=== PATIENT | male | born 1985 | race Caucasian/White ===

== ENCOUNTER → 2018-01-16 | Outpatient (CLI) | payer OTHER ==
--- NOTE | 2018-01-16 12:48 | DIAGNOSTIC IMAGING REPORT ---
VIDEO SWALLOW CLINICAL HISTORY: 32 years-old Male presenting with AMYOTROPHIC LATERAL SCLEROSIS. TECHNIQUE: Video fluoroscopic evaluation of swallowing was performed in the AP and lateral projections in conjunction with speech pathology. The patient was administered various textures, including nectar-thick and thin liquid barium, a barium coated wafer, and barium pudding. COMPARISON: . FINDINGS: There is normal hyoid excursion and epiglottic deflection. No significant penetration or aspiration identified. Swallowing function is within normal limits. Small amount of residual noted in the valleculae and piriform sinuses with solids. Fluoroscopy dosage (mGy): Not available. Fluoroscopy time: 1.3 minutes. Number of fluoroscopic spot images: 0. IMPRESSION: 1. No aspiration identified. 2. Please see the speech pathologist report for detailed findings and recommendations. Electronically signed by: Martinez Sullivan M.D. 01/16/2018 12:46 PM Dictated Date/Time: 01/16/2018 12:44 PM
--- NOTE | 2018-01-16 18:36 | SWALLOWING EVALUATION ---
REFERRING SPEECH PATHOLOGIST: n/a HISTORY: This 32 year-old man was referred for a VFSS at [facility] in order to address c/o solid food dysphagia. The patient has a PMH significant for ALS. Currently the patient's diet level is regular. PROCEDURE: The patient was seen in the Radiology Department of [facility] for the VFSS. Cursory examination of the oral cavity revealed adequate dentition. Movement of the articulators was WNL. Pt had shortened length of utterance due to poor breath support, but was fully intelligible. The patient was seated upright in his motorized wheelchair and was viewed in the lateral plane. He was given the following boluses: 1 tsp. thin liquid barium x 2, single swallow thin liquid barium self-presented from a straw, sequential swallows of thin liquid barium self-presented from a straw, 1 tsp. nectar-thick liquid barium, single swallow nectar-thick liquid barium self-presented from a straw, 1 tsp. barium pudding, and 1 club cracker with barium pudding. RESULTS: Oral Stage: Labial seal, lingual control for oral bolus hold, and mastication were complete/WNL. There was delay in initiating lingual motion for posterior bolus transfer. No oral bolus retention. Pharyngeal swallow was initiated when the bolus head was at the posterior angle of the ramus. No significant oral-stage dysphagia, but onset of some loss of lingual control was evident. Pharyngeal Stage: No bolus between soft palate and pharyngeal wall. Laryngeal elevation, epiglottic inversion, and laryngeal vestibular closure were complete. Anterior hyoid excursion was considered partial. Diminished pharyngeal stripping wave. Incomplete distention and duration of PES opening with partial obstruction of flow. Wide band of contrast between tongue base and pharyngeal wall. Pharyngeal retention in the hypopharynx after swallowing the cracker bolus with greater than half of the bolus being retained and requiring several attempts at swallowing to clear. The patient did this independently (did not require cuing). There was no penetration or aspiration during this study. Incomplete hyoid excursion combined with weak tongue base retraction impacted the patient's ability to swallow solid/more viscous foods. SUMMARY/RECOMMENDATIONS: This patient presents with mild oral-pharyngeal dysphagia. The following is recommended: 1. Diet as tolerated. Consider choosing more slippery foods vs. foods that are dry/thick/doughy. 2. Consideration of f/u with [facility] services for dysphagia therapy. Therapy should focus on pharyngeal strengthening, effortful swallowing, and all treatments that would work toward slowing the rate of impact ALS is having on swallowing safety. A summary of the results and recommendations was discussed with the patient immediately following the study. He is very motivated to do all activities that may slow the progress of his disease process. For that reason he is an excellent therapy candidate either via outpatient treatment or home health. Thank you for referral of this patient. Please contact me at if any additional information is needed.
== END | disposition home or self-care (01) ==
LOC: C.RAD 12:02
PROVIDERS: ATTEND Nurse Practitioner
DX: G12.21 Amyotrophic lateral sclerosis (principal)

== ENCOUNTER 2020-01-05 12:20 | Inpatient (IN) ==
[2020-01-05 13:20] LABS: Basophils # (auto) 0.01 K/uL (0-0.2); Eosinophils # (auto) 0.15 K/uL (0-0.5); Eosinophils % (auto) 0.7 %; Hematocrit (blood only) 41.2 % (42-52); Hemoglobin 13.7 g/dL (14.0-18.0); Immature Granulocytes # (auto) 0.05 K/uL (0.00-0.02); Immature Granulocytes % (auto) 0.2 %; Lymphocytes # (auto) 1.77 K/uL (1.2-3.4); Lymphocytes % (auto) 8.3 %; Mean Corpuscular Hemoglobin 28.7 pg (25-34); Mean Corpuscular Hgb Conc 33.3 g/dL (32-36); Mean Corpuscular Volume 86.2 fL (80-100); Mean Platelet Volume 9.1 fL (7.4-10.4); Monocytes % (auto) 5.6 %; Neutrophils # (auto) 18.14 K/uL (1.4-6.5); Neutrophils % (auto) 85.2 %; Platelet Count 409 K/uL (130-400); RDW Coefficient of Variation 15.4 % (11.5-14.5); RDW Standard Deviation 48.7 fL (36.4-46.3); Red Blood Count 4.78 M/uL (4.7-6.1); White Blood Count 21.32 K/uL (4.8-10.8)
[2020-01-05 13:34] LABS: Alanine Aminotransferase 25 U/L (12-78); Albumin Level 3.3 gm/dl (3.4-5.0); Aspartate Aminotransferase 12 U/L (15-37); Blood Urea Nitrogen 12 mg/dl (7-18); Calcium 9.4 mg/dl (8.5-10.1); Carbon Dioxide 23 mmol/L (21-32); Chloride 105 mmol/L (98-107); Creatinine Clr Calc Pharmacy 554.3 ml/min; Est GFR (African American) > 150.0; Est GFR (Non-African American) > 150.0; Glucose 87 mg/dl (70-99); Potassium 3.4 mmol/L (3.5-5.1); Sodium 136 mmol/L (136-145)
[2020-01-05 13:38] LABS: Albumin Globulin Ratio 0.6 (0.9-2); Alkaline Phosphatase 69 U/L (45-117); Bilirubin,Total 0.5 mg/dl (0.2-1); Globulin 5.2 gm/dl (2.5-4.0); NT Pro B Type Natriuretic Pept 71 pg/ml (0-450); Total Protein 8.5 gm/dl (6.4-8.2); Troponin I < 0.015 ng/ml (0-0.045)
[2020-01-05 13:57] LABS: Influenza A virus by PCR Neg for Influ A (Neg); Influenza B virus by PCR Neg for Influ B (Neg)
[2020-01-05] MEDS ORDERED: PIPERACILL/TAZOBAC CONSULT ACTIVE PRN ×2 (14:04→16:06)
[2020-01-05] MEDS ORDERED: PIPERACILLIN/TAZOBACTAM 4.5 GM/120 ML BAG IV ONE (14:04)
--- NOTE | 2020-01-05 14:49 | XRay Report ---
XR chest 1V portable CLINICAL HISTORY: Shortness of breath. COMPARISON STUDY: No previous studies for comparison. FINDINGS: Lung volumes are normal. There is no pneumothorax. No definite pleural effusion is noted. L eft basilar consolidation is present. There is also right basilar opacity. There is minimal left midl gudelia opacity. There is no evidence for pulmonary edema. Cardiac size is normal. IMPRESSION: Bibasilar airspace opacities, greater on the left. The findings favor pneumonia or aspir ation pneumonitis. Atelectasis could appear similar but is considered less likely. Radiographic follo w-up is recommended. ACT 112: Negative or not required by law. Electronically signed by: Karl Jacinto M.D. 01/05/2020 2:47 PM
[2020-01-05] MEDS ORDERED: CEFEPIME 2,000 MG/20 ML VIAL IV STA (14:55)
[2020-01-05] MEDS ORDERED: ACETAMINOPHEN 1,000 MG/100 ML VIAL IV STA (14:55)
[2020-01-05] MEDS ORDERED: AZITHROMYCIN 500 MG in DEXTROSE 5% 250 ML IV STA (14:55)
--- NOTE | 2020-01-05 16:07 | Electrocardiogram Report ---
Test Reason : Blood Pressure : / mmHG Vent. Rate : 096 BPM Atrial Rate : 096 BPM P-R Int : 120 ms QRS Dur : 104 ms QT Int : 350 ms P-R-T Axes : 025 031 080 degrees QTc Int : 442 ms Normal sinus rhythm Early repolarization Normal ECG No previous ECGs available Confirmed by José Sol ([id number]) on 01/05/2020 4:07:29 PM Referred By: Confirmed By:José Sol
--- NOTE | 2020-01-05 16:29 | History & Physical Report ---
Date of Service January 05, 2020 Assessment & Plan (1) Pneumonia: Admitted with cough, sputum production and shortness of breath Elevated white count of 21,000 and chest x-ray evidence of bibasilar pneumonia Likely aspiration pneumonia but could be community-acquired as well He refused blood culture but sputum culture was sent Started with intravenous azithromycin and Zosyn Continue with his usual nebulized bronchodilators No steroid We will need periodic suctioning of sputum Will need follow-up x-ray for clearance (2) Dyspnea: Secondary to pneumonia (3) PEG (percutaneous endoscopic gastrostomy) adjustment/replacement/removal: History of dysphagia Status post PEG tube placement on 07/22/2018 He continues to eat orally at times Speech eval (4) ALS (amyotrophic lateral sclerosis): Diagnosed with a child and has been progressing Quadriplegia , complete bedbound Sleep apnea Uses his own CPAP DVT prophylaxis Subcu heparin CODE STATUS Full History of Present Illness Chief Complaint: Cough with phlegm for the last 7 days and increasing shortness of breath for 2 days Primary Care Provider: Leilani Butler Is a 34-year-old male with progressive ALS and has a PEG tube for feeding apparently noted to have cough with sputum production for the last 1 week. He has been complaining of more shortness of breath for the last 2 days. Has had increased temperature yesterday but was not documented. No chills noted. His condition has been getting worse and he was advised to come to the emergency room for further evaluation. He complains today of some pain in the lower chest milner with coughing but denies any abdominal pain nausea or vomiting. He gets tube feeding but also eats whenever he can. He is quadriplegic from ALS. He was noted to be afebrile in the emergency room with a very high white count of 21,000 and chest x-ray showed bibasilar infiltration more on the left than the right. He refused to have blood culture but he was started with intravenous Zosyn and azithromycin and was admitted to medical telemetry unit for continuation of care. Allergies Allergy/AdvReac Type Severity Reaction Status Date / Time No Known Allergies Allergy Verified 01/05/20 13:14 Home Medications Home Medications Medication Instructions Recorded Confirmed Type Pulmocare 1 ea FEEDING TUBE BID 12/02/19 01/05/20 History cholecalciferol (vitamin D3) 1,000 unit PO BID 12/02/19 01/05/20 History [Vitamin D3] coenzyme Q10 [Co Q-10] 400 mg PO QAM 12/02/19 01/05/20 History guaifenesin 1,200 mg PO BID 12/02/19 01/05/20 History ipratropium bromide 2 spray INTRANASAL BID 12/02/19 01/05/20 History lysine 1,000 mg PO QAM 12/02/19 01/05/20 History riluzole 50 mg PO Q12 12/02/19 01/05/20 History acetaminophen 325 mg PO QID PRN 01/05/20 01/05/20 History albuterol sulfate 1 inh INHALATION TID PRN 01/05/20 01/05/20 History albuterol sulfate 2.5 mg INHALATION QID PRN 01/05/20 01/05/20 History artificial tears(hypromellose) 1 drp OPHTHALMIC (EYE) BID PRN 01/05/20 01/05/20 History coenzyme Q10 400 mg PO DAILY 01/05/20 01/05/20 History cranberry 500 mg PO DAILY 01/05/20 01/05/20 History esfizmqbicv-EoIn-qsc A-D-aloe [A 1 applic TOPICAL BID 01/05/20 01/05/20 History and D Diaper Rash Cream] hydrocortisone 1 applic TOPICAL BID PRN 01/05/20 01/05/20 History hydrocortisone 1 applic TOPICAL BID PRN 01/05/20 01/05/20 History nut.tx,spec.frm,l-fr,iron-fos 1 ea FEEDING TUBE DAILY 01/05/20 01/05/20 History [TwoCal HN] nystatin 1 applic TOPICAL BID 01/05/20 01/05/20 History nystatin 1 applic TOPICAL BID 01/05/20 01/05/20 History omega 5-ljy-mae-fish oil 2 cap PO BID 01/05/20 01/05/20 History polyethylene glycol 3350 17 g PO DAILY 01/05/20 01/05/20 History zinc oxide 1 applic TOPICAL DAILY PRN 01/05/20 01/05/20 History Past Med/Surg History Medical History ALS (amyotrophic lateral sclerosis) DX FEBRUARY 2014 Anxiety "TRANSITIONAL ADJUSTMENT" FOLLOWS COUNSELOR Cardiac murmur AN Dry eye syndrome Sleep apnea USES APAP DEVICE (DX WITH ALS) Slow gastric motility D/T ALS Uses feeding tube FLUSHES DAILY (NO CURRENT USE FOR FEEDING) Surgical History History of herniorrhaphy History of tooth extraction S/P percutaneous endoscopic gastrostomy (PEG) tube placement Family History Mother Family history of diabetes mellitus Social History Preferred Language: Vincentian Communication Ability: Impaired Chainer Required: No Beliefs That Will Affect Care: None Current Living Situation: Spouse Feels Safe at Home: Yes Smoking Status: Never smoker Second Hand Exposure: No ; Hx Alcohol Use: Yes Alcohol type: beer Hx Substance Use: No Review of Systems Review of Systems: All systems reviewed & are unremarkable except as noted in HPI & below Physical Exam Physical Exam: Lying in bed with moderate distress due to shortness of breath and cough Constitutional: well developed, well nourished, + acute distress (Due to shortness of breath), + ill appearing and + obese Eyes: PERRL, conjunctivae normal, anicteric sclerae ENMT: external ear and nose normal, oropharynx normal Neck: trachea midline, no thyromegaly Respiratory: + respiratory distress and + uses accessory muscles Auscultation: + diminished lung sounds and + crackles (Bibasally more on the left than the right) Cardiovascular: Rate/Rhythm: regular rate and regular rhythm Heart Sounds: no murmur Gastrointestinal (Abdomen): Inspection/Auscultation: abdomen normal to inspection and normal bowel sounds PEG tube site is unremarkable Musculoskeletal: No acute arthritis involving any joint Neurologic: Alert, awake and oriented x3, has ALS and is bedbound with quadriplegia Lymphatic: no cervical or axillary lymphadenopathy Results & Data Vital Signs (Past 12 Hours) Vital Signs Temp Pulse Pulse Resp BP BP Pulse Ox 01/05/20 15:47 93 H 18 93/65 L 97 01/05/20 14:11 101 H 16 113/76 96 01/05/20 12:38 37.1 C 100 H 24 119/85 3 L Laboratory Results Short CBC 01/05/20 Range/Units 13:05 WBC 21.32 H (4.8-10.8) K/uL Hgb 13.7 L (14.0-18.0) g/dL Hct 41.2 L (42-52) % Plt Count 409 H (130-400) K/uL BMP 01/05/20 13:05 Sodium 136 Potassium 3.4 L Chloride 105 Carbon Dioxide 23 BUN 12 Creatinine 0.21 L Glucose 87 Calcium 9.4 Cardiac Enzymes 01/05/20 Range/Units 13:05 Troponin I < 0.015 (0-0.045) ng/ml Liver Function 01/05/20 Range/Units 13:05 Total Bilirubin 0.5 (0.2-1) mg/dl AST 12 L (15-37) U/L ALT 25 (12-78) U/L Alkaline Phosphatase 69 (45-117) U/L Albumin 3.3 L (3.4-5.0) gm/dl Medications Administered Current Inpatient Medications Heparin Sodium (Porcine) (Heparin Sodium (Porcine)) 5,000 units SQ Q12 [facility] Stop: 02/04/20 20:59 Azithromycin 500 mg/ Dextrose 255 mls @ 127.5 mls/hr IV NOW STA Stop: 01/05/20 16:54 Last Admin: 01/05/20 15:34 Dose: 127.5 mls/hr Documented by: Piperacillin Sod/Tazobactam Sod (Zosyn) 4.5 gm in 120 mls @ 240 mls/hr IV Q8H [facility] Stop: 01/12/20 16:14 Azithromycin 500 mg/ Dextrose 255 mls @ 125 mls/hr IV DAILY [facility] Stop: 01/13/20 08:59 Miscellaneous Information (Consult) 1 ea N/A UD PRN PRN Reason: Consult Stop: 02/04/20 16:05 Code Status & VTE Plan VTE Prophylaxis Plan VTE Prophylaxis will be ordered: Yes (1) Dyspnea Dyspnea type: unspecified Qualified Code(s): R06.00 - Dyspnea, unspecified (2) Pneumonia Laterality: left Lung location: unspecified part of lung Pneumonia type: due to unspecified organism Qualified Code(s): J18.9 - Pneumonia, unspecified organism
[2020-01-05] MEDS ORDERED: FAMOTIDINE 20MG/5ML IV PUSH IV STA (17:25)
[2020-01-05] MEDS ORDERED: DiphenhydrAMINE HCL 50 MG/ML VIAL IV STA (17:25)
[2020-01-05] MEDS ORDERED: methylPREDNISolone 125 MG/2 ML VIAL IV STA (17:25)
[2020-01-05] MEDS ORDERED: PIPERACILLIN/TAZOBACTAM 4.5 GM/120ML D5W ONE (17:34)
[2020-01-05] MEDS ORDERED: ACETAMINOPHEN 325 MG TAB PO PRN (19:15)
[2020-01-05] MEDS ORDERED: ALBUTEROL HFA 8 GM INHALER INH PRN (19:15)
[2020-01-05] MEDS ORDERED: HYDROCORTISONE 2.5% CR 30 GM TUBE EXT PRN (19:15)
[2020-01-05] MEDS ORDERED: HYDROCORTISONE TOP PRN (19:15)
[2020-01-05] MEDS ORDERED: ARTIFICIAL TEARS OP PRN (19:23)
[2020-01-05] MEDS ORDERED: OMEGA-3 (PURIFIED FISH OIL) 1 GM CAP PO SCH (19:45)
[2020-01-05] MEDS ORDERED: BUTT PASTE (ZINC OXIDE 16%) 171 APPLN/57 GM JAR EXT PRN (19:47)
[2020-01-05] MEDS: PIPERACILLIN/TAZOBACTAM 3.375 GM/115 ML BAG IV SCH (20:25)
[2020-01-05] MEDS ORDERED: NUTRITIONAL SUPPLEMENT feeding tube SCH (21:00)
[2020-01-05] MEDS ORDERED: APPL TOP SCH (21:00)
[2020-01-05] MEDS ORDERED: [UNRECOGNIZED DRUG - OTHER] TOP SCH (21:00)
[2020-01-05] MEDS: guaiFENesin 600 MG TABCR PO SCH (21:34)
[2020-01-05] MEDS: CHOLECALCIFEROL 1,000 UNITS 25 MCG TAB PO SCH (21:34)
[2020-01-05] MEDS: IPRATROPIUM BROMIDE NASAL SPRAY 0.06% 15ML NAE SCH (21:37)
[2020-01-05] MEDS: HEPARIN SOD 5,000 UNIT/0.5 ML VIAL SQ SCH (21:46)
[2020-01-05] MEDS: NYSTATIN POWDER 15GM BTL EXT SCH (21:46)
[2020-01-05] MEDS: OMEGA-3 (PURIFIED FISH OIL) 1 GM CAP PO SCH (21:49)
[2020-01-05] MEDS ORDERED: Nursing to Pharmacy Communication ONE (22:04)
[2020-01-06] MEDS: PIPERACILLIN/TAZOBACTAM 3.375 GM/115 ML BAG IV SCH (04:47)
[2020-01-06] MEDS: guaiFENesin SUGAR FREE 200 MG/10 ML UDC PO SCH ×3 (05:58→17:30)
[2020-01-06] MEDS: ALBUTEROL 0.083% NEBU SOLN 3 ML VIAL INH PRN (06:16)
[2020-01-06 06:29] LABS: Hematocrit (blood only) 39.5 % (42-52); Hemoglobin 13.2 g/dL (14.0-18.0); Immature Granulocytes # (auto) 0.02 K/uL (0.00-0.02); Immature Granulocytes % (auto) 0.2 %; Lymphocytes # (auto) 1.19 K/uL (1.2-3.4); Lymphocytes % (auto) 14.5 %; Mean Corpuscular Hemoglobin 28.9 pg (25-34); Mean Corpuscular Hgb Conc 33.4 g/dL (32-36); Mean Corpuscular Volume 86.4 fL (80-100); Mean Platelet Volume 9.3 fL (7.4-10.4); Monocytes # (auto) 0.19 K/uL (0.11-0.59); Monocytes % (auto) 2.3 %; Neutrophils # (auto) 6.83 K/uL (1.4-6.5); Platelet Count 400 K/uL (130-400); RDW Coefficient of Variation 15.3 % (11.5-14.5); RDW Standard Deviation 48.6 fL (36.4-46.3); Red Blood Count 4.57 M/uL (4.7-6.1); White Blood Count 8.23 K/uL (4.8-10.8)
[2020-01-06 07:08] LABS: Alanine Aminotransferase 25 U/L (12-78); Albumin Level 3.3 gm/dl (3.4-5.0); Aspartate Aminotransferase 8 U/L (15-37); BUN Creatinine Ratio 47.1 (10-20); Blood Urea Nitrogen 13 mg/dl (7-18); Calcium 9.7 mg/dl (8.5-10.1); Carbon Dioxide 24 mmol/L (21-32); Chloride 105 mmol/L (98-107); Creatinine Clr Calc Pharmacy 431.1 ml/min; Est GFR (African American) > 150.0; Est GFR (Non-African American) > 150.0; Glucose 144 mg/dl (70-99); Magnesium 2.5 mg/dl (1.8-2.4); Potassium 3.7 mmol/L (3.5-5.1); Sodium 137 mmol/L (136-145)
[2020-01-06 07:11] LABS: Albumin Globulin Ratio 0.6 (0.9-2); Alkaline Phosphatase 64 U/L (45-117); Bilirubin,Total 0.5 mg/dl (0.2-1); Globulin 5.3 gm/dl (2.5-4.0); Phosphorus 3.4 mg/dl (2.5-4.9); Total Protein 8.6 gm/dl (6.4-8.2)
[2020-01-06] MEDS: IPRATROPIUM BROMIDE NASAL SPRAY 0.06% 15ML NAE SCH ×2 (08:28→20:32)
[2020-01-06] MEDS: POLYETHYLENE (MIRALAX) 17 GM PACK PO SCH (08:28)
[2020-01-06] MEDS: CHOLECALCIFEROL 1,000 UNITS 25 MCG TAB PO SCH ×2 (08:29→20:32)
[2020-01-06] MEDS: OMEGA-3 (PURIFIED FISH OIL) 1 GM CAP PO SCH ×2 (08:30→20:32)
[2020-01-06] MEDS: HEPARIN SOD 5,000 UNIT/0.5 ML VIAL SQ SCH ×2 (08:31→20:33)
[2020-01-06] MEDS: NYSTATIN POWDER 15GM BTL EXT SCH ×2 (08:32→20:33)
[2020-01-06] MEDS ORDERED: NON-FORMULARY MEDICATION (Coenzyme Q10 400 MG) PO SCH (09:00)
[2020-01-06] MEDS ORDERED: NON-FORMULARY MEDICATION (Lysine 1,000 MG) PO SCH (09:00)
[2020-01-06] MEDS ORDERED: NON-FORMULARY MEDICATION (Coenzyme Q10 [Co Q-10] 400 MG) PO SCH (09:00)
[2020-01-06] MEDS ORDERED: NON-FORMULARY MEDICATION (Cranberry 500 MG) PO SCH (09:00)
[2020-01-06] MEDS ORDERED: [UNRECOGNIZED DRUG - OTHER] feeding tube SCH (09:00)
[2020-01-06] MEDS: guaiFENesin 600 MG TABCR PO SCH ×2 (09:02→20:33)
[2020-01-06] MEDS ORDERED: cefTRIAXone SODIUM 2,000 MG in DEXTROSE 5% 50 ML IV SCH (10:00)
--- NOTE | 2020-01-06 14:39 | Hospitalist Progress Note ---
Date of Service January 06, 2020 Assessment & Plan (1) Pneumonia: Leukocytosis resolved overnight. Afebrile and clinically feels better, abx changed to Rocephin and Azithro. No blood cultures, sputum culture negative. Per Speech needs a video swallow study. Plan to de-escalate abx in am if he is still doing well. Cont periodic suctioning as needed. Cont with usual nebulized bronchodilators. CXR in 4-6 weeks to ensure complete resolution. (2) Dyspnea: Secondary to pneumonia-improved today per patient who is on his baseline supplemental oxygen. (3) PEG (percutaneous endoscopic gastrostomy) adjustment/replacement/removal: History of dysphagia 2/2 ALS Status post PEG tube placement on 07/22/2018 He continues to eat orally at times Speech eval recommends video swallow study-to be performed tomorrow. (4) ALS (amyotrophic lateral sclerosis): Quadriplegic, will discuss if home support is appropriate with other members of the care team, including Case Management. (5) DVT prophylaxis: Heparin Full Code Dispo-likely to home in next 1-2 days. Shanti Vick DO [facility] Hospitalist Admission and Anticipated Discharge Date Admission Date: January 05, 2020 Anticipated date of discharge: 01/07/20 Subjective Feels better than yesterday Quadriplegic but able to speak. Wears a nasal CPAP continuously with supplemental in order to breathe Appears to be in good spirits Afebrile, no chills, tolerating PO I discussed the nutrition status with the agricultural loan officer, who requested information regarding supplemental compatibility with his PEG Review of Systems Review of Systems: All systems reviewed & are unremarkable except as noted in Subjective Physical Exam Physical Exam: CONSTITUTIONAL: WNWD, vitals as above, generally well- appearing, quadriplegic EYES: pupils are equal and round bilaterally, normal conjunctivae, no scleral icterus ENT: external ear and nose normal, MMM, nasal CPAP in place RESPIRATORY: clear to auscultation bilaterally, no crackles, rales or wheezes, normal respiratory effort at rest CARDIOVASCULAR: regular rate and rhythm, S1 and 2 heard without murmurs, gallops or rubs, no JVD, no peripheral edema GASTROINTESTINAL: soft, nontender, nontender MUSCULOSKELETAL: head is NC/AT, quadriplegic SKIN: warm and dry NEUROLOGIC: CN 2-12 grossly intact, normal cognition and speech but has conversational dyspnea. PSYCHIATRIC: alert cooperative and oriented to person, place and time. Euthymic mood, makes good eye contact, language grossly intact Results & Data ([facility]) Vital Signs (Past 12 Hours) Vital Signs Temp Pulse Pulse Resp BP Pulse Ox 01/06/20 11:25 36.7 C 79 20 119/77 97 01/06/20 07:38 88 01/06/20 07:13 36.7 C 72 18 111/74 97 01/06/20 06:17 68 18 96 01/06/20 03:36 36.3 C L 56 L 18 110/75 97 Laboratory Results Short CBC 01/06/20 Range/Units 06:03 WBC 8.23 D (4.8-10.8) K/uL Hgb 13.2 L (14.0-18.0) g/dL Hct 39.5 L (42-52) % Plt Count 400 (130-400) K/uL BMP 01/06/20 06:03 Sodium 137 Potassium 3.7 Chloride 105 Carbon Dioxide 24 BUN 13 Creatinine 0.27 L Glucose 144 H Calcium 9.7 Liver Function 01/06/20 Range/Units 06:03 Total Bilirubin 0.5 (0.2-1) mg/dl AST 8 L (15-37) U/L ALT 25 (12-78) U/L Alkaline Phosphatase 64 (45-117) U/L Albumin 3.3 L (3.4-5.0) gm/dl Medications Administered Current Inpatient Medications Acetaminophen (Tylenol) 325 mg PO QID PRN PRN Reason: Pain Stop: 02/04/20 19:14 Albuterol (Ventolin 0.083% 2.5mg/3ml) 2.5 mg INH QID PRN PRN Reason: Shortness Of Breath Stop: 02/04/20 19:14 Last Admin: 01/06/20 06:16 Dose: 2.5 mg Documented by: Albuterol (Ventolin Hfa) 1 puffs INH TID PRN PRN Reason: Shortness Of Breath Stop: 02/04/20 19:14 Artificial Tears (Artificial Tears) 1 drops OP BID PRN PRN Reason: DRY EYES Stop: 02/04/20 19:22 Fish Oil ([place]-3 (Purified Fish Oil)) 2 gm PO BID [facility] Stop: 02/04/20 20:59 Last Admin: 01/06/20 08:30 Dose: 2 gm Documented by: Guaifenesin (Mucinex) 1,200 mg PO BID [facility] Stop: 02/04/20 20:59 Last Admin: 01/06/20 09:02 Dose: Not Given Documented by: Guaifenesin (Robitussin Sugar Free) 200 mg PO Q6 [facility] Stop: 02/05/20 05:59 Last Admin: 01/06/20 12:31 Dose: 200 mg Documented by: Heparin Sodium (Porcine) (Heparin Sodium (Porcine)) 5,000 units SQ Q12 [facility] Stop: 02/04/20 20:59 Last Admin: 01/06/20 08:31 Dose: Not Given Documented by: Hydrocortisone (Hydrocortisone 2.5%) 1 appln EXT BID PRN PRN Reason: Itching Stop: 02/04/20 19:14 Azithromycin 500 mg/ Dextrose 255 mls @ 125 mls/hr IV DAILY@1500 [facility] Stop: 01/11/20 17:03 Last Admin: 01/06/20 14:35 Dose: 125 mls/hr Documented by: Ceftriaxone Sodium 2,000 mg/ (Dextrose) 70 mls @ 100 mls/hr IV Q24H [facility]; Protocol Stop: 01/13/20 09:59 Last Infusion: 01/06/20 10:50 Dose: Infused Documented by: Ipratropium [place] (Atrovent Nasal [place] 0.06%) 2 sprays GARCIA BID [facility] Stop: 02/04/20 20:59 Last Admin: 01/06/20 08:28 Dose: 2 sprays Documented by: Miscellaneous (Order Awaiting Action) 1 ea N/A QS [facility] Stop: 02/05/20 00:00 Last Admin: 01/06/20 08:27 Dose: Not Given Documented by: Nystatin (Mycostatin) 1 appln EXT BID [facility] Stop: 02/04/20 20:59 Last Admin: 01/06/20 08:32 Dose: Not Given Documented by: Petrolatum (Butt Paste) 1 appln EXT DAILY PRN PRN Reason: IRRITATED SKIN Stop: 02/04/20 19:46 Polyethylene Glycol (Miralax Powder Packet) 17 gm PO DAILY [facility] Stop: 02/05/20 08:59 Last Admin: 01/06/20 08:28 Dose: Not Given Documented by: Vitamin D (Vitamin D3) 1,000 units PO BID [facility] Stop: 02/04/20 20:59 Last Admin: 01/06/20 08:29 Dose: 1,000 units Documented by: (1) Dyspnea Dyspnea type: unspecified Qualified Code(s): R06.00 - Dyspnea, unspecified (2) Pneumonia Laterality: left Lung location: unspecified part of lung Pneumonia type: due to unspecified organism Qualified Code(s): J18.9 - Pneumonia, unspecified organism
[2020-01-06] MEDS ORDERED: AZITHROMYCIN 500 MG in DEXTROSE 5% 250 ML IV SCH (15:00)
--- NOTE | 2020-01-06 17:09 | Emergency Department Note ---
Entered by Adela Britton acting as a scribe for History of Present Illness General Chief complaint: Shortness of Breath/Dyspnea Stated complaint: Increased shortness of breath Time Seen by Provider: 01/05/20 12:35 Source: patient and family Mode of arrival: EMS History of Present Illness Onset (ago): week(s) 1 Location: left (lung) and right (lung) Severity: similar to prior episodes Pain Consistency: + other (worsening) Quality: + other (shortness of breath) Exacerbated By: + other (lying flat) Associated symptoms: + shortness of breath and + other (Positive cold symptoms, yellow gray colored mucous, dark colored urine. Negative abnormal bowel movements. ) Treatments prior to arrival: other (supplemental oxygen) The patient is a 34 year old male presenting to the Emergency Department via EMS complaining of worsening shortness of breath starting 1 week ago. The patients family reports that the patient has ALS and has been experiencing worsening shortness of breath. They state that the patient has had cold symptoms and has been producing a yellowish gray colored mucous that they suction out. They explain that they have been suctioning out more mucous than normal. The note that the patient was hot yesterday but that they didnt take his temperature. They add that the patients urine has been dark colored but that it is normally dark. The patients family reports that the patient is supposed to be on 3L of oxygen daily but that he sometimes doesnt use it. They state that when the patient lies flat his shortness of breath worsens. They note that the patient has a bedsore on his back. They add that the patient recently went to [place] and has been exposed to sick individuals recently. The family denies abnormal bowel movements and chest pain. Patient has airway and suctioning adjuncts at home with the is familiar and competent with and they have been continuing that vigorously since his symptoms started. Home Medications Home Medications Medication Instructions Recorded Confirmed Type [facility] 1 ea FEEDING TUBE BID 12/02/19 01/05/20 History cholecalciferol (vitamin D3) 1,000 unit PO BID 12/02/19 01/05/20 History [Vitamin D3] coenzyme Q10 [Co Q-10] 400 mg PO QAM 12/02/19 01/05/20 History guaifenesin 1,200 mg PO BID 12/02/19 01/05/20 History ipratropium bromide 2 spray INTRANASAL BID 12/02/19 01/05/20 History lysine 1,000 mg PO QAM 12/02/19 01/05/20 History riluzole 50 mg PO Q12 12/02/19 01/05/20 History acetaminophen 325 mg PO QID PRN 01/05/20 01/05/20 History albuterol sulfate 1 inh INHALATION TID PRN 01/05/20 01/05/20 History albuterol sulfate 2.5 mg INHALATION QID PRN 01/05/20 01/05/20 History artificial tears(hypromellose) 1 drp OPHTHALMIC (EYE) BID PRN 01/05/20 01/05/20 History coenzyme Q10 400 mg PO DAILY 01/05/20 01/05/20 History cranberry 500 mg PO DAILY 01/05/20 01/05/20 History rddkgihgdzn-RzPt-txu A-D-aloe [A 1 applic TOPICAL BID 01/05/20 01/05/20 History and D Diaper Rash Cream] hydrocortisone 1 applic TOPICAL BID PRN 01/05/20 01/05/20 History hydrocortisone 1 applic TOPICAL BID PRN 01/05/20 01/05/20 History nut.tx,spec.frm,l-fr,iron-fos 1 ea FEEDING TUBE DAILY 01/05/20 01/05/20 History [TwoCal HN] nystatin 1 applic TOPICAL BID 01/05/20 01/05/20 History nystatin 1 applic TOPICAL BID 01/05/20 01/05/20 History omega 2-qfs-xjq-fish oil 2 cap PO BID 01/05/20 01/05/20 History polyethylene glycol 3350 17 g PO DAILY 01/05/20 01/05/20 History zinc oxide 1 applic TOPICAL DAILY PRN 01/05/20 01/05/20 History Allergies Allergy/AdvReac Type Severity Reaction Status Date / Time No Known Allergies Allergy Verified 01/05/20 13:14 Past Med/Surg History Medical History ALS (amyotrophic lateral sclerosis) DX FEBRUARY 2014 Anxiety "TRANSITIONAL ADJUSTMENT" FOLLOWS COUNSELOR Cardiac murmur AN INFANT Dry eye syndrome Sleep apnea USES APAP DEVICE (DX WITH ALS) Slow gastric motility D/T ALS Uses feeding tube FLUSHES DAILY (NO CURRENT USE FOR FEEDING) Surgical History History of herniorrhaphy History of tooth extraction S/P percutaneous endoscopic gastrostomy (PEG) tube placement Family History Mother Family history of diabetes mellitus Social History Preferred Language: Serbian Communication Ability: Effective Theatre Instructor Required: No Beliefs That Will Affect Care: None Current Living Situation: Spouse and Other Current Living Situation Comment: primary animal care provider with aids to help AM and PM care Feels Safe at Home: Yes Safety Concerns: Feels Safe At This Time Smoking Status: Never smoker Second Hand Exposure: No ; Hx Alcohol Use: No Hx Substance Use: No Review of Systems See HPI for pertinent positives & negatives. and A total of 10 systems reviewed and were otherwise negative Physical Exam Vital Signs Vital Signs - 24 hr 01/05/20 12:38 01/05/20 12:52 01/05/20 14:11 Temperature 98.8 F Temperature Source Oral Pulse Rate 100 H Pulse Rate [Left Finger] 101 H Respiratory Rate 24 16 Respiratory Effort / Characteristics Spontaneous Respiratory Depth Normal Respiratory Pattern Regular Blood Pressure 119/85 Blood Pressure [Left Arm] 113/76 Blood Pressure Mean 96 Blood Pressure Mean [Left Arm] 88 Blood Pressure Position Lying Pulse Oximetry 3 L 96 Oxygen Delivery Method Nasal Cannula Nasal Cannula BiPAP Oxygen Flow Rate 3 3 3 Sepsis Recent Fever Within 48 Hours No Sepsis New/Unexplained Change in Mental Status No Sepsis Action Taken by Nursing No Action Required GENERAL: Large face mask in place attached to oxygen. Alert, no distress, non- toxic EYE EXAM: normal conjunctiva, PERRL and EOM's grossly intact OROPHARYNX: no exudate, no erythema, lips, buccal mucosa, and tongue normal and mucous membranes are moist NECK: supple, no nuchal rigidity, no adenopathy, non-tender LUNGS: Decreased breath sounds. No wheezes, rhonchi or rales. Normal chest wall mechanics HEART: no murmurs, S1 normal and S2 normal ABDOMEN: PEG tube in place, well appearing. No surrounding erythema or drainage. Abdomen soft, non-tender, normo-active bowel sounds, no masses, no rebound or guarding. BACK: Back is symmetrical on inspection and there is no deformity, no midline tenderness, no CVA tenderness. SKIN: no rashes and no bruising EXTREMITIES: Atrophy of bilateral upper and lower extremities. Symmetric weakn ess of bilateral upper and lower extremities with minimal movement. Compression stocking in place to bilateral lower extremities. Extremities are grossly normal. No pitting edema. NEURO EXAM: Normal sensorium. Unable to perform additional assessment due to extensive upper and lower extremity weakness from ALS. No facial droop. states speech is normal. Course Course 1238: The patient was evaluated in room C3, and a complete history and physical examination were performed. 1436: I reevaluated the patient at this time. He had a vasovagal event while blood cultures were obtained. 1522: I discussed the patient's case with Kerry López PA-C. Dr. Bolivar [facility] will evaluate the patient for further management. Administered Medications Albuterol (Ventolin 0.083% 2.5mg/3ml) 2.5 mg INH QID PRN PRN Reason: Shortness Of Breath Stop: 02/04/20 19:14 Last Admin: 01/06/20 06:16 Dose: 2.5 mg Documented by: [id number] Fish Oil ([place]-3 (Purified Fish Oil)) 2 gm PO BID MYNOR Stop: 02/04/20 20:59 Last Admin: 01/06/20 08:30 Dose: 2 gm Documented by: [id number] Admin: 01/05/20 21:49 Dose: Not Given Documented by: [id number] Guaifenesin (Mucinex) 1,200 mg PO BID MYNOR Stop: 02/04/20 20:59 Last Admin: 01/06/20 09:02 Dose: Not Given Documented by: [id number] Admin: 01/05/20 21:34 Dose: 1,200 mg Documented by: [id number] Guaifenesin (Robitussin Sugar Free) 200 mg PO Q6 MYNOR Stop: 02/05/20 05:59 Last Admin: 01/06/20 12:31 Dose: 200 mg Documented by: [id number] Admin: 01/06/20 05:58 Dose: 200 mg Documented by: [id number] Heparin Sodium (Porcine) (Heparin Sodium (Porcine)) 5,000 units SQ Q12 MYNOR Stop: 02/04/20 20:59 Last Admin: 01/06/20 08:31 Dose: Not Given Documented by: [id number] Admin: 01/05/20 21:46 Dose: Not Given Documented by: [id number] Azithromycin 500 mg/ Dextrose 255 mls @ 125 mls/hr IV DAILY@1500 [facility] Stop: 01/11/20 17:03 Last Infusion: 01/06/20 16:47 Dose: 0 mls/hr Documented by: [id number] Admin: 01/06/20 14:35 Dose: 125 mls/hr Documented by: [id number] Ceftriaxone Sodium 2,000 mg/ (Dextrose) 70 mls @ 100 mls/hr IV Q24H [facility]; Protocol Stop: 01/13/20 09:59 Last Infusion: 01/06/20 10:50 Dose: 0 mls/hr Documented by: [id number] Admin: 01/06/20 09:55 Dose: 100 mls/hr Documented by: [id number] Ipratropium [place] (Atrovent Nasal [place] 0.06%) 2 sprays GARCIA BID [facility] Stop: 02/04/20 20:59 Last Admin: 01/06/20 08:28 Dose: 2 sprays Documented by: [id number] Admin: 01/05/20 21:37 Dose: 2 sprays Documented by: [id number] Miscellaneous (Order Awaiting Action) 1 ea N/A QS [facility] Stop: 02/05/20 00:00 Last Admin: 01/06/20 16:16 Dose: Not Given Documented by: [id number] Admin: 01/06/20 08:27 Dose: Not Given Documented by: [id number] Admin: 01/06/20 00:49 Dose: Not Given Documented by: [id number] Nystatin (Mycostatin) 1 appln EXT BID [facility] Stop: 02/04/20 20:59 Last Admin: 01/06/20 08:32 Dose: Not Given Documented by: [id number] Admin: 01/05/20 21:46 Dose: Not Given Documented by: [id number] Polyethylene Glycol (Miralax Powder Packet) 17 gm PO DAILY [facility] Stop: 02/05/20 08:59 Last Admin: 01/06/20 08:28 Dose: Not Given Documented by: [id number] Vitamin D (Vitamin D3) 1,000 units PO BID [facility] Stop: 02/04/20 20:59 Last Admin: 01/06/20 08:29 Dose: 1,000 units Documented by: [id number] Admin: 01/05/20 21:34 Dose: 1,000 units Documented by: [id number] Discontinued Medications Diphenhydramine HCl (Benadryl) 25 mg IV NOW STA Stop: 01/05/20 17:26 Last Admin: 01/05/20 17:35 Dose: 25 mg Documented by: [id number] Famotidine (Pepcid 20mg Iv Push) 20 mg IV ONE STA Stop: 01/05/20 17:26 Last Admin: 01/05/20 17:35 Dose: 20 mg Documented by: [id number] Piperacillin Sod/Tazobactam Sod (Zosyn) 4.5 gm in 120 mls @ 240 mls/hr IV NOW ONE Stop: 01/05/20 14:33 Last Infusion: 01/05/20 18:15 Dose: 0 mls/hr Documented by: [id number] Admin: 01/05/20 17:43 Dose: 240 mls/hr Documented by: [id number] Acetaminophen (Ofirmev) 1,000 mg in 100 mls @ 400 mls/hr IV NOW STA Stop: 01/05/20 15:09 Last Infusion: 01/05/20 15:20 Dose: 0 mls/hr Documented by: [id number] Admin: 01/05/20 15:10 Dose: 400 mls/hr Documented by: [id number] Cefepime HCl (Maxipime) 2,000 mg in 20 mls @ 5 mls/min IV NOW STA; Protocol Stop: 01/05/20 14:58 Last Admin: 01/05/20 15:33 Dose: 5 mls/min Documented by: [id number] Azithromycin 500 mg/ Dextrose 255 mls @ 127.5 mls/hr IV NOW STA Stop: 01/05/20 16:54 Last Infusion: 01/05/20 17:42 Dose: 0 mls/hr Documented by: [id number] Admin: 01/05/20 15:34 Dose: 127.5 mls/hr Documented by: [id number] Piperacillin Sod/Tazobactam Sod (Zosyn) 3.375 gm in 115 mls @ 240 mls/hr IV Q8H [facility]; Protocol Stop: 01/12/20 03:29 Last Infusion: 01/06/20 05:59 Dose: 0 mls/hr Documented by: [id number] Admin: 01/06/20 04:47 Dose: 240 mls/hr Documented by: [id number] Infusion: 01/05/20 21:50 Dose: 0 mls/hr Documented by: [id number] Admin: 01/05/20 20:25 Dose: 240 mls/hr Documented by: [id number] Methylprednisolone (Solumedrol) 125 mg IV NOW STA Stop: 01/05/20 17:26 Last Admin: 01/05/20 17:35 Dose: 125 mg Documented by: [id number] Piperacillin Sod/Tazobactam Sod (Zosyn) Confirm Administered Dose 4.5 gm .ROUTE .STK-MED ONE Stop: 01/05/20 17:35 Last Admin: 01/05/20 19:24 Dose: Not Given Documented by: [id number] Medical Decision Making Differential Diagnosis Differential diagnoses includes but is not limited to pneumonia, bronchitis, COPD/Asthma exacerbation, pneumothorax, pulmonary embolism, congestive heart failure, acute coronary syndrome. Medical Records Attestation: I reviewed the patient's medical records. Home Medications Current Medication List: was personally reviewed by me Laboratory Data Attestation: I reviewed the patient's lab results. Result diagrams: 01/06/20 06:03 01/06/20 06:03 Lab Results 01/05/20 01/05/20 01/05/20 Range/Units 13:05 13:05 13:05 WBC 21.32 H (4.8-10.8) K/uL RBC 4.78 (4.7-6.1) M/uL Hgb 13.7 L (14.0-18.0) g/dL Hct 41.2 L (42-52) % MCV 86.2 (80-100) fL MCH 28.7 (25-34) pg MCHC 33.3 (32-36) g/dL RDW Std Deviation 48.7 H (36.4-46.3) fL RDW Coeff of Aissatou 15.4 H (11.5-14.5) % Plt Count 409 H (130-400) K/uL MPV 9.1 (7.4-10.4) fL Immature Gran % (Auto) 0.2 % Neut % (Auto) 85.2 % Lymph % (Auto) 8.3 % [place] % (Auto) 5.6 % Eos % (Auto) 0.7 % Baso % (Auto) 0.0 % Immature Gran # (Auto) 0.05 H (0.00-0.02) K/uL Neut # (Auto) 18.14 H (1.4-6.5) K/uL Lymph # (Auto) 1.77 (1.2-3.4) K/uL [place] # (Auto) 1.20 H (0.11-0.59) K/uL Eos # (Auto) 0.15 (0-0.5) K/uL Baso # (Auto) 0.01 (0-0.2) K/uL Sodium 136 (136-145) mmol/L Potassium 3.4 L (3.5-5.1) mmol/L Chloride 105 (98-107) mmol/L Carbon Dioxide 23 (21-32) mmol/L Anion Gap 8.0 (3-11) BUN 12 (7-18) mg/dl Creatinine 0.21 L (0.6-1.4) mg/dl Est Cr Clr Drug Dosing 554.3 ml/min Est GFR ( Amer) > 150.0 Est GFR (Non-Af Amer) > 150.0 BUN/Creatinine Ratio 55.0 H (10-20) Glucose 87 (70-99) mg/dl Calcium 9.4 (8.5-10.1) mg/dl Total Bilirubin 0.5 (0.2-1) mg/dl AST 12 L (15-37) U/L ALT 25 (12-78) U/L Alkaline Phosphatase 69 (45-117) U/L Troponin I < 0.015 (0-0.045) ng/ml NT-Pro-B Natriuret Pep 71 (0-450) pg/ml Total Protein 8.5 H (6.4-8.2) gm/dl Albumin 3.3 L (3.4-5.0) gm/dl Globulin 5.2 H (2.5-4.0) gm/dl Albumin/Globulin Ratio 0.6 L (0.9-2) Procalcitonin 0.36 (0-0.5) ng/ml Influenza Type A (PCR) (Neg) Influenza Type B (PCR) (Neg) 01/05/20 Range/Units 13:15 WBC (4.8-10.8) K/uL RBC (4.7-6.1) M/uL Hgb (14.0-18.0) g/dL Hct (42-52) % MCV (80-100) fL MCH (25-34) pg MCHC (32-36) g/dL RDW Std Deviation (36.4-46.3) fL RDW Coeff of Aissatou (11.5-14.5) % Plt Count (130-400) K/uL MPV (7.4-10.4) fL Immature Gran % (Auto) % Neut % (Auto) % Lymph % (Auto) % [place] % (Auto) % Eos % (Auto) % Baso % (Auto) % Immature Gran # (Auto) (0.00-0.02) K/uL Neut # (Auto) (1.4-6.5) K/uL Lymph # (Auto) (1.2-3.4) K/uL [place] # (Auto) (0.11-0.59) K/uL Eos # (Auto) (0-0.5) K/uL Baso # (Auto) (0-0.2) K/uL Sodium (136-145) mmol/L Potassium (3.5-5.1) mmol/L Chloride (98-107) mmol/L Carbon Dioxide (21-32) mmol/L Anion Gap (3-11) BUN (7-18) mg/dl Creatinine (0.6-1.4) mg/dl Est Cr Clr Drug Dosing ml/min Est GFR ( Amer) Est GFR (Non-Af Amer) BUN/Creatinine Ratio (10-20) Glucose (70-99) mg/dl Calcium (8.5-10.1) mg/dl Total Bilirubin (0.2-1) mg/dl AST (15-37) U/L ALT (12-78) U/L Alkaline Phosphatase (45-117) U/L Troponin I (0-0.045) ng/ml NT-Pro-B Natriuret Pep (0-450) pg/ml Total Protein (6.4-8.2) gm/dl Albumin (3.4-5.0) gm/dl Globulin (2.5-4.0) gm/dl Albumin/Globulin Ratio (0.9-2) Procalcitonin (0-0.5) ng/ml Influenza Type A (PCR) Neg for Influ A (Neg) Influenza Type B (PCR) Neg for Influ B (Neg) Imaging Data Radiologist's Impression: Radiology results as stated below per my review and the radiologist's interpretation: XR chest 1V portable CLINICAL HISTORY: Shortness of breath. COMPARISON STUDY: No previous studies for comparison. FINDINGS: Lung volumes are normal. There is no pneumothorax. No definite pleural effusion is noted. Left basilar consolidation is present. There is also right basilar opacity. There is minimal left midlung opacity. There is no evidence for pulmonary edema. Cardiac size is normal. IMPRESSION: Bibasilar airspace opacities, greater on the left. The findings favor pneumonia or aspiration pneumonitis. Atelectasis could appear similar but is considered less likely. Radiographic follow-up is recommended. ACT 112: Negative or not required by law. Electronically signed by: Karl Jacinto M.D. 01/05/2020 2:47 PM ECG Data Attestation: I personally reviewed and interpreted this ECG as follows: Indication: + SOB/dyspnea Rate (beats per minute): 96 Rhythm: + sinus rhythm ECG Intervals/blocks: + Normal QRS, + Normal QT and + Normal QT-c ECG [place]: + Normal ECG Findings: + Other (No acute ischemia.); no PACs and no PVCs Blood Pressure Blood Pressure Findings: Elevated blood pressure Blood Pressure Disposition: further management by hospitalist ALESSANDRA Narrative Cardiac Monitoring: An order was placed for continuous cardiac monitoring. The monitor shows a rate of 101 with sinus rhythm. This is an ill-appearing ALS patient with likely worsening pneumonia and need for additional respiratory support and airway management. Patient's family made aware of all results. As patient did not initially have a fever he was not initially made a septic work-up. We attempted to draw cultures after initial labs were drawn and sent, patient had a severe vasovagal episode, and subsequently refused any additional attempts at repeat blood draw. Patient remained hemodynamically stable in the emergency room. No evidence of bacteremia/sepsis. Patient was continued on his facial BiPAP as well as frequent suctioning that his performed at bedside. Case discussed with hospitalist for additional evaluation and management. I do not suspect PE, ACS, congestive heart failure. Impression & Plan Dyspnea, Pneumonia, ALS (amyotrophic lateral sclerosis) Discharge Plan Visit Data *Final* Discharge Date/Time: 01/05/20 18:05 Chief Complaint: Shortness of Breath/Dyspnea Stated Complaint: Increased shortness of breath ED Provider: Priya Vance Discharge Problem: Dyspnea, Pneumonia, ALS (amyotrophic lateral sclerosis) Patient Disposition: Admitted As Inpatient Discharge Instructions Interventions: ED Discharge Assessment Last Done: 01/05/20 18:05 Discharge Problem: Dyspnea Qualifiers: Dyspnea type: unspecified Qualified Code(s): R06.00 - Dyspnea, unspecified Pneumonia Qualifiers: Pneumonia type: due to unspecified organism Laterality: left Lung location: unspecified part of lung Qualified Code(s): J18.9 - Pneumonia, unspecified organism The scribe's documentation has been prepared under my direction and personally reviewed by me in its entirety. I confirm that the note above accurately reflects all work, treatment, procedures, and medical decision making performed by me.
[2020-01-06] MEDS: PEPTAMEN 1.5 CAL 1,000 ML BAG PEG SCH (20:33)
[2020-01-07] MEDS: guaiFENesin SUGAR FREE 200 MG/10 ML UDC PO SCH ×3 (01:23→12:02)
[2020-01-07] MEDS: guaiFENesin 600 MG TABCR PO SCH (08:25)
[2020-01-07] MEDS: POLYETHYLENE (MIRALAX) 17 GM PACK PO SCH (08:27)
[2020-01-07] MEDS: HEPARIN SOD 5,000 UNIT/0.5 ML VIAL SQ SCH (08:28)
[2020-01-07] MEDS: NYSTATIN POWDER 15GM BTL EXT SCH (08:28)
[2020-01-07] MEDS: OMEGA-3 (PURIFIED FISH OIL) 1 GM CAP PO SCH (08:28)
[2020-01-07] MEDS: IPRATROPIUM BROMIDE NASAL SPRAY 0.06% 15ML NAE SCH (08:28)
[2020-01-07] MEDS: CHOLECALCIFEROL 1,000 UNITS 25 MCG TAB PO SCH (08:29)
[2020-01-07] MEDS ORDERED: AMOXICILLIN/CLAVULANATE SUSP 400MG/5ML 50ML BOTTLE GT SCH (09:00)
[2020-01-07] MEDS ORDERED: AZITHROMYCIN SUSP 200 MG/5 ML 22.5 ML GT SCH (09:00)
[2020-01-07] MEDS: PEPTAMEN 1.5 CAL 1,000 ML BAG PEG SCH (10:05)
[2020-01-07] MEDS: ALBUTEROL 0.083% NEBU SOLN 3 ML VIAL INH PRN (12:04)
--- NOTE | 2020-01-07 14:28 | Fluoroscopy Report ---
FL video swallow HISTORY: Possible pneumonia. Assess for aspiration. TECHNIQUE: Video fluoroscopic evaluation of swallowing was performed in the AP and lateral projection s by the speech pathology staff. The patient is fed nectar-thick and thin liquid barium, a barium coa dalton wafer, and barium pudding. FLUOROSCOPY TIME: 3.5 minutes. A cine loop submitted. COMPARISON STUDY: None. FINDINGS: Multiple episodes of incomplete epiglottic deflection and suboptimal hydration excursion du e to the overall poor pharyngeal constriction. This results in multiple episodes of trace silent aspi ration throughout the examination. Moderate hypopharyngeal residue throughout the examination. IMPRESSION: 1. Multiple episodes of trace silent aspiration as described above. 2. Please see the speech pathologist report for detailed findings and recommendations. ACT 112: Negative or not required by law. Electronically signed by: Tony Roldan M.D. 01/07/2020 2:27 PM
--- NOTE | 2020-01-07 14:30 | Discharge Summary ---
Date of Service January 07, 2020 Admission HPI Per Admitting Provider Is a 34-year-old male with progressive ALS and has a PEG tube for feeding apparently noted to have cough with sputum production for the last 1 week. He has been complaining of more shortness of breath for the last 2 days. Has had increased temperature yesterday but was not documented. No chills noted. His condition has been getting worse and he was advised to come to the emergency room for further evaluation. He complains today of some pain in the lower chest milner with coughing but denies any abdominal pain nausea or vomiting. He gets tube feeding but also eats whenever he can. He is quadriplegic from ALS. He was noted to be afebrile in the emergency room with a very high white count of 21,000 and chest x-ray showed bibasilar infiltration more on the left than the right. He refused to have blood culture but he was started with intravenous Zosyn and azithromycin and was admitted to medical telemetry unit for continuation of care. Admission Exam Per Admitting Provider Physical Exam: Lying in bed with moderate distress due to shortness of breath and cough Constitutional: well developed, well nourished, + acute distress (Due to shortness of breath), + ill appearing and + obese Eyes: PERRL, conjunctivae normal, anicteric sclerae ENMT: external ear and nose normal, oropharynx normal Neck: trachea midline, no thyromegaly Respiratory: + respiratory distress and + uses accessory muscles Auscultation: + diminished lung sounds and + crackles (Bibasally more on the left than the right) Cardiovascular: Rate/Rhythm: regular rate and regular rhythm Heart Sounds: no murmur Gastrointestinal (Abdomen): Inspection/Auscultation: abdomen normal to inspection and normal bowel sounds PEG tube site is unremarkable Musculoskeletal: No acute arthritis involving any joint Neurologic: Alert, awake and oriented x3, has ALS and is bedbound with quadriplegia Lymphatic: no cervical or axillary lymphadenopathy Principal Diagnosis Community-acquired pneumonia ALS Discharge Exam CONSTITUTIONAL: WNWD, vitals as above, generally well-appearing, quadriplegic EYES: pupils are equal and round bilaterally, normal conjunctivae, no scleral icterus ENT: external ear and nose normal, MMM, nasal CPAP in place RESPIRATORY: clear to auscultation bilaterally, no crackles, rales or wheezes, normal respiratory effort at rest CARDIOVASCULAR: regular rate and rhythm, S1 and 2 heard without murmurs, gallops or rubs, no JVD, no peripheral edema GASTROINTESTINAL: soft, nontender, nontender MUSCULOSKELETAL: head is NC/AT, quadriplegic SKIN: warm and dry NEUROLOGIC: CN 2-12 grossly intact, normal cognition and speech but has conversational dyspnea. PSYCHIATRIC: alert cooperative and oriented to person, place and time. Euthymic mood, makes good eye contact, language grossly intact Discharge Data Allergies Allergy/AdvReac Type Severity Reaction Status Date / Time No Known Allergies Allergy Verified 01/05/20 13:14 Consultations 01/05/20 15:29 ED Decision to Admit Stat Ordered Studies 01/07/20 13:15 FL video swallow Routine Hospital Course (1) Pneumonia: Started broad spectrum abx on admission with resolution of leukocytosis overnight and overall clinical improvement. Antibiotics were changed to rocephin and azithromycin the following day. No blood cultures were drawn, but sputum culture negative. Per Speech pathology evaluation, the patient required a video swallow study which was performed on 01/06. Multiple episodes of trace silent aspiration were seen with swallowing. Recommendations were given at time of discharge. Also, the pharmacist and nurse worked closely with the patient to provide education on which medications and supplements may be put through his G tube instead of taking them orally. Continued with periodic suctioning as needed. Continued with usual nebulized bronchodilators. He was sent home on 10 days of Augmentin suspension to put through his G tube. The amount dispensed was off and adjusted by the receiving pharmacy, so it is not listed in the final discharge medication list, but it was confirmed to have been delivered to the patient's room prior to discharge. CXR recommended in 4-6 weeks to ensure complete resolution. (2) ALS (amyotrophic lateral sclerosis): Total Time Total Time Spent Total Time Spent (In Minutes): 60 Total Time Includes: Examination of the Patient, Discharge Planning, Medication Reconciliation and Communication With Other Providers Discharge Plan Discharge Items Patient Disposition: Home - Home Health Services Reason For Visit: COUGH,SPUTUM PRODUCTION,SOB Discharge Diagnosis: Community-acquired pneumonia ALS Condition on Discharge: Good Activity: Resume your previous activity Non-emergency contact: Primary Care Provider Call non-emergency contact if: you have any medication questions, your symptoms worsen, your pain is not controlled, your pain is worsening, your pain is unusual for you, your pain is concerning for you and you have a fever Follow-up/Referrals: Leilani Butler C.RQuyenN.P. [Primary Care Provider] - Diet: Regular Diet Texture: Easy to Chew Addtl Attending Provider Instructions: Please continue all medications as instructed on discharge list below. Please follow all recommendations from the migration agent regarding supplement use and the speech pathologist regarding methods of swallowing. It is recommended that you have a repeat chest xray in about 4 weeks to ensure there is a complete resolution of pneumonia. This may be ordered by your primary care provider (PCP). It is recommended you have a follow-up appointment with your PCP in one week to ensure you are still doing well after going home. It was a pleasure taking care of you! Please call if you have any questions or problems. You can reach a [facility] hospitalist on duty at [facility] 24 hours a day by calling [phone]. Take care of yourself. Shanti Vick, DO [facility] Pending Studies at Discharge: No Stand-Alone Forms: [facility], Smoking Cessation Medications and DC Order Prescriptions: Continued lysine 1,000 mg Tablet 1,000 mg PO QAM RF: 0 riluzole 50 mg Tablet 50 mg PO Q12 RF: 0 ipratropium bromide 0.03 % Pollock,Non-Aerosol 2 spray INTRANASAL BID RF: 0 Pulmocare Liquid 1 ea feeding tube BID RF: 0 cholecalciferol (vitamin D3) [Vitamin D3] 25 mcg (1,000 unit) Tablet 1,000 unit PO BID RF: 0 coenzyme Q10 [Co Q-10] 400 mg Capsule 400 mg PO QAM RF: 0 guaifenesin 600 mg Tablet Extended Release 12hr 1,200 mg PO BID RF: 0 hydrocortisone 0.5 % Cream 1 applic TOPICAL BID PRN (Reason: Itching) RF: 0 acetaminophen 325 mg Tablet 325 mg PO QID PRN (Reason: Pain) RF: 0 albuterol sulfate 2.5 mg /3 mL (0.083 %) Solution For Nebulization 2.5 mg INHALATION QID PRN (Reason: Shortness Of Breath) RF: 0 polyethylene glycol 3350 17 gram Powder In Packet 17 g PO DAILY RF: 0 nystatin 100,000 unit/gram Cream 1 applic TOPICAL BID RF: 0 hydrocortisone 2.5 % Cream 1 applic TOPICAL BID PRN (Reason: Itching) RF: 0 nystatin 100,000 unit/gram Powder 1 applic TOPICAL BID RF: 0 albuterol sulfate 90 mcg/actuation Hfa Aerosol Inhaler 1 inh INHALATION TID PRN (Reason: Shortness Of Breath) RF: 0 artificial tears(hypromellose) 0.3 % Drops 1 drp OPHTHALMIC (EYE) BID PRN (Reason: Dry Eye(S)) RF: 0 cranberry 500 mg Capsule 500 mg PO DAILY RF: 0 zinc oxide Ointment 1 applic TOPICAL DAILY PRN (Reason: IRRITATION) RF: 0 A and D Diaper Rash Cream 1-10 % Cream 1 applic TOPICAL BID RF: 0 TwoCal HN 0.08-2 gram-kcal/mL Liquid 1 ea feeding tube DAILY RF: 0 coenzyme Q10 400 mg Capsule 400 mg PO DAILY RF: 0 omega 7-hdo-hqa-fish oil 1,000 mg (120 mg-180 mg) Capsule 2 cap PO BID RF: 0 Discharge Orders: Discharge Order (Routine); Ordered 01/07/20 Ordered By: Shanti Vick Admission Data Admit Date/Time: 01/05/20 16:03 Attending Provider: Shanti Vick Admit Provider: Ivon Bolivar Primary Care Provider: Leilani Butler Other Interventions: Discharge Summary Assessment (RN) Last Done: 01/07/20 14:26 DC Date/Time DO NOT enter until pt leaves facility: 01/07/20 19:16
== END 2020-01-07 19:16 | disposition home health service (06) | DRG 193 ==
LOC: ED 12:20 → 2N 16:03 → SUATTDRO 16:03 → 2N 18:05 → 2W 01-07 06:28

== ENCOUNTER 2021-12-18 17:07 | Inpatient (IN) ==
[~2021-12-18 17:07] MED LIST: ETOMIDATE 2 MG/ML 20 ML VIAL IV ONE; MIDAZOLAM HCL 5 MG/ML VIAL IV ONE; SUCCINYLCHOLINE CHLORIDE 20 MG/ML 10 ML VIAL IV ONE; fentaNYL citrate 100 MCG/2 ML VIAL IV ONE
[2021-12-18] MEDS ORDERED: CEFEPIME 2,000 MG/20 ML VIAL IV STA (17:48)
[2021-12-18] MEDS ORDERED: SODIUM CHLORIDE 0.9% 1000ML 1,000 ML IV SCH (18:00)
--- NOTE | 2021-12-18 18:02 | Emergency Department Note ---
History of Present Illness General Chief complaint: Illness Stated complaint: Illness Time Seen by Provider: 12/18/21 17:45 History of Present Illness 36-year-old male presents to the ED with a chief complaint of hypoxia, fever and diarrhea. The patient has a history of ALS since 2013. He is essentially bedbound, only can whisper when he communicates and has history of choking on his saliva. He is fed through a feeding tube. He has a trilogy ventilator that he uses at all times and only uses oxygen at night. The states that his oxygen saturations was in the 80s on room air today during the day. His heart rate was also increased in the 130-1 range. When EMS arrived and picked him up, they needed 10 L to improve his oxygen saturations into the 90s. His states that his saturations are usually in the low 90s without oxygen during the day. He is unable to cough or produce a cough. His symptoms were recognized today. Home Medications Medication Instructions Recorded Confirmed Type cholecalciferol (vitamin D3) 25 1,000 unit PO BID 12/02/19 12/18/21 History mcg (1,000 unit) tablet (Vitamin D3) coenzyme Q10 400 mg capsule (Co 400 mg PO QAM 12/02/19 12/18/21 History Q-10) ipratropium bromide 21 mcg (0.03 2 spray INTRANASAL BID 12/02/19 12/18/21 History %) nasal spray lysine 1,000 mg tablet 1,000 mg PO QAM 12/02/19 12/18/21 History riluzole 50 mg tablet 50 mg PO Q12 12/02/19 12/18/21 History artificial tears(hypromellose) 0.3 1 drp OPHTHALMIC (EYE) BID PRN 01/05/20 12/18/21 History % eye drops hydrocortisone 0.5 % topical cream 1 applic TOPICAL BID PRN 01/05/20 12/18/21 History nut. tx, spec. form, 1 ea FEEDING TUBE DAILY 01/05/20 12/18/21 History lac-free,iron-fos 0.08 gram-2 kcal/mL oral liquid (TwoCal HN) polyethylene glycol 3350 17 gram 17 g PO DAILY PRN 01/05/20 12/18/21 History oral powder packet zinc oxide 1 applic TOPICAL DAILY PRN 01/05/20 12/18/21 History Cannabis 1 dose PO DIRECTED PRN 12/05/21 12/18/21 History cat's claw (uncaria tomentosa) 400 400 mg PO DAILY 12/05/21 12/18/21 History mg capsule guaifenesin 100 mg/5 mL oral liquid 200 mg PO Q4H PRN 12/05/21 12/18/21 History ibuprofen 400 mg tablet 400 mg PO Q8H PRN 12/05/21 12/18/21 History lidocaine 5 % topical cream 1 applic TOPICAL BID PRN 12/05/21 12/18/21 History Susie Farm Standard Formula 325 - 975 ml FEEDING TUBE DAILY 12/18/21 12/18/21 His tory Allergies Allergy/AdvReac Type Severity Reaction Status Date / Time No Known Allergies Allergy Verified 12/18/21 18:21 Past Med/Surg History Medical History ALS (amyotrophic lateral sclerosis) DX FEBRUARY 2014 Cardiac murmur AN INFANT Dry eye syndrome Sleep apnea USES APAP DEVICE (DX WITH ALS) ALWAYS USING >WITH 3L AT HS ONLY Slow gastric motility D/T ALS Uses feeding tube SYRINGE FEEDING THRU PEG TUBE (STILL SWALLOWS PILLS ORALLY) Surgical History History of esophagogastroduodenoscopy (EGD) History of herniorrhaphy History of tooth extraction Hx of LASIK PRK S/P percutaneous endoscopic gastrostomy (PEG) tube placement Family History Mother Family history of diabetes mellitus Other No family history of adverse response to anesthesia Social History Smoking Status: Never smoker Second Hand Exposure: No; Hx Alcohol Use: Yes Alcohol type: beer and hard liquor Hx Substance Use: No Preferred Language: Yakut Communication Ability: Impaired Kennel Attendant Required: No Beliefs That Will Affect Care: None Current Living Situation: Family Current Living Situation Comment: AND 3 SONS Feels Safe at Home: Yes Assistive Devices: Glasses Review of Systems See HPI for pertinent positives & negatives. Physical Exam Vital Signs Vital Signs - 24 hr 12/18/21 17:07 12/18/21 17:50 Temperature 37.9 C H Temperature Source Rectal Pulse Rate 127 H 127 H Pulse Rhythm Regular Respiratory Rate 19 19 Respiratory Effort / Characteristics Non-Labored Non-Labored Respiratory Depth Normal Respiratory Pattern Regular Blood Pressure 105/74 Blood Pressure Mean 84 Pulse Oximetry 90 90 Oxygen Delivery Method Other Other Oxygen Flow Rate 10 10 Sepsis Recent Fever Within 48 Hours No Sepsis New/Unexplained Change in Mental Status No Sepsis Action Taken by Nursing No Action Required CONSTITUTIONAL/VITAL SIGNS: Reviewed / noted above. GENERAL: Non-toxic in appearance. INTEGUMENTARY: Warm, dry, and [place]. HEAD: Normocephalic. EYES: without scleral icterus or trauma. ENT/OROPHARYNX: clear and moist. Wearing a trilogy facemask. LYMPHADENOPATHY/NECK: Is supple without lymphadenopathy or meningismus. RESPIRATORY: Clear to auscultation bilaterally anteriorly No increased work of breathing. CARDIOVASCULAR: Tachycardic rate and regular rhythm. GI/ABDOMEN: Soft and nontender. No organomegaly or pulsatile mass. EXTREMITIES: Warm and well perfused. BACK: No CVA tenderness. NEUROLOGICAL: Intact without focal deficits. PSYCHIATRIC: normal affect. MUSCULOSKELETAL: Generalized weakness/paralysis of the extremities TRIAGE NURSING DOCUMENTATION REVIEWED. Course Administered Medications Sodium Chloride (Nss 1000ml) 1,000 mls @ 999 mls/hr IV .Q1H1M MYNOR Stop: 12/18/21 19:00 Last Admin: 12/18/21 18:52 Dose: 999 mls/hr Documented by: [id number] Medical Decision Making Differential Diagnosis The differential was considered includes acute myocardial infarction, acute coronary syndrome, myocarditis, pericarditis, pericardial effusions /tamponad, esophageal perforation, pulmonary embolism, pneumonia, pneumothorax, cardiomyopathy, congestive heart, anemia , COPD/asthma exacerbation. Medical Records Attestation: I reviewed the patient's medical records. Home Medications Current Medication List: was personally reviewed by me Laboratory Data Attestation: I reviewed the patient's lab results. Result diagrams: 12/18/21 17:30 12/18/21 17:30 Lab Results 12/18/21 12/18/21 12/18/21 Range/Units 17:30 17:30 17:30 WBC 13.64 H (4.8-10.8) K/uL RBC 5.40 (4.7-6.1) M/uL Hgb 15.7 (14.0-18.0) g/dL Hct 46.8 (42-52) % MCV 86.7 (80-100) fL MCH 29.1 (25-34) pg MCHC 33.5 (32-36) g/dL RDW Std Deviation 52.3 H (36.4-46.3) fL RDW Coeff of Aissatou 16.5 H (11.5-14.5) % Plt Count 380 (130-400) K/uL MPV 10.9 H (7.4-10.4) fL Immature Gran % (Auto) 1.1 % Neut % (Auto) 93.1 % Lymph % (Auto) 4.3 % [place] % (Auto) 1.1 % Eos % (Auto) 0.4 % Baso % (Auto) 0.0 % Neut # (Auto) 12.69 H (1.4-6.5) K/uL Lymph # (Auto) 0.59 L (1.2-3.4) K/uL [place] # (Auto) 0.15 (0.11-0.59) K/uL Eos # (Auto) 0.06 (0-0.5) K/uL Baso # (Auto) 0.00 (0-0.2) K/uL Immature Gran # (Auto) 0.15 H (0.00-0.02) K/uL PT (9.0-12.0) Seconds INR (0.9-1.1) APTT (21.0-31.0) Seconds PTT Ratio Sodium 134 L (136-145) mmol/L Potassium 3.0 L (3.5-5.1) mmol/L Chloride 100 (98-107) mmol/L Carbon Dioxide 24 (21-32) mmol/L Anion Gap 10 (3-11) BUN 10 (6-23) mg/dl Creatinine < 0.20 L (0.6-1.4) mg/dl Est Cr Clr Drug Dosing 626.9 ml/min Est GFR ( Amer) > 150.0 ml/min Est GFR (Non-Af Amer) > 150.0 ml/min BUN/Creatinine Ratio TNP Glucose 164 H (70-99(Fasting)) mg/dl Calcium 9.5 (8.5-10.1) mg/dl Magnesium 2.0 (1.7-2.4) mg/dl Total Bilirubin 1.4 H (0.2-1.0) mg/dl AST 22 (13-39) U/L ALT 37 (7-52) U/L Alkaline Phosphatase 94 (34-104) U/L Troponin I 0.04 (0-0.04) ng/ml Total Protein 6.7 (6.0-8.3) gm/dl Albumin 3.4 (3.4-5.0) gm/dl Globulin 3.3 (2.5-4.0) gm/dl Albumin/Globulin Ratio 1.0 (0.9-2) Procalcitonin 2.11 H (0-0.5) ng/ml 12/18/21 Range/Units 17:30 WBC (4.8-10.8) K/uL RBC (4.7-6.1) M/uL Hgb (14.0-18.0) g/dL Hct (42-52) % MCV (80-100) fL MCH (25-34) pg MCHC (32-36) g/dL RDW Std Deviation (36.4-46.3) fL RDW Coeff of Aissatou (11.5-14.5) % Plt Count (130-400) K/uL MPV (7.4-10.4) fL Immature Gran % (Auto) % Neut % (Auto) % Lymph % (Auto) % [place] % (Auto) % Eos % (Auto) % Baso % (Auto) % Neut # (Auto) (1.4-6.5) K/uL Lymph # (Auto) (1.2-3.4) K/uL [place] # (Auto) (0.11-0.59) K/uL Eos # (Auto) (0-0.5) K/uL Baso # (Auto) (0-0.2) K/uL Immature Gran # (Auto) (0.00-0.02) K/uL PT 11.6 (9.0-12.0) Seconds INR 1.2 H (0.9-1.1) APTT 38.8 H (21.0-31.0) Seconds PTT Ratio 1.5 Sodium (136-145) mmol/L Potassium (3.5-5.1) mmol/L Chloride (98-107) mmol/L Carbon Dioxide (21-32) mmol/L Anion Gap (3-11) BUN (6-23) mg/dl Creatinine (0.6-1.4) mg/dl Est Cr Clr Drug Dosing ml/min Est GFR ( Amer) ml/min Est GFR (Non-Af Amer) ml/min BUN/Creatinine Ratio Glucose (70-99(Fasting)) mg/dl Calcium (8.5-10.1) mg/dl Magnesium (1.7-2.4) mg/dl Total Bilirubin (0.2-1.0) mg/dl AST (13-39) U/L ALT (7-52) U/L Alkaline Phosphatase (34-104) U/L Troponin I (0-0.04) ng/ml Total Protein (6.0-8.3) gm/dl Albumin (3.4-5.0) gm/dl Globulin (2.5-4.0) gm/dl Albumin/Globulin Ratio (0.9-2) Procalcitonin (0-0.5) ng/ml Imaging Data Radiologist's Impression: Chest X-Ray 12/18/21 17:50 XR chest 1V portable CLINICAL HISTORY: SEPSIS. Evaluate cardiopulmonary status COMPARISON STUDY: 01/05/2020 TECHNIQUE: 1 view of the chest FINDINGS: Single frontal view of the chest demonstrates the cardiomediastinal silhouette to be within normal limits. Compared to previous examination, there is chronic scarring present involving the left hemithorax. However, there has been interval development of an alveolar opacity involving the right lower lobe characteristic of right lung pneumonia. The upper lungs are clear bilaterally. There is blunting the costophrenic angles bilaterally characteristic of small bilateral pleural effusions. Bibasilar atelectasis is also present . There is no evidence for vascular congestion. There is no acute osseous pathology. IMPRESSION: 1. Confluent alveolar opacity the right lung base most characteristic of pneu monia. 2. Chronic scarring at the left lung base which appears unchanged. 3. Small bilateral pleural effusions and bibasilar atelectasis are also present. ACT 112: Negative or not required by law. Electronically signed by: Mannie Roth M.D. 12/18/2021 6:07 PM ECG Data Attestation: I personally reviewed and interpreted this ECG as follows: MDM Narrative 36-year-old male presents with hypoxia, fever and some diarrhea at home. He is requiring 10 L of oxygen to maintain saturations in the low 90s. Typically during the day he is not on oxygen and at nighttime he uses 4 L. The patient does have a feeding tube and has a choking history. His chest x-ray suggested right lower lobe pneumonia. White blood cell count is slightly elevated at 13.6. Chemistry panel is noted. Potassium is 3.0. Glucose is 164. Procalcitonin is 2.1. The patient was given IV cefepime and IV vancomycin as well as some IV fluids. He will be seen by the hospitalist for further inpatient evaluation and care. Impression & Plan Hypoxia, Aspiration pneumonia of right lower lobe Discharge Plan Visit Data Chief Complaint: Illness Stated Complaint: Illness ED Provider: Presley Kumar Discharge Problem: Hypoxia, Aspiration pneumonia of right lower lobe Patient Disposition: Being Evaluated by Hospitalist Forms Stand Alone Forms: Count Includes [facility] Prescriptions Prescriptions: No Action guaifenesin 100 mg/5 mL liquid 200 mg PO Q4H PRN (Reason: Congestion) RF: 0 lidocaine 5 % cream 1 applic topical BID PRN (Reason: Pain) RF: 0 cat's claw (uncaria tomentosa) 400 mg capsule 400 mg PO DAILY RF: 0 ibuprofen 400 mg tablet 400 mg PO Q8H PRN (Reason: Pain) RF: 0 Cannabis 1 dose PO DIRECTED PRN (Reason: NEEDED) RF: 0 lysine 1,000 mg Tablet 1,000 mg PO QAM RF: 0 riluzole 50 mg Tablet 50 mg PO Q12 RF: 0 ipratropium bromide 0.03 % Herman,Non-Aerosol 2 spray INTRANASAL BID RF: 0 cholecalciferol (vitamin D3) [Vitamin D3] 25 mcg (1,000 unit) Tablet 1,000 unit PO BID RF: 0 coenzyme Q10 [Co Q-10] 400 mg Capsule 400 mg PO QAM RF: 0 hydrocortisone 0.5 % Cream 1 applic TOPICAL BID PRN (Reason: Itching) RF: 0 polyethylene glycol 3350 17 gram Powder In Packet 17 g PO DAILY PRN (Reason: Constipation) RF: 0 artificial tears(hypromellose) 0.3 % Drops 1 drp OPHTHALMIC (EYE) BID PRN (Reason: Dry Eye(S)) RF: 0 zinc oxide Ointment 1 applic TOPICAL DAILY PRN (Reason: IRRITATION) RF: 0 TwoCal HN 0.08-2 gram-kcal/mL Liquid 1 ea feeding tube DAILY RF: 0 Susie Farm Standard Formula 325 - 975 ml feeding tube DAILY RF: 0 Referrals Referrals: Leilani Butler C.R.N.P. [Primary Care Provider] -
[2021-12-18 18:05] LABS: Eosinophils # (auto) 0.06 K/uL (0-0.5); Eosinophils % (auto) 0.4 %; Hematocrit (blood only) 46.8 % (42-52); Hemoglobin 15.7 g/dL (14.0-18.0); Immature Granulocytes # (auto) 0.15 K/uL (0.00-0.02); Immature Granulocytes % (auto) 1.1 %; Lymphocytes # (auto) 0.59 K/uL (1.2-3.4); Lymphocytes % (auto) 4.3 %; Mean Corpuscular Hemoglobin 29.1 pg (25-34); Mean Corpuscular Hgb Conc 33.5 g/dL (32-36); Mean Corpuscular Volume 86.7 fL (80-100); Mean Platelet Volume 10.9 fL (7.4-10.4); Monocytes # (auto) 0.15 K/uL (0.11-0.59); Monocytes % (auto) 1.1 %; Neutrophils # (auto) 12.69 K/uL (1.4-6.5); Neutrophils % (auto) 93.1 %; Platelet Count 380 K/uL (130-400); RDW Coefficient of Variation 16.5 % (11.5-14.5); RDW Standard Deviation 52.3 fL (36.4-46.3); White Blood Count 13.64 K/uL (4.8-10.8)
--- NOTE | 2021-12-18 18:08 | XRay Report ---
XR chest 1V portable CLINICAL HISTORY: SEPSIS. Evaluate cardiopulmonary status COMPARISON STUDY: 01/05/2020 TECHNIQUE: 1 view of the chest FINDINGS: Single frontal view of the chest demonstrates the cardiomediastinal silhouette to be within normal li mits. Compared to previous examination, there is chronic scarring present involving the left hemithor ax. However, there has been interval development of an alveolar opacity involving the right lower lob e characteristic of right lung pneumonia. The upper lungs are clear bilaterally. There is blunting the costophrenic angles bilaterally characteristic of small bilateral pleural effus ions. Bibasilar atelectasis is also present . There is no evidence for vascular congestion. There is no acute osseous pathology. IMPRESSION: 1. Confluent alveolar opacity the right lung base most characteristic of pneumonia. 2. Chronic scarring at the left lung base which appears unchanged. 3. Small bilateral pleural effusions and bibasilar atelectasis are also present. ACT 112: Negative or not required by law. Electronically signed by: Mannie Roth M.D. 12/18/2021 6:07 PM
[2021-12-18 18:18] LABS: INR 1.2 (0.9-1.1); Partial Thromboplastin Ratio 1.5; Partial Thromboplastin Time 38.8 Seconds (21.0-31.0); Prothrombin Time 11.6 Seconds (9.0-12.0)
[2021-12-18 18:36] LABS: Alanine Aminotransferase 37 U/L (7-52); Albumin Level 3.4 gm/dl (3.4-5.0); Alkaline Phosphatase 94 U/L (34-104); Anion Gap 10 (3-11); Aspartate Aminotransferase 22 U/L (13-39); Bilirubin,Total 1.4 mg/dl (0.2-1.0); Blood Urea Nitrogen 10 mg/dl (6-23); Calcium 9.5 mg/dl (8.5-10.1); Carbon Dioxide 24 mmol/L (21-32); Chloride 100 mmol/L (98-107); Creatinine Clr Calc Pharmacy 626.9 ml/min; Est GFR (African American) > 150.0 ml/min; Est GFR (Non-African American) > 150.0 ml/min; Globulin 3.3 gm/dl (2.5-4.0); Glucose 164 mg/dl (70-99(Fasting)); Sodium 134 mmol/L (136-145); Total Protein 6.7 gm/dl (6.0-8.3); Troponin I 0.04 ng/ml (0-0.04)
[2021-12-18] MEDS ORDERED: VANCOMYCIN CONSULT ACTIVE PRN (18:52)
[2021-12-18] MEDS ORDERED: VANCOMYCIN HCL 2,500 MG in SODIUM CHLORIDE 0.9% 500 ML IV ONE (18:52)
[2021-12-18] MEDS ORDERED: AMPICILLIN/SULBACTAM SOD 3,000 MG in 0.9 % SODIUM CHLORIDE 100 ML IV STA (19:20)
[2021-12-18] MEDS ORDERED: ACETAMINOPHEN 1000 MG/100 ML IV IV ONE (19:21)
[2021-12-18] MEDS ORDERED: methylPREDNISolone 40 MG in SYRINGE 0 ML IV STA (19:21)
[2021-12-18] MEDS ORDERED: XOPENEX/ATROVENT 1.25mg/0.5MG NEB COMBO NEB STA (19:22)
[2021-12-18] MEDS ORDERED: LEVALBUTEROL 1.25MG/0.5ML NEB INH ONE (19:30)
[2021-12-18] MEDS ORDERED: IPRATROPIUM BROMIDE NEB SOLN 0.02% 2.5 ML VIAL INH ONE (19:30)
[2021-12-18 20:12] LABS: Allen Test Pos (Pos); Base Excess ABG 0.8 mEq/L (-9-1.8); HCO3 ABG 24 mmol/L (19-24); Oxygen Saturation ABG 94.5 % (90-95); PCO2 ABG 33 mmHg (35-46); PO2 ABG 66 mmHg (80-95); pH ABG 7.48 (7.35-7.45)
--- NOTE | 2021-12-18 20:34 | History & Physical Report ---
Date of Service December 18, 2021 Assessment & Plan (1) Acute hypoxemic respiratory failure: Plan: Acute on chronic hx chronic respiratory failure secondary to ALS on Trilogy ventilator hx aspiration risk status post PEG tube placement Likely secondary to recurrent aspiration pneumonia Rule out CHF given bilateral pleural effusions and abnormal BNP Severe sepsis SIRS plus hypoxemia plus lactic acidosis secondary to pulmonary illness Rule out C. difficile as another source of sepsis Hypokalemia secondary to diarrhea chronic anemia, hemoglobin better than baseline Hyperglycemia rule out DM Medical telemetry Supplemental O2 CS, Unasyn follow lactic acid May need to broaden antibiotic Rx if lactic acid persistently elevated after initial intervention Pulmonary consult Re: Respiratory failure, history of ALS, complicated pneumonia TTE RE abnormal BNP, bilateral pleural effusions without CHF Stool C. difficile, IV Flagyl 1 dose now for presumptive C. difficile given sepsis criteria Replace potassium Check hemoglobin A1c DVT prophylaxis. Lovenox subcu Full code as per . Total critical care time was 40 minutes. Patient requesting updates from providers. Ms. Estephania Doll, contact #[phone]. Text document was generated using Interview Master voice recognition software. It may contain grammatical or spelling errors. Kindly contact undersigned for clarification of any documentation item in question. ADDENDUM : 10:16 PM Made aware by RN of O2 sats 80s on patient home Trilogy machine. was doing suctioning and percussion prior to O2 sat desaturation as per RN. SVT on the monitor as per engine lathe operator rate 170s. BP 120s as per RN. Repeat CXR as per my interpretation increased bilateral infiltrates, congestion AP Worsening hypoxemic respiratory failure, bilateral pneumonia with pulmonary congestion New onset SVT Recheck ABG Baseline EKG ICU transfer BiPAP support Broaden antibiotic Rx to Doxycycline and Zosyn Lasix 1 dose for now IV amiodarone for SVT Patient may require endotracheal intubation to facilitate mechanical ventilation if respiratory status does not improve with interventions. History of Present Illness Chief Complaint: Low oxygen, high heart rate Primary Care Provider: Leilani Butler History obtained from family and records. Limited history from patient secondary to O2 mask. Medical history significant for chronic respiratory failure secondary to ALS on Trilogy ventilator. Aspiration risk status post PEG tube placement, chronic anemia (baseline hemoglobin of 13). Last confinement January 2024 community-acquired pneumonia in the setting of ALS. Patient completed ceftriaxone and azithromycin course. Multiple episodes of t race silent aspiration were seen with swallowing. Patient subsequently sent home on Augmentin. Oxygen dropped to 80s on room air today as per and heart rate increased to 130s as per account. Patient noted to be bringing up yellow-green sputum. Loose stools noted without abdominal pain complaints. No known recent sick COVID-19 contacts. Patient completed COVID-19 vaccination. No recent outpatient antibiotic Rx. Patient brought to the ER for evaluation. Medical History as above Surgical History : PEG tube placement Family History : Asthma, IPF Personal/Social history : Non-smoker, no EtOH intake, disabled, lives with Allergies Allergy/AdvReac Type Severity Reaction Status Date / Time No Known Allergies Allergy Verified 12/18/21 18:21 Home Medications Medication Instructions Recorded Confirmed Type cholecalciferol (vitamin D3) 25 1,000 unit PO BID 12/02/19 12/18/21 History mcg (1,000 unit) tablet (Vitamin D3) coenzyme Q10 400 mg capsule (Co 400 mg PO QAM 12/02/19 12/18/21 History Q-10) ipratropium bromide 21 mcg (0.03 2 spray INTRANASAL BID 12/02/19 12/18/21 History %) nasal spray lysine 1,000 mg tablet 1,000 mg PO QAM 12/02/19 12/18/21 History riluzole 50 mg tablet 50 mg PO Q12 12/02/19 12/18/21 History artificial tears(hypromellose) 0.3 1 drp OPHTHALMIC (EYE) BID PRN 01/05/20 12/18/21 History % eye drops hydrocortisone 0.5 % topical cream 1 applic TOPICAL BID PRN 01/05/20 12/18/21 History nut. tx, spec. form, 1 ea FEEDING TUBE DAILY 01/05/20 12/18/21 History lac-free,iron-fos 0.08 gram-2 kcal/mL oral liquid (TwoCal HN) polyethylene glycol 3350 17 gram 17 g PO DAILY PRN 01/05/20 12/18/21 History oral powder packet zinc oxide 1 applic TOPICAL DAILY PRN 01/05/20 12/18/21 History Cannabis 1 dose PO DIRECTED PRN 12/05/21 12/18/21 History cat's claw (uncaria tomentosa) 400 400 mg PO DAILY 12/05/21 12/18/21 History mg capsule guaifenesin 100 mg/5 mL oral liquid 200 mg PO Q4H PRN 12/05/21 12/18/21 History ibuprofen 400 mg tablet 400 mg PO Q8H PRN 12/05/21 12/18/21 History lidocaine 5 % topical cream 1 applic TOPICAL BID PRN 12/05/21 12/18/21 History Susie Beck Standard Formula 325 - 975 ml FEEDING TUBE DAILY 12/18/21 12/18/21 History Past Med/Surg History Medical History ALS (amyotrophic lateral sclerosis) DX FEBRUARY 2014 Cardiac murmur AN INFANT Dry eye syndrome Sleep apnea USES APAP DEVICE (DX WITH ALS) ALWAYS USING >WITH 3L AT HS ONLY Slow gastric motility D/T ALS Uses feeding tube SYRINGE FEEDING THRU PEG TUBE (STILL SWALLOWS PILLS ORALLY) Surgical History History of esophagogastroduodenoscopy (EGD) History of herniorrhaphy History of tooth extraction Hx of LASIK PRK S/P percutaneous endoscopic gastrostomy (PEG) tube placement Family History Mother Family history of diabetes mellitus Other No family history of adverse response to anesthesia Social History Smoking Status: Never smoker Second Hand Exposure: No; Hx Alcohol Use: Yes Alcohol type: beer Hx Substance Use: No Preferred Language: Tajik Communication Ability: Effective Technical Specialist Cytogenetics Required: No Beliefs That Will Affect Care: None Current Living Situation: Spouse and Family Current Living Situation Comment: AND 3 SONS Other Information That Helps Us Care for You: No Feels Safe at Home: Yes Safety Concerns: Feels Safe At This Time Assistive Devices: Glasses Review of Systems Review of Systems: Could not be reliably obtained secondary to O2 mask Physical Exam Physical Exam: GENERAL: Comfortable, no respiratory distress SKIN: Normal color, warm HEENT: [place] palpebral conjunctivae, no ptosis, dry buccal mucosa, O2 mask in place NECK : Supple, no tenderness CHEST : Decreased breath sounds, occasional expiratory wheezes, no tenderness HEART : Tachycardic, no obvious murmurs ABDOMEN: Some distention, nontender EXTREMITIES : No LE swelling/tenderness, no other conspicuous deformities noted NEUROLOGIC : Coherent, no facial asymmetry, limited verbal output, gait and stance not assessed Results & Data Results & Data ([facility]) Vital Signs (Past 12 Hours) Vital Signs Temp Pulse Pulse Resp BP BP Pulse Ox 12/18/21 20:04 118 H 20 106/65 94 12/18/21 17:50 127 H 19 90 12/18/21 17:07 37.9 C H 127 H 19 105/74 90 Laboratory Results Laboratory Results WBC 13.64 K/uL (4.8-10.8) H 12/18/21 17:30 RBC 5.40 M/uL (4.7-6.1) 12/18/21 17:30 Hgb 15.7 g/dL (14.0-18.0) 12/18/21 17:30 Hct 46.8 % (42-52) 12/18/21 17:30 MCV 86.7 fL (80-100) 12/18/21 17:30 MCH 29.1 pg (25-34) 12/18/21 17:30 MCHC 33.5 g/dL (32-36) 12/18/21 17:30 RDW Std Deviation 52.3 fL (36.4-46.3) H 12/18/21 17:30 RDW Coeff of Aissatou 16.5 % (11.5-14.5) H 12/18/21 17:30 Plt Count 380 K/uL (130-400) 12/18/21 17:30 MPV 10.9 fL (7.4-10.4) H 12/18/21 17:30 Immature Gran % (Auto) 1.1 % 12/18/21 17:30 Neut % (Auto) 93.1 % 12/18/21 17:30 Lymph % (Auto) 4.3 % 12/18/21 17:30 [place] % (Auto) 1.1 % 12/18/21 17:30 Eos % (Auto) 0.4 % 12/18/21 17:30 Baso % (Auto) 0.0 % 12/18/21 17:30 Neut # (Auto) 12.69 K/uL (1.4-6.5) H 12/18/21 17:30 Lymph # (Auto) 0.59 K/uL (1.2-3.4) L 12/18/21 17:30 [place] # (Auto) 0.15 K/uL (0.11-0.59) 12/18/21 17:30 Eos # (Auto) 0.06 K/uL (0-0.5) 12/18/21 17:30 Baso # (Auto) 0.00 K/uL (0-0.2) 12/18/21 17:30 Immature Gran # (Auto) 0.15 K/uL (0.00-0.02) H 12/18/21 17:30 PT 11.6 Seconds (9.0-12.0) 12/18/21 17:30 INR 1.2 (0.9-1.1) H 12/18/21 17:30 APTT 38.8 Seconds (21.0-31.0) H 12/18/21 17:30 PTT Ratio 1.5 12/18/21 17:30 ABG pH 7.48 (7.35-7.45) H 12/18/21 19:57 ABG pCO2 33 mmHg (35-46) L 12/18/21 19:57 ABG pO2 66 mmHg (80-95) L 12/18/21 19:57 ABG HCO3 24 mmol/L (19-24) 12/18/21 19:57 ABG O2 Saturation 94.5 % (90-95) 12/18/21 19:57 ABG Base Excess 0.8 mEq/L (-9-1.8) 12/18/21 19:57 Praveen Test Pos (Pos) 12/18/21 19:57 Barometric Pressure 745.7 mm/Hg 12/18/21 19:57 Oxygen Given 10 L 12/18/21 19:57 Sodium 134 mmol/L (136-145) L 12/18/21 17:30 Potassium 3.0 mmol/L (3.5-5.1) L 12/18/21 17:30 Chloride 100 mmol/L (98-107) 12/18/21 17:30 Carbon Dioxide 24 mmol/L (21-32) 12/18/21 17:30 Anion Gap 10 (3-11) 12/18/21 17:30 BUN 10 mg/dl (6-23) 12/18/21 17:30 Creatinine < 0.20 mg/dl (0.6-1.4) L 12/18/21 17:30 Est Cr Clr Drug Dosing 626.9 ml/min 12/18/21 17:30 Est GFR ( Amer) > 150.0 ml/min 12/18/21 17:30 Est GFR (Non-Af Amer) > 150.0 ml/min 12/18/21 17:30 BUN/Creatinine Ratio TNP 12/18/21 17:30 Glucose 164 mg/dl (70-99(Fasting)) H 12/18/21 17:30 Lactate 3.1 mmol/L (0.4-2.0) H* 12/18/21 19:07 Calcium 9.5 mg/dl (8.5-10.1) 12/18/21 17:30 Magnesium 2.0 mg/dl (1.7-2.4) 12/18/21 17:30 Total Bilirubin 1.4 mg/dl (0.2-1.0) H 12/18/21 17:30 AST 22 U/L (13-39) 12/18/21 17:30 ALT 37 U/L (7-52) 12/18/21 17:30 Alkaline Phosphatase 94 U/L (34-104) 12/18/21 17:30 Troponin I 0.04 ng/ml (0-0.04) 12/18/21 17:30 Total Protein 6.7 gm/dl (6.0-8.3) 12/18/21 17:30 Albumin 3.4 gm/dl (3.4-5.0) 12/18/21 17:30 Globulin 3.3 gm/dl (2.5-4.0) 12/18/21 17:30 Albumin/Globulin Ratio 1.0 (0.9-2) 12/18/21 17:30 Procalcitonin 2.11 ng/ml (0-0.5) H 12/18/21 17:30 SARS-CoV-2, RNA, NAAT NEGATIVE (NEGATIVE) 12/18/21 18:51 Impressions Chest X-Ray 12/18/21 17:50 XR chest 1V portable CLINICAL HISTORY: SEPSIS. Evaluate cardiopulmonary status COMPARISON STUDY: 01/05/2020 TECHNIQUE: 1 view of the chest FINDINGS: Single frontal view of the chest demonstrates the cardiomediastinal silhouette to be within normal limits. Compared to previous examination, there is chronic scarring present involving the left hemithorax. However, there has been interval development of an alveolar opacity involving the right lower lobe characteristic of right lung pneumonia. The upper lungs are clear bilaterally. There is blunting the costophrenic angles bilaterally characteristic of small bilateral pleural effusions. Bibasilar atelectasis is also present . There is no evidence for vascular congestion. There is no acute osseous pathology. IMPRESSION: 1. Confluent alveolar opacity the right lung base most characteristic of pneumonia. 2. Chronic scarring at the left lung base which appears unchanged. 3. Small bilateral pleural effusions and bibasilar atelectasis are also present. ACT 112: Negative or not required by law. Electronically signed by: Manine Roth M.D. 12/18/2021 6:07 PM Diagnostic Findings EKG as per my interpretation: Rate 125, sinus tachycardia, normal axis, incomplete RBBB, no ischemia Code Status & VTE Plan VTE Prophylaxis Plan VTE Prophylaxis will be ordered: Yes
[2021-12-18] MEDS ORDERED: ALBUMIN 25% 100 mL 25 GM/100 ML VIAL IV ONE ×2 (20:39→22:38)
[2021-12-18] MEDS ORDERED: metroNIDAZOLE 500 MG TAB PO STA (21:29)
[2021-12-18] MEDS ORDERED: metroNIDAZOLE 500 MG/100 ML BAG IV ONE (22:00)
[2021-12-18] MEDS ORDERED: STAT IV Infusion **Titration per Protocol STA ×2 (22:20→23:26)
[2021-12-18] MEDS ORDERED: AMIODARONE IV BOLUS & DRIP IV STA (22:20)
[2021-12-18] MEDS ORDERED: 0.2 MICRON FILTER SET 1 EA IV ONE (22:20)
[2021-12-18] MEDS ORDERED: AMIODARONE / D5W 150 MG/100 ML BAG IV STA (22:20)
[2021-12-18] MEDS ORDERED: PROMETHAZINE HCL 12.5 MG in SODIUM CHLORIDE 0.9% 50 ML IV PRN (22:21)
[2021-12-18] MEDS ORDERED: LIDOCAINE 5% TOP PRN (22:21)
[2021-12-18] MEDS ORDERED: ACETAMINOPHEN 1,000 MG/100 ML VIAL IV PRN (22:21)
[2021-12-18] MEDS ORDERED: PIPERACILL/TAZOBAC CONSULT ACTIVE PRN (22:26)
[2021-12-18] MEDS ORDERED: AMIODARONE 360MG / 200ML D5W IV ONE (22:28)
[2021-12-18] MEDS ORDERED: AMIODARONE 150MG / 100ML D5W IV ONE (22:28)
[2021-12-18] MEDS ORDERED: PIPERACILLIN/TAZOBACTAM 4.5 GM/120 ML BAG IV STA (22:28)
[2021-12-18] MEDS ORDERED: AMIODARONE / D5W 360 MG/200 ML BAG IV ONE (22:32)
[2021-12-18] MEDS ORDERED: FUROSEMIDE INJ 20 MG/2 ML VIAL IV ONE (22:38)
[2021-12-18] MEDS ORDERED: POTASSIUM CHLORIDE / WTR 10 MEQ/100 ML PLCT IV SCH (22:39)
--- NOTE | 2021-12-18 22:53 | XRay Report ---
XR chest 1V portable at 10:02 PM CLINICAL HISTORY: low o2. Follow-up right lung pneumonia COMPARISON STUDY: 12/18/2021 at 5:38 PM TECHNIQUE: 1 view of the chest FINDINGS: Single frontal view of the chest demonstrates the heart to again be enlarged. Compared to the earlier examination, there has been interval development of a confluent alveolar opacity within the left low er lobe as well. This rapid development suggest the possibility of aspiration. Right lower lobe alveo lar opacities again seen. The upper lungs remain clear. There are again bilateral pleural effusions a nd bibasilar atelectasis. There is no evidence for vascular congestion. There is no acute osseous pat hology. IMPRESSION: 1. Compared to the earlier examination, there are now bilateral lower lobe alveolar opacities charact eristic of multi lobar pneumonia as described. 2. There are again small bilateral pleural effusions and bibasilar atelectasis. ACT 112: Negative or not required by law. Electronically signed by: Mannie Roth M.D. 12/18/2021 10:52 PM
[2021-12-18] MEDS ORDERED: DOXYCYCLINE HYCLATE 100 MG in DEXTROSE 5% 100 ML IV ONE (23:00)
[2021-12-18] MEDS ORDERED: METOPROLOL TARTRATE 1 MG/ML VIAL IV ONE (23:08)
[2021-12-18] MEDS ORDERED: METOPROLOL TARTRATE 1 MG/ML VIAL IV STA (23:09)
[2021-12-18 23:11] LABS: Base Excess ABG -3.7 mEq/L (-9-1.8); HCO3 ABG 32 mmol/L (19-24); Oxygen Saturation ABG 90.4 % (90-95); PCO2 ABG 128 mmHg (35-46); PO2 ABG 81 mmHg (80-95)
[2021-12-18 23:12] LABS: Allen Test Pos (Pos)
[2021-12-18 23:13] LABS: pH ABG 7.02 (7.35-7.45)
[2021-12-18] MEDS ORDERED: MIDAZOLAM BOLUS FROM BAG IV PRN (23:26)
[2021-12-18] MEDS ORDERED: MIDAZOLAM HCL 125 MG/250 ML BAG IV PRN (23:26)
[2021-12-18] MEDS ORDERED: ETOMIDATE 2 MG/ML 20 ML VIAL IV ONE (23:28)
[2021-12-18] MEDS ORDERED: fentaNYL citrate 2,500 MCG/250 ML BAG IV SCH (23:30)
[2021-12-18] MEDS ORDERED: RAPID SEQUENCE INDUCTION BAG ONE (23:32)
[2021-12-18] MEDS ORDERED: SUCCINYLCHOLINE CHLORIDE 20 MG/ML 10 ML VIAL IV STA (23:42)
[2021-12-18] MEDS ORDERED: fentaNYL citrate 100 MCG/2 ML VIAL IV STA (23:42)
[2021-12-18] MEDS ORDERED: MIDAZOLAM HCL 1 MG/ML 2ML VIAL IV STA (23:42)
--- NOTE | 2021-12-18 23:51 | Emergency Department Note ---
ED Visit Note Endotracheal Intubation Indication: Hypoxic Resp failure The patient was on 100% oxygen via bipap prior to the procedure with saturation 88% at best due to pt's ALS and pulm infection. Suction, airway equipment, RSI drugs, respiratory equipment, and appropriate personnel were prepared prior to the initiation of the procedure. A time out was taken. Induction was performed with succinylcholine and etomidate. The procedure was performed by JAELYN Leonardo of the ICU. After observing the clinical benefit of the medications, the airway was visualized utilizing a glidescope. A 7.5 size ETT tube was placed atraumatically to 25 cm using standard technique. The cuff inflated without signs of malfunction. There were bilateral breath sounds, positive colormetric change, no gastric sounds, a good capnography waveform, and post procedure pulse oximetry was 82% but quickly recovered to 95%. Post intubation sedation and paralysis was administered using fentanyl and versed. Placement was confirmed by CXR. There were no complications. . : Aspiration pneumonia of right lower lobe Qualifiers: Aspiration pneumonia type: unspecified Qualified Code(s): J69.0 - Pneumonitis due to inhalation of food and vomit
--- NOTE | 2021-12-18 23:53 | Procedure Note ---
Procedure Note Date of Service December 18, 2021 Note INTUBATION PROCEDURE NOTE: Provider: JAELYN Leonardo Attending: Dr. Jmaes Fernandes A time-out was completed verifying correct patient, procedure, site, positioning. Patient was evaluated and required intubation for acute on chronic respiratory failure. Sedative agent used: Etomidate Paralysis agent used: Succinylcholine Emergent consent was implied given patients rapidly declining clinical status and need for airway protection. The patient was prepared in the appropriate fashion. Sedation was achieved utilizing etomidate and succinylcholine, per Dr. Renteria administration. The patient was easily ventilated using [id number] to achieve adequate oxygenation. A 8.0 [place] endotracheal tube was easily placed with assistance of gluidoscope through the vocal cords to 25 cm at the lip. The stylette was removed and balloon was inflated with 10mL of air. Appropriate Colorimetric change was appreciated. Bilateral breath sounds were heard without air sounds in the abdomen. Dr. Renteria was present for the entire procedure. Post Intubation Chest X-ray confirms placement without pneumothorax. Patient tolerated the procedure well and there were no immediate complications. Coding CPT Codes Resuscitation - Resuscitation: 15639 Endotracheal Intubation, emergency ([id number]) [facility] [place] Codes ([place]es) Resuscitation Resuscitation: 08233 Endotracheal Intubation, emergency
--- NOTE | 2021-12-18 23:53 | Critical Care Consultation ---
Date of Consultation December 18, 2021 Assessment & Plan (1) Acute hypoxemic respiratory failure: Reason Critically Ill: 36-year-old male with history of ALS presents to the ICU with acute on chronic respiratory failure requiring mechanical ventilation likely secondary to pneumonia. Neuro - ALS: Patient diagnosed 2013 and follows with the [facility] in [place]. He is nonambulatory and bedbound and requires continuous trilogy at baseline. According to the patient's he requires full assist to care and home health. Suspect that patient will be difficult to wean from ventilator and will likely require tracheostomy. Cardiac - Atrial fibrillationno prior history patient with A. fib RVR with rates as high as 150s. He was started on amiodarone drip in the ED. He was also given 5 mg IV metoprolol and converted to sinus rhythm but reentered A. fib. -We will attempt to rate control with amnio drip and beta-gilmer -We will start on IV heparin drip for now -Maximize electrolytes -Follow-up echo in a.m. -Continuous monitoring on telemetry Respiratory - Acute on chronic respiratory failurepatient with chronic respiratory failure but without hypoxia now presents with acute hypoxic respiratory failure secondary to pneumonia. He was also found to be in A. fib RVR with rates in the 150s and likely component of pulmonary edema. Required emergent intubation in the ED and now presents to the ICU mechanically ventilated. -Received IV Lasix 40 mg, will attempt to maintain negative fluid balance -Pneumonia likely secondary to aspiration. See ID below for management of pneumonia. Could consider diagnostic bronchoscopy? -Patient will likely be difficult to wean from ventilator due to advanced ALS. Will likely need tracheostomy which states was previously discussed as plan in the near future at the [facility] in [place]. -Follow-up chest x-ray and ABG in a.m. Wean vent as tolerated -Continuous end-tidal CO2 and pulse ox monitoring GI - N.p.o., PEG to gravity for now. RENAL/LYTES - Creatinine stable, monitor routine BMPs replete electrolytes as indicated - Foleystrict I's note ENDO - No history of diabetes, ICU hyperglycemic protocol HEME - H&H stable, monitor routine CBCs ID - Pneumoniapatient with evidence of multi focal pneumonia on chest x-ray and yellowish-green sputum. Elevated pro-Cali and WBC -Follow-up blood cultures and sputum culture. Follow-up urinalysis -Nasal MRSA negative. -COVID-19 negative -Continue broad-spectrum antibiotics doxycycline and Zosyn LINES/IV ACCESS - Peripheral IVs DVT PROPHYLAXIS - SCDs, heparin drip I have personally spent 55 minutes of critical care time in the direct management of this patient. This is a life/limb threatening event. This includes time spent evaluating patient, direct bedside care, chart review, placing orders, interpretation of diagnostic studies, discussion with consultants, patient, and family members, as well as other required patient management activities. This time is exclusive of all separately billable procedures, and teaching time and separate from and in addition to any other critical care service time. Thank you for allowing us to participate in the care of this patient. Please refer to my attending physician's documentation for any further recommendations. (2) Multifocal pneumonia: (3) Dysphagia: (4) ALS (amyotrophic lateral sclerosis): (5) DVT prophylaxis: (6) Atrial fibrillation with RVR: History of Present Illness Attending Physician: Les Chen MD History of Present Illness History was obtained from the patient's as the patient is nonverbal. Patient is a 36-year-old male with chronic respiratory failure and dysphagia requiring PEG secondary to ALS. He was first diagnosed with ALS in 2013 and has been on trilogy for 2.5 years which she now uses continuously. Patient normally follows with the [facility] in [place]. He is cared for with home health. Tracheostomy in the near future had been discussed as a possibility according to the . Earlier this evening patient noticed that his oxygen saturation dropped to the 80s and he was tachycardic. He had recent fever and loose stools. She noted that he was producing yellowish-green sputum. On arrival to the emergency department he was placed on BiPAP and became increasingly hypoxic. Ultimately, he required emergent intubation. Chest x-ray consistent with full multifocal pneumonia, bilateral pleural effusions and bibasilar atelectasis. He had elevated WBC, lactic acid, and procalcitonin. He was started on broad-spectrum antibiotics. EKG showed atrial fibrillation with RVR, he has no prior history. He was started on amiodarone drip and given 5 mg IV metoprolol. He is now being transferred to the ICU for further management at this time Allergies Allergy/AdvReac Type Severity Reaction Status Date / Time No Known Allergies Allergy Verified 12/18/21 18:21 Home Medications Medication Instructions Recorded Confirmed Type cholecalciferol (vitamin D3) 25 1,000 unit PO BID 12/02/19 12/18/21 History mcg (1,000 unit) tablet (Vitamin D3) coenzyme Q10 400 mg capsule (Co 400 mg PO QAM 12/02/19 12/18/21 History Q-10) ipratropium bromide 21 mcg (0.03 2 spray INTRANASAL BID 12/02/19 12/18/21 History %) nasal spray lysine 1,000 mg tablet 1,000 mg PO QAM 12/02/19 12/18/21 History riluzole 50 mg tablet 50 mg PO Q12 12/02/19 12/18/21 History artificial tears(hypromellose) 0.3 1 drp OPHTHALMIC (EYE) BID PRN 01/05/20 12/18/21 History % eye drops hydrocortisone 0.5 % topical cream 1 applic TOPICAL BID PRN 01/05/20 12/18/21 History nut. tx, spec. form, 1 ea FEEDING TUBE DAILY 01/05/20 12/18/21 History lac-free,iron-fos 0.08 gram-2 kcal/mL oral liquid (TwoCal HN) polyethylene glycol 3350 17 gram 17 g PO DAILY PRN 01/05/20 12/18/21 History oral powder packet zinc oxide 1 applic TOPICAL DAILY PRN 01/05/20 12/18/21 History Cannabis 1 dose PO DIRECTED PRN 12/05/21 12/18/21 History cat's claw (uncaria tomentosa) 400 400 mg PO DAILY 12/05/21 12/18/21 History mg capsule guaifenesin 100 mg/5 mL oral liquid 200 mg PO Q4H PRN 12/05/21 12/18/21 History ibuprofen 400 mg tablet 400 mg PO Q8H PRN 12/05/21 12/18/21 History lidocaine 5 % topical cream 1 applic TOPICAL BID PRN 12/05/21 12/18/21 History Susie Farm Standard Formula 325 - 975 ml FEEDING TUBE DAILY 12/18/21 12/18/21 History Patient History Medical History ALS (amyotrophic lateral sclerosis) DX FEBRUARY 2014 Cardiac murmur AN Dry eye syndrome Sleep apnea USES APAP DEVICE (DX WITH ALS) ALWAYS USING >WITH 3L AT HS ONLY Slow gastric motility D/T ALS Uses feeding tube SYRINGE FEEDING THRU PEG TUBE (STILL SWALLOWS PILLS ORALLY) Surgical History History of esophagogastroduodenoscopy (EGD) History of herniorrhaphy History of tooth extraction Hx of LASIK PRK S/P percutaneous endoscopic gastrostomy (PEG) tube placement Family History Mother Family history of diabetes mellitus Other No family history of adverse response to anesthesia Social History Smoking Status: Never smoker Second Hand Exposure: No; Hx Alcohol Use: Yes Alcohol type: beer Hx Substance Use: No Preferred Language: Yakut Communication Ability: Effective Ticker Installer Required: No Beliefs That Will Affect Care: None Current Living Situation: Spouse and Family Current Living Situation Comment: AND 3 SONS Other Information That Helps Us Care for You: No Feels Safe at Home: Yes Safety Concerns: Feels Safe At This Time Assistive Devices: Glasses Review of Systems Review of Systems: Unobtainable due to cognitive status and Unobtainable due to endotracheal tube Physical Exam Constitutional: + frail appearing and + mechanically ventilated Eyes: PERRL, conjunctivae normal, anicteric sclerae ENMT: external ear and nose normal, oropharynx normal Neck: trachea midline, no thyromegaly Respiratory: Breath sounds coarse and diminished bilaterally. Symmetrical chest wall movement. Cardiovascular: Rate/Rhythm: + tachycardic and + irregularly irregular Heart Sounds: normal S1 and normal S2; no murmur Vessels: no JVD Extremities: no edema Gastrointestinal (Abdomen): normal bowel sounds, soft, nontender, no hepatosplenomegaly Musculoskeletal: Unable to assess Skin: no rashes, warm and dry Neurologic: Unable to assess Psychiatric: Unable to assess Genitourinary: Dwelling Varela catheter present Results & Data Results & Data ([facility]) Vital Signs (Past 12 Hours) Vital Signs Temp Pulse Pulse Resp BP BP Pulse Ox 12/18/21 23:12 141 H 159/93 H 12/18/21 22:37 161 H 18 129/94 83 L 12/18/21 21:13 18 91 12/18/21 20:04 118 H 20 106/65 94 12/18/21 17:50 127 H 19 90 12/18/21 17:07 37.9 C H 127 H 19 105/74 90 Coding Level of Care Code Critical Care 1st 30-74 mins Diagnoses Acute hypoxemic respiratory failure J96.01 Multifocal pneumonia J18.9 Dysphagia R13.10 ALS (amyotrophic lateral sclerosis) G12.21 DVT prophylaxis Z29.9 Atrial fibrillation with RVR I48.91
[2021-12-19] MEDS ORDERED: ARTIFICIAL TEARS OP PRN (00:05)
[2021-12-19] MEDS ORDERED: ICU PROTOCOL FOR HYPERGLYCEMIA PRN (00:14)
[2021-12-19 00:40] LABS: iSTAT Art Bld Gas pCO2 Correct 56 mmHg (35-46); iSTAT Art Bld Gas pH Corrected 7.296 (7.35-7.45); iSTAT Arterial Blood Gas HCO3 27 meg/L (19-24); iSTAT Arterial Blood Gas pCO2 57 mmHg (35-46); iSTAT Arterial Blood Gas pH 7.29 (7.35-7.45); iSTAT Arterial Blood Gas pO2 148 mmHg (80-95); iSTAT Arterial Blood Gas pO2 C 145; iSTAT Carbon Dioxide 29 mmol/L (24-31); iSTAT FiO2 100 %; iSTAT Hematocrit 47 % (42-52); iSTAT Potassium 3.1 mmol/L (3.3-5.0); iSTAT Site R Radial; iSTAT Sodium 136 mmol/L (135-144)
[2021-12-19] MEDS ORDERED: METOPROLOL TARTRATE 1 MG/ML VIAL IV STA (00:48)
[2021-12-19] MEDS ORDERED: Heparin IV Adult Wt-Based Standard *NO* Bolus Protocol IV SCH (00:52)
[2021-12-19] MEDS: POTASSIUM CHLORIDE / WTR 10 MEQ/100 ML PLCT IV SCH ×5 (01:03→04:38)
[2021-12-19 01:14] LABS: Appearance Urine Clear (Clear); Bilirubin Urine Negative (Negative); Blood Urine Negative (Negative); Color Urine Dark Yellow; Epithelial Cell Urine Auto >30 /lpf (0-5); Glucose Urine UA Negative (Negative); Ketones Urine Negative (Negative); Leukocyte Esterase Urine Negative (Negative); Nitrite Urine Negative (Negative); Protein Urine 2+ (Negative); RBC Urine Automated 0-4 /hpf (0-4); Urobilinogen Urine Negative (Negative)
[2021-12-19] MEDS ORDERED: HEPARIN SODIUM/DEXTROSE 25,000 UNITS/500 ML BAG IV SCH (01:15)
[2021-12-19 01:33] LABS: Cast Urine Automated >30 /lpf (0-5)
[2021-12-19 01:34] LABS: Bacteria Urine Automated 1+ (Negative)
[2021-12-19] MEDS ORDERED: PIPERACILLIN/TAZOBACTAM 4.5 GM/120 ML BAG IV STA (04:08)
[2021-12-19] MEDS ORDERED: AMIODARONE / D5W 360 MG/200 ML BAG IV SCH (04:30)
[2021-12-19 05:05] LABS: Base Excess ABG 1.7 mEq/L (-9-1.8); HCO3 ABG 25 mmol/L (19-24); Oxygen Saturation ABG 98.7 % (90-95); PCO2 ABG 37 mmHg (35-46); PO2 ABG 123 mmHg (80-95); pH ABG 7.45 (7.35-7.45)
[2021-12-19 05:06] LABS: Allen Test Pos (Pos)
[2021-12-19 05:08] LABS: Hematocrit (blood only) 43.2 % (42-52); Hemoglobin 14.4 g/dL (14.0-18.0); Immature Granulocytes # (auto) 0.22 K/uL (0.00-0.02); Immature Granulocytes % (auto) 1.5 %; Lymphocytes # (auto) 0.66 K/uL (1.2-3.4); Lymphocytes % (auto) 4.5 %; Mean Corpuscular Hemoglobin 28.9 pg (25-34); Mean Corpuscular Hgb Conc 33.3 g/dL (32-36); Mean Corpuscular Volume 86.7 fL (80-100); Mean Platelet Volume 10.3 fL (7.4-10.4); Monocytes # (auto) 0.03 K/uL (0.11-0.59); Monocytes % (auto) 0.2 %; Neutrophils # (auto) 13.81 K/uL (1.4-6.5); Neutrophils % (auto) 93.8 %; Platelet Count 303 K/uL (130-400); RDW Coefficient of Variation 16.3 % (11.5-14.5); RDW Standard Deviation 51.6 fL (36.4-46.3); Red Blood Count 4.98 M/uL (4.7-6.1); White Blood Count 14.72 K/uL (4.8-10.8)
[2021-12-19 05:28] LABS: Anion Gap 9 (3-11); Blood Urea Nitrogen 12 mg/dl (6-23); Calcium 8.8 mg/dl (8.5-10.1); Carbon Dioxide 24 mmol/L (21-32); Chloride 101 mmol/L (98-107); Creatinine Clr Calc Pharmacy 571.3 ml/min; Est GFR (African American) > 150.0 ml/min; Est GFR (Non-African American) > 150.0 ml/min; Glucose 200 mg/dl (70-99(Fasting)); Magnesium 1.7 mg/dl (1.7-2.4); Phosphorus < 1.0 mg/dl (2.5-4.9); Sodium 134 mmol/L (136-145)
[2021-12-19] MEDS ORDERED: POTASSIUM PHOS 3 MMOL/1 ML INFUSION IV STA (06:09)
[2021-12-19] MEDS: MAGNESIUM SULFATE / D5W 1 GM/100 ML BAG IV SCH ×3 (06:15→10:37)
--- NOTE | 2021-12-19 06:36 | XRay Report ---
XR chest 1V portable HISTORY: 36 years-old Male ETT acute respiratory failure COMPARISON: Chest radiograph of same day at 10:01 PM TECHNIQUE: Portable AP view of the chest FINDINGS: Cardiac silhouette is enlarged. Endotracheal tube overlies the midline, 5.3 cm superior to the dannie . No pneumothorax. Layering pleural effusions with bibasilar predominant consolidation. Interstitial coarsening. Bones appear grossly intact. IMPRESSION: Status post placement of an endotracheal tube terminating 5.3 cm superior to the dannie. ACT 112: Negative or not required by law. The above report was generated using voice recognition software. It may contain grammatical, syntax o r spelling errors. Electronically signed by: James Brody M.D. 12/19/2021 6:35 AM
[2021-12-19] MEDS ORDERED: POTASSIUM PHOSPHATE 15 MMOL in SODIUM CHLORIDE 0.9% 250 ML IV ONE (07:00)
[2021-12-19 07:12] LABS: Estimated Average Glucose 103 mg/dl; Hemoglobin A1C 5.2 % (4.5-5.6)
[2021-12-19] MEDS ORDERED: [UNRECOGNIZED DRUG - OTHER] feeding tube SCH (09:00)
[2021-12-19] MEDS ORDERED: ENOXAPARIN INJ 40 MG/0.4 ML SYR SQ SCH (09:00)
[2021-12-19] MEDS ORDERED: [UNRECOGNIZED DRUG - OTHER] feeding tube SCH (09:00)
[2021-12-19] MEDS ORDERED: Nursing to Pharmacy Communication SCH (09:30)
--- NOTE | 2021-12-19 09:52 | XRay Report ---
SINGLE VIEW CHEST CLINICAL HISTORY: Respiratory failure. FINDINGS: An AP, portable, upright chest radiograph is compared to study dated 12/18/2021. An endotrac heal tube has been advanced, now projecting 4 cm above the dannie. The cardiomediastinal silhouette i s unremarkable. There are layering pleural effusions with perihilar opacities and bibasilar consolida tion. No pneumothorax is seen. The bony thorax is grossly intact. IMPRESSION: 1. An endotracheal tube is in place as above. 2. Layering pleural effusions with perihilar and bibasilar consolidation. This is similar to yesterda y. ACT 112: Negative or not required by law. Electronically signed by: Darvin Rodriguez M.D. 12/19/2021 9:50 AM
[2021-12-19] MEDS ORDERED: PIPERACILLIN/TAZOBACTAM 4.5 GM in DEXTROSE 5% 100 ML IV SCH (10:00)
[2021-12-19 10:06] LABS: Partial Thromboplastin Ratio 2.7
[2021-12-19] MEDS ORDERED: DOXYCYCLINE HYCLATE 100 MG in DEXTROSE 5% 100 ML IV SCH (11:00)
--- NOTE | 2021-12-19 11:24 | Cardiology Consultation ---
Date of Consultation December 19, 2021 Assessment & Plan (1) Multifocal pneumonia: (2) Atrial fibrillation with RVR: (3) Left ventricular systolic dysfunction: 36-year-old male with history of ALS, aspiration, home noninvasive ventilator support, presents with progressive respiratory insufficiency. Clinical findings are suggestive of pneumonia with elevated lactate level, elevated procalcitonin level, relatively low BNP screen. Patient with an episode of atrial fibrillation RVR that lasted approximately 1 hour last evening, converting back to sinus rhythm with IV metoprolol and amiodarone infusion. He was transiently treated with heparin for stroke prophylaxis, with heparin on hold at this time pending possible tracheostomy today. Echocardiogram reveals mild global left ventricular hypokinesis, perhaps acute, no prior echocardiograms available for comparison. Recommend ongoing amiodarone therapy pending procedure today, along with antibiotics and diuresis as necessary. Blood pressures been on the lower side, and therefore at present he is not a candidate for beta-gilmer therapy or ACEI / ARB. Will repeat EKG now that he is in SR for comparison. History of Present Illness Attending Physician: Les Chen MD History of Present Illness Jose Enrique Doll is 36 year old male seen in cardiology consultation per the request of Dr Hernandez for the evaluation of newly recognized paroxysmal atrial fibrillation with rapid ventricular response. Patient seen in ICU room 111. Patient has a history of respiratory failure secondary to ALS and is iram Trilogy ventilator at home. He has a history of aspiration and therefore has a PEG tube. Patient was noted to be in respiratory distress by his spouse with pulse oximetry down to the 80s and heart rate elevated into the 130s. He presented via the emergency room overnight last night with progressive respiratory insufficiency, and underwent endotracheal tube intubation just prior to 2346 last night. Telemetry reveals that on 12/18/2021 at 22:12 patient reverted from sinus tachycardia at about 100 bpm to atrial fibrillation in the 150s. He subsequently converted to sinus rhythm while on an amiodarone infusion at 23:14. At present, sinus rhythm in the 90s noted on telemetry. Patient remains on an amiodarone infusion. Allergies Allergy/AdvReac Type Severity Reaction Status Date / Time No Known Allergies Allergy Verified 12/18/21 18:21 Home Medications Medication Instructions Recorded Confirmed Type cholecalciferol (vitamin D3) 25 1,000 unit PO BID 12/02/19 12/18/21 History mcg (1,000 unit) tablet (Vitamin D3) coenzyme Q10 400 mg capsule (Co 400 mg PO QAM 12/02/19 12/18/21 History Q-10) ipratropium bromide 21 mcg (0.03 2 spray INTRANASAL BID 12/02/19 12/18/21 History %) nasal spray lysine 1,000 mg tablet 1,000 mg PO QAM 12/02/19 12/18/21 History riluzole 50 mg tablet 50 mg PO Q12 12/02/19 12/18/21 History artificial tears(hypromellose) 0.3 1 drp OPHTHALMIC (EYE) BID PRN 01/05/20 12/18/21 History % eye drops hydrocortisone 0.5 % topical cream 1 applic TOPICAL BID PRN 01/05/20 12/18/21 History nut. tx, spec. form, 1 ea FEEDING TUBE DAILY 01/05/20 12/18/21 History lac-free,iron-fos 0.08 gram-2 kcal/mL oral liquid (TwoCal HN) polyethylene glycol 3350 17 gram 17 g PO DAILY PRN 01/05/20 12/18/21 History oral powder packet zinc oxide 1 applic TOPICAL DAILY PRN 01/05/20 12/18/21 History Cannabis 1 dose PO DIRECTED PRN 12/05/21 12/18/21 History cat's claw (uncaria tomentosa) 400 400 mg PO DAILY 12/05/21 12/18/21 History mg capsule guaifenesin 100 mg/5 mL oral liquid 200 mg PO Q4H PRN 12/05/21 12/18/21 History ibuprofen 400 mg tablet 400 mg PO Q8H PRN 12/05/21 12/18/21 History lidocaine 5 % topical cream 1 applic TOPICAL BID PRN 12/05/21 12/18/21 History Susie [employer] Standard Formula 325 - 975 ml FEEDING TUBE DAILY 12/18/21 12/18/21 History Patient History Medical History ALS (amyotrophic lateral sclerosis) DX FEBRUARY 2014 Cardiac murmur AN INFANT Dry eye syndrome Sleep apnea USES APAP DEVICE (DX WITH ALS) ALWAYS USING >WITH 3L AT HS ONLY Slow gastric motility D/T ALS Uses feeding tube SYRINGE FEEDING THRU PEG TUBE (STILL SWALLOWS PILLS ORALLY) Surgical History History of esophagogastroduodenoscopy (EGD) History of herniorrhaphy History of tooth extraction Hx of LASIK PRK S/P percutaneous endoscopic gastrostomy (PEG) tube placement Family History Mother Family history of diabetes mellitus Other No family history of adverse response to anesthesia Social History Smoking Status: Never smoker Second Hand Exposure: No; Hx Alcohol Use: Yes Alcohol type: beer Hx Substance Use: No Preferred Language: Pashto Communication Ability: Effective Seasonal Delivery Driver Required: No Beliefs That Will Affect Care: None Current Living Situation: Spouse and Family Current Living Situation Comment: AND 3 SONS Feels Safe at Home: Yes Assistive Devices: Glasses Review of Systems Review of Systems: All systems reviewed & are unremarkable except as noted in HPI & below Physical Exam Physical Exam: Temp Pulse Resp BP Pulse Ox 36.5 C 95 H 22 84/65 L 95 12/19/21 00:05 12/19/21 11:15 12/19/21 11:15 12/19/21 02:25 12/19/21 11:15 Communicates with the assistance of an iPad application, no acute distress at present Respiratory: Coarse breath sounds bilaterally at the bases Cardiovascular: Rate/Rhythm: regular rate and regular rhythm Heart Sounds: normal S1 and normal S2; no murmur Extremities: no edema Neurologic: Diffuse weakness noted consistent with history of ALS Results & Data ([facility]) Vital Signs (Past 12 Hours) Vital Signs Temp Pulse Pulse Resp BP BP Pulse Ox 12/19/21 07:33 95 H 22 94 12/19/21 05:29 22 12/19/21 03:58 94 H 22 97 12/19/21 02:25 86 84/65 L 12/19/21 00:40 128 H 20 106/90 94 12/19/21 00:35 22 12/19/21 00:05 36.5 C 150 H 22 110/73 93 12/19/21 00:00 138 H 23 94 Laboratory Results Cardiac Enzymes 12/18/21 12/18/21 Range/Units 17:30 19:57 AST 22 (13-39) U/L Troponin I 0.04 (0-0.04) ng/ml B-Natriuretic Peptide 171 H (0-100) pg/ml Coagulation 12/18/21 12/18/21 12/19/21 Range/Units 17:30 19:57 08:44 PT 11.6 (9.0-12.0) Seconds APTT 38.8 H 72.0 H* (21.0-31.0) Seconds B-Natriuretic Peptide 171 H (0-100) pg/ml CBC 12/18/21 12/19/21 Range/Units 17:30 04:40 WBC 13.64 H 14.72 H (4.8-10.8) K/uL RBC 5.40 4.98 (4.7-6.1) M/uL Hgb 15.7 14.4 (14.0-18.0) g/dL Hct 46.8 43.2 (42-52) % Plt Count 380 303 (130-400) K/uL Neut # (Auto) 12.69 H 13.81 H (1.4-6.5) K/uL Lymph # (Auto) 0.59 L 0.66 L (1.2-3.4) K/uL Sunflower # (Auto) 0.15 0.03 L (0.11-0.59) K/uL Eos # (Auto) 0.06 0.00 (0-0.5) K/uL Baso # (Auto) 0.00 0.00 (0-0.2) K/uL Comprehensive Metabolic Panel 12/18/21 12/19/21 12/19/21 Range/Units 17:30 04:40 05:37 Sodium 134 L 134 L (136-145) mmol/L Potassium 3.0 L 3.8 D (3.5-5.1) mmol/L Chloride 100 101 (98-107) mmol/L Carbon Dioxide 24 24 (21-32) mmol/L BUN 10 12 (6-23) mg/dl Creatinine < 0.20 L < 0.20 L (0.6-1.4) mg/dl Glucose 164 H 200 H (70-99(Fasting)) mg/dl Calcium 9.5 8.8 (8.5-10.1) mg/dl AST 22 (13-39) U/L ALT 37 (7-52) U/L Alkaline Phosphatase 94 (34-104) U/L Total Protein 6.7 (6.0-8.3) gm/dl Albumin 3.4 (3.4-5.0) gm/dl SARS-CoV-2 screen negative Diagnostic Findings Initial chest x-ray revealed findings consistent of right base pneumonia, small pleural effusions Echocardiogram performed today reviewed independently: Study is technically limited, mild global left ventricular hypokinesis present, LVEF 45-50%. The right ventricle is not well visualized. Grade 1 diastolic dysfunction noted. No significant valvular pathology. EKG performed 12/19/2020 12:43 AM: Atrial fibrillation with rapid ventricular response at 144 bpm, mild nonspecific repolarization changes.
[2021-12-19] MEDS ORDERED: ACETAMINOPHEN 325 MG TAB PO PRN (12:48)
--- NOTE | 2021-12-19 12:48 | Critical Care Progress Note ---
Date of Service December 19, 2021 Assessment & Plan (1) Multifocal pneumonia: (2) Acute hypoxemic respiratory failure: (3) Hypercapnic respiratory failure: Plan: Reason Critically Ill: 36-year-old male with history of ALS presents to the ICU with acute on chronic hypoxemic and hypercarbic respiratory failure requiring mechanical ventilation likely secondary to pneumonia. 24-hour events: Patient presented to the emergency room. He was found to be in hypoxemic and hypercarbic respiratory failure with pulmonary infiltrates suspicious of pneumonia. He underwent intubation in the emergency room. He was found to be in atrial fibrillation with rapid ventricular response. Amiodarone was initiated. He is converted to normal sinus rhythm. He is currently on a heparin drip. Neuro - ALS: Patient diagnosed 2013 and follows with the [facility] in [place]. He is n onambulatory and bedbound and requires continuous trilogy at baseline. According to the patient's he requires full assist to care and home health. He was scheduled to undergo tracheostomy next month in [place]. See comments regarding disposition below. Cardiac - Atrial fibrillationno prior history patient with A. fib RVR with rates as high as 150s. Now in sinus. Okay to convert IV amiodarone to oral. Continue anticoagulation with heparin. Appreciate cardiology consultation. Lactate was mildly elevated and will be trended over time. Respiratory - Acute on chronic respiratory failurepatient with chronic respiratory failure but without hypoxia now presents with acute hypoxic respiratory failure secondary to pneumonia. He appears comfortable on the ventilator. He should u ndergo tracheostomy placement. [facility] in [facility] in [place] and would like the patient transferred there. Discussed with the patient and his at bedside. They are agreeable for transfer. [facility] will [facility] later today. Continue mechanical ventilation for now GI - Nutrition consult for tube feeding. Will discuss with family whether or not he receives bolus feedings or continuous feedings. RENAL/LYTES - Creatinine stable, monitor routine BMPs replete electrolytes as indicated - Can likely transition to condom catheter to track I's and O's ENDO - No history of diabetes, ICU hyperglycemic protocol HEME - H&H stable, monitor routine CBCs ID - Pneumoniacommunity-acquired: Continue doxycycline. Discontinue Zosyn and replace with Rocephin. Await culture data and follow clinical response to therapy. LINES/IV ACCESS - Peripheral IVs DVT PROPHYLAXIS - SCDs, heparin drip Disposition: Met with case management, patient, and . As [facility] to [facility] patient, will try and get him transferred there today. Will defer additional intervention such as tracheostomy until these can be performed through the [facility]. The patient and family are in agreement to transfer. I have personally spent 50 minutes of critical care time in the direct management of this patient. This is a life/limb threatening event. This includes time spent evaluating patient, direct bedside care, chart review, placing orders, interpretation of diagnostic studies, discussion with consultants, patient, and family members, as well as other required patient management activities. This time is exclusive of all separately billable procedures, and teaching time and separate from and in addition to any other critical care service time. Admission and Anticipated Discharge Date Admission Date: December 18, 2021 Subjective Patient seen and examined. EMR reviewed. Discussed with critical care NETTIE. Discussed with and patient at bedside as well as on multidisciplinary rounds. Patient is awake alert on the ventilator. He is able to communicate by blinking and the use of ocular directed iPad. He reports no complaints this morning. Review of Systems Review of Systems: Limited review of systems secondary to the patient's bea rological condition. He reports no new complaints Physical Exam Constitutional: + frail appearing and + mechanically ventilated Eyes: PERRL, conjunctivae normal, anicteric sclerae ENMT: external ear and nose normal, oropharynx normal Neck: trachea midline, no thyromegaly Respiratory: Breath sounds coarse and diminished bilaterally. Symmetrical chest wall movement. Cardiovascular: Rate/Rhythm: + tachycardic and + irregularly irregular Heart Sounds: normal S1 and normal S2; no murmur Vessels: no JVD Extremities: no edema Gastrointestinal (Abdomen): normal bowel sounds, soft, nontender, no hepatosplenomegaly Musculoskeletal: Unable to assess Skin: no rashes, warm and dry Neurologic: Unable to assess Psychiatric: Unable to assess Genitourinary: Dwelling Varela catheter present Results & Data Results & Data ([facility]) Vital Signs (Past 12 Hours) Vital Signs Pulse Resp BP Pulse Ox 12/19/21 12:00 92 H 22 102/76 92 12/19/21 11:30 92 H 22 106/75 92 12/19/21 11:15 95 H 22 95 12/19/21 11:00 90 22 92/70 L 94 12/19/21 10:30 91 H 22 96/72 L 92 12/19/21 10:00 91 H 22 91/68 L 94 12/19/21 09:30 94 H 22 98/77 L 93 12/19/21 09:00 83 22 99/77 L 94 12/19/21 08:30 94 H 22 103/74 94 12/19/21 08:00 86 22 93/69 L 94 12/19/21 07:33 95 H 22 94 12/19/21 07:30 92 H 22 98/72 L 93 12/19/21 07:00 96 H 22 108/80 94 12/19/21 05:29 22 12/19/21 03:58 94 H 22 97 12/19/21 02:25 86 84/65 L Critical Care Results & Data Vital Signs (Past 12 Hours) Vital Signs Pulse Resp BP Pulse Ox 12/19/21 12:00 92 H 22 102/76 92 12/19/21 11:30 92 H 22 106/75 92 12/19/21 11:15 95 H 22 95 12/19/21 11:00 90 22 92/70 L 94 12/19/21 10:30 91 H 22 96/72 L 92 12/19/21 10:00 91 H 22 91/68 L 94 12/19/21 09:30 94 H 22 98/77 L 93 12/19/21 09:00 83 22 99/77 L 94 12/19/21 08:30 94 H 22 103/74 94 12/19/21 08:00 86 22 93/69 L 94 12/19/21 07:33 95 H 22 94 12/19/21 07:30 92 H 22 98/72 L 93 12/19/21 07:00 96 H 22 108/80 94 12/19/21 05:29 22 12/19/21 03:58 94 H 22 97 12/19/21 02:25 86 84/65 L Lab & Micro Results (Past 24 Hours) RBC 4.98 M/uL (4.7-6.1) 12/19/21 WBC 14.72 K/uL (4.8-10.8) H 12/19/21 Hgb 14.4 g/dL (14.0-18.0) 12/19/21 Hct 43.2 % (42-52) 12/19/21 MCV 86.7 fL (80-100) 12/19/21 MCH 28.9 pg (25-34) 12/19/21 MCHC 33.3 g/dL (32-36) 12/19/21 RDW Standard Deviation 51.6 fL (36.4-46.3) H 12/19/21 RDW Coefficient of Variation 16.3 % (11.5-14.5) H 12/19/21 Plt Count 303 K/uL (130-400) 12/19/21 MPV 10.3 fL (7.4-10.4) 12/19/21 Neutrophils (%) (Auto) 93.8 % 12/19/21 Lymphocytes (%) (Auto) 4.5 % 12/19/21 Monocytes # (Auto) 0.03 K/uL (0.11-0.59) L 12/19/21 Eosinophils # (Auto) 0.00 K/uL (0-0.5) 12/19/21 Immature Granulocyte % (Auto) 1.5 % 12/19/21 Neutrophils # (Auto) 13.81 K/uL (1.4-6.5) H 12/19/21 Lymphocytes # (Auto) 0.66 K/uL (1.2-3.4) L 12/19/21 Monocytes # (Auto) 0.03 K/uL (0.11-0.59) L 12/19/21 Eosinophils # (Auto) 0.00 K/uL (0-0.5) 12/19/21 Basophils # (Auto) 0.00 K/uL (0-0.2) 12/19/21 Immature Granulocyte # (Auto) 0.22 K/uL (0.00-0.02) H 12/19/21 Na 134 mmol/L (136-145) L 12/19/21 K 3.8 mmol/L (3.5-5.1) 12/19/21 Cl 101 mmol/L (98-107) 12/19/21 CO2 24 mmol/L (21-32) 12/19/21 Anion Gap 9 (3-11) 12/19/21 BUN 12 mg/dl (6-23) 12/19/21 Creatinine < 0.20 mg/dl (0.6-1.4) L 12/19/21 Estimated GFR ( Amer) > 150.0 ml/min 12/19/21 Estimated GFR (Non-Af Amer) > 150.0 ml/min 12/19/21 BUN/Creatinine Ratio TNP 12/19/21 Glu 200 mg/dl (70-99(Fasting)) H 12/19/21 Ca 8.8 mg/dl (8.5-10.1) 12/19/21 Phosphorus Level < 1.0 mg/dl (2.5-4.9) L* 12/19/21 Total Bilirubin 1.4 mg/dl (0.2-1.0) H 12/18/21 AST 22 U/L (13-39) 12/18/21 ALT 37 U/L (7-52) 12/18/21 Alkaline Phosphatase 94 U/L (34-104) 12/18/21 TP 6.7 gm/dl (6.0-8.3) 12/18/21 Albumin 3.4 gm/dl (3.4-5.0) 12/18/21 Globulin 3.3 gm/dl (2.5-4.0) 12/18/21 Albumin/Globulin Ratio 1.0 (0.9-2) 12/18/21 Mg 1.7 mg/dl (1.7-2.4) 12/19/21 04:40 12/19/21 Calcium Level 8.8 mg/dl (8.5-10.1) 12/19/21 04:40 12/19/21 Prothromb Time International Ratio 1.2 (0.9-1.1) H 12/18/21 17:30 12/18/21 Blood Gas Barometric Pressure 743.9 mm/Hg 12/19/21 04:40 12/19/21 Arterial Blood pH 7.45 (7.35-7.45) 12/19/21 04:40 12/19/21 Arterial Blood Partial Pressure CO2 37 mmHg (35-46) 12/19/21 04:40 12/19/21 Arterial Blood Partial Pressure O2 123 mmHg (80-95) H 12/19/21 04:40 12/19/21 Arterial Blood HCO3 25 mmol/L (19-24) H 12/19/21 04:40 12/19/21 Arterial Blood Base Excess 1.7 mEq/L (-9-1.8) 12/19/21 04:40 12/19/21 Arterial Blood Oxygen Saturation 98.7 % (90-95) H 12/19/21 04:40 12/19/21 Blood Gas Oxygen Given ROOM AIR 12/19/21 04:40 12/19/21 Praveen Test Pos (Pos) 12/19/21 04:40 12/19/21 Blood Gas Barometric Pressure 743.9 mm/Hg 12/19/21 04:40 12/19/21 Diagnostic Findings (Past 24 Hours) Chest X-Ray 12/18/21 17:50 XR chest 1V portable CLINICAL HISTORY: SEPSIS. Evaluate cardiopulmonary status COMPARISON STUDY: 01/05/2020 TECHNIQUE: 1 view of the chest FINDINGS: Single frontal view of the chest demonstrates the cardiomediastinal silhouette to be within normal limits. Compared to previous examination, there is chronic scarring present involving the left hemithorax. However, there has been interval development of an alveolar opacity involving the right lower lobe characteristic of right lung pneumonia. The upper lungs are clear bilaterally. There is blunting the costophrenic angles bilaterally characteristic of small bilateral pleural effusions. Bibasilar atelectasis is also present . There is no evidence for vascular congestion. There is no acute osseous pathology. IMPRESSION: 1. Confluent alveolar opacity the right lung base most characteristic of pneumonia. 2. Chronic scarring at the left lung base which appears unchanged. 3. Small bilateral pleural effusions and bibasilar atelectasis are also present. ACT 112: Negative or not required by law. Electronically signed by: Mannie Roth M.D. 12/18/2021 6:07 PM Chest X-Ray 12/18/21 22:19 XR chest 1V portable at 10:02 PM CLINICAL HISTORY: low o2. Follow-up right lung pneumonia COMPARISON STUDY: 12/18/2021 at 5:38 PM TECHNIQUE: 1 view of the chest FINDINGS: Single frontal view of the chest demonstrates the heart to again be enlarged. Compared to the earlier examination, there has been interval development of a confluent alveolar opacity within the left lower lobe as well. This rapid development suggest the possibility of aspiration. Right lower lobe alveolar opacities again seen. The upper lungs remain clear. There are again bilateral pleural effusions and bibasilar atelectasis. There is no evidence for vascular congestion. There is no acute osseous pathology. IMPRESSION: 1. Compared to the earlier examination, there are now bilateral lower lobe alveolar opacities characteristic of multi lobar pneumonia as described. 2. There are again small bilateral pleural effusions and bibasilar atelectasis. ACT 112: Negative or not required by law. Electronically signed by: Mannie Roth M.D. 12/18/2021 10:52 PM Chest X-Ray 12/18/21 23:42 XR chest 1V portable HISTORY: 36 years-old Male ETT acute respiratory failure COMPARISON: Chest radiograph of same day at 10:01 PM TECHNIQUE: Portable AP view of the chest FINDINGS: Cardiac silhouette is enlarged. Endotracheal tube overlies the midline, 5.3 cm superior to the dannie. No pneumothorax. Layering pleural effusions with bibasilar predominant consolidation. Interstitial coarsening. Bones appear grossly intact. IMPRESSION: Status post placement of an endotracheal tube terminating 5.3 cm superior to the dannie. ACT 112: Negative or not required by law. The above report was generated using voice recognition software. It may contain grammatical, syntax or spelling errors. Electronically signed by: James Brody M.D. 12/19/2021 6:35 AM Chest X-Ray 12/19/21 07:00 SINGLE VIEW CHEST CLINICAL HISTORY: Respiratory failure. FINDINGS: An AP, portable, upright chest radiograph is compared to study dated 12/18/2021. An endotracheal tube has been advanced, now projecting 4 cm above the dannie. The cardiomediastinal silhouette is unremarkable. There are layering pleural effusions with perihilar opacities and bibasilar consolidation. No pneumothorax is seen. The bony thorax is grossly intact. IMPRESSION: 1. An endotracheal tube is in place as above. 2. Layering pleural effusions with perihilar and bibasilar consolidation. This is similar to yesterday. ACT 112: Negative or not required by law. Electronically signed by: Darvin Rodriguez M.D. 12/19/2021 9:50 AM I & O Totals 24 Hours 12/18/21 12/19/21 12/20/21 06:59 06:59 06:59 Intake Total 1374.667 / 0670.308 8932 / 1293 Output Total 335 / 335 Balance 1039.667 / 9978.229 2074 / 1293 Cumulative 12/18/21 16:53 thru 12/19/21 11:28 Intake Total 2667.667 Output Total 335 Balance 2332.667 RT Ventilator Mngmt (Last Documented) Ventilator Ordered Settings Ventilator Support Mode Assist Control 12/19/21 11:15 Respiratory Rate 22 12/19/21 12:00 Ventilator Tidal Volume 440 12/19/21 11:15 Setting Minute Ventilation 9.6 12/19/21 11:15 Positive End Expiratory 6 12/19/21 11:15 Pressure Fraction of Inspired Oxygen 40 12/19/21 11:15 Machine Comment APARTMENT ASSISTANT MANAGER Ruben aware of changes- post 12/19/21 05:29 ABG done by lab Ventilator - PT Measurements Respiratory Rate 22 Exhaled Tidal Volume 440 Minute Ventilation 9.6 Peak Inspiratory Airway 20 Pressure Plateau Pressure 15 Respiratory Cycle Inspiratory: 1:2.3 Expiratory Ratio Inspiratory Phase Time 0.8 End-Tidal CO2 25 Static Lung Compliance 48.89 Dynamic Lung Compliance 31.43 Normal Static Lung Compliance 47.00 Coding Level of Care Code Critical Care 1st 30-74 mins Diagnoses Multifocal pneumonia J18.9 Acute hypoxemic respiratory failure J96.01 Hypercapnic respiratory failure J96.92 Time Spent (min) 50
--- NOTE | 2021-12-19 13:51 | Electrocardiogram Report ---
Test Reason : Blood Pressure : / mmHG Vent. Rate : 144 BPM Atrial Rate : 326 BPM P-R Int : 000 ms QRS Dur : 102 ms QT Int : 336 ms P-R-T Axes : 000 053 081 degrees QTc Int : 520 ms Atrial fibrillation with rapid ventricular response Nonspecific ST and T wave abnormality Abnormal ECG When compared with ECG of 05-JAN-2020 13:15, Atrial fibrillation has replaced Sinus rhythm Vent. rate has increased BY [address] now depressed in Anterior leads Confirmed by Dwight Corley ([id number]) on 12/19/2021 1:51:10 PM Referred By: REFERRED SELF Confirmed By:Dwight Corley
--- NOTE | 2021-12-19 13:59 | Electrocardiogram Report ---
Test Reason : Blood Pressure : / mmHG Vent. Rate : 127 BPM Atrial Rate : 127 BPM P-R Int : 122 ms QRS Dur : 094 ms QT Int : 334 ms P-R-T Axes : 022 044 071 degrees QTc Int : 485 ms Sinus tachycardia Incomplete right bundle branch block Borderline ECG When compared with ECG of 19-DEC-2020 00:43, (unconfirmed) HR has increased Confirmed by Dwight Corley ([id number]) on 12/19/2021 1:59:03 PM Referred By: REFERRED SELF Confirmed By:Dwight Corley
--- NOTE | 2021-12-19 15:35 | Electrocardiogram Report ---
Test Reason : Blood Pressure : / mmHG Vent. Rate : 093 BPM Atrial Rate : 093 BPM P-R Int : 146 ms QRS Dur : 106 ms QT Int : 370 ms P-R-T Axes : -02 039 068 degrees QTc Int : 460 ms Normal sinus rhythm Incomplete right bundle branch block Borderline ECG When compared with ECG of 19-DEC-2020 00:43, Sinus rhythm has replaced Atrial fibrillation Vent. rate has decreased BY 51 BPM Incomplete right bundle branch block is now Present Confirmed by Dwight Corley ([id number]) on 12/19/2021 3:35:05 PM Referred By: REFERRED SELF Confirmed By:Dwight Corley
--- NOTE | 2021-12-19 16:43 | Discharge Summary ---
Date of Service December 19, 2021 Admission HPI Per Admitting Provider History obtained from family and records. Limited history from patient secondary to O2 mask. Medical history significant for chronic respiratory failure secondary to ALS on Trilogy ventilator. Aspiration risk status post PEG tube placement, chronic anemia (baseline hemoglobin of 13). Last confinement January 2024 community-acquired pneumonia in the setting of ALS. Patient completed ceftriaxone and azithromycin course. Multiple episodes of trace silent aspiration were seen with swallowing. Patient subsequently sent home on Augmentin. Oxygen dropped to 80s on room air today as per and heart rate increased to 130s as per account. Patient noted to be bringing up yellow-green sputum. Loose stools noted without abdominal pain complaints. No known recent sick COVID-19 contacts. Patient completed COVID-19 vaccination. No recent outpatient antibiotic Rx. Patient brought to the ER for evaluation. Medical History as above Surgical History : PEG tube placement Family History : Asthma, IPF Personal/Social history : Non-smoker, no EtOH intake, disabled, lives with Principal Diagnosis Acute hypoxic respiratory failure due to pneumonia Discharge Exam General: Lying in bed, mechanically ventilated, awake alert HEENT: EOMI, SARAH Chest: Fair breath sounds anteriorly CVS: Regular rate and rhythm, normal heart sounds, no murmur Abdomen: Soft, non tender, not distended, normal bowel sounds Neuro: Awake, alert, responds with eye blinking, generally weak due to ALS Extremities: No cyanosis, clubbing or edema Discharge Data Allergies Allergy/AdvReac Type Severity Reaction Status Date / Time No Known Allergies Allergy Verified 12/18/21 18:21 Consultations 12/18/21 21:19 Consult Pulmonology Routine 12/18/21 22:59 Consult Package Dyeing Machine Operator Routine 12/19/21 01:12 Consult Cardiology Routine 12/19/21 14:17 Burn CD for patient Stat Hospital Course (1) Acute hypoxemic respiratory failure: This patient with ALS since 2013 (non ambulatory and bedbound at baseline) with chronic respiratory failure and dysphagia requiring PEG and on continuous trilogy. He follows with [facility] in [place] and has home health. He presented to ED yesterday with tachycardia and respiratory symptoms. He was found to have acute hypoxic respiratory failure due to multifocal pneumonia as well as Afib with RVR. He was initially on BIPAP and later emergently intubated in the ED due to increasing hypoxia, He was admitted to ICU. He was started on empiric antibiotics. He converted to NSR with amiodarone and betablocker. He was started on heparin drip. Since he gets all his care through [facility] and there is possibility of tracheostomy, he is being transferred to [facility] for further care and management per family request. He is awake, alert and stable for transfer during my evaluation. Package Dyeing Machine Operator to sign out to the accepting provider per RN. Acute hypoxic respiratory failure- currently mechanically ventilated, possible tracheostomy Multifocal Pneumonia- on empiric antibiotics Afib with RVR- converted to NSR. On amio drip and betablocker ALS- [facility], bed[facility] Total Time Total Time Spent Total Time Spent (In Minutes): 35 minutes Discharge Plan Discharge Items Patient Disposition: Transfer [facility] Reason For Visit: RESP FAILURE Discharge Diagnosis: Acute hypoxemic respiratory failure, Multifocal Pneumonia, Afib with RVR, ALS Activity: Per Instructions section Non-emergency contact: Primary Care Provider and Alcohol Law Enforcement Agent Call non-emergency contact if: your symptoms worsen Follow-up/Referrals: Leilani Butler C.R.N.P. [Primary Care Provider] - Diet: Regular Addtl Attending Provider Instructions: * Patient being transferred to [facility] hospital for further care. Patient is currently stable. Package Dyeing Machine Operator to sign out to the accepting yisican there per RN. Patient is on following medications prior to the transfer: Date of Service: December 19, 2021 Current Inpatient Medications Acetaminophen (Acetaminophen 325 Mg Tab) 325 mg PO Q4H PRN PRN Reason: pain Stop: 01/18/22 12:47 Amiodarone HCl (Amiodarone 200 Mg Tab) 200 mg PO QAM MYNOR Stop: 01/19/22 08:59 Artificial Tears (Artificial Tears) 1 drops OP BID PRN PRN Reason: Dry Eye(S) Stop: 01/18/22 00:04 Fentanyl Citrate (Fentanyl Bolus From Bag) 50 mcg IV Q60M PRN PRN Reason: Pain or Agitation Stop: 01/01/22 23:25 Doxycycline Hyclate 100 mg/ (Dextrose) 110 mls @ 50 mls/hr IV Q12H [facility] Stop: 12/26/21 10:59 Last Infusion: 12/19/21 13:01 Dose: Infused Documented by: Fentanyl Citrate (Fentanyl Citrate) 2,500 mcg in 250 mls @ 2.5 mls/hr IV .Q96H [facility]; Protocol Stop: 01/01/22 23:29 Last Admin: 12/19/21 00:18 Dose: 50 mcg/hr, 5 mls/hr Documented by: Heparin Sodium/Dextrose (Heparin Sodium/Dextrose) 25,000 units in 500 mls @ 28 mls/hr IV .[id number] [facility]; Protocol Stop: 01/18/22 01:14 Last Titration: 12/19/21 11:28 Dose: 1,400 units/hr, 28 mls/hr Documented by: Ceftriaxone Sodium 2,000 mg/ (Dextrose) 70 mls @ 100 mls/hr IV DAILY [facility]; Protocol Stop: 12/27/21 08:59 Miscellaneous (Ipratropium [place] 0.03%: Sprayorder Awaiting Action) 1 ea N/A QS MYNOR Stop: 01/18/22 07:59 Last Admin: 12/19/21 08:06 Dose: Not Given Documented by: Miscellaneous (Riluzole: Order Awaiting Action) 1 ea N/A QS [facility] Stop: 01/18/22 07:59 Last Admin: 12/19/21 08:06 Dose: Not Given Documented by: Miscellaneous (Icu Protocol For Hyperglycemia) 1 ea N/A PRN PRN; Protocol PRN Reason: Hyperglycemia Protocol Stop: 12/21/21 00:13 Addtl Electrical Lineman Provider Instructions: Patient's home medications have been continued at discharge but he in fact was getting the above medications during his stay here. Pending Studies at Discharge: No Stand-Alone Forms: My [facility] Skilled Items Patient informed of condition?: Yes DNR: No Discharge Level of Care: Other Communicable Disease: No Discharge Prognosis: Other Lines: Peripheral IV Urinary Catheter: Yes Medications and DC Order Prescriptions: Continued guaifenesin 100 mg/5 mL liquid 200 mg PO Q4H PRN (Reason: Congestion) RF: 0 lidocaine 5 % cream 1 applic topical BID PRN (Reason: Pain) RF: 0 cat's claw (uncaria tomentosa) 400 mg capsule 400 mg PO DAILY RF: 0 ibuprofen 400 mg tablet 400 mg PO Q8H PRN (Reason: Pain) RF: 0 Cannabis 1 dose PO DIRECTED PRN (Reason: NEEDED) RF: 0 lysine 1,000 mg Tablet 1,000 mg PO QAM RF: 0 riluzole 50 mg Tablet 50 mg PO Q12 RF: 0 ipratropium bromide 0.03 % [place],Non-Aerosol 2 spray INTRANASAL BID RF: 0 cholecalciferol (vitamin D3) [Vitamin D3] 25 mcg (1,000 unit) Tablet 1,000 unit PO BID RF: 0 coenzyme Q10 [Co Q-10] 400 mg Capsule 400 mg PO QAM RF: 0 hydrocortisone 0.5 % Cream 1 applic TOPICAL BID PRN (Reason: Itching) RF: 0 polyethylene glycol 3350 17 gram Powder In Packet 17 g PO DAILY PRN (Reason: Constipation) RF: 0 artificial tears(hypromellose) 0.3 % Drops 1 drp OPHTHALMIC (EYE) BID PRN (Reason: Dry Eye(S)) RF: 0 zinc oxide Ointment 1 applic TOPICAL DAILY PRN (Reason: IRRITATION) RF: 0 TwoCal HN 0.08-2 gram-kcal/mL Liquid 1 ea feeding tube DAILY RF: 0 [place]ie [place] Standard Formula 325 - 975 ml feeding tube DAILY RF: 0 Discharge Orders: Discharge Order (Routine); Ordered 12/19/21 Ordered By: Les Chen Admission Data Admit Date/Time: 12/18/21 20:31 Attending Provider: Les Chen Admit Provider: Rony Hernandez Primary Care Provider: Leilani Butler Other Providers: Tito Chapa ; Darvin Montana ; Archie Patton ; Hadley Fernandes ; Maya Singh ; Corby Hernandez ; Yaya Lucia ; Ruy Bone ; Jed Humphries ; [place] ; CharisseLazaro silvestre ; Jad Abbasi ; Manda Jaramillo ; Merari Allison ; Yi Mancia ; Ayaz Fairbanks ; [facility] Other Interventions: Discharge Summary Assessment (RN) Last Done: 12/19/21 15:13
[2021-12-20] MEDS ORDERED: cefTRIAXone SODIUM 2,000 MG in DEXTROSE 5% 50 ML IV SCH (09:00)
[2021-12-20] MEDS ORDERED: AMIODARONE 200 MG TAB PO SCH (09:00)
== END 2021-12-19 16:27 | DRG 871 ==
LOC: ED 17:07 → 2W 20:31 → 1E 12-19 00:14

== ENCOUNTER 2022-04-20 21:33 | Inpatient (IN) ==
[2022-04-21] MEDS ORDERED: VANCOMYCIN CONSULT ACTIVE PRN (00:38)
[2022-04-21] MEDS ORDERED: ICU PROTOCOL FOR HYPERGLYCEMIA PRN (00:38)
[2022-04-21] MEDS ORDERED: VANCOMYCIN HCL 1,000 MG in SODIUM CHLORIDE 0.9% 250 ML IV SCH (00:45)
[2022-04-21] MEDS ORDERED: PIPERACILLIN/TAZOBACTAM 4.5 GM in DEXTROSE 5% 100 ML IV ONE (01:00)
[2022-04-21] MEDS ORDERED: Patient's HEIGHT &/or WEIGHT Needed SCH (01:00)
[2022-04-21] MEDS ORDERED: VANCOMYCIN HCL 1,750 MG in SODIUM CHLORIDE 0.9% 500 ML IV ONE (01:00)
[2022-04-21] MEDS: SODIUM CHLORIDE 0.9% 1000ML 1,000 ML IV SCH ×3 (01:10→22:23)
--- NOTE | 2022-04-21 01:11 | Critical Care Consultation ---
Date of Consultation April 21, 2022 Assessment & Plan (1) Sepsis: Reason Critically Ill: 36-year-old male with advanced stage ALS, requiring continuous ventilation presents to the ICU with sepsis and hypotension. Neuro - ALS: Patient diagnosed 2014 follows with the [facility] in [place]. Patient is bedbound and requires continuous ventilation on home vent. He underwent tracheostomy and December in [place]. I did speak with the requiring preference to find any Medical Center. He has recently been hospitalized for 2 months in [place] and [facility] is closer to their home. If this is to be of short hospital stay she would prefer care at [facility], however if hospitalization is prolonged more than a few days she is okay with transfer to [facility]. Cardiac - Hypotensionimproved with IV fluid resuscitation. - Maintain maps greater than 65. Hold on vasopressors for now -Cortisol level pending -Monitor Left ventricular systolic dysfunctionecho from December with ejection fraction 40 to 45% -Patient appears to be dehydrated on exam, continue with IV fluid resuscitation for now -Monitor History A. fib RVRcurrently sinus tachycardia. EKG with prolonged QTC 570 -Continuous monitoring on telemetry Respiratory - Chronic respiratory failureABG with appropriate ventilation and oxygenation on home settings. Continue -Chest x-ray suspicious for pneumonia and possible source of sepsis, continue with broad-spectrum antibiotics. See ID below -Continuous monitoring pulse ox -CT chest pending -Daily chest x-ray GI - NPO. J-tube to drain to gravity Transaminitiselevated LFTs on outside labs. Repeating -Right upper quadrant tenderness on exam -CT abdomen pelvis pending RENAL/LYTES - Creatinine within normal limits, monitor routine BMPs and replete electrolytes as indicated Continue Normosol at 125 mL/h - Inserted Foleystrict I's and O's ENDO - No history of diabetes or thyroid disease ICU hyperglycemic protocol HEME - [H&H stable, monitor routine CBCs ID - Sepsis?Patient with elevated WBC 32,000 at outside hospital -Procalcitonin and lactate pending. Blood cultures pending -CT abdomen pelvis and CT chest pending -Afebrile -Continue with broad-spectrum antibiotics Zosyn and vancomycin for now LINES/IV ACCESS - Peripheral IVs DVT PROPHYLAXIS - Lovenox I have personally spent 65 minutes of critical care time in the direct management of this patient. This is a life/limb threatening event. This includes time spent evaluating patient, direct bedside care, chart review, placing orders, interpretation of diagnostic studies, discussion with consultants, patient, and family members, as well as other required patient management activities. This time is exclusive of all separately billable procedures, and teaching time and separate from and in addition to any other critical care service time. Thank you for allowing us to participate in the care of this patient. Please refer to my attending physician's documentation for any further recommendations. (2) Left ventricular systolic dysfunction: (3) Chronic respiratory failure: (4) ALS (amyotrophic lateral sclerosis): (5) Transaminitis: History of Present Illness Attending Physician: Gianluca Rasheed MD History of Present Illness Patient is a 36-year-old male with a history of ALS, chronic respiratory failure and dysphagia requiring tracheostomy and currently on home ventilator, recent admission for necrotizing pancreatitis, A. fib RVR, multifocal pneumonia who presented to the emergency department at outside hospital with complaints of abdominal pain and hypotension. Patient's is his primary caregiver and states that she could not obtain his blood pressure with home automatic blood pressure cuff. She called a friend that had a manual and his blood pressure was noted to be low. He was then taken to [facility]. Patient was found to have elevated WBC 32,000 and chest x-ray suspicious for pneumonia and transferred to [facility] was requested. Transfer to [facility] in [place] was recommended as this is normally where he has received care, and was also transferred on his last admission here. However, patient's family preferred more local hospital and specifically requested admission to [facility]. He is now transferred to and admitted to ICU for further management. On arrival, patient was noted to have right upper quadrant tenderness on exam and he did have elevated bilirubin on outside hospital labs. He is being sent for CT abdomen pelvis along with CT chest. He is currently maintaining oxygen saturation on home vent settings. ROS was difficult to obtain, due to patient's limited ability to communicate due to advanced stage ALS. He has been started on broad-spectrum antibiotics and lab work is pending. Will manage in ICU for now. Allergies Allergy/AdvReac Type Severity Reaction Status Date / Time No Known Allergies Allergy Verified 12/18/21 18:21 Home Medications Medication Instructions Recorded Confirmed Type artificial tears(hypromellose) 0.3 1 drp OPHTHALMIC (EYE) BID PRN 01/05/20 04/21/22 History % eye drops hydrocortisone 0.5 % topical cream 1 applic TOPICAL BID PRN 01/05/20 04/21/22 History Cannabis 1 dose PO DIRECTED PRN 12/05/21 12/18/21 History Patient History Medical History (Updated 04/21/22 @ 10:06 by Aileen Greer MD) ALS (amyotrophic lateral sclerosis) DX FEBRUARY 2014 Atrial fibrillation with RVR Cardiac murmur AN INFANT Dry eye syndrome Left ventricular systolic dysfunction Multifocal pneumonia Sleep apnea USES APAP DEVICE (DX WITH ALS) ALWAYS USING >WITH 3L AT HS ONLY Slow gastric motility D/T ALS Uses feeding tube SYRINGE FEEDING THRU PEG TUBE (STILL SWALLOWS PILLS ORALLY) Surgical History History of esophagogastroduodenoscopy (EGD) History of herniorrhaphy History of tooth extraction Hx of LASIK PRK S/P percutaneous endoscopic gastrostomy (PEG) tube placement Family History Mother Family history of diabetes mellitus Other No family history of adverse response to anesthesia Social History Smoking Status: Never smoker Second Hand Exposure: No; Do You Dip or Chew Tobacco: No; Hx Alcohol Use: No Hx Substance Use: Yes Last Used Substance: Unknown Substance Use Type Other:: medical marijuana Preferred Language: Pakistani Communication Ability: Effective Communication Ability Comment: infarred retinal tracker computer Salt Machine Operator Required: Video and Voice Beliefs That Will Affect Care: None marital status: Current Living Situation: Spouse and Family Current Living Situation Comment: AND 3 SONS How many Children do You have: 3 Feels Safe at Home: Yes Safety Concerns: Feels Safe At This Time Assistive Devices: Mechanical Lift, Nebulizer, Oxygen - Continuous and Wheelchair Review of Systems Review of Systems: Unobtainable due to endotracheal tube Physical Exam Constitutional: + frail appearing and + mechanically ventilated Eyes: PERRL, conjunctivae normal, anicteric sclerae ENMT: external ear and nose normal, oropharynx normal Neck: Tracheostomy Respiratory: Rhonchi auscultated in right middle and lower lobe. Symmetrical chest wall movement. Cardiovascular: RRR, no murmur, no edema Heart Sounds: normal S1 and normal S2 Vessels: no JVD Extremities: no edema Gastrointestinal (Abdomen): Abdomen tender to palpation in right upper quadrant. Soft, nondistended. Bowel sounds auscultated all 4 quadrants. J- tube Musculoskeletal: no cyanosis or clubbing, extremities motor strength 5/5 Skin: no rashes, warm and dry Neurologic: PERRL, EOMI, accommodation nl, no face palsy, no dysarthria Psychiatric: A+Ox3, euthymic affect Results & Data Results & Data ([facility]) Vital Signs (Past 12 Hours) Vital Signs Temp Pulse Pulse Resp BP Pulse Ox Pulse Ox 04/21/22 01:00 92 H 12 85/59 L 96 95 04/21/22 00:19 36.4 C L 84 12 109/62 98 04/21/22 00:15 94 H 12 90/61 L 95 04/20/22 23:49 97 H 12 98 Coding Level of Care Code Critical Care 1st 30-74 mins Diagnoses Left ventricular systolic dysfunction I51.9 Chronic respiratory failure J96.10 ALS (amyotrophic lateral sclerosis) G12.21 Transaminitis R74.01 Sepsis A41.9
[2022-04-21 01:22] LABS: Hematocrit (blood only) 41.4 % (42-52); Hemoglobin 13.7 g/dL (14.0-18.0); Mean Corpuscular Hemoglobin 26.7 pg (25-34); Mean Corpuscular Hgb Conc 33.1 g/dL (32-36); Mean Corpuscular Volume 80.5 fL (80-100); Mean Platelet Volume 10.1 fL (7.4-10.4); Platelet Count 433 K/uL (130-400); RDW Coefficient of Variation 17.6 % (11.5-14.5); RDW Standard Deviation 51.3 fL (36.4-46.3); Red Blood Count 5.14 M/uL (4.7-6.1); White Blood Count 24.18 K/uL (4.8-10.8)
[2022-04-21 01:37] LABS: Basophils # (auto) 0.01 K/uL (0-0.2); Eosinophils # (auto) 0.02 K/uL (0-0.5); Eosinophils % (auto) 0.1 %; Immature Granulocytes # (auto) 0.13 K/uL (0.00-0.02); Immature Granulocytes % (auto) 0.5 %; Lymphocytes # (auto) 1.35 K/uL (1.2-3.4); Lymphocytes % (auto) 5.6 %; Monocytes # (auto) 1.19 K/uL (0.11-0.59); Monocytes % (auto) 4.9 %; Neutrophils # (auto) 21.48 K/uL (1.4-6.5); Neutrophils % (auto) 88.9 %
[2022-04-21 01:40] LABS: Appearance Urine Cloudy (Clear); Bacteria Urine Automated 3+ (Negative); Bilirubin Urine Negative (Negative); Blood Urine Negative (Negative); Color Urine Dark Yellow; Glucose Urine UA Negative (Negative); Ketones Urine Trace (Negative); Leukocyte Esterase Urine Trace (Negative); Nitrite Urine Negative (Negative); Protein Urine 1+ (Negative); Specific Gravity Urine 1.019 (1.000-1.030); Urobilinogen Urine Negative (Negative); pH Urine 5.5 (4.5-7.5)
[2022-04-21 01:58] LABS: Alanine Aminotransferase 90 U/L (7-52); Albumin Globulin Ratio 1.1 (0.9-2); Albumin Level 3.6 gm/dl (3.4-5.0); Alkaline Phosphatase 211 U/L (34-104); Anion Gap 18 (3-11); Aspartate Aminotransferase 33 U/L (13-39); Bilirubin,Total 0.7 mg/dl (0.2-1.0); Blood Urea Nitrogen 44 mg/dl (6-23); Calcium 8.2 mg/dl (8.5-10.1); Carbon Dioxide 17 mmol/L (21-32); Chloride 96 mmol/L (98-107); Creatinine Clr Calc Pharmacy 571.3 ml/min; Est GFR (African American) > 150.0 ml/min; Est GFR (Non-African American) > 150.0 ml/min; Globulin 3.4 gm/dl (2.5-4.0); Glucose 133 mg/dl (70-99(Fasting)); Lipase 191 U/L (11-82); Magnesium 2.4 mg/dl (1.7-2.4); Sodium 131 mmol/L (136-145); Troponin I High Sensitivity 7.7 pg/ml (0-20)
[2022-04-21] MEDS ORDERED: OPTIRAY 320 100ml IV ONE (02:04)
--- NOTE | 2022-04-21 02:55 | History and Physical Report ---
DATE OF CONSULT: 04/21/2022. CHIEF COMPLAINT: Sepsis. HISTORY OF PRESENT ILLNESS: A 36-year-old male with past medical history significant for chronic respiratory failure secondary to ALS, history of on Trilogy ventilator, but currently status post trach and on vent, aspiration risk, status post PEG tube placement, chronic anemia, baseline hemoglobin of 13, he was admitted b in December of this year, he was here with acute hypoxic respiratory failure: The patient is nonambulatory and bedbound at baseline and he was treated for multifocal pneumonia as well as AFib with RVR. At that time, he was intubated and admitted in the ICU, started on empiric antibiotics. He was converted to normal sinus rhythm with amiodarone and beta gilmer, at that time he was also on heparin drip. Since he was getting all his care through [facility] and there is a possible to do tracheostomy, he has been transferred to [facility] for further care and management and the patient is status post tracheostomy here, on vent currently at home. As per he ca speak with blinking of eyes and today he complained of tingliness in the head and he was somewhat lethargic and tachycardic, tachypneic, pulse was in the 130s. Thought he might have dehydrated, his gave him fluids from his PEG tube. As she was not able to measure BP called his friend and checked it, and as blood pressure was low called the EMS, went to the [facility] where he was treated with Rocephin and azithromycin for pneumonia and his blood pressure was soft and he was transferred here for further management. Since they transferred him to be [facility] the last time from here , ICU recommended him to go directly to [facility], but the wanted to bring the patient here, so he was transferred here. As per patient has no nausea or vomiting. Stools are always loose. No fevers. He always has some soreness from lying in bed, but nothing unusual. ALLERGIES: No known drug allergies. PAST MEDICAL HISTORY: As mentioned above. PAST SURGICAL HISTORY: Tracheostomy, PEG tube placement. FAMILY HISTORY: Significant for asthma and IPF. SOCIAL HISTORY: Nonsmoker, no alcohol use. Disabled, lives with his . MEDICATIONS: The last time he was discharged on Cannabis as directed p.o. as directed, lysine 1000 mg p.o. a.m., riluzole 50 mg p.o. b.i.d., ipratropium bromide 2 sprays intranasal b.i.d., vitamin D 1000 units p.o. b.i.d., coenzyme Q10 400 mg p.o. a.m., hydrocortisone topical b.i.d. p.r.n., MiraLax 17 g p.o. daily p.r.n., artificial tears b.i.d. p.r.n., zinc oxide ointment topical daily p.r.n., [employer] Standard formula 325-975 mL feeding tube daily. REVIEW OF SYSTEMS: Unobtainable at this time, the patient is mostly nonverbal. PHYSICAL EXAMINATION: GENERAL: The patient is alert and awake, he blinks his eyes and tries to answer questions, sluggish. HEENT: Atraumatic. NECK: Tracheostomy, vent seen. CARDIOVASCULAR: S1 and S2 heard. Regular rate and rhythm. No murmur, no gallop. RESPIRATORY SYSTEM: Normal AP diameter. No accessory muscle use. Diminished breath sounds. No crackles. ABDOMEN: Soft, bowel sounds sluggish. PEG tube site, no active drainage seen. No distention seen. CENTRAL NERVOUS SYSTEM: The patient is mostly bedbound and nonambulatory, mostly nonverbal. Blinking eyes on questioning. EXTREMITIES: No edema, no erythema. LABORATORY: Labs from the [facility], WBC 32, hemoglobin 17.7, hematocrit 54, platelets 597. Sodium 125, potassium 4.9, chloride 84, bicarb 18, BUN 15, creatinine 0.5, serum glucose 168. ABGs: pH of 7.5, pCO2 of 24. ASSESSMENT AND PLAN: This is a 36-year-old male who presents as a transfer from [facility] for sepsis and possible pneumonia. 1. Sepsis, possible pneumonia. The patient has ALS, status post trach, on vent at home. The patient has PEG tube, possible aspiration. We will get CT of chest, CT of abdomen and pelvis, starting on vancomycin and Zosyn, and we will follow the cultures. IV fluids, normal saline at 125 mL per hour. Follow the lactic acids.Close monitor in the ICU with the critical care support. 2. History of atrial fibrillation. We will follow the EKG. 3. History of amyotrophic lateral sclerosis. Follows at [facility], bedbound, nonambulatory. 4. Nutrition, on tube feeds. We will consult dietitian. 5. Deep venous thrombosis prophylaxis: We will place him on Lovenox. DISPOSITION: Closely monitor in the ICU. Level 1 full code. Job ID: [id number] MTDD
[2022-04-21] MEDS ORDERED: NORMOSOL-R 1,000 ML IV ONE (03:43)
[2022-04-21 03:48] LABS: Basophils # (auto) 0.01 K/uL (0-0.2); Eosinophils # (auto) 0.02 K/uL (0-0.5); Eosinophils % (auto) 0.1 %; Hematocrit (blood only) 40.4 % (42-52); Hemoglobin 13.3 g/dL (14.0-18.0); Immature Granulocytes # (auto) 0.09 K/uL (0.00-0.02); Immature Granulocytes % (auto) 0.4 %; Lymphocytes # (auto) 1.23 K/uL (1.2-3.4); Lymphocytes % (auto) 5.9 %; Mean Corpuscular Hemoglobin 26.7 pg (25-34); Mean Corpuscular Hgb Conc 32.9 g/dL (32-36); Mean Corpuscular Volume 81.1 fL (80-100); Mean Platelet Volume 9.9 fL (7.4-10.4); Monocytes # (auto) 0.98 K/uL (0.11-0.59); Monocytes % (auto) 4.7 %; Neutrophils # (auto) 18.41 K/uL (1.4-6.5); Neutrophils % (auto) 88.9 %; Platelet Count 409 K/uL (130-400); RDW Coefficient of Variation 17.6 % (11.5-14.5); RDW Standard Deviation 51.7 fL (36.4-46.3); Red Blood Count 4.98 M/uL (4.7-6.1); White Blood Count 20.74 K/uL (4.8-10.8)
[2022-04-21 04:21] LABS: Alanine Aminotransferase 85 U/L (7-52); Albumin Level 3.7 gm/dl (3.4-5.0); Alkaline Phosphatase 204 U/L (34-104); Anion Gap 17 (3-11); Aspartate Aminotransferase 32 U/L (13-39); Bilirubin Direct 0.1 mg/dl (0-0.2); Bilirubin,Total 0.7 mg/dl (0.2-1.0); Blood Urea Nitrogen 41 mg/dl (6-23); Calcium 8.3 mg/dl (8.5-10.1); Carbon Dioxide 19 mmol/L (21-32); Chloride 96 mmol/L (98-107); Creatine Kinase 11 U/L (30-223); Creatinine Clr Calc Pharmacy 571.3 ml/min; Est GFR (African American) > 150.0 ml/min; Est GFR (Non-African American) > 150.0 ml/min; Glucose 141 mg/dl (70-99(Fasting)); Magnesium 2.4 mg/dl (1.7-2.4); Phosphorus 3.9 mg/dl (2.5-4.9); Potassium 2.7 mmol/L (3.5-5.1); Sodium 132 mmol/L (136-145)
[2022-04-21 04:22] LABS: Troponin I High Sensitivity 7.7 pg/ml (0-20)
[2022-04-21 05:01] LABS: Acetaminophen < 3 ug/ml (10-30); Salicylate < 3.0 mg/dl (3.0-30)
[2022-04-21] MEDS: POTASSIUM CHLORIDE / WTR 10 MEQ/100 ML PLCT IV SCH ×4 (05:10→08:13)
[2022-04-21] MEDS: PIPERACILLIN/TAZOBACTAM 4.5 GM in DEXTROSE 5% 100 ML IV SCH ×3 (06:03→22:23)
[2022-04-21] MEDS ORDERED: POTASSIUM CHLORIDE 20 MEQ/15 ML UDC PO STA (06:35)
--- NOTE | 2022-04-21 06:42 | CT Scan Report ---
CT OF THE CHEST WITHOUT IV CONTRAST CLINICAL HISTORY: Sepsis, pneumonia. Amyotrophic lateral sclerosis. COMPARISON STUDY: Chest radiograph August 18, 2022. TECHNIQUE: Axial images of the chest were obtained without IV contrast. Images were reviewed in the axial, sagittal, and coronal planes. IV contrast was not administered for this examination. Automat ed exposure control was utilized for the study. A dose lowering technique was utilized adhering to t he principles of ALARA. FINDINGS: Tracheostomy tube is in place. Diffuse muscular atrophy is noted. Size of the heart is nor mal. There is no pericardial effusion. No enlarged axillary, mediastinal or hilar lymph nodes are pre sent. Trace left pleural effusion is present. There is no pneumothorax. There extensive bilateral lob e airspace opacity with volume loss. Air bronchograms are present. No central obstructing mass is not ed. Groundglass and tree-in-bud nodules within the posterior segment of the right upper lobe are note d. There are also mild airspace opacities within the apicoposterior segment of the left upper lobe. N o associated 1 cm nodular opacity on image 139 of 246 is probably infectious or inflammatory. There a re are mild secretions within the trachea and mainstem bronchi. Diffuse bronchial wall thickening is present. Abdomen and pelvis CT will be reported separately. Slight loss of height of several thoracic vertebral bodies is chronic. IMPRESSION: 1. Extensive bilateral lower lobe consolidation with volume loss. This favors pneumonia although atel ectasis could appear similar. Trace left pleural effusion. 2. Ground glass and tree-in-bud nodules within the bilateral upper lobes which favor pneumonia or asp iration pneumonitis. 3. Mild secretions within the airways with diffuse bronchial wall thickening. 4. Diffuse muscular atrophy. ACT 112: Negative or not required by law. Electronically signed by: Karl Jacinto M.D. 04/21/2022 6:40 AM
--- NOTE | 2022-04-21 06:58 | CT Scan Report ---
CT OF THE ABDOMEN AND PELVIS WITH CONTRAST CLINICAL HISTORY: Sepsis, abdominal discomfort? Amyotrophic lateral sclerosis. COMPARISON STUDY: None. TECHNIQUE: Following IV administration of 94 mL of Optiray, axial images of the abdomen and pelvis we re obtained from the lung bases to the proximal femurs. Images were reviewed in the axial, sagittal, and coronal planes. IV contrast was administered without complication. Automated exposure control wa s utilized for the study. A dose lowering technique was utilized adhering to the principles of ALARA . CT DOSE: 1430.68 mGy.cm FINDINGS: Please note that the chest CT will be reported separately. Extensive bilateral lower lobe c onsolidation with volume loss is better depicted on that exam. There is a trace left pleural effusion . Diffuse muscular atrophy is noted. No pneumatosis, free air or portal venous gas is present. Gastro jejunostomy tube is in place. The balloon is within the stomach which is against the abdominal wall. Tip of the tube is within the jejunum, as expected. Hepatic steatosis is noted. No hepatic lesions ar e present. There is no biliary or pancreatic ductal dilatation. Spleen, adrenal glands and right kidn ey are normal. There is a 6 mm left renal calculus. There are no ureteral calculi. There is no hydron ephrosis. Pancreas is diffusely abnormal in appearance. Specifically, there are multiple hypodense cy stic abnormalities throughout the pancreas, the largest is a 4.6 cm focus within the pancreatic head. This has significant mass effect upon the portosplenic confluence although the vessels are not occlu ded. Specifically, there is significant narrowing of the distal superior mesenteric vein, the splenic vein as well as the proximal portal vein. The left and right portal veins are also patent. There is subtle peripancreatic stranding. Multiple peripancreatic nodular densities extend into the mesentery, measuring up to 2.6 cm. These are adjacent to the pancreatic head. There are also peripancreatic nod ular densities adjacent to the body and tail. No evidence for a bowel obstruction. The appendix is no rmal. Varela balloon and gas within the bladder present. No acute fracture within visualized skeletal structures. IMPRESSION: 1. Diffusely abnormal appearance of the pancreas with numerous pancreatic and peripancreatic nodular cystic foci, as described above. Index 4.6 cm pancreatic head lesion results in significant narrowing of the portosplenic confluence. The appearance is nonspecific however sequela of pancreatitis with n umerous pseudocyst formation is favored. A neoplastic process is within the differential although con sidered less likely given the patient's age. Subtle peripancreatic stranding raises the possibility o f acute pancreatitis. 2. Gastrojejunostomy tube in place. 3. No bowel obstruction. 4. Extensive bilateral lower lobe consolidation which favors pneumonia although atelectasis could estrada ear similar. 5. Hepatic steatosis. ACT 112: Negative or not required by law. Electronically signed by: Karl Jacinto M.D. 04/21/2022 6:56 AM
--- NOTE | 2022-04-21 07:00 | XRay Report ---
XR chest 1V portable CLINICAL HISTORY: Respiratory failure. COMPARISON STUDY: Chest CT performed earlier today. Chest radiograph December 19, 2021. FINDINGS: Tracheostomy tube is in place. There is no pneumothorax. Small left pleural effusion is not ed. Extensive bilateral lower lobe airspace opacities are again noted. There is no evidence for pulmo nary edema. Cardiomediastinal silhouette is unremarkable. IMPRESSION: 1. Extensive bilateral lower lobe airspace opacities could reflect pneumonia or atelectasis. 2. Tracheostomy tube in place. 3. Small left pleural effusion. No pneumothorax. ACT 112: Negative or not required by law. Electronically signed by: Karl Jacinto M.D. 04/21/2022 6:59 AM
[2022-04-21] MEDS: ENOXAPARIN INJ 40 MG/0.4 ML SYR SQ SCH (09:43)
--- NOTE | 2022-04-21 09:51 | Consultation ---
Date of Consultation April 21, 2022 Assessment & Plan (1) Transaminitis: Likely due to WOPN. Normal bili. Follow PRN. (2) Pancreatitis: Recent necrotizing pancreatitis ? cause WOPN with no radiographic evidence of infection Scant residual pancreas on CT Obtain prior med records Begin jejunal feeds; given probable panc insufficiency, consider elemental feeds or panc enzyme supplementation Check Trigs At present, his BP and WBC appear improved. Howver, If persistent evidence of sepsis that is refractory to abx, re-image abdomen and consider aspiration of WOPN. Check C diff History of Present Illness Reason for Consultation: pancreatitis Attending Physician: Gianluca Rasheed MD History of Present Illness 36 yo M with ALS vent dependent/tracheostomy, dysphagia with PEG admit with hypotension, leukocytosis. Admit notes also mention that pt has a recent h/o necrotizing pancreatitis, but no information listed regarding this. Pt underwent chest imaging, which showed multifocal pneumonia, and CT of a/p which showed multiple mature appearing areas of WOPN without any radiogrpahic evidence of infection. No kathryn dil, alk phos low 200's with normal bili. Has G-J tube. Placed on Zosyn overnight, remains NPO. Placed on Vanco + Zosyn. Overnight, hypotension improved with systolic in the low 90's, no fever but VS report temp36's. WBC decreased from 24 on admit to 20, blood urine cx NG. Allergies Allergy/AdvReac Type Severity Reaction Status Date / Time No Known Allergies Allergy Verified 12/18/21 18:21 Home Medications Medication Instructions Recorded Confirmed Type artificial tears(hypromellose) 0.3 1 drp OPHTHALMIC (EYE) BID PRN 01/05/20 04/21/22 History % eye drops hydrocortisone 0.5 % topical cream 1 applic TOPICAL BID PRN 01/05/20 04/21/22 History Cannabis 1 dose PO DIRECTED PRN 12/05/21 12/18/21 History Patient History Medical History (Updated 04/21/22 @ 10:06 by Aileen Greer MD) ALS (amyotrophic lateral sclerosis) DX FEBRUARY 2014 Atrial fibrillation with RVR Cardiac murmur AN Dry eye syndrome Left ventricular systolic dysfunction Multifocal pneumonia Sleep apnea USES APAP DEVICE (DX WITH ALS) ALWAYS USING >WITH 3L AT HS ONLY Slow gastric motility D/T ALS Uses feeding tube SYRINGE FEEDING THRU PEG TUBE (STILL SWALLOWS PILLS ORALLY) Surgical History History of esophagogastroduodenoscopy (EGD) History of herniorrhaphy History of tooth extraction Hx of LASIK PRK S/P percutaneous endoscopic gastrostomy (PEG) tube placement Family History Mother Family history of diabetes mellitus Other No family history of adverse response to anesthesia Social History Smoking Status: Never smoker Second Hand Exposure: No; Do You Dip or Chew Tobacco: No; Hx Alcohol Use: No Hx Substance Use: Yes Last Used Substance: Unknown Substance Use Type Other:: medical marijuana Preferred Language: Citizen Of [place] Communication Ability: Effective Communication Ability Comment: infarred retinal tracker computer Collator Operator Required: Video and Voice Beliefs That Will Affect Care: None marital status: Current Living Situation: Spouse and Family Current Living Situation Comment: AND 3 SONS How many Children do You have: 3 Feels Safe at Home: Yes Safety Concerns: Feels Safe At This Time Assistive Devices: Mechanical Lift, Nebulizer, Oxygen - Continuous and Wheelchair Physical Exam Physical Exam: Comfortable, alert, interactive Respiratory: RRR Gastrointestinal (Abdomen): Abd soft, mild tenderness epigastrium Results & Data ([facility]) Vital Signs (Past 12 Hours) Vital Signs Temp Pulse Pulse Resp BP BP Pulse Ox 04/21/22 07:40 80 12 100 04/21/22 07:00 36.3 C L 82 12 94/67 L 100 04/21/22 06:30 36.2 C L 79 12 100 04/21/22 06:00 36.2 C L 78 12 104/70 100 04/21/22 05:30 36.2 C L 79 12 100 04/21/22 05:00 36.3 C L 71 12 99/63 L 100 04/21/22 04:30 36.2 C L 77 12 100 04/21/22 04:12 88 12 98 04/21/22 04:00 36.1 C L 81 12 93/70 L 100 04/21/22 03:30 36.1 C L 90 12 99 04/21/22 03:00 36.2 C L 94 H 12 84/62 L 96 04/21/22 02:30 36.1 C L 91 H 12 99 04/21/22 02:03 36.0 C L 91 H 19 100 04/21/22 02:01 36.0 C L 91 H 15 104/57 L 95 04/21/22 01:31 36 C L 89 12 93/64 L 98 04/21/22 01:00 92 H 12 85/59 L 96 04/21/22 00:19 36.4 C L 84 12 109/62 98 04/21/22 00:15 94 H 12 90/61 L 95 04/20/22 23:49 97 H 12 98 Pulse Ox 04/21/22 07:40 04/21/22 07:00 04/21/22 06:30 04/21/22 06:00 04/21/22 05:30 04/21/22 05:00 04/21/22 04:30 04/21/22 04:12 04/21/22 04:00 04/21/22 03:30 04/21/22 03:00 04/21/22 02:30 04/21/22 02:03 04/21/22 02:01 04/21/22 01:31 04/21/22 01:00 95 04/21/22 00:19 04/21/22 00:15 04/20/22 23:49 Laboratory Results Labs reviewed Diagnostic Findings CT images reviewed
[2022-04-21] MEDS ORDERED: VANCOMYCIN HCL 1,500 MG in SODIUM CHLORIDE 0.9% 500 ML IV SCH (10:00)
--- NOTE | 2022-04-21 10:28 | Electrocardiogram Report ---
Test Reason : Blood Pressure : / mmHG Vent. Rate : 091 BPM Atrial Rate : 091 BPM P-R Int : 144 ms QRS Dur : 106 ms QT Int : 464 ms P-R-T Axes : 062 031 083 degrees QTc Int : 570 ms Normal sinus rhythm Incomplete right bundle branch block Nonspecific T wave abnormality Prolonged QT Abnormal ECG When compared with ECG of 18-DEC-2021 17:16, Incomplete right bundle branch block is no longer Present There is marked QT prolongation which was present on the prior ECG as well Confirmed by Jamal Cruz ([id number]) on 04/21/2022 10:27:40 AM Referred By: REFERRED SELF Confirmed By:Jamal Cruz
--- NOTE | 2022-04-21 14:03 | Hospitalist Progress Note ---
Date of Service April 21, 2022 Assessment & Plan (1) Pancreatitis: Plan: Patient is a 36 yr male with advanced ALS who presents as a transfer from [facility] for sepsis and possible pneumonia. Sepsis Anion gap metabolic acidosis sources: Pneumonia, R/O UTI --CT Chest:Extensive bilateral lower lobe consolidation with volume loss. This favors pneumonia although atelectasis could appear similar. Trace left pleural effusion. Ground glass and tree-in-bud nodules within the bilateral upper lobes which favor pneumonia or aspiration pneumonitis. Mild secretions within the airways with diffuse bronchial wall thickening. Diffuse muscular atrophy. --Blood/Urine Cx pending Received IV fluids Continue vancomycin, Zosyn Appreciate food processor help Acute Pancreatitis Recent necrotizing pancreatitis ? WPON as per GI Can start tube feeds as per GI Continue IV antibiotics Appreciate GI input If no improvement with conservative management, will need aspiration of WOPN Check stool studies Hypokalemia Hyponatremia Replace electrolytes as needed Transaminitis Hepatic steatosis Likely due to WOPN Monitor LFTs Chronic respiratory failure Currently on vent Vent management as per ICU team Appreciate Laboratory Mechanical Technician help Pulmonary hygiene H/O Atrial fibrillation Currently in Sinus H/O AML Follows at [place], bedbound, nonambulatory. Vending Supervisor consulted for tube feeds DVT Px: Lovenox SQ Code Status Full Code Admission and Anticipated Discharge Date Admission Date: April 20, 2022 Subjective Patient is seen and examined at bedside Limited history due to advanced ALS, Vent Has abdominal pain about 4/10 Also reports some dyspnea Currently on Vent Discussed with patient's at bedside Review of Systems Review of Systems: All systems reviewed & are unremarkable except as noted in Subjective Physical Exam Physical Exam: Physical Exam: Vitals signs as noted above General Appearance:Moderately built and nourished,Chronic ill appearing Head: normocephalic, Atraumatic Eyes: normal inspection, EOMI Neck: supple, Trachea midline,+Trach, Vent Respiratory/Chest: Normal breath sounds, +Scattered Rhonchi Cardiovascular: S1, S2, No murmur Abdomen/GI:Soft, Non tender, Bowel sounds present Extremities/Musculoskeletal:Atrophy, no edema Neurologic/Psych:AAO, Quadriplegic, ALS Skin: normal color, warm Results & Data Results & Data ([facility]) Vital Signs (Past 12 Hours) Vital Signs Temp Pulse Resp BP Pulse Ox 04/21/22 13:00 36.8 C 90 12 112/75 99 04/21/22 12:00 36.7 C 94 H 12 118/72 99 04/21/22 11:35 90 04/21/22 11:10 90 12 98 04/21/22 11:00 36.7 C 86 10 L 115/78 98 04/21/22 10:00 36.7 C 85 12 113/72 100 04/21/22 09:00 36.6 C 79 12 93/66 L 100 04/21/22 08:00 36.5 C 82 12 88/64 L 100 04/21/22 07:40 80 12 100 04/21/22 07:00 36.3 C L 82 12 94/67 L 100 04/21/22 06:30 36.2 C L 79 12 100 04/21/22 06:00 36.2 C L 78 12 104/70 100 04/21/22 05:30 36.2 C L 79 12 100 04/21/22 05:00 36.3 C L 71 12 99/63 L 100 04/21/22 04:30 36.2 C L 77 12 100 04/21/22 04:12 88 12 98 04/21/22 04:00 36.1 C L 81 12 93/70 L 100 04/21/22 03:30 36.1 C L 90 12 99 04/21/22 03:00 36.2 C L 94 H 12 84/62 L 96 04/21/22 02:30 36.1 C L 91 H 12 99 04/21/22 02:03 36.0 C L 91 H 19 100 04/21/22 02:01 36.0 C L 91 H 15 104/57 L 95 Laboratory Results Short CBC 04/21/22 04/21/22 Range/Units 01:03 03:35 WBC 24.18 H 20.74 H (4.8-10.8) K/uL Hgb 13.7 L 13.3 L (14.0-18.0) g/dL Hct 41.4 L 40.4 L (42-52) % Plt Count 433 H 409 H (130-400) K/uL BMP 04/21/22 04/21/22 01:03 03:35 Sodium 131 L 132 L Potassium 3.0 L 2.7 L Chloride 96 L 96 L Carbon Dioxide 17 L 19 L BUN 44 H 41 H Creatinine < 0.20 L < 0.20 L Glucose 133 H 141 H Calcium 8.2 L 8.3 L Cardiac Enzymes 04/21/22 Range/Units 03:35 Total Creatine Kinase 11 L (30-223) U/L Liver Function 04/21/22 04/21/22 Range/Units 01:03 03:35 Total Bilirubin 0.7 0.7 (0.2-1.0) mg/dl Direct Bilirubin 0.1 (0-0.2) mg/dl AST 33 32 (13-39) U/L ALT 90 H 85 H (7-52) U/L Alkaline Phosphatase 211 H 204 H (34-104) U/L Albumin 3.6 3.7 (3.4-5.0) gm/dl Urine 04/21/22 Range/Units 01:20 Urine Color Dark Yellow Urine Appearance Cloudy A (Clear) Urine pH 5.5 (4.5-7.5) Ur Specific [place]opia 1.019 (1.000-1.030) Urine Protein 1+ H (Negative) Urine Glucose (UA) Negative (Negative)
[2022-04-21] MEDS ORDERED: IMPACT LIQD 1.0 CAL 1,000 ML BAG GT SCH (15:00)
--- NOTE | 2022-04-21 15:00 | Communication Note ---
Date of Service: April 21, 2022 Patient was seen and evaluated. Continuing with current therapy, can discontinue the vancomycin secondary to MRSA swab being negative. We will obtain a specimen from tracheal aspirate. With regards to the pseudocyst the patient would like to try tube feedings he is normally on vital one-point 5 running at a rate of 60 mL for a total of 5 packages (approximately 250 mL) daily. At this point we will start Impact 1.0 at 30 and see how he tolerates. He is not requiring vasoactive medications. He has a single 22-gauge in the hand and we are unable to find adequate vessels via ultrasound therefore we will proceed with a right subclavian. I have personally spent 45 minutes of critical care time in the direct management of this patient. This is a life/limb threatening event. This includes time spent evaluating patient, direct bedside care, chart review, placing orders, interpretation of diagnostic studies, discussion with consultants, patient, and/or family members regarding treatment decisions, as well as other required patient management activities. This time is exclusive of all separately billable procedures, and teaching time and separate from and in addition to any other critical care service time. Coding Level of Care Code Critical Care sal addt'l 30 min
[2022-04-21] MEDS ORDERED: LIDOCAINE 1% LOCAL 20 ML VIAL ONE (15:22)
--- NOTE | 2022-04-21 15:39 | Procedure Note ---
Procedure Note Date of Service April 21, 2022 Note Procedure date: Noted above Procedure: Central venous access Pre-procedure indication: Poor vascular access Post-procedure Diagnosis: same as above Prior to Procedure: Informed Consent: The risks, benefits, indications, potential complications, and alternatives were explained to the patient's and informed consent obtained. Attending Staff: Skye Hernandez DO Resident/APC: Not applicable Skin Prep: Chlorhexidine Anesthesia: 4 mL 1% lidocaine without epinephrine The identity of the patient was confirmed and a bedside time out was performed. Description of Procedure: After sterile prep and sterile drape utilizing standard sterile technique the superficial skin of the right subclavian area was anesthetized. The target vessel was identified and entered with an 18-gauge needle. Dark venous blood return was noted. A guidewire was inserted through the needle and into the vessel. The needle was withdrawn and a skin colette was made. A tissue dilator was advanced via Seldinger technique and removed. A triple lumen catheter was inserted via Seldinger technique and the guidewire removed. All ports yan and flushed easily. A Biopatch was placed, and the catheter was secured via silk suture and commercial securement device A sterile dressing was then applied. Complications: None Estimated blood loss: Trace Patient tolerated the procedure well. Coding CPT Codes Tubes, Drains, and Vasc Access - Tubes, Drains, and Vasc Access: [id number] Insertion Of Non-tunneled Catheter Age 7 Yrs> ([id number]) [facility] [place] Codes (Charges) Tubes, Drains, and Vasc Access Procedure 1: Tubes, Drains, and Vasc Access: [id number] Insertion Of Non-tunneled Catheter Age 7 Yrs>
--- NOTE | 2022-04-21 16:08 | XRay Report ---
XR chest 1V portable at 3:51 PM CLINICAL HISTORY: central line placement. Evaluate for positioning and pneumothorax. COMPARISON STUDY: 04/21/2022 at 6:44 AM TECHNIQUE: 1 view of the chest FINDINGS: Single frontal view of the chest demonstrates the cardiomediastinal silhouette to be within normal li mits. There has been interval placement of a right subclavian catheter with its tip extending cephala d into the jugular vein. The catheter needs to be repositioned properly. Tracheostomy tube is again seen. There are again bilateral pleural effusions and bilateral lower lobe airspace opacities, most likely representing atelectasis. There is no evidence for vascular congesti on. There is no acute osseous pathology. IMPRESSION: 1. Tip of the right subclavian catheter extends cephalad into the jugular vein and needs to be reposi tioned. 2. Bilateral pleural effusions with bibasilar atelectasis/collapse is again seen. ACT 112: Negative or not required by law. Electronically signed by: Mannie Roth M.D. 04/21/2022 4:05 PM
[2022-04-21] MEDS ORDERED: fentaNYL citrate 100 MCG/2 ML VIAL IV PRN (19:12)
[2022-04-21 20:17] LABS: Adenovirus F 40/41 PCR Not Detected (NotDetected); Astrovirus PCR Not Detected (NotDetected); Campylobacter PCR Not Detected (NotDetected); Clostridium diff Toxin A/B PCR Not Detected (NotDetected); Cryptosporidium PCR Not Detected (NotDetected); Cyclospora cayetanensis PCR Not Detected (NotDetected); Entamoeba histolytica PCR Not Detected (NotDetected); Enteroaggregative E.coli(EAEC) Not Detected (NotDetected); Enteropathogenic E.coli (EPEC) Not Detected (NotDetected); Enterotoxigenic E.coli (ETEC) Not Detected (NotDetected); Giardia lamblia PCR Not Detected (NotDetected); Norovirus GI/GII PCR Not Detected (NotDetected); Plesiomonas shigelloides PCR Not Detected (NotDetected); Rotavirus A PCR Not Detected (NotDetected); Salmonella PCR Not Detected (NotDetected); Sapovirus PCR Not Detected (NotDetected); Shiga-like Toxin E.coli (STEC) Not Detected (NotDetected); Shigella/Enteroinvasive E.coli Not Detected (NotDetected); Vibrio cholerae PCR Not Detected (NotDetected); Vibrio species PCR Not Detected (NotDetected); Yersinia enterocolitica PCR Not Detected (NotDetected)
[2022-04-21] MEDS: ACETAMINOPHEN 500 MG TAB PO PRN (22:37)
[2022-04-21] MEDS: fentaNYL citrate 100 MCG/2 ML VIAL IV PRN (22:38)
[2022-04-22] MEDS: fentaNYL citrate 100 MCG/2 ML VIAL IV PRN ×3 (01:11→05:54)
[2022-04-22] MEDS: PIPERACILLIN/TAZOBACTAM 4.5 GM in DEXTROSE 5% 100 ML IV SCH ×3 (05:27→21:01)
[2022-04-22 06:13] LABS: Basophils # (auto) 0.01 K/uL (0-0.2); Basophils % (auto) 0.1 %; Eosinophils # (auto) 0.06 K/uL (0-0.5); Eosinophils % (auto) 0.5 %; Hematocrit (blood only) 37.5 % (42-52); Hemoglobin 11.9 g/dL (14.0-18.0); Immature Granulocytes # (auto) 0.04 K/uL (0.00-0.02); Immature Granulocytes % (auto) 0.3 %; Lymphocytes # (auto) 1.25 K/uL (1.2-3.4); Lymphocytes % (auto) 10.2 %; Mean Corpuscular Hemoglobin 26.8 pg (25-34); Mean Corpuscular Hgb Conc 31.7 g/dL (32-36); Mean Corpuscular Volume 84.5 fL (80-100); Mean Platelet Volume 10.2 fL (7.4-10.4); Monocytes # (auto) 0.39 K/uL (0.11-0.59); Monocytes % (auto) 3.2 %; Neutrophils # (auto) 10.55 K/uL (1.4-6.5); Neutrophils % (auto) 85.7 %; Platelet Count 313 K/uL (130-400); RDW Coefficient of Variation 17.7 % (11.5-14.5); RDW Standard Deviation 55.2 fL (36.4-46.3); Red Blood Count 4.44 M/uL (4.7-6.1)
[2022-04-22] MEDS: SODIUM CHLORIDE 0.9% 1000ML 1,000 ML IV SCH ×3 (06:18→18:11)
[2022-04-22] MEDS ORDERED: KETOROLAC TROMETHAMINE 10 MG TABLET PO PRN (06:29)
[2022-04-22 06:44] LABS: Alanine Aminotransferase 56 U/L (7-52); Alkaline Phosphatase 161 U/L (34-104); Anion Gap 10 (3-11); Aspartate Aminotransferase 21 U/L (13-39); Bilirubin Direct 0.1 mg/dl (0-0.2); Bilirubin,Total 0.6 mg/dl (0.2-1.0); Blood Urea Nitrogen 21 mg/dl (6-23); Carbon Dioxide 21 mmol/L (21-32); Chloride 108 mmol/L (98-107); Creatinine Clr Calc Pharmacy 571.3 ml/min; Est GFR (African American) > 150.0 ml/min; Est GFR (Non-African American) > 150.0 ml/min; Glucose 132 mg/dl (70-99(Fasting)); Magnesium 2.2 mg/dl (1.7-2.4); Phosphorus 2.1 mg/dl (2.5-4.9); Potassium 3.3 mmol/L (3.5-5.1); Sodium 139 mmol/L (136-145); Total Protein 6.1 gm/dl (6.0-8.3); Triglycerides 85 mg/dl (0-150)
[2022-04-22] MEDS ORDERED: POTASSIUM PHOS 3 MMOL/1 ML INFUSION IV STA (06:52)
[2022-04-22] MEDS ORDERED: POTASSIUM PHOSPHATE 30 MMOL in SODIUM CHLORIDE 0.9% 500 ML IV ONE (07:30)
[2022-04-22] MEDS: ENOXAPARIN INJ 40 MG/0.4 ML SYR SQ SCH (08:14)
--- NOTE | 2022-04-22 08:28 | Critical Care Progress Note ---
Date of Service April 22, 2022 Assessment & Plan (1) Sepsis: Plan: Reason Critically Ill: 36-year-old male with advanced stage ALS, requiring continuous ventilation presents to the ICU with sepsis and hypotension. Neuro - ALS: Patient diagnosed 2014 follows with the [facility] in [place]. Patient is bedbound and requires continuous ventilation on home vent. He underwent tracheostomy and December in [place]. I did speak with the requiring preference to find any Medical Center. He has recently been hospitalized for 2 months in [place] and [facility] is closer to their home. If this is to be of short hospital stay she would prefer care at [facility], however if hospitalization is prolonged more than a few days she is okay with transfer to [facility]. Cardiac - Hypotensionimproved with IV fluid resuscitation. - Maintain maps greater than 65. Hold on vasopressors for now - Random cortisol wnl -Monitor Left ventricular systolic dysfunctionecho from December with ejection fraction 40 to 45% -Patient appears to be dehydrated on exam, continue with IV fluid resuscitation for now -Monitor History A. fib RVRcurrently sinus tachycardia. EKG with prolonged QTC 570 -Continuous monitoring on telemetry -No indication for anticoagulation at this time Respiratory - Chronic respiratory failureABG with appropriate ventilation and oxygenation on home settings. Continue -Chest x-ray suspicious for pneumonia and possible source of sepsis, continue with broad-spectrum antibiotics. See ID below -Continuous monitoring pulse ox -Daily chest x-ray GI - GJ with feeds. Transaminitisimproving -Right upper quadrant tenderness on exam -GI suspects WOPN. Continue supportive care at this time -Trigs wnl RENAL/LYTES - Creatinine within normal limits, monitor routine BMPs and replete electrolytes as indicated Continue Normosol at 125 mL/h - Inserted Foleystrict I's and O's ENDO - No history of diabetes or thyroid disease ICU hyperglycemic protocol HEME - [H&H stable, monitor routine CBCs ID - Sepsis likely from PNA. Continue Zosyn. WBC trending down. Sputum cultures pending. LINES/IV ACCESS - Peripheral IVs DVT PROPHYLAXIS - Lovenox CRITICAL CARE TIME - I have personally spent 33 minutes of critical care time in the direct management of this patient. This is a life/limb threatening event. This includes time spent evaluating patient, direct bedside care, chart review, placing orders, interpretation of diagnostic studies, discussion with consultants, patient, and family members, as well as other required patient management activities. This time is exclusive of all separately billable procedures, and teaching time and separate from and in addition to any other critical care service time. (2) Left ventricular systolic dysfunction: (3) Chronic respiratory failure: (4) ALS (amyotrophic lateral sclerosis): (5) Transaminitis: Admission and Anticipated Discharge Date Admission Date: April 21, 2022 Subjective Patient seen and examined. at bedside. Patient complaining of some mild abdominal pain. Heart rate elevated to 109. Patient's notes that his heart rate usually is in the 90s to low 100s. The day that he came into the hospital his heart rate was in the 130s. He denies any chest pain. No fevers or chills. Ventilator settings are stable. Review of Systems Review of Systems: All systems reviewed & are unremarkable except as noted in HPI & below Physical Exam Constitutional: + frail appearing and + mechanically ventilated Eyes: PERRL, conjunctivae normal, anicteric sclerae ENMT: external ear and nose normal, oropharynx normal Neck: Tracheostomy Respiratory: Mildly diminished at the bases. No wheezes. No increased work of breathing. Cardiovascular: RRR, no murmur, no edema Heart Sounds: normal S1 and normal S2 Vessels: no JVD Extremities: no edema Gastrointestinal (Abdomen): Abdomen tender to palpation in right upper quadrant. Soft, nondistended. Bowel sounds auscultated all 4 quadrants. J- tube Musculoskeletal: no cyanosis or clubbing, extremities motor strength 5/5 Skin: no rashes, warm and dry Neurologic: PERRL, EOMI, accommodation nl, no face palsy, no dysarthria Psychiatric: A+Ox3, euthymic affect Results & Data Results & Data ([facility]) Vital Signs (Past 12 Hours) Vital Signs Temp Pulse Resp BP Pulse Ox Pulse Ox 04/22/22 07:25 94 H 12 100 04/22/22 06:00 37.4 C 106 H 12 105/54 L 100 04/22/22 05:30 37.4 C 95 H 12 100 04/22/22 05:00 37.3 C 98 H 12 100/56 L 100 04/22/22 04:30 37.2 C 98 H 12 100 04/22/22 04:04 100 H 12 04/22/22 04:00 37.2 C 99 H 12 107/59 L 100 04/22/22 03:30 37.3 C 105 H 12 100 04/22/22 03:00 37.1 C 97 H 12 111/67 100 04/22/22 02:30 37.0 C 90 12 100 04/22/22 02:00 36.9 C 92 H 12 101/54 L 100 04/22/22 01:30 37.0 C 102 H 12 97 04/22/22 01:00 37.2 C 106 H 12 108/60 97 100 04/22/22 00:30 37.1 C 99 H 12 100 04/22/22 00:00 37.1 C 95 H 12 98/57 L 100 04/21/22 23:37 95 H 12 100 04/21/22 23:30 36.6 C 99 H 12 100 04/21/22 23:00 37.7 C H 106 H 12 87/50 L 98 04/21/22 22:30 37.6 C H 109 H 12 100 04/21/22 22:00 37.8 C H 111 H 12 107/59 L 100 04/21/22 21:30 37.6 C H 106 H 12 100 04/21/22 21:00 37.5 C 105 H 12 95/56 L 100 04/21/22 20:30 37.4 C 97 H 12 100 Coding Level of Care Code Critical Care 1st 30-74 mins Diagnoses Sepsis A41.9 Left ventricular systolic dysfunction I51.9 Chronic respiratory failure J96.10 ALS (amyotrophic lateral sclerosis) G12.21 Transaminitis R74.01 Time Spent (min) 33
--- NOTE | 2022-04-22 10:10 | Gastroenterology Progress Note ---
Date of Service April 22, 2022 Assessment & Plan Admission and Anticipated Discharge Date Admission Date: April 21, 2022 Subjective WBC decreasing, temp improved. Trigs WNL. Began enteral feeds. Would recommend use of elemental feeds if available. Pt should follow up with regular outpt GI provider regarding management of WOPN. Will sign off, please reconsult as needed. Results & Data ([facility]) Vital Signs (Past 12 Hours) Vital Signs Temp Pulse Pulse Resp BP BP Pulse Ox 04/22/22 10:00 37.4 C 96 H 12 96/61 L 99 04/22/22 09:37 37.4 C 106 H 16 102/58 L 90 04/22/22 09:30 37.5 C 104 H 12 97 04/22/22 09:00 37.5 C 108 H 12 102/58 L 97 04/22/22 08:30 37.5 C 106 H 12 100 04/22/22 08:00 37.4 C 100 H 105 H 12 106/66 106/66 100 04/22/22 07:30 37.3 C 93 H 12 100 04/22/22 07:25 94 H 12 100 04/22/22 07:00 37.3 C 91 H 12 97/56 L 100 04/22/22 06:45 37.2 C 92 H 12 100 04/22/22 06:00 37.4 C 106 H 12 105/54 L 100 04/22/22 05:30 37.4 C 95 H 12 100 04/22/22 05:00 37.3 C 98 H 12 100/56 L 100 04/22/22 04:30 37.2 C 98 H 12 100 04/22/22 04:04 100 H 12 100 04/22/22 04:00 37.2 C 99 H 12 107/59 L 100 04/22/22 03:30 37.3 C 105 H 12 100 04/22/22 03:00 37.1 C 97 H 12 111/67 100 04/22/22 02:30 37.0 C 90 12 100 04/22/22 02:00 36.9 C 92 H 12 101/54 L 100 04/22/22 01:30 37.0 C 102 H 12 97 04/22/22 01:00 37.2 C 106 H 12 108/60 97 04/22/22 00:30 37.1 C 99 H 12 100 04/22/22 00:00 37.1 C 95 H 12 98/57 L 100 04/21/22 23:37 95 H 12 100 04/21/22 23:30 36.6 C 99 H 12 100 04/21/22 23:00 37.7 C H 106 H 12 87/50 L 98 04/21/22 22:30 37.6 C H 109 H 12 100 Pulse Ox 04/22/22 10:00 04/22/22 09:37 04/22/22 09:30 04/22/22 09:00 04/22/22 08:30 04/22/22 08:00 04/22/22 07:30 04/22/22 07:25 04/22/22 07:00 04/22/22 06:45 04/22/22 06:00 04/22/22 05:30 04/22/22 05:00 04/22/22 04:30 04/22/22 04:04 04/22/22 04:00 04/22/22 03:30 04/22/22 03:00 04/22/22 02:30 04/22/22 02:00 04/22/22 01:30 04/22/22 01:00 100 04/22/22 00:30 04/22/22 00:00 04/21/22 23:37 04/21/22 23:30 04/21/22 23:00 04/21/22 22:30
[2022-04-22] MEDS ORDERED: HYDROmorphone INJ 0.5 MG/0.5 ML SYR IV STA (10:17)
[2022-04-22] MEDS ORDERED: PEPTAMEN 1.5 CAL 1,000 ML BAG PEG SCH (10:30)
[2022-04-22] MEDS: TUBE FEEDING WATER FLUSH PEG SCH ×4 (11:04→22:18)
--- NOTE | 2022-04-22 11:21 | XRay Report ---
XR KUB/Abdomen 1 view CLINICAL HISTORY: abd pain. COMPARISON STUDY: No previous studies for comparison. TECHNIQUE: Multiple supine radiographs. FINDINGS: The bowel gas pattern is within normal limits without evidence for dilatation or obstruction. There i s no evidence for organomegaly or gross intra-abdominal mass. No abnormal calcifications are seen riley ng the course of the urinary tracts bilaterally. No acute osseous pathology. There is evidence for bi lateral lower lobe consolidation. IMPRESSION: 1. No acute intra-abdominal abnormality. 2. Bilateral lower lobe consolidation at the lung bases. ACT 112: Negative or not required by law. Electronically signed by: Mannie Roth M.D. 04/22/2022 11:20 AM
[2022-04-22 11:41] LABS: iSTAT Arterial Blood Gas HCO3 19 meg/L (19-24); iSTAT Arterial Blood Gas pCO2 30 mmHg (35-46); iSTAT Arterial Blood Gas pH 7.42 (7.35-7.45); iSTAT Arterial Blood Gas pO2 92 mmHg (80-95); iSTAT Carbon Dioxide 20 mmol/L (24-31)
[2022-04-22 11:42] LABS: Patient Temperature 36.4; iSTAT Sample Type Arterial; iSTAT Site R Radial
[2022-04-22 11:43] LABS: iSTAT SpO2 92
[2022-04-22] MEDS: HYDROmorphone INJ 0.5 MG/0.5 ML SYR IV PRN (14:25)
[2022-04-22] MEDS ORDERED: MELATONIN 3 MG TAB PO PRN (14:35)
[2022-04-22] MEDS: ICU ELECTROLYTE REPLACEMENT PROTOCOL SCH (16:43)
[2022-04-22] MEDS: oxyCODONE HCL IR 5 MG TAB (IMMEDIATE RELEASE) PO PRN ×2 (16:44→20:30)
[2022-04-22] MEDS ORDERED: VANCOMYCIN CONSULT ACTIVE PRN (17:11)
[2022-04-22] MEDS ORDERED: VANCOMYCIN HCL 1,500 MG in SODIUM CHLORIDE 0.9% 500 ML IV ONE (17:30)
--- NOTE | 2022-04-22 18:11 | Hospitalist Progress Note ---
Date of Service April 22, 2022 Assessment & Plan (1) Pancreatitis: Plan: Patient is a 36 yr male with advanced ALS who presents as a transfer from [facility] for sepsis and possible pneumonia. Sepsis Anion gap metabolic acidosis sources: Pneumonia, R/O UTI --CT Chest:Extensive bilateral lower lobe consolidation with volume loss. This favors pneumonia although atelectasis could appear similar. Trace left pleural effusion. Ground glass and tree-in-bud nodules within the bilateral upper lobes which favor pneumonia or aspiration pneumonitis. Mild secretions within the airways with diffuse bronchial wall thickening. Diffuse muscular atrophy. 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 Quality Control Systems Manager consulted for tube feeds DVT Px: Lovenox SQ Code Status Full Code Admission and Anticipated Discharge Date Admission Date: April 21, 2022 Subjective Patient is seen and examined at bedside Limited history due to advanced ALS, Vent Was febrile overnight and today evening Abdominal pain better, poor sleep Decreased oral secretions Leukocytosis trending down Remains on vent Family at bedside Being started on tube feeds Review of Systems Review of Systems: All systems reviewed & are unremarkable except as noted in Subjective Physical Exam Physical Exam: Physical Exam: Vitals signs as noted above General Appearance:Moderately built and nourished,Chronic ill appearing Head: normocephalic, Atraumatic Eyes: normal inspection, EOMI Neck: supple, Trachea midline,+Trach, Vent Respiratory/Chest: Normal breath sounds, +Scattered Rhonchi Cardiovascular: S1, S2, No murmur Abdomen/GI:Soft, Non tender, Bowel sounds present Extremities/Musculoskeletal:Atrophy, no edema Neurologic/Psych:AAO, Quadriplegic, ALS Skin: normal color, warm Results & Data Results & Data ([facility]) Vital Signs (Past 12 Hours) Vital Signs Temp Pulse Pulse Resp BP BP Pulse Ox 04/22/22 17:00 37.6 C H 105 H 12 86/65 L 100 04/22/22 16:54 37.6 C H 106 H 12 109/72 100 04/22/22 16:30 37.6 C H 105 H 12 100 04/22/22 16:00 37.5 C 96 H 12 100 04/22/22 15:36 96 H 04/22/22 15:30 37.5 C 103 H 12 100 04/22/22 15:00 37.5 C 110 H 12 100 04/22/22 14:55 108 H 12 100 04/22/22 14:30 37.5 C 112 H 12 99 04/22/22 14:00 37.3 C 109 H 12 100 04/22/22 13:30 37.2 C 105 H 12 100 04/22/22 13:00 37.1 C 102 H 12 101/60 100 04/22/22 12:30 37.1 C 95 H 12 100 04/22/22 12:28 96 H 04/22/22 12:00 37.1 C 94 H 12 105/62 100 04/22/22 11:56 96 H 04/22/22 11:30 37.2 C 95 H 12 100 04/22/22 11:20 96 H 12 100 04/22/22 11:00 37.2 C 94 H 12 98/65 L 100 04/22/22 10:30 37.3 C 99 H 12 99 04/22/22 10:00 37.4 C 96 H 12 96/61 L 99 04/22/22 09:37 37.4 C 106 H 16 102/58 L 90 04/22/22 09:30 37.5 C 104 H 12 97 04/22/22 09:00 37.5 C 108 H 12 102/58 L 97 04/22/22 08:30 37.5 C 106 H 12 100 04/22/22 08:00 37.4 C 100 H 105 H 12 106/66 106/66 100 04/22/22 07:30 37.3 C 93 H 12 100 04/22/22 07:25 94 H 12 100 04/22/22 07:00 37.3 C 91 H 12 97/56 L 100 04/22/22 06:45 37.2 C 92 H 12 100 Laboratory Results Short CBC 04/22/22 Range/Units 05:43 WBC 12.30 H (4.8-10.8) K/uL Hgb 11.9 L (14.0-18.0) g/dL Hct 37.5 L (42-52) % Plt Count 313 (130-400) K/uL BMP 04/22/22 05:43 Sodium 139 Potassium 3.3 L D Chloride 108 H Carbon Dioxide 21 BUN 21 D Creatinine < 0.20 L Glucose 132 H Calcium 8.0 L Liver Function 04/22/22 Range/Units 05:43 Total Bilirubin 0.6 (0.2-1.0) mg/dl Direct Bilirubin 0.1 (0-0.2) mg/dl AST 21 (13-39) U/L ALT 56 H (7-52) U/L Alkaline Phosphatase 161 H (34-104) U/L Albumin 3.0 L (3.4-5.0) gm/dl
[2022-04-22] MEDS: ACETAMINOPHEN 500 MG TAB PO PRN (20:17)
[2022-04-23] MEDS: HYDROmorphone INJ 0.5 MG/0.5 ML SYR IV PRN ×2 (02:20→05:30)
[2022-04-23] MEDS: TUBE FEEDING WATER FLUSH PEG SCH ×2 (02:30→06:22)
[2022-04-23] MEDS ORDERED: VANCOMYCIN HCL 1,500 MG in SODIUM CHLORIDE 0.9% 500 ML IV SCH (04:00)
[2022-04-23] MEDS: SODIUM CHLORIDE 0.9% 1000ML 1,000 ML IV SCH (06:21)
[2022-04-23] MEDS: PIPERACILLIN/TAZOBACTAM 4.5 GM in DEXTROSE 5% 100 ML IV SCH ×2 (06:21→14:39)
[2022-04-23 07:41] LABS: Basophils # (auto) 0.01 K/uL (0-0.2); Basophils % (auto) 0.1 %; Eosinophils # (auto) 0.12 K/uL (0-0.5); Eosinophils % (auto) 0.7 %; Hematocrit (blood only) 32.3 % (42-52); Hemoglobin 10.2 g/dL (14.0-18.0); Immature Granulocytes # (auto) 0.07 K/uL (0.00-0.02); Immature Granulocytes % (auto) 0.4 %; Lymphocytes % (auto) 5.5 %; Mean Corpuscular Hemoglobin 26.2 pg (25-34); Mean Platelet Volume 9.7 fL (7.4-10.4); Monocytes # (auto) 0.66 K/uL (0.11-0.59); Monocytes % (auto) 3.6 %; Neutrophils # (auto) 16.27 K/uL (1.4-6.5); Neutrophils % (auto) 89.7 %; Platelet Count 281 K/uL (130-400); RDW Coefficient of Variation 17.9 % (11.5-14.5); RDW Standard Deviation 54.6 fL (36.4-46.3); Red Blood Count 3.89 M/uL (4.7-6.1); White Blood Count 18.13 K/uL (4.8-10.8)
[2022-04-23 07:42] LABS: Mean Corpuscular Hgb Conc 31.6 g/dL (32-36)
[2022-04-23 08:04] LABS: Troponin I High Sensitivity 6.2 pg/ml (0-20)
[2022-04-23 08:21] LABS: Alanine Aminotransferase 35 U/L (7-52); Albumin Level 2.5 gm/dl (3.4-5.0); Alkaline Phosphatase 120 U/L (34-104); Anion Gap 8 (3-11); Aspartate Aminotransferase 14 U/L (13-39); Bilirubin Direct 0.1 mg/dl (0-0.2); Bilirubin,Total 0.6 mg/dl (0.2-1.0); Blood Urea Nitrogen 15 mg/dl (6-23); Calcium 7.3 mg/dl (8.5-10.1); Carbon Dioxide 20 mmol/L (21-32); Chloride 114 mmol/L (98-107); Creatinine Clr Calc Pharmacy 619.8 ml/min; Est GFR (African American) > 150.0 ml/min; Est GFR (Non-African American) > 150.0 ml/min; Glucose 142 mg/dl (70-99(Fasting)); Lipase 511 U/L (11-82); Magnesium 1.6 mg/dl (1.7-2.4); Phosphorus 2.7 mg/dl (2.5-4.9); Potassium 2.3 mmol/L (3.5-5.1); Sodium 142 mmol/L (136-145); Total Protein 5.2 gm/dl (6.0-8.3)
[2022-04-23] MEDS: oxyCODONE HCL IR 5 MG TAB (IMMEDIATE RELEASE) PO PRN (08:34)
[2022-04-23] MEDS: ENOXAPARIN INJ 40 MG/0.4 ML SYR SQ SCH (08:36)
[2022-04-23] MEDS ORDERED: STAT IV STA (09:48)
[2022-04-23] MEDS: ICU ELECTROLYTE REPLACEMENT PROTOCOL SCH (09:55)
[2022-04-23] MEDS ORDERED: oxyCODONE HCL SOLN 5 MG/5 ML UDC PO PRN (10:02)
[2022-04-23] MEDS ORDERED: PEPTAMEN 1.5 CAL 1,000 ML BAG JT SCH (10:05)
[2022-04-23] MEDS ORDERED: ACETAMINOPHEN SUSP 325 MG/10.15 ML UDC PO PRN (10:07)
[2022-04-23] MEDS ORDERED: POTASSIUM CHLORIDE 20 MEQ in LACTATED RINGER'S 1,000 ML IV SCH (10:15)
[2022-04-23] MEDS ORDERED: FAMOTIDINE SUSP 20 MG/2.5 ML UDP PO SCH (10:15)
[2022-04-23] MEDS ORDERED: DAPTOmycin 500 MG in SYRINGE 0 ML IV SCH (10:15)
[2022-04-23] MEDS ORDERED: CALCIUM GLUCONATE 10% 1,000 MG in DEXTROSE 5% 50 ML IV ONE (10:15)
--- NOTE | 2022-04-23 10:26 | Critical Care Progress Note ---
Date of Service April 23, 2022 Assessment & Plan (1) Sepsis: Plan: Reason Critically Ill: 36-year-old male with advanced stage ALS, requiring continuous ventilation presents to the ICU with sepsis and hypotension. Neuro - ALS: [facility] diagnosed 2014 [facility] [place] Patient is bedbound and requires continuous ventilation on home vent. He underwent tracheostomy and December in [place]. I did speak with the requiring preference to find any Medical Center. He has recently been hospitalized for 2 months in [place] and [facility] closer to their home. Cardiac - Hypotensionimproved with IV fluid resuscitation. - Maintain maps greater than 65. Hold on vasopressors for now - Random cortisol wnl -Monitor Left ventricular systolic dysfunctionecho from December with ejection fraction 40 to 45% -Patient appears to be dehydrated on exam, continue with IV fluid resuscitation for now -Monitor History A. fib RVRcurrently sinus tachycardia. EKG with prolonged QTC 570 -Continuous monitoring on telemetry -No indication for anticoagulation at this time Respiratory - Chronic respiratory failureABG with appropriate ventilation and oxygenation on home settings. Continue -Chest x-ray suspicious for pneumonia and possible source of sepsis, continue with broad-spectrum antibiotics. See ID below -Continuous monitoring pulse ox GI - Hold TF giving rising lipase and ongoing abdominal pain Transaminitisimproving -Right upper quadrant tenderness on exam -GI suspects WOPN. Continue supportive care at this time -Trigs wnl RENAL/LYTES - Creatinine within normal limits, monitor routine BMPs and replete electrolytes as indicated Hyperchloremic nongap acidosis. Will change NSS to LR @ 150/hr. Replacing K, mg and ca+2. - Inserted Foleystrict I's and O's ENDO - No history of diabetes or thyroid disease ICU hyperglycemic protocol HEME - H&H stable, monitor routine CBCs ID - Sepsis likely from PNA and UTI. Sputum cx neg thus far. Urine culture growing MDRO Enterococcus Abx changed from vanc to dapto. Continue Zosyn. Will initiate contact precautions. LINES/IV ACCESS - Peripheral IVs DVT PROPHYLAXIS - Lovenox CRITICAL CARE TIME - I have personally spent 33 minutes of critical care time in the direct management of this patient. This is a life/limb threatening event. This includes time spent evaluating patient, direct bedside care, chart review, placing orders, interpretation of diagnostic studies, discussion with consultants, patient, and family members, as well as other required patient management activities. This time is exclusive of all separately billable procedures, and teaching time and separate from and in addition to any other critical care service time. (2) Left ventricular systolic dysfunction: (3) Chronic respiratory failure: (4) ALS (amyotrophic lateral sclerosis): (5) Transaminitis: (6) UTI (urinary tract infection): Admission and Anticipated Discharge Date Admission Date: April 21, 2022 Subjective Patient resting comfortably today. No significant overnight events. Continues to have low-grade fevers. Physical Exam Constitutional: + frail appearing and + mechanically ventilated Eyes: PERRL, conjunctivae normal, anicteric sclerae ENMT: external ear and nose normal, oropharynx normal Cardiovascular: RRR, no murmur, no edema Heart Sounds: normal S1 and normal S2 Vessels: no JVD Extremities: no edema Musculoskeletal: no cyanosis or clubbing, extremities motor strength 5/5 Skin: no rashes, warm and dry Neurologic: PERRL, EOMI, accommodation nl, no face palsy, no dysarthria Psychiatric: A+Ox3, euthymic affect Results & Data Results & Data ([facility]) Vital Signs (Past 12 Hours) Vital Signs Temp Pulse Resp BP Pulse Ox Pulse Ox 04/23/22 10:18 103 H 12 99 04/23/22 09:00 38.0 C H 103 H 12 99/55 L 100 04/23/22 08:00 38.1 C H 102 H 12 81/49 L 100 04/23/22 07:28 12 100 04/23/22 07:00 38.0 C H 104 H 10 L 86/51 L 100 04/23/22 05:00 37.6 C H 101 H 11 L 102/55 L 98 04/23/22 04:00 37.7 C H 105 H 12 111/59 L 97 04/23/22 03:00 38.0 C H 105 H 11 L 81/48 L 96 04/23/22 02:41 109 H 12 96 04/23/22 02:00 38.1 C H 113 H 12 95/54 L 100 04/23/22 01:00 37.8 C H 104 H 14 108/60 100 100 04/23/22 00:00 37.5 C 96 H 16 97/55 L 100 04/22/22 23:00 37.6 C H 102 H 11 L 102/59 L 100 04/22/22 22:28 100 H 12 100 Coding Level of Care Code Critical Care 1st 30-74 mins Diagnoses Sepsis A41.9 Left ventricular systolic dysfunction I51.9 Chronic respiratory failure J96.10 ALS (amyotrophic lateral sclerosis) G12.21 Transaminitis R74.01 UTI (urinary tract infection) N39.0 Time Spent (min) 33
[2022-04-23] MEDS: MAGNESIUM SULFATE / D5W 1 GM/100 ML BAG IV SCH ×4 (10:30→16:38)
[2022-04-23] MEDS: POTASSIUM CHLORIDE 20 MEQ/15 ML UDC PO SCH ×2 (10:30→14:40)
[2022-04-23] MEDS ORDERED: ALBUTEROL 0.083% NEBU SOLN 3 ML VIAL NEB STA (11:26)
[2022-04-23] MEDS ORDERED: ALBUTEROL 0.083% NEBU SOLN 3 ML VIAL NEB PRN (11:26)
[2022-04-23] MEDS ORDERED: ALBUTEROL 0.083% NEBU SOLN 3 ML VIAL ONE (11:28)
--- NOTE | 2022-04-23 12:33 | Hospitalist Progress Note ---
Date of Service April 23, 2022 Assessment & Plan (1) Pancreatitis: Plan: Patient is a 36 yr male with advanced ALS who presents as a transfer from [facility] for sepsis and possible pneumonia. Sepsis Anion gap metabolic acidosis sources: Pneumonia, UTI --CT Chest:Extensive bilateral lower lobe consolidation with volume loss. This favors pneumonia although atelectasis could appear similar. Trace left pleural effusion. Ground glass and tree-in-bud nodules within the bilateral upper lobes which favor pneumonia or aspiration pneumonitis. Mild secretions within the airways with diffuse bronchial wall thickening. Diffuse muscular atrophy. --Blood culture no growth to date -- Urine culture growing Enterococcus sensitive to daptomycin, tetracycline, vancomycin (resistant to ampicillin, ciprofloxacin, levofloxacin, penicillin) Sputum culture--preliminary: Normal dagoberto IV fluids as needed Normal random cortisol Continue vancomycin, Zosyn>>> daptomycin, Zosyn Appreciate drill press operator help Continue enteral feeds Persistent fever, Leukocytosis Given complexity of the patient's condition, patient is recommended to be transferred to [facility] Discussed with family/patient who agrees to be transferred to [facility] Discussed with drill press operator at [facility],Mohinder Cottrell kindly accepted the patient for further management Acute Pancreatitis Recent necrotizing pancreatitis Suspected walled off pancreatic necrosis as per GI Continue IV antibiotics Appreciate GI input If no improvement with conservative management, will need aspiration of WOPN stool studies Negative Persistent Leukocytosis Lipase increased from 191 to 511 today Hypokalemia Hyponatremia Hypomagnesemia Hyperchloremic non-anion gap acidosis Replace electrolytes as needed Potassium 2.3, magnesium 1.6 today Sodium levels improved to 142 HCO3 20 today Transaminitis Hepatic steatosis Likely due to WOPN Monitor LFTs--Slowly improving Chronic respiratory failure Currently on vent Vent management as per ICU team Appreciate Zigzag Tunnel Elastic Operator help Pulmonary hygiene H/O Atrial fibrillation Currently in Sinus H/O AML Follows at [facility], bedbound, nonambulatory. Separator Inserter consulted for tube feeds DVT Px: Lovenox SQ Code Status Full Code Disposition [facility] when bed available Admission and Anticipated Discharge Date Admission Date: April 21, 2022 Subjective Patient is seen and examined at bedside Limited history due to advanced ALS, Vent " My chest is rattling" Also reports having some abdominal pain Persistent fever Discussed with Zigzag Tunnel Elastic Operator and family at bedside Review of Systems Review of Systems: All systems reviewed & are unremarkable except as noted in Subjective Physical Exam Physical Exam: Physical Exam: Vitals signs as noted above General Appearance:Moderately built and nourished,Chronic ill appearing Head: normocephalic, Atraumatic Eyes: normal inspection, EOMI Neck: supple, Trachea midline,+Trach, Vent Respiratory/Chest: Normal breath sounds, +Scattered Rhonchi Cardiovascular: S1, S2, No murmur Abdomen/GI:Soft, Non tender, Bowel sounds present Extremities/Musculoskeletal:Atrophy, no edema Neurologic/Psych:AAO, Quadriplegic, ALS Skin: normal color, warm Results & Data Results & Data ([facility]) Vital Signs (Past 12 Hours) Vital Signs Temp Pulse Pulse Resp BP Pulse Ox Pulse Ox 04/23/22 11:37 105 H 12 100 04/23/22 10:18 103 H 12 99 04/23/22 09:00 38.0 C H 103 H 12 99/55 L 100 04/23/22 08:00 38.1 C H 102 H 12 81/49 L 100 04/23/22 07:28 12 100 04/23/22 07:00 38.0 C H 104 H 10 L 86/51 L 100 04/23/22 05:00 37.6 C H 101 H 11 L 102/55 L 98 04/23/22 04:00 37.7 C H 105 H 12 111/59 L 97 04/23/22 03:00 38.0 C H 105 H 11 L 81/48 L 96 04/23/22 02:41 109 H 12 96 04/23/22 02:00 38.1 C H 113 H 12 95/54 L 100 04/23/22 01:00 37.8 C H 104 H 14 108/60 100 100 Laboratory Results Short CBC 04/23/22 04/23/22 Range/Units 06:07 07:28 WBC Cancelled 18.13 H Hgb Cancelled 10.2 L Hct Cancelled 32.3 L Plt Count Cancelled 281 BMP 04/23/22 04/23/22 06:07 07:28 Sodium Cancelled 142 Potassium Cancelled 2.3 L* D Chloride Cancelled 114 H Carbon Dioxide Cancelled 20 L BUN Cancelled 15 Creatinine Cancelled < 0.20 L Glucose Cancelled 142 H Calcium Cancelled 7.3 L Liver Function 04/23/22 04/23/22 Range/Units 06:07 07:28 Total Bilirubin Cancelled 0.6 Direct Bilirubin Cancelled 0.1 AST Cancelled 14 ALT Cancelled 35 Alkaline Phosphatase Cancelled 120 H Albumin Cancelled 2.5 L
[2022-04-23] MEDS: TUBE FEEDING WATER FLUSH JT SCH ×2 (12:44→14:41)
[2022-04-23] MEDS ORDERED: SODIUM CHLORIDE 0.65% NA SOLN 45 ML (OCEAN) ONE (14:14)
--- NOTE | 2022-04-23 14:40 | Discharge Summary ---
Date of Service April 23, 2022 Admission HPI Per Admitting Provider CHIEF COMPLAINT: Sepsis. HISTORY OF PRESENT ILLNESS: A 36-year-old male with past medical history significant for chronic respiratory failure secondary to ALS, history of on Trilogy ventilator, but currently status post trach and on vent, aspiration risk, status post PEG tube placement, chronic anemia, baseline hemoglobin of 13, he was admitted b in December of this year, he was here with acute hypoxic respiratory failure: The patient is nonambulatory and bedbound at baseline and he was treated for multifocal pneumonia as well as AFib with RVR. At that time, he was intubated and admitted in the ICU, started on empiric antibiotics. He was converted to normal sinus rhythm with amiodarone and beta gilmer, at that time he was also on heparin drip. Since he was getting all his care through [facility] and there is a possible to do tracheostomy, he has been transferred to [facility] for further care and management and the patient is status post tracheostomy here, on vent currently at home. As per he ca speak with blinking of eyes and today he complained of tingliness in the head and he was somewhat lethargic and tachycardic, tachypneic, pulse was in the 130s. Thought he might have dehydrated, his gave him fluids from his PEG tube. As she was not able to measure BP called his friend and checked it, and as blood pressure was low called the EMS, went to the [facility] where he was treated with Rocephin and azithromycin for pneumonia and his blood pressure was soft and he was transferred here for further management. Since they transferred him to be [facility] the last time from here , ICU recommended him to go directly to [facility], but the wanted to bring the patient here, so he was transferred here. As per patient has no nausea or vomiting. Stools are always loose. No fevers. He always has some soreness from lying in bed, but nothing unusual. Admission Exam Per Admitting Provider PHYSICAL EXAMINATION: GENERAL: The patient is alert and awake, he blinks his eyes and tries to answer questions, sluggish. HEENT: Atraumatic. NECK: Tracheostomy, vent seen. CARDIOVASCULAR: S1 and S2 heard. Regular rate and rhythm. No murmur, no gallop. RESPIRATORY SYSTEM: Normal AP diameter. No accessory muscle use. Diminished breath sounds. No crackles. ABDOMEN: Soft, bowel sounds sluggish. PEG tube site, no active drainage seen. No distention seen. CENTRAL NERVOUS SYSTEM: The patient is mostly bedbound and nonambulatory, mostly nonverbal. Blinking eyes on questioning. EXTREMITIES: No edema, no erythema. Principal Diagnosis Sepsis Anion gap metabolic acidosis Multifocal pneumonia Urinary tract infection Acute pancreatitis Suspected walled off pancreatic necrosis Hypokalemia Hyponatremia Hypomagnesemia Transaminitis Advanced ALS Discharge Data Allergies Allergy/AdvReac Type Severity Reaction Status Date / Time No Known Allergies Allergy Verified 12/18/21 18:21 Consultations 04/21/22 00:38 Consult Floor Tech Routine 04/21/22 05:57 Consult Gastroenterology Routine 04/22/22 16:49 Consult Palliative Care Routine Ordered Studies 04/21/22 00:38 CT abd pelvis IV con only Urgent CT chest diagnostic wo con Urgent Hospital Course (1) Pancreatitis: Patient is a 36 yr male with advanced ALS who presents as a transfer from [facility] for sepsis and possible pneumonia. Sepsis Anion gap metabolic acidosis sources: Pneumonia, R/O UTI --CT Chest:Extensive bilateral lower lobe consolidation with volume loss. This favors pneumonia although atelectasis could appear similar. Trace left pleural effusion. Ground glass and tree-in-bud nodules within the bilateral upper lobes which favor pneumonia or aspiration pneumonitis. Mild secretions within the airways with diffuse bronchial wall thickening. Diffuse muscular atrophy. 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 Aquatics Coordinator consulted for tube feeds DVT Px: Lovenox SQ Code Status Full Code Total Time Total Time Spent Total Time Spent (In Minutes): 65 minutes Discharge Plan Discharge Items Patient Disposition: Transfer Acute [facility] Reason For Visit: SEPSIS Discharge Diagnosis: Sepsis Anion gap metabolic acidosis Multifocal pneumonia Urinary tract infection Acute pancreatitis Suspected walled off pancreatic necrosis Hypokalemia Hyponatremia Hypomagnesemia Transaminitis Advanced ALS Activity: Per Instructions section Exercise/Sports: Wait until after follow-up appointment Non-emergency contact: Primary Care Provider and Specialist Call non-emergency contact if: you have any medication questions, your symptoms worsen, your pain is concerning for you and you have a fever Follow-up/Referrals: Leilani Butler C.R.N.P. [Primary Care Provider] - Dietitian Info: Tube Feeds Diet: Other - See Diet Comment Addtl Attending Provider Instructions: Follow up with Floor Tech at [facility] for further management Current Inpatient Medications Acetaminophen (Acetaminophen Susp 325 Mg/10.15 Ml Udc) 650 mg PO Q6H PRN PRN Reason: Fever Stop: 05/23/22 10:06 Albuterol (Albuterol 0.083% Nebu Soln 3 Ml Vial) 2.5 mg NEB Q6R PRN; Protocol PRN Reason: Shortness Of Breath Or Wheezing Stop: 05/23/22 11:25 Enoxaparin Sodium (Enoxaparin Inj 40 Mg/0.4 Ml Syr) 40 mg SQ Q24H MY[facility] Stop: 05/21/22 08:59 Last Admin: 04/23/22 08:36 Dose: 40 mg Documented by: Enteral Nutritional Formula (Peptamen 1.5 Cali 1,000 Ml Bag) 1,000 ml JT UD MYNOR; Protocol Stop: 05/23/22 10:04 Famotidine (Famotidine Susp 20 Mg/2.5 Ml Udp) 20 mg PO BID MYNOR Stop: 05/23/22 10:14 Hydromorphone HCl (Hydromorphone Inj 0.5 Mg/0.5 Ml Syr) 0.25 mg IV Q3H PRN PRN Reason: Pain Stop: 05/06/22 14:08 Last Admin: 04/23/22 05:30 Dose: 0.25 mg Documented by: Piperacillin Sod/Tazobactam (Sod 4.5 gm/ Dextrose) 120 mls @ 30 mls/hr IV Q8H MYNOR; Protocol Stop: 04/28/22 05:59 Last Infusion: 04/23/22 10:25 Dose: Infused Documented by: Magnesium Sulfate/Dextrose (Magnesium Sulfate / D5w) 1 gm in 100 mls @ 50 mls/hr IV Q2H [facility] Stop: 04/23/22 16:59 Last Admin: 04/23/22 12:30 Dose: 50 mls/hr Documented by: Potassium Chloride 20 meq/ (Lactated Ringer's) 1,010 mls @ 150 mls/hr IV .Q6H44M [facility] Stop: 05/23/22 10:14 Last Admin: 04/23/22 10:30 Dose: 150 mls/hr Documented by: Daptomycin 500 mg/ Syringe 10 mls @ 5 mls/min IV DAILY [facility]; Protocol Stop: 05/03/22 10:14 Last Admin: 04/23/22 10:51 Dose: 5 mls/min Documented by: Ketorolac Tromethamine (Ketorolac Tromethamine 10 Mg Tablet) 10 mg PO Q4H PRN PRN Reason: Pain Stop: 04/27/22 06:28 Last Admin: 04/22/22 08:55 Dose: 10 mg Documented by: Melatonin (Melatonin 3 Mg Tab) 6 mg PO HS PRN PRN Reason: Sleep Stop: 05/22/22 14:34 Last Admin: 04/23/22 04:08 Dose: 6 mg Documented by: Miscellaneous (Icu Electrolyte Replacement Protocol) 1 ea N/A BID@18 [facility]; Protocol Stop: 04/29/22 17:59 Last Admin: 04/23/22 09:55 Dose: 1 ea Documented by: Oxycodone HCl (Oxycodone Hcl Soln 5 Mg/5 Ml Udc) 7.5 mg PO Q4H PRN PRN Reason: Pain score 4 or greater Stop: 05/07/22 10:01 Sterile Water (Tube Feeding Water Flush) 150 ml JT Q4H [facility] Stop: 05/23/22 10:29 Last Admin: 04/23/22 12:44 Dose: 150 ml Documented by: Pending Studies at Discharge: Yes Studies:: Blood Cultures Stand-Alone Forms: My [facility] Skilled Items Patient informed of condition?: Yes DNR: No Discharge Level of Care: Other Communicable Disease: No Discharge Prognosis: Stable Lines: Peripheral IV Urinary Catheter: Yes Medications and DC Order Prescriptions: Continued Cannabis 1 dose PO DIRECTED PRN (Reason: NEEDED) RF: 0 hydrocortisone 0.5 % Cream 1 applic TOPICAL BID PRN (Reason: Itching) RF: 0 artificial tears(hypromellose) 0.3 % Drops 1 drp OPHTHALMIC (EYE) BID PRN (Reason: Dry Eye(S)) RF: 0 Discharge Orders: Discharge Order (Routine); Ordered 04/23/22 Ordered By: Gianluca Rasheed Admission Data Admit Date/Time: 04/21/22 00:31 Attending Provider: Gianluca Rasheed Admit Provider: Raleigh Calvert Primary Care Provider: Leilani Butler Other Providers: Corby Hernandez ; Thelma Funk ; Teresa Martin ; Taya Green ; Tayler Meraz ; Chris Lee ; Isacc Salinas ; Aileen Greer ; Marc Wooten ; Ruchi Wu ; Mariela Junior ; Nicole Nunez ; Abimbola Medrano ; Gayle Gomez ; Priya Noonan
[2022-04-23 16:27] LABS: Influenza A virus by PCR Negative (Neg); Influenza B virus by PCR Negative (Neg); RSV by PCR Negative (Neg); SARS CoV2 RNA(COVID-19) InHosp NEGATIVE (Negative)
[2022-04-23 16:31] LABS: Alanine Aminotransferase 33 U/L (7-52); Albumin Globulin Ratio 0.9 (0.9-2); Albumin Level 2.5 gm/dl (3.4-5.0); Alkaline Phosphatase 123 U/L (34-104); Anion Gap 7 (3-11); Aspartate Aminotransferase 13 U/L (13-39); Bilirubin,Total 0.4 mg/dl (0.2-1.0); Blood Urea Nitrogen 12 mg/dl (6-23); Calcium 7.9 mg/dl (8.5-10.1); Carbon Dioxide 20 mmol/L (21-32); Chloride 115 mmol/L (98-107); Creatinine Clr Calc Pharmacy 619.8 ml/min; Est GFR (African American) > 150.0 ml/min; Est GFR (Non-African American) > 150.0 ml/min; Globulin 2.7 gm/dl (2.5-4.0); Glucose 167 mg/dl (70-99(Fasting)); Magnesium 2.5 mg/dl (1.7-2.4); Phosphorus 2.6 mg/dl (2.5-4.9); Potassium 4.1 mmol/L (3.5-5.1); Sodium 142 mmol/L (136-145); Total Protein 5.2 gm/dl (6.0-8.3)
== END 2022-04-23 18:50 | DRG 871 ==
LOC: 1E 23:58

== ENCOUNTER 2022-06-10 14:12 | Inpatient (IN) ==
[2022-06-10] MEDS ORDERED: MoRPHine SULFATE 4 MG/ML 1 ML CARP\\VIAL IV STA ×2 (14:22→20:49)
[2022-06-10] MEDS ORDERED: SODIUM CHLORIDE 0.9% 1000ML 1,000 ML IV ONE ×2 (14:22→16:37)
[2022-06-10] MEDS ORDERED: ONDANSETRON INJ 2 MG/ML 2 ML VIAL IV STA (14:22)
--- NOTE | 2022-06-10 14:29 | Emergency Department Note ---
Impression & Plan Pancreatitis, ALS (amyotrophic lateral sclerosis), Chronic respiratory failure, Hypokalemia, Gastritis ED Provider Note NAME: YI ROBB AGE: 36 SEX: M : 1985 ARRIVES VIA: Ambulance INFORMANT: Patient ED PROVIDER(S): Rogerio Olson DO CHIEF COMPLAINT: abdominal pain HPI: Patient is a 36-year-old male with past medical history of ALS, currently trached with a PEG tube who presents to the ER for bilateral lower abdominal pain that started last night. No vomiting. Last bowel movement was yesterday. Pain is worse with any kind of movement. Denies any dysuria, urgency, or frequency. No other exacerbating or remitting factors. Does have a history of pancreatitis. Was recently discharged from [facility] and placed on Cipro for pancreatitis. He has been intermittently taking it. ROS: See above HPI for pertinent positives & negatives. A total of 10 systems reviewed and were otherwise negative. PAST MEDICAL HISTORY:See Below PAST SURGICAL HISTORY:See Below FAMILY HISTORY:See Below SOCIAL HISTORY:See Below HOME MEDICATIONS:See Below ALLERGIES:See Below VITALS:See Below PHYSICAL EXAMINATION: GENERAL: Sitting up in bed, alert, chronically ill appearing EYE EXAM: normal conjunctiva. OROPHARYNX: no exudate, no erythema, lips, buccal mucosa, and tongue normal and mucous membranes are moist NECK: trach in place LUNGS: Clear to auscultation. Normal chest wall mechanics HEART: no murmurs, S1 normal and S2 normal ABDOMEN: abdomen soft, TTP in b/l lower abd, normo-active bowel sounds, no masses, no rebound or guarding. UPPER EXTREMITIES: upper extremities are grossly normal. LOWER EXTREMITIES: No pitting edema. NEURO EXAM: Normal sensorium, cranial nerves II-XII grossly intact, normal speech, no gross weakness of arms, no gross weakness of legs. MEDICAL DECISION MAKING: Patient is a 36-year-old male with past medical history of ALS, who presents the ER for lower abdominal pain. IV was established blood work was obtained. Labs show leukocytosis of 27,000. No significant anemia. Platelets are elevated 624. BMP with a significant hypokalemia 2.6. LFTs bilirubin was unremarkable. Lipase was significantly elevated 1999. UA was contaminated. COVID was negative. Unable to access [facility] records at this time as CT abdomen pelvis confirms pancreatitis and improving pseudocyst. notes that he had a biopsy of the pseudocyst which grew out E. coli. He was given a prescription For Cipro which she has missed 3 days of since being discharged about a week ago. Patient was given a dose of Zosyn while here and discussed with the hospitalist Natalie laguna for further evaluation. Triage Nursing notes reviewed. Limited review of prior medical records performed Vital Signs: reviewed and remarkable for no significant abnormalities Differential diagnosis: Differential diagnoses includes but is not limited to gastritis, peptic ulcer d isease, GERD, gallbladder disease, pancreatitis, small bowel obstruction, acute coronary syndrome, pericarditis, ischemic bowel, irritable bowel disease, irritable bowel syndrome, appendicitis, diverticulitis, malignancy, hernia, urinary tract infection, torsion, /ectopic (if female), perforation, trauma, infectious. ER treatment provided: See below Diagnostics interpreted by me: ECG: none Cardiac Monitoring: An order was placed for continuous cardiac monitoring. The monitor shows a rate of 90 with sinus rhythm. Laboratory studies: As stated above and show below. Imaging studies: CT abdomen pelvis as described above Consultation(s): Discussed with Natalie laguna as stated above Procedures: none Critical Care: None Past Med/Surg History Medical History ALS (amyotrophic lateral sclerosis) DX FEBRUARY 2014 Atrial fibrillation with RVR isolated hx of, no further reoccurances Cardiac murmur AN INFANT Dry eye syndrome Left ventricular systolic dysfunction Sleep apnea USES APAP DEVICE (DX WITH ALS) ALWAYS USING >WITH 3L AT HS ONLY Slow gastric motility D/T ALS Uses feeding tube SYRINGE FEEDING THRU PEG TUBE (STILL SWALLOWS PILLS ORALLY) Surgical History History of esophagogastroduodenoscopy (EGD) History of herniorrhaphy History of tooth extraction Hx of LASIK PRK S/P percutaneous endoscopic gastrostomy (PEG) tube placement Family History Mother Family history of diabetes mellitus Other No family history of adverse response to anesthesia Social History Smoking Status: Never smoker Second Hand Exposure: No; Hx Alcohol Use: No Hx Substance Use: Yes Last Used Substance: Unknown Substance Use Type Other:: medical marijuana Preferred Language: Slovenian Communication Ability: Effective Assembler Musical Instruments Required: Video and Voice Beliefs That Will Affect Care: None marital status: Current Living Situation: Spouse and Family Current Living Situation Comment: AND 3 SONS How many Children do You have: 3 Feels Safe at Home: Yes Assistive Devices: Hospital Bed, Mechanical Lift, Nebulizer, Oxygen - Continuous, Wheelchair and Other Allergies Allergies Allergy/AdvReac Type Severity Reaction Status Date / Time No Known Allergies Allergy Verified 05/07/22 19:50 Home Meds Home Medications Medication Instructions Recorded Confirmed acetaminophen 160 mg/5 mL oral 640 mg feeding tube Q6 PRN Pain, 05/07/22 06/10/22 liquid (Children's Acetaminophen) Moderate atropine 1 % eye drops 1 drp sublingual QID PRN increased 05/07/22 06/10/22 secretions cholecalciferol (vitamin D3) 25 1,000 unit feeding tube DAILY 05/07/22 06/10/22 mcg (1,000 unit) capsule (Vitamin D3) ibuprofen 100 mg/5 mL oral 400 mg feeding tube Q6 PRN Pain, 05/07/22 06/10/22 suspension Moderate melatonin 3 mg tablet 3 - 6 mg PO HS PRN Sleep 05/07/22 06/10/22 nystatin 100,000 unit/gram topical 1 applic topical DAILY PRN Rash 05/07/22 06/10/22 powder tramadol 50 mg tablet 50 mg feeding tube Q6H PRN Pain 05/07/22 06/10/22 zinc oxide 20 % topical ointment 1 applic topical TID 05/07/22 06/10/22 A,D-thiago garciazszo-jfrjpyrcqv-k.pet 1 ea topical BID PRN scrotal area 06/10/22 06/10/22 topical ointment carboxymethylcellulose sodium 0.5 1 drp ophthalmic (eye) UD PRN Dry 06/10/22 06/10/22 % eye drops Eye(S) ciprofloxacin HCl 500 mg tablet 500 mg feeding tube DAILY 06/10/22 06/10/22 (Cipro) dextran 70-hypromellose (PF) 0.1 1 drp OPB QID 06/10/22 06/10/22 %-0.3 % eye drops in a dropperette (Artificial Tears (PF)) famotidine 40 mg/5 mL (8 mg/mL) 20 mg feeding tube BID PRN 06/10/22 06/10/22 oral suspension Indigestion guaifenesin 100 mg/5 mL oral liquid 200 mg feeding tube BID PRN Cough 06/10/22 06/10/22 ipratropium bromide 21 mcg (0.03 2 spray intranasal TID 06/10/22 06/10/22 %) nasal spray lidocaine 5 % topical ointment 1 applic topical BID PRN Pain 06/10/22 06/10/22 midodrine 5 mg tablet 5 mg feeding tube TID 06/10/22 06/10/22 nut.tx impaired digestive 1 ea feeding tube UD 06/10/22 06/10/22 fxn-fiber 0.07 gram-1.5 kcal/mL oral liquid (Vital 1.5 Cali) polyethylene glycol 3350 17 17 g feeding tube DAILY PRN 06/10/22 06/10/22 gram/dose oral powder (Miralax) Constipation riluzole 50 mg tablet 50 mg feeding tube DAILY 06/10/22 06/10/22 senna leaf extract 176 mg/5 mL 15 ml feeding tube BID PRN 06/10/22 06/10/22 oral syrup (senna) Constipation white petrolatum-mineral oil 57.3 1 applic ophthalmic (eye) HS 06/10/22 06/10/22 %-42.5 % eye ointment (Lubricant Eye) Results & Data (ED) Vital Signs Vital Signs - 24 hr 06/10/22 14:20 06/10/22 15:24 06/10/22 15:24 Temperature Temperature Source Pulse Rate 95 H Pulse Rate [Apical] 95 H Pulse Rhythm [Apical] Pulse Strength [Apical] Respiratory Rate 20 18 Respiratory Effort / Characteristics Non-Labored Non-Labored Respiratory Depth Normal Normal Respiratory Pattern Regular Blood Pressure 109/81 Blood Pressure [Right Arm] 109/81 Blood Pressure Mean 90 Blood Pressure Mean [Right Arm] 90 Pulse Oximetry 98 99 99 Oxygen Delivery Method Trach Collar Room Air Room Air Oxygen Flow Rate 4 Sepsis Recent Fever Within 48 Hours No Sepsis New/Unexplained Change in Mental Status No Sepsis Action Taken by Nursing No Action Required 06/10/22 17:54 06/10/22 19:43 Temperature 36.8 C Temperature Source Oral Pulse Rate Pulse Rate [Apical] 93 H 96 H Pulse Rhythm [Apical] Regular Pulse Strength [Apical] Normal Respiratory Rate 18 13 Respiratory Effort / Characteristics Non-Labored Non-Labored Spontaneous Respiratory Depth Normal Normal Respiratory Pattern Regular Blood Pressure Blood Pressure [Right Arm] 117/77 119/88 Blood Pressure Mean Blood Pressure Mean [Right Arm] 90 98 Pulse Oximetry 99 100 Oxygen Delivery Method Trach Collar Room Air Oxygen Flow Rate 3 Sepsis Recent Fever Within 48 Hours Sepsis New/Unexplained Change in Mental Status Sepsis Action Taken by Nursing Laboratory Data Result diagrams: 06/10/22 14:44 06/10/22 14:44 Lab Results 06/10/22 06/10/22 06/10/22 Range/Units 14:44 14:44 14:44 WBC 27.98 H (4.8-10.8) K/ul RBC 4.43 L (4.63-6.08) M/uL Hgb 12.2 L (14.0-18.0) g/dl Hct 37.5 L (40.1-51.0) % MCV 84.7 (80.0-100.0) fL MCH 27.5 (25.0-34.0) pg MCHC 32.5 (32.0-36.0) g/dL RDW Std Deviation 62.4 H (36.4-46.3) fL RDW Coeff of Aissatou 20.4 H (11.5-14.5) % Plt Count 624 H (130-400) K/uL MPV 9.5 (9.4-12.4) fL Immature Gran % (Auto) 1.0 % Neut % (Auto) 88.1 % Lymph % (Auto) 5.5 % [place] % (Auto) 4.7 % Eos % (Auto) 0.5 % Baso % (Auto) 0.2 % Neut # (Auto) 24.66 H (1.4-6.5) K/uL Lymph # (Auto) 1.54 (1.2-3.4) K/uL [place] # (Auto) 1.31 H (0.24-0.82) K/uL Eos # (Auto) 0.15 (0-0.50) K/uL Baso # (Auto) 0.05 (0-0.2) K/uL Immature Gran # (Auto) 0.27 H (0.00-0.02) K/uL ABG pH (7.35-7.45) ABG pCO2 (35-46) mmHg ABG pO2 (80-95) mmHg ABG HCO3 (19-24) mmol/L ABG O2 Saturation (90-95) % ABG Base Excess (-9-1.8) mEq/L Praveen Test (Pos) Oxygen Given Sodium 132 L (136-145) mmol/L Potassium 2.6 L (3.5-5.1) mmol/L Chloride 91 L (98-107) mmol/L Carbon Dioxide 20 L (21-32) mmol/L Anion Gap 21 H (3-11) BUN 78 H (6-23) mg/dl Creatinine 0.43 L (0.6-1.4) mg/dl Est Cr Clr Drug Dosing 265.7 ml/min Est GFR ( Amer) > 150.0 ml/min Est GFR (Non-Af Amer) > 150.0 ml/min BUN/Creatinine Ratio 181.4 H (10-20) Glucose 121 H (70-99(Fasting)) mg/dl Lactate (0.4-2.0) mmol/L Calcium 10.0 (8.5-10.1) mg/dl Magnesium 2.2 (1.7-2.4) mg/dl Total Bilirubin 1.1 H (0.2-1.0) mg/dl AST 35 (13-39) U/L ALT 64 H (7-52) U/L Alkaline Phosphatase 417 H (34-104) U/L Total Protein 9.7 H (6.0-8.3) gm/dl Albumin 4.6 (3.4-5.0) gm/dl Globulin 5.1 H (2.5-4.0) gm/dl Albumin/Globulin Ratio 0.9 (0.9-2) Lipase 2165 H (11-82) U/L Urine Color Urine Appearance (Clear) Urine pH (4.5-7.5) Ur Specific [place] (1.000-1.030) Urine Protein (Negative) Urine Glucose (UA) (Negative) Urine Ketones (Negative) Urine Blood (Negative) Urine Nitrite (Negative) Urine Bilirubin (Negative) Urine Urobilinogen (Negative) Ur Leukocyte Esterase (Negative) Urine WBC (Auto) (0-5) /hpf Urine RBC (Auto) (0-4) /hpf U Hyaline Cast (Auto) (0-5) /lpf U Epithel Cells (Auto) (0-5) /lpf Urine Bacteria (Auto) (Negative) Granular Casts (0) /lpf SARS-CoV-2, RNA, NAAT (NEGATIVE) 06/10/22 06/10/22 06/10/22 Range/Units 15:48 17:15 19:13 WBC (4.8-10.8) K/ul RBC (4.63-6.08) M/uL Hgb (14.0-18.0) g/dl Hct (40.1-51.0) % MCV (80.0-100.0) fL MCH (25.0-34.0) pg MCHC (32.0-36.0) g/dL RDW Std Deviation (36.4-46.3) fL RDW Coeff of Aissatou (11.5-14.5) % Plt Count (130-400) K/uL MPV (9.4-12.4) fL Immature Gran % (Auto) % Neut % (Auto) % Lymph % (Auto) % [place] % (Auto) % Eos % (Auto) % Baso % (Auto) % Neut # (Auto) (1.4-6.5) K/uL Lymph # (Auto) (1.2-3.4) K/uL [place] # (Auto) (0.24-0.82) K/uL Eos # (Auto) (0-0.50) K/uL Baso # (Auto) (0-0.2) K/uL Immature Gran # (Auto) (0.00-0.02) K/uL ABG pH (7.35-7.45) ABG pCO2 (35-46) mmHg ABG pO2 (80-95) mmHg ABG HCO3 (19-24) mmol/L ABG O2 Saturation (90-95) % ABG Base Excess (-9-1.8) mEq/L Praveen Test (Pos) Oxygen Given Sodium (136-145) mmol/L Potassium (3.5-5.1) mmol/L Chloride (98-107) mmol/L Carbon Dioxide (21-32) mmol/L Anion Gap (3-11) BUN (6-23) mg/dl Creatinine (0.6-1.4) mg/dl Est Cr Clr Drug Dosing ml/min Est GFR ( Amer) ml/min Est GFR (Non-Af Amer) ml/min BUN/Creatinine Ratio (10-20) Glucose (70-99(Fasting)) mg/dl Lactate 0.8 (0.4-2.0) mmol/L Calcium (8.5-10.1) mg/dl Magnesium (1.7-2.4) mg/dl Total Bilirubin (0.2-1.0) mg/dl AST (13-39) U/L ALT (7-52) U/L Alkaline Phosphatase (34-104) U/L Total Protein (6.0-8.3) gm/dl Albumin (3.4-5.0) gm/dl Globulin (2.5-4.0) gm/dl Albumin/Globulin Ratio (0.9-2) Lipase (11-82) U/L Urine Color Yellow Urine Appearance Cloudy A (Clear) Urine pH 5.0 (4.5-7.5) Ur Specific [place] 1.019 (1.000-1.030) Urine Protein 1+ H (Negative) Urine Glucose (UA) Negative (Negative) Urine Ketones Negative (Negative) Urine Blood Negative (Negative) Urine Nitrite Negative (Negative) Urine Bilirubin Negative (Negative) Urine Urobilinogen Negative (Negative) Ur Leukocyte Esterase Negative (Negative) Urine WBC (Auto) 5-10 H (0-5) /hpf Urine RBC (Auto) 10-30 H (0-4) /hpf U Hyaline Cast (Auto) 1-5 (0-5) /lpf U Epithel Cells (Auto) 20-30 H (0-5) /lpf Urine Bacteria (Auto) Negative (Negative) Granular Casts 1-5 H (0) /lpf SARS-CoV-2, RNA, NAAT NEGATIVE (NEGATIVE) 06/10/22 Range/Units 19:32 WBC (4.8-10.8) K/ul RBC (4.63-6.08) M/uL Hgb (14.0-18.0) g/dl Hct (40.1-51.0) % MCV (80.0-100.0) fL MCH (25.0-34.0) pg MCHC (32.0-36.0) g/dL RDW Std Deviation (36.4-46.3) fL RDW Coeff of Aissatou (11.5-14.5) % Plt Count (130-400) K/uL MPV (9.4-12.4) fL Immature Gran % (Auto) % Neut % (Auto) % Lymph % (Auto) % [place] % (Auto) % Eos % (Auto) % Baso % (Auto) % Neut # (Auto) (1.4-6.5) K/uL Lymph # (Auto) (1.2-3.4) K/uL [place] # (Auto) (0.24-0.82) K/uL Eos # (Auto) (0-0.50) K/uL Baso # (Auto) (0-0.2) K/uL Immature Gran # (Auto) (0.00-0.02) K/uL ABG pH 7.44 (7.35-7.45) ABG pCO2 27 L (35-46) mmHg ABG pO2 129 H (80-95) mmHg ABG HCO3 18 L (19-24) mmol/L ABG O2 Saturation > 100.0 H (90-95) % ABG Base Excess -4.4 (-9-1.8) mEq/L Rpaveen Test Pos (Pos) Oxygen Given 32 Sodium (136-145) mmol/L Potassium (3.5-5.1) mmol/L Chloride (98-107) mmol/L Carbon Dioxide (21-32) mmol/L Anion Gap (3-11) BUN (6-23) mg/dl Creatinine (0.6-1.4) mg/dl Est Cr Clr Drug Dosing ml/min Est GFR ( Amer) ml/min Est GFR (Non-Af Amer) ml/min BUN/Creatinine Ratio (10-20) Glucose (70-99(Fasting)) mg/dl Lactate (0.4-2.0) mmol/L Calcium (8.5-10.1) mg/dl Magnesium (1.7-2.4) mg/dl Total Bilirubin (0.2-1.0) mg/dl AST (13-39) U/L ALT (7-52) U/L Alkaline Phosphatase (34-104) U/L Total Protein (6.0-8.3) gm/dl Albumin (3.4-5.0) gm/dl Globulin (2.5-4.0) gm/dl Albumin/Globulin Ratio (0.9-2) Lipase (11-82) U/L Urine Color Urine Appearance (Clear) Urine pH (4.5-7.5) Ur Specific [place] (1.000-1.030) Urine Protein (Negative) Urine Glucose (UA) (Negative) Urine Ketones (Negative) Urine Blood (Negative) Urine Nitrite (Negative) Urine Bilirubin (Negative) Urine Urobilinogen (Negative) Ur Leukocyte Esterase (Negative) Urine WBC (Auto) (0-5) /hpf Urine RBC (Auto) (0-4) /hpf U Hyaline Cast (Auto) (0-5) /lpf U Epithel Cells (Auto) (0-5) /lpf Urine Bacteria (Auto) (Negative) Granular Casts (0) /lpf SARS-CoV-2, RNA, NAAT (NEGATIVE) Administered Medications Discontinued Medications Sodium Chloride (Nss 1000ml) 1,000 mls @ 999 mls/hr IV .Q1H1M ONE Stop: 06/10/22 15:22 Last Infusion: 06/10/22 15:55 Dose: 0 mls/hr Documented By: Admin: 06/10/22 14:54 Dose: 999 mls/hr Documented By: MEGHANA Piperacillin Sod/Tazobactam Sod (Zosyn) 4.5 gm in 120 mls @ 240 mls/hr IV NOW ONE Stop: 06/10/22 16:42 Last Infusion: 06/10/22 19:01 Dose: 0 mls/hr Documented By: Admin: 06/10/22 17:41 Dose: 240 mls/hr Documented By: LULU Sodium Chloride (Nss 1000ml) 1,000 mls @ 999 mls/hr IV .Q1H1M ONE Stop: 06/10/22 17:37 Last Infusion: 06/10/22 19:01 Dose: 0 mls/hr Documented By: Admin: 06/10/22 17:43 Dose: 999 mls/hr Documented By: LULU Potassium Chloride (K Jose Juan / Wtr) 10 meq in 100 mls @ 100 mls/hr IV Q1H [facility]; Protocol Stop: 06/10/22 18:44 Last Infusion: 08/08/22 20:26 Dose: 0 mls/hr Documented By: Admin: 06/10/22 19:11 Dose: 100 mls/hr Documented By: Infusion: 06/10/22 19:01 Dose: 0 mls/hr Documented By: Admin: 06/10/22 17:41 Dose: 100 mls/hr Documented By: LULU Ioversol (Optiray 320 100ml) 93 ml IV ONCE ONE Stop: 06/10/22 16:07 Last Admin: 06/10/22 16:07 Dose: 93 ml Documented By: NAZANIN Morphine Sulfate (Morphine Sulfate 4 Mg/Ml 1 Ml Carp\Vial) 4 mg IV NOW STA Stop: 06/10/22 14:23 Last Admin: 06/10/22 14:54 Dose: 4 mg Documented By: MEGHANA Morphine Sulfate (Morphine Sulfate 10 Mg/Ml Carp/Vial) 6 mg IV NOW STA Stop: 06/10/22 16:38 Last Admin: 06/10/22 16:51 Dose: 6 mg Documented By: MALI Ondansetron HCl (Ondansetron Inj 2 Mg/Ml 2 Ml Vial) 4 mg IV NOW STA Stop: 06/10/22 14:23 Last Admin: 06/10/22 14:54 Dose: 4 mg Documented By: MEGHANA Imaging Data Radiologist's Impression: Abdomen/Pelvis CT 06/10/22 14:22 CT OF THE ABDOMEN AND PELVIS WITH CONTRAST CLINICAL HISTORY: Right lower quadrant abdominal pain. COMPARISON STUDY: CT of the abdomen and pelvis May 07, 2022. TECHNIQUE: Following IV administration of 93 mL of Optiray, axial images of the abdomen and pelvis were obtained from the lung bases to the proximal femurs. Images were reviewed in the axial, sagittal, and coronal planes. IV contrast was administered without complication. Automated exposure control was utilized for the study. A dose lowering technique was utilized adhering to the principles of ALARA. CT DOSE: 1188.89 mGy.cm FINDINGS: Small bilateral pleural effusions, left larger than right, are again noted. Associated bilateral lower lobe opacities with volume loss favor atelectasis. No pneumatosis, free air or portal venous gas is present. Slight biliary ductal dilatation has developed since prior examination. No hepatic lesions are present. Gastrojejunostomy tube is in place. Diffuse gastric wall thickening has developed since prior CT of May 07, 2022. Interval placement of endovascular coils is noted within the region of the gastroduodenal artery. The spleen, adrenal glands and right kidney are normal. A 4 mm left renal calculus is present. No ureteral calculi are present. There is no hydronephrosis. Moder ately abnormal appearance of the pancreas and adjacent soft tissues again noted. Multiple pancreatic and peripancreatic fluid collections are noted. These have significantly improved since exam of May 07, 2022 and could reflect previous sites of necrosis and pseudocyst development. There is no evidence for interval gland necrosis. A 3.7 x 2.3 cm fluid collection within the pancreatic tail on axial image 199 of 581 previously measured 7.2 x 3.8 cm. A 3.9 x 2.6 cm suspected pseudocyst within the pancreatic neck previously measured 6.2 x 5.2 cm. A 2.2 x 2.3 cm cyst within the pancreatic head previously measured 4.1 x 2.6 cm. A large pseudocyst extending into the mesentery with associated nodularity and infiltration has significantly decreased in size as well. Marked mass effect on the portal splenic confluence is noted. This is increased since prior exam. Vessels remain patent. No portal venous thrombus is present No evidence for a bowel obstruction. The appendix is normal. Diffuse muscular atrophy is present. No acute fracture or suspicious lesion is identified within visualized skeletal structures. IMPRESSION: 1. Gastrojejunostomy tube in place. Interval development of diffuse gastric wall thickening of May 17, 2022. Although nonspecific, gastritis is favored. 2. Redemonstration of abnormal appearance of the pancreas with numerous pancreatic and peripancreatic fluid collections. These have significantly decreased in size since CT of May 07, 2022 and suggest improving pseudocysts. Adjacent stranding and nodularity extending into the mesentery persists. Increase in mass effect upon the portosplenic confluence. Vessels attenuated but patent. 3. No bowel obstruction. Normal appendix. 4. Slight biliary ductal dilatation which has developed since prior exam. 5. Small bilateral pleural effusions with associated lower lobe opacities which favor atelectasis. 6. 4 mm left renal calculus. No ureteral calculi or hydronephrosis. ACT 112: Negative or not required by law. Electronically signed by: Karl Jacinto M.D. 06/10/2022 4:35 PM Discharge Plan Visit Data Chief Complaint: GI Assessment ED Provider: Rogerio Olson Discharge Problem: Pancreatitis, ALS (amyotrophic lateral sclerosis), Chronic respiratory failure, Hypokalemia, Gastritis Forms Stand Alone Forms: My [facility] [employer] Prescriptions Prescriptions: No Action acetaminophen [Children's Acetaminophen] 160 mg/5 mL Liquid 640 mg feeding tube Q6 PRN (Reason: Pain, Moderate) Rx Instructions: administer 20 ml into j=tube melatonin 3 mg Tablet 3 - 6 mg PO HS PRN (Reason: Sleep) tramadol 50 mg Tablet 50 mg feeding tube Q6H PRN (Reason: Pain) zinc oxide 20 % Ointment 1 applic TOPICAL TID Rx Instructions: apply to buttocks for bed sores nystatin 100,000 unit/gram Powder 1 applic TOPICAL DAILY PRN (Reason: Rash) Rx Instructions: apply to buttocks/ groin ibuprofen 100 mg/5 mL Suspension 400 mg feeding tube Q6 PRN (Reason: Pain, Moderate) Rx Instructions: administer 20 ml into j-tube atropine 1 % Drops 1 drp sublingual QID PRN (Reason: increased secretions) cholecalciferol (vitamin D3) [Vitamin D3] 25 mcg (1,000 unit) Capsule 1,000 unit feeding tube DAILY Rx Instructions: use j-tube ciprofloxacin HCl [Cipro] 500 mg Tablet 500 mg feeding tube DAILY Rx Instructions: use j-tube./ stop tube feeds before and after famotidine 40 mg/5 mL (8 mg/mL) Suspension 20 mg feeding tube BID PRN (Reason: Indigestion) Rx Instructions: use j-tube guaifenesin 100 mg/5 mL Liquid 200 mg feeding tube BID PRN (Reason: Cough) Rx Instructions: administer 10 ml into j-tube midodrine 5 mg Tablet 5 mg feeding tube TID Rx Instructions: administer into j-tub morning,noon and bedtime polyethylene glycol 3350 [Miralax] 17 gram/dose Powder 17 g feeding tube DAILY PRN (Reason: Constipation) Rx Instructions: dissolve into 8 oz of water and administer into j-tube ipratropium bromide 21 mcg (0.03 %) [place],Non-Aerosol 2 spray INTRANASAL TID Rx Instructions: administer into each nostril 2-3 times a day riluzole 50 mg Tablet 50 mg feeding tube DAILY Rx Instructions: must be taken on empty stomach; no food 1 hr after or 2-3 hrs before dose on hold senna leaf extract [senna] 176 mg/5 mL Syrup 15 ml feeding tube BID PRN (Reason: Constipation) Vital 1.5 Cali 0.07 gram- 1.5 kcal/mL Liquid 1 ea feeding tube UD Rx Instructions: [facility] orders 65 ml/hr continuous at (5 cartons daily) [facility] reads 1 can peg tube 7 times a day lidocaine 5 % Ointment 1 applic TOPICAL BID PRN (Reason: Pain) Rx Instructions: apply to neck A,D-aloe bvlf-xbpzijrjse-j.pet Ointment 1 ea TOPICAL BID PRN (Reason: scrotal area) Lubricant Eye 57.3-42.5 % Ointment 1 applic ophthalmic (eye) HS carboxymethylcellulose sodium 0.5 % Drops 1 drp OPHTHALMIC (EYE) UD PRN (Reason: Dry Eye(S)) Artificial Tears (PF) 0.1-0.3 % Dropperette 1 drp OPB QID Referrals Referrals: Karen Carr C.R.NQuyenP. [Primary Care Provider] -
[2022-06-10 14:57] LABS: Hematocrit (blood only) 37.5 % (40.1-51.0); Hemoglobin 12.2 g/dl (14.0-18.0); Mean Corpuscular Hemoglobin 27.5 pg (25.0-34.0); Mean Corpuscular Hgb Conc 32.5 g/dL (32.0-36.0); Mean Corpuscular Volume 84.7 fL (80.0-100.0); Mean Platelet Volume 9.5 fL (9.4-12.4); Platelet Count 624 K/uL (130-400); RDW Coefficient of Variation 20.4 % (11.5-14.5); RDW Standard Deviation 62.4 fL (36.4-46.3); Red Blood Count 4.43 M/uL (4.63-6.08); White Blood Count 27.98 K/ul (4.8-10.8)
[2022-06-10 15:17] LABS: Anion Gap 21 (3-11); BUN Creatinine Ratio 181.4 (10-20); Blood Urea Nitrogen 78 mg/dl (6-23); Carbon Dioxide 20 mmol/L (21-32); Chloride 91 mmol/L (98-107); Creatinine Clr Calc Pharmacy 265.7 ml/min; Est GFR (African American) > 150.0 ml/min; Est GFR (Non-African American) > 150.0 ml/min; Glucose 121 mg/dl (70-99(Fasting)); Potassium 2.6 mmol/L (3.5-5.1); Sodium 132 mmol/L (136-145)
[2022-06-10 15:20] LABS: Basophils # (auto) 0.05 K/uL (0-0.2); Basophils % (auto) 0.2 %; Eosinophils # (auto) 0.15 K/uL (0-0.50); Eosinophils % (auto) 0.5 %; Immature Granulocytes # (auto) 0.27 K/uL (0.00-0.02); Lymphocytes # (auto) 1.54 K/uL (1.2-3.4); Lymphocytes % (auto) 5.5 %; Monocytes # (auto) 1.31 K/uL (0.24-0.82); Monocytes % (auto) 4.7 %; Neutrophils # (auto) 24.66 K/uL (1.4-6.5); Neutrophils % (auto) 88.1 %
[2022-06-10 15:28] LABS: Alanine Aminotransferase 64 U/L (7-52); Albumin Globulin Ratio 0.9 (0.9-2); Albumin Level 4.6 gm/dl (3.4-5.0); Alkaline Phosphatase 417 U/L (34-104); Aspartate Aminotransferase 35 U/L (13-39); Bilirubin,Total 1.1 mg/dl (0.2-1.0); Globulin 5.1 gm/dl (2.5-4.0); Lipase 2165 U/L (11-82); Total Protein 9.7 gm/dl (6.0-8.3)
[2022-06-10 16:06] LABS: Appearance Urine Cloudy (Clear); Bacteria Urine Automated Negative (Negative); Bilirubin Urine Negative (Negative); Blood Urine Negative (Negative); Color Urine Yellow; Epithelial Cell Urine Auto 20-30 /lpf (0-5); Glucose Urine UA Negative (Negative); Ketones Urine Negative (Negative); Leukocyte Esterase Urine Negative (Negative); Nitrite Urine Negative (Negative); Protein Urine 1+ (Negative); Specific Gravity Urine 1.019 (1.000-1.030); Urobilinogen Urine Negative (Negative)
[2022-06-10] MEDS ORDERED: OPTIRAY 320 100ml IV ONE (16:06)
[2022-06-10] MEDS ORDERED: PIPERACILLIN/TAZOBACTAM 4.5 GM/120 ML BAG IV ONE (16:13)
[2022-06-10] MEDS ORDERED: MoRPHine SULFATE 10 MG/ML CARP/VIAL IV STA (16:37)
--- NOTE | 2022-06-10 16:37 | CT Scan Report ---
CT OF THE ABDOMEN AND PELVIS WITH CONTRAST CLINICAL HISTORY: Right lower quadrant abdominal pain. COMPARISON STUDY: CT of the abdomen and pelvis May 07, 2022. TECHNIQUE: Following IV administration of 93 mL of Optiray, axial images of the abdomen and pelvis we re obtained from the lung bases to the proximal femurs. Images were reviewed in the axial, sagittal, and coronal planes. IV contrast was administered without complication. Automated exposure control wa s utilized for the study. A dose lowering technique was utilized adhering to the principles of ALARA . CT DOSE: 1188.89 mGy.cm FINDINGS: Small bilateral pleural effusions, left larger than right, are again noted. Associated bila teral lower lobe opacities with volume loss favor atelectasis. No pneumatosis, free air or portal michelle ous gas is present. Slight biliary ductal dilatation has developed since prior examination. No hepati c lesions are present. Gastrojejunostomy tube is in place. Diffuse gastric wall thickening has develo ped since prior CT of May 07, 2022. Interval placement of endovascular coils is noted within the rubina on of the gastroduodenal artery. The spleen, adrenal glands and right kidney are normal. A 4 mm left renal calculus is present. No ureteral calculi are present. There is no hydronephrosis. Moderately ab normal appearance of the pancreas and adjacent soft tissues again noted. Multiple pancreatic and gisell pancreatic fluid collections are noted. These have significantly improved since exam of May 07, 2022 and could reflect previous sites of necrosis and pseudocyst development. There is no evidence for int erval gland necrosis. A 3.7 x 2.3 cm fluid collection within the pancreatic tail on axial image 199 o f 581 previously measured 7.2 x 3.8 cm. A 3.9 x 2.6 cm suspected pseudocyst within the pancreatic nec k previously measured 6.2 x 5.2 cm. A 2.2 x 2.3 cm cyst within the pancreatic head previously measure d 4.1 x 2.6 cm. A large pseudocyst extending into the mesentery with associated nodularity and infilt ration has significantly decreased in size as well. Marked mass effect on the portal splenic confluen ce is noted. This is increased since prior exam. Vessels remain patent. No portal venous thrombus is present No evidence for a bowel obstruction. The appendix is normal. Diffuse muscular atrophy is pres ent. No acute fracture or suspicious lesion is identified within visualized skeletal structures. IMPRESSION: 1. Gastrojejunostomy tube in place. Interval development of diffuse gastric wall thickening of May [id number]. Although nonspecific, gastritis is favored. 2. Redemonstration of abnormal appearance of the pancreas with numerous pancreatic and peripancreatic fluid collections. These have significantly decreased in size since CT of May 07, 2022 and suggest i mproving pseudocysts. Adjacent stranding and nodularity extending into the mesentery persists. Increa se in mass effect upon the portosplenic confluence. Vessels attenuated but patent. 3. No bowel obstruction. Normal appendix. 4. Slight biliary ductal dilatation which has developed since prior exam. 5. Small bilateral pleural effusions with associated lower lobe opacities which favor atelectasis. 6. 4 mm left renal calculus. No ureteral calculi or hydronephrosis. ACT 112: Negative or not required by law. Electronically signed by: Karl Jacinto M.D. 06/10/2022 4:35 PM
[2022-06-10] MEDS: POTASSIUM CHLORIDE / WTR 10 MEQ/100 ML PLCT IV SCH ×2 (17:41→19:11)
--- NOTE | 2022-06-10 18:39 | History & Physical Report ---
Date of Service June 10, 2022 Assessment & Plan (1) Pancreatitis: Plan: Admit to ICU (patient requires ICU level nursing care due to chronic ventilator) Patient presenting from home with reports of abdominal pain. Recently admitted to [facility] 05/08 through 05/28 for necrotizing pancreatitis and pancreatic pseudocyst. Patient underwent IR pseudocyst aspiration and E. coli x 2 strains grew on pseudocyst aspiration. Patient [facility]. reports that patient has been refusing Cipro for the past few days. Patient also underwent EGD without evidence of GI bleed however underwent GDA embolization due to evidence of early compromise of the GDA on abdominal CT. Today, labs show WBC 27K, T bili 1.1, AST 35, ALT 64, alk phos 417, lipase 2165 CT ABD/pelvis shows significant improvement in pancreatic pseudocyst however development of slight biliary ductal dilatation Hold tube feeds IVF s/p Zosyn in the ED, continue with GI consult, case discussed with Dr. Junior (2) Gastritis: Plan: Noted on CT abd/pelvis hgb 12.2, BUN 78 hgb 7.4 05/28/22 start IV PPI BID Suspect some component of hemoconcentration with labs today however no obvious signs of GI bleeding (3) Hypokalemia: Plan: K+ 2.6 Potassium replacement DC'd during recent hospitalization due to HENRI and hyp erkalemia Replace, follow electrolytes (4) ALS (amyotrophic lateral sclerosis): (5) Chronic respiratory failure: Plan: Trach/Vent/PEG tube dependent Riluzole on hold due to being possible culprit for pancreatitis [facility] (6) Left ventricular systolic dysfunction: Plan: Prior history of mildly reduced EF Echo 05/2022 EF 55%, no significant valvular disease (7) DVT prophylaxis: Plan: SQ heparin History of Present Illness Chief Complaint: Abdominal pain Primary Care Provider: Karen Michelleridge 36-year-old male with PMH ALS trach, ventilator, PEG tube dependent, chronic pancreatitis, and other problems listed below who presents the ED for evaluation of abdominal pain. History is obtained from patient's at the bedside. Patient recently admitted to [facility] 05/08 through 05/28 for necrotizing pancreatitis and pancreatic pseudocyst. Patient underwent IR pseudocyst aspiration and E. coli x 2 strains grew on pseudocyst aspiration. Patient discharged on a course of Cipro to complete 4 weeks of therapy. reports that patient has been refusing Cipro for the past few days. Patient also underwent EGD without evidence of GI bleed however underwent GDA embolization due to evidence of early compromise of the GDA on abdominal CT. Patient's reports that over the past couple days, patient has not been acting himself. She notes increased lethargy. No fever and other vitals have been stable. Patient started reporting lower abdominal pain yesterday. Pain progressively got worse and patient presented to the ED today for further evaluation. In the ED, patient is hemodynamically stable. CT ABD/pelvis shows significant improvement in pancreatic pseudocyst however now shows slight biliary ductal dilatation. She is RT bili 1.1, AST 35, ALT 64, alk phos 417, lipase 2165. WBC 27K. K+ 2.6. Patient was given IV morphine, IV Zofran, IV Zosyn, potassium replacement, IVF. Allergies Allergy/AdvReac Type Severity Reaction Status Date / Time No Known Allergies Allergy Verified 05/07/22 19:50 Home Medications Medication Instructions Recorded Confirmed Type acetaminophen 160 mg/5 mL oral 640 mg feeding tube Q6 PRN Pain, 05/07/22 06/10/22 History liquid (Children's Acetaminophen) Moderate atropine 1 % eye drops 1 drp sublingual QID PRN increased 05/07/22 06/10/22 History secretions cholecalciferol (vitamin D3) 25 1,000 unit feeding tube DAILY 05/07/22 06/10/22 History mcg (1,000 unit) capsule (Vitamin D3) ibuprofen 100 mg/5 mL oral 400 mg feeding tube Q6 PRN Pain, 05/07/22 06/10/22 History suspension Moderate melatonin 3 mg tablet 3 - 6 mg PO HS PRN Sleep 05/07/22 06/10/22 History nystatin 100,000 unit/gram topical 1 applic topical DAILY PRN Rash 05/07/22 06/10/22 History powder tramadol 50 mg tablet 50 mg feeding tube Q6H PRN Pain 05/07/22 06/10/22 History zinc oxide 20 % topical ointment 1 applic topical TID 05/07/22 06/10/22 History A,D-aloe jbwk-vixsgqxwqg-o.pet 1 ea topical BID PRN scrotal area 06/10/22 06/10/22 History topical ointment carboxymethylcellulose sodium 0.5 1 drp ophthalmic (eye) UD PRN Dry 06/10/22 06/10/22 History % eye drops Eye(S) ciprofloxacin HCl 500 mg tablet 500 mg feeding tube DAILY 06/10/22 06/10/22 History (Cipro) dextran 70-hypromellose (PF) 0.1 1 drp OPB QID 06/10/22 06/10/22 History %-0.3 % eye drops in a dropperette (Artificial Tears (PF)) famotidine 40 mg/5 mL (8 mg/mL) 20 mg feeding tube BID PRN 06/10/22 06/10/22 History oral suspension Indigestion guaifenesin 100 mg/5 mL oral liquid 200 mg feeding tube BID PRN Cough 06/10/22 06/10/22 History ipratropium bromide 21 mcg (0.03 2 spray intranasal TID 06/10/22 06/10/22 History %) nasal spray lidocaine 5 % topical ointment 1 applic topical BID PRN Pain 06/10/22 06/10/22 History midodrine 5 mg tablet 5 mg feeding tube TID 06/10/22 06/10/22 History nut.tx impaired digestive 1 ea feeding tube UD 06/10/22 06/10/22 History fxn-fiber 0.07 gram-1.5 kcal/mL oral liquid (Vital 1.5 Cali) polyethylene glycol 3350 17 17 g feeding tube DAILY PRN 06/10/22 06/10/22 History gram/dose oral powder (Miralax) Constipation riluzole 50 mg tablet 50 mg feeding tube DAILY 06/10/22 06/10/22 History senna leaf extract 176 mg/5 mL 15 ml feeding tube BID PRN 06/10/22 06/10/22 History oral syrup (senna) Constipation white petrolatum-mineral oil 57.3 1 applic ophthalmic (eye) HS 06/10/22 06/10/22 History %-42.5 % eye ointment (Lubricant Eye) Past Med/Surg History Medical History ALS (amyotrophic lateral sclerosis) DX FEBRUARY 2014 Atrial fibrillation with RVR isolated hx of, no further reoccurances Cardiac murmur AN INFANT Dry eye syndrome Left ventricular systolic dysfunction Sleep apnea USES APAP DEVICE (DX WITH ALS) ALWAYS USING >WITH 3L AT HS ONLY Slow gastric motility D/T ALS Uses feeding tube SYRINGE FEEDING THRU PEG TUBE (STILL SWALLOWS PILLS ORALLY) Surgical History History of esophagogastroduodenoscopy (EGD) History of herniorrhaphy History of tooth extraction Hx of LASIK PRK S/P percutaneous endoscopic gastrostomy (PEG) tube placement Family History Mother Family history of diabetes mellitus Other No family history of adverse response to anesthesia Social History Smoking Status: Never smoker Second Hand Exposure: No; Hx Alcohol Use: No Hx Substance Use: Yes Last Used Substance: Unknown Substance Use Type Other:: medical marijuana Preferred Language: Somali Communication Ability: Effective Aircraft Sales Representative Required: Video and Voice Beliefs That Will Affect Care: None marital status: Current Living Situation: Spouse and Family Current Living Situation Comment: AND 3 SONS How many Children do You have: 3 Feels Safe at Home: Yes Assistive Devices: Hospital Bed, Mechanical Lift, Nebulizer, Oxygen - Continuous, Wheelchair and Other Review of Systems Review of Systems: Unobtainable due to ALS, chronic vent Physical Exam Constitutional: WD/WN, vitals as above Eyes: PERRL, conjunctivae normal, anicteric sclerae ENMT: external ear and nose normal, oropharynx normal Neck: Tracheostomy present Respiratory: normal respiratory effort; no respiratory distress Auscultation: + diminished lung sounds (Bilateral bases) Cardiovascular: Rate/Rhythm: regular rate and regular rhythm Vessels: normal peripheral pulses Extremities: + edema (Trace edema BLE) Gastrointestinal (Abdomen): Inspection/Auscultation: normal bowel sounds Percussion/Palpation: + abdomen tender (Epigastric, LLQ --patient widens eyes indicating pain) and abdomen soft; no hepatosplenomegaly PEG tube in place, connected to drainage bag that is draining green-colored drainage Musculoskeletal: Total paralysis due to ALS Skin: no rashes, warm and dry Neurologic: Total paralysis due to ALS, uses a number of blinks to indicate yes and no answers Psychiatric: Orientation: alert and oriented x 3 Results & Data Results & Data ([facility]) Vital Signs (Past 12 Hours) Vital Signs Pulse Pulse Resp BP BP Pulse Ox O2 Del Method 06/10/22 17:54 93 H 18 117/77 99 Trach Collar 06/10/22 15:24 99 Room Air 06/10/22 15:24 95 H 18 109/81 99 Room Air 06/10/22 14:20 95 H 20 109/81 98 Trach Collar O2 Flow Rate 06/10/22 17:54 3 06/10/22 15:24 06/10/22 15:24 06/10/22 14:20 4 Laboratory Results Short CBC 06/10/22 Range/Units 14:44 WBC 27.98 H (4.8-10.8) K/ul Hgb 12.2 L (14.0-18.0) g/dl Hct 37.5 L (40.1-51.0) % Plt Count 624 H (130-400) K/uL BMP 06/10/22 14:44 Sodium 132 L Potassium 2.6 L Chloride 91 L Carbon Dioxide 20 L BUN 78 H Creatinine 0.43 L Glucose 121 H Calcium 10.0 Liver Function 06/10/22 Range/Units 14:44 Total Bilirubin 1.1 H (0.2-1.0) mg/dl AST 35 (13-39) U/L ALT 64 H (7-52) U/L Alkaline Phosphatase 417 H (34-104) U/L Albumin 4.6 (3.4-5.0) gm/dl Urine 06/10/22 Range/Units 15:48 Urine Color Yellow Urine Appearance Cloudy A (Clear) Urine pH 5.0 (4.5-7.5) Ur Specific Harris 1.019 (1.000-1.030) Urine Protein 1+ H (Negative) Urine Glucose (UA) Negative (Negative) Diagnostic Findings Abdomen/Pelvis CT 06/10/22 14:22 CT OF THE ABDOMEN AND PELVIS WITH CONTRAST CLINICAL HISTORY: Right lower quadrant abdominal pain. COMPARISON STUDY: CT of the abdomen and pelvis May 07, 2022. TECHNIQUE: Following IV administration of 93 mL of Optiray, axial images of the abdomen and pelvis were obtained from the lung bases to the proximal femurs. Images were reviewed in the axial, sagittal, and coronal planes. IV contrast was administered without complication. Automated exposure control was utilized for the study. A dose lowering technique was utilized adhering to the principles of ALARA. CT DOSE: 1188.89 mGy.cm FINDINGS: Small bilateral pleural effusions, left larger than right, are again noted. Associated bilateral lower lobe opacities with volume loss favor atelectasis. No pneumatosis, free air or portal venous gas is present. Slight biliary ductal dilatation has developed since prior examination. No hepatic lesions are present. Gastrojejunostomy tube is in place. Diffuse gastric wall thickening has developed since prior CT of May 07, 2022. Interval placement of endovascular coils is noted within the region of the gastroduodenal artery. The spleen, adrenal glands and right kidney are normal. A 4 mm left renal calculus is present. No ureteral calculi are present. There is no hydronephrosis. Moderately abnormal appearance of the pancreas and adjacent soft tissues again noted. Multiple pancreatic and peripancreatic fluid collections are noted. These have significantly improved since exam of May 07, 2022 and could reflect previous sites of necrosis and pseudocyst development. There is no evidence for interval gland necrosis. A 3.7 x 2.3 cm fluid collection within the pancreatic tail on axial image 199 of 581 previously measured 7.2 x 3.8 cm. A 3.9 x 2.6 cm suspected pseudocyst within the pancreatic neck previously measured 6.2 x 5.2 cm. A 2.2 x 2.3 cm cyst within the pancreatic head previously measured 4.1 x 2.6 cm. A large pseudocyst extending into the mesentery with associated nodularity and infiltration has significantly decreased in size as well. Marked mass effect on the portal splenic confluence is noted. This is increased since prior exam. Vessels remain patent. No portal venous thrombus is present No evidence for a bowel obstruction. The appendix is normal. Diffuse muscular atrophy is present. No acute fracture or suspicious lesion is identified within visualized skeletal structures. IMPRESSION: 1. Gastrojejunostomy tube in place. Interval development of diffuse gastric wall thickening of May 17, 2022. Although nonspecific, gastritis is favored. 2. Redemonstration of abnormal appearance of the pancreas with numerous pancreatic and peripancreatic fluid collections. These have significantly decreased in size since CT of May 07, 2022 and suggest improving pseudocysts. Adjacent stranding and nodularity extending into the mesentery persists. Increase in mass effect upon the portosplenic confluence. Vessels attenuated but patent. 3. No bowel obstruction. Normal appendix. 4. Slight biliary ductal dilatation which has developed since prior exam. 5. Small bilateral pleural effusions with associated lower lobe opacities which favor atelectasis. 6. 4 mm left renal calculus. No ureteral calculi or hydronephrosis. ACT 112: Negative or not required by law. Electronically signed by: Karl Jacinto M.D. 06/10/2022 4:35 PM Code Status & VTE Plan Code Status Patient is a full code as per my discussion with his who is the bedside. VTE Prophylaxis Plan VTE Prophylaxis will be ordered: Yes Supervising Physician Co-Signing Physician Notes Patient was seen and examined independently at bedside. Chart reviewed. Case discussed with Natalie CHRISTY and agree with the documentation above. In summary, this is a 36 year old male with ALS diagnosed 2013, on trach and PEG since Dec this year and bedbound after the episodes of pancreatitis after that. He was recently admitted to [facility] 05/08-05/28 with necrotizing pancreatitis and pseudocyst requiring IR aspiration (showed Ecoli) and was discharged on cipro which he has not been compliant with. He presented today with severe abdominal pain not controlled with his tylenol, tramadol and ibuprofen. Labs and imaging reviewed. Elevated lipase, LFTs and some biliary dilation noted. Suspected acute on chronic pancreatitis and possibly sepsis with leucocytosis and tachycardia with non compliance to medications. Agree with admission to ICU, IV zosyn, IVF, bowel rest, hold tube feed, monitor labs, pain management. Replete electrolytes. GI evaluation. Rest as per the note above.
[2022-06-10 19:40] LABS: Base Excess ABG -4.4 mEq/L (-9-1.8); HCO3 ABG 18 mmol/L (19-24); Oxygen Saturation ABG > 100.0 % (90-95); PCO2 ABG 27 mmHg (35-46); PO2 ABG 129 mmHg (80-95); pH ABG 7.44 (7.35-7.45)
[2022-06-10 19:43] LABS: Allen Test Pos (Pos)
--- NOTE | 2022-06-10 22:09 | Critical Care Consultation ---
Date of Consultation June 10, 2022 Assessment & Plan (1) Ventilator dependence: Reason Critically Ill: 36-year-old male with chronic respiratory failure and ventilator dependence in the setting of ALS requiring ventilator management for hospitalization. Currently, patient utilizes trilogy at home with ventilator settings of 12 breaths/min, 620 mL tidal volume, 5 PEEP, and 3 L oxygen bleed in. ABG obtained which appears appropriate. Continue with current home ventilator settings at this time. He has requested to be on our ventilator while admitted as he prefers the heated circuit. Will match home ventilator settings. Otherwise, patient's care to be coordinated by primary service. Thank you for allowing us to participate in the care of this patient. Please refer to my attending physician's documentation for any further recommendations. History of Present Illness Attending Physician: Les Chen MD History of Present Illness Patient is a 36-year-old male with a significant past medical history of ALS, ventilator dependent respiratory failure, a fib, and recurrent pancreatitis. Patient was recently discharged from [facility] after he had been admitted for necrotizing pancreatitis with pseudocyst. He presented to the ED with return of abdominal pain and findings consistent with pancreatitis. Patient requiring admission for treatment of pancreatitis. We have been consulted for management of the patient's ventilator. Allergies Allergy/AdvReac Type Severity Reaction Status Date / Time No Known Allergies Allergy Verified 05/07/22 19:50 Home Medications Medication Instructions Recorded Confirmed Type acetaminophen 160 mg/5 mL oral 640 mg feeding tube Q6 PRN Pain, 05/07/22 06/10/22 History liquid (Children's Acetaminophen) Moderate atropine 1 % eye drops 1 drp sublingual QID PRN increased 05/07/22 06/10/22 History secretions cholecalciferol (vitamin D3) 25 1,000 unit feeding tube DAILY 05/07/22 06/10/22 History mcg (1,000 unit) capsule (Vitamin D3) ibuprofen 100 mg/5 mL oral 400 mg feeding tube Q6 PRN Pain, 05/07/22 06/10/22 History suspension Moderate melatonin 3 mg tablet 3 - 6 mg PO HS PRN Sleep 05/07/22 06/10/22 History nystatin 100,000 unit/gram topical 1 applic topical DAILY PRN Rash 05/07/22 06/10/22 History powder tramadol 50 mg tablet 50 mg feeding tube Q6H PRN Pain 05/07/22 06/10/22 History zinc oxide 20 % topical ointment 1 applic topical TID 05/07/22 06/10/22 History A,D-aloe lzpw-zsxzjynvbo-o.pet 1 ea topical BID PRN scrotal area 06/10/22 06/10/22 History topical ointment carboxymethylcellulose sodium 0.5 1 drp ophthalmic (eye) UD PRN Dry 06/10/22 06/10/22 History % eye drops Eye(S) ciprofloxacin HCl 500 mg tablet 500 mg feeding tube DAILY 06/10/22 06/10/22 History (Cipro) dextran 70-hypromellose (PF) 0.1 1 drp OPB QID 06/10/22 06/10/22 History %-0.3 % eye drops in a dropperette (Artificial Tears (PF)) famotidine 40 mg/5 mL (8 mg/mL) 20 mg feeding tube BID PRN 06/10/22 06/10/22 History oral suspension Indigestion guaifenesin 100 mg/5 mL oral liquid 200 mg feeding tube BID PRN Cough 06/10/22 06/10/22 History ipratropium bromide 21 mcg (0.03 2 spray intranasal TID 06/10/22 06/10/22 History %) nasal spray lidocaine 5 % topical ointment 1 applic topical BID PRN Pain 06/10/22 06/10/22 History midodrine 5 mg tablet 5 mg feeding tube TID 06/10/22 06/10/22 History nut.tx impaired digestive 1 ea feeding tube UD 06/10/22 06/10/22 History fxn-fiber 0.07 gram-1.5 kcal/mL oral liquid (Vital 1.5 Cali) polyethylene glycol 3350 17 17 g feeding tube DAILY PRN 06/10/22 06/10/22 History gram/dose oral powder (Miralax) Constipation riluzole 50 mg tablet 50 mg feeding tube DAILY 06/10/22 06/10/22 History senna leaf extract 176 mg/5 mL 15 ml feeding tube BID PRN 06/10/22 06/10/22 History oral syrup (senna) Constipation white petrolatum-mineral oil 57.3 1 applic ophthalmic (eye) HS 06/10/22 06/10/22 History %-42.5 % eye ointment (Lubricant Eye) Patient History Medical History ALS (amyotrophic lateral sclerosis) DX FEBRUARY 2014 Atrial fibrillation with RVR isolated hx of, no further reoccurances Cardiac murmur AN Dry eye syndrome Left ventricular systolic dysfunction Sleep apnea USES APAP DEVICE (DX WITH ALS) ALWAYS USING >WITH 3L AT HS ONLY Slow gastric motility D/T ALS Uses feeding tube SYRINGE FEEDING THRU PEG TUBE (STILL SWALLOWS PILLS ORALLY) Surgical History History of esophagogastroduodenoscopy (EGD) History of herniorrhaphy History of tooth extraction Hx of LASIK PRK S/P percutaneous endoscopic gastrostomy (PEG) tube placement Family History Mother Family history of diabetes mellitus Other No family history of adverse response to anesthesia Social History Smoking Status: Never smoker Second Hand Exposure: No; Do You Dip or Chew Tobacco: No; Tobacco Cessation Education Requested by Patient: No Hx Alcohol Use: No Hx Substance Use: Yes Last Used Substance: Unknown Substance Use Type Other:: Medical Marijuana SL or salve Preferred Language: Kyrgyz Communication Ability: Impaired Communication Ability Comment: Infrared Retinal Tracker on computer Partner Alliance Manager Required: No Beliefs That Will Affect Care: None marital status: Current Living Situation: Spouse and Family Current Living Situation Comment: AND 3 SONS How many Children do You have: 3 Other Information That Helps Us Care for You: No Feels Safe at Home: Yes Safety Concerns: Feels Safe At This Time Assistive Devices: Hospital Bed, Lift Chair, Mechanical Lift, Oxygen - Continuous and Wheelchair Assistive Devices Comment: Ventilator 3 L a/c 12, 650, 5 PEEP. 7.5 Tracheostomy Review of Systems Review of Systems: All systems reviewed & are unremarkable except as noted in Subjective Physical Exam Physical Exam: VITAL SIGNS - Vital signs and nursing notes were reviewed. GENERAL - 36-year-old male appearing his stated age. HEAD - NC/AT. LUNGS - Chest wall symmetric. Normal vesicular breath sounds CTA B/L. No wheezes, rales, or rhonchi appreciated. CARDIAC - RRR with S1/S2. No murmur, rubs, or gallops appreciated. ABDOMEN - Abdominal contour flat without pulsations or visible masses. G tube in place. Patient reports extreme TTP in the epigastrium. Negative Silver's or Franco Dubois's Signs. BS hypoactive all four quadrants. EXTREMITIES - Atrophy of the upper and lower extremities bilaterally. NEUROLOGIC - Muscle atrophy consistent with ALS diagnosis. Communicates with an iPad using visual tablet. Results & Data Results & Data ([facility]) Vital Signs (Past 12 Hours) Vital Signs Temp Pulse Pulse Resp BP BP Pulse Ox 06/10/22 21:13 06/10/22 21:12 99 H 18 109/71 99 06/10/22 19:43 36.8 C 96 H 13 119/88 100 06/10/22 17:54 93 H 18 117/77 99 06/10/22 15:24 99 06/10/22 15:24 95 H 18 109/81 99 06/10/22 14:20 95 H 20 109/81 98 O2 Del Method O2 Flow Rate 06/10/22 21:13 Room Air 06/10/22 21:12 Other 06/10/22 19:43 Room Air 06/10/22 17:54 Trach Collar 3 06/10/22 15:24 Room Air 06/10/22 15:24 Room Air 06/10/22 14:20 Trach Collar 4 Coding Level of Care Code 51837 Inpt Consult Level 3 Diagnoses Ventilator dependence Z99.11 Time Spent (min) 35
[2022-06-10] MEDS ORDERED: ICU PROTOCOL FOR HYPERGLYCEMIA PRN (22:13)
[2022-06-10] MEDS ORDERED: MoRPHine SULFATE 2 MG/ML CARP ONE (22:19)
[2022-06-10] MEDS: MoRPHine SULFATE 4 MG/ML 1 ML CARP\\VIAL IV PRN (22:22)
[2022-06-10] MEDS: LACTATED RINGER'S 1,000 ML IV SCH (22:48)
[2022-06-10] MEDS: POTASSIUM CHLORIDE 20 MEQ/15 ML UDC PEG SCH (23:25)
[2022-06-10] MEDS: HEPARIN SOD 5,000 UNIT/0.5 ML VIAL SQ SCH (23:25)
[2022-06-10] MEDS: PIPERACILLIN/TAZOBACTAM 3.375 GM in DEXTROSE 5% 100 ML IV SCH (23:26)
[2022-06-10] MEDS: PANTOprazole 40 MG in SYRINGE 0 ML IV SCH (23:26)
[2022-06-10 23:36] LABS: Anion Gap 16 (3-11); BUN Creatinine Ratio 196.7 (10-20); Blood Urea Nitrogen 59 mg/dl (6-23); Carbon Dioxide 17 mmol/L (21-32); Chloride 101 mmol/L (98-107); Creatinine Clr Calc Pharmacy 380.8 ml/min; Est GFR (African American) > 150.0 ml/min; Est GFR (Non-African American) > 150.0 ml/min; Glucose 127 mg/dl (70-99(Fasting)); Potassium 2.9 mmol/L (3.5-5.1); Sodium 134 mmol/L (136-145)
[2022-06-11] MEDS: HEPARIN SOD 5,000 UNIT/0.5 ML VIAL SQ SCH ×4 (01:53→21:33)
[2022-06-11] MEDS: LACTATED RINGER'S 1,000 ML IV SCH ×5 (04:43→22:09)
[2022-06-11] MEDS: POTASSIUM CHLORIDE 20 MEQ/15 ML UDC PEG SCH (04:44)
[2022-06-11] MEDS: PIPERACILLIN/TAZOBACTAM 3.375 GM in DEXTROSE 5% 100 ML IV SCH ×3 (05:35→21:32)
[2022-06-11] MEDS: MoRPHine SULFATE 4 MG/ML 1 ML CARP\\VIAL IV PRN ×5 (05:55→23:53)
[2022-06-11 06:28] LABS: Alanine Aminotransferase 39 U/L (7-52); Albumin Globulin Ratio 0.9 (0.9-2); Albumin Level 3.6 gm/dl (3.4-5.0); Alkaline Phosphatase 271 U/L (34-104); Anion Gap 15 (3-11); Aspartate Aminotransferase 22 U/L (13-39); Bilirubin,Total 1.6 mg/dl (0.2-1.0); Blood Urea Nitrogen 48 mg/dl (6-23); Calcium 8.7 mg/dl (8.5-10.1); Carbon Dioxide 18 mmol/L (21-32); Chloride 103 mmol/L (98-107); Est GFR (African American) > 150.0 ml/min; Est GFR (Non-African American) > 150.0 ml/min; Globulin 3.8 gm/dl (2.5-4.0); Glucose 127 mg/dl (70-99(Fasting)); Potassium 2.4 mmol/L (3.5-5.1); Sodium 136 mmol/L (136-145); Total Protein 7.4 gm/dl (6.0-8.3)
[2022-06-11 06:36] LABS: Lipase 1189 U/L (11-82)
[2022-06-11] MEDS: POTASSIUM CHLORIDE / WTR 10 MEQ/100 ML PLCT IV SCH ×4 (06:43→11:36)
[2022-06-11] MEDS: PANTOprazole 40 MG in SYRINGE 0 ML IV SCH ×2 (07:58→21:32)
[2022-06-11 08:00] LABS: Hematocrit (blood only) 34.7 % (40.1-51.0); Hemoglobin 11.4 g/dl (14.0-18.0); Mean Corpuscular Hemoglobin 27.8 pg (25.0-34.0); Mean Corpuscular Hgb Conc 32.9 g/dL (32.0-36.0); Mean Corpuscular Volume 84.6 fL (80.0-100.0); Platelet Count 569 K/uL (130-400); RDW Coefficient of Variation 20.1 % (11.5-14.5); RDW Standard Deviation 62.6 fL (36.4-46.3); White Blood Count 31.29 K/ul (4.8-10.8)
--- NOTE | 2022-06-11 08:26 | Critical Care Progress Note ---
Date of Service June 11, 2022 Assessment & Plan (1) Ventilator dependence: (2) Chronic respiratory failure: (3) ALS (amyotrophic lateral sclerosis): Plan Impression: 36-year-old male with chronic respiratory failure and ventilator dependence in the setting of ALS requiring ventilator management for hospitalization for pancreatitis. Recommendations: 1. Chronic respiratory failure: The patient is well compensated currently. He is using our vent and circuit as he feels that heated humidification is somewhat more comfortable for him. His oxygen saturations are acceptable. Minimal secretions. Continue routine trach care with respiratory therapy. 2. Patient is in the intensive care unit for ICU monitoring given chronic vent status at home and respiratory therapy assistance. His ventilator needs are chronic. He is having any acute respiratory issues. His reason for admission to the hospital is primarily associated with GI issues. Discussed with the hospitalist team. They are managing all of his other medical issues and will continue to manage his ventilator as needed. Admission and Anticipated Discharge Date Admission Date: June 10, 2022 Subjective Patient seen and examined. EMR reviewed. Discussed with bedside critical care nurse and at bedside. Review of Systems Review of Systems: All systems reviewed & are unremarkable except as noted in HPI & below Physical Exam Constitutional: WD/WN, vitals as above Eyes: PERRL, conjunctivae normal, anicteric sclerae ENMT: external ear and nose normal, oropharynx normal Neck: Tracheostomy present Respiratory: normal respiratory effort; no respiratory distress Auscu ltation: + diminished lung sounds (Bilateral bases) Cardiovascular: Rate/Rhythm: regular rate and regular rhythm Vessels: normal peripheral pulses Extremities: + edema (Trace edema BLE) Gastrointestinal (Abdomen): Inspection/Auscultation: normal bowel sounds Percussion/Palpation: + abdomen tender (Epigastric, LLQ --patient widens eyes indicating pain) and abdomen soft; no hepatosplenomegaly PEG tube in place, Musculoskeletal: Total paralysis due to ALS Skin: no rashes, warm and dry Neurologic: Total paralysis due to ALS, uses a number of blinks to indicate yes and no answers Psychiatric: Orientation: alert and oriented x 3 Results & Data Results & Data ([facility]) Vital Signs (Past 12 Hours) Vital Signs Temp Pulse Pulse Resp BP BP Pulse Ox 06/11/22 02:00 06/11/22 02:00 106 H 12 108/73 98 06/11/22 04:00 36.7 C 104 H 12 107/73 100 06/11/22 03:00 107 H 12 99 06/10/22 22:13 06/10/22 22:13 96 H 06/11/22 01:00 104 H 14 99 06/11/22 00:00 101 H 13 100 06/11/22 00:00 116/77 06/10/22 22:00 106 H 12 99 06/10/22 23:00 97 H 12 98 06/10/22 22:00 104 H 20 100 06/10/22 22:00 118/79 06/10/22 22:09 36.9 C 96 H 12 119/88 100 06/10/22 21:13 06/10/22 21:12 99 H 18 109/71 99 O2 Del Method O2 Flow Rate FiO2 06/11/22 02:00 30 06/11/22 02:00 Mechanical Vent 06/11/22 04:00 Mechanical Vent 06/11/22 03:00 30 06/10/22 22:13 Mechanical Vent 30 06/10/22 22:13 06/11/22 01:00 06/11/22 00:00 06/11/22 00:00 06/10/22 22:00 30 06/10/22 23:00 06/10/22 22:00 06/10/22 22:00 06/10/22 22:09 Mechanical Vent 3 06/10/22 21:13 Room Air 06/10/22 21:12 Other Critical Care Results & Data Vital Signs (Past 12 Hours) Vital Signs Temp Pulse Pulse Resp BP BP Pulse Ox 06/11/22 08:16 100 H 12 100 06/11/22 02:00 06/11/22 02:00 106 H 12 108/73 98 06/11/22 04:00 36.7 C 104 H 12 107/73 100 06/11/22 03:00 107 H 12 99 06/10/22 22:13 06/10/22 22:13 96 H 06/11/22 01:00 104 H 14 99 06/11/22 00:00 101 H 13 100 06/11/22 00:00 116/77 06/10/22 22:00 106 H 12 99 06/10/22 23:00 97 H 12 98 06/10/22 22:00 104 H 20 100 06/10/22 22:00 118/79 06/10/22 22:09 36.9 C 96 H 12 119/88 100 06/10/22 21:13 06/10/22 21:12 99 H 18 109/71 99 O2 Del Method O2 Flow Rate FiO2 06/11/22 08:16 30 06/11/22 02:00 30 06/11/22 02:00 Mechanical Vent 06/11/22 04:00 Mechanical Vent 06/11/22 03:00 30 06/10/22 22:13 Mechanical Vent 30 06/10/22 22:13 06/11/22 01:00 06/11/22 00:00 06/11/22 00:00 06/10/22 22:00 30 06/10/22 23:00 06/10/22 22:00 06/10/22 22:00 06/10/22 22:09 Mechanical Vent 3 06/10/22 21:13 Room Air 06/10/22 21:12 Other Lab & Micro Results (Past 24 Hours) RBC 4.10 M/uL (4.63-6.08) L 06/11/22 WBC 31.29 K/ul (4.8-10.8) H* 06/11/22 Hgb 11.4 g/dl (14.0-18.0) L 06/11/22 Hct 34.7 % (40.1-51.0) L 06/11/22 MCV 84.6 fL (80.0-100.0) 06/11/22 MCH 27.8 pg (25.0-34.0) 06/11/22 MCHC 32.9 g/dL (32.0-36.0) 06/11/22 RDW Standard Deviation 62.6 fL (36.4-46.3) H 06/11/22 RDW Coefficient of Variation 20.1 % (11.5-14.5) H 06/11/22 Plt Count 569 K/uL (130-400) H 06/11/22 MPV 10.0 fL (9.4-12.4) 06/11/22 Neutrophils (%) (Auto) 88.1 % 06/10/22 Lymphocytes (%) (Auto) 5.5 % 06/10/22 Monocytes # (Auto) 1.31 K/uL (0.24-0.82) H 06/10/22 Eosinophils # (Auto) 0.15 K/uL (0-0.50) 06/10/22 Immature Granulocyte % (Auto) 1.0 % 06/10/22 Neutrophils # (Auto) 24.66 K/uL (1.4-6.5) H 06/10/22 Lymphocytes # (Auto) 1.54 K/uL (1.2-3.4) 06/10/22 Monocytes # (Auto) 1.31 K/uL (0.24-0.82) H 06/10/22 Eosinophils # (Auto) 0.15 K/uL (0-0.50) 06/10/22 Basophils # (Auto) 0.05 K/uL (0-0.2) 06/10/22 Immature Granulocyte # (Auto) 0.27 K/uL (0.00-0.02) H 06/10 Na 136 mmol/L (136-145) 06/11/22 K 2.4 mmol/L (3.5-5.1) L* 06/11/22 Cl 103 mmol/L (98-107) 06/11/22 CO2 18 mmol/L (21-32) L 06/11/22 Anion Gap 15 (3-11) H 06/11/22 BUN 48 mg/dl (6-23) H 06/11/22 Creatinine 0.24 mg/dl (0.6-1.4) L 06/11/22 Estimated GFR ( Amer) > 150.0 ml/min 06/11/22 Estimated GFR (Non-Af Amer) > 150.0 ml/min 06/11/22 BUN/Creatinine Ratio 200.0 (10-20) H 06/11/22 Glu 127 mg/dl (70-99(Fasting)) H 06/11/22 Ca 8.7 mg/dl (8.5-10.1) 06/11/22 Total Bilirubin 1.6 mg/dl (0.2-1.0) H 06/11/22 AST 22 U/L (13-39) 06/11/22 ALT 39 U/L (7-52) 06/11/22 Alkaline Phosphatase 271 U/L (34-104) H 06/11/22 TP 7.4 gm/dl (6.0-8.3) 06/11/22 Albumin 3.6 gm/dl (3.4-5.0) 06/11/22 Globulin 3.8 gm/dl (2.5-4.0) 06/11/22 Albumin/Globulin Ratio 0.9 (0.9-2) 06/11/22 Mg 2.2 mg/dl (1.7-2.4) 06/10/22 14:44 Calcium Level 8.7 mg/dl (8.5-10.1) 06/11/22 05:53 Arterial Blood pH 7.44 (7.35-7.45) 06/10/22 19:32 Arterial Blood Partial Pressure CO2 27 mmHg (35-46) L 06/10/22 19:32 Arterial Blood Partial Pressure O2 129 mmHg (80-95) H 06/10/22 19:32 Arterial Blood HCO3 18 mmol/L (19-24) L 06/10/22 19:32 Arterial Blood Base Excess -4.4 mEq/L (-9-1.8) 06/10/22 19:32 Arterial Blood Oxygen Saturation > 100.0 % (90-95) H 06/10/22 1 9:32 Blood Gas Oxygen Given 32 06/10/22 19:32 Praveen Test Pos (Pos) 06/10/22 19:32 Diagnostic Findings (Past 24 Hours) Abdomen/Pelvis CT 06/10/22 14:22 CT OF THE ABDOMEN AND PELVIS WITH CONTRAST CLINICAL HISTORY: Right lower quadrant abdominal pain. COMPARISON STUDY: CT of the abdomen and pelvis May 07, 2022. TECHNIQUE: Following IV administration of 93 mL of Optiray, axial images of the abdomen and pelvis were obtained from the lung bases to the proximal femurs. Images were reviewed in the axial, sagittal, and coronal planes. IV contrast was administered without complication. Automated exposure control was utilized for the study. A dose lowering technique was utilized adhering to the principles of ALARA. CT DOSE: 1188.89 mGy.cm FINDINGS: Small bilateral pleural effusions, left larger than right, are again noted. Associated bilateral lower lobe opacities with volume loss favor atelectasis. No pneumatosis, free air or portal venous gas is present. Slight biliary ductal dilatation has developed since prior examination. No hepatic lesions are present. Gastrojejunostomy tube is in place. Diffuse gastric wall thickening has developed since prior CT of May 07, 2022. Interval placement of endovascular coils is noted within the region of the gastroduodenal artery. The spleen, adrenal glands and right kidney are normal. A 4 mm left renal calculus is present. No ureteral calculi are present. There is no hydronephrosis. Moderately abnormal appearance of the pancreas and adjacent soft tissues again noted. Multiple pancreatic and peripancreatic fluid collections are noted. These have significantly improved since exam of May 07, 2022 and could reflect previous sites of necrosis and pseudocyst development. There is no evidence for interval gland necrosis. A 3.7 x 2.3 cm fluid collection within the pancreatic tail on axial image 199 of 581 previously measured 7.2 x 3.8 cm. A 3.9 x 2.6 cm suspected pseudocyst within the pancreatic neck previously measured 6.2 x 5.2 cm. A 2.2 x 2.3 cm cyst within the pancreatic head previously measured 4.1 x 2.6 cm. A large pseudocyst extending into the mesentery with associated nodularity and infiltration has significantly decreased in size as well. Marked mass effect on the portal splenic confluence is noted. This is increased since prior exam. Vessels remain patent. No portal venous thrombus is present No evidence for a bowel obstruction. The appendix is normal. Diffuse muscular atrophy is present. No acute fracture or suspicious lesion is identified within visualized skeletal structures. IMPRESSION: 1. Gastrojejunostomy tube in place. Interval development of diffuse gastric wall thickening of May 17, 2022. Although nonspecific, gastritis is favored. 2. Redemonstration of abnormal appearance of the pancreas with numerous pancreatic and peripancreatic fluid collections. These have significantly decreased in size since CT of May 07, 2022 and suggest improving pseudocysts. Adjacent stranding and nodularity extending into the mesentery persists. Increase in mass effect upon the portosplenic confluence. Vessels attenuated but patent. 3. No bowel obstruction. Normal appendix. 4. Slight biliary ductal dilatation which has developed since prior exam. 5. Small bilateral pleural effusions with associated lower lobe opacities which favor atelectasis. 6. 4 mm left renal calculus. No ureteral calculi or hydronephrosis. ACT 112: Negative or not required by law. Electronically signed by: Karl Jacinto M.D. 06/10/2022 4:35 PM I & O Totals 24 Hours 06/10/22 06/11/22 06/12/22 06:59 06:59 06:59 Intake Total 3415 / 3415 720 / 720 Output Total 1250 / 1250 Balance 2165 / 2165 720 / 720 Cumulative 06/10/22 13:55 thru 06/11/22 07:49 Intake Total 4135 Output Total 1250 Balance 2885 RT Ventilator Mngmt (Last Documented) Ventilator Ordered Settings Ventilator Support Mode Assist Control 06/11/22 08:16 Respiratory Rate 12 06/11/22 08:16 Ventilator Tidal Volume 620 06/11/22 08:16 Setting Minute Ventilation 7.4 06/11/22 08:16 Positive End Expiratory 5 06/11/22 08:16 Pressure Fraction of Inspired Oxygen 30 06/11/22 08:16 Ventilator - PT Measurements Respiratory Rate 12 Exhaled Tidal Volume 621 Minute Ventilation 7.4 Peak Inspiratory Airway 31 Pressure Plateau Pressure 14.9 Respiratory Cycle Inspiratory: 1:4 Expiratory Ratio Inspiratory Phase Time 1 End-Tidal CO2 26 Static Lung Compliance 62.73 Dynamic Lung Compliance 23.88 Normal Static Lung Compliance 46.00 Patient Measurements Comment Pt placed on hospital machine for heated humidity. Settings from home unit Coding Level of Care Code 56240 Subseq Hosp Care Lvl 2 Diagnoses Ventilator dependence Z99.11 Chronic respiratory failure J96.10 ALS (amyotrophic lateral sclerosis) G12.21
--- NOTE | 2022-06-11 09:02 | XRay Report ---
XR chest 1V portable HISTORY: 36 years-old Male R/O chf acute shortness of breath COMPARISON: Chest radiograph 05/07/2022 TECHNIQUE: Semierect AP view of the chest FINDINGS: Tracheostomy cannula overlies the midline at the level the clavicular heads. No pneumothorax or overt pulmonary edema. Cardiac silhouette is enlarged. Layering pleural effusions with bibasilar consolida tion. Bones appear grossly intact. IMPRESSION: 1. Cardiomegaly without overt pulmonary edema. 2. Layering pleural effusions with bibasilar consolidation. 3. Unchanged positioning of the tracheostomy cannula. ACT 112: Negative or not required by law. The above report was generated using voice recognition software. It may contain grammatical, syntax o r spelling errors. Electronically signed by: James Brody M.D. 06/11/2022 9:00 AM
[2022-06-11 10:54] LABS: Magnesium 1.8 mg/dl (1.7-2.4); Phosphorus 3.5 mg/dl (2.5-4.9)
--- NOTE | 2022-06-11 11:57 | Gastrointestinal Consultation ---
Date of Consultation June 11, 2022 Assessment & Plan (1) Pancreatitis: Pt is a 36 yo male w hx of ALS, trache and G-J feeding tube dependent, currently admitted for pancreatitis. Hx of necrotizing pancreatitis, s/p pseudocysts aspiration (Ecoli grew on Cx, on Cipro treatment), and GDA embolization. CT abd/pelvis on admission showed decreased fluid collection and pseudocyst sizes, but there's slight biliary dilation - Antibiotic management & electrolyte replacement per primary team - Obtain MRCP to eval biliary area for possible obstruction - Trend LFTs - ? clogged G-J tube. will bring feeding connector for us to check patency of tube; if clogged, and unable to be flushed, pt may need to be transferred to [facility] for replacement via IR (last replaced there by IR on 05/11) - Supportive care and symptomatic management otherwise Supervising Physician Co-Signing Physician Notes I have personally seen and examined the patient with JAELYN Whalen. Her note reflects my exam and findings. I agree with her impression and plan. Follow clinical status and WBC, if no improvement will need to consider repeat cyst aspiration by IR. If J tube needs to be redone will need IR as well. Marc Wooten M.D. History of Present Illness Reason for Consultation: Pancreatitis Requesting Physician: Dr. Ivon Bolivar Attending Physician: Dr. Marc Wooten History of Present Illness Pt is a 36 yo male w PMHx of ALS on trach, ventilator, PEG tube dependent, chronic pancreatitis, who presented to the ED yesterday for evaluation of abdominal pain. Patient communicates mostly by blinking eyes and using table, history obtained via chart review and from at his bedside. Pt was admitted at [facility] for necrotizing pancreatitis and pseudocysts. He had IR pseudocyst aspiration on 05/17/22, which grew 2 strains of Ecoli. Also had IR gastroduodenoal artery embolization due to findings of early compromise of the artery on CT scan on 05/11/22. He was DC'd on Cipro therapy but he refused this med for the past few days per and she noticed he's been more lethargic. Upon evaluation on admission, noted to have elevated WBC of 27K -> 31K, LFTs: Tbili 1.6, AST 22, ALT 39, Alk phose 271. Lipase 2165 ->1189. CT abd/pelvis showed decreased sizes of pancreatic fluid collection and pseudocysts, but there's a slight increase in biliary ductal dilation. Pt also has a Gastrojejunostomy tube. reports the tube was accidentally pulled out at [facility] and it was replaced by IR on 05/11/2022 (22Fr, 45cm). It is currently hard to push meds through the tube, and it may be clogged. Allergies Allergy/AdvReac Type Severity Reaction Status Date / Time No Known Allergies Allergy Verified 05/07/22 19:50 Home Medications Medication Instructions Recorded Confirmed Type acetaminophen 160 mg/5 mL oral 640 mg feeding tube Q6 PRN Pain, 05/07/22 06/10/22 History liquid (Children's Acetaminophen) Moderate atropine 1 % eye drops 1 drp sublingual QID PRN increased 05/07/22 06/10/22 History secretions cholecalciferol (vitamin D3) 25 1,000 unit feeding tube DAILY 05/07/22 06/10/22 History mcg (1,000 unit) capsule (Vitamin D3) ibuprofen 100 mg/5 mL oral 400 mg feeding tube Q6 PRN Pain, 05/07/22 06/10/22 History suspension Moderate melatonin 3 mg tablet 3 - 6 mg PO HS PRN Sleep 05/07/22 06/10/22 History nystatin 100,000 unit/gram topical 1 applic topical DAILY PRN Rash 05/07/22 06/10/22 History powder tramadol 50 mg tablet 50 mg feeding tube Q6H PRN Pain 05/07/22 06/10/22 History zinc oxide 20 % topical ointment 1 applic topical TID 05/07/22 06/10/22 History A,D-aloe hwco-hwbzzgbpcv-f.pet 1 ea topical BID PRN scrotal area 06/10/22 06/10/22 History topical ointment carboxymethylcellulose sodium 0.5 1 drp ophthalmic (eye) UD PRN Dry 06/10/22 06/10/22 History % eye drops Eye(S) ciprofloxacin HCl 500 mg tablet 500 mg feeding tube DAILY 06/10/22 06/10/22 History (Cipro) dextran 70-hypromellose (PF) 0.1 1 drp OPB QID 06/10/22 06/10/22 History %-0.3 % eye drops in a dropperette (Artificial Tears (PF)) famotidine 40 mg/5 mL (8 mg/mL) 20 mg feeding tube BID PRN 06/10/22 06/10/22 History oral suspension Indigestion guaifenesin 100 mg/5 mL oral liquid 200 mg feeding tube BID PRN Cough 06/10/22 06/10/22 History ipratropium bromide 21 mcg (0.03 2 spray intranasal TID 06/10/22 06/10/22 History %) nasal spray lidocaine 5 % topical ointment 1 applic topical BID PRN Pain 06/10/22 06/10/22 History midodrine 5 mg tablet 5 mg feeding tube TID 06/10/22 06/10/22 History nut.tx impaired digestive 1 ea feeding tube UD 06/10/22 06/10/22 History fxn-fiber 0.07 gram-1.5 kcal/mL oral liquid (Vital 1.5 Cali) polyethylene glycol 3350 17 17 g feeding tube DAILY PRN 06/10/22 06/10/22 History gram/dose oral powder (Miralax) Constipation riluzole 50 mg tablet 50 mg feeding tube DAILY 06/10/22 06/10/22 History senna leaf extract 176 mg/5 mL 15 ml feeding tube BID PRN 06/10/22 06/10/22 History oral syrup (senna) Constipation white petrolatum-mineral oil 57.3 1 applic ophthalmic (eye) HS 06/10/22 06/10/22 History %-42.5 % eye ointment (Lubricant Eye) Patient History Medical History ALS (amyotrophic lateral sclerosis) DX FEBRUARY 2014 Atrial fibrillation with RVR isolated hx of, no further reoccurances Cardiac murmur AN Dry eye syndrome Left ventricular systolic dysfunction Sleep apnea USES APAP DEVICE (DX WITH ALS) ALWAYS USING >WITH 3L AT HS ONLY Slow gastric motility D/T ALS Uses feeding tube SYRINGE FEEDING THRU PEG TUBE (STILL SWALLOWS PILLS ORALLY) Surgical History History of esophagogastroduodenoscopy (EGD) History of herniorrhaphy History of tooth extraction Hx of LASIK PRK S/P percutaneous endoscopic gastrostomy (PEG) tube placement Family History Mother Family history of diabetes mellitus Other No family history of adverse response to anesthesia Social History Smoking Status: Never smoker Second Hand Exposure: No; Do You Dip or Chew Tobacco: No; Tobacco Cessation Education Requested by Patient: No Hx Alcohol Use: No Hx Substance Use: Yes Last Used Substance: Unknown Substance Use Type Other:: Medical Marijuana SL or salve Preferred Language: Lao Communication Ability: Unable Communication Ability Comment: Infrared Retinal Tracker on computer Nurse Charge Rn Required: No Beliefs That Will Affect Care: None marital status: Current Living Situation: Spouse and Family Current Living Situation Comment: AND 3 SONS How many Children do You have: 3 Other Information That Helps Us Care for You: No Feels Safe at Home: Yes Safety Concerns: Feels Safe At This Time Assistive Devices: Hospital Bed, Mechanical Lift and Scooter/Electric Scooter Assistive Devices Comment: Ventilator 3 L a/c 12, 650, 5 PEEP. 7.5 Tracheostomy Review of Systems Review of Systems: Other Pt has typed in "having abdominal pain" on his tablet, otherwise communicated by blinking only. Physical Exam Constitutional: comfortable Eyes: PERRL, conjunctivae normal, anicteric sclerae ENMT: external ear and nose normal, oropharynx normal Respiratory: On trach, lung sounds clear except slightly diminished bases Cardiovascular: RRR, no murmur, no edema Gastrointestinal (Abdomen): Soft, BS hypoactive. G-J tube in place, noted 200mL bilious gastric output. Skin: no rashes, warm and dry no jaundice Neurologic: Hx of ALS, awake Results & Data ([facility]) Vital Signs (Past 12 Hours) Vital Signs Temp Pulse Pulse Resp BP BP Pulse Ox 06/11/22 10:55 114 H 12 100 06/11/22 10:00 106 H 14 06/11/22 09:00 99 H 12 99 06/11/22 09:00 109/76 06/11/22 08:00 101 H 12 97 06/11/22 08:00 105/71 06/11/22 07:00 87 12 100 06/11/22 08:16 100 H 12 100 06/11/22 08:00 06/11/22 08:00 06/11/22 08:00 107 H 06/11/22 02:00 06/11/22 02:00 106 H 12 108/73 98 06/11/22 04:00 36.7 C 104 H 12 107/73 100 06/11/22 03:00 107 H 12 99 06/11/22 01:00 104 H 14 99 06/11/22 00:00 101 H 13 100 06/11/22 00:00 116/77 O2 Del Method FiO2 06/11/22 10:55 30 06/11/22 10:00 06/11/22 09:00 06/11/22 09:00 06/11/22 08:00 06/11/22 08:00 06/11/22 07:00 06/11/22 08:16 30 06/11/22 08:00 30 06/11/22 08:00 Mechanical Vent 30 06/11/22 08:00 06/11/22 02:00 30 06/11/22 02:00 Mechanical Vent 06/11/22 04:00 Mechanical Vent 06/11/22 03:00 30 06/11/22 01:00 06/11/22 00:00 06/11/22 00:00
--- NOTE | 2022-06-11 16:32 | Hospitalist Progress Note ---
Date of Service June 11, 2022 Assessment & Plan (1) Pancreatitis: Plan: Admit to ICU (patient requires ICU level nursing care due to chronic ventilator) Patient presenting from home with reports of abdominal pain. Recently admitted to [facility] 05/08 through 05/28 for necrotizing pancreatitis and pancreatic pseudocyst. Patient underwent IR pseudocyst aspiration and E. coli x 2 strains grew on pseudocyst aspiration. Patient [facility]. reports that patient has been refusing Cipro for the past few days. Patient also underwent EGD without evidence of GI bleed however underwent GDA embolization due to evidence of early compromise of the GDA on abdominal CT. Today, labs show WBC 27K, T bili 1.1, AST 35, ALT 64, alk phos 417, lipase 2165 CT ABD/pelvis shows significant improvement in pancreatic pseudocyst however development of slight biliary ductal dilatation Hold tube feeds IVF and electrolyte replacement Has been on intravenous Zosyn and will continue Blood cultures have been sent Appreciate GI input and recommendation Nutrition PEG tube dependent PEG tube noted to be blocked this morning Appreciate GI input and recommendation If the tube remains blocked and the patient may need to go to [place] (2) Gastritis: Plan: Noted on CT abd/pelvis hgb 12.2, BUN 78 hgb 7.4 05/28/22 start IV PPI BID Suspect some component of hemoconcentration with labs today however no obvious signs of GI bleeding (3) Hypokalemia: Plan: K+ 2.6 Potassium replacement DC'd during recent hospitalization due to HENRI and hyperkalemia Replace, follow electrolytes Potassium level remains low at 2.9 has been getting potassium riders Will monitor electrolytes (4) ALS (amyotrophic lateral sclerosis): Plan: Bedbound with quadriplegia and also has tracheostomy on vent (5) Chronic respiratory failure: Plan: Trach/Vent dependent Riluzole on hold due to being possible culprit for pancreatitis [facility] (6) Left ventricular systolic dysfunction: Plan: Prior history of mildly reduced EF Echo 05/2022 EF 55%, no significant valvular disease No signs and or symptoms of fluid overload (7) DVT prophylaxis: Plan: SQ heparin Admission and Anticipated Discharge Date Admission Date: June 10, 2022 Subjective 06/11/2022 The patient was seen and examined in ICU He has ALS with quadriplegia and on dependent on vent Admitted with acute pancreatitis Communicating with his tablet and writing and blinking Has been complaining of abdominal pain Review of Systems Review of Systems: Unobtainable due to cognitive status Physical Exam 2 Physical Exam: Lying in bed without any acute distress but complains to abdominal pain Constitutional: well developed, well nourished and + ill appearing Eyes: PERRL, conjunctivae normal, anicteric sclerae ENMT: external ear and nose normal, oropharynx normal Neck: Has tracheostomy tube in situ Respiratory: no respiratory distress Auscultation: + diminished lung sounds and + crackles (Coarse crackles anteriorly bilaterally) Tracheostomy on vent Cardiovascular: Rate/Rhythm: regular rate, regular rhythm and + tachycardic Heart Sounds: normal S1 and normal S2; no murmur Extremities: + edema (Trace edema bilaterally) Gastrointestinal (Abdomen): Inspection/Auscultation: normal bowel sounds; abdomen not distended Percussion/Palpation: + abdomen tender and abdomen soft Musculoskeletal: No acute arthritis in any joint Neurologic: Alert and awake. Has quadriplegia secondary to ALS with muscle atrophy. Communicates with an iPad using visual effect Lymphatic: no cervical or axillary lymphadenopathy Results & Data Results & Data ([facility]) Vital Signs (Past 12 Hours) Vital Signs Temp Pulse Pulse Resp BP BP Pulse Ox 06/11/22 15:10 106 H 12 100 06/11/22 15:00 106 H 12 111/76 06/11/22 14:00 113 H 12 119/74 100 06/11/22 13:00 103 H 12 108/75 98 06/11/22 12:00 109 H 14 06/11/22 12:00 111/81 06/11/22 11:00 109 H 12 100 06/11/22 11:00 106/77 06/11/22 10:55 114 H 12 100 06/11/22 10:00 106 H 14 06/11/22 09:00 99 H 12 99 06/11/22 09:00 109/76 06/11/22 08:00 101 H 12 97 06/11/22 08:00 105/71 06/11/22 07:00 87 12 100 06/11/22 08:16 100 H 12 100 06/11/22 08:00 06/11/22 08:00 06/11/22 08:00 107 H 06/11/22 04:00 36.7 C 104 H 12 107/73 100 O2 Del Method FiO2 06/11/22 15:10 30 06/11/22 15:00 06/11/22 14:00 06/11/22 13:00 06/11/22 12:00 06/11/22 12:00 06/11/22 11:00 06/11/22 11:00 06/11/22 10:55 30 06/11/22 10:00 06/11/22 09:00 06/11/22 09:00 06/11/22 08:00 06/11/22 08:00 06/11/22 07:00 06/11/22 08:16 30 06/11/22 08:00 30 06/11/22 08:00 Mechanical Vent 30 06/11/22 08:00 06/11/22 04:00 Mechanical Vent Laboratory Results Short CBC 06/11/22 Range/Units 05:53 WBC 31.29 H* (4.8-10.8) K/ul Hgb 11.4 L (14.0-18.0) g/dl Hct 34.7 L (40.1-51.0) % Plt Count 569 H (130-400) K/uL BMP 06/10/22 06/11/22 22:50 05:53 Sodium 134 L 136 Potassium 2.9 L 2.4 L* Chloride 101 103 Carbon Dioxide 17 L 18 L BUN 59 H 48 H Creatinine 0.30 L 0.24 L Glucose 127 H 127 H Calcium 9.0 8.7 Liver Function 06/11/22 Range/Units 05:53 Total Bilirubin 1.6 H (0.2-1.0) mg/dl AST 22 (13-39) U/L ALT 39 (7-52) U/L Alkaline Phosphatase 271 H (34-104) U/L Albumin 3.6 (3.4-5.0) gm/dl Medications Administered Current Inpatient Medications Heparin Sodium (Porcine) (Heparin Sod 5,000 Unit/0.5 Ml Vial) 5,000 units SQ Q8 MYNOR Stop: 07/10/22 22:12 Last Admin: 06/11/22 12:54 Dose: Not Given Piperacillin Sod/Tazobactam (Sod 3.375 gm/ Dextrose) 115 mls @ 28.75 mls/hr IV Q8H [facility]; Protocol Stop: 06/20/22 21:59 Last Admin: 06/11/22 15:23 Dose: 30 mls/hr Lactated Ringer's (Lr) 1,000 mls @ 200 mls/hr IV .Q5H MYNOR Stop: 07/10/22 22:12 Last Admin: 06/11/22 12:54 Dose: 200 mls/hr Pantoprazole Sodium 40 mg/ (Syringe) 10 mls @ 5 mls/min IV BID MYNOR Stop: 07/10/22 22:12 Last Admin: 06/11/22 07:58 Dose: 5 mls/min Miscellaneous (Icu Protocol For Hyperglycemia) 1 each N/A PRN PRN; Protocol PRN Reason: Hyperglycemia Protocol Stop: 06/12/22 22:12 Morphine Sulfate (Morphine Sulfate 4 Mg/Ml 1 Ml Carp\Vial) 3 mg IV Q3H PRN PRN Reason: Pain (1,2,3,4,5) & Pre PT Stop: 06/24/22 22:12 Morphine Sulfate (Morphine Sulfate 4 Mg/Ml 1 Ml Carp\Vial) 6 mg IV Q3H PRN PRN Reason: Pain (6,7,8,9,10) Stop: 06/24/22 22:12 Last Admin: 06/11/22 14:37 Dose: 6 mg
--- NOTE | 2022-06-11 16:50 | Ultrasound Report ---
ABDOMINAL ULTRASOUND, RIGHT UPPER QUADRANT HISTORY: Evaluate for biliary ductal dilation. COMPARISON: CT of the abdomen and pelvis June 10, 2022. FINDINGS: Liver size is at the upper limits of normal. No hepatic lesions are identified. There is no significant biliary ductal dilatation. Common bile duct measures 6 mm in caliber. Pancreas is obscur ed on this examination. There is no right hydronephrosis. Gallbladder is normal. No gallstones are id entified. IMPRESSION: 1. No gallstones or biliary ductal dilatation. 2. Obscured pancreas. ACT 112: Negative or not required by law. Electronically signed by: Karl Jacinto M.D. 06/11/2022 4:49 PM
[2022-06-12] MEDS: LACTATED RINGER'S 1,000 ML IV SCH ×4 (03:12→21:30)
[2022-06-12] MEDS: PIPERACILLIN/TAZOBACTAM 3.375 GM in DEXTROSE 5% 100 ML IV SCH (05:21)
[2022-06-12] MEDS: MoRPHine SULFATE 4 MG/ML 1 ML CARP\\VIAL IV PRN ×6 (05:21→22:36)
[2022-06-12] MEDS: HEPARIN SOD 5,000 UNIT/0.5 ML VIAL SQ SCH ×3 (05:22→21:31)
[2022-06-12] MEDS ORDERED: ACETAMINOPHEN 1,000 MG/100 ML VIAL IV PRN (05:25)
[2022-06-12 06:19] LABS: Alanine Aminotransferase 26 U/L (7-52); Albumin Globulin Ratio 0.9 (0.9-2); Albumin Level 2.9 gm/dl (3.4-5.0); Alkaline Phosphatase 191 U/L (34-104); Anion Gap 11 (3-11); Aspartate Aminotransferase 16 U/L (13-39); Bilirubin,Total 1.1 mg/dl (0.2-1.0); Blood Urea Nitrogen 24 mg/dl (6-23); Calcium 8.5 mg/dl (8.5-10.1); Carbon Dioxide 20 mmol/L (21-32); Chloride 106 mmol/L (98-107); Creatinine Clr Calc Pharmacy 571.3 ml/min; Est GFR (African American) > 150.0 ml/min; Est GFR (Non-African American) > 150.0 ml/min; Globulin 3.4 gm/dl (2.5-4.0); Glucose 106 mg/dl (70-99(Fasting)); Magnesium 1.5 mg/dl (1.7-2.4); Phosphorus 2.2 mg/dl (2.5-4.9); Potassium 3.1 mmol/L (3.5-5.1); Sodium 137 mmol/L (136-145); Total Protein 6.3 gm/dl (6.0-8.3)
[2022-06-12 06:38] LABS: Hemoglobin 10.2 g/dl (14.0-18.0); Mean Corpuscular Hemoglobin 27.7 pg (25.0-34.0); Mean Corpuscular Hgb Conc 31.9 g/dL (32.0-36.0); Mean Platelet Volume 10.2 fL (9.4-12.4); Platelet Count 515 K/uL (130-400); RDW Coefficient of Variation 20.1 % (11.5-14.5); RDW Standard Deviation 64.3 fL (36.4-46.3); Red Blood Count 3.68 M/uL (4.63-6.08); White Blood Count 31.63 K/ul (4.8-10.8)
[2022-06-12 07:01] LABS: Anisocytosis Present; Basophils # (auto) 0.07 K/uL (0-0.2); Basophils % (auto) 0.2 %; Eosinophils # (auto) 0.11 K/uL (0-0.50); Eosinophils % (auto) 0.3 %; Immature Granulocytes % (auto) 0.9 %; Lymphocytes # (auto) 2.37 K/uL (1.2-3.4); Lymphocytes % (auto) 7.5 %; Monocytes % (auto) 5.7 %; Neutrophils # (auto) 26.98 K/uL (1.4-6.5); Neutrophils % (auto) 85.4 %
[2022-06-12] MEDS ORDERED: POTASSIUM PHOS 3 MMOL/1 ML INFUSION IV STA (07:42)
[2022-06-12] MEDS ORDERED: MAGNESIUM SULFATE / D5W 1 GM/100 ML BAG IV ONE (07:42)
[2022-06-12] MEDS ORDERED: POTASSIUM PHOSPHATE 30 MMOL in SODIUM CHLORIDE 0.9% 500 ML IV ONE (08:00)
[2022-06-12] MEDS: PANTOprazole 40 MG in SYRINGE 0 ML IV SCH ×2 (08:14→21:30)
--- NOTE | 2022-06-12 12:16 | Gastroenterology Progress Note ---
Date of Service June 12, 2022 Assessment & Plan (1) Pancreatitis: Plan: Pt is a 36 yo male w hx of ALS, trache and G-J feeding tube dependent, currently admitted for pancreatitis. Hx of necrotizing pancreatitis, s/p pseudocysts aspiration (Ecoli grew on Cx, on Cipro treatment), and GDA embolization. CT abd/pelvis on admission showed decreased fluid collection and pseudocyst sizes. + biliary dilation but no stones. WBC remains elevated despite antibx coverage, he is also febrile w slight improvement of tachycardia. Cultures no growth to date. Suspect infected pseudocysts which may need to be aspirated again Gastrograffin study on G tube showed no downstream obstruction. J tube able to be flushed with water today via feeding pump (30mL). - Antibiotic management & electrolyte replacement per primary team - Recommend transfer to [facility] for repeat aspiration of pseudocysts, cultures. Consider ID consult for antibiotic management as well. - Supportive care and symptomatic management otherwise. - GI sign off; pls recall prn Admission and Anticipated Discharge Date Admission Date: June 10, 2022 Subjective Patient complaining of abdominal discomfort, however not increased when we flush jejunostomy tube. White count still elevated at 31,000, he is febrile, tachycardia improved. Having bowel movements. Review of Systems Review of Systems: Other (Limited, given ALS. He is able to communicate by blinking eyes for responses and typing responses on tablet ) Physical Exam Constitutional: comfortable Eyes: PERRL, conjunctivae normal, anicteric sclerae ENMT: external ear and nose normal, oropharynx normal Respiratory: Diminished bilateral bases; on trach Cardiovascular: RRR, no murmur, no edema Gastrointestinal (Abdomen): normal bowel sounds, soft, nontender, no hepatosplenomegaly GJ tube in place, w bilious drainage via G port Skin: no rashes, warm and dry no jaundice Results & Data ([facility]) Vital Signs (Past 12 Hours) Vital Signs Temp Pulse Resp BP Pulse Ox O2 Del Method FiO2 06/12/22 11:13 108 H 12 100 30 06/12/22 09:00 101 H 18 100 06/12/22 09:00 100/65 06/12/22 08:00 103 H 16 100 06/12/22 08:00 97/68 L 06/12/22 07:00 108 H 12 99 06/12/22 07:00 84/58 L 06/12/22 08:00 Trach Collar 06/12/22 07:00 30 06/12/22 08:42 36.7 C 06/12/22 08:15 108 H 12 100 30 06/12/22 06:00 122 H 12 99 06/12/22 06:00 93/59 L 06/12/22 05:30 133 H 12 99 06/12/22 05:00 125 H 14 100 06/12/22 05:00 38.3 C H 100/65 06/12/22 04:30 121 H 12 99 06/12/22 04:00 121 H 14 99 06/12/22 04:00 104/66 06/12/22 03:50 121 H 14 100 06/12/22 03:00 100/65 06/12/22 02:50 119 H 12 100 06/12/22 03:13 30 06/12/22 02:20 117 H 12 100 06/12/22 02:00 117 H 12 06/12/22 02:00 96/65 L 06/12/22 01:40 115 H 12 100 06/12/22 01:20 115 H 14 100 06/12/22 01:00 110 H 12 100 06/12/22 01:00 106/62 06/12/22 00:40 113 H 12 100 06/12/22 00:20 117 H 12 100 06/12/22 02:23 120 H 12 100 30
--- NOTE | 2022-06-12 12:49 | Critical Care Progress Note ---
Date of Service June 12, 2022 Assessment & Plan (1) Ventilator dependence: (2) Chronic respiratory failure: (3) ALS (amyotrophic lateral sclerosis): Plan Impression: 36-year-old male with chronic respiratory failure and ventilator dependence in the setting of ALS requiring ventilator management for hospitalization for pancreatitis. Recommendations: 1. Chronic respiratory failure: The patient is well compensated currently. He is using our vent and circuit as he feels that heated humidification is somewhat more comfortable for him. His oxygen saturations are acceptable. Minimal secretions. Continue routine trach care with respiratory therapy. 2. Infected pancreatic pseudocyst: The patient remains with an elevated white count with fevers. Source would be presumptively secondary to the pseudocysts. Will discontinue Zosyn and transition to meropenem. Recommended repeat aspiration for gram stain and culture. This is not available at our institution. Discussed with primary hospitalist. Recommend transfer to tertiary facility for management of complicated pancreatic pseudocyst with secondary infection. Discussed with patient and at bedside. They would prefer to go back to [place] as this is closer to home rather than the CT. Lipase is decreasing. 3. We will defer long-term management of the patient's GJ tube to radiology and GI at [facility] who placed the tube. 4. Mild anemia: No evidence of acute blood loss. No indication for transfusion currently. 5. Hypokalemia: Continue electrolyte replacement protocols. 6. Hypomagnesemia: Again continue electrolyte replacement as well as phosphate replacement. Disposition: Anticipate transfer to [facility] for ID/IR/GI consultation. The above recommendations and plan were extensively discussed with the patient and at bedside as well as with the bedside critical care nurse and the admitting hospitalist. Admission and Anticipated Discharge Date Admission Date: June 10, 2022 Subjective Patient seen and examined. EMR reviewed. Discussed on multidisciplinary rounds and with patient at bedside. The patient has had his G and J-tube flushed. Gastrografin appeared to show appropriate drainage. Unfortunately his white count remains elevated and he is continuing to have intermittent abdominal pain. Review of Systems Review of Systems: Other Limited due to patient's ALS Physical Exam Constitutional: WD/WN, vitals as above Eyes: PERRL, conjunctivae normal, anicteric sclerae ENMT: external ear and nose normal, oropharynx normal Respiratory: normal respiratory effort; no respiratory distress Auscultation: + diminished lung sounds (Bilateral bases) Cardiovascular: Rate/Rhythm: regular rate and regular rhythm Vessels: normal peripheral pulses Extremities: + edema (Trace edema BLE) Gastrointestinal (Abdomen): Inspection/Auscultation: normal bowel sounds Percussion/Palpation: + abdomen tender (Epigastric, LLQ --patient widens eyes indicating pain) and abdomen soft; no hepatosplenomegaly Skin: no rashes, warm and dry Psychiatric: Orientation: alert and oriented x 3 Results & Data Results & Data ([facility]) Vital Signs (Past 12 Hours) Vital Signs Temp Pulse Resp BP Pulse Ox O2 Del Method FiO2 06/12/22 12:00 110 H 16 100 06/12/22 11:00 103 H 12 100 06/12/22 10:00 98 H 12 100 06/12/22 10:00 102/63 06/12/22 11:00 30 06/12/22 11:13 108 H 12 100 30 06/12/22 09:00 101 H 18 100 06/12/22 09:00 100/65 06/12/22 08:00 103 H 16 100 06/12/22 08:00 97/68 L 06/12/22 07:00 108 H 12 99 06/12/22 07:00 84/58 L 06/12/22 08:00 Trach Collar 06/12/22 07:00 30 06/12/22 08:42 36.7 C 06/12/22 08:15 108 H 12 100 30 06/12/22 06:00 122 H 12 99 06/12/22 06:00 93/59 L 06/12/22 05:30 133 H 12 99 06/12/22 05:00 125 H 14 100 06/12/22 05:00 38.3 C H 100/65 06/12/22 04:30 121 H 12 99 06/12/22 04:00 121 H 14 99 06/12/22 04:00 104/66 06/12/22 03:50 121 H 14 100 06/12/22 03:00 100/65 06/12/22 02:50 119 H 12 100 06/12/22 03:13 30 06/12/22 02:20 117 H 12 100 06/12/22 02:00 117 H 12 06/12/22 02:00 96/65 L 06/12/22 01:40 115 H 12 100 06/12/22 01:20 115 H 14 100 06/12/22 01:00 110 H 12 100 06/12/22 01:00 106/62 06/12/22 02:23 120 H 12 100 30 Critical Care Results & Data Vital Signs (Past 12 Hours) Vital Signs Temp Pulse Resp BP Pulse Ox O2 Del Method FiO2 06/12/22 12:00 110 H 16 100 06/12/22 11:00 103 H 12 100 06/12/22 10:00 98 H 12 100 06/12/22 10:00 102/63 06/12/22 11:00 30 06/12/22 11:13 108 H 12 100 30 06/12/22 09:00 101 H 18 100 06/12/22 09:00 100/65 06/12/22 08:00 103 H 16 100 06/12/22 08:00 97/68 L 06/12/22 07:00 108 H 12 99 06/12/22 07:00 84/58 L 06/12/22 08:00 Trach Collar 06/12/22 07:00 30 06/12/22 08:42 36.7 C 06/12/22 08:15 108 H 12 100 30 06/12/22 06:00 122 H 12 99 06/12/22 06:00 93/59 L 06/12/22 05:30 133 H 12 99 06/12/22 05:00 125 H 14 100 06/12/22 05:00 38.3 C H 100/65 06/12/22 04:30 121 H 12 99 06/12/22 04:00 121 H 14 99 06/12/22 04:00 104/66 06/12/22 03:50 121 H 14 100 06/12/22 03:00 100/65 06/12/22 02:50 119 H 12 100 06/12/22 03:13 30 06/12/22 02:20 117 H 12 100 06/12/22 02:00 117 H 12 06/12/22 02:00 96/65 L 06/12/22 01:40 115 H 12 100 06/12/22 01:20 115 H 14 100 06/12/22 01:00 110 H 12 100 06/12/22 01:00 106/62 06/12/22 02:23 120 H 12 100 30 Lab & Micro Results (Past 24 Hours) RBC 3.68 M/uL (4.63-6.08) L 06/12/22 WBC 31.63 K/ul (4.8-10.8) H* 06/12/22 Hgb 10.2 g/dl (14.0-18.0) L 06/12/22 Hct 32.0 % (40.1-51.0) L 06/12/22 MCV 87.0 fL (80.0-100.0) 06/12/22 MCH 27.7 pg (25.0-34.0) 06/12/22 MCHC 31.9 g/dL (32.0-36.0) L 06/12/22 RDW Standard Deviation 64.3 fL (36.4-46.3) H 06/12/22 RDW Coefficient of Variation 20.1 % (11.5-14.5) H 06/12/22 Plt Count 515 K/uL (130-400) H 06/12/22 MPV 10.2 fL (9.4-12.4) 06/12/22 Neutrophils (%) (Auto) 85.4 % 06/12/22 Lymphocytes (%) (Auto) 7.5 % 06/12/22 Monocytes # (Auto) 1.80 K/uL (0.24-0.82) H 06/12/22 Eosinophils # (Auto) 0.11 K/uL (0-0.50) 06/12/22 Immature Granulocyte % (Auto) 0.9 % 06/12/22 Neutrophils # (Auto) 26.98 K/uL (1.4-6.5) H 06/12/22 Lymphocytes # (Auto) 2.37 K/uL (1.2-3.4) 06/12/22 Monocytes # (Auto) 1.80 K/uL (0.24-0.82) H 06/12/22 Eosinophils # (Auto) 0.11 K/uL (0-0.50) 06/12/22 Basophils # (Auto) 0.07 K/uL (0-0.2) 06/12/22 Immature Granulocyte # (Auto) 0.30 K/uL (0.00-0.02) H 06/12 Anisocytosis Present 06/12/22 Na 137 mmol/L (136-145) 06/12/22 K 3.1 mmol/L (3.5-5.1) L 06/12/22 Cl 106 mmol/L (98-107) 06/12/22 CO2 20 mmol/L (21-32) L 06/12/22 Anion Gap 11 (3-11) 06/12/22 BUN 24 mg/dl (6-23) H 06/12/22 Creatinine < 0.20 mg/dl (0.6-1.4) L 06/12/22 Estimated GFR ( Amer) > 150.0 ml/min 06/12/22 Estimated GFR (Non-Af Amer) > 150.0 ml/min 06/12/22 BUN/Creatinine Ratio TNP 06/12/22 Glu 106 mg/dl (70-99(Fasting)) H 06/12/22 Ca 8.5 mg/dl (8.5-10.1) 06/12/22 Phosphorus Level 2.2 mg/dl (2.5-4.9) L 06/12/22 Total Bilirubin 1.1 mg/dl (0.2-1.0) H 06/12/22 AST 16 U/L (13-39) 06/12/22 ALT 26 U/L (7-52) 06/12/22 Alkaline Phosphatase 191 U/L (34-104) H 06/12/22 TP 6.3 gm/dl (6.0-8.3) 06/12/22 Albumin 2.9 gm/dl (3.4-5.0) L 06/12/22 Globulin 3.4 gm/dl (2.5-4.0) 06/12/22 Albumin/Globulin Ratio 0.9 (0.9-2) 06/12/22 Mg 1.5 mg/dl (1.7-2.4) L 06/12/22 05:28 Calcium Level 8.5 mg/dl (8.5-10.1) 06/12/22 05:28 Microbiology 06/10/22 17:15 Aerobic Blood Culture - Preliminary Blood No growth in Aerobic bottle after 24 hours. Anaerobic Blood Culture - Preliminary No growth in Anaerobic bottle after 24 hours. 06/10/22 17:15 Aerobic Blood Culture - Preliminary Blood No growth in Aerobic bottle after 24 hours. Anaerobic Blood Culture - Preliminary No growth in Anaerobic bottle after 24 hours. Diagnostic Findings (Past 24 Hours) Abdomen Ultrasound 06/11/22 13:25 ABDOMINAL ULTRASOUND, RIGHT UPPER QUADRANT HISTORY: Evaluate for biliary ductal dilation. COMPARISON: CT of the abdomen and pelvis June 10, 2022. FINDINGS: Liver size is at the upper limits of normal. No hepatic lesions are identified. There is no significant biliary ductal dilatation. Common bile duct measures 6 mm in caliber. Pancreas is obscured on this examination. There is no right hydronephrosis. Gallbladder is normal. No gallstones are identified. IMPRESSION: 1. No gallstones or biliary ductal dilatation. 2. Obscured pancreas. ACT 112: Negative or not required by law. Electronically signed by: Karl Jacinto M.D. 06/11/2022 4:49 PM I & O Totals 24 Hours 06/11/22 06/12/22 06/13/22 06:59 06:59 06:59 Intake Total 3415 / 3415 5315 / 5315 1215 / 1215 Output Total 1250 / 1250 2550 / 2550 0 / 0 Balance 2165 / 2165 2765 / 2765 1215 / 1215 Cumulative 06/10/22 13:55 thru 06/12/22 12:00 Intake Total 9945 Output Total 3800 Balance 6145 RT Ventilator Mngmt (Last Documented) Ventilator Ordered Settings Ventilator Support Mode Assist Control 06/12/22 11:13 Respiratory Rate 16 06/12/22 12:00 Ventilator Tidal Volume 620 06/12/22 11:13 Setting Minute Ventilation 7.4 06/12/22 11:13 Positive End Expiratory 5 06/12/22 11:13 Pressure Fraction of Inspired Oxygen 30 06/12/22 11:13 Machine Comment home settings 06/12/22 02:23 Ventilator - PT Measurements Respiratory Rate 16 Exhaled Tidal Volume 620 Minute Ventilation 7.4 Peak Inspiratory Airway 28 Pressure Plateau Pressure 15.6 Respiratory Cycle Inspiratory: 1:4 Expiratory Ratio Inspiratory Phase Time 1.0 End-Tidal CO2 26 Static Lung Compliance 58.49 Dynamic Lung Compliance 26.96 Normal Static Lung Compliance 47.00 Patient Measurements Comment suctioned and trach care done. Coding Level of Care Code 94799 Subseq Hosp Care Lvl 3 Diagnoses Ventilator dependence Z99.11 Chronic respiratory failure J96.10 ALS (amyotrophic lateral sclerosis) G12.21
--- NOTE | 2022-06-12 13:26 | XRay Report ---
KUB WITH GASTROJEJUNOSTOMY TUBE INJECTION OF OPTIRAY CLINICAL HISTORY: G-J tube COMPARISON STUDY: CT of the abdomen and pelvis June 10, 2022. PROCEDURE AND FINDINGS: Initially, a basketball scout KUB was obtained. This demonstrated a gastrojejunostomy tu be. Endovascular coils within the abdomen were noted. Apparent increased attenuation of the kidneys i s also present. 50 cc of Optiray 300 was then injected through the gastric port of the gastrojejunost anton with immediate opacification of the stomach. Contrast extended into the duodenum. No extraluminal contrast was noted. IMPRESSION: 1. Appropriately positioned gastrojejunostomy. Opacification of the stomach following injection of th e gastric port. Small amount of contrast within the duodenum. No extraluminal contrast. 2. Apparent increased attenuation of the kidneys. This could be technical. However, correlation with renal function is recommended to exclude delayed nephrograms given iodinated contrast administration on June 10, 2022. ACT 112: Negative or not required by law. Electronically signed by: Karl Jacinto M.D. 06/12/2022 1:25 PM
[2022-06-12] MEDS: MEROPENEM 500 MG in SYRINGE 0 ML IV SCH ×2 (13:55→19:40)
--- NOTE | 2022-06-12 14:34 | Hospitalist Progress Note ---
Date of Service June 12, 2022 Assessment & Plan (1) Pancreatitis: Plan: Admit to ICU (patient requires ICU level nursing care due to chronic ventilator) Patient presenting from home with reports of abdominal pain. Recently admitted to [facility] 05/08 through 05/28 for necrotizing pancreatitis and pancreatic pseudocyst. Patient underwent IR pseudocyst aspiration and E. coli x 2 strains grew on pseudocyst aspiration. Patient discharged on a course of Cipro to [facility] 4 weeks of therapy. reports that patient has been refusing Cipro for the past few days. Patient also underwent EGD without evidence of GI bleed however underwent GDA embolization due to evidence of early compromise of the GDA on abdominal CT. Today, labs show WBC 27K, T bili 1.1, AST 35, ALT 64, alk phos 417, lipase 2165 CT ABD/pelvis shows significant improvement in pancreatic pseudocyst however development of slight biliary ductal dilatation Sepsis POA secondary to acute pancreatitis Hold tube feeds IVF and electrolyte replacement Has been on intravenous Zosyn and will continue Preliminary blood cultures have been negative and urine culture is negative Appreciate GI input and recommendation-GI and full stack engineer recommended the patient to be transferred to [place] for possible IR drain is of the cyst/abscess Abdominal pain is improved and lipase is almost normal White count remains elevated at 31.63 and temperature is 38.3 this morning with tachycardia of 120 His lipase came down to 427 from [id number] Will monitor labs and electrolytes Transfer status With increasing white count >31K and fever >38 and tachycardia 122 this morning and also more tachycardia the transfer service in [place] was contacted Case discussed with Dr. Reece and the imaging studies were transmitted to [place] for their review The imaging studies and the patient's vitals were reviewed by IR specialist in [place] and suggested that there is nothing to drain at this time and the patient should be managed in [facility] We will continue with IV fluid-decrease to 125 cc an hour Pain medications as needed and keep him n.p.o. for now [id number] feeding PEG tube dependent PEG tube noted to be blocked this morning Appreciate GI input and recommendation If the tube remains blocked and the patient may need to go to [place] GJ-tube is patent and has been working Patient is n.p.o. now (2) Gastritis: Plan: Noted on CT abd/pelvis hgb 12.2, BUN 78 hgb 7.4 05/28/22 start IV PPI BID Suspect some component of hemoconcentration with labs today however no obvious signs of GI bleeding (3) Hypokalemia: Plan: Electrolytes abnormality- Secondary to acute pancreatitis K+ 2.6 Potassium replacement DC'd during recent hospitalization due to HENRI and hyperkalemia Replace, follow electrolytes Potassium level remains low at 2.9 has been getting potassium riders Will monitor electrolytes (4) ALS (amyotrophic lateral sclerosis): Plan: Bedbound with quadriplegia and also has tracheostomy on vent (5) Chronic respiratory failure: Plan: Trach/Vent dependent Riluzole on hold due to being possible culprit for pancreatitis [facility] (6) Left ventricular systolic dysfunction: Plan: Prior history of mildly reduced EF Echo 05/2022 EF 55%, no significant valvular disease No signs and or symptoms of fluid overload We will decrease LR to 150 cc an hour (7) DVT prophylaxis: Plan: SQ heparin Plan Discussed with the patient and the family members Admission and Anticipated Discharge Date Admission Date: June 10, 2022 Subjective 06/11/2022 The patient was seen and examined in ICU He has ALS with quadriplegia and on dependent on vent Admitted with acute pancreatitis Communicating with his tablet and writing and blinking Has been complaining of abdominal pain 06/12/2022 The patient was seen and examined in ICU His abdominal pain is improved with pain medications and he does not have any nausea and or vomiting He was noted to have high white blood cell count of more than 31,000 and initially in the morning noted to have tachycardia and temperature of 38.3 Does not have any increasing shortness of breath Review of Systems Review of Systems: Unobtainable due to ALS, chronic vent Physical Exam Physical Exam: Lying in bed without any acute distress but complains abdominal pain which is being improving Constitutional: well developed, well nourished and + ill appearing Eyes: PERRL, conjunctivae normal, anicteric sclerae ENMT: external ear and nose normal, oropharynx normal Respiratory: no respiratory distress Auscultation: + diminished lung sounds and + crackles (Coarse crackles anteriorly bilaterally) Cardiovascular: Rate/Rhythm: regular rate, regular rhythm and + tachycardic Heart Sounds: normal S1 and normal S2; no murmur Extremities: + edema (Trace edema bilaterally) Gastrointestinal (Abdomen): Inspection/Auscultation: normal bowel sounds; abdomen not distended Percussion/Palpation: abdomen soft; abdomen nontender GJ tube in situ Musculoskeletal: Atrophy of extremities Neurologic: Alert and awake. Communicates with visual signs Lymphatic: no cervical or axillary lymphadenopathy Results & Data Results & Data ([facility]) Vital Signs (Past 12 Hours) Vital Signs Temp Pulse Resp BP Pulse Ox O2 Del Method FiO2 06/12/22 13:00 98 H 12 100 06/12/22 13:45 37.1 C 06/12/22 12:00 110 H 16 100 06/12/22 11:00 103 H 12 100 06/12/22 10:00 98 H 12 100 06/12/22 10:00 102/63 06/12/22 11:00 30 06/12/22 11:13 108 H 12 100 30 06/12/22 09:00 101 H 18 100 06/12/22 09:00 100/65 06/12/22 08:00 103 H 16 100 06/12/22 08:00 97/68 L 06/12/22 07:00 108 H 12 99 06/12/22 07:00 84/58 L 06/12/22 08:00 Trach Collar 06/12/22 07:00 30 06/12/22 08:42 36.7 C 06/12/22 08:15 108 H 12 100 30 06/12/22 06:00 122 H 12 99 06/12/22 06:00 93/59 L 06/12/22 05:30 133 H 12 99 06/12/22 05:00 125 H 14 100 06/12/22 05:00 38.3 C H 100/65 06/12/22 04:30 121 H 12 99 06/12/22 04:00 121 H 14 99 06/12/22 04:00 104/66 06/12/22 03:50 121 H 14 100 06/12/22 03:00 100/65 06/12/22 02:50 119 H 12 100 06/12/22 03:13 30 06/12/22 02:20 117 H 12 100 06/12/22 02:23 120 H 12 100 30 Laboratory Results Short CBC 06/12/22 Range/Units 05:28 WBC 31.63 H* (4.8-10.8) K/ul Hgb 10.2 L (14.0-18.0) g/dl Hct 32.0 L (40.1-51.0) % Plt Count 515 H (130-400) K/uL BMP 06/12/22 05:28 Sodium 137 Potassium 3.1 L D Chloride 106 Carbon Dioxide 20 L BUN 24 H D Creatinine < 0.20 L Glucose 106 H Calcium 8.5 Liver Function 06/12/22 Range/Units 05:28 Total Bilirubin 1.1 H (0.2-1.0) mg/dl AST 16 (13-39) U/L ALT 26 (7-52) U/L Alkaline Phosphatase 191 H (34-104) U/L Albumin 2.9 L (3.4-5.0) gm/dl Medications Administered Current Inpatient Medications Heparin Sodium (Porcine) (Heparin Sod 5,000 Unit/0.5 Ml Vial) 5,000 units SQ Q8 MYNOR Stop: 07/10/22 22:12 Last Admin: 06/12/22 13:56 Dose: 5,000 units Lactated Ringer's (Lr) 1,000 mls @ 200 mls/hr IV .Q5H MYNOR Stop: 07/10/22 22:12 Last Admin: 06/12/22 08:13 Dose: 200 mls/hr Pantoprazole Sodium 40 mg/ (Syringe) 10 mls @ 5 mls/min IV BID MYNOR Stop: 07/10/22 22:12 Last Admin: 06/12/22 08:14 Dose: 5 mls/min Acetaminophen (Ofirmev) 1,000 mg in 100 mls @ 400 mls/hr IV Q8H PRN PRN Reason: Pain or Fever Stop: 06/15/22 05:24 Last Infusion: 06/12/22 05:54 Dose: Infused Meropenem 500 mg/ Syringe 10 mls @ 2 mls/min IV Q6H MYNOR; Protocol Stop: 06/22/22 13:59 Last Admin: 06/12/22 13:55 Dose: 2 mls/min Miscellaneous (Icu Protocol For Hyperglycemia) 1 each N/A PRN PRN; Protocol PRN Reason: Hyperglycemia Protocol Stop: 06/12/22 22:12 Morphine Sulfate (Morphine Sulfate 4 Mg/Ml 1 Ml Carp\Vial) 3 mg IV Q3H PRN PRN Reason: Pain (1,2,3,4,5) & Pre PT Stop: 06/24/22 22:12 Last Admin: 06/12/22 10:11 Dose: 3 mg Morphine Sulfate (Morphine Sulfate 4 Mg/Ml 1 Ml Carp\Vial) 6 mg IV Q3H PRN PRN Reason: Pain (6,7,8,9,10) Stop: 06/24/22 22:12 Last Admin: 06/12/22 05:21 Dose: 6 mg
[2022-06-13] MEDS: MEROPENEM 500 MG in SYRINGE 0 ML IV SCH ×4 (01:30→21:27)
[2022-06-13] MEDS: MoRPHine SULFATE 4 MG/ML 1 ML CARP\\VIAL IV PRN ×6 (01:31→18:48)
[2022-06-13] MEDS: LACTATED RINGER'S 1,000 ML IV SCH ×2 (05:08→12:06)
[2022-06-13] MEDS: HEPARIN SOD 5,000 UNIT/0.5 ML VIAL SQ SCH ×3 (06:04→21:51)
[2022-06-13 06:41] LABS: Hematocrit (blood only) 26.7 % (40.1-51.0); Hemoglobin 8.4 g/dl (14.0-18.0); Mean Corpuscular Hgb Conc 31.5 g/dL (32.0-36.0); Mean Platelet Volume 10.3 fL (9.4-12.4); Platelet Count 398 K/uL (130-400); RDW Coefficient of Variation 19.6 % (11.5-14.5); White Blood Count 25.67 K/ul (4.8-10.8)
[2022-06-13 07:03] LABS: Alanine Aminotransferase 18 U/L (7-52); Albumin Globulin Ratio 0.9 (0.9-2); Albumin Level 2.5 gm/dl (3.4-5.0); Alkaline Phosphatase 175 U/L (34-104); Anion Gap 17 (3-11); Aspartate Aminotransferase 13 U/L (13-39); Bilirubin,Total 0.6 mg/dl (0.2-1.0); Blood Urea Nitrogen 17 mg/dl (6-23); Carbon Dioxide 17 mmol/L (21-32); Chloride 106 mmol/L (98-107); Creatinine Clr Calc Pharmacy 571.3 ml/min; Est GFR (African American) > 150.0 ml/min; Est GFR (Non-African American) > 150.0 ml/min; Globulin 2.8 gm/dl (2.5-4.0); Glucose 68 mg/dl (70-99(Fasting)); Lipase 225 U/L (11-82); Magnesium 1.5 mg/dl (1.7-2.4); Phosphorus 3.2 mg/dl (2.5-4.9); Potassium 3.6 mmol/L (3.5-5.1); Sodium 140 mmol/L (136-145); Total Protein 5.3 gm/dl (6.0-8.3)
[2022-06-13 07:19] LABS: Basophils # (auto) 0.05 K/uL (0-0.2); Basophils % (auto) 0.2 %; Echinocytes 1+; Eosinophils # (auto) 0.19 K/uL (0-0.50); Eosinophils % (auto) 0.7 %; Immature Granulocytes # (auto) 0.29 K/uL (0.00-0.02); Immature Granulocytes % (auto) 1.1 %; Lymphocytes # (auto) 2.47 K/uL (1.2-3.4); Lymphocytes % (auto) 9.6 %; Monocytes # (auto) 2.49 K/uL (0.24-0.82); Monocytes % (auto) 9.7 %; Neutrophils # (auto) 20.18 K/uL (1.4-6.5); Neutrophils % (auto) 78.7 %
[2022-06-13] MEDS ORDERED: MAGNESIUM SULFATE / D5W 1 GM/100 ML BAG IV ONE (07:47)
[2022-06-13] MEDS ORDERED: DEXTROSE 50% 50 ML SYRINGE IV ONE (08:05)
[2022-06-13] MEDS: PANTOprazole 40 MG in SYRINGE 0 ML IV SCH ×2 (08:06→21:27)
[2022-06-13] MEDS ORDERED: DEXTROSE 50% 50 ML SYRINGE IV PRN (10:00)
[2022-06-13] MEDS ORDERED: GLUCAGON FOR INJ 1 MG VIAL IM PRN (10:00)
[2022-06-13] MEDS ORDERED: CARBOHYDRATES FOR HYPOGLYCEMIA PO PRN (10:00)
[2022-06-13] MEDS ORDERED: GLUCOSE 40% GEL 15 GM TUBE PO PRN (10:00)
[2022-06-13] MEDS ORDERED: GLUCOSE 10 TAB/TUBE PO PRN (10:00)
[2022-06-13] MEDS ORDERED: PEPTAMEN 1.5 CAL 1,000 ML BAG JT SCH (11:15)
[2022-06-13] MEDS: TUBE FEEDING WATER FLUSH JT SCH ×3 (12:06→23:20)
--- NOTE | 2022-06-13 13:11 | Critical Care Progress Note ---
Date of Service June 13, 2022 Assessment & Plan (1) Ventilator dependence: (2) Chronic respiratory failure: (3) ALS (amyotrophic lateral sclerosis): Plan Impression: 36-year-old male with chronic respiratory failure and ventilator dependence in the setting of ALS requiring ventilator management for hospitalization for pancreatitis. 24-hour events: Dmitriy PERALTA was contacted and reviewed the images and did not feel there was any intervention appropriate. GI has signed off his case. They feel that his feeding tube is functional. Recommendations: 1. Chronic respiratory failure: The patient is well compensated currently. He is using our vent and circuit as he feels that heated humidification is somewhat more comfortable for him. His oxygen saturations are acceptable. Minimal secretions. Continue routine trach care with respiratory therapy. 2. Infected pancreatic pseudocyst: White count slightly better today. Continue Carbapenem with anticipated duration of 10 to 14 days. May require PICC line 3. I discussed with the patient's hospitalist. Per Stephane Hurley protocol, patients that are stable on chronic home vents can be managed in the progressive care unit. I will continue to follow this patient from a pulmonary standpoint and manage his vent however I think he is appropriate to manage in the PCU. He does not have a critical care issue currently. 4. Mild anemia: No evidence of acute blood loss. No indication for transfusion currently. 5. Hypokalemia: Continue electrolyte replacement protocols. 6. Hypomagnesemia: Again continue electrolyte replacement as well as phosphate replacement. 7. This point time I think initiating tube feeding and seeing how it goes is appropriate. Discussed with nutrition. Will initially try his J-tube and transition to the G port if needed. The above recommendations and plan were extensively discussed with the patient and at bedside as well as with the bedside critical care nurse and the admitting hospitalist. Critical care services will sign off but I will continue to follow the patient f or pulmonary issues and managing his chronic vent Discussed on multidisciplinary rounds and with family and patient at bedside Admission and Anticipated Discharge Date Admission Date: June 10, 2022 Subjective Patient remains nonverbal but communicates with the assistance of an iPad. He has no new complaints this morning Review of Systems Review of Systems: Other Patient blinks no as to whether or not he has any new issues Physical Exam Constitutional: WD/WN, vitals as above Eyes: PERRL, conjunctivae normal, anicteric sclerae ENMT: external ear and nose normal, oropharynx normal Respiratory: normal respiratory effort; no respiratory distress Auscultation: + diminished lung sounds (Bilateral bases) Cardiovascular: Rate/Rhythm: regular rate and regular rhythm Vessels: normal peripheral pulses Extremities: + edema (Trace edema BLE) Gastrointestinal (Abdomen): Inspection/Auscultation: normal bowel sounds Percussion/Palpation: + abdomen tender (Epigastric, LLQ --patient widens eyes indicating pain) and abdomen soft; no hepatosplenomegaly Skin: no rashes, warm and dry Psychiatric: Orientation: alert and oriented x 3 Results & Data Results & Data ([facility]) Vital Signs (Past 12 Hours) Vital Signs Temp Pulse Resp BP Pulse Ox O2 Del Method FiO2 06/13/22 08:00 Mechanical Vent 30 06/13/22 08:00 102 H 06/13/22 07:00 30 06/13/22 07:19 101 H 12 100 30 06/13/22 06:00 106 H 14 99 06/13/22 06:00 115/67 06/13/22 05:00 105 H 12 99 06/13/22 05:00 103/62 06/13/22 04:00 110 H 12 100 06/13/22 04:00 106/62 06/13/22 03:50 112 H 12 99 30 06/13/22 03:00 109 H 12 100 06/13/22 03:00 37 C 104/63 06/13/22 02:00 110 H 12 100 06/13/22 02:00 90/60 L 06/13/22 03:00 30 Critical Care Results & Data Vital Signs (Past 12 Hours) Vital Signs Temp Pulse Resp BP Pulse Ox O2 Del Method FiO2 06/13/22 08:00 Mechanical Vent 30 06/13/22 08:00 102 H 06/13/22 07:00 30 06/13/22 07:19 101 H 12 100 30 06/13/22 06:00 106 H 14 99 06/13/22 06:00 115/67 06/13/22 05:00 105 H 12 99 06/13/22 05:00 103/62 06/13/22 04:00 110 H 12 100 06/13/22 04:00 106/62 06/13/22 03:50 112 H 12 99 30 06/13/22 03:00 109 H 12 100 06/13/22 03:00 37 C 104/63 06/13/22 02:00 110 H 12 100 06/13/22 02:00 90/60 L 06/13/22 03:00 30 Lab & Micro Results (Past 24 Hours) RBC 3.00 M/uL (4.63-6.08) L 06/13/22 WBC 25.67 K/ul (4.8-10.8) H 06/13/22 Hgb 8.4 g/dl (14.0-18.0) L 06/13/22 Hct 26.7 % (40.1-51.0) L 06/13/22 MCV 89.0 fL (80.0-100.0) 06/13/22 MCH 28.0 pg (25.0-34.0) 06/13/22 MCHC 31.5 g/dL (32.0-36.0) L 06/13/22 RDW Standard Deviation 65.0 fL (36.4-46.3) H 06/13/22 RDW Coefficient of Variation 19.6 % (11.5-14.5) H 06/13/22 Plt Count 398 K/uL (130-400) 06/13/22 MPV 10.3 fL (9.4-12.4) 06/13/22 Neutrophils (%) (Auto) 78.7 % 06/13/22 Lymphocytes (%) (Auto) 9.6 % 06/13/22 Monocytes # (Auto) 2.49 K/uL (0.24-0.82) H 06/13/22 Eosinophils # (Auto) 0.19 K/uL (0-0.50) 06/13/22 Immature Granulocyte % (Auto) 1.1 % 06/13/22 Neutrophils # (Auto) 20.18 K/uL (1.4-6.5) H 06/13/22 Lymphocytes # (Auto) 2.47 K/uL (1.2-3.4) 06/13/22 Monocytes # (Auto) 2.49 K/uL (0.24-0.82) H 06/13/22 Eosinophils # (Auto) 0.19 K/uL (0-0.50) 06/13/22 Basophils # (Auto) 0.05 K/uL (0-0.2) 06/13/22 Immature Granulocyte # (Auto) 0.29 K/uL (0.00-0.02) H 06/13 Hypersegmented Neutrophils 1+ 06/13/22 Echinocytes 1+ 06/13/22 Na 140 mmol/L (136-145) 06/13/22 K 3.6 mmol/L (3.5-5.1) 06/13/22 Cl 106 mmol/L (98-107) 06/13/22 CO2 17 mmol/L (21-32) L 06/13/22 Anion Gap 17 (3-11) H 06/13/22 BUN 17 mg/dl (6-23) 06/13/22 Creatinine < 0.20 mg/dl (0.6-1.4) L 06/13/22 Estimated GFR ( Amer) > 150.0 ml/min 06/13/22 Estimated GFR (Non-Af Amer) > 150.0 ml/min 06/13/22 BUN/Creatinine Ratio TNP 06/13/22 Glu 68 mg/dl (70-99(Fasting)) L 06/13/22 Ca 8.0 mg/dl (8.5-10.1) L 06/13/22 Phosphorus Level 3.2 mg/dl (2.5-4.9) 06/13/22 Total Bilirubin 0.6 mg/dl (0.2-1.0) 06/13/22 AST 13 U/L (13-39) 06/13/22 ALT 18 U/L (7-52) 06/13/22 Alkaline Phosphatase 175 U/L (34-104) H 06/13/22 TP 5.3 gm/dl (6.0-8.3) L 06/13/22 Albumin 2.5 gm/dl (3.4-5.0) L 06/13/22 Globulin 2.8 gm/dl (2.5-4.0) 06/13/22 Albumin/Globulin Ratio 0.9 (0.9-2) 06/13/22 Mg 1.5 mg/dl (1.7-2.4) L 06/13/22 06:14 Calcium Level 8.0 mg/dl (8.5-10.1) L 06/13/22 06:14 Microbiology 06/10/22 17:15 Aerobic Blood Culture - Preliminary Blood No growth in Aerobic bottle after 48 hours. Anaerobic Blood Culture - Preliminary No growth in Anaerobic bottle after 48 hours. 06/10/22 17:15 Aerobic Blood Culture - Preliminary Blood No growth in Aerobic bottle after 48 hours. Anaerobic Blood Culture - Preliminary No growth in Anaerobic bottle after 48 hours. Diagnostic Findings (Past 24 Hours) KUB X-Ray 06/12/22 09:50 KUB WITH GASTROJEJUNOSTOMY TUBE INJECTION OF OPTIRAY CLINICAL HISTORY: G-J tube COMPARISON STUDY: CT of the abdomen and pelvis June 10, 2022. PROCEDURE AND FINDINGS: Initially, a geological scout KUB was obtained. This demonstrated a gastrojejunostomy tube. Endovascular coils within the abdomen were noted. Apparent increased attenuation of the kidneys is also present. 50 cc of Optiray 300 was then injected through the gastric port of the gastrojejunostomy with immediate opacification of the stomach. Contrast extended into the duodenum. No extraluminal contrast was noted. IMPRESSION: 1. Appropriately positioned gastrojejunostomy. Opacification of the stomach following injection of the gastric port. Small amount of contrast within the duodenum. No extraluminal contrast. 2. Apparent increased attenuation of the kidneys. This could be technical. How ever, correlation with renal function is recommended to exclude delayed nephrograms given iodinated contrast administration on June 10, 2022. ACT 112: Negative or not required by law. Electronically signed by: Karl Jacinto M.D. 06/12/2022 1:25 PM I & O Totals 24 Hours 06/12/22 06/13/22 06/14/22 06:59 06:59 06:59 Intake Total 5315 / 5315 4725 / 4725 1100 / 1100 Output Total 2550 / 2550 750 / 750 200 / 200 Balance 2765 / 2765 3975 / 3975 900 / 900 Cumulative 06/10/22 13:55 thru 06/13/22 11:49 Intake Total 79109 Output Total 7460 Balance 9805 RT Ventilator Mngmt (Last Documented) Ventilator Ordered Settings Ventilator Support Mode Assist Control 06/13/22 07:19 Respiratory Rate 12 06/13/22 07:19 Ventilator Tidal Volume 620 06/13/22 07:19 Setting Minute Ventilation 7.4 06/13/22 07:19 Positive End Expiratory 5 06/13/22 07:19 Pressure Fraction of Inspired Oxygen 30 06/13/22 08:00 Machine Comment Home settings. 06/12/22 20:15 Ventilator - PT Measurements Respiratory Rate 12 Exhaled Tidal Volume 620 Minute Ventilation 7.4 Peak Inspiratory Airway 35 Pressure Plateau Pressure 15.1 Respiratory Cycle Inspiratory: 1:4.0 Expiratory Ratio Inspiratory Phase Time 1.0 End-Tidal CO2 26 Static Lung Compliance 61.39 Dynamic Lung Compliance 20.67 Normal Static Lung Compliance 46.00 Patient Measurements Comment Patient did not want sx'd at this time. Coding Level of Care Code 87660 Subseq Hosp Care Lvl 3 Diagnoses Ventilator dependence Z99.11 Chronic respiratory failure J96.10 ALS (amyotrophic lateral sclerosis) G12.21
--- NOTE | 2022-06-13 15:47 | Hospitalist Progress Note ---
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 coli x 2 strains grew on pseudocyst aspiration. Patient discharged on a course of Cipro to complete [address] ABD/pelvis shows significant improvement in pancreatic pseudocyst however development of slight biliary ductal dilatation Lipase 2165 Sepsis POA secondary to acute pancreatitis Hold tube feeds Continue IVF and electrolyte replacement Blood cultures negative to date IV Zosyn transition to meropenem Restarted on tube feeds Continue Protonix Appreciate GI, Billposter help Monitor electrolytes Prior hospitalist discussed with Dr. Reece and the images are reviewed by IR specialist in [place] and suggested that no intervention is needed currently. Patient may need to complete 2-week course of IV antibiotics Titrate down IV fluids as able Gwtkisfyb-[id number] feeding PEG tube dependent Appreciate GI input and recommendation Restart tube feeds (2) Gastritis: Plan: on IV PPI BID no obvious signs of GI bleeding monitor (3) Hypokalemia: Plan: Hypokalemia Hypomagnesemia Replete electrolytes as needed (4) ALS (amyotrophic lateral sclerosis): Plan: Bedbound with quadriplegia and also has tracheostomy on vent Chronic respiratory failure Continue vent support (5) Chronic respiratory failure: Plan: Trach/Vent dependent Riluzole on hold due to being possible culprit for pancreatitis [facility] (6) Left ventricular systolic dysfunction: Plan: Prior history of mildly reduced EF Echo 05/2022 EF 55%, no significant valvular disease No signs and or symptoms of fluid overload Monitor volume status (7) DVT prophylaxis: Plan: SQ heparin Plan Discussed with the patient and the family members Admission and Anticipated Discharge Date Admission Date: June 10, 2022 Subjective Patient is seen and examined at bedside Patient nonverbal at baseline Communicates to have abdominal pain which is better Plan to be restarted on tube feeds Denies any chest pain, shortness of breath Family at bedside Offers no other complaints Discussed with ICU team today Review of Systems Review of Systems: All systems reviewed & are unremarkable except as noted in Subjective Physical Exam Physical Exam: Physical Exam: Vitals signs as noted above General Appearance:Moderately built and nourished,Chronic ill appearing Head: normocephalic, Atraumatic Eyes: normal inspection, EOMI Neck: supple, Trachea midline,+Trach, Vent Respiratory/Chest: Decreased breath sounds Cardiovascular: S1, S2, No murmur Abdomen/GI:Soft, + tender, Bowel sounds present Extremities/Musculoskeletal:Atrophy, Trace edema Neurologic/Psych:AAO, Quadriplegic, ALS Skin: normal color, warm Results & Data Results & Data ([facility]) Vital Signs (Past 12 Hours) Vital Signs Pulse Resp BP Pulse Ox O2 Del Method FiO2 06/13/22 15:00 30 06/13/22 15:01 109 H 12 100 30 06/13/22 13:00 107 H 12 116/63 100 06/13/22 12:00 103 H 12 106/61 100 06/13/22 11:00 104 H 12 107/66 100 06/13/22 10:00 102 H 12 104/60 100 06/13/22 09:00 104 H 12 101/60 100 06/13/22 08:00 102 H 13 105/59 L 100 06/13/22 07:00 102 H 12 100/57 L 100 Mechanical Vent 30 06/13/22 11:00 30 06/13/22 11:04 105 H 12 100 30 06/13/22 08:00 Mechanical Vent 30 06/13/22 08:00 102 H 06/13/22 07:00 30 06/13/22 07:19 101 H 12 100 30 06/13/22 06:00 106 H 14 99 06/13/22 06:00 115/67 06/13/22 05:00 105 H 12 99 06/13/22 05:00 103/62 06/13/22 04:00 110 H 12 100 06/13/22 04:00 106/62 06/13/22 03:50 112 H 12 99 30 Laboratory Results Short CBC 06/13/22 Range/Units 06:14 WBC 25.67 H (4.8-10.8) K/ul Hgb 8.4 L (14.0-18.0) g/dl Hct 26.7 L (40.1-51.0) % Plt Count 398 (130-400) K/uL BMP 06/13/22 06:14 Sodium 140 Potassium 3.6 Chloride 106 Carbon Dioxide 17 L BUN 17 Creatinine < 0.20 L Glucose 68 L Calcium 8.0 L Liver Function 06/13/22 Range/Units 06:14 Total Bilirubin 0.6 D (0.2-1.0) mg/dl AST 13 (13-39) U/L ALT 18 (7-52) U/L Alkaline Phosphatase 175 H (34-104) U/L Albumin 2.5 L (3.4-5.0) gm/dl
[2022-06-14] MEDS: LACTATED RINGER'S 1,000 ML IV SCH ×4 (00:15→18:07)
[2022-06-14] MEDS ORDERED: MoRPHine SULFATE 2 MG/ML CARP ONE (01:58)
[2022-06-14] MEDS: MoRPHine SULFATE 4 MG/ML 1 ML CARP\\VIAL IV PRN ×4 (02:03→20:48)
[2022-06-14] MEDS: MEROPENEM 500 MG in SYRINGE 0 ML IV SCH ×4 (02:04→23:37)
[2022-06-14] MEDS: TUBE FEEDING WATER FLUSH JT SCH ×5 (04:11→23:37)
[2022-06-14] MEDS: HEPARIN SOD 5,000 UNIT/0.5 ML VIAL SQ SCH ×3 (07:34→23:35)
[2022-06-14] MEDS: MULTI VIT W/MINERALS LIQUID 15 ML UDP JT SCH (07:36)
[2022-06-14] MEDS: PANTOprazole 40 MG in SYRINGE 0 ML IV SCH (07:37)
[2022-06-14 08:00] LABS: Anion Gap 14 (3-11); Blood Urea Nitrogen 10 mg/dl (6-23); Calcium 7.8 mg/dl (8.5-10.1); Carbon Dioxide 19 mmol/L (21-32); Chloride 107 mmol/L (98-107); Creatinine Clr Calc Pharmacy 640.2 ml/min; Est GFR (African American) > 150.0 ml/min; Est GFR (Non-African American) > 150.0 ml/min; Glucose 82 mg/dl (70-99(Fasting)); Magnesium 1.4 mg/dl (1.7-2.4); Potassium 3.3 mmol/L (3.5-5.1); Sodium 140 mmol/L (136-145)
[2022-06-14 08:12] LABS: C Reactive Protein 32.85 mg/dl (0-0.5)
[2022-06-14 08:28] LABS: Appearance Urine Clear (Clear); Bacteria Urine Automated Negative (Negative); Bilirubin Urine Negative (Negative); Blood Urine Negative (Negative); Color Urine Yellow; Epithelial Cell Urine Auto >30 /lpf (0-5); Glucose Urine UA Negative (Negative); Ketones Urine 2+ (Negative); Leukocyte Esterase Urine Negative (Negative); Nitrite Urine Negative (Negative); Protein Urine 1+ (Negative); Specific Gravity Urine 1.019 (1.000-1.030); Urobilinogen Urine Negative (Negative); pH Urine 5.5 (4.5-7.5)
[2022-06-14] MEDS ORDERED: ARTIFICIAL TEARS OP PRN (08:49)
[2022-06-14] MEDS ORDERED: ATROPINE SULFATE 1% OP SOLN 5 ML BTL SL PRN (08:50)
[2022-06-14] MEDS ORDERED: LANSOPRAZOLE 15 MG SOLTAB PO SCH ×2 (09:00→21:00)
[2022-06-14 09:27] LABS: Hematocrit (blood only) 25.3 % (40.1-51.0); Hemoglobin 7.9 g/dl (14.0-18.0); Mean Corpuscular Hemoglobin 27.6 pg (25.0-34.0); Mean Corpuscular Hgb Conc 31.2 g/dL (32.0-36.0); Mean Corpuscular Volume 88.5 fL (80.0-100.0); Mean Platelet Volume 9.8 fL (9.4-12.4); Platelet Count 390 K/uL (130-400); RDW Coefficient of Variation 19.9 % (11.5-14.5); RDW Standard Deviation 63.9 fL (36.4-46.3); Red Blood Count 2.86 M/uL (4.63-6.08); White Blood Count 14.73 K/ul (4.8-10.8)
[2022-06-14] MEDS: MAGNESIUM SULFATE / D5W 1 GM/100 ML BAG IV SCH ×2 (10:08→11:33)
[2022-06-14] MEDS: POTASSIUM CHLORIDE / WTR 10 MEQ/100 ML PLCT IV SCH ×3 (10:08→13:08)
[2022-06-14] MEDS: MIDODRINE HCL 2.5 MG TAB PO SCH ×3 (10:28→23:36)
--- NOTE | 2022-06-14 15:00 | Pulmonology Progress Note ---
Date of Service June 14, 2022 Assessment & Plan (1) Ventilator dependence: (2) Chronic respiratory failure: (3) ALS (amyotrophic lateral sclerosis): Plan Impression: 36-year-old male with chronic respiratory failure and ventilator dependence in the setting of ALS requiring ventilator management for hospitalization for pancreatitis. Commendations: 1. Chronic respiratory failure: The patient is well compensated currently. He is using our vent and circuit as he feels that heated humidification is somewhat more comfortable for him. His oxygen saturations are acceptable. Minimal secretions. Continue routine trach care with respiratory therapy. 2. Management the patient's other medical issues per hospitalist. We will continue to follow for respiratory issues associated with his chronic vent dependence Admission and Anticipated Discharge Date Admission Date: June 10, 2022 Subjective Patient seen and examined. EMR reviewed. The patient is complaining of some pain associated with the tube feeding. He feels like he is breathing well. He is not having any pain at his trach site. No respiratory distress Review of Systems Review of Systems: Unchanged from prior Physical Exam Neck: Trach is clean dry and intact. Patient remains on the ventilator c ircuit. Results & Data Results & Data ([facility]) Vital Signs (Past 12 Hours) Vital Signs Temp Pulse Resp BP Pulse Ox O2 Del Method FiO2 06/14/22 13:00 96 H 12 98 06/14/22 13:00 104/59 L 06/14/22 12:00 94 H 12 99 30 06/14/22 12:00 37.1 C 100/55 L 06/14/22 12:00 30 06/14/22 11:20 96 H 12 98 30 06/14/22 11:00 91 H 12 06/14/22 11:00 102/60 06/14/22 10:00 93 H 10 L 99 06/14/22 10:00 103/58 L 06/14/22 09:00 97 H 11 L 06/14/22 09:00 96/54 L 06/14/22 08:00 103 H 10 L 100 06/14/22 08:00 104/60 06/14/22 07:00 106 H 10 L 06/14/22 07:00 104/57 L 06/14/22 08:00 Mechanical Vent 30 06/14/22 08:00 30 06/14/22 06:55 101 H 12 100 30 06/14/22 06:00 98 H 10 L 06/14/22 06:00 96/55 L 06/14/22 05:47 37.6 C H 06/14/22 05:00 102 H 12 06/14/22 05:00 111/54 L 06/14/22 04:00 103 H 12 99 06/14/22 04:00 104/59 L 06/14/22 03:00 104 H 12 06/14/22 03:00 102/58 L 06/14/22 03:00 30 Laboratory Results 06/14/22 09:14 06/14/22 07:04 Diagnostic Findings No new imaging PG Care Time/CCT Total # of Minutes Spent Total Time Spent with Patient: Total time spent is greater than 50% in coordination of care (as documented) at patient's floor/unit and/or counseling patient: Coding Level of Care Code 20098 Subseq Hosp Care Lvl 1 Diagnoses Ventilator dependence Z99.11 Chronic respiratory failure J96.10 ALS (amyotrophic lateral sclerosis) G12.21
[2022-06-14] MEDS ORDERED: MoRPHine SULFATE 4 MG/ML 1 ML CARP\\VIAL IV PRN ×2 (16:10→16:11)
--- NOTE | 2022-06-14 17:18 | Hospitalist Progress Note ---
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 coli x 2 strains grew on pseudocyst aspiration. Patient discharged on a course of Cipro to complete [address] ABD/pelvis shows significant improvement in pancreatic pseudocyst however development of slight biliary ductal dilatation Lipase 2165 Sepsis POA secondary to acute pancreatitis Hold tube feeds Continue IVF and electrolyte replacement Blood cultures negative to date IV Zosyn transition to meropenem Restarted on tube feeds Continue Protonix Appreciate GI, Newspaper Press Operator Apprentice help Monitor electrolytes Prior hospitalist discussed with Dr. Reece and the images are reviewed by IR specialist in [place] and suggested that no intervention is needed currently. Patient may need to complete 2-week course of IV antibiotics Titrate down IV fluids as able Consulted ID help with IV antibiotics Tolerating tube feeds Sudyxegrm-[id number]-[id number] feeding PEG tube dependent Appreciate GI input and recommendation Restarted tube feeds (2) Gastritis: Plan: on IV PPI BID no obvious signs of GI bleeding monitor (3) Hypokalemia: Plan: Hypokalemia Hypomagnesemia Replete electrolytes as needed (4) ALS (amyotrophic lateral sclerosis): Plan: Bedbound with quadriplegia and also has tracheostomy on vent Chronic respiratory failure Continue vent support (5) Chronic respiratory failure: Plan: Trach/Vent dependent Riluzole on hold due to being possible culprit for pancreatitis [facility] (6) Left ventricular systolic dysfunction: Plan: Prior history of mildly reduced EF Echo 05/2022 EF 55%, no significant valvular disease No signs and or symptoms of fluid overload Monitor volume status (7) DVT prophylaxis: Plan: SQ heparin Plan Discussed with the patient and the family members Admission and Anticipated Discharge Date Admission Date: June 10, 2022 Subjective Patient is seen and examined at bedside Patient nonverbal at baseline Communicates to have abdominal pain which is better States having abdominal pain associated with some bloating Tolerating tube feeds Offers no other complaints Family at bedside Denies any chest pain, shortness of breath Review of Systems Review of Systems: All systems reviewed & are unremarkable except as noted in Subjective Physical Exam Physical Exam: Physical Exam: Vitals signs as noted above General Appearance:Moderately built and nourished,Chronic ill appearing Head: normocephalic, Atraumatic Eyes: normal inspection, EOMI Neck: supple, Trachea midline,+Trach, Vent Respiratory/Chest: Decreased breath sounds Cardiovascular: S1, S2, No murmur Abdomen/GI:Soft, + tender, Bowel sounds present Extremities/Musculoskeletal:Atrophy, Trace edema Neurologic/Psych:AAO, Quadriplegic, ALS Skin: normal color, warm Results & Data Results & Data ([facility]) Vital Signs (Past 12 Hours) Vital Signs Temp Pulse Resp BP Pulse Ox O2 Del Method FiO2 06/14/22 17:00 96 H 12 06/14/22 17:00 110/62 06/14/22 16:00 37.4 C 96 H 12 06/14/22 16:00 98/58 L 06/14/22 15:00 101 H 12 06/14/22 15:00 99/55 L 06/14/22 14:00 96 H 12 06/14/22 14:00 113/61 06/14/22 16:00 30 06/14/22 13:00 96 H 12 98 06/14/22 13:00 104/59 L 06/14/22 12:00 94 H 12 99 30 06/14/22 12:00 37.1 C 100/55 L 06/14/22 12:00 30 06/14/22 11:20 96 H 12 98 30 06/14/22 11:00 91 H 12 06/14/22 11:00 102/60 06/14/22 10:00 93 H 10 L 99 06/14/22 10:00 103/58 L 06/14/22 09:00 97 H 11 L 06/14/22 09:00 96/54 L 06/14/22 08:00 103 H 10 L 100 06/14/22 08:00 104/60 06/14/22 07:00 106 H 10 L 06/14/22 07:00 104/57 L 06/14/22 08:00 Mechanical Vent 30 06/14/22 08:00 30 06/14/22 06:55 101 H 12 100 30 06/14/22 06:00 98 H 10 L 06/14/22 06:00 96/55 L 06/14/22 05:47 37.6 C H Laboratory Results Short CBC 06/14/22 06/14/22 Range/Units 07:04 09:14 WBC Cancelled 14.73 H Hgb Cancelled 7.9 L Hct Cancelled 25.3 L Plt Count Cancelled 390 BMP 06/14/22 07:04 Sodium 140 Potassium 3.3 L Chloride 107 Carbon Dioxide 19 L BUN 10 Creatinine < 0.20 L Glucose 82 Calcium 7.8 L Urine 06/14/22 Range/Units 08:10 Urine Color Yellow Urine Appearance Clear (Clear) Urine pH 5.5 (4.5-7.5) Ur Specific [place] 1.019 (1.000-1.030) Urine Protein 1+ H (Negative) Urine Glucose (UA) Negative (Negative)
[2022-06-15] MEDS: MoRPHine SULFATE 4 MG/ML 1 ML CARP\\VIAL IV PRN ×6 (00:04→20:08)
[2022-06-15] MEDS: LACTATED RINGER'S 1,000 ML IV SCH ×3 (00:25→23:59)
[2022-06-15] MEDS: TUBE FEEDING WATER FLUSH JT SCH ×8 (00:42→23:59)
[2022-06-15] MEDS: MEROPENEM 500 MG in SYRINGE 0 ML IV SCH ×4 (02:06→20:08)
[2022-06-15] MEDS: HEPARIN SOD 5,000 UNIT/0.5 ML VIAL SQ SCH ×3 (06:31→20:07)
[2022-06-15 07:30] LABS: Hematocrit (blood only) 22.6 % (40.1-51.0); Hemoglobin 7.1 g/dl (14.0-18.0); Mean Corpuscular Hemoglobin 28.2 pg (25.0-34.0); Mean Corpuscular Hgb Conc 31.4 g/dL (32.0-36.0); Mean Corpuscular Volume 89.7 fL (80.0-100.0); Mean Platelet Volume 9.7 fL (9.4-12.4); Nucleated RBC # (auto) 0.02 K/uL (0-0); Nucleated RBC % (auto) 0.2 %; Platelet Count 406 K/uL (130-400); RDW Coefficient of Variation 19.5 % (11.5-14.5); RDW Standard Deviation 64.9 fL (36.4-46.3); Red Blood Count 2.52 M/uL (4.63-6.08)
[2022-06-15 07:53] LABS: Anion Gap 11 (3-11); Blood Urea Nitrogen 5 mg/dl (6-23); Calcium 7.8 mg/dl (8.5-10.1); Carbon Dioxide 22 mmol/L (21-32); Chloride 107 mmol/L (98-107); Creatinine Clr Calc Pharmacy 637.5 ml/min; Est GFR (African American) > 150.0 ml/min; Est GFR (Non-African American) > 150.0 ml/min; Glucose 81 mg/dl (70-99(Fasting)); Magnesium 1.5 mg/dl (1.7-2.4); Potassium 3.5 mmol/L (3.5-5.1); Sodium 140 mmol/L (136-145)
[2022-06-15] MEDS: MIDODRINE HCL 2.5 MG TAB PO SCH ×3 (08:29→20:11)
[2022-06-15] MEDS: MULTI VIT W/MINERALS LIQUID 15 ML UDP JT SCH (08:30)
[2022-06-15] MEDS: LANSOPRAZOLE 15 MG SOLTAB PO SCH (08:30)
[2022-06-15] MEDS ORDERED: METHYLNALTREXONE BROMIDE 12 MG/0.6 ML VIAL SQ SCH (09:00)
--- NOTE | 2022-06-15 09:07 | Pulmonology Progress Note ---
Date of Service June 15, 2022 Assessment & Plan (1) Ventilator dependence: (2) Chronic respiratory failure: (3) ALS (amyotrophic lateral sclerosis): Plan Impression: 36-year-old male with chronic respiratory failure and ventilator dependence in the setting of ALS requiring ventilator management for hospitalization for pancreatitis. Commendations: 1. Chronic respiratory failure: The patient is well compensated currently. He is using our vent and circuit as he feels that heated humidification is somewhat more comfortable for him. His oxygen saturations are acceptable. Minimal secretions. Continue routine trach care with respiratory therapy. 2. Constipation: We will add a dose of Relistor as well as senna. Additional recommendations per primary admitting service. Management the patient's other medical issues per hospitalist. We will continue to follow for respiratory issues associated with his chronic vent dependence Admission and Anticipated Discharge Date Admission Date: June 10, 2022 Subjective Patient seen and examined. He reports being comfortable on his current vent settings. No issues overnight. He continues to have pain but did not receive morphine overnight. He reports feeling constipated Review of Systems Review of Systems: Per hospitalist note Physical Exam Constitutional: WD/WN, vitals as above Respiratory: normal respiratory effort; no respiratory distress Auscultation: + diminished lung sounds (Bilateral bases) Cardiovascular: Rate/Rhythm: regular rate and regular rhythm Vessels: normal peripheral pulses Extremities: + edema (Trace edema BLE) Skin: no rashes, warm and dry Results & Data Results & Data ([facility]) Vital Signs (Past 12 Hours) Vital Signs Temp Pulse Resp BP Pulse Ox O2 Del Method FiO2 06/15/22 07:25 90 12 100 30 06/15/22 06:00 95 H 12 100 06/15/22 06:00 108/65 06/15/22 05:00 90 12 100 06/15/22 05:00 106/65 06/15/22 04:00 95 H 12 100 06/15/22 04:00 111/64 06/15/22 03:00 92 H 12 100 06/15/22 03:00 113/72 06/15/22 02:00 104 H 12 99 06/15/22 02:00 119/74 06/15/22 01:00 89 10 L 06/15/22 01:00 101/60 06/15/22 00:00 96 H 11 L 100 06/15/22 00:00 107/65 06/15/22 06:28 37.4 C 06/15/22 05:00 36.7 C 06/15/22 04:00 30 06/15/22 03:07 96 H 12 100 30 06/15/22 00:00 30 06/15/22 00:00 96 H 06/14/22 23:00 97 H 12 06/14/22 23:00 98/55 L 06/14/22 22:00 95 H 12 06/14/22 22:00 103/59 L 06/14/22 21:17 107/62 06/14/22 21:17 100 H 12 98 06/14/22 23:18 Mechanical Vent 06/14/22 23:01 96 H 12 100 30 Laboratory Results 06/15/22 07:03 06/15/22 07:03 PG Care Time/CCT Total # of Minutes Spent Total Time Spent with Patient: Total time spent is greater than 50% in coordination of care (as documented) at patient's floor/unit and/or counseling patient: Coding Level of Care Code 93099 Subseq Hosp Care Lvl 2 Diagnoses Ventilator dependence Z99.11 Chronic respiratory failure J96.10 ALS (amyotrophic lateral sclerosis) G12.21
[2022-06-15] MEDS: SENNOSIDES 8.8 MG/5 ML UDC PO SCH (10:22)
[2022-06-15] MEDS: MAGNESIUM SULFATE / D5W 1 GM/100 ML BAG IV SCH ×2 (10:23→11:59)
--- NOTE | 2022-06-15 11:45 | CT Scan Report ---
CT abd pelvis IV con only CLINICAL HISTORY: worsening abd pain COMPARISON STUDY: 06/10/2022 CT DOSE: 1323.19 mGy.cm TECHNIQUE: Standard CT of the Abdomen and Pelvis was performed with IV contrast. A dose lowering kit hnique was utilized adhering to the principles of ALARA. Contrast Volume: Optiray 320, 95 ml. The patient did not receive oral contrast. FINDINGS: Lung base: Compared to the previous examination, there is worsening of bilateral pleural effusions wh ich are now moderate size. Bibasilar atelectasis/collapse is present. Abdominal cavity: Additionally, there has been interval development of moderate abdominal and pelvic ascites. Liver: There is homogeneous attenuation of the liver parenchyma. There is no evidence for enhancing m ass lesion. There is again evidence for 2 sharply defined cyst of the left lobe of the liver. Spleen: There is homogeneous attenuation of the splenic parenchyma. There is no enhancing mass lesion . Pancreas: Compared to previous examination, diffuse swelling of the pancreas is again seen with numer ous cysts present involving the head, body and tail of the pancreas. There appearance is not signific antly changed from the previous study. However, increased edematous changes are seen involving the me senteric fat surrounding the pancreas. Gall Bladder: The gallbladder is partially contracted with no evidence for intraluminal calculi, wall thickening or pericholecystic edema. Adrenal glands: The adrenal glands are normal in size and attenuation. There is no evidence for enhan cing mass lesion. Kidneys: There is homogeneous attenuation of the renal parenchyma bilaterally. There is again evidenc e for an approximately 4 mm nonobstructing left renal calculus. There is no evidence for right renal calculus or hydronephrosis bilaterally. There is no evidence for enhancing mass. Bowel: Gastrojejunostomy tube is again noted. The bowel loops are normally placed within the abdomen and pelvis without evidence for dilatation or obstruction. However, the colon is now fluid-filled whi ch can be seen with diarrhea. There are no inflammatory changes present. There is no evidence for brooke e air. There is a normal appendix in the right lower quadrant. Bladder: The bladder is distended with no evidence for focal mass, calculus or diverticulum. : There is no evidence for pelvic mass or adenopathy. There is no evidence for pelvic ascites. Vasculature: There is no evidence for aneurysmal dilatation of the abdominal aorta. Osseous structures: There is no acute osseous pathology. IMPRESSION: 1. Compared to previous study, there is again marked edematous changes of the pancreas with extensive cyst formation again seen. The cysts are essentially unchanged. 2. However, there are increased edematous changes of the surrounding peripancreatic fat characteristi c of worsening pancreatitis. 3. There has been interval development of moderate abdominal and pelvic ascites. 4. There has been interval worsening of bilateral pleural effusions which are now moderate in size wi th bibasilar atelectasis/collapse present bilaterally, left greater than right. 5. Diffuse fluid throughout the colon which can be seen with diarrhea. 6. Additional nonacute findings are delineated above. ACT 112: Negative or not required by law. Electronically signed by: Mannie Roth M.D. 06/15/2022 11:44 AM
[2022-06-15] MEDS: FAMOTIDINE 10 MG TABLET PO SCH ×2 (13:46→20:10)
--- NOTE | 2022-06-15 13:55 | Hospitalist Progress Note ---
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 coli x 2 strains grew on pseudocyst aspiration. Patient discharged on a course of Cipro to complete [address] ABD/pelvis shows significant improvement in pancreatic pseudocyst however development of slight biliary ductal dilatation Lipase 2165 Sepsis POA secondary to acute pancreatitis Hold tube feeds Continue IVF and electrolyte replacement Blood cultures negative to date IV Zosyn transition to meropenem Restarted on tube feeds Continue Protonix Appreciate GI, [employer] Plant[employer] Worker help Monitor electrolytes Appreciate ID Input: Recommends to continue IV Meropenem Patient may need to complete 2-week course of IV antibiotics Gentle IV fluids as patient developing volume overload Hold tube feeds today CT ABD today showed findings suggestive of worsening pancreatitis, interval development of moderate abdominal and pelvic ascites, worsening bilateral pleural effusion Relistor, Senna added to help with constipation Consulted Pain [facility] worsening abdominal CT/symptoms: She plans to discuss with IR and GI at [facility] for further recommendations. Srbqqysgp-[id number] feeding PEG tube dependent Appreciate GI input and recommendation Hold tube feeds today (2) Gastritis: Plan: on IV PPI BID>>>PO PPI no obvious signs of GI bleeding monitor Added Pepcid (3) Hypokalemia: Plan: Hypokalemia Hypomagnesemia Replete electrolytes as needed (4) ALS (amyotrophic lateral sclerosis): Plan: Bedbound with quadriplegia and also has tracheostomy on vent Chronic respiratory failure Continue vent support (5) Chronic respiratory failure: Plan: Trach/Vent dependent Riluzole on hold due to being possible culprit for pancreatitis [facility] (6) Left ventricular systolic dysfunction: Plan: Prior history of mildly reduced EF Echo 05/2022 EF 55%, no significant valvular disease No signs and or symptoms of fluid overload Monitor volume status (7) DVT prophylaxis: Plan: SQ heparin Admission and Anticipated Discharge Date Admission Date: June 10, 2022 Subjective Patient is seen and examined at bedside Patient nonverbal at baseline Reports persistent abdominal pain and has constipation Tube feeds held today Also reports acid reflux issues Family at bedside Denies any chest pain, shortness of breath CT abd showed worsening pancreatitis Review of Systems Review of Systems: All systems reviewed & are unremarkable except as noted in Subjective Physical Exam Physical Exam: Physical Exam: Vitals signs as noted above General Appearance:Moderately built and nourished,Chronic ill appearing Head: normocephalic, Atraumatic Eyes: normal inspection, EOMI Neck: supple, Trachea midline,+Trach, Vent Respiratory/Chest: Decreased breath sounds Cardiovascular: S1, S2, No murmur Abdomen/GI:Soft, + tender, Bowel sounds present Extremities/Musculoskeletal:Atrophy, Trace edema Neurologic/Psych:AAO, Quadriplegic, ALS Skin: normal color, warm Results & Data Results & Data ([facility]) Vital Signs (Past 12 Hours) Vital Signs Temp Pulse Resp BP Pulse Ox O2 Del Method FiO2 06/15/22 12:00 88 12 100 06/15/22 12:00 108/71 06/15/22 11:00 73 12 100 06/15/22 11:00 118/72 06/15/22 12:00 37.0 C 06/15/22 12:00 30 06/15/22 10:57 82 12 100 30 06/15/22 10:00 83 12 100 06/15/22 10:00 109/71 06/15/22 09:00 90 12 100 06/15/22 09:00 114/74 06/15/22 08:00 84 12 100 06/15/22 08:00 110/72 06/15/22 07:00 87 12 100 06/15/22 07:00 102/65 06/15/22 08:00 37.3 C 06/15/22 08:00 30 06/15/22 08:00 Mechanical Vent 30 06/15/22 07:25 90 12 100 30 06/15/22 06:00 95 H 12 100 06/15/22 06:00 108/65 06/15/22 05:00 90 12 100 06/15/22 05:00 106/65 06/15/22 04:00 95 H 12 100 06/15/22 04:00 111/64 06/15/22 03:00 92 H 12 100 06/15/22 03:00 113/72 06/15/22 02:00 104 H 12 99 06/15/22 02:00 119/74 06/15/22 06:28 37.4 C 06/15/22 05:00 36.7 C 06/15/22 04:00 30 06/15/22 03:07 96 H 12 100 30 Laboratory Results Short CBC 06/15/22 Range/Units 07:03 WBC 11.10 H (4.8-10.8) K/ul Hgb 7.1 L (14.0-18.0) g/dl Hct 22.6 L (40.1-51.0) % Plt Count 406 H (130-400) K/uL BMP 06/15/22 07:03 Sodium 140 Potassium 3.5 Chloride 107 Carbon Dioxide 22 BUN 5 L Creatinine < 0.20 L Glucose 81 Calcium 7.8 L
[2022-06-15 14:57] LABS: Hematocrit (blood only) 23.9 % (40.1-51.0); Hemoglobin 7.4 g/dl (14.0-18.0)
[2022-06-16] MEDS ORDERED: MoRPHine SULFATE 2 MG/ML CARP ONE (00:01)
[2022-06-16] MEDS: MoRPHine SULFATE 4 MG/ML 1 ML CARP\\VIAL IV PRN ×3 (00:09→14:06)
[2022-06-16] MEDS: MEROPENEM 500 MG in SYRINGE 0 ML IV SCH ×3 (02:07→14:05)
[2022-06-16] MEDS: TUBE FEEDING WATER FLUSH JT SCH ×4 (05:32→14:20)
[2022-06-16] MEDS: HEPARIN SOD 5,000 UNIT/0.5 ML VIAL SQ SCH ×2 (05:54→14:08)
[2022-06-16 06:20] LABS: Hematocrit (blood only) 21.3 % (40.1-51.0); Hemoglobin 6.6 g/dl (14.0-18.0); Mean Corpuscular Hemoglobin 27.7 pg (25.0-34.0); Mean Corpuscular Volume 89.5 fL (80.0-100.0); Mean Platelet Volume 8.9 fL (9.4-12.4); Platelet Count 393 K/uL (130-400); RDW Coefficient of Variation 19.5 % (11.5-14.5); RDW Standard Deviation 63.7 fL (36.4-46.3); Red Blood Count 2.38 M/uL (4.63-6.08); White Blood Count 10.63 K/ul (4.8-10.8)
[2022-06-16] MEDS ORDERED: FUROSEMIDE INJ 20 MG/2 ML VIAL IV ONE ×2 (06:27→16:00)
--- NOTE | 2022-06-16 06:28 | Communication Note ---
Date of Service: June 16, 2022 Made aware by RN of hemoglobin drop to 6.6 (from 7.4 yesterday) No overt bleed as per RN. Patient with increased scrotal swelling as per RN Ap Progressive anemia Likely dilutional secondary to third spacing (Abdominopelvic ascites, pleural effusions from CT imaging yesterday) Recheck H&H at 10 AM with type and screen Transfuse PRBC if hemoglobin less than [address] of LRS IVF, Lasix 1 dose now given third spacing. Will relay to AM provider.
[2022-06-16] MEDS ORDERED: ALBUMIN 25% 100 mL 25 GM/100 ML VIAL IV ONE (06:30)
[2022-06-16 07:00] LABS: Anion Gap 12 (3-11); Blood Urea Nitrogen 4 mg/dl (6-23); Calcium 7.6 mg/dl (8.5-10.1); Carbon Dioxide 21 mmol/L (21-32); Chloride 106 mmol/L (98-107); Creatinine Clr Calc Pharmacy 628.4 ml/min; Est GFR (African American) > 150.0 ml/min; Est GFR (Non-African American) > 150.0 ml/min; Glucose 66 mg/dl (70-99(Fasting)); Magnesium 1.5 mg/dl (1.7-2.4); Potassium 3.2 mmol/L (3.5-5.1); Sodium 139 mmol/L (136-145)
[2022-06-16] MEDS: POTASSIUM CHLORIDE / WTR 10 MEQ/100 ML PLCT IV SCH ×4 (07:35→14:20)
--- NOTE | 2022-06-16 08:15 | Pulmonology Progress Note ---
Date of Service June 16, 2022 Assessment & Plan (1) Ventilator dependence: (2) Chronic respiratory failure: (3) ALS (amyotrophic lateral sclerosis): Plan Impression: 36-year-old male with chronic respiratory failure and ventilator dependence in the setting of ALS requiring ventilator management for hospitalization for pancreatitis. Commendations: 1. Chronic respiratory failure: Patient is doing well on his current vent settings. He continues to use our unit as he feels more comfortable than his home unit with a heated communication. Management the patient's other medical issues per hospitalist. We will continue to follow for respiratory issues associated with his chronic vent dependence Admission and Anticipated Discharge Date Admission Date: June 10, 2022 Subjective Seen and examined. Discussed with bedside nursing. Patient states his breathing is fine. No pain at the trach site. He is doing well clinically Review of Systems Review of Systems: Unchanged from prior Physical Exam Constitutional: WD/WN, vitals as above Neck: Trach clean dry and intact Respiratory: normal respiratory effort; no respiratory distress Auscultation: + diminished lung sounds (Bilateral bases) Results & Data [facility] ([facility]) Vital Signs (Past 12 Hours) Vital Signs Temp Pulse Resp BP Pulse Ox O2 Del Method FiO2 06/16/22 07:08 88 12 100 30 06/16/22 06:40 37.5 C 06/16/22 05:00 77 12 100 06/16/22 05:00 98/61 L 06/16/22 04:00 70 12 100 06/16/22 04:00 105/61 06/16/22 03:00 75 12 100 06/16/22 03:00 105/64 06/16/22 02:00 78 12 100 06/16/22 02:00 102/66 06/16/22 01:00 78 12 100 06/16/22 01:00 105/67 06/16/22 00:00 76 12 100 06/16/22 00:00 113/72 06/16/22 04:00 30 06/16/22 03:14 79 12 100 30 06/16/22 03:10 37.4 C 06/16/22 00:00 80 06/16/22 00:00 30 06/15/22 23:00 80 14 100 06/15/22 23:00 110/74 06/15/22 22:00 81 12 100 06/15/22 22:00 113/75 06/15/22 22:25 82 12 100 30 06/15/22 21:00 83 12 100 06/15/22 21:00 114/73 06/15/22 21:55 Mechanical Vent 06/15/22 21:47 37.4 C PG Care Time/CCT Total # of Minutes Spent Total Time Spent with Patient: Total time spent is greater than 50% in coordination of care (as documented) at patient's floor/unit and/or counseling patient: Coding Level of Care Code 75630 Subseq Hosp Care Lvl 1 Diagnoses Ventilator dependence Z99.11 Chronic respiratory failure J96.10 ALS (amyotrophic lateral sclerosis) G12.21
[2022-06-16] MEDS: MAGNESIUM SULFATE / D5W 1 GM/100 ML BAG IV SCH ×2 (09:35→11:47)
[2022-06-16] MEDS: MIDODRINE HCL 2.5 MG TAB PO SCH ×2 (09:40→14:21)
[2022-06-16] MEDS: FAMOTIDINE 10 MG TABLET PO SCH (09:40)
[2022-06-16] MEDS: MULTI VIT W/MINERALS LIQUID 15 ML UDP JT SCH (09:40)
[2022-06-16] MEDS: LANSOPRAZOLE 15 MG SOLTAB PO SCH (09:40)
[2022-06-16] MEDS: SENNOSIDES 8.8 MG/5 ML UDC PO SCH (09:41)
[2022-06-16 10:48] LABS: Hematocrit (blood only) 21.8 % (40.1-51.0); Hemoglobin 6.8 g/dl (14.0-18.0)
[2022-06-16] MEDS ORDERED: SODIUM CHLORIDE 0.9% 250 ML IV PRN (11:41)
[2022-06-16] MEDS ORDERED: ALBUMIN 25% 100 mL 25 GM/100 ML VIAL IV SCH (12:00)
--- NOTE | 2022-06-16 14:56 | Hospitalist Progress Note ---
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 coli x 2 strains grew on pseudocyst aspiration. Patient discharged on a course of Cipro to complete [address] ABD/pelvis shows significant improvement in pancreatic pseudocyst however development of slight biliary ductal dilatation Lipase 2165 Sepsis POA secondary to acute pancreatitis Hold tube feeds Continue IVF and electrolyte replacement Blood cultures negative to date IV Zosyn transition to meropenem Restarted on tube feeds Continue Protonix Appreciate GI, Production Planner help Monitor electrolytes Appreciate ID Input: Recommends to continue IV Meropenem Patient may need to complete 2-week course of IV antibiotics Gentle IV fluids as patient developing volume overload Hold tube feeds today due to worsening abd pain CT ABD today showed findings suggestive of worsening pancreatitis, interval development of moderate abdominal and pelvic ascites, worsening bilateral pleural effusion Relistor, Senna added to help with constipation Consulted Pain management [facility] Production Planner [facility] regarding worsening abdominal CT/symptoms: She plans to discuss with IR and GI at [facility] for further recommendations: on 06/15/[address] Production Planner [address]Joshua Luna at [facility] on 06/16/22 who kindly accpeted the patient for further care. Anemia No clear source of bleeding ? Dilational secondary to IV fluids, volume overload Will transfuse 1 unit PRBC Monitor Volume status closely Volume overload status currently Hypoalbuminemia contributing as well Received IV Albumin overnight IV fluids held Will give lasix after blood transfusion Monitor Volume status closely Vtqlqrspi-IQ-[id number] feeding PEG tube dependent Appreciate GI input and recommendation Hold tube feeds today (2) Gastritis: Plan: Continue PPI No obvious signs of GI bleeding monitor Added Pepcid to help with persistent bloating (3) Hypokalemia: Plan: Hypokalemia Hypomagnesemia Replete electrolytes as needed (4) ALS (amyotrophic lateral sclerosis): Plan: Bedbound with quadriplegia and also has tracheostomy on vent Chronic respiratory failure Continue vent support (5) Chronic respiratory failure: Plan: Trach/Vent dependent Riluzole on hold due to being possible culprit for pancreatitis [facility] (6) Left ventricular systolic dysfunction: Plan: Prior history of mildly reduced EF Echo 05/2022 EF 55%, no significant valvular disease No signs and or symptoms of fluid overload Monitor volume status (7) DVT prophylaxis: Plan: SQ heparin--hold if persistent drop in Hb Code Status Full Code Disposition Randy Izaguirre Admission and Anticipated Discharge Date Admission Date: June 10, 2022 Subjective Patient is seen and examined at bedside Patient nonverbal at baseline Unable to tolerate Tube feeds currently Had BM yesterday Persistent abdominal pain Hypoglycemic this morning Noted drop in Hb but no obvious source of bleeding Received IV Albumin overnight IV fluids held due to developing fluid overload Family at bedside Denies any chest pain, shortness of breath Discussed with ICU team in [place] Review of Systems Review of Systems: All systems reviewed & are unremarkable except as noted in Subjective Physical Exam Physical Exam: Physical Exam: Vitals signs as noted above General Appearance:Moderately built and nourished,Chronic ill appearing Head: normocephalic, Atraumatic Eyes: normal inspection, EOMI Neck: supple, Trachea midline,+Trach, Vent Respiratory/Chest: Decreased breath sounds Cardiovascular: S1, S2, No murmur Abdomen/GI:Soft, + tender, Bowel sounds present Extremities/Musculoskeletal:Atrophy, Trace edema Neurologic/Psych:AAO, Quadriplegic, ALS Skin: normal color, warm Results & Data Results & Data ([facility]) Vital Signs (Past 12 Hours) Vital Signs Temp Pulse Resp BP Pulse Ox FiO2 06/16/22 14:02 37.2 C 89 19 110/69 100 06/16/22 13:59 37.1 C 84 14 111/71 100 06/16/22 11:18 79 12 100 30 06/16/22 08:00 30 06/16/22 08:00 75 06/16/22 07:08 88 12 100 30 06/16/22 06:40 37.5 C 06/16/22 05:00 77 12 100 06/16/22 05:00 98/61 L 06/16/22 04:00 70 12 100 06/16/22 04:00 105/61 06/16/22 03:00 75 12 100 06/16/22 03:00 105/64 06/16/22 04:00 30 06/16/22 03:14 79 12 100 30 06/16/22 03:10 37.4 C Laboratory Results Short CBC 06/15/22 06/16/22 06/16/22 Range/Units 14:39 05:53 10:03 WBC 10.63 (4.8-10.8) K/ul Hgb 7.4 L 6.6 L* 6.8 L* (14.0-18.0) g/dl Hct 23.9 L 21.3 L 21.8 L (40.1-51.0) % Plt Count 393 (130-400) K/uL [facility] 06/16/22 05:53 Sodium 139 Potassium 3.2 L Chloride 106 Carbon Dioxide 21 BUN 4 L Creatinine < 0.20 L Glucose 66 L Calcium 7.6 L
--- NOTE | 2022-06-16 15:06 | Discharge Summary ---
Date of Service June 16, 2022 Admission HPI Per Admitting Provider 36-year-old male with PMH ALS trach, ventilator, PEG tube dependent, chronic pancreatitis, and other problems listed below who presents the ED for evaluation of abdominal pain. History is obtained from patient's at the bedside. Patient recently admitted to [facility] 05/08 through 05/28 for necrotizing pancreatitis and pancreatic pseudocyst. Patient underwent IR pseudocyst aspiration and E. coli x 2 strains grew on pseudocyst aspiration. Patient discharged on a course of Cipro to complete 4 weeks of therapy. reports that patient has been refusing Cipro for the past few days. Patient also underwent EGD without evidence of GI bleed however underwent GDA embolization due to evidence of early compromise of the GDA on abdominal CT. Patient's reports that over the past couple days, patient has not been acting himself. She notes increased lethargy. No fever and other vitals have been stable. Patient started reporting lower abdominal pain yesterday. Pain progressively got worse and patient presented to the ED today for further evaluation. In the ED, patient is hemodynamically stable. CT ABD/pelvis shows significant improvement in pancreatic pseudocyst however now shows slight biliary ductal dilatation. She is RT bili 1.1, AST 35, ALT 64, alk phos 417, lipase 2165. WBC 27K. K+ 2.6. Patient was given IV morphine, IV Zofran, IV Zosyn, potassium replacement, IVF. Admission Exam Per Admitting Provider Physical Exam Constitutional: WD/WN, vitals as above B Eyes: PERRL, conjunctivae normal, anicteric sclerae ENMT: external ear and nose normal, oropharynx normal Neck: Tracheostomy present Respiratory: normal respiratory effort; no respiratory distress Auscultation: + diminished lung sounds (Bilateral bases) Cardiovascular: Rate/Rhythm: regular rate and regular rhythm Vessels: normal peripheral pulses Extremities: + edema (Trace edema BLE) Gastrointestinal (Abdomen): Inspection/Auscultation: normal bowel sounds Percussion/Palpation: + abdomen tender (Epigastric, LLQ --patient widens eyes indicating pain) and abdomen soft; no hepatosplenomegaly PEG tube in place, connected to drainage bag that is draining green-colored drainage Musculoskeletal: Total paralysis due to ALS Skin: no rashes, warm and dry Neurologic: Total paralysis due to ALS, uses a number of blinks to indicate yes and no answers Psychiatric: Orientation: alert and oriented x 3 Principal Diagnosis Infected pancreatic pseudocyst Acute Pancreatitis H/O necrotizing pancreatitis Volume overload Anemia Ventilator dependent ALS Discharge Data Allergies Allergy/AdvReac Type Severity Reaction Status Date / Time No Known Allergies Allergy Verified 05/07/22 19:50 Consultations 06/10/22 16:53 ED Decision to Admit Stat 06/10/22 22:13 Consult Gastroenterology Routine Consult Breakfast Bar Attendant Routine 06/12/22 07:56 Consult Breakfast Bar Attendant Routine 06/13/22 17:32 Consult Infectious Diseases Routine 06/14/22 16:12 Consult Pain Management Routine 06/16/22 14:40 Burn CD for patient Stat Ordered Studies 06/10/22 14:22 CT Abd and Pelvis [CT abd pelvis IV con only] Stat 06/11/22 13:25 US abdomen limited Routine 06/15/22 00:30 CT abd pelvis IV con only Urgent Hospital Course (1) Pancreatitis: Infected pancreatic pseudocyst H/O necrotizing pancreatitis and pancreatic pseudocyst Patient underwent IR pseudocyst aspiration and E. coli x 2 strains grew on pseudocyst aspiration. Patient discharged on a course of Cipro to complete [address] ABD/pelvis shows significant improvement in pancreatic pseudocyst however development of slight biliary ductal dilatation Lipase 2165 Sepsis POA secondary to acute pancreatitis Hold tube feeds Continue IVF and electrolyte replacement Blood cultures negative to date IV Zosyn transition to meropenem Restarted on tube feeds Continue Protonix Appreciate GI, Breakfast Bar Attendant help Monitor electrolytes Appreciate ID Input: Recommends to continue IV Meropenem Patient may need to complete 2-week course of IV antibiotics Gentle IV fluids as patient developing volume overload Hold tube feeds today due to worsening abd pain CT ABD today showed findings suggestive of worsening pancreatitis, interval development of moderate abdominal and pelvic ascites, worsening bilateral pleural effusion Relistor, Senna added to help with constipation Consulted Pain management Discussed with [facility] Breakfast Bar Attendant Ivette Holt-Brielle regarding worsening abdominal CT/symptoms: She plans to discuss with IR and GI at [facility] for further recommendations: on 06/15/22 [address] Breakfast Bar Attendant Dr.Joshua Luna at [facility] on 06/16/22 who kindly accpeted the patient for further care. Anemia No clear source of bleeding ? Dilational secondary to IV fluids, volume overload Will transfuse 1 unit PRBC Monitor Volume status closely Volume overload status currently Hypoalbuminemia contributing as well Received IV Albumin overnight IV fluids held Will give lasix after blood transfusion Monitor Volume status closely Atyhqfeog-JX-wyqg feeding PEG tube dependent Appreciate GI input and recommendation Hold tube feeds today (2) Gastritis: Continue PPI No obvious signs of GI bleeding monitor Added Pepcid to help with persistent bloating (3) Hypokalemia: Hypokalemia Hypomagnesemia Replete electrolytes as needed (4) ALS (amyotrophic lateral sclerosis): Bedbound with quadriplegia and also has tracheostomy on vent Chronic respiratory failure Continue vent support (5) Chronic respiratory failure: Trach/Vent dependent Riluzole on hold due to being possible culprit for pancreatitis [facility] (6) Left ventricular systolic dysfunction: Prior history of mildly reduced EF Echo 05/2022 EF 55%, no significant valvular disease No signs and or symptoms of fluid overload Monitor volume status (7) DVT prophylaxis: SQ heparin--hold if persistent drop in Hb Code Status Full Code Disposition [place] Total Time Total Time Spent Total Time Spent (In Minutes): 55 minutes Discharge Plan Discharge Items Patient Disposition: Transfer Acute [facility] Reason For Visit: PANCREATITIS Discharge Diagnosis: Infected pancreatic pseudocyst Acute Pancreatitis H/O necrotizing pancreatitis Volume overload Anemia Ventilator dependent ALS Activity: Per Instructions section Exercise/Sports: Wait until after follow-up appointment Non-emergency contact: Primary Care Provider and Materials Scientist Call non-emergency contact if: you have any medication questions, your symptoms worsen, your pain is concerning for you and you have a fever Follow-up/Referrals: Karen Carr C.R.NQuyenP. [Primary Care Provider] - Dietitian Info: Tube feeds Diet: Other - See Diet Comment Addtl Attending Provider Instructions: Follow-up with Dr. James Luna, Critical care at [facility] for further management. Seek immediate medical attention if your symptoms reoccur or worsen Please take all medications as instructed on discharge list below. Please call if you have any questions or problems. You can reach a [facility] hospitalist on duty at [facility] 24 hours a day by calling [phone] --- Please refer to current medication list while inpatient at [facility]. Addtl Boiling House Hand Provider Instructions: Current Inpatient Medications Artificial Tears (Artificial Tears) 1 drops OP QID PRN PRN Reason: DRY EYE Stop: 07/14/22 08:48 Atropine Sulfate (Atropine Sulfate 1% Op Soln 5 Ml Btl) 1 drops SL QID PRN PRN Reason: INCREASED SECRETIONS Stop: 07/14/22 08:49 Dextrose (Dextrose 50% 50 Ml Syringe) 25 - 50 ml IV UD PRN; Protocol PRN Reason: Hypoglycemia Protocol Stop: 07/13/22 09:59 Last Admin: 06/13/22 08:05 Dose: 25 ml Enteral Nutritional Formula (Peptamen 1.5 Cali 1,000 Ml Bag) 1,000 ml JT UD MYNOR; Protocol Stop: 07/13/22 11:14 Last Admin: 06/13/22 12:06 Dose: 1,000 ml Famotidine (Famotidine 10 Mg Tablet) 10 mg PO BID MYNOR Stop: 07/15/22 11:14 Last Admin: 06/16/22 09:40 Dose: 10 mg Furosemide (Furosemide Inj 20 Mg/2 Ml Vial) 20 mg IV 1600 ONE Stop: 06/16/22 16:01 Glucagon (Glucagon For Inj 1 Mg Vial) 1 mg IM UD PRN; Protocol PRN Reason: Hypoglycemia Protocol Stop: 07/13/22 09:59 Glucose (Glucose 40% Gel 15 Gm Tube) 15 - 30 gm PO UD PRN; Protocol PRN Reason: Hypoglycemia Protocol Stop: 07/13/22 09:59 Glucose (Glucose 10 Tab/Tube) 4 - 8 tab PO UD PRN; Protocol PRN Reason: Hypoglycemia Protocol Stop: 07/13/22 09:59 Heparin Sodium (Porcine) (Heparin Sod 5,000 Unit/0.5 Ml Vial) 5,[address] [facility] Stop: 07/10/22 22:12 Last Admin: 06/16/22 14:08 Dose: Not Given Lactated Ringer's (Lr) 1,000 mls @ 75 mls/hr IV .[id number] [facility] Stop: 07/10/22 22:12 Last Admin: 06/15/22 23:59 Dose: 75 mls/hr Meropenem 500 mg/ Syringe 10 mls @ 2 mls/min IV Q6H [facility]; Protocol Stop: 06/26/22 13:59 Last Admin: 06/16/22 14:05 Dose: 2 mls/min Albumin Human (Albumin 25% 100 Ml) 25 gm in 100 mls @ 50 mls/hr IV Q8H [facility] Stop: 06/19/22 11:59 Last Admin: 06/16/22 13:11 Dose: 50 mls/hr Sodium Chloride (Nss) 250 mls @ 15 mls/hr IV .[id number] PRN PRN Reason: For Transfusion Stop: 06/16/22 21:41 Lansoprazole (Lansoprazole 15 Mg Soltab) [address] [facility] Stop: 07/15/22 08:59 Last Admin: 06/16/22 09:40 Dose: 15 mg Methylnaltrexone [place] (Methylnaltrexone [place] 12 Mg/0.6 Ml Vial) 12 mg SQ Q2D@0900 [facility] Stop: 07/15/22 08:59 Last Admin: 06/15/22 10:22 Dose: 12 mg Midodrine (Midodrine Hcl 2.5 Mg Tab) [address] [facility] Stop: 07/14/22 08:59 Last Admin: 06/16/22 14:21 Dose: 5 mg Miscellaneous (Carbohydrates For Hypoglycemia ) 15 - 30 gm PO UD PRN PRN Reason: Hypoglycemia Treatment Stop: 07/13/22 09:59 Morphine Sulfate (Morphine Sulfate 4 Mg/Ml 1 Ml Carp\Vial) 3 mg IV Q2H PRN PRN Reason: Pain (1,2,3,4,5) & Pre PT Stop: 06/24/22 22:12 Last Admin: 06/15/22 10:58 Dose: 2 mg Morphine Sulfate (Morphine Sulfate 4 Mg/Ml 1 Ml CarpVial) 6 mg IV Q3H PRN PRN Reason: Pain 6-10 Stop: 06/29/22 10:41 Last Admin: 06/16/22 14:06 Dose: 6 mg Multivitamins/Minerals (Multi Vit W/Minerals Liquid 15 Ml Udp) [address] [facility] Stop: 07/14/22 08:59 Last Admin: 06/16/22 09:40 Dose: 15 ml Sennosides (Sennosides 8.8 Mg/5 Ml Udc) 8.[address] [facility] Stop: 07/15/22 08:59 Last Admin: 06/16/22 09:41 Dose: 8.8 mg Sterile Water (Tube Feeding Water Flush) 60 ml JT Q4H MYNOR Stop: 07/13/22 11:14 Last Admin: 06/16/22 14:20 Dose: 60 ml Pending Studies at Discharge: Yes Studies:: Blood Culture Stand-Alone Forms: My [facility] Skilled Items Patient informed of condition?: Yes DNR: No Discharge Level of Care: Other Communicable Disease: No Discharge Prognosis: Stable Lines: Peripheral IV Urinary Catheter: Yes Medications and DC Order Prescriptions: New lansoprazole [Prevacid SoluTab] 15 mg Tablet,Disintegrat, Delay Rel 15 mg PO DAILY Qty: 0 0RF Continued acetaminophen [Children's Acetaminophen] 160 mg/5 mL Liquid 640 mg feeding tube Q6 PRN (Reason: Pain, Moderate) Rx Instructions: administer 20 ml into j=tube melatonin 3 mg Tablet 3 - 6 mg PO HS PRN (Reason: Sleep) tramadol 50 mg Tablet 50 mg feeding tube Q6H PRN (Reason: Pain) zinc oxide 20 % Ointment 1 applic TOPICAL TID Rx Instructions: apply to buttocks for bed sores nystatin 100,000 unit/gram Powder 1 applic TOPICAL DAILY PRN (Reason: Rash) Rx Instructions: apply to buttocks/ groin ibuprofen 100 mg/5 mL Suspension 400 mg feeding tube Q6 PRN (Reason: Pain, Moderate) Rx Instructions: administer 20 ml into j-tube atropine 1 % Drops 1 drp sublingual QID PRN (Reason: increased secretions) cholecalciferol (vitamin D3) [Vitamin D3] 25 mcg (1,000 unit) Capsule 1,000 unit feeding tube DAILY Rx Instructions: use j-tube famotidine 40 mg/5 mL (8 mg/mL) Suspension 20 mg feeding tube BID PRN (Reason: Indigestion) Rx Instructions: use j-tube guaifenesin 100 mg/5 mL Liquid 200 mg feeding tube BID PRN (Reason: Cough) Rx Instructions: administer 10 ml into j-tube midodrine 5 mg Tablet 5 mg feeding tube TID Rx Instructions: administer into j-tub morning,noon and bedtime polyethylene glycol 3350 [Miralax] 17 gram/dose Powder 17 g feeding tube DAILY PRN (Reason: Constipation) Rx Instructions: dissolve into 8 oz of water and administer into j-tube ipratropium bromide 21 mcg (0.03 %) [place],Non-Aerosol 2 spray INTRANASAL TID Rx Instructions: administer into each nostril 2-3 times a day riluzole 50 mg Tablet 50 mg feeding tube DAILY Rx Instructions: must be taken on empty stomach; no food 1 hr after or 2-3 hrs before dose on hold senna leaf extract [senna] 176 mg/5 mL Syrup 15 ml feeding tube BID PRN (Reason: Constipation) Vital 1.5 Cali 0.07 gram- 1.5 kcal/mL Liquid 1 ea feeding tube UD Rx Instructions: [facility] orders 65 ml/hr continuous at (5 cartons daily) [facility] 1 can peg tube 7 times a day lidocaine 5 % Ointment 1 applic TOPICAL BID PRN (Reason: Pain) Rx Instructions: apply to neck A,D-aloe yokk-uirzlhifrj-o.pet Ointment 1 ea TOPICAL BID PRN (Reason: scrotal area) Lubricant Eye 57.3-42.5 % Ointment 1 applic ophthalmic (eye) HS carboxymethylcellulose sodium 0.5 % Drops 1 drp OPHTHALMIC (EYE) UD PRN (Reason: Dry Eye(S)) Artificial Tears (PF) 0.1-0.3 % Dropperette 1 drp OPB QID Discontinued ciprofloxacin HCl [Cipro] 500 mg Tablet 500 mg feeding tube DAILY Rx Instructions: use j-tube./ stop tube feeds before and after Discharge Orders: Discharge Order (Routine); Ordered 06/16/22 Ordered By: Gianluca Rasheed Admission Data Admit Date/Time: 06/10/22 18:01 Attending Provider: Gianluca Rasheed Admit Provider: Les Chen Primary Care Provider: Karen Carr Other Providers: Hadley Fernandes ; [facility] ; Les Chen ; Mariela Junior ; Kamran Trammell ; Gemini Duff ; Akil Olsen I. ; Evan Gee II ; Kayla Brand ; Jad Li ; Ronni Cueva ; Bruno Marion
--- NOTE | 2022-06-17 12:14 | Pain Management Consultation ---
Date of Consultation June 17, 2022 Assessment & Plan (1) Pancreatitis: Plan Pain consult not completed as patient transferred prior to consult being able to be completed. History of Present Illness Attending Physician: Gianluca Rasheed MD Allergies Allergy/AdvReac Type Severity Reaction Status Date / Time No Known Allergies Allergy Verified 05/07/22 19:50 Home Medications Medication Instructions Recorded Confirmed Type acetaminophen 160 mg/5 mL oral 640 mg feeding tube Q6 PRN Pain, 05/07/22 06/10/22 History liquid (Children's Acetaminophen) Moderate atropine 1 % eye drops 1 drp sublingual QID PRN increased 05/07/22 06/10/22 History secretions cholecalciferol (vitamin D3) 25 1,000 unit feeding tube DAILY 05/07/22 06/10/22 History mcg (1,000 unit) capsule (Vitamin D3) ibuprofen 100 mg/5 mL oral 400 mg feeding tube Q6 PRN Pain, 05/07/22 06/10/22 History suspension Moderate melatonin 3 mg tablet 3 - 6 mg PO HS PRN Sleep 05/07/22 06/10/22 History nystatin 100,000 unit/gram topical 1 applic topical DAILY PRN Rash 05/07/22 08/06/24 History powder tramadol 50 mg tablet 50 mg feeding tube Q6H PRN Pain 05/07/22 06/10/22 History zinc oxide 20 % topical ointment 1 applic topical TID 05/07/22 06/10/22 History A,D-aloe hzji-tnfuzjealc-p.pet 1 ea topical BID PRN scrotal area 06/10/22 06/10/22 History topical ointment carboxymethylcellulose sodium 0.5 1 drp ophthalmic (eye) UD PRN Dry 06/10/22 06/10/22 History % eye drops Eye(S) dextran 70-hypromellose (PF) 0.1 1 drp OPB QID 06/10/22 06/10/22 History %-0.3 % eye drops in a dropperette (Artificial Tears (PF)) famotidine 40 mg/5 mL (8 mg/mL) 20 mg feeding tube BID PRN 06/10/22 06/10/22 History oral suspension Indigestion guaifenesin 100 mg/5 mL oral liquid 200 mg feeding tube BID PRN Cough 06/10/22 06/10/22 History ipratropium bromide 21 mcg (0.03 2 spray intranasal TID 06/10/22 06/10/22 History %) nasal spray lidocaine 5 % topical ointment 1 applic topical BID PRN Pain 06/10/22 06/10/22 History midodrine 5 mg tablet 5 mg feeding tube TID 06/10/22 06/10/22 History nut.tx impaired digestive 1 ea feeding tube UD 06/10/22 06/10/22 History fxn-fiber 0.07 gram-1.5 kcal/mL oral liquid (Vital 1.5 Cali) polyethylene glycol 3350 17 17 g feeding tube DAILY PRN 06/10/22 06/10/22 History gram/dose oral powder (Miralax) Constipation riluzole 50 mg tablet 50 mg feeding tube DAILY 06/10/22 06/10/22 History senna leaf extract 176 mg/5 mL 15 ml feeding tube BID PRN 06/10/22 06/10/22 History oral syrup (senna) Constipation white petrolatum-mineral oil 57.3 1 applic ophthalmic (eye) HS 06/10/22 06/10/22 History %-42.5 % eye ointment (Lubricant Eye) lansoprazole 15 mg delayed 15 mg PO DAILY #0 tabs 06/16/22 Rx release,disintegrating tablet (Prevacid SoluTab) Patient History Medical History ALS (amyotrophic lateral sclerosis) DX FEBRUARY 2014 Atrial fibrillation with RVR isolated hx of, no further reoccurances Cardiac murmur AN Dry eye syndrome Left ventricular systolic dysfunction Sleep apnea USES APAP DEVICE (DX WITH ALS) ALWAYS USING >WITH 3L AT HS ONLY Slow gastric motility D/T ALS Uses feeding tube SYRINGE FEEDING THRU PEG TUBE (STILL SWALLOWS PILLS ORALLY) Surgical History History of esophagogastroduodenoscopy (EGD) History of herniorrhaphy History of tooth extraction Hx of LASIK PRK S/P percutaneous endoscopic gastrostomy (PEG) tube placement Family History Mother Family history of diabetes mellitus Other No family history of adverse response to anesthesia Social History Smoking Status: Never smoker Second Hand Exposure: No; Hx Alcohol Use: No Hx Substance Use: Yes Last Used Substance: Unknown Substance Use Type Other:: Medical Marijuana SL or salve Preferred Language: Bangladeshi Communication Ability: Unable Pond Worker Required: No Beliefs That Will Affect Care: None marital status: Current Living Situation: Spouse and Family Current Living Situation Comment: AND 3 SONS How many Children do You have: 3 Feels Safe at Home: Yes Assistive Devices: Hospital Bed, Mechanical Lift and Scooter/Electric Scooter
== END 2022-06-16 17:28 | disposition short-term general hospital (02) | DRG 870 ==
LOC: ED 14:12 → SUATTDRO 18:01 → 1E 18:01
DX: Z99.11 Dependence on respirator [ventilator] status; G12.21 Amyotrophic lateral sclerosis; K85.90 Acute pancreatitis without necrosis or infection, unspecified; Z83.3 Family history of diabetes mellitus; Z93.1 Gastrostomy status; Z93.0 Tracheostomy status; G82.50 Quadriplegia, unspecified; D64.9 Anemia, unspecified; K29.70 Gastritis, unspecified, without bleeding; E83.42 Hypomagnesemia; K86.1 Other chronic pancreatitis; A41.9 Sepsis, unspecified organism; K86.3 Pseudocyst of pancreas; J96.10 Chronic respiratory failure, unspecified whether with hypoxia or hypercapnia; E87.6 Hypokalemia

== ENCOUNTER 2022-08-05 14:12 | Inpatient (IN) ==
[2022-08-05] MEDS ORDERED: SODIUM CHLORIDE 0.9% 1000ML 1,000 ML IV ONE (14:29)
--- NOTE | 2022-08-05 14:38 | Emergency Department Note ---
History of Present Illness General Chief complaint: Respiratory Problems Time Seen by Provider: 08/05/22 14:24 History of Present Illness Provider complaint: Lethargy Onset (ago): day(s) 1 37-year-old male presents emergency department for lethargy. Patient's is giving the history. Patient has a history of ALS and has a trach and feeding tube. reports she thinks that the patient has an infection as he has been more lethargic and has been more blood and mucus coming from his tracheostomy site. Home Medications Medication Instructions Recorded Confirmed Type acetaminophen 160 mg/5 mL oral 640 mg feeding tube Q6 PRN Pain, 05/07/22 06/10/22 History liquid (Children's Acetaminophen) Moderate atropine 1 % eye drops 1 drp sublingual QID PRN increased 05/07/22 06/10/22 History secretions cholecalciferol (vitamin D3) 25 1,000 unit feeding tube DAILY 05/07/22 06/10/22 History mcg (1,000 unit) capsule (Vitamin D3) ibuprofen 100 mg/5 mL oral 400 mg feeding tube Q6 PRN Pain, 05/07/22 06/10/22 History suspension Moderate melatonin 3 mg tablet 3 - 6 mg PO HS PRN Sleep 05/07/22 06/10/22 History nystatin 100,000 unit/gram topical 1 applic topical DAILY PRN Rash 05/07/22 06/10/22 History powder tramadol 50 mg tablet 50 mg feeding tube Q6H PRN Pain 05/07/22 06/10/22 History zinc oxide 20 % topical ointment 1 applic topical TID 05/07/22 06/10/22 History A,D-aloe yain-piqrpkwcsy-o.pet 1 ea topical BID PRN scrotal area 06/10/22 08/06/24 History topical ointment carboxymethylcellulose sodium 0.5 1 drp ophthalmic (eye) UD PRN Dry 06/10/22 06/10/22 History % eye drops Eye(S) dextran 70-hypromellose (PF) 0.1 1 drp OPB QID 06/10/22 06/10/22 History %-0.3 % eye drops in a dropperette (Artificial Tears (PF)) famotidine 40 mg/5 mL (8 mg/mL) 20 mg feeding tube BID PRN 06/10/22 06/10/22 History oral suspension Indigestion guaifenesin 100 mg/5 mL oral liquid 200 mg feeding tube BID PRN Cough 06/10/22 06/10/22 History ipratropium bromide 21 mcg (0.03 2 spray intranasal TID 06/10/22 06/10/22 History %) nasal spray lidocaine 5 % topical ointment 1 applic topical BID PRN Pain 06/10/22 06/10/22 History midodrine 5 mg tablet 5 mg feeding tube TID 06/10/22 06/10/22 History nut.tx impaired digestive 1 ea feeding tube UD 06/10/22 06/10/22 History fxn-fiber 0.07 gram-1.5 kcal/mL oral liquid (Vital 1.5 Cali) polyethylene glycol 3350 17 17 g feeding tube DAILY PRN 06/10/22 06/10/22 History gram/dose oral powder (Miralax) Constipation riluzole 50 mg tablet 50 mg feeding tube DAILY 06/10/22 06/10/22 History senna leaf extract 176 mg/5 mL 15 ml feeding tube BID PRN 06/10/22 06/10/22 History oral syrup (senna) Constipation white petrolatum-mineral oil 57.3 1 applic ophthalmic (eye) HS 06/10/22 06/10/22 History %-42.5 % eye ointment (Lubricant Eye) lansoprazole 15 mg delayed 15 mg PO DAILY #0 tabs 06/16/22 Rx release,disintegrating tablet (Prevacid SoluTab) Allergies Allergy/AdvReac Type Severity Reaction Status Date / Time No Known Allergies Allergy Verified 05/07/22 19:50 Past Med/Surg History Medical History ALS (amyotrophic lateral sclerosis) DX FEBRUARY 2014 Atrial fibrillation with RVR isolated hx of, no further reoccurances Cardiac murmur AN INFANT Dry eye syndrome Left ventricular systolic dysfunction Sleep apnea USES APAP DEVICE (DX WITH ALS) ALWAYS USING >WITH 3L AT HS ONLY Slow gastric motility D/T ALS Uses feeding tube SYRINGE FEEDING THRU PEG TUBE (STILL SWALLOWS PILLS ORALLY) Surgical History History of esophagogastroduodenoscopy (EGD) History of herniorrhaphy History of tooth extraction Hx of LASIK PRK S/P percutaneous endoscopic gastrostomy (PEG) tube placement Family History Mother Family history of diabetes mellitus Other No family history of adverse response to anesthesia Social History Smoking Status: Unknown if ever smoked Second Hand Exposure: No; Hx Alcohol Use: No Hx Substance Use: Yes Last Used Substance: Unknown Substance Use Type Other:: Medical Marijuana SL or salve Preferred Language: Angolan Communication Ability: Unable Zoology Technical Officer Required: No Beliefs That Will Affect Care: None marital status: Current Living Situation: Spouse and Family Current Living Situation Comment: AND 3 SONS How many Children do You have: 3 Feels Safe at Home: Yes Assistive Devices: Hospital Bed, Mechanical Lift and Scooter/Electric Scooter Review of Systems A total of 10 systems reviewed and were otherwise negative Physical Exam Vital Signs Vital Signs - 24 hr 08/05/22 14:20 08/05/22 14:37 08/05/22 14:48 Temperature 36.1 C L Temperature Source Rectal Pulse Rate 115 H Pulse Rate [Finger] Pulse Rate from SpO2 Sensor Respiratory Rate 23 Respiratory Effort / Characteristics Mechanically Ventilated Respiratory Depth Normal Respiratory Pattern Regular Blood Pressure 99/79 L Blood Pressure [Right Arm] Blood Pressure Mean 85 Blood Pressure Mean [Right Arm] Blood Pressure Position Lying Pulse Oximetry 100 Oxygen Delivery Method Mechanical Vent Sepsis Recent Fever Within 48 Hours No Sepsis New/Unexplained Change in Mental Status No Sepsis Action Taken by Nursing No Action Required 08/05/22 17:52 08/05/22 14:22 08/05/22 14:30 Temperature Temperature Source Pulse Rate 115 H Pulse Rate [Finger] 107 H Pulse Rate from SpO2 Sensor Respiratory Rate 20 23 Respiratory Effort / Characteristics Respiratory Depth Respiratory Pattern Blood Pressure 128/79 Blood Pressure [Right Arm] 107/75 Blood Pressure Mean 95 Blood Pressure Mean [Right Arm] 85 Blood Pressure Position Pulse Oximetry 100 Oxygen Delivery Method Trach Collar Mechanical Vent Mechanical Vent Sepsis Recent Fever Within 48 Hours Sepsis New/Unexplained Change in Mental Status Sepsis Action Taken by Nursing 08/05/22 14:30 08/05/22 14:40 08/05/22 14:50 Temperature Temperature Source Pulse Rate 112 H 116 H 121 H Pulse Rate [Finger] Pulse Rate from SpO2 Sensor 113 H 117 H 121 H Respiratory Rate 22 21 24 Respiratory Effort / Characteristics Respiratory Depth Respiratory Pattern Blood Pressure Blood Pressure [Right Arm] Blood Pressure Mean Blood Pressure Mean [Right Arm] Blood Pressure Position Pulse Oximetry 99 98 100 Oxygen Delivery Method Mechanical Vent Mechanical Vent Mechanical Vent Sepsis Recent Fever Within 48 Hours Sepsis New/Unexplained Change in Mental Status Sepsis Action Taken by Nursing 08/05/22 15:00 08/05/22 15:04 08/05/22 15:04 Temperature Temperature Source Pulse Rate 115 H 115 H Pulse Rate [Finger] Pulse Rate from SpO2 Sensor 115 H 115 H Respiratory Rate 23 23 Respiratory Effort / Characteristics Respiratory Depth Respiratory Pattern Blood Pressure 117/92 Blood Pressure [Right Arm] Blood Pressure Mean 100 Blood Pressure Mean [Right Arm] Blood Pressure Position Pulse Oximetry 100 99 Oxygen Delivery Method Mechanical Vent Mechanical Vent Mechanical Vent Sepsis Recent Fever Within 48 Hours Sepsis New/Unexplained Change in Mental Status Sepsis Action Taken by Nursing 08/05/22 15:11 08/05/22 15:20 08/05/22 15:30 Temperature Temperature Source Pulse Rate 112 H 115 H 113 H Pulse Rate [Finger] Pulse Rate from SpO2 Sensor 110 H 115 H 114 H Respiratory Rate 24 23 18 Respiratory Effort / Characteristics Respiratory Depth Respiratory Pattern Blood Pressure Blood Pressure [Right Arm] Blood Pressure Mean Blood Pressure Mean [Right Arm] Blood Pressure Position Pulse Oximetry 100 100 100 Oxygen Delivery Method Mechanical Vent Mechanical Vent Mechanical Vent Sepsis Recent Fever Within 48 Hours Sepsis New/Unexplained Change in Mental Status Sepsis Action Taken by Nursing 08/05/22 15:40 08/05/22 15:50 08/05/22 15:56 Temperature Temperature Source Pulse Rate 114 H Pulse Rate [Finger] Pulse Rate from SpO2 Sensor 114 H 114 H Respiratory Rate Respiratory Effort / Characteristics Respiratory Depth Respiratory Pattern Blood Pressure 108/81 Blood Pressure [Right Arm] Blood Pressure Mean 90 Blood Pressure Mean [Right Arm] Blood Pressure Position Pulse Oximetry 100 100 Oxygen Delivery Method Mechanical Vent Mechanical Vent Mechanical Vent Sepsis Recent Fever Within 48 Hours Sepsis New/Unexplained Change in Mental Status Sepsis Action Taken by Nursing 08/05/22 15:56 08/05/22 16:00 08/05/22 16:00 Temperature Temperature Source Pulse Rate Pulse Rate [Finger] Pulse Rate from SpO2 Sensor 115 H 117 H Respiratory Rate Respiratory Effort / Characteristics Respiratory Depth Respiratory Pattern Blood Pressure 106/81 Blood Pressure [Right Arm] Blood Pressure Mean 89 Blood Pressure Mean [Right Arm] Blood Pressure Position Pulse Oximetry 100 100 Oxygen Delivery Method Mechanical Vent Mechanical Vent Mechanical Vent Sepsis Recent Fever Within 48 Hours Sepsis New/Unexplained Change in Mental Status Sepsis Action Taken by Nursing 08/05/22 16:10 08/05/22 16:20 08/05/22 16:30 Temperature Temperature Source Pulse Rate 115 H 112 H Pulse Rate [Finger] Pulse Rate from SpO2 Sensor 113 H 112 H Respiratory Rate 21 22 Respiratory Effort / Characteristics Respiratory Depth Respiratory Pattern Blood Pressure 116/74 Blood Pressure [Right Arm] Blood Pressure Mean 88 Blood Pressure Mean [Right Arm] Blood Pressure Position Pulse Oximetry 100 100 Oxygen Delivery Method Mechanical Vent Mechanical Vent Mechanical Vent Sepsis Recent Fever Within 48 Hours Sepsis New/Unexplained Change in Mental Status Sepsis Action Taken by Nursing 08/05/22 16:30 08/05/22 16:40 08/05/22 16:50 Temperature Temperature Source Pulse Rate 109 H 112 H 111 H Pulse Rate [Finger] Pulse Rate from SpO2 Sensor 109 H 112 H 111 H Respiratory Rate 19 22 22 Respiratory Effort / Characteristics Respiratory Depth Respiratory Pattern Blood Pressure Blood Pressure [Right Arm] Blood Pressure Mean Blood Pressure Mean [Right Arm] Blood Pressure Position Pulse Oximetry 100 100 100 Oxygen Delivery Method Mechanical Vent Mechanical Vent Mechanical Vent Sepsis Recent Fever Within 48 Hours Sepsis New/Unexplained Change in Mental Status Sepsis Action Taken by Nursing 08/05/22 17:00 08/05/22 17:00 08/05/22 17:10 Temperature Temperature Source Pulse Rate 109 H 111 H Pulse Rate [Finger] Pulse Rate from SpO2 Sensor 110 H 111 H Respiratory Rate 22 20 Respiratory Effort / Characteristics Respiratory Depth Respiratory Pattern Blood Pressure 109/74 Blood Pressure [Right Arm] Blood Pressure Mean 85 Blood Pressure Mean [Right Arm] Blood Pressure Position Pulse Oximetry 100 100 Oxygen Delivery Method Mechanical Vent Mechanical Vent Mechanical Vent Sepsis Recent Fever Within 48 Hours Sepsis New/Unexplained Change in Mental Status Sepsis Action Taken by Nursing 08/05/22 17:20 08/05/22 17:30 08/05/22 17:30 Temperature Temperature Source Pulse Rate 111 H 108 H Pulse Rate [Finger] Pulse Rate from SpO2 Sensor 111 H 108 H Respiratory Rate 20 16 Respiratory Effort / Characteristics Respiratory Depth Respiratory Pattern Blood Pressure 107/75 Blood Pressure [Right Arm] Blood Pressure Mean 85 Blood Pressure Mean [Right Arm] Blood Pressure Position Pulse Oximetry 98 100 Oxygen Delivery Method Mechanical Vent Mechanical Vent Mechanical Vent Sepsis Recent Fever Within 48 Hours Sepsis New/Unexplained Change in Mental Status Sepsis Action Taken by Nursing 08/05/22 17:40 08/05/22 17:50 08/05/22 18:14 Temperature Temperature Source Pulse Rate 109 H 107 H 111 H Pulse Rate [Finger] Pulse Rate from SpO2 Sensor 110 H 107 H Respiratory Rate 24 20 22 Respiratory Effort / Characteristics Respiratory Depth Respiratory Pattern Blood Pressure Blood Pressure [Right Arm] Blood Pressure Mean Blood Pressure Mean [Right Arm] Blood Pressure Position Pulse Oximetry 100 100 Oxygen Delivery Method Mechanical Vent Mechanical Vent Mechanical Vent Sepsis Recent Fever Within 48 Hours Sepsis New/Unexplained Change in Mental Status Sepsis Action Taken by Nursing 08/05/22 18:20 08/05/22 18:23 08/05/22 18:23 Temperature Temperature Source Pulse Rate 112 H 112 H Pulse Rate [Finger] Pulse Rate from SpO2 Sensor 111 H Respiratory Rate 22 22 Respiratory Effort / Characteristics Respiratory Depth Respiratory Pattern Blood Pressure 100/66 Blood Pressure [Right Arm] Blood Pressure Mean 77 Blood Pressure Mean [Right Arm] Blood Pressure Position Pulse Oximetry 100 Oxygen Delivery Method Mechanical Vent Mechanical Vent Mechanical Vent Sepsis Recent Fever Within 48 Hours Sepsis New/Unexplained Change in Mental Status Sepsis Action Taken by Nursing 08/05/22 18:30 08/05/22 18:30 08/05/22 18:40 Temperature Temperature Source Pulse Rate 113 H 110 H Pulse Rate [Finger] Pulse Rate from SpO2 Sensor 113 H 110 H Respiratory Rate 23 22 Respiratory Effort / Characteristics Respiratory Depth Respiratory Pattern Blood Pressure 96/65 L Blood Pressure [Right Arm] Blood Pressure Mean 75 Blood Pressure Mean [Right Arm] Blood Pressure Position Pulse Oximetry 100 100 Oxygen Delivery Method Mechanical Vent Mechanical Vent Mechanical Vent Sepsis Recent Fever Within 48 Hours Sepsis New/Unexplained Change in Mental Status Sepsis Action Taken by Nursing 08/05/22 18:50 08/05/22 19:00 08/05/22 19:00 Temperature Temperature Source Pulse Rate 108 H 106 H Pulse Rate [Finger] Pulse Rate from SpO2 Sensor 108 H 106 H Respiratory Rate 21 19 Respiratory Effort / Characteristics Respiratory Depth Respiratory Pattern Blood Pressure 111/75 Blood Pressure [Right Arm] Blood Pressure Mean 87 Blood Pressure Mean [Right Arm] Blood Pressure Position Pulse Oximetry 100 100 Oxygen Delivery Method Mechanical Vent Mechanical Vent Mechanical Vent Sepsis Recent Fever Within 48 Hours Sepsis New/Unexplained Change in Mental Status Sepsis Action Taken by Nursing 08/05/22 19:10 08/05/22 19:20 08/05/22 19:30 Temperature Temperature Source Pulse Rate 106 H 103 H Pulse Rate [Finger] Pulse Rate from SpO2 Sensor 106 H 103 H Respiratory Rate 19 17 Respiratory Effort / Characteristics Respiratory Depth Respiratory Pattern Blood Pressure 136/81 Blood Pressure [Right Arm] Blood Pressure Mean 99 Blood Pressure Mean [Right Arm] Blood Pressure Position Pulse Oximetry 100 100 Oxygen Delivery Method Mechanical Vent Mechanical Vent Mechanical Vent Sepsis Recent Fever Within 48 Hours Sepsis New/Unexplained Change in Mental Status Sepsis Action Taken by Nursing 08/05/22 19:30 Temperature Temperature Source Pulse Rate 105 H Pulse Rate [Finger] Pulse Rate from SpO2 Sensor 105 H Respiratory Rate 17 Respiratory Effort / Characteristics Respiratory Depth Respiratory Pattern Blood Pressure Blood Pressure [Right Arm] Blood Pressure Mean Blood Pressure Mean [Right Arm] Blood Pressure Position Pulse Oximetry 100 Oxygen Delivery Method Mechanical Vent Sepsis Recent Fever Within 48 Hours Sepsis New/Unexplained Change in Mental Status Sepsis Action Taken by Nursing Physical Exam GENERAL: Ill appearing male. EYES: Conjunctivae and EOM are normal. Pupils are equal, round, and reactive to light. Right eye exhibits no discharge. Left eye exhibits no discharge. No scleral icterus. NECK: Tracheostomy in place. CV: Tachycardic rate, regular rhythm, normal heart sounds and intact distal pulses. There is no peripheral edema. Palpable radial pulses bue. PULM/CHEST: Rhonchi bilaterally. ABD: The abdomen is soft. Feeding tube in place. NEURO: Baseline mental status been more lethargic per the at bedside who is his primary caregiver. SKIN: Stage II bedsore over the coccyx with some discharge. Course Course 1424: The patient was evaluated in room B1. A complete history and physical exam was performed Administered Medications Potassium Chloride/Sodium Chloride (Normal Saline W/20 Meq Kcl) 20 meq in 1,000 mls @ 125 mls/hr IV .Q8H [facility]; Protocol Stop: 09/04/22 16:44 Last Admin: 08/05/22 20:21 Dose: 125 mls/hr Documented By: DEMETRIUS Discontinued Medications Sodium Chloride (Nss 1000ml) 1,000 mls @ 999 mls/hr IV .Q1H1M ONE Stop: 08/05/22 15:29 Last Infusion: 08/05/22 16:11 Dose: 0 mls/hr Documented By: Admin: 08/05/22 14:54 Dose: 999 mls/hr Documented By: DEMETRIUS Sodium Chloride (Nss 1000ml) 1,000 mls @ 999 mls/hr IV .Q1H1M STA Stop: 08/05/22 16:46 Last Infusion: 08/05/22 17:12 Dose: 0 mls/hr Documented By: Admin: 08/05/22 16:09 Dose: 999 mls/hr Documented By: DEMETRIUS Sodium Chloride (Nss 1000ml) 500 mls @ 999 mls/hr IV .Q31M ONE Stop: 08/05/22 17:02 Last Infusion: 08/05/22 18:31 Dose: 0 mls/hr Documented By: Admin: 08/05/22 17:02 Dose: 999 mls/hr Documented By: DEMETRIUS Vancomycin HCl 2,250 mg/ (Sodium Chloride) 545 mls @ 200 mls/hr IV NOW ONE Stop: 08/05/22 19:15 Last Infusion: 08/05/22 21:12 Dose: 0 mls/hr Documented By: Admin: 08/05/22 17:49 Dose: 200 mls/hr Documented By: MITRA Potassium Chloride (K Jose Juan / Wtr) 10 meq in 100 mls @ 100 mls/hr IV Q1H [facility]; Protocol Stop: 08/05/22 18:44 Last Infusion: 08/05/22 19:32 Dose: 0 mls/hr Documented By: Admin: 08/05/22 18:32 Dose: 100 mls/hr Documented By: Infusion: 08/05/22 18:31 Dose: 0 mls/hr Documented By: Admin: 08/05/22 17:02 Dose: 100 mls/hr Documented By: DEMETRIUS Meropenem 500 mg/ Syringe 10 mls @ 2 mls/min IV NOW ONE; Protocol Stop: 08/05/22 17:04 Last Admin: 08/05/22 17:33 Dose: 2 mls/min Documented By: MITRA Ioversol (Ioversol 350 Mg 100ml Prefilled Syringe) 93 ml IV ONCE ONE Stop: 08/05/22 18:13 Last Admin: 08/05/22 18:12 Dose: 93 ml Documented By: ORLANDO Morphine Sulfate (Morphine Sulfate 2 Mg/Ml Carp) 2 mg IV NOW STA Stop: 08/05/22 16:00 Last Admin: 08/05/22 16:08 Dose: 2 mg Documented By: DEMETRIUS Potassium Chloride (Potassium Chloride 20 Meq/15 Ml Udc) 40 meq PO NOW STA Stop: 08/05/22 16:35 Last Admin: 08/05/22 17:36 Dose: 40 meq Documented By: MITRA Critical Care Time Critical Care Time: Yes Total Critical Care Time: 53 I have personally spent greater than 53 minutes of critical care time in the direct management of this patient. This includes bedside care, interpretation of diagnostic studies, and testing, discussion with consultants, patient, and family members, and other required patient management activities. This 53 minutes is in excess of all separately billable procedures. Medical Decision Making Laboratory Data Result diagrams: 08/05/22 13:30 08/05/22 13:30 Lab Results 08/05/22 08/05/22 08/05/22 Range/Units 13:30 13:30 13:30 WBC 27.51 H (4.8-10.8) K/ul RBC 4.81 (4.63-6.08) M/uL Hgb 14.2 (14.0-18.0) g/dl POC Hgb (14.0-18.0) g/dl Hct 41.6 (40.1-51.0) % POC Hct (42-52) % MCV 86.5 (80.0-100.0) fL MCH 29.5 (25.0-34.0) pg MCHC 34.1 (32.0-36.0) g/dL RDW Std Deviation 48.2 H (36.4-46.3) fL RDW Coeff of Aissatou 15.3 H (11.5-14.5) % Plt Count 577 H (130-400) K/uL MPV 10.7 (9.4-12.4) fL Immature Gran % (Auto) 0.9 % Neut % (Auto) 91.3 % Lymph % (Auto) 4.4 % [place] % (Auto) 3.1 % Eos % (Auto) 0.1 % Baso % (Auto) 0.2 % Neut # (Auto) 25.11 H (1.4-6.5) K/uL Lymph # (Auto) 1.22 (1.2-3.4) K/uL [place] # (Auto) 0.86 H (0.24-0.82) K/uL Eos # (Auto) 0.03 (0-0.50) K/uL Baso # (Auto) 0.05 (0-0.2) K/uL Immature Gran # (Auto) 0.24 H (0.00-0.02) K/uL PT 10.3 (9.0-12.0) Seconds INR 1.0 (0.9-1.1) APTT 27.7 (21.0-31.0) Seconds PTT Ratio 1.0 POC pH (7.35-7.45) POC pCO2 (35-46) mmHg POC pO2 (80-95) mmHg POC HCO3 (19-24) allison/L POC Total CO2 (24-31) mmol/L POC Base Excess (-9-1.8) allison/L ABG pH (7.35-7.45) ABG pCO2 (35-46) mmHg ABG pO2 (80-95) mmHg ABG HCO3 (19-24) mmol/L POC ABG O2 Sat (90-95) % ABG O2 Saturation (90-95) % ABG Base Excess (-9-1.8) mEq/L Praveen Test (Pos) Oxygen Given POC Sodium (135-144) mmol/L Sodium 133 L (136-145) mmol/L POC Potassium (3.3-5.0) mmol/L Potassium 2.5 L* (3.5-5.1) mmol/L Chloride 81 L (98-107) mmol/L Carbon Dioxide 25 (21-32) mmol/L Anion Gap 27 H (3-11) BUN 242 H (6-23) mg/dl Creatinine 0.50 L (0.6-1.4) mg/dl Est Cr Clr Drug Dosing 226.3 ml/min Est GFR ( Amer) > 150.0 ml/min Est GFR (Non-Af Amer) 140.4 ml/min BUN/Creatinine Ratio 484.0 H (10-20) Glucose 283 H (70-99(Fasting)) mg/dl Lactate (0.4-2.0) mmol/L Calcium 10.6 H (8.5-10.1) mg/dl Magnesium 3.6 H (1.7-2.4) mg/dl Total Bilirubin 0.5 (0.2-1.0) mg/dl Direct Bilirubin 0.2 (0-0.2) mg/dl AST 40 H (13-39) U/L ALT 81 H (7-52) U/L Alkaline Phosphatase 471 H (34-104) U/L Troponin I High Sens 18.3 D (0-20) pg/ml Total Protein 9.0 H (6.0-8.3) gm/dl Albumin 4.7 (3.4-5.0) gm/dl Lipase (11-82) U/L Procalcitonin (0-0.5) ng/ml Urine Color Urine Appearance (Clear) Urine pH (4.5-7.5) Ur Specific [place] (1.000-1.030) Urine Protein (Negative) Urine Glucose (UA) (Negative) Urine Ketones (Negative) Urine Blood (Negative) Urine Nitrite (Negative) Urine Bilirubin (Negative) Urine Urobilinogen (Negative) Ur Leukocyte Esterase (Negative) Urine WBC (Auto) (0-5) /hpf Urine RBC (Auto) (0-4) /hpf U Hyaline Cast (Auto) (0-5) /lpf U Epithel Cells (Auto) (0-5) /lpf Urine Bacteria (Auto) (Negative) SARS-CoV-2, RNA, NAAT (NEGATIVE) 08/05/22 08/05/22 08/05/22 Range/Units 13:30 13:30 15:00 WBC (4.8-10.8) K/ul RBC (4.63-6.08) M/uL Hgb (14.0-18.0) g/dl POC Hgb (14.0-18.0) g/dl Hct (40.1-51.0) % POC Hct (42-52) % MCV (80.0-100.0) fL MCH (25.0-34.0) pg MCHC (32.0-36.0) g/dL RDW Std Deviation (36.4-46.3) fL RDW Coeff of Aissatou (11.5-14.5) % Plt Count (130-400) K/uL MPV (9.4-12.4) fL Immature Gran % (Auto) % Neut % (Auto) % Lymph % (Auto) % [place] % (Auto) % Eos % (Auto) % Baso % (Auto) % Neut # (Auto) (1.4-6.5) K/uL Lymph # (Auto) (1.2-3.4) K/uL [place] # (Auto) (0.24-0.82) K/uL Eos # (Auto) (0-0.50) K/uL Baso # (Auto) (0-0.2) K/uL Immature Gran # (Auto) (0.00-0.02) K/uL PT (9.0-12.0) Seconds INR (0.9-1.1) APTT (21.0-31.0) Seconds PTT Ratio POC pH (7.35-7.45) POC pCO2 (35-46) mmHg POC pO2 (80-95) mmHg POC HCO3 (19-24) allison/L POC Total CO2 (24-31) mmol/L POC Base Excess (-9-1.8) allison/L ABG pH (7.35-7.45) ABG pCO2 (35-46) mmHg ABG pO2 (80-95) mmHg ABG HCO3 (19-24) mmol/L POC ABG O2 Sat (90-95) % ABG O2 Saturation (90-95) % ABG Base Excess (-9-1.8) mEq/L Praveen Test (Pos) Oxygen Given POC Sodium (135-144) mmol/L Sodium (136-145) mmol/L POC Potassium (3.3-5.0) mmol/L Potassium (3.5-5.1) mmol/L Chloride (98-107) mmol/L Carbon Dioxide (21-32) mmol/L Anion Gap (3-11) BUN (6-23) mg/dl Creatinine (0.6-1.4) mg/dl Est Cr Clr Drug Dosing ml/min Est GFR ( Amer) ml/min Est GFR (Non-Af Amer) ml/min BUN/Creatinine Ratio (10-20) Glucose (70-99(Fasting)) mg/dl Lactate 3.9 H* (0.4-2.0) mmol/L Calcium (8.5-10.1) mg/dl Magnesium (1.7-2.4) mg/dl Total Bilirubin (0.2-1.0) mg/dl Direct Bilirubin (0-0.2) mg/dl AST (13-39) U/L ALT (7-52) U/L Alkaline Phosphatase (34-104) U/L Troponin I High Sens (0-20) pg/ml Total Protein (6.0-8.3) gm/dl Albumin (3.4-5.0) gm/dl Lipase 135 H (11-82) U/L Procalcitonin 1.28 H (0-0.5) ng/ml Urine Color Urine Appearance (Clear) Urine pH (4.5-7.5) Ur Specific [place] (1.000-1.030) Urine Protein (Negative) Urine Glucose (UA) (Negative) Urine Ketones (Negative) Urine Blood (Negative) Urine Nitrite (Negative) Urine Bilirubin (Negative) Urine Urobilinogen (Negative) Ur Leukocyte Esterase (Negative) Urine WBC (Auto) (0-5) /hpf Urine RBC (Auto) (0-4) /hpf U Hyaline Cast (Auto) (0-5) /lpf U Epithel Cells (Auto) (0-5) /lpf Urine Bacteria (Auto) (Negative) SARS-CoV-2, RNA, NAAT (NEGATIVE) 08/05/22 08/05/22 08/05/22 Range/Units 15:07 16:50 17:07 WBC (4.8-10.8) K/ul RBC (4.63-6.08) M/uL Hgb (14.0-18.0) g/dl POC Hgb (14.0-18.0) g/dl Hct (40.1-51.0) % POC Hct (42-52) % MCV (80.0-100.0) fL MCH (25.0-34.0) pg MCHC (32.0-36.0) g/dL RDW Std Deviation (36.4-46.3) fL RDW Coeff of Aissatou (11.5-14.5) % Plt Count (130-400) K/uL MPV (9.4-12.4) fL Immature Gran % (Auto) % Neut % (Auto) % Lymph % (Auto) % [place] % (Auto) % Eos % (Auto) % Baso % (Auto) % Neut # (Auto) (1.4-6.5) K/uL Lymph # (Auto) (1.2-3.4) K/uL [place] # (Auto) (0.24-0.82) K/uL Eos # (Auto) (0-0.50) K/uL Baso # (Auto) (0-0.2) K/uL Immature Gran # (Auto) (0.00-0.02) K/uL PT (9.0-12.0) Seconds INR (0.9-1.1) APTT (21.0-31.0) Seconds PTT Ratio POC pH (7.35-7.45) POC pCO2 (35-46) mmHg POC pO2 (80-95) mmHg POC HCO3 (19-24) allison/L POC Total CO2 (24-31) mmol/L POC Base Excess (-9-1.8) allison/L ABG pH 7.65 H* (7.35-7.45) ABG pCO2 23 L (35-46) mmHg ABG pO2 94 (80-95) mmHg ABG HCO3 25 H (19-24) mmol/L POC ABG O2 Sat (90-95) % ABG O2 Saturation 99.5 H (90-95) % ABG Base Excess 5.9 H (-9-1.8) mEq/L Praveen Test POS (Pos) Oxygen Given 2L POC Sodium (135-144) mmol/L Sodium (136-145) mmol/L POC Potassium (3.3-5.0) mmol/L Potassium (3.5-5.1) mmol/L Chloride (98-107) mmol/L Carbon Dioxide (21-32) mmol/L Anion Gap (3-11) BUN (6-23) mg/dl Creatinine (0.6-1.4) mg/dl Est Cr Clr Drug Dosing ml/min Est GFR ( Amer) ml/min Est GFR (Non-Af Amer) ml/min BUN/Creatinine Ratio (10-20) Glucose (70-99(Fasting)) mg/dl Lactate (0.4-2.0) mmol/L Calcium (8.5-10.1) mg/dl Magnesium (1.7-2.4) mg/dl Total Bilirubin (0.2-1.0) mg/dl Direct Bilirubin (0-0.2) mg/dl AST (13-39) U/L ALT (7-52) U/L Alkaline Phosphatase (34-104) U/L Troponin I High Sens (0-20) pg/ml Total Protein (6.0-8.3) gm/dl Albumin (3.4-5.0) gm/dl Lipase (11-82) U/L Procalcitonin (0-0.5) ng/ml Urine Color Yellow Urine Appearance Clear (Clear) Urine pH 5.0 (4.5-7.5) Ur Specific [place] 1.016 (1.000-1.030) Urine Protein 1+ H (Negative) Urine Glucose (UA) Negative (Negative) Urine Ketones Negative (Negative) Urine Blood Negative (Negative) Urine Nitrite Negative (Negative) Urine Bilirubin Negative (Negative) Urine Urobilinogen Negative (Negative) Ur Leukocyte Esterase Negative (Negative) Urine WBC (Auto) 1-5 (0-5) /hpf Urine RBC (Auto) 5-10 H (0-4) /hpf U Hyaline Cast (Auto) 5-10 H (0-5) /lpf U Epithel Cells (Auto) 5-10 H (0-5) /lpf Urine Bacteria (Auto) Negative (Negative) SARS-CoV-2, RNA, NAAT NEGATIVE (NEGATIVE) 08/05/22 08/05/22 08/05/22 Range/Units 17:26 20:29 20:50 WBC (4.8-10.8) K/ul RBC (4.63-6.08) M/uL Hgb (14.0-18.0) g/dl POC Hgb 11.6 L (14.0-18.0) g/dl Hct (40.1-51.0) % POC Hct 34 L (42-52) % MCV (80.0-100.0) fL MCH (25.0-34.0) pg MCHC (32.0-36.0) g/dL RDW Std Deviation (36.4-46.3) fL RDW Coeff of Aissatou (11.5-14.5) % Plt Count (130-400) K/uL MPV (9.4-12.4) fL Immature Gran % (Auto) % Neut % (Auto) % Lymph % (Auto) % [place] % (Auto) % Eos % (Auto) % Baso % (Auto) % Neut # (Auto) (1.4-6.5) K/uL Lymph # (Auto) (1.2-3.4) K/uL [place] # (Auto) (0.24-0.82) K/uL Eos # (Auto) (0-0.50) K/uL Baso # (Auto) (0-0.2) K/uL Immature Gran # (Auto) (0.00-0.02) K/uL PT (9.0-12.0) Seconds INR (0.9-1.1) APTT (21.0-31.0) Seconds PTT Ratio POC pH 7.49 H 7.49 H (7.35-7.45) POC pCO2 31 L 33 L (35-46) mmHg POC pO2 < 32 L 141 H (80-95) mmHg POC HCO3 24 25 H (19-24) allison/L POC Total CO2 24 26 (24-31) mmol/L POC Base Excess 0.0 2.0 H (-9-1.8) allison/L ABG pH (7.35-7.45) ABG pCO2 (35-46) mmHg ABG pO2 (80-95) mmHg ABG HCO3 (19-24) mmol/L POC ABG O2 Sat 61.0 L 99.0 H (90-95) % ABG O2 Saturation (90-95) % ABG Base Excess (-9-1.8) mEq/L Praveen Test (Pos) Oxygen Given POC Sodium 142 (135-144) mmol/L Sodium (136-145) mmol/L POC Potassium 2.3 L* (3.3-5.0) mmol/L Potassium (3.5-5.1) mmol/L Chloride (98-107) mmol/L Carbon Dioxide (21-32) mmol/L Anion Gap (3-11) BUN (6-23) mg/dl Creatinine (0.6-1.4) mg/dl Est Cr Clr Drug Dosing ml/min Est GFR ( Amer) ml/min Est GFR (Non-Af Amer) ml/min BUN/Creatinine Ratio (10-20) Glucose (70-99(Fasting)) mg/dl Lactate 1.9 (0.4-2.0) mmol/L Calcium (8.5-10.1) mg/dl Magnesium (1.7-2.4) mg/dl Total Bilirubin (0.2-1.0) mg/dl Direct Bilirubin (0-0.2) mg/dl AST (13-39) U/L ALT (7-52) U/L Alkaline Phosphatase (34-104) U/L Troponin I High Sens (0-20) pg/ml Total Protein (6.0-8.3) gm/dl Albumin (3.4-5.0) gm/dl Lipase (11-82) U/L Procalcitonin (0-0.5) ng/ml Urine Color Urine Appearance (Clear) Urine pH (4.5-7.5) Ur Specific [place] (1.000-1.030) Urine Protein (Negative) Urine Glucose (UA) (Negative) Urine Ketones (Negative) Urine Blood (Negative) Urine Nitrite (Negative) Urine Bilirubin (Negative) Urine Urobilinogen (Negative) Ur Leukocyte Esterase (Negative) Urine WBC (Auto) (0-5) /hpf Urine RBC (Auto) (0-4) /hpf U Hyaline Cast (Auto) (0-5) /lpf U Epithel Cells (Auto) (0-5) /lpf Urine Bacteria (Auto) (Negative) SARS-CoV-2, RNA, NAAT (NEGATIVE) Imaging Data Radiologist's Impression: Chest X-Ray 08/05/22 14:29 XR chest 1V portable HISTORY: Sepsis COMPARISON: Chest 06/11/2022. FINDINGS: The tracheostomy tube appears in good position. There are low lung volumes. There are bibasilar linear densities and small bilateral pleural effusions, unchanged. The heart remains top normal in size. No evidence for pulmonary edema. The upper lung zones are clear. IMPRESSION: 1. No change in the small bilateral pleural effusions and bibasilar densities. 2. Tracheostomy tube appears in good position. ACT 112: Negative or not required by law. Electronically signed by: Tony Roldan M.D. 08/05/2022 3:10 PM Abdomen/Pelvis CT 08/05/22 16:[address] WITH IV CONTRAST CT DOSE: 859.45 mGy.cm HISTORY: Acute sepsis in a patient with pancreatic pseudocysts sepsis hx of infected pseudocyst TECHNIQUE: Multiaxial CT images of the abdomen and pelvis were performed following the IV administration of 93 cc of Optiray, A dose lowering technique was utilized adhering to the principles of ALARA. COMPARISON STUDY: CT abdomen and pelvis 06/15/2022 FINDINGS: Small left pleural effusion has decreased in size from the prior study. Dependent bibasilar consolidation. No pneumatosis or pneumoperitoneum. Unremarkable spleen, gallbladder, and adrenal glands. Hepatic steatosis with mild right hemidiaphragmatic elevation. Patency of the hepatic and portal veins. The splenic vein is attenuated however is patent. There is decreased interstitial and peripancreatic inflammation compared to the prior exam with decreased abdominal ascites. Peripancreatic fluid collections have also decreased in size from the prior study, now at the largest measuring 3.8 cm adjacent to the pancreatic tail. Tiny fluid collections are again noted extending along the stomach and transverse colon. Embolization coils are noted adjacent to the distal stomach and pancreatic head. Gastrojejunostomy tube is in place. Decreased gastric wall thickening. 4 mm nonobstructing calculus of the superior pole left kidney. No ureteral calculi or hydronephrosis identified. Layering hyperdensity within the urinary bladder may represent stone fragments. Mild urinary bladder distention. Aorta and IVC appear unchanged. There is marked diffuse muscle atrophy. No bowel obstruction or bowel wall thickening. Normal appendix. No acute fracture. Demineralized appearance of the bones. IMPRESSION: 1. Gastrojejunostomy tube in place with decreased gastric wall thickening compared to the prior exam. 2. Resolving acute pancreatitis with decreased size of the numerous peripancreatic fluid collections suggestive of pseudocysts. 3. Small left pleural effusion with dependent bibasilar airspace opacities favoring atelectasis. 4. 4 mm left renal calculus. No ureteral calculi or hydronephrosis. 5. No bowel obstruction or bowel wall thickening. 6. Additional findings as above. ACT 112: Negative or not required by law. The above report was generated using voice recognition software. It may contain grammatical, syntax or spelling errors. Electronically signed by: James Brody M.D. 08/05/2022 6:[address] 08/05/22 19:10 CT chest diagnostic wo con CT DOSE: 454.96 mGy.cm CLINICAL HISTORY: 37 years-old Male with sepsis. R/o PNA. Acute sepsis with clinical concern for pneumonia TECHNIQUE: Multiaxial CT images of the chest were performed without contrast. A dose lowering technique was utilized adhering to the principles of ALARA. COMPARISON: CT abdomen and pelvis of same day, CTA chest 05/07/2022 FINDINGS: Tracheostomy cannula distal tip terminates above the level the clavicular heads. Fluid within the airway proximal to the cannula. Mild tracheobronchial secretions. No thyroid nodule or lymphadenopathy. The heart is normal in size without pericardial effusion. No thoracic aortic aneurysm. Marked atrophy of the musculature redemonstrated. Small left pleural effusion with dependent bibasilar consolidation. There are additional centrilobular groundglass nodules in the superior segments of the lower lobes. No overt pulmonary edema or suspicious pulmonary nodules. Abdominal findings are dictated separately. Unremarkable soft tissues. No acute fracture identified. Unchanged mild thoracolumbar compression deformities. IMPRESSION: 1. Tracheostomy cannula in place with mild tracheobronchial secretions. 2. Small left pleural effusion with bibasilar consolidation. Additional cent rilobular groundglass nodular opacities are present within the superior segments of the lower lobes. Findings are suggestive of pneumonia versus aspiration. 3. Please refer to the CT abdomen and pelvis study of same day for additional findings. ACT 112: Negative or not required by law. Electronically signed by: James Brody M.D. 08/05/2022 8:33 PM MDM Narrative Cardiac monitoring: An order was placed for continuous cardiac monitoring. The monitor shows a rate of 110 with sinus tachycardia rhythm Sepsis protocols were initiated. Labs showed white blood cell count of 27.5. ABG showed pH of 7.65 with PCO2 of 23. Chemistry panel showed potassium of 2.5. Potassium repletion started in the emergency department. Procalcitonin elevated 1.28. Lipase 135. Lactic acid 3.9. Patient was treated with broad-spectrum antibiotics after discussing with pharmacy. Patient was treated with meropenem and vancomycin based off his previous culture results of a pancreatic pseudocyst. Sputum culture from patient's trach was sent for gram stain and culture. After 30 cc/kg bolus of normal saline the patient's repeat lactic acid was 1.9. X-ray negative. CT of the abdomen had a GJ tube in place and resolving pancreatitis with decreased size of numerous peripancreatic fluid collections. The gram stain of the sputum culture from the patient's tracheostomy showed many gram-negative bacilli and moderate gram-positive cocci. Patient [facility] be [facility] to [facility] team Dr. Chen accepted the patient. Impression & Plan Sepsis, ALS (amyotrophic lateral sclerosis), Ventilator dependence, Acute hyp okalemia Discharge Plan Visit Data Chief Complaint: Respiratory Problems ED Provider: Andreas Fan Discharge Problem: Sepsis, ALS (amyotrophic lateral sclerosis), Ventilator dependence, Acute hypokalemia Patient Disposition: Admitted As Inpatient Forms [facility] Prescriptions: No Action acetaminophen [Children's Acetaminophen] 160 mg/5 mL Liquid 640 mg feeding tube Q6 PRN (Reason: Pain, Moderate) Rx Instructions: administer 20 ml into j=tube melatonin 3 mg Tablet 3 - 6 mg PO HS PRN (Reason: Sleep) tramadol 50 mg Tablet 50 mg feeding tube Q6H PRN (Reason: Pain) zinc oxide 20 % Ointment 1 applic TOPICAL TID Rx Instructions: apply to buttocks for bed sores nystatin 100,000 unit/gram Powder 1 applic TOPICAL DAILY PRN (Reason: Rash) Rx Instructions: apply to buttocks/ groin ibuprofen 100 mg/5 mL Suspension 400 mg feeding tube Q6 PRN (Reason: Pain, Moderate) Rx Instructions: administer 20 ml into j-tube atropine 1 % Drops 1 drp sublingual QID PRN (Reason: increased secretions) cholecalciferol (vitamin D3) [Vitamin D3] 25 mcg (1,000 unit) Capsule 1,000 unit feeding tube DAILY Rx Instructions: use j-tube famotidine 40 mg/5 mL (8 mg/mL) Suspension 20 mg feeding tube BID PRN (Reason: Indigestion) Rx Instructions: use j-tube guaifenesin 100 mg/5 mL Liquid 200 mg feeding tube BID PRN (Reason: Cough) Rx Instructions: administer 10 ml into j-tube midodrine 5 mg Tablet 5 mg feeding tube TID Rx Instructions: administer into j-tub morning,noon and bedtime polyethylene glycol 3350 [Miralax] 17 gram/dose Powder 17 g feeding tube DAILY PRN (Reason: Constipation) Rx Instructions: dissolve into 8 oz of water and administer into j-tube ipratropium bromide 21 mcg (0.03 %) [place],Non-Aerosol 2 spray INTRANASAL TID Rx Instructions: administer into each nostril 2-3 times a day riluzole 50 mg Tablet 50 mg feeding tube DAILY Rx Instructions: must be taken on empty stomach; no food 1 hr after or 2-3 hrs before dose on hold senna leaf extract [senna] 176 mg/5 mL Syrup 15 ml feeding tube BID PRN (Reason: Constipation) Vital 1.5 [place]i 0.07 gram- 1.5 kcal/mL Liquid 1 ea feeding tube UD Rx Instructions: [facility] orders 65 ml/hr continuous at (5 cartons daily) [facility] reads 1 can peg tube 7 times a day lidocaine 5 % Ointment 1 applic TOPICAL BID PRN (Reason: Pain) Rx Instructions: apply to neck A,D-aloe [id number] Ointment 1 ea TOPICAL BID PRN (Reason: scrotal area) Lubricant Eye 57.3-42.5 % Ointment 1 applic ophthalmic (eye) HS carboxymethylcellulose sodium 0.5 % Drops 1 drp OPHTHALMIC (EYE) UD PRN (Reason: Dry Eye(S)) Artificial Tears (PF) 0.1-0.3 % Dropperette 1 drp OPB QID lansoprazole [Prevacid SoluTab] 15 mg Tablet,Disintegrat, Delay Rel 15 mg PO DAILY Qty: 0 0RF Referrals Referrals: [place],Mykel [email or web address]. [Primary Care Provider] -
[2022-08-05 14:44] LABS: Hematocrit (blood only) 41.6 % (40.1-51.0); Hemoglobin 14.2 g/dl (14.0-18.0); Mean Corpuscular Hemoglobin 29.5 pg (25.0-34.0); Mean Corpuscular Hgb Conc 34.1 g/dL (32.0-36.0); Mean Corpuscular Volume 86.5 fL (80.0-100.0); Mean Platelet Volume 10.7 fL (9.4-12.4); Platelet Count 577 K/uL (130-400); RDW Coefficient of Variation 15.3 % (11.5-14.5); RDW Standard Deviation 48.2 fL (36.4-46.3); Red Blood Count 4.81 M/uL (4.63-6.08); White Blood Count 27.51 K/ul (4.8-10.8)
[2022-08-05 14:55] LABS: Partial Thromboplastin Time 27.7 Seconds (21.0-31.0); Prothrombin Time 10.3 Seconds (9.0-12.0)
[2022-08-05 15:02] LABS: Basophils # (auto) 0.05 K/uL (0-0.2); Basophils % (auto) 0.2 %; Eosinophils # (auto) 0.03 K/uL (0-0.50); Eosinophils % (auto) 0.1 %; Immature Granulocytes # (auto) 0.24 K/uL (0.00-0.02); Immature Granulocytes % (auto) 0.9 %; Lymphocytes # (auto) 1.22 K/uL (1.2-3.4); Lymphocytes % (auto) 4.4 %; Monocytes # (auto) 0.86 K/uL (0.24-0.82); Monocytes % (auto) 3.1 %; Neutrophils # (auto) 25.11 K/uL (1.4-6.5); Neutrophils % (auto) 91.3 %
--- NOTE | 2022-08-05 15:12 | XRay Report ---
XR chest 1V portable HISTORY: Sepsis COMPARISON: Chest 06/11/2022. FINDINGS: The tracheostomy tube appears in good position. There are low lung volumes. There are bibas ilar linear densities and small bilateral pleural effusions, unchanged. The heart remains top normal in size. No evidence for pulmonary edema. The upper lung zones are clear. IMPRESSION: 1. No change in the small bilateral pleural effusions and bibasilar densities. 2. Tracheostomy tube appears in good position. ACT 112: Negative or not required by law. Electronically signed by: Tony Roldan M.D. 08/05/2022 3:10 PM
[2022-08-05 15:39] LABS: Base Excess ABG 5.9 mEq/L (-9-1.8); HCO3 ABG 25 mmol/L (19-24); Oxygen Saturation ABG 99.5 % (90-95); PCO2 ABG 23 mmHg (35-46); PO2 ABG 94 mmHg (80-95)
[2022-08-05 15:40] LABS: Allen Test POS (Pos)
[2022-08-05 15:42] LABS: pH ABG 7.65 (7.35-7.45)
[2022-08-05 15:43] LABS: Alanine Aminotransferase 81 U/L (7-52); Albumin Level 4.7 gm/dl (3.4-5.0); Alkaline Phosphatase 471 U/L (34-104); Anion Gap 27 (3-11); Aspartate Aminotransferase 40 U/L (13-39); Bilirubin Direct 0.2 mg/dl (0-0.2); Bilirubin,Total 0.5 mg/dl (0.2-1.0); Blood Urea Nitrogen 242 mg/dl (6-23); Calcium 10.6 mg/dl (8.5-10.1); Carbon Dioxide 25 mmol/L (21-32); Chloride 81 mmol/L (98-107); Creatinine Clr Calc Pharmacy 226.3 ml/min; Est GFR (African American) > 150.0 ml/min; Est GFR (Non-African American) 140.4 ml/min; Glucose 283 mg/dl (70-99(Fasting)); Magnesium 3.6 mg/dl (1.7-2.4); Sodium 133 mmol/L (136-145); Troponin I High Sensitivity 18.3 pg/ml (0-20)
[2022-08-05] MEDS ORDERED: SODIUM CHLORIDE 0.9% 1000ML 1,000 ML IV STA (15:46)
[2022-08-05] MEDS ORDERED: MoRPHine SULFATE 2 MG/ML CARP IV STA (15:59)
[2022-08-05] MEDS ORDERED: SODIUM CHLORIDE 0.9% 1000ML 500 ML IV ONE (16:32)
[2022-08-05] MEDS ORDERED: VANCOMYCIN HCL 2,250 MG in SODIUM CHLORIDE 0.9% 500 ML IV ONE (16:32)
[2022-08-05] MEDS ORDERED: CEFEPIME 2,000 MG/20 ML VIAL IV STA (16:32)
[2022-08-05] MEDS ORDERED: VANCOMYCIN CONSULT ACTIVE PRN (16:32)
[2022-08-05] MEDS ORDERED: POTASSIUM CHLORIDE 20 MEQ/15 ML UDC PO STA ×2 (16:34→22:07)
[2022-08-05] MEDS ORDERED: MEROPENEM 500 MG in SYRINGE 0 ML IV ONE (17:00)
[2022-08-05] MEDS: POTASSIUM CHLORIDE / WTR 10 MEQ/100 ML PLCT IV SCH ×2 (17:02→18:32)
[2022-08-05 17:06] LABS: Appearance Urine Clear (Clear); Bacteria Urine Automated Negative (Negative); Bilirubin Urine Negative (Negative); Blood Urine Negative (Negative); Color Urine Yellow; Glucose Urine UA Negative (Negative); Ketones Urine Negative (Negative); Leukocyte Esterase Urine Negative (Negative); Nitrite Urine Negative (Negative); Protein Urine 1+ (Negative); Specific Gravity Urine 1.016 (1.000-1.030); Urobilinogen Urine Negative (Negative)
--- NOTE | 2022-08-05 18:04 | Electrocardiogram Report ---
Test Reason : Blood Pressure : / mmHG Vent. Rate : 114 BPM Atrial Rate : 114 BPM P-R Int : 128 ms QRS Dur : 094 ms QT Int : 392 ms P-R-T Axes : 060 036 080 degrees QTc Int : 540 ms Sinus tachycardia Possible Left atrial enlargement Prolonged QT Abnormal ECG When compared with ECG of 07-MAY-2022 19:42, Nonspecific T wave abnormality no longer evident in Inferior leads Nonspecific T wave abnormality no longer evident in Lateral leads Confirmed by Brant Chambers ([id number]) on 08/05/2022 6:04:05 PM Referred By: Confirmed By:Elmer Chambers
[2022-08-05] MEDS ORDERED: IOVERSOL 350 MG 100mL Prefilled Syringe IV ONE (18:12)
--- NOTE | 2022-08-05 18:45 | CT Scan Report ---
ABDOMEN AND PELVIS CT WITH IV CONTRAST CT DOSE: 859.45 mGy.cm HISTORY: Acute sepsis in a patient with pancreatic pseudocysts sepsis hx of infected pseudocyst TECHNIQUE: Multiaxial CT images of the abdomen and pelvis were performed following the IV administrat ion of 93 cc of Optiray, A dose lowering technique was utilized adhering to the principles of ALARA. COMPARISON STUDY: CT abdomen and pelvis 06/15/2022 FINDINGS: Small left pleural effusion has decreased in size from the prior study. Dependent bibasilar consolidation. No pneumatosis or pneumoperitoneum. Unremarkable spleen, gallbladder, and adrenal gla nds. Hepatic steatosis with mild right hemidiaphragmatic elevation. Patency of the hepatic and portal veins. The splenic vein is attenuated however is patent. There is decreased interstitial and peripancreatic inflammation compared to the prior exam with decre ased abdominal ascites. Peripancreatic fluid collections have also decreased in size from the prior s tudy, now at the largest measuring 3.8 cm adjacent to the pancreatic tail. Tiny fluid collections are again noted extending along the stomach and transverse colon. Embolization coils are noted adjacent to the distal stomach and pancreatic head. Gastrojejunostomy tube is in place. Decreased gastric wall thickening. 4 mm nonobstructing calculus of the superior pole left kidney. No ureteral calculi or hydronephrosis identified. Layering hyperdensity within the urinary bladder may represent stone fragments. Mild urin bhavana bladder distention. Aorta and IVC appear unchanged. There is marked diffuse muscle atrophy. No alondra wel obstruction or bowel wall thickening. Normal appendix. No acute fracture. Demineralized appearanc e of the bones. IMPRESSION: 1. Gastrojejunostomy tube in place with decreased gastric wall thickening compared to the prior exam. 2. Resolving acute pancreatitis with decreased size of the numerous peripancreatic fluid collections suggestive of pseudocysts. 3. Small left pleural effusion with dependent bibasilar airspace opacities favoring atelectasis. 4. 4 mm left renal calculus. No ureteral calculi or hydronephrosis. 5. No bowel obstruction or bowel wall thickening. 6. Additional findings as above. ACT 112: Negative or not required by law. The above report was generated using voice recognition software. It may contain grammatical, syntax o r spelling errors. Electronically signed by: James Brody M.D. 08/05/2022 6:43 PM
--- NOTE | 2022-08-05 19:13 | History & Physical Report ---
Date of Service August 05, 2022 Assessment & Plan (1) Severe sepsis: Plan: Severe sepsis with HENRI and liver dysfunction with lactic acidosis/HAGMA - suspected pulmonary source. Sputum gram stain noted, clx pending. Blood clx pending. - CT chest with Tracheostomy cannula in place with mild tracheobronchial secretions. Small left pleural effusion with bibasilar consolidation. Additional centrilobular groundglass nodular opacities are present within the superior segments of the lower lobes. Findings are suggestive of pneumonia versus aspiration. - will start on empiric vanc/zosyn pending sputum and blood clx results. Follow UA. - I discussed with Marquise Elam in detail at bedside regarding ICU admission who spoke to the ICU attending and they recommended PCU admission with closer monitoring at this point considering hemodynamic stability and improvement of ABG on his home vent settings (Repeat ABG 7.48/33/141/99%). If patient decompensates, he will be transferred to ICU. ICU team aware of it. Also spoke to the dam worker hospitalist to follow up on the labs. (2) HERNI (acute kidney injury): Plan: Cr normally <0.2, now 0.5. BUN 4 ->242. AG 27. Received IVF. Recheck. Avoid nephrotoxics. patient recieved contrast in the ED. monitor renal funciton (3) Abnormal LFTs: Plan: likely related to sepsis. CT A/P noted. Recheck in am (4) Lactic acidosis: Plan: lactate improved with IVF resuscitation. (5) High anion gap metabolic acidosis: Plan: from sepsis and HENRI. Received fluids. recheck and monitor. (6) Chronic respiratory failure: (7) Ventilator dependence: Plan: continue home ventilation. Pulm consult (8) Hypokalemia: Plan: repleted. recheck q4hr and replete. (9) ALS (amyotrophic lateral sclerosis): Plan: bedbound with quadriplegia, has trach on vent. continue vent support. continue home riluzole (10) Left ventricular systolic dysfunction: Plan: dry, continue ivf with sepsis, monitor volume status closely (11) Pseudocyst of pancreas: Plan: CT with resolving acute pancreatitis with decreasing size of pseudocysts. Plan DVT ppx- sc lovenox Dispo- PCU on tele. Transfer to ICU if decompensation. ICU team and dam worker aware. Updated at bedside Full code History of Present Illness Chief Complaint: lethargy, bloody mucus tracheal secretion Primary Care Provider: Karen Juniorge 36-year-old male with PMH ALS trach, ventilator, PEG tube dependent, chronic pancreatitis, and other problems listed below who presents the ED for concern for sepsis. Patient is nonverbal but communicates with ipad and currently lethargic. History taken from at bedside. Patient was recently admitted to our hospital from 06/10-06/16 for infected pancreatic pseudocyst and was transferred to [facility] from where he was discharged on 06/21 on cipro which he completed a month ago. He was doing fine until Friday when he started getting lethargic. He was also noted to have blood tracheal suction, which is now mucusy and changing colors. He was brought to ED for concern of sepsis. Denies any fever, nausea, vomiting. No other issues. In the ED, he was afebrile hemodynamically stable. Pertinent labs include WBC 27, lactate 3.9, procal 1.28, K 2.5. ABG 7.65/23/25/99 % on 2 L. AST 40, ALT 81, ALP 471, AG 27. CT A/P 1. Gastrojejunostomy tube in place with decreased gastric wall thickening compared to the prior exam. 2. Resolving acute pancreatitis with decreased size of the numerous peripancreatic fluid collections suggestive of pseudocysts. 3. Small left pleural effusion with dependent bibasilar airspace opacities favoring atelectasis. 4. 4 mm left renal calculus. No ureteral calculi or hydronephrosis. 5. No bowel obstruction or bowel wall thickening. 6. Additional findings as above Allergies Allergy/AdvReac Type Severity Reaction Status Date / Time No Known Allergies Allergy Verified 05/07/22 19:50 Home Medications Medication Instructions Recorded Confirmed Type acetaminophen 160 mg/5 mL oral 640 mg feeding tube Q6 PRN Pain, 05/07/22 06/10/22 History liquid (Children's Acetaminophen) Moderate atropine 1 % eye drops 1 drp sublingual QID PRN increased 05/07/22 06/10/22 History secretions cholecalciferol (vitamin D3) 25 1,000 unit feeding tube DAILY 05/07/22 06/10/22 History mcg (1,000 unit) capsule (Vitamin D3) ibuprofen 100 mg/5 mL oral 400 mg feeding tube Q6 PRN Pain, 05/07/22 06/10/22 History suspension Moderate melatonin 3 mg tablet 3 - 6 mg PO HS PRN Sleep 05/07/22 06/10/22 History nystatin 100,000 unit/gram topical 1 applic topical DAILY PRN Rash 05/07/22 06/10/22 History powder tramadol 50 mg tablet 50 mg feeding tube Q6H PRN Pain 05/07/22 06/10/22 History zinc oxide 20 % topical ointment 1 applic topical TID 05/07/22 06/10/22 History A,D-aloe rylz-lsfdbmmpwk-g.pet 1 ea topical BID PRN scrotal area 06/10/22 06/10/22 History topical ointment carboxymethylcellulose sodium 0.5 1 drp ophthalmic (eye) UD PRN Dry 06/10/22 06/10/22 History % eye drops Eye(S) dextran 70-hypromellose (PF) 0.1 1 drp OPB QID 06/10/22 06/10/22 History %-0.3 % eye drops in a dropperette (Artificial Tears (PF)) famotidine 40 mg/5 mL (8 mg/mL) 20 mg feeding tube BID PRN 06/10/22 06/10/22 History oral suspension Indigestion guaifenesin 100 mg/5 mL oral liquid 200 mg feeding tube BID PRN Cough 06/10/22 06/10/22 History ipratropium bromide 21 mcg (0.03 2 spray intranasal TID 06/10/22 06/10/22 History %) nasal spray lidocaine 5 % topical ointment 1 applic topical BID PRN Pain 06/10/22 06/10/22 History midodrine 5 mg tablet 5 mg feeding tube TID 06/10/22 06/10/22 History nut.tx impaired digestive 1 ea feeding tube UD 06/10/22 06/10/22 History fxn-fiber 0.07 gram-1.5 kcal/mL oral liquid (Vital 1.5 Cali) polyethylene glycol 3350 17 17 g feeding tube DAILY PRN 06/10/22 06/10/22 History gram/dose oral powder (Miralax) Constipation riluzole 50 mg tablet 50 mg feeding tube DAILY 06/10/22 06/10/22 History senna leaf extract 176 mg/5 mL 15 ml feeding tube BID PRN 06/10/22 06/10/22 History oral syrup (senna) Constipation white petrolatum-mineral oil 57.3 1 applic ophthalmic (eye) HS 06/10/22 06/10/22 History %-42.5 % eye ointment (Lubricant Eye) lansoprazole 15 mg delayed 15 mg PO DAILY #0 tabs 06/16/22 Rx release,disintegrating tablet (Prevacid SoluTab) Past Med/Surg History Medical History ALS (amyotrophic lateral sclerosis) DX FEBRUARY 2014 Atrial fibrillation with RVR isolated hx of, no further reoccurances Cardiac murmur AN INFANT Dry eye syndrome Left ventricular systolic dysfunction Sleep apnea USES APAP DEVICE (DX WITH ALS) ALWAYS USING >WITH 3L AT HS ONLY Slow gastric motility D/T ALS Uses feeding tube SYRINGE FEEDING THRU PEG TUBE (STILL SWALLOWS PILLS ORALLY) Surgical History History of esophagogastroduodenoscopy (EGD) History of herniorrhaphy History of tooth extraction Hx of LASIK PRK S/P percutaneous endoscopic gastrostomy (PEG) tube placement Family History Mother Family history of diabetes mellitus Other No family history of adverse response to anesthesia Social History Smoking Status: Unknown if ever smoked Second Hand Exposure: No; Hx Alcohol Use: No Hx Substance Use: Yes Last Used Substance: Unknown Substance Use Type Other:: Medical Marijuana SL or salve Preferred Language: [place] Leone[place] Communication Ability: Unable Corn Detasseler Required: No Beliefs That Will Affect Care: None marital status: Current Living Situation: Spouse and Family Current Living Situation Comment: AND 3 SONS How many Children do You have: 3 Feels Safe at Home: Yes Assistive Devices: Hospital Bed, Mechanical Lift and Scooter/Electric Scooter Review of Systems Review of Systems: All systems reviewed & are unremarkable except as noted in HPI & below Physical Exam Physical Exam: General: Lying in bed, lethargic, on trach and home vent, not in acute distress HEENT: EOMI, dry Chest: Decreased breath sounds anteriorly CVS: Tachycardic, normal heart sounds, no murmur Abdomen: Soft, non tender, gastric drain in place, BS + Neuro: lethargic but awake, follows commands, non verbal Extremities: No cyanosis, clubbing or edema Results & Data Results & Data ([facility]) Vital Signs (Past 12 Hours) Vital Signs Temp Pulse Pulse Resp BP BP Pulse Ox 08/05/22 17:52 107 H 20 107/75 100 08/05/22 14:48 36.1 C L 08/05/22 14:37 08/05/22 14:20 115 H 23 99/79 L 100 O2 Del Method 08/05/22 17:52 Trach Collar 08/05/22 14:48 08/05/22 14:37 Mechanical Vent 08/05/22 14:20 Laboratory Results Short CBC 08/05/22 Range/Units 13:30 WBC 27.51 H (4.8-10.8) K/ul Hgb 14.2 (14.0-18.0) g/dl Hct 41.6 (40.1-51.0) % Plt Count 577 H (130-400) K/uL BMP 08/05/22 13:30 Sodium 133 L Potassium 2.5 L* Chloride 81 L Carbon Dioxide 25 BUN 242 H Creatinine 0.50 L Glucose 283 H Calcium 10.6 H Liver Function 08/05/22 Range/Units 13:30 Total Bilirubin 0.5 (0.2-1.0) mg/dl Direct Bilirubin 0.2 (0-0.2) mg/dl AST 40 H (13-39) U/L ALT 81 H (7-52) U/L Alkaline Phosphatase 471 H (34-104) U/L Albumin 4.7 (3.4-5.0) gm/dl Urine 08/05/22 Range/Units 16:50 Urine Color Yellow Urine Appearance Clear (Clear) Urine pH 5.0 (4.5-7.5) Ur Specific [place] 1.016 (1.000-1.030) Urine Protein 1+ H (Negative) Urine Glucose (UA) Negative (Negative) Diagnostic Findings Chest X-Ray 08/05/22 14:29 XR chest 1V portable HISTORY: Sepsis COMPARISON: Chest 06/11/2022. FINDINGS: The tracheostomy tube appears in good position. There are low lung volumes. There are bibasilar linear densities and small bilateral pleural effusions, unchanged. The heart remains top normal in size. No evidence for pulmonary edema. The upper lung zones are clear. IMPRESSION: 1. No change in the small bilateral pleural effusions and bibasilar densities. 2. Tracheostomy tube appears in good position. ACT 112: Negative or not required by law. Electronically signed by: Tony Roldan M.D. 08/05/2022 3:10 PM Abdomen/Pelvis CT 08/05/22 16:[address] WITH IV CONTRAST CT DOSE: 859.45 mGy.cm HISTORY: Acute sepsis in a patient with pancreatic pseudocysts sepsis hx of infected pseudocyst TECHNIQUE: Multiaxial CT images of the abdomen and pelvis were performed following the IV administration of 93 cc of Optiray, A dose lowering technique was utilized adhering to the principles of ALARA. COMPARISON STUDY: CT abdomen and pelvis 06/15/2022 FINDINGS: Small left pleural effusion has decreased in size from the prior study. Dependent bibasilar consolidation. No pneumatosis or pneumoperitoneum. Unremarkable spleen, gallbladder, and adrenal glands. Hepatic steatosis with mild right hemidiaphragmatic elevation. Patency of the hepatic and portal veins. The splenic vein is attenuated however is patent. There is decreased interstitial and peripancreatic inflammation compared to the prior exam with decreased abdominal ascites. Peripancreatic fluid collections have also decreased in size from the prior study, now at the largest measuring 3.8 cm adjacent to the pancreatic tail. Tiny fluid collections are again noted extending along the stomach and transverse colon. Embolization coils are noted adjacent to the distal stomach and pancreatic head. Gastrojejunostomy tube is in place. Decreased gastric wall thickening. 4 mm nonobstructing calculus of the superior pole left kidney. No ureteral calculi or hydronephrosis identified. Layering hyperdensity within the urinary bladder may represent stone fragments. Mild urinary bladder distention. Aorta and IVC appear unchanged. There is marked diffuse muscle atrophy. No bowel obstruction or bowel wall thickening. Normal appendix. No acute fracture. Demineralized appearance of the bones. IMPRESSION: 1. Gastrojejunostomy tube in place with decreased gastric wall thickening compared to the prior exam. 2. Resolving acute pancreatitis with decreased size of the numerous peripancreatic fluid collections suggestive of pseudocysts. 3. Small left pleural effusion with dependent bibasilar airspace opacities favoring atelectasis. 4. 4 mm left renal calculus. No ureteral calculi or hydronephrosis. 5. No bowel obstruction or bowel wall thickening. 6. Additional findings as above. ACT 112: Negative or not required by law. The above report was generated using voice recognition software. It may contain grammatical, syntax or spelling errors. Electronically signed by: James Brody M.D. 08/05/2022 6:43 PM
[2022-08-05] MEDS: NSS + 20MEQ KCL 20 MEQ/1,000 ML BAG IV SCH (20:21)
--- NOTE | 2022-08-05 20:35 | CT Scan Report ---
CT chest diagnostic wo con CT DOSE: 454.96 mGy.cm CLINICAL HISTORY: 37 years-old Male with sepsis. R/o PNA. Acute sepsis with clinical concern for pne umonia TECHNIQUE: Multiaxial CT images of the chest were performed without contrast. A dose lowering techni que was utilized adhering to the principles of ALARA. COMPARISON: CT abdomen and pelvis of same day, CTA chest 05/07/2022 FINDINGS: Tracheostomy cannula distal tip terminates above the level the clavicular heads. Fluid within the air way proximal to the cannula. Mild tracheobronchial secretions. No thyroid nodule or lymphadenopathy. The heart is normal in size without pericardial effusion. No thoracic aortic aneurysm. Marked atrophy of the musculature redemonstrated. Small left pleural effusion with dependent bibasilar consolidation. There are additional centrilobula r groundglass nodules in the superior segments of the lower lobes. No overt pulmonary edema or suspic ious pulmonary nodules. Abdominal findings are dictated separately. Unremarkable soft tissues. No acute fracture identified. Unchanged mild thoracolumbar compression deformities. IMPRESSION: 1. Tracheostomy cannula in place with mild tracheobronchial secretions. 2. Small left pleural effusion with bibasilar consolidation. Additional centrilobular groundglass nod ular opacities are present within the superior segments of the lower lobes. Findings are suggestive o f pneumonia versus aspiration. 3. Please refer to the CT abdomen and pelvis study of same day for additional findings. ACT 112: Negative or not required by law. Electronically signed by: James Brody M.D. 08/05/2022 8:33 PM
[2022-08-05 21:18] LABS: iSTAT Arterial Blood Gas HCO3 25 meg/L (19-24); iSTAT Arterial Blood Gas pCO2 33 mmHg (35-46); iSTAT Arterial Blood Gas pH 7.49 (7.35-7.45); iSTAT Arterial Blood Gas pO2 141 mmHg (80-95); iSTAT Carbon Dioxide 26 mmol/L (24-31); iSTAT Hematocrit 34 % (42-52); iSTAT Hemoglobin 11.6 g/dl (14.0-18.0); iSTAT Potassium 2.3 mmol/L (3.3-5.0); iSTAT Sodium 142 mmol/L (135-144)
[2022-08-05 21:18] LABS: iSTAT Arterial Blood Gas HCO3 24 meg/L (19-24); iSTAT Arterial Blood Gas pCO2 31 mmHg (35-46); iSTAT Arterial Blood Gas pH 7.49 (7.35-7.45); iSTAT Arterial Blood Gas pO2 < 32 mmHg (80-95); iSTAT Carbon Dioxide 24 mmol/L (24-31)
[2022-08-05 23:18] LABS: Potassium 2.5 mmol/L (3.5-5.1)
--- NOTE | 2022-08-05 23:42 | Critical Care Consultation ---
Date of Consultation August 05, 2022 Assessment & Plan (1) Ventilator dependence: Secodnary to ALS- home ventilator- Trilogy R 12 VT 620, P5- Fio2 3 liters bled in - Placed on Institution Ventilator for humidification/moisturization - He could be maintained on his home ventilator but will provide humidification in light of increase secretions and frequent suctioning - Follows with [place] in [place] (2) Severe sepsis: - Source with organ dysfunction not in shock- Patient arrives tachycardic, normothermic, normotensive, Noted with elevated WBC count and lactate - Pulmonary source likely however continue to follow abdominal exam and response to therapy - Broad spectrum to include MRSA coverage with frequent hospitalizations- follow cultures- previous culture data for sputum was strep pneumo in 01/20 - Cultures pending- Blood, sputum, urine - pancreatitis appears to be improving- imaging noting pseudocyst without abscess - Lactate 2.3; He was given 2.5 liters of crystalloid in EMD with clearing of his lactate - Renal function improving, glucose improved, lactate cleared, repeat BMP (3) HENRI (acute kidney injury): Increase in SOLE TRIMMER on arrival - improved following resuscitation - BUN remains elevated - HGB 11- consider adding PPI - SOLE TRIMMER improved down to 0.27 following above (4) Hypokalemia: Patient frequently presents with hypokalemia in the setting of acute infection - 2.5 on arrival although done on iSTAT- BMP pending - currently without diarrhea or vomiting - could be related to leukocytosis or decrease intake - improved to 4.3 following repletion by medicine team - medicaiton list reviewed (5) ALS (amyotrophic lateral sclerosis): Follows with [facility] in [place] - continue supportive care Plan As above- will support ventilation and oxygenation, no current need for vasopressor and improved organ function following volume. He is making good urine. Will follow laboratory and response to therapy. Thank you for allowing us to participate in the care of this patient with you. I have personally spent 40 minutes of critical care time in the direct management of this patient. This includes time spent evaluating patient, direct bedside care, chart review, placing orders, interpretation of diagnostic studies, discussion with consultants, patient, and family members, as well as other required patient management activities. This time is exclusive of all separately billable procedures, and teaching time and separate from and in addition to any other critical care service time. History of Present Illness Reason for Consultation: Ventlatior managment Requesting Physician: Raleigh Calvert Attending Physician: Les Escobar History of Present Illness 37 YOM with ALS on home Trilogy Ventilation which he is ventilating and oxygenating appropriately. He was admitted through the EMD today for sepsis. ICU was consulted earlier for ICU admission for sepsis and chronic vent, he was not requiring vasopressors as well as his lactate improved following resuscitation, his respiratory Alkalosis improved and originally admitted to PCU. ICU/Pulmonary consulted for use of our Ventilator while in house secondary to humidification and moisturization of ventilator circuit/air. Patient is with cuffed tracheostomy in place which reports had some leaking earlier in the week. He is noted with fever at home and increase in secretions, fever, somnolence and flushing of his cheeks. In the EMD the patient had routine labs performed and ABG done. This was notable for hypokalemia, leukocytosis, respiratory Alkalosis (which has resolved). He had imaging of his abdomen as he has chronic pancreatitis with pseudocysts present, these are interpreted as improved on imaging. He is noted to have likely pneumonia bilateral lower lobes. He is hemodynamically stable not requiring vasopressors and improvement in organ dysfunction and electrolytes. Place on our ventilator overnight and follow patient clinical course. COVID NEGATIVE on admission Allergies Allergy/AdvReac Type Severity Reaction Status Date / Time No Known Allergies Allergy Verified 05/07/22 19:50 Home Medications Medication Instructions Recorded Confirmed Type acetaminophen 160 mg/5 mL oral 640 mg feeding tube Q6 PRN Pain, 05/07/22 06/10/22 History liquid (Children's Acetaminophen) Moderate atropine 1 % eye drops 1 drp sublingual QID PRN increased 05/07/22 06/10/22 History secretions cholecalciferol (vitamin D3) 25 1,000 unit feeding tube DAILY 05/07/22 06/10/22 History mcg (1,000 unit) capsule (Vitamin D3) ibuprofen 100 mg/5 mL oral 400 mg feeding tube Q6 PRN Pain, 05/07/22 06/10/22 History suspension Moderate melatonin 3 mg tablet 3 - 6 mg PO HS PRN Sleep 05/07/22 06/10/22 History nystatin 100,000 unit/gram topical 1 applic topical DAILY PRN Rash 05/07/22 06/10/22 History powder tramadol 50 mg tablet 50 mg feeding tube Q6H PRN Pain 05/07/22 06/10/22 History zinc oxide 20 % topical ointment 1 applic topical TID 05/07/22 06/10/22 History A,D-aloe yqcm-mztplsjrrw-q.pet 1 ea topical BID PRN scrotal area 06/10/22 06/10/22 History topical ointment carboxymethylcellulose sodium 0.5 1 drp ophthalmic (eye) UD PRN Dry 06/10/22 06/10/22 History % eye drops Eye(S) dextran 70-hypromellose (PF) 0.1 1 drp OPB QID 06/10/22 06/10/22 History %-0.3 % eye drops in a dropperette (Artificial Tears (PF)) famotidine 40 mg/5 mL (8 mg/mL) 20 mg feeding tube BID PRN 06/10/22 06/10/22 History oral suspension Indigestion guaifenesin 100 mg/5 mL oral liquid 200 mg feeding tube BID PRN Cough 06/10/22 06/10/22 History ipratropium bromide 21 mcg (0.03 2 spray intranasal TID 06/10/22 06/10/22 History %) nasal spray lidocaine 5 % topical ointment 1 applic topical BID PRN Pain 06/10/22 06/10/22 History midodrine 5 mg tablet 5 mg feeding tube TID 06/10/22 06/10/22 History nut.tx impaired digestive 1 ea feeding tube UD 06/10/22 06/10/22 History fxn-fiber 0.07 gram-1.5 kcal/mL oral liquid (Vital 1.5 Cali) polyethylene glycol 3350 17 17 g feeding tube DAILY PRN 06/10/22 06/10/22 History gram/dose oral powder (Miralax) Constipation riluzole 50 mg tablet 50 mg feeding tube DAILY 06/10/22 06/10/22 History senna leaf extract 176 mg/5 mL 15 ml feeding tube BID PRN 06/10/22 06/10/22 History oral syrup (senna) Constipation white petrolatum-mineral oil 57.3 1 applic ophthalmic (eye) HS 06/10/22 06/10/22 History %-42.5 % eye ointment (Lubricant Eye) lansoprazole 15 mg delayed 15 mg PO DAILY #0 tabs 06/16/22 Rx release,disintegrating tablet (Prevacid SoluTab) Patient History Medical History ALS (amyotrophic lateral sclerosis) DX FEBRUARY 2014 Atrial fibrillation with RVR isolated hx of, no further reoccurances Cardiac murmur AN Dry eye syndrome Left ventricular systolic dysfunction Sleep apnea USES APAP DEVICE (DX WITH ALS) ALWAYS USING >WITH 3L AT HS ONLY Slow gastric motility D/T ALS Uses feeding tube SYRINGE FEEDING THRU PEG TUBE (STILL SWALLOWS PILLS ORALLY) Surgical History History of esophagogastroduodenoscopy (EGD) History of herniorrhaphy History of tooth extraction Hx of LASIK PRK S/P percutaneous endoscopic gastrostomy (PEG) tube placement Family History Mother Family history of diabetes mellitus Other No family history of adverse response to anesthesia Social History Smoking Status: Never smoker Second Hand Exposure: No; Hx Alcohol Use: No Hx Substance Use: Yes Last Used Substance: Unknown Substance Use Type Other:: Medical Marijuana SL or salve Preferred Language: Congolese Communication Ability: Impaired Merchandise Collector Required: No Beliefs That Will Affect Care: None marital status: Current Living Situation: Spouse and Family Current Living Situation Comment: AND 3 SONS How many Children do You have: 3 Feels Safe at Home: Yes Assistive Devices: Hospital Bed, Lift Chair, Mechanical Lift, Oxygen - Continuous and Wheelchair Review of Systems Review of Systems: Obtained from (+) fevers, somnolence, increase in secretions, and suctioning Physical Exam Physical Exam: PHYSICAL EXAM: General: Somnolent falls asleep while texting with his eye computer Head: Normocephalic, atraumatic ENT: PERRL, EOMI, no pharyngeal exudate, mucous membranes dry Neuro: AAO x 3, paraplegic Chest: equal rise and fall of the chest, no accessory muscle use, no heaves or thrills,decreased in bases with scattered rhonchi, clear in uppers, trach cuff up- secretions thin stoddard Cardiac: Regular rate and rhythm, telemetry reviewed, skin warm dry, cap refill <3 seconds, peripheral pulses +2 no JVD, no murmur, no JVD, no edema GI: NABS x 4 quadrants, soft, nontender to palpation, no rebound, guarding or tenderness, Gastrojejunostomy tube is in place- with J side draining to gravity : Spontaneously voiding, no pain, no CVA tenderness, Extremities: Normal inspection, no peripheral edema or erythema, calfs nontender to palpation Psych: Normal mood and affect Skin: no rash or erythema Results & Data Results & Data ([facility]) Vital Signs (Past 12 Hours) Vital Signs Temp Pulse Pulse Resp BP BP Pulse Ox 08/05/22 23:11 08/05/22 22:40 109 H 14 100 08/05/22 22:30 110 H 17 100 08/05/22 22:30 104/66 08/05/22 22:20 105 H 15 100 08/05/22 22:10 104 H 13 100 08/05/22 22:00 106 H 12 100 08/05/22 22:00 104/69 08/05/22 21:50 106 H 14 100 08/05/22 21:40 102 H 12 100 08/05/22 21:30 102 H 14 100 08/05/22 21:30 108/74 08/05/22 21:20 103 H 14 100 08/05/22 21:10 104 H 15 100 08/05/22 21:00 103 H 15 100 08/05/22 21:00 108/79 08/05/22 20:50 106 H 12 08/05/22 20:40 103 H 13 08/05/22 20:30 102 H 12 08/05/22 20:24 102 H 14 08/05/22 19:40 109 H 20 100 08/05/22 19:30 105 H 17 100 08/05/22 19:30 136/81 08/05/22 19:20 103 H 17 100 08/05/22 19:10 106 H 19 100 08/05/22 19:00 106 H 19 100 08/05/22 19:00 111/75 08/05/22 18:50 108 H 21 100 08/05/22 18:40 110 H 22 100 08/05/22 18:30 113 H 23 100 08/05/22 18:30 96/65 L 08/05/22 18:23 100/66 08/05/22 18:23 112 H 22 100 08/05/22 18:20 112 H 22 08/05/22 18:14 111 H 22 08/05/22 17:50 107 H 20 100 08/05/22 17:40 109 H 24 100 08/05/22 17:30 108 H 16 100 08/05/22 17:30 107/75 08/05/22 17:20 111 H 20 98 08/05/22 17:10 111 H 20 100 08/05/22 17:00 109 H 22 100 08/05/22 17:00 109/74 08/05/22 16:50 111 H 22 100 08/05/22 16:40 112 H 22 100 08/05/22 16:30 109 H 19 100 08/05/22 16:30 116/74 08/05/22 16:20 112 H 22 100 08/05/22 16:10 115 H 21 100 08/05/22 16:00 100 08/05/22 16:00 106/81 08/05/22 15:56 100 08/05/22 15:56 108/81 08/05/22 15:50 100 08/05/22 15:40 114 H 100 08/05/22 15:30 113 H 18 100 08/05/22 15:20 115 H 23 100 08/05/22 15:11 112 H 24 100 08/05/22 15:04 117/92 08/05/22 15:04 115 H 23 99 08/05/22 15:00 115 H 23 100 08/05/22 14:50 121 H 24 100 08/05/22 14:40 116 H 21 98 08/05/22 14:30 112 H 22 99 08/05/22 14:30 128/79 08/05/22 14:22 115 H 23 08/05/22 17:52 107 H 20 107/75 100 08/05/22 14:48 36.1 C L 08/05/22 14:37 08/05/22 14:20 115 H 23 99/79 L 100 O2 Del Method 08/05/22 23:11 Mechanical Vent 08/05/22 22:40 Mechanical Vent 08/05/22 22:30 Mechanical Vent 08/05/22 22:30 Mechanical Vent 08/05/22 22:20 Mechanical Vent 08/05/22 22:10 Mechanical Vent 08/05/22 22:00 Mechanical Vent 08/05/22 22:00 Mechanical Vent 08/05/22 21:50 Mechanical Vent 08/05/22 21:40 Mechanical Vent 08/05/22 21:30 Mechanical Vent 08/05/22 21:30 Mechanical Vent 08/05/22 21:20 Mechanical Vent 08/05/22 21:10 Mechanical Vent 08/05/22 21:00 Mechanical Vent 08/05/22 21:00 Mechanical Vent 08/05/22 20:50 Mechanical Vent 08/05/22 20:40 Mechanical Vent 08/05/22 20:30 Mechanical Vent 08/05/22 20:24 Mechanical Vent 08/05/22 19:40 Mechanical Vent 08/05/22 19:30 Mechanical Vent 08/05/22 19:30 Mechanical Vent 08/05/22 19:20 Mechanical Vent 08/05/22 19:10 Mechanical Vent 08/05/22 19:00 Mechanical Vent 08/05/22 19:00 Mechanical Vent 08/05/22 18:50 Mechanical Vent 08/05/22 18:40 Mechanical Vent 08/05/22 18:30 Mechanical Vent 08/05/22 18:30 Mechanical Vent 08/05/22 18:23 Mechanical Vent 08/05/22 18:23 Mechanical Vent 08/05/22 18:20 Mechanical Vent 08/05/22 18:14 Mechanical Vent 08/05/22 17:50 Mechanical Vent 08/05/22 17:40 Mechanical Vent 08/05/22 17:30 Mechanical Vent 08/05/22 17:30 Mechanical Vent 08/05/22 17:20 Mechanical Vent 08/05/22 17:10 Mechanical Vent 08/05/22 17:00 Mechanical Vent 08/05/22 17:00 Mechanical Vent 08/05/22 16:50 Mechanical Vent 08/05/22 16:40 Mechanical Vent 08/05/22 16:30 Mechanical Vent 08/05/22 16:30 Mechanical Vent 08/05/22 16:20 Mechanical Vent 08/05/22 16:10 Mechanical Vent 08/05/22 16:00 Mechanical Vent 08/05/22 16:00 Mechanical Vent 08/05/22 15:56 Mechanical Vent 08/05/22 15:56 Mechanical Vent 08/05/22 15:50 Mechanical Vent 08/05/22 15:40 Mechanical Vent 08/05/22 15:30 Mechanical Vent 08/05/22 15:20 Mechanical Vent 08/05/22 15:11 Mechanical Vent 08/05/22 15:04 Mechanical Vent 08/05/22 15:04 Mechanical Vent 08/05/22 15:00 Mechanical Vent 08/05/22 14:50 Mechanical Vent 08/05/22 14:40 Mechanical Vent 08/05/22 14:30 Mechanical Vent 08/05/22 14:30 Mechanical Vent 08/05/22 14:22 Mechanical Vent 08/05/22 17:52 Trach Collar 08/05/22 14:48 08/05/22 14:37 Mechanical Vent 08/05/22 14:20 Laboratory Results Abnormal lab results 08/05/22 08/05/22 08/05/22 Range/Units 13:30 13:30 13:30 WBC 27.51 H (4.8-10.8) K/ul POC Hgb (14.0-18.0) g/dl POC Hct (42-52) % RDW Std Deviation 48.2 H (36.4-46.3) fL RDW Coeff of Aissatou 15.3 H (11.5-14.5) % Plt Count 577 H (130-400) K/uL Neut # (Auto) 25.11 H (1.4-6.5) K/uL Tama # (Auto) 0.86 H (0.24-0.82) K/uL Immature Gran # (Auto) 0.24 H (0.00-0.02) K/uL POC pH (7.35-7.45) POC pCO2 (35-46) mmHg POC pO2 (80-95) mmHg POC HCO3 (19-24) allison/L POC Base Excess (-9-1.8) allison/L ABG pH (7.35-7.45) ABG pCO2 (35-46) mmHg ABG HCO3 (19-24) mmol/L POC ABG O2 Sat (90-95) % ABG O2 Saturation (90-95) % ABG Base Excess (-9-1.8) mEq/L Sodium 133 L (136-145) mmol/L POC Potassium (3.3-5.0) mmol/L Potassium 2.5 L* (3.5-5.1) mmol/L Chloride 81 L (98-107) mmol/L Anion Gap 27 H (3-11) BUN 242 H (6-23) mg/dl Creatinine 0.50 L (0.6-1.4) mg/dl BUN/Creatinine Ratio 484.0 H (10-20) Glucose 283 H (70-99(Fasting)) mg/dl Lactate (0.4-2.0) mmol/L Calcium 10.6 H (8.5-10.1) mg/dl Magnesium 3.6 H (1.7-2.4) mg/dl AST 40 H (13-39) U/L ALT 81 H (7-52) U/L Alkaline Phosphatase 471 H (34-104) U/L Total Protein 9.0 H (6.0-8.3) gm/dl Lipase (11-82) U/L Procalcitonin 1.28 H (0-0.5) ng/ml Urine Protein (Negative) Urine RBC (Auto) (0-4) /hpf U Hyaline Cast (Auto) (0-5) /lpf U Epithel Cells (Auto) (0-5) /lpf 08/05/22 08/05/22 08/05/22 Range/Units 13:30 15:00 15:07 WBC (4.8-10.8) K/ul POC Hgb (14.0-18.0) g/dl POC Hct (42-52) % RDW Std Deviation (36.4-46.3) fL RDW Coeff of Aissatou (11.5-14.5) % Plt Count (130-400) K/uL Neut # (Auto) (1.4-6.5) K/uL Tama # (Auto) (0.24-0.82) K/uL Immature Gran # (Auto) (0.00-0.02) K/uL POC pH (7.35-7.45) POC pCO2 (35-46) mmHg POC pO2 (80-95) mmHg POC HCO3 (19-24) allison/L POC Base Excess (-9-1.8) allison/L ABG pH 7.65 H* (7.35-7.45) ABG pCO2 23 L (35-46) mmHg ABG HCO3 25 H (19-24) mmol/L POC ABG O2 Sat (90-95) % ABG O2 Saturation 99.5 H (90-95) % ABG Base Excess 5.9 H (-9-1.8) mEq/L Sodium (136-145) mmol/L POC Potassium (3.3-5.0) mmol/L Potassium (3.5-5.1) mmol/L Chloride (98-107) mmol/L Anion Gap (3-11) BUN (6-23) mg/dl Creatinine (0.6-1.4) mg/dl BUN/Creatinine Ratio (10-20) Glucose (70-99(Fasting)) mg/dl Lactate 3.9 H* (0.4-2.0) mmol/L Calcium (8.5-10.1) mg/dl Magnesium (1.7-2.4) mg/dl AST (13-39) U/L ALT (7-52) U/L Alkaline Phosphatase (34-104) U/L Total Protein (6.0-8.3) gm/dl Lipase 135 H (11-82) U/L Procalcitonin (0-0.5) ng/ml Urine Protein (Negative) Urine RBC (Auto) (0-4) /hpf U Hyaline Cast (Auto) (0-5) /lpf U Epithel Cells (Auto) (0-5) /lpf 08/05/22 08/05/22 08/05/22 Range/Units 16:50 20:29 20:50 WBC (4.8-10.8) K/ul POC Hgb 11.6 L (14.0-18.0) g/dl POC Hct 34 L (42-52) % RDW Std Deviation (36.4-46.3) fL RDW Coeff of Aissatou (11.5-14.5) % Plt Count (130-400) K/uL Neut # (Auto) (1.4-6.5) K/uL Tama # (Auto) (0.24-0.82) K/uL Immature Gran # (Auto) (0.00-0.02) K/uL POC pH 7.49 H 7.49 H (7.35-7.45) POC pCO2 31 L 33 L (35-46) mmHg POC pO2 < 32 L 141 H (80-95) mmHg POC HCO3 25 H (19-24) allison/L POC Base Excess 2.0 H (-9-1.8) allison/L ABG pH (7.35-7.45) ABG pCO2 (35-46) mmHg ABG HCO3 (19-24) mmol/L POC ABG O2 Sat 61.0 L 99.0 H (90-95) % ABG O2 Saturation (90-95) % ABG Base Excess (-9-1.8) mEq/L Sodium (136-145) mmol/L POC Potassium 2.3 L* (3.3-5.0) mmol/L Potassium (3.5-5.1) mmol/L Chloride (98-107) mmol/L Anion Gap (3-11) BUN (6-23) mg/dl Creatinine (0.6-1.4) mg/dl BUN/Creatinine Ratio (10-20) Glucose (70-99(Fasting)) mg/dl Lactate (0.4-2.0) mmol/L Calcium (8.5-10.1) mg/dl Magnesium (1.7-2.4) mg/dl AST (13-39) U/L ALT (7-52) U/L Alkaline Phosphatase (34-104) U/L Total Protein (6.0-8.3) gm/dl Lipase (11-82) U/L Procalcitonin (0-0.5) ng/ml Urine Protein 1+ H (Negative) Urine RBC (Auto) 5-10 H (0-4) /hpf U Hyaline Cast (Auto) 5-10 H (0-5) /lpf U Epithel Cells (Auto) 5-10 H (0-5) /lpf Diagnostic Findings Chest X-Ray 08/05/22 14:29 XR chest 1V portable HISTORY: Sepsis COMPARISON: Chest 06/11/2022. FINDINGS: The tracheostomy tube appears in good position. There are low lung volumes. There are bibasilar linear densities and small bilateral pleural effusions, unchanged. The heart remains top normal in size. No evidence for pulmonary edema. The upper lung zones are clear. IMPRESSION: 1. No change in the small bilateral pleural effusions and bibasilar densities. 2. Tracheostomy tube appears in good position. ACT 112: Negative or not required by law. Electronically signed by: Tony Roldan M.D. 08/05/2022 3:10 PM Abdomen/Pelvis CT 08/05/22 16:[address] WITH IV CONTRAST CT DOSE: 859.45 mGy.cm HISTORY: Acute sepsis in a patient with pancreatic pseudocysts sepsis hx of infected pseudocyst TECHNIQUE: Multiaxial CT images of the abdomen and pelvis were performed following the IV administration of 93 cc of Optiray, A dose lowering technique was utilized adhering to the principles of ALARA. COMPARISON STUDY: CT abdomen and pelvis 06/15/2022 FINDINGS: Small left pleural effusion has decreased in size from the prior study. Dependent bibasilar consolidation. No pneumatosis or pneumoperitoneum. Unremarkable spleen, gallbladder, and adrenal glands. Hepatic steatosis with mild right hemidiaphragmatic elevation. Patency of the hepatic and portal veins. The splenic vein is attenuated however is patent. There is decreased interstitial and peripancreatic inflammation compared to the prior exam with decreased abdominal ascites. Peripancreatic fluid collections have also decreased in size from the prior study, now at the largest measuring 3.8 cm adjacent to the pancreatic tail. Tiny fluid collections are again noted extending along the stomach and transverse colon. Embolization coils are noted adjacent to the distal stomach and pancreatic head. Gastrojejunostomy tube is in place. Decreased gastric wall thickening. 4 mm nonobstructing calculus of the superior pole left kidney. No ureteral calculi or hydronephrosis identified. Layering hyperdensity within the urinary bladder may represent stone fragments. Mild urinary bladder distention. Aorta and IVC appear unchanged. There is marked diffuse muscle atrophy. No bowel obstruction or bowel wall thickening. Normal appendix. No acute fracture. Demineralized appearance of the bones. IMPRESSION: 1. Gastrojejunostomy tube in place with decreased gastric wall thickening compared to the prior exam. 2. Resolving acute pancreatitis with decreased size of the numerous peripancreatic fluid collections suggestive of pseudocysts. 3. Small left pleural effusion with dependent bibasilar airspace opacities favoring atelectasis. 4. 4 mm left renal calculus. No ureteral calculi or hydronephrosis. 5. No bowel obstruction or bowel wall thickening. 6. Additional findings as above. ACT 112: Negative or not required by law. The above report was generated using voice recognition software. It may contain grammatical, syntax or spelling errors. Electronically signed by: James Brody M.D. 08/05/2022 6:[address] 08/05/22 19:10 CT chest diagnostic wo con CT DOSE: 454.96 mGy.cm CLINICAL HISTORY: 37 years-old Male with sepsis. R/o PNA. Acute sepsis with clinical concern for pneumonia TECHNIQUE: Multiaxial CT images of the chest were performed without contrast. A dose lowering technique was utilized adhering to the principles of ALARA. COMPARISON: CT abdomen and pelvis of same day, CTA chest 05/07/2022 FINDINGS: Tracheostomy cannula distal tip terminates above the level the clavicular heads. Fluid within the airway proximal to the cannula. Mild tracheobronchial secretions. No thyroid nodule or lymphadenopathy. The heart is normal in size without pericardial effusion. No thoracic aortic aneurysm. Marked atrophy of the musculature redemonstrated. Small left pleural effusion with dependent bibasilar consolidation. There are additional centrilobular groundglass nodules in the superior segments of the lower lobes. No overt pulmonary edema or suspicious pulmonary nodules. Abdominal findings are dictated separately. Unremarkable soft tissues. No acute fracture identified. Unchanged mild thoracolumbar compression deformities. IMPRESSION: 1. Tracheostomy cannula in place with mild tracheobronchial secretions. 2. Small left pleural effusion with bibasilar consolidation. Additional centrilobular groundglass nodular opacities are present within the superior segments of the lower lobes. Findings are suggestive of pneumonia versus aspiration. 3. Please refer to the CT abdomen and pelvis study of same day for additional findings. ACT 112: Negative or not required by law. Electronically signed by: James Brody M.D. 08/05/2022 8:33 PM Medications Administered Potassium Chloride/Sodium Chloride (Normal Saline W/20 Meq Kcl) 20 meq in 1,000 mls @ 125 mls/hr IV .Q8H [facility]; Protocol Stop: 09/04/22 16:44 Last Admin: 08/05/22 20:21 Dose: 125 mls/hr Documented By: DEMETRIUS Discontinued Medications Sodium Chloride (Nss 1000ml) 1,000 mls @ 999 mls/hr IV .Q1H1M ONE Stop: 08/05/22 15:29 Last Infusion: 08/05/22 16:11 Dose: 0 mls/hr Documented By: Admin: 08/05/22 14:54 Dose: 999 mls/hr Documented By: DEMETRIUS Sodium Chloride (Nss 1000ml) 1,000 mls @ 999 mls/hr IV .Q1H1M STA Stop: 08/05/22 16:46 Last Infusion: 08/05/22 17:12 Dose: 0 mls/hr Documented By: Admin: 08/05/22 16:09 Dose: 999 mls/hr Documented By: DEMETRIUS Sodium Chloride (Nss 1000ml) 500 mls @ 999 mls/hr IV .Q31M ONE Stop: 08/05/22 17:02 Last Infusion: 08/05/22 18:31 Dose: 0 mls/hr Documented By: Admin: 08/05/22 17:02 Dose: 999 mls/hr Documented By: DEMETRIUS Vancomycin HCl 2,250 mg/ (Sodium Chloride) 545 mls @ 200 mls/hr IV NOW ONE Stop: 08/05/22 19:15 Last Infusion: 08/05/22 21:12 Dose: 0 mls/hr Documented By: Admin: 08/05/22 17:49 Dose: 200 mls/hr Documented By: MITRA Potassium Chloride (K Jose Juan / Wtr) 10 meq in 100 mls @ 100 mls/hr IV Q1H [facility]; Protocol Stop: 08/05/22 18:44 Last Infusion: 08/05/22 19:32 Dose: 0 mls/hr Documented By: Admin: 08/05/22 18:32 Dose: 100 mls/hr Documented By: Infusion: 08/05/22 18:31 Dose: 0 mls/hr Documented By: Admin: 08/05/22 17:02 Dose: 100 mls/hr Documented By: DEMETRIUS Meropenem 500 mg/ Syringe 10 mls @ 2 mls/min IV NOW ONE; Protocol Stop: 08/05/22 17:04 Last Admin: 08/05/22 17:33 Dose: 2 mls/min Documented By: MITRA Ioversol (Ioversol 350 Mg 100ml Prefilled Syringe) 93 ml IV ONCE ONE Stop: 08/05/22 18:13 Last Admin: 08/05/22 18:12 Dose: 93 ml Documented By: DG Morphine Sulfate (Morphine Sulfate 2 Mg/Ml Carp) 2 mg IV NOW STA Stop: 08/05/22 16:00 Last Admin: 08/05/22 16:08 Dose: 2 mg Documented By: DEMETRIUS Potassium Chloride (Potassium Chloride 20 Meq/15 Ml Udc) 40 meq PO NOW STA Stop: 08/05/22 16:35 Last Admin: 08/05/22 17:36 Dose: 40 meq Documented By: MITRA Potassium Chloride (Potassium Chloride 20 Meq/15 Ml Udc) 40 meq PO NOW STA Stop: 08/05/22 22:08 Last Admin: 08/05/22 23:00 Dose: 40 meq Documented By: DEMETRIUS Coding Level of Care Code Critical Care 1st 30-74 mins Diagnoses Ventilator dependence Z99.11 Severe sepsis A41.9; R65.20 HENRI (acute kidney injury) N17.9 Hypokalemia E87.6 ALS (amyotrophic lateral sclerosis) G12.21
[2022-08-06] MEDS ORDERED: NYSTATIN POWDER 15GM BTL EXT PRN (00:06)
[2022-08-06] MEDS ORDERED: [UNRECOGNIZED DRUG - OTHER] feeding tube SCH (00:06)
[2022-08-06] MEDS ORDERED: ATROPINE SULFATE 1% OP SOLN 5 ML BTL SL PRN (00:06)
[2022-08-06] MEDS ORDERED: ENTERAL NUTRITION FORMULA feeding tube SCH (00:06)
[2022-08-06] MEDS ORDERED: FAMOTIDINE SUSP 40 MG/5 ML UDP NG PRN (00:06)
[2022-08-06] MEDS ORDERED: NON-FORMULARY MEDICATION (Zinc Oxide 20 % Ointment) TOP SCH (00:06)
[2022-08-06] MEDS ORDERED: LIDOCAINE 5% OINT 30 GM TUBE TOP PRN (00:06)
[2022-08-06] MEDS ORDERED: PIPERACILLIN/TAZOBACTAM 3.375 GM in DEXTROSE 5% 100 ML IV SCH (00:06)
[2022-08-06] MEDS ORDERED: DEXTRAN HYPROMELLOSE OPB SCH (00:06)
[2022-08-06] MEDS ORDERED: guaiFENesin SUGAR FREE 100 MG/5 ML UDC GT PRN (00:06)
[2022-08-06] MEDS ORDERED: POLYETHYLENE (MIRALAX) 17 GM PACK PEG PRN (00:06)
[2022-08-06] MEDS: ALBUTEROL 0.083% NEBU SOLN 3 ML VIAL NEB PRN ×2 (00:29→08:05)
[2022-08-06 00:32] LABS: Anion Gap 17 (3-11); Blood Urea Nitrogen 145 mg/dl (6-23); Calcium 9.2 mg/dl (8.5-10.1); Carbon Dioxide 21 mmol/L (21-32); Chloride 105 mmol/L (98-107); Creatinine Clr Calc Pharmacy 419.1 ml/min; Est GFR (African American) > 150.0 ml/min; Est GFR (Non-African American) > 150.0 ml/min; Glucose 155 mg/dl (70-99(Fasting)); Potassium 4.3 mmol/L (3.5-5.1); Sodium 143 mmol/L (136-145)
[2022-08-06] MEDS ORDERED: PIPERACILLIN/TAZOBACTAM 4.5 GM in DEXTROSE 5% 100 ML IV ONE (00:45)
[2022-08-06] MEDS: ARTIFICIAL TEARS OP OINT 3.5 GM TUBE OP SCH ×2 (01:11→20:29)
[2022-08-06] MEDS: MIDODRINE HCL 2.5 MG TAB PO SCH ×4 (01:16→17:54)
[2022-08-06] MEDS ORDERED: FAMOTIDINE SUSP 20 MG/2.5 ML UDP NG PRN (02:30)
[2022-08-06] MEDS: VANCOMYCIN HCL 1,500 MG in SODIUM CHLORIDE 0.9% 500 ML IV SCH ×2 (03:13→15:50)
[2022-08-06 04:42] LABS: Basophils # (auto) 0.08 K/uL (0-0.2); Basophils % (auto) 0.3 %; Eosinophils % (auto) 0.3 %; Hematocrit (blood only) 35.4 % (40.1-51.0); Hemoglobin 11.8 g/dl (14.0-18.0); Immature Granulocytes # (auto) 0.22 K/uL (0.00-0.02); Immature Granulocytes % (auto) 0.7 %; Lymphocytes # (auto) 1.21 K/uL (1.2-3.4); Lymphocytes % (auto) 3.9 %; Mean Corpuscular Hemoglobin 29.8 pg (25.0-34.0); Mean Corpuscular Hgb Conc 33.3 g/dL (32.0-36.0); Mean Corpuscular Volume 89.4 fL (80.0-100.0); Monocytes # (auto) 1.42 K/uL (0.24-0.82); Monocytes % (auto) 4.6 %; Neutrophils # (auto) 27.73 K/uL (1.4-6.5); Neutrophils % (auto) 90.2 %; Platelet Count 443 K/uL (130-400); RBC Morphology Unremarkable; RDW Coefficient of Variation 15.6 % (11.5-14.5); RDW Standard Deviation 50.9 fL (36.4-46.3); Red Blood Count 3.96 M/uL (4.63-6.08); White Blood Count 30.76 K/ul (4.8-10.8)
[2022-08-06] MEDS: NSS + 20MEQ KCL 20 MEQ/1,000 ML BAG IV SCH (04:53)
[2022-08-06 04:55] LABS: Alanine Aminotransferase 74 U/L (7-52); Albumin Globulin Ratio 0.9 (0.9-2); Albumin Level 3.6 gm/dl (3.4-5.0); Alkaline Phosphatase 384 U/L (34-104); Anion Gap 16 (3-11); Aspartate Aminotransferase 48 U/L (13-39); BUN Creatinine Ratio 419.2 (10-20); Bilirubin,Total 0.5 mg/dl (0.2-1.0); Blood Urea Nitrogen 109 mg/dl (6-23); Calcium 9.4 mg/dl (8.5-10.1); Carbon Dioxide 23 mmol/L (21-32); Chloride 109 mmol/L (98-107); Creatinine Clr Calc Pharmacy 435.3 ml/min; Est GFR (African American) > 150.0 ml/min; Est GFR (Non-African American) > 150.0 ml/min; Globulin 3.8 gm/dl (2.5-4.0); Glucose 161 mg/dl (70-99(Fasting)); Phosphorus 3.6 mg/dl (2.5-4.9); Potassium 3.7 mmol/L (3.5-5.1); Sodium 148 mmol/L (136-145); Total Protein 7.4 gm/dl (6.0-8.3)
[2022-08-06] MEDS ORDERED: SODIUM CHLORIDE 0.9% 500 ML IV SCH (06:00)
[2022-08-06] MEDS: PIPERACILLIN/TAZOBACTAM 4.5 GM in DEXTROSE 5% 100 ML IV SCH ×3 (06:04→21:25)
[2022-08-06] MEDS ORDERED: POTASSIUM CHLORIDE 20 MEQ/15 ML UDC PO STA (08:00)
[2022-08-06] MEDS: ENOXAPARIN INJ 40 MG/0.4 ML SYR SQ SCH (08:20)
[2022-08-06] MEDS: CHOLECALCIFEROL 1,000 UNITS 25 MCG TAB JT SCH (08:20)
[2022-08-06] MEDS: LANSOPRAZOLE 15 MG SOLTAB PO SCH (08:21)
--- NOTE | 2022-08-06 09:07 | Critical Care Progress Note ---
Date of Service August 06, 2022 Assessment & Plan (1) Ventilator dependence: (2) Severe sepsis: (3) HENRI (acute kidney injury): (4) ALS (amyotrophic lateral sclerosis): Plan CT chest 08/05/2022 personally reviewed: Secretions appreciated superior to the trachea and the vallecula, minimal tracheal secretions appreciated on the posterior wall Mild bilateral pleural effusion, dependent atelectasis bilateral lower lobes No significant mediastinal lymphadenopathy -- Vent dependent respiratory failure Secondary to underlying diagnosis of ALS Continue with vent support Patient does not have any significant change from his baseline vent settings -- Sepsis Looking at the CT chest I do not feel that pulmonary is the source of sepsis Patient does have history of pancreatic cyst which grew E. coli in the past s/p treatment Procalcitonin Continue with broad-spectrum antibiotics for the time being -- Hypotension Responded to fluid Patient is also on midodrine chronically 5 mg 3 times daily, continue with same Continue monitor MAP, keep greater than 65 if it is persistently low then start vasopressors --Transaminitis Elevated AST/ALT as well as alk phos Patient has chronic elevation of alk phos Mild transaminitis is likely from underlying hypertension that the patient presented with Continue to monitor --Elevated BUN With almost normal creatinine level Patient is not on steroids at home ? High-protein in diet/feeding H&H is also stable unlikely to be upper GI bleed --ALS Continue with riluzole --Prophylaxis VTE: Lovenox GI: Lansoprazole Lines: Peripheral, G-J-tube Diet: Tube feeds Plan: In/out: +4 L, urine output 1400 mL ABG from today shows pH of 7.49 I will go down on the patient's tidal volume to 530 and increase the respiratory rate to 14. I would add fungal coverage and get fungal culture. Patient is high risk for fungemia given the multiple intervention done on his belly and history of necrotizing pancreatitis Continue with broad-spectrum antibiotics for the time being. DC IV fluids containing NS. Give 250 mL every 4 hours of free water flushes Potassium being replaced Hypertonic saline nebulized will be added Patient does have some secretion about the trachea. I discussed with RT to suction it if they are able to do it nasally, deep suctioning if not then we will use portable bronc to suction the secretions Please note the above document was generated using voice recognition software. It may contain grammatical, syntax or spelling errors.Any formal questions or concerns about the content, text or information contained within the body of this dictation should be directly addressed to the provider for clarification. Admission and Anticipated Discharge Date Admission Date: August 05, 2022 Subjective Patient seen and examined at bedside. No acute distress, no adverse events overnight. Patient talks with the help of a computer He denied any headache, no shortness of breath, no nausea vomiting He was asking for cranberry juice through the PEG tube. Has been afebrile since coming to the hospital for Blood pressure was in the systolic 100s with heart rate in the 100s as well He was saturating 99% on 30% FiO2 Review of Systems Review of Systems: All systems reviewed & are unremarkable except as noted in Subjective Physical Exam Physical Exam: Constitutional: No acute distress HEENT: PERRLA, positive trach Respiratory system: Decreased air entry bilaterally, no wheeze, no rhonchi, mild crackles bilateral lower lobes CVS: S1-S2 positive, no murmurs or gallops Abdomen: Soft, nontender, nondistended, positive bowel sounds x4, positive G-J tube Extremities: +2 pulses bilaterally radialis/ dorsalis pedis, no cyanosis, +1 pitting edema bilateral lower extremity Neuro: Awake alert oriented to self and place Psych: Normal mood and affect G/U: Positive V[place]la Musculoskeletal: Stage I-II decubitus ulcer Skin: no rashes, warm and dry Lymphatic: no cervical or axillary lymphadenopathy Results & Data Results & Data ([facility]) Vital Signs (Past 12 Hours) Vital Signs Temp Pulse Pulse Resp BP BP Pulse Ox 08/06/22 07:48 109 H 12 100 08/06/22 07:00 108 H 08/06/22 06:30 37.1 C 111 H 12 100 08/06/22 06:20 37.1 C 112 H 12 100 08/06/22 06:10 37.1 C 112 H 12 100 08/06/22 06:00 37.0 C 113 H 12 100 08/06/22 06:00 88/60 L 08/06/22 05:50 37.0 C 111 H 12 100 08/06/22 05:40 36.9 C 109 H 12 100 08/06/22 05:30 37.0 C 115 H 12 100 08/06/22 05:20 37.0 C 117 H 10 L 100 08/06/22 05:10 36.9 C 113 H 12 100 08/06/22 05:00 36.8 C 111 H 12 100 08/06/22 05:00 94/65 L 08/06/22 04:50 36.8 C 109 H 11 L 100 08/06/22 04:40 36.8 C 111 H 12 100 08/06/22 04:30 36.8 C 112 H 12 100 08/06/22 04:20 36.8 C 111 H 10 L 100 08/06/22 04:10 36.9 C 115 H 12 99 08/06/22 04:00 36.8 C 110 H 12 100 08/06/22 04:00 99/54 L 08/06/22 03:50 36.8 C 110 H 10 L 100 08/06/22 03:40 36.9 C 110 H 12 99 08/06/22 03:30 36.9 C 111 H 12 99 08/06/22 03:20 36.9 C 113 H 10 L 99 08/06/22 03:10 37.0 C 113 H 12 99 08/06/22 03:00 37.0 C 113 H 12 98 08/06/22 03:00 86/55 L 08/06/22 02:50 37.1 C 118 H 11 L 97 08/06/22 02:40 37.1 C 118 H 1 L 98 08/06/22 02:30 37.1 C 117 H 12 98 08/06/22 02:20 37.1 C 113 H 12 100 08/06/22 04:00 08/06/22 01:00 08/06/22 03:15 107 H 12 100 08/06/22 02:10 37.1 C 116 H 12 100 08/06/22 02:00 37.1 C 114 H 12 100 08/06/22 02:00 92/53 L 08/06/22 02:00 08/06/22 01:50 37.0 C 113 H 12 100 08/06/22 01:40 36.9 C 113 H 12 100 08/06/22 01:30 36.9 C 113 H 12 100 08/06/22 01:20 36.9 C 116 H 12 100 08/06/22 01:10 36.9 C 115 H 12 100 08/06/22 01:00 36.8 C 116 H 12 100 10/04/22 01:00 83/56 L 08/06/22 00:50 36.7 C 116 H 12 100 08/06/22 00:40 36.6 C 114 H 12 100 08/06/22 00:30 36.6 C 112 H 12 100 08/06/22 00:20 36.6 C 111 H 4 L 100 08/06/22 00:10 36.5 C 110 H 12 100 08/06/22 00:00 36.5 C 111 H 12 100 08/06/22 00:00 109/63 08/05/22 23:50 36.5 C 112 H 15 100 08/05/22 23:45 103/69 08/05/22 23:45 36.4 C L 110 H 12 100 08/05/22 23:40 36.4 C L 108 H 14 100 08/05/22 23:33 11 L 08/05/22 23:22 80 L 08/05/22 23:10 112 H 15 99 08/05/22 23:00 108 H 17 100 08/05/22 23:00 100/59 L 08/05/22 22:50 104 H 13 100 08/06/22 00:48 36.7 C 116 H 20 109/63 100 08/06/22 00:29 107 H 12 100 08/06/22 00:08 110 H 12 100 08/05/22 23:11 08/05/22 22:40 109 H 14 100 08/05/22 22:30 110 H 17 100 08/05/22 22:30 104/66 08/05/22 22:20 105 H 15 100 08/05/22 22:10 104 H 13 100 08/05/22 22:00 106 H 12 100 08/05/22 22:00 104/69 08/05/22 21:50 106 H 14 100 08/05/22 21:40 102 H 12 100 08/05/22 21:30 102 H 14 100 08/05/22 21:30 108/74 08/05/22 21:20 103 H 14 100 08/05/22 21:10 104 H 15 100 08/05/22 21:00 103 H 15 100 08/05/22 21:00 108/79 O2 Del Method FiO2 08/06/22 07:48 30 08/06/22 07:00 08/06/22 06:30 08/06/22 06:20 08/06/22 06:10 08/06/22 06:00 08/06/22 06:00 08/06/22 05:50 08/06/22 05:40 08/06/22 05:30 08/06/22 05:20 08/06/22 05:10 08/06/22 05:00 08/06/22 05:00 08/06/22 04:50 08/06/22 04:40 08/06/22 04:30 08/06/22 04:20 08/06/22 04:10 08/06/22 04:00 08/06/22 04:00 08/06/22 03:50 08/06/22 03:40 08/06/22 03:30 08/06/22 03:20 08/06/22 03:10 08/06/22 03:00 08/06/22 03:00 08/06/22 02:50 08/06/22 02:40 08/06/22 02:30 08/06/22 02:20 08/06/22 04:00 30 08/06/22 01:00 30 08/06/22 03:15 30 08/06/22 02:10 08/06/22 02:00 08/06/22 02:00 08/06/22 02:00 Mechanical Vent 08/06/22 01:50 08/06/22 01:40 08/06/22 01:30 08/06/22 01:20 08/06/22 01:10 08/06/22 01:00 08/06/22 01:00 08/06/22 00:50 08/06/22 00:40 08/06/22 00:30 08/06/22 00:20 08/06/22 00:10 08/06/22 00:00 08/06/22 00:00 08/05/22 23:50 08/05/22 23:45 08/05/22 23:45 08/05/22 23:40 08/05/22 23:33 08/05/22 23:22 08/05/22 23:10 08/05/22 23:00 08/05/22 23:00 08/05/22 22:50 08/06/22 00:48 Mechanical Vent 08/06/22 00:29 Mechanical Vent 30 08/06/22 00:08 30 08/05/22 23:11 Mechanical Vent 08/05/22 22:40 Mechanical Vent 08/05/22 22:30 Mechanical Vent 08/05/22 22:30 Mechanical Vent 08/05/22 22:20 Mechanical Vent 08/05/22 22:10 Mechanical Vent 08/05/22 22:00 Mechanical Vent 08/05/22 22:00 Mechanical Vent 08/05/22 21:50 Mechanical Vent 08/05/22 21:40 Mechanical Vent 08/05/22 21:30 Mechanical Vent 08/05/22 21:30 Mechanical Vent 08/05/22 21:20 Mechanical Vent 08/05/22 21:10 Mechanical Vent 08/05/22 21:00 Mechanical Vent 08/05/22 21:00 Mechanical Vent Laboratory Results 08/06/22 04:11 Coding Level of Care Code 10163 Subseq Hosp Care Lvl 3 Diagnoses Ventilator dependence Z99.11 Severe sepsis A41.9; R65.20 HENRI (acute kidney injury) N17.9 ALS (amyotrophic lateral sclerosis) G12.21
[2022-08-06] MEDS: ARTIFICIAL TEARS OP SCH ×4 (09:25→20:29)
[2022-08-06] MEDS: NON-FORMULARY MEDICATION (Zinc Oxide 20 % Ointment) TOP SCH ×3 (09:27→20:29)
[2022-08-06] MEDS: traMADol HCL 50 MG TABLET NG PRN (09:47)
[2022-08-06 10:21] LABS: Anion Gap 15 (3-11); BUN Creatinine Ratio 447.6 (10-20); Blood Urea Nitrogen 94 mg/dl (6-23); Calcium 9.1 mg/dl (8.5-10.1); Carbon Dioxide 22 mmol/L (21-32); Chloride 115 mmol/L (98-107); Creatinine Clr Calc Pharmacy 538.9 ml/min; Est GFR (African American) > 150.0 ml/min; Est GFR (Non-African American) > 150.0 ml/min; Glucose 171 mg/dl (70-99(Fasting)); Potassium 3.3 mmol/L (3.5-5.1); Sodium 152 mmol/L (136-145)
[2022-08-06] MEDS ORDERED: CASPOFUNGIN 70 MG in SODIUM CHLORIDE 0.9% 250 ML IV ONE (10:45)
[2022-08-06] MEDS: PEPTAMEN 1.5 CAL 1,000 ML BAG JT SCH (11:00)
--- NOTE | 2022-08-06 12:17 | Pharmacy Report ---
Pharmacy PK ABX Note - Date of Service August 06, 2022 - Assessment and Plan Assessment 37 year old M receiving empiric vancomycin/zosyn for sepsis. Pertinent microbiologic data includes: MRSA nasal swab negative. WBC increasing, 30.6 today. Expect discontinuation of vancomycin in 48 hrs per current plan. Caspofungin added today for possible fungal infection. Sputum (trach), blood/fungal cultures pending. ID consult to be entered by ICU team. Day # 2 of antimicrobial therapy. Plan Vancomycin * Loading dose: 2250 mg IV x 1 * Maintenance dose: 1500 mg IV every 12 hours * Regimen is predicted to achieve target AUC/ED of 400-600 mg/L.hr * Random level to be ordered if continued > 48 hours Pharmacy will continue to follow and will adjust dose/frequency as necessary. Thank you. Pharmacy has transitioned to AUC monitoring for vancomycin. AUC/ED is the preferred PK/PD target and is associated with decreased risk of nephrotoxicity compared to traditional trough targets.
[2022-08-06] MEDS: TUBE FEEDING WATER FLUSH JT SCH ×4 (12:18→23:35)
[2022-08-06] MEDS: [UNRECOGNIZED DRUG - REMARK] SCH ×3 (12:33→23:35)
--- NOTE | 2022-08-06 13:27 | Hospitalist Progress Note ---
Date of Service August 06, 2022 Assessment & Plan (1) Severe sepsis: Plan: - Severe sepsis with elevated BUN, Cr 0.2, and liver dysfunction with lactic acidosis/HAGMA - IVF with clearance of LA - suspected pulmonary source per CT - CT chest with Tracheostomy cannula in place with mild tracheobronchial secretions. Small left pleural effusion with bibasilar consolidation. Additional centrilobular groundglass nodular opacities are present within the superior segments of the lower lobes. Findings are suggestive of pneumonia versus aspiration. - cultures pending - on broad spectrum abx per ICU - vent settings per ICU - seems to be tolerating baseline vent settings (2) HENRI (acute kidney injury): Plan: - Cr normally <0.2, now 0.5. BUN 4 ->242, AG 27 - S/p IVF - Avoid nephrotoxics. - patient recieved contrast in the ED - improving (3) Abnormal LFTs: Plan: - likely related to sepsis. - CT A/P noted - monitor (4) Lactic acidosis: Plan: - lactate improved with IVF resuscitation. (5) High anion gap metabolic acidosis: Plan: - from sepsis and HENRI. Received fluids - monitor (6) Chronic respiratory failure: Plan: - wean to baseline vent settings per ICU (7) Hypokalemia: Plan: - replete prn (8) ALS (amyotrophic lateral sclerosis): Plan: - bedbound with quadriplegia, has trach on vent. - continue vent support. - continue home riluzole (9) Left ventricular systolic dysfunction: Plan: - dry, continue ivf with sepsis - monitor volume status closely (10) Pseudocyst of pancreas: Plan: CT with resolving acute pancreatitis with decreasing size of pseudocysts. Plan DVT ppx- sc lovenox Code Status: Full Code Dispo: ICU Diogenes Rodrigues MD [facility] Medicine Admission and Anticipated Discharge Date Admission Date: August 05, 2022 Subjective Patient with ALS s/p trach chronically on ventilator, chronic pancreatitis, gastric dysmotility due to ALS who presented with severe sepsis with unclear source at this time, blood cultures drawn, started on broad spectrum antibiotics. On baseline vent settings. Cultures, including fungal, pending. ICU for now, on vent. Patient denied any complaints, talks using assistance of computer. SBP initially 80s but up to 100s. Satting 100% on FiO2 30%. Review of Systems Review of Systems: ROS limited due to patients tach. Denies chest pain, shortness of breath, n/v/d. Physical Exam Physical Exam: Constitutional: No acute distress HE ENT: PERRLA, posit precious trach Respirat ory system:Decrea sed air entry bila terally, no wheeze , no rhonchi, mild crackles bilatera l lower lobes CVS: S1-S2 positive, n o murmurs or leigh ps Abdomen: Soft, nontender, nondist ended, positive alondra wel sounds x4, pos itive G-J tube Ext remities: +2 pulse s bilaterally radi quan/ dorsalis ped is, no cyanosis,+ 1 pitting edema bi lateral lower extr emity Neuro:Awake alert oriented to self and place Ps ych:Normal mood a nd affect G/U:Pos itive Varela Muscul oskeletal:Stage I -II decubitus ulce r Skin: no ra shes, warm and dry Lymphatic: no cervical or axi llary lymphadenopa thy Results & Data Results & Data ([facility]) Vital Signs (Past 12 Hours) Vital Signs Temp Pulse Resp BP Pulse Ox Pulse Ox O2 Del Method 08/06/22 12:00 36.8 C 111 H 12 100 08/06/22 12:00 102/62 08/06/22 12:00 36.6 C 08/06/22 12:00 08/06/22 12:00 111 H 14 99 08/06/22 09:00 Mechanical Vent 08/06/22 08:00 08/06/22 08:00 Mechanical Vent 08/06/22 11:00 37.1 C 111 H 14 100 08/06/22 11:00 84/57 L 08/06/22 10:00 36.5 C 110 H 14 100 08/06/22 10:00 104/73 08/06/22 11:08 100 08/06/22 09:00 36.7 C 115 H 14 100 08/06/22 09:00 103/71 08/06/22 08:11 102/65 08/06/22 08:11 37.0 C 115 H 12 98 08/06/22 08:00 37.0 C 110 H 12 100 08/06/22 08:00 101/63 08/06/22 07:00 36.8 C 107 H 12 100 08/06/22 07:00 106/65 08/06/22 08:00 36.5 C 08/06/22 07:48 109 H 12 100 08/06/22 07:00 108 H 08/06/22 06:30 37.1 C 111 H 12 100 08/06/22 06:20 37.1 C 112 H 12 100 08/06/22 06:10 37.1 C 112 H 12 100 08/06/22 06:00 37.0 C 113 H 12 100 08/06/22 06:00 88/60 L 08/06/22 05:50 37.0 C 111 H 12 100 08/06/22 05:40 36.9 C 109 H 12 100 08/06/22 05:30 37.0 C 115 H 12 100 08/06/22 05:20 37.0 C 117 H 10 L 100 08/06/22 05:10 36.9 C 113 H 12 100 08/06/22 05:00 36.8 C 111 H 12 100 08/06/22 05:00 94/65 L 08/06/22 04:50 36.8 C 109 H 11 L 100 08/06/22 04:40 36.8 C 111 H 12 100 08/06/22 04:30 36.8 C 112 H 12 100 08/06/22 04:20 36.8 C 111 H 10 L 100 08/06/22 04:10 36.9 C 115 H 12 99 08/06/22 04:00 36.8 C 110 H 12 100 08/06/22 04:00 99/54 L 08/06/22 03:50 36.8 C 110 H 10 L 100 08/06/22 03:40 36.9 C 110 H 12 99 08/06/22 03:30 36.9 C 111 H 12 99 08/06/22 03:20 36.9 C 113 H 10 L 99 08/06/22 03:10 37.0 C 113 H 12 99 08/06/22 03:00 37.0 C 113 H 12 98 08/06/22 03:00 86/55 L 08/06/22 02:50 37.1 C 118 H 11 L 97 08/06/22 02:40 37.1 C 118 H 1 L 98 08/06/22 02:30 37.1 C 117 H 12 98 08/06/22 02:20 37.1 C 113 H 12 100 08/06/22 04:00 08/06/22 03:15 107 H 12 100 08/06/22 02:10 37.1 C 116 H 12 100 08/06/22 02:00 37.1 C 114 H 12 100 08/06/22 02:00 92/53 L 08/06/22 02:00 Mechanical Vent 08/06/22 01:50 37.0 C 113 H 12 100 08/06/22 01:40 36.9 C 113 H 12 100 08/06/22 01:30 36.9 C 113 H 12 100 08/06/22 01:20 36.9 C 116 H 12 100 O2 Del Method FiO2 08/06/22 12:00 08/06/22 12:00 08/06/22 12:00 08/06/22 12:00 30 08/06/22 12:00 30 08/06/22 09:00 08/06/22 08:00 30 08/06/22 08:00 08/06/22 11:00 08/06/22 11:00 08/06/22 10:00 08/06/22 10:00 08/06/22 11:08 Mechanical Vent 08/06/22 09:00 08/06/22 09:00 08/06/22 08:11 08/06/22 08:11 08/06/22 08:00 08/06/22 08:00 08/06/22 07:00 08/06/22 07:00 08/06/22 08:00 08/06/22 07:48 30 08/06/22 07:00 08/06/22 06:30 08/06/22 06:20 08/06/22 06:10 08/06/22 06:00 08/06/22 06:00 08/06/22 05:50 08/06/22 05:40 08/06/22 05:30 08/06/22 05:20 08/06/22 05:10 08/06/22 05:00 08/06/22 05:00 08/06/22 04:50 08/06/22 04:40 08/06/22 04:30 08/06/22 04:20 08/06/22 04:10 08/06/22 04:00 08/06/22 04:00 08/06/22 03:50 08/06/22 03:40 08/06/22 03:30 08/06/22 03:20 08/06/22 03:10 08/06/22 03:00 08/06/22 03:00 08/06/22 02:50 08/06/22 02:40 08/06/22 02:30 08/06/22 02:20 08/06/22 04:00 30 08/06/22 03:15 30 08/06/22 02:10 08/06/22 02:00 08/06/22 02:00 08/06/22 02:00 08/06/22 01:50 08/06/22 01:40 08/06/22 01:30 08/06/22 01:20 Diagnostic Findings Laboratory Results WBC 30.76 K/ul (4.8-10.8) H* 08/06/22 04:11 RBC 3.96 M/uL (4.63-6.08) L 08/06/22 04:11 Hgb 11.8 g/dl (14.0-18.0) L 08/06/22 04:11 POC Hgb 11.6 g/dl (14.0-18.0) L 08/05/22 20:50 Hct 35.4 % (40.1-51.0) L 08/06/22 04:11 POC Hct 34 % (42-52) L 08/05/22 20:50 MCV 89.4 fL (80.0-100.0) 08/06/22 04:11 MCH 29.8 pg (25.0-34.0) 08/06/22 04:11 MCHC 33.3 g/dL (32.0-36.0) 08/06/22 04:11 RDW Std Deviation 50.9 fL (36.4-46.3) H 08/06/22 04:11 RDW Coeff of Aissatou 15.6 % (11.5-14.5) H 08/06/22 04:11 Plt Count 443 K/uL (130-400) H 08/06/22 04:11 MPV 10.0 fL (9.4-12.4) 08/06/22 04:11 Immature Gran % (Auto) 0.7 % 08/06/22 04:11 Neut % (Auto) 90.2 % 08/06/22 04:11 Lymph % (Auto) 3.9 % 08/06/22 04:11 [place] % (Auto) 4.6 % 08/06/22 04:11 Eos % (Auto) 0.3 % 08/06/22 04:11 Baso % (Auto) 0.3 % 08/06/22 04:11 Neut # (Auto) 27.73 K/uL (1.4-6.5) H 08/06/22 04:11 Lymph # (Auto) 1.21 K/uL (1.2-3.4) 08/06/22 04:11 [place] # (Auto) 1.42 K/uL (0.24-0.82) H 08/06/22 04:11 Eos # (Auto) 0.10 K/uL (0-0.50) 08/06/22 04:11 Baso # (Auto) 0.08 K/uL (0-0.2) 08/06/22 04:11 Immature Gran # (Auto) 0.22 K/uL (0.00-0.02) H 08/06/22 04:11 RBC Morphology Unremarkable 08/06/22 04:11 PT 10.3 Seconds (9.0-12.0) 08/05/22 13:30 INR 1.0 (0.9-1.1) 08/05/22 13:30 APTT 27.7 Seconds (21.0-31.0) 08/05/22 13:30 PTT Ratio 1.0 08/05/22 13:30 POC pH 7.49 (7.35-7.45) H 08/05/22 20:50 POC pCO2 33 mmHg (35-46) L 08/05/22 20:50 POC pO2 141 mmHg (80-95) H 08/05/22 20:50 POC HCO3 25 allison/L (19-24) H 08/05/22 20:50 POC Total CO2 26 mmol/L (24-31) 08/05/22 20:50 POC Base Excess 2.0 allison/L (-9-1.8) H 08/05/22 20:50 ABG pH 7.65 (7.35-7.45) H* 08/05/22 15:07 ABG pCO2 23 mmHg (35-46) L 08/05/22 15:07 ABG pO2 94 mmHg (80-95) 08/05/22 15:07 ABG HCO3 25 mmol/L (19-24) H 08/05/22 15:07 POC ABG O2 Sat 99.0 % (90-95) H 08/05/22 20:50 ABG O2 Saturation 99.5 % (90-95) H 08/05/22 15:07 ABG Base Excess 5.9 mEq/L (-9-1.8) H 08/05/22 15:07 Praveen Test POS (Pos) 08/05/22 15:07 Oxygen Given 2L 08/05/22 15:07 POC Sodium 142 mmol/L (135-144) 08/05/22 20:50 Sodium 152 mmol/L (136-145) H 08/06/22 08:00 POC Potassium 2.3 mmol/L (3.3-5.0) L* 08/05/22 20:50 Potassium 3.3 mmol/L (3.5-5.1) L 08/06/22 08:00 Chloride 115 mmol/L (98-107) H 08/06/22 08:00 Carbon Dioxide 22 mmol/L (21-32) 08/06/22 08:00 Anion Gap 15 (3-11) H 08/06/22 08:00 BUN 94 mg/dl (6-23) H 08/06/22 08:00 Creatinine 0.21 mg/dl (0.6-1.4) L 08/06/22 08:00 Est Cr Clr Drug Dosing 538.9 ml/min 08/06/22 08:00 Est GFR ( Amer) > 150.0 ml/min 08/06/22 08:00 Est GFR (Non-Af Amer) > 150.0 ml/min 08/06/22 08:00 BUN/Creatinine Ratio 447.6 (10-20) H 08/06/22 08:00 Glucose 171 mg/dl (70-99(Fasting)) H 08/06/22 08:00 Lactate 1.9 mmol/L (0.4-2.0) 08/05/22 17:26 Calcium 9.1 mg/dl (8.5-10.1) 08/06/22 08:00 Phosphorus 3.6 mg/dl (2.5-4.9) 08/06/22 04:11 Magnesium 3.0 mg/dl (1.7-2.4) H 08/06/22 04:11 Total Bilirubin 0.5 mg/dl (0.2-1.0) 08/06/22 04:11 Direct Bilirubin 0.2 mg/dl (0-0.2) 08/05/22 13:30 AST 48 U/L (13-39) H 08/06/22 04:11 ALT 74 U/L (7-52) H 08/06/22 04:11 Alkaline Phosphatase 384 U/L (34-104) H 08/06/22 04:11 Troponin I High Sens 18.3 pg/ml (0-20) D 08/05/22 13:30 Total Protein 7.4 gm/dl (6.0-8.3) 08/06/22 04:11 Albumin 3.6 gm/dl (3.4-5.0) 08/06/22 04:11 Globulin 3.8 gm/dl (2.5-4.0) 08/06/22 04:11 Albumin/Globulin Ratio 0.9 (0.9-2) 08/06/22 04:11 Lipase 135 U/L (11-82) H 08/05/22 13:30 Procalcitonin 1.28 ng/ml (0-0.5) H 08/05/22 13:30 Urine Color Yellow 08/05/22 16:50 Urine Appearance Clear (Clear) 08/05/22 16:50 Urine pH 5.0 (4.5-7.5) 08/05/22 16:50 Ur Specific [place] 1.016 (1.000-1.030) 08/05/22 16:50 Urine Protein 1+ (Negative) H 08/05/22 16:50 Urine Glucose (UA) Negative (Negative) 08/05/22 16:50 Urine Ketones Negative (Negative) 08/05/22 16:50 Urine Blood Negative (Negative) 08/05/22 16:50 Urine Nitrite Negative (Negative) 08/05/22 16:50 Urine Bilirubin Negative (Negative) 08/05/22 16:50 Urine Urobilinogen Negative (Negative) 08/05/22 16:50 Ur Leukocyte Esterase Negative (Negative) 08/05/22 16:50 Urine WBC (Auto) 1-5 /hpf (0-5) 08/05/22 16:50 Urine RBC (Auto) 5-10 /hpf (0-4) H 08/05/22 16:50 U Hyaline Cast (Auto) 5-10 /lpf (0-5) H 08/05/22 16:50 U Epithel Cells (Auto) 5-10 /lpf (0-5) H 08/05/22 16:50 Urine Bacteria (Auto) Negative (Negative) 08/05/22 16:50 Nasal Screen MRSA (PCR) Negative (Negative) 08/06/22 04:58 SARS-CoV-2, RNA, NAAT NEGATIVE (NEGATIVE) 08/05/22 17:07 Impressions Chest X-Ray 08/05/22 14:29 XR chest 1V portable HISTORY: Sepsis COMPARISON: Chest 06/11/2022. FINDINGS: The tracheostomy tube appears in good position. There are low lung volumes. There are bibasilar linear densities and small bilateral pleural effusions, unchanged. The heart remains top normal in size. No evidence for pulmonary edema. The upper lung zones are clear. IMPRESSION: 1. No change in the small bilateral pleural effusions and bibasilar densities. 2. Tracheostomy tube appears in good position. ACT 112: Negative or not required by law. Electronically signed by: Tony Roldan M.D. 08/05/2022 3:10 PM Abdomen/Pelvis CT 08/05/22 16:[address] WITH IV CONTRAST CT DOSE: 859.45 mGy.cm HISTORY: Acute sepsis in a patient with pancreatic pseudocysts sepsis hx of infected pseudocyst TECHNIQUE: Multiaxial CT images of the abdomen and pelvis were performed following the IV administration of 93 cc of Optiray, A dose lowering technique was utilized adhering to the principles of ALARA. COMPARISON STUDY: CT abdomen and pelvis 06/15/2022 FINDINGS: Small left pleural effusion has decreased in size from the prior study. Dependent bibasilar consolidation. No pneumatosis or pneumoperitoneum. Unremarkable spleen, gallbladder, and adrenal glands. Hepatic steatosis with mild right hemidiaphragmatic elevation. Patency of the hepatic and portal veins. The splenic vein is attenuated however is patent. There is decreased interstitial and peripancreatic inflammation compared to the prior exam with decreased abdominal ascites. Peripancreatic fluid collections have also decreased in size from the prior study, now at the largest measuring 3.8 cm adjacent to the pancreatic tail. Tiny fluid collections are again noted extending along the stomach and transverse colon. Embolization coils are noted adjacent to the distal stomach and pancreatic head. Gastrojejunostomy tube is in place. Decreased gastric wall thickening. 4 mm nonobstructing calculus of the superior pole left kidney. No ureteral cali culi or hydronephrosis identified. Layering hyperdensity within the urinary bladder may represent stone fragments. Mild urinary bladder distention. Aorta and IVC appear unchanged. There is marked diffuse muscle atrophy. No bowel obstruction or bowel wall thickening. Normal appendix. No acute fracture. Demineralized appearance of the bones. IMPRESSION: 1. Gastrojejunostomy tube in place with decreased gastric wall thickening compared to the prior exam. 2. Resolving acute pancreatitis with decreased size of the numerous peripancreatic fluid collections suggestive of pseudocysts. 3. Small left pleural effusion with dependent bibasilar airspace opacities favoring atelectasis. 4. 4 mm left renal calculus. No ureteral calculi or hydronephrosis. 5. No bowel obstruction or bowel wall thickening. 6. Additional findings as above. ACT 112: Negative or not required by law. The above report was generated using voice recognition software. It may contain grammatical, syntax or spelling errors. Electronically signed by: James Brody M.D. 08/05/2022 6:[address] 08/05/22 19:10 CT chest diagnostic wo con CT DOSE: 454.96 mGy.cm CLINICAL HISTORY: 37 years-old Male with sepsis. R/o PNA. Acute sepsis with clinical concern for pneumonia TECHNIQUE: Multiaxial CT images of the chest were performed without contrast. A dose lowering technique was utilized adhering to the principles of ALARA. COMPARISON: CT abdomen and pelvis of same day, CTA chest 05/07/2022 FINDINGS: Tracheostomy cannula distal tip terminates above the level the clavicular heads. Fluid within the airway proximal to the cannula. Mild tracheobronchial secretions. No thyroid nodule or lymphadenopathy. The heart is normal in size without pericardial effusion. No thoracic aortic aneurysm. Marked atrophy of the musculature redemonstrated. Small left pleural effusion with dependent bibasilar consolidation. There are additional centrilobular groundglass nodules in the superior segments of the lower lobes. No overt pulmonary edema or suspicious pulmonary nodules. Abdominal findings are dictated separately. Unremarkable soft tissues. No acute fracture identified. Unchanged mild thoracolumbar compression deformities. IMPRESSION: 1. Tracheostomy cannula in place with mild tracheobronchial secretions. 2. Small left pleural effusion with bibasilar consolidation. Additional centrilobular groundglass nodular opacities are present within the superior segments of the lower lobes. Findings are suggestive of pneumonia versus aspiration. 3. Please refer to the CT abdomen and pelvis study of same day for additional findings. ACT 112: Negative or not required by law. Electronically signed by: James Brody M.D. 08/05/2022 8:33 PM Medications Administered Current Inpatient Medications Acetaminophen (Acetaminophen Susp 325 Mg/10.15 Ml Udc) 650 mg GT Q6 PRN PRN Reason: Pain, Moderate Albuterol (Albuterol 0.083% Nebu Soln 3 Ml Vial) 2.5 mg NEB Q6R PRN; Protocol PRN Reason: cough wheeze Stop: 09/05/22 00:03 Last Admin: 08/06/22 08:05 Dose: 2.5 mg Artificial Tears (Artificial Tears) 1 drops OP UD PRN PRN Reason: Dry Eye(S) Stop: 09/05/22 00:36 Artificial Tears (Artificial Tears) 1 drops OP QID MYNOR Stop: 09/05/22 08:59 Last Admin: 08/06/22 12:19 Dose: 1 drops Atropine Sulfate (Atropine Sulfate 1% Op Soln 5 Ml Btl) 1 drops SL QID PRN PRN Reason: increased secretions Stop: 09/05/22 00:05 Enoxaparin Sodium (Enoxaparin Inj 40 Mg/0.4 Ml Syr) 40 mg SQ QAM MYNOR Stop: 09/05/22 08:59 Last Admin: 08/06/22 08:20 Dose: 40 mg Enteral Nutritional Formula (Peptamen 1.5 Cali 1,000 Ml Bag) 1,000 ml JT UD MYNOR; Protocol Stop: 09/05/22 10:59 Famotidine (Famotidine Susp 20 Mg/2.5 Ml Udp) 20 mg NG BID PRN PRN Reason: Indigestion Stop: 09/05/22 02:29 Guaifenesin (Guaifenesin Sugar Free 100 Mg/5 Ml Udc) 200 mg GT BID PRN PRN Reason: Cough Stop: 09/05/22 00:05 Piperacillin Sod/Tazobactam (Sod 4.5 gm/ Dextrose) 120 mls @ 30 mls/hr IV Q8H [facility]; Protocol Stop: 08/13/22 05:59 Last Infusion: 08/06/22 10:23 Dose: Infused Vancomycin HCl 1,500 mg/ (Sodium Chloride) 530 mls @ 200 mls/hr IV Q12H MYNOR Stop: 08/08/22 03:59 Last Infusion: 08/06/22 06:04 Dose: Infused Caspofungin 50 mg/ Sodium (Chloride) 260 mls @ 260 mls/hr IV DAILY@1100 [facility] Stop: 08/17/22 10:59 Lansoprazole (Lansoprazole 15 Mg Soltab) 15 mg PO DAILY MYNOR Stop: 09/05/22 08:59 Last Admin: 08/06/22 08:21 Dose: 15 mg Lidocaine (Lidocaine 5% Oint 30 Gm Tube) 1 appln TOP BID PRN PRN Reason: Pain Stop: 09/05/22 00:05 Melatonin (Melatonin 3 Mg Tab) 3 - 6 mg PO HS PRN PRN Reason: Sleep Stop: 09/05/22 00:05 Midodrine (Midodrine Hcl 2.5 Mg Tab) 5 mg PO TID@0800,1200,1800 [facility] Stop: 09/05/22 00:29 Last Admin: 08/06/22 12:19 Dose: 5 mg Miscellaneous (~A,D-Aloe Gcmx-Zijeztdtbb-M.Pet Ointment~Order Awaiting Action) 1 each N/A QS [facility] Stop: 09/05/22 15:59 Miscellaneous (Order Awaiting Action: Ipratropium [place] 21 Mcg (0.03 %) [place],Non-Aerosol) 1 each N/A QS [facility] Stop: 09/05/22 07:59 Last Admin: 08/06/22 12:33 Dose: Not Given Miscellaneous (Order Awaiting Action: Riluzole 50 Mg Tablet) 1 each N/A QS [facility] Stop: 09/05/22 07:59 Last Admin: 08/06/22 12:33 Dose: Not Given Miscellaneous Information (Vancomycin Consult Active) 1 each N/A UD PRN PRN Reason: Consult Stop: 09/04/22 16:31 Multi-Ingredient Cream (Artificial Tears Op Oint 3.5 Gm Tube) 1 appln OP HS [facility] Stop: 09/05/22 00:05 Last Admin: 08/06/22 01:11 Dose: 1 appln Non-Formulary Medication (Zinc Oxide) 1 appln TOP TID [facility] Stop: 09/05/22 08:59 Last Admin: 08/06/22 09:27 Dose: 1 appln Nystatin (Nystatin Powder 15gm Btl) 1 appln EXT DAILY PRN PRN Reason: Rash Stop: 09/05/22 00:05 Polyethylene Glycol (Polyethylene (Miralax) 17 Gm Pack) 17 gm PEG DAILY PRN PRN Reason: Constipation Stop: 09/05/22 00:05 Sodium Chloride (Sodium Chlor 7% 4 Ml Neb) 4 ml NEB BIDR [facility] Stop: 09/05/22 18:59 Sterile Water (Tube Feeding Water Flush) 200 ml JT Q4H [facility] Stop: 09/05/22 10:59 Last Admin: 08/06/22 12:18 Dose: 200 ml Tramadol HCl (Tramadol Hcl 50 Mg Tablet) 50 mg NG Q6H PRN PRN Reason: Pain Stop: 09/05/22 00:05 Last Admin: 08/06/22 09:47 Dose: 50 mg Vitamin D (Cholecalciferol 1,000 Units 25 Mcg Tab) 1,000 units JT DAILY [facility] Stop: 09/05/22 08:59 Last Admin: 08/06/22 08:20 Dose: 1,000 units
[2022-08-06] MEDS: SODIUM CHLOR 7% 4 ML NEB NEB SCH (19:34)
[2022-08-06] MEDS ORDERED: NORMOSOL-R 500 ML IV ONE (20:42)
[2022-08-06] MEDS: ACETAMINOPHEN SUSP 325 MG/10.15 ML UDC GT PRN (20:46)
[2022-08-07] MEDS: TUBE FEEDING WATER FLUSH JT SCH ×7 (03:28→23:23)
[2022-08-07] MEDS ORDERED: VANCOMYCIN LEVEL STA (03:30)
[2022-08-07 04:13] LABS: Basophils # (auto) 0.05 K/uL (0-0.2); Basophils % (auto) 0.2 %; Eosinophils # (auto) 0.12 K/uL (0-0.50); Eosinophils % (auto) 0.5 %; Hematocrit (blood only) 31.8 % (40.1-51.0); Hemoglobin 10.3 g/dl (14.0-18.0); Immature Granulocytes # (auto) 0.18 K/uL (0.00-0.02); Immature Granulocytes % (auto) 0.8 %; Lymphocytes # (auto) 1.57 K/uL (1.2-3.4); Mean Corpuscular Hemoglobin 29.7 pg (25.0-34.0); Mean Corpuscular Hgb Conc 32.4 g/dL (32.0-36.0); Mean Corpuscular Volume 91.6 fL (80.0-100.0); Monocytes # (auto) 1.33 K/uL (0.24-0.82); Monocytes % (auto) 5.9 %; Neutrophils # (auto) 19.27 K/uL (1.4-6.5); Neutrophils % (auto) 85.6 %; Platelet Count 356 K/uL (130-400); RDW Coefficient of Variation 16.2 % (11.5-14.5); RDW Standard Deviation 54.3 fL (36.4-46.3); Red Blood Count 3.47 M/uL (4.63-6.08); White Blood Count 22.52 K/ul (4.8-10.8)
[2022-08-07] MEDS: PIPERACILLIN/TAZOBACTAM 4.5 GM in DEXTROSE 5% 100 ML IV SCH ×3 (04:15→21:07)
[2022-08-07] MEDS: VANCOMYCIN HCL 1,500 MG in SODIUM CHLORIDE 0.9% 500 ML IV SCH (04:15)
[2022-08-07] MEDS ORDERED: VANCOMYCIN LEVEL ONE (04:44)
[2022-08-07] MEDS: ACETAMINOPHEN SUSP 325 MG/10.15 ML UDC GT PRN ×3 (04:53→20:40)
[2022-08-07] MEDS ORDERED: NORMOSOL-R 250 ML IV ONE (06:11)
[2022-08-07 06:44] LABS: Alanine Aminotransferase 79 U/L (7-52); Albumin Globulin Ratio 1.1 (0.9-2); Albumin Level 3.3 gm/dl (3.4-5.0); Alkaline Phosphatase 351 U/L (34-104); Anion Gap 12 (3-11); Aspartate Aminotransferase 43 U/L (13-39); Bilirubin,Total 0.4 mg/dl (0.2-1.0); Blood Urea Nitrogen 39 mg/dl (6-23); Calcium 8.9 mg/dl (8.5-10.1); Carbon Dioxide 23 mmol/L (21-32); Chloride 117 mmol/L (98-107); Creatinine Clr Calc Pharmacy 565.8 ml/min; Est GFR (African American) > 150.0 ml/min; Est GFR (Non-African American) > 150.0 ml/min; Globulin 2.9 gm/dl (2.5-4.0); Glucose 173 mg/dl (70-99(Fasting)); Magnesium 1.9 mg/dl (1.7-2.4); Potassium 3.3 mmol/L (3.5-5.1); Sodium 152 mmol/L (136-145); Total Protein 6.2 gm/dl (6.0-8.3)
[2022-08-07] MEDS: SODIUM CHLOR 7% 4 ML NEB NEB SCH ×2 (07:04→19:40)
[2022-08-07] MEDS: DEXTROSE 5% 1,000 ML IV SCH ×2 (08:11→17:12)
[2022-08-07] MEDS: MIDODRINE HCL 2.5 MG TAB PO SCH ×3 (08:12→18:15)
[2022-08-07] MEDS ORDERED: ACETAMINOPHEN 1,000 MG/100 ML VIAL IV STA (08:15)
[2022-08-07] MEDS ORDERED: ACETAMINOPHEN 1000 MG/100 ML IV IV ONE (08:17)
[2022-08-07] MEDS: NON-FORMULARY MEDICATION (Zinc Oxide 20 % Ointment) TOP SCH ×3 (08:23→20:38)
[2022-08-07] MEDS: LANSOPRAZOLE 15 MG SOLTAB PO SCH (08:24)
[2022-08-07] MEDS: ENOXAPARIN INJ 40 MG/0.4 ML SYR SQ SCH (08:24)
[2022-08-07] MEDS: CHOLECALCIFEROL 1,000 UNITS 25 MCG TAB JT SCH (08:24)
[2022-08-07] MEDS: ARTIFICIAL TEARS OP SCH ×4 (08:25→20:37)
--- NOTE | 2022-08-07 08:55 | Critical Care Progress Note ---
Date of Service August 07, 2022 Assessment & Plan (1) Ventilator dependence: (2) Severe sepsis: (3) HENRI (acute kidney injury): (4) ALS (amyotrophic lateral sclerosis): Plan CT chest 08/05/2022 personally reviewed: Secretions appreciated superior to the trachea and the vallecula, minimal tracheal secretions appreciated on the posterior wall Mild bilateral pleural effusion, dependent atelectasis bilateral lower lobes No significant mediastinal lymphadenopathy -- Sepsis Looking at the CT chest I do not feel that pulmonary is the source of sepsis Patient does have history of pancreatic cyst which grew E. coli in the past s/p treatment Tracheal aspirate growing Klebsiella which is pansensitive except for cefazolin Also growing MSSA which is pansensitive Procalcitonin 1.28 Continue with broad-spectrum antibiotics for the time being -- Hypotension Responded to fluid Patient is also on midodrine chronically 5 mg 3 times daily, continue with same Continue monitor MAP, keep greater than 65 if it is persistently low then start vasopressors -- Vent dependent respiratory failure Secondary to underlying diagnosis of ALS Continue with vent support Patient does not have any significant change from his baseline vent settings --Transaminitis --> trending down Elevated AST/ALT as well as alk phos Patient has chronic elevation of alk phos Mild transaminitis is likely from underlying hypertension that the patient presented with -- Hypernatremia with hyperchloremia Free water deficit 4.2 L Getting 250 mL every 4 hours Free water flushes through the GJ tube Continue to monitor --Elevated BUN --> improving With almost normal creatinine level Patient is not on steroids at home ? High-protein in diet/feeding H&H is also stable unlikely to be upper GI bleed --ALS Continue with riluzole --Prophylaxis VTE: Lovenox GI: Lansoprazole Lines: Peripheral, G-J-tube Diet: Tube feeds Plan: In/out: -160, urine output 3400, +3.8 L since coming to the hospital Vanco trough was 39 today. Given the sputum cultures growing MSSA. I will discontinue vancomycin Continue with Zosyn for the time being Continue with micafungin D5 water at 125 mL an hour for total of 1.5 L along with free water flushes Hypokalemia, hypomagnesemia and hypophosphatemia being replaced We will get ID involved Please note the above document was generated using voice recognition software. It may contain grammatical, syntax or spelling errors.Any formal questions or concerns about the content, text or information contained within the body of this dictation should be directly addressed to the provider for clarification. Admission and Anticipated Discharge Date Admission Date: August 05, 2022 Subjective Patient seen and examined at bedside. No acute distress, no adverse events overnight. Patient's map was in the 70s at the time of examination He was still tachycardic in the 120s but his T-max was 38 at the time of examination He says he is feeling much better compared to when coming to the hospital Denies any headache, no belly pain. Has been getting tube feeds. Review of Systems Review of Systems: All systems reviewed & are unremarkable except as noted in Subjective Physical Exam Physical Exam: Constitutional: No acute distress HEENT: PERRLA, positive trach Respiratory system: Decreased air entry bilaterally, no wheeze, no rhonchi, mild crackles bilateral lower lobes CVS: S1-S2 positive, no murmurs or gallops Abdomen: Soft, nontender, nondistended, positive bowel sounds x4, positive G-J tube Extremities: +2 pulses bilaterally radialis/ dorsalis pedis, no cyanosis, +1 pitting edema bilateral lower extremity Neuro: Awake alert oriented to self and place Psych: Normal mood and affect G/U: Positive [place] Musculoskeletal: Stage I-II decubitus ulcer Skin: no rashes, warm and dry Lymphatic: no cervical or axillary lymphadenopathy Results & Data Results & Data ([facility]) Vital Signs (Past 12 Hours) Vital Signs Temp Pulse Pulse Resp BP Pulse Ox O2 Del Method 08/07/22 07:49 122 H 14 100 Mechanical Vent 08/07/22 06:30 37.9 C H 120 H 12 97 08/07/22 06:20 38.0 C H 122 H 14 97 08/07/22 06:10 38.0 C H 125 H 14 97 08/07/22 06:00 38.0 C H 125 H 12 97 08/07/22 06:00 85/57 L 08/07/22 05:50 38.0 C H 124 H 14 98 08/07/22 05:40 38.0 C H 126 H 14 97 08/07/22 05:30 38.0 C H 127 H 12 97 08/07/22 05:20 38.0 C H 127 H 14 97 08/07/22 05:10 38.0 C H 130 H 14 97 08/07/22 05:00 38.0 C H 129 H 14 97 08/07/22 05:00 97/57 L 08/07/22 04:50 37.9 C H 123 H 14 99 08/07/22 04:40 37.9 C H 126 H 14 98 08/07/22 04:30 37.9 C H 127 H 14 97 08/07/22 04:20 37.9 C H 128 H 14 97 08/07/22 04:10 37.9 C H 128 H 14 98 08/07/22 04:00 37.9 C H 128 H 14 98 08/07/22 04:00 100/56 L 08/07/22 03:50 37.9 C H 130 H 14 98 08/07/22 03:40 37.9 C H 129 H 14 97 08/07/22 03:30 37.9 C H 128 H 14 98 08/07/22 03:20 37.9 C H 128 H 14 98 08/07/22 03:10 38.0 C H 127 H 14 98 08/07/22 03:00 38.0 C H 128 H 14 98 08/07/22 03:00 98/59 L 08/07/22 02:50 38.0 C H 128 H 14 98 08/07/22 02:40 38.0 C H 126 H 14 99 08/07/22 02:30 38.0 C H 122 H 14 100 08/07/22 02:20 37.9 C H 124 H 14 100 08/07/22 02:10 37.8 C H 123 H 14 100 08/07/22 02:00 37.7 C H 122 H 14 100 08/07/22 02:00 102/60 08/07/22 04:00 08/07/22 03:24 126 H 14 98 08/07/22 01:50 37.6 C H 125 H 14 100 08/07/22 01:40 37.6 C H 124 H 14 100 08/07/22 01:30 37.6 C H 122 H 14 100 08/07/22 01:20 37.5 C 124 H 14 100 08/07/22 01:10 37.5 C 123 H 14 100 08/07/22 01:00 37.5 C 123 H 14 100 08/07/22 01:00 100/59 L 08/07/22 00:50 37.4 C 122 H 14 100 08/07/22 00:40 37.4 C 122 H 14 100 08/07/22 00:30 37.4 C 123 H 14 100 08/07/22 00:20 37.4 C 122 H 14 100 08/07/22 00:10 37.4 C 118 H 14 100 08/07/22 00:00 37.4 C 119 H 14 100 08/07/22 00:00 111/66 08/06/22 23:50 37.4 C 119 H 12 100 08/06/22 23:40 37.4 C 118 H 14 100 08/06/22 23:30 37.4 C 118 H 14 100 08/06/22 23:20 37.3 C 112 H 14 100 08/06/22 23:10 37.4 C 115 H 12 99 08/06/22 23:00 37.4 C 116 H 14 99 08/06/22 23:00 105/59 L 08/06/22 22:50 37.4 C 114 H 14 98 08/06/22 22:40 37.4 C 112 H 12 99 08/06/22 22:30 37.4 C 112 H 14 97 08/06/22 22:20 37.4 C 114 H 14 98 08/06/22 22:10 37.5 C 113 H 8 L 99 08/06/22 22:06 90/55 L 08/06/22 22:06 37.5 C 116 H 14 08/06/22 22:00 37.6 C H 115 H 14 97 08/06/22 22:15 111 H 14 100 08/07/22 00:00 08/06/22 23:55 118 H 08/06/22 21:50 37.7 C H 115 H 14 99 08/06/22 21:40 37.8 C H 117 H 12 100 08/06/22 21:30 37.8 C H 112 H 14 100 08/06/22 21:20 37.8 C H 112 H 14 100 08/06/22 21:10 37.9 C H 114 H 12 100 08/06/22 21:00 38.0 C H 117 H 14 100 08/06/22 21:00 94/53 L 08/06/22 21:10 Mechanical Vent FiO2 08/07/22 07:49 30 08/07/22 06:30 08/07/22 06:20 08/07/22 06:10 08/07/22 06:00 08/07/22 06:00 08/07/22 05:50 08/07/22 05:40 08/07/22 05:30 08/07/22 05:20 08/07/22 05:10 08/07/22 05:00 08/07/22 05:00 08/07/22 04:50 08/07/22 04:40 08/07/22 04:30 08/07/22 04:20 08/07/22 04:10 08/07/22 04:00 08/07/22 04:00 08/07/22 03:50 08/07/22 03:40 08/07/22 03:30 08/07/22 03:20 08/07/22 03:10 08/07/22 03:00 08/07/22 03:00 08/07/22 02:50 08/07/22 02:40 08/07/22 02:30 08/07/22 02:20 08/07/22 02:10 08/07/22 02:00 08/07/22 02:00 08/07/22 04:00 30 08/07/22 03:24 30 08/07/22 01:50 08/07/22 01:40 08/07/22 01:30 08/07/22 01:20 08/07/22 01:10 08/07/22 01:00 08/07/22 01:00 08/07/22 00:50 08/07/22 00:40 08/07/22 00:30 08/07/22 00:20 08/07/22 00:10 08/07/22 00:00 08/07/22 00:00 08/06/22 23:50 08/06/22 23:40 08/06/22 23:30 08/06/22 23:20 08/06/22 23:10 08/06/22 23:00 08/06/22 23:00 08/06/22 22:50 08/06/22 22:40 08/06/22 22:30 08/06/22 22:20 08/06/22 22:10 08/06/22 22:06 08/06/22 22:06 08/06/22 22:00 08/06/22 22:15 30 08/07/22 00:00 30 08/06/22 23:55 08/06/22 21:50 08/06/22 21:40 08/06/22 21:30 08/06/22 21:20 08/06/22 21:10 08/06/22 21:00 08/06/22 21:00 08/06/22 21:10 Laboratory Results 08/07/22 03:54 08/07/22 03:54 Coding Level of Care Code 54449 Subseq Hosp Care Lvl 3 Diagnoses Ventilator dependence Z99.11 Severe sepsis A41.9; R65.20 HENRI (acute kidney injury) N17.9 ALS (amyotrophic lateral sclerosis) G12.21
[2022-08-07] MEDS ORDERED: POTASSIUM PHOS 3 MMOL/1 ML INFUSION IV STA (09:01)
[2022-08-07] MEDS ORDERED: POTASSIUM PHOSPHATE 30 MMOL in DEXTROSE 5% 500 ML IV ONE (09:15)
[2022-08-07] MEDS: MAGNESIUM SULFATE / D5W 1 GM/100 ML BAG IV SCH ×2 (09:19→11:12)
[2022-08-07] MEDS: [UNRECOGNIZED DRUG - REMARK] SCH (09:53)
--- NOTE | 2022-08-07 10:24 | Infectious Disease Consult ---
Date of Consultation August 07, 2022 Assessment & Plan (1) Fever: Plan #fever -persistent low grade temp today -admitted with concern for infection per pts due to lethargy, increased trach site drainage- increased SOB per pt although no noted change in vent settings- noted to have leukocytosis, elevated lactate, relative HENRI on admission -CT scan chest with b/l consolidation and opacities suggestive of PNA vs. aspiration -08/05 Sputum cx with MSSA and Klebsiella R only to cefazolin. 08/05 Bcxs NGTD 08/06 Fungal Bcx pending. 08/06 MRSA screen negative, -pt has been on zosyn. empiric vanco stopped due to negative MRSA screen. Caspofungin added empirically 08/06 given risk for candidemia -has been on midodrine, with stable low systolic pressure- no pressors -reportedly on home vent settings, secretions around trach site now clear/thinner per pt's -no acute issues reported today per discussion with pt, and RN- other than increased erythema/discomfort R eye. No central line, no skin issues other than sacral decub without evidence infection, baseline gastric output. No abd pain/diarrhea. -WBC meghana yesterday, trended down today #recurrent pancreatitis, infected pseudocysts -admitted repeatedly here and at [facility]- was most recently on cipro until early S ept - CT a/p with resolving acute pancreatitis with decreased size of numerous peripancreatic fluid collections Rec: Trimethoprim-polymyxin eye drops ordered for conjunctivitis. No indication at this time to empirically expand antimicrobials. Will follow up Bcxs. If remain no growth tomorrow, would stop empiric caspofungin. Consideration with clinical improvement to change zosyn to unasyn. Discussed with pt, his at bedside and Dr. Singh Consultation Information Consultation was provided via telemedicine using two-way real-time interactive telecommunication between the patient and the telemedicine provider. For the duration of the visit, the provider was performing the assessment from a different facility than the patient. This includesuse of bluetooth stethoscope forauscultationperformed by the telepresenter that the telemedicine provider can hear if described in the physical exam. Pe[employer]er contact information: Please call [facility] [place] . (Phone Number For Physician Use Only) After establishing a telemedicine visit, patient was: Patient was verified with two unique identifiers, Patient/authorized rep acknowledged consent and understanding and Gave permission to continue telehealth session Time Spent w Inpatient: 40 minutes History of Present Illness Attending Physician: Nallely Garcia MD History of Present Illness ID consult requested for sepsis in this 37-year-old male, past medical history of left ventricular systolic dysfunction, chronic pancreatitis with pancreatic pseudocyst, ALS, bedbound with quadriplegia, status post trach and feeding tube, who presented to the ED on 08/05/2022 for lethargy. Patient's reported she was concerned he has an infection as patient had been more lethargic. She also noted more bloody mucus inside trach and that there was drainage around trach site of greenish-yellow mucus. Patient is able to communicate via ipad. His at bedside provides his answers to questions. No fever but some chills and sweats reported by patient. In the ED, temperature was 36.1, rectal, heart rate 115, respiratory rate 23, blood pressure 99/79. Patient's pulse ox was 100% on mechanical vent. On exam he was noted to have stage II bedsore over the coccyx with some discharge. Admission labs significant for WBC 27.51, 91.3% neutrophils, hemoglobin 14.2, platelets 577, creatinine 0.5 lactate 3.9, lipase 135, procalcitonin 1.28. UA negative for pyuria. ABG with respiratory alkalosis. Portable chest x-ray showed no change in the small bilateral pleural effusions and bilateral densities. CT abdomen pelvis showed resolving acute pancreatitis with decreased size of numerous peripancreatic fluid collections suggestive of pseudocyst. CT chest without contrast shows small left pleural effusion with bibasilar consolidation and additional centrilobular groundglass nodular opacities within superior segments of the lower lobes suggestive for pneumonia versus aspiration. Patient was given dose of meropenem and vancomycin in the ED. Patient was started on empiric vancomycin and Zosyn pending sputum and blood culture results. Patient was noted to have acute kidney injury as his creatinine is normally less than 0.2. Lactate improved with IV fluids. Patient was noted to be able to be maintained on his home ventilator settings. He was started on antifungal coverage on 08/06 given risk for fungemia from abdominal source. He has been on home midodrine without need for pressors. Vancomycin trough was 39 today. Sputum culture is growing this very susceptible Klebsiella and MSSA. Vancomycin was therefore discontinued. Patient is currently on caspofungin 50 mg daily and Zosyn 4.5 g IV every 8. 10 Sputum cx with MSSA and Klebsiella R only to cefazolin. 10 Bcxs NGTD 08/06 Fungal Bcx pending. 08/06 MRSA screen negative, Patient had most recently been admitted to this hospital from 06/10-06/16 with concern for infected pancreatic pseudocysts and had been transferred to [facility], then discharged on 06/21 on ciprofloxacin which he completed approximately a month ago. He had previously been admitted at [facility] in May for necrotizing pancreatitis, s/p IR aspiration and treatment with cipro, which he reportedly had not completed as instructed. Patient's temperature has been persistently 38 C today. He has been ta chycardic. Systolic blood pressures have been in the high 90s to low 100s. Pulse ox has been 97 to 100%. Leukocytosis worsened yesterday to 30.76, improved today to 22.52. Platelets have improved to 356. Creatinine has improved to 0.2. Pt was seen with his at bedside who is communicating pts responses to questions and providing additional history. Pt reports that he did feel some SOB prior to admission, although no change required in vent settings. He feels better today- he denies having chills/sweats today. Secretions around trach are now thinner per pts . No abd pain/diarrhea. Pt did not have any indwelling lines or indwelling walker prior to admission. Sacral wound with some blood, but no purulent drainage has been noted. Per pts RN, sacral wound has erythema and some bleeding. Pt and deny any abx since ciprofloxacin course ended early jul. Crusting/erythema and discomfort of R eye noted today. Allergies Allergy/AdvReac Type Severity Reaction Status Date / Time No Known Allergies Allergy Verified 05/07/22 19:50 Home Medications Medication Instructions Recorded Confirmed Type acetaminophen 160 mg/5 mL oral 640 mg feeding tube Q6 PRN Pain, 05/07/22 06/10/22 History liquid (Children's Acetaminophen) Moderate atropine 1 % eye drops 1 drp sublingual QID PRN increased 05/07/22 06/10/22 History secretions cholecalciferol (vitamin D3) 25 1,000 unit feeding tube DAILY 05/07/22 06/10/22 History mcg (1,000 unit) capsule (Vitamin D3) ibuprofen 100 mg/5 mL oral 400 mg feeding tube Q6 PRN Pain, 05/07/22 06/10/22 History suspension Moderate melatonin 3 mg tablet 3 - 6 mg PO HS PRN Sleep 05/07/22 06/10/22 History nystatin 100,000 unit/gram topical 1 applic topical DAILY PRN Rash 05/07/22 06/10/22 History powder tramadol 50 mg tablet 50 mg feeding tube Q6H PRN Pain 05/07/22 06/10/22 History zinc oxide 20 % topical ointment 1 applic topical TID 05/07/22 06/10/22 History A,D-aloe zbss-njfycqxsst-w.pet 1 ea topical BID PRN scrotal area 06/10/22 06/10/22 History topical ointment carboxymethylcellulose sodium 0.5 1 drp ophthalmic (eye) UD PRN Dry 06/10/22 06/10/22 History % eye drops Eye(S) dextran 70-hypromellose (PF) 0.1 1 drp OPB QID 06/10/22 06/10/22 History %-0.3 % eye drops in a dropperette (Artificial Tears (PF)) famotidine 40 mg/5 mL (8 mg/mL) 20 mg feeding tube BID PRN 06/10/22 06/10/22 History oral suspension Indigestion guaifenesin 100 mg/5 mL oral liquid 200 mg feeding tube BID PRN Cough 06/10/22 06/10/22 History ipratropium bromide 21 mcg (0.03 2 spray intranasal TID 06/10/22 06/10/22 History %) nasal spray lidocaine 5 % topical ointment 1 applic topical BID PRN Pain 06/10/22 06/10/22 History midodrine 5 mg tablet 5 mg feeding tube TID 06/10/22 06/10/22 History nut.tx impaired digestive 1 ea feeding tube UD 06/10/22 06/10/22 History fxn-fiber 0.07 gram-1.5 kcal/mL oral liquid (Vital 1.5 Cali) polyethylene glycol 3350 17 17 g feeding tube DAILY PRN 06/10/22 06/10/22 History gram/dose oral powder (Miralax) Constipation riluzole 50 mg tablet 50 mg feeding tube DAILY 06/10/22 06/10/22 History senna leaf extract 176 mg/5 mL 15 ml feeding tube BID PRN 06/10/22 06/10/22 History oral syrup (senna) Constipation white petrolatum-mineral oil 57.3 1 applic ophthalmic (eye) HS 06/10/22 06/10/22 History %-42.5 % eye ointment (Lubricant Eye) lansoprazole 15 mg delayed 15 mg PO DAILY #0 tabs 06/16/22 Rx release,disintegrating tablet (Prevacid SoluTab) Patient History Medical History ALS (amyotrophic lateral sclerosis) DX FEBRUARY 2014 Atrial fibrillation with RVR isolated hx of, no further reoccurances Cardiac murmur AN INFANT Dry eye syndrome Left ventricular systolic dysfunction Sleep apnea USES APAP DEVICE (DX WITH ALS) ALWAYS USING >WITH 3L AT HS ONLY Slow gastric motility D/T ALS Uses feeding tube SYRINGE FEEDING THRU PEG TUBE (STILL SWALLOWS PILLS ORALLY) Surgical History History of esophagogastroduodenoscopy (EGD) History of herniorrhaphy History of tooth extraction Hx of LASIK PRK S/P percutaneous endoscopic gastrostomy (PEG) tube placement Family History Mother Family history of diabetes mellitus Other No family history of adverse response to anesthesia Social History Smoking Status: Never smoker Second Hand Exposure: No; Hx Alcohol Use: No Hx Substance Use: Yes Last Used Substance: Unknown Substance Use Type Other:: Medical Marijuana SL or salve Preferred Language: Hong Konger Communication Ability: Effective Autocad Operator Required: No Beliefs That Will Affect Care: None marital status: Current Living Situation: Spouse and Family Current Living Situation Comment: AND 3 SONS How many Children do You have: 3 Feels Safe at Home: Yes Assistive Devices: Hospital Bed and Scooter/Electric Scooter Physical Exam Physical Exam: PE: Gen: Awake, alert, chronically ill-appearing, NAD HEENT: b/l conjunctival erythema, R>L, R eye with light colored crusting noted, limited ability to open mouth, dry mm. Trach site with surrounding chronic erythema, white/clear mucus oozing around site. Resp: s/p trach, no resp distress Abd: Soft, slightly distended, no evident tenderness, +peg site with surrounding chronic erythema/irritation- gastric output dark liquid- baseline per pt's Extr: diffuse muscle atrophy, no c/c/e : indwelling walker Skin: RUE and LUE IVs ok Results & Data ([facility]) Vital Signs (Past 12 Hours) Vital Signs Temp Pulse Pulse Resp BP Pulse Ox O2 Del Method 08/07/22 09:00 Mechanical Vent 08/07/22 09:00 37.9 C H 117 H 15 96/55 L 99 Mechanical Vent 08/07/22 08:15 38.0 C H 126 H 14 106/68 99 Mechanical Vent 08/07/22 08:00 38.0 C H 122 H 14 108/66 100 Mechanical Vent 08/07/22 07:00 37.8 C H 120 H 12 94/57 L 97 Mechanical Vent 08/07/22 08:00 117 H 08/07/22 09:00 08/07/22 07:49 122 H 14 100 Mechanical Vent 08/07/22 06:30 37.9 C H 120 H 12 97 08/07/22 06:20 38.0 C H 122 H 14 97 08/07/22 06:10 38.0 C H 125 H 14 97 08/07/22 06:00 38.0 C H 125 H 12 97 08/07/22 06:00 85/57 L 08/07/22 05:50 38.0 C H 124 H 14 98 08/07/22 05:40 38.0 C H 126 H 14 97 08/07/22 05:30 38.0 C H 127 H 12 97 08/07/22 05:20 38.0 C H 127 H 14 97 08/07/22 05:10 38.0 C H 130 H 14 97 08/07/22 05:00 38.0 C H 129 H 14 97 08/07/22 05:00 97/57 L 08/07/22 04:50 37.9 C H 123 H 14 99 08/07/22 04:40 37.9 C H 126 H 14 98 08/07/22 04:30 37.9 C H 127 H 14 97 08/07/22 04:20 37.9 C H 128 H 14 97 08/07/22 04:10 37.9 C H 128 H 14 98 08/07/22 04:00 37.9 C H 128 H 14 98 08/07/22 04:00 100/56 L 08/07/22 03:50 37.9 C H 130 H 14 98 08/07/22 03:40 37.9 C H 129 H 14 97 08/07/22 03:30 37.9 C H 128 H 14 98 08/07/22 03:20 37.9 C H 128 H 14 98 08/07/22 03:10 38.0 C H 127 H 14 98 08/07/22 03:00 38.0 C H 128 H 14 98 08/07/22 03:00 98/59 L 08/07/22 02:50 38.0 C H 128 H 14 98 08/07/22 02:40 38.0 C H 126 H 14 99 08/07/22 02:30 38.0 C H 122 H 14 100 08/07/22 02:20 37.9 C H 124 H 14 100 08/07/22 02:10 37.8 C H 123 H 14 100 08/07/22 02:00 37.7 C H 122 H 14 100 08/07/22 02:00 102/60 08/07/22 04:00 08/07/22 03:24 126 H 14 98 08/07/22 01:50 37.6 C H 125 H 14 100 08/07/22 01:40 37.6 C H 124 H 14 100 08/07/22 01:30 37.6 C H 122 H 14 100 08/07/22 01:20 37.5 C 124 H 14 100 08/07/22 01:10 37.5 C 123 H 14 100 08/07/22 01:00 37.5 C 123 H 14 100 08/07/22 01:00 100/59 L 08/07/22 00:50 37.4 C 122 H 14 100 08/07/22 00:40 37.4 C 122 H 14 100 08/07/22 00:30 37.4 C 123 H 14 100 08/07/22 00:20 37.4 C 122 H 14 100 08/07/22 00:10 37.4 C 118 H 14 100 08/07/22 00:00 37.4 C 119 H 14 100 08/07/22 00:00 111/66 08/06/22 23:50 37.4 C 119 H 12 100 08/06/22 23:40 37.4 C 118 H 14 100 08/06/22 23:30 37.4 C 118 H 14 100 08/06/22 23:20 37.3 C 112 H 14 100 08/06/22 23:10 37.4 C 115 H 12 99 08/06/22 23:00 37.4 C 116 H 14 99 08/06/22 23:00 105/59 L 08/06/22 22:50 37.4 C 114 H 14 98 08/06/22 22:40 37.4 C 112 H 12 99 08/06/22 22:30 37.4 C 112 H 14 97 08/07/22 00:00 08/06/22 23:55 118 H FiO2 08/07/22 09:00 30 08/07/22 09:00 30 08/07/22 08:15 30 08/07/22 08:00 30 08/07/22 07:00 30 08/07/22 08:00 08/07/22 09:00 30 08/07/22 07:49 30 08/07/22 06:30 08/07/22 06:20 08/07/22 06:10 08/07/22 06:00 08/07/22 06:00 08/07/22 05:50 08/07/22 05:40 08/07/22 05:30 08/07/22 05:20 08/07/22 05:10 08/07/22 05:00 08/07/22 05:00 08/07/22 04:50 08/07/22 04:40 08/07/22 04:30 08/07/22 04:20 08/07/22 04:10 08/07/22 04:00 08/07/22 04:00 08/07/22 03:50 08/07/22 03:40 08/07/22 03:30 08/07/22 03:20 08/07/22 03:10 08/07/22 03:00 08/07/22 03:00 08/07/22 02:50 08/07/22 02:40 08/07/22 02:30 08/07/22 02:20 08/07/22 02:10 08/07/22 02:00 08/07/22 02:00 08/07/22 04:00 30 08/07/22 03:24 30 08/07/22 01:50 08/07/22 01:40 08/07/22 01:30 08/07/22 01:20 08/07/22 01:10 08/07/22 01:00 08/07/22 01:00 08/07/22 00:50 08/07/22 00:40 08/07/22 00:30 08/07/22 00:20 08/07/22 00:10 08/07/22 00:00 08/07/22 00:00 08/06/22 23:50 08/06/22 23:40 08/06/22 23:30 08/06/22 23:20 08/06/22 23:10 08/06/22 23:00 08/06/22 23:00 08/06/22 22:50 08/06/22 22:40 08/06/22 22:30 08/07/22 00:00 30 08/06/22 23:55 Laboratory Results Abnormal lab results 08/06/22 08/07/22 08/07/22 Range/Units 23:50 03:54 03:54 WBC 22.52 H (4.8-10.8) K/ul RBC 3.47 L (4.63-6.08) M/uL Hgb 10.3 L (14.0-18.0) g/dl Hct 31.8 L (40.1-51.0) % RDW Std Deviation 54.3 H (36.4-46.3) fL RDW Coeff of Aissatou 16.2 H (11.5-14.5) % Neut # (Auto) 19.27 H (1.4-6.5) K/uL [place] # (Auto) 1.33 H (0.24-0.82) K/uL Immature Gran # (Auto) 0.18 H (0.00-0.02) K/uL Sodium 152 H (136-145) mmol/L Potassium 3.3 L (3.5-5.1) mmol/L Chloride 117 H (98-107) mmol/L Anion Gap 12 H (3-11) BUN 39 H D (6-23) mg/dl Creatinine 0.20 L (0.6-1.4) mg/dl BUN/Creatinine Ratio 195.0 H (10-20) Glucose 173 H (70-99(Fasting)) mg/dl POC Glucose 153 H (70-99) mg/dl Phosphorus 2.0 L D (2.5-4.9) mg/dl AST 43 H (13-39) U/L ALT 79 H (7-52) U/L Alkaline Phosphatase 351 H (34-104) U/L Albumin 3.3 L (3.4-5.0) gm/dl Vancomycin Trough (10-20) mcg/ml 08/07/22 08/07/22 Range/Units 03:54 11:48 WBC (4.8-10.8) K/ul RBC (4.63-6.08) M/uL Hgb (14.0-18.0) g/dl Hct (40.1-51.0) % RDW Std Deviation (36.4-46.3) fL RDW Coeff of Aissatou (11.5-14.5) % Neut # (Auto) (1.4-6.5) K/uL [place]aton # (Auto) (0.24-0.82) K/uL Immature Gran # (Auto) (0.00-0.02) K/uL Sodium (136-145) mmol/L Potassium (3.5-5.1) mmol/L Chloride (98-107) mmol/L Anion Gap (3-11) BUN (6-23) mg/dl Creatinine (0.6-1.4) mg/dl BUN/Creatinine Ratio (10-20) Glucose (70-99(Fasting)) mg/dl POC Glucose 217 H (70-99) mg/dl Phosphorus (2.5-4.9) mg/dl AST (13-39) U/L ALT (7-52) U/L Alkaline Phosphatase (34-104) U/L Albumin (3.4-5.0) gm/dl Vancomycin Trough 36.9 H* (10-20) mcg/ml Diagnostic Findings Microbiology 08/05/22 15:00 Blood Aerobic Blood Culture - Preliminary No growth in Aerobic bottle after 48 hours. 08/05/22 15:00 Blood Anaerobic Blood Culture - Preliminary No growth in Anaerobic bottle after 48 hours. 08/05/22 14:30 Sputum,Trach Gram Stain - Final 08/05/22 14:30 Sputum,Trach Sputum Culture - Final Staphylococcus aureus Klebsiella pneumoniae 08/05/22 17:26 Blood Aerobic Blood Culture - Preliminary No growth in Aerobic bottle after 24 hours. 08/05/22 17:26 Blood Anaerobic Blood Culture - Final 08/06/22 09:33 Blood Fungal Smear - Final
[2022-08-07] MEDS ORDERED: GLUCOSE 40% GEL 15 GM TUBE PO PRN (11:00)
[2022-08-07] MEDS ORDERED: CARBOHYDRATES FOR HYPOGLYCEMIA PO PRN (11:00)
[2022-08-07] MEDS ORDERED: GLUCAGON FOR INJ 1 MG VIAL IM PRN (11:00)
[2022-08-07] MEDS ORDERED: GLUCOSE 10 TAB/TUBE PO PRN (11:00)
[2022-08-07] MEDS ORDERED: DEXTROSE 50% 50 ML SYRINGE IV PRN (11:00)
[2022-08-07] MEDS: CASPOFUNGIN 50 MG in SODIUM CHLORIDE 0.9% 250 ML IV SCH (11:12)
[2022-08-07] MEDS: INSULIN ASPART PER UNIT SC SCH ×3 (11:53→23:22)
--- NOTE | 2022-08-07 19:58 | Hospitalist Progress Note ---
Date of Service August 07, 2022 Assessment & Plan (1) Severe sepsis: Plan: Met sepsis criteria on admission with leukocytosis 27.5, febrile, lactate 3.[address] chest with Tracheostomy cannula in place with mild tracheobronchial secretions. Small left pleural effusion with bibasilar consolidation. Additional centrilobular groundglass nodular opacities are present within the superior segments of the lower lobes. Findings are suggestive of pneumonia versus aspiration. CT abd/pelvis showed resolving acute pancreatitis with decreased size of the numerous peripancreatic fluid collections suggestive of pseudocysts. sputum cx positive for staph aureus and klebsiella pna blood cx no growth Currently on IV Zosyn and and Vanco Pt was started on caspofungin ID on board recommended to continue current IV abx If cx showed no grow for fungi, consider to d/c antifungal as per ID Continue monitor closely in the ICU (2) HENRI (acute kidney injury): Plan: - Cr normally <0.2, now 0.5. BUN 4 ->242, AG 27 - S/p IVF - Avoid nephrotoxics. - patient recieved contrast in the ED - Lab improved with BUN 39 - Continue monitor BMP (3) Abnormal LFTs: Plan: - likely related to sepsis. - CT A/P noted - monitor (4) Lactic acidosis: Plan: - lactate improved with IVF resuscitation. (5) High anion gap metabolic acidosis: Plan: AG 27 on admission from sepsis and HENRI. Received fluids Anion gap 12 today (6) Chronic respiratory failure: Plan: - wean to baseline vent settings per ICU (7) Hypokalemia: Plan: Electrolytes imbalance K 3.3 today and phosp 2 Kphos replaced Continue monitor BMP (8) ALS (amyotrophic lateral sclerosis): Plan: - bedbound with quadriplegia, has trach on vent. - continue vent support. - continue home riluzole (9) Left ventricular systolic dysfunction: Plan: - dry, continue ivf with sepsis - monitor volume status closely (10) Pseudocyst of pancreas: Plan: CT with resolving acute pancreatitis with decreasing size of pseudocysts. Plan DVT ppx- sc lovenox Code Status: Full Code Dispo: ICU Admission and Anticipated Discharge Date Admission Date: August 05, 2022 Subjective Pt was seen and examined for follow sepsis Lying in bed with no acute distress Pt is able to communicate with his tablets by using his eyes to type He denies any new complaint He continues to spike fever Review of Systems Review of Systems: All systems reviewed & are unremarkable except as noted in Subjective Physical Exam Physical Exam: General Appearance:Moderately built and nourished,Chronic ill appearing Head: normocephalic, Atraumatic Eyes: normal inspection, EOMI Neck: supple, Trachea midline,+Trach +vent Respiratory/Chest: Decreased breath sounds Cardiovascular: S1, S2, No murmur Abdomen/GI:+ +J tube, Non tender Extremities/Musculoskeletal:Atrophy, Trace edema Neurologic/Psych:AAO, Quadriplegic, ALS Skin: normal color, warm Results & Data Results & Data ([facility]) Vital Signs (Past 12 Hours) Vital Signs Temp Pulse Pulse Resp BP Pulse Ox O2 Del Method 08/07/22 18:00 38.1 C H 115 H 14 103/58 L 100 Mechanical Vent 08/07/22 17:00 37.9 C H 116 H 14 110/64 100 Mechanical Vent 08/07/22 16:00 37.9 C H 113 H 14 101/55 L 100 Mechanical Vent 08/07/22 15:00 38.2 C H 117 H 12 92/52 L 100 Mechanical Vent 08/07/22 16:00 08/07/22 16:00 113 H 08/07/22 15:35 113 H 14 100 08/07/22 14:00 38.0 C H 117 H 12 99/53 L 100 Mechanical Vent 08/07/22 13:00 38.1 C H 112 H 12 93/54 L 100 Mechanical Vent 08/07/22 12:00 37.9 C H 115 H 12 103/62 99 Mechanical Vent 08/07/22 12:00 08/07/22 11:00 37.9 C H 123 H 12 109/63 98 Mechanical Vent 08/07/22 10:32 14 08/07/22 10:00 37.9 C H 114 H 12 100/64 99 Mechanical Vent 08/07/22 09:00 Mechanical Vent 08/07/22 09:00 37.9 C H 117 H 15 96/55 L 99 Mechanical Vent 08/07/22 08:15 38.0 C H 126 H 14 106/68 99 Mechanical Vent 08/07/22 08:00 38.0 C H 122 H 14 108/66 100 Mechanical Vent 08/07/22 08:00 117 H 08/07/22 09:00 08/07/22 07:49 122 H 14 100 Mechanical Vent FiO2 08/07/22 18:00 30 08/07/22 17:00 30 08/07/22 16:00 30 08/07/22 15:00 30 08/07/22 16:00 30 08/07/22 16:00 08/07/22 15:35 30 08/07/22 14:00 30 08/07/22 13:00 30 08/07/22 12:00 30 08/07/22 12:00 30 08/07/22 11:00 30 08/07/22 10:32 30 08/07/22 10:00 30 08/07/22 09:00 30 08/07/22 09:00 30 08/07/22 08:15 30 08/07/22 08:00 30 08/07/22 08:00 08/07/22 09:00 30 08/07/22 07:49 30
[2022-08-07] MEDS: TRIMETHOPRIM/POLYMYXIN B OP SCH ×2 (20:02→23:23)
[2022-08-07] MEDS: ARTIFICIAL TEARS OP OINT 3.5 GM TUBE OP SCH (20:37)
[2022-08-07] MEDS: PEPTAMEN 1.5 CAL 1,000 ML BAG JT SCH (23:36)
[2022-08-08] MEDS: ACETAMINOPHEN SUSP 325 MG/10.15 ML UDC GT PRN (02:42)
[2022-08-08] MEDS: TUBE FEEDING WATER FLUSH JT SCH ×4 (03:05→18:25)
[2022-08-08] MEDS: INSULIN ASPART PER UNIT SC SCH ×4 (06:06→23:59)
[2022-08-08] MEDS: PIPERACILLIN/TAZOBACTAM 4.5 GM in DEXTROSE 5% 100 ML IV SCH (06:06)
[2022-08-08] MEDS: TRIMETHOPRIM/POLYMYXIN B OP SCH ×4 (06:07→23:49)
[2022-08-08 06:19] LABS: Basophils # (auto) 0.02 K/uL (0-0.2); Basophils % (auto) 0.1 %; Eosinophils # (auto) 0.16 K/uL (0-0.50); Eosinophils % (auto) 0.8 %; Hemoglobin 8.8 g/dl (14.0-18.0); Immature Granulocytes # (auto) 0.21 K/uL (0.00-0.02); Lymphocytes # (auto) 1.64 K/uL (1.2-3.4); Lymphocytes % (auto) 8.2 %; Mean Corpuscular Hemoglobin 29.3 pg (25.0-34.0); Mean Corpuscular Hgb Conc 31.4 g/dL (32.0-36.0); Mean Corpuscular Volume 93.3 fL (80.0-100.0); Mean Platelet Volume 10.4 fL (9.4-12.4); Monocytes # (auto) 1.16 K/uL (0.24-0.82); Monocytes % (auto) 5.8 %; Neutrophils # (auto) 16.83 K/uL (1.4-6.5); Neutrophils % (auto) 84.1 %; Platelet Count 318 K/uL (130-400); RDW Coefficient of Variation 16.1 % (11.5-14.5); White Blood Count 20.02 K/ul (4.8-10.8)
[2022-08-08 06:57] LABS: Alanine Aminotransferase 59 U/L (7-52); Albumin Globulin Ratio 1.2 (0.9-2); Alkaline Phosphatase 244 U/L (34-104); Anion Gap 10 (3-11); Aspartate Aminotransferase 23 U/L (13-39); Bilirubin,Total 0.3 mg/dl (0.2-1.0); Blood Urea Nitrogen 18 mg/dl (6-23); Calcium 8.5 mg/dl (8.5-10.1); Carbon Dioxide 23 mmol/L (21-32); Chloride 108 mmol/L (98-107); Creatinine Clr Calc Pharmacy 565.9 ml/min; Est GFR (African American) > 150.0 ml/min; Est GFR (Non-African American) > 150.0 ml/min; Globulin 2.6 gm/dl (2.5-4.0); Glucose 180 mg/dl (70-99(Fasting)); Magnesium 1.7 mg/dl (1.7-2.4); Phosphorus 2.2 mg/dl (2.5-4.9); Potassium 3.3 mmol/L (3.5-5.1); Sodium 141 mmol/L (136-145); Total Protein 5.6 gm/dl (6.0-8.3)
[2022-08-08] MEDS ORDERED: POTASSIUM PHOS 3 MMOL/1 ML INFUSION IV STA (07:15)
[2022-08-08] MEDS ORDERED: POTASSIUM PHOSPHATE 30 MMOL in SODIUM CHLORIDE 0.9% 500 ML IV ONE (07:30)
[2022-08-08] MEDS: SODIUM CHLOR 7% 4 ML NEB NEB SCH ×2 (07:38→19:26)
[2022-08-08] MEDS ORDERED: ACETAMINOPHEN 10MG/ML Custom 1,000 MG in EMPTY BAG 0 ML IV PRN (08:37)
--- NOTE | 2022-08-08 08:42 | Critical Care Progress Note ---
Date of Service August 08, 2022 Assessment & Plan (1) Ventilator dependence: (2) Severe sepsis: (3) HENRI (acute kidney injury): (4) ALS (amyotrophic lateral sclerosis): Plan CT chest 08/05/2022 personally reviewed: Secretions appreciated superior to the trachea and the vallecula, minimal tracheal secretions appreciated on the posterior wall Mild bilateral pleural effusion, dependent atelectasis bilateral lower lobes No significant mediastinal lymphadenopathy -- Sepsis Looking at the CT chest I do not feel that pulmonary is the source of sepsis Patient does have history of pancreatic cyst which grew E. coli in the past s/p treatment Tracheal aspirate growing Klebsiella which is pansensitive except for cefazolin Also growing MSSA which is pansensitive Procalcitonin 1.28 Continue with broad-spectrum antibiotics for the time being -- Hypotension --> resolved Responded to fluid Patient is also on midodrine chronically 5 mg 3 times daily, continue with same Continue monitor MAP, keep greater than 65 if it is persistently low then start vasopressors -- Vent dependent respiratory failure Secondary to underlying diagnosis of ALS Continue with vent support Patient does not have any significant change from his baseline vent settings --Transaminitis --> trending down Elevated AST/ALT as well as alk phos Patient has chronic elevation of alk phos Mild transaminitis is likely from underlying hypertension that the patient presented with -- S/p hypernatremia with hyperchloremia Getting 250 mL every 8 hours Free water flushes through the GJ tube Continue to monitor --Elevated BUN --> improving With almost normal creatinine level Patient is not on steroids at home ? High-protein in diet/feeding H&H is also stable unlikely to be upper GI bleed --ALS Continue with riluzole --Prophylaxis VTE: Lovenox GI: Lansoprazole Lines: Peripheral, G-J-tube Diet: Tube feeds Plan: In/out: +1.8 L, urine output 2049 Hypokalemia, hypomagnesemia as well as hypophosphatemia being replaced AST ALT as well as alk phos are trending down ID consult reviewed Will change Zosyn to Unasyn. Fungal cultures negative to date. We will give another dose of caspofungin today and discontinue it. Continue with cooling blanket to get the temperature under control Please note the above document was generated using voice recognition software. It may contain grammatical, syntax or spelling errors.Any formal questions or concerns about the content, text or information contained within the body of this dictation should be directly addressed to the provider for clarification. Admission and Anticipated Discharge Date Admission Date: August 05, 2022 Subjective Patient seen and examined at bedside. No acute distress overnight Patient says that he is feeling tired today. He has been spiking continuous fever 38.3 C He is on cooling blanket right now Review of Systems Review of Systems: All systems reviewed & are unremarkable except as noted in Subjective Physical Exam Physical Exam: Constitutional: No acute distress HEENT: PERRLA, positive trach Respiratory system: Decreased air entry bilaterally, no wheeze, no rhonchi, mild crackles bilateral lower lobes CVS: S1-S2 positive, no murmurs or gallops Abdomen: Soft, nontender, nondistended, positive bowel sounds x4, positive G-J tube Extremities: +2 pulses bilaterally radialis/ dorsalis pedis, no cyanosis, +1 pitting edema bilateral lower extremity Neuro: Awake alert oriented to self and place Psych: Normal mood and affect G/U: Positive Varela Musculoskeletal: Stage I-II decubitus ulcer Skin: no rashes, warm and dry Lymphatic: no cervical or axillary lymphadenopathy Results & Data Results & Data ([facility]) Vital Signs (Past 12 Hours) Vital Signs Temp Pulse Resp BP Pulse Ox O2 Del Method FiO2 08/08/22 07:40 122 H 4 L 100 30 08/08/22 06:14 38.3 C H 08/08/22 06:00 118 H 12 100 08/08/22 06:00 94/61 L 08/08/22 05:00 115 H 14 100 08/08/22 05:00 95/56 L 08/08/22 04:00 117 H 14 100 08/08/22 04:00 105/62 08/08/22 03:30 122 H 15 97 30 08/08/22 04:00 30 08/08/22 05:01 37.9 C H 08/08/22 03:49 38 C H 08/08/22 03:00 126 H 14 99 08/08/22 03:00 104/59 L 08/08/22 02:00 127 H 14 98 08/08/22 02:00 102/64 08/08/22 03:00 38.3 C H 08/08/22 02:00 38.4 C H 08/08/22 01:00 38.5 C H 08/08/22 01:00 123 H 14 08/08/22 00:00 118 H 15 100 08/08/22 00:00 97/63 L 08/08/22 00:00 38.2 C H 08/08/22 00:00 119 H 08/08/22 00:00 30 08/07/22 23:17 116 H 15 100 30 08/07/22 23:00 119 H 14 100 08/07/22 23:00 106/60 08/07/22 22:00 118 H 14 99 08/07/22 22:00 93/56 L 08/07/22 21:00 124 H 14 100 08/07/22 21:00 116/72 08/07/22 23:00 38.2 C H 08/07/22 22:00 38.3 C H 08/07/22 21:25 Mechanical Vent 30 08/07/22 21:00 38.6 C H Laboratory Results 08/08/22 05:38 08/08/22 05:31 Coding Level of Care Code 32690 Subseq Hosp Care Lvl 3 Diagnoses Ventilator dependence Z99.11 Severe sepsis A41.9; R65.20 HENRI (acute kidney injury) N17.9 ALS (amyotrophic lateral sclerosis) G12.21
[2022-08-08] MEDS: CHOLECALCIFEROL 1,000 UNITS 25 MCG TAB JT SCH (08:51)
[2022-08-08] MEDS: MIDODRINE HCL 2.5 MG TAB PO SCH ×3 (08:52→18:27)
[2022-08-08] MEDS: LANSOPRAZOLE 15 MG SOLTAB PO SCH (08:52)
[2022-08-08] MEDS: ENOXAPARIN INJ 40 MG/0.4 ML SYR SQ SCH (08:53)
[2022-08-08] MEDS: ARTIFICIAL TEARS OP SCH ×4 (08:55→20:37)
[2022-08-08] MEDS: NON-FORMULARY MEDICATION (Zinc Oxide 20 % Ointment) TOP SCH ×3 (08:55→20:37)
[2022-08-08] MEDS: MAGNESIUM SULFATE / D5W 1 GM/100 ML BAG IV SCH ×3 (09:22→10:36)
--- NOTE | 2022-08-08 09:39 | XRay Report ---
XR chest 1V portable HISTORY: 37 years-old Male f/u follow-up study in a patient with pleural effusions COMPARISON: Chest CT 08/05/2022 TECHNIQUE: Semierect AP view of the chest FINDINGS: Tracheostomy cannula overlies the midline at the level the clavicular heads. The cardiac silhouette i s enlarged. No pneumothorax or overt pulmonary edema. Small left pleural effusion with persistent bib asilar opacities. No significant change from prior. Bones appear grossly intact. IMPRESSION: 1. Stable positioning of the tracheostomy cannula. 2. Small left pleural effusion with persistent bibasilar opacities suspicious for pneumonia versus as piration pneumonitis. ACT 112: Negative or not required by law. The above report was generated using voice recognition software. It may contain grammatical, syntax o r spelling errors. Electronically signed by: James Brody M.D. 08/08/2022 9:38 AM
--- NOTE | 2022-08-08 09:50 | Infectious Disease Progress Nt ---
Date of Service August 08, 2022 Assessment & Plan (1) Fever: Plan #fever -persistent low grade temp yesterday and today of unclear cause- pt denies associated sxs and appears improved from admission -admitted with concern for infection per pt's due to lethargy, increased trach site drainage and increased SOB although no noted change in vent settings- noted to have leukocytosis, elevated lactate, relative HENRI on admission -CT scan chest with b/l consolidation and opacities suggestive of PNA vs. aspiration -08/05 Sputum cx with MSSA and Klebsiella R only to cefazolin. 08/05 Bcxs NGTD 08/06 Fungal Bcx pending. 08/06 MRSA screen negative, -pt has been on zosyn. empiric vanco stopped due to negative MRSA screen. Caspofungin added empirically 08/06 given risk for candidemia -has been on midodrine, with stable low systolic pressure- no pressors -remains on home vent settings, secretions around trach site now clear/thinner per pt's -08/07 pt with increased erythema/discomfort R eye for which abx eye drops started 08/07. No central line, no skin issues other than sacral decub without evidence infection, baseline gastric output. Pt being followed by wound care. -diarrhea noted today- liquid, brown, 2x so far today per RN -WBC has been trending down slowly #recurrent pancreatitis, infected pseudocysts -admitted repeatedly here and at [facility] [place] was most recently on cipro until early Jul - CT a/p with resolving acute pancreatitis with decreased size of numerous peripancreatic fluid collections Rec: Continue trimethoprim-polymyxin eye drops ordered for conjunctivitis x 7 days. Monitor diarrhea- if worsens, would check c.dif (no need for full GI PCR panel). As Bcxs remain no growth, will stop empiric caspofungin today. Despite ongoing low grade fever, WBC has been trending down and pt remains clinically stable without new issues per pt or his . Considered resp viral panel given conjunctivitis as workup for fever but would be unlikely to change management facilitator. Discussed with pt, his at bedside Admission and Anticipated Discharge Date Admission Date: August 05, 2022 Subjective Subsequent visit was provided via telemedicine using two-way real-time interactive telecommunication between the patient and the telemedicine provider. For the duration of the visit, the provider was performing the assessment from a different facility than the patient. This includesuse of bluetooth stethoscope forauscultationperformed by the telepresenter that the telemedicine provider can hear if described in the physical exam. Senior Loan Officer contact information: Please call [facility] [phone]. (Phone Number For Physician Use Only) After establishing a telemedicine visit, patient was: Patient was verified with two unique identifiers, Patient/authorized rep acknowledged consent and understanding and Gave permission to continue telehealth session Pt with persistent low grade temps- however he denies feeling warm, chills or sweats when asked if anything is bothering him, he types that he has been having more frequent BMs- but no abd pain per his RN, he had 2 liquid BMs today- brown- appeared c/w tube feeds he is still having significant drainage around trach site but clear Pt's reports he was seen by wound care nurse for sacral decub and feet were examined as well Pt not on pressors Pt remains on 30%FIO2 with o2 sat 98-100%- home vent settings per his Xray today with small L pleural effusion, persistent b/l basilar opacities Physical Exam Physical Exam: PE: Gen: Awake, alert, chronically ill-appearing, NAD HEENT: b/l conjunctival erythema,symmetrical today without any noted crusting, limited ability to open mouth, dry mm. Trach site with surrounding chronic erythema, minimal white/clear mucus around site. Resp: no resp distress Abd: Soft, slightly distended, no evident tenderness, +peg site with surrounding chronic erythema/irritation- scant brown drainage on dressing. gastric output dark liquid- baseline per pt's Extr: diffuse muscle atrophy, no c/c/e +heel protectors : indwelling walker Skin: RUE and LUE IVs ok Prior IV site L wrist without phlebitis Results & Data ([facility]) Vital Signs (Past 12 Hours) Vital Signs Temp Temp Temp Pulse Resp BP Pulse Ox 08/08/22 08:00 126 H 14 99 08/08/22 08:00 135/79 08/08/22 07:00 122 H 18 98 08/08/22 07:00 117/70 08/08/22 07:40 122 H 4 L 100 08/08/22 08:00 38.0 C H 37.6 C H 119 H 08/08/22 08:00 119 H 08/08/22 06:14 38.3 C H 08/08/22 06:00 118 H 12 100 08/08/22 06:00 94/61 L 08/08/22 05:00 115 H 14 100 08/08/22 05:00 95/56 L 08/08/22 04:00 117 H 14 100 08/08/22 04:00 105/62 08/08/22 03:30 122 H 15 97 08/08/22 04:00 08/08/22 05:01 37.9 C H 08/08/22 03:49 38 C H 08/08/22 03:00 126 H 14 99 08/08/22 03:00 104/59 L 08/08/22 02:00 127 H 14 98 08/08/22 02:00 102/64 08/08/22 03:00 38.3 C H 08/08/22 02:00 38.4 C H 08/08/22 01:00 38.5 C H 08/08/22 01:00 123 H 14 08/08/22 00:00 118 H 15 100 08/08/22 00:00 97/63 L 08/08/22 00:00 38.2 C H 08/08/22 00:00 119 H 08/08/22 00:00 08/07/22 23:17 116 H 15 100 08/07/22 23:00 119 H 14 100 08/07/22 23:00 106/60 08/07/22 22:00 118 H 14 99 08/07/22 22:00 93/56 L 08/07/22 23:00 38.2 C H 08/07/22 22:00 38.3 C H FiO2 08/08/22 08:00 08/08/22 08:00 08/08/22 07:00 08/08/22 07:00 08/08/22 07:40 30 08/08/22 08:00 08/08/22 08:00 08/08/22 06:14 08/08/22 06:00 08/08/22 06:00 08/08/22 05:00 08/08/22 05:00 08/08/22 04:00 08/08/22 04:00 08/08/22 03:30 30 08/08/22 04:00 30 08/08/22 05:01 08/08/22 03:49 08/08/22 03:00 08/08/22 03:00 08/08/22 02:00 08/08/22 02:00 08/08/22 03:00 08/08/22 02:00 08/08/22 01:00 08/08/22 01:00 08/08/22 00:00 08/08/22 00:00 08/08/22 00:00 08/08/22 00:00 08/08/22 00:00 30 08/07/22 23:17 30 08/07/22 23:00 08/07/22 23:00 08/07/22 22:00 08/07/22 22:00 08/07/22 23:00 08/07/22 22:00 Laboratory Results 08/08/22 08/08/22 08/08/22 Range/Units 05:39 05:38 05:31 WBC 20.02 H (4.8-10.8) K/ul RBC 3.00 L (4.63-6.08) M/uL Hgb 8.8 L (14.0-18.0) g/dl Hct 28.0 L (40.1-51.0) % MCV 93.3 (80.0-100.0) fL MCH 29.3 (25.0-34.0) pg MCHC 31.4 L (32.0-36.0) g/dL RDW Std Deviation 55.0 H (36.4-46.3) fL RDW Coeff of Aissatou 16.1 H (11.5-14.5) % Plt Count 318 (130-400) K/uL MPV 10.4 (9.4-12.4) fL Immature Gran % (Auto) 1.0 % Neut % (Auto) 84.1 % Lymph % (Auto) 8.2 % Armstrong % (Auto) 5.8 % Eos % (Auto) 0.8 % Baso % (Auto) 0.1 % Neut # (Auto) 16.83 H (1.4-6.5) K/uL Lymph # (Auto) 1.64 (1.2-3.4) K/uL Armstrong # (Auto) 1.16 H (0.24-0.82) K/uL Eos # (Auto) 0.16 (0-0.50) K/uL Baso # (Auto) 0.02 (0-0.2) K/uL Immature Gran # (Auto) 0.21 H (0.00-0.02) K/uL Sodium 141 D (136-145) mmol/L Potassium 3.3 L (3.5-5.1) mmol/L Chloride 108 H (98-107) mmol/L Carbon Dioxide 23 (21-32) mmol/L Anion Gap 10 (3-11) BUN 18 D (6-23) mg/dl Creatinine < 0.20 L (0.6-1.4) mg/dl Est Cr Clr Drug Dosing 565.9 ml/min Est GFR ( Amer) > 150.0 ml/min Est GFR (Non-Af Amer) > 150.0 ml/min BUN/Creatinine Ratio TNP Glucose 180 H (70-99(Fasting)) mg/dl POC Glucose 167 H (70-99) mg/dl Calcium 8.5 (8.5-10.1) mg/dl Phosphorus 2.2 L (2.5-4.9) mg/dl Magnesium 1.7 (1.7-2.4) mg/dl Total Bilirubin 0.3 (0.2-1.0) mg/dl AST 23 (13-39) U/L ALT 59 H (7-52) U/L Alkaline Phosphatase 244 H (34-104) U/L Total Protein 5.6 L (6.0-8.3) gm/dl Albumin 3.0 L (3.4-5.0) gm/dl Globulin 2.6 (2.5-4.0) gm/dl Albumin/Globulin Ratio 1.2 (0.9-2) 08/07/22 08/07/22 08/07/22 Range/Units 23:17 18:03 11:48 WBC (4.8-10.8) K/ul RBC (4.63-6.08) M/uL Hgb (14.0-18.0) g/dl Hct (40.1-51.0) % MCV (80.0-100.0) fL MCH (25.0-34.0) pg MCHC (32.0-36.0) g/dL RDW Std Deviation (36.4-46.3) fL RDW Coeff of Aissatou (11.5-14.5) % Plt Count (130-400) K/uL MPV (9.4-12.4) fL Immature Gran % (Auto) % Neut % (Auto) % Lymph % (Auto) % Armstrong % (Auto) % Eos % (Auto) % Baso % (Auto) % Neut # (Auto) (1.4-6.5) K/uL Lymph # (Auto) (1.2-3.4) K/uL Armstrong # (Auto) (0.24-0.82) K/uL Eos # (Auto) (0-0.50) K/uL Baso # (Auto) (0-0.2) K/uL Immature Gran # (Auto) (0.00-0.02) K/uL Sodium (136-145) mmol/L Potassium (3.5-5.1) mmol/L Chloride (98-107) mmol/L Carbon Dioxide (21-32) mmol/L Anion Gap (3-11) BUN (6-23) mg/dl Creatinine (0.6-1.4) mg/dl Est Cr Clr Drug Dosing ml/min Est GFR ( Amer) ml/min Est GFR (Non-Af Amer) ml/min BUN/Creatinine Ratio Glucose (70-99(Fasting)) mg/dl POC Glucose 157 H 148 H 217 H (70-99) mg/dl Calcium (8.5-10.1) mg/dl Phosphorus (2.5-4.9) mg/dl Magnesium (1.7-2.4) mg/dl Total Bilirubin (0.2-1.0) mg/dl AST (13-39) U/L ALT (7-52) U/L Alkaline Phosphatase (34-104) U/L Total Protein (6.0-8.3) gm/dl Albumin (3.4-5.0) gm/dl Globulin (2.5-4.0) gm/dl Albumin/Globulin Ratio (0.9-2) Chest X-Ray 08/08/22 07:17 XR chest 1V portable HISTORY: 37 years-old Male f/u follow-up study in a patient with pleural effusions COMPARISON: Chest CT 08/05/2022 TECHNIQUE: Semierect AP view of the chest FINDINGS: Tracheostomy cannula overlies the midline at the level the clavicular heads. The cardiac silhouette is enlarged. No pneumothorax or overt pulmonary edema. Small left pleural effusion with persistent bibasilar opacities. No significant change from prior. Bones appear grossly intact. IMPRESSION: 1. Stable positioning of the tracheostomy cannula. 2. Small left pleural effusion with persistent bibasilar opacities suspicious for pneumonia versus aspiration pneumonitis. ACT 112: Negative or not required by law. The above report was generated using voice recognition software. It may contain grammatical, syntax or spelling errors. Electronically signed by: James Brody M.D. 08/08/2022 9:38 AM Diagnostic Findings Microbiology 08/05/22 17:26 Blood Aerobic Blood Culture - Preliminary No growth in Aerobic bottle after 48 hours. 08/05/22 17:26 Blood Anaerobic Blood Culture - Final 08/05/22 15:00 Blood Aerobic Blood Culture - Preliminary No growth in Aerobic bottle after 48 hours. 08/05/22 15:00 Blood Anaerobic Blood Culture - Preliminary No growth in Anaerobic bottle after 48 hours. 08/05/22 14:30 Sputum,Trach Gram Stain - Final 08/05/22 14:30 Sputum,Trach Sputum Culture - Final Staphylococcus aureus Klebsiella pneumoniae 08/06/22 09:33 Blood Fungal Smear - Final
[2022-08-08] MEDS: CASPOFUNGIN 50 MG in SODIUM CHLORIDE 0.9% 250 ML IV SCH (11:49)
[2022-08-08] MEDS: AMPICILLIN/SULBACTAM SOD 3,000 MG in 0.9 % SODIUM CHLORIDE 100 ML IV SCH ×3 (12:24→23:48)
[2022-08-08] MEDS ORDERED: NORMOSOL-R 500 ML IV ONE (14:05)
[2022-08-08] MEDS: ACETAMINOPHEN 1000 MG/100 ML IV IV PRN ×2 (14:48→22:24)
[2022-08-08] MEDS: ARTIFICIAL TEARS OP OINT 3.5 GM TUBE OP SCH (20:37)
--- NOTE | 2022-08-08 21:27 | Hospitalist Progress Note ---
Date of Service August 08, 2022 Assessment & Plan (1) Severe sepsis: Plan: Met sepsis criteria on admission with leukocytosis 27.5, febrile, lactate 3.[address] chest with Tracheostomy cannula in place with mild tracheobronchial secretions. Small left pleural effusion with bibasilar consolidation. Additional centrilobular groundglass nodular opacities are present within the superior segments of the lower lobes. Findings are suggestive of pneumonia versus aspiration. CT abd/pelvis showed resolving acute pancreatitis with decreased size of the numerous peripancreatic fluid collections suggestive of pseudocysts. sputum cx positive for staph aureus and klebsiella pna blood cx no growth Currently on IV Zosyn and and Vanco Pt was started on caspofungin. Caspofungin discontinued since cx no growth ID on board recommended to continue current IV abx Continue monitor closely in the ICU (2) HENRI (acute kidney injury): Plan: - Cr normally <0.2, now 0.5. BUN 4 ->242, AG 27 - S/p IVF - Avoid nephrotoxics. - patient recieved contrast in the ED - Lab improved with BUN 23 and Anion gap 10 - Continue monitor BMP (3) Abnormal LFTs: Plan: - likely related to sepsis. - CT A/P noted - monitor (4) Lactic acidosis: Plan: - lactate improved with IVF resuscitation. (5) High anion gap metabolic acidosis: Plan: AG 27 on admission from sepsis and HENRI. Received fluids Anion gap 10 today (6) Chronic respiratory failure: Plan: - wean to baseline vent settings per ICU (7) Hypokalemia: Plan: Electrolytes imbalance K 3.3 today and phosp 2 Kphos replaced Continue monitor BMP (8) ALS (amyotrophic lateral sclerosis): Plan: - bedbound with quadriplegia, has trach on vent. - continue vent support. - continue home riluzole (9) Left ventricular systolic dysfunction: Plan: - dry, continue ivf with sepsis - monitor volume status closely (10) Pseudocyst of pancreas: Plan: CT with resolving acute pancreatitis with decreasing size of pseudocysts. Plan DVT ppx- sc lovenox Code Status: Full Code Dispo: ICU Admission and Anticipated Discharge Date Admission Date: August 05, 2022 Subjective Pt was seen and examined for follow sepsis Lying in bed with no acute distress He denies any new complaint Tmax 38.6 last night Review of Systems Review of Systems: All systems reviewed & are unremarkable except as noted in Subjective Physical Exam Physical Exam: General Appearance:Moderately built and nourished,Chronic ill appearing Head: normocephalic, Atraumatic Eyes: normal inspection, EOMI Neck: supple, Trachea midline,+Trach +vent Respiratory/Chest: Decreased breath sounds Cardiovascular: S1, S2, No murmur Abdomen/GI:+ +J tube, Non tender Extremities/Musculoskeletal:Atrophy, Trace edema Neurologic/Psych:AAO, Quadriplegic, ALS Skin: normal color, warm Results & Data Results & Data ([facility]) Vital Signs (Past 12 Hours) Vital Signs Temp Pulse Pulse Resp BP Pulse Ox O2 Del Method 08/08/22 19:25 115 H 14 100 08/08/22 19:25 113 H 14 100 Mechanical Vent 08/08/22 18:00 36.9 C 117 H 14 94 08/08/22 18:00 111/61 08/08/22 17:00 37.2 C 115 H 14 97 08/08/22 17:00 117/65 08/08/22 16:00 118 H 14 95 08/08/22 16:00 37.4 C 107/52 L 08/08/22 16:00 116 H 08/08/22 15:52 118 H 14 95 08/08/22 15:17 112 H 12 97 08/08/22 15:17 37.6 C H 97/55 L 08/08/22 15:00 118 H 14 97 08/08/22 15:00 99/55 L 08/08/22 14:00 113 H 14 100 08/08/22 14:00 93/55 L 08/08/22 13:00 37.7 C H 124 H 14 99 08/08/22 13:00 111/63 08/08/22 13:01 37.7 C H 08/08/22 11:00 121 H 14 100 08/08/22 11:00 124/73 08/08/22 10:42 121 H 14 100 08/08/22 09:30 Mechanical Vent 08/08/22 10:00 120 H 14 100 08/08/22 10:00 111/68 08/08/22 09:16 119 H 15 100 08/08/22 09:16 101/68 FiO2 08/08/22 19:25 30 08/08/22 19:25 30 08/08/22 18:00 08/08/22 18:00 08/08/22 17:00 08/08/22 17:00 08/08/22 16:00 08/08/22 16:00 08/08/22 16:00 08/08/22 15:52 30 08/08/22 15:17 08/08/22 15:17 08/08/22 15:00 08/08/22 15:00 08/08/22 14:00 08/08/22 14:00 08/08/22 13:00 08/08/22 13:00 08/08/22 13:01 08/08/22 11:00 08/08/22 11:00 08/08/22 10:42 30 08/08/22 09:30 08/08/22 10:00 08/08/22 10:00 08/08/22 09:16 08/08/22 09:16
[2022-08-09] MEDS: TUBE FEEDING WATER FLUSH JT SCH ×3 (01:48→16:29)
[2022-08-09 04:36] LABS: Basophils # (auto) 0.02 K/uL (0-0.2); Basophils % (auto) 0.1 %; Eosinophils # (auto) 0.26 K/uL (0-0.50); Eosinophils % (auto) 1.7 %; Hematocrit (blood only) 24.8 % (40.1-51.0); Hemoglobin 7.8 g/dl (14.0-18.0); Immature Granulocytes % (auto) 0.7 %; Lymphocytes # (auto) 1.42 K/uL (1.2-3.4); Lymphocytes % (auto) 9.3 %; Mean Corpuscular Hemoglobin 29.4 pg (25.0-34.0); Mean Corpuscular Hgb Conc 31.5 g/dL (32.0-36.0); Mean Corpuscular Volume 93.6 fL (80.0-100.0); Mean Platelet Volume 9.9 fL (9.4-12.4); Monocytes # (auto) 0.96 K/uL (0.24-0.82); Monocytes % (auto) 6.3 %; Neutrophils # (auto) 12.53 K/uL (1.4-6.5); Neutrophils % (auto) 81.9 %; Platelet Count 301 K/uL (130-400); RDW Coefficient of Variation 16.2 % (11.5-14.5); RDW Standard Deviation 55.8 fL (36.4-46.3); Red Blood Count 2.65 M/uL (4.63-6.08); White Blood Count 15.29 K/ul (4.8-10.8)
[2022-08-09 05:06] LABS: Anion Gap 10 (3-11); Blood Urea Nitrogen 12 mg/dl (6-23); Calcium 8.4 mg/dl (8.5-10.1); Carbon Dioxide 24 mmol/L (21-32); Chloride 113 mmol/L (98-107); Creatinine Clr Calc Pharmacy 565.9 ml/min; Est GFR (African American) > 150.0 ml/min; Est GFR (Non-African American) > 150.0 ml/min; Glucose 125 mg/dl (70-99(Fasting)); Magnesium 1.5 mg/dl (1.7-2.4); Phosphorus 2.2 mg/dl (2.5-4.9); Sodium 147 mmol/L (136-145)
[2022-08-09 05:17] LABS: Polychromasia 1+
[2022-08-09] MEDS ORDERED: POTASSIUM PHOS 3 MMOL/1 ML INFUSION IV STA (05:36)
[2022-08-09] MEDS ORDERED: POTASSIUM CHLORIDE 20 MEQ/15 ML UDC PO STA ×2 (05:36→08:28)
[2022-08-09] MEDS ORDERED: POTASSIUM PHOSPHATE 21 MMOL in SODIUM CHLORIDE 0.9% 500 ML IV ONE (05:45)
[2022-08-09] MEDS: AMPICILLIN/SULBACTAM SOD 3,000 MG in 0.9 % SODIUM CHLORIDE 100 ML IV SCH (05:53)
[2022-08-09] MEDS: TRIMETHOPRIM/POLYMYXIN B OP SCH ×4 (05:53→23:18)
[2022-08-09] MEDS: MAGNESIUM SULFATE / D5W 1 GM/100 ML BAG IV SCH ×3 (05:58→09:16)
[2022-08-09] MEDS: INSULIN ASPART PER UNIT SC SCH ×4 (06:19→23:19)
[2022-08-09] MEDS: SODIUM CHLOR 7% 4 ML NEB NEB SCH ×2 (07:26→19:11)
--- NOTE | 2022-08-09 07:58 | Critical Care Progress Note ---
Date of Service August 09, 2022 Assessment & Plan (1) Ventilator dependence: (2) Severe sepsis: (3) HENRI (acute kidney injury): (4) ALS (amyotrophic lateral sclerosis): Plan CT chest 08/05/2022 personally reviewed: Secretions appreciated superior to the trachea and the vallecula, minimal tracheal secretions appreciated on the posterior wall Mild bilateral pleural effusion, dependent atelectasis bilateral lower lobes No significant mediastinal lymphadenopathy -- Sepsis Looking at the CT chest I do not feel that pulmonary is the source of sepsis Patient does have history of pancreatic cyst which grew E. coli in the past s/p treatment Tracheal aspirate growing Klebsiella which is pansensitive except for cefazolin Also growing MSSA which is pansensitive Procalcitonin 1.28 Continue with broad-spectrum antibiotics for the time being -- Hypotension --> resolved Responded to fluid Patient is also on midodrine chronically 5 mg 3 times daily, continue with same Continue monitor MAP, keep greater than 65 if it is persistently low then start vasopressors -- Vent dependent respiratory failure Secondary to underlying diagnosis of ALS Continue with vent support Patient does not have any significant change from his baseline vent settings --Transaminitis --> trending down Elevated AST/ALT as well as alk phos Patient has chronic elevation of alk phos Mild transaminitis is likely from underlying hypertension that the patient presented with -- S/p hypernatremia with hyperchloremia Getting 250 mL every 8 hours Free water flushes through the GJ tube Continue to monitor --Elevated BUN --> improving With almost normal creatinine level Patient is not on steroids at home ? High-protein in diet/feeding H&H is also stable unlikely to be upper GI bleed --ALS Continue with riluzole --Prophylaxis VTE: Lovenox GI: Lansoprazole Lines: Peripheral, G-J-tube Diet: Tube feeds Plan: In/out: + 1.5 L, urine output 2825 Hypokalemia, hypomagnesemia as well as hypophosphatemia being replaced Try to change Unasyn to be mixed in D5 water instead of normal saline. Patient's hemoglobin is trending down. Patient's baseline hemoglobin is around 7.5. He came in with hemoglobin of 11.4 which is most likely concentrated. Continue monitoring H&H. There is no clear source of bleeding. Give D5 water for total of 750 mL IV for hypernatremia and hyperchloremia. Please note the above document was generated using voice recognition software. It may contain grammatical, syntax or spelling errors.Any formal questions or concerns about the content, text or information contained within the body of this dictation should be directly addressed to the provider for clarification. Admission and Anticipated Discharge Date Admission Date: August 05, 2022 Subjective Patient seen and examined at bedside. No acute distress, no adverse events overnight. Patient is still spiking fever but it is less frequent compared to before. T-max 38.2 Blood pressure has been on the softer side but map is still greater than 65 Review of Systems Review of Systems: All systems reviewed & are unremarkable except as noted in Subjective Physical Exam Physical Exam: Constitutional: No acute distress HEENT: PERRLA, positive trach Respiratory system: Decreased air entry bilaterally, no wheeze, positive rhonchi bilaterally, mild crackles bilateral lower lobes CVS: S1-S2 positive, no murmurs or gallops Abdomen: Soft, nontender, nondistended, positive bowel sounds x4, positive G-J t ube Extremities: +2 pulses bilaterally radialis/ dorsalis pedis, no cyanosis, +1 pitting edema bilateral lower extremity Neuro: Awake alert oriented to self and place Psych: Normal mood and affect G/U: Positive Varela Musculoskeletal: Stage I-II decubitus ulcer Skin: no rashes, warm and dry Lymphatic: no cervical or axillary lymphadenopathy Results & Data Results & Data ([facility]) Vital Signs (Past 12 Hours) Vital Signs Temp Pulse Resp BP Pulse Ox O2 Del Method FiO2 08/09/22 07:43 117 H 14 100 30 08/09/22 06:00 37.9 C H 117 H 14 91/58 L 98 Mechanical Vent 30 08/09/22 05:00 37.8 C H 113 H 14 101/64 100 Mechanical Vent 30 08/09/22 04:00 37.5 C 113 H 14 98/63 L 100 Mechanical Vent 30 08/09/22 03:00 36.8 C 115 H 14 119/81 97 Mechanical Vent 30 08/09/22 02:00 36.9 C 117 H 14 85/60 L 95 Mechanical Vent 30 08/09/22 04:00 30 08/09/22 03:28 116 H 14 98 30 08/09/22 01:00 36.8 C 112 H 14 98/63 L 97 Mechanical Vent 30 08/09/22 00:00 37.1 C 115 H 14 93/59 L 99 Mechanical Vent 30 08/09/22 00:00 30 08/08/22 23:00 38.0 C H 119 H 14 97/62 L 100 Mechanical Vent 30 08/08/22 22:00 38.0 C H 120 H 19 95/58 L 100 Mechanical Vent 30 08/08/22 21:00 37.2 C 119 H 14 100/63 99 Mechanical Vent 30 08/08/22 20:00 37.1 C 115 H 14 103/67 100 Mechanical Vent 30 08/08/22 22:12 119 H 14 100 30 08/08/22 20:00 Mechanical Vent 30 08/08/22 20:00 30 Laboratory Results 08/09/22 04:17 08/09/22 04:17 Coding Level of Care Code 48524 Subseq Hosp Care Lvl 3 Diagnoses Ventilator dependence Z99.11 Severe sepsis A41.9; R65.20 HENRI (acute kidney injury) N17.9 ALS (amyotrophic lateral sclerosis) G12.21
[2022-08-09] MEDS ORDERED: DEXTROSE 5% 1,000 ML IV SCH (08:30)
[2022-08-09] MEDS: ACETAMINOPHEN 1000 MG/100 ML IV IV PRN ×2 (09:14→20:33)
[2022-08-09] MEDS: MIDODRINE HCL 2.5 MG TAB PO SCH ×3 (09:14→16:28)
[2022-08-09] MEDS: LANSOPRAZOLE 15 MG SOLTAB PO SCH (09:15)
[2022-08-09] MEDS: ENOXAPARIN INJ 40 MG/0.4 ML SYR SQ SCH (09:15)
[2022-08-09] MEDS: CHOLECALCIFEROL 1,000 UNITS 25 MCG TAB JT SCH (09:15)
[2022-08-09] MEDS: NON-FORMULARY MEDICATION (Zinc Oxide 20 % Ointment) TOP SCH ×3 (09:16→20:34)
[2022-08-09] MEDS: ARTIFICIAL TEARS OP SCH ×4 (09:17→20:33)
--- NOTE | 2022-08-09 09:21 | Infectious Disease Progress Nt ---
Date of Service August 09, 2022 Assessment & Plan (1) Fever: Plan #fever -persistent low grade temps (~38) began ~08/07 of unclear cause- pt denies associated sxs and appears improved from admission -admitted with concern for infection per pt's due to lethargy, increased trach site drainage and increased SOB although no noted change in vent settings- noted to have leukocytosis, elevated lactate, relative HENRI on admission -CT scan chest with b/l consolidation and opacities suggestive of PNA vs. aspiration -08/05 Sputum cx with MSSA and Klebsiella R only to cefazolin. 08/05 Bcxs NGTD 08/06 Fungal Bcx pending. 08/06 MRSA screen negative, -pt had been on zosyn. empiric vanco stopped due to negative MRSA screen. Caspofungin added empirically 08/06 given risk for candidemia -has been on midodrine, with stable low systolic pressure- no pressors -remains on home vent settings, secretions around trach site now clear/thinner per pt's -08/07 pt with increased erythema/discomfort R eye for which abx eye drops started 08/07. No central line, no skin issues other than sacral decub without evidence infection, baseline gastric output. Pt being followed by wound care. Photo in EMR reviewed- large area of sacral erythema partially obscured by topical ointment- does not appear to be cellulitic -diarrhea noted 08/08, but appeared c/w TF and no BMs 08/09 to date -Of note, WBC has been trending down over last few days -caspofungin stopped and zosyn changed to unasyn on 08/08 -on 08/09 overall lower temps (below 38)- pt had been receiving tylenol regularly, although did not require for past ~10 hours per RN #recurrent pancreatitis, infected pseudocysts -admitted repeatedly here and at [facility]- was most recently on cipro until early Jul - CT a/p with resolving acute pancreatitis with decreased size of numerous peripancreatic fluid collections Rec: Continue trimethoprim-polymyxin eye drops ordered for conjunctivitis x 7 days. Monitor diarrhea- if worsens, would check c.dif (no need for full GI PCR panel). Despite ongoing low grade fever, WBC has been trending down and pt remains clinically stable without new issues per pt or his RN. Considered resp viral panel given conjunctivitis as workup for fever but would be unlikely to warp changer. Pt on unasyn - it is D#5 total of abx for VAP- duration to depend on clinical improvement- at this time 7-10 day course planned. Discussed with pt at bedside Please page with any questions. ID physician is available over phone on weekend for any questions/concerns. Dr. Baron (pager [phone]) is scheduled to take over care of pt on Friday. Linda Olivo M.D. [facility] Pager [phone] Admission and Anticipated Discharge Date Admission Date: August 05, 2022 Subjective Subsequent visit was provided via telemedicine using two-way real-time interactive telecommunication between the patient and the telemedicine provider. For the duration of the visit, the provider was performing the assessment from a different facility than the patient. This includesuse of bluetooth stethoscope forauscultationperformed by the telepresenter that the telemedicine provider can hear if described in the physical exam. Senior Professional Services Consultant contact information: Please call [facility] Connect Call Center [phone]. (Phone Number For Physician Use Only) After establishing a telemedicine visit, patient was: Patient was verified with two unique identifiers, Patient/authorized rep acknowledged consent and understanding and Gave permission to continue telehealth session Subsequent Time Spent w Inpatient: 15 minutes Pt communicating via computer- he denies subjective f, chills, sweats. Denies a ny complaints. No eye pain. Discussed with his RN at bedside- pt has not had any BMs since overnight. He continues to have copious but clear secretions around trach site. He is getting tylenol regularly- last dose was approx 10 hours ago but temp is currently around 38 C so he is about to receive tylenol again. His temp curve has been lower over past 24 hours via rectal probe. Physical Exam Physical Exam: PE: Gen: Awake, alert, chronically ill-appearing, NAD HEENT: b/l conjunctival erythema improved, no crusting, limited ability to open mouth, dry mm. Trach site with surrounding chronic erythema, minimal white/clear mucus around site. Resp: no resp distress Abd: Soft, distended, no evident tenderness, +peg site with surrounding chronic erythema/irritation- scant brown drainage on dressing. gastric output dark liquid- baseline per pt's Extr: diffuse muscle atrophy, no c/c Trace pedal edema. +heel protectors : indwelling walker with clear yellow urine Skin: RUE and LUE IVs ok Results & Data ([facility]) Vital Signs (Past 12 Hours) Vital Signs Temp Pulse Resp BP Pulse Ox O2 Del Method FiO2 08/09/22 08:00 37.7 C H 110 H 14 100 08/09/22 08:00 103/67 08/09/22 07:00 37.8 C H 119 H 14 100 08/09/22 07:00 113/62 08/09/22 07:43 117 H 14 100 30 08/09/22 06:00 37.9 C H 117 H 14 91/58 L 98 Mechanical Vent 30 08/09/22 05:00 37.8 C H 113 H 14 101/64 100 Mechanical Vent 30 08/09/22 04:00 37.5 C 113 H 14 98/63 L 100 Mechanical Vent 30 08/09/22 03:00 36.8 C 115 H 14 119/81 97 Mechanical Vent 30 08/09/22 02:00 36.9 C 117 H 14 85/60 L 95 Mechanical Vent 30 08/09/22 04:00 30 08/09/22 03:28 116 H 14 98 30 08/09/22 01:00 36.8 C 112 H 14 98/63 L 97 Mechanical Vent 30 08/09/22 00:00 37.1 C 115 H 14 93/59 L 99 Mechanical Vent 30 08/09/22 00:00 30 08/08/22 23:00 38.0 C H 119 H 14 97/62 L 100 Mechanical Vent 30 08/08/22 22:00 38.0 C H 120 H 19 95/58 L 100 Mechanical Vent 30 08/08/22 22:12 119 H 14 100 30 Laboratory Results 08/09/22 08/09/22 08/09/22 Range/Units 06:14 04:17 04:17 WBC 15.29 H (4.8-10.8) K/ul RBC 2.65 L (4.63-6.08) M/uL Hgb 7.8 L (14.0-18.0) g/dl Hct 24.8 L (40.1-51.0) % MCV 93.6 (80.0-100.0) fL MCH 29.4 (25.0-34.0) pg MCHC 31.5 L (32.0-36.0) g/dL RDW Std Deviation 55.8 H (36.4-46.3) fL RDW Coeff of Aissatou 16.2 H (11.5-14.5) % Plt Count 301 (130-400) K/uL MPV 9.9 (9.4-12.4) fL Immature Gran % (Auto) 0.7 % Neut % (Auto) 81.9 % Lymph % (Auto) 9.3 % [place] % (Auto) 6.3 % Eos % (Auto) 1.7 % Baso % (Auto) 0.1 % Neut # (Auto) 12.53 H (1.4-6.5) K/uL Lymph # (Auto) 1.42 (1.2-3.4) K/uL [place] # (Auto) 0.96 H (0.24-0.82) K/uL Eos # (Auto) 0.26 (0-0.50) K/uL Baso # (Auto) 0.02 (0-0.2) K/uL Immature Gran # (Auto) 0.10 H (0.00-0.02) K/uL Polychromasia 1+ Sodium 147 H (136-145) mmol/L Potassium 3.0 L (3.5-5.1) mmol/L Chloride 113 H (98-107) mmol/L Carbon Dioxide 24 (21-32) mmol/L Anion Gap 10 (3-11) BUN 12 (6-23) mg/dl Creatinine < 0.20 L (0.6-1.4) mg/dl Est Cr Clr Drug Dosing 565.9 ml/min Est GFR ( Amer) > 150.0 ml/min Est GFR (Non-Af Amer) > 150.0 ml/min BUN/Creatinine Ratio TNP Glucose 125 H (70-99(Fasting)) mg/dl POC Glucose 164 H (70-99) mg/dl Calcium 8.4 L (8.5-10.1) mg/dl Phosphorus 2.2 L (2.5-4.9) mg/dl Magnesium 1.5 L (1.7-2.4) mg/dl 08/08/22 08/08/22 08/08/22 Range/Units 23:51 18:33 12:48 WBC (4.8-10.8) K/ul RBC (4.63-6.08) M/uL Hgb (14.0-18.0) g/dl Hct (40.1-51.0) % MCV (80.0-100.0) fL MCH (25.0-34.0) pg MCHC (32.0-36.0) g/dL RDW Std Deviation (36.4-46.3) fL RDW Coeff of Aissatou (11.5-14.5) % Plt Count (130-400) K/uL MPV (9.4-12.4) fL Immature Gran % (Auto) % Neut % (Auto) % Lymph % (Auto) % [place] % (Auto) % Eos % (Auto) % Baso % (Auto) % Neut # (Auto) (1.4-6.5) K/uL Lymph # (Auto) (1.2-3.4) K/uL [place] # (Auto) (0.24-0.82) K/uL Eos # (Auto) (0-0.50) K/uL Baso # (Auto) (0-0.2) K/uL Immature Gran # (Auto) (0.00-0.02) K/uL Polychromasia Sodium (136-145) mmol/L Potassium (3.5-5.1) mmol/L Chloride (98-107) mmol/L Carbon Dioxide (21-32) mmol/L Anion Gap (3-11) BUN (6-23) mg/dl Creatinine (0.6-1.4) mg/dl Est Cr Clr Drug Dosing ml/min Est GFR ( Amer) ml/min Est GFR (Non-Af Amer) ml/min BUN/Creatinine Ratio Glucose (70-99(Fasting)) mg/dl POC Glucose 169 H 146 H 159 H (70-99) mg/dl Calcium (8.5-10.1) mg/dl Phosphorus (2.5-4.9) mg/dl Magnesium (1.7-2.4) mg/dl Microbiology 08/05/22 17:26 Blood Aerobic Blood Culture - Preliminary No growth in Aerobic bottle after 48 hours. 08/05/22 17:26 Blood Anaerobic Blood Culture - Final 08/05/22 15:00 Blood Aerobic Blood Culture - Preliminary No growth in Aerobic bottle after 48 hours. 08/05/22 15:00 Blood Anaerobic Blood Culture - Preliminary No growth in Anaerobic bottle after 48 hours. 08/05/22 14:30 Sputum,Trach Gram Stain - Final 08/05/22 14:30 Sputum,Trach Sputum Culture - Final Staphylococcus aureus Klebsiella pneumoniae 08/06/22 09:33 Blood Fungal Smear - Final
[2022-08-09 09:35] LABS: iSTAT Allen Test Pass; iSTAT Arterial Blood Gas HCO3 24 meg/L (19-24); iSTAT Arterial Blood Gas pCO2 41 mmHg (35-46); iSTAT Arterial Blood Gas pH 7.38 (7.35-7.45); iSTAT Arterial Blood Gas pO2 115 mmHg (80-95); iSTAT Carbon Dioxide 26 mmol/L (24-31); iSTAT FiO2 30 %; iSTAT Site L Radial
--- NOTE | 2022-08-09 10:33 | Infectious Disease Consult ---
Date of Consultation August 09, 2022 Consultation Information Consultation was provided via telemedicine using two-way real-time interactive telecommunication between the patient and the telemedicine provider. For the duration of the visit, the provider was performing the assessment from a different facility than the patient. This includesuse of bluetooth stethoscope forauscultationperformed by the telepresenter that the telemedicine provider can hear if described in the physical exam. Adolescent Psychiatrist contact information: Please call [facility] Connect Call Center . (Phone Number For Physician Use Only) History of Present Illness Attending Physician: Nallely Garcia MD Allergies Allergy/AdvReac Type Severity Reaction Status Date / Time No Known Allergies Allergy Verified 05/07/22 19:50 Home Medications Medication Instructions Recorded Confirmed Type acetaminophen 160 mg/5 mL oral 640 mg feeding tube Q6 PRN Pain, 05/07/22 06/10/22 History liquid (Children's Acetaminophen) Moderate atropine 1 % eye drops 1 drp sublingual QID PRN increased 05/07/22 06/10/22 History secretions cholecalciferol (vitamin D3) 25 1,000 unit feeding tube DAILY 05/07/22 06/10/22 History mcg (1,000 unit) capsule (Vitamin D3) ibuprofen 100 mg/5 mL oral 400 mg feeding tube Q6 PRN Pain, 05/07/22 06/10/22 History suspension Moderate melatonin 3 mg tablet 3 - 6 mg PO HS PRN Sleep 05/07/22 06/10/22 History nystatin 100,000 unit/gram topical 1 applic topical DAILY PRN Rash 05/07/22 06/10/22 History powder tramadol 50 mg tablet 50 mg feeding tube Q6H PRN Pain 05/07/22 06/10/22 History zinc oxide 20 % topical ointment 1 applic topical TID 05/07/22 06/10/22 History A,D-aloe mcxs-cqjihlumnc-p.pet 1 ea topical BID PRN scrotal area 06/10/22 06/10/22 History topical ointment carboxymethylcellulose sodium 0.5 1 drp ophthalmic (eye) UD PRN Dry 06/10/22 06/10/22 History % eye drops Eye(S) dextran 70-hypromellose (PF) 0.1 1 drp OPB QID 06/10/22 06/10/22 History %-0.3 % eye drops in a dropperette (Artificial Tears (PF)) famotidine 40 mg/5 mL (8 mg/mL) 20 mg feeding tube BID PRN 06/10/22 06/10/22 History oral suspension Indigestion guaifenesin 100 mg/5 mL oral liquid 200 mg feeding tube BID PRN Cough 06/10/22 06/10/22 History ipratropium bromide 21 mcg (0.03 2 spray intranasal TID 06/10/22 06/10/22 History %) nasal spray lidocaine 5 % topical ointment 1 applic topical BID PRN Pain 06/10/22 06/10/22 History midodrine 5 mg tablet 5 mg feeding tube TID 06/10/22 06/10/22 History nut.tx impaired digestive 1 ea feeding tube UD 06/10/22 06/10/22 History fxn-fiber 0.07 gram-1.5 kcal/mL oral liquid (Vital 1.5 Cali) polyethylene glycol 3350 17 17 g feeding tube DAILY PRN 06/10/22 06/10/22 History gram/dose oral powder (Miralax) Constipation riluzole 50 mg tablet 50 mg feeding tube DAILY 06/10/22 06/10/22 History senna leaf extract 176 mg/5 mL 15 ml feeding tube BID PRN 06/10/22 06/10/22 History oral syrup (senna) Constipation white petrolatum-mineral oil 57.3 1 applic ophthalmic (eye) HS 06/10/22 06/10/22 History %-42.5 % eye ointment (Lubricant Eye) lansoprazole 15 mg delayed 15 mg PO DAILY #0 tabs 06/16/22 Rx release,disintegrating tablet (Prevacid SoluTab) Patient History Medical History ALS (amyotrophic lateral sclerosis) DX FEBRUARY 2014 Atrial fibrillation with RVR isolated hx of, no further reoccurances Cardiac murmur AN Dry eye syndrome Left ventricular systolic dysfunction Sleep apnea USES APAP DEVICE (DX WITH ALS) ALWAYS USING >WITH 3L AT HS ONLY Slow gastric motility D/T ALS Uses feeding tube SYRINGE FEEDING THRU PEG TUBE (STILL SWALLOWS PILLS ORALLY) Surgical History History of esophagogastroduodenoscopy (EGD) History of herniorrhaphy History of tooth extraction Hx of LASIK PRK S/P percutaneous endoscopic gastrostomy (PEG) tube placement Family History Mother Family history of diabetes mellitus Other No family history of adverse response to anesthesia Social History Smoking Status: Never smoker Second Hand Exposure: No; Hx Alcohol Use: No Hx Substance Use: Yes Last Used Substance: Unknown Substance Use Type Other:: Medical Marijuana SL or salve Preferred Language: Lithuanian Communication Ability: Effective Buffing Line Set Up Worker Required: No Beliefs That Will Affect Care: None marital status: Current Living Situation: Spouse and Family Current Living Situation Comment: AND 3 SONS How many Children do You have: 3 Feels Safe at Home: Yes Assistive Devices: Hospital Bed and Scooter/Electric Scooter Review of System Constitutional: + sweats Physical Exam Constitutional: WD/WN, vitals as above Neck: trachea midline, no thyromegaly Results & Data ([facility]) Vital Signs (Past 12 Hours) Vital Signs Temp Pulse Resp BP Pulse Ox O2 Del Method FiO2 08/09/22 08:00 37.7 C H 110 H 14 100 08/09/22 08:00 103/67 08/09/22 07:00 37.8 C H 119 H 14 100 08/09/22 07:00 113/62 08/09/22 07:43 117 H 14 100 30 08/09/22 06:00 37.9 C H 117 H 14 91/58 L 98 Mechanical Vent 30 08/09/22 05:00 37.8 C H 113 H 14 101/64 100 Mechanical Vent 30 08/09/22 04:00 37.5 C 113 H 14 98/63 L 100 Mechanical Vent 30 08/09/22 03:00 36.8 C 115 H 14 119/81 97 Mechanical Vent 30 08/09/22 02:00 36.9 C 117 H 14 85/60 L 95 Mechanical Vent 30 08/09/22 04:00 30 08/09/22 03:28 116 H 14 98 30 08/09/22 01:00 36.8 C 112 H 14 98/63 L 97 Mechanical Vent 30 08/09/22 00:00 37.1 C 115 H 14 93/59 L 99 Mechanical Vent 30 08/09/22 00:00 30 08/08/22 23:00 38.0 C H 119 H 14 97/62 L 100 Mechanical Vent 30 Laboratory Results 08/09/22 08/09/22 08/09/22 09:20 06:14 04:17 WBC 15.29 H RBC 2.65 L Hgb 7.8 L Hct 24.8 L MCV 93.6 MCH 29.4 MCHC 31.5 L RDW Std Deviation 55.8 H RDW Coeff of Aissaotu 16.2 H Plt Count 301 MPV 9.9 Immature Gran % (Auto) 0.7 Neut % (Auto) 81.9 Lymph % (Auto) 9.3 [place] % (Auto) 6.3 Eos % (Auto) 1.7 Baso % (Auto) 0.1 Neut # (Auto) 12.53 H Lymph # (Auto) 1.42 [place] # (Auto) 0.96 H Eos # (Auto) 0.26 Baso # (Auto) 0.02 Immature Gran # (Auto) 0.10 H Polychromasia 1+ Sample Site L Radial POC pH 7.38 POC pCO2 41 POC pO2 115 H POC HCO3 24 POC Total CO2 26 POC Base Excess -1.0 POC ABG O2 Sat 98.0 H Praveen Test Pass O2 Delivery Device Ventilator POC O2 Rate 14 POC FiO2 30 Tidal Volume 530 PEEP 6 Sodium Potassium Chloride Carbon Dioxide Anion Gap BUN Creatinine Est Cr Clr Drug Dosing Est GFR ( Amer) Est GFR (Non-Af Amer) BUN/Creatinine Ratio Glucose POC Glucose 164 H Calcium Phosphorus Magnesium 08/09/22 08/08/22 08/08/22 04:17 23:51 18:33 WBC RBC Hgb Hct MCV MCH MCHC RDW Std Deviation RDW Coeff of Aissatou Plt Count MPV Immature Gran % (Auto) Neut % (Auto) Lymph % (Auto) Grand % (Auto) Eos % (Auto) Baso % (Auto) Neut # (Auto) Lymph # (Auto) Grand # (Auto) Eos # (Auto) Baso # (Auto) Immature Gran # (Auto) Polychromasia Sample Site POC pH POC pCO2 POC pO2 POC HCO3 POC Total CO2 POC Base Excess POC ABG O2 Sat Praveen Test O2 Delivery Device POC O2 Rate POC FiO2 Tidal Volume PEEP Sodium 147 H Potassium 3.0 L Chloride 113 H Carbon Dioxide 24 Anion Gap 10 BUN 12 Creatinine < 0.20 L Est Cr Clr Drug Dosing 565.9 Est GFR ( Amer) > 150.0 Est GFR (Non-Af Amer) > 150.0 BUN/Creatinine Ratio TNP Glucose 125 H POC Glucose 169 H 146 H Calcium 8.4 L Phosphorus 2.2 L Magnesium 1.5 L 08/08/22 12:48 WBC RBC Hgb Hct MCV MCH MCHC RDW Std Deviation RDW Coeff of Aissatou Plt Count MPV Immature Gran % (Auto) Neut % (Auto) Lymph % (Auto) Grand % (Auto) Eos % (Auto) Baso % (Auto) Neut # (Auto) Lymph # (Auto) Grand # (Auto) Eos # (Auto) Baso # (Auto) Immature Gran # (Auto) Polychromasia Sample Site POC pH POC pCO2 POC pO2 POC HCO3 POC Total CO2 POC Base Excess POC ABG O2 Sat Praveen Test O2 Delivery Device POC O2 Rate POC FiO2 Tidal Volume PEEP Sodium Potassium Chloride Carbon Dioxide Anion Gap BUN Creatinine Est Cr Clr Drug Dosing Est GFR ( Amer) Est GFR (Non-Af Amer) BUN/Creatinine Ratio Glucose POC Glucose 159 H Calcium Phosphorus Magnesium
[2022-08-09] MEDS: AMPICILLIN/SULBACTAM SOD 3,000 MG in DEXTROSE 5% 100 ML IV SCH ×3 (12:37→23:19)
[2022-08-09] MEDS: PEPTAMEN 1.5 CAL 1,000 ML BAG JT SCH (12:52)
--- NOTE | 2022-08-09 13:52 | Infectious Disease Consult ---
Date of Consultation August 09, 2022 Consultation Information Consultation was provided via telemedicine using two-way real-time interactive telecommunication between the patient and the telemedicine provider. For the duration of the visit, the provider was performing the assessment from a different facility than the patient. This includesuse of bluetooth stethoscope forauscultationperformed by the telepresenter that the telemedicine provider can hear if described in the physical exam. Underwriting Support Manager contact information: Please call [facility] [phone]. (Phone Number For Physician Use Only) History of Present Illness Attending Physician: Nallely Garcia MD Allergies Allergy/AdvReac Type Severity Reaction Status Date / Time No Known Allergies Allergy Verified 05/07/22 19:50 Home Medications Medication Instructions Recorded Confirmed Type acetaminophen 160 mg/5 mL oral 640 mg feeding tube Q6 PRN Pain, 05/07/22 06/10/22 History liquid (Children's Acetaminophen) Moderate atropine 1 % eye drops 1 drp sublingual QID PRN increased 05/07/22 06/10/22 History secretions cholecalciferol (vitamin D3) 25 1,000 unit feeding tube DAILY 05/07/22 06/10/22 History mcg (1,000 unit) capsule (Vitamin D3) ibuprofen 100 mg/5 mL oral 400 mg feeding tube Q6 PRN Pain, 05/07/22 06/10/22 History suspension Moderate melatonin 3 mg tablet 3 - 6 mg PO HS PRN Sleep 05/07/22 06/10/22 History nystatin 100,000 unit/gram topical 1 applic topical DAILY PRN Rash 05/07/22 06/10/22 History powder tramadol 50 mg tablet 50 mg feeding tube Q6H PRN Pain 05/07/22 06/10/22 History zinc oxide 20 % topical ointment 1 applic topical TID 05/07/22 06/10/22 History A,D-aloe gvag-glifsixnbm-m.pet 1 ea topical BID PRN scrotal area 06/10/22 06/10/22 History topical ointment carboxymethylcellulose sodium 0.5 1 drp ophthalmic (eye) UD PRN Dry 06/10/22 06/10/22 History % eye drops Eye(S) dextran 70-hypromellose (PF) 0.1 1 drp OPB QID 06/10/22 06/10/22 History %-0.3 % eye drops in a dropperette (Artificial Tears (PF)) famotidine 40 mg/5 mL (8 mg/mL) 20 mg feeding tube BID PRN 06/10/22 06/10/22 History oral suspension Indigestion guaifenesin 100 mg/5 mL oral liquid 200 mg feeding tube BID PRN Cough 06/10/22 06/10/22 History ipratropium bromide 21 mcg (0.03 2 spray intranasal TID 06/10/22 06/10/22 History %) nasal spray lidocaine 5 % topical ointment 1 applic topical BID PRN Pain 06/10/22 06/10/22 History midodrine 5 mg tablet 5 mg feeding tube TID 06/10/22 06/10/22 History nut.tx impaired digestive 1 ea feeding tube UD 06/10/22 06/10/22 History fxn-fiber 0.07 gram-1.5 kcal/mL oral liquid (Vital 1.5 Cali) polyethylene glycol 3350 17 17 g feeding tube DAILY PRN 06/10/22 06/10/22 History gram/dose oral powder (Miralax) Constipation riluzole 50 mg tablet 50 mg feeding tube DAILY 06/10/22 06/10/22 History senna leaf extract 176 mg/5 mL 15 ml feeding tube BID PRN 06/10/22 06/10/22 History oral syrup (senna) Constipation white petrolatum-mineral oil 57.3 1 applic ophthalmic (eye) HS 06/10/22 06/10/22 History %-42.5 % eye ointment (Lubricant Eye) lansoprazole 15 mg delayed 15 mg PO DAILY #0 tabs 06/16/22 Rx release,disintegrating tablet (Prevacid SoluTab) Patient History Medical History ALS (amyotrophic lateral sclerosis) DX FEBRUARY 2014 Atrial fibrillation with RVR isolated hx of, no further reoccurances Cardiac murmur AN Dry eye syndrome Left ventricular systolic dysfunction Sleep apnea USES APAP DEVICE (DX WITH ALS) ALWAYS USING >WITH 3L AT HS ONLY Slow gastric motility D/T ALS Uses feeding tube SYRINGE FEEDING THRU PEG TUBE (STILL SWALLOWS PILLS ORALLY) Surgical History History of esophagogastroduodenoscopy (EGD) History of herniorrhaphy History of tooth extraction Hx of LASIK PRK S/P percutaneous endoscopic gastrostomy (PEG) tube placement Family History Mother Family history of diabetes mellitus Other No family history of adverse response to anesthesia Social History Smoking Status: Never smoker Second Hand Exposure: No; Hx Alcohol Use: No Hx Substance Use: Yes Last Used Substance: Unknown Substance Use Type Other:: Medical Marijuana SL or salve Preferred Language: Armenian Communication Ability: Effective 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 Beliefs That Will Affect Care: Spiritism and Spiritual marital status: Current Living Situation: Spouse and Family Current Living Situation Comment: AND 3 SONS How many Children do You have: 3 Feels Safe at Home: Yes Assistive Devices: Hospital Bed and Scooter/Electric Scooter Results & Data ([facility]) Vital Signs (Past 12 Hours) Vital Signs Temp Pulse Resp BP Pulse Ox O2 Del Method FiO2 08/09/22 12:14 100 H 14 99 30 08/09/22 11:00 37.4 C 107 H 14 96 08/09/22 11:00 103/61 08/09/22 10:00 37.7 C H 112 H 13 97 08/09/22 10:00 116/66 08/09/22 09:00 38.1 C H 120 H 14 96 08/09/22 09:00 100/62 08/09/22 08:49 97/61 L 08/09/22 08:49 38.1 C H 107 H 14 100 08/09/22 08:00 30 08/09/22 08:00 Mechanical Vent 30 08/09/22 08:00 37.7 C H 110 H 14 100 08/09/22 08:00 103/67 08/09/22 07:00 37.8 C H 119 H 14 100 08/09/22 07:00 113/62 08/09/22 07:43 117 H 14 100 30 08/09/22 06:00 37.9 C H 117 H 14 91/58 L 98 Mechanical Vent 30 08/09/22 05:00 37.8 C H 113 H 14 101/64 100 Mechanical Vent 30 08/09/22 04:00 37.5 C 113 H 14 98/63 L 100 Mechanical Vent 30 08/09/22 03:00 36.8 C 115 H 14 119/81 97 Mechanical Vent 30 08/09/22 02:00 36.9 C 117 H 14 85/60 L 95 Mechanical Vent 30 08/09/22 04:00 30 08/09/22 03:28 116 H 14 98 30 Laboratory Results Selected Entries 08/09/22 11:00 Pulse Rate 107 H Microbiology 08/05/22 17:26 Blood Aerobic Blood Culture - Preliminary No growth in Aerobic bottle after 48 hours. 08/05/22 17:26 Blood Anaerobic Blood Culture - Final 08/05/22 15:00 Blood Aerobic Blood Culture - Preliminary No growth in Aerobic bottle after 48 hours. 08/05/22 15:00 Blood Anaerobic Blood Culture - Preliminary No growth in Anaerobic bottle after 48 hours. 08/05/22 14:30 Sputum,Trach Gram Stain - Final 08/05/22 14:30 Sputum,Trach Sputum Culture - Final Staphylococcus aureus Klebsiella pneumoniae 08/06/22 09:33 Blood Fungal Smear - Final Chest X-Ray 08/08/22 07:17 XR chest 1V portable HISTORY: 37 years-old Male f/u follow-up study in a patient with pleural effusions COMPARISON: Chest CT 08/05/2022 TECHNIQUE: Semierect AP view of the chest FINDINGS: Tracheostomy cannula overlies the midline at the level the clavicular heads. The cardiac silhouette is enlarged. No pneumothorax or overt pulmonary edema. Small left pleural effusion with persistent bibasilar opacities. No significant change from prior. Bones appear grossly intact. IMPRESSION: 1. Stable positioning of the tracheostomy cannula. 2. Small left pleural effusion with persistent bibasilar opacities suspicious for pneumonia versus aspiration pneumonitis. ACT 112: Negative or not required by law. The above report was generated using voice recognition software. It may contain grammatical, syntax or spelling errors. Electronically signed by: James Brody M.D. 08/08/2022 9:38 AM Medications Administered Current Inpatient Medications Acetaminophen (Acetaminophen 1000 Mg/100 Ml Iv) 1,000 mg IV Q8H PRN PRN Reason: FEVER >38C Stop: 08/11/22 08:45 Last Admin: 08/09/22 09:14 Dose: 1,000 mg Albuterol (Albuterol 0.083% Nebu Soln 3 Ml Vial) 2.5 mg NEB Q6R PRN; Protocol PRN Reason: cough wheeze Stop: 09/05/22 00:03 Last Admin: 08/06/22 08:05 Dose: 2.5 mg Artificial Tears (Artificial Tears) 1 drops OP UD PRN PRN Reason: Dry Eye(S) Stop: 09/05/22 00:36 Artificial Tears (Artificial Tears) 1 drops OP QID MY[facility] Stop: 09/05/22 08:59 Last Admin: 08/09/22 12:38 Dose: 1 drops Atropine Sulfate (Atropine Sulfate 1% Op Soln 5 Ml Btl) 1 drops SL QID PRN PRN Reason: increased secretions Stop: 09/05/22 00:05 Dextrose (Dextrose 50% 50 Ml Syringe) 25 - 50 ml IV UD PRN; Protocol PRN Reason: Hypoglycemia Protocol Stop: 09/06/22 10:59 Enoxaparin Sodium (Enoxaparin Inj 40 Mg/0.4 Ml Syr) 40 mg SQ QAM [facility] Stop: 09/05/22 08:59 Last Admin: 08/09/22 09:15 Dose: 40 mg Enteral Nutritional Formula (Peptamen 1.5 Cali 1,000 Ml Bag) 1,000 ml JT UD MYNOR; Protocol Stop: 09/05/22 10:59 Last Admin: 08/09/22 12:52 Dose: 1,000 ml Famotidine (Famotidine Susp 20 Mg/2.5 Ml Udp) 20 mg NG BID PRN PRN Reason: Indigestion Stop: 09/05/22 02:29 Glucagon (Glucagon For Inj 1 Mg Vial) 1 mg IM UD PRN; Protocol PRN Reason: Hypoglycemia Protocol Stop: 09/06/22 10:59 Glucose (Glucose 40% Gel 15 Gm Tube) 15 - 30 gm PO UD PRN; Protocol PRN Reason: Hypoglycemia Protocol Stop: 09/06/22 10:59 Glucose (Glucose 10 Tab/Tube) 4 - 8 tab PO UD PRN; Protocol PRN Reason: Hypoglycemia Protocol Stop: 09/06/22 10:59 Guaifenesin (Guaifenesin Sugar Free 100 Mg/5 Ml Udc) 200 mg GT BID PRN PRN Reason: Cough Stop: 09/05/22 00:05 Dextrose (D5w) 1,000 mls @ 125 mls/hr IV .Q8H [facility] Stop: 08/09/22 14:29 Last Admin: 08/09/22 09:15 Dose: 125 mls/hr Ampicillin Sodium/Sulbactam (Sodium 3,000 mg/ Dextrose) 108 mls @ 216 mls/hr IV Q6H [facility]; Protocol Stop: 08/15/22 11:59 Last Infusion: 08/09/22 13:42 Dose: Infused Insulin Aspart (Insulin Aspart Per Unit) 0 units SC Q6 [facility] Stop: 09/06/22 11:59 Last Admin: 08/09/22 12:52 Dose: 5 units Lansoprazole (Lansoprazole 15 Mg Soltab) 15 mg PO DAILY [facility] Stop: 09/05/22 08:59 Last Admin: 08/09/22 09:15 Dose: 15 mg Lidocaine (Lidocaine 5% Oint 30 Gm Tube) 1 appln TOP BID PRN PRN Reason: Pain Stop: 09/05/22 00:05 Melatonin (Melatonin 3 Mg Tab) 3 - 6 mg PO HS PRN PRN Reason: Sleep Stop: 09/05/22 00:05 Midodrine (Midodrine Hcl 2.5 Mg Tab) 5 mg PO TID@0800,1200,1800 [facility] Stop: 09/05/22 00:29 Last Admin: 08/09/22 12:38 Dose: 5 mg Miscellaneous (Carbohydrates For Hypoglycemia ) 15 - 30 gm PO UD PRN PRN Reason: Hypoglycemia Treatment Stop: 09/06/22 10:59 Multi-Ingredient Cream (Artificial Tears Op Oint 3.5 Gm Tube) 1 appln OP HS [facility] Stop: 09/05/22 00:05 Last Admin: 08/08/22 20:37 Dose: 1 appln Non-Formulary Medication (Zinc Oxide) 1 appln TOP TID [facility] Stop: 09/05/22 08:59 Last Admin: 08/09/22 12:39 Dose: 1 appln Nystatin (Nystatin Powder 15gm Btl) 1 appln EXT DAILY PRN PRN Reason: Rash Stop: 09/05/22 00:05 Polyethylene Glycol (Polyethylene (Miralax) 17 Gm Pack) 17 gm PEG DAILY PRN PRN Reason: Constipation Stop: 09/05/22 00:05 Polymyxin/Trimethoprim Sulfate (Trimethoprim/Polymyxin B) 2 drops OP Q6 [facility] Stop: 08/14/22 17:59 Last Admin: 08/09/22 12:38 Dose: 2 drops Sodium Chloride (Sodium Chlor 7% 4 Ml Neb) 4 ml NEB BIDR [facility] Stop: 09/05/22 18:59 Last Admin: 08/09/22 07:26 Dose: 4 ml Sterile Water (Tube Feeding Water Flush) 250 ml JT Q8H [facility] Stop: 09/07/22 09:59 Last Admin: 08/09/22 09:16 Dose: 250 ml Tramadol HCl (Tramadol Hcl 50 Mg Tablet) 50 mg NG Q6H PRN PRN Reason: Pain Stop: 09/05/22 00:05 Last Admin: 08/06/22 09:47 Dose: 50 mg Vitamin D (Cholecalciferol 1,000 Units 25 Mcg Tab) 1,000 units JT DAILY [facility] Stop: 09/05/22 08:59 Last Admin: 08/09/22 09:15 Dose: 1,000 units
[2022-08-09] MEDS: ARTIFICIAL TEARS OP OINT 3.5 GM TUBE OP SCH (20:33)
--- NOTE | 2022-08-09 22:06 | Hospitalist Progress Note ---
Date of Service August 09, 2022 Assessment & Plan (1) Severe sepsis: Plan: Met sepsis criteria on admission with leukocytosis 27.5, febrile, lactate 3.[address] chest with Tracheostomy cannula in place with mild tracheobronchial secretions. Small left pleural effusion with bibasilar consolidation. Additional centrilobular groundglass nodular opacities are present within the superior segments of the lower lobes. Findings are suggestive of pneumonia versus aspiration. CT abd/pelvis showed resolving acute pancreatitis with decreased size of the numerous peripancreatic fluid collections suggestive of pseudocysts. sputum cx positive for staph aureus and klebsiella pna blood cx no growth He was on IV Zosyn and Vanco Pt was started on caspofungin that was discontinued on 08/08 since cx no growth Currently on IV unasyn WBC continue trending down ID on board recommended to continue current IV abx Continue monitor closely in the ICU (2) HENRI (acute kidney injury): Plan: - Cr normally <0.2, now 0.5. BUN 4 ->242, AG 27 - S/p IVF - Avoid nephrotoxics. - patient recieved contrast in the ED - Lab improved with BUN 23 and Anion gap 10 - Continue monitor BMP (3) Abnormal LFTs: Plan: - likely related to sepsis. - CT A/P noted - monitor (4) Lactic acidosis: Plan: - lactate improved with IVF resuscitation. (5) High anion gap metabolic acidosis: Plan: AG 27 on admission from sepsis and HENRI. Received fluids Anion gap 10 today (6) Chronic respiratory failure: Plan: - wean to baseline vent settings per ICU (7) Electrolyte imbalance: Plan: Electrolytes imbalance K 3, phosp 2.2 and Magnesium 1.5 Electrolytes replaced Continue monitor (8) ALS (amyotrophic lateral sclerosis): Plan: - bedbound with quadriplegia, has trach on vent. - continue vent support. - continue home riluzole (9) Left ventricular systolic dysfunction: Plan: - dry, continue ivf with sepsis - monitor volume status closely (10) Pseudocyst of pancreas: Plan: CT with resolving acute pancreatitis with decreasing size of pseudocysts. Stable Plan DVT ppx- sc lovenox Code Status: Full Code Dispo: ICU Admission and Anticipated Discharge Date Admission Date: August 05, 2022 Subjective Pt was seen and examined for follow sepsis Lying in bed with no acute distress with at bedside He said his only complaint is bedsore Denies any chest pain, palpitation, dizziness and SOB Review of Systems 2 Review of Systems: All systems reviewed & are unremarkable except as noted in Subjective Physical Exam Physical Exam: General Appearance:Moderately built and nourished,Chronic ill appearing Head: normocephalic, Atraumatic Eyes: normal inspection, EOMI Neck: supple, Trachea midline,+Trach +vent Respiratory/Chest: Decreased breath sounds Cardiovascular: S1, S2, No murmur Abdomen/GI:+ +J tube, Non tender Extremities/Musculoskeletal:Atrophy, Trace edema Neurologic/Psych:AAO, Quadriplegic, ALS Skin: normal color, warm Results & Data Results & Data ([facility]) Vital Signs (Past 12 Hours) Vital Signs Temp Pulse Pulse Resp BP Pulse Ox O2 Del Method 08/09/22 21:30 111 H 08/09/22 20:30 38.1 C H 117 H 14 100 08/09/22 20:00 38.2 C H 118 H 12 99 08/09/22 20:00 112/71 08/09/22 19:30 38.2 C H 108 H 14 100 08/09/22 20:00 08/09/22 20:00 Mechanical Vent 08/09/22 19:00 38.1 C H 116 H 12 100 08/09/22 19:00 96/59 L 08/09/22 18:00 37.5 C 107 H 12 100 08/09/22 18:00 109/72 08/09/22 17:00 37.3 C 111 H 12 100 08/09/22 17:00 115/65 08/09/22 19:12 120 H 14 99 08/09/22 19:11 120 H 14 100 Mechanical Vent 08/09/22 16:00 37.3 C 108 H 12 100 Mechanical Vent 08/09/22 16:00 103/65 08/09/22 15:00 37.1 C 105 H 14 100 08/09/22 15:00 103/62 08/09/22 14:00 37.2 C 105 H 14 98 08/09/22 14:00 101/61 08/09/22 16:00 08/09/22 16:00 103 H 08/09/22 15:40 103 H 14 100 08/09/22 13:00 37.7 C H 104 H 14 97 08/09/22 13:00 106/65 08/09/22 12:00 37.7 C H 101 H 14 97 08/09/22 12:00 95/61 L 08/09/22 12:00 08/09/22 12:14 100 H 14 99 08/09/22 11:00 37.4 C 107 H 14 96 08/09/22 11:00 103/61 FiO2 08/09/22 21:30 08/09/22 20:30 08/09/22 20:00 08/09/22 20:00 08/09/22 19:30 08/09/22 20:00 30 08/09/22 20:00 08/09/22 19:00 08/09/22 19:00 08/09/22 18:00 08/09/22 18:00 08/09/22 17:00 08/09/22 17:00 08/09/22 19:12 30 08/09/22 19:11 30 08/09/22 16:00 30 08/09/22 16:00 08/09/22 15:00 08/09/22 15:00 08/09/22 14:00 08/09/22 14:00 08/09/22 16:00 30 08/09/22 16:00 08/09/22 15:40 30 08/09/22 13:00 08/09/22 13:00 08/09/22 12:00 08/09/22 12:00 08/09/22 12:00 30 08/09/22 12:14 30 08/09/22 11:00 08/09/22 11:00
[2022-08-10] MEDS: TUBE FEEDING WATER FLUSH JT SCH ×3 (03:30→17:17)
[2022-08-10] MEDS: ACETAMINOPHEN 1000 MG/100 ML IV IV PRN ×3 (04:51→20:42)
[2022-08-10] MEDS: INSULIN ASPART PER UNIT SC SCH ×4 (05:25→23:27)
[2022-08-10] MEDS: AMPICILLIN/SULBACTAM SOD 3,000 MG in DEXTROSE 5% 100 ML IV SCH ×4 (05:25→23:11)
[2022-08-10] MEDS: TRIMETHOPRIM/POLYMYXIN B OP SCH ×4 (05:26→23:12)
[2022-08-10] MEDS: PEPTAMEN 1.5 CAL 1,000 ML BAG JT SCH (06:05)
[2022-08-10 06:10] LABS: Basophils # (auto) 0.01 K/uL (0-0.2); Basophils % (auto) 0.1 %; Eosinophils # (auto) 0.29 K/uL (0-0.50); Eosinophils % (auto) 1.9 %; Hematocrit (blood only) 24.2 % (40.1-51.0); Hemoglobin 7.6 g/dl (14.0-18.0); Immature Granulocytes # (auto) 0.13 K/uL (0.00-0.02); Immature Granulocytes % (auto) 0.8 %; Lymphocytes # (auto) 1.41 K/uL (1.2-3.4); Lymphocytes % (auto) 9.1 %; Mean Corpuscular Hemoglobin 29.8 pg (25.0-34.0); Mean Corpuscular Hgb Conc 31.4 g/dL (32.0-36.0); Mean Corpuscular Volume 94.9 fL (80.0-100.0); Monocytes # (auto) 0.82 K/uL (0.24-0.82); Monocytes % (auto) 5.3 %; Neutrophils # (auto) 12.78 K/uL (1.4-6.5); Neutrophils % (auto) 82.8 %; Platelet Count 315 K/uL (130-400); RDW Coefficient of Variation 16.3 % (11.5-14.5); RDW Standard Deviation 56.6 fL (36.4-46.3); Red Blood Count 2.55 M/uL (4.63-6.08); White Blood Count 15.44 K/ul (4.8-10.8)
[2022-08-10 06:43] LABS: RBC Morphology Unremarkable
[2022-08-10] MEDS: SODIUM CHLOR 7% 4 ML NEB NEB SCH ×2 (07:24→19:47)
[2022-08-10 07:26] LABS: Anion Gap 9 (3-11); Blood Urea Nitrogen 8 mg/dl (6-23); Calcium 8.3 mg/dl (8.5-10.1); Carbon Dioxide 24 mmol/L (21-32); Chloride 113 mmol/L (98-107); Creatinine Clr Calc Pharmacy 565.9 ml/min; Est GFR (African American) > 150.0 ml/min; Est GFR (Non-African American) > 150.0 ml/min; Glucose 159 mg/dl (70-99(Fasting)); Magnesium 1.5 mg/dl (1.7-2.4); Phosphorus 1.9 mg/dl (2.5-4.9); Potassium 3.6 mmol/L (3.5-5.1); Sodium 146 mmol/L (136-145)
[2022-08-10] MEDS ORDERED: POTASSIUM PHOS 3 MMOL/1 ML INFUSION IV STA (08:40)
[2022-08-10] MEDS: DEXTROSE 5% 1,000 ML IV SCH ×2 (08:57→16:49)
[2022-08-10] MEDS: MIDODRINE HCL 2.5 MG TAB PO SCH ×3 (08:57→17:30)
[2022-08-10] MEDS: MAGNESIUM SULFATE / D5W 1 GM/100 ML BAG IV SCH ×3 (08:57→12:59)
[2022-08-10] MEDS: ENOXAPARIN INJ 40 MG/0.4 ML SYR SQ SCH (08:58)
[2022-08-10] MEDS: ARTIFICIAL TEARS OP SCH ×4 (08:58→20:30)
[2022-08-10] MEDS: LANSOPRAZOLE 15 MG SOLTAB PO SCH (08:58)
[2022-08-10] MEDS: CHOLECALCIFEROL 1,000 UNITS 25 MCG TAB JT SCH (08:58)
[2022-08-10] MEDS: NON-FORMULARY MEDICATION (Zinc Oxide 20 % Ointment) TOP SCH ×3 (08:59→20:31)
[2022-08-10] MEDS ORDERED: POTASSIUM PHOSPHATE 30 MMOL in SODIUM CHLORIDE 0.9% 500 ML IV ONE (09:30)
--- NOTE | 2022-08-10 10:43 | Critical Care Progress Note ---
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 coli in the past s/p treatment Tracheal aspirate growing Klebsiella which is pansensitive except for cefazolin Also growing MSSA which is pansensitive Cefepime was changed to Unasyn on 08/09/2022 Procalcitonin 1.28 Continue with broad-spectrum antibiotics for the time being -- Hypotension --> resolved Responded to fluid Patient is also on midodrine chronically 5 mg 3 times daily, continue with same Continue monitor MAP, keep greater than 65 if it is persistently low then start vasopressors -- Vent dependent respiratory failure Secondary to underlying diagnosis of ALS Continue with vent support Patient does not have any significant change from his baseline vent settings --Transaminitis --> trending down Elevated AST/ALT as well as alk phos Patient has chronic elevation of alk phos Mild transaminitis is likely from underlying hypertension that the patient presented with -- S/p hypernatremia with hyperchloremia Getting 250 mL every 8 hours Free water flushes through the GJ tube Continue to monitor --Elevated BUN --> improving With almost normal creatinine level Patient is not on steroids at home ? High-protein in diet/feeding H&H is also stable unlikely to be upper GI bleed --ALS Continue with riluzole --Prophylaxis VTE: Lovenox GI: Lansoprazole Lines: Peripheral, G-J-tube Diet: Tube feeds Plan: In/out: + +303, urine output 30-28 Hypokalemia, hypomagnesemia as well as hypophosphatemia being replaced Will give D5 water 125 mill an hour for 1.5 L for hyponatremia H&H is stable Continue with Unasyn. Blood culture and fungal culture has been negative to date Continue with CoughAssist. Please note the above document was generated using voice recognition software. It may contain grammatical, syntax or spelling errors.Any formal questions or concerns about the content, text or information contained within the body of this dictation should be directly addressed to the provider for clarification. Admission and Anticipated Discharge Date Admission Date: August 05, 2022 Subjective Patient seen and examined at bedside. No acute distress, no adverse events overnight. Today patient is more alert. Denies any headache, no chest pain, no abdominal pain. Overall he states that he is feeling better compared to before Unfortunately still spiking fever, T-max 38.2 Review of Systems Review of Systems: All systems reviewed & are unremarkable except as noted in Subjective Physical Exam Physical Exam: Constitutional: No acute distress HEENT: PERRLA, positive trach Respiratory system: Decreased air entry bilaterally, no wheeze, positive rhonchi bilaterally, mild crackles bilateral lower lobes CVS: S1-S2 positive, no murmurs or gallops Abdomen: Soft, nontender, nondistended, positive bowel sounds x4, positive G-J tube Extremities: +2 pulses bilaterally radialis/ dorsalis pedis, no cyanosis, +1 pitting edema bilateral lower extremity Neuro: Awake alert oriented to self and place Psych: Normal mood and affect G/U: Positive Varela Musculoskeletal: Stage I-II decubitus ulcer Skin: no rashes, warm and dry Lymphatic: no cervical or axillary lymphadenopathy Results & Data Results & Data ([facility]) Vital Signs (Past 12 Hours) Vital Signs Temp Pulse Resp BP Pulse Ox O2 Del Method FiO2 08/10/22 10:00 37.5 C 112 H 14 111/68 100 Mechanical Vent 30 08/10/22 09:00 37.6 C H 108 H 14 112/73 100 Mechanical Vent 30 08/10/22 08:00 37.7 C H 110 H 14 112/66 96 Mechanical Vent 30 08/10/22 07:00 37.7 C H 104 H 14 101/62 99 Mechanical Vent 30 08/10/22 08:00 30 08/10/22 08:00 109 H 08/10/22 08:05 112 H 14 96 30 08/10/22 05:00 38.0 C H 120 H 12 94 08/10/22 04:30 38.1 C H 119 H 14 99 08/10/22 04:00 38.2 C H 110 H 14 99 08/10/22 04:00 134/78 08/10/22 04:00 30 10/08/22 03:30 38.1 C H 106 H 14 100 08/10/22 03:00 38.0 C H 108 H 14 99 08/10/22 03:00 103/60 08/10/22 02:30 37.9 C H 102 H 14 99 08/10/22 02:00 37.7 C H 108 H 12 100 08/10/22 02:00 112/66 08/10/22 01:30 37.7 C H 111 H 13 99 08/10/22 02:24 106 H 14 99 30 08/10/22 01:00 37.7 C H 114 H 12 97 08/10/22 01:00 113/62 08/10/22 00:30 37.6 C H 115 H 14 98 08/10/22 00:00 37.7 C H 115 H 14 96 08/10/22 00:00 105/59 L 08/09/22 23:30 37.8 C H 112 H 14 98 08/09/22 23:00 37.8 C H 110 H 14 99 08/09/22 23:00 111/63 08/10/22 00:00 110 H 08/10/22 00:00 30 Laboratory Results 08/10/22 05:29 08/10/22 05:29 Coding Level of Care Code 39820 Subseq Hosp Care Lvl 2 Diagnoses Ventilator dependence Z99.11 Severe sepsis A41.9; R65.20 HENRI (acute kidney injury) N17.9 ALS (amyotrophic lateral sclerosis) G12.21
[2022-08-10] MEDS: traMADol HCL 50 MG TABLET NG PRN (15:12)
--- NOTE | 2022-08-10 16:57 | Hospitalist Progress Note ---
Date of Service August 10, 2022 Assessment & Plan (1) Severe sepsis: Plan: Met sepsis criteria on admission with leukocytosis 27.5, febrile, lactate 3.9 and tachycardia -likely pulm source, +sputum culture CT chest with Tracheostomy cannula in place with mild tracheobronchial secretions. Small left pleural effusion with bibasilar consolidation. Additional centrilobular groundglass nodular opacities are present within the superior segments of the lower lobes. Findings are suggestive of pneumonia versus aspiration. CT abd/pelvis showed resolving acute pancreatitis with decreased size of the numerous peripancreatic fluid collections suggestive of pseudocysts. sputum cx positive for staph aureus and klebsiella pna blood cx no growth He was on IV Zosyn and Vanco Pt was started on caspofungin that was discontinued on 08/08 since cx no growth Currently on IV unasyn WBC has plateaued at 16K today Still febrile for past 3 days. Continue monitor closely in the ICU (2) HENRI (acute kidney injury): Plan: -elevated BUN-resolved. Uncertain etiology - S/p IVF - Avoid nephrotoxics. - Lab improved with BUN 23 and Anion gap 10 - Continue monitor BMP (3) Abnormal LFTs: Plan: - likely related to sepsis-improved - CT A/P noted - monitor (4) Lactic acidosis: Plan: - lactate improved with IVF resuscitation. (5) High anion gap metabolic acidosis: Plan: AG 27 on admission from sepsis and HENRI. Received fluids-resolved. (6) Chronic respiratory failure: Plan: - wean to baseline vent settings per ICU, ventilator dependent. (7) Electrolyte imbalance: Plan: resolved, cont to monitor closely (8) ALS (amyotrophic lateral sclerosis): Plan: - bedbound with quadriplegia, has trach on vent. - continue vent support. - continue home riluzole (9) Left ventricular systolic dysfunction: Plan: euvolemic, off IVF. continues with free water flushes (10) Pseudocyst of pancreas: Plan: CT with resolving acute pancreatitis with decreasing size of pseudocysts. Stable Plan DVT ppx- sc lovenox Code Status: Full Code [facility]po[facility] Admission and Anticipated Discharge Date Admission Date: August 05, 2022 Subjective 37 yo M with ALS presents with severe sepsis from presumed pulmonary source. He remains in the ICU Day 6, not sedated and ventilator dependent through trach site. Recently admitted here for an infected pancreatic pseudocyst and was transferred to [facility] where he was discharged on cipro. Today he reports that his sacral ulcer is always something to manage. He is preferable to the sensicare lotion being given, and if fine without using zinc oxide which he uses at home. He denies any other pain currently. Respiratory therapy was just in to check trach site which looks good and to provide suction for comfort. He is still febrile with some decrease of his fever curve today and remains on unasyn Review of Systems Review of Systems: All systems were reviewed and negative except as indicated above. Physical Exam Physical Exam: CONSTITUTIONAL: WNWD, vitals as above, generally bedbound from functional quadriplegia in ALS and vented through trach. EYES: normal conjunctivae, no scleral icterus,watering eyes noted on occasion. ENT: external ear and nose normal, MMM NECK: tracheostomy present with ventilator connection RESPIRATORY: clear to auscultation bilaterally, no crackles, rales or wheezes, normal respiratory effort CARDIOVASCULAR: regular rate and rhythm, S1 and 2 heard without murmurs, gallops or rubs, no JVD, no peripheral edema CHEST: inspection of chest was normal GASTROINTESTINAL: soft, nontender, ND, +PEG sites, no guarding MUSCULOSKELETAL: functional quadriplegia, head is normocephalic and atraumatic SKIN: warm and dry NEUROLOGIC: functional quadriplegia, normal cognition, nonverbal and communicates with his eyes onto a keyboard, able to shake his head yes or no, but not much head movement outside of that, no tremor PSYCHIATRIC: alert cooperative and oriented to person, place and time. Results & Data Results & Data ([facility]) Vital Signs (Past 12 Hours) Vital Signs Temp Pulse Resp BP Pulse Ox O2 Del Method FiO2 08/10/22 16:00 30 08/10/22 16:00 106 H 08/10/22 15:01 110 H 14 96 30 08/10/22 14:00 37.9 C H 103 H 14 104/60 96 Mechanical Vent 30 08/10/22 13:00 38.1 C H 103 H 14 110/67 99 Mechanical Vent 30 08/10/22 12:00 38.0 C H 111 H 14 116/72 100 Mechanical Vent 30 08/10/22 12:00 30 08/10/22 11:50 109 H 14 99 30 08/10/22 08:00 Mechanical Vent 30 08/10/22 11:00 37.8 C H 108 H 14 110/68 99 Mechanical Vent 30 08/10/22 10:00 37.5 C 112 H 14 111/68 100 Mechanical Vent 30 08/10/22 09:00 37.6 C H 108 H 14 112/73 100 Mechanical Vent 30 08/10/22 08:00 37.7 C H 110 H 14 112/66 96 Mechanical Vent 30 08/10/22 07:00 37.7 C H 104 H 14 101/62 99 Mechanical Vent 30 08/10/22 08:00 30 08/10/22 08:00 109 H 08/10/22 08:05 112 H 14 96 30 08/10/22 05:00 38.0 C H 120 H 12 94 Laboratory Results Short CBC 08/10/22 Range/Units 05:29 WBC 15.44 H (4.8-10.8) K/ul Hgb 7.6 L (14.0-18.0) g/dl Hct 24.2 L (40.1-51.0) % Plt Count 315 (130-400) K/uL BMP 08/10/22 05:29 Sodium 146 H Potassium 3.6 Chloride 113 H Carbon Dioxide 24 BUN 8 Creatinine < 0.20 L Glucose 159 H Calcium 8.3 L Medications Administered Current Inpatient Medications Acetaminophen (Acetaminophen 1000 Mg/100 Ml Iv) 1,000 mg IV Q8H PRN PRN Reason: FEVER >38C Stop: 08/11/22 08:45 Last Admin: 08/10/22 12:28 Dose: 1,000 mg Albuterol (Albuterol 0.083% Nebu Soln 3 Ml Vial) 2.5 mg NEB Q6R PRN; Protocol PRN Reason: cough wheeze Stop: 09/05/22 00:03 Last Admin: 08/06/22 08:05 Dose: 2.5 mg Artificial Tears (Artificial Tears) 1 drops OP UD PRN PRN Reason: Dry Eye(S) Stop: 09/05/22 00:36 Artificial Tears (Artificial Tears) 1 drops OP QID MYNOR Stop: 09/05/22 08:59 Last Admin: 08/10/22 16:49 Dose: 1 drops Atropine Sulfate (Atropine Sulfate 1% Op Soln 5 Ml Btl) 1 drops SL QID PRN PRN Reason: increased secretions Stop: 09/05/22 00:05 Dextrose (Dextrose 50% 50 Ml Syringe) 25 - 50 ml IV UD PRN; Protocol PRN Reason: Hypoglycemia Protocol Stop: 09/06/22 10:59 Enoxaparin Sodium (Enoxaparin Inj 40 Mg/0.4 Ml Syr) 40 mg SQ QAM MYNOR Stop: 09/05/22 08:59 Last Admin: 08/10/22 08:58 Dose: 40 mg Enteral Nutritional Formula (Peptamen 1.5 Cali 1,000 Ml Bag) 1,000 ml JT UD MYNOR; Protocol Stop: 09/05/22 10:59 Last Admin: 08/10/22 06:05 Dose: 1,000 ml Famotidine (Famotidine Susp 20 Mg/2.5 Ml Udp) 20 mg NG BID PRN PRN Reason: Indigestion Stop: 09/05/22 02:29 Glucagon (Glucagon For Inj 1 Mg Vial) 1 mg IM UD PRN; Protocol PRN Reason: Hypoglycemia Protocol Stop: 09/06/22 10:59 Glucose (Glucose 40% Gel 15 Gm Tube) 15 - 30 gm PO UD PRN; Protocol PRN Reason: Hypoglycemia Protocol Stop: 09/06/22 10:59 Glucose (Glucose 10 Tab/Tube) 4 - 8 tab PO UD PRN; Protocol PRN Reason: Hypoglycemia Protocol Stop: 09/06/22 10:59 Guaifenesin (Guaifenesin Sugar Free 100 Mg/5 Ml Udc) 200 mg GT BID PRN PRN Reason: Cough Stop: 09/05/22 00:05 Ampicillin Sodium/Sulbactam (Sodium 3,000 mg/ Dextrose) 108 mls @ 216 mls/hr IV Q6H MYNOR; Protocol Stop: 08/15/22 11:59 Last Infusion: 08/10/22 12:56 Dose: Infused Dextrose (D5w) 1,000 mls @ 125 mls/hr IV .Q8H MYNOR Stop: 08/10/22 20:44 Last Admin: 08/10/22 16:49 Dose: 125 mls/hr Insulin Aspart (Insulin Aspart Per Unit) 0 units SC Q6 MYNOR Stop: 09/06/22 11:59 Last Admin: 08/10/22 11:44 Dose: 6 units Lansoprazole (Lansoprazole 15 Mg Soltab) 15 mg PO DAILY MYNOR Stop: 09/05/22 08:59 Last Admin: 08/10/22 08:58 Dose: 15 mg Lidocaine (Lidocaine 5% Oint 30 Gm Tube) 1 appln TOP BID PRN PRN Reason: Pain Stop: 09/05/22 00:05 Melatonin (Melatonin 3 Mg Tab) 3 - 6 mg PO HS PRN PRN Reason: Sleep Stop: 09/05/22 00:05 Midodrine (Midodrine Hcl 2.5 Mg Tab) 5 mg PO TID@0800,1200,1800 MYNOR Stop: 09/05/22 00:29 Last Admin: 08/10/22 11:46 Dose: 5 mg Miscellaneous (Carbohydrates For Hypoglycemia ) 15 - 30 gm PO UD PRN PRN Reason: Hypoglycemia Treatment Stop: 09/06/22 10:59 Multi-Ingredient Cream (Artificial Tears Op Oint 3.5 Gm Tube) 1 appln OP HS MYNOR Stop: 09/05/22 00:05 Last Admin: 08/09/22 20:33 Dose: Not Given Non-Formulary Medication (Zinc Oxide) 1 appln TOP TID MYNOR Stop: 09/05/22 08:59 Last Admin: 08/10/22 14:51 Dose: 1 appln Nystatin (Nystatin Powder 15gm Btl) 1 appln EXT DAILY PRN PRN Reason: Rash Stop: 09/05/22 00:05 Polyethylene Glycol (Polyethylene (Miralax) 17 Gm Pack) 17 gm PEG DAILY PRN PRN Reason: Constipation Stop: 09/05/22 00:05 Polymyxin/Trimethoprim Sulfate (Trimethoprim/Polymyxin B) 2 drops OP Q6 MYNOR Stop: 08/14/22 17:59 Last Admin: 08/10/22 11:46 Dose: 2 drops Sodium Chloride (Sodium Chlor 7% 4 Ml Neb) 4 ml NEB BIDR MYNOR Stop: 09/05/22 18:59 Last Admin: 08/10/22 07:24 Dose: 4 ml Sterile Water (Tube Feeding Water Flush) 250 ml JT Q8H MYNOR Stop: 09/07/22 09:59 Last Admin: 08/10/22 09:47 Dose: 250 ml Tramadol HCl (Tramadol Hcl 50 Mg Tablet) 50 mg NG Q6H PRN PRN Reason: Pain Stop: 09/05/22 00:05 Last Admin: 08/10/22 15:12 Dose: 50 mg Vitamin D (Cholecalciferol 1,000 Units 25 Mcg Tab) 1,000 units JT DAILY [facility] Stop: 09/05/22 08:59 Last Admin: 08/10/22 08:58 Dose: 1,000 units
[2022-08-10] MEDS: ARTIFICIAL TEARS OP PRN (18:35)
[2022-08-10] MEDS: ARTIFICIAL TEARS OP OINT 3.5 GM TUBE OP SCH (20:31)
[2022-08-11] MEDS: PEPTAMEN 1.5 CAL 1,000 ML BAG JT SCH ×2 (00:20→18:55)
[2022-08-11] MEDS: TUBE FEEDING WATER FLUSH JT SCH ×3 (02:00→17:41)
[2022-08-11] MEDS: AMPICILLIN/SULBACTAM SOD 3,000 MG in DEXTROSE 5% 100 ML IV SCH ×4 (05:46→23:02)
[2022-08-11] MEDS: ACETAMINOPHEN 1000 MG/100 ML IV IV PRN (05:46)
[2022-08-11 05:55] LABS: Basophils # (auto) 0.02 K/uL (0-0.2); Basophils % (auto) 0.1 %; Eosinophils % (auto) 1.2 %; Hematocrit (blood only) 22.3 % (40.1-51.0); Hemoglobin 7.1 g/dl (14.0-18.0); Immature Granulocytes # (auto) 0.13 K/uL (0.00-0.02); Immature Granulocytes % (auto) 0.8 %; Lymphocytes # (auto) 1.48 K/uL (1.2-3.4); Mean Corpuscular Hemoglobin 29.8 pg (25.0-34.0); Mean Corpuscular Hgb Conc 31.8 g/dL (32.0-36.0); Mean Corpuscular Volume 93.7 fL (80.0-100.0); Mean Platelet Volume 9.6 fL (9.4-12.4); Monocytes # (auto) 0.71 K/uL (0.24-0.82); Monocytes % (auto) 4.3 %; Neutrophils # (auto) 13.89 K/uL (1.4-6.5); Neutrophils % (auto) 84.6 %; Platelet Count 310 K/uL (130-400); RDW Coefficient of Variation 16.1 % (11.5-14.5); Red Blood Count 2.38 M/uL (4.63-6.08); White Blood Count 16.43 K/ul (4.8-10.8)
[2022-08-11] MEDS: TRIMETHOPRIM/POLYMYXIN B OP SCH ×4 (05:59→23:03)
[2022-08-11] MEDS: INSULIN ASPART PER UNIT SC SCH ×4 (06:01→23:16)
[2022-08-11 06:33] LABS: Blood Urea Nitrogen 8 mg/dl (6-23); Calcium 8.4 mg/dl (8.5-10.1); Carbon Dioxide 25 mmol/L (21-32); Chloride 106 mmol/L (98-107); Creatinine Clr Calc Pharmacy 565.9 ml/min; Est GFR (African American) > 150.0 ml/min; Est GFR (Non-African American) > 150.0 ml/min; Glucose 171 mg/dl (70-99(Fasting)); Magnesium 1.7 mg/dl (1.7-2.4); Potassium 3.6 mmol/L (3.5-5.1)
[2022-08-11 06:38] LABS: RBC Morphology Unremarkable
[2022-08-11] MEDS ORDERED: POTASSIUM PHOS 3 MMOL/1 ML INFUSION IV STA (07:57)
[2022-08-11] MEDS: SODIUM CHLOR 7% 4 ML NEB NEB SCH ×2 (08:29→19:31)
[2022-08-11] MEDS ORDERED: POTASSIUM PHOSPHATE 30 MMOL in SODIUM CHLORIDE 0.9% 500 ML IV SCH (08:30)
[2022-08-11] MEDS: MAGNESIUM SULFATE / D5W 1 GM/100 ML BAG IV SCH ×2 (08:39→10:18)
[2022-08-11] MEDS: MIDODRINE HCL 2.5 MG TAB PO SCH ×3 (08:43→17:41)
[2022-08-11] MEDS: CHOLECALCIFEROL 1,000 UNITS 25 MCG TAB JT SCH (08:43)
[2022-08-11] MEDS: ARTIFICIAL TEARS OP SCH ×4 (08:43→20:36)
[2022-08-11] MEDS: NON-FORMULARY MEDICATION (Zinc Oxide 20 % Ointment) TOP SCH ×3 (08:44→20:35)
[2022-08-11] MEDS: LANSOPRAZOLE 15 MG SOLTAB PO SCH (08:44)
--- NOTE | 2022-08-11 10:00 | Pulmonology Progress Note ---
Date of Service August 11, 2022 Assessment & Plan (1) Ventilator dependence: (2) Severe sepsis: (3) HENRI (acute kidney injury): (4) ALS (amyotrophic lateral sclerosis): Plan CT chest 08/05/2022 personally reviewed: Secretions appreciated superior to the trachea and the vallecula, minimal tracheal secretions appreciated on the posterior wall Mild bilateral pleural effusion, dependent atelectasis bilateral lower lobes No significant mediastinal lymphadenopathy -- Sepsis Looking at the CT chest I do not feel that pulmonary is the source of sepsis Patient does have history of pancreatic cyst which grew E. coli in the past s/p treatment Tracheal aspirate growing Klebsiella which is pansensitive except for cefazolin Also growing MSSA which is pansensitive Cefepime was changed to Unasyn on 08/09/2022 C. difficile negative 08/10/2022 Procalcitonin 1.28 Continue with broad-spectrum antibiotics for the time being --Normocytic anemia Patient's baseline hemoglobin is around 7.5-8 Monitor H&H, transfuse if hemoglobin less than 7 -- Hypotension --> resolved Responded to fluid Patient is also on midodrine chronically 5 mg 3 times daily, continue with same Continue monitor MAP, keep greater than 65 if it is persistently low then start vasopressors -- Vent dependent respiratory failure Secondary to underlying diagnosis of ALS Continue with vent support Patient does not have any significant change from his baseline vent settings --Transaminitis --> trending down Elevated AST/ALT as well as alk phos Patient has chronic elevation of alk phos Mild transaminitis is likely from underlying hypertension that the patient presented with -- S/p hypernatremia with hyperchloremia Getting 250 mL every 8 hours Free water flushes through the GJ tube Continue to monitor --ALS Continue with riluzole --Prophylaxis VTE: Lovenox on hold GI: Lansoprazole Lines: Peripheral, G-J-tube Diet: Tube feeds Plan: In/out: -39 mL, urine output 4251 Hypophosphatemia and hypomagnesemia is being replaced. Patient hemoglobin is trending down today to 7.1. We will repeat H&H later today. We will keep Lovenox on hold FOBT Continue with Unasyn. Blood culture and fungal culture has been negative to date We will do a chest x-ray today. The patient is still persistently spiking fever then consideration of repeating CT chest abdomen pelvis would be made. Chronic pancreatitis which the patient might be having can also be the reason for his fever. Case discussed with TINO Padilla Please note the above document was generated using voice recognition software. It may contain grammatical, syntax or spelling errors.Any formal questions or concerns about the content, text or information contained within the body of this dictation should be directly addressed to the provider for clarification. Admission and Anticipated Discharge Date Admission Date: August 05, 2022 Subjective Patient seen and examined at bedside. No acute distress, no adverse events overnight. Patient again spiking fever persistently around 38. He is on Unasyn. He feels lethargic today. Denies any chest pain, no shortness of breath. Has been getting tube feeds. C. difficile was negative. Review of Systems Review of Systems: All systems reviewed & are unremarkable except as noted in Subjective Physical Exam Physical Exam: Constitutional: No acute distress HEENT: PERRLA, positive trach Respiratory system: Decreased air entry bilaterally, no wheeze, positive rhonchi bilaterally, mild crackles bilateral lower lobes CVS: S1-S2 positive, no murmurs or gallops Abdomen: Soft, nontender, nondistended, positive bowel sounds x4, positive G-J tube Extremities: +2 pulses bilaterally radialis/ dorsalis pedis, no cyanosis, +1 pitting edema bilateral lower extremity Neuro: Awake alert oriented to self and place Psych: Normal mood and affect G/U: Positive Varela Musculoskeletal: Stage I-II decubitus ulcer Skin: no rashes, warm and dry Lymphatic: no cervical or axillary lymphadenopathy Results & Data Results & Data ([facility]) Vital Signs (Past 12 Hours) Vital Signs Temp Pulse Resp BP Pulse Ox O2 Del Method FiO2 08/11/22 09:00 37.4 C 108 H 14 118/68 98 Mechanical Vent 30 08/11/22 08:00 37.8 C H 110 H 14 115/61 95 Mechanical Vent 30 08/11/22 07:45 115 H 14 94 30 08/11/22 07:00 38.2 C H 117 H 14 117/61 93 Mechanical Vent 30 08/11/22 07:30 Mechanical Vent 30 08/11/22 07:30 30 08/11/22 07:30 117 H 08/11/22 06:00 38.4 C H 112 H 14 100 08/11/22 06:00 115/64 08/11/22 05:30 38.4 C H 112 H 14 98 08/11/22 05:00 38.4 C H 111 H 14 96 08/11/22 05:00 104/67 08/11/22 04:30 38.1 C H 109 H 14 99 08/11/22 04:00 37.9 C H 110 H 14 95 08/11/22 04:00 109/67 08/11/22 03:30 37.8 C H 83 14 99 08/11/22 04:00 30 08/11/22 04:00 112 H 14 99 30 08/11/22 03:00 37.8 C H 114 H 14 96 08/11/22 02:30 37.6 C H 117 H 14 97 08/11/22 02:00 37.8 C H 116 H 14 95 08/11/22 02:00 117/73 08/11/22 01:30 37.8 C H 118 H 14 96 08/11/22 01:00 37.8 C H 95 H 14 95 08/11/22 01:00 129/62 08/11/22 00:30 37.8 C H 115 H 14 96 08/11/22 00:00 37.8 C H 111 H 14 95 08/11/22 00:00 118/69 08/11/22 00:00 30 08/10/22 23:48 110 H 08/10/22 23:30 37.9 C H 110 H 14 98 08/10/22 23:00 38.1 C H 111 H 14 94 08/10/22 23:00 107/64 08/10/22 22:30 38.0 C H 108 H 14 98 08/10/22 22:00 38.0 C H 112 H 14 97 08/10/22 23:00 108 H 14 98 30 Laboratory Results 08/11/22 05:40 08/11/22 05:40 PG Care Time/CCT Total # of Minutes Spent Total Time Spent with Patient: Total time spent is greater than 50% in coordination of care (as documented) at patient's floor/unit and/or counseling patient: Coding Level of Care Code 81396 Subseq Hosp Care Lvl 3 Diagnoses Ventilator dependence Z99.11 Severe sepsis A41.9; R65.20 HENRI (acute kidney injury) N17.9 ALS (amyotrophic lateral sclerosis) G12.21
--- NOTE | 2022-08-11 10:27 | XRay Report ---
XR chest 1V portable HISTORY: 37 years-old Male f/u acute shortness of breath COMPARISON: Chest radiograph 08/08/2022, chest CT 08/05/20002009 TECHNIQUE: Portable AP view of the chest FINDINGS: Cardiac silhouette is enlarged. Tracheostomy cannula overlies the midline at the level the clavicular heads. No pneumothorax. Small left and possible trace right pleural effusions. Persistent bibasilar opacities appear stable. Bones appear grossly intact. IMPRESSION: 1. Cardiomegaly without pulmonary edema. 2. Small left and possible trace right pleural effusions with persistent bibasilar opacities. ACT 112: Negative or not required by law. The above report was generated using voice recognition software. It may contain grammatical, syntax o r spelling errors. Electronically signed by: James Brody M.D. 08/11/2022 10:25 AM
[2022-08-11 12:17] LABS: Hematocrit (blood only) 22.8 % (40.1-51.0); Hemoglobin 7.2 g/dl (14.0-18.0)
[2022-08-11] MEDS ORDERED: ACETAMINOPHEN 1000 MG/100 ML IV IV ONE (14:25)
[2022-08-11] MEDS: ACETAMINOPHEN 1,000 MG/100 ML VIAL IV PRN ×2 (14:28→23:02)
[2022-08-11] MEDS ORDERED: DEXTROSE 5% 1,000 ML IV SCH (16:00)
[2022-08-11] MEDS ORDERED: IOVERSOL 350 MG 100mL Prefilled Syringe IV ONE (17:01)
[2022-08-11 17:13] LABS: Anion Gap 9.7 (3-11); Sodium 145 mmol/L (136-145)
[2022-08-11 17:27] LABS: Hemoglobin 6.8 g/dl (14.0-18.0)
[2022-08-11 18:27] LABS: Hematocrit (blood only) 22.8 % (40.1-51.0)
--- NOTE | 2022-08-11 18:44 | CT Scan Report ---
CHEST CT WITH CONTRAST; CT abdomen and pelvis with IV contrast only CT DOSE: 1682.58 mGy.cm HISTORY: Follow up whole body scan in a patient with fever fever unknown origin TECHNIQUE: Multiaxial CT images of the chest, abdomen and pelvis were performed following the IV admi nistration of 93 cc of Optiray. A dose lowering technique was utilized adhering to the principles o f ALARA. COMPARISON: CT chest, abdomen and pelvis 08/05/2022 FINDINGS: CT CHEST: Tracheostomy cannula distal tip terminates at the level of the clavicular heads. Fluid within the air way proximal to the cannula. Mild tracheobronchial secretions. No thyroid nodule or lymphadenopathy. The heart is normal in size without pericardial effusion. No thoracic aortic aneurysm. Unremarkable p ulmonary artery. Marked atrophy of the musculature redemonstrated. Small left and trace right pleural effusions. Dependent bibasilar consolidation. No pneumothorax. Mil d patchy groundglass opacities throughout the right lung are new from prior. Unremarkable soft tissue s. No acute fracture identified. Mild thoracolumbar compression deformities are again noted. CT ABDOMEN/PELVIS: No pneumatosis or pneumoperitoneum. Unremarkable spleen, gallbladder, and adrenal glands. Hepatic darrian atosis with mild right hemidiaphragmatic elevation. Patency of the hepatic and portal veins. The sple lucius vein is attenuated however is patent. There is persistent interstitial and peripancreatic inflamm ation which appears mildly worsened with increased amount of abdominal ascites. Peripancreatic fluid collections appear to be generally stable, with the largest measuring 3.8 cm adjacent to the pancreat ic tail. Tiny fluid collections are again noted extending along the stomach and transverse colon. Emb olization coils are noted adjacent to the distal stomach and pancreatic head. Gastrojejunostomy tube is in place. Persistent gastric wall thickening. 4 mm nonobstructing calculus of the superior pole le ft kidney. No ureteral calculi or hydronephrosis identified. Layering hyperdensity within the urinary bladder may represent stone fragments. Air-fluid level within the urinary bladder with diffuse wall thickening. Aorta and IVC appear unchanged. Periportal and precaval lymphadenopathy redemonstrated. T here is marked diffuse muscle atrophy. No bowel obstruction or bowel wall thickening. Rectal catheter is in place. Normal appendix. No acute fracture. Demineralized appearance of the bones. IMPRESSION: 1. Small left and trace right pleural effusions with persistent bibasilar consolidation. 2. Progressively worsened acute pancreatitis with mildly increased amount of abdominal ascites. Numer ous peripancreatic fluid collections appear to be generally stable from the exam obtained 6 days danette ier. Sterility cannot be determined by imaging alone. 3. 4 mm left renal calculus. No ureteral calculi or hydronephrosis. 4. No bowel obstruction or bowel wall thickening. 5. Attenuated splenic vein without occlusion is similar to prior. 6. Upper abdominal lymphadenopathy is likely reactive. 7. Additional findings as above. ACT 112: Negative or not required by law. Dictated: 08/11/2022 6:09 PM Transcribed: 08/11/2022 6:37 PM Yane [id number] [facility] Electronically signed by: James Brody M.D. 08/11/2022 6:43 PM
[2022-08-11] MEDS ORDERED: SODIUM CHLORIDE 0.9% 250 ML IV PRN (18:59)
--- NOTE | 2022-08-11 19:46 | Ultrasound Report ---
BILATERAL LOWER EXTREMITY VENOUS DOPPLER HISTORY: Acute pain and swelling of the lower legs r/o dvt COMPARISON STUDY: None. FINDINGS: There is normal compressibility, flow, and augmentation within the bilateral lower extremit y deep venous systems. The common femoral and greater saphenous veins are not visualized secondary to overlying bandages. IMPRESSION: No DVT within the right or left lower extremity. ACT 112: Negative or not required by law. Electronically signed by: James Brody M.D. 08/11/2022 7:45 PM
[2022-08-11] MEDS: ARTIFICIAL TEARS OP OINT 3.5 GM TUBE OP SCH (20:35)
[2022-08-11] MEDS: MENTHOL-ZINC OXIDE 360 APPLN/120 GM TUBE EXT PRN (20:39)
--- NOTE | 2022-08-11 23:28 | Hospitalist Progress Note ---
Date of Service August 11, 2022 Assessment & Plan (1) Severe sepsis: Plan: Met sepsis criteria on admission with leukocytosis 27.5, febrile, lactate 3.9 and tachycardia -likely pulm source, +sputum culture CT chest with Tracheostomy cannula in place with mild tracheobronchial secretions. Small left pleural effusion with bibasilar consolidation. Additional centrilobular groundglass nodular opacities are present within the superior segments of the lower lobes. Findings are suggestive of pneumonia versus aspiration. CT abd/pelvis showed resolving acute pancreatitis with decreased size of the numerous peripancreatic fluid collections suggestive of pseudocysts. sputum cx positive for staph aureus and klebsiella pna blood cx no growth He was on IV Zosyn and Vanco Pt was started on caspofungin that was discontinued on 08/08 since cx no growth Currently on IV unasyn WBC has plateaued at 16K Still continue to be febrile Stool for C. difficile negative will check peripheral smear for tick born pathogen Consider to add IV Doxycycline if fever persist We will get a CBC abdomen pelvic and chest with contrast Continue monitor closely in the ICU (2) HENRI (acute kidney injury): Plan: -elevated BUN-resolved. Uncertain etiology - S/p IVF - Avoid nephrotoxics. - Lab improved with BUN 23 and Anion gap 10 - Continue monitor BMP (3) Abnormal LFTs: Plan: - likely related to sepsis-improved - CT A/P noted - monitor (4) Lactic acidosis: Plan: - lactate improved with IVF resuscitation. (5) High anion gap metabolic acidosis: Plan: AG 27 on admission from sepsis and HENRI. Received fluids-resolved. (6) Chronic respiratory failure: Plan: - wean to baseline vent settings per ICU, ventilator dependent. (7) Electrolyte imbalance: Plan: resolved, cont to monitor closely (8) ALS (amyotrophic lateral sclerosis): Plan: - bedbound with quadriplegia, has trach on vent. - continue vent support. - continue home riluzole (9) Left ventricular systolic dysfunction: Plan: euvolemic, off IVF. continues with free water flushes (10) Pseudocyst of pancreas: Plan: CT with resolving acute pancreatitis with decreasing size of pseudocysts. We will repeat CT abdomen and pelvis with IV contrast Stable Plan DVT ppx- sc lovenox Code Status: Full Code Dispo: ICU Admission and Anticipated Discharge Date Admission Date: August 05, 2022 Subjective Pt was seen and examined for follow sepsis Lying in bed with no acute distress with at bedside Continues to have intermittent fever with T-max 38.2 Discussed with about the possible chance of any contact with thick said they have 2 dogs in the house but the did try to limit them from going to his bedroom Denies any chest pain, palpitation, dizziness and SOB Review of Systems Review of Systems: All systems reviewed & are unremarkable except as noted in Subjective Physical Exam Physical Exam: General Appearance:Moderately built and nourished,Chronic ill appearing Head: normocephalic, Atraumatic Eyes: normal inspection, EOMI Neck: supple, Trachea midline,+Trach +vent Respiratory/Chest: Decreased breath sounds Cardiovascular: S1, S2, No murmur Abdomen/GI:+ +J tube, Non tender Extremities/Musculoskeletal:Atrophy, Trace edema Neurologic/Psych:AAO, Quadriplegic, ALS Skin: normal color, warm Results & Data Results & Data ([facility]) Vital Signs (Past 12 Hours) Vital Signs Temp Temp Pulse Resp BP Pulse Ox O2 Del Method 08/11/22 22:45 113 H 14 99 08/11/22 23:01 38.2 C H 116 H 14 115/76 08/11/22 22:31 38.2 C H 109 H 14 113/75 98 08/11/22 22:01 Mechanical Vent 08/11/22 20:00 08/11/22 21:31 38.1 C H 111 H 14 121/79 97 08/11/22 21:01 38.1 C H 107 H 14 117/80 96 08/11/22 20:46 38.1 C H 115 H 14 109/74 99 08/11/22 20:27 38.0 C H 105 H 14 132/85 98 08/11/22 19:24 110 H 14 98 08/11/22 18:00 37.5 C 102 H 14 103/64 99 Mechanical Vent 08/11/22 17:50 37.6 C H 108 H 14 110/65 98 Mechanical Vent 08/11/22 17:11 37.8 C H 110 H 14 119/69 97 Mechanical Vent 08/11/22 16:00 38.0 C H 106 H 14 107/68 97 Mechanical Vent 08/11/22 16:00 08/11/22 16:00 100 H 08/11/22 15:30 113 H 14 95 08/11/22 15:00 104 H 14 107/71 100 Mechanical Vent 08/11/22 14:00 114 H 12 120/75 97 Mechanical Vent 08/11/22 14:55 38.1 C H 08/11/22 13:00 37.8 C H 115 H 14 125/78 90 Mechanical Vent 08/11/22 12:00 37.8 C H 113 H 14 97/63 L 96 Mechanical Vent 08/11/22 12:00 08/11/22 11:52 109 H 15 96 FiO2 08/11/22 22:45 30 08/11/22 23:01 08/11/22 22:31 08/11/22 22:01 08/11/22 20:00 30 08/11/22 21:31 08/11/22 21:01 08/11/22 20:46 08/11/22 20:27 08/11/22 19:24 30 08/11/22 18:00 30 08/11/22 17:50 30 08/11/22 17:11 30 08/11/22 16:00 30 08/11/22 16:00 30 08/11/22 16:00 08/11/22 15:30 30 08/11/22 15:00 30 08/11/22 14:00 30 08/11/22 14:55 08/11/22 13:00 30 08/11/22 12:00 30 08/11/22 12:00 30 08/11/22 11:52 30
[2022-08-12] MEDS: TUBE FEEDING WATER FLUSH JT SCH ×3 (02:00→18:13)
[2022-08-12] MEDS: AMPICILLIN/SULBACTAM SOD 3,000 MG in DEXTROSE 5% 100 ML IV SCH ×3 (05:25→18:06)
[2022-08-12] MEDS: TRIMETHOPRIM/POLYMYXIN B OP SCH ×3 (05:25→18:12)
[2022-08-12] MEDS: INSULIN ASPART PER UNIT SC SCH ×3 (05:52→18:13)
[2022-08-12 06:55] LABS: Anion Gap 8 (3-11); Blood Urea Nitrogen 7 mg/dl (6-23); Calcium 8.2 mg/dl (8.5-10.1); Carbon Dioxide 27 mmol/L (21-32); Chloride 107 mmol/L (98-107); Creatinine Clr Calc Pharmacy 565.9 ml/min; Est GFR (African American) > 150.0 ml/min; Est GFR (Non-African American) > 150.0 ml/min; Glucose 148 mg/dl (70-99(Fasting)); Potassium 3.6 mmol/L (3.5-5.1); Sodium 142 mmol/L (136-145)
[2022-08-12] MEDS: SODIUM CHLOR 7% 4 ML NEB NEB SCH ×2 (07:06→20:15)
[2022-08-12 07:44] LABS: Basophils # (auto) 0.02 K/uL (0-0.2); Basophils % (auto) 0.1 %; Eosinophils # (auto) 0.18 K/uL (0-0.50); Eosinophils % (auto) 1.2 %; Hematocrit (blood only) 24.5 % (40.1-51.0); Hemoglobin 7.9 g/dl (14.0-18.0); Immature Granulocytes # (auto) 0.11 K/uL (0.00-0.02); Immature Granulocytes % (auto) 0.7 %; Lymphocytes # (auto) 1.45 K/uL (1.2-3.4); Lymphocytes % (auto) 9.3 %; Mean Corpuscular Hemoglobin 30.4 pg (25.0-34.0); Mean Corpuscular Hgb Conc 32.2 g/dL (32.0-36.0); Mean Corpuscular Volume 94.2 fL (80.0-100.0); Mean Platelet Volume 8.9 fL (9.4-12.4); Monocytes % (auto) 5.2 %; Neutrophils # (auto) 12.97 K/uL (1.4-6.5); Neutrophils % (auto) 83.5 %; Platelet Count 290 K/uL (130-400); RDW Coefficient of Variation 15.9 % (11.5-14.5); RDW Standard Deviation 54.4 fL (36.4-46.3); White Blood Count 15.53 K/ul (4.8-10.8)
[2022-08-12 08:04] LABS: Spherocytes Occasional
[2022-08-12 08:12] LABS: Anion Gap 10 (3-11); Blood Urea Nitrogen 7 mg/dl (6-23); Calcium 8.4 mg/dl (8.5-10.1); Carbon Dioxide 27 mmol/L (21-32); Chloride 109 mmol/L (98-107); Creatinine Clr Calc Pharmacy 565.9 ml/min; Est GFR (African American) > 150.0 ml/min; Est GFR (Non-African American) > 150.0 ml/min; Glucose 124 mg/dl (70-99(Fasting)); Magnesium 1.7 mg/dl (1.7-2.4); Phosphorus 2.2 mg/dl (2.5-4.9); Potassium 3.5 mmol/L (3.5-5.1); Sodium 146 mmol/L (136-145)
[2022-08-12] MEDS: ARTIFICIAL TEARS OP SCH ×4 (08:33→20:39)
[2022-08-12] MEDS: CHOLECALCIFEROL 1,000 UNITS 25 MCG TAB JT SCH (08:33)
[2022-08-12] MEDS: MIDODRINE HCL 2.5 MG TAB PO SCH ×3 (08:33→18:12)
[2022-08-12] MEDS: NON-FORMULARY MEDICATION (Zinc Oxide 20 % Ointment) TOP SCH ×3 (08:35→20:40)
[2022-08-12] MEDS: LANSOPRAZOLE 15 MG SOLTAB PO SCH (08:35)
[2022-08-12] MEDS ORDERED: POTASSIUM PHOSPHATE 30 MMOL in DEXTROSE 5% 500 ML IV ONE (11:00)
--- NOTE | 2022-08-12 12:37 | Pulmonology Progress Note ---
Date of Service August 12, 2022 Assessment & Plan (1) Ventilator dependence: (2) Severe sepsis: (3) HENRI (acute kidney injury): (4) ALS (amyotrophic lateral sclerosis): Plan Impression: 37-year-old male vent dependent due to ALS admitted with sepsis found to have sensitive Klebsiella growing from tracheal aspirate as well as methicillin sensitive staph. He has been placed on antibiotics in the form of Unasyn with ID oversight but remains persistently febrile with elevated white blood cell count. He also has a history of significant pancreatitis with pancreatic pseudocyst formation requiring drainage previously. Recommendations: 1. Ventilator dependence due to ALS: Continue current vent settings. The patient appears to be oxygenating and ventilating well. 2. Acute purulent tracheitis: Klebsiella and methicillin sensitive staph aureus. White count is decreased from presentation but remains persistently elevated. He is currently day #8 antibiotics, currently day #5 of Unasyn. Would defer to ID as to whether or not additional management of the pancreatitis and pseudocyst needs to be undertaken. This would likely require interventional radiology and is not available here. In the past, the patient has required transfer to a higher level of care ([facility] in [place]) for management of these issues. 3. Management of the patient's other medical issues is deferred to the hospitalist. Will continue to follow for respiratory issues. Admission and Anticipated Discharge Date Admission Date: August 05, 2022 Subjective Patient seen and examined. EMR reviewed. Discussed with bedside nurse as well as with off going cryptographic clerk. Patient is been hemodynamically stable. He continues to have low-grade fevers. White count remains elevated around 15,000. Review of Systems Review of Systems: All systems reviewed & are unremarkable except as noted in Subjective Physical Exam Physical Exam: Constitutional: No acute distress HEENT: PERRLA, positive trach Respiratory system: Decreased air entry bilaterally, no wheeze, positive rhonchi bilaterally, mild crackles bilateral lower lobes CVS: S1-S2 positive, no murmurs or gallops Abdomen: Soft, nontender, nondistended, positive bowel sounds x4, positive G-J tube Extremities: +2 pulses bilaterally radialis/ dorsalis pedis, no cyanosis, +1 pitting edema bilateral lower extremity Neuro: Awake alert oriented to self and place Psych: Normal mood and affect G/U: Positive V[place]la Musculoskeletal: Stage I-II decubitus ulcer Results & Data Results & Data ([facility]) Vital Signs (Past 12 Hours) Vital Signs Temp Pulse Resp BP Pulse Ox FiO2 08/12/22 10:51 111 H 14 98 30 08/12/22 08:00 30 08/12/22 08:00 101 H 08/12/22 07:10 103 H 14 99 30 08/12/22 07:00 37.8 C H 107 H 14 131/75 99 08/12/22 06:00 37.5 C 107 H 14 99 08/12/22 05:00 37.6 C H 106 H 14 99 08/12/22 05:00 114/65 08/12/22 03:45 102 H 14 99 30 08/12/22 04:00 37.5 C 102 H 14 100 08/12/22 04:00 106/68 08/12/22 03:00 37.5 C 103 H 14 100 08/12/22 03:00 104/60 08/12/22 04:00 30 08/12/22 02:00 37.5 C 104 H 14 100 08/12/22 02:00 92/61 L 08/12/22 01:05 37.4 C 106 H 12 100 08/12/22 01:05 108/68 08/12/22 01:00 37.4 C 108 H 14 99 Critical Care Results & Data Vital Signs (Past 12 Hours) Vital Signs Temp Pulse Resp BP Pulse Ox FiO2 08/12/22 10:51 111 H 14 98 30 08/12/22 08:00 30 08/12/22 08:00 101 H 08/12/22 07:10 103 H 14 99 30 08/12/22 07:00 37.8 C H 107 H 14 131/75 99 08/12/22 06:00 37.5 C 107 H 14 99 08/12/22 05:00 37.6 C H 106 H 14 99 08/12/22 05:00 114/65 08/12/22 03:45 102 H 14 99 30 08/12/22 04:00 37.5 C 102 H 14 100 08/12/22 04:00 106/68 08/12/22 03:00 37.5 C 103 H 14 100 08/12/22 03:00 104/60 08/12/22 04:00 30 08/12/22 02:00 37.5 C 104 H 14 100 08/12/22 02:00 92/61 L 08/12/22 01:05 37.4 C 106 H 12 100 08/12/22 01:05 108/68 08/12/22 01:00 37.4 C 108 H 14 99 Lab & Micro Results (Past 24 Hours) RBC 2.60 M/uL (4.63-6.08) L 08/12/22 WBC 15.53 K/ul (4.8-10.8) H 08/12/22 Hgb 7.9 g/dl (14.0-18.0) L 08/12/22 Hct 24.5 % (40.1-51.0) L 08/12/22 MCV 94.2 fL (80.0-100.0) 08/12/22 MCH 30.4 pg (25.0-34.0) 08/12/22 MCHC 32.2 g/dL (32.0-36.0) 08/12/22 RDW Standard Deviation 54.4 fL (36.4-46.3) H 08/12/22 RDW Coefficient of Variation 15.9 % (11.5-14.5) H 08/12/22 Plt Count 290 K/uL (130-400) 08/12/22 MPV 8.9 fL (9.4-12.4) L 08/12/22 Neutrophils (%) (Auto) 83.5 % 08/12/22 Lymphocytes (%) (Auto) 9.3 % 08/12/22 Monocytes # (Auto) 0.80 K/uL (0.24-0.82) 08/12/22 Eosinophils # (Auto) 0.18 K/uL (0-0.50) 08/12/22 Immature Granulocyte % (Auto) 0.7 % 08/12/22 Neutrophils # (Auto) 12.97 K/uL (1.4-6.5) H 08/12/22 Lymphocytes # (Auto) 1.45 K/uL (1.2-3.4) 08/12/22 Monocytes # (Auto) 0.80 K/uL (0.24-0.82) 08/12/22 Eosinophils # (Auto) 0.18 K/uL (0-0.50) 08/12/22 Basophils # (Auto) 0.02 K/uL (0-0.2) 08/12/22 Immature Granulocyte # (Auto) 0.11 K/uL (0.00-0.02) H 08/12 Spherocytes Occasional 08/12/22 Na 146 mmol/L (136-145) H 08/12/22 K 3.5 mmol/L (3.5-5.1) 08/12/22 Cl 109 mmol/L (98-107) H 08/12/22 CO2 27 mmol/L (21-32) 08/12/22 Anion Gap 10 (3-11) 08/12/22 BUN 7 mg/dl (6-23) 08/12/22 Creatinine < 0.20 mg/dl (0.6-1.4) L 08/12/22 Estimated GFR ( Amer) > 150.0 ml/min 08/12/22 Estimated GFR (Non-Af Amer) > 150.0 ml/min 08/12/22 BUN/Creatinine Ratio TNP 08/12/22 Glu 124 mg/dl (70-99(Fasting)) H 08/12/22 Ca 8.4 mg/dl (8.5-10.1) L 08/12/22 Phosphorus Level 2.2 mg/dl (2.5-4.9) L 08/12/22 Mg 1.7 mg/dl (1.7-2.4) 08/12/22 07:34 Calcium Level 8.4 mg/dl (8.5-10.1) L 08/12/22 07:34 Microbiology 08/06/22 09:33 Fungal Smear - Final Blood Fungal Culture - Preliminary No yeast or fungus isolated - Report 1, Additional Report to Follow. Diagnostic Findings (Past 24 Hours) Abdomen/Pelvis CT 08/11/22 16:[address] WITH CONTRAST; CT abdomen and pelvis with IV contrast only CT DOSE: 1682.58 mGy.cm HISTORY: Follow up whole body scan in a patient with fever fever unknown origin TECHNIQUE: Multiaxial CT images of the chest, abdomen and pelvis were performed following the IV administration of 93 cc of Optiray. A dose lowering technique was utilized adhering to the principles of ALARA. COMPARISON: CT chest, abdomen and pelvis 08/05/2022 FINDINGS: CT CHEST: Tracheostomy cannula distal tip terminates at the level of the clavicular heads. Fluid within the airway proximal to the cannula. Mild tracheobronchial secr etions. No thyroid nodule or lymphadenopathy. The heart is normal in size without pericardial effusion. No thoracic aortic aneurysm. Unremarkable pulmonary artery. Marked atrophy of the musculature redemonstrated. Small left and trace right pleural effusions. Dependent bibasilar consolidation. No pneumothorax. Mild patchy groundglass opacities throughout the right lung are new from prior. Unremarkable soft tissues. No acute fracture identified. Mild thoracolumbar compression deformities are again noted. CT ABDOMEN/PELVIS: No pneumatosis or pneumoperitoneum. Unremarkable spleen, gallbladder, and adrenal glands. Hepatic steatosis with mild right hemidiaphragmatic elevation. Patency of the hepatic and portal veins. The splenic vein is attenuated however is patent. There is persistent interstitial and peripancreatic inflammation which appears mildly worsened with increased amount of abdominal ascites. Peripancreatic fluid collections appear to be generally stable, with the largest measuring 3.8 cm adjacent to the pancreatic tail. Tiny fluid collections are again noted extending along the stomach and transverse colon. Embolization coils are noted adjacent to the distal stomach and pancreatic head. Gastrojejunostomy tube is in place. Persistent gastric wall thickening. 4 mm nonobstructing calculus of the superior pole left kidney. No ureteral calculi or hydronephrosis identified. Layering hyperdensity within the urinary bladder may represent stone fragments. Air-fluid level within the urinary bladder with diffuse wall thickening. Aorta and IVC appear unchanged. Periportal and precaval lymphadenopathy redemonstrated. There is marked diffuse muscle atrophy. No bowel obstruction or bowel wall thickening. Rectal catheter is in place. Normal appendix. No acute fracture. Demineralized appearance of the bones. IMPRESSION: 1. Small left and trace right pleural effusions with persistent bibasilar consolidation. 2. Progressively worsened acute pancreatitis with mildly increased amount of abdominal ascites. Numerous peripancreatic fluid collections appear to be generally stable from the exam obtained 6 days earlier. Sterility cannot be determined by imaging alone. 3. 4 mm left renal calculus. No ureteral calculi or hydronephrosis. 4. No bowel obstruction or bowel wall thickening. 5. Attenuated splenic vein without occlusion is similar to prior. 6. Upper abdominal lymphadenopathy is likely reactive. 7. Additional findings as above. ACT 112: Negative or not required by law. Dictated: 08/11/2022 6:09 PM Transcribed: 08/11/2022 6:37 PM [facility] [id number] [email or web address] Electronically signed by: James Brody M.D. 08/11/2022 6:[address] 08/11/22 16:[address] WITH CONTRAST; CT abdomen and pelvis with IV contrast only CT DOSE: 1682.58 mGy.cm HISTORY: Follow up whole body scan in a patient with fever fever unknown origin TECHNIQUE: Multiaxial CT images of the chest, abdomen and pelvis were performed following the IV administration of 93 cc of Optiray. A dose lowering technique was utilized adhering to the principles of ALARA. COMPARISON: CT chest, abdomen and pelvis 08/05/2022 FINDINGS: CT CHEST: Tracheostomy cannula distal tip terminates at the level of the clavicular heads. Fluid within the airway proximal to the cannula. Mild tracheobronchial secretions. No thyroid nodule or lymphadenopathy. The heart is normal in size without pericardial effusion. No thoracic aortic aneurysm. Unremarkable pulmonary artery. Marked atrophy of the musculature redemonstrated. Small left and trace right pleural effusions. Dependent bibasilar consolidation. No pneumothorax. Mild patchy groundglass opacities throughout the right lung are new from prior. Unremarkable soft tissues. No acute fracture identified. Mild thoracolumbar compression deformities are again noted. CT ABDOMEN/PELVIS: No pneumatosis or pneumoperitoneum. Unremarkable spleen, gallbladder, and adrenal glands. Hepatic steatosis with mild right hemidiaphragmatic elevation. Patency of the hepatic and portal veins. The splenic vein is attenuated however is patent. There is persistent interstitial and peripancreatic inflammation which appears mildly worsened with increased amount of abdominal ascites. Peripancreatic fluid collections appear to be generally stable, with the largest measuring 3.8 cm adjacent to the pancreatic tail. Tiny fluid collections are again noted extending along the stomach and transverse colon. Embolization coils are noted adjacent to the distal stomach and pancreatic head. Gastrojejunostomy tube is in place. Persistent gastric wall thickening. 4 mm nonobstructing calculus of the superior pole left kidney. No ureteral calculi or hydronephrosis identified. Layering hyperdensity within the urinary bladder may represent stone fragments. Air-fluid level within the urinary bladder with diffuse wall thickening. Aorta and IVC appear unchanged. Periportal and precaval lymphadenopathy redemonstrated. There is marked diffuse muscle atrophy. No bowel obstruction or bowel wall thickening. Rectal catheter is in place. Normal appendix. No acute fracture. Demineralized appearance of the bones. IMPRESSION: 1. Small left and trace right pleural effusions with persistent bibasilar con solidation. 2. Progressively worsened acute pancreatitis with mildly increased amount of abdominal ascites. Numerous peripancreatic fluid collections appear to be generally stable from the exam obtained 6 days earlier. Sterility cannot be determined by imaging alone. 3. 4 mm left renal calculus. No ureteral calculi or hydronephrosis. 4. No bowel obstruction or bowel wall thickening. 5. Attenuated splenic vein without occlusion is similar to prior. 6. Upper abdominal lymphadenopathy is likely reactive. 7. Additional findings as above. ACT 112: Negative or not required by law. Dictated: 08/11/2022 6:09 PM Transcribed: 08/11/2022 6:37 PM [facility] [id number] [email or web address] Electronically signed by: James Brody M.D. 08/11/2022 6:43 PM Venous Doppler Study 08/11/22 16:24 BILATERAL LOWER EXTREMITY VENOUS DOPPLER HISTORY: Acute pain and swelling of the lower legs r/o dvt COMPARISON STUDY: None. FINDINGS: There is normal compressibility, flow, and augmentation within the bilateral lower extremity deep venous systems. The common femoral and greater saphenous veins are not visualized secondary to overlying bandages. IMPRESSION: No DVT within the right or left lower extremity. ACT 112: Negative or not required by law. Electronically signed by: James Brody M.D. 08/11/2022 7:45 PM I & O Totals 24 Hours 08/11/22 08/12/22 08/13/22 06:59 06:59 06:59 Intake Total 4320.0 / 4320.0 3732.000 / 3732.000 108 / 108 Output Total 4251 / 4251 4127 / 4127 375 / 375 Balance 69.0 / 69.0 -395.000 / -395.000 -267 / -267 Cumulative 08/05/22 13:57 thru 08/12/22 09:51 Intake Total 69888.667 Output Total 90625 Balance 7573.667 RT Ventilator Mngmt (Last Documented) Ventilator Ordered Settings Ventilator Support Mode Assist Control 08/12/22 10:51 Respiratory Rate 14 08/12/22 10:51 Ventilator Tidal Volume 530 08/12/22 10:51 Setting Minute Ventilation 7.4 08/12/22 10:51 Ventilator Positive Pressure 6 08/12/22 08:00 Support Setting Positive End Expiratory 6 08/12/22 10:51 Pressure Fraction of Inspired Oxygen 30 08/12/22 10:51 Ventilator - PT Measurements Respiratory Rate 14 Exhaled Tidal Volume 529 Minute Ventilation 7.4 Peak Inspiratory Airway 21 Pressure Plateau Pressure 16 Respiratory Cycle Inspiratory: 1:3.3 Expiratory Ratio Inspiratory Phase Time 1.0 End-Tidal CO2 38 Static Lung Compliance 52.90 Dynamic Lung Compliance 35.27 Normal Static Lung Compliance 48.00 Patient Measurements Comment Pt sleeping comfortably at this time, PG Care Time/CCT Total # of Minutes Spent Total Time Spent with Patient: Total time spent is greater than 50% in coordination of care (as documented) at patient's floor/unit and/or counseling patient: Coding Level of Care Code 46808 Subseq Hosp Care Lvl 3 Diagnoses Ventilator dependence Z99.11 Severe sepsis A41.9; R65.20 HENRI (acute kidney injury) N17.9 ALS (amyotrophic lateral sclerosis) G12.21
--- NOTE | 2022-08-12 15:16 | Infectious Disease Progress Nt ---
Date of Service August 12, 2022 Assessment & Plan (1) Sepsis: Plan: low grade temps (~38) began ~08/07 of unclear cause- pt denies associated sxs and appears improved from admission -admitted with concern for infection per pt's due to lethargy, increased trach site drainage and increased SOB although no noted change in vent settings- noted to have leukocytosis, elevated lactate, relative HENRI on admission -CT scan chest with b/l consolidation and opacities suggestive of PNA vs. aspiration -08/05 Sputum cx with MSSA and Klebsiella R only to cefazolin. 08/05 Bcxs NGTD 08/06 Fungal Bcx pending. 08/06 MRSA screen negative, -pt had been on zosyn. empiric vanco stopped due to negative MRSA screen. Caspofungin added empirically 08/06 given risk for candidemia -has been on midodrine, with stable low systolic pressure- no pressors -remains on home vent settings, secretions around trach site now clear/thinner per pt's -08/07 pt with increased erythema/discomfort R eye for which abx eye drops started 08/07. No central line, no skin issues other than sacral decub without evidence infection, baseline gastric output. Pt being followed by wound care. Photo in EMR reviewed- large area of sacral erythema partially obscured by topical ointment- does not appear to be cellulitic -diarrhea noted 08/08, but appeared c/w TF and no BMs 08/09 to date -Of note, WBC has been trending down over last few days -caspofungin stopped and zosyn changed to unasyn on 08/08 -on 08/09 overall lower temps (below 38)- pt had been receiving tylenol regularly, although did not require for past ~10 hours per RN #recurrent pancreatitis, infected pseudocysts -[place] repeatedly here [place] [facility] [place] was most recently on cipro until early Jul - CT a/p with resolving acute pancreatitis with decreased size of numerous peripancreatic fluid collections - Repeat CT AP 08/11 reviewed and showing worsening pancreatitis but stable peripancreatic fluid collections Recommend -Continue trimethoprim-polymyxin eye drops ordered for conjunctivitis -Continue with IV Unasyn, currently D#8 total of abx for VAP anticipate 10 day course given clinical improvement , Please page with any questions Josette Baron MD [facility], [facility] Admission and Anticipated Discharge Date Admission Date: August 05, 2022 Subjective Subsequent visit was provided via telemedicine using two-way real-time interactive telecommunication between the patient and the telemedicine provider. For the duration of the visit, the provider was performing the assessment from a different facility than the patient. This includesuse of bluetooth stethoscope forauscultationperformed by the telepresenter that the telemedicine provider can hear if described in the physical exam. Product Support Technician contact information: Please call [facility] Call Center [phone]. (Phone Number For Physician Use Only) After establishing a telemedicine visit, patient was: Patient was verified with two unique identifiers, Patient/authorized rep acknowledged consent and understanding and Gave permission to continue telehealth session and nursing at bedside No acute events overnight. Nursing reports some loose stools (Cdiff tested negative), Secretions Lines: PIV b/l Review of System Patient unable to give ROS Per Nursing Physical Exam Gastrointestinal (Abdomen): normal bowel sounds, soft, nontender, no hepatosplenomegaly Inspection/Auscultation: abdomen normal to inspection Skin: bleeding sacral decubitus Results & Data ([facility]) Vital Signs (Past 12 Hours) Vital Signs Temp Pulse Resp BP Pulse Ox FiO2 08/12/22 10:51 111 H 14 98 30 08/12/22 08:00 30 08/12/22 08:00 101 H 08/12/22 07:10 103 H 14 99 30 08/12/22 07:00 37.8 C H 107 H 14 131/75 99 08/12/22 06:00 37.5 C 107 H 14 99 08/12/22 05:00 37.6 C H 106 H 14 99 08/12/22 05:00 114/65 08/12/22 03:45 102 H 14 99 30 08/12/22 04:00 37.5 C 102 H 14 100 08/12/22 04:00 106/68 08/12/22 03:00 37.5 C 103 H 14 100 08/12/22 03:00 104/60 08/12/22 04:00 30 Laboratory Results Laboratory Tests 08/12/22 08/12/22 08/12/22 07:33 07:34 12:38 WBC 15.53 H Hct 24.5 L Sodium 146 H Creatinine < 0.20 L Glucose 124 H POC Glucose 156 H (1) Sepsis Sepsis type: sepsis due to unspecified organism Sepsis acute organ dysfunction status: unspecified Qualified Code(s): A41.9 - Sepsis, unspecified organism
--- NOTE | 2022-08-12 20:00 | Hospitalist Progress Note ---
Date of Service August 12, 2022 Assessment & Plan (1) Severe sepsis: Plan: Met sepsis criteria on admission with leukocytosis 27.5, febrile, lactate 3.9 and tachycardia -likely pulm source, +sputum culture CT chest with Tracheostomy cannula in place with mild tracheobronchial secretions. Small left pleural effusion with bibasilar consolidation. Additional centrilobular groundglass nodular opacities are present within the superior segments of the lower lobes. Findings are suggestive of pneumonia versus aspiration. CT abd/pelvis showed resolving acute pancreatitis with decreased size of the numerous peripancreatic fluid collections suggestive of pseudocysts. sputum cx positive for staph aureus and klebsiella pna blood cx no growth He was on IV Zosyn and Vanco Pt was started on caspofungin that was discontinued on 08/08 since cx no growth Currently on IV unasyn Repeat CT abd/pelvis showed progressively worsened acute pancreatitis with mildly increased amount of abdominal ascites. Numerous peripancreatic fluid collections appear to be generally stable from the exam obtained [address] chest showed small left and trace right pleural effusions with persistent bibasilar consolidation. WBC 15K today Stool for C. difficile negative Peripheral smear showed no evidence of inclusion body ID recommended to continue Unasyn to complete 10 days (2) HENRI (acute kidney injury): Plan: -elevated BUN-resolved. Uncertain etiology - S/p IVF - Avoid nephrotoxics. - Lab improved with BUN 23 and Anion gap 10 - Continue monitor BMP (3) Abnormal LFTs: Plan: - likely related to sepsis-improved - CT A/P noted - monitor (4) Lactic acidosis: Plan: - lactate improved with IVF resuscitation. (5) High anion gap metabolic acidosis: Plan: AG 27 on admission from sepsis and HENRI. Received fluids-resolved. (6) Chronic respiratory failure: Plan: - wean to baseline vent settings per ICU, ventilator dependent. (7) Electrolyte imbalance: Plan: resolved, cont to monitor closely (8) ALS (amyotrophic lateral sclerosis): Plan: - bedbound with quadriplegia, has trach on vent. - continue vent support. - continue home riluzole (9) Left ventricular systolic dysfunction: Plan: euvolemic, off IVF. continues with free water flushes (10) Pseudocyst of pancreas: Plan: CT with resolving acute pancreatitis with decreasing size of pseudocysts. Repeat CT abd/pelvis showed progressively worsened acute pancreatitis with mildly increased amount of abdominal ascites. Numerous peripancreatic fluid collections appear to be generally stable from the exam obtained 6 days earlier. Plan DVT ppx- sc lovenox Code Status: Full Code Disposition Will transfer to PCU Admission and Anticipated Discharge Date Admission Date: August 05, 2022 Subjective Pt was seen and examined for follow sepsis Lying in bed with no acute distress Continues to have intermittent fever Denies any chest pain, palpitation, dizziness Review of Systems Review of Systems: All systems reviewed & are unremarkable except as noted in Subjective Physical Exam Physical Exam: General Appearance:Moderately built and nourished,Chronic ill appearing Head: normocephalic, Atraumatic Eyes: normal inspection, EOMI Neck: supple, Trachea midline,+Trach +vent Respiratory/Chest: Decreased breath sounds Cardiovascular: S1, S2, No murmur Abdomen/GI:+ +J tube, Non tender Extremities/Musculoskeletal:Atrophy, Trace edema Neurologic/Psych:AAO, Quadriplegic, ALS Skin: normal color, warm Results & Data Results & Data ([facility]) Vital Signs (Past 12 Hours) Vital Signs Temp Pulse Resp BP Pulse Ox O2 Del Method FiO2 08/12/22 18:00 37.9 C H 115 H 14 100 08/12/22 18:00 110/70 08/12/22 17:00 38.0 C H 113 H 14 99 08/12/22 17:00 102/67 08/12/22 16:00 37.7 C H 111 H 14 99 08/12/22 16:00 108/69 08/12/22 15:00 37.6 C H 115 H 4 L 100 08/12/22 15:00 115/67 08/12/22 14:08 113/71 08/12/22 14:08 37.5 C 108 H 14 100 08/12/22 14:00 37.6 C H 110 H 12 100 08/12/22 13:00 37.8 C H 109 H 12 99 08/12/22 13:00 102/65 08/12/22 12:00 38.1 C H 113 H 14 96 08/12/22 12:00 117/66 08/12/22 11:00 38.1 C H 108 H 14 99 08/12/22 11:00 102/60 08/12/22 10:00 38.4 C H 101 H 14 100 08/12/22 10:00 104/63 08/12/22 09:00 38.1 C H 99 H 14 100 08/12/22 09:00 103/63 08/12/22 08:00 37.8 C H 107 H 12 99 08/12/22 08:00 107/64 08/12/22 11:25 Mechanical Vent 08/12/22 16:00 30 08/12/22 16:00 113 H 08/12/22 12:00 30 08/12/22 14:55 116 H 14 99 30 08/12/22 10:51 111 H 14 98 30 08/12/22 08:00 30 08/12/22 08:00 101 H
[2022-08-12] MEDS: ARTIFICIAL TEARS OP OINT 3.5 GM TUBE OP SCH (20:39)
[2022-08-12] MEDS: ACETAMINOPHEN 1,000 MG/100 ML VIAL IV PRN (22:30)
[2022-08-13] MEDS: AMPICILLIN/SULBACTAM SOD 3,000 MG in DEXTROSE 5% 100 ML IV SCH ×3 (00:02→12:05)
[2022-08-13] MEDS: INSULIN ASPART PER UNIT SC SCH ×5 (00:02→23:18)
[2022-08-13] MEDS: TRIMETHOPRIM/POLYMYXIN B OP SCH ×5 (00:03→23:19)
[2022-08-13] MEDS: TUBE FEEDING WATER FLUSH JT SCH ×3 (02:03→17:55)
[2022-08-13] MEDS: PEPTAMEN 1.5 CAL 1,000 ML BAG JT SCH ×2 (05:23→23:29)
[2022-08-13 06:03] LABS: Hematocrit (blood only) 24.1 % (40.1-51.0); Hemoglobin 7.6 g/dl (14.0-18.0); Mean Corpuscular Hemoglobin 30.2 pg (25.0-34.0); Mean Corpuscular Hgb Conc 31.5 g/dL (32.0-36.0); Mean Corpuscular Volume 95.6 fL (80.0-100.0); Mean Platelet Volume 9.2 fL (9.4-12.4); Platelet Count 344 K/uL (130-400); RDW Coefficient of Variation 16.1 % (11.5-14.5); RDW Standard Deviation 55.5 fL (36.4-46.3); Red Blood Count 2.52 M/uL (4.63-6.08); White Blood Count 16.15 K/ul (4.8-10.8)
[2022-08-13] MEDS: SODIUM CHLOR 7% 4 ML NEB NEB SCH ×2 (06:20→19:08)
[2022-08-13 06:28] LABS: Alanine Aminotransferase 59 U/L (7-52); Albumin Globulin Ratio 0.9 (0.9-2); Albumin Level 2.9 gm/dl (3.4-5.0); Alkaline Phosphatase 298 U/L (34-104); Anion Gap 7 (3-11); Aspartate Aminotransferase 37 U/L (13-39); Bilirubin,Total 0.3 mg/dl (0.2-1.0); Blood Urea Nitrogen 9 mg/dl (6-23); Calcium 8.3 mg/dl (8.5-10.1); Carbon Dioxide 27 mmol/L (21-32); Chloride 108 mmol/L (98-107); Creatinine Clr Calc Pharmacy 565.9 ml/min; Est GFR (African American) > 150.0 ml/min; Est GFR (Non-African American) > 150.0 ml/min; Globulin 3.4 gm/dl (2.5-4.0); Glucose 141 mg/dl (70-99(Fasting)); Magnesium 1.6 mg/dl (1.7-2.4); Potassium 3.6 mmol/L (3.5-5.1); Sodium 142 mmol/L (136-145); Total Protein 6.3 gm/dl (6.0-8.3)
[2022-08-13] MEDS ORDERED: MAGNESIUM SULFATE / D5W 1 GM/100 ML BAG IV ONE (09:00)
[2022-08-13] MEDS: MIDODRINE HCL 2.5 MG TAB PO SCH ×3 (09:19→17:53)
[2022-08-13] MEDS: CHOLECALCIFEROL 1,000 UNITS 25 MCG TAB JT SCH (09:20)
[2022-08-13] MEDS: LANSOPRAZOLE 15 MG SOLTAB PO SCH (09:20)
[2022-08-13] MEDS: ARTIFICIAL TEARS OP SCH ×4 (09:20→19:43)
[2022-08-13] MEDS: NON-FORMULARY MEDICATION (Zinc Oxide 20 % Ointment) TOP SCH ×3 (09:22→19:44)
[2022-08-13] MEDS: ACETAMINOPHEN 1,000 MG/100 ML VIAL IV PRN (10:30)
--- NOTE | 2022-08-13 11:27 | Pulmonology Progress Note ---
Date of Service August 13, 2022 Assessment & Plan (1) Ventilator dependence: (2) Severe sepsis: (3) HENRI (acute kidney injury): (4) ALS (amyotrophic lateral sclerosis): Plan Impression: 37-year-old male vent dependent due to ALS admitted with sepsis found to have sensitive Klebsiella growing from tracheal aspirate as well as methicillin sensitive staph. He has been placed on antibiotics in the form of Unasyn with ID oversight but remains persistently febrile with elevated white blood cell count. He also has a history of significant pancreatitis with pancreatic pseudocyst formation requiring drainage previously. Recommendations: 1. Ventilator dependence due to ALS: Continue current vent settings. The patient appears to be oxygenating and ventilating well. 2. Acute purulent tracheitis: Klebsiella and methicillin sensitive staph aureus. Antibiotics under the direction of ID 3. Management of the patient's other medical issues is deferred to the hospitalist. Will continue to follow for respiratory/ventilator issues. Admission and Anticipated Discharge Date Admission Date: August 05, 2022 Subjective Patient seen and examined. He is somewhat somnolent but is able to blink eyes to questions appropriately. He denies shortness of breath or pain at his tracheostomy site. Review of Systems Review of Systems: Limited due to nonverbal state Physical Exam Physical Exam: Constitutional: No acute distress HEENT: PERRLA, positive trach Respiratory system: Decreased air entry bilaterally, no wheeze, positive rhonchi bilaterally, mild crackles bilateral lower lobes CVS: S1-S2 positive, no murmurs or gallops Abdomen: Soft, nontender, nondistended, positive bowel sounds x4, positive G-J tube Extremities: +2 pulses bilaterally radialis/ dorsalis pedis, no cyanosis, +1 pitting edema bilateral lower extremity Neuro: Awake alert oriented to self and place Psych: Normal mood and affect G/U: Positive Varela Musculoskeletal: Stage I-II decubitus ulcer Results & Data Results & Data ([facility]) Vital Signs (Past 12 Hours) Vital Signs Temp Pulse Pulse Resp BP Pulse Ox O2 Del Method 08/13/22 11:00 38.0 C H 110 H 14 98 08/13/22 10:00 38.2 C H 102 H 14 100 08/13/22 10:00 101/57 L 08/13/22 09:44 107/63 08/13/22 09:44 38.2 C H 108 H 14 100 08/13/22 09:00 38.1 C H 106 H 14 99 08/13/22 08:00 38.0 C H 110 H 14 99 08/13/22 07:00 37.9 C H 106 H 14 100 08/13/22 08:20 111 H 08/13/22 08:00 08/13/22 06:00 37.9 C H 113 H 14 100 08/13/22 05:00 37.9 C H 110 H 14 100 08/13/22 06:42 105 H 14 99 08/13/22 06:42 105 H 14 99 Mechanical Vent 08/13/22 04:05 112/67 08/13/22 04:05 38.1 C H 111 H 12 100 08/13/22 04:00 38.0 C H 109 H 14 100 08/13/22 03:00 37.9 C H 111 H 13 99 08/13/22 02:00 37.9 C H 108 H 14 99 08/13/22 01:00 37.9 C H 113 H 14 98 08/13/22 00:00 38.1 C H 120 H 14 98 08/13/22 00:00 111/65 08/13/22 04:00 08/13/22 02:55 112 H 14 99 08/13/22 00:00 FiO2 08/13/22 11:00 08/13/22 10:00 08/13/22 10:00 08/13/22 09:44 08/13/22 09:44 08/13/22 09:00 08/13/22 08:00 08/13/22 07:00 08/13/22 08:20 08/13/22 08:00 30 08/13/22 06:00 08/13/22 05:00 08/13/22 06:42 30 08/13/22 06:42 30 08/13/22 04:05 08/13/22 04:05 08/13/22 04:00 08/13/22 03:00 08/13/22 02:00 08/13/22 01:00 08/13/22 00:00 08/13/22 00:00 08/13/22 04:00 30 08/13/22 02:55 30 08/13/22 00:00 30 Laboratory Results 08/13/22 05:37 08/13/22 05:37 Diagnostic Findings No new imaging PG Care Time/CCT Total # of Minutes Spent Total Time Spent with Patient: Total time spent is greater than 50% in coordination of care (as documented) at patient's floor/unit and/or counseling patient: Coding Level of Care Code 51417 Subseq Hosp Care Lvl 2 Diagnoses Ventilator dependence Z99.11 Severe sepsis A41.9; R65.20 HENRI (acute kidney injury) N17.9 ALS (amyotrophic lateral sclerosis) G12.21
--- NOTE | 2022-08-13 12:23 | Infectious Disease Progress Nt ---
Date of Service August 13, 2022 Assessment & Plan (1) Fever: (2) Pancreatitis: (3) Pseudocyst of pancreas: (4) Chronic respiratory failure: (5) Ascites: Plan Assessment: 37-year-old male, past medical history of left ventricular systolic dysfunction, chronic pancreatitis with pancreatic pseudocyst, ALS, bedbound with quadriplegia, status post trach and feeding tube, who presented to the ED on 08/05/2022 for lethargy. ID consulted for fevers. Problem List: 1. Tracheostomy dependent, Pneumonia 2. Chronic Pancreatitis with pseudocyst, fluid collections, ascites 3. Fevers 4. ALS, quadraplegia 5. R eye blepharitis Admitted with concern for infection per pt's due to lethargy, increased trach site drainage and increased SOB although no noted change in vent settings- noted to have leukocytosis, elevated lactate, relative HENRI on admission. CT scan chest with b/l consolidation and opacities suggestive of PNA vs. aspiration. 08/05 Sputum cx with MSSA and Klebsiella R only to cefazolin. 08/05 Bcxs NGTD 08/06 Fungal Bcx pending. 08/06 MRSA screen negative, pt had been on zosyn. empiric vanco stopped due to negative MRSA screen. Caspofungin added empirically 08/06 given risk for candidemia. diarrhea noted 08/08, but appeared c/w TF and no BMs 08/09 to date, R eye blepharitis noted. WBC improved, Fevers are now daily Repeat CT C/A/P 08/11: 1. persistent bibasilar consolidation. 2.Progressively worsened acute pancreatitis with mildly increased amount of abdominal ascites. Numerous peripancreatic fluid collections appear to be generally stable from the exam obtained 6 days earlier. Exam notable for improved R eye blepharitis, Sacral decubitus ulcer (`Stage II), peripheral IVs only, abdominal fluid shift Discussion: Patient initially admitted for pneumonia growing sensitive species. He was narrowed to Unasyn. Clinically, his respiratory status has improved. His fever curve has worsened and despite improved leukocytosis it is starting to increase. Etiology include drug fever (unasyn), vs worsening pancreatitis/intra-abdominal infection. Today is Day 9 of Unasyn, we will dc off PCN and change to Cefepime to cover intra abdominal process. GI consultation pending. Recommend: -DC Unasyn -start Cefepime 2G IV TID -Further evaluation of abdominal ascites, if enough fluid for paracentesis -GI evaluation in setting of worsening pancreatitis I spoke with Dr. Garcia. I also called patients today to update and left voicemail. Follow with you. Josette Baron MD [facility], [facility] Admission and Anticipated Discharge Date Admission Date: August 05, 2022 Subjective Subsequent visit was provided via telemedicine using two-way real-time interactive telecommunication between the patient and the telemedicine provider. For the duration of the visit, the provider was performing the assessment from a different facility than the patient. This includesuse of bluetooth stethoscope forauscultationperformed by the telepresenter that the telemedicine provider can hear if described in the physical exam. Dance Teacher contact information: Please call [facility] . (Phone Number For Physician Use Only) After establishing a telemedicine visit, patient was: Patient was verified with two unique identifiers, Patient/authorized rep acknowledged consent and understanding and Gave permission to continue telehealth session Subsequent Time Spent w Inpatient: 25 minutes Patient awake, opens eyes but very sleepy. Not answering many questions. Acute events: Febrile overnight, given tylenol x 2 Cooling blanket placed Physical Exam Physical Exam: Red face NAD R eye upperlid swelling, improved, no conjunctivitis No rash on body PIVs only, no central lines +Fluid shift, nontender Results & Data ([facility]) Vital Signs (Past 12 Hours) Vital Signs Temp Pulse Pulse Resp BP Pulse Ox O2 Del Method 08/13/22 11:35 113 H 15 99 08/13/22 11:00 38.0 C H 110 H 14 98 08/13/22 10:00 38.2 C H 102 H 14 100 08/13/22 10:00 101/57 L 08/13/22 09:44 107/63 08/13/22 09:44 38.2 C H 108 H 14 100 08/13/22 09:00 38.1 C H 106 H 14 99 08/13/22 08:00 38.0 C H 110 H 14 99 08/13/22 07:00 37.9 C H 106 H 14 100 08/13/22 08:20 111 H 08/13/22 08:00 08/13/22 06:00 37.9 C H 113 H 14 100 08/13/22 05:00 37.9 C H 110 H 14 100 08/13/22 06:42 105 H 14 99 08/13/22 06:42 105 H 14 99 Mechanical Vent 08/13/22 04:05 112/67 08/13/22 04:05 38.1 C H 111 H 12 100 08/13/22 04:00 38.0 C H 109 H 14 100 08/13/22 03:00 37.9 C H 111 H 13 99 08/13/22 02:00 37.9 C H 108 H 14 99 08/13/22 01:00 37.9 C H 113 H 14 98 08/13/22 04:00 08/13/22 02:55 112 H 14 99 FiO2 08/13/22 11:35 30 08/13/22 11:00 08/13/22 10:00 08/13/22 10:00 08/13/22 09:44 08/13/22 09:44 08/13/22 09:00 08/13/22 08:00 08/13/22 07:00 08/13/22 08:20 08/13/22 08:00 30 08/13/22 06:00 08/13/22 05:00 08/13/22 06:42 30 08/13/22 06:42 30 08/13/22 04:05 08/13/22 04:05 08/13/22 04:00 08/13/22 03:00 08/13/22 02:00 08/13/22 01:00 08/13/22 04:00 30 08/13/22 02:55 30 Laboratory Results Laboratory Tests 08/13/22 08/13/22 05:37 05:37 WBC 16.15 H RBC 2.52 L Creatinine < 0.20 L ALT 59 H Alkaline Phosphatase 298 H
[2022-08-13] MEDS: CEFEPIME 2,000 MG in SYRINGE 0 ML IV SCH ×2 (13:35→23:19)
--- NOTE | 2022-08-13 14:39 | Gastrointestinal Consultation ---
Date of Consultation August 13, 2022 Assessment & Plan (1) Ascites: (2) Pancreatitis: Plan If infectious disease specialist is suspicious of the pancreatic pseudocystic being the source of sepsis, then he should be transferred to a tertiary care center for IR drainage. We are not able to provide this service here and we are not able to drain the pseudocysts from an EUS approach. Supervising Physician Co-Signing Physician Notes I performed a history and physical examination of the patient today, including specifically on physical exam - soft abdomen. I have discussed the patient's management with the advanced practitioner. Please refer to the nurse practitioner's note for the documented findings and plan of care. Patient with Hx of pancreatitis and pseudocysts, prior drainage by IR, now with sepsis and fever, GI consulted for peripancreatic fluid collections. If ID highly suspects his fever and sepsis is related to his peripancreatic fluid collections then please transfer the patient to tertiary care center for IR drainage. Please call radiology here to attempt paracentesis of the ascites, please check Amylase on the fluid if done. Recall GI if needed. History of Present Illness Reason for Consultation: Worsening acute pancreatitis Requesting Physician: Dr. Garcia Attending Physician: Nallely Garcia MD History of Present Illness Pt is a 37 yo male w hx of ALS, trache/vent dependent, quadrapalegic, sleep apnea and G-J feeding tube dependent, was admitted on 08/05 w sepsis, HENRI, pneumonia, infected pancreas pseudocysts. He initially presented w pancreatitis in May and was tx'ed to [facility] (). During that admission hb dropped to 6.5, he received blood transfusiona and underwent IR ebolitation of the gastroduodenal artery. IR pseudocyst aspiration w E.Coli. He was admitted again to [facility] on 06/10 for worsening abdominal pain and intolerance of feeding via PEJ tube, then transferred to [facility] where he was hospitalized from 06/17->06/21 He was discharged on Cipro which he completed in july. He did well until Friday when he started becoming lethargic. He was admitted here at [facility] 08/05/22 for pneumonia, severe sepsis, metabolic acidosis, HENRI. He initially received Unasyn and is now receiving Cefepime 2Gm Q 12 hrs, tube feedings, midodrine. CT on arrival w improving size of the pseudocysts but repeat on 08/11 worsening acute pancreatitis, increasing amt of abdominal ascites and stable size of the pseudocysts, the largest is 3.8 cm near the pancreatic tail. Allergies Allergy/AdvReac Type Severity Reaction Status Date / Time No Known Allergies Allergy Verified 05/07/22 19:50 Home Medications Medication Instructions Recorded Confirmed Type acetaminophen 160 mg/5 mL oral 640 mg feeding tube Q6 PRN Pain, 05/07/22 06/10/22 History liquid (Children's Acetaminophen) Moderate atropine 1 % eye drops 1 drp sublingual QID PRN increased 05/07/22 06/10/22 History secretions cholecalciferol (vitamin D3) 25 1,000 unit feeding tube DAILY 05/07/22 06/10/22 History mcg (1,000 unit) capsule (Vitamin D3) ibuprofen 100 mg/5 mL oral 400 mg feeding tube Q6 PRN Pain, 05/07/22 06/10/22 History suspension Moderate melatonin 3 mg tablet 3 - 6 mg PO HS PRN Sleep 05/07/22 06/10/22 History nystatin 100,000 unit/gram topical 1 applic topical DAILY PRN Rash 05/07/22 06/10/22 History powder tramadol 50 mg tablet 50 mg feeding tube Q6H PRN Pain 05/07/22 06/10/22 History zinc oxide 20 % topical ointment 1 applic topical TID 05/07/22 06/10/22 History A,D-aloe hgog-kuzvzczhfq-u.pet 1 ea topical BID PRN scrotal area 06/10/22 06/10/22 History topical ointment carboxymethylcellulose sodium 0.5 1 drp ophthalmic (eye) UD PRN Dry 06/10/22 06/10/22 History % eye drops Eye(S) dextran 70-hypromellose (PF) 0.1 1 drp OPB QID 06/10/22 06/10/22 History %-0.3 % eye drops in a dropperette (Artificial Tears (PF)) famotidine 40 mg/5 mL (8 mg/mL) 20 mg feeding tube BID PRN 06/10/22 06/10/22 History oral suspension Indigestion guaifenesin 100 mg/5 mL oral liquid 200 mg feeding tube BID PRN Cough 06/10/22 06/10/22 History ipratropium bromide 21 mcg (0.03 2 spray intranasal TID 06/10/22 06/10/22 History %) nasal spray lidocaine 5 % topical ointment 1 applic topical BID PRN Pain 06/10/22 06/10/22 History midodrine 5 mg tablet 5 mg feeding tube TID 06/10/22 06/10/22 History nut.tx impaired digestive 1 ea feeding tube UD 06/10/22 06/10/22 History fxn-fiber 0.07 gram-1.5 kcal/mL oral liquid (Vital 1.5 Cali) polyethylene glycol 3350 17 17 g feeding tube DAILY PRN 06/10/22 06/10/22 History gram/dose oral powder (Miralax) Constipation riluzole 50 mg tablet 50 mg feeding tube DAILY 06/10/22 06/10/22 History senna leaf extract 176 mg/5 mL 15 ml feeding tube BID PRN 06/10/22 06/10/22 History oral syrup (senna) Constipation white petrolatum-mineral oil 57.3 1 applic ophthalmic (eye) HS 06/10/22 06/10/22 History %-42.5 % eye ointment (Lubricant Eye) lansoprazole 15 mg delayed 15 mg PO DAILY #0 tabs 06/16/22 Rx release,disintegrating tablet (Prevacid SoluTab) Patient History Medical History ALS (amyotrophic lateral sclerosis) DX FEBRUARY 2014 Atrial fibrillation with RVR isolated hx of, no further reoccurances Cardiac murmur AN Dry eye syndrome Left ventricular systolic dysfunction Sleep apnea USES APAP DEVICE (DX WITH ALS) ALWAYS USING >WITH 3L AT HS ONLY Slow gastric motility D/T ALS Uses feeding tube SYRINGE FEEDING THRU PEG TUBE (STILL SWALLOWS PILLS ORALLY) Surgical History History of esophagogastroduodenoscopy (EGD) History of herniorrhaphy History of tooth extraction Hx of LASIK PRK S/P percutaneous endoscopic gastrostomy (PEG) tube placement Family History Mother Family history of diabetes mellitus Other No family history of adverse response to anesthesia Social History Smoking Status: Never smoker Second Hand Exposure: No; Hx Alcohol Use: No Hx Substance Use: Yes Last Used Substance: Unknown Substance Use Type Other:: Medical Marijuana SL or salve Preferred Language: Danish Communication Ability: Effective Windshield Installer Required: No Beliefs That Will Affect Care: Episcopal and Spiritual marital status: Current Living Situation: Spouse and Family Current Living Situation Comment: AND 3 SONS How many Children do You have: 3 Feels Safe at Home: Yes Assistive Devices: Hospital Bed and Scooter/Electric Scooter Review of Systems Review of Systems: Not able to obtain ROS from the pt. Hx is obtained by review of [facility] and [facility] records. Physical Exam Constitutional: + ill appearing and + obese Eyes: + anicteric sclerae and PERRL; no nystagmus ENMT: external ear and nose normal, oropharynx normal Neck: Permanent trach in place Respiratory: Aeration of both lungs, decreased sounds to the bases, no adventitious sounds Cardiovascular: RRR, no murmur, no edema Gastrointestinal (Abdomen): G/J tube in place. Mild distention, non tender Skin: no rashes, warm and dry Neurologic: quadriplegic Lymphatic: no cervical or axillary lymphadenopathy Results & Data ([facility]) Vital Signs (Past 12 Hours) Vital Signs Temp Pulse Pulse Resp BP Pulse Ox O2 Del Method 08/13/22 11:35 113 H 15 99 08/13/22 11:00 38.0 C H 110 H 14 98 08/13/22 10:00 38.2 C H 102 H 14 100 08/13/22 10:00 101/57 L 08/13/22 09:44 107/63 08/13/22 09:44 38.2 C H 108 H 14 100 08/13/22 09:00 38.1 C H 106 H 14 99 08/13/22 08:00 38.0 C H 110 H 14 99 08/13/22 07:00 37.9 C H 106 H 14 100 08/13/22 08:20 111 H 08/13/22 08:00 08/13/22 06:00 37.9 C H 113 H 14 100 08/13/22 05:00 37.9 C H 110 H 14 100 08/13/22 06:42 105 H 14 99 08/13/22 06:42 105 H 14 99 Mechanical Vent 08/13/22 04:05 112/67 08/13/22 04:05 38.1 C H 111 H 12 100 08/13/22 04:00 38.0 C H 109 H 14 100 08/13/22 03:00 37.9 C H 111 H 13 99 08/13/22 04:00 08/13/22 02:55 112 H 14 99 FiO2 08/13/22 11:35 30 08/13/22 11:00 08/13/22 10:00 08/13/22 10:00 08/13/22 09:44 08/13/22 09:44 08/13/22 09:00 08/13/22 08:00 08/13/22 07:00 08/13/22 08:20 08/13/22 08:00 30 08/13/22 06:00 08/13/22 05:00 08/13/22 06:42 30 08/13/22 06:42 30 08/13/22 04:05 08/13/22 04:05 08/13/22 04:00 08/13/22 03:00 08/13/22 04:00 30 08/13/22 02:55 30 Laboratory Results WBC 16, Hb 7.6, Hct 24, Plts 344, Na 142, K 3.6, Cl 108, CO2 27, BUN 9, Cr 0.2, glucose 141, Ca 8.3, Mg 1.6, Album 2.9 T Bili 0.3, AST 37, ALT 59, Alk Phos 298 Diagnostic Findings CTAP 08/11/22: 1. Small left and trace right pleural effusions with persistent bibasilar consolidation. 2. Progressively worsened acute pancreatitis with mildly increased amount of abdominal ascites. Numerous peripancreatic fluid collections appear to be generally stable from the exam obtained 6 days earlier. Sterility cannot be determined by imaging alone. 3. 4 mm left renal calculus. No ureteral calculi or hydronephrosis. 4. No bowel obstruction or bowel wall thickening. 5. Attenuated splenic vein without occlusion is similar to prior. 6. Upper abdominal lymphadenopathy is likely reactive. CTAP w IV contrast 08/05/22: 1. Gastrojejunostomy tube in place with decreased gastric wall thickening compared to the prior exam. 2. Resolving acute pancreatitis with decreased size of the numerous peripancreatic fluid collections suggestive of pseudocysts. 3. Small left pleural effusion with dependent bibasilar airspace opacities favoring atelectasis. 4. 4 mm left renal calculus. No ureteral calculi or hydronephrosis. 5. No bowel obstruction or bowel wall thickening.
--- NOTE | 2022-08-13 15:16 | Hospitalist Progress Note ---
Date of Service August 13, 2022 Assessment & Plan (1) Severe sepsis: Plan: Met sepsis criteria on admission with leukocytosis 27.5, febrile, lactate 3.9 and tachycardia -likely pulm source, +sputum culture CT chest with Tracheostomy cannula in place with mild tracheobronchial secretions. Small left pleural effusion with bibasilar consolidation. Additional centrilobular groundglass nodular opacities are present within the superior segments of the lower lobes. Findings are suggestive of pneumonia versus aspiration. CT abd/pelvis showed resolving acute pancreatitis with decreased size of the numerous peripancreatic fluid collections suggestive of pseudocysts. sputum cx positive for staph aureus and klebsiella pna blood cx no growth He was on IV Zosyn and Vanco Pt was started on caspofungin that was discontinued on 08/08 since cx no growth Currently on IV unasyn Repeat CT abd/pelvis showed progressively worsened acute pancreatitis with mildly increased amount of abdominal ascites. Numerous peripancreatic fluid collections appear to be generally stable from the exam obtained [address] chest showed small left and trace right pleural effusions with persistent bibasilar consolidation. WBC started to increased to 16K Stool for C. difficile negative Peripheral smear showed no evidence of inclusion body Continue to be febrile- I don't think pt continues to have fever due to pneumonia because he has been on day 9 abx Not sure if fever is due to Unasyn vs worsening pancreatitis/intra-abdominal infection case discussed with ID that suggested to discontinue IV Unasyn and start on cefepime Will recheck blood cx, urine cx and sputum cx Will talk to radiology to check if there is enough fluid in the ascites to tap Continue monitor closely (2) HENRI (acute kidney injury): Plan: -elevated BUN-resolved. Uncertain etiology - S/p IVF - Avoid nephrotoxics. - Lab improved with BUN 23 and Anion gap 10 - Continue monitor BMP (3) Abnormal LFTs: Plan: - likely related to sepsis-improved - CT A/P noted - monitor (4) Lactic acidosis: Plan: - lactate improved with IVF resuscitation. (5) High anion gap metabolic acidosis: Plan: AG 27 on admission from sepsis and HENRI. Received fluids-resolved. (6) Chronic respiratory failure: Plan: - wean to baseline vent settings per ICU, ventilator dependent. (7) Electrolyte imbalance: Plan: Mg 1.6 today Mg replaced Continue monitor electrolytes (8) ALS (amyotrophic lateral sclerosis): Plan: - bedbound with quadriplegia, has trach on vent. - continue vent support. - continue home riluzole (9) Left ventricular systolic dysfunction: Plan: euvolemic, off IVF. continues with free water flushes (10) Pseudocyst of pancreas: Plan: CT with resolving acute pancreatitis with decreasing size of pseudocysts. Repeat CT abd/pelvis showed progressively worsened acute pancreatitis with mildly increased amount of abdominal ascites. Numerous peripancreatic fluid collections appear to be generally stable from the exam obtained 6 days earlier. Plan DVT ppx- sc lovenox Code Status: Full Code Admission and Anticipated Discharge Date Admission Date: August 05, 2022 Subjective Pt was seen and examined for follow sepsis/fever Lying in bed with no acute distress Continues to have intermittent fever Spoke to ID over the phone that recommended to repeat blood cx, urine cx and sputum cx Denies any chest pain, palpitation, dizziness Review of Systems Review of Systems: All systems reviewed & are unremarkable except as noted in Subjective Physical Exam Physical Exam: General Appearance:Moderately built and nourished,Chronic ill appearing Head: normocephalic, Atraumatic Eyes: normal inspection, EOMI Neck: supple, Trachea midline,+Trach +vent Respiratory/Chest: Decreased breath sounds Cardiovascular: S1, S2, No murmur Abdomen/GI:+ +J tube, Non tender Extremities/Musculoskeletal:Atrophy, Trace edema Neurologic/Psych:AAO, Quadriplegic, ALS Skin: normal color, warm Results & Data Results & Data ([facility]) Vital Signs (Past 12 Hours) Vital Signs Temp Pulse Pulse Resp BP Pulse Ox O2 Del Method 08/13/22 11:35 113 H 15 99 08/13/22 11:00 38.0 C H 110 H 14 98 08/13/22 10:00 38.2 C H 102 H 14 100 08/13/22 10:00 101/57 L 08/13/22 09:44 107/63 08/13/22 09:44 38.2 C H 108 H 14 100 08/13/22 09:00 38.1 C H 106 H 14 99 08/13/22 08:00 38.0 C H 110 H 14 99 08/13/22 07:00 37.9 C H 106 H 14 100 08/13/22 08:20 111 H 08/13/22 08:00 08/13/22 06:00 37.9 C H 113 H 14 100 08/13/22 05:00 37.9 C H 110 H 14 100 08/13/22 06:42 105 H 14 99 08/13/22 06:42 105 H 14 99 Mechanical Vent 08/13/22 04:05 112/67 08/13/22 04:05 38.1 C H 111 H 12 100 08/13/22 04:00 38.0 C H 109 H 14 100 08/13/22 04:00 FiO2 08/13/22 11:35 30 08/13/22 11:00 08/13/22 10:00 08/13/22 10:00 08/13/22 09:44 08/13/22 09:44 08/13/22 09:00 08/13/22 08:00 08/13/22 07:00 08/13/22 08:20 08/13/22 08:00 30 08/13/22 06:00 08/13/22 05:00 08/13/22 06:42 30 08/13/22 06:42 30 08/13/22 04:05 08/13/22 04:05 08/13/22 04:00 08/13/22 04:00 30
[2022-08-13] MEDS: ARTIFICIAL TEARS OP OINT 3.5 GM TUBE OP SCH (19:43)
[2022-08-13] MEDS: MENTHOL-ZINC OXIDE 360 APPLN/120 GM TUBE EXT PRN (20:44)
[2022-08-13] MEDS: traMADol HCL 50 MG TABLET NG PRN (20:46)
[2022-08-14] MEDS: TUBE FEEDING WATER FLUSH JT SCH ×3 (03:17→18:02)
[2022-08-14] MEDS: traMADol HCL 50 MG TABLET NG PRN ×2 (04:13→21:02)
[2022-08-14 05:22] LABS: Anion Gap 9 (3-11); Blood Urea Nitrogen 12 mg/dl (6-23); Calcium 8.5 mg/dl (8.5-10.1); Carbon Dioxide 24 mmol/L (21-32); Chloride 106 mmol/L (98-107); Creatinine Clr Calc Pharmacy 565.9 ml/min; Est GFR (African American) > 150.0 ml/min; Est GFR (Non-African American) > 150.0 ml/min; Glucose 138 mg/dl (70-99(Fasting)); Phosphorus 1.9 mg/dl (2.5-4.9); Potassium 3.6 mmol/L (3.5-5.1); Sodium 139 mmol/L (136-145)
[2022-08-14] MEDS: INSULIN ASPART PER UNIT SC SCH ×3 (05:27→18:25)
[2022-08-14] MEDS: TRIMETHOPRIM/POLYMYXIN B OP SCH ×2 (05:30→13:26)
[2022-08-14 05:33] LABS: Hematocrit (blood only) 23.9 % (40.1-51.0); Hemoglobin 7.7 g/dl (14.0-18.0); Mean Corpuscular Hemoglobin 30.4 pg (25.0-34.0); Mean Corpuscular Hgb Conc 32.2 g/dL (32.0-36.0); Mean Corpuscular Volume 94.5 fL (80.0-100.0); Mean Platelet Volume 9.4 fL (9.4-12.4); Platelet Count 401 K/uL (130-400); RDW Coefficient of Variation 16.1 % (11.5-14.5); RDW Standard Deviation 54.8 fL (36.4-46.3); Red Blood Count 2.53 M/uL (4.63-6.08); White Blood Count 14.68 K/ul (4.8-10.8)
[2022-08-14] MEDS: SODIUM CHLOR 7% 4 ML NEB NEB SCH ×2 (07:20→19:28)
[2022-08-14] MEDS ORDERED: POTASSIUM PHOS 3 MMOL/1 ML INFUSION IV STA (07:56)
--- NOTE | 2022-08-14 07:57 | Pulmonology Progress Note ---
Date of Service August 14, 2022 Assessment & Plan (1) Ventilator dependence: (2) ALS (amyotrophic lateral sclerosis): Plan Impression: 37-year-old male vent dependent due to ALS admitted with sepsis found to have sensitive Klebsiella growing from tracheal aspirate as well as methicillin sensitive staph. Antibiotics are being dictated by infectious disease. He initially had some issues with his trach last night. There was no leak however the patient felt that he needed to be upsized. This morning the symptoms have resolved. Recommendations: 1. Ventilator dependence due to ALS: Continue current vent settings. The patient appears to be oxygenating and ventilating well. 2. Acute purulent tracheitis: Klebsiella and methicillin sensitive staph aureus. Antibiotics under the direction of ID 3. There was concern about need to potentially upsize the trach. I advised this patient that the trach was performed surgically. Upsizing it would not be a simple bedside procedure as it may require dilatation. If the trach needs to be upsized, would recommend ENT consultation however at this point time the patient appears to be doing well and states he does not feel it needs to be upsized. Continue to follow. Will continue to follow for respiratory/ventilator issues. Admission and Anticipated Discharge Date Admission Date: August 05, 2022 Subjective Patient seen and examined. EMR reviewed. Discussed with bedside nursing. Overnight the patient was complaining to respiratory therapy and his bedside nurse that the trach was too small. There was no leak. He wanted the trach upsized. This morning he states he is feeling okay and he does not feel that the trach needs to be changed. There is no appreciable leak. He is oxygenating and ventilating well. Review of Systems Review of Systems: All systems reviewed & are unremarkable except as noted in Subjective Physical Exam Physical Exam: Constitutional: No acute distress HEENT: trach site clean dry and intact. No leak Respiratory system: Decreased breath sounds bilaterally without wheezing. No crackles CVS: S1-S2 positive, no murmurs or gallops Abdomen: Soft, nontender, nondistended, positive bowel sounds x4, positive G-J tube Extremities: +2 pulses bilaterally radialis/ dorsalis pedis, no cyanosis, +1 pit ting edema bilateral lower extremity Neuro: Awake, communicates via eye movements. G/U: Positive [place] Musculoskeletal: Stage I-II decubitus ulcer Results & Data Results & Data ([facility]) Vital Signs (Past 12 Hours) Vital Signs Temp Pulse Resp BP Pulse Ox O2 Del Method FiO2 08/14/22 06:00 37.5 C 101 H 14 98 08/14/22 05:00 37.5 C 104 H 14 96 08/14/22 04:00 37.6 C H 103 H 14 99 08/14/22 04:00 110/68 08/14/22 03:00 37.5 C 104 H 14 98 08/14/22 02:00 37.4 C 106 H 14 97 08/14/22 01:00 37.4 C 101 H 12 99 08/14/22 00:00 37.5 C 103 H 14 100 08/13/22 23:24 112/76 08/13/22 23:24 37.6 C H 101 H 12 99 08/13/22 23:00 37.8 C H 101 H 12 100 08/14/22 04:00 30 08/14/22 03:09 105 H 14 100 30 08/14/22 00:00 30 08/14/22 00:00 104 H 08/13/22 22:10 105 H 15 99 30 08/13/22 22:00 38.1 C H 99 H 14 99 08/13/22 22:00 102/63 08/13/22 21:00 37.9 C H 97 H 14 100 08/13/22 20:00 37.9 C H 101 H 14 100 08/13/22 20:00 121/78 08/13/22 20:00 30 08/13/22 20:00 Mechanical Vent Laboratory Results 08/14/22 04:51 08/14/22 04:51 PG Care Time/CCT Total # of Minutes Spent Total Time Spent with Patient: Total time spent is greater than 50% in coordination of care (as documented) at patient's floor/unit and/or counseling patient: Coding Level of Care Code 31605 Subseq Hosp Care Lvl 2 Diagnoses Ventilator dependence Z99.11 ALS (amyotrophic lateral sclerosis) G12.21
[2022-08-14] MEDS ORDERED: POTASSIUM PHOSPHATE 30 MMOL in SODIUM CHLORIDE 0.9% 500 ML IV ONE (08:15)
[2022-08-14] MEDS: MIDODRINE HCL 2.5 MG TAB PO SCH ×3 (09:03→18:02)
[2022-08-14] MEDS: CHOLECALCIFEROL 1,000 UNITS 25 MCG TAB JT SCH (09:04)
[2022-08-14] MEDS: LANSOPRAZOLE 15 MG SOLTAB PO SCH (09:04)
[2022-08-14] MEDS: NON-FORMULARY MEDICATION (Zinc Oxide 20 % Ointment) TOP SCH ×3 (09:06→20:32)
[2022-08-14] MEDS: ARTIFICIAL TEARS OP SCH ×4 (09:06→20:31)
--- NOTE | 2022-08-14 10:44 | Hospitalist Progress Note ---
Date of Service August 14, 2022 Assessment & Plan (1) Severe sepsis: Plan: Met sepsis criteria on admission with leukocytosis 27.5, febrile, lactate 3.9 and tachycardia -likely pulm source, +sputum culture Admission CT chest with possible pneumonia noted CT abd/pelvis showed resolving acute pancreatitis with decreased size of the numerous peripancreatic fluid collections suggestive of pseudocysts. sputum cx positive for staph aureus and klebsiella pna blood cx no growth Pt was started on caspofungin that was discontinued on 08/08 since cx no growth - Repeat CT abd/pelvis showed progressively worsened acute pancreatitis with mildly increased amount of abdominal ascites. Numerous peripancreatic fluid collections appear to be generally stable from the exam obtained 6 days earlier. - Repeat CT chest showed small left and trace right pleural effusions with persistent bibasilar consolidation. - WBC labile but steadily improving - Stool for C. difficile negative - was spiking fevers despite unasyn - ID consulted and thought to be drug fevers, changed to cefepime 08/13/2022 - with abdominal pain in setting of CT finding of worsening pancreatitis - repeat blood cx, urine cx and sputum cx pending - not enough ascites for paracentesis - GI consulted and no intervention - will follow up with ID about pancreatic fluid collections as source of infection - patient 24 hours afebrile today 08/14/2022 - Continue monitor closely (2) Pseudocyst of pancreas: Plan: - initial CT with resolving acute pancreatitis with decreasing size of pseudoc ysts. - Repeat CT abd/pelvis showed progressively worsened acute pancreatitis with mildly increased amount of abdominal ascites. Numerous peripancreatic fluid collections appear to be generally stable from the exam obtained 6 days earlier. - radiology consulted for paracentesis diagnostic - not enough fluid for para at this time - follow up ID recs abx vs possible transfer for drainage if thought to be source of infection (3) Abnormal LFTs: Plan: - likely related to sepsis-improved - CT A/P noted - monitor (4) Chronic respiratory failure: Plan: - wean to baseline vent settings per pulm - ventilator dependent. - at baseline at this time (5) Electrolyte imbalance: Plan: - replete prn (6) ALS (amyotrophic lateral sclerosis): Plan: - bedbound with quadriplegia, has trach on vent. - continue vent support. - continue home riluzole (7) Left ventricular systolic dysfunction: Plan: - euvolemic, off IVF. - ontinues with free water flushes Plan DVT ppx- sc lovenox Code Status: Full Code Dispo: PCU Diogenes Rodrigues MD [facility] Medicine Admission and Anticipated Discharge Date Admission Date: August 05, 2022 Subjective Patient with ALS vent dependent presented with sepsis thought to be secondary to pulmonary source. Has been on antibiotics with unasyn for 10 days, switched to cefepime 08/13/2022 due to ongoing fevers thought to be drug fevers with unaysn. Repeat CT of abdomen pelvis showed worsening pancreatitis. GI consulted with no intervention. ID following and recommended abx change to cefepime. Repeat cultures pending. Patient reports pain in back and abdomen on palpation. Denies issues with breathing, coughing, chest pain. Review of Systems Review of Systems: All systems were reviewed and negative except as indicated above. Physical Exam Physical Exam: Constitutional: No acute distress HE ENT: SHERRON, posit precious trach Respirat ory system:Decrea sed air entry bila terally, no wheeze , no rhonchi, mild crackles bilatera l lower lobes CVS: S1-S2 positive, n o murmurs or leigh ps Abdomen: Soft, nontender, nondist ended, positive alondra wel sounds x4, pos itive G-J tube Ext remities: +2 pulse s bilaterally radi quan/ dorsalis ped is, no cyanosis,+ 1 pitting edema bi lateral lower extr emity Neuro:Awake alert oriented to self and place Ps ych:Normal mood a nd affect G/U:Pos itive Varela Muscul oskeletal:Stage I -II decubitus ulce r Skin: no ra shes, warm and dry Lymphatic: no cervical or axi llary lymphadenopa thy Results & Data Results & Data ([facility]) Vital Signs (Past 12 Hours) Vital Signs Temp Pulse Resp BP Pulse Ox FiO2 08/14/22 07:25 102 H 14 98 30 08/14/22 06:00 37.5 C 101 H 14 98 08/14/22 05:00 37.5 C 104 H 14 96 08/14/22 04:00 37.6 C H 103 H 14 99 08/14/22 04:00 110/68 08/14/22 03:00 37.5 C 104 H 14 98 08/14/22 02:00 37.4 C 106 H 14 97 08/14/22 01:00 37.4 C 101 H 12 99 08/14/22 00:00 37.5 C 103 H 14 100 08/13/22 23:24 112/76 08/13/22 23:24 37.6 C H 101 H 12 99 08/13/22 23:00 37.8 C H 101 H 12 100 08/14/22 04:00 30 08/14/22 03:09 105 H 14 100 30 08/14/22 00:00 30 08/14/22 00:00 104 H Diagnostic Findings Laboratory Results WBC 14.68 K/ul (4.8-10.8) H 08/14/22 04:51 RBC 2.53 M/uL (4.63-6.08) L 08/14/22 04:51 Hgb 7.7 g/dl (14.0-18.0) L 08/14/22 04:51 POC Hgb 11.6 g/dl (14.0-18.0) L 08/05/22 20:50 Hct 23.9 % (40.1-51.0) L 08/14/22 04:51 POC Hct 34 % (42-52) L 08/05/22 20:50 MCV 94.5 fL (80.0-100.0) 08/14/22 04:51 MCH 30.4 pg (25.0-34.0) 08/14/22 04:51 MCHC 32.2 g/dL (32.0-36.0) 08/14/22 04:51 RDW Std Deviation 54.8 fL (36.4-46.3) H 08/14/22 04:51 RDW Coeff of Aissatou 16.1 % (11.5-14.5) H 08/14/22 04:51 Plt Count 401 K/uL (130-400) H 08/14/22 04:51 MPV 9.4 fL (9.4-12.4) 08/14/22 04:51 Immature Gran % (Auto) 0.7 % 08/12/22 07:33 Neut % (Auto) 83.5 % 08/12/22 07:33 Lymph % (Auto) 9.3 % 08/12/22 07:33 Redwood % (Auto) 5.2 % 08/12/22 07:33 Eos % (Auto) 1.2 % 08/12/22 07:33 Baso % (Auto) 0.1 % 08/12/22 07:33 Neut # (Auto) 12.97 K/uL (1.4-6.5) H 08/12/22 07:33 Lymph # (Auto) 1.45 K/uL (1.2-3.4) 08/12/22 07: Redwood # (Auto) 0.80 K/uL (0.24-0.82) 08/12/22 07:33 Eos # (Auto) 0.18 K/uL (0-0.50) 08/12/22 07:33 Baso # (Auto) 0.02 K/uL (0-0.2) 08/12/22 07: Immature Gran # (Auto) 0.11 K/uL (0.00-0.02) H 08/12/22 07:33 RBC Morphology Unremarkable 08/11/22 05:40 Polychromasia 1+ 08/09/22 04:17 Spherocytes Occasional 08/12/22 07:33 Peripher Smr Path Cons 08/11/22 16:42 PT 10.3 Seconds (9.0-12.0) 08/05/22 13:30 INR 1.0 (0.9-1.1) 08/05/22 13:30 APTT 27.7 Seconds (21.0-31.0) 08/05/22 13:30 PTT Ratio 1.0 08/05/22 13:30 Sample Site L Radial 08/09/22 09:20 POC pH 7.38 (7.35-7.45) 08/09/22 09:20 POC pCO2 41 mmHg (35-46) 08/09/22 09:20 POC pO2 115 mmHg (80-95) H 08/09/22 09:20 POC HCO3 24 allison/L (19-24) 08/09/22 09:20 POC Total CO2 26 mmol/L (24-31) 08/09/22 09:20 POC Base Excess -1.0 allison/L (-9-1.8) 08/09/22 09:20 ABG pH 7.65 (7.35-7.45) H* 08/05/22 15:07 ABG pCO2 23 mmHg (35-46) L 08/05/22 15:07 ABG pO2 94 mmHg (80-95) 08/05/22 15:07 ABG HCO3 25 mmol/L (19-24) H 08/05/22 15:07 POC ABG O2 Sat 98.0 % (90-95) H 08/09/22 09:20 ABG O2 Saturation 99.5 % (90-95) H 08/05/22 15:07 ABG Base Excess 5.9 mEq/L (-9-1.8) H 08/05/22 15:07 Praveen Test Pass 08/09/22 09:20 Oxygen Given 2L 08/05/22 15:07 O2 Delivery Device Ventilator 08/09/22 09:20 POC O2 Rate 14 08/09/22 09:20 POC FiO2 30 % 08/09/22 09:20 Tidal Volume 530 08/09/22 09:20 PEEP 6 08/09/22 09:20 POC Sodium 142 mmol/L (135-144) 08/05/22 20:50 Sodium 139 mmol/L (136-145) 08/14/22 04:51 POC Potassium 2.3 mmol/L (3.3-5.0) L* 08/05/22 20:50 Potassium 3.6 mmol/L (3.5-5.1) 08/14/22 04:51 Chloride 106 mmol/L (98-107) 08/14/22 04:51 Carbon Dioxide 24 mmol/L (21-32) 08/14/22 04:51 Anion Gap 9 (3-11) 08/14/22 04:51 BUN 12 mg/dl (6-23) 08/14/22 04:51 Creatinine < 0.20 mg/dl (0.6-1.4) L 08/14/22 04:51 Est Cr Clr Drug Dosing 565.9 ml/min 08/14/22 04:51 Est GFR ( Amer) > 150.0 ml/min 08/14/22 04:51 Est GFR (Non-Af Amer) > 150.0 ml/min 08/14/22 04:51 BUN/Creatinine Ratio TNP 08/14/22 04:51 Glucose 138 mg/dl (70-99(Fasting)) H 08/14/22 04:51 POC Glucose 130 mg/dl (70-99) H 08/13/22 23:13 Lactate 1.9 mmol/L (0.4-2.0) 08/05/22 17:26 Calcium 8.5 mg/dl (8.5-10.1) 08/14/22 04:51 Phosphorus 1.9 mg/dl (2.5-4.9) L 08/14/22 04:51 Magnesium 1.7 mg/dl (1.7-2.4) 08/14/22 04:51 Total Bilirubin 0.3 mg/dl (0.2-1.0) 08/13/22 05:37 Direct Bilirubin 0.2 mg/dl (0-0.2) 08/05/22 13:30 AST 37 U/L (13-39) 08/13/22 05:37 ALT 59 U/L (7-52) H 08/13/22 05:37 Alkaline Phosphatase 298 U/L (34-104) H 08/13/22 05:37 Troponin I High Sens 18.3 pg/ml (0-20) D 08/05/22 13:30 Total Protein 6.3 gm/dl (6.0-8.3) 08/13/22 05:37 Albumin 2.9 gm/dl (3.4-5.0) L 08/13/22 05:37 Globulin 3.4 gm/dl (2.5-4.0) 08/13/22 05:37 Albumin/Globulin Ratio 0.9 (0.9-2) 08/13/22 05:37 Lipase 135 U/L (11-82) H 08/05/22 13:30 Procalcitonin 1.28 ng/ml (0-0.5) H 08/05/22 13:30 Urine Color Yellow 08/05/22 16:50 Urine Appearance Clear (Clear) 08/05/22 16:50 Urine pH 5.0 (4.5-7.5) 08/05/22 16:50 Ur Specific Floyd 1.016 (1.000-1.030) 08/05/22 16:50 Urine Protein 1+ (Negative) H 08/05/22 16:50 Urine Glucose (UA) Negative (Negative) 08/05/22 16:50 Urine Ketones Negative (Negative) 08/05/22 16:50 Urine Blood Negative (Negative) 08/05/22 16:50 Urine Nitrite Negative (Negative) 08/05/22 16:50 Urine Bilirubin Negative (Negative) 08/05/22 16:50 Urine Urobilinogen Negative (Negative) 08/05/22 16:50 Ur Leukocyte Esterase Negative (Negative) 08/05/22 16:50 Urine WBC (Auto) 1-5 /hpf (0-5) 08/05/22 16:50 Urine RBC (Auto) 5-10 /hpf (0-4) H 08/05/22 16:50 U Hyaline Cast (Auto) 5-10 /lpf (0-5) H 08/05/22 16:50 U Epithel Cells (Auto) 5-10 /lpf (0-5) H 08/05/22 16:50 Urine Bacteria (Auto) Negative (Negative) 08/05/22 16:50 Nasal Screen MRSA (PCR) Negative (Negative) 08/06/22 04:58 Stool Occult Bld Scrn Negative (Negative) 08/11/22 13:15 Stl C. diff Tox B Gene Negative Cdiff Gene (Neg) 08/11/22 03:00 Vancomycin Trough 36.9 mcg/ml (10-20) H* 08/07/22 03:54 SARS-CoV-2, RNA, NAAT NEGATIVE (NEGATIVE) 08/05/22 17:07 Blood Type O Positive 08/11/22 18:17 Antibody Screen NEGATIVE 08/11/22 18:17 Crossmatch See Detail 08/11/22 18:17 Impressions Chest X-Ray 08/11/22 09:55 XR chest 1V portable HISTORY: 37 years-old Male f/u acute shortness of breath COMPARISON: Chest radiograph 08/08/2022, chest CT 08/05/20002009 TECHNIQUE: Portable AP view of the chest FINDINGS: Cardiac silhouette is enlarged. Tracheostomy cannula overlies the midline at the level the clavicular heads. No pneumothorax. Small left and possible trace right pleural effusions. Persistent bibasilar opacities appear stable. Bones appear grossly intact. IMPRESSION: 1. Cardiomegaly without pulmonary edema. 2. Small left and possible trace right pleural effusions with persistent bibasilar opacities. ACT 112: Negative or not required by law. The above report was generated using voice recognition software. It may contain grammatical, syntax or spelling errors. Electronically signed by: James Brody M.D. 08/11/2022 10:25 AM Abdomen/Pelvis CT 08/11/22 16:[address] WITH CONTRAST; CT abdomen and pelvis with IV contrast only CT DOSE: 1682.58 mGy.cm HISTORY: Follow up whole body scan in a patient with fever fever unknown origin TECHNIQUE: Multiaxial CT images of the chest, abdomen and pelvis were performed following the IV administration of 93 cc of Optiray. A dose lowering technique was utilized adhering to the principles of ALARA. COMPARISON: CT chest, abdomen and pelvis 08/05/2022 FINDINGS: CT CHEST: Tracheostomy cannula distal tip terminates at the level of the clavicular heads. Fluid within the airway proximal to the cannula. Mild tracheobronchial secretions. No thyroid nodule or lymphadenopathy. The heart is normal in size without pericardial effusion. No thoracic aortic aneurysm. Unremarkable pulmonary artery. Marked atrophy of the musculature redemonstrated. Small left and trace right pleural effusions. Dependent bibasilar consolidation. No pneumothorax. Mild patchy groundglass opacities throughout the right lung are new from prior. Unremarkable soft tissues. No acute fracture identified. Mild thoracolumbar compression deformities are again noted. CT ABDOMEN/PELVIS: No pneumatosis or pneumoperitoneum. Unremarkable spleen, gallbladder, and adrenal glands. Hepatic steatosis with mild right hemidiaphragmatic elevation. Patency of the hepatic and portal veins. The splenic vein is attenuated however is patent. There is persistent interstitial and peripancreatic inflammation which appears mildly worsened with increased amount of abdominal ascites. Peripancreatic fluid collections appear to be generally stable, with the largest measuring 3.8 cm adjacent to the pancreatic tail. Tiny fluid collections are again noted extending along the stomach and transverse colon. Embolization coils are noted adjacent to the distal stomach and pancreatic head. Gastrojejunostomy tube is in place. Persistent gastric wall thickening. 4 mm nonobstructing calculus of the superior pole left kidney. No ureteral calculi or hydronephrosis identified. Layering hyperdensity within the urinary bladder may represent stone fragments. Air-fluid level within the urinary bladder with diffuse wall thickening. Aorta and IVC appear unchanged. Periportal and precaval lymphadenopathy redemonstrated. There is marked diffuse muscle atrophy. No bowel obstruction or bowel wall thickening. Rectal catheter is in place. Normal appendix. No acute fracture. Demineralized appearance of the bones. IMPRESSION: 1. Small left and trace right pleural effusions with persistent bibasilar consolidation. 2. Progressively worsened acute pancreatitis with mildly increased amount of abdominal ascites. Numerous peripancreatic fluid collections appear to be generally stable from the exam obtained 6 days earlier. Sterility cannot be determined by imaging alone. 3. 4 mm left renal calculus. No ureteral calculi or hydronephrosis. 4. No bowel obstruction or bowel wall thickening. 5. Attenuated splenic vein without occlusion is similar to prior. 6. Upper abdominal lymphadenopathy is likely reactive. 7. Additional findings as above. ACT 112: Negative or not required by law. Dictated: 08/11/2022 6:09 PM Transcribed: 08/11/2022 6:37 PM [facility] [id number] [email or web address] Electronically signed by: James Brody M.D. 08/11/2022 6:[address] 08/11/22 16:[address] WITH CONTRAST; CT abdomen and pelvis with IV contrast only CT DOSE: 1682.58 mGy.cm HISTORY: Follow up whole body scan in a patient with fever fever unknown origin TECHNIQUE: Multiaxial CT images of the chest, abdomen and pelvis were performed following the IV administration of 93 cc of Optiray. A dose lowering technique was utilized adhering to the principles of ALARA. COMPARISON: CT chest, abdomen and pelvis 08/05/2022 FINDINGS: CT CHEST: Tracheostomy cannula distal tip terminates at the level of the clavicular heads. Fluid within the airway proximal to the cannula. Mild tracheobronchial secretions. No thyroid nodule or lymphadenopathy. The heart is normal in size without pericardial effusion. No thoracic aortic aneurysm. Unremarkable pulmonary artery. Marked atrophy of the musculature redemonstrated. Small left and trace right pleural effusions. Dependent bibasilar consolidation. No pneumothorax. Mild patchy groundglass opacities throughout the right lung are new from prior. Unremarkable soft tissues. No acute fracture identified. Mild thoracolumbar compression deformities are again noted. CT ABDOMEN/PELVIS: No pneumatosis or pneumoperitoneum. Unremarkable spleen, gallbladder, and adrenal glands. Hepatic steatosis with mild right hemidiaphragmatic elevation. Patency of the hepatic and portal veins. The splenic vein is attenuated however is patent. There is persistent interstitial and peripancreatic inflammation which appears mildly worsened with increased amount of abdominal ascites. Peripancreatic fluid collections appear to be generally stable, with the largest measuring 3.8 cm adjacent to the pancreatic tail. Tiny fluid collections are again noted extending along the stomach and transverse colon. Embolization coils are noted adjacent to the distal stomach and pancreatic head. Gastrojejunostomy tube is in place. Persistent gastric wall thickening. 4 mm nonobstructing calculus of the superior pole left kidney. No ureteral calculi or hydronephrosis identified. Layering hyperdensity within the urinary bladder may represent stone fragments. Air-fluid level within the urinary bladder with diffuse wall thickening. Aorta and IVC appear unchanged. Periportal and precaval lymphadenopathy redemonstrated. There is marked diffuse muscle atrophy. No bowel obstruction or bowel wall thickening. Rectal catheter is in place. Normal appendix. No acute fracture. Demineralized appearance of the bones. IMPRESSION: 1. Small left and trace right pleural effusions with persistent bibasilar consolidation. 2. Progressively worsened acute pancreatitis with mildly increased amount of abdominal ascites. Numerous peripancreatic fluid collections appear to be generally stable from the exam obtained 6 days earlier. Sterility cannot be determined by imaging alone. 3. 4 mm left renal calculus. No ureteral calculi or hydronephrosis. 4. No bowel obstruction or bowel wall thickening. 5. Attenuated splenic vein without occlusion is similar to prior. 6. Upper abdominal lymphadenopathy is likely reactive. 7. Additional findings as above. ACT 112: Negative or not required by law. Dictated: 08/11/2022 6:09 PM Transcribed: 08/11/2022 6:37 PM [facility] [id number] [email or web address] Electronically signed by: James Brody M.D. 08/11/2022 6:43 PM Venous Doppler Study 08/11/22 16:24 BILATERAL LOWER EXTREMITY VENOUS DOPPLER HISTORY: Acute pain and swelling of the lower legs r/o dvt COMPARISON STUDY: None. FINDINGS: There is normal compressibility, flow, and augmentation within the bilateral lower extremity deep venous systems. The common femoral and greater saphenous veins are not visualized secondary to overlying bandages. IMPRESSION: No DVT within the right or left lower extremity. ACT 112: Negative or not required by law. Electronically signed by: James Brody M.D. 08/11/2022 7:45 PM Medications Administered Current Inpatient Medications Albuterol (Albuterol 0.083% Nebu Soln 3 Ml Vial) 2.5 mg NEB Q6R PRN; Protocol PRN Reason: cough wheeze Stop: 09/05/22 00:03 Last Admin: 08/06/22 08:05 Dose: 2.5 mg Artificial Tears (Artificial Tears) 1 drops OP UD PRN PRN Reason: Dry Eye(S) Stop: 09/05/22 00:36 Last Admin: 08/10/22 18:35 Dose: 1 drops Artificial Tears (Artificial Tears) 1 drops OP QID MYNOR Stop: 09/05/22 08:59 Last Admin: 08/14/22 09:06 Dose: Not Given Atropine Sulfate (Atropine Sulfate 1% Op Soln 5 Ml Btl) 1 drops SL QID PRN PRN Reason: increased secretions Stop: 09/05/22 00:05 Calamine/Phenol (Menthol-Zinc Oxide 360 Appln/120 Gm Tube) 1 appln EXT DAILY PRN PRN Reason: SKIN IRRITATION Stop: 09/10/22 19:14 Last Admin: 08/13/22 20:44 Dose: 1 appln Dextrose (Dextrose 50% 50 Ml Syringe) 25 - 50 ml IV UD PRN; Protocol PRN Reason: Hypoglycemia Protocol Stop: 09/06/22 10:59 Enoxaparin Sodium (Enoxaparin Inj 40 Mg/0.4 Ml Syr) 40 mg SQ QAM MYNOR Stop: 09/05/22 08:59 Last Admin: 08/10/22 08:58 Dose: 40 mg Enteral Nutritional Formula (Peptamen 1.5 Cali 1,000 Ml Bag) 1,000 ml JT UD MYNOR; Protocol Stop: 09/05/22 10:59 Last Admin: 08/13/22 23:29 Dose: 1,000 ml Famotidine (Famotidine Susp 20 Mg/2.5 Ml Udp) 20 mg NG BID PRN PRN Reason: Indigestion Stop: 09/05/22 02:29 Glucagon (Glucagon For Inj 1 Mg Vial) 1 mg IM UD PRN; Protocol PRN Reason: Hypoglycemia Protocol Stop: 09/06/22 10:59 Glucose (Glucose 40% Gel 15 Gm Tube) 15 - 30 gm PO UD PRN; Protocol PRN Reason: Hypoglycemia Protocol Stop: 09/06/22 10:59 Glucose (Glucose 10 Tab/Tube) 4 - 8 tab PO UD PRN; Protocol PRN Reason: Hypoglycemia Protocol Stop: 09/06/22 10:59 Guaifenesin (Guaifenesin Sugar Free 100 Mg/5 Ml Udc) 200 mg GT BID PRN PRN Reason: Cough Stop: 09/05/22 00:05 Acetaminophen (Ofirmev) 1,000 mg in 100 mls @ 400 mls/hr IV Q8H PRN PRN Reason: Fever Stop: 08/16/22 14:24 Last Infusion: 08/13/22 10:45 Dose: Infused Cefepime HCl 2,000 mg/ Syringe 20 mls @ 5 mls/min IV Q12H MYNOR; Protocol Stop: 08/20/22 12:29 Last Admin: 08/13/22 23:19 Dose: 5 mls/min Potassium Phosphate 30 mmol/ (Sodium Chloride) 510 mls @ 88 mls/hr IV ONE ONE Stop: 08/14/22 14:02 Last Admin: 08/14/22 09:06 Dose: 88 mls/hr Insulin Aspart (Insulin Aspart Per Unit) 0 units SC Q6 MYNOR Stop: 09/06/22 11:59 Last Admin: 08/14/22 05:27 Dose: 4 units Lansoprazole (Lansoprazole 15 Mg Soltab) 15 mg PO DAILY MYNOR Stop: 09/05/22 08:59 Last Admin: 08/14/22 09:04 Dose: 15 mg Lidocaine (Lidocaine 5% Oint 30 Gm Tube) 1 appln TOP BID PRN PRN Reason: Pain Stop: 09/05/22 00:05 Melatonin (Melatonin 3 Mg Tab) 3 - 6 mg PO HS PRN PRN Reason: Sleep Stop: 09/05/22 00:05 Midodrine (Midodrine Hcl 2.5 Mg Tab) 5 mg PO TID@0800,1200,1800 MYNOR Stop: 09/05/22 00:29 Last Admin: 08/14/22 09:03 Dose: 5 mg Miscellaneous (Carbohydrates For Hypoglycemia ) 15 - 30 gm PO UD PRN PRN Reason: Hypoglycemia Treatment Stop: 09/06/22 10:59 Multi-Ingredient Cream (Artificial Tears Op Oint 3.5 Gm Tube) 1 appln OP HS MYNOR Stop: 09/05/22 00:05 Last Admin: 08/13/22 19:43 Dose: Not Given Non-Formulary Medication (Zinc Oxide) 1 appln TOP TID [facility] Stop: 09/05/22 08:59 Last Admin: 08/14/22 09:06 Dose: 1 appln Nystatin (Nystatin Powder 15gm Btl) 1 appln EXT DAILY PRN PRN Reason: Rash Stop: 09/05/22 00:05 Polyethylene Glycol (Polyethylene (Miralax) 17 Gm Pack) 17 gm PEG DAILY PRN PRN Reason: Constipation Stop: 09/05/22 00:05 Polymyxin/Trimethoprim Sulfate (Trimethoprim/Polymyxin B) 2 drops OP Q6 [facility] Stop: 08/14/22 17:59 Last Admin: 08/14/22 05:30 Dose: 2 drops Sodium Chloride (Sodium Chlor 7% 4 Ml Neb) 4 ml NEB BIDR [facility] Stop: 09/05/22 18:59 Last Admin: 08/14/22 07:20 Dose: 4 ml Sterile Water (Tube Feeding Water Flush) 250 ml JT Q8H [facility] Stop: 09/07/22 09:59 Last Admin: 08/14/22 09:06 Dose: 250 ml Tramadol HCl (Tramadol Hcl 50 Mg Tablet) 50 mg NG Q6H PRN PRN Reason: Pain Stop: 09/05/22 00:05 Last Admin: 08/14/22 04:13 Dose: 50 mg Vitamin D (Cholecalciferol 1,000 Units 25 Mcg Tab) 1,000 units JT DAILY [facility] Stop: 09/05/22 08:59 Last Admin: 08/14/22 09:04 Dose: 1,000 units
[2022-08-14] MEDS: CEFEPIME 2,000 MG in SYRINGE 0 ML IV SCH (13:35)
--- NOTE | 2022-08-14 15:03 | Infectious Disease Progress Nt ---
Date of Service August 14, 2022 Assessment & Plan (1) Fever: (2) Pancreatitis: (3) Pseudocyst of pancreas: (4) Chronic respiratory failure: (5) Ascites: Plan Assessment: 37-year-old male, past medical history of left ventricular systolic dysfunction, chronic pancreatitis with pancreatic pseudocyst, ALS, bedbound with quadriplegia, status post trach and feeding tube, who presented to the ED on 08/05/2022 for lethargy. ID consulted for fevers. Problem List: 1. Tracheostomy dependent, Pneumonia 2. Chronic Pancreatitis with pseudocyst, fluid collections, ascites 3. Fevers 4. ALS, quadraplegia 5. R eye blepharitis Admitted with concern for infection per pt's due to lethargy, increased trach site drainage and increased SOB although no noted change in vent settings- noted to have leukocytosis, elevated lactate, relative HENRI on admission. CT scan chest with b/l consolidation and opacities suggestive of PNA vs. aspiration. 08/05 Sputum cx with MSSA and Klebsiella R only to cefazolin. 08/05 Bcxs NGTD 08/06 Fungal Bcx pending. 08/06 MRSA screen negative, pt had been on zosyn. empiric vanco stopped due to negative MRSA screen. Caspofungin added empirically 08/06 given risk for candidemia. diarrhea noted 08/08, but appeared c/w TF and no BMs 08/09 to date, R eye blepharitis noted. WBC improved, Fevers continued until 08/13, now [address]F. [address] C/A/P 08/11: 1. persistent bibasilar consolidation. 2.Progressively worsened acute pancreatitis with mildly increased amount of abdominal ascites. Numerous peripancreatic fluid collections appear to be generally stable from the exam obtained 6 days earlier. Exam notable for improved R eye blepharitis, Sacral decubitus ulcer (`Stage II), peripheral IVs only, abdominal fluid shift Discussion: Patient initially admitted for pneumonia growing sensitive species. He was narrowed to Unasyn. Clinically, his respiratory status has improved. His fever curve has worsened and despite improved leukocytosis it is starting to increase. Unclear Etiology include drug fever to Unasyn, so was discontinued and Cefepime started. GI has been consulted regarding his pancreatitis and fluid collections. Today, I reviewed his abdominal CT imaging with Radiologist, Dr. Brody. His overall pancreatitis and pancreatic fluid collections have improved. There was a slight worsening of pancreatitis from 08/05 to 08/11 but sig improved from 06/2022. In addition fluid collections are very small and do not appear drainable . He is also growing GNR in sputum which can be a colonizer. He is now day 08/12 for pneumonia treatment. I will d/w primary but would favor Cefepime for added 24 hours given I do some improvement overnight. I think we should discontinue antibiotics tomorrow and monitor off. Recommend: -CW Cefepime 2G IV TID, anticipate dc tomorrow -Not enough fluid for paracentesis, peripancreatic fluid collections too small to drain -Appreciate GI recommendations, -Follow up on GNR in sputum. I have left message for Dr. Rodrigues. Josette Baron MD [facility], [facility] Admission and Anticipated Discharge Date Admission Date: August 05, 2022 Subjective Subsequent visit was provided via telemedicine using two-way real-time interactive telecommunication between the patient and the telemedicine provider. For the duration of the visit, the provider was performing the assessment from a different facility than the patient. This includesuse of bluetooth stethoscope forauscultationperformed by the telepresenter that the telemedicine provider can hear if described in the physical exam. [employer] contact information: Please call [facility] Center [phone]. (Phone Number For Physician Use Only) After establishing a telemedicine visit, patient was: Patient was verified with two unique identifiers, Patient/authorized rep acknowledged consent and understanding and Gave permission to continue telehealth session Subsequent Time Spent w Inpatient: 35 minutes Patient uses his Ipad to communicate C/o abdominal pain, sacral pain. R eye is uncomfortable Nursing at bedside Review of System Unable to complete d/t nonverbal Physical Exam Eyes: R eye improved erythema, conjunctiva continue to be clear b/l Gastrointestinal (Abdomen): soft NT Skin: facial flushing has improved Results & Data ([facility]) Vital Signs (Past 12 Hours) Vital Signs Temp Pulse Resp BP Pulse Ox FiO2 08/14/22 14:41 97 H 14 100 30 08/14/22 11:25 105 H 14 97 30 08/14/22 07:25 102 H 14 98 30 08/14/22 06:00 37.5 C 101 H 14 98 08/14/22 05:00 37.5 C 104 H 14 96 08/14/22 04:00 37.6 C H 103 H 14 99 08/14/22 04:00 110/68 08/14/22 03:00 37.5 C 104 H 14 98 08/14/22 04:00 30 08/14/22 03:09 105 H 14 100 30 Laboratory Results Laboratory Tests 08/14/22 08/14/22 04:51 04:51 WBC 14.68 H Hgb 7.7 L Hct 23.9 L Plt Count 401 H Sodium 139 Creatinine < 0.20 L Glucose 138 H Phosphorus 1.9 L Microbiology 08/13/22 16:00 Sputum,Trach Gram Stain - Final 08/13/22 16:00 Sputum,Trach Sputum Culture - Preliminary Gram negative bacilli
[2022-08-14] MEDS: ACETAMINOPHEN 1,000 MG/100 ML VIAL IV PRN (16:40)
[2022-08-14] MEDS: ALBUTEROL 0.083% NEBU SOLN 3 ML VIAL NEB PRN (19:28)
[2022-08-14] MEDS: PEPTAMEN 1.5 CAL 1,000 ML BAG JT SCH (19:37)
[2022-08-14] MEDS: ARTIFICIAL TEARS OP OINT 3.5 GM TUBE OP SCH (20:32)
[2022-08-15] MEDS: CEFEPIME 2,000 MG in SYRINGE 0 ML IV SCH ×2 (00:12→12:03)
[2022-08-15] MEDS: INSULIN ASPART PER UNIT SC SCH ×4 (00:20→16:32)
[2022-08-15] MEDS: ACETAMINOPHEN 1,000 MG/100 ML VIAL IV PRN ×2 (00:53→19:24)
[2022-08-15] MEDS: TUBE FEEDING WATER FLUSH JT SCH ×3 (01:16→16:33)
[2022-08-15] MEDS: traMADol HCL 50 MG TABLET NG PRN ×3 (03:59→16:32)
[2022-08-15 06:22] LABS: Basophils # (auto) 0.02 K/uL (0-0.2); Basophils % (auto) 0.2 %; Eosinophils # (auto) 0.12 K/uL (0-0.50); Eosinophils % (auto) 1.1 %; Hematocrit (blood only) 22.8 % (40.1-51.0); Hemoglobin 7.4 g/dl (14.0-18.0); Immature Granulocytes # (auto) 0.14 K/uL (0.00-0.02); Immature Granulocytes % (auto) 1.2 %; Lymphocytes # (auto) 1.63 K/uL (1.2-3.4); Lymphocytes % (auto) 14.4 %; Mean Corpuscular Hemoglobin 30.2 pg (25.0-34.0); Mean Corpuscular Hgb Conc 32.5 g/dL (32.0-36.0); Mean Corpuscular Volume 93.1 fL (80.0-100.0); Mean Platelet Volume 9.4 fL (9.4-12.4); Monocytes # (auto) 0.73 K/uL (0.24-0.82); Monocytes % (auto) 6.4 %; Neutrophils # (auto) 8.68 K/uL (1.4-6.5); Neutrophils % (auto) 76.7 %; Platelet Count 422 K/uL (130-400); RDW Coefficient of Variation 15.9 % (11.5-14.5); RDW Standard Deviation 52.8 fL (36.4-46.3); Red Blood Count 2.45 M/uL (4.63-6.08); White Blood Count 11.32 K/ul (4.8-10.8)
[2022-08-15 06:59] LABS: Polychromasia 1+
[2022-08-15] MEDS: SODIUM CHLOR 7% 4 ML NEB NEB SCH ×2 (07:12→19:45)
[2022-08-15 07:43] LABS: Anion Gap 9 (3-11); Blood Urea Nitrogen 12 mg/dl (6-23); Calcium 8.5 mg/dl (8.5-10.1); Carbon Dioxide 25 mmol/L (21-32); Chloride 105 mmol/L (98-107); Creatinine Clr Calc Pharmacy 565.9 ml/min; Est GFR (African American) > 150.0 ml/min; Est GFR (Non-African American) > 150.0 ml/min; Glucose 128 mg/dl (70-99(Fasting)); Phosphorus 2.7 mg/dl (2.5-4.9); Potassium 3.5 mmol/L (3.5-5.1); Sodium 139 mmol/L (136-145)
[2022-08-15] MEDS: MIDODRINE HCL 2.5 MG TAB PO SCH ×3 (08:00→16:32)
[2022-08-15] MEDS: ARTIFICIAL TEARS OP SCH ×4 (08:52→19:26)
[2022-08-15] MEDS: NON-FORMULARY MEDICATION (Zinc Oxide 20 % Ointment) TOP SCH ×3 (08:53→19:27)
[2022-08-15 09:08] LABS: Magnesium 1.7 mg/dl (1.7-2.4)
--- NOTE | 2022-08-15 09:39 | Hospitalist Progress Note ---
Date of Service August 15, 2022 Assessment & Plan (1) Severe sepsis: Plan: Met sepsis criteria on admission with leukocytosis 27.5, febrile, lactate 3.9 and tachycardia -likely pulm source, +sputum culture Admission CT chest with possible pneumonia noted CT abd/pelvis showed resolving acute pancreatitis with decreased size of the numerous peripancreatic fluid collections suggestive of pseudocysts. sputum cx positive for staph aureus and klebsiella pna blood cx no growth Pt was started on caspofungin that was discontinued on 08/08 since cx no growth - Repeat CT abd/pelvis showed progressively worsened acute pancreatitis with mildly increased amount of abdominal ascites. Numerous peripancreatic fluid collections appear to be generally stable from the exam obtained 6 days earlier. - Repeat CT chest showed small left and trace right pleural effusions with persistent bibasilar consolidation. - WBC labile but steadily improving - Stool for C. difficile negative - was spiking fevers despite unasyn - ID consulted and thought to be drug fevers, changed to cefepime 08/13/2022 - with abdominal pain in setting of CT finding of worsening pancreatitis - repeat blood cx, urine cx and sputum cx pending - not enough ascites for paracentesis - GI consulted and no intervention - patient had fever up to 38C at 4pm 08/14/2022 - likely continue cefepime for now pending further ID recommendations about abx or duration vs further work up - Continue monitor closely (2) Pseudocyst of pancreas: Plan: - initial CT with resolving acute pancreatitis with decreasing size of pseudocysts. - Repeat CT abd/pelvis showed progressively worsened acute pancreatitis with mildly increased amount of abdominal ascites. Numerous peripancreatic fluid collections appear to be generally stable from the exam obtained 6 days earlier. - radiology consulted for paracentesis diagnostic - not enough fluid for para at this time - no likely source of infection and too small to drain either way - will continue on cefepime for now as patient continues to spike fevers (3) Abnormal LFTs: Plan: - likely related to sepsis-improved - CT A/P noted - monitor (4) Chronic respiratory failure: Plan: - wean to baseline vent settings per pulm - ventilator dependent. - at baseline at this time (5) Electrolyte imbalance: Plan: - replete prn (6) ALS (amyotrophic lateral sclerosis): Plan: - bedbound with quadriplegia, has trach on vent. - continue vent support. - continue home riluzole (7) Left ventricular systolic dysfunction: Plan: - euvolemic, off IVF. - ontinues with free water flushes Plan DVT ppx- sc lovenox Code Status: Full Code Dispo: PCU Diogenes Rodrigues MD [facility] Medicine Admission and Anticipated Discharge Date Admission Date: August 05, 2022 Subjective Patient with ALS vent dependent presented with sepsis thought to be secondary to pulmonary source. Has been on antibiotics with unasyn for 10 days, switched to cefepime 08/13/2022 due to ongoing fevers thought to be drug fevers with unaysn. Repeat CT of abdomen pelvis showed worsening pancreatitis. GI consulted with no intervention. ID following and recommended abx change to cefepime. Repeat cultures pending. Patient reports pain in back and abdomen on palpation. Denies issues with breathing, coughing, chest pain. Patient had fever 1600 08/14/2022 up to 38C. Review of Systems Review of Systems: All systems were reviewed and negative except as indicated above. Physical Exam Physical Exam: Constitutional: No acute distress HE ENT: SHERRON, [place] precious trach Respirat ory system:Decrea sed air entry bila terally, no wheeze , no rhonchi, mild crackles bilatera l lower lobes CVS: S1-S2 positive, n o murmurs or leigh ps Abdomen: Soft, nontender, nondist ended, positive alondra wel sounds x4, pos itive G-J tube Ext remities: +2 pulse s bilaterally radi quan/ dorsalis ped is, no cyanosis,+ 1 pitting edema bi lateral lower extr emity Neuro:Awake alert oriented to self and place Ps ych:Normal mood a nd affect G/U:Pos itive [place] Muscul oskeletal:Stage I -II decubitus ulce r Skin: no ra shes, warm and dry Lymphatic: no cervical or axi llary lymphadenopa thy Results & Data Results & Data ([facility]) Vital Signs (Past 12 Hours) Vital Signs Temp Pulse Resp BP Pulse Ox O2 Del Method FiO2 08/15/22 07:15 101 H 14 98 30 08/15/22 08:00 37.4 C 104 H 14 115/67 95 08/15/22 07:00 37.4 C 95 H 12 98 08/15/22 08:00 30 08/15/22 08:00 Mechanical Vent 30 10/13/22 05:00 37.1 C 97 H 12 96 08/15/22 04:00 37.3 C 101 H 12 08/15/22 04:00 121/68 08/15/22 03:00 37.3 C 92 H 12 98 08/15/22 04:00 30 08/15/22 02:25 92 H 14 99 30 08/15/22 02:00 37.2 C 96 H 12 08/15/22 02:00 117/71 08/15/22 01:00 37.4 C 99 H 14 99 08/15/22 00:00 37.5 C 100 H 14 08/15/22 00:00 125/73 08/15/22 00:00 30 08/14/22 23:32 100 H 08/14/22 23:00 37.2 C 101 H 14 98 08/14/22 22:00 37.3 C 100 H 14 100 08/14/22 23:18 102 H 14 99 30 Diagnostic Findings Laboratory Results WBC 11.32 K/ul (4.8-10.8) H 08/15/22 05:18 RBC 2.45 M/uL (4.63-6.08) L 08/15/22 05:18 Hgb 7.4 g/dl (14.0-18.0) L 08/15/22 05:18 POC Hgb 11.6 g/dl (14.0-18.0) L 08/05/22 20:50 Hct 22.8 % (40.1-51.0) L 08/15/22 05:18 POC Hct 34 % (42-52) L 08/05/22 20:50 MCV 93.1 fL (80.0-100.0) 08/15/22 05:18 MCH 30.2 pg (25.0-34.0) 08/15/22 05:18 MCHC 32.5 g/dL (32.0-36.0) 08/15/22 05:18 RDW Std Deviation 52.8 fL (36.4-46.3) H 08/15/22 05:18 RDW Coeff of Aissatou 15.9 % (11.5-14.5) H 08/15/22 05:18 Plt Count 422 K/uL (130-400) H 08/15/22 05:18 MPV 9.4 fL (9.4-12.4) 08/15/22 05:18 Immature Gran % (Auto) 1.2 % 08/15/22 05:18 Neut % (Auto) 76.7 % 08/15/22 05:18 Lymph % (Auto) 14.4 % 08/15/22 05:18 [place] % (Auto) 6.4 % 08/15/22 05:18 Eos % (Auto) 1.1 % 08/15/22 05:18 Baso % (Auto) 0.2 % 08/15/22 05:18 Neut # (Auto) 8.68 K/uL (1.4-6.5) H 08/15/22 05:18 Lymph # (Auto) 1.63 K/uL (1.2-3.4) 08/15/22 05:18 [place] # (Auto) 0.73 K/uL (0.24-0.82) 08/15/22 05:18 Eos # (Auto) 0.12 K/uL (0-0.50) 08/15/22 05:18 Baso # (Auto) 0.02 K/uL (0-0.2) 08/15/22 05:18 Immature Gran # (Auto) 0.14 K/uL (0.00-0.02) H 08/15/22 05:18 RBC Morphology Unremarkable 08/11/22 05:40 Polychromasia 1+ 08/15/22 05:18 Spherocytes Occasional 08/12/22 07:33 Peripher Smr Path Cons 08/11/22 16:42 PT 10.3 Seconds (9.0-12.0) 08/05/22 13:30 INR 1.0 (0.9-1.1) 08/05/22 13:30 APTT 27.7 Seconds (21.0-31.0) 08/05/22 13:30 PTT Ratio 1.0 08/05/22 13:30 Sample Site L Radial 08/09/22 09:20 POC pH 7.38 (7.35-7.45) 08/09/22 09:20 POC pCO2 41 mmHg (35-46) 08/09/22 09:20 POC pO2 115 mmHg (80-95) H 08/09/22 09:20 POC HCO3 24 allison/L (19-24) 08/09/22 09:20 POC Total CO2 26 mmol/L (24-31) 08/09/22 09:20 POC Base Excess -1.0 allison/L (-9-1.8) 08/09/22 09:20 ABG pH 7.65 (7.35-7.45) H* 08/05/22 15:07 ABG pCO2 23 mmHg (35-46) L 08/05/22 15:07 ABG pO2 94 mmHg (80-95) 08/05/22 15:07 ABG HCO3 25 mmol/L (19-24) H 08/05/22 15:07 POC ABG O2 Sat 98.0 % (90-95) H 08/09/22 09:20 ABG O2 Saturation 99.5 % (90-95) H 08/05/22 15:07 ABG Base Excess 5.9 mEq/L (-9-1.8) H 08/05/22 15:07 Praveen Test Pass 08/09/22 09:20 Oxygen Given 2L 08/05/22 15:07 O2 Delivery Device Ventilator 08/09/22 09:20 POC O2 Rate 14 08/09/22 09:20 POC FiO2 30 % 08/09/22 09:20 Tidal Volume 530 08/09/22 09:20 PEEP 6 08/09/22 09:20 POC Sodium 142 mmol/L (135-144) 08/05/22 20:50 Sodium 139 mmol/L (136-145) 08/15/22 05:18 POC Potassium 2.3 mmol/L (3.3-5.0) L* 08/05/22 20:50 Potassium 3.5 mmol/L (3.5-5.1) 08/15/22 05:18 Chloride 105 mmol/L (98-107) 08/15/22 05:18 Carbon Dioxide 25 mmol/L (21-32) 08/15/22 05:18 Anion Gap 9 (3-11) 08/15/22 05:18 BUN 12 mg/dl (6-23) 08/15/22 05:18 Creatinine < 0.20 mg/dl (0.6-1.4) L 08/15/22 05:18 Est Cr Clr Drug Dosing 565.9 ml/min 08/15/22 05:18 Est GFR ( Amer) > 150.0 ml/min 08/15/22 05:18 Est GFR (Non-Af Amer) > 150.0 ml/min 08/15/22 05:18 BUN/Creatinine Ratio TNP 08/15/22 05:18 Glucose 128 mg/dl (70-99(Fasting)) H 08/15/22 05:18 POC Glucose 135 mg/dl (70-99) H 08/15/22 05:19 Lactate 1.9 mmol/L (0.4-2.0) 08/05/22 17:26 Calcium 8.5 mg/dl (8.5-10.1) 08/15/22 05:18 Phosphorus 2.7 mg/dl (2.5-4.9) 08/15/22 05:18 Magnesium 1.7 mg/dl (1.7-2.4) 08/15/22 05:18 Total Bilirubin 0.3 mg/dl (0.2-1.0) 08/13/22 05:37 Direct Bilirubin 0.2 mg/dl (0-0.2) 08/05/22 13:30 AST 37 U/L (13-39) 08/13/22 05:37 ALT 59 U/L (7-52) H 08/13/22 05:37 Alkaline Phosphatase 298 U/L (34-104) H 08/13/22 05:37 Troponin I High Sens 18.3 pg/ml (0-20) D 08/05/22 13:30 Total Protein 6.3 gm/dl (6.0-8.3) 08/13/22 05:37 Albumin 2.9 gm/dl (3.4-5.0) L 08/13/22 05:37 Globulin 3.4 gm/dl (2.5-4.0) 08/13/22 05:37 Albumin/Globulin Ratio 0.9 (0.9-2) 08/13/22 05:37 Lipase 135 U/L (11-82) H 08/05/22 13:30 Procalcitonin 1.28 ng/ml (0-0.5) H 08/05/22 13:30 Urine Color Yellow 08/05/22 16:50 Urine Appearance Clear (Clear) 08/05/22 16:50 Urine pH 5.0 (4.5-7.5) 08/05/22 16:50 Ur Specific [place] 1.016 (1.000-1.030) 08/05/22 16:50 Urine Protein 1+ (Negative) H 08/05/22 16:50 Urine Glucose (UA) Negative (Negative) 08/05/22 16:50 Urine Ketones Negative (Negative) 08/05/22 16:50 Urine Blood Negative (Negative) 08/05/22 16:50 Urine Nitrite Negative (Negative) 08/05/22 16:50 Urine Bilirubin Negative (Negative) 08/05/22 16:50 Urine Urobilinogen Negative (Negative) 08/05/22 16:50 Ur Leukocyte Esterase Negative (Negative) 08/05/22 16:50 Urine WBC (Auto) 1-5 /hpf (0-5) 08/05/22 16:50 Urine RBC (Auto) 5-10 /hpf (0-4) H 08/05/22 16:50 U Hyaline Cast (Auto) 5-10 /lpf (0-5) H 08/05/22 16:50 U Epithel Cells (Auto) 5-10 /lpf (0-5) H 08/05/22 16:50 Urine Bacteria (Auto) Negative (Negative) 08/05/22 16:50 Nasal Screen MRSA (PCR) Negative (Negative) 08/06/22 04:58 Stool Occult Bld Scrn Negative (Negative) 08/11/22 13:15 Stl C. diff Tox B Gene Negative Cdiff Gene (Neg) 08/11/22 03:00 Vancomycin Trough 36.9 mcg/ml (10-20) H* 08/07/22 03:54 SARS-CoV-2, RNA, NAAT NEGATIVE (NEGATIVE) 08/05/22 17:07 Blood Type O Positive 08/11/22 18:17 Antibody Screen NEGATIVE 08/11/22 18:17 Crossmatch See Detail 08/11/22 18:17 Impressions Chest X-Ray 08/11/22 09:55 XR chest 1V portable HISTORY: 37 years-old Male f/u acute shortness of breath COMPARISON: Chest radiograph 08/08/2022, chest CT 08/05/20002009 TECHNIQUE: Portable AP view of the chest FINDINGS: Cardiac silhouette is enlarged. Tracheostomy cannula overlies the midline at the level the clavicular heads. No pneumothorax. Small left and possible trace right pleural effusions. Persistent bibasilar opacities appear stable. Bones appear grossly intact. IMPRESSION: 1. Cardiomegaly without pulmonary edema. 2. Small left and possible trace right pleural effusions with persistent bibasilar opacities. ACT 112: Negative or not required by law. The above report was generated using voice recognition software. It may contain grammatical, syntax or spelling errors. Electronically signed by: James Brody M.D. 08/11/2022 10:25 AM Abdomen/Pelvis CT 08/11/22 16:[address] WITH CONTRAST; CT abdomen and pelvis with IV contrast only CT DOSE: 1682.58 mGy.cm HISTORY: Follow up whole body scan in a patient with fever fever unknown origin TECHNIQUE: Multiaxial CT images of the chest, abdomen and pelvis were performed following the IV administration of 93 cc of Optiray. A dose lowering technique was utilized adhering to the principles of ALARA. COMPARISON: CT chest, abdomen and pelvis 08/05/2022 FINDINGS: CT CHEST: Tracheostomy cannula distal tip terminates at the level of the clavicular heads. Fluid within the airway proximal to the cannula. Mild tracheobronchial secretions. No thyroid nodule or lymphadenopathy. The heart is normal in size without pericardial effusion. No thoracic aortic aneurysm. Unremarkable pulmonary artery. Marked atrophy of the musculature redemonstrated. Small left and trace right pleural effusions. Dependent bibasilar consolidation. No pneumothorax. Mild patchy groundglass opacities throughout the right lung are new from prior. Unremarkable soft tissues. No acute fracture identified. Mild thoracolumbar compression deformities are again noted. CT ABDOMEN/PELVIS: No pneumatosis or pneumoperitoneum. Unremarkable spleen, gallbladder, and adrenal glands. Hepatic steatosis with mild right hemidiaphragmatic elevation. Patency of the hepatic and portal veins. The splenic vein is attenuated however is patent. There is persistent interstitial and peripancreatic inflammation which appears mildly worsened with increased amount of abdominal ascites. Peripancreatic fluid collections appear to be generally stable, with the largest measuring 3.8 cm adjacent to the pancreatic tail. Tiny fluid collections are again noted extending along the stomach and transverse colon. Embolization coils are noted adjacent to the distal stomach and pancreatic head. Gastrojejunostomy tube is in place. Persistent gastric wall thickening. 4 mm nonobstructing calculus of the superior pole left kidney. No ureteral calculi or hydronephrosis identified. Layering hyperdensity within the urinary bladder may represent stone fragments. Air-fluid level within the urinary bladder with diffuse wall thickening. Aorta and IVC appear unchanged. Periportal and precaval lymphadenopathy redemonstrated. There is marked diffuse muscle atrophy. No bowel obstruction or bowel wall thickening. Rectal catheter is in place. Normal appendix. No acute fracture. Demineralized appearance of the bones. IMPRESSION: 1. Small left and trace right pleural effusions with persistent bibasilar consol idation. 2. Progressively worsened acute pancreatitis with mildly increased amount of abdominal ascites. Numerous peripancreatic fluid collections appear to be generally stable from the exam obtained 6 days earlier. Sterility cannot be determined by imaging alone. 3. 4 mm left renal calculus. No ureteral calculi or hydronephrosis. 4. No bowel obstruction or bowel wall thickening. 5. Attenuated splenic vein without occlusion is similar to prior. 6. Upper abdominal lymphadenopathy is likely reactive. 7. Additional findings as above. ACT 112: Negative or not required by law. Dictated: 08/11/2022 6:09 PM Transcribed: 08/11/2022 6:37 PM [facility] [id number] [email or web address] Electronically signed by: James Brody M.D. 08/11/2022 6:[address] 08/11/22 16:[address] WITH CONTRAST; CT abdomen and pelvis with IV contrast only CT DOSE: 1682.58 mGy.cm HISTORY: Follow up whole body scan in a patient with fever fever unknown origin TECHNIQUE: Multiaxial CT images of the chest, abdomen and pelvis were performed following the IV administration of 93 cc of Optiray. A dose lowering technique was utilized adhering to the principles of ALARA. COMPARISON: CT chest, abdomen and pelvis 08/05/2022 FINDINGS: CT CHEST: Tracheostomy cannula distal tip terminates at the level of the clavicular heads. Fluid within the airway proximal to the cannula. Mild tracheobronchial secretions. No thyroid nodule or lymphadenopathy. The heart is normal in size without pericardial effusion. No thoracic aortic aneurysm. Unremarkable pulmonary artery. Marked atrophy of the musculature redemonstrated. Small left and trace right pleural effusions. Dependent bibasilar consolidation. No pneumothorax. Mild patchy groundglass opacities throughout the right lung are new from prior. Unremarkable soft tissues. No acute fracture identified. Mild thoracolumbar compression deformities are again noted. CT ABDOMEN/PELVIS: No pneumatosis or pneumoperitoneum. Unremarkable spleen, gallbladder, and adrenal glands. Hepatic steatosis with mild right hemidiaphragmatic elevation. Patency of the hepatic and portal veins. The splenic vein is attenuated however is patent. There is persistent interstitial and peripancreatic inflammation which appears mildly worsened with increased amount of abdominal ascites. Peripancreatic fluid collections appear to be generally stable, with the largest measuring 3.8 cm adjacent to the pancreatic tail. Tiny fluid collections are again noted extending along the stomach and transverse colon. Embolization coils are noted adjacent to the distal stomach and pancreatic head. Gastrojejunostomy tube is in place. Persistent gastric wall thickening. 4 mm nonobstructing calculus of the superior pole left kidney. No ureteral calculi or hydronephrosis identified. Layering hyperdensity within the urinary bladder may represent stone fragments. Air-fluid level within the urinary bladder with diffuse wall thickening. Aorta and IVC appear unchanged. Periportal and precaval lymphadenopathy redemonstrated. There is marked diffuse muscle atrophy. No bowel obstruction or bowel wall thickening. Rectal catheter is in place. Normal appendix. No acute fracture. Demineralized appearance of the bones. IMPRESSION: 1. Small left and trace right pleural effusions with persistent bibasilar consolidation. 2. Progressively worsened acute pancreatitis with mildly increased amount of abdominal ascites. Numerous peripancreatic fluid collections appear to be generally stable from the exam obtained 6 days earlier. Sterility cannot be determined by imaging alone. 3. 4 mm left renal calculus. No ureteral calculi or hydronephrosis. 4. No bowel obstruction or bowel wall thickening. 5. Attenuated splenic vein without occlusion is similar to prior. 6. Upper abdominal lymphadenopathy is likely reactive. 7. Additional findings as above. ACT 112: Negative or not required by law. Dictated: 08/11/2022 6:09 PM Transcribed: 08/11/2022 6:37 PM [facility] [id number] [email or web address] Electronically signed by: James Brody M.D. 08/11/2022 6:43 PM Venous Doppler Study 08/11/22 16:24 BILATERAL LOWER EXTREMITY VENOUS DOPPLER HISTORY: Acute pain and swelling of the lower legs r/o dvt COMPARISON STUDY: None. FINDINGS: There is normal compressibility, flow, and augmentation within the bilateral lower extremity deep venous systems. The common femoral and greater saphenous veins are not visualized secondary to overlying bandages. IMPRESSION: No DVT within the right or left lower extremity. ACT 112: Negative or not required by law. Electronically signed by: James Brody M.D. 08/11/2022 7:45 PM Medications Administered Current Inpatient Medications Albuterol (Albuterol 0.083% Nebu Soln 3 Ml Vial) 2.5 mg NEB Q6R PRN; Protocol PRN Reason: cough wheeze Stop: 09/05/22 00:03 Last Admin: 08/14/22 19:28 Dose: 2.5 mg Artificial Tears (Artificial Tears) 1 drops OP UD PRN PRN Reason: Dry Eye(S) Stop: 09/05/22 00:36 Last Admin: 08/10/22 18:35 Dose: 1 drops Artificial Tears (Artificial Tears) 1 drops OP QID MYNOR Stop: 09/05/22 08:59 Last Admin: 08/15/22 08:52 Dose: Not Given Atropine Sulfate (Atropine Sulfate 1% Op Soln 5 Ml Btl) 1 drops SL QID PRN PRN Reason: increased secretions Stop: 09/05/22 00:05 Calamine/Phenol (Menthol-Zinc Oxide 360 Appln/120 Gm Tube) 1 appln EXT DAILY PRN PRN Reason: SKIN IRRITATION Stop: 09/10/22 19:14 Last Admin: 08/13/22 20:44 Dose: 1 appln Dextrose (Dextrose 50% 50 Ml Syringe) 25 - 50 ml IV UD PRN; Protocol PRN Reason: Hypoglycemia Protocol Stop: 09/06/22 10:59 Enoxaparin Sodium (Enoxaparin Inj 40 Mg/0.4 Ml Syr) 40 mg SQ QAM MYNOR Stop: 09/05/22 08:59 Last Admin: 08/10/22 08:58 Dose: 40 mg Enteral Nutritional Formula (Peptamen 1.5 Cali 1,000 Ml Bag) 1,000 ml JT UD MYNOR; Protocol Stop: 09/05/22 10:59 Last Admin: 08/14/22 19:37 Dose: 1,000 ml Famotidine (Famotidine Susp 20 Mg/2.5 Ml Udp) 20 mg NG BID PRN PRN Reason: Indigestion Stop: 09/05/22 02:29 Glucagon (Glucagon For Inj 1 Mg Vial) 1 mg IM UD PRN; Protocol PRN Reason: Hypoglycemia Protocol Stop: 09/06/22 10:59 Glucose (Glucose 40% Gel 15 Gm Tube) 15 - 30 gm PO UD PRN; Protocol PRN Reason: Hypoglycemia Protocol Stop: 09/06/22 10:59 Glucose (Glucose 10 Tab/Tube) 4 - 8 tab PO UD PRN; Protocol PRN Reason: Hypoglycemia Protocol Stop: 09/06/22 10:59 Guaifenesin (Guaifenesin Sugar Free 100 Mg/5 Ml Udc) 200 mg GT BID PRN PRN Reason: Cough Stop: 09/05/22 00:05 Acetaminophen (Ofirmev) 1,000 mg in 100 mls @ 400 mls/hr IV Q8H PRN PRN Reason: Fever Stop: 08/16/22 14:24 Last Infusion: 08/15/22 01:15 Dose: Infused Cefepime HCl 2,000 mg/ Syringe 20 mls @ 5 mls/min IV Q12H MYNOR; Protocol Stop: 08/20/22 12:29 Last Admin: 08/15/22 00:12 Dose: 5 mls/min Insulin Aspart (Insulin Aspart Per Unit) 0 units SC Q6 MYNOR Stop: 09/06/22 11:59 Last Admin: 08/15/22 05:23 Dose: 4 units Lansoprazole (Lansoprazole 15 Mg Soltab) 15 mg PO DAILY MYNOR Stop: 09/05/22 08:59 Last Admin: 08/14/22 09:04 Dose: 15 mg Lidocaine (Lidocaine 5% Oint 30 Gm Tube) 1 appln TOP BID PRN PRN Reason: Pain Stop: 09/05/22 00:05 Melatonin (Melatonin 3 Mg Tab) 3 - 6 mg PO HS PRN PRN Reason: Sleep Stop: 09/05/22 00:05 Midodrine (Midodrine Hcl 2.5 Mg Tab) 5 mg PO TID@0800,1200,1800 MYNOR Stop: 09/05/22 00:29 Last Admin: 08/14/22 18:02 Dose: 5 mg Miscellaneous (Carbohydrates For Hypoglycemia ) 15 - 30 gm PO UD PRN PRN Reason: Hypoglycemia Treatment Stop: 09/06/22 10:59 Multi-Ingredient Cream (Artificial Tears Op Oint 3.5 Gm Tube) 1 appln OP HS [facility] Stop: 09/05/22 00:05 Last Admin: 08/14/22 20:32 Dose: 1 appln Non-Formulary Medication (Zinc Oxide) 1 appln TOP TID [facility] Stop: 09/05/22 08:59 Last Admin: 08/15/22 08:53 Dose: Not Given Nystatin (Nystatin Powder 15gm Btl) 1 appln EXT DAILY PRN PRN Reason: Rash Stop: 09/05/22 00:05 Polyethylene Glycol (Polyethylene (Miralax) 17 Gm Pack) 17 gm PEG DAILY PRN PRN Reason: Constipation Stop: 09/05/22 00:05 Sodium Chloride (Sodium Chlor 7% 4 Ml Neb) 4 ml NEB BIDR [facility] Stop: 09/05/22 18:59 Last Admin: 08/15/22 07:12 Dose: 4 ml Sterile Water (Tube Feeding Water Flush) 250 ml JT Q8H [facility] Stop: 09/07/22 09:59 Last Admin: 08/15/22 01:16 Dose: 250 ml Tramadol HCl (Tramadol Hcl 50 Mg Tablet) 50 mg NG Q6H PRN PRN Reason: Pain Stop: 09/05/22 00:05 Last Admin: 08/15/22 03:59 Dose: 50 mg Vitamin D (Cholecalciferol 1,000 Units 25 Mcg Tab) 1,000 units JT DAILY [facility] Stop: 09/05/22 08:59 Last Admin: 08/14/22 09:04 Dose: 1,000 units
[2022-08-15] MEDS: CHOLECALCIFEROL 1,000 UNITS 25 MCG TAB JT SCH (10:19)
[2022-08-15] MEDS: LANSOPRAZOLE 15 MG SOLTAB PO SCH (10:19)
--- NOTE | 2022-08-15 11:06 | Pulmonology Progress Note ---
Date of Service August 15, 2022 Assessment & Plan (1) Ventilator dependence: (2) ALS (amyotrophic lateral sclerosis): Plan Impression: 37-year-old male vent dependent due to ALS admitted with sepsis found to have sensitive Klebsiella growing from tracheal aspirate as well as methicillin sensitive staph. Antibiotics are being dictated by infectious disease. He initially had some issues with his trach last night. There was no leak however the patient felt that he needed to be upsized. This morning the symptoms have resolved. Recommendations: 1. Ventilator dependence due to ALS: Continue current vent settings. The patient appears to be oxygenating and ventilating well. 2. Acute purulent tracheitis: Klebsiella and methicillin sensitive staph aureus. Antibiotics under the direction of ID 3. No need to change trach. Will continue to follow for respiratory/ventilator issues. Patient is stable. We will see every other day going forward. Please call if urgent questions Admission and Anticipated Discharge Date Admission Date: August 05, 2022 Subjective Seen and examined. EMR reviewed. Discussed with bedside critical care nurse. The patient feels that his breathing is stable. He is not experiencing any leak through his trach. Review of Systems Review of Systems: Unobtainable due to endotracheal tube Physical Exam Physical Exam: Constitutional: No acute distress HEENT: trach site clean dry and intact. No leak Respiratory system: Decreased breath sounds bilaterally without wheezing. No crackles CVS: S1-S2 positive, no murmurs or gallops Abdomen: Soft, nontender, nondistended, positive bowel sounds x4, positive G-J tube Extremities: +2 pulses bilaterally radialis/ dorsalis pedis, no cyanosis, +1 pitting edema bilateral lower extremity Neuro: Awake, communicates via eye movements. G/U: Positive Varela Musculoskeletal: Stage I-II decubitus ulcer Results & Data Results & Data ([facility]) Vital Signs (Past 12 Hours) Vital Signs Temp Pulse Resp BP Pulse Ox O2 Del Method FiO2 08/15/22 07:15 101 H 14 98 30 08/15/22 08:00 37.4 C 104 H 14 115/67 95 08/15/22 07:00 37.4 C 95 H 12 98 08/15/22 08:00 30 08/15/22 08:00 Mechanical Vent 30 08/15/22 05:00 37.1 C 97 H 12 96 08/15/22 04:00 37.3 C 101 H 12 08/15/22 04:00 121/68 08/15/22 03:00 37.3 C 92 H 12 98 08/15/22 04:00 30 08/15/22 02:25 92 H 14 99 30 08/15/22 02:00 37.2 C 96 H 12 08/15/22 02:00 117/71 08/15/22 01:00 37.4 C 99 H 14 99 08/15/22 00:00 37.5 C 100 H 14 08/15/22 00:00 125/73 08/15/22 00:00 30 08/14/22 23:32 100 H 08/14/22 23:18 102 H 14 99 30 Laboratory Results 08/15/22 05:18 08/15/22 05:18 PG Care Time/CCT Total # of Minutes Spent Total Time Spent with Patient: Total time spent is greater than 50% in coordination of care (as documented) at patient's floor/unit and/or counseling patient: Coding Level of Care Code 17416 Subseq Hosp Care Lvl 2 Diagnoses Ventilator dependence Z99.11 ALS (amyotrophic lateral sclerosis) G12.21
--- NOTE | 2022-08-15 13:55 | Infectious Disease Progress Nt ---
Date of Service August 15, 2022 24 hours: Patient had temp 38.4 yesterday ~4pm VSS otherwise, vent setting unchanged WBC continues to improve 08/13 sputum cx Serratia (no resistance) Assessment & Plan (1) Fever: (2) Pancreatitis: (3) Pseudocyst of pancreas: (4) Chronic respiratory failure: (5) Ascites: Plan Assessment: 37-year-old male, past medical history of left ventricular systolic dysfunction, chronic pancreatitis with pancreatic pseudocyst, ALS, bedbound with quadriplegia, status post trach and feeding tube, who presented to the ED on 08/05/2022 for lethargy. ID consulted for fevers. Problem List: 1. Tracheostomy dependent, Pneumonia 2. Chronic Pancreatitis with pseudocyst, fluid collections, ascites 3. Fevers 4. ALS, quadraplegia 5. R eye blepharitis Admitted with concern for infection per pt's due to lethargy, increased trach site drainage and increased SOB although no noted change in vent settings- noted to have leukocytosis, elevated lactate, relative HENRI on admission. CT scan chest with b/l consolidation and opacities suggestive of PNA vs. aspiration. 08/05 Sputum cx with MSSA and Klebsiella R only to cefazolin. 08/05 Bcxs NGTD 08/06 Fungal Bcx pending. 08/06 MRSA screen negative, pt had been on zosyn. empiric vanco stopped due to negative MRSA screen. Caspofungin added empirically 08/06 given risk for candidemia. diarrhea noted 08/08, but appeared c/w TF and no BMs 08/09 to date, R eye blepharitis noted. WBC improved, Fevers continued until 08/13, now [address] C/A/P 08/11: 1. persistent bibasilar consolidation. 2.Progressively worsened acute pancreatitis with mildly increased amount of abdominal ascites. Numerous peripancreatic fluid collections appear to be generally stable from the exam obtained 6 days earlier. Exam notable for improved R eye blepharitis, Sacral decubitus ulcer (`Stage II), peripheral IVs only, slight abdominal fluid shift Discussion: Patient initially admitted for pneumonia growing sensitive species. He was narrowed to Unasyn. Clinically, his respiratory status has improved. His fever curve has worsened and despite improved leukocytosis. Unclear Etiology include drug fever to Unasyn, so was discontinued and Cefepime started. GI has been consulted regarding his pancreatitis and fluid collections. Today, I reviewed his abdominal CT imaging with Radiologist, Dr. Brody. His overall pancreatitis and pancreatic fluid collections have improved. There was a slight worsening of pancreatitis from 08/05 to 08/11 but sig improved from 06/2022. In addition fluid collections are very small and do not appear drainable . He is also growing Serratia (no resistance) in sputum which can be a colonizer. He is now day 11 for pneumonia treatment. In light of his fever and new Serratia growth would favor an added 5 day course of therapy from 08/13-08/17, We can likely narrow to Ceftriaxone at this time. as it is unclear if he had a reaction to Unasyn at this time. I will speak to pharmacy regarding this change. Recommend: -Narrow to Ceftriaxone given Serratia growth, anticipate 5 day course therapy through 08/17, then dc and monitor off abx. -Not enough fluid for paracentesis, peripancreatic fluid collections too small to drain Josette Baron MD [facility], [facility] Connect 30min spent charting on patient. Admission and Anticipated Discharge Date Admission Date: August 05, 2022 Subjective This patient recommendation is based on a telemedicine consult request which was completed asynchronously through chart review and information provided by the primary physician. The patient was not seen or examined today. The evaluation is consultative in nature and all patient care and treatment decisions can either be accepted or rejected by the patient's primary hospital-based treating physician using their own independent medical judgment for their patient. patient not examined Review of System N/A econsult Physical Exam Physical Exam: N/A econsult Results & Data ([facility]) Vital Signs (Past 12 Hours) Vital Signs Temp Pulse Resp BP Pulse Ox O2 Del Method FiO2 08/15/22 11:35 103 H 14 97 30 08/15/22 11:00 37.7 C H 108 H 14 98 08/15/22 10:00 37.7 C H 100 H 14 100 08/15/22 09:00 37.7 C H 100 H 14 97 08/15/22 12:00 37.7 C H 103 H 16 129/74 97 Mechanical Vent 30 08/15/22 11:59 30 08/15/22 07:15 101 H 14 98 30 08/15/22 08:00 37.4 C 104 H 14 115/67 95 08/15/22 07:00 37.4 C 95 H 12 98 08/15/22 08:00 30 08/15/22 08:00 Mechanical Vent 30 08/15/22 05:00 37.1 C 97 H 12 96 08/15/22 04:00 37.3 C 101 H 12 08/15/22 04:00 121/68 08/15/22 03:00 37.3 C 92 H 12 98 08/15/22 04:00 30 08/15/22 02:25 92 H 14 99 30 08/15/22 02:00 37.2 C 96 H 12 08/15/22 02:00 117/71 Laboratory Results Microbiology 08/13/22 16:00 Sputum,Trach Gram Stain - Final 08/13/22 16:00 Sputum,Trach Sputum Culture - Final Serratia marcescens 08/13/22 16:00 Sputum,Trach Gram Stain - Final 08/13/22 16:00 Sputum,Trach Sputum Culture - Preliminary Gram negative bacilli Laboratory Tests 08/15/22 08/15/22 05:18 05:18 WBC 11.32 H Hct 22.8 L Neut # (Auto) 8.68 H Glucose 128 H Gram Stain Final 08/13/22-6371 Gram Stain Result Few Epithelial Cells Many WBCs Seen Rare Gram Positive Cocci Sputum Culture Final 08/15/22-5870 Organism 1 Serratia marcescens Quantity Moderate Sens Sensitivities to Follow Normal Odalis Scant Normal Odalis S marcesc RX M.I.C. --- --------- Cefepime S <=2 Ceftriaxone S <=1 Ciprofloxacin S <=0.25 Ertapenem S <=0.5 Gentamicin S <=4 Levofloxacin S <=0.5 Meropenem S <=1 Tobramycin S <=4 Trimeth/Sulfa S <=2/38 Pip/Tazo S <=16
[2022-08-15] MEDS ORDERED: POTASSIUM CHLORIDE PWD 20 MEQ PACK PO ONE (15:15)
[2022-08-15] MEDS: cefTRIAXone SODIUM 2,000 MG in DEXTROSE 5% 50 ML IV SCH (16:26)
[2022-08-15] MEDS: MAGNESIUM OXIDE 400 MG TAB PO SCH (16:28)
[2022-08-15] MEDS: PEPTAMEN 1.5 CAL 1,000 ML BAG JT SCH (16:29)
[2022-08-15] MEDS: ARTIFICIAL TEARS OP OINT 3.5 GM TUBE OP SCH (19:26)
[2022-08-15] MEDS: ALBUTEROL 0.083% NEBU SOLN 3 ML VIAL NEB PRN (19:45)
[2022-08-16] MEDS: INSULIN ASPART PER UNIT SC SCH ×4 (00:13→17:02)
[2022-08-16] MEDS: TUBE FEEDING WATER FLUSH JT SCH ×3 (01:19→17:03)
[2022-08-16] MEDS: MELATONIN 3 MG TAB PO PRN ×2 (01:19→21:19)
[2022-08-16] MEDS: traMADol HCL 50 MG TABLET NG PRN ×4 (04:36→21:20)
[2022-08-16 06:15] LABS: Basophils # (auto) 0.02 K/uL (0-0.2); Basophils % (auto) 0.2 %; Eosinophils % (auto) 0.8 %; Hematocrit (blood only) 23.6 % (40.1-51.0); Hemoglobin 7.4 g/dl (14.0-18.0); Immature Granulocytes # (auto) 0.11 K/uL (0.00-0.02); Immature Granulocytes % (auto) 0.9 %; Lymphocytes # (auto) 1.49 K/uL (1.2-3.4); Lymphocytes % (auto) 12.3 %; Mean Corpuscular Hemoglobin 29.5 pg (25.0-34.0); Mean Corpuscular Hgb Conc 31.4 g/dL (32.0-36.0); Mean Platelet Volume 9.2 fL (9.4-12.4); Monocytes % (auto) 5.8 %; Neutrophils # (auto) 9.65 K/uL (1.4-6.5); Platelet Count 463 K/uL (130-400); RDW Coefficient of Variation 16.1 % (11.5-14.5); RDW Standard Deviation 54.3 fL (36.4-46.3); Red Blood Count 2.51 M/uL (4.63-6.08); White Blood Count 12.07 K/ul (4.8-10.8)
[2022-08-16] MEDS: ACETAMINOPHEN 1,000 MG/100 ML VIAL IV PRN (06:34)
[2022-08-16 06:39] LABS: Polychromasia 1+
[2022-08-16] MEDS: SODIUM CHLOR 7% 4 ML NEB NEB SCH ×2 (07:45→19:31)
--- NOTE | 2022-08-16 10:29 | Infectious Disease Progress Nt ---
Date of Service August 16, 2022 Assessment & Plan (1) Fever: (2) Pancreatitis: (3) Pseudocyst of pancreas: (4) Chronic respiratory failure: (5) Ascites: Plan Assessment: 37-year-old male, past medical history of left ventricular systolic dysfunction, chronic pancreatitis with pancreatic pseudocyst, ALS, bedbound with quadriplegia, status post trach and feeding tube, who presented to the ED on 08/05/2022 for lethargy. ID consulted for fevers. Problem List: 1. Tracheostomy dependent, Pneumonia 2. Chronic Pancreatitis with pseudocyst, fluid collections, ascites 3. Fevers 4. ALS, quadraplegia 5. R eye blepharitis Admitted with concern for infection per pt's due to lethargy, increased trach site drainage and increased SOB although no noted change in vent settings- noted to have leukocytosis, elevated lactate, relative HENRI on admission. CT scan chest with b/l consolidation and opacities suggestive of PNA vs. aspiration. 08/05 Sputum cx with MSSA and Klebsiella R only to cefazolin. 08/05 Bcxs NGTD 08/06 Fungal Bcx pending. 08/06 MRSA screen negative, pt had been on zosyn. empiric vanco stopped due to negative MRSA screen. Caspofungin added empirically 08/06 given risk for candidemia. diarrhea noted 08/08, but appeared c/w TF and no BMs 08/09 to date, R eye blepharitis noted. WBC improved, Fevers continued until 08/13, now [address] C/A/P 08/11: 1. persistent bibasilar consolidation. 2.Progressively worsened acute pancreatitis with mildly increased amount of abdominal ascites. Numerous peripancreatic fluid collections appear to be generally stable from the exam obtained 6 days earlier. Exam notable for improved R eye blepharitis, Sacral decubitus ulcer (`Stage II), peripheral IVs only, slight abdominal fluid shift Discussion: Patient initially admitted for pneumonia growing sensitive species. He was narro wed to Unasyn. Clinically, his respiratory status has improved. His fever curve has worsened and despite improved leukocytosis. Unclear Etiology include drug fever to Unasyn, so was discontinued and Cefepime started. GI has been consulted regarding his pancreatitis and fluid collections. On 08/[address] imaging with Radiologist, Dr. Brody. His overall pancreatitis and pancreatic fluid collections have improved. There was a slight worsening of pancreatitis from 08/05 to 08/11 but sig improved from 06/2022. In addition fluid collections are very small and do not appear drainable. He is also growing Serratia (no resistance) in sputum which can be a colonizer. He is now day 12 for pneumonia treatment. In light of his fever and new Serratia growth would favor an added 5 day course of therapy from 08/13-08/17,He has been narrowed to Ceftriaxone at this time. as it is unclear if he had a reaction to Unasyn at this time. Recommend: -CW Ceftriaxone anticipate 5 day course therapy through 08/17, then dc and monitor off abx. -Not enough fluid for paracentesis, peripancreatic fluid collections too small to drain ID is available by page this weekend. Dr. Sharif De Leon to start service on 08/19/22 Josette Baron MD [facility], [facility] Connect 30min spent charting on patient. Admission and Anticipated Discharge Date Admission Date: August 05, 2022 Subjective This patient recommendation is based on a telemedicine consult request which was completed asynchronously through chart review and information provided by the primary physician. The patient was not seen or examined today. The evaluation is consultative in nature and all patient care and treatment decisions can either be accepted or rejected by the patient's primary hospital-based treating physician using their own independent medical judgment for their patient. 24 hours: GARCIA, afebrile overnight Changed from Cefepime to Ceftriaxone No new Micro Results & Data ([facility]) Vital Signs (Past 12 Hours) Vital Signs Temp Pulse Resp BP Pulse Ox O2 Del Method FiO2 08/16/22 10:00 37.6 C H 94 H 14 97 08/16/22 10:00 106/65 08/16/22 08:00 37.5 C 104 H 12 97 08/16/22 08:00 105/63 08/16/22 07:00 37.4 C 96 H 12 97 08/16/22 08:00 30 08/16/22 08:00 Mechanical Vent 30 08/16/22 07:55 14 30 08/16/22 06:00 37.6 C H 98 H 14 94/57 L 98 Mechanical Vent 30 08/16/22 04:00 30 08/16/22 04:00 37.8 C H 96 H 14 93/60 L 98 Mechanical Vent 30 08/16/22 02:00 37.5 C 94 H 14 99/66 L 100 Mechanical Vent 30 08/16/22 00:00 37.4 C 101 H 14 105/64 99 Mechanical Vent 30 08/16/22 00:00 105/64 08/16/22 00:00 30 08/16/22 02:25 100 H 14 97 30 08/15/22 22:54 105 H 15 98 30 Laboratory Results Microbiology 08/13/22 16:00 Sputum,Trach Gram Stain - Final 08/13/22 16:00 Sputum,Trach Sputum Culture - Final Serratia marcescens 08/13/22 16:00 Sputum,Trach Gram Stain - Final 08/13/22 16:00 Sputum,Trach Sputum Culture - Preliminary Gram negative bacilli Laboratory Tests 08/16/22 05:34 WBC 12.07 H Hgb 7.4 L
--- NOTE | 2022-08-16 10:37 | Hospitalist Progress Note ---
Date of Service August 16, 2022 Assessment & Plan (1) Severe sepsis: Plan: Met sepsis criteria on admission with leukocytosis 27.5, febrile, lactate 3.9 and tachycardia -likely pulm source, +sputum culture Admission CT chest with possible pneumonia noted CT abd/pelvis showed resolving acute pancreatitis with decreased size of the numerous peripancreatic fluid collections suggestive of pseudocysts. sputum cx positive for staph aureus and klebsiella pna blood cx no growth Pt was started on caspofungin that was discontinued on 08/08 since cx no growth - Repeat CT abd/pelvis showed progressively worsened acute pancreatitis with mildly increased amount of abdominal ascites. Numerous peripancreatic fluid collections appear to be generally stable from the exam obtained 6 days earlier. - Repeat CT chest showed small left and trace right pleural effusions with persistent bibasilar consolidation. - WBC labile but steadily improving - Stool for C. difficile negative - was spiking fevers despite unasyn - ID consulted and thought to be drug fevers, changed to cefepime 08/13/2022 - with abdominal pain in setting of CT finding of worsening pancreatitis - repeat blood cx, urine cx pending and sputum cx with serratia galeano sensitive - not enough ascites for paracentesis - GI consulted and no intervention - patient had fever up to 38C at 7pm 08/15/2022 - continue ceftriaxone to 08/17/2022 per ID for serratia in sputum culture - Continue monitor closely (2) Pseudocyst of pancreas: Plan: - initial CT with resolving acute pancreatitis with decreasing size of pseudocysts. - Repeat CT abd/pelvis showed progressively worsened acute pancreatitis with mildly increased amount of abdominal ascites. Numerous peripancreatic fluid collections appear to be generally stable from the exam obtained 6 days earlier. - radiology consulted for paracentesis diagnostic - not enough fluid for para at this time - no likely source of infection and too small to drain either way - continue abx as abobve (3) Abnormal LFTs: Plan: - likely related to sepsis-improved - CT A/P noted - monitor (4) Chronic respiratory failure: Plan: - wean to baseline vent settings per pulm - ventilator dependent. - at baseline at this time - reported air leak in trach and need for possible up-sizing - ENT consulted for trach evaluation (5) Electrolyte imbalance: Plan: - replete prn (6) ALS (amyotrophic lateral sclerosis): Plan: - bedbound with quadriplegia, has trach on vent. - continue vent support. - continue home riluzole (7) Left ventricular systolic dysfunction: Plan: - euvolemic, off IVF. - ontinues with free water flushes Plan DVT ppx- sc lovenox Code Status: Full Code Dispo: PCU Diogenes Rodrigues MD [facility] Medicine Admission and Anticipated Discharge Date Admission Date: August 05, 2022 Subjective Patient with ALS vent dependent presented with sepsis thought to be secondary to pulmonary source. Has been on antibiotics with unasyn for 10 days, switched to cefepime 08/13/2022 due to ongoing fevers thought to be drug fevers with unaysn. Repeat CT of abdomen pelvis showed worsening pancreatitis. GI consulted with no intervention. ID following and recommended abx change to cefepime, now narrowed to ceftriaxone through 08/17/2022 then will monitor off abx, per ID. Repeat cultures pending. Denies issues with breathing, coughing, chest pain. Patient had fever 1900 08/15/2022 up to 38C. Review of Systems Review of Systems: All systems were reviewed and negative except as indicated above. Physical Exam Physical Exam: Constitutional: No acute distress HE ENT: SHERRON, posit precious trach Respirat ory system:Decrea sed air entry bila terally, no wheeze , no rhonchi, mild crackles bilatera l lower lobes CVS: S1-S2 positive, n o murmurs or leigh ps Abdomen: Soft, nontender, nondist ended, positive alondra wel sounds x4, pos itive G-J tube Ext remities: +2 pulse s bilaterally radi quan/ dorsalis ped is, no cyanosis,n o edema Neuro:Daisy ke alert oriented to self and place Psych:Normal mood and affect G/U:P ositive [facility] uloskeletal:Stage I-II decubitus ul cer Skin: no ra shes, warm and dry Lymphatic: no cervical or axi llary lymphadenopa thy Results & Data Results & Data ([facility]) Vital Signs (Past 12 Hours) Vital Signs Temp Pulse Resp BP Pulse Ox O2 Del Method FiO2 08/16/22 10:00 37.6 C H 94 H 14 97 08/16/22 10:00 106/65 08/16/22 08:00 37.5 C 104 H 12 97 08/16/22 08:00 105/63 08/16/22 07:00 37.4 C 96 H 12 97 08/16/22 08:00 30 08/16/22 08:00 Mechanical Vent 30 08/16/22 07:55 14 30 08/16/22 06:00 37.6 C H 98 H 14 94/57 L 98 Mechanical Vent 30 08/16/22 04:00 30 08/16/22 04:00 37.8 C H 96 H 14 93/60 L 98 Mechanical Vent 30 08/16/22 02:00 37.5 C 94 H 14 99/66 L 100 Mechanical Vent 30 08/16/22 00:00 37.4 C 101 H 14 105/64 99 Mechanical Vent 30 08/16/22 00:00 105/64 08/16/22 00:00 30 08/16/22 02:25 100 H 14 97 30 08/15/22 22:54 105 H 15 98 30 Diagnostic Findings Laboratory Results WBC 12.07 K/ul (4.8-10.8) H 08/16/22 05:34 RBC 2.51 M/uL (4.63-6.08) L 08/16/22 05:34 Hgb 7.4 g/dl (14.0-18.0) L 08/16/22 05:34 POC Hgb 11.6 g/dl (14.0-18.0) L 08/05/22 20:50 Hct 23.6 % (40.1-51.0) L 08/16/22 05:34 POC Hct 34 % (42-52) L 08/05/22 20:50 MCV 94.0 fL (80.0-100.0) 08/16/22 05:34 MCH 29.5 pg (25.0-34.0) 08/16/22 05:34 MCHC 31.4 g/dL (32.0-36.0) L 08/16/22 05:34 RDW Std Deviation 54.3 fL (36.4-46.3) H 08/16/22 05:34 RDW Coeff of Aissatou 16.1 % (11.5-14.5) H 08/16/22 05:34 Plt Count 463 K/uL (130-400) H 08/16/22 05:34 MPV 9.2 fL (9.4-12.4) L 08/16/22 05:34 Immature Gran % (Auto) 0.9 % 08/16/22 05:34 Neut % (Auto) 80.0 % 08/16/22 05:34 Lymph % (Auto) 12.3 % 08/16/22 05:34 Emery % (Auto) 5.8 % 08/16/22 05:34 Eos % (Auto) 0.8 % 08/16/22 05:34 Baso % (Auto) 0.2 % 08/16/22 05:34 Neut # (Auto) 9.65 K/uL (1.4-6.5) H 08/16/22 05:34 Lymph # (Auto) 1.49 K/uL (1.2-3.4) 08/16/22 05:34 Emery # (Auto) 0.70 K/uL (0.24-0.82) 08/16/22 05:34 Eos # (Auto) 0.10 K/uL (0-0.50) 08/16/22 05:34 Baso # (Auto) 0.02 K/uL (0-0.2) 08/16/22 05:34 Immature Gran # (Auto) 0.11 K/uL (0.00-0.02) H 08/16/22 05:34 RBC Morphology Unremarkable 08/11/22 05:40 Polychromasia 1+ 08/16/22 05:34 Spherocytes Occasional 08/12/22 07:33 Peripher Smr Path Cons 08/11/22 16:42 PT 10.3 Seconds (9.0-12.0) 08/05/22 13:30 INR 1.0 (0.9-1.1) 08/05/22 13:30 APTT 27.7 Seconds (21.0-31.0) 08/05/22 13:30 PTT Ratio 1.0 08/05/22 13:30 Sample Site L Radial 08/09/22 09:20 POC pH 7.38 (7.35-7.45) 08/09/22 09:20 POC pCO2 41 mmHg (35-46) 08/09/22 09:20 POC pO2 115 mmHg (80-95) H 08/09/22 09:20 POC HCO3 24 allison/L (19-24) 08/09/22 09:20 POC Total CO2 26 mmol/L (24-31) 08/09/22 09:20 POC Base Excess -1.0 allison/L (-9-1.8) 08/09/22 09:20 ABG pH 7.65 (7.35-7.45) H* 08/05/22 15:07 ABG pCO2 23 mmHg (35-46) L 08/05/22 15:07 ABG pO2 94 mmHg (80-95) 08/05/22 15:07 ABG HCO3 25 mmol/L (19-24) H 08/05/22 15:07 POC ABG O2 Sat 98.0 % (90-95) H 08/09/22 09:20 ABG O2 Saturation 99.5 % (90-95) H 08/05/22 15:07 ABG Base Excess 5.9 mEq/L (-9-1.8) H 08/05/22 15:07 Praveen Test Pass 08/09/22 09:20 Oxygen Given 2L 08/05/22 15:07 O2 Delivery Device Ventilator 08/09/22 09:20 POC O2 Rate 14 08/09/22 09:20 POC FiO2 30 % 08/09/22 09:20 Tidal Volume 530 08/09/22 09:20 PEEP 6 08/09/22 09:20 POC Sodium 142 mmol/L (135-144) 08/05/22 20:50 Sodium 139 mmol/L (136-145) 08/15/22 05:18 POC Potassium 2.3 mmol/L (3.3-5.0) L* 08/05/22 20:50 Potassium 3.5 mmol/L (3.5-5.1) 08/15/22 05:18 Chloride 105 mmol/L (98-107) 08/15/22 05:18 Carbon Dioxide 25 mmol/L (21-32) 08/15/22 05:18 Anion Gap 9 (3-11) 08/15/22 05:18 BUN 12 mg/dl (6-23) 08/15/22 05:18 Creatinine < 0.20 mg/dl (0.6-1.4) L 08/15/22 05:18 Est Cr Clr Drug Dosing 565.9 ml/min 08/15/22 05:18 Est GFR ( Amer) > 150.0 ml/min 08/15/22 05:18 Est GFR (Non-Af Amer) > 150.0 ml/min 08/15/22 05:18 BUN/Creatinine Ratio TNP 08/15/22 05:18 Glucose 128 mg/dl (70-99(Fasting)) H 08/15/22 05:18 POC Glucose 148 mg/dl (70-99) H 08/16/22 05:35 Lactate 1.9 mmol/L (0.4-2.0) 08/05/22 17:26 Calcium 8.5 mg/dl (8.5-10.1) 08/15/22 05:18 Phosphorus 2.7 mg/dl (2.5-4.9) 08/15/22 05:18 Magnesium 1.7 mg/dl (1.7-2.4) 08/15/22 05:18 Total Bilirubin 0.3 mg/dl (0.2-1.0) 08/13/22 05:37 Direct Bilirubin 0.2 mg/dl (0-0.2) 08/05/22 13:30 AST 37 U/L (13-39) 08/13/22 05:37 ALT 59 U/L (7-52) H 08/13/22 05:37 Alkaline Phosphatase 298 U/L (34-104) H 08/13/22 05:37 Troponin I High Sens 18.3 pg/ml (0-20) D 08/05/22 13:30 Total Protein 6.3 gm/dl (6.0-8.3) 08/13/22 05:37 Albumin 2.9 gm/dl (3.4-5.0) L 08/13/22 05:37 Globulin 3.4 gm/dl (2.5-4.0) 08/13/22 05:37 Albumin/Globulin Ratio 0.9 (0.9-2) 08/13/22 05:37 Lipase 135 U/L (11-82) H 08/05/22 13:30 Procalcitonin 1.28 ng/ml (0-0.5) H 08/05/22 13:30 Urine Color Yellow 08/05/22 16:50 Urine Appearance Clear (Clear) 08/05/22 16:50 Urine pH 5.0 (4.5-7.5) 08/05/22 16:50 Ur Specific [place] 1.016 (1.000-1.030) 08/05/22 16:50 Urine Protein 1+ (Negative) H 08/05/22 16:50 Urine Glucose (UA) Negative (Negative) 08/05/22 16:50 Urine Ketones Negative (Negative) 08/05/22 16:50 Urine Blood Negative (Negative) 08/05/22 16:50 Urine Nitrite Negative (Negative) 08/05/22 16:50 Urine Bilirubin Negative (Negative) 08/05/22 16:50 Urine Urobilinogen Negative (Negative) 08/05/22 16:50 Ur Leukocyte Esterase Negative (Negative) 08/05/22 16:50 Urine WBC (Auto) 1-5 /hpf (0-5) 08/05/22 16:50 Urine RBC (Auto) 5-10 /hpf (0-4) H 08/05/22 16:50 U Hyaline Cast (Auto) 5-10 /lpf (0-5) H 08/05/22 16:50 U Epithel Cells (Auto) 5-10 /lpf (0-5) H 08/05/22 16:50 Urine Bacteria (Auto) Negative (Negative) 08/05/22 16:50 Nasal Screen MRSA (PCR) Negative (Negative) 08/06/22 04:58 Stool Occult Bld Scrn Negative (Negative) 08/11/22 13:15 Stl C. diff Tox B Gene Negative Cdiff Gene (Neg) 08/11/22 03:00 Vancomycin Trough 36.9 mcg/ml (10-20) H* 08/07/22 03:54 SARS-CoV-2, RNA, NAAT NEGATIVE (NEGATIVE) 08/05/22 17:07 Blood Type O Positive 08/11/22 18:17 Antibody Screen NEGATIVE 08/11/22 18:17 Crossmatch See Detail 08/11/22 18:17 Impressions Chest X-Ray 08/11/22 09:55 XR chest 1V portable HISTORY: 37 years-old Male f/u acute shortness of breath COMPARISON: Chest radiograph 08/08/2022, chest CT 08/05/20002009 TECHNIQUE: Portable AP view of the chest FINDINGS: Cardiac silhouette is enlarged. Tracheostomy cannula overlies the midline at the level the clavicular heads. No pneumothorax. Small left and possible trace right pleural effusions. Persistent bibasilar opacities appear stable. Bones appear grossly intact. IMPRESSION: 1. Cardiomegaly without pulmonary edema. 2. Small left and possible trace right pleural effusions with persistent bibasilar opacities. ACT 112: Negative or not required by law. The above report was generated using voice recognition software. It may contain grammatical, syntax or spelling errors. Electronically signed by: James Brody M.D. 08/11/2022 10:25 AM Abdomen/Pelvis CT 08/11/22 16:[address] WITH CONTRAST; CT abdomen and pelvis with IV contrast only CT DOSE: 1682.58 mGy.cm HISTORY: Follow up whole body scan in a patient with fever fever unknown origin TECHNIQUE: Multiaxial CT images of the chest, abdomen and pelvis were performed following the IV administration of 93 cc of Optiray. A dose lowering technique was utilized adhering to the principles of ALARA. COMPARISON: CT chest, abdomen and pelvis 08/05/2022 FINDINGS: CT CHEST: Tracheostomy cannula distal tip terminates at the level of the clavicular heads. Fluid within the airway proximal to the cannula. Mild tracheobronchial secretions. No thyroid nodule or lymphadenopathy. The heart is normal in size without pericardial effusion. No thoracic aortic aneurysm. Unremarkable pulmonary artery. Marked atrophy of the musculature redemonstrated. Small left and trace right pleural effusions. Dependent bibasilar consolidation. No pneumothorax. Mild patchy groundglass opacities throughout the right lung are new from prior. Unremarkable soft tissues. No acute fracture identified. Mild thoracolumbar compression deformities are again noted. CT ABDOMEN/PELVIS: No pneumatosis or pneumoperitoneum. Unremarkable spleen, gallbladder, and adrenal glands. Hepatic steatosis with mild right hemidiaphragmatic elevation. Patency of the hepatic and portal veins. The splenic vein is attenuated however is patent. There is persistent interstitial and peripancreatic inflammation which appears mildly worsened with increased amount of abdominal ascites. Peripancreatic fluid collections appear to be generally stable, with the largest measuring 3.8 cm adjacent to the pancreatic tail. Tiny fluid collections are again noted extending along the stomach and transverse colon. Embolization coils are noted adjacent to the distal stomach and pancreatic head. Gastrojejunostomy tube is in place. Persistent gastric wall thickening. 4 mm nonobstructing calculus of the superior pole left kidney. No ureteral calculi or hydronephrosis identified. Layering hyperdensity within the urinary bladder may represent stone fragments. Air-fluid level within the urinary bladder with diffuse wall thickening. Aorta and IVC appear unchanged. Periportal and precaval lymphadenopathy redemonstrated. There is marked diffuse muscle atrophy. No bowel obstruction or bowel wall thickening. Rectal catheter is in place. Normal appendix. No acute fracture. Demineralized appearance of the bones. IMPRESSION: 1. Small left and trace right pleural effusions with persistent bibasilar consolidation. 2. Progressively worsened acute pancreatitis with mildly increased amount of abdominal ascites. Numerous peripancreatic fluid collections appear to be generally stable from the exam obtained 6 days earlier. Sterility cannot be determined by imaging alone. 3. 4 mm left renal calculus. No ureteral calculi or hydronephrosis. 4. No bowel obstruction or bowel wall thickening. 5. Attenuated splenic vein without occlusion is similar to prior. 6. Upper abdominal lymphadenopathy is likely reactive. 7. Additional findings as above. ACT 112: Negative or not required by law. Dictated: 08/11/2022 6:09 PM Transcribed: 08/11/2022 6:37 PM [facility] [id number] [email or web address] Electronically signed by: James rBody M.D. 08/11/2022 6:[address] 08/11/22 16:[address] WITH CONTRAST; CT abdomen and pelvis with IV contrast only CT DOSE: 1682.58 mGy.cm HISTORY: Follow up whole body scan in a patient with fever fever unknown origin TECHNIQUE: Multiaxial CT images of the chest, abdomen and pelvis were performed following the IV administration of 93 cc of Optiray. A dose lowering technique was utilized adhering to the principles of ALARA. COMPARISON: CT chest, abdomen and pelvis 08/05/2022 FINDINGS: CT CHEST: Tracheostomy cannula distal tip terminates at the level of the clavicular heads. Fluid within the airway proximal to the cannula. Mild tracheobronchial secretions. No thyroid nodule or lymphadenopathy. The heart is normal in size without pericardial effusion. No thoracic aortic aneurysm. Unremarkable pulmonary artery. Marked atrophy of the musculature redemonstrated. Small left and trace right pleural effusions. Dependent bibasilar consolidation. No pneumothorax. Mild patchy groundglass opacities throughout the right lung are new from prior. Unremarkable soft tissues. No acute fracture identified. Mild thoracolumbar compression deformities are again noted. CT ABDOMEN/PELVIS: No pneumatosis or pneumoperitoneum. Unremarkable spleen, gallbladder, and adre nal glands. Hepatic steatosis with mild right hemidiaphragmatic elevation. Patency of the hepatic and portal veins. The splenic vein is attenuated however is patent. There is persistent interstitial and peripancreatic inflammation which appears mildly worsened with increased amount of abdominal ascites. Peripancreatic fluid collections appear to be generally stable, with the largest measuring 3.8 cm adjacent to the pancreatic tail. Tiny fluid collections are again noted extending along the stomach and transverse colon. Embolization coils are noted adjacent to the distal stomach and pancreatic head. Gastrojejunostomy tube is in place. Persistent gastric wall thickening. 4 mm nonobstructing calculus of the superior pole left kidney. No ureteral calculi or hydronephrosis identified. Layering hyperdensity within the urinary bladder may represent stone fragments. Air-fluid level within the urinary bladder with diffuse wall thickening. Aorta and IVC appear unchanged. Periportal and precaval lymphadenopathy redemonstrated. There is marked diffuse muscle atrophy. No bowel obstruction or bowel wall thickening. Rectal catheter is in place. Normal appendix. No acute fracture. Demineralized appearance of the bones. IMPRESSION: 1. Small left and trace right pleural effusions with persistent bibasilar consolidation. 2. Progressively worsened acute pancreatitis with mildly increased amount of abdominal ascites. Numerous peripancreatic fluid collections appear to be generally stable from the exam obtained 6 days earlier. Sterility cannot be determined by imaging alone. 3. 4 mm left renal calculus. No ureteral calculi or hydronephrosis. 4. No bowel obstruction or bowel wall thickening. 5. Attenuated splenic vein without occlusion is similar to prior. 6. Upper abdominal lymphadenopathy is likely reactive. 7. Additional findings as above. ACT 112: Negative or not required by law. Dictated: 08/11/2022 6:09 PM Transcribed: 08/11/2022 6:37 PM [facility] [id number] [email or web address] Electronically signed by: James Brody M.D. 08/11/2022 6:43 PM Venous Doppler Study 08/11/22 16:24 BILATERAL LOWER EXTREMITY VENOUS DOPPLER HISTORY: Acute pain and swelling of the lower legs r/o dvt COMPARISON STUDY: None. FINDINGS: There is normal compressibility, flow, and augmentation within the bilateral lower extremity deep venous systems. The common femoral and greater saphenous veins are not visualized secondary to overlying bandages. IMPRESSION: No DVT within the right or left lower extremity. ACT 112: Negative or not required by law. Electronically signed by: James Brody M.D. 08/11/2022 7:45 PM Medications Administered Current Inpatient Medications Albuterol (Albuterol 0.083% Nebu Soln 3 Ml Vial) 2.5 mg NEB Q6R PRN; Protocol PRN Reason: cough wheeze Stop: 09/05/22 00:03 Last Admin: 08/15/22 19:45 Dose: 2.5 mg Artificial Tears (Artificial Tears) 1 drops OP UD PRN PRN Reason: Dry Eye(S) Stop: 09/05/22 00:36 Last Admin: 08/10/22 18:35 Dose: 1 drops Artificial Tears (Artificial Tears) 1 drops OP QID MYNOR Stop: 09/05/22 08:59 Last Admin: 08/15/22 19:26 Dose: 1 drops Atropine Sulfate (Atropine Sulfate 1% Op Soln 5 Ml Btl) 1 drops SL QID PRN PRN Reason: increased secretions Stop: 09/05/22 00:05 Calamine/Phenol (Menthol-Zinc Oxide 360 Appln/120 Gm Tube) 1 appln EXT DAILY PRN PRN Reason: SKIN IRRITATION Stop: 09/10/22 19:14 Last Admin: 08/13/22 20:44 Dose: 1 appln Dextrose (Dextrose 50% 50 Ml Syringe) 25 - 50 ml IV UD PRN; Protocol PRN Reason: Hypoglycemia Protocol Stop: 09/06/22 10:59 Enoxaparin Sodium (Enoxaparin Inj 40 Mg/0.4 Ml Syr) 40 mg SQ QAM MYNOR Stop: 09/05/22 08:59 Last Admin: 08/10/22 08:58 Dose: 40 mg Enteral Nutritional Formula (Peptamen 1.5 Cali 1,000 Ml Bag) 1,000 ml JT UD MYNOR; Protocol Stop: 09/05/22 10:59 Last Admin: 08/15/22 16:29 Dose: 1,000 ml Famotidine (Famotidine Susp 20 Mg/2.5 Ml Udp) 20 mg NG BID PRN PRN Reason: Indigestion Stop: 09/05/22 02:29 Glucagon (Glucagon For Inj 1 Mg Vial) 1 mg IM UD PRN; Protocol PRN Reason: Hypoglycemia Protocol Stop: 09/06/22 10:59 Glucose (Glucose 40% Gel 15 Gm Tube) 15 - 30 gm PO UD PRN; Protocol PRN Reason: Hypoglycemia Protocol Stop: 09/06/22 10:59 Glucose (Glucose 10 Tab/Tube) 4 - 8 tab PO UD PRN; Protocol PRN Reason: Hypoglycemia Protocol Stop: 09/06/22 10:59 Guaifenesin (Guaifenesin Sugar Free 100 Mg/5 Ml Udc) 200 mg GT BID PRN PRN Reason: Cough Stop: 09/05/22 00:05 Acetaminophen (Ofirmev) 1,000 mg in 100 mls @ 400 mls/hr IV Q8H PRN PRN Reason: Fever Stop: 08/16/22 14:24 Last Infusion: 08/16/22 06:54 Dose: Infused Ceftriaxone Sodium 2,000 mg/ (Dextrose) 70 mls @ 100 mls/hr IV Q24H MYNOR; Protocol Stop: 08/17/22 14:59 Last Infusion: 08/15/22 17:15 Dose: Infused Insulin Aspart (Insulin Aspart Per Unit) 0 units SC Q6 MYNOR Stop: 09/06/22 11:59 Last Admin: 08/16/22 05:45 Dose: 5 units Lansoprazole (Lansoprazole 15 Mg Soltab) 15 mg PO DAILY MYNOR Stop: 09/05/22 08:59 Last Admin: 08/15/22 10:19 Dose: 15 mg Lidocaine (Lidocaine 5% Oint 30 Gm Tube) 1 appln TOP BID PRN PRN Reason: Pain Stop: 09/05/22 00:05 Magnesium Oxide (Magnesium Oxide 400 Mg Tab) 400 mg PO TID MYNOR Stop: 08/16/22 20:59 Last Admin: 08/15/22 16:28 Dose: 400 mg Melatonin (Melatonin 3 Mg Tab) 3 - 6 mg PO HS PRN PRN Reason: Sleep Stop: 09/05/22 00:05 Last Admin: 08/16/22 01:19 Dose: 3 mg Midodrine (Midodrine Hcl 2.5 Mg Tab) 5 mg PO TID@0800,1200,1800 MYNOR Stop: 09/05/22 00:29 Last Admin: 08/15/22 16:32 Dose: 5 mg Miscellaneous (Carbohydrates For Hypoglycemia ) 15 - 30 gm PO UD PRN PRN Reason: Hypoglycemia Treatment Stop: 09/06/22 10:59 Multi-Ingredient Cream (Artificial Tears Op Oint 3.5 Gm Tube) 1 appln OP HS [facility] Stop: 09/05/22 00:05 Last Admin: 08/15/22 19:26 Dose: 1 appln Non-Formulary Medication (Zinc Oxide) 1 appln TOP TID MYNOR Stop: 09/05/22 08:59 Last Admin: 08/15/22 19:27 Dose: 1 appln Nystatin (Nystatin Powder 15gm Btl) 1 appln EXT DAILY PRN PRN Reason: Rash Stop: 09/05/22 00:05 Polyethylene Glycol (Polyethylene (Miralax) 17 Gm Pack) 17 gm PEG DAILY PRN PRN Reason: Constipation Stop: 09/05/22 00:05 Sodium Chloride (Sodium Chlor 7% 4 Ml Neb) 4 ml NEB BIDR [facility] Stop: 09/05/22 18:59 Last Admin: 08/16/22 07:45 Dose: 4 ml Sterile Water (Tube Feeding Water Flush) 250 ml JT Q8H [facility] Stop: 09/07/22 09:59 Last Admin: 08/16/22 01:19 Dose: 250 ml Tramadol HCl (Tramadol Hcl 50 Mg Tablet) 50 mg NG Q6H PRN PRN Reason: Pain Stop: 09/05/22 00:05 Last Admin: 08/16/22 04:36 Dose: 50 mg Vitamin D (Cholecalciferol 1,000 Units 25 Mcg Tab) 1,000 units JT DAILY [facility] Stop: 09/05/22 08:59 Last Admin: 08/15/22 10:19 Dose: 1,000 units
[2022-08-16] MEDS: MIDODRINE HCL 2.5 MG TAB PO SCH ×3 (11:00→17:02)
[2022-08-16] MEDS: CHOLECALCIFEROL 1,000 UNITS 25 MCG TAB JT SCH (11:03)
[2022-08-16] MEDS: MAGNESIUM OXIDE 400 MG TAB PO SCH ×2 (11:03→13:59)
[2022-08-16] MEDS: ARTIFICIAL TEARS OP SCH ×4 (11:03→21:20)
[2022-08-16] MEDS: LANSOPRAZOLE 15 MG SOLTAB PO SCH (11:03)
[2022-08-16] MEDS: NON-FORMULARY MEDICATION (Zinc Oxide 20 % Ointment) TOP SCH ×3 (11:04→21:21)
--- NOTE | 2022-08-16 11:38 | ENT Consultation ---
Date of Consultation August 16, 2022 Assessment & Plan (1) Ventilator dependence: Trach size of 8 is appropriate for this patient. (2) Sepsis: Thought to be due to pancreatic pseudocyst or pneumonia. History of Present Illness Reason for Consultation: Evaluation of trach Attending Physician: Diogenes Rodrigues MD History of Present Illness 37-year-old with ALS, long-term tracheostomy, sepsis thought to be due to the pancreatic pseudocyst versus pneumonia, consulted for possible trach upsizing Allergies Allergy/AdvReac Type Severity Reaction Status Date / Time No Known Allergies Allergy Verified 05/07/22 19:50 Home Medications Medication Instructions Recorded Confirmed Type acetaminophen 160 mg/5 mL oral 640 mg feeding tube Q6 PRN Pain, 05/07/22 06/10/22 History liquid (Children's Acetaminophen) Moderate atropine 1 % eye drops 1 drp sublingual QID PRN increased 05/07/22 06/10/22 History secretions cholecalciferol (vitamin D3) 25 1,000 unit feeding tube DAILY 05/07/22 06/10/22 History mcg (1,000 unit) capsule (Vitamin D3) ibuprofen 100 mg/5 mL oral 400 mg feeding tube Q6 PRN Pain, 05/07/22 06/10/22 History suspension Moderate melatonin 3 mg tablet 3 - 6 mg PO HS PRN Sleep 05/07/22 06/10/22 History nystatin 100,000 unit/gram topical 1 applic topical DAILY PRN Rash 05/07/22 06/10/22 History powder tramadol 50 mg tablet 50 mg feeding tube Q6H PRN Pain 05/07/22 06/10/22 History zinc oxide 20 % topical ointment 1 applic topical TID 05/07/22 06/10/22 History A,D-aloe jvtg-mpairwjxuh-e.pet 1 ea topical BID PRN scrotal area 06/10/22 06/10/22 History topical ointment carboxymethylcellulose sodium 0.5 1 drp ophthalmic (eye) UD PRN Dry 06/10/22 06/10/22 History % eye drops Eye(S) dextran 70-hypromellose (PF) 0.1 1 drp OPB QID 06/10/22 06/10/22 History %-0.3 % eye drops in a dropperette (Artificial Tears (PF)) famotidine 40 mg/5 mL (8 mg/mL) 20 mg feeding tube BID PRN 06/10/22 06/10/22 H istory oral suspension Indigestion guaifenesin 100 mg/5 mL oral liquid 200 mg feeding tube BID PRN Cough 06/10/22 06/10/22 History ipratropium bromide 21 mcg (0.03 2 spray intranasal TID 06/10/22 06/10/22 History %) nasal spray lidocaine 5 % topical ointment 1 applic topical BID PRN Pain 06/10/22 06/10/22 History midodrine 5 mg tablet 5 mg feeding tube TID 06/10/22 06/10/22 History nut.tx impaired digestive 1 ea feeding tube UD 06/10/22 06/10/22 History fxn-fiber 0.07 gram-1.5 kcal/mL oral liquid (Vital 1.5 Cali) polyethylene glycol 3350 17 17 g feeding tube DAILY PRN 06/10/22 06/10/22 History gram/dose oral powder (Miralax) Constipation riluzole 50 mg tablet 50 mg feeding tube DAILY 06/10/22 06/10/22 History senna leaf extract 176 mg/5 mL 15 ml feeding tube BID PRN 06/10/22 06/10/22 History oral syrup (senna) Constipation white petrolatum-mineral oil 57.3 1 applic ophthalmic (eye) HS 06/10/22 06/10/22 History %-42.5 % eye ointment (Lubricant Eye) lansoprazole 15 mg delayed 15 mg PO DAILY #0 tabs 06/16/22 Rx release,disintegrating tablet (Prevacid SoluTab) Patient History Medical History ALS (amyotrophic lateral sclerosis) DX FEBRUARY 2014 Atrial fibrillation with RVR isolated hx of, no further reoccurances Cardiac murmur AN Dry eye syndrome Left ventricular systolic dysfunction Sleep apnea USES APAP DEVICE (DX WITH ALS) ALWAYS USING >WITH 3L AT HS ONLY Slow gastric motility D/T ALS Uses feeding tube SYRINGE FEEDING THRU PEG TUBE (STILL SWALLOWS PILLS ORALLY) Surgical History History of esophagogastroduodenoscopy (EGD) History of herniorrhaphy History of tooth extraction Hx of LASIK PRK S/P percutaneous endoscopic gastrostomy (PEG) tube placement Family History Mother Family history of diabetes mellitus Other No family history of adverse response to anesthesia Social History Smoking Status: Never smoker Second Hand Exposure: No; Hx Alcohol Use: No Hx Substance Use: Yes Last Used Substance: Unknown Substance Use Type Other:: Medical Marijuana SL or salve Preferred Language: Romanian Communication Ability: Effective Program Counselor Required: No Beliefs That Will Affect Care: Oriental Orthodox and Spiritual marital status: Current Living Situation: Spouse and Family Current Living Situation Comment: AND 3 SONS How many Children do You have: 3 Feels Safe at Home: Yes Assistive Devices: Hospital Bed and Scooter/Electric Scooter Physical Exam Constitutional: + ill appearing and + mechanically ventilated Eyes: PERRL, conjunctivae normal, anicteric sclerae ENMT: external ear and nose normal, oropharynx normal Neck: Size [address] in good position. Respiratory: On vent Results & Data ([facility]) Vital Signs (Past 12 Hours) Vital Signs Temp Pulse Resp BP Pulse Ox O2 Del Method FiO2 08/16/22 10:00 37.6 C H 94 H 14 97 08/16/22 10:00 106/65 08/16/22 08:00 37.5 C 104 H 12 97 08/16/22 08:00 105/63 08/16/22 07:00 37.4 C 96 H 12 97 08/16/22 08:00 30 08/16/22 08:00 Mechanical Vent 30 08/16/22 07:55 14 30 08/16/22 06:00 37.6 C H 98 H 14 94/57 L 98 Mechanical Vent 30 08/16/22 04:00 30 08/16/22 04:00 37.8 C H 96 H 14 93/60 L 98 Mechanical Vent 30 08/16/22 02:00 37.5 C 94 H 14 99/66 L 100 Mechanical Vent 30 08/16/22 00:00 37.4 C 101 H 14 105/64 99 Mechanical Vent 30 08/16/22 00:00 105/64 08/16/22 00:00 30 10/14/22 02:25 100 H 14 97 30 (1) Sepsis Sepsis type: sepsis due to unspecified organism Sepsis acute organ dysfunction status: unspecified Qualified Code(s): A41.9 - Sepsis, unspecified organism
[2022-08-16] MEDS: PEPTAMEN 1.5 CAL 1,000 ML BAG JT SCH (11:56)
[2022-08-16] MEDS: cefTRIAXone SODIUM 2,000 MG in DEXTROSE 5% 50 ML IV SCH (14:01)
[2022-08-16] MEDS: ALBUTEROL 0.083% NEBU SOLN 3 ML VIAL NEB PRN (19:31)
[2022-08-16] MEDS ORDERED: ACETAMINOPHEN 325 MG TAB PO PRN (21:04)
[2022-08-16] MEDS: ARTIFICIAL TEARS OP OINT 3.5 GM TUBE OP SCH (21:21)
[2022-08-17] MEDS: INSULIN ASPART PER UNIT SC SCH ×4 (00:13→18:07)
[2022-08-17] MEDS: TUBE FEEDING WATER FLUSH JT SCH ×3 (02:50→18:06)
[2022-08-17] MEDS: traMADol HCL 50 MG TABLET NG PRN ×3 (03:47→23:27)
[2022-08-17 05:43] LABS: Basophils # (auto) 0.01 K/uL (0-0.2); Basophils % (auto) 0.1 %; Eosinophils # (auto) 0.13 K/uL (0-0.50); Eosinophils % (auto) 1.1 %; Hematocrit (blood only) 22.4 % (40.1-51.0); Hemoglobin 7.4 g/dl (14.0-18.0); Immature Granulocytes % (auto) 0.8 %; Lymphocytes # (auto) 1.57 K/uL (1.2-3.4); Lymphocytes % (auto) 13.1 %; Mean Corpuscular Hemoglobin 30.8 pg (25.0-34.0); Mean Corpuscular Volume 93.3 fL (80.0-100.0); Mean Platelet Volume 8.9 fL (9.4-12.4); Monocytes # (auto) 0.66 K/uL (0.24-0.82); Monocytes % (auto) 5.5 %; Neutrophils # (auto) 9.53 K/uL (1.4-6.5); Neutrophils % (auto) 79.4 %; Platelet Count 449 K/uL (130-400); RDW Standard Deviation 53.1 fL (36.4-46.3)
[2022-08-17 06:17] LABS: Poikilocytosis Present; Polychromasia 1+
[2022-08-17 06:36] LABS: Anion Gap 8 (3-11); Blood Urea Nitrogen 11 mg/dl (6-23); Calcium 8.7 mg/dl (8.5-10.1); Carbon Dioxide 25 mmol/L (21-32); Chloride 102 mmol/L (98-107); Creatinine Clr Calc Pharmacy 565.9 ml/min; Est GFR (African American) > 150.0 ml/min; Est GFR (Non-African American) > 150.0 ml/min; Glucose 128 mg/dl (70-99(Fasting)); Magnesium 1.7 mg/dl (1.7-2.4); Phosphorus 2.6 mg/dl (2.5-4.9); Potassium 3.7 mmol/L (3.5-5.1); Sodium 135 mmol/L (136-145)
[2022-08-17] MEDS: PEPTAMEN 1.5 CAL 1,000 ML BAG JT SCH (07:12)
[2022-08-17] MEDS: SODIUM CHLOR 7% 4 ML NEB NEB SCH ×2 (07:27→19:42)
[2022-08-17] MEDS: NON-FORMULARY MEDICATION (Zinc Oxide 20 % Ointment) TOP SCH ×3 (08:28→21:31)
[2022-08-17] MEDS: LANSOPRAZOLE 15 MG SOLTAB PO SCH (08:29)
[2022-08-17] MEDS: CHOLECALCIFEROL 1,000 UNITS 25 MCG TAB JT SCH (08:29)
[2022-08-17] MEDS: MIDODRINE HCL 2.5 MG TAB PO SCH ×3 (08:29→18:06)
[2022-08-17] MEDS: ARTIFICIAL TEARS OP SCH ×4 (08:30→21:31)
--- NOTE | 2022-08-17 08:34 | Pulmonology Progress Note ---
Date of Service August 17, 2022 Assessment & Plan (1) Ventilator dependence: (2) ALS (amyotrophic lateral sclerosis): Plan Impression: 37-year-old male vent dependent due to ALS admitted with sepsis found to have sensitive Klebsiella growing from tracheal aspirate as well as methicillin sensitive staph. Antibiotics are being dictated by infectious disease. He initially had some issues with his trach last night. There was no leak however the patient felt that he needed to be upsized. This morning the symptoms have resolved. Recommendations: 1. Ventilator dependence due to ALS: Continue current vent settings. The patient appears to be oxygenating and ventilating well. 2. Acute purulent tracheitis: Klebsiella and methicillin sensitive staph aureus. Antibiotics under the direction of ID 3. No need to change trach. Will continue to follow for respiratory/ventilator issues. Patient is stable. We will see every other day going forward. Please call if urgent questions Admission and Anticipated Discharge Date Admission Date: August 05, 2022 Subjective Patient endorses shortness of breath and requesting more CoughAssist. at bedside. Otherwise no acute events. Stable on ventilator settings. Review of Systems Review of Systems: ROS limited due to the patient's tracheostomy status and ventilator dependence. Physical Exam Physical Exam: Constitutional: No acute distress HEENT: trach site clean dry and intact. No leak Respiratory system: Decreased breath sounds bilaterally without wheezing. No crackles CVS: S1-S2 positive, no murmurs or gallops Abdomen: Soft, nontender, nondistended, positive bowel sounds x4, positive G-J tube Extremities: +2 pulses bilaterally radialis/ dorsalis pedis, no cyanosis, +1 pitting edema bilateral lower extremity Neuro: Awake, communicates via eye movements. G/U: Positive [place] Musculoskeletal: Stage I-II decubitus ulcer Results & Data Results & Data ([facility]) Vital Signs (Past 12 Hours) Vital Signs Temp Pulse Resp BP Pulse Ox O2 Del Method FiO2 08/17/22 04:00 37.4 C 102 H 12 106/66 97 08/17/22 04:00 30 08/17/22 02:00 37.4 C 93 H 12 103/66 100 08/17/22 03:20 92 H 14 99 30 08/17/22 00:00 102 H 08/16/22 21:00 Mechanical Vent 30 08/17/22 00:00 30 08/17/22 00:00 37.6 C H 100 H 14 108/64 98 08/16/22 22:00 37.9 C H 104 H 14 106/66 93 08/16/22 23:08 100 H 15 98 30 08/16/22 22:00 30 PG Care Time/CCT Total # of Minutes Spent Total Time Spent with Patient: Total time spent is greater than 50% in coordination of care (as documented) at patient's floor/unit and/or counseling patient: Coding Level of Care Code 21087 Subseq Hosp Care Lvl 2 Diagnoses Ventilator dependence Z99.11 ALS (amyotrophic lateral sclerosis) G12.21
[2022-08-17] MEDS ORDERED: MAGNESIUM SULFATE / D5W 1 GM/100 ML BAG IV ONE (08:41)
[2022-08-17] MEDS ORDERED: POTASSIUM CHLORIDE CRTAB 20 MEQ TABCR PO STA (08:41)
--- NOTE | 2022-08-17 10:32 | Hospitalist Progress Note ---
Date of Service August 17, 2022 Assessment & Plan (1) Severe sepsis: Plan: Met sepsis criteria on admission with leukocytosis 27.5, febrile, lactate 3.9 and tachycardia -likely pulm source, +sputum culture Admission CT chest with possible pneumonia noted CT abd/pelvis showed resolving acute pancreatitis with decreased size of the numerous peripancreatic fluid collections suggestive of pseudocysts. sputum cx positive for staph aureus and klebsiella pna blood cx no growth Pt was started on caspofungin that was discontinued on 08/08 since cx no growth - Repeat CT abd/pelvis showed progressively worsened acute pancreatitis with mildly increased amount of abdominal ascites. Numerous peripancreatic fluid collections appear to be generally stable from the exam obtained 6 days earlier. - Repeat CT chest showed small left and trace right pleural effusions with persistent bibasilar consolidation. - WBC labile but steadily improving - Stool for C. difficile negative - was spiking fevers despite unasyn - ID consulted and thought to be drug fevers, changed to cefepime 08/13/2022 - with abdominal pain in setting of CT finding of worsening pancreatitis - repeat blood cx, urine cx pending and sputum cx with serratia galeano sensitive - not enough ascites for paracentesis - GI consulted and no intervention - patient had fever up to 38C at 7pm 08/15/2022 - continue ceftriaxone to 08/18/2022 per ID for serratia in sputum culture and for >48hrs afebrile then will monitor off abx for 24 hours for fevers - Continue monitor closely (2) Pseudocyst of pancreas: Plan: - initial CT with resolving acute pancreatitis with decreasing size of pseudocysts. - Repeat CT abd/pelvis showed progressively worsened acute pancreatitis with mildly increased amount of abdominal ascites. Numerous peripancreatic fluid collections appear to be generally stable from the exam obtained 6 days earlier. - radiology consulted for paracentesis diagnostic - not enough fluid for para at this time - no likely source of infection and too small to drain either way - continue abx as abobve (3) Abnormal LFTs: Plan: - likely related to sepsis-improved - CT A/P noted - monitor (4) Chronic respiratory failure: Plan: - wean to baseline vent settings per pulm - ventilator dependent. - at baseline at this time - reported air leak in trach and need for possible up-sizing - ENT consulted for trach evaluation (5) Electrolyte imbalance: Plan: - replete prn (6) ALS (amyotrophic lateral sclerosis): Plan: - bedbound with quadriplegia, has trach on vent. - continue vent support. - continue home riluzole (7) Left ventricular systolic dysfunction: Plan: - euvolemic, off IVF. - ontinues with free water flushes Plan DVT ppx- sc lovenox Code Status: Full Code Dispo: PCU Diogenes Rodrigues MD [facility] Medicine Admission and Anticipated Discharge Date Admission Date: August 05, 2022 Subjective Patient with ALS vent dependent presented with sepsis thought to be secondary to pulmonary source. Has been on antibiotics with unasyn for 10 days, switched to cefepime 08/13/2022 due to ongoing fevers thought to be drug fevers with unaysn. Repeat CT of abdomen pelvis showed worsening pancreatitis. GI consulted with no intervention. ID following and recommended abx change to cefepime, now narrowed to ceftriaxone through 08/17/2022 then will monitor off abx, per ID. Repeat cultures pending. Denies issues with breathing, coughing, chest pain. No fever >100.4 since 08/15/2022 1900. Review of Systems Review of Systems: All systems were reviewed and negative except as indicated above. Physical Exam Physical Exam: Constitutional: No acute distress HE ENT: SHERRON, posit precious trach Respirat ory system:Decrea sed air entry bila terally, no wheeze , no rhonchi, mild crackles bilatera l lower lobes CVS: S1-S2 positive, n o murmurs or leigh ps Abdomen: Soft, nontender, nondist ended, positive alondra wel sounds x4, pos itive G-J tube Ext remities: +2 pulse s bilaterally radi quan/ dorsalis ped is, no cyanosis,n o edema Neuro:Daisy ke alert oriented to self and place Psych:Normal mood and affect G/U:P ositive [facility] [place]Stage I-II decubitus ul cer Skin: no ra shes, warm and dry Lymphatic: no cervical or axi llary lymphadenopa thy Results & Data Results & Data ([facility]) Vital Signs (Past 12 Hours) Vital Signs Temp Pulse Resp BP Pulse Ox FiO2 08/17/22 07:30 94 H 14 97 30 08/17/22 04:00 37.4 C 102 H 12 106/66 97 08/17/22 04:00 30 08/17/22 02:00 37.4 C 93 H 12 103/66 100 08/17/22 03:20 92 H 14 99 30 08/17/22 00:00 102 H 08/17/22 00:00 30 08/17/22 00:00 37.6 C H 100 H 14 108/64 98 08/16/22 23:08 100 H 15 98 30 Diagnostic Findings Laboratory Results WBC 12.00 K/ul (4.8-10.8) H 08/17/22 05:27 RBC 2.40 M/uL (4.63-6.08) L 08/17/22 05:27 Hgb 7.4 g/dl (14.0-18.0) L 08/17/22 05:27 POC Hgb 11.6 g/dl (14.0-18.0) L 08/05/22 20:50 Hct 22.4 % (40.1-51.0) L 08/17/22 05:27 POC Hct 34 % (42-52) L 08/05/22 20:50 MCV 93.3 fL (80.0-100.0) 08/17/22 05:27 MCH 30.8 pg (25.0-34.0) 08/17/22 05:27 MCHC 33.0 g/dL (32.0-36.0) 08/17/22 05:27 RDW Std Deviation 53.1 fL (36.4-46.3) H 08/17/22 05:27 RDW Coeff of Aissatou 16.0 % (11.5-14.5) H 08/17/22 05:27 Plt Count 449 K/uL (130-400) H 08/17/22 05:27 MPV 8.9 fL (9.4-12.4) L 08/17/22 05:27 Immature Gran % (Auto) 0.8 % 08/17/22 05:27 Neut % (Auto) 79.4 % 08/17/22 05:27 Lymph % (Auto) 13.1 % 08/17/22 05:27 [place] % (Auto) 5.5 % 08/17/22 05:27 Eos % (Auto) 1.1 % 08/17/22 05:27 Baso % (Auto) 0.1 % 08/17/22 05:27 Neut # (Auto) 9.53 K/uL (1.4-6.5) H 08/17/22 05:27 Lymph # (Auto) 1.57 K/uL (1.2-3.4) 08/17/22 05:27 [place] # (Auto) 0.66 K/uL (0.24-0.82) 08/17/22 05:27 Eos # (Auto) 0.13 K/uL (0-0.50) 08/17/22 05:27 Baso # (Auto) 0.01 K/uL (0-0.2) 08/17/22 05:27 Immature Gran # (Auto) 0.10 K/uL (0.00-0.02) H 08/17/22 05:27 RBC Morphology Unremarkable 08/11/22 05:40 Polychromasia 1+ 08/17/22 05:27 Poikilocytosis Present 08/17/22 05:27 Spherocytes Occasional 08/12/22 07:33 Peripher Smr Path Cons 08/11/22 16:42 PT 10.3 Seconds (9.0-12.0) 08/05/22 13:30 INR 1.0 (0.9-1.1) 08/05/22 13:30 APTT 27.7 Seconds (21.0-31.0) 08/05/22 13:30 PTT Ratio 1.0 08/05/22 13:30 Sample Site L Radial 08/09/22 09:20 POC pH 7.38 (7.35-7.45) 08/09/22 09:20 POC pCO2 41 mmHg (35-46) 08/09/22 09:20 POC pO2 115 mmHg (80-95) H 08/09/22 09:20 POC HCO3 24 allison/L (19-24) 08/09/22 09:20 POC Total CO2 26 mmol/L (24-31) 08/09/22 09:20 POC Base Excess -1.0 allison/L (-9-1.8) 08/09/22 09:20 ABG pH 7.65 (7.35-7.45) H* 08/05/22 15:07 ABG pCO2 23 mmHg (35-46) L 08/05/22 15:07 ABG pO2 94 mmHg (80-95) 08/05/22 15:07 ABG HCO3 25 mmol/L (19-24) H 08/05/22 15:07 POC ABG O2 Sat 98.0 % (90-95) H 08/09/22 09:20 ABG O2 Saturation 99.5 % (90-95) H 08/05/22 15:07 ABG Base Excess 5.9 mEq/L (-9-1.8) H 08/05/22 15:07 Praveen Test Pass 08/09/22 09:20 Oxygen Given 2L 08/05/22 15:07 O2 Delivery Device Ventilator 08/09/22 09:20 POC O2 Rate 14 08/09/22 09:20 POC FiO2 30 % 08/09/22 09:20 Tidal Volume 530 08/09/22 09:20 PEEP 6 08/09/22 09:20 POC Sodium 142 mmol/L (135-144) 08/05/22 20:50 Sodium 135 mmol/L (136-145) L 08/17/22 05:27 POC Potassium 2.3 mmol/L (3.3-5.0) L* 08/05/22 20:50 Potassium 3.7 mmol/L (3.5-5.1) 08/17/22 05:27 Chloride 102 mmol/L (98-107) 08/17/22 05:27 Carbon Dioxide 25 mmol/L (21-32) 08/17/22 05:27 Anion Gap 8 (3-11) 08/17/22 05:27 BUN 11 mg/dl (6-23) 08/17/22 05:27 Creatinine < 0.20 mg/dl (0.6-1.4) L 08/17/22 05:27 Est Cr Clr Drug Dosing 565.9 ml/min 08/17/22 05:27 Est GFR ( Amer) > 150.0 ml/min 08/17/22 05:27 Est GFR (Non-Af Amer) > 150.0 ml/min 08/17/22 05:27 BUN/Creatinine Ratio TNP 08/17/22 05:27 Glucose 128 mg/dl (70-99(Fasting)) H 08/17/22 05:27 POC Glucose 147 mg/dl (70-99) H 08/17/22 00:04 Lactate 1.9 mmol/L (0.4-2.0) 08/05/22 17:26 Calcium 8.7 mg/dl (8.5-10.1) 08/17/22 05:27 Phosphorus 2.6 mg/dl (2.5-4.9) 08/17/22 05:27 Magnesium 1.7 mg/dl (1.7-2.4) 08/17/22 05:27 Total Bilirubin 0.3 mg/dl (0.2-1.0) 08/13/22 05:37 Direct Bilirubin 0.2 mg/dl (0-0.2) 08/05/22 13:30 AST 37 U/L (13-39) 08/13/22 05:37 ALT 59 U/L (7-52) H 08/13/22 05:37 Alkaline Phosphatase 298 U/L (34-104) H 08/13/22 05:37 Troponin I High Sens 18.3 pg/ml (0-20) D 08/05/22 13:30 Total Protein 6.3 gm/dl (6.0-8.3) 08/13/22 05:37 Albumin 2.9 gm/dl (3.4-5.0) L 08/13/22 05:37 Globulin 3.4 gm/dl (2.5-4.0) 08/13/22 05:37 Albumin/Globulin Ratio 0.9 (0.9-2) 08/13/22 05:37 Lipase 135 U/L (11-82) H 08/05/22 13:30 Procalcitonin 1.28 ng/ml (0-0.5) H 08/05/22 13:30 Urine Color Yellow 08/05/22 16:50 Urine Appearance Clear (Clear) 08/05/22 16:50 Urine pH 5.0 (4.5-7.5) 08/05/22 16:50 Ur Specific [place] 1.016 (1.000-1.030) 08/05/22 16:50 Urine Protein 1+ (Negative) H 08/05/22 16:50 Urine Glucose (UA) Negative (Negative) 08/05/22 16:50 Urine Ketones Negative (Negative) 08/05/22 16:50 Urine Blood Negative (Negative) 08/05/22 16:50 Urine Nitrite Negative (Negative) 08/05/22 16:50 Urine Bilirubin Negative (Negative) 08/05/22 16:50 Urine Urobilinogen Negative (Negative) 08/05/22 16:50 Ur Leukocyte Esterase Negative (Negative) 08/05/22 16:50 Urine WBC (Auto) 1-5 /hpf (0-5) 08/05/22 16:50 Urine RBC (Auto) 5-10 /hpf (0-4) H 08/05/22 16:50 U Hyaline Cast (Auto) 5-10 /lpf (0-5) H 08/05/22 16:50 U Epithel Cells (Auto) 5-10 /lpf (0-5) H 08/05/22 16:50 Urine Bacteria (Auto) Negative (Negative) 08/05/22 16:50 Nasal Screen MRSA (PCR) Negative (Negative) 08/06/22 04:58 Stool Occult Bld Scrn Negative (Negative) 08/11/22 13:15 Stl C. diff Tox B Gene Negative Cdiff Gene (Neg) 08/11/22 03:00 Vancomycin Trough 36.9 mcg/ml (10-20) H* 08/07/22 03:54 SARS-CoV-2, RNA, NAAT NEGATIVE (NEGATIVE) 08/05/22 17:07 Blood Type O Positive 08/11/22 18:17 Antibody Screen NEGATIVE 08/11/22 18:17 Crossmatch See Detail 08/11/22 18:17 Impressions Chest X-Ray 08/11/22 09:55 XR chest 1V portable HISTORY: 37 years-old Male f/u acute shortness of breath COMPARISON: Chest radiograph 08/08/2022, chest CT 08/05/20002009 TECHNIQUE: Portable AP view of the chest FINDINGS: Cardiac silhouette is enlarged. Tracheostomy cannula overlies the midline at the level the clavicular heads. No pneumothorax. Small left and possible trace right pleural effusions. Persistent bibasilar opacities appear stable. Bones appear grossly intact. IMPRESSION: 1. Cardiomegaly without pulmonary edema. 2. Small left and possible trace right pleural effusions with persistent bibasilar opacities. ACT 112: Negative or not required by law. The above report was generated using voice recognition software. It may contain grammatical, syntax or spelling errors. Electronically signed by: James Brody M.D. 08/11/2022 10:25 AM Abdomen/Pelvis CT 08/11/22 16:[address] WITH CONTRAST; CT abdomen and pelvis with IV contrast only CT DOSE: 1682.58 mGy.cm HISTORY: Follow up whole body scan in a patient with fever fever unknown origin TECHNIQUE: Multiaxial CT images of the chest, abdomen and pelvis were performed following the IV administration of 93 cc of Optiray. A dose lowering technique was utilized adhering to the principles of ALARA. COMPARISON: CT chest, abdomen and pelvis 08/05/2022 FINDINGS: CT CHEST: Tracheostomy cannula distal tip terminates at the level of the clavicular heads. Fluid within the airway proximal to the cannula. Mild tracheobronchial secretions. No thyroid nodule or lymphadenopathy. The heart is normal in size without pericardial effusion. No thoracic aortic aneurysm. Unremarkable pulmonary artery. Marked atrophy of the musculature redemonstrated. Small left and trace right pleural effusions. Dependent bibasilar consolidation. No pneumothorax. Mild patchy groundglass opacities throughout the right lung are new from prior. Unremarkable soft tissues. No acute fracture identified. Mild thoracolumbar compression deformities are again noted. CT ABDOMEN/PELVIS: No pneumatosis or pneumoperitoneum. Unremarkable spleen, gallbladder, and adrenal glands. Hepatic steatosis with mild right hemidiaphragmatic elevation. Patency of the hepatic and portal veins. The splenic vein is attenuated however is patent. There is persistent interstitial and peripancreatic inflammation which appears mildly worsened with increased amount of abdominal ascites. Peripancreatic fluid collections appear to be generally stable, with the largest measuring 3.8 cm adjacent to the pancreatic tail. Tiny fluid collections are again noted extending along the stomach and transverse colon. Embolization coils are noted adjacent to the distal stomach and pancreatic head. Gastrojejunostomy tube is in place. Persistent gastric wall thickening. 4 mm nonobstructing calculus of the superior pole left kidney. No ureteral calculi or hydronephrosis identified. Layering hyperdensity within the urinary bladder may represent stone fragments. Air-fluid level within the urinary bladder with diffuse wall thickening. Aorta and IVC appear unchanged. Periportal and precaval lymphadenopathy redemonstrated. There is marked diffuse muscle atrophy. No bowel obstruction or bowel wall thickening. Rectal catheter is in place. Normal appendix. No acute fracture. Demineralized appearance of the bones. IMPRESSION: 1. Small left and trace right pleural effusions with persistent bibasilar consolidation. 2. Progressively worsened acute pancreatitis with mildly increased amount of abdominal ascites. Numerous peripancreatic fluid collections appear to be generally stable from the exam obtained 6 days earlier. Sterility cannot be determined by imaging alone. 3. 4 mm left renal calculus. No ureteral calculi or hydronephrosis. 4. No bowel obstruction or bowel wall thickening. 5. Attenuated splenic vein without occlusion is similar to prior. 6. Upper abdominal lymphadenopathy is likely reactive. 7. Additional findings as above. ACT 112: Negative or not required by law. Dictated: 08/11/2022 6:09 PM Transcribed: 08/11/2022 6:37 PM [facility] [id number] [email or web address] Electronically signed by: James Brody M.D. 08/11/2022 6:[address] 08/11/22 16:[address] WITH CONTRAST; CT abdomen and pelvis with IV contrast only CT DOSE: 1682.58 mGy.cm HISTORY: Follow up whole body scan in a patient with fever fever unknown origin TECHNIQUE: Multiaxial CT images of the chest, abdomen and pelvis were performed following the IV administration of 93 cc of Optiray. A dose lowering technique was utilized adhering to the principles of ALARA. COMPARISON: CT chest, abdomen and pelvis 08/05/2022 FINDINGS: CT CHEST: Tracheostomy cannula distal tip terminates at the level of the clavicular heads. Fluid within the airway proximal to the cannula. Mild tracheobronchial secretions. No thyroid nodule or lymphadenopathy. The heart is normal in size without pericardial effusion. No thoracic aortic aneurysm. Unremarkable pulmonary artery. Marked atrophy of the musculature redemonstrated. Small left and trace right pleural effusions. Dependent bibasilar consolidation. No pneumothorax. Mild patchy groundglass opacities throughout the right lung are new from prior. Unremarkable soft tissues. No acute fracture identified. Mild thoracolumbar compression deformities are again noted. CT ABDOMEN/PELVIS: No pneumatosis or pneumoperitoneum. Unremarkable spleen, gallbladder, and adrenal glands. Hepatic steatosis with mild right hemidiaphragmatic elevation. Patency of the hepatic and portal veins. The splenic vein is attenuated however is patent. There is persistent interstitial and peripancreatic inflammation which appears mildly worsened with increased amount of abdominal ascites. Peripancreatic fluid collections appear to be generally stable, with the largest measuring 3.8 cm adjacent to the pancreatic tail. Tiny fluid collections are again noted extending along the stomach and transverse colon. Embolization coils are noted adjacent to the distal stomach and pancreatic head. Gastrojejunostomy tube is in place. Persistent gastric wall thickening. 4 mm nonobstructing calculus of the superior pole left kidney. No ureteral calculi or hydronephrosis identified. Layering hyperdensity within the urinary bladder may represent stone fragments. Air-fluid level within the urinary bladder with diffuse wall thickening. Aorta and IVC appear unchanged. Periportal and precaval lymphadenopathy redemonstrated. There is marked diffuse muscle atrophy. No bowel obstruction or bowel wall thickening. Rectal catheter is in place. Normal appendix. No acute fracture. Demineralized appearance of the bones. IMPRESSION: 1. Small left and trace right pleural effusions with persistent bibasilar consolidation. 2. Progressively worsened acute pancreatitis with mildly increased amount of abdominal ascites. Numerous peripancreatic fluid collections appear to be generally stable from the exam obtained 6 days earlier. Sterility cannot be determined by imaging alone. 3. 4 mm left renal calculus. No ureteral calculi or hydronephrosis. 4. No bowel obstruction or bowel wall thickening. 5. Attenuated splenic vein without occlusion is similar to prior. 6. Upper abdominal lymphadenopathy is likely reactive. 7. Additional findings as above. ACT 112: Negative or not required by law. Dictated: 08/11/2022 6:09 PM Transcribed: 08/11/2022 6:37 PM [facility] [id number] [email or web address] Electronically signed by: James Brody M.D. 08/11/2022 6:43 PM Venous Doppler Study 08/11/22 16:24 BILATERAL LOWER EXTREMITY VENOUS DOPPLER HISTORY: Acute pain and swelling of the lower legs r/o dvt COMPARISON STUDY: None. FINDINGS: There is normal compressibility, flow, and augmentation within the bilateral lower extremity deep venous systems. The common femoral and greater saphenous veins are not visualized secondary to overlying bandages. IMPRESSION: No DVT within the right or left lower extremity. ACT 112: Negative or not required by law. Electronically signed by: James Brody M.D. 08/11/2022 7:45 PM Medications Administered Current Inpatient Medications Acetaminophen (Acetaminophen 325 Mg Tab) 650 mg PO Q4H PRN PRN Reason: Pain or Fever Stop: 09/15/22 21:03 Last Admin: 08/16/22 21:19 Dose: 650 mg Albuterol (Albuterol 0.083% Nebu Soln 3 Ml Vial) 2.5 mg NEB Q6R PRN; Protocol PRN Reason: cough wheeze Stop: 09/05/22 00:03 Last Admin: 08/16/22 19:31 Dose: 2.5 mg Artificial Tears (Artificial Tears) 1 drops OP UD PRN PRN Reason: Dry Eye(S) Stop: 09/05/22 00:36 Last Admin: 08/10/22 18:35 Dose: 1 drops Artificial Tears (Artificial Tears) 1 drops OP QID MYNOR Stop: 09/05/22 08:59 Last Admin: 08/17/22 08:30 Dose: 1 drops Atropine Sulfate (Atropine Sulfate 1% Op Soln 5 Ml Btl) 1 drops SL QID PRN PRN Reason: increased secretions Stop: 09/05/22 00:05 Calamine/Phenol (Menthol-Zinc Oxide 360 Appln/120 Gm Tube) 1 appln EXT DAILY PRN PRN Reason: SKIN IRRITATION Stop: 09/10/22 19:14 Last Admin: 08/13/22 20:44 Dose: 1 appln Dextrose (Dextrose 50% 50 Ml Syringe) 25 - 50 ml IV UD PRN; Protocol PRN Reason: Hypoglycemia Protocol Stop: 09/06/22 10:59 Enoxaparin Sodium (Enoxaparin Inj 40 Mg/0.4 Ml Syr) 40 mg SQ QAM [facility] Stop: 09/05/22 08:59 Last Admin: 08/10/22 08:58 Dose: 40 mg Enteral Nutritional Formula (Peptamen 1.5 Cali 1,000 Ml Bag) 1,000 ml JT UD MYNOR; Protocol Stop: 09/05/22 10:59 Last Admin: 08/17/22 07:12 Dose: 1,000 ml Famotidine (Famotidine Susp 20 Mg/2.5 Ml Udp) 20 mg NG BID PRN PRN Reason: Indigestion Stop: 09/05/22 02:29 Glucagon (Glucagon For Inj 1 Mg Vial) 1 mg IM UD PRN; Protocol PRN Reason: Hypoglycemia Protocol Stop: 09/06/22 10:59 Glucose (Glucose 40% Gel 15 Gm Tube) 15 - 30 gm PO UD PRN; Protocol PRN Reason: Hypoglycemia Protocol Stop: 09/06/22 10:59 Glucose (Glucose 10 Tab/Tube) 4 - 8 tab PO UD PRN; Protocol PRN Reason: Hypoglycemia Protocol Stop: 09/06/22 10:59 Guaifenesin (Guaifenesin Sugar Free 100 Mg/5 Ml Udc) 200 mg GT BID PRN PRN Reason: Cough Stop: 09/05/22 00:05 Ceftriaxone Sodium 2,000 mg/ (Dextrose) 70 mls @ 100 mls/hr IV Q24H MYNOR; Protocol Stop: 08/18/22 14:59 Last Infusion: 08/16/22 14:52 Dose: Infused Magnesium Sulfate/Dextrose (Magnesium Sulfate / D5w) 1 gm in 100 mls @ 50 mls/hr IV ONE ONE Stop: 08/17/22 10:40 Insulin Aspart (Insulin Aspart Per Unit) 0 units SC Q6 MYNOR Stop: 09/06/22 11:59 Last Admin: 08/17/22 07:09 Dose: 4 units Lansoprazole (Lansoprazole 15 Mg Soltab) 15 mg PO DAILY MYNOR Stop: 09/05/22 08:59 Last Admin: 08/17/22 08:29 Dose: 15 mg Lidocaine (Lidocaine 5% Oint 30 Gm Tube) 1 appln TOP BID PRN PRN Reason: Pain Stop: 09/05/22 00:05 Melatonin (Melatonin 3 Mg Tab) 3 - 6 mg PO HS PRN PRN Reason: Sleep Stop: 09/05/22 00:05 Last Admin: 08/16/22 21:19 Dose: 6 mg Midodrine (Midodrine Hcl 2.5 Mg Tab) 5 mg PO TID@0800,1200,1800 MYNOR Stop: 09/05/22 00:29 Last Admin: 08/17/22 08:29 Dose: 5 mg Miscellaneous (Carbohydrates For Hypoglycemia ) 15 - 30 gm PO UD PRN PRN Reason: Hypoglycemia Treatment Stop: 09/06/22 10:59 Multi-Ingredient Cream (Artificial Tears Op Oint 3.5 Gm Tube) 1 appln OP HS MYNOR Stop: 09/05/22 00:05 Last Admin: 08/16/22 21:21 Dose: 1 appln Non-Formulary Medication (Zinc Oxide) 1 appln TOP TID MYNOR Stop: 09/05/22 08:59 Last Admin: 08/17/22 08:28 Dose: 1 appln Nystatin (Nystatin Powder 15gm Btl) 1 appln EXT DAILY PRN PRN Reason: Rash Stop: 09/05/22 00:05 Polyethylene Glycol (Polyethylene (Miralax) 17 Gm Pack) 17 gm PEG DAILY PRN PRN Reason: Constipation Stop: 09/05/22 00:05 Sodium Chloride (Sodium Chlor 7% 4 Ml Neb) 4 ml NEB BIDR MYNOR Stop: 09/05/22 18:59 Last Admin: 08/17/22 07:27 Dose: 4 ml Sterile Water (Tube Feeding Water Flush) 250 ml JT Q8H MYNOR Stop: 09/07/22 09:59 Last Admin: 08/17/22 02:50 Dose: 250 ml Tramadol HCl (Tramadol Hcl 50 Mg Tablet) 50 mg NG Q6H PRN PRN Reason: Pain Stop: 09/05/22 00:05 Last Admin: 08/17/22 03:47 Dose: 50 mg Vitamin D (Cholecalciferol 1,000 Units 25 Mcg Tab) 1,000 units JT DAILY MYNOR Stop: 09/05/22 08:59 Last Admin: 08/17/22 08:29 Dose: 1,000 units
[2022-08-17] MEDS ORDERED: POTASSIUM CHLORIDE 20 MEQ/15 ML UDC PO STA (11:49)
[2022-08-17] MEDS: cefTRIAXone SODIUM 2,000 MG in DEXTROSE 5% 50 ML IV SCH (15:22)
[2022-08-17] MEDS ORDERED: MoRPHine SULFATE 2 MG/ML CARP IV STA (20:47)
[2022-08-17] MEDS: ARTIFICIAL TEARS OP OINT 3.5 GM TUBE OP SCH (21:31)
[2022-08-17] MEDS: MELATONIN 3 MG TAB PO PRN (21:31)
[2022-08-18] MEDS: INSULIN ASPART PER UNIT SC SCH ×5 (01:27→23:50)
[2022-08-18] MEDS ORDERED: HYDROmorphone INJ 0.5 MG/0.5 ML SYR IV STA ×2 (02:23→23:03)
[2022-08-18] MEDS ORDERED: HYDROmorphone INJ 0.5 MG/0.5 ML SYR ONE ×2 (02:43→23:06)
[2022-08-18] MEDS: TUBE FEEDING WATER FLUSH JT SCH ×3 (03:31→19:09)
[2022-08-18] MEDS: PEPTAMEN 1.5 CAL 1,000 ML BAG JT SCH (03:33)
[2022-08-18] MEDS: traMADol HCL 50 MG TABLET NG PRN ×3 (06:04→18:34)
[2022-08-18] MEDS: SODIUM CHLOR 7% 4 ML NEB NEB SCH ×2 (07:41→19:36)
[2022-08-18] MEDS: MIDODRINE HCL 2.5 MG TAB PO SCH ×3 (07:49→19:09)
[2022-08-18] MEDS: ARTIFICIAL TEARS OP SCH ×4 (07:50→22:33)
[2022-08-18] MEDS: CHOLECALCIFEROL 1,000 UNITS 25 MCG TAB JT SCH (07:50)
[2022-08-18] MEDS: LANSOPRAZOLE 15 MG SOLTAB PO SCH (07:50)
[2022-08-18] MEDS: NON-FORMULARY MEDICATION (Zinc Oxide 20 % Ointment) TOP SCH ×3 (07:51→22:33)
[2022-08-18] MEDS ORDERED: cefTRIAXone SODIUM 350 MG/ML IM IM ONE (11:04)
--- NOTE | 2022-08-18 11:07 | Hospitalist Progress Note ---
Date of Service August 18, 2022 Assessment & Plan (1) Severe sepsis: Plan: Met sepsis criteria on admission with leukocytosis 27.5, febrile, lactate 3.9 and tachycardia -likely pulm source, +sputum culture Admission CT chest with possible pneumonia noted CT abd/pelvis showed resolving acute pancreatitis with decreased size of the numerous peripancreatic fluid collections suggestive of pseudocysts. sputum cx positive for staph aureus and klebsiella pna blood cx no growth Pt was started on caspofungin that was discontinued on 08/08 since cx no growth - Repeat CT abd/pelvis showed progressively worsened acute pancreatitis with mildly increased amount of abdominal ascites. Numerous peripancreatic fluid collections appear to be generally stable from the exam obtained 6 days earlier. - Repeat CT chest showed small left and trace right pleural effusions with persistent bibasilar consolidation. - WBC labile but steadily improving - Stool for C. difficile negative - was spiking fevers despite unasyn - ID consulted and thought to be drug fevers, changed to cefepime 08/13/2022 - with abdominal pain in setting of CT finding of worsening pancreatitis - repeat blood cx, urine cx pending and sputum cx with serratia galeano sensitive - not enough ascites for paracentesis - GI consulted and no intervention - continues to have fevers - give one more day of ceftriaxone today 08/18/2022 - will get fungal cultures, crypto serum, histo galactomanin - empiric treatment with caspofungin for now - Continue monitor closely (2) Fever of unknown origin: Plan: - CT-CAP negative for collection - DVT studies negative - repeat blood cultures negative - empiric treatment with abx for >14 days - will get fungal cultures - empiric treatment with caspofungin for now - follow up ID recs (3) Pseudocyst of pancreas: Plan: - initial CT with resolving acute pancreatitis with decreasing size of pseudocysts. - Repeat CT abd/pelvis showed progressively worsened acute pancreatitis with mildly increased amount of abdominal ascites. Numerous peripancreatic fluid collections appear to be generally stable from the exam obtained 6 days earlier. - radiology consulted for paracentesis diagnostic - not enough fluid for para at this time - no likely source of infection and too small to drain either way - continue abx as abobve (4) Abnormal LFTs: Plan: - likely related to sepsis-improved - CT A/P noted - monitor (5) Chronic respiratory failure: Plan: - wean to baseline vent settings per pulm - ventilator dependent. - at baseline at this time - reported air leak in trach and need for possible up-sizing - ENT consulted for trach evaluation (6) Electrolyte imbalance: Plan: - replete prn (7) ALS (amyotrophic lateral sclerosis): Plan: - bedbound with quadriplegia, has trach on vent. - continue vent support. - continue home riluzole (8) Left ventricular systolic dysfunction: Plan: - euvolemic, off IVF. - ontinues with free water flushes Plan DVT ppx- sc lovenox Code Status: Full Code Dispo: PCU Diogenes Rodrigues MD [facility] Medicine Admission and Anticipated Discharge Date Admission Date: August 05, 2022 Subjective Patient with ALS vent dependent presented with sepsis thought to be secondary to pulmonary source. Has been on antibiotics with unasyn for 10 days, switched to cefepime 08/13/2022 due to ongoing fevers thought to be drug fevers with unaysn. Repeat CT of abdomen pelvis showed worsening pancreatitis. GI consulted with no intervention. ID following and recommended abx change to cefepime, now narrowed to ceftriaxone through 08/17/2022 then will monitor off abx, per ID. Repeat cultures pending. Denies issues with breathing, coughing, chest pain. No fever >100.4 since 08/15/2022 1900. Review of Systems Review of Systems: All systems were reviewed and negative except as indicated above. Physical Exam Physical Exam: Constitutional: No acute distress HE ENT: SHERRON, posit precious trach Respirat ory system:Decrea sed air entry bila terally, no wheeze , no rhonchi, mild crackles bilatera l lower lobes CVS: S1-S2 positive, n o murmurs or leigh ps Abdomen: Soft, nontender, nondist ended, positive alondra wel sounds x4, pos itive G-J tube Ext remities: +2 pulse s bilaterally radi quan/ dorsalis ped is, no cyanosis,n o edema Neuro:Daisy ke alert oriented to self and place Psych:Normal mood and affect G/U:P ositive [place] [facility] [place]:Stage I-II decubitus ul cer Skin: no ra shes, warm and dry Lymphatic: no cervical or axi llary lymphadenopa thy Results & Data Results & Data ([facility]) Vital Signs (Past 12 Hours) Vital Signs Temp Pulse Resp BP Pulse Ox O2 Del Method FiO2 08/18/22 08:00 37.2 C 105 H 14 97 08/18/22 08:00 108/62 08/18/22 09:32 Mechanical Vent 30 08/18/22 08:00 30 08/18/22 08:00 93 H 08/18/22 07:30 104 H 14 99 30 08/18/22 06:00 37.3 C 89 14 97/59 L 100 08/18/22 04:00 37.2 C 86 14 96/59 L 99 08/18/22 04:18 30 08/18/22 03:55 85 14 100 30 08/18/22 00:00 98 H 08/18/22 00:00 30 08/18/22 02:00 37.3 C 94 H 13 113/76 99 08/18/22 00:00 37.2 C 106 H 14 102/68 99 08/17/22 23:24 103 H 14 99 30 Diagnostic Findings Laboratory Results WBC 12.00 K/ul (4.8-10.8) H 08/17/22 05:27 RBC 2.40 M/uL (4.63-6.08) L 08/17/22 05:27 Hgb 7.4 g/dl (14.0-18.0) L 08/17/22 05:27 POC Hgb 11.6 g/dl (14.0-18.0) L 08/05/22 20:50 Hct 22.4 % (40.1-51.0) L 08/17/22 05:27 POC Hct 34 % (42-52) L 08/05/22 20:50 MCV 93.3 fL (80.0-100.0) 08/17/22 05:27 MCH 30.8 pg (25.0-34.0) 08/17/22 05:27 MCHC 33.0 g/dL (32.0-36.0) 08/17/22 05:27 RDW Std Deviation 53.1 fL (36.4-46.3) H 08/17/22 05:27 RDW Coeff of Aissatou 16.0 % (11.5-14.5) H 08/17/22 05:27 Plt Count 449 K/uL (130-400) H 08/17/22 05:27 MPV 8.9 fL (9.4-12.4) L 08/17/22 05:27 Immature Gran % (Auto) 0.8 % 08/17/22 05:27 Neut % (Auto) 79.4 % 08/17/22 05:27 Lymph % (Auto) 13.1 % 08/17/22 05:27 [place] % (Auto) 5.5 % 08/17/22 05:27 Eos % (Auto) 1.1 % 08/17/22 05:27 Baso % (Auto) 0.1 % 08/17/22 05:27 Neut # (Auto) 9.53 K/uL (1.4-6.5) H 08/17/22 05:27 Lymph # (Auto) 1.57 K/uL (1.2-3.4) 08/17/22 05:27 [place] # (Auto) 0.66 K/uL (0.24-0.82) 08/17/22 05:27 Eos # (Auto) 0.13 K/uL (0-0.50) 08/17/22 05:27 Baso # (Auto) 0.01 K/uL (0-0.2) 08/17/22 05:27 Immature Gran # (Auto) 0.10 K/uL (0.00-0.02) H 08/17/22 05:27 RBC Morphology Unremarkable 08/11/22 05:40 Polychromasia 1+ 08/17/22 05:27 Poikilocytosis Present 08/17/22 05:27 Spherocytes Occasional 08/12/22 07:33 Peripher Smr Path Cons 08/11/22 16:42 PT 10.3 Seconds (9.0-12.0) 08/05/22 13:30 INR 1.0 (0.9-1.1) 08/05/22 13:30 APTT 27.7 Seconds (21.0-31.0) 08/05/22 13:30 PTT Ratio 1.0 08/05/22 13:30 Sample Site L Radial 08/09/22 09:20 POC pH 7.38 (7.35-7.45) 08/09/22 09:20 POC pCO2 41 mmHg (35-46) 08/09/22 09:20 POC pO2 115 mmHg (80-95) H 08/09/22 09:20 POC HCO3 24 allison/L (19-24) 08/09/22 09:20 POC Total CO2 26 mmol/L (24-31) 08/09/22 09:20 POC Base Excess -1.0 allison/L (-9-1.8) 08/09/22 09:20 ABG pH 7.65 (7.35-7.45) H* 08/05/22 15:07 ABG pCO2 23 mmHg (35-46) L 08/05/22 15:07 ABG pO2 94 mmHg (80-95) 08/05/22 15:07 ABG HCO3 25 mmol/L (19-24) H 08/05/22 15:07 POC ABG O2 Sat 98.0 % (90-95) H 08/09/22 09:20 ABG O2 Saturation 99.5 % (90-95) H 08/05/22 15:07 ABG Base Excess 5.9 mEq/L (-9-1.8) H 08/05/22 15:07 Praveen Test Pass 08/09/22 09:20 Oxygen Given 2L 08/05/22 15:07 O2 Delivery Device Ventilator 08/09/22 09:20 POC O2 Rate 14 08/09/22 09:20 POC FiO2 30 % 08/09/22 09:20 Tidal Volume 530 08/09/22 09:20 PEEP 6 08/09/22 09:20 POC Sodium 142 mmol/L (135-144) 08/05/22 20:50 Sodium 135 mmol/L (136-145) L 08/17/22 05:27 POC Potassium 2.3 mmol/L (3.3-5.0) L* 08/05/22 20:50 Potassium 3.7 mmol/L (3.5-5.1) 08/17/22 05:27 Chloride 102 mmol/L (98-107) 08/17/22 05:27 Carbon Dioxide 25 mmol/L (21-32) 08/17/22 05:27 Anion Gap 8 (3-11) 08/17/22 05:27 BUN 11 mg/dl (6-23) 08/17/22 05:27 Creatinine < 0.20 mg/dl (0.6-1.4) L 08/17/22 05:27 Est Cr Clr Drug Dosing 565.9 ml/min 08/17/22 05:27 Est GFR ( Amer) > 150.0 ml/min 08/17/22 05:27 Est GFR (Non-Af Amer) > 150.0 ml/min 08/17/22 05:27 BUN/Creatinine Ratio TNP 08/17/22 05:27 Glucose 128 mg/dl (70-99(Fasting)) H 08/17/22 05:27 POC Glucose 140 mg/dl (70-99) H 08/18/22 06:18 Lactate 1.9 mmol/L (0.4-2.0) 08/05/22 17:26 Calcium 8.7 mg/dl (8.5-10.1) 08/17/22 05:27 Phosphorus 2.6 mg/dl (2.5-4.9) 08/17/22 05:27 Magnesium 1.7 mg/dl (1.7-2.4) 08/17/22 05:27 Total Bilirubin 0.3 mg/dl (0.2-1.0) 08/13/22 05:37 Direct Bilirubin 0.2 mg/dl (0-0.2) 08/05/22 13:30 AST 37 U/L (13-39) 08/13/22 05:37 ALT 59 U/L (7-52) H 08/13/22 05:37 Alkaline Phosphatase 298 U/L (34-104) H 08/13/22 05:37 Troponin I High Sens 18.3 pg/ml (0-20) D 08/05/22 13:30 Total Protein 6.3 gm/dl (6.0-8.3) 08/13/22 05:37 Albumin 2.9 gm/dl (3.4-5.0) L 08/13/22 05:37 Globulin 3.4 gm/dl (2.5-4.0) 08/13/22 05:37 Albumin/Globulin Ratio 0.9 (0.9-2) 08/13/22 05:37 Lipase 135 U/L (11-82) H 08/05/22 13:30 Procalcitonin 1.28 ng/ml (0-0.5) H 08/05/22 13:30 Urine Color Yellow 08/05/22 16:50 Urine Appearance Clear (Clear) 08/05/22 16:50 Urine pH 5.0 (4.5-7.5) 08/05/22 16:50 Ur Specific [place] 1.016 (1.000-1.030) 08/05/22 16:50 Urine Protein 1+ (Negative) H 08/05/22 16:50 Urine Glucose (UA) Negative (Negative) 08/05/22 16:50 Urine Ketones Negative (Negative) 08/05/22 16:50 Urine Blood Negative (Negative) 08/05/22 16:50 Urine Nitrite Negative (Negative) 08/05/22 16:50 Urine Bilirubin Negative (Negative) 08/05/22 16:50 Urine Urobilinogen Negative (Negative) 08/05/22 16:50 Ur Leukocyte Esterase Negative (Negative) 08/05/22 16:50 Urine WBC (Auto) 1-5 /hpf (0-5) 08/05/22 16:50 Urine RBC (Auto) 5-10 /hpf (0-4) H 08/05/22 16:50 U Hyaline Cast (Auto) 5-10 /lpf (0-5) H 08/05/22 16:50 U Epithel Cells (Auto) 5-10 /lpf (0-5) H 08/05/22 16:50 Urine Bacteria (Auto) Negative (Negative) 08/05/22 16:50 Nasal Screen MRSA (PCR) Negative (Negative) 08/06/22 04:58 Stool Occult Bld Scrn Negative (Negative) 08/11/22 13:15 Stl C. diff Tox B Gene Negative Cdiff Gene (Neg) 08/11/22 03:00 Vancomycin Trough 36.9 mcg/ml (10-20) H* 08/07/22 03:54 SARS-CoV-2, RNA, NAAT NEGATIVE (NEGATIVE) 08/05/22 17:07 Blood Type O Positive 08/11/22 18:17 Antibody Screen NEGATIVE 08/11/22 18:17 Crossmatch See Detail 08/11/22 18:17 Impressions Chest X-Ray 08/11/22 09:55 XR chest 1V portable HISTORY: 37 years-old Male f/u acute shortness of breath COMPARISON: Chest radiograph 08/08/2022, chest CT 08/05/20002009 TECHNIQUE: Portable AP view of the chest FINDINGS: Cardiac silhouette is enlarged. Tracheostomy cannula overlies the midline at the level the clavicular heads. No pneumothorax. Small left and possible trace right pleural effusions. Persistent bibasilar opacities appear stable. Bones appear grossly intact. IMPRESSION: 1. Cardiomegaly without pulmonary edema. 2. Small left and possible trace right pleural effusions with persistent bibasilar opacities. ACT 112: Negative or not required by law. The above report was generated using voice recognition software. It may contain grammatical, syntax or spelling errors. Electronically signed by: James Brody M.D. 08/11/2022 10:25 AM Abdomen/Pelvis CT 08/11/22 16:[address] WITH CONTRAST; CT abdomen and pelvis with IV contrast only CT DOSE: 1682.58 mGy.cm HISTORY: Follow up whole body scan in a patient with fever fever unknown origin TECHNIQUE: Multiaxial CT images of the chest, abdomen and pelvis were performed following the IV administration of 93 cc of Optiray. A dose lowering technique was utilized adhering to the principles of ALARA. COMPARISON: CT chest, abdomen and pelvis 08/05/2022 FINDINGS: CT CHEST: Tracheostomy cannula distal tip terminates at the level of the clavicular heads. Fluid within the airway proximal to the cannula. Mild tracheobronchial secretions. No thyroid nodule or lymphadenopathy. The heart is normal in size without pericardial effusion. No thoracic aortic aneurysm. Unremarkable pulmonary artery. Marked atrophy of the musculature redemonstrated. Small left and trace right pleural effusions. Dependent bibasilar consolidation. No pneumothorax. Mild patchy groundglass opacities throughout the right lung are new from prior. Unremarkable soft tissues. No acute fracture identified. Mild thoracolumbar compression deformities are again noted. CT ABDOMEN/PELVIS: No pneumatosis or pneumoperitoneum. Unremarkable spleen, gallbladder, and adrenal glands. Hepatic steatosis with mild right hemidiaphragmatic elevation. Patency of the hepatic and portal veins. The splenic vein is attenuated however is patent. There is persistent interstitial and peripancreatic inflammation which appears mildly worsened with increased amount of abdominal ascites. Michell pancreatic fluid collections appear to be generally stable, with the largest measuring 3.8 cm adjacent to the pancreatic tail. Tiny fluid collections are again noted extending along the stomach and transverse colon. Embolization coils are noted adjacent to the distal stomach and pancreatic head. Gastrojejunostomy tube is in place. Persistent gastric wall thickening. 4 mm nonobstructing calculus of the superior pole left kidney. No ureteral calculi or hydronephrosis identified. Layering hyperdensity within the urinary bladder may represent stone fragments. Air-fluid level within the urinary bladder with diffuse wall thickening. Aorta and IVC appear unchanged. Periportal and precaval lymphadenopathy redemonstrated. There is marked diffuse muscle atrophy. No bowel obstruction or bowel wall thickening. Rectal catheter is in place. Normal appendix. No acute fracture. Demineralized appearance of the bones. IMPRESSION: 1. Small left and trace right pleural effusions with persistent bibasilar consolidation. 2. Progressively worsened acute pancreatitis with mildly increased amount of abdominal ascites. Numerous peripancreatic fluid collections appear to be generally stable from the exam obtained 6 days earlier. Sterility cannot be determined by imaging alone. 3. 4 mm left renal calculus. No ureteral calculi or hydronephrosis. 4. No bowel obstruction or bowel wall thickening. 5. Attenuated splenic vein without occlusion is similar to prior. 6. Upper abdominal lymphadenopathy is likely reactive. 7. Additional findings as above. ACT 112: Negative or not required by law. Dictated: 08/11/2022 6:09 PM Transcribed: 08/11/2022 6:37 PM [facility] [id number] [email or web address] Electronically signed by: James Brody M.D. 08/11/2022 6:[address] 08/11/22 16:[address] WITH CONTRAST; CT abdomen and pelvis with IV contrast only CT DOSE: 1682.58 mGy.cm HISTORY: Follow up whole body scan in a patient with fever fever unknown origin TECHNIQUE: Multiaxial CT images of the chest, abdomen and pelvis were performed following the IV administration of 93 cc of Optiray. A dose lowering technique was utilized adhering to the principles of ALARA. COMPARISON: CT chest, abdomen and pelvis 08/05/2022 FINDINGS: CT CHEST: Tracheostomy cannula distal tip terminates at the level of the clavicular heads. Fluid within the airway proximal to the cannula. Mild tracheobronchial secretions. No thyroid nodule or lymphadenopathy. The heart is normal in size without pericardial effusion. No thoracic aortic aneurysm. Unremarkable pu lmonary artery. Marked atrophy of the musculature redemonstrated. Small left and trace right pleural effusions. Dependent bibasilar consolidation. No pneumothorax. Mild patchy groundglass opacities throughout the right lung are new from prior. Unremarkable soft tissues. No acute fracture identified. Mild thoracolumbar compression deformities are again noted. CT ABDOMEN/PELVIS: No pneumatosis or pneumoperitoneum. Unremarkable spleen, gallbladder, and adrenal glands. Hepatic steatosis with mild right hemidiaphragmatic elevation. Patency of the hepatic and portal veins. The splenic vein is attenuated however is patent. There is persistent interstitial and peripancreatic inflammation which appears mildly worsened with increased amount of abdominal ascites. Peripancreatic fluid collections appear to be generally stable, with the largest measuring 3.8 cm adjacent to the pancreatic tail. Tiny fluid collections are again noted extending along the stomach and transverse colon. Embolization coils are noted adjacent to the distal stomach and pancreatic head. Gastrojejunostomy tube is in place. Persistent gastric wall thickening. 4 mm nonobstructing calculus of the superior pole left kidney. No ureteral calculi or hydronephrosis identified. Layering hyperdensity within the urinary bladder may represent stone fragments. Air-fluid level within the urinary bladder with diffuse wall thic kening. Aorta and IVC appear unchanged. Periportal and precaval lymphadenopathy redemonstrated. There is marked diffuse muscle atrophy. No bowel obstruction or bowel wall thickening. Rectal catheter is in place. Normal appendix. No acute fracture. Demineralized appearance of the bones. IMPRESSION: 1. Small left and trace right pleural effusions with persistent bibasilar consolidation. 2. Progressively worsened acute pancreatitis with mildly increased amount of abdominal ascites. Numerous peripancreatic fluid collections appear to be generally stable from the exam obtained 6 days earlier. Sterility cannot be determined by imaging alone. 3. 4 mm left renal calculus. No ureteral calculi or hydronephrosis. 4. No bowel obstruction or bowel wall thickening. 5. Attenuated splenic vein without occlusion is similar to prior. 6. Upper abdominal lymphadenopathy is likely reactive. 7. Additional findings as above. ACT 112: Negative or not required by law. Dictated: 08/11/2022 6:09 PM Transcribed: 08/11/2022 6:37 PM [facility] [id number] [email or web address] Electronically signed by: James Brody M.D. 08/11/2022 6:43 PM Venous Doppler Study 08/11/22 16:24 BILATERAL LOWER EXTREMITY VENOUS DOPPLER HISTORY: Acute pain and swelling of the lower legs r/o dvt COMPARISON STUDY: None. FINDINGS: There is normal compressibility, flow, and augmentation within the bilateral lower extremity deep venous systems. The common femoral and greater saphenous veins are not visualized secondary to overlying bandages. IMPRESSION: No DVT within the right or left lower extremity. ACT 112: Negative or not required by law. Electronically signed by: James Brody M.D. 08/11/2022 7:45 PM Medications Administered Current Inpatient Medications Acetaminophen (Acetaminophen 325 Mg Tab) 650 mg PO Q4H PRN PRN Reason: Pain or Fever Stop: 09/15/22 21:03 Last Admin: 08/16/22 21:19 Dose: 650 mg Albuterol (Albuterol 0.083% Nebu Soln 3 Ml Vial) 2.5 mg NEB Q6R PRN; Protocol PRN Reason: cough wheeze Stop: 09/05/22 00:03 Last Admin: 08/16/22 19:31 Dose: 2.5 mg Artificial Tears (Artificial Tears) 1 drops OP UD PRN PRN Reason: Dry Eye(S) Stop: 09/05/22 00:36 Last Admin: 08/10/22 18:35 Dose: 1 drops Artificial Tears (Artificial Tears) 1 drops OP QID MYNOR Stop: 09/05/22 08:59 Last Admin: 08/18/22 07:50 Dose: 1 drops Atropine Sulfate (Atropine Sulfate 1% Op Soln 5 Ml Btl) 1 drops SL QID PRN PRN Reason: increased secretions Stop: 09/05/22 00:05 Calamine/Phenol (Menthol-Zinc Oxide 360 Appln/120 Gm Tube) 1 appln EXT DAILY PRN PRN Reason: SKIN IRRITATION Stop: 09/10/22 19:14 Last Admin: 08/13/22 20:44 Dose: 1 appln Ceftriaxone Sodium (Ceftriaxone Sodium 350 Mg/Ml Im) 2,000 mg IM NOW ONE Stop: 08/18/22 11:05 Dextrose (Dextrose 50% 50 Ml Syringe) 25 - 50 ml IV UD PRN; Protocol PRN Reason: Hypoglycemia Protocol Stop: 09/06/22 10:59 Enoxaparin Sodium (Enoxaparin Inj 40 Mg/0.4 Ml Syr) 40 mg SQ QAM MYNOR Stop: 09/05/22 08:59 Last Admin: 08/10/22 08:58 Dose: 40 mg Enteral Nutritional Formula (Peptamen 1.5 Cali 1,000 Ml Bag) 1,000 ml JT UD MYNOR; Protocol Stop: 09/05/22 10:59 Last Admin: 08/18/22 03:33 Dose: 1,000 ml Famotidine (Famotidine Susp 20 Mg/2.5 Ml Udp) 20 mg NG BID PRN PRN Reason: Indigestion Stop: 09/05/22 02:29 Glucagon (Glucagon For Inj 1 Mg Vial) 1 mg IM UD PRN; Protocol PRN Reason: Hypoglycemia Protocol Stop: 09/06/22 10:59 Glucose (Glucose 40% Gel 15 Gm Tube) 15 - 30 gm PO UD PRN; Protocol PRN Reason: Hypoglycemia Protocol Stop: 09/06/22 10:59 Glucose (Glucose 10 Tab/Tube) 4 - 8 tab PO UD PRN; Protocol PRN Reason: Hypoglycemia Protocol Stop: 09/06/22 10:59 Guaifenesin (Guaifenesin Sugar Free 100 Mg/5 Ml Udc) 200 mg GT BID PRN PRN Reason: Cough Stop: 09/05/22 00:05 Insulin Aspart (Insulin Aspart Per Unit) 0 units SC Q6 MYNOR Stop: 09/06/22 11:59 Last Admin: 08/18/22 06:29 Dose: 4 units Lansoprazole (Lansoprazole 15 Mg Soltab) 15 mg PO DAILY [facility] Stop: 09/05/22 08:59 Last Admin: 08/18/22 07:50 Dose: 15 mg Lidocaine (Lidocaine 5% Oint 30 Gm Tube) 1 appln TOP BID PRN PRN Reason: Pain Stop: 09/05/22 00:05 Melatonin (Melatonin 3 Mg Tab) 3 - 6 mg PO HS PRN PRN Reason: Sleep Stop: 09/05/22 00:05 Last Admin: 08/17/22 21:31 Dose: 6 mg Midodrine (Midodrine Hcl 2.5 Mg Tab) 5 mg PO TID@0800,1200,1800 MYNOR Stop: 09/05/22 00:29 Last Admin: 08/18/22 07:49 Dose: 5 mg Miscellaneous (Carbohydrates For Hypoglycemia ) 15 - 30 gm PO UD PRN PRN Reason: Hypoglycemia Treatment Stop: 09/06/22 10:59 Multi-Ingredient Cream (Artificial Tears Op Oint 3.5 Gm Tube) 1 appln OP HS [facility] Stop: 09/05/22 00:05 Last Admin: 08/17/22 21:31 Dose: 1 appln Non-Formulary Medication (Zinc Oxide) 1 appln TOP TID [facility] Stop: 09/05/22 08:59 Last Admin: 08/18/22 07:51 Dose: 1 appln Nystatin (Nystatin Powder 15gm Btl) 1 appln EXT DAILY PRN PRN Reason: Rash Stop: 09/05/22 00:05 Polyethylene Glycol (Polyethylene (Miralax) 17 Gm Pack) 17 gm PEG DAILY PRN PRN Reason: Constipation Stop: 09/05/22 00:05 Sodium Chloride (Sodium Chlor 7% 4 Ml Neb) 4 ml NEB BIDR [facility] Stop: 09/05/22 18:59 Last Admin: 08/18/22 07:41 Dose: 4 ml Sterile Water (Tube Feeding Water Flush) 250 ml JT Q8H [facility] Stop: 09/07/22 09:59 Last Admin: 08/18/22 09:46 Dose: 250 ml Tramadol HCl (Tramadol Hcl 50 Mg Tablet) 50 mg NG Q6H PRN PRN Reason: Pain Stop: 09/05/22 00:05 Last Admin: 08/18/22 06:04 Dose: 50 mg Vitamin D (Cholecalciferol 1,000 Units 25 Mcg Tab) 1,000 units JT DAILY [facility] Stop: 09/05/22 08:59 Last Admin: 08/18/22 07:50 Dose: 1,000 units
[2022-08-18] MEDS ORDERED: cefTRIAXone SODIUM 2,000 MG in DEXTROSE 5% 50 ML IV STA (11:14)
[2022-08-18] MEDS ORDERED: cefTRIAXone SODIUM 2,000 MG in DEXTROSE 5% 50 ML IV ONE (12:00)
[2022-08-18] MEDS ORDERED: CASPOFUNGIN 70 MG in SODIUM CHLORIDE 0.9% 250 ML IV ONE (12:00)
[2022-08-18] MEDS: ARTIFICIAL TEARS OP OINT 3.5 GM TUBE OP SCH (22:33)
[2022-08-19] MEDS: TUBE FEEDING WATER FLUSH JT SCH ×3 (03:10→18:01)
[2022-08-19] MEDS: traMADol HCL 50 MG TABLET NG PRN (05:14)
[2022-08-19 05:56] LABS: Basophils # (auto) 0.03 K/uL (0-0.2); Basophils % (auto) 0.3 %; Eosinophils # (auto) 0.11 K/uL (0-0.50); Eosinophils % (auto) 1.1 %; Hematocrit (blood only) 24.8 % (40.1-51.0); Hemoglobin 8.1 g/dl (14.0-18.0); Lymphocytes # (auto) 1.86 K/uL (1.2-3.4); Lymphocytes % (auto) 17.8 %; Mean Corpuscular Hemoglobin 30.2 pg (25.0-34.0); Mean Corpuscular Hgb Conc 32.7 g/dL (32.0-36.0); Mean Corpuscular Volume 92.5 fL (80.0-100.0); Mean Platelet Volume 8.9 fL (9.4-12.4); Monocytes % (auto) 5.7 %; Neutrophils # (auto) 7.77 K/uL (1.4-6.5); Neutrophils % (auto) 74.1 %; Platelet Count 583 K/uL (130-400); RDW Coefficient of Variation 16.6 % (11.5-14.5); RDW Standard Deviation 53.5 fL (36.4-46.3); Red Blood Count 2.68 M/uL (4.63-6.08); White Blood Count 10.47 K/ul (4.8-10.8)
[2022-08-19 06:33] LABS: Alanine Aminotransferase 57 U/L (7-52); Albumin Level 3.6 gm/dl (3.4-5.0); Alkaline Phosphatase 325 U/L (34-104); Anion Gap 9 (3-11); Aspartate Aminotransferase 31 U/L (13-39); Bilirubin,Total 0.2 mg/dl (0.2-1.0); Blood Urea Nitrogen 12 mg/dl (6-23); Calcium 9.1 mg/dl (8.5-10.1); Carbon Dioxide 25 mmol/L (21-32); Chloride 104 mmol/L (98-107); Creatinine Clr Calc Pharmacy 565.9 ml/min; Est GFR (African American) > 150.0 ml/min; Est GFR (Non-African American) > 150.0 ml/min; Globulin 3.6 gm/dl (2.5-4.0); Glucose 127 mg/dl (70-99(Fasting)); Magnesium 1.7 mg/dl (1.7-2.4); Phosphorus 2.5 mg/dl (2.5-4.9); Potassium 3.7 mmol/L (3.5-5.1); Sodium 138 mmol/L (136-145); Total Protein 7.2 gm/dl (6.0-8.3)
[2022-08-19] MEDS: INSULIN ASPART PER UNIT SC SCH ×4 (07:11→23:44)
[2022-08-19] MEDS: SODIUM CHLOR 7% 4 ML NEB NEB SCH ×2 (07:27→19:55)
[2022-08-19] MEDS ORDERED: oxyCODONE HCL SOLN 5 MG/5 ML UDC PO PRN (07:42)
[2022-08-19] MEDS ORDERED: oxyCODONE HCL SOLN 5 MG/5 ML UDC GT PRN (07:43)
[2022-08-19] MEDS: CHOLECALCIFEROL 1,000 UNITS 25 MCG TAB JT SCH (08:31)
[2022-08-19] MEDS: MIDODRINE HCL 2.5 MG TAB PO SCH ×3 (08:32→18:27)
[2022-08-19] MEDS: LANSOPRAZOLE 15 MG SOLTAB PO SCH (08:32)
[2022-08-19] MEDS: ARTIFICIAL TEARS OP SCH ×4 (08:33→22:06)
[2022-08-19] MEDS ORDERED: CASPOFUNGIN 50 MG in SODIUM CHLORIDE 0.9% 250 ML IV SCH (09:00)
[2022-08-19] MEDS: NON-FORMULARY MEDICATION (Zinc Oxide 20 % Ointment) TOP SCH ×3 (09:03→22:09)
[2022-08-19] MEDS ORDERED: Nursing to Pharmacy Communication SCH (12:30)
--- NOTE | 2022-08-19 12:32 | Hospitalist Progress Note ---
Date of Service August 19, 2022 Assessment & Plan (1) Severe sepsis: Plan: Met sepsis criteria on admission with leukocytosis 27.5, febrile, lactate 3.9 and tachycardia -likely pulm source, +sputum culture Admission CT chest with possible pneumonia noted CT abd/pelvis showed resolving acute pancreatitis with decreased size of the numerous peripancreatic fluid collections suggestive of pseudocysts. sputum cx positive for staph aureus and klebsiella pna blood cx no growth Pt was started on caspofungin that was discontinued on 08/08 since cx no growth - Repeat CT abd/pelvis showed progressively worsened acute pancreatitis with mildly increased amount of abdominal ascites. Numerous peripancreatic fluid collections appear to be generally stable from the exam obtained 6 days earlier. - Repeat CT chest showed small left and trace right pleural effusions with persistent bibasilar consolidation. - WBC labile but steadily improving - Stool for C. difficile negative - was spiking fevers despite unasyn - ID consulted and thought to be drug fevers, changed to cefepime 08/13/2022 - with abdominal pain in setting of CT finding of worsening pancreatitis - repeat blood cx, urine cx pending and sputum cx with serratia galeano sensitive - not enough ascites for paracentesis - GI consulted and no intervention - s/p 15 days of abx - now off, only antifungal as below - will get fungal cultures, crypto serum, histo galactomanin - pending - empiric treatment with caspofungin for now - Continue monitor closely (2) Fever of unknown origin: Plan: - CT-CAP negative for collection - DVT studies negative - repeat blood cultures negative - empiric treatment with abx for >14 days - will get fungal cultures - empiric treatment with caspofungin for now - follow up ID recs (3) Pseudocyst of pancreas: Plan: - initial CT with resolving acute pancreatitis with decreasing size of pseudo cysts. - Repeat CT abd/pelvis showed progressively worsened acute pancreatitis with mildly increased amount of abdominal ascites. Numerous peripancreatic fluid collections appear to be generally stable from the exam obtained 6 days earlier. - radiology consulted for paracentesis diagnostic - not enough fluid for para at this time - no likely source of infection and too small to drain either way - s/p IV abx (4) Abnormal LFTs: Plan: - likely related to sepsis-improved - CT A/P noted - monitor (5) Chronic respiratory failure: Plan: - wean to baseline vent settings per pulm - ventilator dependent. - at baseline at this time - reported air leak in trach and need for possible up-sizing - ENT consulted for trach evaluation - has size 8 trach which is appropriate and will likely need trach replacement as cuff might be leaking - spoke with Dr. Giang and will plan for trach exchange in [place] Friday08/23/2022 (6) Electrolyte imbalance: Plan: - replete prn (7) ALS (amyotrophic lateral sclerosis): Plan: - bedbound with quadriplegia, has trach on vent. - continue vent support. - continue home riluzole (8) Left ventricular systolic dysfunction: Plan: - euvolemic, off IVF. - ontinues with free water flushes Plan DVT ppx- sc lovenox Code Status: Full Code Dispo: PCU Diogenes Rodrigues MD [facility] Medicine Admission and Anticipated Discharge Date Admission Date: August 05, 2022 Subjective Patient with ALS vent dependent presented with sepsis thought to be secondary to pulmonary source. Has been on antibiotics with unasyn for 10 days, switched to cefepime 08/13/2022 due to ongoing fevers thought to be drug fevers with unaysn. Repeat CT of abdomen pelvis showed worsening pancreatitis. GI consulted with no intervention. ID following and recommended abx change to cefepime, now narrowed to ceftriaxone through 08/17/2022 then will monitor off abx, per ID. Repeat cultures pending. Denies issues with breathing, coughing, chest pain. started on caspofungin and fungal cultures sent for persistent fevers - afebrile 24 hours now. Has back pain when being moved. Review of Systems Review of Systems: All systems were reviewed and negative except as indicated above. Physical Exam Physical Exam: Constitutional: No acute distress HE ENT: [place] [facility] trach Respirat ory system:Decrea sed air entry bila terally, no wheeze , no rhonchi, mild crackles bilatera l lower lobes CVS: S1-S2 positive, n o murmurs or leigh ps Abdomen: Soft, nontender, nondist ended, positive alondra wel sounds x4, pos itive G-J tube Ext remities: +2 pulse s bilaterally radi quan/ dorsalis ped is, no cyanosis,n o edema Neuro:Daisy ke alert oriented to self and place Psych:Normal mood and affect G/U:P ositive [facility] uloskeletal:Stage I-II decubitus ul cer Skin: no ra shes, warm and dry Lymphatic: no cervical or axi llary lymphadenopa thy Results & Data Results & Data ([facility]) Vital Signs (Past 12 Hours) Vital Signs Temp Pulse Resp BP Pulse Ox FiO2 08/19/22 11:47 92 H 14 100 30 08/19/22 08:00 37.6 C H 108 H 12 97 08/19/22 08:00 110/70 08/19/22 08:16 86 14 100 30 08/19/22 07:00 95 H 08/19/22 06:00 37.5 C 94 H 14 102/58 L 99 08/19/22 04:00 37.7 C H 96 H 14 101/64 100 08/19/22 03:45 92 H 15 99 30 08/19/22 04:17 30 08/19/22 02:00 37.7 C H 97 H 14 94/57 L 100 08/19/22 01:00 30 08/19/22 01:00 98 H Diagnostic Findings Laboratory Results WBC 10.47 K/ul (4.8-10.8) 08/19/22 05:39 RBC 2.68 M/uL (4.63-6.08) L 08/19/22 05:39 Hgb 8.1 g/dl (14.0-18.0) L 08/19/22 05:39 POC Hgb 11.6 g/dl (14.0-18.0) L 08/05/22 20:50 Hct 24.8 % (40.1-51.0) L 08/19/22 05:39 POC Hct 34 % (42-52) L 08/05/22 20:50 MCV 92.5 fL (80.0-100.0) 08/19/22 05:39 MCH 30.2 pg (25.0-34.0) 08/19/22 05:39 MCHC 32.7 g/dL (32.0-36.0) 08/19/22 05:39 RDW Std Deviation 53.5 fL (36.4-46.3) H 08/19/22 05:39 RDW Coeff of Aissatou 16.6 % (11.5-14.5) H 08/19/22 05:39 Plt Count 583 K/uL (130-400) H 08/19/22 05:39 MPV 8.9 fL (9.4-12.4) L 08/19/22 05:39 Immature Gran % (Auto) 1.0 % 08/19/22 05:39 Neut % (Auto) 74.1 % 08/19/22 05:39 Lymph % (Auto) 17.8 % 08/19/22 05:39 Preston % (Auto) 5.7 % 08/19/22 05:39 Eos % (Auto) 1.1 % 08/19/22 05:39 Baso % (Auto) 0.3 % 08/19/22 05:39 Neut # (Auto) 7.77 K/uL (1.4-6.5) H 08/19/22 05:39 Lymph # (Auto) 1.86 K/uL (1.2-3.4) 08/19/22 05:39 Preston # (Auto) 0.60 K/uL (0.24-0.82) 08/19/22 05:39 Eos # (Auto) 0.11 K/uL (0-0.50) 08/19/22 05:39 Baso # (Auto) 0.03 K/uL (0-0.2) 08/19/22 05:39 Immature Gran # (Auto) 0.10 K/uL (0.00-0.02) H 08/19/22 05:39 RBC Morphology Unremarkable 08/11/22 05:40 Polychromasia 1+ 08/17/22 05:27 Poikilocytosis Present 08/17/22 05:27 Spherocytes Occasional 08/12/22 07:33 Peripher Smr Path Cons 08/11/22 16:42 PT 10.3 Seconds (9.0-12.0) 08/05/22 13:30 INR 1.0 (0.9-1.1) 08/05/22 13:30 APTT 27.7 Seconds (21.0-31.0) 08/05/22 13:30 PTT Ratio 1.0 08/05/22 13:30 Sample Site L Radial 08/09/22 09:20 POC pH 7.38 (7.35-7.45) 08/09/22 09:20 POC pCO2 41 mmHg (35-46) 08/09/22 09:20 POC pO2 115 mmHg (80-95) H 08/09/22 09:20 POC HCO3 24 allison/L (19-24) 08/09/22 09:20 POC Total CO2 26 mmol/L (24-31) 08/09/22 09:20 POC Base Excess -1.0 allison/L (-9-1.8) 08/09/22 09:20 ABG pH 7.65 (7.35-7.45) H* 08/05/22 15:07 ABG pCO2 23 mmHg (35-46) L 08/05/22 15:07 ABG pO2 94 mmHg (80-95) 08/05/22 15:07 ABG HCO3 25 mmol/L (19-24) H 08/05/22 15:07 POC ABG O2 Sat 98.0 % (90-95) H 08/09/22 09:20 ABG O2 Saturation 99.5 % (90-95) H 08/05/22 15:07 ABG Base Excess 5.9 mEq/L (-9-1.8) H 08/05/22 15:07 Praveen Test Pass 08/09/22 09:20 Oxygen Given 2L 08/05/22 15:07 O2 Delivery Device Ventilator 08/09/22 09:20 POC O2 Rate 14 08/09/22 09:20 POC FiO2 30 % 08/09/22 09:20 Tidal Volume 530 08/09/22 09:20 PEEP 6 08/09/22 09:20 POC Sodium 142 mmol/L (135-144) 08/05/22 20:50 Sodium 138 mmol/L (136-145) 08/19/22 05:39 POC Potassium 2.3 mmol/L (3.3-5.0) L* 08/05/22 20:50 Potassium 3.7 mmol/L (3.5-5.1) 08/19/22 05:39 Chloride 104 mmol/L (98-107) 08/19/22 05:39 Carbon Dioxide 25 mmol/L (21-32) 08/19/22 05:39 Anion Gap 9 (3-11) 08/19/22 05:39 BUN 12 mg/dl (6-23) 08/19/22 05:39 Creatinine < 0.20 mg/dl (0.6-1.4) L 08/19/22 05:39 Est Cr Clr Drug Dosing 565.9 ml/min 08/19/22 05:39 Est GFR ( Amer) > 150.0 ml/min 08/19/22 05:39 Est GFR (Non-Af Amer) > 150.0 ml/min 08/19/22 05:39 BUN/Creatinine Ratio TNP 08/19/22 05:39 Glucose 127 mg/dl (70-99(Fasting)) H 08/19/22 05:39 POC Glucose 133 mg/dl (70-99) H 08/19/22 11:27 Lactate 1.9 mmol/L (0.4-2.0) 08/05/22 17:26 Calcium 9.1 mg/dl (8.5-10.1) 08/19/22 05:39 Phosphorus 2.5 mg/dl (2.5-4.9) 08/19/22 05:39 Magnesium 1.7 mg/dl (1.7-2.4) 08/19/22 05:39 Total Bilirubin 0.2 mg/dl (0.2-1.0) 08/19/22 05:39 Direct Bilirubin 0.2 mg/dl (0-0.2) 08/05/22 13:30 AST 31 U/L (13-39) 08/19/22 05:39 ALT 57 U/L (7-52) H 08/19/22 05:39 Alkaline Phosphatase 325 U/L (34-104) H 08/19/22 05:39 Troponin I High Sens 18.3 pg/ml (0-20) D 08/05/22 13:30 Total Protein 7.2 gm/dl (6.0-8.3) 08/19/22 05:39 Albumin 3.6 gm/dl (3.4-5.0) 08/19/22 05:39 Globulin 3.6 gm/dl (2.5-4.0) 08/19/22 05:39 Albumin/Globulin Ratio 1.0 (0.9-2) 08/19/22 05:39 Lipase 135 U/L (11-82) H 08/05/22 13:30 Procalcitonin 1.28 ng/ml (0-0.5) H 08/05/22 13:30 Urine Color Yellow 08/05/22 16:50 Urine Appearance Clear (Clear) 08/05/22 16:50 Urine pH 5.0 (4.5-7.5) 08/05/22 16:50 Ur Specific [place] 1.016 (1.000-1.030) 08/05/22 16:50 Urine Protein 1+ (Negative) H 08/05/22 16:50 Urine Glucose (UA) Negative (Negative) 08/05/22 16:50 Urine Ketones Negative (Negative) 08/05/22 16:50 Urine Blood Negative (Negative) 08/05/22 16:50 Urine Nitrite Negative (Negative) 08/05/22 16:50 Urine Bilirubin Negative (Negative) 08/05/22 16:50 Urine Urobilinogen Negative (Negative) 08/05/22 16:50 Ur Leukocyte Esterase Negative (Negative) 08/05/22 16:50 Urine WBC (Auto) 1-5 /hpf (0-5) 08/05/22 16:50 Urine RBC (Auto) 5-10 /hpf (0-4) H 08/05/22 16:50 U Hyaline Cast (Auto) 5-10 /lpf (0-5) H 08/05/22 16:50 U Epithel Cells (Auto) 5-10 /lpf (0-5) H 08/05/22 16:50 Urine Bacteria (Auto) Negative (Negative) 08/05/22 16:50 Nasal Screen MRSA (PCR) Negative (Negative) 08/06/22 04:58 Stool Occult Bld Scrn Negative (Negative) 08/11/22 13:15 Stl C. diff Tox B Gene Negative Cdiff Gene (Neg) 08/11/22 03:00 Vancomycin Trough 36.9 mcg/ml (10-20) H* 08/07/22 03:54 SARS-CoV-2, RNA, NAAT NEGATIVE (NEGATIVE) 08/05/22 17:07 Blood Type O Positive 08/11/22 18:17 Antibody Screen NEGATIVE 08/11/22 18:17 Crossmatch See Detail 08/11/22 18:17 Impressions Chest X-Ray 08/11/22 09:55 XR chest 1V portable HISTORY: 37 years-old Male f/u acute shortness of breath COMPARISON: Chest radiograph 08/08/2022, chest CT 08/05/20002009 TECHNIQUE: Portable AP view of the chest FINDINGS: Cardiac silhouette is enlarged. Tracheostomy cannula overlies the midline at the level the clavicular heads. No pneumothorax. Small left and possible trace right pleural effusions. Persistent bibasilar opacities appear stable. Bones appear grossly intact. IMPRESSION: 1. Cardiomegaly without pulmonary edema. 2. Small left and possible trace right pleural effusions with persistent bibasilar opacities. ACT 112: Negative or not required by law. The above report was generated using voice recognition software. It may contain grammatical, syntax or spelling errors. Electronically signed by: James Brody M.D. 08/11/2022 10:25 AM Abdomen/Pelvis CT 08/11/22 16:[address] WITH CONTRAST; CT abdomen and pelvis with IV contrast only CT DOSE: 1682.58 mGy.cm HISTORY: Follow up whole body scan in a patient with fever fever unknown origin TECHNIQUE: Multiaxial CT images of the chest, abdomen and pelvis were performed following the IV administration of 93 cc of Optiray. A dose lowering technique was utilized adhering to the principles of ALARA. COMPARISON: CT chest, abdomen and pelvis 08/05/2022 FINDINGS: CT CHEST: Tracheostomy cannula distal tip terminates at the level of the clavicular heads. Fluid within the airway proximal to the cannula. Mild tracheobronchial secretions. No thyroid nodule or lymphadenopathy. The heart is normal in size without pericardial effusion. No thoracic aortic aneurysm. Unremarkable pulmonary artery. Marked atrophy of the musculature redemonstrated. Small left and trace right pleural effusions. Dependent bibasilar consolidation. No pneumothorax. Mild patchy groundglass opacities throughout the right lung are new from prior. Unremarkable soft tissues. No acute fracture identified. Mild thoracolumbar compression deformities are again noted. CT ABDOMEN/PELVIS: No pneumatosis or pneumoperitoneum. Unremarkable spleen, gallbladder, and adrenal glands. Hepatic steatosis with mild right hemidiaphragmatic elevation. Patency of the hepatic and portal veins. The splenic vein is attenuated however is patent. There is persistent interstitial and peripancreatic inflammation which appears mildly worsened with increased amount of abdominal ascites. Peripancreatic fluid collections appear to be generally stable, with the largest measuring 3.8 cm adjacent to the pancreatic tail. Tiny fluid collections are again noted extending along the stomach and transverse colon. Embolization coils are noted adjacent to the distal stomach and pancreatic head. Gastrojejunostomy tube is in place. Persistent gastric wall thickening. 4 mm nonobstructing calculus of the superior pole left kidney. No ureteral calculi or hydronephrosis identified. Layering hyperdensity within the urinary bladder may represent stone fragments. Air-fluid level within the urinary bladder with diffuse wall thickening. Aorta and IVC appear unchanged. Periportal and precaval lymphad enopathy redemonstrated. There is marked diffuse muscle atrophy. No bowel obstruction or bowel wall thickening. Rectal catheter is in place. Normal appendix. No acute fracture. Demineralized appearance of the bones. IMPRESSION: 1. Small left and trace right pleural effusions with persistent bibasilar consolidation. 2. Progressively worsened acute pancreatitis with mildly increased amount of abdominal ascites. Numerous peripancreatic fluid collections appear to be generally stable from the exam obtained 6 days earlier. Sterility cannot be determined by imaging alone. 3. 4 mm left renal calculus. No ureteral calculi or hydronephrosis. 4. No bowel obstruction or bowel wall thickening. 5. Attenuated splenic vein without occlusion is similar to prior. 6. Upper abdominal lymphadenopathy is likely reactive. 7. Additional findings as above. ACT 112: Negative or not required by law. Dictated: 08/11/2022 6:09 PM Transcribed: 08/11/2022 6:37 PM Yane [id number] [email or web address] Electronically signed by: James Brody M.D. 08/11/2022 6:[address] 08/11/22 16:[address] WITH CONTRAST; CT abdomen and pelvis with IV contrast only CT DOSE: 1682.58 mGy.cm HISTORY: Follow up whole body scan in a patient with fever fever unknown origin TECHNIQUE: Multiaxial CT images of the chest, abdomen and pelvis were performed following the IV administration of 93 cc of Optiray. A dose lowering technique was utilized adhering to the principles of ALARA. COMPARISON: CT chest, abdomen and pelvis 08/05/2022 FINDINGS: CT CHEST: Tracheostomy cannula distal tip terminates at the level of the clavicular heads. Fluid within the airway proximal to the cannula. Mild tracheobronchial secretions. No thyroid nodule or lymphadenopathy. The heart is normal in size without pericardial effusion. No thoracic aortic aneurysm. Unremarkable pulmonary artery. Marked atrophy of the musculature redemonstrated. Small left and trace right pleural effusions. Dependent bibasilar consolidation. No pneumothorax. Mild patchy groundglass opacities throughout the right lung are new from prior. Unremarkable soft tissues. No acute fracture identified. Mild thoracolumbar compression deformities are again noted. CT ABDOMEN/PELVIS: No pneumatosis or pneumoperitoneum. Unremarkable spleen, gallbladder, and adrenal glands. Hepatic steatosis with mild right hemidiaphragmatic elevation. Patency of the hepatic and portal veins. The splenic vein is attenuated however is patent. There is persistent interstitial and peripancreatic inflammation whi ch appears mildly worsened with increased amount of abdominal ascites. Peripancreatic fluid collections appear to be generally stable, with the largest measuring 3.8 cm adjacent to the pancreatic tail. Tiny fluid collections are again noted extending along the stomach and transverse colon. Embolization coils are noted adjacent to the distal stomach and pancreatic head. Gastrojejunostomy tube is in place. Persistent gastric wall thickening. 4 mm nonobstructing calculus of the superior pole left kidney. No ureteral calculi or hydronephrosis identified. Layering hyperdensity within the urinary bladder may represent stone fragments. Air-fluid level within the urinary bladder with diffuse wall thickening. Aorta and IVC appear unchanged. Periportal and precaval lymphadenopathy redemonstrated. There is marked diffuse muscle atrophy. No bowel obstruction or bowel wall thickening. Rectal catheter is in place. Normal appendix. No acute fracture. Demineralized appearance of the bones. IMPRESSION: 1. Small left and trace right pleural effusions with persistent bibasilar consolidation. 2. Progressively worsened acute pancreatitis with mildly increased amount of abdominal ascites. Numerous peripancreatic fluid collections appear to be generally stable from the exam obtained 6 days earlier. Sterility cannot be determined by imaging alone. 3. 4 mm left renal calculus. No ureteral calculi or hydronephrosis. 4. No bowel obstruction or bowel wall thickening. 5. Attenuated splenic vein without occlusion is similar to prior. 6. Upper abdominal lymphadenopathy is likely reactive. 7. Additional findings as above. ACT 112: Negative or not required by law. Dictated: 08/11/2022 6:09 PM Transcribed: 08/11/2022 6:37 PM Yane [id number] [email or web address] Electronically signed by: James Brody M.D. 08/11/2022 6:43 PM Venous Doppler Study 08/11/22 16:24 BILATERAL LOWER EXTREMITY VENOUS DOPPLER HISTORY: Acute pain and swelling of the lower legs r/o dvt COMPARISON STUDY: None. FINDINGS: There is normal compressibility, flow, and augmentation within the bilateral lower extremity deep venous systems. The common femoral and greater saphenous veins are not visualized secondary to overlying bandages. IMPRESSION: No DVT within the right or left lower extremity. ACT 112: Negative or not required by law. Electronically signed by: James Brody M.D. 08/11/2022 7:45 PM Medications Administered Current Inpatient Medications Acetaminophen (Acetaminophen 325 Mg Tab) 650 mg PO Q4H PRN PRN Reason: Pain or Fever Stop: 09/15/22 21:03 Last Admin: 08/16/22 21:19 Dose: 650 mg Albuterol (Albuterol 0.083% Nebu Soln 3 Ml Vial) 2.5 mg NEB Q6R PRN; Protocol PRN Reason: cough wheeze Stop: 09/05/22 00:03 Last Admin: 08/16/22 19:31 Dose: 2.5 mg Artificial Tears (Artificial Tears) 1 drops OP UD PRN PRN Reason: Dry Eye(S) Stop: 09/05/22 00:36 Last Admin: 08/10/22 18:35 Dose: 1 drops Artificial Tears (Artificial Tears) 1 drops OP QID MYNOR Stop: 09/05/22 08:59 Last Admin: 08/19/22 12:01 Dose: 1 drops Atropine Sulfate (Atropine Sulfate 1% Op Soln 5 Ml Btl) 1 drops SL QID PRN PRN Reason: increased secretions Stop: 09/05/22 00:05 Calamine/Phenol (Menthol-Zinc Oxide 360 Appln/120 Gm Tube) 1 appln EXT DAILY P RN PRN Reason: SKIN IRRITATION Stop: 09/10/22 19:14 Last Admin: 08/13/22 20:44 Dose: 1 appln Dextrose (Dextrose 50% 50 Ml Syringe) 25 - 50 ml IV UD PRN; Protocol PRN Reason: Hypoglycemia Protocol Stop: 09/06/22 10:59 Enoxaparin Sodium (Enoxaparin Inj 40 Mg/0.4 Ml Syr) 40 mg SQ QAM MYNOR Stop: 09/05/22 08:59 Last Admin: 08/10/22 08:58 Dose: 40 mg Enteral Nutritional Formula (Peptamen 1.5 Cali 1,000 Ml Bag) 1,000 ml JT UD MYNOR; Protocol Stop: 09/05/22 10:59 Last Admin: 08/18/22 03:33 Dose: 1,000 ml Famotidine (Famotidine Susp 20 Mg/2.5 Ml Udp) 20 mg NG BID PRN PRN Reason: Indigestion Stop: 09/05/22 02:29 Glucagon (Glucagon For Inj 1 Mg Vial) 1 mg IM UD PRN; Protocol PRN Reason: Hypoglycemia Protocol Stop: 09/06/22 10:59 Glucose (Glucose 40% Gel 15 Gm Tube) 15 - 30 gm PO UD PRN; Protocol PRN Reason: Hypoglycemia Protocol Stop: 09/06/22 10:59 Glucose (Glucose 10 Tab/Tube) 4 - 8 tab PO UD PRN; Protocol PRN Reason: Hypoglycemia Protocol Stop: 09/06/22 10:59 Guaifenesin (Guaifenesin Sugar Free 100 Mg/5 Ml Udc) 200 mg GT BID PRN PRN Reason: Cough Stop: 09/05/22 00:05 Caspofungin 50 mg/ Sodium (Chloride) 257.1429 mls @ 257.143 mls/hr IV DAILY MYNOR Stop: 08/21/22 08:59 Last Infusion: 08/19/22 09:36 Dose: Infused Insulin Aspart (Insulin Aspart Per Unit) 0 units SC Q6 MYNOR Stop: 09/06/22 11:59 Last Admin: 08/19/22 11:30 Dose: 4 units Lansoprazole (Lansoprazole 15 Mg Soltab) 15 mg PO DAILY MYNOR Stop: 09/05/22 08:59 Last Admin: 08/19/22 08:32 Dose: 15 mg Lidocaine (Lidocaine 5% Oint 30 Gm Tube) 1 appln TOP BID PRN PRN Reason: Pain Stop: 09/05/22 00:05 Melatonin (Melatonin 3 Mg Tab) 3 - 6 mg PO HS PRN PRN Reason: Sleep Stop: 09/05/22 00:05 Last Admin: 08/17/22 21:31 Dose: 6 mg Midodrine (Midodrine Hcl 2.5 Mg Tab) 5 mg PO TID@0800,1200,1800 MYNOR Stop: 09/05/22 00:29 Last Admin: 08/19/22 11:36 Dose: 5 mg Miscellaneous (Carbohydrates For Hypoglycemia ) 15 - 30 gm PO UD PRN PRN Reason: Hypoglycemia Treatment Stop: 09/06/22 10:59 Miscellaneous Information (Nursing To Pharmacy Communication) 1 each N/A TODAY [facility] Stop: 09/18/22 12:29 Multi-Ingredient Cream (Artificial Tears Op Oint 3.5 Gm Tube) 1 appln OP HS [facility] Stop: 09/05/22 00:05 Last Admin: 08/18/22 22:33 Dose: Not Given Non-Formulary Medication (Zinc Oxide) 1 appln TOP TID MYNOR Stop: 09/05/22 08:59 Last Admin: 08/19/22 09:03 Dose: 1 appln Nystatin (Nystatin Powder 15gm Btl) 1 appln EXT DAILY PRN PRN Reason: Rash Stop: 09/05/22 00:05 Oxycodone HCl (Oxycodone Hcl Soln 5 Mg/5 Ml Udc) 5 mg GT Q6 PRN PRN Reason: Pain Stop: 09/02/22 07:41 Polyethylene Glycol (Polyethylene (Miralax) 17 Gm Pack) 17 gm PEG DAILY PRN PRN Reason: Constipation Stop: 09/05/22 00:05 Sodium Chloride (Sodium Chlor 7% 4 Ml Neb) 4 ml NEB BIDR [facility] Stop: 09/05/22 18:59 Last Admin: 08/19/22 07:27 Dose: 4 ml Sterile Water (Tube Feeding Water Flush) 250 ml JT Q8H MYNOR Stop: 09/07/22 09:59 Last Admin: 08/19/22 09:03 Dose: 250 ml Tramadol HCl (Tramadol Hcl 50 Mg Tablet) 50 mg NG Q6H PRN PRN Reason: Pain Stop: 09/05/22 00:05 Last Admin: 08/19/22 05:14 Dose: 50 mg Vitamin D (Cholecalciferol 1,000 Units 25 Mcg Tab) 1,000 units JT DAILY [facility] Stop: 09/05/22 08:59 Last Admin: 08/19/22 08:31 Dose: 1,000 units
--- NOTE | 2022-08-19 12:40 | Infectious Disease Progress Nt ---
Date of Service August 19, 2022 Assessment & Plan (1) Fever: (2) Pancreatitis: (3) Pseudocyst of pancreas: (4) Chronic respiratory failure: (5) Ascites: Plan Assessment: 37-year-old male, past medical history of left ventricular systolic dysfunction, chronic pancreatitis with pancreatic pseudocyst, ALS, bedbound with quadriplegia, status post trach and feeding tube, who presented to the ED on 08/05/2022 for lethargy. ID consulted for fevers. Problem List: 1. Tracheostomy dependent, Pneumonia 2. Chronic Pancreatitis with pseudocyst, fluid collections, ascites 3. Fevers- resolved 4. ALS, quadraplegia 5. R eye blepharitis Admitted with concern for infection per pt's due to lethargy, increased trach site drainage and increased SOB although no noted change in vent settings- noted to have leukocytosis, elevated lactate, relative HENRI on admission. CT scan chest with b/l consolidation and opacities suggestive of PNA vs. aspiration. 08/05 Sputum cx with MSSA and Klebsiella R only to cefazolin. 08/05 Bcxs NGTD 08/06 Fungal Bcx pending. 08/06 MRSA screen negative, pt had been on zosyn. empiric vanco stopped due to negative MRSA screen. Caspofungin added empirically 08/06 given risk for candidemia. diarrhea noted 08/08, but appeared c/w TF and no BMs 08/09 to date, R eye blepharitis noted. WBC improved, Fevers continued until 08/13. Afebrile for > 24 hours with a T max 37.7. Repeat CT C/A/P 08/11: persistent bibasilar consolidation. 2.Progressively worsened acute pancreatitis with mildly increased amount of abdominal ascites. Numerous peripancreatic fluid collections appear to be generally stable from the exam obtained 6 days earlier. Discussion: Patient initially admitted for pneumonia growing sensitive species MSSA, Klebsiella). He was narrowed to Unasyn. Clinically, his respiratory status has improved. His fever curve had worsened despite improved leukocytosis. Unclear Etiology- included drug fever to Unasyn, so was discontinued and Cefepime started. GI was onsulted regarding his pancreatitis and fluid collections. No intervention On 08/14, his abdominal CT imaging was reviewwe with Radiologist, Dr. Brody. His overall pancreatitis and pancreatic fluid collections have improved. There was a slight worsening of pancreatitis from 08/05 to 08/11 but sig improved from 06/2022. In addition fluid collections are very small and do not appear drainable. He then grew Serratia (no resistance) in sputum which can be a colonizer. In light of his fever and new Serratia growth, a 5 day course of therapy from 08/13-08/17 was added. He was narrowed to Ceftriaxone which he completed on 08/17. He has now been afebrile for > 24 hours. Caspufungin was added by primary team empirically over the weekend. Recommend: Completed Ceftriaxone on 08/17-completed 17 days of antibiotic therapy ( including additional serratia coverage for 5 days ) on 08/17. He has normal WBC and fevers have resolved ( t max 37.7). Would discontinue Caspofungin. There is no evidence of fungal infection. Cryptococcal ag and histo ag results pending, but if positive caspofungin would not cover these organisms. Monitor off antibiotics. Follow up crypto and histo ag. Sharif De Leon MD, [facility], [facility] Connect 30min spent charting on patient. - Admission and Anticipated Discharge Date Admission Date: August 05, 2022 Subjective This patient recommendation is based on a telemedicine consult request which was completed asynchronously through chart review and information provided by the primary physician. The patient was not seen or examined today. The evaluation is consultative in nature and all patient care and treatment decisions can either be accepted or rejected by the patient's primary hospital-based treating physician using their own independent medical judgment for their patient. He is afebrile. T max in the last 24 hour at 37.7 . No acute event overnight. Primary team restarted caspufungin. Physical Exam Physical Exam: N/A - econsult Results & Data ([facility]) Vital Signs (Past 12 Hours) Vital Signs Temp Pulse Resp BP Pulse Ox FiO2 08/19/22 11:47 92 H 14 100 30 08/19/22 08:00 37.6 C H 108 H 12 97 08/19/22 08:00 110/70 08/19/22 08:16 86 14 100 30 08/19/22 07:00 95 H 08/19/22 06:00 37.5 C 94 H 14 102/58 L 99 08/19/22 04:00 37.7 C H 96 H 14 101/64 100 08/19/22 03:45 92 H 15 99 30 08/19/22 04:17 30 08/19/22 02:00 37.7 C H 97 H 14 94/57 L 100 08/19/22 01:00 30 08/19/22 01:00 98 H Laboratory Results Microbiology 08/13/22 12:44 Blood Aerobic Blood Culture - Final No growth in Aerobic bottle after 5 days. 08/13/22 12:44 Blood Anaerobic Blood Culture - Final No growth in Anaerobic bottle after 5 days. 08/13/22 12:48 Blood Aerobic Blood Culture - Final No growth in Aerobic bottle after 5 days. 08/13/22 12:48 Blood Anaerobic Blood Culture - Final 08/18/22 11:27 Blood Fungal Smear - Final 08/06/22 09:33 Blood Fungal Smear - Final 08/06/22 09:33 Blood Fungal Culture - Preliminary No yeast or fungus isolated - Report 2, Additional report to follow. 08/13/22 17:38 Urine,Indwelling Cath Urine Culture - Final No growth - less than 1,000 colonies/mL. 08/13/22 16:00 Sputum,Trach Gram Stain - Final 08/13/22 16:00 Sputum,Trach Sputum Culture - Final Serratia marcescens 08/05/22 17:26 Blood Aerobic Blood Culture - Final No growth in Aerobic bottle after 5 days. 08/05/22 17:26 Blood Anaerobic Blood Culture - Final 08/05/22 15:00 Blood Aerobic Blood Culture - Final No growth in Aerobic bottle after 5 days. 08/05/22 15:00 Blood Anaerobic Blood Culture - Final No growth in Anaerobic bottle after 5 days. 08/05/22 14:30 Sputum,Trach Gram Stain - Final 08/05/22 14:30 Sputum,Trach Sputum Culture - Final Staphylococcus aureus Klebsiella pneumoniae Short CBC 08/19/22 Range/Units 05:39 WBC 10.47 (4.8-10.8) K/ul Hgb 8.1 L (14.0-18.0) g/dl Hct 24.8 L (40.1-51.0) % Plt Count 583 H (130-400) K/uL BMP 08/19/22 05:39 Sodium 138 Potassium 3.7 Chloride 104 Carbon Dioxide 25 BUN 12 Creatinine < 0.20 L Glucose 127 H Calcium 9.1 Liver Function 10/17/22 Range/Units 05:39 Total Bilirubin 0.2 (0.2-1.0) mg/dl AST 31 (13-39) U/L ALT 57 H (7-52) U/L Alkaline Phosphatase 325 H (34-104) U/L Albumin 3.6 (3.4-5.0) gm/dl :
--- NOTE | 2022-08-19 13:46 | Critical Care Progress Note ---
Date of Service August 19, 2022 Assessment & Plan (1) Ventilator dependence: (2) ALS (amyotrophic lateral sclerosis): Plan Attending: Dr. Patton Impression: 37-year-old male vent dependent due to ALS admitted with sepsis found to have sensitive Klebsiella growing from tracheal aspirate as well as methicillin sensitive staph. Antibiotics are being dictated by infectious disease. He initially had some issues with his trach last night. There was no leak however the patient felt that he needed to be upsized. This morning the symptoms have resolved. Recommendations: 1. Ventilator dependence due to ALS: Continue current vent settings. The patient appears to be oxygenating and ventilating well. 2. Acute purulent tracheitis: Afebrile. No purulence around the trach insertion site. Klebsiella and methicillin sensitive staph aureus. Has completed 17 days of antibiotics under the direction of ID. Currently awaiting cryptococcus ag and histo ag results. Empirically started on caspofungin over the weekend. Please refer to ID note from today 3. Tracheostomy in place. ENT consulted and states that size 8 is appropriate. Will continue to follow for respiratory/ventilator issues. Patient is stable. We will see every other day and as needed going forward. Please call [phone] with urgent questions Admission and Anticipated Discharge Date Admission Date: August 05, 2022 Subjective Attending: Dr. Patton Patient seen and examined in room 111. He was able to communicate with his board synthesizer and computer pad. He is complaining about his bedsores hurting. This was addressed with nursing staff. We will premedicate the patient and then will him to manage skin care and document. And then reposition. He reports his breathing is without difficulty. He had some difficulty with his trach cough last night has not needed frequent adjustment to adjust airleak. At the time of my examination there is no audible air leak. A irleak on the mechanical ventilator is listed as 0%. Plateau is 24.3. Tidal volume is 560. There are no concerns with his ventilator at the time of my examination. Patient denies fever, chills, sweats, rigors. He has no pain at the tracheostomy os. He does have sensation to his lower extremities but no pain today. He denies any other acute complaints at this time. Review of Systems Review of Systems: A total of 10 systems was reviewed and is negative other than as listed in the HPI Physical Exam Physical Exam: GENERAL : No acute distress. EYES: No icterus, gaze conjugate NOSE: No evidence of epistaxis MOUTH: No lesions or candidiasis NECK: Supple. Tracheostomy is in place with no audible air leak LUNGS: CTA B/L, no wheezes, rales or rhonchi. Due to ALS patient is dependent on rate control from ventilator. He does not appear to be dyssynchronous HEART: Regular, rate controlled ABDOMEN: Soft, NT, ND, BS Present EXTREMITIES: Bilateral trace LE edema, pedal pulses intact and equal bila terally. Feet are warm. NEURO: Awake and alert. Able to use computer pad for communication adequately. Results & Data Results & Data ([facility]) Vital Signs (Past 12 Hours) Vital Signs Temp Pulse Resp BP Pulse Ox FiO2 08/19/22 11:47 92 H 14 100 30 08/19/22 08:00 37.6 C H 108 H 12 97 08/19/22 08:00 110/70 08/19/22 08:16 86 14 100 30 08/19/22 07:00 95 H 08/19/22 06:00 37.5 C 94 H 14 102/58 L 99 08/19/22 04:00 37.7 C H 96 H 14 101/64 100 08/19/22 03:45 92 H 15 99 30 08/19/22 04:17 30 08/19/22 02:00 37.7 C H 97 H 14 94/57 L 100 Critical Care Results & Data Vital Signs (Past 12 Hours) Vital Signs Temp Pulse Resp BP Pulse Ox FiO2 08/19/22 11:47 92 H 14 100 30 08/19/22 08:00 37.6 C H 108 H 12 97 08/19/22 08:00 110/70 08/19/22 08:16 86 14 100 30 08/19/22 07:00 95 H 08/19/22 06:00 37.5 C 94 H 14 102/58 L 99 08/19/22 04:00 37.7 C H 96 H 14 101/64 100 08/19/22 03:45 92 H 15 99 30 08/19/22 04:17 30 08/19/22 02:00 37.7 C H 97 H 14 94/57 L 100 Lab & Micro Results (Past 24 Hours) RBC 2.68 M/uL (4.63-6.08) L 08/19/22 WBC 10.47 K/ul (4.8-10.8) 08/19/22 Hgb 8.1 g/dl (14.0-18.0) L 08/19/22 Hct 24.8 % (40.1-51.0) L 08/19/22 MCV 92.5 fL (80.0-100.0) 08/19/22 MCH 30.2 pg (25.0-34.0) 08/19/22 MCHC 32.7 g/dL (32.0-36.0) 08/19/22 RDW Standard Deviation 53.5 fL (36.4-46.3) H 08/19/22 RDW Coefficient of Variation 16.6 % (11.5-14.5) H 08/19/22 Plt Count 583 K/uL (130-400) H 08/19/22 MPV 8.9 fL (9.4-12.4) L 08/19/22 Neutrophils (%) (Auto) 74.1 % 08/19/22 Lymphocytes (%) (Auto) 17.8 % 08/19/22 Monocytes # (Auto) 0.60 K/uL (0.24-0.82) 08/19/22 Eosinophils # (Auto) 0.11 K/uL (0-0.50) 08/19/22 Immature Granulocyte % (Auto) 1.0 % 08/19/22 Neutrophils # (Auto) 7.77 K/uL (1.4-6.5) H 08/19/22 Lymphocytes # (Auto) 1.86 K/uL (1.2-3.4) 08/19/22 Monocytes # (Auto) 0.60 K/uL (0.24-0.82) 08/19/22 Eosinophils # (Auto) 0.11 K/uL (0-0.50) 08/19/22 Basophils # (Auto) 0.03 K/uL (0-0.2) 08/19/22 Immature Granulocyte # (Auto) 0.10 K/uL (0.00-0.02) H 08/19 Na 138 mmol/L (136-145) 08/19/22 K 3.7 mmol/L (3.5-5.1) 08/19/22 Cl 104 mmol/L (98-107) 08/19/22 CO2 25 mmol/L (21-32) 08/19/22 Anion Gap 9 (3-11) 08/19/22 BUN 12 mg/dl (6-23) 08/19/22 Creatinine < 0.20 mg/dl (0.6-1.4) L 08/19/22 Estimated GFR ( Amer) > 150.0 ml/min 08/19/22 Estimated GFR (Non-Af Amer) > 150.0 ml/min 08/19/22 BUN/Creatinine Ratio TNP 08/19/22 Glu 127 mg/dl (70-99(Fasting)) H 08/19/22 Ca 9.1 mg/dl (8.5-10.1) 08/19/22 Phosphorus Level 2.5 mg/dl (2.5-4.9) 08/19/22 Total Bilirubin 0.2 mg/dl (0.2-1.0) 08/19/22 AST 31 U/L (13-39) 08/19/22 ALT 57 U/L (7-52) H 08/19/22 Alkaline Phosphatase 325 U/L (34-104) H 08/19/22 TP 7.2 gm/dl (6.0-8.3) 08/19/22 Albumin 3.6 gm/dl (3.4-5.0) 08/19/22 Globulin 3.6 gm/dl (2.5-4.0) 08/19/22 Albumin/Globulin Ratio 1.0 (0.9-2) 08/19/22 Mg 1.7 mg/dl (1.7-2.4) 08/19/22 05:39 Calcium Level 9.1 mg/dl (8.5-10.1) 08/19/22 05:39 Microbiology 08/13/22 12:44 Aerobic Blood Culture - Final Blood No growth in Aerobic bottle after 5 days. Anaerobic Blood Culture - Final No growth in Anaerobic bottle after 5 days. 08/13/22 12:48 Aerobic Blood Culture - Final Blood No growth in Aerobic bottle after 5 days. Anaerobic Blood Culture - Final 08/18/22 11:27 Fungal Smear - Final Blood I & O Totals 24 Hours 08/18/22 08/19/22 08/20/22 06:59 06:59 06:59 Intake Total 2450 / 2450 1421 / 1654 530.4334 / 507.1429 Output Total 1551 / 1551 1600 / 1600 140 / 140 Balance 899 / 899 -179 / -884 241.9796 / 367.1429 Cumulative 08/05/22 13:57 thru 08/19/22 09:36 Intake Total 79061.8099 Output Total 05531 Balance 7596.8099 RT Ventilator Mngmt (Last Documented) Ventilator Ordered Settings Ventilator Support Mode Assist Control 08/19/22 11:47 Respiratory Rate 14 08/19/22 11:47 Ventilator Tidal Volume 560 08/19/22 11:47 Setting Minute Ventilation 11.2 08/19/22 11:47 Ventilator Positive Pressure 6 08/16/22 15:10 Support Setting Positive End Expiratory 6 08/19/22 11:47 Pressure Fraction of Inspired Oxygen 30 08/19/22 11:47 Peak Inspiratory Flow 45 08/16/22 02:25 Machine Comment patient requested cuff pressure 08/17/22 15:52 to be at [id number] Ventilator - PT Measurements Respiratory Rate 14 Exhaled Tidal Volume 560 Minute Ventilation 11.2 Peak Inspiratory Airway 25 Pressure Plateau Pressure 16.6 Respiratory Cycle Inspiratory: 1:3.3 Expiratory Ratio Inspiratory Phase Time 1.0 End-Tidal CO2 40 Static Lung Compliance 52.83 Dynamic Lung Compliance 29.47 Normal Static Lung Compliance 47.00 Patient Measurements Comment Inspiratory and expiratory bacterial filters changed at this time. Coding Level of Care Code 58297 Subseq Hosp Care Lvl 2 Diagnoses Ventilator dependence Z99.11 ALS (amyotrophic lateral sclerosis) G12.21
[2022-08-19] MEDS: HYDROmorphone INJ 0.5 MG/0.5 ML SYR IV PRN (17:05)
[2022-08-19] MEDS: PEPTAMEN 1.5 CAL 1,000 ML BAG JT SCH (18:27)
[2022-08-19] MEDS ORDERED: LACTATED RINGER'S 1,000 ML IV ONE (18:44)
[2022-08-19] MEDS: ARTIFICIAL TEARS OP OINT 3.5 GM TUBE OP SCH (22:08)
[2022-08-20] MEDS: TUBE FEEDING WATER FLUSH JT SCH ×3 (03:01→17:15)
[2022-08-20] MEDS: traMADol HCL 50 MG TABLET NG PRN ×2 (03:38→11:25)
[2022-08-20] MEDS: INSULIN ASPART PER UNIT SC SCH ×2 (06:01→12:07)
[2022-08-20] MEDS: HYDROmorphone HCL 2 MG TAB PO PRN ×3 (06:49→23:37)
[2022-08-20] MEDS: HYDROmorphone INJ 0.5 MG/0.5 ML SYR IV PRN ×2 (07:46→20:56)
[2022-08-20] MEDS: MIDODRINE HCL 2.5 MG TAB PO SCH ×3 (07:48→17:07)
[2022-08-20] MEDS: LANSOPRAZOLE 15 MG SOLTAB PO SCH (07:49)
[2022-08-20] MEDS: CHOLECALCIFEROL 1,000 UNITS 25 MCG TAB JT SCH (07:49)
[2022-08-20] MEDS: ARTIFICIAL TEARS OP SCH ×4 (07:50→20:55)
[2022-08-20] MEDS: NON-FORMULARY MEDICATION (Zinc Oxide 20 % Ointment) TOP SCH ×3 (07:50→20:55)
[2022-08-20] MEDS: SODIUM CHLOR 7% 4 ML NEB NEB SCH ×2 (08:03→19:40)
--- NOTE | 2022-08-20 11:08 | Hospitalist Progress Note ---
Date of Service August 20, 2022 Assessment & Plan (1) Severe sepsis: Plan: Met sepsis criteria on admission with leukocytosis 27.5, febrile, lactate 3.9 and tachycardia -likely pulm source, +sputum culture Admission CT chest with possible pneumonia noted CT abd/pelvis showed resolving acute pancreatitis with decreased size of the numerous peripancreatic fluid collections suggestive of pseudocysts. sputum cx positive for staph aureus and klebsiella pna blood cx no growth - Repeat CT abd/pelvis showed progressively worsened acute pancreatitis with mildly increased amount of abdominal ascites. Numerous peripancreatic fluid col lections appear to be generally stable from the exam obtained 6 days earlier. - Repeat CT chest showed small left and trace right pleural effusions with persistent bibasilar consolidation. - WBC labile but steadily improving - Stool for C. difficile negative - was spiking fevers despite unasyn - ID consulted and thought to be drug fevers, changed to cefepime 08/13/2022 - with abdominal pain in setting of CT finding of worsening pancreatitis - repeat blood cx, urine cx pending and sputum cx with serratia galeano sensitive - not enough ascites for paracentesis - GI consulted and no intervention - s/p 17 days of abx - now off since 08/18/2022 - fungal stain with no evidence of fungal infection - caspofungin stopped by ID - will continue to monitor off antimicrobials - Continue monitor closely (2) Chronic respiratory failure: Plan: - wean to baseline vent settings per pulm - ventilator dependent. - at baseline at this time - reported air leak in trach and need for possible up-sizing - ENT consulted for trach evaluation - has size 8 trach which is appropriate and will likely need trach replacement as cuff might be leaking - spoke with Dr. Giang and will plan for trach exchange in [place] Friday08/23/2022 - family ok with plan (3) Pseudocyst of pancreas: Plan: - initial CT with resolving acute pancreatitis with decreasing size of pseudocysts. - Repeat CT abd/pelvis showed progressively worsened acute pancreatitis with mildly increased amount of abdominal ascites. Numerous peripancreatic fluid collections appear to be generally stable from the exam obtained 6 days earlier. - radiology consulted for paracentesis diagnostic - not enough fluid for para at this time - no likely source of infection and too small to drain either way - s/p IV abx (4) Abnormal LFTs: Plan: - likely related to sepsis-improved - CT A/P noted - monitor (5) Electrolyte imbalance: Plan: - replete prn (6) ALS (amyotrophic lateral sclerosis): Plan: - bedbound with quadriplegia, has trach on vent. - continue vent support. - continue home riluzole (7) Left ventricular systolic dysfunction: Plan: - euvolemic, off IVF. - ontinues with free water flushes Plan DVT ppx- sc lovenox Code Status: Full Code Dispo: PCU Diogenes Rodrigues MD Hospital Medicine Admission and Anticipated Discharge Date Admission Date: August 05, 2022 Subjective Patient with ALS vent dependent presented with sepsis thought to be secondary to pulmonary source. Has been on antibiotics with unasyn for 10 days, switched to cefepime 08/13/2022 due to ongoing fevers thought to be drug fevers with unaysn. Repeat CT of abdomen pelvis showed worsening pancreatitis. GI consulted with no intervention. ID following and recommended abx change to cefepime, now narrowed to ceftriaxone through 08/17/2022 then will monitor off abx, per ID. Repeat cultures NGTD. Patient has been afebrile more than 24 hours now. ENT evaluated for possible trach upsize but patient has appropriate size (size 8) and will need trach replacement due to cuff leak - planned for Friday08/23/2022 in [place] with ENT. Denies issues with breathing, coughing, chest pain. Caspofungin stopped by ID due to no evidence of fungal infection - afebrile >24hrs at this point. Review of Systems Review of Systems: All systems were reviewed and negative except as indicated above. Physical Exam Physical Exam: Constitutional: No acute distress HE ENT: [place] [facility] trach Respirat ory system:Decrea sed air entry bila terally, no wheeze , no rhonchi, mild crackles bilatera l lower lobes CVS: S1-S2 positive, n o murmurs or leigh ps Abdomen: Soft, nontender, nondist ended, positive alondra wel sounds x4, pos itive G-J tube Ext remities: +2 pulse s bilaterally radi quan/ dorsalis ped is, no cyanosis,n o edema Neuro:Daisy ke alert oriented to self and place Psych:Normal mood and affect G/U:P ositive [place] [facility] [place]Stage I-II decubitus ul cer Skin: no ra shes, warm and dry Lymphatic: no cervical or axi llary lymphadenopa thy Results & Data Results & Data ([facility]) Vital Signs (Past 12 Hours) Vital Signs Temp Pulse Resp BP Pulse Ox O2 Del Method FiO2 08/20/22 07:27 37.5 C 97 H 19 115/68 100 Mechanical Vent 30 08/20/22 07:16 37.5 C 85 14 99/57 L 100 Mechanical Vent 30 08/20/22 08:00 Mechanical Vent 30 08/20/22 08:00 30 08/20/22 08:00 87 08/20/22 08:06 96 H 15 98 30 08/20/22 06:00 37.4 C 96 H 14 114/65 100 08/20/22 04:00 37.5 C 104 H 12 116/64 99 08/20/22 02:25 37.5 C 92 H 14 113/62 100 08/20/22 04:00 30 08/20/22 02:50 92 H 14 99 30 08/20/22 02:00 37.3 C 95 H 14 113/62 100 08/20/22 00:02 37.3 C 94 H 14 97/64 L 98 08/20/22 01:56 30 08/20/22 01:56 96 H Diagnostic Findings Laboratory Results WBC 10.47 K/ul (4.8-10.8) 08/19/22 05:39 RBC 2.68 M/uL (4.63-6.08) L 08/19/22 05:39 Hgb 8.1 g/dl (14.0-18.0) L 08/19/22 05:39 POC Hgb 11.6 g/dl (14.0-18.0) L 08/05/22 20:50 Hct 24.8 % (40.1-51.0) L 08/19/22 05:39 POC Hct 34 % (42-52) L 08/05/22 20:50 MCV 92.5 fL (80.0-100.0) 08/19/22 05:39 MCH 30.2 pg (25.0-34.0) 08/19/22 05:39 MCHC 32.7 g/dL (32.0-36.0) 08/19/22 05:39 RDW Std Deviation 53.5 fL (36.4-46.3) H 08/19/22 05:39 RDW Coeff of Aissatou 16.6 % (11.5-14.5) H 08/19/22 05:39 Plt Count 583 K/uL (130-400) H 08/19/22 05:39 MPV 8.9 fL (9.4-12.4) L 08/19/22 05:39 Immature Gran % (Auto) 1.0 % 08/19/22 05:39 Neut % (Auto) 74.1 % 08/19/22 05:39 Lymph % (Auto) 17.8 % 08/19/22 05:39 [place] % (Auto) 5.7 % 08/19/22 05:39 Eos % (Auto) 1.1 % 08/19/22 05:39 Baso % (Auto) 0.3 % 08/19/22 05:39 Neut # (Auto) 7.77 K/uL (1.4-6.5) H 08/19/22 05:39 Lymph # (Auto) 1.86 K/uL (1.2-3.4) 08/19/22 05:39 [place] # (Auto) 0.60 K/uL (0.24-0.82) 08/19/22 05:39 Eos # (Auto) 0.11 K/uL (0-0.50) 08/19/22 05:39 Baso # (Auto) 0.03 K/uL (0-0.2) 08/19/22 05:39 Immature Gran # (Auto) 0.10 K/uL (0.00-0.02) H 08/19/22 05:39 RBC Morphology Unremarkable 08/11/22 05:40 Polychromasia 1+ 08/17/22 05:27 Poikilocytosis Present 08/17/22 05:27 Spherocytes Occasional 08/12/22 07:33 Peripher Smr Path Cons 08/11/22 16:42 PT 10.3 Seconds (9.0-12.0) 08/05/22 13:30 INR 1.0 (0.9-1.1) 08/05/22 13:30 APTT 27.7 Seconds (21.0-31.0) 08/05/22 13:30 PTT Ratio 1.0 08/05/22 13:30 Sample Site L Radial 08/09/22 09:20 POC pH 7.38 (7.35-7.45) 08/09/22 09:20 POC pCO2 41 mmHg (35-46) 08/09/22 09:20 POC pO2 115 mmHg (80-95) H 08/09/22 09:20 POC HCO3 24 allison/L (19-24) 08/09/22 09:20 POC Total CO2 26 mmol/L (24-31) 08/09/22 09:20 POC Base Excess -1.0 allison/L (-9-1.8) 08/09/22 09:20 ABG pH 7.65 (7.35-7.45) H* 08/05/22 15:07 ABG pCO2 23 mmHg (35-46) L 08/05/22 15:07 ABG pO2 94 mmHg (80-95) 08/05/22 15:07 ABG HCO3 25 mmol/L (19-24) H 08/05/22 15:07 POC ABG O2 Sat 98.0 % (90-95) H 08/09/22 09:20 ABG O2 Saturation 99.5 % (90-95) H 08/05/22 15:07 ABG Base Excess 5.9 mEq/L (-9-1.8) H 08/05/22 15:07 Praveen Test Pass 08/09/22 09:20 Oxygen Given 2L 08/05/22 15:07 O2 Delivery Device Ventilator 08/09/22 09:20 POC O2 Rate 14 08/09/22 09:20 POC FiO2 30 % 08/09/22 09:20 Tidal Volume 530 08/09/22 09:20 PEEP 6 08/09/22 09:20 POC Sodium 142 mmol/L (135-144) 08/05/22 20:50 Sodium 138 mmol/L (136-145) 08/19/22 05:39 POC Potassium 2.3 mmol/L (3.3-5.0) L* 08/05/22 20:50 Potassium 3.7 mmol/L (3.5-5.1) 08/19/22 05:39 Chloride 104 mmol/L (98-107) 08/19/22 05:39 Carbon Dioxide 25 mmol/L (21-32) 08/19/22 05:39 Anion Gap 9 (3-11) 08/19/22 05:39 BUN 12 mg/dl (6-23) 08/19/22 05:39 Creatinine < 0.20 mg/dl (0.6-1.4) L 08/19/22 05:39 Est Cr Clr Drug Dosing 565.9 ml/min 08/19/22 05:39 Est GFR ( Amer) > 150.0 ml/min 08/19/22 05:39 Est GFR (Non-Af Amer) > 150.0 ml/min 08/19/22 05:39 BUN/Creatinine Ratio TNP 08/19/22 05:39 Glucose 127 mg/dl (70-99(Fasting)) H 08/19/22 05:39 POC Glucose 123 mg/dl (70-99) H 08/20/22 05:43 Lactate 1.9 mmol/L (0.4-2.0) 08/05/22 17:26 Calcium 9.1 mg/dl (8.5-10.1) 08/19/22 05:39 Phosphorus 2.5 mg/dl (2.5-4.9) 08/19/22 05:39 Magnesium 1.7 mg/dl (1.7-2.4) 08/19/22 05:39 Total Bilirubin 0.2 mg/dl (0.2-1.0) 08/19/22 05:39 Direct Bilirubin 0.2 mg/dl (0-0.2) 08/05/22 13:30 AST 31 U/L (13-39) 08/19/22 05:39 ALT 57 U/L (7-52) H 08/19/22 05:39 Alkaline Phosphatase 325 U/L (34-104) H 08/19/22 05:39 Troponin I High Sens 18.3 pg/ml (0-20) D 08/05/22 13:30 Total Protein 7.2 gm/dl (6.0-8.3) 08/19/22 05:39 Albumin 3.6 gm/dl (3.4-5.0) 08/19/22 05:39 Globulin 3.6 gm/dl (2.5-4.0) 08/19/22 05:39 Albumin/Globulin Ratio 1.0 (0.9-2) 08/19/22 05:39 Lipase 135 U/L (11-82) H 08/05/22 13:30 Procalcitonin 1.28 ng/ml (0-0.5) H 08/05/22 13:30 Urine Color Yellow 08/05/22 16:50 Urine Appearance Clear (Clear) 08/05/22 16:50 Urine pH 5.0 (4.5-7.5) 08/05/22 16:50 Ur Specific [place] 1.016 (1.000-1.030) 08/05/22 16:50 Urine Protein 1+ (Negative) H 08/05/22 16:50 Urine Glucose (UA) Negative (Negative) 08/05/22 16:50 Urine Ketones Negative (Negative) 08/05/22 16:50 Urine Blood Negative (Negative) 08/05/22 16:50 Urine Nitrite Negative (Negative) 08/05/22 16:50 Urine Bilirubin Negative (Negative) 08/05/22 16:50 Urine Urobilinogen Negative (Negative) 08/05/22 16:50 Ur Leukocyte Esterase Negative (Negative) 08/05/22 16:50 Urine WBC (Auto) 1-5 /hpf (0-5) 08/05/22 16:50 Urine RBC (Auto) 5-10 /hpf (0-4) H 08/05/22 16:50 U Hyaline Cast (Auto) 5-10 /lpf (0-5) H 08/05/22 16:50 U Epithel Cells (Auto) 5-10 /lpf (0-5) H 08/05/22 16:50 Urine Bacteria (Auto) Negative (Negative) 08/05/22 16:50 Nasal Screen MRSA (PCR) Negative (Negative) 08/06/22 04:58 Stool Occult Bld Scrn Negative (Negative) 08/11/22 13:15 Stl C. diff Tox B Gene Negative Cdiff Gene (Neg) 08/11/22 03:00 Vancomycin Trough 36.9 mcg/ml (10-20) H* 08/07/22 03:54 SARS-CoV-2, RNA, NAAT NEGATIVE (NEGATIVE) 08/05/22 17:07 Blood Type O Positive 08/11/22 18:17 Antibody Screen NEGATIVE 08/11/22 18:17 Crossmatch See Detail 08/11/22 18:17 Impressions Chest X-Ray 08/11/22 09:55 XR chest 1V portable HISTORY: 37 years-old Male f/u acute shortness of breath COMPARISON: Chest radiograph 08/08/2022, chest CT 08/05/20002009 TECHNIQUE: Portable AP view of the chest FINDINGS: Cardiac silhouette is enlarged. Tracheostomy cannula overlies the midline at the level the clavicular heads. No pneumothorax. Small left and possible trace right pleural effusions. Persistent bibasilar opacities appear stable. Bones appear grossly intact. IMPRESSION: 1. Cardiomegaly without pulmonary edema. 2. Small left and possible trace right pleural effusions with persistent bibasilar opacities. ACT 112: Negative or not required by law. The above report was generated using voice recognition software. It may contain grammatical, syntax or spelling errors. Electronically signed by: James Brody M.D. 08/11/2022 10:25 AM Abdomen/Pelvis CT 08/11/22 16:[address] WITH CONTRAST; CT abdomen and pelvis with IV contrast only CT DOSE: 1682.58 mGy.cm HISTORY: Follow up whole body scan in a patient with fever fever unknown origin TECHNIQUE: Multiaxial CT images of the chest, abdomen and pelvis were performed following the IV administration of 93 cc of Optiray. A dose lowering technique was utilized adhering to the principles of ALARA. COMPARISON: CT chest, abdomen and pelvis 08/05/2022 FINDINGS: CT CHEST: Tracheostomy cannula distal tip terminates at the level of the clavicular heads. Fluid within the airway proximal to the cannula. Mild tracheobronchial secretions. No thyroid nodule or lymphadenopathy. The heart is normal in size without pericardial effusion. No thoracic aortic aneurysm. Unremarkable pulmonary artery. Marked atrophy of the musculature redemonstrated. Small left and trace right pleural effusions. Dependent bibasilar consolidation. No pneumothorax. Mild patchy groundglass opacities throughout the right lung are new from prior. Unremarkable soft tissues. No acute fracture identified. Mild thoracolumbar compression deformities are again noted. CT ABDOMEN/PELVIS: No pneumatosis or pneumoperitoneum. Unremarkable spleen, gallbladder, and adrenal glands. Hepatic steatosis with mild right hemidiaphragmatic elevation. Patency of the hepatic and portal veins. The splenic vein is attenuated however is patent. There is persistent interstitial and peripancreatic inflammation which appears mildly worsened with increased amount of abdominal ascites. Peripancreatic fluid collections appear to be generally stable, with the largest measuring 3.8 cm adjacent to the pancreatic tail. Tiny fluid collections are again noted extending along the stomach and transverse colon. Embolization coils are noted adjacent to the distal stomach and pancreatic head. Gastrojejunostomy tube is in place. Persistent gastric wall thickening. 4 mm nonobstructing calculus of the superior pole left kidney. No ureteral calculi or hydronephrosis identified. Layering hyperdensity within the urinary bladder may represent stone fragments. Air-fluid level within the urinary bladder with diffuse wall thickening. Aorta and IVC appear unchanged. Periportal and precaval lymphadenopathy redemonstrated. There is marked diffuse muscle atrophy. No bowel obstruction or bowel wall thickening. Rectal catheter is in place. Normal appendix. No acute fracture. Demineralized appearance of the bones. IMPRESSION: 1. Small left and trace right pleural effusions with persistent bibasilar consolidation. 2. Progressively worsened acute pancreatitis with mildly increased amount of abdominal ascites. Numerous peripancreatic fluid collections appear to be generally stable from the exam obtained 6 days earlier. Sterility cannot be determined by imaging alone. 3. 4 mm left renal calculus. No ureteral calculi or hydronephrosis. 4. No bowel obstruction or bowel wall thickening. 5. Attenuated splenic vein without occlusion is similar to prior. 6. Upper abdominal lymphadenopathy is likely reactive. 7. Additional findings as above. ACT 112: Negative or not required by law. Dictated: 08/11/2022 6:09 PM Transcribed: 08/11/2022 6:37 PM [facility] [id number] [email or web address] Electronically signed by: James Brody M.D. 08/11/2022 6:[address] 08/11/22 16:[address] WITH CONTRAST; CT abdomen and pelvis with IV contrast only CT DOSE: 1682.58 mGy.cm HISTORY: Follow up whole body scan in a patient with fever fever unknown origin TECHNIQUE: Multiaxial CT images of the chest, abdomen and pelvis were performed following the IV administration of 93 cc of Optiray. A dose lowering technique was utilized adhering to the principles of ALARA. COMPARISON: CT chest, abdomen and pelvis 08/05/2022 FINDINGS: CT CHEST: Tracheostomy cannula distal tip terminates at the level of the clavicular heads. Fluid within the airway proximal to the cannula. Mild tracheobronchial secretions. No thyroid nodule or lymphadenopathy. The heart is normal in size without pericardial effusion. No thoracic aortic aneurysm. Unremarkable pulmonary artery. Marked atrophy of the musculature redemonstrated. Small left and trace right pleural effusions. Dependent bibasilar consolidation. No pneumothorax. Mild patchy groundglass opacities throughout the right lung are new from prior. Unremarkable soft tissues. No acute fracture identified. Mild thoracolumbar compression deformities are again noted. CT ABDOMEN/PELVIS: No pneumatosis or pneumoperitoneum. Unremarkable spleen, gallbladder, and adrenal glands. Hepatic steatosis with mild right hemidiaphragmatic elevation. Patency of the hepatic and portal veins. The splenic vein is attenuated however is patent. There is persistent interstitial and peripancreatic inflammation which appears mildly worsened with increased amount of abdominal ascites. Peripancreatic fluid collections appear to be generally stable, with the largest measuring 3.8 cm adjacent to the pancreatic tail. Tiny fluid collections are again noted extending along the stomach and transverse colon. Embolization coils are noted adjacent to the distal stomach and pancreatic head. Gastrojejunostomy tube is in place. Persistent gastric wall thickening. 4 mm nonobstructing calculus of the superior pole left kidney. No ureteral calculi or hydronephrosis identified. Layering hyperdensity within the urinary bladder may represent stone fragments. Air-fluid level within the urinary bladder with diffuse wall thickening. Aorta and IVC appear unchanged. Periportal and precaval lymphadeno narendra redemonstrated. There is marked diffuse muscle atrophy. No bowel obstruction or bowel wall thickening. Rectal catheter is in place. Normal appendix. No acute fracture. Demineralized appearance of the bones. IMPRESSION: 1. Small left and trace right pleural effusions with persistent bibasilar consolidation. 2. Progressively worsened acute pancreatitis with mildly increased amount of abdominal ascites. Numerous peripancreatic fluid collections appear to be generally stable from the exam obtained 6 days earlier. Sterility cannot be determined by imaging alone. 3. 4 mm left renal calculus. No ureteral calculi or hydronephrosis. 4. No bowel obstruction or bowel wall thickening. 5. Attenuated splenic vein without occlusion is similar to prior. 6. Upper abdominal lymphadenopathy is likely reactive. 7. Additional findings as above. ACT 112: Negative or not required by law. Dictated: 08/11/2022 6:09 PM Transcribed: 08/11/2022 6:37 PM [facility] [id number] [email or web address] Electronically signed by: James Brody M.D. 08/11/2022 6:43 PM Venous Doppler Study 08/11/22 16:24 BILATERAL LOWER EXTREMITY VENOUS DOPPLER HISTORY: Acute pain and swelling of the lower legs r/o dvt COMPARISON STUDY: None. FINDINGS: There is normal compressibility, flow, and augmentation within the bilateral lower extremity deep venous systems. The common femoral and greater saphenous veins are not visualized secondary to overlying bandages. IMPRESSION: No DVT within the right or left lower extremity. ACT 112: Negative or not required by law. Electronically signed by: James Brody M.D. 08/11/2022 7:45 PM Medications Administered Current Inpatient Medications Acetaminophen (Acetaminophen 325 Mg Tab) 650 mg PO Q4H PRN PRN Reason: Pain or Fever Stop: 09/15/22 21:03 Last Admin: 08/16/22 21:19 Dose: 650 mg Albuterol (Albuterol 0.083% Nebu Soln 3 Ml Vial) 2.5 mg NEB Q6R PRN; Protocol PRN Reason: cough wheeze Stop: 09/05/22 00:03 Last Admin: 08/16/22 19:31 Dose: 2.5 mg Artificial Tears (Artificial Tears) 1 drops OP UD PRN PRN Reason: Dry Eye(S) Stop: 09/05/22 00:36 Last Admin: 08/10/22 18:35 Dose: 1 drops Artificial Tears (Artificial Tears) 1 drops OP QID MYNOR Stop: 09/05/22 08:59 Last Admin: 08/20/22 07:50 Dose: 1 drops Atropine Sulfate (Atropine Sulfate 1% Op Soln 5 Ml Btl) 1 drops SL QID PRN PRN Reason: increased secretions Stop: 09/05/22 00:05 Calamine/Phenol (Menthol-Zinc Oxide 360 Appln/120 Gm Tube) 1 appln EXT DAILY PRN PRN Reason: SKIN IRRITATION Stop: 09/10/22 19:14 Last Admin: 08/13/22 20:44 Dose: 1 appln Dextrose (Dextrose 50% 50 Ml Syringe) 25 - 50 ml IV UD PRN; Protocol PRN Reason: Hypoglycemia Protocol Stop: 09/06/22 10:59 Enoxaparin Sodium (Enoxaparin Inj 40 Mg/0.4 Ml Syr) 40 mg SQ QAM MYNOR Stop: 09/05/22 08:59 Last Admin: 08/10/22 08:58 Dose: 40 mg Enteral Nutritional Formula (Peptamen 1.5 Cali 1,000 Ml Bag) 1,000 ml JT UD [facility]; Protocol Stop: 09/05/22 10:59 Last Admin: 08/19/22 18:27 Dose: 1,000 ml Famotidine (Famotidine Susp 20 Mg/2.5 Ml Udp) 20 mg NG BID PRN PRN Reason: Indigestion Stop: 09/05/22 02:29 Glucagon (Glucagon For Inj 1 Mg Vial) 1 mg IM UD PRN; Protocol PRN Reason: Hypoglycemia Protocol Stop: 09/06/22 10:59 Glucose (Glucose 40% Gel 15 Gm Tube) 15 - 30 gm PO UD PRN; Protocol PRN Reason: Hypoglycemia Protocol Stop: 09/06/22 10:59 Glucose (Glucose 10 Tab/Tube) 4 - 8 tab PO UD PRN; Protocol PRN Reason: Hypoglycemia Protocol Stop: 09/06/22 10:59 Guaifenesin (Guaifenesin Sugar Free 100 Mg/5 Ml Udc) 200 mg GT BID PRN PRN Reason: Cough Stop: 09/05/22 00:05 Hydromorphone HCl (Hydromorphone Hcl 2 Mg Tab) 2 mg PO Q6 PRN PRN Reason: MODERATE Pain Stop: 09/02/22 16:55 Last Admin: 08/20/22 06:49 Dose: 2 mg Hydromorphone HCl (Hydromorphone Inj 0.5 Mg/0.5 Ml Syr) 0.5 mg IV Q6H PRN PRN Reason: severe pain Stop: 09/02/22 16:59 Last Admin: 08/20/22 07:46 Dose: 0.5 mg Insulin Aspart (Insulin Aspart Per Unit) 0 units SC Q6 MYNOR Stop: 09/06/22 11:59 Last Admin: 08/20/22 06:01 Dose: 4 units Lansoprazole (Lansoprazole 15 Mg Soltab) 15 mg PO DAILY MYNOR Stop: 09/05/22 08:59 Last Admin: 08/20/22 07:49 Dose: 15 mg Lidocaine (Lidocaine 5% Oint 30 Gm Tube) 1 appln TOP BID PRN PRN Reason: Pain Stop: 09/05/22 00:05 Melatonin (Melatonin 3 Mg Tab) 3 - 6 mg PO HS PRN PRN Reason: Sleep Stop: 09/05/22 00:05 Last Admin: 08/17/22 21:31 Dose: 6 mg Midodrine (Midodrine Hcl 2.5 Mg Tab) 5 mg PO TID@0800,1200,1800 [facility] Stop: 09/05/22 00:29 Last Admin: 08/20/22 07:48 Dose: 5 mg Miscellaneous (Carbohydrates For Hypoglycemia ) 15 - 30 gm PO UD PRN PRN Reason: Hypoglycemia Treatment Stop: 09/06/22 10:59 Multi-Ingredient Cream (Artificial Tears Op Oint 3.5 Gm Tube) 1 appln OP HS [facility] Stop: 09/05/22 00:05 Last Admin: 08/19/22 22:08 Dose: Not Given Non-Formulary Medication (Zinc Oxide) 1 appln TOP TID [facility] Stop: 09/05/22 08:59 Last Admin: 08/20/22 07:50 Dose: 1 appln Nystatin (Nystatin Powder 15gm Btl) 1 appln EXT DAILY PRN PRN Reason: Rash Stop: 09/05/22 00:05 Polyethylene Glycol (Polyethylene (Miralax) 17 Gm Pack) 17 gm PEG DAILY PRN PRN Reason: Constipation Stop: 09/05/22 00:05 Sodium Chloride (Sodium Chlor 7% 4 Ml Neb) 4 ml NEB BIDR MYNOR Stop: 09/05/22 18:59 Last Admin: 08/20/22 08:03 Dose: 4 ml Sterile Water (Tube Feeding Water Flush) 250 ml JT Q8H [facility] Stop: 09/07/22 09:59 Last Admin: 08/20/22 09:21 Dose: 250 ml Tramadol HCl (Tramadol Hcl 50 Mg Tablet) 50 mg NG Q6H PRN PRN Reason: mild Pain Stop: 09/05/22 00:05 Last Admin: 08/20/22 03:38 Dose: 50 mg Vitamin D (Cholecalciferol 1,000 Units 25 Mcg Tab) 1,000 units JT DAILY [facility] Stop: 09/05/22 08:59 Last Admin: 08/20/22 07:49 Dose: 1,000 units
[2022-08-20] MEDS: PEPTAMEN 1.5 CAL 1,000 ML BAG JT SCH (13:50)
[2022-08-20] MEDS: ACETAMINOPHEN SUSP 325 MG/10.15 ML UDC PO PRN (17:29)
[2022-08-20] MEDS: ARTIFICIAL TEARS OP OINT 3.5 GM TUBE OP SCH (20:55)
[2022-08-21] MEDS: TUBE FEEDING WATER FLUSH JT SCH ×3 (01:42→17:35)
[2022-08-21] MEDS: HYDROmorphone INJ 0.5 MG/0.5 ML SYR IV PRN ×3 (03:37→20:07)
[2022-08-21] MEDS: traMADol HCL 50 MG TABLET NG PRN ×2 (05:43→23:31)
[2022-08-21 06:11] LABS: Basophils # (auto) 0.02 K/uL (0-0.2); Basophils % (auto) 0.2 %; Eosinophils # (auto) 0.15 K/uL (0-0.50); Eosinophils % (auto) 1.5 %; Hematocrit (blood only) 24.5 % (40.1-51.0); Hemoglobin 7.8 g/dl (14.0-18.0); Immature Granulocytes # (auto) 0.07 K/uL (0.00-0.02); Immature Granulocytes % (auto) 0.7 %; Lymphocytes # (auto) 1.74 K/uL (1.2-3.4); Lymphocytes % (auto) 17.6 %; Mean Corpuscular Hgb Conc 31.8 g/dL (32.0-36.0); Mean Corpuscular Volume 94.2 fL (80.0-100.0); Mean Platelet Volume 8.8 fL (9.4-12.4); Monocytes # (auto) 0.68 K/uL (0.24-0.82); Monocytes % (auto) 6.9 %; Neutrophils # (auto) 7.23 K/uL (1.4-6.5); Neutrophils % (auto) 73.1 %; Platelet Count 606 K/uL (130-400); RDW Coefficient of Variation 16.8 % (11.5-14.5); White Blood Count 9.89 K/ul (4.8-10.8)
[2022-08-21 06:38] LABS: Anion Gap 9 (3-11); Blood Urea Nitrogen 12 mg/dl (6-23); Calcium 8.9 mg/dl (8.5-10.1); Carbon Dioxide 25 mmol/L (21-32); Chloride 103 mmol/L (98-107); Creatinine Clr Calc Pharmacy 565.9 ml/min; Est GFR (African American) > 150.0 ml/min; Est GFR (Non-African American) > 150.0 ml/min; Glucose 116 mg/dl (70-99(Fasting)); Magnesium 1.7 mg/dl (1.7-2.4); Phosphorus 3.4 mg/dl (2.5-4.9); Potassium 3.8 mmol/L (3.5-5.1); Sodium 137 mmol/L (136-145)
[2022-08-21 06:50] LABS: Polychromasia 1+
[2022-08-21] MEDS: SODIUM CHLOR 7% 4 ML NEB NEB SCH ×2 (07:57→20:33)
[2022-08-21] MEDS: HYDROmorphone HCL 2 MG TAB PO PRN ×2 (08:15→17:35)
[2022-08-21] MEDS: MIDODRINE HCL 2.5 MG TAB PO SCH ×3 (08:16→17:35)
[2022-08-21] MEDS: LANSOPRAZOLE 15 MG SOLTAB PO SCH (08:16)
[2022-08-21] MEDS: CHOLECALCIFEROL 1,000 UNITS 25 MCG TAB JT SCH (08:16)
[2022-08-21] MEDS: ARTIFICIAL TEARS OP SCH ×4 (08:16→20:09)
[2022-08-21] MEDS: NON-FORMULARY MEDICATION (Zinc Oxide 20 % Ointment) TOP SCH (08:17)
[2022-08-21] MEDS: PEPTAMEN 1.5 CAL 1,000 ML BAG JT SCH (10:45)
--- NOTE | 2022-08-21 17:34 | Hospitalist Progress Note ---
Date of Service August 21, 2022 Assessment & Plan (1) Sepsis: Plan (1) Severe sepsis: Plan: Met sepsis criteria on admission with leukocytosis 27.5, febrile, lactate 3.9 and tachycardia -likely pulm source, +sputum culture Admission CT chest with possible pneumonia noted CT abd/pelvis showed resolving acute pancreatitis with decreased size of the numerous peripancreatic fluid collections suggestive of pseudocysts. Admitting Sputum cx positive for staph aureus and klebsiella pna blood cx no growth Repeat CT abd/pelvis showedprogressively worsened acute pancreatitis with mildly increased amount of abdominal ascites. Numerous peripancreatic fluid collections appear to be generally stable from the exam obtained 6 days earlier. GI was consulted, no intervention. Repeat CT chest showed small left and trace right pleural effusions with persistent bibasilar consolidation. Patient was spiking fever despite Unasyn, ID was consulted and thought to be drug fevers, changed to cefepime 08/13/2022. WBC has been improving, patient with mild fevers. Stool for C. difficile negative. Repeat blood culture pending, urine culture negative, respiratory culture with pansensitive Serratia. Status post 17 days of antibiotic, completed on 08/17. Fungal stain with no evidence of fungal infection, caspofungin is stopped per ID. Follow-up with cryptococcal antigen and histo antigen. Continue to monitor off antibiotic. (2) Chronic respiratory failure: Plan: - wean to baseline vent settings per pulm - ventilator dependent. - at baseline at this time - reported air leak in trach and need for possible up-sizing - ENT consulted for trach evaluation - has size 8 trach which is appropriate and will likely need trach replacement as cuff might be leaking - Plan for [place]ach exchange [place] Friday08/23/2022 - family ok with plan (3) Pseudocyst of pancreas: Plan: - initial CT with resolving acute pancreatitis with decreasing size of pseudocysts. - Repeat CT abd/pelvis showedprogressively worsened acute pancreatitis with mildly increased amount of abdominal ascites. Numerous peripancreatic fluid collections appear to be generally stable from the exam obtained 6 days earlier. - radiology consulted for paracentesis diagnostic - not enough fluid for para at this time - no likely source of infection and too small to drain either way - s/p IV abx (4) Abnormal LFTs: Plan: - likely related to sepsis-improved - CT A/P noted - monitor (5) Electrolyte imbalance: Plan: - replete prn (6) ALS (amyotrophic lateral sclerosis): Plan: - bedbound with quadriplegia, has trach on vent. - continue vent support. - continue home riluzole (7) Left ventricular systolic dysfunction: Plan: - euvolemic, off IVF. - ontinues with free water flushes Plan DVT ppx- sc lovenox on hold, scds on Code Status: Full Code Dispo: PCU Admission and Anticipated Discharge Date Admission Date: August 05, 2022 Subjective Patient seen and examined at bedside as a follow-up of severe sepsis POA likely secondary to pneumonia. Patient was lying in bed, on his baseline ventilation settings via tracheostomy tube, NAD, denies any new issues, reports feeling better, denies chest pain or issues with breathing. Patient communicates through machine. Physical Exam Physical Exam: GENERAL: Alert and alert. NAD, on mechanical ventilation via trach. HEENT: No pallor, no icterus. Pupils equal, round and reactive to light. Oral mucosa moist. NECK: No JVD, no neck masses. HEART: S1 and S2 heard. Regular rate and rhythm. No murmur, no gallop. RESPIRATORY SYSTEM: Normal AP diameter. No accessory muscle use. No wheezing, mild b/b crackles. ABDOMEN: Soft, bowel sounds present, nontender, no distention. G-J tube in situ. CENTRAL NERVOUS SYSTEM: No facial droop. quadriparesis, +2 pulses b/l dorsalis pedis. Communicates via machine. EXTREMITIES: No edema, no erythema seen. Stage I-II decubitus ulcer. Results & Data Results & Data ([facility]) Vital Signs (Past 12 Hours) Vital Signs Temp Pulse Resp BP Pulse Ox O2 Del Method FiO2 08/21/22 16:00 37.8 C H 85 14 100 08/21/22 16:00 107/62 08/21/22 16:08 90 14 100 30 08/21/22 16:00 30 08/21/22 15:00 37.6 C H 86 14 100 08/21/22 15:00 115/63 08/21/22 14:00 37.5 C 89 14 100 08/21/22 14:00 112/62 08/21/22 13:00 37.6 C H 85 14 100 08/21/22 13:00 114/64 08/21/22 12:00 37.5 C 87 14 100 08/21/22 12:00 120/66 08/21/22 12:00 30 08/21/22 11:00 37.5 C 78 14 100 08/21/22 11:00 109/64 08/21/22 10:33 83 14 100 30 08/21/22 10:00 37.4 C 77 12 100 08/21/22 10:00 113/65 08/21/22 09:00 37.5 C 93 H 12 100 08/21/22 09:00 129/88 08/21/22 08:00 84 08/21/22 08:00 Mechanical Vent 30 08/21/22 08:00 30 08/21/22 08:00 37.3 C 92 H 14 113/61 100 Mechanical Vent 30 08/21/22 07:00 37.3 C 84 14 111/61 100 Mechanical Vent 30 08/21/22 07:51 86 14 100 30 08/21/22 06:00 37.3 C 88 14 109/63 100 Mechanical Vent 30 (1) Sepsis Sepsis type: sepsis due to unspecified organism Sepsis acute organ dysfunction status: unspecified Qualified Code(s): A41.9 - Sepsis, unspecified organism
[2022-08-21] MEDS: ARTIFICIAL TEARS OP OINT 3.5 GM TUBE OP SCH (20:09)
[2022-08-22] MEDS: ARTIFICIAL TEARS OP OINT 3.5 GM TUBE OP SCH ×2 (00:44→20:04)
[2022-08-22] MEDS: TUBE FEEDING WATER FLUSH JT SCH ×2 (02:05→10:20)
[2022-08-22] MEDS: HYDROmorphone HCL 2 MG TAB PO PRN ×2 (02:31→20:03)
[2022-08-22] MEDS: PEPTAMEN 1.5 CAL 1,000 ML BAG JT SCH (02:49)
[2022-08-22 06:27] LABS: Hematocrit (blood only) 25.8 % (40.1-51.0); Mean Corpuscular Hemoglobin 29.1 pg (25.0-34.0); Mean Corpuscular Volume 93.8 fL (80.0-100.0); Mean Platelet Volume 8.3 fL (9.4-12.4); Platelet Count 573 K/uL (130-400); RDW Coefficient of Variation 16.8 % (11.5-14.5); RDW Standard Deviation 55.5 fL (36.4-46.3); Red Blood Count 2.75 M/uL (4.63-6.08); White Blood Count 9.72 K/ul (4.8-10.8)
[2022-08-22 06:54] LABS: Anion Gap 9 (3-11); Blood Urea Nitrogen 14 mg/dl (6-23); Carbon Dioxide 25 mmol/L (21-32); Chloride 103 mmol/L (98-107); Creatinine Clr Calc Pharmacy 565.9 ml/min; Est GFR (African American) > 150.0 ml/min; Est GFR (Non-African American) > 150.0 ml/min; Glucose 139 mg/dl (70-99(Fasting)); Potassium 3.6 mmol/L (3.5-5.1); Sodium 137 mmol/L (136-145)
[2022-08-22] MEDS: SODIUM CHLOR 7% 4 ML NEB NEB SCH ×2 (07:02→20:02)
[2022-08-22] MEDS: MIDODRINE HCL 2.5 MG TAB PO SCH ×3 (08:40→16:57)
[2022-08-22] MEDS: LANSOPRAZOLE 15 MG SOLTAB PO SCH (08:41)
[2022-08-22] MEDS: CHOLECALCIFEROL 1,000 UNITS 25 MCG TAB JT SCH (08:41)
[2022-08-22] MEDS: ARTIFICIAL TEARS OP SCH ×4 (08:41→20:04)
[2022-08-22] MEDS: HYDROmorphone INJ 0.5 MG/0.5 ML SYR IV PRN ×2 (09:07→14:44)
[2022-08-22] MEDS: ARTIFICIAL TEARS OP PRN (12:38)
--- NOTE | 2022-08-22 16:45 | Hospitalist Progress Note ---
Date of Service August 22, 2022 Assessment & Plan (1) Sepsis: Plan (1) Severe sepsis: Plan: Met sepsis criteria on admission with leukocytosis 27.5, febrile, lactate 3.9 and tachycardia -likely pulm source, +sputum culture Admission CT chest with possible pneumonia noted CT abd/pelvis showed resolving acute pancreatitis with decreased size of the numerous peripancreatic fluid collections suggestive of pseudocysts. Admitting Sputum cx positive for staph aureus and klebsiella pna blood cx no growth Repeat CT abd/pelvis showedprogressively worsened acute pancreatitis with mildly increased amount of abdominal ascites. Numerous peripancreatic fluid collections appear to be generally stable from the exam obtained 6 days earlier. GI was consulted, no intervention. Repeat CT chest showed small left and trace right pleural effusions with persistent bibasilar consolidation. Patient was spiking fever despite Unasyn, ID was consulted and thought to be drug fevers, changed to cefepime 08/13/2022. WBC has been improving, patient with mild fevers. Stool for C. difficile negative. Repeat blood culture NG5D, urine culture negative, respiratory culture with pansensitive Serratia. Status post 17 days of antibiotic, completed on 08/17. Fungal stain with no evidence of fungal infection, caspofungin is stopped per ID. Follow-up with cryptococcal antigen and histo antigen. F/u Fungal Cx 08/18. Continue to monitor off antibiotic. (2) Chronic respiratory failure: Plan: - wean to baseline vent settings per pulm - ventilator dependent. - at baseline at this time - reported air leak in trach and need for possible up-sizing - ENT consulted for trach evaluation - has size 8 trach which is appropriate and will likely need trach replacement as cuff might be leaking - Plan for [place] Friday08/23/2022 - family ok with plan. NPO midnight. (3) Pseudocyst of pancreas: Plan: - initial CT with resolving acute pancreatitis with decreasing size of pseudocysts. - Repeat CT abd/pelvis showedprogressively worsened acute pancreatitis with mildly increased amount of abdominal ascites. Numerous peripancreatic fluid collections appear to be generally stable from the exam obtained 6 days earlier. - radiology consulted for paracentesis diagnostic - not enough fluid for para at this time - no likely source of infection and too small to drain either way - s/p IV abx (4) Abnormal LFTs: Plan: - likely related to sepsis-improved - CT A/P noted - monitor (5) Electrolyte imbalance: Plan: - replete prn (6) ALS (amyotrophic lateral sclerosis): Plan: - bedbound with quadriplegia, has trach on vent. - continue vent support. - continue home riluzole (7) Left ventricular systolic dysfunction: Plan: - euvolemic, off IVF. - ontinues with free water flushes Plan DVT ppx- sc lovenox on hold, scds on Code Status: Full Code Dispo: PCU Admission and Anticipated Discharge Date Admission Date: August 05, 2022 Subjective Patient seen and examined at bedside as a follow-up of severe sepsis POA likely secondary to pneumonia. Patient was lying in bed, on his baseline ventilation settings via tracheostomy tube, NAD, denies any new issues, reports feeling better, denies chest pain or issues with breathing. Patient communicates through machine. Pt's at bedside who also has no concerns. Physical Exam Physical Exam: GENERAL: Alert and alert. NAD, on mechanical ventilation via trach. HEENT: No pallor, no icterus. Pupils equal, round and reactive to light. Oral mucosa moist. NECK: No JVD, no neck masses. HEART: S1 and S2 heard. Regular rate and rhythm. No murmur, no gallop. RESPIRATORY SYSTEM: Normal AP diameter. No accessory muscle use. No wheezing, mild b/b crackles. ABDOMEN: Soft, bowel sounds present, nontender, no distention. G-J tube in situ. CENTRAL NERVOUS SYSTEM: No facial droop. quadriparesis, +2 pulses b/l dorsalis pedis. Communicates via machine. EXTREMITIES: No edema, no erythema seen. Stage I-II decubitus ulcer. Results & Data Results & Data ([facility]) Vital Signs (Past 12 Hours) Vital Signs Temp Pulse Resp BP Pulse Ox FiO2 08/22/22 16:00 101 H 08/22/22 15:00 37.8 C H 98 H 14 99 08/22/22 15:00 120/70 08/22/22 14:00 37.8 C H 92 H 14 99 08/22/22 14:00 107/67 08/22/22 13:00 37.7 C H 95 H 14 100 08/22/22 13:00 112/66 08/22/22 12:00 37.5 C 88 14 100 08/22/22 12:00 103/68 08/22/22 11:00 37.4 C 96 H 14 100 08/22/22 11:00 110/61 08/22/22 10:00 37.4 C 89 14 100 08/22/22 10:00 109/60 08/22/22 09:00 37.5 C 91 H 14 98 08/22/22 09:00 122/72 08/22/22 12:00 30 08/22/22 11:01 98 H 14 100 30 08/22/22 08:00 30 08/22/22 07:10 94 H 14 99 30 08/22/22 08:00 37.4 C 84 12 100 08/22/22 08:00 103/66 08/22/22 07:00 37.2 C 94 H 14 99 08/22/22 07:00 114/69 08/22/22 08:00 89 08/22/22 06:00 37.2 C 86 15 111/64 99 08/22/22 05:00 37.3 C 90 12 130/77 100 (1) Sepsis Sepsis type: sepsis due to unspecified organism Sepsis acute organ dysfunction status: unspecified Qualified Code(s): A41.9 - Sepsis, unspecified organism
[2022-08-22] MEDS: ACETAMINOPHEN SUSP 325 MG/10.15 ML UDC PO PRN (16:57)
[2022-08-23] MEDS ORDERED: LACTATED RINGER'S 1,000 ML IV SCH
[2022-08-23 06:40] LABS: Hematocrit (blood only) 25.7 % (40.1-51.0); Hemoglobin 8.1 g/dl (14.0-18.0); Mean Corpuscular Hemoglobin 29.3 pg (25.0-34.0); Mean Corpuscular Hgb Conc 31.5 g/dL (32.0-36.0); Mean Corpuscular Volume 93.1 fL (80.0-100.0); Mean Platelet Volume 8.6 fL (9.4-12.4); Platelet Count 652 K/uL (130-400); RDW Coefficient of Variation 16.6 % (11.5-14.5); Red Blood Count 2.76 M/uL (4.63-6.08); White Blood Count 11.42 K/ul (4.8-10.8)
[2022-08-23 07:04] LABS: Anion Gap 11 (3-11); Blood Urea Nitrogen 13 mg/dl (6-23); Calcium 9.3 mg/dl (8.5-10.1); Carbon Dioxide 24 mmol/L (21-32); Chloride 103 mmol/L (98-107); Creatinine Clr Calc Pharmacy 565.9 ml/min; Est GFR (African American) > 150.0 ml/min; Est GFR (Non-African American) > 150.0 ml/min; Glucose 98 mg/dl (70-99(Fasting)); Magnesium 1.9 mg/dl (1.7-2.4); Phosphorus 3.3 mg/dl (2.5-4.9); Potassium 3.7 mmol/L (3.5-5.1); Sodium 138 mmol/L (136-145)
[2022-08-23] MEDS: SODIUM CHLOR 7% 4 ML NEB NEB SCH ×2 (07:23→19:55)
[2022-08-23] MEDS: MIDODRINE HCL 2.5 MG TAB PO SCH ×3 (08:24→17:22)
[2022-08-23] MEDS: CHOLECALCIFEROL 1,000 UNITS 25 MCG TAB JT SCH (08:25)
[2022-08-23] MEDS: LANSOPRAZOLE 15 MG SOLTAB PO SCH (08:25)
[2022-08-23] MEDS: ARTIFICIAL TEARS OP SCH ×4 (08:25→20:01)
[2022-08-23] MEDS: HYDROmorphone INJ 0.5 MG/0.5 ML SYR IV PRN ×3 (08:39→23:32)
--- NOTE | 2022-08-23 09:32 | Infectious Disease Progress Nt ---
Date of Service August 23, 2022 Assessment & Plan (1) Fever: (2) Pancreatitis: (3) Pseudocyst of pancreas: (4) Chronic respiratory failure: (5) Ascites: Admission and Anticipated Discharge Date Admission Date: August 05, 2022 Subjective Subsequent visit was provided via telemedicine using two-way real-time interactive telecommunication between the patient and the telemedicine provider. For the duration of the visit, the provider was performing the assessment from a different facility than the patient. This includesuse of bluetooth stethoscope forauscultationperformed by the telepresenter that the telemedicine provider can hear if described in the physical exam. [employer]visor contact information: Please call [facility] [phone]. (Phone Number For Physician Use Only) After establishing a telemedicine visit, patient was: Patient was verified with two unique identifiers (Patient was not seen in person as no telpresenter available for video visit ) See other note for today . A LIVE VISIT WAS NOt PERFORMED NO AVAILABLE TELEPRESENTER. SEE E CONSULT NOTE FROM TODAY INSTEAD Physical Exam Physical Exam: AN E consult perfomed as no telepresenter availble for video visit . Chart reviewed Results & Data ([facility]) Vital Signs (Past 12 Hours) Vital Signs Temp Pulse Pulse Resp BP Pulse Ox O2 Del Method 08/23/22 08:00 08/23/22 08:00 77 08/23/22 08:00 37.7 C H 91 H 12 98 08/23/22 08:00 115/77 08/23/22 07:00 37.8 C H 80 14 100 08/23/22 07:00 96/55 L 08/23/22 07:36 74 15 100 08/23/22 07:31 74 14 100 Mechanical Vent 08/23/22 05:00 37.7 C H 88 14 100 08/23/22 05:00 104/65 08/23/22 04:00 37.8 C H 82 14 100 08/23/22 04:00 95/60 L 08/23/22 03:00 37.8 C H 85 14 99 08/23/22 04:00 08/23/22 03:25 90 15 100 08/23/22 00:00 37.8 C H 83 14 100 08/23/22 00:00 90/63 L 08/23/22 00:00 08/23/22 00:00 85 08/22/22 23:00 37.8 C H 83 14 100 08/22/22 23:00 96/60 L 08/22/22 22:00 37.7 C H 93 H 14 100 08/22/22 22:00 109/70 08/22/22 22:58 90 18 100 FiO2 08/23/22 08:00 30 08/23/22 08:00 08/23/22 08:00 08/23/22 08:00 08/23/22 07:00 08/23/22 07:00 08/23/22 07:36 30 08/23/22 07:31 30 08/23/22 05:00 08/23/22 05:00 08/23/22 04:00 08/23/22 04:00 08/23/22 03:00 08/23/22 04:00 30 08/23/22 03:25 30 08/23/22 00:00 08/23/22 00:00 08/23/22 00:00 30 08/23/22 00:00 08/22/22 23:00 08/22/22 23:00 08/22/22 22:00 08/22/22 22:00 08/22/22 22:58 30 Laboratory Results Laboratory Results - last 48 hr 08/22/22 08/22/22 08/22/22 06:08 06:08 06:14 WBC 9.72 RBC 2.75 L Hgb 8.0 L Hct 25.8 L MCV 93.8 MCH 29.1 MCHC 31.0 L RDW Std Deviation 55.5 H RDW Coeff of Aissatou 16.8 H Plt Count 573 H MPV 8.3 L Sodium 137 Potassium 3.6 Chloride 103 Carbon Dioxide 25 Anion Gap 9 BUN 14 Creatinine < 0.20 L Est Cr Clr Drug Dosing 565.9 Est GFR ( Amer) > 150.0 Est GFR (Non-Af Amer) > 150.0 BUN/Creatinine Ratio TNP Glucose 139 H POC Glucose 147 H Calcium 9.0 Phosphorus Magnesium 08/22/22 08/22/22 08/22/22 13:49 18:14 23:07 WBC RBC Hgb Hct MCV MCH MCHC RDW Std Deviation RDW Coeff of Aissatou Plt Count MPV Sodium Potassium Chloride Carbon Dioxide Anion Gap BUN Creatinine Est Cr Clr Drug Dosing Est GFR ( Amer) Est GFR (Non-Af Amer) BUN/Creatinine Ratio Glucose POC Glucose 123 H 149 H 90 Calcium Phosphorus Magnesium 08/23/22 08/23/22 08/23/22 04:56 05:37 05:37 WBC 11.42 H RBC 2.76 L Hgb 8.1 L Hct 25.7 L MCV 93.1 MCH 29.3 MCHC 31.5 L RDW Std Deviation 55.0 H RDW Coeff of Aissatou 16.6 H Plt Count 652 H MPV 8.6 L Sodium 138 Potassium 3.7 Chloride 103 Carbon Dioxide 24 Anion Gap 11 BUN 13 Creatinine < 0.20 L Est Cr Clr Drug Dosing 565.9 Est GFR ( Amer) > 150.0 Est GFR (Non-Af Amer) > 150.0 BUN/Creatinine Ratio TNP Glucose 98 POC Glucose 106 H Calcium 9.3 Phosphorus 3.3 Magnesium 1.9
[2022-08-23] MEDS: HYDROmorphone HCL 2 MG TAB PO PRN ×2 (11:03→20:00)
[2022-08-23] MEDS ORDERED: fentaNYL citrate 100 MCG/2 ML VIAL ONE (11:15)
[2022-08-23] MEDS ORDERED: MIDAZOLAM HCL 1 MG/ML 2ML VIAL ONE ×2 (11:15→11:27)
[2022-08-23] MEDS ORDERED: MIDAZOLAM HCL 1 MG/ML 2ML VIAL IV STA (11:53)
[2022-08-23] MEDS ORDERED: fentaNYL citrate 100 MCG/2 ML VIAL IV ONE ×2 (11:54→12:05)
--- NOTE | 2022-08-23 11:55 | Procedure Note ---
Supervising Physician Co-Signing Physician Notes PROCEDURE PERFORMED: Flexible fiberoptic bronchoscopy with airway inspection and bronchial washings from the right lower lobe COMPLICATIONS: None. INDICATION: Exchange tracheostomy and evaluate for infectious etiology PROCEDURE: Informed consent was obtained from the patient's . Patient was also present during the consent process and understand the risks and benefits and wished to proceed with the procedure. Timeout was performed immediately prior to the procedure. Patient received 2 mg of Versed and 50 mcg of fentanyl prior to the insertion of the bronchoscope. Patient was on mechanical ventilation during the duration of the procedure. FiO2 was increased to 100% for the procedure. The bronchoscope was inserted via the right nares, but I unable to pass the scope through the right nares. I then passed the scope to the patient's mouth and was able to visualize the glottic opening. There was significant edema as expected. I was able to visualize the vocal cords. No lesions were noted. The scope was passed through the vocal cords. I was able to visualize the tracheostomy. There did not appear to be any obvious tracheomalacia. The tracheostomy did appear to be laterally displaced to the right. Dr. Tavarez remove the old tracheostomy site and I was able to do a visual inspection of the stoma. No obvious lesions or bleeding was seen. A new tracheostomy was inserted by Dr. Tavarez with accurate positioning noted. He currently has a size 8 Sh[address] tracheostomy tube in place. I then inserted the bronchoscope via the tracheostomy through an adapter. I inspected the bilateral tracheobronchial tree. Thick white secretions were noted in the right lower lobe and left lower lobe which were aspirated free. We did bronchial washings of the right lower lobe with 40 mL of saline and approximately 25 mL of fluid was aspirated back and sent for culture. Patient tolerated procedure well. Recommendations: Follow cultures from the right lower lobe washings. [facility] [place]) Pulmonary/Thoracic Procedure 1: Pulmonary and Thoracic: 26651 Dx bronchoscopy/wash Sedation/Anesthesia Procedure 1: Sedation/Anesthesia: 04983 Mod Sedation by the same physician;Init15 Min Child Age 5 & Up
--- NOTE | 2022-08-23 11:59 | Pulmonology Progress Note ---
Date of Service August 23, 2022 Assessment & Plan (1) Ventilator dependence: (2) ALS (amyotrophic lateral sclerosis): Plan Attending: Dr. Patton Impression: 37-year-old male vent dependent due to ALS admitted with sepsis found to have sensitive Klebsiella growing from tracheal aspirate as well as methicillin sensitive staph. Antibiotics are being dictated by infectious disease. He initially had some issues with his trach last night. There was no leak however the patient felt that he needed to be upsized. This morning the symptoms have resolved. Recommendations: 1. Ventilator dependence due to ALS: Continue current vent settings. The patient appears to be oxygenating and ventilating well. 2. Acute purulent tracheitis: Tracheostomy exchange today with the help of ENT. I performed a bronchoscopy today with washings from the right lower lobe. Patient received 2 mg of Versed and 50 mcg of fentanyl for the procedure. We will give an additional dose of 25 mcg of fentanyl as patient is noting that he is having pain. Defer further pain management to the primary team. Follow cultures from bronchial washings. 3. Tracheostomy in place. Size 8 Shiley placed today by ENT. Will continue to follow for respiratory/ventilator issues. Patient is stable. Admission and Anticipated Discharge Date Admission Date: August 05, 2022 Subjective Patient seen and examined. Continues to have a cuff leak from the tracheostomy. Otherwise he is stable. He continues to have low-grade fevers. Review of Systems Review of Systems: All systems reviewed & are unremarkable except as noted in HPI & below Physical Exam Physical Exam: GENERAL : No acute distress. EYES: No icterus, gaze conjugate NOSE: No evidence of epistaxis MOUTH: No lesions or candidiasis NECK: Supple. Tracheostomy is in place with no audible air leak LUNGS: CTA B/L, no wheezes, rales or rhonchi. Due to ALS patient is dependent on rate control from ventilator. He does not appear to be dyssynchronous HEART: Regular, rate controlled ABDOMEN: Soft, NT, ND, BS Present EXTREMITIES: Bilateral trace LE edema, pedal pulses intact and equal bilaterally. Feet are warm. NEURO: Awake and alert. Able to use computer pad for communication adequately. Results & Data Results & Data ([facility]) Vital Signs (Past 12 Hours) Vital Signs Temp Pulse Pulse Resp BP Pulse Ox O2 Del Method 08/23/22 08:00 Mechanical Vent 08/23/22 08:00 08/23/22 08:00 77 08/23/22 08:00 37.7 C H 91 H 12 98 08/23/22 08:00 115/77 08/23/22 07:00 37.8 C H 80 14 100 08/23/22 07:00 96/55 L 08/23/22 07:36 74 15 100 08/23/22 07:31 74 14 100 Mechanical Vent 08/23/22 05:00 37.7 C H 88 14 100 08/23/22 05:00 104/65 08/23/22 04:00 37.8 C H 82 14 100 08/23/22 04:00 95/60 L 08/23/22 03:00 37.8 C H 85 14 99 08/23/22 04:00 08/23/22 03:25 90 15 100 08/23/22 00:00 37.8 C H 83 14 100 08/23/22 00:00 90/63 L 08/23/22 00:00 08/23/22 00:00 85 FiO2 08/23/22 08:00 30 08/23/22 08:00 30 08/23/22 08:00 08/23/22 08:00 08/23/22 08:00 08/23/22 07:00 08/23/22 07:00 08/23/22 07:36 30 08/23/22 07:31 30 08/23/22 05:00 08/23/22 05:00 08/23/22 04:00 08/23/22 04:00 08/23/22 03:00 08/23/22 04:00 30 08/23/22 03:25 30 08/23/22 00:00 08/23/22 00:00 08/23/22 00:00 30 08/23/22 00:00 PG Care Time/CCT Total # of Minutes Spent Total Time Spent with Patient: Total time spent is greater than 50% in coordination of care (as documented) at patient's floor/unit and/or counseling patient: Coding Level of Care Code 40025 Subseq Hosp Care Lvl 3 Diagnoses Ventilator dependence Z99.11 ALS (amyotrophic lateral sclerosis) G12.21
--- NOTE | 2022-08-23 12:15 | Post Anesthesia Assessment ---
Date of Service August 23, 2022 Post Sedation Assessment Vital Signs Temp Pulse Pulse Resp BP Pulse Ox O2 Del Method 08/23/22 11:54 74 15 100 08/23/22 08:00 Mechanical Vent 08/23/22 08:00 08/23/22 08:00 77 08/23/22 08:00 37.7 C H 91 H 12 98 08/23/22 08:00 115/77 08/23/22 07:00 37.8 C H 80 14 100 08/23/22 07:00 96/55 L 08/23/22 07:36 74 15 100 08/23/22 07:31 74 14 100 Mechanical Vent 08/23/22 05:00 37.7 C H 88 14 100 08/23/22 05:00 104/65 08/23/22 04:00 37.8 C H 82 14 100 08/23/22 04:00 95/60 L 08/23/22 03:00 37.8 C H 85 14 99 08/23/22 04:00 08/23/22 03:25 90 15 100 08/23/22 00:00 37.8 C H 83 14 100 08/23/22 00:00 90/63 L 08/23/22 00:00 08/23/22 00:00 85 08/22/22 23:00 37.8 C H 83 14 100 08/22/22 23:00 96/60 L 08/22/22 22:00 37.7 C H 93 H 14 100 08/22/22 22:00 109/70 08/22/22 21:00 103/66 08/22/22 21:00 37.6 C H 87 14 100 08/22/22 20:00 37.7 C H 93 H 13 100 08/22/22 20:00 116/78 08/22/22 22:58 90 18 100 08/22/22 20:02 89 17 100 08/22/22 20:02 89 17 100 Mechanical Vent 08/22/22 20:54 Mechanical Vent 08/22/22 20:00 08/22/22 18:00 38.0 C H 99 H 14 98 08/22/22 18:00 102/58 L 08/22/22 17:00 37.9 C H 105 H 14 100 08/22/22 17:00 120/67 08/22/22 16:00 37.8 C H 99 H 14 99 08/22/22 16:00 118/64 08/22/22 16:00 08/22/22 16:00 101 H 08/22/22 15:00 37.8 C H 98 H 14 99 08/22/22 15:00 120/70 08/22/22 14:00 37.8 C H 92 H 14 99 08/22/22 14:00 107/67 08/22/22 13:00 37.7 C H 95 H 14 100 08/22/22 13:00 112/66 FiO2 08/23/22 11:54 30 08/23/22 08:00 30 08/23/22 08:00 30 08/23/22 08:00 08/23/22 08:00 08/23/22 08:00 08/23/22 07:00 08/23/22 07:00 08/23/22 07:36 30 08/23/22 07:31 30 08/23/22 05:00 08/23/22 05:00 08/23/22 04:00 08/23/22 04:00 08/23/22 03:00 08/23/22 04:00 30 08/23/22 03:25 30 08/23/22 00:00 08/23/22 00:00 08/23/22 00:00 30 08/23/22 00:00 08/22/22 23:00 08/22/22 23:00 08/22/22 22:00 08/22/22 22:00 08/22/22 21:00 08/22/22 21:00 08/22/22 20:00 08/22/22 20:00 08/22/22 22:58 30 08/22/22 20:02 30 08/22/22 20:02 08/22/22 20:54 30 08/22/22 20:00 30 08/22/22 18:00 08/22/22 18:00 08/22/22 17:00 08/22/22 17:00 08/22/22 16:00 08/22/22 16:00 08/22/22 16:00 30 08/22/22 16:00 08/22/22 15:00 08/22/22 15:00 08/22/22 14:00 08/22/22 14:00 08/22/22 13:00 08/22/22 13:00 Recovery Score Activity: Moves 0 extremities Respiration: Dyspnea/Limited Breathing Circulation: +/-20% PreAnes Value Consciousness: Fully Awake Oxygen Saturation: O2 needed for >90% Post Anesthesia Score: 6 Discharge Sedation Level of Care: Fast Track Phase II Post Sedation Plan On clinical assessment, the patient appears to have tolerated the sedation without complications. Patient is recovering as anticipated. Patient will continue to be monitored by nursing and may be discharged when sedation discharge criteria are met per below protocol. Upon Completions of procedure up to 15 minutes continue every 5 minute vital signs and the P.A.R. score; then discharge to a Phase I or Fast Track to Phase II per the following guidelines: * Discharge Patient to appropriate Phase II area if PAR is 8 or greater or return to pre- procedure baseline. The post - procedure orders will be as directed. * If PAR score is less than 8 or not return to pre-procedure baseline then patient will follow Phase I monitoring till PAR is reached for Phase II. The Phase I may be done in procedure room or may call to secure a Phase I area. * If naloxone or flumazenil are used for reversal, hold in Phase I for continued monitoring from when last reversal dose was given for a minimum of 60 minutes or longer pending the nurse and/or physician discretion of patient condition before discharge to Phase II. Please call the Sedation Physician to re-evaluate and complete post-note for discharge to Phase II area. Do NOT discharge from procedure sedation or Phase 1 until post- sedation evaluation note is complete by procedure /sedation MD Sedation Discharge Instructions to be given to the patient at discharge to home.
--- NOTE | 2022-08-23 12:17 | Ears,Nose,Throat Progress Note ---
Date of Service August 23, 2022 Assessment & Plan (1) History of tracheostomy: Plan: I performed change of tracheostomy tube to a #8 Shiley, larger size. Dr. Cardona performed bronchoscopy simultaneously to trach change and was able to visualize the trachea prior to removal, after removal and after reinsertion of new tracheostomy tube. He was able to evaluate the trachea. No sign of tracheomalacia. Subsequent to this he performed bronchoscopy via the trach eostomy tube. Covered by separate note by him. Changed to #8 Shiley performed without difficulty. Admission and Anticipated Discharge Date Admission Date: August 05, 2022 Subjective Patient seen and examined. Continues to have a cuff leak from the tracheostomy. Otherwise he is stable. He continues to have low-grade fevers. Change of tracheostomy tube requested by pulmonary due to the cuff leak. Physical Exam Constitutional: + ill appearing and + mechanically ventilated Eyes: PERRL, conjunctivae normal, anicteric sclerae ENMT: external ear and nose normal, oropharynx normal Neck: Trach in position, cuff leak noted Results & Data ([facility]) Vital Signs (Past 12 Hours) Vital Signs Temp Pulse Pulse Resp BP Pulse Ox O2 Del Method 08/23/22 11:54 74 15 100 08/23/22 08:00 Mechanical Vent 08/23/22 08:00 08/23/22 08:00 77 08/23/22 08:00 37.7 C H 91 H 12 98 08/23/22 08:00 115/77 08/23/22 07:00 37.8 C H 80 14 100 08/23/22 07:00 96/55 L 08/23/22 07:36 74 15 100 08/23/22 07:31 74 14 100 Mechanical Vent 08/23/22 05:00 37.7 C H 88 14 100 08/23/22 05:00 104/65 08/23/22 04:00 37.8 C H 82 14 100 08/23/22 04:00 95/60 L 08/23/22 03:00 37.8 C H 85 14 99 08/23/22 04:00 08/23/22 03:25 90 15 100 FiO2 08/23/22 11:54 30 08/23/22 08:00 30 08/23/22 08:00 30 08/23/22 08:00 08/23/22 08:00 08/23/22 08:00 08/23/22 07:00 08/23/22 07:00 08/23/22 07:36 30 08/23/22 07:31 30 08/23/22 05:00 08/23/22 05:00 08/23/22 04:00 08/23/22 04:00 08/23/22 03:00 08/23/22 04:00 30 08/23/22 03:25 30
--- NOTE | 2022-08-23 12:18 | Pre Anesthesia Assessment ---
Date of Service August 23, 2022 Pre Sedation Assessment Vital Signs Temp Pulse Pulse Resp BP Pulse Ox O2 Del Method 08/23/22 11:54 74 15 100 08/23/22 08:00 Mechanical Vent 08/23/22 08:00 08/23/22 08:00 77 08/23/22 08:00 37.7 C H 91 H 12 98 08/23/22 08:00 115/77 08/23/22 07:00 37.8 C H 80 14 100 08/23/22 07:00 96/55 L 08/23/22 07:36 74 15 100 08/23/22 07:31 74 14 100 Mechanical Vent 08/23/22 05:00 37.7 C H 88 14 100 08/23/22 05:00 104/65 08/23/22 04:00 37.8 C H 82 14 100 08/23/22 04:00 95/60 L 08/23/22 03:00 37.8 C H 85 14 99 08/23/22 04:00 08/23/22 03:25 90 15 100 08/23/22 00:00 37.8 C H 83 14 100 08/23/22 00:00 90/63 L 08/23/22 00:00 08/23/22 00:00 85 08/22/22 23:00 37.8 C H 83 14 100 08/22/22 23:00 96/60 L 08/22/22 22:00 37.7 C H 93 H 14 100 08/22/22 22:00 109/70 08/22/22 21:00 103/66 08/22/22 21:00 37.6 C H 87 14 100 08/22/22 20:00 37.7 C H 93 H 13 100 08/22/22 20:00 116/78 08/22/22 22:58 90 18 100 08/22/22 20:02 89 17 100 08/22/22 20:02 89 17 100 Mechanical Vent 08/22/22 20:54 Mechanical Vent 08/22/22 20:00 08/22/22 18:00 38.0 C H 99 H 14 98 08/22/22 18:00 102/58 L 08/22/22 17:00 37.9 C H 105 H 14 100 08/22/22 17:00 120/67 08/22/22 16:00 37.8 C H 99 H 14 99 08/22/22 16:00 118/64 08/22/22 16:00 08/22/22 16:00 101 H 08/22/22 15:00 37.8 C H 98 H 14 99 08/22/22 15:00 120/70 08/22/22 14:00 37.8 C H 92 H 14 99 08/22/22 14:00 107/67 08/22/22 13:00 37.7 C H 95 H 14 100 08/22/22 13:00 112/66 FiO2 08/23/22 11:54 30 08/23/22 08:00 30 08/23/22 08:00 30 08/23/22 08:00 08/23/22 08:00 08/23/22 08:00 08/23/22 07:00 08/23/22 07:00 08/23/22 07:36 30 08/23/22 07:31 30 08/23/22 05:00 08/23/22 05:00 08/23/22 04:00 08/23/22 04:00 08/23/22 03:00 08/23/22 04:00 30 08/23/22 03:25 30 08/23/22 00:00 08/23/22 00:00 08/23/22 00:00 30 08/23/22 00:00 08/22/22 23:00 08/22/22 23:00 08/22/22 22:00 08/22/22 22:00 08/22/22 21:00 08/22/22 21:00 08/22/22 20:00 08/22/22 20:00 08/22/22 22:58 30 08/22/22 20:02 30 08/22/22 20:02 08/22/22 20:54 30 08/22/22 20:00 30 08/22/22 18:00 08/22/22 18:00 08/22/22 17:00 08/22/22 17:00 08/22/22 16:00 08/22/22 16:00 08/22/22 16:00 30 08/22/22 16:00 08/22/22 15:00 08/22/22 15:00 08/22/22 14:00 08/22/22 14:00 08/22/22 13:00 08/22/22 13:00 Cardiovascular RRR, no murmur, no edema Respiratory normal respiratory effort, lungs clear to auscultation Pre-Sedation Airway Assessment Smoking Status: Never smoker Hx Sleep Apnea: No Short, Thick Neck: No Thyromental Distance: > or= 3.5 Finger Breadths Oral Cavity: + WNL Mallampati Class: IV Patient with a chronic tracheostomy ASA: ASA4 NPO Status Date of Last Intake of Fluids: 08/22/22 Time of Last Intake of Fluids: 00:00 Last Oral Intake of Fluids Comment: 12:00AM Date of Last Intake of Solid Food: 08/22/22 Procedure Planning Contraindications for Sedation: none Notes The planned sedation has been discussed with the patient. Informed Consent was obtained. I have identified the patient, determined the appropriateness of sedation and have assessed the patient immediately prior to the procedure. All medicine(s) and interventions are by my order.
[2022-08-23] MEDS: TUBE FEEDING WATER FLUSH JT SCH ×2 (12:36→18:23)
[2022-08-23] MEDS: DOCUSATE SODIUM/SENNA 50/8.6MG TAB PO SCH (13:16)
--- NOTE | 2022-08-23 13:31 | Infectious Disease Progress Nt ---
Date of Service August 23, 2022 Assessment & Plan (1) Fever: (2) Pancreatitis: (3) Pseudocyst of pancreas: (4) Chronic respiratory failure: (5) Ascites: Plan 37-year-old male, past medical history of left ventricular systolic dysfunction, chronic pancreatitis with pancreatic pseudocyst, ALS, bedbound with quadriplegia, status post trach and feeding tube, who presented to the ED on 08/05/2022 for lethargy. ID initially consulted for fevers. He was admitted with concern for infection per pt's due to lethargy, increased trach site drainage and increased SOB although no noted change in vent settings- noted to have leukocytosis, elevated lactate, relative HENRI on admissio n. CT scan chest with b/l consolidation and opacities suggestive of PNA vs. aspiration. 08/05 Sputum cx with MSSA and Klebsiella R only to cefazolin. 08/05 Bcxs NGTD 08/06 Fungal Bcx pending. 08/06 MRSA screen negative, pt had been on zosyn. empiric vanco stopped due to negative MRSA screen. Caspofungin added empirically 08/06 given risk for candidemia. diarrhea noted 08/08, but appeared c/w TF and no BMs 08/09 to date, R eye blepharitis noted.WBC improved, Fevers continued until 08/13. Repeat CT C/A/P 08/11: noted persistent bibasilar consolidation. progressively worsened acute pancreatitis with mildly increased amount of abdominal ascites. Numerous peripancreatic fluid collections appear to be generally stable from the exam obtained 6 days earlier. Discussion: Patient initially found to have a pneumonia growing sensitive species MSSA, Klebsiella. He was narrowed to Unasyn. Clinically, his respiratory status has improved. His fever curve had worsened despite improved leukocytosis. Unclear Etiology- included drug fever to Unasyn, so was discontinued and Cefepime started. GI was onsulted regarding his pancreatitis and fluid collections. No intervention On 08/14, his abdominal CT imaging was reviewwe with Radiologist, Dr. Brody. His overall pancreatitis and pancreatic fluid collections have improved. There was a slight worsening of pancreatitis from 08/05 to 08/11 but sig improved from 06/2022. In addition fluid collections are very small and do not appear drainable. He then grew Serratia (no resistance) in sputum which can be a colonizer.In light of his fever and new Serratia growth, a 5 day course of therapy from 08/13-08/17 was added. He was narrowed to Ceftriaxone which he completed on 08/17. Caspufungin was added by primary team empirically but was discontinued as there was no convincing evidence of fungal pneumonia. He eventually became afebrile with normalization of wbc 1. Tracheostomy dependent, Pneumonia ( MSSA, Klebsiella, Serratia) 2. Chronic Pancreatitis with pseudocyst, fluid collections, ascites 3. Fevers- resolved 4. ALS, quadraplegia 5. R eye blepharitis Discussion Completed Ceftriaxone on 08/17-completed 17 days of antibiotic therapy ( including additional serratia coverage for 5 days ) on 08/17.His WBC normalized but increased today to 11.42. Pltsremains elevated but stable. He has been afebrile in the last 24 hours but in the last 48 he had a t max of 38. He underwent trach exchange and bronchoscopy today . Follow up bronchcscopy/ respiratory cultures obtained today 08/23 . Follow up fever curve and WBC Follow up Cryptococcal ag and histo ag results . Continue to Monitor off antibiotics. If temp > 100.5, check BC . He remains hemodynamically stable, would hold off on additional antibiotics unless he becomes hemodynamically unstable ( fever, tachy, increased o2 req, hypotensive) . If he becomes unstable, can empirically start zosyn and vancomycin to cover for ? HAP. These would also cover for pathogens from earlier in admission in addition to more resistant organisms and anaerobes. Sharif De Leon MD MPH [facility] Please page with any questions. ID physician is available over phone on weekend for any questions/concerns. Admission and Anticipated Discharge Date Admission Date: August 05, 2022 Subjective This patient recommendation is based on a telemedicine consult request which was completed asynchronously through chart review and information provided by the primary physician. The patient was not seen or examined today. The evaluation is consultative in nature and all patient care and treatment decisions can either be accepted or rejected by the patient's primary hospital-based treating physician using their own independent medical judgment for their patient. He was afebrile in the last 24 hours but febrile in last 48 hours with a T max of 38. His WBc increased and plts remains high. He had some problems with his trach o/n and needed to be upsized. He underwent trach exchange nad bronchoscopy with ENt and pulm. Trach was clear. Broch cx obtained. Physical Exam Physical Exam: NO PHYSICAL EXAM. ECONSULT perfored Results & Data ([facility]) Vital Signs (Past 12 Hours) Vital Signs Temp Pulse Pulse Resp BP Pulse Ox O2 Del Method 08/23/22 11:55 Mechanical Vent 08/23/22 13:00 37.4 C 82 14 99 08/23/22 13:00 116/70 08/23/22 12:45 37.4 C 83 14 98 08/23/22 12:45 113/75 08/23/22 12:30 37.4 C 83 14 97 08/23/22 12:30 123/78 08/23/22 12:15 37.4 C 89 14 96 08/23/22 12:15 122/77 08/23/22 12:00 37.5 C 95 H 14 97 08/23/22 12:00 135/79 08/23/22 11:50 37.5 C 80 12 100 08/23/22 11:50 121/64 08/23/22 11:48 125/74 08/23/22 11:48 37.5 C 86 12 100 08/23/22 11:45 37.5 C 72 12 100 Mechanical Vent 08/23/22 11:45 134/75 08/23/22 11:44 37.5 C 76 100 Mechanical Vent 08/23/22 11:43 37.5 C 79 100 Mechanical Vent 08/23/22 11:43 139/87 08/23/22 11:42 37.5 C 85 10 L 100 Mechanical Vent 08/23/22 11:40 37.5 C 87 100 Mechanical Vent 08/23/22 11:40 150/79 H 08/23/22 11:38 37.5 C 96 H 12 100 Mechanical Vent 08/23/22 11:37 156/106 H 08/23/22 11:37 37.5 C 81 13 100 Mechanical Vent 08/23/22 11:36 37.5 C 80 12 100 Mechanical Vent 08/23/22 11:35 149/86 H 08/23/22 11:35 37.5 C 88 12 100 Mechanical Vent 08/23/22 11:34 37.5 C 87 100 Mechanical Vent 08/23/22 11:33 147/77 H 08/23/22 11:33 37.5 C 77 100 Mechanical Vent 08/23/22 11:32 37.5 C 78 14 100 Mechanical Vent 08/23/22 11:30 37.5 C 87 14 100 Mechanical Vent 08/23/22 11:30 127/88 08/23/22 11:28 37.5 C 78 12 100 08/23/22 11:27 152/98 H 08/23/22 11:27 37.5 C 81 14 100 08/23/22 11:26 37.5 C 80 14 100 08/23/22 11:25 129/92 08/23/22 11:25 37.5 C 68 12 08/23/22 11:24 37.5 C 70 14 100 08/23/22 11:22 37.5 C 71 12 100 08/23/22 11:22 123/76 08/23/22 11:20 37.5 C 78 14 100 08/23/22 11:54 74 15 100 08/23/22 08:00 Mechanical Vent 08/23/22 08:00 08/23/22 08:00 77 08/23/22 08:00 37.7 C H 91 H 12 98 08/23/22 08:00 115/77 08/23/22 07:00 37.8 C H 80 14 100 08/23/22 07:00 96/55 L 08/23/22 07:36 74 15 100 08/23/22 07:31 74 14 100 Mechanical Vent 08/23/22 05:00 37.7 C H 88 14 100 08/23/22 05:00 104/65 08/23/22 04:00 37.8 C H 82 14 100 08/23/22 04:00 95/60 L 08/23/22 03:00 37.8 C H 85 14 99 08/23/22 04:00 08/23/22 03:25 90 15 100 FiO2 08/23/22 11:55 08/23/22 13:00 08/23/22 13:00 08/23/22 12:45 08/23/22 12:45 08/23/22 12:30 08/23/22 12:30 08/23/22 12:15 08/23/22 12:15 08/23/22 12:00 08/23/22 12:00 08/23/22 11:50 08/23/22 11:50 08/23/22 11:48 08/23/22 11:48 08/23/22 11:45 100 08/23/22 11:45 08/23/22 11:44 100 08/23/22 11:43 100 08/23/22 11:43 08/23/22 11:42 100 08/23/22 11:40 100 08/23/22 11:40 08/23/22 11:38 100 08/23/22 11:37 08/23/22 11:37 100 08/23/22 11:36 100 08/23/22 11:35 08/23/22 11:35 100 08/23/22 11:34 100 08/23/22 11:33 08/23/22 11:33 100 08/23/22 11:32 100 08/23/22 11:30 100 08/23/22 11:30 08/23/22 11:28 08/23/22 11:27 08/23/22 11:27 08/23/22 11:26 08/23/22 11:25 08/23/22 11:25 08/23/22 11:24 08/23/22 11:22 08/23/22 11:22 08/23/22 11:20 08/23/22 11:54 30 08/23/22 08:00 30 08/23/22 08:00 30 08/23/22 08:00 08/23/22 08:00 08/23/22 08:00 08/23/22 07:00 08/23/22 07:00 08/23/22 07:36 30 08/23/22 07:31 30 08/23/22 05:00 08/23/22 05:00 08/23/22 04:00 08/23/22 04:00 08/23/22 03:00 08/23/22 04:00 30 08/23/22 03:25 30 Laboratory Results Laboratory Results - last 48 hr 08/22/22 08/22/22 08/22/22 06:08 06:08 06:14 WBC 9.72 RBC 2.75 L Hgb 8.0 L Hct 25.8 L MCV 93.8 MCH 29.1 MCHC 31.0 L RDW Std Deviation 55.5 H RDW Coeff of Aissatou 16.8 H Plt Count 573 H MPV 8.3 L Sodium 137 Potassium 3.6 Chloride 103 Carbon Dioxide 25 Anion Gap 9 BUN 14 Creatinine < 0.20 L Est Cr Clr Drug Dosing 565.9 Est GFR ( Amer) > 150.0 Est GFR (Non-Af Amer) > 150.0 BUN/Creatinine Ratio TNP Glucose 139 H POC Glucose 147 H Calcium 9.0 Phosphorus Magnesium Procalcitonin Fluid Comment 08/22/22 08/22/22 08/22/22 13:49 18:14 23:07 WBC RBC Hgb Hct MCV MCH MCHC RDW Std Deviation RDW Coeff of Aissatou Plt Count MPV Sodium Potassium Chloride Carbon Dioxide Anion Gap BUN Creatinine Est Cr Clr Drug Dosing Est GFR ( Amer) Est GFR (Non-Af Amer) BUN/Creatinine Ratio Glucose POC Glucose 123 H 149 H 90 Calcium Phosphorus Magnesium Procalcitonin Fluid Comment 08/23/22 08/23/22 08/23/22 04:56 05:37 05:37 WBC 11.42 H RBC 2.76 L Hgb 8.1 L Hct 25.7 L MCV 93.1 MCH 29.3 MCHC 31.5 L RDW Std Deviation 55.0 H RDW Coeff of Aissatou 16.6 H Plt Count 652 H MPV 8.6 L Sodium 138 Potassium 3.7 Chloride 103 Carbon Dioxide 24 Anion Gap 11 BUN 13 Creatinine < 0.20 L Est Cr Clr Drug Dosing 565.9 Est GFR ( Amer) > 150.0 Est GFR (Non-Af Amer) > 150.0 BUN/Creatinine Ratio TNP Glucose 98 POC Glucose 106 H Calcium 9.3 Phosphorus 3.3 Magnesium 1.9 Procalcitonin Fluid Comment 08/23/22 08/23/22 08/23/22 09:01 13:23 Unknown WBC RBC Hgb Hct MCV MCH MCHC RDW Std Deviation RDW Coeff of Aissatou Plt Count MPV Sodium Potassium Chloride Carbon Dioxide Anion Gap BUN Creatinine Est Cr Clr Drug Dosing Est GFR ( Amer) Est GFR (Non-Af Amer) BUN/Creatinine Ratio Glucose POC Glucose 88 Calcium Phosphorus Magnesium Procalcitonin 0.12 Fluid Comment Diagnostic Findings Microbiology 08/13/22 12:44 Blood Aerobic Blood Culture - Final No growth in Aerobic bottle after 5 days. 08/13/22 12:44 Blood Anaerobic Blood Culture - Final No growth in Anaerobic bottle after 5 days. 08/13/22 12:48 Blood Aerobic Blood Culture - Final No growth in Aerobic bottle after 5 days. 08/13/22 12:48 Blood Anaerobic Blood Culture - Final 08/18/22 11:27 Blood Fungal Smear - Final 08/06/22 09:33 Blood Fungal Smear - Final 08/06/22 09:33 Blood Fungal Culture - Preliminary No yeast or fungus isolated - Report 2, Additional report to follow. 08/13/22 17:38 Urine,Indwelling Cath Urine Culture - Final No growth - less than 1,000 colonies/mL. 08/13/22 16:00 Sputum,Trach Gram Stain - Final 08/13/22 16:00 Sputum,Trach Sputum Culture - Final Serratia marcescens 08/05/22 17:26 Blood Aerobic Blood Culture - Final No growth in Aerobic bottle after 5 days. 08/05/22 17:26 Blood Anaerobic Blood Culture - Final 08/05/22 15:00 Blood Aerobic Blood Culture - Final No growth in Aerobic bottle after 5 days. 08/05/22 15:00 Blood Anaerobic Blood Culture - Final No growth in Anaerobic bottle after 5 days. 08/05/22 14:30 Sputum,Trach Gram Stain - Final 08/05/22 14:30 Sputum,Trach Sputum Culture - Final Staphylococcus aureus Klebsiella pneumoniae Medications Administered Home Medications Medication Instructions Recorded Confirmed Last Taken acetaminophen 160 mg/5 mL oral 640 mg feeding tube Q6 PRN Pain, 05/07/22 06/10/22 Unknown liquid (Children's Acetaminophen) Moderate atropine 1 % eye drops 1 drp sublingual QID PRN increased 05/07/22 06/10/22 Unknown secretions cholecalciferol (vitamin D3) 25 1,000 unit feeding tube DAILY 05/07/22 06/10/22 Unknown mcg (1,000 unit) capsule (Vitamin D3) ibuprofen 100 mg/5 mL oral 400 mg feeding tube Q6 PRN Pain, 05/07/22 06/10/22 Unknown suspension Moderate melatonin 3 mg tablet 3 - 6 mg PO HS PRN Sleep 05/07/22 06/10/22 Unknown nystatin 100,000 unit/gram topical 1 applic topical DAILY PRN Rash 05/07/22 06/10/22 Unknown powder tramadol 50 mg tablet 50 mg feeding tube Q6H PRN Pain 05/07/22 06/10/22 Unknown zinc oxide 20 % topical ointment 1 applic topical TID 05/07/22 06/10/22 Unknown A,D-aloe avio-basqwavfyd-r.pet 1 ea topical BID PRN scrotal area 06/10/22 06/10/22 Unknown topical ointment carboxymethylcellulose sodium 0.5 1 drp ophthalmic (eye) UD PRN Dry 06/10/22 06/10/22 Unknown % eye drops Eye(S) dextran 70-hypromellose (PF) 0.1 1 drp OPB QID 06/10/22 06/10/22 Unknown %-0.3 % eye drops in a dropperette (Artificial Tears (PF)) famotidine 40 mg/5 mL (8 mg/mL) 20 mg feeding tube BID PRN 06/10/22 06/10/22 Unknown oral suspension Indigestion guaifenesin 100 mg/5 mL oral liquid 200 mg feeding tube BID PRN Cough 06/10/22 06/10/22 Unknown ipratropium bromide 21 mcg (0.03 2 spray intranasal TID 06/10/22 06/10/22 Unknown %) nasal spray lidocaine 5 % topical ointment 1 applic topical BID PRN Pain 06/10/22 06/10/22 Unknown midodrine 5 mg tablet 5 mg feeding tube TID 06/10/22 06/10/22 Unknown nut.tx impaired digestive 1 ea feeding tube UD 06/10/22 06/10/22 Unknown fxn-fiber 0.07 gram-1.5 kcal/mL oral liquid (Vital 1.5 Cali) polyethylene glycol 3350 17 17 g feeding tube DAILY PRN 06/10/22 06/10/22 Unknown gram/dose oral powder (Miralax) Constipation riluzole 50 mg tablet 50 mg feeding tube DAILY 06/10/22 06/10/22 Unknown senna leaf extract 176 mg/5 mL 15 ml feeding tube BID PRN 06/10/22 06/10/22 Unknown oral syrup (senna) Constipation white petrolatum-mineral oil 57.3 1 applic ophthalmic (eye) HS 06/10/22 06/10/22 Unknown %-42.5 % eye ointment (Lubricant Eye) lansoprazole 15 mg delayed 15 mg PO DAILY #0 tabs 06/16/22 Unknown release,disintegrating tablet (Prevacid SoluTab) Active Medications Generic Name Dose Route Start Last Admin Trade Name Freq PRN Reason Stop Dose Admin Acetaminophen 650 mg 08/20/22 17:26 08/22/22 16:57 Acetaminophen Susp 325 Mg/10.15 Ml Udc PO 09/19/22 17:25 650 mg Q4H PRN Administration Pain or Fever Albuterol 2.5 mg 08/06/22 00:04 08/16/22 19:31 Albuterol 0.083% Nebu Soln 3 Ml Vial NEB 09/05/22 00:03 2.5 mg Q6R PRN Administration cough wheeze Protocol Artificial Tears 1 drops 08/06/22 00:37 08/22/22 12:38 Artificial Tears OP 09/05/22 00:36 1 drops UD PRN Administration Dry Eye(S) Artificial Tears 1 drops 08/06/22 09:00 08/23/22 12:21 Artificial Tears OP 09/05/22 08:59 1 drops QID MYNOR Administration Atropine Sulfate 1 drops 08/06/22 00:06 08/21/22 20:08 Atropine Sulfate 1% Op Soln 5 Ml Btl SL 09/05/22 00:05 1 drops QID PRN Administration increased secretions Calamine/Phenol 1 appln 08/11/22 19:15 08/13/22 20:44 Menthol-Zinc Oxide 360 Appln/120 Gm Tube EXT 09/10/22 19:14 1 appln DAILY PRN Administration SKIN IRRITATION Enoxaparin Sodium 40 mg 08/06/22 09:00 08/10/22 08:58 Enoxaparin Inj 40 Mg/0.4 Ml Syr SQ 09/05/22 08:59 40 mg QAM MYNOR Administration Enteral Nutritional Formula 1,000 ml 08/06/22 11:00 08/22/22 02:49 Peptamen 1.5 Cali 1,000 Ml Bag JT 09/05/22 10:59 1,000 ml UD MYNOR Administration Protocol Hydromorphone HCl 2 mg 08/19/22 16:56 08/23/22 11:03 Hydromorphone Hcl 2 Mg Tab PO 09/02/22 16:55 2 mg Q6 PRN Administration MODERATE Pain Hydromorphone HCl 0.5 mg 08/19/22 16:56 08/23/22 08:39 Hydromorphone Inj 0.5 Mg/0.5 Ml Syr IV 09/02/22 16:59 0.5 mg Q6H PRN Administration severe pain Lactated Ringer's 1,000 mls @ 50 mls/hr 08/23/22 00:00 08/22/22 23:48 Lr IV 09/22/22 00:00 50 mls/hr .Q20H MYNOR Administration Insulin Aspart 0 units 08/07/22 12:00 08/20/22 12:07 Insulin Aspart Per Unit SC 09/06/22 11:59 4 units Q6 MYNOR Administration Lansoprazole 15 mg 08/06/22 09:00 08/23/22 08:25 Lansoprazole 15 Mg Soltab PO 09/05/22 08:59 15 mg DAILY MYNOR Administration Melatonin 3 - 6 mg 08/06/22 00:06 08/17/22 21:31 Melatonin 3 Mg Tab PO 09/05/22 00:05 6 mg HS PRN Administration Sleep Midodrine 5 mg 08/06/22 00:30 08/23/22 11:03 Midodrine Hcl 2.5 Mg Tab PO 09/05/22 00:29 5 mg TID@0800,1200,1800 MYNOR Administration Multi-Ingredient Cream 1 appln 08/06/22 00:06 08/22/22 20:04 Artificial Tears Op Oint 3.5 Gm Tube OP 09/05/22 00:05 Not Given HS MYNOR Senna/Docusate Sodium 1 tab 08/23/22 12:15 08/23/22 13:16 Docusate Sodium/Senna 50/8.6mg Tab PO 09/22/22 12:14 1 tab QAM MYNOR Administration Sodium Chloride 4 ml 08/06/22 19:00 08/23/22 07:23 Sodium Chlor 7% 4 Ml Neb NEB 09/05/22 18:59 4 ml BIDR MYNOR Administration Sterile Water 250 ml 08/08/22 10:00 08/23/22 12:36 Tube Feeding Water Flush JT 09/07/22 09:59 Not Given Q8H MYNOR Tramadol HCl 50 mg 08/06/22 00:06 08/21/22 23:31 Tramadol Hcl 50 Mg Tablet NG 09/05/22 00:05 50 mg Q6H PRN Administration mild Pain Vitamin D 1,000 units 08/06/22 09:00 08/23/22 08:25 Cholecalciferol 1,000 Units 25 Mcg Tab JT 09/05/22 08:59 1,000 units DAILY MYNOR Administration
[2022-08-23 14:06] LABS: Eosinophil Body Fluid Man 0 %; Fluid Mono/Macrophage 1 %; Lymphocyte Body Fluid Man 3 %; Neutrophil Body Fluid Man 96 %
--- NOTE | 2022-08-23 14:19 | Hospitalist Progress Note ---
Date of Service August 23, 2022 Assessment & Plan (1) Sepsis: Plan (1) Severe sepsis: Plan: Met sepsis criteria on admission with leukocytosis 27.5, febrile, lactate 3.9 and tachycardia -likely pulm source, +sputum culture Admission CT chest with possible pneumonia noted CT abd/pelvis showed resolving acute pancreatitis with decreased size of the numerous peripancreatic fluid collections suggestive of pseudocysts. Admitting Sputum cx positive for staph aureus and klebsiella pna blood cx no growth Repeat CT abd/pelvis showedprogressively worsened acute pancreatitis with mildly increased amount of abdominal ascites. Numerous peripancreatic fluid collections appear to be generally stable from the exam obtained 6 days earlier. GI was consulted, no intervention. Repeat CT chest showed small left and trace right pleural effusions with persistent bibasilar consolidation. Initially patient was spiking fever despite Unasyn, ID was consulted and thought to be drug fevers, changed to cefepime 08/13/2022. Stool for C. difficile negative. Repeat blood culture NG5D, urine culture negative, respiratory culture with pansensitive Serratia. Status post 17 days of antibiotic, completed on 08/17. Fungal stain with no evidence of fungal infection, caspofungin is stopped per ID. WBC for normal for few days, again started to creep up, patient w/ borderline fever most of the time. 08/23 Procal is down and negative. D/w ID who re- evaluated the patient, recs noted -- monitor off Atb, Bl Cx if temp >100.5, Empiric zosyn and vanco if patient becomes unstable (fever, tachy, increased O2 req, hypotensive) s/p trach exchange 08/23, f/u RLL bronchial washings C/S Draw blood Cx if patient needed to be started on atb. CBC in AM. Follow-up with cryptococcal antigen and histo antigen. F/u Fungal Cx 08/18. Continue to monitor off antibiotic. (2) Chronic respiratory failure: Plan: - wean to baseline vent settings per pulm - ventilator dependent. - at baseline at this time - reported air leak in trach and need for possible up-sizing, status post tracheostomy tube back since 08/23/2022. (3) Pseudocyst of pancreas: Plan: - initial CT with resolving acute pancreatitis with decreasing size of pseudocysts. - Repeat CT abd/pelvis showedprogressively worsened acute pancreatitis with mildly increased amount of abdominal ascites. Numerous peripancreatic fluid collections appear to be generally stable from the exam obtained 6 days earlier. - radiology consulted for paracentesis diagnostic - not enough fluid for para at this time - no likely source of infection and too small to drain either way - s/p IV abx (4) Abnormal LFTs: Plan: - likely related to sepsis-improved - CT A/P noted - monitor (5) Electrolyte imbalance: Plan: - replete prn (6) ALS (amyotrophic lateral sclerosis): Plan: - bedbound with quadriplegia, has trach on vent. - continue vent support. - continue home riluzole (7) Left ventricular systolic dysfunction: Plan: - euvolemic, off IVF. - ontinues with free water flushes Plan DVT ppx- sc lovenox on hold, scds on Code Status: Full Code Dispo: PCU Admission and Anticipated Discharge Date Admission Date: August 05, 2022 Subjective Patient seen and examined at bedside as a follow-up of severe sepsis POA likely secondary to pneumonia. Patient was lying in bed, on his baseline ventilation settings via tracheostomy tube, NAD, reports occasional difficulty breathing, reports feeling fine otherwise, denies chest pain or issues with breathing. Patient communicates through machine. Pt's at bedside who also has no concerns. Physical Exam Physical Exam: GENERAL: Alert and alert. NAD, on mechanical ventilation via trach. HEENT: No pallor, no icterus. Pupils equal, round and reactive to light. Oral mucosa moist. NECK: No JVD, no neck masses. HEART: S1 and S2 heard. Regular rate and rhythm. No murmur, no gallop. RESPIRATORY SYSTEM: Normal AP diameter. No accessory muscle use. No wheezing, mild b/b rales. ABDOMEN: Soft, bowel sounds present, nontender, no distention. G-J tube in situ. CENTRAL NERVOUS SYSTEM: No facial droop. quadriparesis, +2 pulses b/l dorsalis pedis. Communicates via machine. EXTREMITIES: No edema, no erythema seen. Stage I-II decubitus ulcer. Results & Data Results & Data ([facility]) Vital Signs (Past 12 Hours) Vital Signs Temp Pulse Pulse Resp BP Pulse Ox O2 Del Method 08/23/22 11:55 Mechanical Vent 08/23/22 13:00 37.4 C 82 14 99 08/23/22 13:00 116/70 08/23/22 12:45 37.4 C 83 14 98 08/23/22 12:45 113/75 08/23/22 12:30 37.4 C 83 14 97 08/23/22 12:30 123/78 08/23/22 12:15 37.4 C 89 14 96 08/23/22 12:15 122/77 08/23/22 12:00 37.5 C 95 H 14 97 08/23/22 12:00 135/79 08/23/22 11:50 37.5 C 80 12 100 08/23/22 11:50 121/64 08/23/22 11:48 125/74 08/23/22 11:48 37.5 C 86 12 100 08/23/22 12:00 08/23/22 11:45 37.5 C 72 12 100 Mechanical Vent 08/23/22 11:45 134/75 08/23/22 11:44 37.5 C 76 100 Mechanical Vent 08/23/22 11:43 37.5 C 79 100 Mechanical Vent 08/23/22 11:43 139/87 08/23/22 11:42 37.5 C 85 10 L 100 Mechanical Vent 08/23/22 11:40 37.5 C 87 100 Mechanical Vent 08/23/22 11:40 150/79 H 08/23/22 11:38 37.5 C 96 H 12 100 Mechanical Vent 08/23/22 11:37 156/106 H 08/23/22 11:37 37.5 C 81 13 100 Mechanical Vent 08/23/22 11:36 37.5 C 80 12 100 Mechanical Vent 08/23/22 11:35 149/86 H 08/23/22 11:35 37.5 C 88 12 100 Mechanical Vent 08/23/22 11:34 37.5 C 87 100 Mechanical Vent 08/23/22 11:33 147/77 H 08/23/22 11:33 37.5 C 77 100 Mechanical Vent 08/23/22 11:32 37.5 C 78 14 100 Mechanical Vent 08/23/22 11:30 37.5 C 87 14 100 Mechanical Vent 08/23/22 11:30 127/88 08/23/22 11:28 37.5 C 78 12 100 08/23/22 11:27 152/98 H 08/23/22 11:27 37.5 C 81 14 100 08/23/22 11:26 37.5 C 80 14 100 08/23/22 11:25 129/92 08/23/22 11:25 37.5 C 68 12 08/23/22 11:24 37.5 C 70 14 100 08/23/22 11:22 37.5 C 71 12 100 08/23/22 11:22 123/76 08/23/22 11:20 37.5 C 78 14 100 08/23/22 11:54 74 15 100 08/23/22 08:00 Mechanical Vent 08/23/22 08:00 08/23/22 08:00 77 08/23/22 08:00 37.7 C H 91 H 12 98 08/23/22 08:00 115/77 08/23/22 07:00 37.8 C H 80 14 100 08/23/22 07:00 96/55 L 08/23/22 07:36 74 15 100 08/23/22 07:31 74 14 100 Mechanical Vent 08/23/22 05:00 37.7 C H 88 14 100 08/23/22 05:00 104/65 08/23/22 04:00 37.8 C H 82 14 100 08/23/22 04:00 95/60 L 08/23/22 03:00 37.8 C H 85 14 99 08/23/22 04:00 08/23/22 03:25 90 15 100 FiO2 08/23/22 11:55 08/23/22 13:00 08/23/22 13:00 08/23/22 12:45 08/23/22 12:45 08/23/22 12:30 08/23/22 12:30 08/23/22 12:15 08/23/22 12:15 08/23/22 12:00 08/23/22 12:00 08/23/22 11:50 08/23/22 11:50 08/23/22 11:48 08/23/22 11:48 08/23/22 12:00 30 08/23/22 11:45 100 08/23/22 11:45 08/23/22 11:44 100 08/23/22 11:43 100 08/23/22 11:43 08/23/22 11:42 100 08/23/22 11:40 100 08/23/22 11:40 08/23/22 11:38 100 08/23/22 11:37 08/23/22 11:37 100 08/23/22 11:36 100 08/23/22 11:35 08/23/22 11:35 100 08/23/22 11:34 100 08/23/22 11:33 08/23/22 11:33 100 08/23/22 11:32 100 08/23/22 11:30 100 08/23/22 11:30 08/23/22 11:28 08/23/22 11:27 08/23/22 11:27 08/23/22 11:26 08/23/22 11:25 08/23/22 11:25 08/23/22 11:24 08/23/22 11:22 08/23/22 11:22 08/23/22 11:20 08/23/22 11:54 30 08/23/22 08:00 30 08/23/22 08:00 30 08/23/22 08:00 08/23/22 08:00 08/23/22 08:00 08/23/22 07:00 08/23/22 07:00 08/23/22 07:36 30 08/23/22 07:31 30 08/23/22 05:00 08/23/22 05:00 08/23/22 04:00 08/23/22 04:00 08/23/22 03:00 08/23/22 04:00 30 08/23/22 03:25 30 (1) Sepsis Sepsis type: sepsis due to unspecified organism Sepsis acute organ dysfunction status: unspecified Qualified Code(s): A41.9 - Sepsis, unspecified organism
--- NOTE | 2022-08-23 16:03 | XRay Report ---
XR chest 1V portable CLINICAL HISTORY: f/u cxr TECHNIQUE: Single frontal radiograph of the chest was obtained. Comparison: Comparison is made to chest radiograph 11/11/2021 FINDINGS: Tracheostomy tube is seen. Cardiomegaly is noted. Bilateral lower lung predominant airspace opacities are seen. Likely small bilateral pleural effusions are seen. IMPRESSION: 1. Redemonstration of likely bilateral pleural effusions and bilateral lower lung predominant airspa ce opacities which likely represent atelectasis with or without superimposed aspiration/pneumonia. 2. Stable cardiomegaly. ACT 112: Negative or not required by law. Electronically signed by: Suhas Acevedo M.D. 08/23/2022 4:02 PM
[2022-08-23] MEDS: PEPTAMEN 1.5 CAL 1,000 ML BAG JT SCH (18:02)
[2022-08-23] MEDS: ACETAMINOPHEN SUSP 325 MG/10.15 ML UDC PO PRN (20:00)
[2022-08-23] MEDS: ARTIFICIAL TEARS OP OINT 3.5 GM TUBE OP SCH (20:02)
[2022-08-23] MEDS: traMADol HCL 50 MG TABLET NG PRN (21:30)
[2022-08-23 22:11] LABS: Cryptococcal Antigen Not Detected (Not Detected); Source Serum
[2022-08-24] MEDS: TUBE FEEDING WATER FLUSH JT SCH ×3 (03:26→17:23)
[2022-08-24] MEDS: HYDROmorphone HCL 2 MG TAB PO PRN ×2 (03:26→22:13)
[2022-08-24] MEDS: HYDROmorphone INJ 0.5 MG/0.5 ML SYR IV PRN ×2 (06:00→19:36)
[2022-08-24 06:22] LABS: Hematocrit (blood only) 26.3 % (40.1-51.0); Hemoglobin 8.3 g/dl (14.0-18.0); Mean Corpuscular Hemoglobin 29.5 pg (25.0-34.0); Mean Corpuscular Hgb Conc 31.6 g/dL (32.0-36.0); Mean Corpuscular Volume 93.6 fL (80.0-100.0); Mean Platelet Volume 8.5 fL (9.4-12.4); Platelet Count 640 K/uL (130-400); RDW Coefficient of Variation 16.6 % (11.5-14.5); Red Blood Count 2.81 M/uL (4.63-6.08); White Blood Count 13.74 K/ul (4.8-10.8)
[2022-08-24] MEDS: SODIUM CHLOR 7% 4 ML NEB NEB SCH ×2 (07:06→20:00)
--- NOTE | 2022-08-24 08:47 | Ears,Nose,Throat Progress Note ---
Date of Service August 24, 2022 Assessment & Plan (1) History of tracheostomy: Plan: improved with #8 Christian Admission and Anticipated Discharge Date Admission Date: August 05, 2022 Subjective improved, no leak, slept well Physical Exam Neck: trach in place Results & Data ([facility]) Vital Signs (Past 12 Hours) Vital Signs Temp Pulse Pulse Resp BP Pulse Ox O2 Del Method 08/24/22 07:26 95 H 15 100 08/24/22 07:25 94 H 15 100 Mechanical Vent 08/24/22 05:00 37.4 C 88 14 96/56 L 99 Mechanical Vent 08/24/22 04:00 37.3 C 79 14 94/58 L 99 Mechanical Vent 08/24/22 03:00 37.2 C 78 14 98/54 L 99 Mechanical Vent 08/24/22 04:00 08/24/22 03:04 80 14 100 08/24/22 02:00 37.0 C 88 14 105/58 L 99 Mechanical Vent 08/24/22 01:00 36.8 C 85 14 107/66 99 Mechanical Vent 08/23/22 23:36 15 08/24/22 00:00 36.9 C 86 14 108/62 99 Mechanical Vent 08/24/22 00:00 08/23/22 23:00 37.1 C 70 14 102/58 L 99 Mechanical Vent 08/23/22 22:00 37.2 C 82 14 102/53 L 99 Mechanical Vent 08/23/22 21:00 37.3 C 86 14 103/59 L 99 Mechanical Vent FiO2 08/24/22 07:26 30 08/24/22 07:25 30 08/24/22 05:00 30 08/24/22 04:00 30 08/24/22 03:00 30 08/24/22 04:00 30 08/24/22 03:04 30 08/24/22 02:00 30 08/24/22 01:00 30 08/23/22 23:36 30 08/24/22 00:00 30 08/24/22 00:00 30 08/23/22 23:00 30 08/23/22 22:00 30 08/23/22 21:00 30
[2022-08-24] MEDS: DOCUSATE SODIUM/SENNA 50/8.6MG TAB PO SCH (08:53)
[2022-08-24] MEDS: CHOLECALCIFEROL 1,000 UNITS 25 MCG TAB JT SCH (08:54)
[2022-08-24] MEDS: LANSOPRAZOLE 15 MG SOLTAB PO SCH (08:54)
[2022-08-24] MEDS: MIDODRINE HCL 2.5 MG TAB PO SCH ×3 (08:54→17:23)
[2022-08-24] MEDS: ARTIFICIAL TEARS OP SCH ×4 (08:55→20:15)
--- NOTE | 2022-08-24 10:11 | Pulmonology Progress Note ---
Date of Service August 24, 2022 Assessment & Plan (1) Ventilator dependence: (2) ALS (amyotrophic lateral sclerosis): Plan Impression: 37-year-old male vent dependent due to ALS admitted with sepsis found to have sensitive Klebsiella and Serratia growing from tracheal aspirate as well as methicillin sensitive staph. He is completed a course of antibiotics and is being followed by the infectious disease service. His trach upsized yesterday due to issues regarding leak and this appears to have resolved. Recommendations: 1. Ventilator dependence due to ALS: Continue current vent settings. The patient appears to be oxygenating and ventilating well. 2. Acute purulent tracheitis: Cultures pending from bronchoscopy but gram stain showed no organisms. Antibiotics per ID. 3. Tracheostomy in place. Size 8 Shiley placed by ENT. Patient feels better. Will continue to follow for respiratory/ventilator issues. Disposition per primary service. Unclear if the patient can return home or would be best served by long-term care facility. His acute issues appear to have been resolved. Admission and Anticipated Discharge Date Admission Date: August 05, 2022 Subjective Patient seen and examined. Discussed with off going hospital cleaner. The patient had his trach changed yesterday. He states he feels much better. He is breathing comfortably. He continues on his home vent settings. He has been afebrile but his white count is slightly increased Review of Systems Review of Systems: All systems reviewed & are unremarkable except as noted in Subjective Physical Exam Physical Exam: Constitutional: No acute distress HEENT: trach site clean dry and intact. No leak Respiratory system: Decreased breath sounds bilaterally without wheezing. No crackles CVS: S1-S2 positive, no murmurs or gallops Abdomen: Soft, nontender, nondistended, positive bowel sounds x4, positive G-J tube Extremities: +2 pulses bilaterally radialis/ dorsalis pedis, no cyanosis, +1 pitting edema bilateral lower extremity Neuro: Awake, communicates via eye movements. G/U: Positive Varela Musculoskeletal: Stage I-II decubitus ulcer Results & Data Results & Data ([facility]) Vital Signs (Past 12 Hours) Vital Signs Temp Pulse Pulse Resp BP Pulse Ox O2 Del Method 08/24/22 08:40 Mechanical Vent 08/24/22 08:00 08/24/22 07:26 95 H 15 100 08/24/22 07:25 94 H 15 100 Mechanical Vent 08/24/22 05:00 37.4 C 88 14 96/56 L 99 Mechanical Vent 08/24/22 04:00 37.3 C 79 14 94/58 L 99 Mechanical Vent 08/24/22 03:00 37.2 C 78 14 98/54 L 99 Mechanical Vent 08/24/22 04:00 08/24/22 03:04 80 14 100 08/24/22 02:00 37.0 C 88 14 105/58 L 99 Mechanical Vent 08/24/22 01:00 36.8 C 85 14 107/66 99 Mechanical Vent 08/23/22 23:36 15 08/24/22 00:00 36.9 C 86 14 108/62 99 Mechanical Vent 08/24/22 00:00 08/23/22 23:00 37.1 C 70 14 102/58 L 99 Mechanical Vent FiO2 08/24/22 08:40 0.3 08/24/22 08:00 30 08/24/22 07:26 30 08/24/22 07:25 30 08/24/22 05:00 30 08/24/22 04:00 30 08/24/22 03:00 30 08/24/22 04:00 30 08/24/22 03:04 30 08/24/22 02:00 30 08/24/22 01:00 30 08/23/22 23:36 30 08/24/22 00:00 30 08/24/22 00:00 30 08/23/22 23:00 30 Laboratory Results 08/24/22 05:20 08/23/22 05:37 Microbiology 08/23/22 Unknown Bronch Wash,Right Lower Lobe Gram Stain - Final 08/13/22 12:44 Blood Aerobic Blood Culture - Final No growth in Aerobic bottle after 5 days. 08/13/22 12:44 Blood Anaerobic Blood Culture - Final No growth in Anaerobic bottle after 5 days. 08/13/22 12:48 Blood Aerobic Blood Culture - Final No growth in Aerobic bottle after 5 days. 08/13/22 12:48 Blood Anaerobic Blood Culture - Final 08/18/22 11:27 Blood Fungal Smear - Final 08/06/22 09:33 Blood Fungal Smear - Final 08/06/22 09:33 Blood Fungal Culture - Preliminary No yeast or fungus isolated - Report 2, Additional report to follow. 08/13/22 17:38 Urine,Indwelling Cath Urine Culture - Final No growth - less than 1,000 colonies/mL. 08/13/22 16:00 Sputum,Trach Gram Stain - Final 08/13/22 16:00 Sputum,Trach Sputum Culture - Final Serratia marcescens 08/05/22 17:26 Blood Aerobic Blood Culture - Final No growth in Aerobic bottle after 5 days. 08/05/22 17:26 Blood Anaerobic Blood Culture - Final 08/05/22 15:00 Blood Aerobic Blood Culture - Final No growth in Aerobic bottle after 5 days. 08/05/22 15:00 Blood Anaerobic Blood Culture - Final No growth in Anaerobic bottle after 5 days. 08/05/22 14:30 Sputum,Trach Gram Stain - Final 08/05/22 14:30 Sputum,Trach Sputum Culture - Final Staphylococcus aureus Klebsiella pneumoniae Diagnostic Findings No new imaging PG Care Time/CCT Total # of Minutes Spent Total Time Spent with Patient: Total time spent is greater than 50% in coordination of care (as documented) at patient's floor/unit and/or counseling patient: Coding Level of Care Code 29018 Subseq Hosp Care Lvl 2 Diagnoses Ventilator dependence Z99.11 ALS (amyotrophic lateral sclerosis) G12.21
[2022-08-24] MEDS: ACETAMINOPHEN SUSP 325 MG/10.15 ML UDC PO PRN (12:23)
[2022-08-24] MEDS: PEPTAMEN 1.5 CAL 1,000 ML BAG JT SCH (13:18)
--- NOTE | 2022-08-24 14:36 | Hospitalist Progress Note ---
Date of Service August 24, 2022 Assessment & Plan (1) Sepsis: Plan (1) Severe sepsis: Plan: Met sepsis criteria on admission with leukocytosis 27.5, febrile, lactate 3.9 and tachycardia -likely pulm source, +sputum culture Admission CT chest with possible pneumonia noted CT abd/pelvis showed resolving acute pancreatitis with decreased size of the numerous peripancreatic fluid collections suggestive of pseudocysts. Admitting Sputum cx positive for staph aureus and klebsiella pna blood cx no growth Repeat CT abd/pelvis showedprogressively worsened acute pancreatitis with mildly increased amount of abdominal ascites. Numerous peripancreatic fluid collections appear to be generally stable from the exam obtained 6 days earlier. GI was consulted, no intervention. Repeat CT chest showed small left and trace right pleural effusions with persistent bibasilar consolidation. Initially patient was spiking fever despite Unasyn, ID was consulted and thought to be drug fevers, changed to cefepime 08/13/2022. Stool for C. difficile negative. Repeat blood culture NG5D, urine culture negative, respiratory culture with pansensitive Serratia. Status post 17 days of antibiotic, completed on 08/17. Fungal stain with no evidence of fungal infection, caspofungin is stopped per ID. WBC for normal for few days, again started to climb up, patient afebrile lately, 08/23 and 08/24 Pro-Cali negative. 08/23 Procal is down and negative. ID re- evaluated 08/23 the patient, recs noted -- monitor off Atb, Bl Cx if temp >100.5, Empiric zosyn and vanco if patient becomes unstable (fever, tachy, increased O2 req, hypotensive) s/p trach exchange 08/23, f/u RLL bronchial washings C/S Draw blood Cx if patient needed to be started on atb. CBC in AM. 08/18 cryptococcal serum and histoplasma antigen negative. F/u Fungal Cx 08/18. Continue to monitor off antibiotic. (2) Chronic respiratory failure: Plan: - wean to baseline vent settings per pulm - ventilator dependent. - at baseline at this time - reported air leak in trach and need for possible up-sizing, status post tracheostomy tube exchange 08/23/2022. (3) Pseudocyst of pancreas: Plan: - initial CT with resolving acute pancreatitis with decreasing size of pseudocysts. - Repeat CT abd/pelvis showedprogressively worsened acute pancreatitis with mildly increased amount of abdominal ascites. Numerous peripancreatic fluid collections appear to be generally stable from the exam obtained 6 days earlier. - radiology consulted for paracentesis diagnostic - not enough fluid for para at this time - no likely source of infection and too small to drain either way - s/p IV abx (4) Abnormal LFTs: Plan: - likely related to sepsis-improved - CT A/P noted - monitor (5) Electrolyte imbalance: Plan: - replete prn (6) ALS (amyotrophic lateral sclerosis): Plan: - bedbound with quadriplegia, has trach on vent. - continue vent support. - continue home riluzole (7) Left ventricular systolic dysfunction: Plan: - euvolemic, off IVF. - ontinues with free water flushes Plan DVT ppx- sc lovenox on hold, scds on Code Status: Full Code Dispo: Likely to go home after trach tube supplies are arranged for. Text document was generated using voice recognition software. It may contain grammatical or spelling errors. Kindly contact undersigned for clarification of any documentation item in question. Admission and Anticipated Discharge Date Admission Date: August 05, 2022 Subjective Patient seen and examined at bedside as a follow-up of severe sepsis POA likely secondary to pneumonia. Patient was lying in bed, on his baseline ventilation settings via tracheostomy tube, NAD, had undergone tracheostomy tube exchange 08/23, reports feeling much better with regard to breathing, has not moved bowels since few days, increasing bowel regimen, patient has been afebrile lately but slight bump in WBC, Pro-Cali is negative. Patient reports feeling fine and at baseline, denies chest pain or issues with breathing. Patient communicates through machine. Physical Exam Physical Exam: GENERAL: Alert and alert. NAD, on mechanical ventilation via trach. HEENT: No pallor, no icterus. Pupils equal, round and reactive to light. Oral mucosa moist. NECK: No JVD, no neck masses. HEART: S1 and S2 heard. Regular rate and rhythm. No murmur, no gallop. RESPIRATORY SYSTEM: Normal AP diameter. No accessory muscle use. No wheezing, no crackles. ABDOMEN: Soft, bowel sounds present, nontender, no distention. G-J tube in situ. CENTRAL NERVOUS SYSTEM: No facial droop. quadriparesis, +2 pulses b/l dorsalis pedis. Communicates via machine. EXTREMITIES: No edema, no erythema seen. Stage I-II decubitus ulcer. Results & Data Results & Data ([facility]) Vital Signs (Past 12 Hours) Vital Signs Temp Pulse Pulse Resp BP Pulse Ox O2 Del Method 08/24/22 11:06 08/24/22 10:26 89 15 100 08/24/22 08:40 Mechanical Vent 08/24/22 08:00 08/24/22 07:26 95 H 15 100 08/24/22 07:25 94 H 15 100 Mechanical Vent 08/24/22 05:00 37.4 C 88 14 96/56 L 99 Mechanical Vent 08/24/22 04:00 37.3 C 79 14 94/58 L 99 Mechanical Vent 08/24/22 03:00 37.2 C 78 14 98/54 L 99 Mechanical Vent 08/24/22 04:00 08/24/22 03:04 80 14 100 FiO2 08/24/22 11:06 30 08/24/22 10:26 30 08/24/22 08:40 0.3 08/24/22 08:00 30 08/24/22 07:26 30 08/24/22 07:25 30 08/24/22 05:00 30 08/24/22 04:00 30 08/24/22 03:00 30 08/24/22 04:00 30 08/24/22 03:04 30 (1) Sepsis Sepsis type: sepsis due to unspecified organism Sepsis acute organ dysfunction status: unspecified Qualified Code(s): A41.9 - Sepsis, unspecified organism
[2022-08-24] MEDS: traMADol HCL 50 MG TABLET NG PRN (15:36)
[2022-08-24] MEDS: POLYETHYLENE (MIRALAX) 17 GM PACK PEG SCH (15:37)
[2022-08-24] MEDS: ARTIFICIAL TEARS OP OINT 3.5 GM TUBE OP SCH (20:16)
[2022-08-25] MEDS: HYDROmorphone INJ 0.5 MG/0.5 ML SYR IV PRN ×3 (01:51→17:21)
[2022-08-25] MEDS: TUBE FEEDING WATER FLUSH JT SCH ×3 (02:32→17:28)
[2022-08-25] MEDS: HYDROmorphone HCL 2 MG TAB PO PRN ×2 (05:56→21:57)
[2022-08-25] MEDS: SODIUM CHLOR 7% 4 ML NEB NEB SCH ×2 (07:09→19:57)
[2022-08-25] MEDS ORDERED: VANCOMYCIN HCL 1,750 MG in SODIUM CHLORIDE 0.9% 500 ML IV ONE (07:48)
[2022-08-25] MEDS ORDERED: VANCOMYCIN CONSULT ACTIVE PRN (07:48)
[2022-08-25] MEDS: LANSOPRAZOLE 15 MG SOLTAB PO SCH (08:04)
[2022-08-25] MEDS: MIDODRINE HCL 2.5 MG TAB PO SCH ×3 (08:04→17:28)
[2022-08-25] MEDS: DOCUSATE SODIUM/SENNA 50/8.6MG TAB PO SCH (08:04)
[2022-08-25] MEDS: CHOLECALCIFEROL 1,000 UNITS 25 MCG TAB JT SCH (08:05)
[2022-08-25] MEDS: POLYETHYLENE (MIRALAX) 17 GM PACK PEG SCH (08:05)
[2022-08-25] MEDS: ARTIFICIAL TEARS OP SCH ×4 (08:15→20:33)
[2022-08-25 08:16] LABS: Hematocrit (blood only) 26.3 % (40.1-51.0); Hemoglobin 8.3 g/dl (14.0-18.0); Mean Corpuscular Hemoglobin 29.2 pg (25.0-34.0); Mean Corpuscular Hgb Conc 31.6 g/dL (32.0-36.0); Mean Corpuscular Volume 92.6 fL (80.0-100.0); Mean Platelet Volume 8.5 fL (9.4-12.4); Platelet Count 567 K/uL (130-400); RDW Coefficient of Variation 16.4 % (11.5-14.5); RDW Standard Deviation 54.5 fL (36.4-46.3); Red Blood Count 2.84 M/uL (4.63-6.08); White Blood Count 13.47 K/ul (4.8-10.8)
--- NOTE | 2022-08-25 08:16 | Pulmonology Progress Note ---
Date of Service August 25, 2022 Assessment & Plan (1) Ventilator dependence: (2) ALS (amyotrophic lateral sclerosis): Plan Impression: 37-year-old male vent dependent due to ALS admitted with sepsis found to have sensitive Klebsiella and Serratia growing from tracheal aspirate as well as methicillin sensitive staph. He is completed a course of antibiotics and is being followed by the infectious disease service. His trach upsized 08/23 due to issues regarding leak and this appears to have resolved the leak. Bronchoscopy was performed at that time and washings appear to be growing a few staph species.. Recommendations: 1. Ventilator dependence due to ALS: Continue current vent settings. The patient appears to be oxygenating and ventilating well. 2. Acute purulent tracheitis: Bronchoscopy specimens growing staph. Patient's completed a course of antibiotics. He may be chronically colonized. White blood cell count today is pending and his fever curve is stable. Defer additional antibiotics to ID at this time. 3. Tracheostomy in place. Size 8 Shiley placed by ENT. Patient feels better. Will continue to follow for respiratory/ventilator issues. We will plan on seeing the patient on an every other day basis, more frequently if needed Disposition per primary service. Unclear if the patient can return home or would be best served by long-term care facility. His acute issues appear to have been resolved. Admission and Anticipated Discharge Date Admission Date: August 05, 2022 Subjective Patient without respiratory complaints currently. He feels the trach is functioning well. He is getting adequate respiratory support from his ventilator. No new respiratory issues overnight. Discussed with patient via his computer personalization specialist and with the bedside nurse. Review of Systems Review of Systems: Other No reported change in symptoms Physical Exam Physical Exam: Constitutional: No acute distress HEENT: trach site clean dry and intact. No leak Respiratory system: Decreased breath sounds bilaterally without wheezing. No crackles CVS: S1-S2 positive, no murmurs or gallops Abdomen: Soft, nontender, nondistended, positive bowel sounds x4, positive G-J tube Extremities: +2 pulses bilaterally radialis/ dorsalis pedis, no cyanosis, +1 pitting edema bilateral lower extremity Neuro: Awake, communicates via eye movements. G/U: Positive Varela Musculoskeletal: Stage I-II decubitus ulcer Results & Data Results & Data ([facility]) Vital Signs (Past 12 Hours) Vital Signs Temp Pulse Pulse Resp BP Pulse Ox O2 Del Method 08/25/22 07:12 89 15 100 08/25/22 07:10 89 15 100 Mechanical Vent 08/25/22 04:00 37.7 C H 99 H 14 99 Mechanical Vent 08/25/22 04:00 114/71 08/25/22 03:00 37.7 C H 87 14 100 08/25/22 04:00 08/25/22 03:21 83 15 100 08/24/22 23:30 87 15 100 08/25/22 02:00 37.7 C H 95 H 14 99 08/25/22 01:00 37.6 C H 89 14 99 08/25/22 00:00 37.7 C H 90 14 99 Mechanical Vent 08/25/22 00:00 110/68 08/24/22 23:00 37.7 C H 88 14 99 08/24/22 22:00 37.7 C H 96 H 18 100 08/24/22 21:00 37.7 C H 86 14 100 08/25/22 00:00 08/25/22 00:00 89 08/24/22 20:42 89 14 100 O2 Flow Rate FiO2 08/25/22 07:12 30 08/25/22 07:10 30 08/25/22 04:00 30 08/25/22 04:00 08/25/22 03:00 08/25/22 04:00 30 08/25/22 03:21 30 08/24/22 23:30 30 08/25/22 02:00 08/25/22 01:00 08/25/22 00:00 30 08/25/22 00:00 08/24/22 23:00 08/24/22 22:00 08/24/22 21:00 08/25/22 00:00 30 08/25/22 00:00 08/24/22 20:42 30 Laboratory Results 08/24/22 05:20 08/23/22 05:37 Microbiology 08/23/22 Unknown Bronch Wash,Right Lower Lobe Gram Stain - Final 08/23/22 Unknown Bronch Wash,Right Lower Lobe Bronchial Culture - Preliminary Staphylococcus species 08/13/22 12:44 Blood Aerobic Blood Culture - Final No growth in Aerobic bottle after 5 days. 08/13/22 12:44 Blood Anaerobic Blood Culture - Final No growth in Anaerobic bottle after 5 days. 08/13/22 12:48 Blood Aerobic Blood Culture - Final No growth in Aerobic bottle after 5 days. 08/13/22 12:48 Blood Anaerobic Blood Culture - Final 08/18/22 11:27 Blood Fungal Smear - Final 08/06/22 09:33 Blood Fungal Smear - Final 08/06/22 09:33 Blood Fungal Culture - Preliminary No yeast or fungus isolated - Report 2, Additional report to follow. 08/13/22 17:38 Urine,Indwelling Cath Urine Culture - Final No growth - less than 1,000 colonies/mL. 08/13/22 16:00 Sputum,Trach Gram Stain - Final 08/13/22 16:00 Sputum,Trach Sputum Culture - Final Serratia marcescens 08/05/22 17:26 Blood Aerobic Blood Culture - Final No growth in Aerobic bottle after 5 days. 08/05/22 17:26 Blood Anaerobic Blood Culture - Final 08/05/22 15:00 Blood Aerobic Blood Culture - Final No growth in Aerobic bottle after 5 days. 08/05/22 15:00 Blood Anaerobic Blood Culture - Final No growth in Anaerobic bottle after 5 days. 08/05/22 14:30 Sputum,Trach Gram Stain - Final 08/05/22 14:30 Sputum,Trach Sputum Culture - Final Staphylococcus aureus Klebsiella pneumoniae PG Care Time/CCT Total # of Minutes Spent Total Time Spent with Patient: Total time spent is greater than 50% in coordination of care (as documented) at patient's floor/unit and/or counseling patient: Coding Level of Care Code 15690 Subseq Hosp Care Lvl 2 Diagnoses Ventilator dependence Z99.11 ALS (amyotrophic lateral sclerosis) G12.21
[2022-08-25 08:48] LABS: Anion Gap 8 (3-11); Blood Urea Nitrogen 12 mg/dl (6-23); Calcium 9.1 mg/dl (8.5-10.1); Carbon Dioxide 25 mmol/L (21-32); Chloride 103 mmol/L (98-107); Creatinine Clr Calc Pharmacy 565.9 ml/min; Est GFR (African American) > 150.0 ml/min; Est GFR (Non-African American) > 150.0 ml/min; Glucose 120 mg/dl (70-99(Fasting)); Magnesium 1.8 mg/dl (1.7-2.4); Potassium 3.9 mmol/L (3.5-5.1); Sodium 136 mmol/L (136-145)
[2022-08-25] MEDS ORDERED: LACTULOSE SYRUP 20 GM/30 ML UDC PEG ONE (12:24)
[2022-08-25] MEDS: ceFAZolin 2000MG 2,000 MG/15 ML SYR IV SCH ×2 (14:39→21:57)
--- NOTE | 2022-08-25 15:21 | Hospitalist Progress Note ---
Date of Service August 25, 2022 Assessment & Plan (1) Sepsis: Plan (1) Severe sepsis: Plan: Met sepsis criteria on admission with leukocytosis 27.5, febrile, lactate 3.9 and tachycardia -likely pulm source, +sputum culture Admission CT chest with possible pneumonia noted CT abd/pelvis showed resolving acute pancreatitis with decreased size of the numerous peripancreatic fluid collections suggestive of pseudocysts. Admitting Sputum cx positive for staph aureus and klebsiella pna blood cx no growth Repeat CT abd/pelvis showedprogressively worsened acute pancreatitis with mildly increased amount of abdominal ascites. Numerous peripancreatic fluid collections appear to be generally stable from the exam obtained 6 days earlier. GI was consulted, no intervention. Repeat CT chest showed small left and trace right pleural effusions with persistent bibasilar consolidation. Initially patient was spiking fever despite Unasyn, ID was consulted and thought to be drug fevers, changed to cefepime 08/13/2022. Stool for C. difficile negative. Repeat blood culture NG5D, urine culture negative, respiratory culture with pansensitive Serratia. Status post 17 days of antibiotic, completed on 08/17. Fungal stain with no evidence of fungal infection, caspofungin is stopped per ID. 08/18 cryptococcal serum and histoplasma antigen negative. WBC for normal for few days, again started to climb up, patient mildly febrile again, 08/23 and 08/24 Pro-Cali negative. ID re-evaluated 08/23 the patient, recs noted -- monitor off Atb, Bl Cx if temp >100.5, Empiric zosyn and vanco if patient becomes unstable (fever, tachy, increased O2 req, hypotensive) s/p trach exchange 08/23, f/u RLL bronchial washings C/S --MSSA Cefazolin started 08/25. CBC in AM. Await Further ID recs in AM. F/u Fungal Cx 08/18. (2) Chronic respiratory failure: Plan: - wean to baseline vent settings per pulm - ventilator dependent. - at baseline at this time - reported air leak in trach and need for possible up-sizing, status post tracheostomy tube exchange 08/23/2022. (3) Pseudocyst of pancreas: Plan: - initial CT with resolving acute pancreatitis with decreasing size of pseudocysts. - Repeat CT abd/pelvis showedprogressively worsened acute pancreatitis with mildly increased amount of abdominal ascites. Numerous peripancreatic fluid collections appear to be generally stable from the exam obtained 6 days earlier. - radiology consulted for paracentesis diagnostic - not enough fluid for para at this time - no likely source of infection and too small to drain either way - s/p IV abx (4) Abnormal LFTs: Plan: - likely related to sepsis-improved - CT A/P noted - monitor (5) Electrolyte imbalance: Plan: - replete prn (6) ALS (amyotrophic lateral sclerosis): Plan: - bedbound with quadriplegia, has trach on vent. - continue vent support. - continue home riluzole (7) Left ventricular systolic dysfunction: Plan: - euvolemic, off IVF. - ontinues with free water flushes Plan DVT ppx- sc lovenox on hold, scds on Code Status: Full Code Dispo: Likely to go home after trach tube supplies are arranged for. Now will need further ID recs prior to DC, DC w/ ID clearance and when patient moves bowel. Text document was generated using voice recognition software. It may contain grammatical or spelling errors. Kindly contact undersigned for clarification of any documentation item in question. Admission and Anticipated Discharge Date Admission Date: August 05, 2022 Subjective Patient seen and examined at bedside as a follow-up of severe sepsis POA likely secondary to pneumonia. Patient was lying in bed, on his baseline ventilation settings via tracheostomy tube, NAD, had undergone tracheostomy tube exchange 08/23, reports feeling occasional difficulty breathing as "not having enough volume in the lungs", has not moved bowels since few days, will add lacutlose x1 and follow, c/w increased bowel regimen, patient has been borderline febrile again with continued slight bump in WBC, Pro-Cali is negative. Patient reports feeling fine and at baseline otherwise, denies chest pain or any serious issues with breathing. Patient communicates through machine. Physical Exam Physical Exam: GENERAL: Alert and alert. NAD, on mechanical ventilation via trach. HEENT: No pallor, no icterus. Pupils equal, round and reactive to light. Oral mucosa moist. NECK: No JVD, no neck masses. HEART: S1 and S2 heard. Tachycardia. No murmur, no gallop. RESPIRATORY SYSTEM: Normal AP diameter. No accessory muscle use. No wheezing, ?? b/l crackles. ABDOMEN: Soft, bowel sounds present, nontender, no distention. G-J tube in situ. CENTRAL NERVOUS SYSTEM: No facial droop. quadriparesis, +2 pulses b/l dorsalis pedis. Communicates via machine. EXTREMITIES: No edema, no erythema seen. Stage I-II decubitus ulcer. Results & Data Results & Data ([facility]) Vital Signs (Past 12 Hours) Vital Signs Temp Pulse Pulse Resp BP Pulse Ox O2 Del Method 08/25/22 14:58 87 15 100 08/25/22 12:00 37.6 C H 94 H 14 107/63 98 Mechanical Vent 08/25/22 12:00 08/25/22 11:06 91 H 15 100 08/25/22 08:00 37.7 C H 91 H 14 100/68 99 Mechanical Vent 08/25/22 08:00 Mechanical Vent 08/25/22 08:00 89 08/25/22 08:00 08/25/22 07:12 89 15 100 08/25/22 07:10 89 15 100 Mechanical Vent 08/25/22 04:00 37.7 C H 99 H 14 99 Mechanical Vent 08/25/22 04:00 114/71 08/25/22 04:00 08/25/22 03:21 83 15 100 FiO2 08/25/22 14:58 30 08/25/22 12:00 30 08/25/22 12:00 30 08/25/22 11:06 30 08/25/22 08:00 30 08/25/22 08:00 30 08/25/22 08:00 08/25/22 08:00 30 08/25/22 07:12 30 08/25/22 07:10 30 08/25/22 04:00 30 08/25/22 04:00 08/25/22 04:00 30 08/25/22 03:21 30 (1) Sepsis Sepsis type: sepsis due to unspecified organism Sepsis acute organ dysfunction status: unspecified Qualified Code(s): A41.9 - Sepsis, unspecified organism
[2022-08-25] MEDS: ACETAMINOPHEN SUSP 325 MG/10.15 ML UDC PO PRN (17:27)
--- NOTE | 2022-08-25 19:42 | XRay Report ---
KUB CLINICAL HISTORY: Constipation. Generalized abdominal pain. FINDINGS: 3 AP supine abdominal radiographs are correlated with abdominal CT dated 08/11/2022. A gastr ojejunostomy tube is in place. No bowel obstruction is seen. Moderate to severe constipation is seen throughout the colon. No evidence of intraperitoneal free air is seen on these supine images. Emboliz ation coils project over the upper abdomen. A bladder catheter and rectal temperature probe project o jose the pelvis. Phleboliths are noted in the pelvis. The bony structures appear intact. IMPRESSION: Moderate to severe constipation. Electronically signed by: Darvin Rodriguez M.D. 08/25/2022 7:41 PM
[2022-08-25] MEDS: ARTIFICIAL TEARS OP OINT 3.5 GM TUBE OP SCH (20:33)
[2022-08-26] MEDS: TUBE FEEDING WATER FLUSH JT SCH ×3 (01:35→17:16)
[2022-08-26] MEDS: HYDROmorphone INJ 0.5 MG/0.5 ML SYR IV PRN ×3 (04:01→21:05)
[2022-08-26 05:59] LABS: Hematocrit (blood only) 26.6 % (40.1-51.0); Hemoglobin 8.4 g/dl (14.0-18.0); Mean Corpuscular Hemoglobin 29.4 pg (25.0-34.0); Mean Corpuscular Hgb Conc 31.6 g/dL (32.0-36.0); Mean Platelet Volume 8.6 fL (9.4-12.4); Platelet Count 549 K/uL (130-400); RDW Coefficient of Variation 16.5 % (11.5-14.5); RDW Standard Deviation 55.3 fL (36.4-46.3); Red Blood Count 2.86 M/uL (4.63-6.08); White Blood Count 12.86 K/ul (4.8-10.8)
[2022-08-26] MEDS: ceFAZolin 2000MG 2,000 MG/15 ML SYR IV SCH ×3 (06:37→22:28)
[2022-08-26 06:41] LABS: Anion Gap 9 (3-11); Blood Urea Nitrogen 12 mg/dl (6-23); Carbon Dioxide 23 mmol/L (21-32); Chloride 105 mmol/L (98-107); Creatinine Clr Calc Pharmacy 565.9 ml/min; Est GFR (African American) > 150.0 ml/min; Est GFR (Non-African American) > 150.0 ml/min; Glucose 140 mg/dl (70-99(Fasting)); Sodium 137 mmol/L (136-145)
[2022-08-26] MEDS: SODIUM CHLOR 7% 4 ML NEB NEB SCH ×2 (07:31→19:53)
--- NOTE | 2022-08-26 08:37 | Pulmonology Progress Note ---
Date of Service August 26, 2022 Assessment & Plan (1) Ventilator dependence: (2) ALS (amyotrophic lateral sclerosis): Plan Impression: 37-year-old male vent dependent due to ALS admitted with sepsis found to have sensitive Klebsiella and Serratia growing from tracheal aspirate as well as methicillin sensitive staph. He is completed a course of antibiotics and is being followed by the infectious disease service. His trach upsized 08/23 due to issues regarding leak and this appears to have resolved the leak. Bronchoscopy was performed at that time and washings appear to be growing a few staph species. -- Vent dependent respiratory failure Secondary to underlying diagnosis of ALS Continue with vent support Patient does not have any significant change from his baseline vent settings -- Tracheitis Tracheal aspirate growing Klebsiella, s/p antibiotic -- Bronc culture is also growing MSSA Patient is already completed a course of antibiotic Will defer further antibiotic regimen to ID -- Tracheostomy in place Size 8 placed by ENT Case discussed with Dr. Diego Please note the above document was generated using voice recognition software. It may contain grammatical, syntax or spelling errors.Any formal questions or concerns about the content, text or information contained within the body of this dictation should be directly addressed to the provider for clarification. Admission and Anticipated Discharge Date Admission Date: August 05, 2022 Subjective Patient seen and examined at bedside. No acute distress, no adverse events over night Patient is still spiking low-grade fever Saturating well on minimal settings on the vent Review of Systems Review of Systems: All systems reviewed & are unremarkable except as noted in Subjective Physical Exam Physical Exam: Constitutional: No acute distress HEENT: PERRLA, positive trach Respiratory system: Decreased air entry bilaterally, no wheeze, positive rhonchi bilaterally, mild crackles bilateral lower lobes CVS: S1-S2 positive, no murmurs or gallops Abdomen: Soft, nontender, nondistended, positive bowel sounds x4, positive G-J tube Extremities: +2 pulses bilaterally radialis/ dorsalis pedis, no cyanosis, +1 pitting edema bilateral lower extremity Neuro: Awake alert oriented to self and place Psych: Normal mood and affect G/U: Positive Varela Musculoskeletal: Stage I-II decubitus ulcer Skin: no rashes, warm and dry Lymphatic: no cervical or axillary lymphadenopathy Results & Data Results & Data ([facility]) Vital Signs (Past 12 Hours) Vital Signs Temp Pulse Resp BP Pulse Ox O2 Del Method FiO2 08/26/22 08:00 Mechanical Vent 08/26/22 08:00 30 08/26/22 07:35 95 H 15 98 30 08/26/22 05:00 37.8 C H 103 H 14 97 Oxymask 30 08/26/22 04:00 37.8 C H 101 H 14 97 08/26/22 04:00 132/74 08/26/22 03:00 37.7 C H 89 14 99 08/26/22 02:01 37.7 C H 82 14 98 08/26/22 04:00 30 08/26/22 03:31 85 14 99 30 08/26/22 01:00 37.6 C H 79 14 98 Mechanical Vent 30 08/26/22 00:00 37.5 C 89 12 99 08/26/22 00:00 134/81 08/25/22 23:00 37.4 C 83 12 99 08/25/22 22:00 37.5 C 85 14 100 08/26/22 00:39 85 15 100 30 08/26/22 00:00 85 08/26/22 00:00 30 08/25/22 22:43 Mechanical Vent 08/25/22 21:00 37.6 C H 85 14 99 Mechanical Vent 30 Laboratory Results 08/26/22 05:28 08/26/22 05:28 PG Care Time/CCT Total # of Minutes Spent Total Time Spent with Patient: Total time spent is greater than 50% in coordination of care (as documented) at patient's floor/unit and/or counseling patient: Coding Level of Care Code 50270 Subseq Hosp Care Lvl 2 Diagnoses Ventilator dependence Z99.11 ALS (amyotrophic lateral sclerosis) G12.21
[2022-08-26] MEDS: POLYETHYLENE (MIRALAX) 17 GM PACK PEG SCH (09:00)
[2022-08-26] MEDS: DOCUSATE SODIUM/SENNA 50/8.6MG TAB PO SCH (09:00)
[2022-08-26] MEDS: ARTIFICIAL TEARS OP SCH ×4 (09:00→22:24)
[2022-08-26] MEDS: MIDODRINE HCL 2.5 MG TAB PO SCH ×3 (09:00→17:16)
[2022-08-26] MEDS: CHOLECALCIFEROL 1,000 UNITS 25 MCG TAB JT SCH (09:00)
[2022-08-26] MEDS: LANSOPRAZOLE 15 MG SOLTAB PO SCH (09:00)
--- NOTE | 2022-08-26 09:43 | Critical Care Progress Note ---
Date of Service August 26, 2022 Assessment & Plan (1) Ventilator dependence: Plan: Reason Critically Ill: 37-year-old male here with a PMHx significant for ALS, chronic pancreatitis, PEG tube, who presented with lethargy and who was admitted for sepsis, ventilator dependence. Neuro - [facility] ICU: NEGATIVE Sedation: Melatonin Analgesia: Tylenol, hydromorphone, tramadol as needed Cardiac - * Hypotension: Continue home midodrine Respiratory - * Ventilator dependence: Patient appears to be saturating well. Continue ventilator settings. GI - * [] diet RENAL/LYTES - * [] [No significant electrolyte derangement.] * Replace lytes as needed. - * [] [No concerns at this time.] ENDO - * [] HEME - * [] [Stable H&H.] * [Will monitor for any drops in the setting of Heparin gtt] ID - * [] [No concerns for infection at this point.] * [Monitor fever curve.] INTEGUMENTARY - * [] LINES/IV ACCESS - PIVs intact. DVT PROPHYLAXIS - * [] [Heparin gtt.] Thank you for allowing us to be part of this patient's care. Please refer to []'s documentation for any further recommendations. (2) Chronic respiratory failure: (3) ALS (amyotrophic lateral sclerosis): (4) Sepsis: (5) Fever: (6) Electrolyte imbalance: Admission and Anticipated Discharge Date Admission Date: August 05, 2022 Review of Systems Review of Systems: All systems reviewed & are unremarkable except as noted in HPI & below Results & Data Results & Data ([facility]) Vital Signs (Past 12 Hours) Vital Signs Temp Pulse Resp BP Pulse Ox O2 Del Method FiO2 08/26/22 08:00 86 08/26/22 08:00 37.5 C 96 H 14 97 08/26/22 08:00 121/71 08/26/22 07:00 37.6 C H 86 14 99 08/26/22 06:00 37.8 C H 104 H 14 99 08/26/22 08:00 Mechanical Vent 08/26/22 08:00 30 08/26/22 07:35 95 H 15 98 30 08/26/22 05:00 37.8 C H 103 H 14 97 Oxymask 30 08/26/22 04:00 37.8 C H 101 H 14 97 08/26/22 04:00 132/74 08/26/22 03:00 37.7 C H 89 14 99 08/26/22 02:01 37.7 C H 82 14 98 08/26/22 04:00 30 08/26/22 03:31 85 14 99 30 08/26/22 01:00 37.6 C H 79 14 98 Mechanical Vent 30 08/26/22 00:00 37.5 C 89 12 99 08/26/22 00:00 134/81 08/25/22 23:00 37.4 C 83 12 99 08/25/22 22:00 37.5 C 85 14 100 08/26/22 00:39 85 15 100 30 08/26/22 00:00 85 08/26/22 00:00 30 08/25/22 22:43 Mechanical Vent (1) Sepsis Sepsis type: sepsis due to unspecified organism Sepsis acute organ dysfunction status: unspecified Qualified Code(s): A41.9 - Sepsis, unspecified organism
[2022-08-26] MEDS: ENOXAPARIN INJ 40 MG/0.4 ML SYR SQ SCH (09:57)
[2022-08-26] MEDS ORDERED: METHYLNALTREXONE BROMIDE 12 MG/0.6 ML VIAL SQ SCH (11:00)
--- NOTE | 2022-08-26 14:23 | Infectious Disease Progress Nt ---
Date of Service August 26, 2022 Assessment & Plan (1) Fever: (2) Pancreatitis: (3) Pseudocyst of pancreas: (4) Chronic respiratory failure: (5) Ascites: Plan 37-year-old male, past medical history of left ventricular systolic dysfunction, chronic pancreatitis with pancreatic pseudocyst, ALS, bedbound with quadriplegia, status post trach and feeding tube, who presented to the ED on 08/05/2022 for lethargy. ID initially consulted for fevers. He was admitted with concern for infection per pt's due to lethargy, increased trach site drainage and increased SOB although no noted change in vent settings- noted to have leukocytosis, elevated lactate, relative HENRI on admissio n. CT scan chest with b/l consolidation and opacities suggestive of PNA vs. aspiration. 08/05 Sputum cx with MSSA and Klebsiella R only to cefazolin. 08/05 Bcxs NGTD 08/06 Fungal Bcx pending. 08/06 MRSA screen negative, pt had been on zosyn. empiric vanco stopped due to negative MRSA screen. Caspofungin added empirically 08/06 given risk for candidemia. diarrhea noted 08/08, but appeared c/w TF and no BMs 08/09 to date, R eye blepharitis noted.WBC improved, Fevers continued until 08/13. Repeat CT C/A/P 08/11: noted persistent bibasilar consolidation. progressively worsened acute pancreatitis with mildly increased amount of abdominal ascites. Numerous peripancreatic fluid collections appear to be generally stable from the exam obtained 6 days earlier. Discussion: Patient initially found to have a pneumonia growing sensitive species MSSA, Klebsiella. He was narrowed to Unasyn. Clinically, his respiratory status has improved. His fever curve had worsened despite improved leukocytosis. Unclear Etiology- included drug fever to Unasyn, so was discontinued and Cefepime started. GI was onsulted regarding his pancreatitis and fluid collections. No intervention On 08/14, his abdominal CT imaging was reviewwe with Radiologist, Dr. Brody. His overall pancreatitis and pancreatic fluid collections have improved. There was a slight worsening of pancreatitis from 08/05 to 08/11 but sig improved from 06/2022. In addition fluid collections are very small and do not appear drainable. He then grew Serratia (no resistance) in sputum which can be a colonizer.In light of his fever and new Serratia growth, a 5 day course of therapy from 08/13-08/17 was added. He was narrowed to Ceftriaxone which he completed on 08/17. Caspufungin was added by primary team empirically but was discontinued as there was no convincing evidence of fungal pneumonia. He eventually became afebrile with normalization of wbc 1. Tracheostomy dependent, Pneumonia ( MSSA, Klebsiella, Serratia) 2. Chronic Pancreatitis with pseudocyst, fluid collections, ascites 3. Fevers- resolved 4. ALS, quadraplegia 5. R eye blepharitis- resolved 6 Left eye comjuctivitis Discussion Completed Ceftriaxone on 08/17-completed 17 days of antibiotic therapy ( including additional serratia coverage for 5 days ) on 08/17.His WBC normalized but has increased . Plts remains elevated but stable. He has been afebrile He underwent trach exchange and bronchoscopy 08/23 . BAL culture obtained 08/23 . Cx + for few MSSA . G/s with no organisms but many Wbc. Started on Ancef. continue ancef for at least 7-10 days, May need to be extended based on clinial response since MSSA recurred ( colonization vs infection) Givne virulence potention of staph in lung, inc WBc , elev plts, would debra Obtain optho eval - left eye redness recurred with nose drainage and eye "stinging" . Sharif De Leon MD MPH ID [facility] Admission and Anticipated Discharge Date Admission Date: August 05, 2022 Subjective Subsequent visit was provided via telemedicine using two-way real-time interactive telecommunication between the patient and the telemedicine provider. For the duration of the visit, the provider was performing the assessment from a different facility than the patient. This includesuse of bluetooth stethoscope forauscultationperformed by the telepresenter that the telemedicine provider can hear if described in the physical exam. Multiple Tube Winding Machine Operator contact information: Please call [facility] Center [phone]. (Phone Number For Physician Use Only) After establishing a telemedicine visit, patient was: Patient was verified with two unique identifiers Patient seen and examine. WBc elevated 12.86. plt trending down to 502. He complains of left nasal clear yellow drainage and some " stinging" of left eye. He denies headache , ear pain, sinus pressure/pain. He denies increase sob or cough. he reports inc trach secretion but RN denies this. Broch Cx frrm 08/23 + mssa. He was started on Ancef yesterday. Review of System As per subjective Physical Exam Physical Exam: , Constitutional: NAD, lying in bed, using laptap to type and communicate, pleasant , comfortable appearing. + trach Eyes: PERRLA left eye conjunctival erythema, mild left blepharitis ENMT: trach in place, mech vent. NO increased secretions . Nasal tissue in left nostril. Removed and noted for sm amount of clear yellow drainage Respiratory: clear anteriorly Cardiovascular: RRR Gastrointestinal (Abdomen): soft, NT, ND Skin: No rash Results & Data ([facility]) Vital Signs (Past 12 Hours) Vital Signs Temp Pulse Resp BP Pulse Ox O2 Del Method FiO2 08/26/22 12:00 37.5 C 85 14 99 08/26/22 12:00 109/68 08/26/22 11:00 37.5 C 81 14 100 08/26/22 12:00 30 08/26/22 11:20 82 14 100 30 08/26/22 10:00 37.6 C H 84 14 100 08/26/22 09:00 37.5 C 86 14 100 08/26/22 08:00 86 08/26/22 08:00 37.5 C 96 H 14 97 08/26/22 08:00 121/71 08/26/22 07:00 37.6 C H 86 14 99 08/26/22 06:00 37.8 C H 104 H 14 99 08/26/22 08:00 Mechanical Vent 08/26/22 08:00 30 08/26/22 07:35 95 H 15 98 30 08/26/22 05:00 37.8 C H 103 H 14 97 Oxymask 30 08/26/22 04:00 37.8 C H 101 H 14 97 08/26/22 04:00 132/74 08/26/22 03:00 37.7 C H 89 14 99 08/26/22 04:00 30 08/26/22 03:31 85 14 99 30 Laboratory Results Microbiology 08/23/22 Unknown Bronch Wash,Right Lower Lobe Gram Stain - Final 08/23/22 Unknown Bronch Wash,Right Lower Lobe Bronchial Culture - Final Staphylococcus aureus 08/18/22 11:27 Blood Fungal Smear - Final 08/18/22 11:27 Blood Fungal Culture - Preliminary No yeast or fungus isolated - Report 1, Additional Report to Follow. 08/06/22 09:33 Blood Fungal Smear - Final 08/06/22 09:33 Blood Fungal Culture - Preliminary No yeast or fungus isolated - Report 3, Additional report to follow. 08/13/22 12:44 Blood Aerobic Blood Culture - Final No growth in Aerobic bottle after 5 days. 08/13/22 12:44 Blood Anaerobic Blood Culture - Final No growth in Anaerobic bottle after 5 days. 08/13/22 12:48 Blood Aerobic Blood Culture - Final No growth in Aerobic bottle after 5 days. 08/13/22 12:48 Blood Anaerobic Blood Culture - Final 08/13/22 17:38 Urine,Indwelling Cath Urine Culture - Final No growth - less than 1,000 colonies/mL. 08/13/22 16:00 Sputum,Trach Gram Stain - Final 08/13/22 16:00 Sputum,Trach Sputum Culture - Final Serratia marcescens 08/05/22 17:26 Blood Aerobic Blood Culture - Final No growth in Aerobic bottle after 5 days. 08/05/22 17:26 Blood Anaerobic Blood Culture - Final 08/05/22 15:00 Blood Aerobic Blood Culture - Final No growth in Aerobic bottle after 5 days. 08/05/22 15:00 Blood Anaerobic Blood Culture - Final No growth in Anaerobic bottle after 5 days. 08/05/22 14:30 Sputum,Trach Gram Stain - Final 08/05/22 14:30 Sputum,Trach Sputum Culture - Final Staphylococcus aureus Klebsiella pneumoniae
[2022-08-26] MEDS ORDERED: SOD PHOSPHATE/SOD BIPHOSPHATE ENEMA 132 ML BTL PR STA (14:57)
--- NOTE | 2022-08-26 14:57 | Hospitalist Progress Note ---
Date of Service August 26, 2022 Assessment & Plan (1) Sepsis: Plan (1) Severe sepsis: Plan: Met sepsis criteria on admission with leukocytosis 27.5, febrile, lactate 3.9 and tachycardia -likely pulm source, +sputum culture Admission CT chest with possible pneumonia noted CT abd/pelvis showed resolving acute pancreatitis with decreased size of the numerous peripancreatic fluid collections suggestive of pseudocysts. Admitting Sputum cx positive for staph aureus and klebsiella pna blood cx no growth Repeat CT abd/pelvis showedprogressively worsened acute pancreatitis with mildly increased amount of abdominal ascites. Numerous peripancreatic fluid collections appear to be generally stable from the exam obtained 6 days earlier. GI was consulted, no intervention. Repeat CT chest showed small left and trace right pleural effusions with persistent bibasilar consolidation. Initially patient was spiking fever despite Unasyn, ID was consulted and thought to be drug fevers, changed to cefepime 08/13/2022. Stool for C. difficile negative. Repeat blood culture NG5D, urine culture negative, respiratory culture with pansensitive Serratia. Status post 17 days of antibiotic, completed on 08/17. Fungal stain with no evidence of fungal infection, caspofungin is stopped per ID. 08/18 cryptococcal serum and histoplasma antigen negative. WBC and temp have been fluctuating., 08/23 and 08/24 Pro-Cali negative. ID re-evaluated 08/23 the patient, recs noted -- monitor off Atb, Bl Cx if temp >100.5, Empiric zosyn and vanco if patient becomes unstable (fever, tachy, increased O2 req, hypotensive) s/p trach exchange 08/23, f/u RLL bronchial washings C/S --MSSA Cefazolin started 08/25. CBC in AM. Called ID connect to see if ID is seeing the patient. Will see. Await Further ID recs and then possibly dc. F/u Fungal Cx 08/18. (2) Chronic respiratory failure: Plan: - wean to baseline vent settings per pulm - ventilator dependent. - at baseline at this time - reported air leak in trach and need for possible up-sizing, status post tracheostomy tube exchange 08/23/2022. (3) Pseudocyst of pancreas: Plan: - initial CT with resolving acute pancreatitis with decreasing size of pseudocysts. - Repeat CT abd/pelvis showedprogressively worsened acute pancreatitis with mildly increased amount of abdominal ascites. Numerous peripancreatic fluid collections appear to be generally stable from the exam obtained 6 days earlier. - radiology consulted for paracentesis diagnostic - not enough fluid for para at this time - no likely source of infection and too small to drain either way - s/p IV abx (4) Abnormal LFTs: Plan: - likely related to sepsis-improved - CT A/P noted - monitor (5) Electrolyte imbalance: Plan: - replete prn (6) ALS (amyotrophic lateral sclerosis): Plan: - bedbound with quadriplegia, has trach on vent. - continue vent support. - continue home riluzole (7) Left ventricular systolic dysfunction: Plan: - euvolemic, off IVF. - ontinues with free water flushes Plan DVT ppx- sc lovenox Code Status: Full Code Dispo: Likely to go home after trach tube supplies are arranged for. Now will need further ID recs prior to DC, DC w/ ID clearance and when patient moves bowel. Text document was generated using voice recognition software. It may contain grammatical or spelling errors. Kindly contact undersigned for clarification of any documentation item in question. Admission and Anticipated Discharge Date Admission Date: August 05, 2022 Subjective Patient seen and examined at bedside as a follow-up of severe sepsis POA likely secondary to pneumonia. Patient was lying in bed, on his baseline ventilation settings via tracheostomy tube, NAD, had undergone tracheostomy tube exchange 08/23, reports feeling better w/ breathing today, has not moved bowels since few days, got lactulose yesterday, getting relistor today, will use enema if w/ no BM, WBC and temp getting better. Patient reports feeling fine and at baseline otherwise, denies chest pain or any serious issues with breathing. Patient communicates through machine. Physical Exam Physical Exam: GENERAL: Alert and alert. NAD, on mechanical ventilation via trach. HEENT: No pallor, no icterus. Pupils equal, round and reactive to light. Oral mucosa moist. NECK: No JVD, no neck masses. HEART: S1 and S2 heard. Tachycardia. No murmur, no gallop. RESPIRATORY SYSTEM: Normal AP diameter. No accessory muscle use. No wheezing, ?? b/l crackles --improved ABDOMEN: Soft, bowel sounds present, nontender, no distention. G-J tube in situ. CENTRAL NERVOUS SYSTEM: No facial droop. quadriparesis, +2 pulses b/l dorsalis pedis. Communicates via machine. EXTREMITIES: No edema, no erythema seen. Stage I-II decubitus ulcer. Results & Data Results & Data ([facility]) Vital Signs (Past 12 Hours) Vital Signs Temp Pulse Resp BP Pulse Ox O2 Del Method FiO2 08/26/22 12:00 37.5 C 85 14 99 08/26/22 12:00 109/68 08/26/22 11:00 37.5 C 81 14 100 08/26/22 12:00 30 08/26/22 11:20 82 14 100 30 08/26/22 10:00 37.6 C H 84 14 100 08/26/22 09:00 37.5 C 86 14 100 08/26/22 08:00 86 08/26/22 08:00 37.5 C 96 H 14 97 08/26/22 08:00 121/71 08/26/22 07:00 37.6 C H 86 14 99 08/26/22 06:00 37.8 C H 104 H 14 99 08/26/22 08:00 Mechanical Vent 08/26/22 08:00 30 08/26/22 07:35 95 H 15 98 30 08/26/22 05:00 37.8 C H 103 H 14 97 Oxymask 30 08/26/22 04:00 37.8 C H 101 H 14 97 08/26/22 04:00 132/74 08/26/22 03:00 37.7 C H 89 14 99 08/26/22 04:00 30 08/26/22 03:31 85 14 99 30 (1) Sepsis Sepsis type: sepsis due to unspecified organism Sepsis acute organ dysfunction status: unspecified Qualified Code(s): A41.9 - Sepsis, unspecified organism
[2022-08-26] MEDS: ALBUTEROL 0.083% NEBU SOLN 3 ML VIAL NEB PRN (15:47)
[2022-08-26] MEDS ORDERED: bisacodyL 10 MG SUPP PR STA (17:08)
[2022-08-26] MEDS: PEPTAMEN 1.5 CAL 1,000 ML BAG JT SCH (17:31)
[2022-08-26] MEDS: ARTIFICIAL TEARS OP OINT 3.5 GM TUBE OP SCH (22:25)
[2022-08-27] MEDS: HYDROmorphone HCL 2 MG TAB PO PRN ×2 (00:28→22:33)
[2022-08-27] MEDS: TUBE FEEDING WATER FLUSH JT SCH ×3 (03:27→18:00)
[2022-08-27] MEDS: HYDROmorphone INJ 0.5 MG/0.5 ML SYR IV PRN ×3 (04:21→16:46)
[2022-08-27] MEDS: ceFAZolin 2000MG 2,000 MG/15 ML SYR IV SCH ×3 (05:47→22:32)
[2022-08-27 06:16] LABS: Hematocrit (blood only) 26.4 % (40.1-51.0); Hemoglobin 8.2 g/dl (14.0-18.0); Mean Corpuscular Hemoglobin 28.9 pg (25.0-34.0); Mean Corpuscular Hgb Conc 31.1 g/dL (32.0-36.0); Mean Platelet Volume 8.5 fL (9.4-12.4); Platelet Count 502 K/uL (130-400); RDW Coefficient of Variation 16.4 % (11.5-14.5); RDW Standard Deviation 55.5 fL (36.4-46.3); Red Blood Count 2.84 M/uL (4.63-6.08); White Blood Count 15.69 K/ul (4.8-10.8)
[2022-08-27 06:48] LABS: Anion Gap 9 (3-11); Blood Urea Nitrogen 13 mg/dl (6-23); Calcium 8.8 mg/dl (8.5-10.1); Carbon Dioxide 24 mmol/L (21-32); Chloride 103 mmol/L (98-107); Creatinine Clr Calc Pharmacy 565.9 ml/min; Est GFR (African American) > 150.0 ml/min; Est GFR (Non-African American) > 150.0 ml/min; Glucose 129 mg/dl (70-99(Fasting)); Potassium 3.7 mmol/L (3.5-5.1); Sodium 136 mmol/L (136-145)
[2022-08-27] MEDS: SODIUM CHLOR 7% 4 ML NEB NEB SCH ×2 (08:04→19:40)
[2022-08-27] MEDS: MIDODRINE HCL 2.5 MG TAB PO SCH ×3 (08:16→18:00)
[2022-08-27] MEDS: CHOLECALCIFEROL 1,000 UNITS 25 MCG TAB JT SCH (08:17)
[2022-08-27] MEDS: DOCUSATE SODIUM/SENNA 50/8.6MG TAB PO SCH (08:17)
[2022-08-27] MEDS: POLYETHYLENE (MIRALAX) 17 GM PACK PEG SCH (08:18)
[2022-08-27] MEDS: ENOXAPARIN INJ 40 MG/0.4 ML SYR SQ SCH (08:18)
[2022-08-27] MEDS: LANSOPRAZOLE 15 MG SOLTAB PO SCH (08:18)
[2022-08-27] MEDS: ARTIFICIAL TEARS OP SCH ×4 (08:42→21:15)
--- NOTE | 2022-08-27 12:14 | Pulmonology Progress Note ---
Date of Service August 27, 2022 Assessment & Plan (1) Ventilator dependence: (2) ALS (amyotrophic lateral sclerosis): Plan Impression: 37-year-old male vent dependent due to ALS admitted with sepsis found to have sensitive Klebsiella and Serratia growing from tracheal aspirate as well as methicillin sensitive staph. He is completed a course of antibiotics and is being followed by the infectious disease service. His trach upsized 08/23 due to issues regarding leak and this appears to have resolved the leak. Bronchoscopy was performed at that time and washings appear to be growing a few staph species. -- Vent dependent respiratory failure Secondary to underlying diagnosis of ALS Continue with vent support Patient does not have any significant change from his baseline vent settings -- Tracheitis Tracheal aspirate growing Klebsiella, s/p antibiotic -- Bronc hculture is also growing MSSA Patient is already completed a course of antibiotic Will defer further antibiotic regimen to ID -- Tracheostomy in place Size 8 placed by ENT Plan: Vent settings for discharge TV 560, Respiratory rate 14, PEEP 6, FiO2 30% on discharge ID note reviewed. C/w ancef for total of 10 days for MSSA growing in bronch culture Please note the above document was generated using voice recognition software. It may contain grammatical, syntax or spelling errors.Any formal questions or concerns about the content, text or information contained within the body of this dictation should be directly addressed to the provider for clarification. Admission and Anticipated Discharge Date Admission Date: August 05, 2022 Subjective Patient seen and examined bedside. No acute distress, no adverse events overnight. Was asking when he can go home Denies any headache, no chest pain, shortness of breath. Review of Systems Review of Systems: All systems reviewed & are unremarkable except as noted in Subjective Physical Exam Physical Exam: Constitutional: No acute distress HEENT: PERRLA, positive trach Respiratory system: Decreased air entry bilaterally, no wheeze, positive rhonchi bilaterally, mild crackles bilateral lower lobes CVS: S1-S2 positive, no murmurs or gallops Abdomen: Soft, nontender, nondistended, positive bowel sounds x4, positive G-J tube Extremities: +2 pulses bilaterally radialis/ dorsalis pedis, no cyanosis, +1 pitting edema bilateral lower extremity Neuro: Awake alert oriented to self and place Psych: Normal mood and affect G/U: Positive Varela Musculoskeletal: Stage I-II decubitus ulcer Skin: no rashes, warm and dry Lymphatic: no cervical or axillary lymphadenopathy Results & Data Results & Data ([facility]) Vital Signs (Past 12 Hours) Vital Signs Temp Pulse Resp BP Pulse Ox O2 Del Method FiO2 08/27/22 11:57 83 14 100 30 08/27/22 08:00 37.6 C H 100 H 14 119/61 99 Mechanical Vent 30 08/27/22 08:00 102 H 08/27/22 08:00 30 08/27/22 07:58 104 H 14 97 30 08/27/22 04:00 30 08/27/22 03:30 101 H 14 99 30 Laboratory Results 08/27/22 05:46 08/27/22 05:46 PG Care Time/CCT Total # of Minutes Spent Total Time Spent with Patient: Total time spent is greater than 50% in coordination of care (as documented) at patient's floor/unit and/or counseling patient: Coding Level of Care Code 25046 Subseq Hosp Care Lvl 2 Diagnoses Ventilator dependence Z99.11 ALS (amyotrophic lateral sclerosis) G12.21
--- NOTE | 2022-08-27 16:51 | Hospitalist Progress Note ---
Date of Service August 27, 2022 Assessment & Plan (1) Sepsis: Plan (1) Severe sepsis: Plan: Met sepsis criteria on admission with leukocytosis 27.5, febrile, lactate 3.9 and tachycardia -likely pulm source, +sputum culture Admission CT chest with possible pneumonia noted CT abd/pelvis showed resolving acute pancreatitis with decreased size of the numerous peripancreatic fluid collections suggestive of pseudocysts. Admitting Sputum cx positive for staph aureus and klebsiella pna blood cx no growth Repeat CT abd/pelvis showedprogressively worsened acute pancreatitis with mildly increased amount of abdominal ascites. Numerous peripancreatic fluid collections appear to be generally stable from the exam obtained 6 days earlier. GI was consulted, no intervention. Repeat CT chest showed small left and trace right pleural effusions with persistent bibasilar consolidation. Initially patient was spiking fever despite Unasyn, ID was consulted and thought to be drug fevers, changed to cefepime 08/13/2022. Stool for C. difficile negative. Repeat blood culture NG5D, urine culture negative, respiratory culture with pansensitive Serratia. Status post 17 days of antibiotic, completed on 08/17. Fungal stain with no evidence of fungal infection, caspofungin is stopped per ID. 08/18 cryptococcal serum and histoplasma antigen negative. WBC and temp have been fluctuating., 08/23 and 08/24 and 08/27 Pro-Cali nega tive. ID re-evaluated 08/26 the patient, recs noted --cefazolin for 7 to 10 days, may need to extend based on clinical response. Recommends ophthalmology evaluation for left eye redness. s/p trach exchange 08/23, f/u RLL bronchial washings C/S --MSSA Cefazolin started 08/25. CBC in AM. Patient would likely benefit with outpatient ID follow-up. F/u Fungal Cx 08/18. Prescription provided to CM for his tube feed and IV antibiotic. (2) Chronic respiratory failure: Plan: - wean to baseline vent settings per pulm - ventilator dependent. - at baseline at this time - reported air leak in trach and need for possible up-sizing, status post tracheostomy tube exchange 08/23/2022. (3) Pseudocyst of pancreas: Plan: - initial CT with resolving acute pancreatitis with decreasing size of pseudocysts. - Repeat CT abd/pelvis showedprogressively worsened acute pancreatitis with mildly increased amount of abdominal ascites. Numerous peripancreatic fluid collections appear to be generally stable from the exam obtained 6 days earlier. - radiology consulted for paracentesis diagnostic - not enough fluid for para at this time - no likely source of infection and too small to drain either way - s/p IV abx (4) Abnormal LFTs: Plan: - likely related to sepsis-improved - CT A/P noted - monitor (5) Electrolyte imbalance: Plan: - replete prn (6) ALS (amyotrophic lateral sclerosis): Plan: - bedbound with quadriplegia, has trach on vent. - continue vent support. - continue home riluzole (7) Left ventricular systolic dysfunction: Plan: - euvolemic, off IVF. - ontinues with free water flushes Plan DVT ppx- sc lovenox Code Status: Full Code Dispo: Likely to go home, CM arranging tube supplies/IV antibiotics/tube feeding for home. Pending ophthalmology eval. Now that we have final recommendation from ID and patient had finally moved bowel. Prescription for IV antibiotic and PEG tube feeding provided to CM. Text document was generated using voice recognition software. It may contain grammatical or spelling errors. Kindly contact undersigned for clarification of any documentation item in question. Admission and Anticipated Discharge Date Admission Date: August 05, 2022 Subjective Patient seen and examined at bedside as a follow-up of severe sepsis POA likely secondary to pneumonia. Patient was lying in bed, on his baseline ventilation settings via tracheostomy tube, NAD, had undergone tracheostomy tube exchange 08/23, reports feeling better w/ breathing today, has finally moved bowels twice last night, continue with bowel regimen. Patient reports some eye pain when eyes open, on left eye. Some mild erythema of eyelids noted. Ophthalmology consulted, awaiting recommendation. Patient reports feeling fine and at baseline otherwise, denies chest pain or any serious issues with breathing. Patient communicates through machine. Physical Exam Physical Exam: GENERAL: Alert and alert. NAD, on mechanical ventilation via trach. HEENT: No pallor, no icterus. Pupils equal, round and reactive to light. Oral mucosa moist. NECK: No JVD, no neck masses. HEART: S1 and S2 heard. Tachycardia. No murmur, no gallop. RESPIRATORY SYSTEM: Normal AP diameter. No accessory muscle use. No wheezing, ?? b/l crackles --improving ABDOMEN: Soft, bowel sounds present, nontender, no distention. G-J tube in situ. CENTRAL NERVOUS SYSTEM: No facial droop. quadriparesis, +2 pulses b/l dorsalis pedis. Communicates via machine. EXTREMITIES: No edema, no erythema seen. Stage I-II decubitus ulcer. Results & Data Results & Data ([facility]) Vital Signs (Past 12 Hours) Vital Signs Temp Pulse Resp BP Pulse Ox O2 Del Method FiO2 08/27/22 15:38 81 14 100 30 08/27/22 12:00 37.6 C H 88 14 102/67 99 Mechanical Vent 30 08/27/22 11:57 83 14 100 30 08/27/22 12:00 30 08/27/22 08:00 37.6 C H 100 H 14 119/61 99 Mechanical Vent 30 08/27/22 08:00 102 H 08/27/22 08:00 30 08/27/22 07:58 104 H 14 97 30 (1) Sepsis Sepsis type: sepsis due to unspecified organism Sepsis acute organ dysfunction status: unspecified Qualified Code(s): A41.9 - Sepsis, unspecified organism
[2022-08-27] MEDS: ALBUTEROL 0.083% NEBU SOLN 3 ML VIAL NEB PRN (19:40)
[2022-08-27] MEDS: ARTIFICIAL TEARS OP OINT 3.5 GM TUBE OP SCH (21:16)
[2022-08-28] MEDS: HYDROmorphone INJ 0.5 MG/0.5 ML SYR IV PRN ×4 (00:35→20:19)
[2022-08-28] MEDS: TUBE FEEDING WATER FLUSH JT SCH ×3 (02:55→18:08)
--- NOTE | 2022-08-28 04:09 | Consultation Report ---
OPHTHALMOLOGY CONSULTATION NOTE DATE OF SERVICE: 08/27/2022. CHIEF COMPLAINT AND HISTORY OF PRESENT ILLNESS: This is a 37-year-old male with ALS, who is a jenna plegic and ventilator dependent. I have been consulted to evaluate his left eye redness and discharg e that has been intermittent dating back to his time of admission according to the patient's . O n reviewing his Emergency Department note from 08/05/2022, there is no mention of left eye redness an d I do not see any mention of left eye redness until the hospitalist note of 08/27/2022. It seems th at the patient had a tele-consult with an infectious disease specialist and it was mentioned about re dness in the left eye and he recommended an ophthalmology consultation. According to the patient and his , he does use artificial tears 4 times daily, and he was doing this at baseline even prior t o his admission to the hospital. He has not had any recent eye exams. He states that his left eye d oes have some discharge and irritation as well as some mild redness. He is currently being treated f or sepsis and sepsis-related liver issues and electrolyte imbalances. PAST MEDICAL HISTORY: Remarkable for ALS, atrial fibrillation, cardiac murmur, ventilation dependent respiratory failure, and feeding tube dependence. PAST SURGICAL HISTORY: Multiple surgeries, please see his list. MEDICATIONS: Please see medicine list. ALLERGIES: No known drug allergies. PHYSICAL EXAMINATION: His bedside ophthalmologic exam, his extraocular movements are full in both ey es. His pupils are both 4 mm and react down to 2 mm with no afferent pupillary defect. 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 He has mild marginal hyperemia of the left upper and left lo wer lids as well as trace to 1+ bulbar conjunctival injection on the left side. He does have some st ringy mucus in the inferior fornix on the left side. There is trace punctate keratitis on both sides on fluorescein staining. The anterior chamber is deep and formed. The irises are normal on both si azam and the lenses are clear on both sides. ASSESSMENT AND PLAN: 1. Conjunctivitis, left eye: Question whether this is viral versus related to dry eye disease versu s related to lagophthalmos. This does not seem to be bacterial in origin. I discussed with the hosp italist that we recommend a 1-week course of TobraDex eye drops 4 times daily in the left eye to see if it helps improve the redness and discharge. I did discuss with the patient and his that if t his is related to dry eye disease or lagophthalmos, that this redness and discharge may come and go. He may need to increase his dry eye treatment, to consider using gel or ointment at bedtime, and inc reasing the frequency of his artificial tears during the day to every couple of hours or they could e michelle consider taping his eyelids closed tonight due to the lagophthalmos. 2. Lagophthalmos, left upper lid: Recommend lubrication as above. Job ID: [id number]
[2022-08-28] MEDS: HYDROmorphone HCL 2 MG TAB PO PRN (04:15)
[2022-08-28] MEDS: ceFAZolin 2000MG 2,000 MG/15 ML SYR IV SCH ×3 (05:44→22:00)
[2022-08-28 05:55] LABS: Hematocrit (blood only) 26.2 % (40.1-51.0); Hemoglobin 8.4 g/dl (14.0-18.0); Mean Corpuscular Hemoglobin 29.6 pg (25.0-34.0); Mean Corpuscular Hgb Conc 32.1 g/dL (32.0-36.0); Mean Corpuscular Volume 92.3 fL (80.0-100.0); Mean Platelet Volume 8.6 fL (9.4-12.4); Platelet Count 468 K/uL (130-400); RDW Coefficient of Variation 16.2 % (11.5-14.5); RDW Standard Deviation 53.4 fL (36.4-46.3); Red Blood Count 2.84 M/uL (4.63-6.08); White Blood Count 12.59 K/ul (4.8-10.8)
[2022-08-28] MEDS: SODIUM CHLOR 7% 4 ML NEB NEB SCH ×2 (07:32→19:30)
[2022-08-28] MEDS: CHOLECALCIFEROL 1,000 UNITS 25 MCG TAB JT SCH (08:20)
[2022-08-28] MEDS: TOBRAMYCIN/DEXAMETHASONE OPH SUSP 2.5 ML BTL OP SCH ×4 (08:20→19:56)
[2022-08-28] MEDS: POLYETHYLENE (MIRALAX) 17 GM PACK PEG SCH (08:20)
[2022-08-28] MEDS: MIDODRINE HCL 2.5 MG TAB PO SCH ×3 (08:21→18:08)
[2022-08-28] MEDS: ARTIFICIAL TEARS OP SCH ×4 (08:21→19:55)
[2022-08-28] MEDS: LANSOPRAZOLE 15 MG SOLTAB PO SCH (08:21)
[2022-08-28] MEDS: DOCUSATE SODIUM/SENNA 50/8.6MG TAB PO SCH (08:22)
[2022-08-28] MEDS: ENOXAPARIN INJ 40 MG/0.4 ML SYR SQ SCH (08:22)
[2022-08-28] MEDS: PEPTAMEN 1.5 CAL 1,000 ML BAG JT SCH (08:22)
--- NOTE | 2022-08-28 12:40 | Hospitalist Progress Note ---
Date of Service August 28, 2022 Assessment & Plan (1) Sepsis: Plan (1) Severe sepsis: Plan: Met sepsis criteria on admission with leukocytosis 27.5, febrile, lactate 3.9 and tachycardia -likely pulm source, +sputum culture Admission CT chest with possible pneumonia noted CT abd/pelvis showed resolving acute pancreatitis with decreased size of the numerous peripancreatic fluid collections suggestive of pseudocysts. Admitting Sputum cx positive for staph aureus and klebsiella pna blood cx no growth Repeat CT abd/pelvis showedprogressively worsened acute pancreatitis with mildly increased amount of abdominal ascites. Numerous peripancreatic fluid collections appear to be generally stable from the exam obtained 6 days earlier. GI was consulted, no intervention. Repeat CT chest showed small left and trace right pleural effusions with persistent bibasilar consolidation. Initially patient was spiking fever despite Unasyn, ID was consulted and thought to be drug fevers, changed to cefepime 08/13/2022. Stool for C. difficile negative. Repeat blood culture NG5D, urine culture negative, respiratory culture with pansensitive Serratia. Status post 17 days of antibiotic, completed on 08/17. Fungal stain with no evidence of fungal infection, caspofungin is stopped per ID. 08/18 cryptococcal serum and histoplasma antigen negative. WBC and temp have been fluctuating., 08/23 and 08/24 and 08/27 Pro-Cali nega tive. ID re-evaluated 08/26 the patient, recs noted --cefazolin for 7 to 10 days, may need to extend based on clinical response. Recommends ophthalmology evaluation for left eye redness. s/p trach exchange 08/23, f/u RLL bronchial washings C/S --MSSA -->> c/w cefazolin 08/25 for 10days. Patient would likely benefit with outpatient ID follow-up. F/u Fungal Cx 08/18. Prescription provided to CM for his tube feed and IV antibiotic. D/w Ophthalmology 08/27: tobradex eye drops to left eye for conjunctivitis 4 times a day for a week (2) Chronic respiratory failure: Plan: - wean to baseline vent settings per pulm - ventilator dependent. - at baseline at this time - reported air leak in trach and need for possible up-sizing, status post tracheostomy tube exchange 08/23/2022. (3) Pseudocyst of pancreas: Plan: - initial CT with resolving acute pancreatitis with decreasing size of pseudocysts. - Repeat CT abd/pelvis showedprogressively worsened acute pancreatitis with mildly increased amount of abdominal ascites. Numerous peripancreatic fluid collections appear to be generally stable from the exam obtained 6 days earlier. - radiology consulted for paracentesis diagnostic - not enough fluid for para at this time - no likely source of infection and too small to drain either way - s/p IV abx (4) Abnormal LFTs: Plan: - likely related to sepsis-improved - CT A/P noted - monitor (5) Electrolyte imbalance: Plan: - replete prn (6) ALS (amyotrophic lateral sclerosis): Plan: - bedbound with quadriplegia, has trach on vent. - continue vent support. - continue home riluzole (7) Left ventricular systolic dysfunction: Plan: - euvolemic, off IVF. - ontinues with free water flushes Plan DVT ppx- sc lovenox, monitor Hb Code Status: Full Code Dispo: Likely to go home, CM arranging tube supplies/IV antibiotics/tube feeding for home. Prescription for IV antibiotic and PEG tube feeding provided to CM. Text document was generated using voice recognition software. It may contain grammatical or spelling errors. Kindly contact undersigned for clarification of any documentation item in question. Admission and Anticipated Discharge Date Admission Date: August 05, 2022 Subjective Patient seen and examined at bedside as a follow-up of severe sepsis POA likely secondary to pneumonia. Patient was lying in bed, on his baseline ventilation settings via tracheostomy tube, NAD, had undergone tracheostomy tube exchange 08/23, reports no issues w/ breathing today, is moving bowels OK, continue with bowel regimen d/t him being on pain meds.Pt denies any new issues. Some mild erythema of eyelids noted. d/w Ophthalmology 08/27 night; tobradex eyedrops 4 times a day x 1 week. Patient reports feeling fine and at baseline otherwise, denies chest pain or any serious issues with breathing. Patient communicates through machine. Updated patient's at bedside. Physical Exam Physical Exam: GENERAL: Alert and alert. NAD, on mechanical ventilation via trach. HEENT: No pallor, no icterus. Pupils equal, round and reactive to light. Oral mucosa moist. NECK: No JVD, no neck masses. HEART: S1 and S2 heard. Tachycardia. No murmur, no gallop. RESPIRATORY SYSTEM: Normal AP diameter. No accessory muscle use. No wheezing, b/l crackles --improving ABDOMEN: Soft, bowel sounds present, nontender, no distention. G-J tube in situ. CENTRAL NERVOUS SYSTEM: No facial droop. quadriparesis, +2 pulses b/l dorsalis pedis. Communicates via machine. EXTREMITIES: No edema, no erythema seen. Stage I-II decubitus ulcer. Results & Data Results & Data ([facility]) Vital Signs (Past 12 Hours) Vital Signs Temp Pulse Resp BP Pulse Ox O2 Del Method FiO2 08/28/22 11:05 83 14 100 30 08/28/22 08:00 37.5 C 92 H 14 100 08/28/22 08:00 126/78 08/28/22 08:00 30 08/28/22 08:00 Mechanical Vent 30 08/28/22 07:32 89 14 100 30 08/28/22 07:00 37.4 C 97 H 14 100 08/28/22 07:45 93 H 08/28/22 06:00 37.6 C H 95 H 14 99 Mechanical Vent 30 08/28/22 06:00 124/67 08/28/22 05:00 37.6 C H 84 14 99 08/28/22 04:00 37.7 C H 80 14 100 Mechanical Vent 30 08/28/22 04:00 106/58 L 08/28/22 03:00 37.7 C H 80 14 100 08/28/22 02:00 37.8 C H 80 14 99 08/28/22 02:00 124/66 08/28/22 01:00 37.6 C H 88 14 99 08/28/22 04:00 30 08/28/22 02:50 84 14 99 30 (1) Sepsis Sepsis type: sepsis due to unspecified organism Sepsis acute organ dysfunction status: unspecified Qualified Code(s): A41.9 - Sepsis, unspecified organism
--- NOTE | 2022-08-28 14:57 | Pulmonology Progress Note ---
Date of Service August 28, 2022 Assessment & Plan (1) Ventilator dependence: (2) ALS (amyotrophic lateral sclerosis): Plan Impression: 37-year-old male vent dependent due to ALS admitted with sepsis found to have sensitive Klebsiella and Serratia growing from tracheal aspirate as well as methicillin sensitive staph. He is completed a course of antibiotics and is being followed by the infectious disease service. His trach upsized 08/23 due to issues regarding leak and this appears to have resolved the leak. Bronchoscopy was performed at that time and washings appear to be growing a few staph species. -- Vent dependent respiratory failure Secondary to underlying diagnosis of ALS Continue with vent support Patient does not have any significant change from his baseline vent settings -- Tracheitis Tracheal aspirate growing Klebsiella, s/p antibiotic -- Bronc hculture is also growing MSSA Patient is already completed a course of antibiotic Will defer further antibiotic regimen to ID -- Tracheostomy in place Size 8 placed by ENT Plan: Patient came to the hospital with a pH of 7.65 and PCO2 of 23. At that time there was changing made to the tidal volume of the patient. Patient is requesting to go back to the previous ventilator settings although he has been on the new settings since the Time he came to the hospital on 08/05/2022 with no issues or complains. My recommendation for vent settings for discharge TV 560, Respiratory rate 14, PEEP 6, FiO2 30% on discharge And the patient wants to change ventilator settings to something other would recommend he consult his outpatient pulmonary when he is discharged ID note reviewed. C/w ancef for total of 10 days for MSSA growing in bronch culture Case was discussed with RN as well as RT Please note the above document was generated using voice recognition software. It may contain grammatical, syntax or spelling errors.Any formal questions or concerns about the content, text or information contained within the body of this dictation should be directly addressed to the provider for clarification. Admission and Anticipated Discharge Date Admission Date: August 05, 2022 Subjective Patient was seen and examined at bedside. No acute distress, no adverse events overnight. No issues with the ventilator Has been spiking low-grade fever Review of Systems Review of Systems: All systems reviewed & are unremarkable except as noted in Subjective Physical Exam Physical Exam: Constitutional: No acute distress HEENT: PERRLA, positive trach Respiratory system: Decreased air entry bilaterally, no wheeze, positive rhonchi bilaterally, mild crackles bilateral lower lobes CVS: S1-S2 positive, no murmurs or gallops Abdomen: Soft, nontender, nondistended, positive bowel sounds x4, positive G-J tube Extremities: +2 pulses bilaterally radialis/ dorsalis pedis, no cyanosis, +1 pitting edema bilateral lower extremity Neuro: Awake alert oriented Psych: Normal mood and affect G/U: Positive Varela Musculoskeletal: Stage I-II decubitus ulcer Skin: no rashes, warm and dry Lymphatic: no cervical or axillary lymphadenopathy Results & Data Results & Data ([facility]) Vital Signs (Past 12 Hours) Vital Signs Temp Pulse Resp BP Pulse Ox O2 Del Method FiO2 08/28/22 12:00 30 08/28/22 12:00 37.6 C H 77 12 100 08/28/22 12:00 123/73 08/28/22 11:00 37.7 C H 83 14 100 08/28/22 10:00 37.6 C H 76 14 100 08/28/22 10:00 115/65 08/28/22 09:00 37.6 C H 80 14 100 08/28/22 11:05 83 14 100 30 08/28/22 08:00 37.5 C 92 H 14 100 08/28/22 08:00 126/78 08/28/22 08:00 30 08/28/22 08:00 Mechanical Vent 30 08/28/22 07:32 89 14 100 30 08/28/22 07:00 37.4 C 97 H 14 100 08/28/22 07:45 93 H 08/28/22 06:00 37.6 C H 95 H 14 99 Mechanical Vent 30 08/28/22 06:00 124/67 08/28/22 05:00 37.6 C H 84 14 99 08/28/22 04:00 37.7 C H 80 14 100 Mechanical Vent 30 08/28/22 04:00 106/58 L 08/28/22 03:00 37.7 C H 80 14 100 08/28/22 04:00 30 Laboratory Results 08/28/22 05:33 08/27/22 05:46 PG Care Time/CCT Total # of Minutes Spent Total Time Spent with Patient: Total time spent is greater than 50% in coordination of care (as documented) at patient's floor/unit and/or counseling patient: Coding Level of Care Code 35544 Subseq Hosp Care Lvl 2 Diagnoses Ventilator dependence Z99.11 ALS (amyotrophic lateral sclerosis) G12.21
--- NOTE | 2022-08-28 15:39 | Infectious Disease Progress Nt ---
Date of Service August 28, 2022 Assessment & Plan (1) Fever: (2) Pancreatitis: (3) Pseudocyst of pancreas: (4) Chronic respiratory failure: (5) Ascites: Plan 37-year-old male, past medical history of left ventricular systolic dysfunction, chronic pancreatitis with pancreatic pseudocyst, ALS, bedbound with quadriplegia, status post trach and feeding tube, who presented to the ED on 08/05/2022 for lethargy. ID initially consulted for fevers. He was admitted with concern for infection per pt's due to lethargy, increased trach site drainage and increased SOB although no noted change in vent settings- noted to have leukocytosis, elevated lactate, relative HENRI on admissio n. CT scan chest with b/l consolidation and opacities suggestive of PNA vs. aspiration. 08/05 Sputum cx with MSSA and Klebsiella R only to cefazolin. 08/05 Bcxs NGTD 08/06 Fungal Bcx pending. 08/06 MRSA screen negative, pt had been on zosyn. empiric vanco stopped due to negative MRSA screen. Caspofungin added empirically 08/06 given risk for candidemia. diarrhea noted 08/08, but appeared c/w TF and no BMs 08/09 to date, R eye blepharitis noted.WBC improved, Fevers continued until 08/13. Repeat CT C/A/P 08/11: noted persistent bibasilar consolidation. progressively worsened acute pancreatitis with mildly increased amount of abdominal ascites. Numerous peripancreatic fluid collections appear to be generally stable from the exam obtained 6 days earlier. Discussion: Patient initially found to have a pneumonia growing sensitive species MSSA, Klebsiella. He was narrowed to Unasyn. Clinically, his respiratory status has improved. His fever curve had worsened despite improved leukocytosis. Unclear Etiology- included drug fever to Unasyn, so was discontinued and Cefepime started. GI was onsulted regarding his pancreatitis and fluid collections. No intervention On 08/14, his abdominal CT imaging was reviewwe with Radiologist, Dr. Brody. His overall pancreatitis and pancreatic fluid collections have improved. There was a slight worsening of pancreatitis from 08/05 to 08/11 but sig improved from 06/2022. In addition fluid collections are very small and do not appear drainable. He then grew Serratia (no resistance) in sputum which can be a colonizer.In light of his fever and new Serratia growth, a 5 day course of therapy from 08/13-08/17 was added. He was narrowed to Ceftriaxone which he completed on 08/17. Caspufungin was added by primary team empirically but was discontinued as there was no convincing evidence of fungal pneumonia. He eventually became afebrile with normalization of wbc 1. Tracheostomy dependent, Pneumonia ( MSSA, Klebsiella, Serratia) 2. Chronic Pancreatitis with pseudocyst, fluid collections, ascites 3. Fevers- resolved 4. ALS, quadraplegia 5. R eye blepharitis- resolved 6 Left eye conjunctivitis ( ? viral) - Discussion Completed Ceftriaxone on 08/17-completed 17 days of antibiotic therapy ( including additional serratia coverage for 5 days ) on 08/17.His WBC normalized but has increased . Plts remains elevated but stable. He has been afebrile He underwent trach exchange and bronchoscopy 08/23 . BAL culture obtained 08/23 . Cx + for few MSSA . G/s with no organisms but many Wbc. Started on Ancef. Left eye redness recurred with nose drainage and eye "stinging" .Seen by optho. Possibly viral etiology. Complete ancef for at least 7-10 days based on clincial response since MSSA recurred ( colonization vs infection). Given virulence potential of staph in lung, inc WBc , elev plts,decided to resrtart treatment Can transition Ancef to oral abx with Keflex via feeding tube if able He does not need to complete therapy with IV abx, if able to take po and stable. Appreciate optho leeanne De Leon MD MPH [facility] Admission and Anticipated Discharge Date Admission Date: August 05, 2022 Subjective This patient recommendation is based on a telemedicine consult request which was completed asynchronously through chart review and information provided by the primary physician. The patient was not seen or examined today. The evaluation is consultative in nature and all patient care and treatment decisions can either be accepted or rejected by the patient's primary hospital-based treating physician using their own independent medical judgment for their patient. Afebrile. Maribel acute events overnight. Seen by optho. Results & Data ([facility]) Vital Signs (Past 12 Hours) Vital Signs Temp Pulse Resp BP Pulse Ox O2 Del Method FiO2 08/28/22 12:00 30 10/26/22 12:00 37.6 C H 77 12 100 08/28/22 12:00 123/73 08/28/22 11:00 37.7 C H 83 14 100 08/28/22 10:00 37.6 C H 76 14 100 08/28/22 10:00 115/65 08/28/22 09:00 37.6 C H 80 14 100 08/28/22 11:05 83 14 100 30 08/28/22 08:00 37.5 C 92 H 14 100 08/28/22 08:00 126/78 08/28/22 08:00 30 08/28/22 08:00 Mechanical Vent 30 08/28/22 07:32 89 14 100 30 08/28/22 07:00 37.4 C 97 H 14 100 08/28/22 07:45 93 H 08/28/22 06:00 37.6 C H 95 H 14 99 Mechanical Vent 30 08/28/22 06:00 124/67 08/28/22 05:00 37.6 C H 84 14 99 08/28/22 04:00 37.7 C H 80 14 100 Mechanical Vent 30 08/28/22 04:00 106/58 L 08/28/22 04:00 30 Laboratory Results Laboratory Results - last 48 hr 08/27/22 08/27/22 08/27/22 05:46 05:46 05:57 WBC 15.69 H RBC 2.84 L Hgb 8.2 L Hct 26.4 L MCV 93.0 MCH 28.9 MCHC 31.1 L RDW Std Deviation 55.5 H RDW Coeff of Aissatou 16.4 H Plt Count 502 H MPV 8.5 L Sodium 136 Potassium 3.7 Chloride 103 Carbon Dioxide 24 Anion Gap 9 BUN 13 Creatinine < 0.20 L Est Cr Clr Drug Dosing 565.9 Est GFR ( Amer) > 150.0 Est GFR (Non-Af Amer) > 150.0 BUN/Creatinine Ratio TNP Glucose 129 H POC Glucose 136 H Calcium 8.8 Procalcitonin 08/27/22 08/28/22 08:28 05:33 WBC 12.59 H RBC 2.84 L Hgb 8.4 L Hct 26.2 L MCV 92.3 MCH 29.6 MCHC 32.1 RDW Std Deviation 53.4 H RDW Coeff of Aissatou 16.2 H Plt Count 468 H MPV 8.6 L Sodium Potassium Chloride Carbon Dioxide Anion Gap BUN Creatinine Est Cr Clr Drug Dosing Est GFR ( Amer) Est GFR (Non-Af Amer) BUN/Creatinine Ratio Glucose POC Glucose Calcium Procalcitonin 0.11 Diagnostic Findings Microbiology 08/23/22 Unknown Bronch Wash,Right Lower Lobe Gram Stain - Final 08/23/22 Unknown Bronch Wash,Right Lower Lobe Bronchial Culture - Final Staphylococcus aureus 08/18/22 11:27 Blood Fungal Smear - Final 08/18/22 11:27 Blood Fungal Culture - Preliminary No yeast or fungus isolated - Report 1, Additional Report to Follow. 08/06/22 09:33 Blood Fungal Smear - Final 08/06/22 09:33 Blood Fungal Culture - Preliminary No yeast or fungus isolated - Report 3, Additional report to follow. 08/13/22 12:44 Blood Aerobic Blood Culture - Final No growth in Aerobic bottle after 5 days. 08/13/22 12:44 Blood Anaerobic Blood Culture - Final No growth in Anaerobic bottle after 5 days. 08/13/22 12:48 Blood Aerobic Blood Culture - Final No growth in Aerobic bottle after 5 days. 08/13/22 12:48 Blood Anaerobic Blood Culture - Final 08/13/22 17:38 Urine,Indwelling Cath Urine Culture - Final No growth - less than 1,000 colonies/mL. 08/13/22 16:00 Sputum,Trach Gram Stain - Final 08/13/22 16:00 Sputum,Trach Sputum Culture - Final Serratia marcescens 08/05/22 17:26 Blood Aerobic Blood Culture - Final No growth in Aerobic bottle after 5 days. 08/05/22 17:26 Blood Anaerobic Blood Culture - Final 08/05/22 15:00 Blood Aerobic Blood Culture - Final No growth in Aerobic bottle after 5 days. 08/05/22 15:00 Blood Anaerobic Blood Culture - Final No growth in Anaerobic bottle after 5 days. 08/05/22 14:30 Sputum,Trach Gram Stain - Final 08/05/22 14:30 Sputum,Trach Sputum Culture - Final Staphylococcus aureus Klebsiella pneumoniae KUB X-Ray 08/25/22 18:35 KUB CLINICAL HISTORY: Constipation. Generalized abdominal pain. FINDINGS: 3 AP supine abdominal radiographs are correlated with abdominal CT dated 08/11/2022. A gastrojejunostomy tube is in place. No bowel obstruction is seen. Moderate to severe constipation is seen throughout the colon. No evidence of intraperitoneal free air is seen on these supine images. Embolization coils project over the upper abdomen. A bladder catheter and rectal temperature probe project over the pelvis. Phleboliths are noted in the pelvis. The bony structures appear intact. IMPRESSION: Moderate to severe constipation.
[2022-08-28] MEDS: ARTIFICIAL TEARS OP OINT 3.5 GM TUBE OP SCH (19:55)
[2022-08-29] MEDS: TUBE FEEDING WATER FLUSH JT SCH ×2 (01:49→08:42)
[2022-08-29] MEDS: ceFAZolin 2000MG 2,000 MG/15 ML SYR IV SCH (05:12)
[2022-08-29] MEDS: HYDROmorphone INJ 0.5 MG/0.5 ML SYR IV PRN ×2 (05:12→11:15)
[2022-08-29 05:57] LABS: Hematocrit (blood only) 26.6 % (40.1-51.0); Hemoglobin 8.5 g/dl (14.0-18.0)
[2022-08-29] MEDS: SODIUM CHLOR 7% 4 ML NEB NEB SCH (07:36)
[2022-08-29] MEDS: DOCUSATE SODIUM/SENNA 50/8.6MG TAB PO SCH (08:39)
[2022-08-29] MEDS: ARTIFICIAL TEARS OP SCH (08:39)
[2022-08-29] MEDS: MIDODRINE HCL 2.5 MG TAB PO SCH (08:39)
[2022-08-29] MEDS: POLYETHYLENE (MIRALAX) 17 GM PACK PEG SCH (08:39)
[2022-08-29] MEDS: CHOLECALCIFEROL 1,000 UNITS 25 MCG TAB JT SCH (08:39)
[2022-08-29] MEDS: LANSOPRAZOLE 15 MG SOLTAB PO SCH (08:39)
[2022-08-29] MEDS: ENOXAPARIN INJ 40 MG/0.4 ML SYR SQ SCH (08:40)
[2022-08-29] MEDS: TOBRAMYCIN/DEXAMETHASONE OPH SUSP 2.5 ML BTL OP SCH (08:41)
--- NOTE | 2022-08-29 09:05 | Pulmonology Progress Note ---
Date of Service August 29, 2022 Assessment & Plan (1) Ventilator dependence: (2) ALS (amyotrophic lateral sclerosis): Plan Impression: 37-year-old male vent dependent due to ALS admitted with sepsis found to have sensitive Klebsiella and Serratia growing from tracheal aspirate as well as methicillin sensitive staph. He is completed a course of antibiotics and is being followed by the infectious disease service. His trach upsized 08/23 due to issues regarding leak and this appears to have resolved the leak. Bronchoscopy was performed at that time and washings appear to be growing a few staph species. -- Vent dependent respiratory failure Secondary to underlying diagnosis of ALS Continue with vent support Patient does not have any significant change from his baseline vent settings -- Tracheitis Tracheal aspirate growing Klebsiella, s/p antibiotic -- Bronc hculture is also growing MSSA Patient is already completed a course of antibiotic Will defer further antibiotic regimen to ID -- Tracheostomy in place Size 8 placed by ENT Plan: Continue vent settings for discharge TV 560, Respiratory rate 14, PEEP 6, FiO2 30% on discharge Case discussed with RN Please note the above document was generated using voice recognition software. It may contain grammatical, syntax or spelling errors.Any formal questions or concerns about the content, text or information contained within the body of this dictation should be directly addressed to the provider for clarification. Admission and Anticipated Discharge Date Admission Date: August 05, 2022 Subjective Patient seen and examined at bedside. No acute distress, noted with symptoms overnight. Denies any chest pain, no headache Overall he stated he is doing better. Asking when he could go home Review of Systems Review of Systems: All systems reviewed & are unremarkable except as noted in Subjective Physical Exam Physical Exam: Constitutional: No acute distress HEENT: PERRLA, positive trach Respiratory system: Decreased air entry bilaterally, no wheeze, positive rhonchi bilaterally, mild crackles bilateral lower lobes CVS: S1-S2 positive, no murmurs or gallops Abdomen: Soft, nontender, nondistended, positive bowel sounds x4, positive G-J tube Extremities: +2 pulses bilaterally radialis/ dorsalis pedis, no cyanosis, +1 pi tting edema bilateral lower extremity Neuro: Awake alert oriented Psych: Normal mood and affect G/U: Positive Varela Musculoskeletal: Stage I-II decubitus ulcer Skin: no rashes, warm and dry Lymphatic: no cervical or axillary lymphadenopathy Results & Data Results & Data ([facility]) Vital Signs (Past 12 Hours) Vital Signs Temp Pulse Resp BP Pulse Ox FiO2 08/29/22 07:36 90 14 98 30 08/29/22 05:00 37.7 C H 90 12 98 08/29/22 05:00 120/75 08/29/22 04:00 37.6 C H 77 12 99 08/29/22 04:00 111/66 08/29/22 03:00 37.6 C H 81 12 98 08/29/22 03:00 108/65 08/29/22 02:00 37.4 C 84 14 99 08/29/22 02:00 116/70 08/29/22 04:00 30 08/29/22 03:33 83 14 98 30 08/29/22 01:00 37.6 C H 81 14 97 08/29/22 01:00 109/59 L 08/29/22 00:00 37.4 C 78 14 98 08/29/22 00:00 105/61 08/28/22 23:00 37.3 C 83 14 98 08/28/22 23:00 107/59 L 08/28/22 22:00 37.5 C 91 H 14 96 08/28/22 22:00 121/68 08/29/22 00:00 30 08/28/22 23:38 82 14 98 30 08/28/22 23:34 84 Laboratory Results 08/29/22 05:24 08/27/22 05:46 PG Care Time/CCT Total # of Minutes Spent Total Time Spent with Patient: Total time spent is greater than 50% in coordination of care (as documented) at patient's floor/unit and/or counseling patient: Coding Level of Care Code 22428 Subseq Hosp Care Lvl 1 Diagnoses Ventilator dependence Z99.11 ALS (amyotrophic lateral sclerosis) G12.21
--- NOTE | 2022-08-29 12:52 | Discharge Summary ---
Date of Service August 29, 2022 Admission HPI Per Admitting Provider 36-year-old male with PMH ALS trach, ventilator, PEG tube dependent, chronic pancreatitis, and other problems listed below who presents the ED for concern for sepsis. Patient is nonverbal but communicates with ipad and currently lethargic. History taken from at bedside. Patient was recently admitted to our hospital from 06/10-06/16 for infected pancreatic pseudocyst and [place] [facility] [place] on 06/21 on cipro which he completed a month ago. He was doing fine until Friday when he started getting lethargic. He was also noted to have blood tracheal suction, which is now mucusy and changing colors. He was brought to ED for concern of sepsis. Denies any fever, nausea, vomiting. No other issues. In the ED, he was afebrile hemodynamically stable. Pertinent labs include WBC 27, lactate 3.9, procal 1.28, K 2.5. ABG 7.65/23/25/99 % on 2 L. AST 40, ALT 81, ALP 471, AG 27. CT A/P 1. Gastrojejunostomy tube in place with decreased gastric wall thickening compared to the prior exam. 2. Resolving acute pancreatitis with decreased size of the numerous peripancreatic fluid collections suggestive of pseudocysts. 3. Small left pleural effusion with dependent bibasilar airspace opacities favoring atelectasis. 4. 4 mm left renal calculus. No ureteral calculi or hydronephrosis. 5. No bowel obstruction or bowel wall thickening. 6. Additional findings as above Admission Exam Per Admitting Provider General: Lying in bed, lethargic, on trach and home vent, not in acute distress HEENT: EOMI, dry Chest: Decreased breath sounds anteriorly CVS: Tachycardic, normal heart sounds, no murmur Abdomen: Soft, non tender, gastric drain in place, BS + Neuro: lethargic but awake, follows commands, non verbal Extremities: No cyanosis, clubbing or edema Principal Diagnosis Severe sepsis Tracheitis Pneumonia Vent dependent respiratory failure Discharge Exam GENERAL: Alert and alert. NAD, on mechanical ventilation via trach. HEENT: No pallor, no icterus. Pupils equal, round and reactive to light. Oral mucosa moist. NECK: No JVD, no neck masses. HEART: S1 and S2 heard. Tachycardia. No murmur, no gallop. RESPIRATORY SYSTEM: Normal AP diameter. No accessory muscle use. No wheezing, b/l crackles --improving ABDOMEN: Soft, bowel sounds present, nontender, no distention. G-J tube in situ. CENTRAL NERVOUS SYSTEM: No facial droop. quadriparesis, +2 pulses b/l dorsalis pedis. Communicates via machine. EXTREMITIES: No edema, no erythema seen. Stage I-II decubitus ulcer. Discharge Data Allergies Allergy/AdvReac Type Severity Reaction Status Date / Time No Known Allergies Allergy Verified 05/07/22 19:50 Consultations 08/05/22 18:57 ED Decision to Admit Stat 08/05/22 20:06 Consult Pulmonology Routine 08/05/22 23:15 Consult Real Estate Underwriter Routine 08/07/22 08:33 Consult Infectious Diseases Routine 08/13/22 12:09 Consult Gastroenterology Routine 08/16/22 07:08 Consult Otolaryngology (Head and Neck) Routine 08/26/22 17:11 Consult Ophthalmology Routine Ordered Studies 08/05/22 16:47 CT abd pelvis IV con only Stat 08/05/22 19:10 CT chest without contrast [CT chest diagnostic wo con] Routine 08/11/22 16:24 CT Abd and Pelvis [CT abd pelvis IV con only] Routine CT chest with contrast [CT chest diagnostic w con] Routine US venous doppler LE Routine Hospital Course (1) Sepsis: Plan (1) Severe sepsis: Plan: Met sepsis criteria on admission with leukocytosis 27.5, febrile, lactate 3.9 and tachycardia -likely pulm source, +sputum culture Admission CT chest with possible pneumonia noted CT abd/pelvis showed resolving acute pancreatitis with decreased size of the numerous peripancreatic fluid collections suggestive of pseudocysts. Admitting Sputum cx positive for staph aureus and klebsiella pna blood cx no growth Repeat CT abd/pelvis showedprogressively worsened acute pancreatitis with mildly increased amount of abdominal ascites. Numerous peripancreatic fluid collections appear to be generally stable from the exam obtained 6 days earlier. GI was consulted, no intervention. Repeat CT chest showed small left and trace right pleural effusions with persistent bibasilar consolidation. Initially patient was spiking fever despite Unasyn, ID was consulted and thought to be drug fevers, changed to cefepime 08/13/2022. Stool for C. difficile negative. Repeat blood culture NG5D, urine culture negative, respiratory culture with pansensitive Serratia. Status post 17 days of antibiotic, completed on 08/17. Fungal stain with no evidence of fungal infection, caspofungin is stopped per ID. 08/18 cryptococcal serum and histoplasma antigen negative. WBC and temp have been fluctuating., 08/23 and 08/24 and 08/27 Pro-Cali negative. ID re-evaluated 08/26 the patient, recs noted --cefazolin for 7 to 10 days, may need to extend based on clinical response. Recommends ophthalmology evaluation for left eye redness. s/p trach exchange 08/23, f/u RLL bronchial washings C/S --MSSA -->> c/w cefazol in 08/25 for 10days. Patient would likely benefit with outpatient ID follow-up. F/u Fungal Cx 08/18. Prescription provided to CM for his tube feed and IV antibiotic. D/w Ophthalmology 08/27: tobradex eye drops to left eye for conjunctivitis 4 times a day for a week Patient discharged on IV cefazolin for 10 days and TobraDex eyedrops for conjunctivitis for 5 days more. Home health arranged. Discharge instruction was discussed with over the phone. (2) Chronic respiratory failure: Plan: - wean to baseline vent settings per pulm - ventilator dependent. - at baseline at this time - reported air leak in trach and need for possible up-sizing, status post tracheostomy tube exchange 08/23/2022. (3) Pseudocyst of pancreas: Plan: - initial CT with resolving acute pancreatitis with decreasing size of pseudocysts. - Repeat CT abd/pelvis showedprogressively worsened acute pancreatitis with mildly increased amount of abdominal ascites. Numerous peripancreatic fluid collections appear to be generally stable from the exam obtained 6 days earlier. - radiology consulted for paracentesis diagnostic - not enough fluid for para at this time - no likely source of infection and too small to drain either way - s/p IV abx (4) ALS (amyotrophic lateral sclerosis): Plan: - bedbound with quadriplegia, has trach on vent. - continue vent support. - continue home riluzole Total Time Total Time Spent Total Time Spent (In Minutes): 35 Total Time Includes: Examination of the Patient, Discharge Planning, Medication Reconciliation, Communication With Other Providers and Other Discharge Plan Discharge Items Patient Disposition: Home - Home Health Services Reason For Visit: LETHARGY, BLOODY TRACHEAL SECRETION Discharge Diagnosis: Sepsis Pneumonia Chronic Respiratory Failure Activity: Resume your previous activity Non-emergency contact: Primary Care Provider Call non-emergency contact if: you have any medication questions and your symptoms worsen Follow-up/Referrals: Karen Carr C.R.N.P. [Primary Care Provider] - Diet: Nothing by Mouth Diet Comment: Tube feeds Addtl Attending Provider Instructions: You are started on IV antibiotic (cefazolin). Please complete course as prescribed. You will need a 10-day course. Continue tube feeds as prescribed. The recommendation from the escort car driver regarding your ventilator setting is TV 560, Respiratory rate 14, PEEP 6, FiO2 30%. For your eye infection; tobramycin eyedrops sent to the pharmacy. Please apply to your eye 4 times daily for 5 more days. Please follow-up with your primary care doctor as soon as possible. Pending Studies at Discharge: No Stand-Alone Forms: My [facility] [place], Smoking Cessation Medications and DC Order Prescriptions: New tobramycin-dexamethasone 0.3-0.1 % Drops,Suspension 2 drp ophthalmic (eye) QID 5 Days Qty: 10 0RF Continued acetaminophen [Children's Acetaminophen] 160 mg/5 mL Liquid 640 mg feeding tube Q6 PRN (Reason: Pain, Moderate) Rx Instructions: administer 20 ml into j=tube melatonin 3 mg Tablet 3 - 6 mg PO HS PRN (Reason: Sleep) tramadol 50 mg Tablet 50 mg feeding tube Q6H PRN (Reason: Pain) zinc oxide 20 % Ointment 1 applic TOPICAL TID Rx Instructions: apply to buttocks for bed sores nystatin 100,000 unit/gram Powder 1 applic TOPICAL DAILY PRN (Reason: Rash) Rx Instructions: apply to buttocks/ groin ibuprofen 100 mg/5 mL Suspension 400 mg feeding tube Q6 PRN (Reason: Pain, Moderate) Rx Instructions: administer 20 ml into j-tube atropine 1 % Drops 1 drp sublingual QID PRN (Reason: increased secretions) cholecalciferol (vitamin D3) [Vitamin D3] 25 mcg (1,000 unit) Capsule 1,000 unit feeding tube DAILY Rx Instructions: use j-tube famotidine 40 mg/5 mL (8 mg/mL) Suspension 20 mg feeding tube BID PRN (Reason: Indigestion) Rx Instructions: use j-tube guaifenesin 100 mg/5 mL Liquid 200 mg feeding tube BID PRN (Reason: Cough) Rx Instructions: administer 10 ml into j-tube midodrine 5 mg Tablet 5 mg feeding tube TID Rx Instructions: administer into j-tub morning,noon and bedtime polyethylene glycol 3350 [Miralax] 17 gram/dose Powder 17 g feeding tube DAILY PRN (Reason: Constipation) Rx Instructions: dissolve into 8 oz of water and administer into j-tube ipratropium bromide 21 mcg (0.03 %) Hoffman,Non-Aerosol 2 spray INTRANASAL TID Rx Instructions: administer into each nostril 2-3 times a day riluzole 50 mg Tablet 50 mg feeding tube DAILY Rx Instructions: must be taken on empty stomach; no food 1 hr after or 2-3 hrs before dose on hold senna leaf extract [senna] 176 mg/5 mL Syrup 15 ml feeding tube BID PRN (Reason: Constipation) Vital 1.5 Cali 0.07 gram- 1.5 kcal/mL Liquid 1 ea feeding tube UD Rx Instructions: [facility] orders 65 ml/hr continuous at (5 cartons daily) [facility] reads 1 can peg tube 7 times a day lidocaine 5 % Ointment 1 applic TOPICAL BID PRN (Reason: Pain) Rx Instructions: apply to neck A,D-aloe awpj-lnbreyaxng-y.pet Ointment 1 ea TOPICAL BID PRN (Reason: scrotal area) Lubricant Eye 57.3-42.5 % Ointment 1 applic ophthalmic (eye) HS carboxymethylcellulose sodium 0.5 % Drops 1 drp OPHTHALMIC (EYE) UD PRN (Reason: Dry Eye(S)) Artificial Tears (PF) 0.1-0.3 % Dropperette 1 drp OPB QID lansoprazole [Prevacid SoluTab] 15 mg Tablet,Disintegrat, Delay Rel 15 mg PO DAILY Qty: 0 0RF Discharge Orders: Discharge Order (Routine); Ordered 08/29/22 Ordered By: Jesus Cordon Admission Data Admit Date/Time: 08/05/22 20:52 Attending Provider: Jesus Cordon Admit Provider: Les Chen Primary Care Provider: Karen Carr Other Providers: Maya Singh ; [facility] ; Diogenes Rodrigues ; Les Chen ; Marylu Crawley ; Leandro Grace ; Jodi Eastman ; Will Pablo ; Linda Olivo ; Josette Baron ; Roselyn Hamlin ; Sharif De Leon ; Sindhu Hurtado ; Gayle Gomez ; Araceli Tavarez ; Jose Pulido Other Interventions: Discharge Summary Assessment (RN) Last Done: 08/29/22 09:22
== END 2022-08-29 11:10 | disposition home health service (06) | DRG 870 ==
LOC: ED 14:12 → 1E 20:52 → SUATTDRO 20:52 → 1E 23:11

== ENCOUNTER 2024-03-30 20:45 | Inpatient (IN) ==
--- NOTE | 2024-03-30 21:05 | Emergency Department Note ---
Impression & Plan Sepsis, ALS (amyotrophic lateral sclerosis), DKA (diabetic ketoacidosis), Acute dehydration ED Provider Note NAME: YI ROBB AGE: 38 SEX: M : 1985 ARRIVES VIA: Ambulance INFORMANT: Patient, EMS, the patient's significant other ED PROVIDER(S): José Russell DO CHIEF COMPLAINT: Chest pain HPI: The patient is a 38-year-old male who is on a ventilator chronically because of ALS. He does communicate with his significant other. The patient has been declining over the course last 24 hours. She started noticing that he was flushed and had an elevated pulse rate. He has been complaining of chest pain as well as abdominal pain. He has had some constipation but that does not normally bleed to pain like this. The patient denies having any bloody stools. The patient did have to be switched over on his ventilator and the patient's significant other does report a significant hypoxic episode. ROS: See above HPI for pertinent positives & negatives. A total of 10 systems reviewed and were otherwise negative. PAST MEDICAL HISTORY: See Below PAST SURGICAL HISTORY: See Below FAMILY HISTORY: See Below SOCIAL HISTORY: See Below HOME MEDICATIONS: See Below ALLERGIES: See Below VITALS: See Below PHYSICAL EXAMINATION: GENERAL: The patient is listless. He does answer questions with blinking. EYES: The conjunctivae are injected bilaterally. The pupils are round and reactive. EARS, NOSE, MOUTH AND THROAT: The nose is without any evidence of any deformity. Mucous membranes are dry. NECK: The neck is nontender and supple. RESPIRATORY: Shallow respirations were noted. Lung sounds were diminished bilaterally. CARDIOVASCULAR: Tachycardic and regular heart sounds were noted to auscultation. There is no definite murmur. GASTROINTESTINAL: The abdomen is soft. Abdomen is nontender. MUSCULOSKELETAL/EXTREMITIES: There is no evidence of gross deformity full range of motion is noted in the hips and shoulders. SKIN: There is pedal edema bilaterally. Skin was warm and flushed. NEUROLOGIC: Patient is awake and answers questions with blinking. MEDICAL DECISION MAKING: The patient is a 38-year-old male who presented to the emergency department at the request of his significant other. The patient has been declining especially over the last 24 hours. The patient was complaining of chest pain and abdominal pain. The patient was noticed to have redness over his entire body. When he arrived he was hypotensive and tachycardic. He was unclear if the patient was suffering from sepsis or possibly an allergic reaction. He did receive morphine today by his hospice nurse. Initially he was treated for allergic reaction which included an H2 gilmer steroids IV fluids and Benadryl. His vital signs improved slightly but once his laboratory and radiographic studies started to return he was found to have an elevated white blood cell count as well as elevated blood sugar and signs of acidosis on laboratory chemistries. He was further treated with IV antibiotics as well as insulin drip. I discussed patient's laboratory and radiographic studies with his significant other as well as himself. I [facility] have agreed to evaluate the patient in the emergency department for further management and disposition. Triage Nursing notes reviewed. Prior medical records reviewed Vital Signs: reviewed and remarkable for tachycardia. Differential diagnosis: Cardiac ischemia, aortic dissection, pulmonary embolism, pneumothorax, pneumonia, pericarditis, myocarditis, esophageal rupture, GERD, cholecystitis, pancreatitis, musculoskeletal, as well as other pathologies. ER treatment provided: See below Diagnostics interpreted by me: ECG: EKG was obtained in the emergency department. My interpretation is sinus tachycardia 121 bpm. There was no ectopy. Nonspecific ST depression as well as ST elevations were noted. This was compared to a tracing from April 23, 2023. There is an increase in rate otherwise no specific changes were noted. Cardiac Monitoring: An order was placed for continuous cardiac monitoring. The monitor shows a rate of 102 bpm with sinus tachycardia. Laboratory studies: As stated above and show below. Imaging studies: See below. Radiographic imaging was reviewed by myself Consultation(s): I discussed this case with Dr. Calvert who [facility]. ED COURSE: Procedures: none Critical Care: I have personally spent greater than 45 minutes of critical care time in the direct management of this patient. This includes bedside care, interpretation of diagnostic studies, and testing, discussion with consultants, patient, and family members, and other required patient management activities. This 45 minutes is in excess of all separately billable procedures. Past Med/Surg History Problem List (Updated 03/31/24 @ 02:04 by José Russell DO) Acute dehydration (Acute) DKA (diabetic ketoacidosis) (Acute) Sepsis (Acute) UTI (urinary tract infection) Elevated liver enzymes Septic shock HHNC (hyperglycemic hyperosmolar nonketotic coma) Encounter for pre-operative examination Ascites Ventilator dependence (Acute) Gastritis (Acute) DVT prophylaxis ALS (amyotrophic lateral sclerosis) (Acute) History of tracheostomy (Acute) currently in place; last changed 10/31/22 with a new Shley tracheostomy #8 tube Chronic respiratory failure (Acute) CURRENT TRACH 8DCT INTACT>8.5 WITH HUMIDIFICATION *REQUIRED SUCTIONED EVERY 20 MINUTES ON AVERAGE Atrial fibrillation with RVR hx of; per Dr. Bone's note:" Telemetry reveals that on 12/18/2021 at 22:12 patient reverted from sinus tachycardia at about 100 bpm to atrial fibrillation in the 150s. He subsequently converted to sinus rhythm while on an amiodarone infusion at 23:14."--no issues since Medical History Pressure ulcer CLOSED ON BUTTOCK Tracheostomy in place 12/2021 ORIGINALLY PLACED (LAST CHANGED 10/2022) Hypotension NO CARDS Hx of pancreatitis Pseudocyst of pancreas Left ventricular systolic dysfunction Uses feeding tube G-J TUBE USED FOR MEDS AND FEEDINGS Slow gastric motility D/T ALS Dry eye syndrome Cardiac murmur AN Sleep apnea TRILEGY MACHINE WITH 2.5L (WEARS CONT) ALS (amyotrophic lateral sclerosis) DX FEBRUARY 2014>CAN NOT MOVE Surgical History History of esophagogastroduodenoscopy (EGD) Hx of LASIK PRK S/P percutaneous endoscopic gastrostomy (PEG) tube placement History of tooth extraction History of herniorrhaphy Family History Mother Family history of diabetes mellitus Other No family history of adverse response to anesthesia Social History Smoking Status: Never smoker Second Hand Exposure: No; Do You Dip or Chew Tobacco: No; Hx Alcohol Use: No Hx Substance Use: Yes (BEEN MONTHS SINCE USED MEDICAL MARIJAUNA) Last Used Substance: Unknown Substance Use Type Other:: Medical Marijuana SL or salve Preferred Language: Korean Communication Ability: Impaired Communication Ability Comment: pt can not talk--uses electronic table to communicate; signs consents Ip Architect Required: No Beliefs That Will Affect Care: None marital status: Current Living Situation: Spouse and Family Current Living Situation Comment: has 2 personal aides to help in home How many Children do You have: 3 Feels Safe at Home: Yes Assistive Devices: Glasses, Hospital Bed, Oxygen - Continuous and Wheelchair Allergies Allergies Allergy/AdvReac Type Severity Reaction Status Date / Time hydromorphone [From Dilaudid] AdvReac makes pt Verified 03/31/24 00:58 retain urine Home Meds Home Medications Medication Instructions Recorded Confirmed acetaminophen 160 mg/5 mL oral 640 mg feeding tube Q6 PRN Pain, 05/07/22 03/31/24 liquid (Children's Acetaminophen) Mild atropine 1 % eye drops 1 drp sublingual QID PRN increased 05/07/22 03/31/24 secretions nystatin 100,000 unit/gram topical 1 applic topical BID 05/07/22 03/31/24 powder zinc oxide 20 % topical ointment 1 applic topical TID PRN SORES 05/07/22 03/31/24 A,D-aloe yecs-mevglyimtd-b.pet 1 ea topical BID PRN scrotal area 06/10/22 03/31/24 topical ointment carboxymethylcellulose sodium 0.5 1 drp OPB UD PRN Dry Eye(S) 06/10/22 03/31/24 % eye drops dextran 70-hypromellose (PF) 0.1 1 drp OPB QID PRN Dry Eyes 06/10/22 03/31/24 %-0.3 % eye drops in a dropperette (Artificial Tears (PF)) famotidine 40 mg/5 mL (8 mg/mL) 20 mg feeding tube BID 06/10/22 03/31/24 oral suspension midodrine 5 mg tablet 5 mg feeding tube TID 06/10/22 03/31/24 polyethylene glycol 3350 17 17 g feeding tube DAILY PRN 06/10/22 03/31/24 gram/dose oral powder (Miralax) Constipation morphine 10 mg/5 mL oral solution 5 mg feeding tube Q2H PRN Pain 10/30/22 03/31/24 [place] 1.4 Liquid Vanilla 1 ea G-tube 5XD 04/23/23 03/31/24 Lactobacillus acidophilus 2 cap feeding tube DAILY 04/23/23 03/31/24 (Acidophilus capsule) hydrocortisone 2.5 % topical 1 applic topical BID PRN Itching 04/23/23 03/31/24 ointment white petrolatum 57 % topical 1 ea topical BID PRN protectant 04/23/23 03/31/24 paste (Remedy Phytoplex Z-Guard) ciclopirox 0.77 % topical cream 1 applic topical 3XWK 03/31/24 03/31/24 (Ciclodan) coenzyme Q10 100 mg/5 mL oral syrup 10 mg feeding tube DAILY 03/31/24 03/31/24 ibuprofen 100 mg/5 mL oral 200 mg feeding tube TID PRN Fever 03/31/24 03/31/24 suspension Or Pain senna leaf extract 176 mg/5 mL 15 ml feeding tube 3XWK 03/31/24 03/31/24 oral syrup (senna) Results & Data (ED) Vital Signs Vital Signs - 24 hr 03/30/24 20:53 03/30/24 20:53 03/30/24 20:55 Temperature Temperature Source Pulse Rate 123 H 121 H 124 H Pulse Rate [Apical] Pulse Rate from SpO2 Sensor 124 H Pulse Rhythm [Apical] Respiratory Rate 20 17 Respiratory Effort / Characteristics Respiratory Depth Respiratory Pattern Blood Pressure 123/98 Blood Pressure [Right Arm] Blood Pressure Mean 106 Blood Pressure Mean [Right Arm] Pulse Oximetry 99 Oxygen Delivery Method Mechanical Vent Trach Collar Oxygen Flow Rate Fraction of Inspired Oxygen Sepsis Recent Fever Within 48 Hours Sepsis New/Unexplained Change in Mental Status Sepsis Action Taken by Nursing 03/30/24 21:00 03/30/24 21:02 03/30/24 21:02 Temperature 37.0 C Temperature Source Oral Pulse Rate 127 H 123 H Pulse Rate [Apical] Pulse Rate from SpO2 Sensor 127 H Pulse Rhythm [Apical] Respiratory Rate 21 20 Respiratory Effort / Characteristics Non-Labored Spontaneous Non-Labored Spontaneous Respiratory Depth Normal Normal Respiratory Pattern Regular Regular Blood Pressure 126/97 123/98 Blood Pressure [Right Arm] Blood Pressure Mean 106 106 Blood Pressure Mean [Right Arm] Pulse Oximetry 99 99 Oxygen Delivery Method Mechanical Vent Trach Collar Mechanical Vent Trach Collar Mechanical Vent Trach Collar Oxygen Flow Rate 3 Fraction of Inspired Oxygen Sepsis Recent Fever Within 48 Hours No Sepsis New/Unexplained Change in Mental Status No Sepsis Action Taken by Nursing No Action Required 03/30/24 21:02 03/30/24 21:02 03/30/24 21:15 Temperature 37.0 C Temperature Source Oral Pulse Rate 127 H Pulse Rate [Apical] 123 H Pulse Rate from SpO2 Sensor 127 H Pulse Rhythm [Apical] Respiratory Rate 20 21 Respiratory Effort / Characteristics Non-Labored Spontaneous Respiratory Depth Normal Respiratory Pattern Regular Blood Pressure 114/86 Blood Pressure [Right Arm] 123/98 Blood Pressure Mean 95 Blood Pressure Mean [Right Arm] 106 Pulse Oximetry 99 100 99 Oxygen Delivery Method Mechanical Vent Trach Collar Mechanical Vent Trach Collar Mechanical Vent Trach Collar Oxygen Flow Rate 3 Fraction of Inspired Oxygen Sepsis Recent Fever Within 48 Hours Sepsis New/Unexplained Change in Mental Status Sepsis Action Taken by Nursing 03/30/24 21:15 03/30/24 21:30 03/30/24 21:45 Temperature Temperature Source Pulse Rate 123 H 115 H 102 H Pulse Rate [Apical] Pulse Rate from SpO2 Sensor 115 H 102 H Pulse Rhythm [Apical] Respiratory Rate 20 20 21 Respiratory Effort / Characteristics Respiratory Depth Respiratory Pattern Blood Pressure 111/91 114/82 Blood Pressure [Right Arm] Blood Pressure Mean 97 92 Blood Pressure Mean [Right Arm] Pulse Oximetry 99 99 98 Oxygen Delivery Method Mechanical Vent Trach Collar Mechanical Vent Trach Collar Mechanical Vent Trach Collar Oxygen Flow Rate Fraction of Inspired Oxygen Sepsis Recent Fever Within 48 Hours Sepsis New/Unexplained Change in Mental Status Sepsis Action Taken by Nursing 03/30/24 21:46 03/30/24 22:00 03/30/24 22:15 Temperature Temperature Source Pulse Rate 96 H 99 H Pulse Rate [Apical] 97 H Pulse Rate from SpO2 Sensor 97 H 97 H Pulse Rhythm [Apical] Respiratory Rate 20 19 19 Respiratory Effort / Characteristics Non-Labored Spontaneous Respiratory Depth Normal Respiratory Pattern Regular Blood Pressure 105/84 106/82 Blood Pressure [Right Arm] 114/82 Blood Pressure Mean 91 90 Blood Pressure Mean [Right Arm] 92 Pulse Oximetry 100 99 98 Oxygen Delivery Method Mechanical Vent Trach Collar Mechanical Vent Trach Collar Mechanical Vent Trach Collar Oxygen Flow Rate Fraction of Inspired Oxygen Sepsis Recent Fever Within 48 Hours Sepsis New/Unexplained Change in Mental Status Sepsis Action Taken by Nursing 03/30/24 22:40 03/30/24 22:45 03/30/24 23:00 Temperature Temperature Source Pulse Rate 95 H 96 H Pulse Rate [Apical] 91 H Pulse Rate from SpO2 Sensor 95 H 95 H Pulse Rhythm [Apical] Regular Respiratory Rate 22 20 20 Respiratory Effort / Characteristics Non-Labored Respiratory Depth Normal Respiratory Pattern Regular Blood Pressure 121/85 104/83 Blood Pressure [Right Arm] 119/88 Blood Pressure Mean 97 90 Blood Pressure Mean [Right Arm] 98 Pulse Oximetry 99 100 99 Oxygen Delivery Method Mechanical Vent Trach Collar Mechanical Vent Trach Collar Mechanical Vent Trach Collar Oxygen Flow Rate Fraction of Inspired Oxygen Sepsis Recent Fever Within 48 Hours Sepsis New/Unexplained Change in Mental Status Sepsis Action Taken by Nursing 03/30/24 23:00 03/30/24 23:07 03/30/24 23:15 Temperature Temperature Source Pulse Rate 103 H 92 H 92 H Pulse Rate [Apical] Pulse Rate from SpO2 Sensor 102 H 92 H Pulse Rhythm [Apical] Respiratory Rate 21 14 14 Respiratory Effort / Characteristics Respiratory Depth Respiratory Pattern Blood Pressure 107/84 117/91 Blood Pressure [Right Arm] Blood Pressure Mean 91 99 Blood Pressure Mean [Right Arm] Pulse Oximetry 100 100 99 Oxygen Delivery Method Mechanical Vent Trach Collar Mechanical Vent Trach Collar Oxygen Flow Rate Fraction of Inspired Oxygen 30 Sepsis Recent Fever Within 48 Hours Sepsis New/Unexplained Change in Mental Status Sepsis Action Taken by Nursing 03/30/24 23:28 03/30/24 23:30 03/30/24 23:45 Temperature Temperature Source Pulse Rate 95 H 101 H Pulse Rate [Apical] 91 H Pulse Rate from SpO2 Sensor 95 H 101 H Pulse Rhythm [Apical] Regular Respiratory Rate 20 14 13 Respiratory Effort / Characteristics Non-Labored Spontaneous Respiratory Depth Normal Respiratory Pattern Regular Blood Pressure 119/88 130/97 Blood Pressure [Right Arm] 117/91 Blood Pressure Mean 98 108 Blood Pressure Mean [Right Arm] 99 Pulse Oximetry 100 100 100 Oxygen Delivery Method Mechanical Vent Trach Collar Mechanical Vent Trach Collar Mechanical Vent Trach Collar Oxygen Flow Rate Fraction of Inspired Oxygen Sepsis Recent Fever Within 48 Hours Sepsis New/Unexplained Change in Mental Status Sepsis Action Taken by Nursing 03/30/24 23:45 03/31/24 00:00 03/31/24 00:15 Temperature Temperature Source Pulse Rate 101 H 101 H 102 H Pulse Rate [Apical] Pulse Rate from SpO2 Sensor 102 H Pulse Rhythm [Apical] Respiratory Rate 14 14 Respiratory Effort / Characteristics Respiratory Depth Respiratory Pattern Blood Pressure 131/92 120/88 Blood Pressure [Right Arm] Blood Pressure Mean 105 98 Blood Pressure Mean [Right Arm] Pulse Oximetry 100 Oxygen Delivery Method Mechanical Vent Trach Collar Mechanical Vent Trach Collar Oxygen Flow Rate Fraction of Inspired Oxygen Sepsis Recent Fever Within 48 Hours Sepsis New/Unexplained Change in Mental Status Sepsis Action Taken by Nursing 03/31/24 00:30 03/31/24 00:30 03/31/24 00:45 Temperature Temperature Source Pulse Rate 102 H 93 H Pulse Rate [Apical] Pulse Rate from SpO2 Sensor 101 H 92 H Pulse Rhythm [Apical] Respiratory Rate 16 16 Respiratory Effort / Characteristics Respiratory Depth Respiratory Pattern Blood Pressure 117/84 117/84 97/72 L Blood Pressure [Right Arm] Blood Pressure Mean 97 95 80 Blood Pressure Mean [Right Arm] Pulse Oximetry 100 100 Oxygen Delivery Method Mechanical Vent Trach Collar Mechanical Vent Trach Collar Mechanical Vent Trach Collar Oxygen Flow Rate Fraction of Inspired Oxygen Sepsis Recent Fever Within 48 Hours Sepsis New/Unexplained Change in Mental Status Sepsis Action Taken by [facility] Medications Current Medication List: was personally reviewed by me Laboratory Data Attestation: I reviewed the patient's lab results. 03/30/24 21:10 03/31/24 02:05 Lab Results 03/30/24 03/30/24 03/30/24 Range/Units 21:10 21:25 22:54 WBC 23.48 H (4.8-10.8) K/ul RBC 6.36 H (4.70-6.10) M/uL Hgb 17.9 (14.0-18.0) g/dl Hct 57.1 H (42.0-52.0) % MCV 89.8 (80.0-100.0) fL MCH 28.1 (25.0-34.0) pg MCHC 31.3 L (32.0-36.0) g/dL RDW Std Deviation 57.7 H (36.4-46.3) fL RDW Coeff of [place] 19.0 H (11.5-14.5) % Plt Count 418 H (130-400) K/uL MPV 10.0 (9.4-12.4) fL Immature Gran % (Auto) 0.7 % Neut % (Auto) 83.8 % Lymph % (Auto) 7.2 % [place] % (Auto) 7.9 % Eos % (Auto) 0.1 % Baso % (Auto) 0.3 % Neut # (Auto) 19.68 H (1.40-6.50) K/uL Lymph # (Auto) 1.69 (1.20-3.40) K/uL [place] # (Auto) 1.86 H (0.11-0.59) K/uL Eos # (Auto) 0.02 (0.00-0.50) K/uL Baso # (Auto) 0.07 (0.00-0.20) K/uL Immature Gran # (Auto) 0.16 (0.01-0.20) K/uL PT 10.9 (9.0-12.0) Seconds INR 1.0 (0.9-1.1) APTT 26 (21-31) Seconds PTT Ratio 1.0 ABG pH (7.35-7.45) ABG pCO2 (35-46) mmHg ABG pO2 (80-95) mmHg ABG HCO3 (19-24) mmol/L ABG O2 Saturation (90-95) % ABG Base Excess (-9-1.8) mEq/L Praveen Test (Pos) VBG pH 7.39 (7.36-7.41) VBG pCO2 25 L (38-50) mmHg VBG pO2 81 mmHg VBG HCO3 15 mmol/L VBG O2 Saturation 98.2 % VBG Base Excess -8.1 mEq/L Oxygen Given Sodium 157 H* (136-145) mmol/L Potassium 4.5 (3.5-5.1) mmol/L Chloride 122 H (98-107) mmol/L Carbon Dioxide 16 L (21-32) mmol/L Anion Gap 19 H (3-11) BUN 43 H (6-23) mg/dl Creatinine 0.48 L (0.6-1.4) mg/dl Est Cr Clr Drug Dosing 233.5 ml/min Est GFR ( Amer) > 150.0 ml/min Est GFR (Non-Af Amer) 141.8 ml/min BUN/Creatinine Ratio 89.6 H (10-20) Glucose 817 H* (70-99(Fasting)) mg/dl POC Glucose > 600 H* (70-99) mg/dl Osmolality 395 H* (280-300) mOsm/kg Lactate 2.8 H* (0.4-2.0) mmol/L Calcium 10.6 H (8.6-10.3) mg/dl Phosphorus (2.5-4.9) mg/dl Magnesium 3.0 H (1.7-2.4) mg/dl Total Bilirubin 0.5 (0.2-1.0) mg/dl Direct Bilirubin 0.1 (0-0.2) mg/dl AST 94 H (13-39) U/L ALT 210 H (7-52) U/L Alkaline Phosphatase 154 H (34-104) U/L Troponin I High Sens 14.2 (0-20) pg/ml C-Reactive Protein 2.89 H (0-0.5) mg/dl Total Protein 9.5 H (6.0-8.3) gm/dl Albumin 5.2 H (3.4-5.0) gm/dl Globulin (2.5-4.0) gm/dl Albumin/Globulin Ratio (0.9-2) Procalcitonin 0.67 H (0-0.5) ng/ml Urine Color Urine Appearance (Clear) Urine pH (4.5-7.5) Ur Specific [place] (1.000-1.030) Urine Protein (Negative) Urine Glucose (UA) (Negative) Urine Ketones (Negative) Urine Blood (Negative) Urine Nitrite (Negative) Urine Bilirubin (Negative) Urine Urobilinogen (Negative) Ur Leukocyte Esterase (Negative) Urine WBC (Auto) (0-5) /hpf Urine RBC (Auto) (0-2) /hpf U Hyaline Cast (Auto) (0-2) /lpf U Epithel Cells (Auto) (0-2) /hpf Urine Bacteria (Auto) (None Seen) Urine Osmolality (500-800) mOsm/kg Ur Random Sodium mmol/L 03/30/24 03/30/24 03/30/24 Range/Units 23:00 23:16 23:58 WBC (4.8-10.8) K/ul RBC (4.70-6.10) M/uL Hgb (14.0-18.0) g/dl Hct (42.0-52.0) % MCV (80.0-100.0) fL MCH (25.0-34.0) pg MCHC (32.0-36.0) g/dL RDW Std Deviation (36.4-46.3) fL RDW Coeff of Aissatou (11.5-14.5) % Plt Count (130-400) K/uL MPV (9.4-12.4) fL Immature Gran % (Auto) % Neut % (Auto) % Lymph % (Auto) % [place] % (Auto) % Eos % (Auto) % Baso % (Auto) % Neut # (Auto) (1.40-6.50) K/uL Lymph # (Auto) (1.20-3.40) K/uL [place] # (Auto) (0.11-0.59) K/uL Eos # (Auto) (0.00-0.50) K/uL Baso # (Auto) (0.00-0.20) K/uL Immature Gran # (Auto) (0.01-0.20) K/uL PT (9.0-12.0) Seconds INR (0.9-1.1) APTT (21-31) Seconds PTT Ratio ABG pH 7.36 (7.35-7.45) ABG pCO2 24 L (35-46) mmHg ABG pO2 133 H (80-95) mmHg ABG HCO3 14 L (19-24) mmol/L ABG O2 Saturation 99.8 H (90-95) % ABG Base Excess -9.9 L (-9-1.8) mEq/L Praveen Test Pos (Pos) VBG pH (7.36-7.41) VBG pCO2 (38-50) mmHg VBG pO2 mmHg VBG HCO3 mmol/L VBG O2 Saturation % VBG Base Excess mEq/L Oxygen Given 3L Sodium 157 H* (136-145) mmol/L Potassium 4.2 (3.5-5.1) mmol/L Chloride 124 H (98-107) mmol/L Carbon Dioxide 17 L (21-32) mmol/L Anion Gap 16 H (3-11) BUN 38 H (6-23) mg/dl Creatinine 0.40 L (0.6-1.4) mg/dl Est Cr Clr Drug Dosing 280.2 ml/min Est GFR ( Amer) > 150.0 ml/min Est GFR (Non-Af Amer) > 150.0 ml/min BUN/Creatinine Ratio 95.0 H (10-20) Glucose 701 H* (70-99(Fasting)) mg/dl POC Glucose 457 H* (70-99) mg/dl Osmolality (280-300) mOsm/kg Lactate (0.4-2.0) mmol/L Calcium 9.8 (8.6-10.3) mg/dl Phosphorus 3.2 (2.5-4.9) mg/dl Magnesium (1.7-2.4) mg/dl Total Bilirubin 0.7 (0.2-1.0) mg/dl Direct Bilirubin (0-0.2) mg/dl AST 75 H (13-39) U/L ALT 180 H (7-52) U/L Alkaline Phosphatase 132 H (34-104) U/L Troponin I High Sens (0-20) pg/ml C-Reactive Protein (0-0.5) mg/dl Total Protein 8.3 (6.0-8.3) gm/dl Albumin 4.5 (3.4-5.0) gm/dl Globulin 3.8 (2.5-4.0) gm/dl Albumin/Globulin Ratio 1.2 (0.9-2) Procalcitonin (0-0.5) ng/ml Urine Color Urine Appearance (Clear) Urine pH (4.5-7.5) Ur Specific [place] (1.000-1.030) Urine Protein (Negative) Urine Glucose (UA) (Negative) Urine Ketones (Negative) Urine Blood (Negative) Urine Nitrite (Negative) Urine Bilirubin (Negative) Urine Urobilinogen (Negative) Ur Leukocyte Esterase (Negative) Urine WBC (Auto) (0-5) /hpf Urine RBC (Auto) (0-2) /hpf U Hyaline Cast (Auto) (0-2) /lpf U Epithel Cells (Auto) (0-2) /hpf Urine Bacteria (Auto) (None Seen) Urine Osmolality (500-800) mOsm/kg Ur Random Sodium mmol/L 03/31/24 03/31/24 03/31/24 Range/Units 00:21 00:30 00:38 WBC (4.8-10.8) K/ul RBC (4.70-6.10) M/uL Hgb (14.0-18.0) g/dl Hct (42.0-52.0) % MCV (80.0-100.0) fL MCH (25.0-34.0) pg MCHC (32.0-36.0) g/dL RDW Std Deviation (36.4-46.3) fL RDW Coeff of Aissatou (11.5-14.5) % Plt Count (130-400) K/uL MPV (9.4-12.4) fL Immature Gran % (Auto) % Neut % (Auto) % Lymph % (Auto) % [place] % (Auto) % Eos % (Auto) % Baso % (Auto) % Neut # (Auto) (1.40-6.50) K/uL Lymph # (Auto) (1.20-3.40) K/uL [place] # (Auto) (0.11-0.59) K/uL Eos # (Auto) (0.00-0.50) K/uL Baso # (Auto) (0.00-0.20) K/uL Immature Gran # (Auto) (0.01-0.20) K/uL PT (9.0-12.0) Seconds INR (0.9-1.1) APTT (21-31) Seconds PTT Ratio ABG pH (7.35-7.45) ABG pCO2 (35-46) mmHg ABG pO2 (80-95) mmHg ABG HCO3 (19-24) mmol/L ABG O2 Saturation (90-95) % ABG Base Excess (-9-1.8) mEq/L Praveen Test (Pos) VBG pH (7.36-7.41) VBG pCO2 (38-50) mmHg VBG pO2 mmHg VBG HCO3 mmol/L VBG O2 Saturation % VBG Base Excess mEq/L Oxygen Given Sodium (136-145) mmol/L Potassium (3.5-5.1) mmol/L Chloride (98-107) mmol/L Carbon Dioxide (21-32) mmol/L Anion Gap (3-11) BUN (6-23) mg/dl Creatinine (0.6-1.4) mg/dl Est Cr Clr Drug Dosing ml/min Est GFR ( Amer) ml/min Est GFR (Non-Af Amer) ml/min BUN/Creatinine Ratio (10-20) Glucose (70-99(Fasting)) mg/dl POC Glucose (70-99) mg/dl Osmolality (280-300) mOsm/kg Lactate 5.3 H* (0.4-2.0) mmol/L Calcium (8.6-10.3) mg/dl Phosphorus (2.5-4.9) mg/dl Magnesium (1.7-2.4) mg/dl Total Bilirubin (0.2-1.0) mg/dl Direct Bilirubin (0-0.2) mg/dl AST (13-39) U/L ALT (7-52) U/L Alkaline Phosphatase (34-104) U/L Troponin I High Sens (0-20) pg/ml C-Reactive Protein (0-0.5) mg/dl Total Protein (6.0-8.3) gm/dl Albumin (3.4-5.0) gm/dl Globulin (2.5-4.0) gm/dl Albumin/Globulin Ratio (0.9-2) Procalcitonin (0-0.5) ng/ml Urine Color Yellow Urine Appearance Clear (Clear) Urine pH 5.0 (4.5-7.5) Ur Specific [place] 1.044 H (1.000-1.030) Urine Protein 1+ H (Negative) Urine Glucose (UA) 3+ H (Negative) Urine Ketones 1+ H (Negative) Urine Blood Negative (Negative) Urine Nitrite Positive A (Negative) Urine Bilirubin Negative (Negative) Urine Urobilinogen Negative (Negative) Ur Leukocyte Esterase Negative (Negative) Urine WBC (Auto) 11-20 H (0-5) /hpf Urine RBC (Auto) 0-2 (0-2) /hpf U Hyaline Cast (Auto) 0-2 (0-2) /lpf U Epithel Cells (Auto) 0-2 (0-2) /hpf Urine Bacteria (Auto) 4+ H (None Seen) Urine Osmolality 656 (500-800) mOsm/kg Ur Random Sodium 34 mmol/L Administered Medications Insulin Human Regular 250 (units/ Sodium Chloride) 250 mls @ 7.7 mls/hr IV .Q24H [facility]; Protocol Stop: 04/29/24 22:29 Last Titration: 03/31/24 02:15 Dose: 7.7 units/hr, 7.7 mls/hr Documented By: JT Co-signed By: LLP Titration: 03/31/24 01:02 Dose: 7.7 units/hr, 7.7 mls/hr Documented By: SHANE Co-signed By: DML Titration: 03/31/24 00:11 Dose: 6.4 units/hr, 6.4 mls/hr Documented By: SHANE Co-signed By: XAVIER Admin: 03/30/24 22:51 Dose: 8 units/hr, 8 mls/hr Documented By: SHANE Co-signed By: KATI Vancomycin HCl 1,750 mg/ (Sodium Chloride) 535 mls @ 200 mls/hr IV ONE STA; Protocol Stop: 03/31/24 03:41 Last Admin: 03/31/24 02:11 Dose: 200 mls/hr Documented By: AKIRA Discontinued Medications Dexamethasone Sodium Phosphate (DexamethasonePf 10 Mg/Ml Vial) 10 mg IV NOW ONE Stop: 03/30/24 21:02 Last Admin: 03/30/24 21:23 Dose: 10 mg Documented By: AJAY Diphenhydramine HCl (Diphenhydramine 50 Mg/Ml Vial) 25 mg IV NOW STA Stop: 03/30/24 21:02 Last Admin: 03/30/24 21:23 Dose: 25 mg Documented By: AJAY Sodium Chloride (Nss) 1,000 mls @ 999 mls/hr IV .Q1H1M ONE Stop: 03/30/24 22:01 Last Infusion: 03/30/24 22:47 Dose: Infused Documented By: Admin: 03/30/24 21:23 Dose: 999 mls/hr Documented By: AJAY Famotidine (Pepcid 20mg Iv Push) 20 mg in 5 mls @ 2.5 mls/min IV NOW STA Stop: 03/30/24 21:02 Last Admin: 03/30/24 21:23 Dose: 2.5 mls/min Documented By: AJAY Sodium Chloride (Nss) 1,000 mls @ 999 mls/hr IV .Q1H1M ONE Stop: 03/30/24 22:55 Last Infusion: 03/31/24 00:14 Dose: Infused Documented By: Admin: 03/30/24 22:56 Dose: 999 mls/hr Documented By: SHANE Lactated Ringer's (Lr) 1,000 mls @ 999 mls/hr IV .Q1H1M ONE Stop: 03/30/24 23:20 Last Infusion: 03/31/24 00:14 Dose: Infused Documented By: Admin: 05/28/24 22:58 Dose: 999 mls/hr Documented By: SHANE Piperacillin Sod/Tazobactam (Sod 4.5 gm/ Dextrose) 100 mls @ 200 mls/hr IV ONE ONE; Protocol Stop: 03/31/24 01:59 Last Admin: 03/31/24 02:12 Dose: 200 mls/hr Documented By: AKIRA Lactated Ringer's (Lr) 1,000 mls @ 999 mls/hr IV .Q1H1M ONE Stop: 03/31/24 02:48 Last Admin: 03/31/24 02:11 Dose: 999 mls/hr Documented By: AKIRA Insulin Human Regular (Novolin-R Bolus From Bag) 8 units IV ONE ONE Stop: 03/30/24 22:46 Last Admin: 03/30/24 22:58 Dose: 8 units Documented By: SHANE Co-signed By: KATI Ioversol (Optiray 320 125ml) 117 ml IV ONCE ONE Stop: 03/30/24 22:37 Last Admin: 03/30/24 22:37 Dose: 117 ml Documented By: HANK Imaging Data Attestation: I personally reviewed and interpreted this imaging study as follows: My Impression: CT of the abdomen and pelvis was obtained in the emergency department. My interpretation is no free air or signs of bowel obstruction, final report below. CT of the chest was obtained in the emergency department. My interpretation is no free air or definite infiltrate, final report below. Radiologist's Impression: Abdomen/Pelvis CT 03/30/24 21:01 Exam(s): CT ABDOMEN + PELVIS With Contrast IV Amt: 117 ml opti 320 EXAM: CT Abdomen and Pelvis With Intravenous Contrast CLINICAL HISTORY: Reason for exam: pain. TECHNIQUE: Axial computed tomography images of the abdomen and pelvis with intravenous contrast. CTDI is 22.65 mGy and DLP is 703.02 mGy-cm. Automated exposure control was utilized for the study. A dose lowering technique was utilized adhering to the principles of ALARA. CONTRAST: Patient received 117 ml opti 320 of IV contrast COMPARISON: No relevant prior studies available. FINDINGS: Lung bases: Unremarkable. No mass. No consolidation. ABDOMEN: Liver: Hepatic steatosis. Gallbladder and bile ducts: Unremarkable. No calcified stones. No ductal dilation. Pancreas: Unremarkable. No mass. No ductal dilation. Spleen: Unremarkable. No splenomegaly. Adrenals: Unremarkable. No mass. Kidneys and ureters: Unremarkable. No solid mass. No hydronephrosis. Stomach and bowel: Unremarkable. No obstruction. No mucosal thickening. PELVIS: Appendix: No findings to suggest acute appendicitis. Bladder: Unremarkable. No mass. Reproductive: Unremarkable as visualized. ABDOMEN and PELVIS: Intraperitoneal space: Unremarkable. No free air. No significant fluid collection. Bones/joints: No acute fracture. No dislocation. Soft tissues: Unremarkable. Vasculature: Unremarkable. No abdominal aortic aneurysm. Lymph nodes: Unremarkable. No enlarged lymph nodes. Tubes, lines and devices: PEG tube in the stomach, with catheter that terminates in the jejunum. IMPRESSION: No acute findings in the abdomen or pelvis. Electronically signed by: Ga Buck MD 03/30/24 23:28 PM Chest CTA 03/30/24 21:01 Exam(s): CTA CHEST IV Amt: 117 ml opti 320 EXAM: CT Angiography Chest With Intravenous Contrast CLINICAL HISTORY: Reason for exam: PE. TECHNIQUE: Axial computed tomographic angiography images of the chest with intravenous contrast. CTDI is 22.65 mGy and DLP is 703.02 mGy-cm. Automated exposure control was utilized for the study. A dose lowering technique was utilized adhering to the principles of ALARA. MIP reconstructed images were created and reviewed. COMPARISON: No relevant prior studies available. FINDINGS: Pulmonary arteries: Unremarkable. No acute pulmonary embolism. Aorta: No acute findings. No thoracic aortic aneurysm. Lungs: Dependent atelectasis. No pleural effusion or pneumothorax. No mass. Pleural space: See above. Heart: Cardiomegaly. No significant pericardial effusion. No evidence of RV dysfunction. Bones/joints: No acute fracture. No dislocation. Soft tissues: Unremarkable. Lymph nodes: Unremarkable. No enlarged lymph nodes. Liver: Hepatic steatosis. IMPRESSION: 1. Dependent atelectasis. No pleural effusion or pneumothorax. 2. No acute pulmonary embolism. Electronically signed by: Ga Buck MD 03/30/24 23:33 PM Discharge Plan Visit Data Chief Complaint: Tachycardia Stated Complaint: INCREASED HEART RATE ED Provider: José Russell Discharge Problem: Sepsis, ALS (amyotrophic lateral sclerosis), DKA (diabetic ketoacidosis), Acute dehydration Patient Disposition: Admitted As Inpatient Discharge Instructions Interventions: ED Discharge Assessment Last Done: 03/31/24 01:14 Discharge Problem: Sepsis Qualifiers: Sepsis type: sepsis due to unspecified organism Sepsis acute organ dysfunction status: unspecified Qualified Code(s): A41.9 - Sepsis, unspecified organism DKA (diabetic ketoacidosis) Qualifiers: Diabetes mellitus type: due to underlying condition Diabetes mellitus complication detail: without coma Qualified Code(s): E08.10 - Diabetes mellitus due to underlying condition with ketoacidosis without coma
[2024-03-30] MEDS: FAMOTIDINE 20MG IV PUSH 20 MG/5 ML SYR IV STA (21:23)
[2024-03-30] MEDS: diphenhydrAMINE 50 MG/ML VIAL IV STA (21:23)
[2024-03-30] MEDS: dexAMETHasone**PF** 10 MG/ML VIAL IV ONE (21:23)
[2024-03-30] MEDS: SODIUM CHLORIDE 0.9% 1,000 ML IV ONE ×2 (21:23→22:56)
[2024-03-30 21:35] LABS: Base Excess VBG -8.1 mEq/L; HCO3 VBG 15 mmol/L; Oxygen Saturation VBG 98.2 %; PCO2 VBG 25 mmHg (38-50); PO2 VBG 81 mmHg; pH VBG 7.39 (7.36-7.41)
[2024-03-30 21:50] LABS: Basophils # (auto) 0.07 K/uL (0.00-0.20); Basophils % (auto) 0.3 %; Eosinophils # (auto) 0.02 K/uL (0.00-0.50); Eosinophils % (auto) 0.1 %; Hematocrit (blood only) 57.1 % (42.0-52.0); Hemoglobin 17.9 g/dl (14.0-18.0); Immature Granulocytes # (auto) 0.16 K/uL (0.01-0.20); Immature Granulocytes % (auto) 0.7 %; Lymphocytes # (auto) 1.69 K/uL (1.20-3.40); Lymphocytes % (auto) 7.2 %; Mean Corpuscular Hemoglobin 28.1 pg (25.0-34.0); Mean Corpuscular Hgb Conc 31.3 g/dL (32.0-36.0); Mean Corpuscular Volume 89.8 fL (80.0-100.0); Monocytes # (auto) 1.86 K/uL (0.11-0.59); Monocytes % (auto) 7.9 %; Neutrophils # (auto) 19.68 K/uL (1.40-6.50); Neutrophils % (auto) 83.8 %; Platelet Count 418 K/uL (130-400); RDW Standard Deviation 57.7 fL (36.4-46.3); Red Blood Count 6.36 M/uL (4.70-6.10); White Blood Count 23.48 K/ul (4.8-10.8)
[2024-03-30 21:58] LABS: Alanine Aminotransferase 210 U/L (7-52); Albumin Level 5.2 gm/dl (3.4-5.0); Alkaline Phosphatase 154 U/L (34-104); Anion Gap 19 (3-11); Aspartate Aminotransferase 94 U/L (13-39); BUN Creatinine Ratio 89.6 (10-20); Bilirubin Direct 0.1 mg/dl (0-0.2); Bilirubin,Total 0.5 mg/dl (0.2-1.0); Blood Urea Nitrogen 43 mg/dl (6-23); Calcium 10.6 mg/dl (8.6-10.3); Carbon Dioxide 16 mmol/L (21-32); Chloride 122 mmol/L (98-107); Creatinine Clr Calc Pharmacy 233.5 ml/min; Est GFR (African American) > 150.0 ml/min; Est GFR (Non-African American) 141.8 ml/min; Potassium 4.5 mmol/L (3.5-5.1); Sodium 157 mmol/L (136-145); Total Protein 9.5 gm/dl (6.0-8.3)
[2024-03-30 22:03] LABS: Partial Thromboplastin Time 26 Seconds (21-31); Prothrombin Time 10.9 Seconds (9.0-12.0)
[2024-03-30 22:10] LABS: C Reactive Protein 2.89 mg/dl (0-0.5); Troponin I High Sensitivity 14.2 pg/ml (0-20)
[2024-03-30 22:19] LABS: Glucose 817 mg/dl (70-99(Fasting))
[2024-03-30] MEDS ORDERED: GLUCOSE 10 TAB/TUBE PO PRN (22:19)
[2024-03-30] MEDS ORDERED: GLUCAGON FOR INJ 1 MG VIAL SQ PRN (22:19)
[2024-03-30] MEDS ORDERED: DEXTROSE 50% 50 ML SYRINGE IV PRN (22:19)
[2024-03-30] MEDS ORDERED: STAT IV Infusion **Titration per Protocol STA (22:19)
[2024-03-30] MEDS ORDERED: DKA GOAL RANGE 150-250 mg/dl ONE (22:19)
[2024-03-30] MEDS ORDERED: CARBOHYDRATES FOR HYPOGLYCEMIA PO PRN (22:19)
[2024-03-30] MEDS ORDERED: GLUCOSE 40% GEL 15 GM TUBE PO PRN (22:19)
[2024-03-30] MEDS: OPTIRAY 320 125ml IV ONE (22:37)
[2024-03-30] MEDS: INSULIN REGULAR 250 UNITS in SODIUM CHLORIDE 0.9% 247.5 ML IV SCH (22:51)
[2024-03-30] MEDS: LACTATED RINGER'S 1,000 ML IV ONE (22:58)
[2024-03-30] MEDS: NovoLIN-R BOLUS FROM BAG IV ONE (22:58)
[2024-03-30 23:22] LABS: Base Excess ABG -9.9 mEq/L (-9-1.8); HCO3 ABG 14 mmol/L (19-24); Oxygen Saturation ABG 99.8 % (90-95); PCO2 ABG 24 mmHg (35-46); PO2 ABG 133 mmHg (80-95); pH ABG 7.36 (7.35-7.45)
[2024-03-30 23:27] LABS: Allen Test Pos (Pos)
--- NOTE | 2024-03-30 23:30 | CT Scan Report ---
Exam(s): CT ABDOMEN + PELVIS With Contrast IV Amt: 117 ml opti 320 EXAM: CT Abdomen and Pelvis With Intravenous Contrast CLINICAL HISTORY: Reason for exam: pain. TECHNIQUE: Axial computed tomography images of the abdomen and pelvis with intravenous contrast. CTDI is 22.65 mGy and DLP is 703.02 mGy-cm. Automated exposure control was utilized for the study. A dose lowering technique was utilized adhering to the principles of ALARA. CONTRAST: Patient received 117 ml opti 320 of IV contrast COMPARISON: No relevant prior studies available. FINDINGS: Lung bases: Unremarkable. No mass. No consolidation. ABDOMEN: Liver: Hepatic steatosis. Gallbladder and bile ducts: Unremarkable. No calcified stones. No ductal dilation. Pancreas: Unremarkable. No mass. No ductal dilation. Spleen: Unremarkable. No splenomegaly. Adrenals: Unremarkable. No mass. Kidneys and ureters: Unremarkable. No solid mass. No hydronephrosis. Stomach and bowel: Unremarkable. No obstruction. No mucosal thickening. PELVIS: Appendix: No findings to suggest acute appendicitis. Bladder: Unremarkable. No mass. Reproductive: Unremarkable as visualized. ABDOMEN and PELVIS: Intraperitoneal space: Unremarkable. No free air. No significant fluid collection. Bones/joints: No acute fracture. No dislocation. Soft tissues: Unremarkable. Vasculature: Unremarkable. No abdominal aortic aneurysm. Lymph nodes: Unremarkable. No enlarged lymph nodes. Tubes, lines and devices: PEG tube in the stomach, with catheter that terminates in the jejunum. IMPRESSION: No acute findings in the abdomen or pelvis. Electronically signed by: Ga Buck MD 03/30/24 23:28 PM
--- NOTE | 2024-03-30 23:34 | CT Scan Report ---
Exam(s): CTA CHEST IV Amt: 117 ml opti 320 EXAM: CT Angiography Chest With Intravenous Contrast CLINICAL HISTORY: Reason for exam: PE. TECHNIQUE: Axial computed tomographic angiography images of the chest with intravenous contrast. CTDI is 22.65 mGy and DLP is 703.02 mGy-cm. Automated exposure control was utilized for the study. A dose lowering technique was utilized adhering to the principles of ALARA. MIP reconstructed images were created and reviewed. COMPARISON: No relevant prior studies available. FINDINGS: Pulmonary arteries: Unremarkable. No acute pulmonary embolism. Aorta: No acute findings. No thoracic aortic aneurysm. Lungs: Dependent atelectasis. No pleural effusion or pneumothorax. No mass. Pleural space: See above. Heart: Cardiomegaly. No significant pericardial effusion. No evidence of RV dysfunction. Bones/joints: No acute fracture. No dislocation. Soft tissues: Unremarkable. Lymph nodes: Unremarkable. No enlarged lymph nodes. Liver: Hepatic steatosis. IMPRESSION: 1. Dependent atelectasis. No pleural effusion or pneumothorax. 2. No acute pulmonary embolism. Electronically signed by: Ga Buck MD 03/30/24 23:33 PM
[2024-03-31 00:08] LABS: Alanine Aminotransferase 180 U/L (7-52); Albumin Globulin Ratio 1.2 (0.9-2); Albumin Level 4.5 gm/dl (3.4-5.0); Alkaline Phosphatase 132 U/L (34-104); Anion Gap 16 (3-11); Aspartate Aminotransferase 75 U/L (13-39); Bilirubin,Total 0.7 mg/dl (0.2-1.0); Blood Urea Nitrogen 38 mg/dl (6-23); Calcium 9.8 mg/dl (8.6-10.3); Carbon Dioxide 17 mmol/L (21-32); Chloride 124 mmol/L (98-107); Creatinine Clr Calc Pharmacy 280.2 ml/min; Est GFR (African American) > 150.0 ml/min; Est GFR (Non-African American) > 150.0 ml/min; Globulin 3.8 gm/dl (2.5-4.0); Glucose 701 mg/dl (70-99(Fasting)); Phosphorus 3.2 mg/dl (2.5-4.9); Potassium 4.2 mmol/L (3.5-5.1); Sodium 157 mmol/L (136-145); Total Protein 8.3 gm/dl (6.0-8.3)
[2024-03-31] MEDS ORDERED: VANCOMYCIN CONSULT ACTIVE PRN (00:52)
[2024-03-31 00:54] LABS: Appearance Urine Clear (Clear); Bacteria Urine Automated 4+ (None Seen); Bilirubin Urine Negative (Negative); Blood Urine Negative (Negative); Color Urine Yellow; Epithelial Cell Urine Auto 0-2 /hpf (0-2); Glucose Urine UA 3+ (Negative); Ketones Urine 1+ (Negative); Leukocyte Esterase Urine Negative (Negative); Nitrite Urine Positive (Negative); Protein Urine 1+ (Negative); RBC Urine Automated 0-2 /hpf (0-2); Specific Gravity Urine 1.044 (1.000-1.030); Urobilinogen Urine Negative (Negative)
[2024-03-31 00:55] LABS: Cast Urine Automated 0-2 /lpf (0-2)
[2024-03-31] MEDS ORDERED: PIPERACILLIN/TAZOBACTAM 4.5 GM/100 ML BAG IV STA (01:04)
--- NOTE | 2024-03-31 01:22 | Critical Care Consultation ---
Date of Consultation March 31, 2024 Assessment & Plan (1) HHNC (hyperglycemic hyperosmolar nonketotic coma): (2) Septic shock: (3) HENRI (acute kidney injury): (4) Elevated liver enzymes: (5) Ventilator dependence: (6) ALS (amyotrophic lateral sclerosis): (7) UTI (urinary tract infection): Plan Reason Critically Ill: 38 YOM with ALS previously on hospice- now full code- presents to the EMD in DKA/HHNS with sepsis criteria elevated lactate and organ dysfunciton. TO the ICU for chronic ventilator managment and follow HHNK/acid base status, fluid volume status and abx therapy. Neuro - ALS end stage, CAM ICU: [facility] - Supportive care Cardiac - Septic shock, hypovolemia - Septic shock likely secondary to UTI at this time - Organ dysfunction- Encephalopathy, HENRI, elevated LFTS - Distributive septic shock complicated by hypovolemia associated with HHNK- Continue with volume resuscitation- likely will need another 2-3 liters - follow lacatte - follow organ dysfunction - MAP goal >65 Respiratory - Chronic ventilator dependance - ARdsnet low PEEP high FIO2 algorithm- try to mimic home settings as able - Will need higher minute ventilation to continue to compensate for metabolic acidosis GI - Elevated liver enzymes, presence of G/J tube - Liver enzymes elevated as well as AlkPo4 however with normal bili as well as normal INR - Negative CT abd/pelvis- no thrombus reported- possibly reactionary at this time- however follow- will send Tylenol level, Hep panel RENAL/LYTES - HENRI, Mixed anion gap hyperchloremic metabolic acidosis with compen sation - HENRI- multifactorial- Hypovolemia/septic shock - NA 157- free water deficit currently at 5.8 liters- - Will need to replace with LR or .45 NS to euvolemia- epect NA to increase as glucose corrects- trend osmos- current serum osmo- 395 - urine osmo- pending as well as urine NA- currently making urine - UTI complicated - likey source of infection - patient requires straight cath at home - walker placed ENDO - DKA/HHNK - Likely overlap - patient with low bicarb/corrected gap acidosis/ and BG level >600 with hyperosmolar state and hypernatremia- replete with crystalloid infusion - plasmalyte or LR to euvolemia - insulin drip - slow rate of correction with priyanka goal ~100-150mg/DL - patient corrected 156 per hour currently - follow mental status - will add D5w when glucose at 250mg/dl - will add in free water flushes per G tube when euvolemia- follow correction of NA levels and serum osmo levels HEME - No acute needs ID - Septic shock - likley secondary to UTI at this time - pending further blood cultures and urine cultures - PCT elevated - Zosyn and Vanco- pending MRSA swab can likely d/c vanco LINES/IV ACCESS - PIV, Walker, G/J tube, Walker Continue use of these lines DVT PROPHYLAXIS - SCDS, Heparin 5000 units sub q q8 DISPO: ICU while needing hospital ventilatory support. I have personally spent 60 minutes of critical care time in the direct management of this patient. This is a life/limb threatening event. This includes time spent evaluating patient, direct bedside care, chart review, placing orders, interpretation of diagnostic studies, discussion with consultants, patient, and family members, as well as other required patient management activities. This time is exclusive of all separately billable procedures, and teaching time and separate from and in addition to any other critical care service time. Thank you for allowing us to participate in the care of this patient. Please refer to my attending physician's documentation for any further recommendations. History of Present Illness Reason for Consultation: ALS ventilator dependant, HHNS Requesting Physician: Raleigh Calvert MD Attending Physician: Raleigh Calvert MD History of Present Illness 38 YOM previously on hospice for ALS. Patient with medical history of: past medical history of ALS, ventilator dependent respiratory failure, a fib, and recurrent pancreatitis, surgical history notable for tracheostomy and G-J tube for feeding and drainage. Patient was brought to the EMD today via EMS secondary to patient becoming flush at home and she noted his HR increased to the reported 140s, reportedly complaining of chest and abdominal pain. He was also reported to be hypoxic when EMS brought him in. is a the bedside and reports that he received morphine prior to his symptoms, which he has received previously without any complications. She also reports no other changes in medicines. Does note that he had a changed in stool earlier in the week which was smaller and harder than normal. She also reports that he usually has no problems with his blood sugars and is not checked at home. In the EMD the patient had routine labs performed to include: PCT, blood cultures, urine culture. His labs were notable for - leukocytosis elevated NLR, HCO3 of 14 with normal PH - blood glucose of 817 gap of 16; NA 157 and PHYSICIAN [employer]ACTICE MARKET MANAGER increased to 0.40. Lactate was 2.8 and has increased to 5.3. , elevated LFTs and CRP. Urine was notable for positive nitrite negative LE and 4 = WBC with 0-2 epis. He had CXR completed, CTA of the chest-with no acute PE or pulmonary process noted; CT abdomen/pelvis with IV contrast that was also reported as negative acute process. Patient will be admitted to the ICU for ventilator management as well as HHNS and sepsis. CODE: FULL Allergies Allergy/AdvReac Type Severity Reaction Status Date / Time hydromorphone [From Dilaudid] AdvReac makes pt Verified 03/31/24 00:58 retain urine Home Medications Medication Instructions Recorded Confirmed Type acetaminophen 160 mg/5 mL oral 640 mg feeding tube Q6 PRN Pain, 05/07/22 03/31/24 History liquid (Children's Acetaminophen) Mild atropine 1 % eye drops 1 drp sublingual QID PRN increased 05/07/22 03/31/24 History secretions nystatin 100,000 unit/gram topical 1 applic topical BID 05/07/22 03/31/24 Hi story powder zinc oxide 20 % topical ointment 1 applic topical TID PRN SORES 05/07/22 03/31/24 History A,D-aloe ytdz-bgfdfhoshc-m.pet 1 ea topical BID PRN scrotal area 06/10/22 03/31/24 History topical ointment carboxymethylcellulose sodium 0.5 1 drp OPB UD PRN Dry Eye(S) 06/10/22 03/31/24 History % eye drops dextran 70-hypromellose (PF) 0.1 1 drp OPB QID PRN Dry Eyes 06/10/22 03/31/24 History %-0.3 % eye drops in a dropperette (Artificial Tears (PF)) famotidine 40 mg/5 mL (8 mg/mL) 20 mg feeding tube BID 06/10/22 03/31/24 History oral suspension midodrine 5 mg tablet 5 mg feeding tube TID 06/10/22 03/31/24 History polyethylene glycol 3350 17 17 g feeding tube DAILY PRN 06/10/22 03/31/24 History gram/dose oral powder (Miralax) Constipation morphine 10 mg/5 mL oral solution 5 mg feeding tube Q2H PRN Pain 10/30/22 03/31/24 History [place] 1.4 Liquid Vanilla 1 ea G-tube 5XD 04/23/23 03/31/24 History Lactobacillus acidophilus 2 cap feeding tube DAILY 04/23/23 03/31/24 History (Acidophilus capsule) hydrocortisone 2.5 % topical 1 applic topical BID PRN Itching 04/23/23 03/31/24 History ointment white petrolatum 57 % topical 1 ea topical BID PRN protectant 04/23/23 03/31/24 History paste (Remedy Phytoplex Z-Guard) ciclopirox 0.77 % topical cream 1 applic topical 3XWK 03/31/24 03/31/24 History (Ciclodan) coenzyme Q10 100 mg/5 mL oral syrup 10 mg feeding tube DAILY 03/31/24 03/31/24 History ibuprofen 100 mg/5 mL oral 200 mg feeding tube TID PRN Fever 03/31/24 03/31/24 History suspension Or Pain senna leaf extract 176 mg/5 mL 15 ml feeding tube 3XWK 03/31/24 03/31/24 History oral syrup (senna) Patient History Medical History Pressure ulcer CLOSED ON BUTTOCK Tracheostomy in place 12/2021 ORIGINALLY PLACED (LAST CHANGED 10/2022) Hypotension NO CARDS Hx of pancreatitis Pseudocyst of pancreas Left ventricular systolic dysfunction Uses feeding tube G-J TUBE USED FOR MEDS AND FEEDINGS Slow gastric motility D/T ALS Dry eye syndrome Cardiac murmur AN Sleep apnea TRILEGY MACHINE WITH 2.5L (WEARS CONT) ALS (amyotrophic lateral sclerosis) DX FEBRUARY 2014>CAN NOT MOVE Surgical History History of esophagogastroduodenoscopy (EGD) Hx of LASIK PRK S/P percutaneous endoscopic gastrostomy (PEG) tube placement History of tooth extraction History of herniorrhaphy Family History Mother Family history of diabetes mellitus Other No family history of adverse response to anesthesia Social History Smoking Status: Never smoker Second Hand Exposure: No; Do You Dip or Chew Tobacco: No; Hx Alcohol Use: No Hx Substance Use: No Preferred Language: Mauritian Communication Ability: Effective Communication Ability Comment: pt can not talk--uses electronic table to communicate; signs consents Wooden Furniture Polisher Required: No Beliefs That Will Affect Care: None marital status: Current Living Situation: Spouse Current Living Situation Comment: has 2 personal aides to help in home How many Children do You have: 3 Feels Safe at Home: Yes Safety Concerns: Feels Safe At This Time Assistive Devices: Hospital Bed, Mechanical Lift, Oxygen - Continuous and Other Assistive Devices Comment: trach/vent/peg tube/ tube feed Review of Systems Review of Systems: unable to be performed secondary to patient with ALS and encephalopathy Physical Exam Physical Exam: PHYSICAL EXAM: General: Somnulent Head: Normocephalic, atraumatic ENT: PERRLA, EOMI, no pharyngeal exudate, mucous membranes dry Neuro:opens eyes to voice/stimulation, falls back to sleep, able to communicate through his computer. Chest: equal rise and fall of the chest, no accessory muscle use, Clear to auscultation, on vent through trach Cardiac: Regular rate and rhythm, telemetry reviewed- sinus tachycardia, skin warm dry, cap refill <3 seconds, peripheral pulses +2 no JVD, no murmur, no edema GI: NABS x 4 quadrants, soft, nontender to palpation, no rebound, guarding or tenderness : walker to gravity draining dark urine Skin: no rash or erythema Results & Data Results & Data Vital Signs (Past 12 Hours) Vital Signs Temp Pulse Pulse Resp BP BP Pulse Ox 03/31/24 00:30 102 H 16 117/84 100 03/31/24 00:30 117/84 03/31/24 00:15 102 H 14 120/88 100 03/31/24 00:00 101 H 14 131/92 03/30/24 23:45 101 H 03/30/24 23:45 101 H 13 130/97 100 03/30/24 23:30 95 H 14 119/88 100 03/30/24 23:28 91 H 20 117/91 100 03/30/24 23:15 92 H 14 117/91 99 03/30/24 23:07 92 H 14 100 03/30/24 23:00 103 H 21 107/84 100 03/30/24 23:00 91 H 20 119/88 99 03/30/24 22:45 96 H 20 104/83 100 03/30/24 22:40 95 H 22 121/85 99 03/30/24 22:15 99 H 19 106/82 98 03/30/24 22:00 96 H 19 105/84 99 03/30/24 21:46 97 H 20 114/82 100 03/30/24 21:45 102 H 21 114/82 98 03/30/24 21:30 115 H 20 111/91 99 03/30/24 21:15 123 H 20 99 03/30/24 21:15 127 H 21 114/86 99 03/30/24 21:02 37.0 C 123 H 20 123/98 100 03/30/24 21:02 99 03/30/24 21:02 03/30/24 21:02 37.0 C 123 H 20 123/98 99 03/30/24 21:00 127 H 21 126/97 99 03/30/24 20:55 124 H 17 123/98 99 03/30/24 20:53 121 H 20 03/30/24 20:53 123 H O2 Del Method O2 Flow Rate FiO2 03/31/24 00:30 Mechanical Vent, Trach Collar 03/31/24 00:30 Mechanical Vent, Trach Collar 03/31/24 00:15 Mechanical Vent, Trach Collar 03/31/24 00:00 Mechanical Vent, Trach Collar 03/30/24 23:45 03/30/24 23:45 Mechanical Vent, Trach Collar 03/30/24 23:30 Mechanical Vent, Trach Collar 03/30/24 23:28 Mechanical Vent, Trach Collar 03/30/24 23:15 Mechanical Vent, Trach Collar 03/30/24 23:07 30 03/30/24 23:00 Mechanical Vent, Trach Collar 03/30/24 23:00 Mechanical Vent, Trach Collar 03/30/24 22:45 Mechanical Vent, Trach Collar 03/30/24 22:40 Mechanical Vent, Trach Collar 03/30/24 22:15 Mechanical Vent, Trach Collar 03/30/24 22:00 Mechanical Vent, Trach Collar 03/30/24 21:46 Mechanical Vent, Trach Collar 03/30/24 21:45 Mechanical Vent, Trach Collar 03/30/24 21:30 Mechanical Vent, Trach Collar 03/30/24 21:15 Mechanical Vent, Trach Collar 03/30/24 21:15 Mechanical Vent, Trach Collar 03/30/24 21:02 Mechanical Vent, Trach Collar 03/30/24 21:02 Mechanical Vent, Trach Collar 3 03/30/24 21:02 Mechanical Vent, Trach Collar 03/30/24 21:02 Mechanical Vent, Trach Collar 3 03/30/24 21:00 Mechanical Vent, Trach Collar 03/30/24 20:55 Mechanical Vent, Trach Collar 03/30/24 20:53 03/30/24 20:53 Laboratory Results Abnormal lab results 03/30/24 03/30/24 03/30/24 Range/Units 21:10 21:25 22:54 WBC 23.48 H (4.8-10.8) K/ul RBC 6.36 H (4.70-6.10) M/uL Hct 57.1 H (42.0-52.0) % MCHC 31.3 L (32.0-36.0) g/dL RDW Std Deviation 57.7 H (36.4-46.3) fL RDW Coeff of Aissatou 19.0 H (11.5-14.5) % Plt Count 418 H (130-400) K/uL Neut # (Auto) 19.68 H (1.40-6.50) K/uL Young # (Auto) 1.86 H (0.11-0.59) K/uL ABG pCO2 (35-46) mmHg ABG pO2 (80-95) mmHg ABG HCO3 (19-24) mmol/L ABG O2 Saturation (90-95) % ABG Base Excess (-9-1.8) mEq/L VBG pCO2 25 L (38-50) mmHg Sodium 157 H* (136-145) mmol/L Chloride 122 H (98-107) mmol/L Carbon Dioxide 16 L (21-32) mmol/L Anion Gap 19 H (3-11) BUN 43 H (6-23) mg/dl Creatinine 0.48 L (0.6-1.4) mg/dl BUN/Creatinine Ratio 89.6 H (10-20) Glucose 817 H* (70-99(Fasting)) mg/dl POC Glucose > 600 H* (70-99) mg/dl Lactate 2.8 H* (0.4-2.0) mmol/L Calcium 10.6 H (8.6-10.3) mg/dl Magnesium 3.0 H (1.7-2.4) mg/dl AST 94 H (13-39) U/L ALT 210 H (7-52) U/L Alkaline Phosphatase 154 H (34-104) U/L C-Reactive Protein 2.89 H (0-0.5) mg/dl Total Protein 9.5 H (6.0-8.3) gm/dl Albumin 5.2 H (3.4-5.0) gm/dl Procalcitonin 0.67 H (0-0.5) ng/ml Ur Specific [place] (1.000-1.030) Urine Protein (Negative) Urine Glucose (UA) (Negative) Urine Ketones (Negative) Urine Nitrite (Negative) Urine WBC (Auto) (0-5) /hpf Urine Bacteria (Auto) (None Seen) 03/30/24 03/30/24 03/30/24 Range/Units 23:00 23:16 23:58 WBC (4.8-10.8) K/ul RBC (4.70-6.10) M/uL Hct (42.0-52.0) % MCHC (32.0-36.0) g/dL RDW Std Deviation (36.4-46.3) fL RDW Coeff of Aissatou (11.5-14.5) % Plt Count (130-400) K/uL Neut # (Auto) (1.40-6.50) K/uL Young # (Auto) (0.11-0.59) K/uL ABG pCO2 24 L (35-46) mmHg ABG pO2 133 H (80-95) mmHg ABG HCO3 14 L (19-24) mmol/L ABG O2 Saturation 99.8 H (90-95) % ABG Base Excess -9.9 L (-9-1.8) mEq/L VBG pCO2 (38-50) mmHg Sodium 157 H* (136-145) mmol/L Chloride 124 H (98-107) mmol/L Carbon Dioxide 17 L (21-32) mmol/L Anion Gap 16 H (3-11) BUN 38 H (6-23) mg/dl Creatinine 0.40 L (0.6-1.4) mg/dl BUN/Creatinine Ratio 95.0 H (10-20) Glucose 701 H* (70-99(Fasting)) mg/dl POC Glucose 457 H* (70-99) mg/dl Lactate (0.4-2.0) mmol/L Calcium (8.6-10.3) mg/dl Magnesium (1.7-2.4) mg/dl AST 75 H (13-39) U/L ALT 180 H (7-52) U/L Alkaline Phosphatase 132 H (34-104) U/L C-Reactive Protein (0-0.5) mg/dl Total Protein (6.0-8.3) gm/dl Albumin (3.4-5.0) gm/dl Procalcitonin (0-0.5) ng/ml Ur Specific [place] (1.000-1.030) Urine Protein (Negative) Urine Glucose (UA) (Negative) Urine Ketones (Negative) Urine Nitrite (Negative) Urine WBC (Auto) (0-5) /hpf Urine Bacteria (Auto) (None Seen) 03/31/24 03/31/24 03/31/24 Range/Units 00:21 00:30 00:56 WBC (4.8-10.8) K/ul RBC (4.70-6.10) M/uL Hct (42.0-52.0) % MCHC (32.0-36.0) g/dL RDW Std Deviation (36.4-46.3) fL RDW Coeff of Aissatou (11.5-14.5) % Plt Count (130-400) K/uL Neut # (Auto) (1.40-6.50) K/uL Young # (Auto) (0.11-0.59) K/uL ABG pCO2 (35-46) mmHg ABG pO2 (80-95) mmHg ABG HCO3 (19-24) mmol/L ABG O2 Saturation (90-95) % ABG Base Excess (-9-1.8) mEq/L VBG pCO2 (38-50) mmHg Sodium (136-145) mmol/L Chloride (98-107) mmol/L Carbon Dioxide (21-32) mmol/L Anion Gap (3-11) BUN (6-23) mg/dl Creatinine (0.6-1.4) mg/dl BUN/Creatinine Ratio (10-20) Glucose (70-99(Fasting)) mg/dl POC Glucose 388 H* (70-99) mg/dl Lactate 5.3 H* (0.4-2.0) mmol/L Calcium (8.6-10.3) mg/dl Magnesium (1.7-2.4) mg/dl AST (13-39) U/L ALT (7-52) U/L Alkaline Phosphatase (34-104) U/L C-Reactive Protein (0-0.5) mg/dl Total Protein (6.0-8.3) gm/dl Albumin (3.4-5.0) gm/dl Procalcitonin (0-0.5) ng/ml Ur Specific [place] 1.044 H (1.000-1.030) Urine Protein 1+ H (Negative) Urine Glucose (UA) 3+ H (Negative) Urine Ketones 1+ H (Negative) Urine Nitrite Positive A (Negative) Urine WBC (Auto) 11-20 H (0-5) /hpf Urine Bacteria (Auto) 4+ H (None Seen) Diagnostic Findings Abdomen/Pelvis CT 03/30/24 21:01 Exam(s): CT ABDOMEN + PELVIS With Contrast IV Amt: 117 ml opti 320 EXAM: CT Abdomen and Pelvis With Intravenous Contrast CLINICAL HISTORY: Reason for exam: pain. TECHNIQUE: Axial computed tomography images of the abdomen and pelvis with intravenous contrast. CTDI is 22.65 mGy and DLP is 703.02 mGy-cm. Automated exposure control was utilized for the study. A dose lowering technique was utilized adhering to the principles of ALARA. CONTRAST: Patient received 117 ml opti 320 of IV contrast COMPARISON: No relevant prior studies available. FINDINGS: Lung bases: Unremarkable. No mass. No consolidation. ABDOMEN: Liver: Hepatic steatosis. Gallbladder and bile ducts: Unremarkable. No calcified stones. No ductal dilation. Pancreas: Unremarkable. No mass. No ductal dilation. Spleen: Unremarkable. No splenomegaly. Adrenals: Unremarkable. No mass. Kidneys and ureters: Unremarkable. No solid mass. No hydronephrosis. Stomach and bowel: Unremarkable. No obstruction. No mucosal thickening. PELVIS: Appendix: No findings to suggest acute appendicitis. Bladder: Unremarkable. No mass. Reproductive: Unremarkable as visualized. ABDOMEN and PELVIS: Intraperitoneal space: Unremarkable. No free air. No significant fluid collection. Bones/joints: No acute fracture. No dislocation. Soft tissues: Unremarkable. Vasculature: Unremarkable. No abdominal aortic aneurysm. Lymph nodes: Unremarkable. No enlarged lymph nodes. Tubes, lines and devices: PEG tube in the stomach, with catheter that terminates in the jejunum. IMPRESSION: No acute findings in the abdomen or pelvis. Electronically signed by: Ga Buck MD 03/30/24 23:28 PM Chest CTA 03/30/24 21:01 Exam(s): CTA CHEST IV Amt: 117 ml opti 320 EXAM: CT Angiography Chest With Intravenous Contrast CLINICAL HISTORY: Reason for exam: PE. TECHNIQUE: Axial computed tomographic angiography images of the chest with intravenous contrast. CTDI is 22.65 mGy and DLP is 703.02 mGy-cm. Automated exposure control was utilized for the study. A dose lowering technique was utilized adhering to the principles of ALARA. MIP reconstructed images were created and reviewed. COMPARISON: No relevant prior studies available. FINDINGS: Pulmonary arteries: Unremarkable. No acute pulmonary embolism. Aorta: No acute findings. No thoracic aortic aneurysm. Lungs: Dependent atelectasis. No pleural effusion or pneumothorax. No mass. Pleural space: See above. Heart: Cardiomegaly. No significant pericardial effusion. No evidence of RV dysfunction. Bones/joints: No acute fracture. No dislocation. Soft tissues: Unremarkable. Lymph nodes: Unremarkable. No enlarged lymph nodes. Liver: Hepatic steatosis. IMPRESSION: 1. Dependent atelectasis. No pleural effusion or pneumothorax. 2. No acute pulmonary embolism. Electronically signed by: Ga Buck MD 03/30/24 23:33 PM Medications Administered Insulin Human Regular 250 (units/ Sodium Chloride) 250 mls @ 8 mls/hr IV .Q24H MYNOR; Protocol Stop: 04/29/24 22:29 Last Titration: 03/31/24 01:02 Dose: 7.7 units/hr, 7.7 mls/hr Documented By: KLS Co-signed By: DML Titration: 03/31/24 00:11 Dose: 6.4 units/hr, 6.4 mls/hr Documented By: SHANE Co-signed By: XAVIER Admin: 03/30/24 22:51 Dose: 8 units/hr, 8 mls/hr Documented By: SHANE Co-signed By: KATI Discontinued Medications Dexamethasone Sodium Phosphate (DexamethasonePf 10 Mg/Ml Vial) 10 mg IV NOW ONE Stop: 03/30/24 21:02 Last Admin: 03/30/24 21:23 Dose: 10 mg Documented By: AJAY Diphenhydramine HCl (Diphenhydramine 50 Mg/Ml Vial) 25 mg IV NOW STA Stop: 03/30/24 21:02 Last Admin: 03/30/24 21:23 Dose: 25 mg Documented By: AJAY Sodium Chloride (Nss) 1,000 mls @ 999 mls/hr IV .Q1H1M ONE Stop: 03/30/24 22:01 Last Infusion: 03/30/24 22:47 Dose: Infused Documented By: Admin: 03/30/24 21:23 Dose: 999 mls/hr Documented By: AJAY Famotidine (Pepcid 20mg Iv Push) 20 mg in 5 mls @ 2.5 mls/min IV NOW STA Stop: 03/30/24 21:02 Last Admin: 03/30/24 21:23 Dose: 2.5 mls/min Documented By: AJAY Sodium Chloride (Nss) 1,000 mls @ 999 mls/hr IV .Q1H1M ONE Stop: 03/30/24 22:55 Last Infusion: 03/31/24 00:14 Dose: Infused Documented By: Admin: 03/30/24 22:56 Dose: 999 mls/hr Documented By: SHANE Lactated Ringer's (Lr) 1,000 mls @ 999 mls/hr IV .Q1H1M ONE Stop: 03/30/24 23:20 Last Infusion: 03/31/24 00:14 Dose: Infused Documented By: Admin: 03/30/24 22:58 Dose: 999 mls/hr Documented By: SHANE Insulin Human Regular (Novolin-R Bolus From Bag) 8 units IV ONE ONE Stop: 03/30/24 22:46 Last Admin: 03/30/24 22:58 Dose: 8 units Documented By: SHANE Co-signed By: KATI Ioversol (Optiray 320 125ml) 117 ml IV ONCE ONE Stop: 03/30/24 22:37 Last Admin: 03/30/24 22:37 Dose: 117 ml Documented By: PLW Coding Level of Care Code 90516 CRITICAL CARE 1ST 30-74M Diagnoses HHNC (hyperglycemic hyperosmolar nonketotic coma) E11.01 Septic shock A41.9; R65.21 HENRI (acute kidney injury) N17.9 Elevated liver enzymes R74.8 Ventilator dependence Z99.11 ALS (amyotrophic lateral sclerosis) G12.21 UTI (urinary tract infection) N39.0
[2024-03-31] MEDS ORDERED: NON-FORMULARY MEDICATION (Carboxymethylcellulose Sodium 0.5 % Drops) OPB PRN (01:27)
[2024-03-31] MEDS ORDERED: [UNRECOGNIZED DRUG - OTHER] TOP PRN (01:27)
[2024-03-31] MEDS ORDERED: WHITE PETROLATUM TOP PRN (01:27)
[2024-03-31] MEDS ORDERED: HYDROCORTISONE 2.5% OINT 20 GM TUBE TOP PRN (01:27)
[2024-03-31] MEDS ORDERED: ATROPINE SULFATE 1% OP SOLN 5 ML BTL SL PRN (01:27)
[2024-03-31] MEDS ORDERED: [UNRECOGNIZED DRUG - MIXTURE] TOP PRN (01:27)
[2024-03-31] MEDS ORDERED: POLYETHYLENE (MIRALAX) 17 GM PACK PEG PRN (01:27)
[2024-03-31] MEDS ORDERED: ARTIFICIAL TEARS OP PRN (01:40)
[2024-03-31] MEDS ORDERED: BUTT PASTE (ZINC OXIDE 16%) 171 APPLN/57 GM JAR TOP PRN (01:41)
[2024-03-31] MEDS: VANCOMYCIN HCL 1,750 MG in SODIUM CHLORIDE 0.9% 500 ML IV STA (02:11)
[2024-03-31] MEDS: LACTATED RINGER'S 1,000 ML IV ONE (02:11)
[2024-03-31] MEDS: PIPERACILLIN/TAZOBACTAM 4.5 GM in DEXTROSE 5% MINI-B 100 ML IV ONE (02:12)
[2024-03-31] MEDS: LACTATED RINGER'S 500 ML IV ONE (02:45)
[2024-03-31 02:48] LABS: Anion Gap 11 (3-11); BUN Creatinine Ratio 87.1 (10-20); Blood Urea Nitrogen 27 mg/dl (6-23); Calcium 8.5 mg/dl (8.6-10.3); Carbon Dioxide 18 mmol/L (21-32); Chloride 131 mmol/L (98-107); Creatinine Clr Calc Pharmacy 361.6 ml/min; Est GFR (African American) > 150.0 ml/min; Est GFR (Non-African American) > 150.0 ml/min; Glucose 425 mg/dl (70-99(Fasting)); Phosphorus 2.2 mg/dl (2.5-4.9); Potassium 3.5 mmol/L (3.5-5.1); Sodium 160 mmol/L (136-145)
--- NOTE | 2024-03-31 03:07 | History & Physical Report ---
Date of Service March 31, 2024 Assessment & Plan (1) HHNC (hyperglycemic hyperosmolar nonketotic coma): Plan: 38-year-old male with past med history significant for ALS s/p trach, ventilator, G-tube placement, chronic pancreatitis , history of pancreatic pseudocyst and pancreatic necrosis, chronic respiratory failure requiring continuous mechanical ventilation through tracheostomy, allergic rhinitis, impaired mobility and ADLs , history of severe sepsis pneumonia, history of isolated atrial fibrillation, cardiac murmur, dry eye syndrome, history of left ventricular systolic dysfunction, slow gastric motility, s/p feeding tube who lives at home with his was brought in because of tachycardia and flushing.Patient is nonverbal He answers with flicking of his eyes. One flick means yes and two flicks means no.. Around 10 AM he complained of chest pain and abdominal pain. Home health nurse give him morphine at 1 PM. After that he developed flushing all over his body and was tachycardic heart rate in 140s per and was brought to ER.. As per the patient is somewhat constipated lately. He can void sometimes and sometimes have to straight cath per . Seems he is not micturating much lately. As per patient is tolerating tu be feeds okay. Denies any bloody stools. Afebrile. No cough. No vomiting as per . In the ER his sugars were running very high. In the ER when he came in he was hypotensive and tachycardic. Initially was treated for allergic reaction with H2 gilmer and IV steroids and Benadryl as was having flushing and received morphine prior to coming to ER.. Labs showed elevated white count and elevated blood sugars,started on insulin drip. Currently hemodynamics are okay. Patient flicks eyes yes for headache, nausea, chest pain, abdominal pain. patient had prolonged hospital stay in August 2022 with severe sepsis with s/p trach exchange and right lower lobe bronchial washings and cultures grew MSSA. sputum cultures grew pansensitive serratia. hyperglycemic hyperosmolar nonketotic coma aggressive IV fluids, insulin drip, close monitor labs, close monitoring ICU fluids as per critical care . follow HbA1c levels hypernatremia from 157 slow correction frequent following up labs possible sepsis and septic shock with elevated lactic acid leukocytosis and tachycardia possible UTI CTA chest and CT abdomen pelvis are okay empirically placed on Zosyn and Vanco on IV fluids will follow the cultures ALS s/p trach chronic respiratory requiring continuous mechanical ventilation through trach on ventilator Vent management as per critical care nutrition on tube feeds chronic systolic CHF mild global hypokinesis on echo done in 12/2021 EF of 45 to 50% grade 1dysfunction monitor for volume overload HENRI creatinine 0.4 baseline 0.2 DVT prophylaxis heparin subcu disposition ICU full code per History of Present Illness Chief Complaint: DKA/HHS, hypernatremia, leukocytosis Primary Care Provider: Mikala Cyr NP 38-year-old male with past med history significant for ALS s/p trach, ventilator, G-tube placement, chronic pancreatitis , history of pancreatic pseudocyst and pancreatic necrosis, chronic respiratory failure requiring continuous mechanical ventilation through tracheostomy, allergic rhinitis, impaired mobility and ADLs , history of severe sepsis pneumonia, history of isolated atrial fibrillation, cardiac murmur, dry eye syndrome, history of left ventricular systolic dysfunction, slow gastric motility, s/p feeding tube who lives at home with his was brought in because of tachycardia and flushing.Patient is nonverbal He answers with flicking of his eyes. One flick means yes and two flicks means no.. Around 10 AM he complained of chest pain and abdominal pain. Home health nurse give him morphine at 1 PM. After that he developed flushing all over his body and was tachycardic heart rate in 140s per and was brought to ER.. As per the patient is somewhat constipated lately. He can void sometimes and sometimes have to straight cath per . Seems he is not micturating much lately. As per patient is tolerating tube feeds okay. Denies any bloody stools. Afebrile. No cough. No vomiting as per . In the ER his sugars were running very high. In the ER when he came in he was hypotensive and tachycardic. Initially was treated for allergic reaction with H2 gilmer and IV steroids and Benadryl as was having flushing and received morphine prior to coming to ER.. Labs showed elevated white count and elevated blood sugars,started on insulin drip. Currently hemodynamics are okay. Patient flicks eyes yes for headache, nausea, chest pain, abdominal pain. patient had prolonged hospital stay in August 2022 with severe sepsis with s/p trach exchange and right lower lobe bronchial washings and cultures grew MSSA. sputum cultures grew pansensitive serratia. Past medical history. As mentioned above. past surgical history. G-tube. EGD. Aspiration of abscess. Replace G-tube. Social history. . No smoking. No alcohol use. Currently no drug use. Family history. Brother has chronic rhinitis. Father has idiopathic pulmonary fibrosis. Paternal uncle has asthma. Allergies Allergy/AdvReac Type Severity Reaction Status Date / Time hydromorphone [From Dilaudid] AdvReac makes pt Verified 03/31/24 00:58 retain urine Home Medications Medication Instructions Recorded Confirmed Type acetaminophen 160 mg/5 mL oral 640 mg feeding tube Q6 PRN Pain, 05/07/22 03/31/24 History liquid (Children's Acetaminophen) Mild atropine 1 % eye drops 1 drp sublingual QID PRN increased 05/07/22 03/31/24 History secretions nystatin 100,000 unit/gram topical 1 applic topical BID 05/07/22 03/31/24 History powder zinc oxide 20 % topical ointment 1 applic topical TID PRN SORES 05/07/22 03/31/24 History A,D-aloe jvxw-cokshjxxqk-t.pet 1 ea topical BID PRN scrotal area 06/10/22 03/31/24 History topical ointment carboxymethylcellulose sodium 0.5 1 drp OPB UD PRN Dry Eye(S) 06/10/22 03/31/24 History % eye drops dextran 70-hypromellose (PF) 0.1 1 drp OPB QID PRN Dry Eyes 06/10/22 03/31/24 History %-0.3 % eye drops in a dropperette (Artificial Tears (PF)) famotidine 40 mg/5 mL (8 mg/mL) 20 mg feeding tube BID 06/10/22 03/31/24 History oral suspension midodrine 5 mg tablet 5 mg feeding tube TID 06/10/22 03/31/24 History polyethylene glycol 3350 17 17 g feeding tube DAILY PRN 06/10/22 03/31/24 History gram/dose oral powder (Miralax) Constipation morphine 10 mg/5 mL oral solution 5 mg feeding tube Q2H PRN Pain 10/30/22 03/31/24 History [place] 1.4 Liquid Vanilla 1 ea G-tube 5XD 04/23/23 03/31/24 History Lactobacillus acidophilus 2 cap feeding tube DAILY 04/23/23 03/31/24 History (Acidophilus capsule) hydrocortisone 2.5 % topical 1 applic topical BID PRN Itching 04/23/23 03/31/24 History ointment white petrolatum 57 % topical 1 ea topical BID PRN protectant 04/23/23 03/31/24 History paste (Remedy Phytoplex Z-Guard) ciclopirox 0.77 % topical cream 1 applic topical 3XWK 03/31/24 03/31/24 History (Ciclodan) coenzyme Q10 100 mg/5 mL oral syrup 10 mg feeding tube DAILY 03/31/24 03/31/24 History ibuprofen 100 mg/5 mL oral 200 mg feeding tube TID PRN Fever 03/31/24 03/31/24 History suspension Or Pain senna leaf extract 176 mg/5 mL 15 ml feeding tube 3XWK 03/31/24 03/31/24 History oral syrup (senna) Past Med/Surg History Problem List (Updated 03/31/24 @ 02:04 by José Russell DO) Acute dehydration (Acute) DKA (diabetic ketoacidosis) (Acute) Sepsis (Acute) UTI (urinary tract infection) Elevated liver enzymes Septic shock HHNC (hyperglycemic hyperosmolar nonketotic coma) Encounter for pre-operative examination Ascites Ventilator dependence (Acute) Gastritis (Acute) DVT prophylaxis ALS (amyotrophic lateral sclerosis) (Acute) History of tracheostomy (Acute) currently in place; last changed 10/31/22 with a new Shley tracheostomy #8 tube Chronic respiratory failure (Acute) CURRENT TRACH 8DCT INTACT>8.5 WITH HUMIDIFICATION *REQUIRED SUCTIONED EVERY 20 MINUTES ON AVERAGE Atrial fibrillation with RVR hx of; per Dr. Bone's note:" Telemetry reveals that on 12/18/2021 at 22:12 patient reverted from sinus tachycardia at about 100 bpm to atrial fibrillation in the 150s. He subsequently converted to sinus rhythm while on an amiodarone infusion at 23:14."--no issues since Medical History Pressure ulcer CLOSED ON BUTTOCK Tracheostomy in place 12/2021 ORIGINALLY PLACED (LAST CHANGED 10/2022) Hypotension NO CARDS Hx of pancreatitis Pseudocyst of pancreas Left ventricular systolic dysfunction Uses feeding tube G-J TUBE USED FOR MEDS AND FEEDINGS Slow gastric motility D/T ALS Dry eye syndrome Cardiac murmur AN INFANT Sleep apnea TRILEGY MACHINE WITH 2.5L (WEARS CONT) ALS (amyotrophic lateral sclerosis) DX FEBRUARY 2014>CAN NOT MOVE Surgical History History of esophagogastroduodenoscopy (EGD) Hx of LASIK PRK S/P percutaneous endoscopic gastrostomy (PEG) tube placement History of tooth extraction History of herniorrhaphy Family History Mother Family history of diabetes mellitus Other No family history of adverse response to anesthesia Social History Smoking Status: Never smoker Second Hand Exposure: No; Do You Dip or Chew Tobacco: No; Hx Alcohol Use: No Hx Substance Use: No Preferred Language: Ukrainian Communication Ability: Effective Communication Ability Comment: pt can not talk--uses electronic table to communicate; signs consents Candle Molder Required: No Beliefs That Will Affect Care: None marital status: Current Living Situation: Spouse Current Living Situation Comment: has 2 personal aides to help in home How many Children do You have: 3 Feels Safe at Home: Yes Safety Concerns: Feels Safe At This Time Assistive Devices: Hospital Bed, Mechanical Lift, Oxygen - Continuous and Other Assistive Devices Comment: trach/vent/peg tube/ tube feed Review of Systems Review of Systems: Other Patient has ALS and non verbal Physical Exam Physical Exam: General- No in acute distress Head- atraumatic Neck- s/p trach. trach site no erythema or drainage seen. Lungs- clear to auscultation no wheezing or crackles Heart- regular rate and rhythm; no murmur, no gallop. Abdomen- sluggish bowel sounds, soft, G tube site no erythema seen Extremities- no pretibial edema, no erythema seen Neuro- Non verbal Only answers by flicking the eyes.;cannot move extremities Skin- Flushing seen in upper body and upper extremities Results & Data Results & Data Vital Signs (Past 12 Hours) Vital Signs Temp Pulse Pulse Resp BP BP Pulse Ox 03/31/24 00:30 102 H 16 117/84 100 03/31/24 00:30 117/84 03/31/24 00:15 102 H 14 120/88 100 03/31/24 00:00 101 H 14 131/92 03/30/24 23:45 101 H 03/30/24 23:45 101 H 13 130/97 100 03/30/24 23:30 95 H 14 119/88 100 03/30/24 23:28 91 H 20 117/91 100 03/30/24 23:15 92 H 14 117/91 99 03/30/24 23:07 92 H 14 100 03/30/24 23:00 103 H 21 107/84 100 03/30/24 23:00 91 H 20 119/88 99 03/30/24 22:45 96 H 20 104/83 100 03/30/24 22:40 95 H 22 121/85 99 03/30/24 22:15 99 H 19 106/82 98 03/30/24 22:00 96 H 19 105/84 99 03/30/24 21:46 97 H 20 114/82 100 03/30/24 21:45 102 H 21 114/82 98 03/30/24 21:30 115 H 20 111/91 99 03/30/24 21:15 123 H 20 99 03/30/24 21:15 127 H 21 114/86 99 03/30/24 21:02 37.0 C 123 H 20 123/98 100 03/30/24 21:02 99 03/30/24 21:02 03/30/24 21:02 37.0 C 123 H 20 123/98 99 03/30/24 21:00 127 H 21 126/97 99 03/30/24 20:55 124 H 17 123/98 99 03/30/24 20:53 121 H 20 03/30/24 20:53 123 H O2 Del Method O2 Flow Rate FiO2 03/31/24 00:30 Mechanical Vent, Trach Collar 03/31/24 00:30 Mechanical Vent, Trach Collar 03/31/24 00:15 Mechanical Vent, Trach Collar 03/31/24 00:00 Mechanical Vent, Trach Collar 03/30/24 23:45 03/30/24 23:45 Mechanical Vent, Trach Collar 03/30/24 23:30 Mechanical Vent, Trach Collar 03/30/24 23:28 Mechanical Vent, Trach Collar 03/30/24 23:15 Mechanical Vent, Trach Collar 03/30/24 23:07 30 03/30/24 23:00 Mechanical Vent, Trach Collar 03/30/24 23:00 Mechanical Vent, Trach Collar 03/30/24 22:45 Mechanical Vent, Trach Collar 03/30/24 22:40 Mechanical Vent, Trach Collar 03/30/24 22:15 Mechanical Vent, Trach Collar 03/30/24 22:00 Mechanical Vent, Trach Collar 03/30/24 21:46 Mechanical Vent, Trach Collar 03/30/24 21:45 Mechanical Vent, Trach Collar 03/30/24 21:30 Mechanical Vent, Trach Collar 03/30/24 21:15 Mechanical Vent, Trach Collar 03/30/24 21:15 Mechanical Vent, Trach Collar 03/30/24 21:02 Mechanical Vent, Trach Collar 03/30/24 21:02 Mechanical Vent, Trach Collar 3 03/30/24 21:02 Mechanical Vent, Trach Collar 03/30/24 21:02 Mechanical Vent, Trach Collar 3 03/30/24 21:00 Mechanical Vent, Trach Collar 03/30/24 20:55 Mechanical Vent, Trach Collar 03/30/24 20:53 03/30/24 20:53 Diagnostic Findings Laboratory Results WBC 23.48 K/ul (4.8-10.8) H 03/30/24 21:10 RBC 6.36 M/uL (4.70-6.10) H 03/30/24 21:10 Hgb 17.9 g/dl (14.0-18.0) 03/30/24 21:10 Hct 57.1 % (42.0-52.0) H 03/30/24 21:10 MCV 89.8 fL (80.0-100.0) 03/30/24 21:10 MCH 28.1 pg (25.0-34.0) 03/30/24 21:10 MCHC 31.3 g/dL (32.0-36.0) L 03/30/24 21:10 RDW Std Deviation 57.7 fL (36.4-46.3) H 03/30/24 21:10 RDW Coeff of Aissatou 19.0 % (11.5-14.5) H 03/30/24 21:10 Plt Count 418 K/uL (130-400) H 03/30/24 21:10 MPV 10.0 fL (9.4-12.4) 03/30/24 21:10 Immature Gran % (Auto) 0.7 % 03/30/24 21:10 Neut % (Auto) 83.8 % 03/30/24 21:10 Lymph % (Auto) 7.2 % 03/30/24 21:10 [place] % (Auto) 7.9 % 03/30/24 21:10 Eos % (Auto) 0.1 % 03/30/24 21:10 Baso % (Auto) 0.3 % 03/30/24 21:10 Neut # (Auto) 19.68 K/uL (1.40-6.50) H 03/30/24 21:10 Lymph # (Auto) 1.69 K/uL (1.20-3.40) 03/30/24 21:10 [place] # (Auto) 1.86 K/uL (0.11-0.59) H 03/30/24 21:10 Eos # (Auto) 0.02 K/uL (0.00-0.50) 03/30/24 21:10 Baso # (Auto) 0.07 K/uL (0.00-0.20) 03/30/24 21:10 Immature Gran # (Auto) 0.16 K/uL (0.01-0.20) 03/30/24 21:10 PT 10.9 Seconds (9.0-12.0) 03/30/24 21:10 INR 1.0 (0.9-1.1) 03/30/24 21:10 APTT 26 Seconds (21-31) 03/30/24 21:10 PTT Ratio 1.0 03/30/24 21:10 ABG pH 7.36 (7.35-7.45) 03/30/24 23:16 ABG pCO2 24 mmHg (35-46) L 03/30/24 23:16 ABG pO2 133 mmHg (80-95) H 03/30/24 23:16 ABG HCO3 14 mmol/L (19-24) L 03/30/24 23:16 ABG O2 Saturation 99.8 % (90-95) H 03/30/24 23:16 ABG Base Excess -9.9 mEq/L (-9-1.8) L 03/30/24 23:16 Praveen Test Pos (Pos) 03/30/24 23:16 VBG pH 7.29 (7.36-7.41) L 03/31/24 02:05 VBG pCO2 25 mmHg (38-50) L 03/30/24 21:25 VBG pO2 81 mmHg 03/30/24 21:25 VBG HCO3 15 mmol/L 03/30/24 21:25 VBG O2 Saturation 98.2 % 03/30/24 21:25 VBG Base Excess -8.1 mEq/L 03/30/24 21:25 Oxygen Given 3L 03/30/24 23:16 Sodium 160 mmol/L (136-145) H* 03/31/24 02:05 Potassium 3.5 mmol/L (3.5-5.1) 03/31/24 02:05 Chloride 131 mmol/L (98-107) H 03/31/24 02:05 Carbon Dioxide 18 mmol/L (21-32) L 03/31/24 02:05 Anion Gap 11 (3-11) 03/31/24 02:05 BUN 27 mg/dl (6-23) H 03/31/24 02:05 Creatinine 0.31 mg/dl (0.6-1.4) L 03/31/24 02:05 Est Cr Clr Drug Dosing 361.6 ml/min 03/31/24 02:05 Est GFR ( Amer) > 150.0 ml/min 03/31/24 02:05 Est GFR (Non-Af Amer) > 150.0 ml/min 03/31/24 02:05 BUN/Creatinine Ratio 87.1 (10-20) H 03/31/24 02:05 Glucose 425 mg/dl (70-99(Fasting)) H* 03/31/24 02:05 POC Glucose 310 mg/dl (70-99) H* 03/31/24 03:57 Osmolality 364 mOsm/kg (280-300) H* 03/31/24 02:05 Lactate 5.5 mmol/L (0.4-2.0) H* 03/31/24 03:32 Calcium 8.5 mg/dl (8.6-10.3) L 03/31/24 02:05 Phosphorus 2.2 mg/dl (2.5-4.9) L D 03/31/24 02:05 Magnesium 3.0 mg/dl (1.7-2.4) H 03/30/24 21:10 Total Bilirubin 0.7 mg/dl (0.2-1.0) 03/30/24 23:00 Direct Bilirubin 0.1 mg/dl (0-0.2) 03/30/24 21:10 AST 75 U/L (13-39) H 03/30/24 23:00 ALT 180 U/L (7-52) H 03/30/24 23:00 Alkaline Phosphatase 132 U/L (34-104) H 03/30/24 23:00 Troponin I High Sens 14.2 pg/ml (0-20) 03/30/24 21:10 C-Reactive Protein 2.89 mg/dl (0-0.5) H 03/30/24 21:10 Total Protein 8.3 gm/dl (6.0-8.3) 03/30/24 23:00 Albumin 4.5 gm/dl (3.4-5.0) 03/30/24 23:00 Globulin 3.8 gm/dl (2.5-4.0) 03/30/24 23:00 Albumin/Globulin Ratio 1.2 (0.9-2) 03/30/24 23:00 Procalcitonin 0.67 ng/ml (0-0.5) H 03/30/24 21:10 Urine Color Yellow 03/31/24 00:30 Urine Appearance Clear (Clear) 03/31/24 00:30 Urine pH 5.0 (4.5-7.5) 03/31/24 00:30 Ur Specific [place] 1.044 (1.000-1.030) H 03/31/24 00:30 Urine Protein 1+ (Negative) H 03/31/24 00:30 Urine Glucose (UA) 3+ (Negative) H 03/31/24 00:30 Urine Ketones 1+ (Negative) H 03/31/24 00:30 Urine Blood Negative (Negative) 03/31/24 00:30 Urine Nitrite Positive (Negative) A 03/31/24 00:30 Urine Bilirubin Negative (Negative) 05/29/24 00:30 Urine Urobilinogen Negative (Negative) 03/31/24 00:30 Ur Leukocyte Esterase Negative (Negative) 03/31/24 00:30 Urine WBC (Auto) 11-20 /hpf (0-5) H 03/31/24 00:30 Urine RBC (Auto) 0-2 /hpf (0-2) 03/31/24 00:30 U Hyaline Cast (Auto) 0-2 /lpf (0-2) 03/31/24 00:30 U Epithel Cells (Auto) 0-2 /hpf (0-2) 03/31/24 00:30 Urine Bacteria (Auto) 4+ (None Seen) H 03/31/24 00:30 Urine Osmolality 656 mOsm/kg (500-800) 03/31/24 00:38 Ur Random Sodium 34 mmol/L 03/31/24 00:38 Nasal Screen MRSA (PCR) Negative (Negative) 03/31/24 02:15 Acetaminophen < 3 ug/ml (10-30) L 03/31/24 02:05 Impressions Abdomen/Pelvis CT 03/30/24 21:01 Exam(s): CT ABDOMEN + PELVIS With Contrast IV Amt: 117 ml opti 320 EXAM: CT Abdomen and Pelvis With Intravenous Contrast CLINICAL HISTORY: Reason for exam: pain. TECHNIQUE: Axial computed tomography images of the abdomen and pelvis with intravenous contrast. CTDI is 22.65 mGy and DLP is 703.02 mGy-cm. Automated exposure control was utilized for the study. A dose lowering technique was utilized adhering to the principles of ALARA. CONTRAST: Patient received 117 ml opti 320 of IV contrast COMPARISON: No relevant prior studies available. FINDINGS: Lung bases: Unremarkable. No mass. No consolidation. ABDOMEN: Liver: Hepatic steatosis. Gallbladder and bile ducts: Unremarkable. No calcified stones. No ductal dilation. Pancreas: Unremarkable. No mass. No ductal dilation. Spleen: Unremarkable. No splenomegaly. Adrenals: Unremarkable. No mass. Kidneys and ureters: Unremarkable. No solid mass. No hydronephrosis. Stomach and bowel: Unremarkable. No obstruction. No mucosal thickening. PELVIS: Appendix: No findings to suggest acute appendicitis. Bladder: Unremarkable. No mass. Reproductive: Unremarkable as visualized. ABDOMEN and PELVIS: Intraperitoneal space: Unremarkable. No free air. No significant fluid collection. Bones/joints: No acute fracture. No dislocation. Soft tissues: Unremarkable. Vasculature: Unremarkable. No abdominal aortic aneurysm. Lymph nodes: Unremarkable. No enlarged lymph nodes. Tubes, lines and devices: PEG tube in the stomach, with catheter that terminates in the jejunum. IMPRESSION: No acute findings in the abdomen or pelvis. Electronically signed by: Ga Buck MD 03/30/24 23:28 PM Chest CTA 03/30/24 21:01 Exam(s): CTA CHEST IV Amt: 117 ml opti 320 EXAM: CT Angiography Chest With Intravenous Contrast CLINICAL HISTORY: Reason for exam: PE. TECHNIQUE: Axial computed tomographic angiography images of the chest with intravenous contrast. CTDI is 22.65 mGy and DLP is 703.02 mGy-cm. Automated exposure control was utilized for the study. A dose lowering technique was utilized adhering to the principles of ALARA. MIP reconstructed images were created and reviewed. COMPARISON: No relevant prior studies available. FINDINGS: Pulmonary arteries: Unremarkable. No acute pulmonary embolism. Aorta: No acute findings. No thoracic aortic aneurysm. Lungs: Dependent atelectasis. No pleural effusion or pneumothorax. No mass. Pleural space: See above. Heart: Cardiomegaly. No significant pericardial effusion. No evidence of RV dysfunction. Bones/joints: No acute fracture. No dislocation. Soft tissues: Unremarkable. Lymph nodes: Unremarkable. No enlarged lymph nodes. Liver: Hepatic steatosis. IMPRESSION: 1. Dependent atelectasis. No pleural effusion or pneumothorax. 2. No acute pulmonary embolism. Electronically signed by: Ga Buck MD 03/30/24 23:33 PM Code Status & VTE Plan VTE Prophylaxis Plan VTE Prophylaxis will be ordered: Yes
[2024-03-31] MEDS: LACTATED RINGER'S 1,000 ML IV SCH (03:09)
[2024-03-31] MEDS: TUBE FEEDING WATER FLUSH GT SCH ×2 (03:21→12:43)
[2024-03-31] MEDS: POTASSIUM CHLORIDE 20 MEQ/15 ML UDC PO STA (03:21)
[2024-03-31] MEDS: POTASSIUM CHLORIDE / WTR 10 MEQ/100 ML PLCT IV SCH (03:21)
[2024-03-31] MEDS: SODIUM CHLORIDE 0.45 % 1,000 ML IV SCH (03:40)
[2024-03-31 04:05] LABS: Magnesium 2.3 mg/dl (1.7-2.4)
[2024-03-31 04:43] LABS: iSTAT Allen Test Pass; iSTAT Art Bld Gas pCO2 Correct 21 mmHg (35-46); iSTAT Art Bld Gas pH Corrected 7.419 (7.35-7.45); iSTAT Arterial Blood Gas HCO3 14 meg/L (19-24); iSTAT Arterial Blood Gas pCO2 21 mmHg (35-46); iSTAT Arterial Blood Gas pH 7.42 (7.35-7.45); iSTAT Arterial Blood Gas pO2 153 mmHg (80-95); iSTAT Arterial Blood Gas pO2 C 151; iSTAT Carbon Dioxide 14 mmol/L (24-31); iSTAT FiO2 30 %; iSTAT Hematocrit 41 % (42-52); iSTAT Hemoglobin 13.9 g/dl (14.0-18.0); iSTAT Potassium 6.3 mmol/L (3.3-5.0); iSTAT Site L Radial; iSTAT Sodium 156 mmol/L (135-144)
[2024-03-31 05:02] LABS: Albumin Level 3.8 gm/dl (3.4-5.0); Bilirubin Direct 0.2 mg/dl (0-0.2); Bilirubin,Total 0.5 mg/dl (0.2-1.0); Total Protein 6.6 gm/dl (6.0-8.3)
[2024-03-31] MEDS: HEPARIN SOD 5,000 UNIT/0.5 ML VIAL SQ SCH (05:09)
[2024-03-31] MEDS: PIPERACILLIN/TAZOBACTAM 4.5 GM in DEXTROSE 5% MINI-B 100 ML IV SCH (05:09)
[2024-03-31 06:56] LABS: Anion Gap 11 (3-11); BUN Creatinine Ratio 109.5 (10-20); Blood Urea Nitrogen 23 mg/dl (6-23); Calcium 8.5 mg/dl (8.6-10.3); Carbon Dioxide 17 mmol/L (21-32); Chloride 126 mmol/L (98-107); Creatinine Clr Calc Pharmacy 477.4 ml/min; Est GFR (African American) > 150.0 ml/min; Est GFR (Non-African American) > 150.0 ml/min; Glucose 348 mg/dl (70-99(Fasting)); Phosphorus 1.9 mg/dl (2.5-4.9); Sodium 154 mmol/L (136-145)
[2024-03-31 07:00] LABS: Potassium 5.1 mmol/L (3.5-5.1)
[2024-03-31 07:20] LABS: Estimated Average Glucose 171 mg/dl; Hemoglobin A1C 7.6 % (4.5-5.6)
--- NOTE | 2024-03-31 07:28 | XRay Report ---
XR chest 1V portable CLINICAL HISTORY: Sepsis. COMPARISON STUDY: Chest CT August 11, 2022. Chest radiograph April 23, 2023. FINDINGS: Tracheostomy tube is in place. Linear bibasilar densities favor atelectasis. There is no co nsolidation. No pneumothorax or pleural effusion is present. Pulmonary vascularity is normal. Cardiom ediastinal silhouette is normal. IMPRESSION: No acute cardiopulmonary findings. ACT 112: Negative or not required by law. Electronically signed by: Karl Jacinto M.D. 03/31/2024 7:27 AM
[2024-03-31] MEDS ORDERED: ICU Protocol for HYPERglycemia SCH (07:30)
--- NOTE | 2024-03-31 08:04 | Electrocardiogram Report ---
Test Reason : Blood Pressure : / mmHG Vent. Rate : 121 BPM Atrial Rate : 121 BPM P-R Int : 120 ms QRS Dur : 084 ms QT Int : 336 ms P-R-T Axes : 048 012 088 degrees QTc Int : 477 ms Sinus tachycardia Incomplete right bundle branch block Anterior ST elevation, most consistent with repolarization variant Abnormal ECG When compared with ECG of 23-APR-2023 00:33, ST elevation in Anterior leads more pronounced Confirmed by Dilip Glaser ([id number]) on 03/31/2024 8:04:10 AM Referred By: Mikala Cyr Confirmed By:Dilip Glaser
[2024-03-31] MEDS: INSULIN ASPART PER UNIT CHARGE SC SCH (08:50)
[2024-03-31] MEDS: CICLOPIROX~ORDER AWAITING ACTION SCH (08:51)
[2024-03-31] MEDS ORDERED: LACTOBACILLUS ACIDOPHILUS feeding tube SCH (09:00)
[2024-03-31] MEDS: VANCOMYCIN HCL 1,250 MG in SODIUM CHLORIDE 0.9% 250 ML IV SCH (09:14)
[2024-03-31] MEDS: MIDODRINE HCL 2.5 MG TAB PO SCH (10:05)
[2024-03-31] MEDS: SENNOSIDES 8.8 MG/5 ML UDC PEG SCH (10:05)
[2024-03-31] MEDS: FAMOTIDINE SUSP 20 MG/2.5 ML UDP NG SCH (10:07)
[2024-03-31] MEDS: NYSTATIN POWDER 15GM BTL EXT SCH (10:08)
[2024-03-31] MEDS: PENDING D5 1/2NS+20mEq KCL IVF SCH (10:08)
[2024-03-31 11:02] LABS: Anion Gap 10 (3-11); Blood Urea Nitrogen 20 mg/dl (6-23); Calcium 8.2 mg/dl (8.6-10.3); Carbon Dioxide 16 mmol/L (21-32); Chloride 124 mmol/L (98-107); Creatinine Clr Calc Pharmacy 501.3 ml/min; Est GFR (African American) > 150.0 ml/min; Est GFR (Non-African American) > 150.0 ml/min; Glucose 297 mg/dl (70-99(Fasting)); Phosphorus 1.6 mg/dl (2.5-4.9); Sodium 150 mmol/L (136-145)
--- NOTE | 2024-03-31 12:26 | Pharmacy Report ---
Pharmacy PK ABX Note - Date of Service March 31, 2024 - Assessment and Plan Assessment * 38 year old M receiving VANCOMYCIN + ZOSYN as empiric treatment of sepsis - possibly from urinary source. THERAPY HAS BEEN ORDERED FOR 48 HRS ONLY. * Patient was admitted yesterday with HHS/DKA, hypovolemia, and sepsis. Of note, patient does have a h/o ALS and is vent dependent and also requires straight cath at home. * Pertinent microbiologic data includes: negative MRSA Nasal Swab, urine culture pending, BLCXs pending. Of note, in prior sputum cx's MSSA, serratia marcescens and klebsiella pn have growin. As far as past urine cx's at one time > 1 yr ago enterococcus faecium did grow that was resistant to most abx in panel (but was still sens vanco) * Day # 1 of antimicrobial therapy. Plan Vancomycin * Loading dose: 1750 mg IV x 1 * Maintenance dose: 1250 mg IV every 8 hours * Regimen is predicted to achieve target AUC/ED of 400-600 mg/L.hr * Trough level ordered for: 04/01/24 prior to 4th maint dose Pharmacy will continue to follow and will adjust dose/frequency as necessary. Thank you. Pharmacy has transitioned to AUC monitoring for vancomycin. AUC/ED is the preferred PK/PD target and is associated with decreased risk of nephrotoxicity compared to traditional trough targets.
[2024-03-31] MEDS: D5W AND 1/2NSS 1,000 ML IV SCH (12:41)
--- OUTSIDE RECORDS SUMMARY | 2024-03-31 13:46 | External Medical Summary | Summary of Care ---
Author Name Unknown Organization [facility] Address [address] [place] [address] Phone [phone] Care Team Providers Care Vice President Pharmacy Name Role Phone Lilly Karen CHRISTY Primary Care Provider +1- [phone] Encounter Details Date Type Department Care Team (Late st Contact Info) Description 03/04/2024 Telephone Otolaryngology/Head & Neck/Facial Plastic Surgery [address], [place] [phone] Rony Díaz MD [address], [place] [id number] Allergies Active Allergy Reactions Criticality Noted Date Comments Hydromorphone 10/21/2023 Urine retention Oxycodone 01/29/2022 Other Reaction(s): Hallucinations documented as of this encounter (statuses as of 03/04/2024) Medications Medication Sig Dispensed Refills Start Date End Date Status Ipratropium [place] (ATROVENT) 0.03 % nasal spray Use 2 squirts each nostril 2-3 times a day for nasal mucous production, post nasal drip 30 mL 11 11/21/2017 Active traMADol HCl 50 MG Oral Tablet Administer 1 Tablet into J tube every 6 hours as needed for Pain. 0 Active Ibuprofen 100 MG/5ML Oral Suspension (Motrin) Administer 20 mL into J tube every 6 hours as needed for Pain, Moderate. 0 Active Acetaminophen 160 MG/5ML Oral Liquid Administer 20 mL into J tube every 6 hours as needed for Pain, Moderate. 0 Active Famotidine 40 MG/5ML Oral Suspension Reconstituted (Pepcid) Administer 2.5 mL into J tube 2 times a day as needed for Indigestion. 0 Active Senna 176 MG/5ML Oral Syrup Administer into J tube 15 mL 2 times a day as needed for Constipation. 0 Active guaiFENesin 100 MG/5ML Oral Liquid (Robitussin) Administer 10 mL into J tube 2 times a day as needed for Cough. 0 Active Sensitive Eyes Saline Solution Instill into both eyes 1 Drop as needed for Dry eyes. 0 Active Melatonin 3 MG Oral Tablet Administer 1-2 Tablets into J tube at bedtime as needed for Sleep. 0 Active Nystatin 327173 UNIT/GM External Powder (Nystop) Apply topically to affected area daily as needed (Rash). Apply to buttocks/groin area. 0 Active Polyethylene Glycol 3350 17 GM/SCOOP Oral Powder Administer 17 g via J-Tube daily as needed for constipation. (Dissolve in 8 oz of liquid). 0 Active Zinc Oxide 20 % External Ointment Apply topically to affected area 3 times a day . Apply to buttocks for bed sores. 0 Active [employer] Custom Standard 1.4 Enteral Liquid 100 mL by Enteral route 5 times a day. 100 ml Bolus feedings 5 times per day 0 Active Carboxymethylcellulos e Sodium 1 % Ophthalmic Solution (Celluvisc) daily as needed. Use as directed. 0 06/10/2022 Active Petrolatum White Gel 2 times a day as needed for Other. Use as directed 0 04/23/2023 Active Probiotic (Lactobacillus) Oral Capsule Administer 2 Capsules into J tube daily. 0 04/23/2023 Active Atropine Sulfate 0.01 % Ophthalmic Solution Place 1 Drop under the tongue 4 times a day as needed. 0 05/07/2022 Active Midodrine HCl 5 MG Oral Tablet (Proamatine) Take 1 Tablet by mouth in the morning and 1 Tablet at noon and 1 Tablet before bedtime. 0 06/10/2023 Active Bisacodyl 10 MG Rectal Suppository (Dulcolax) Administer 1 Suppository into the rectum as needed. 0 10/17/2023 Active Acidophilus 0.5 MG Oral Tablet Take by mouth. 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 Other acute pancreatitis with infected necrosis 06/17/2022 Chronic respiratory failure requiring continuous mechanical ventilation through tracheostomy 05/08/2022 Pancreatic pseudocyst 05/08/2022 Fever 05/08/2022 Rhinitis, nonallergic 11/21/2017 Keratosis pilaris 11/21/2017 Impaired mobility and ADLs 02/15/2015 ALS (amyotrophic lateral sclerosis) 05/04/2014 documented as of this encounter (statuses as of 03/04/2024) Resolved Problems Problem Noted Date Diagnosed Date Resolved Date Septic shock 05/27/2022 05/28/2022 HENRI (acute kidney injury) 05/27/2022 documented as of this encounter (statuses as of 03/04/2024) Immunizations Name Administration Dates Next Due Seasonal Influenza, Split, IIV3, With Preserve, Inj 08/19/2014 TDAP (age 10 and older)(Boostrix) 05/19/2014 documented as of this encounter Social History Tobacco Use Types Packs/Day Years Used Date Smoking Tobacco: Never Smokeless Tobacco: Never Alcohol Use Standard Drinks/Week Comments No 0 (1 standard drink = 0.6 oz pur e alcohol) Sex and Gender Information Value Date Recorded Sex Assigned at Not on file Gender Identity Not on file Sexual Orientation Not on file Job Start Date Occupation Industry Not on file Not on file Not on file documented as of this encounter Functional Status Functional Status Response Date of Assess ment Do you have serious difficul ty walking or climbing stairs? (5 years old or older) Yes 05/13/2022 documented as of this encounter Miscellaneous Notes * Telephone Encounter - Melanie Kulkarni LPN - 03/04/2024 8:52 AM EDT Called to make pt aware of appt 03/09, left message on self identified voicemail. documented in this encounter Plan of Treatment Upcoming Encounters Date Type Department Care Team (Late st Contact Info) Description 03/09/2024 1:15 PM EDT Office Visit Otolaryngology/Head & Neck/Facial Plastic Surgery [address] [place] [address] Rony Díaz MD [address] [place] [address] 06/22/2024 11:00 AM EDT Appointment Interventional Radiology [facility] [place], [address] [place] [address] Health Maintenance Due Date Last Done Comments HIV Screening 2002 Hepatitis C Screening 2005 GARDASIL-HPV IMMUNIZATION SERIES (2 - Male 3-dose series) 06/09/2012 05/12/2012 Depression Screening 02/17/2015 02/17/2014 COVID-19 Vaccine ( season) 2023 DTaP,Tdap,and Td Vaccines (3 - Td or Tdap) 05/19/2024 05/19/2014, 05/28/1993 Influenza Vaccine (FLU shot) (Season Ended) 2024 07/12/2019, 07/24/2018, 08/03/2017, Additional history exists MENINGOCOCCAL (MENACTRA/MENVEO) Aged Out 06/17/2007 No longer eligible based on patient's age to complete this topic Hepatitis B Completed 02/29/2008, 07/05, 06/17/2007 Pneumococcal Vaccine: Pediatrics (0 to 5 Years) and At-Risk Patients (6 to 64 Years) Aged Out 09/21/2018, 08/21/2017 No longer eligibl e based on patient's age to complete this topic documented as of this encounter Medical Devices Implanted Type Area Provider Contracting Consultant Device Identifier Shelf Expiration Date Model / Serial / Lot Coil Emboli Lyn [id number] - [id number] Implanted:Qty: 1 on 05/11/2022 at [facility] [id number] 03/01/2027 [id number] / / [id number] Coil Emboli Lyn [id number] - [id number] Implanted:Qty: 1 on 05/11/2022 at [facility] [id number] 03/01/2027 [id number] / / [id number] Device Vasc Clos Mynx 5fr - [id number] Implanted:Qty: 1 on 05/11/2022 at [facility] [id number] 03/02/2024 [id number] / / [id number] documented as of this encounter Advance Directives Latest Code Status on File Code Status Date Activated Date Inactivated Comments Full Code 06/16/2022 6:14 PM 06/21/2022 3:57 PM Question Answer Comments Discussion of Advance Direct boogie occurred with: Not Discussed Does the patient have a Living Will? No Does the patient have Health Care Power of Vamp Throater? No Code Status History Code Status Date Activated Date Inactivated Comments Full Code 05/08/2022 4:43 AM 05/28/2022 9:35 PM This o rder reflects the patients wishes and were consensually agreed upon. Question Answer Comments Discussion of Advance Directives occurred with: Not Discussed Care Teams Vice President Pharmacy Relationship Specialty Start Date End Date Karen Carr CRNP [address] [place] [address] PCP - General Nurse Practitioner 04/03/21 documented as of this encounter
--- OUTSIDE RECORDS SUMMARY | 2024-03-31 13:46 | External Medical Summary | Summary of Care ---
Author Name Unknown Organization [facility] Address [address] [place] [address] Phone [phone] Care Team Providers Care Remedial Reading Teacher Name Role Phone Lilly Karen CHRISTY Primary Care Provider +1- [phone] Encounter Details Date Type Department Care Team (Late st Contact Info) Description 03/03/2024 Telephone Otolaryngology/Head & Neck/Facial Plastic Surgery [address] [place], [place] [phone] Rony Díaz MD [address], [place] [phone] Allergies Active Allergy Reactions Criticality Noted Date Comments Hydromorphone 10/21/2023 Urine retention Oxycodone 01/29/2022 Other Reaction(s): Hallucinations documented as of this encounter (statuses as of 03/03/2024) Medications Medication Sig Dispensed Refills Start Date End Date Status Ipratropium [place] (ATROVENT) 0.03 % nasal spray Use 2 [...] as needed for Sleep. 0 Active Nystatin 322340 UNIT/GM External Powder (Nystop) Apply topically to [...] to buttocks for bed sores. 0 Active Viva[employer]Cell Standard 1.4 Enteral Liquid 100 mL by [...] as of this encounter (statuses as of 03/03/2024) Active Problems Problem Noted Date Diagnosed Date [...] as of this encounter (statuses as of 03/03/2024) Resolved Problems Problem Noted Date Diagnosed Date Resolved Date Septic shock 05/27/2022 05/28/2022 HENRI (acute kidney injury) 05/27/2022 documented as of this encounter (statuses as of 03/03/2024) Immunizations Name Administration Dates Next Due Seasonal [...] Telephone Encounter - Melanie Kulkarni LPN - 03/03/2024 11:35 AM EDT This pt was due back in January according to note. Appt was cancelled, it was for a 3 month trach change, can I double book you May 7th ? * Telephone Encounter - Cornelia Kidd OSA - 03/03/2024 11:21 AM EDT [facility] needed [facility]t. Didn't want to reschedule if the dr didn't see a need. The [facility] did call and LOM for his to call back if she needed to be rescheduled Please advise and schedule if needed. Please , kaitlynn at [phone] If any problems with pre authorization [facility] call the [facility] [phone] ext [phone] documented in this encounter Plan of Treatment Upcoming Encounters Date Type Department Care Team (Late st Contact Info) Description 06/22/2024 11:00 AM EDT Appointment [place] [facility] [place] [address] [place] [address] Health Maintenance Due Date Last Done Comments [...] this encounter Medical Devices Implanted Type Area Track Repairer Helper Device Identifier Shelf Expiration Date Model / Serial / Lot Coil Emboli Lyn [id number] - [id number] Implanted:Qty: 1 on 05/11/2022 at [facility] [id number] 03/01/2027 [id number] / / [id number] Coil Emboli Lyn [id number] - [id number] Implanted:Qty: 1 on 05/11/2022 at [facility] [id number] 03/01/2027 [id number] / / [id number] Device Vasc Clos Mynx 5fr - [id number] Implanted:Qty: 1 on 05/11/2022 at [facility] [id number] 03/02/2024 [id number] / / [id number] documented as of this encounter Advance Directives Latest Code Status on File Code Status Date Activated Date Inactivated Comments Full Code 06/16/2022 6:14 PM 06/21/2022 3:57 PM Question Answer Comments Discussion of Advance Direct boogie occurred with: Not Discussed Does the patient have a Living Will? No Does the patient have Health Care Power of Quality Assurance Lead? No Code Status History Code Status Date Activated Date Inactivated Comments Full Code 05/08/2022 4:43 AM 05/28/2022 9:35 PM This o rder reflects the patients wishes and were consensually agreed upon. Question Answer Comments Discussion of Advance Directives occurred with: Not Discussed Care Teams Remedial Reading Teacher Relationship Specialty Start Date End Date Karen Carr CRNP [address] [place] [address] PCP - General Nurse Practitioner 04/03/21 documented as of this encounter
--- OUTSIDE RECORDS SUMMARY | 2024-03-31 13:46 | External Medical Summary | Summary of Care ---
Author Name Unknown Organization [facility] Address [address] [place] [address] Phone [phone] Care Team Providers Care Business Line Manager Name Role Phone Lilly Karen CHRISTY Primary Care Provider +1- [phone] Encounter Details Date Type Department Care Team (Late st Contact Info) Description 03/03/2024 Telephone Otolaryngology/Head & Neck/Facial Plastic Surgery [address], [place] [phone] Rony Díaz MD [address], [place] [phone] Allergies Active Allergy Reactions Criticality Noted Date Comments Hydromorphone 10/21/2023 Urine retention Oxycodone 01/29/2022 Other Reaction(s): Hallucinations documented as of this encounter (statuses as of 03/03/2024) Medications Medication Sig Dispensed Refills Start Date End Date Status Ipratropium [place] (ATROVENT) 0.03 % nasal spray Use 2 [...] as needed for Sleep. 0 Active Nystatin 642586 UNIT/GM External Powder (Nystop) Apply topically to [...] to buttocks for bed sores. 0 Active [employer] Standard 1.4 Enteral Liquid 100 mL by [...] schedule if needed. Please , kaitlynn at [phone] If any problems with pre authorization [facility] call [facility] [phone] ext [phone] documented in this encounter Plan of Treatment Upcoming Encounters Date Type Department Care Team (Late st Contact Info) Description 06/22/2024 11:00 AM EDT Appointment Interventional [place] [facility] [place] [address] [place] [address] Health Maintenance Due Date Last Done Comments [...] this encounter Medical Devices Implanted Type Area Assistant Drafter Device Identifier Shelf Expiration Date Model / Serial / Lot Coil Emboli Lyn [id number] - [id number] Implanted:Qty: 1 on 05/11/2022 at [facility] [id number] 03/01/2027 [id number] / / [id number] Coil Emboli Lyn [id number] - [id number] Implanted:Qty: 1 on 05/11/2022 at [facility] [id number] 03/01/2027 [id number] / / [id number] Device Vasc Clos Mynx 5fr - [id number] Implanted:Qty: 1 on 05/11/2022 at [facility] [id number] 03/02/2024 [id number] / / [id number] documented as of this encounter Advance Directives Latest Code Status on File Code Status Date Activated Date Inactivated Comments Full Code 06/16/2022 6:14 PM 06/21/2022 3:57 PM Question Answer Comments Discussion of Advance Direct boogie occurred with: Not Discussed Does the patient have a Living Will? No Does the patient have Health Care Power of Director [employer]? No Code Status History Code Status Date Activated Date Inactivated Comments Full Code 05/08/2022 4:43 AM 05/28/2022 9:35 PM This o rder reflects the patients wishes and were consensually agreed upon. Question Answer Comments Discussion of Advance Directives occurred with: Not Discussed Care Teams Business Line Manager Relationship Specialty Start Date End Date Karen Carr CRNP [address] [place] [address] PCP - General Nurse Practitioner 04/03/21 documented as of this encounter
--- OUTSIDE RECORDS SUMMARY | 2024-03-31 13:46 | External Medical Summary | Summary of Care ---
Author Name Unknown Organization [facility] Address [address] [place] [address] Phone [phone] Care Team Providers Care Justice Court Judge Name Role Phone Lilly Karen CHRISTY Primary Care Provider +1- [phone] Reason for Visit * Reason Onset Date Comments Appointment 02/19/2024 Encounter Details Date Type Department Care Team (Late st Contact Info) Description 02/19/2024 Telephone Otolaryngology/Head & Neck/Facial Plastic Surgery [address], [place] [phone] Rony Díaz MD [address] [place], [place] [phone] Appointment Allergies Active Allergy Reactions Criticality Noted Date Comments Hydromorphone 10/21/2023 Urine retention Oxycodone 01/29/2022 Other Reaction(s): Hallucinations documented as of this encounter (statuses as of 03/02/2024) Medications Medication Sig Dispensed Refills Start Date End Date Status Ipratropium Silver (ATROVENT) 0.03 % nasal spray Use 2 [...] as needed for Sleep. 0 Active Nystatin 201320 UNIT/GM External Powder (Nystop) Apply topically to [...] to buttocks for bed sores. 0 Active [employer] Standard 1.4 Enteral Liquid 100 mL by [...] as of this encounter (statuses as of 03/02/2024) Active Problems Problem Noted Date Diagnosed Date [...] as of this encounter (statuses as of 03/02/2024) Resolved Problems Problem Noted Date Diagnosed Date Resolved Date Septic shock 05/27/2022 05/28/2022 HENRI (acute kidney injury) 05/27/2022 documented as of this encounter (statuses as of 03/02/2024) Immunizations Name Administration Dates Next Due Seasonal [...] encounter Miscellaneous Notes * Telephone Encounter - Linda Alonso OSA - 03/02/2024 12:51 PM EDT called in and would like an update on this please reach out to her Thank you ENT,Audiology,Urology Scheduling Please do not respond to me use pool ENT and Audio: is P [id number] Urology: P [id number] * Telephone Encounter - Karey Gaines OSA - 02/19/2024 9:03 AM EDT Please call the pt for a 3 mth trach change. He was due in January and had to cancel. Thank you Karey documented in this encounter Plan of Treatment Upcoming Encounters Date Type Department Care Team (Late st Contact Info) Description 06/22/2024 11:00 AM EDT Appointment Inter[place] [facility] [place] [address] [place] [address] Health Maintenance Due Date Last Done Comments [...] this encounter Medical Devices Implanted Type Area Automotive Generator Repairer Device Identifier Shelf Expiration Date Model / Serial / Lot Coil Emboli Lyn [id number] - [id number] Implanted:Qty: 1 on 05/11/2022 at [facility] [id number] 03/01/2027 [id number] / / [id number] Coil Emboli Lyn [id number] - [id number] Implanted:Qty: 1 on 05/11/2022 at [facility] [id number] 03/01/2027 [id number] / / [id number] Device Vasc Clos Mynx 5fr - [id number] Implanted:Qty: 1 on 05/11/2022 at [facility] [id number] 03/02/2024 [id number] / / [id number] documented as of this encounter Advance Directives Latest Code Status on File Code Status Date Activated Date Inactivated Comments Full Code 06/16/2022 6:14 PM 06/21/2022 3:57 PM Question Answer Comments Discussion of Advance Direct boogie occurred with: Not Discussed Does the patient have a Living Will? No Does the patient have Health Care Power of Occ Ther? No Code Status History Code Status Date Activated Date Inactivated Comments Full Code 05/08/2022 4:43 AM 05/28/2022 9:35 PM This o rder reflects the patients wishes and were consensually agreed upon. Question Answer Comments Discussion of Advance Directives occurred with: Not Discussed Care Teams Justice Court Judge Relationship Specialty Start Date End Date Karen Carr CRNP [address] [place] [address] PCP - General Nurse Practitioner 04/03/21 documented as of this encounter
--- OUTSIDE RECORDS SUMMARY | 2024-03-31 13:46 | External Medical Summary | Summary of Care ---
Author Name Unknown Organization [facility] Address [address] [place] [address] Phone [phone] Care Team Providers Care Glass Fitter Name Role Phone Lilly Karen CHRISTY Primary Care Provider +1- [phone] Reason for Visit * Reason Comments Follow Up Trach change Encounter Details Date Type Department Care Team (Late st Contact Info) Description 03/09/2024 1:15 PM EDT Office Visit Otolaryngology/Head & Neck/Facial Plastic Surgery [address] [place] [address] Rony Díaz MD [address] [place] [address] Attention to tracheostomy (HCC)* Allergies Active Allergy Reactions Criticality Noted Date Comments Hydromorphone 10/21/2023 Urine retention Oxycodone 01/29/2022 Other Reaction(s): Hallucinations documented as of this encounter (statuses as of 03/10/2024) Medications Medication Sig Dispensed Refills Start Date End Date Status Ipratropium [place] (ATROVENT) 0.03 % nasal spray Use 2 squirts each nostril 2-3 times a day for nasal mucous production, post nasal drip 30 mL 11 11/21/2017 Active Additional Information Patient not taking.Informant: Spouse, Reported on 03/09/2024 traMADol HCl 50 MG Oral Tablet Administer [...] as needed for Sleep. 0 Active Nystatin 780797 UNIT/GM External Powder (Nystop) Apply topically to [...] to buttocks for bed sores. 0 Active [employer] Standard 1.4 Enteral Liquid 100 mL by [...] as of this encounter (statuses as of 03/10/2024) Active Problems Problem Noted Date Diagnosed Date [...] as of this encounter (statuses as of 03/10/2024) Resolved Problems Problem Noted Date Diagnosed Date Resolved Date Septic shock 05/27/2022 05/28/2022 HENRI (acute kidney injury) 05/27/2022 documented as of this encounter (statuses as of 03/10/2024) Immunizations Name Administration Dates Next Due Seasonal Influenza, Split, IIV3, With Preserve, Inj 08/19/2014 TDAP (age 10 and older)(Boostrix) 05/19/2014 documented as of this encounter Social History Tobacco Use Types Packs/Day Years Used Date Smoking Tobacco: Never Smokeless Tobacco: Never Tobacco Cessation:Counseling Given: Not Answered Alcohol Use Standard Drinks/Week Comments No 0 (1 standard drink = 0.6 oz pur e alcohol) Sex and Gender Information Value Date Recorded Sex Assigned at Not on file Gender Identity Not on file Sexual Orientation Not on file Job Start Date Occupation Industry Not on file Not on file Not on file documented as of this encounter Last Filed Vital Signs Vital Sign Reading Time Taken Comments Blood Pressure - - Pulse - - Temperature 36.2 C (97.2 F) 03/09/2024 1:08 PM ED T Respiratory Rate - - Oxygen Saturation - - Inhaled Oxygen Concentration - - Weight - - Height - - Body Mass Index - - documented in this encounter Functional Status Functional Status Response Date of Assess ment Do you have serious difficul ty walking or climbing stairs? (5 years old or older) Yes 05/13/2022 documented as of this encounter Progress Notes * Rony Díaz MD - 03/09/2024 1:22 PM EDT 03/09/2024 1:22 PM INTERVAL NOTE - Otolaryngology / H & N Surgery Jose Enrique Doll is a 38 year old year old male (last clinic visit on 10/21/2023 ) who is seen for followup of [from clinic note of 10/21/2023 ] "Special needs patient ALS Quadriplegic Non-verbal but communicates with computer device with his eyes. Trach dependence (Shiley #8 cuffed tube). Changed today by his with instruction and assistance. Continue current trach care. See in 3 months with plans to continue instructing his until she is very comfortable in changing it." There were some other issues that interfered with his 3 months appointment, so they obtained this appointment Has been doing well with routine trach care. No specific problems. Physical Examination: I instructed / assisted pt's in changing his trach tube which she did very nicely with minimalhelp. PROCEDURE: Bronchoscopy Risk Assessment: I have no suspicion for this patient having pulmonary Microbacterium TB or other microorganism spread via airborne dissemination. There is no requirement for negative pressure room, special filters, or respirators. Flexible fiberoptic exam tracheobronchoscopy was performed through the tracheostomy tube and revealed the trach tube to be in good position in the lumen. The trachea to the dannie was clear. IMPRESSION and PLAN: Special needs patient ALS Quadriplegic Non-verbal but communicates with computer device with his eyes. Trach dependence (Shiley #8 cuffed tube). RTC 3 months. Will continue to have change the tube under supervision. Alessia Díaz MD, FACS Otolaryngology - Head & Neck Surgery [facility] [address] [place] [address] PH FAX 03/10/2024 10:41 AM documented in this encounter Plan of Treatment Upcoming Encounters Date Type Department Care Team (Late st Contact Info) Description 06/08/2024 11:00 AM EDT Office Visit Otolaryngology/Head & Neck/Facial Plastic Surgery [address] [place] [address] Rony Díaz MD [address] [place] [address] 06/22/2024 11:00 AM EDT Appointment Interventional Radiology [facility], Nita [address] [place] [address] Health Maintenance Due Date Last [...] this encounter Medical Devices Implanted Type Area Marine Electronics Technician Device Identifier Shelf Expiration Date Model / Serial / Lot Coil Emboli Lyn [id number] - [id number] Implanted:Qty: 1 on 05/11/2022 at [facility] [id number] 03/01/2027 [id number] / / [id number] Coil Emboli Lyn [id number] - [id number] Implanted:Qty: 1 on 05/11/2022 at [facility] [id number] 03/01/2027 [id number] / / [id number] Device Vasc Clos Mynx 5fr - [id number] Implanted:Qty: 1 on 05/11/2022 at [facility] [id number] 03/02/2024 [id number] / / [id number] documented as of this encounter Visit Diagnoses Diagnosis Attention to tracheostomy (HCC)- Primary Attention to tracheostomy documented in this encounter Advance Directives Latest Code Status on File Code Status Date Activated Date Inactivated Comments Full Code 06/16/2022 6:14 PM 06/21/2022 3:57 PM Question Answer Comments Discussion of Advance Direct boogie occurred with: Not Discussed Does the patient have a Living Will? No Does the patient have Health Care Power of Applications System Analyst? No Code Status History Code Status Date Activated Date Inactivated Comments Full Code 05/08/2022 4:43 AM 05/28/2022 9:35 PM This o rder reflects the patients wishes and were consensually agreed upon. Question Answer Comments Discussion of Advance Directives occurred with: Not Discussed Care Teams Glass Fitter Relationship Specialty Start Date End Date Karen Carr CRNP [address] [place] [address] PCP - General Nurse Practitioner 04/03/21 documented as of this encounter
--- OUTSIDE RECORDS SUMMARY | 2024-03-31 13:46 | External Medical Summary | Summary of Care ---
Author Name Unknown Organization [facility] Address [address] [place] [address] Phone [phone] Care Team Providers Care Chess Instructor Name Role Phone Lilly Karen CHRISTY Primary Care Provider +1- [phone] Reason for Visit * Reason Onset Date Comments Trach Change 03/03/2024 Encounter Details Date Type Department Care Team (Late st Contact Info) Description 03/03/2024 Telephone Otolaryngology/Head & Neck/Facial Plastic Surgery [address], [place] [id number] Rony Díaz MD [address] [place], [place] [id number] Trach Change (/) Allergies Active Allergy Reactions Criticality Noted Date Comments Hydromorphone 10/21/2023 Urine retention Oxycodone 01/29/2022 Other Reaction(s): Hallucinations documented as of this encounter (statuses as of 03/03/2024) Medications Medication Sig Dispensed Refills Start Date End Date Status Ipratropium [place] (ATROVENT) 0.03 % nasal spray Use 2 [...] as needed for Sleep. 0 Active Nystatin 602239 UNIT/GM External Powder (Nystop) Apply topically to [...] to buttocks for bed sores. 0 Active [employer] Standard 1.4 Enteral Liquid 100 mL by [...] encounter Miscellaneous Notes * Telephone Encounter - Rony Díaz MD - 03/03/2024 2:57 PM EDT 03/03/2024 2:57 PM Attending Staff Note - Otolaryngology / H&N Surgery I put on for 1:15 PM on March 09. Please inform patient. Levi Díaz MD * Telephone Encounter - Melanie Kulkarni LPN [...] schedule if needed. Please , kaitlynn at [phone] If any problems with pre authorization please call the [facility] [phone] documented in this encounter Plan of Treatment Upcoming Encounters Date Type Department Care Team (Late st Contact Info) Description 03/09/2024 1:15 PM EDT Office Visit Otolaryngology/Head & Neck/Facial Plastic Surgery [address], [place] [phone] Rony Díaz MD [address] [place] [address] 06/22/2024 11:00 AM EDT Appointment Interventional Radiology [facility] [place], [facility] 1st Floor [address] [place] [address] Health Maintenance Due Date Last [...] this encounter Medical Devices Implanted Type Area Ingredient Handler Device Identifier Shelf Expiration Date Model / Serial / Lot Coil Emboli Lyn [id number] - [id number] Implanted:Qty: 1 on 05/11/2022 at [facility] [id number] 03/01/2027 [id number] / / [id number] Coil Emboli Lyn [id number] - [id number] Implanted:Qty: 1 on 05/11/2022 at [facility] [id number] 03/01/2027 [id number] / / [id number] Device Vasc Clos Mynx 5fr - [id number] Implanted:Qty: 1 on 05/11/2022 at [facility] [id number] 03/02/2024 [id number] / / [id number] documented as of this encounter Advance Directives Latest Code Status on File Code Status Date Activated Date Inactivated Comments Full Code 06/16/2022 6:14 PM 06/21/2022 3:57 PM Question Answer Comments Discussion of Advance Direct boogie occurred with: Not Discussed Does the patient have a Living Will? No Does the patient have Health Care Power of Rn Endoscopy? No Code Status History Code Status Date Activated Date Inactivated Comments Full Code 05/08/2022 4:43 AM 05/28/2022 9:35 PM This o rder reflects the patients wishes and were consensually agreed upon. Question Answer Comments Discussion of Advance Directives occurred with: Not Discussed Care Teams Chess Instructor Relationship Specialty Start Date End Date [place], Karen G, STEEL ROLLER [address] [facility], [place] [address] PCP - General Nurse Practitioner 04/03/21 documented as of this encounter
--- OUTSIDE RECORDS SUMMARY | 2024-03-31 13:47 | External Medical Summary | Summary of Care ---
Author Name Unknown Organization [facility] Address [address] [place] [address] Phone [phone] Care Team Providers Care Brood Station Manager Name Role Phone Lilly Karen CHRISTY Primary Care Provider +1- [phone] Reason for Visit * Reason Comments NEW PATIENT Trach pt has a Shile y 8CN85H in place. * Evaluate & Treat - Unlimited Visits (Within 10 days (routine)) - Pending Review Specialty Diagnoses / Procedures Referred By Wade allen Referred To Contact Otolaryngology Diagnoses Other tracheostomy complication (HCC) Alex Colbert, DO [address] [place] [address] Referral ID Status Reason Start Date Expiration Date Visits Requested Visits Authorized [id number] Pending Review Specialty Services Required 07/22/[phone] Encounter Details Date Type Department Care Team (Late st Contact Info) Description 10/21/2023 11:00 AM EST Office Visit Otolaryngology/Head & Neck/Facial Plastic Surgery [address] [place] [address] Rony Díaz MD [address] [place] [address] Attention to tracheostomy (HCC)* Allergies Active Allergy Reactions Criticality Noted Date Comments Hydromorphone 10/21/2023 Urine retention Oxycodone 01/29/2022 Other Reaction(s): Hallucinations documented as of this encounter (statuses as of 10/21/2023) Medications Medication Sig Dispensed Refills Start Date End Date Status Ipratropium [place] (ATROVENT) 0.03 % nasal spray Use 2 [...] as needed for Sleep. 0 Active Nystatin 142007 UNIT/GM External Powder (Nystop) Apply topically to [...] to buttocks for bed sores. 0 Active [employer] Standard 1.4 Enteral Liquid 100 mL by Enteral route 5 times a day. 100 ml Bolus feedings 5 times per day 0 Active Carboxymethylcellul ose Sodium 1 % Ophthalmic Solution (Celluvisc) daily [...] Oral Tablet Take by mouth. 0 Active RILUZOLE 50 MG PO TABS Administer 1 Tablet into J tube in the morning. 1 Tab 0 02/17/2014 3 Discontinue d(Medicatio n List Clean Up) cholecalciferol, VIT D3, (VITAMIN D3) 1000 UNITS Tablet Administer 1 Tablet into J tube in the morning. 0 3 Discontinue d(Medicatio n List Clean Up) Vital 1.5 Cali Oral Liquid Administer into feeding tube 65 mL/hr continuous . (5 cartons daily). 0 3 Discontinue d(Medicatio n List Clean Up) documented as of this encounter (statuses as of 10/21/2023) Active Problems Problem Noted Date Diagnosed Date [...] as of this encounter (statuses as of 10/21/2023) Resolved Problems Problem Noted Date Diagnosed Date Resolved Date Septic shock 05/27/2022 05/28/2022 HENRI (acute kidney injury) 05/27/2022 documented as of this encounter (statuses as of 10/21/2023) Immunizations Name Administration Dates Next Due Seasonal [...] Pressure - - Pulse - - Temperature 36.5 C (97.7 F) 10/21/2023 11:[address] Respiratory Rate - - Oxygen Saturation - [...] Progress Notes * Rony Díaz MD - 10/21/2023 11:18 AM EST 10/21/2023 11:18 AM INTERVAL NOTE - Otolaryngology / H & N Surgery Jose Enrique Doll is a 38 year old year old male (last clinic visit on Visit date not found ) who is seen for followup of Tracheostomy. Pt seen as a consult on 07/22/23 " Jose Enrique Doll is a 38 year old man with ALS who is ventilator dependent. He had a tracheotomy placed December 2021. Follows with [facility] in [place] in the ALS clinic. Last trach change was in September 2022. Family reports that there was granulation tissue around his stoma and bleeding with the trach change. Currently has a cuffed 8 Shiley. Jose Enrique Doll is a 38 year old man with ALS and ventilator dependent respiratory failure who required a tracheostomy tube change due to deflating cuff. New Shiley 8CN85H tracheostomy tube placed without complication. " The patient has been doing well. He has been having his trach tube changed every 3-5 months at the [facility], but is establishing care here. Physical Examination: Neck: Examination of the neck revealed the tracheostoma to be very healthy appearing without granulations. PROCEDURE: Bronchoscopy Risk Assessment: I have no [...] The trachea to the dannie was clear. His accompanied him today and I spent some time teaching her about the various parts of the trach tube, how to hold it, and how to insert it . I supervised / assisted her in changing the trach tube and she did this very well. IMPRESSION and PLAN: Special needs patient ALS Quadriplegic Non-verbal but communicates with computer device with his eyes. Trach dependence (Shiley #8 cuffed tube). Changed today by his with instruction and assistance. Continue current trach care. See in 3 months with plans to continue instructing his until she is very comfortable in changing it. Alessia Díaz MD, FACS Otolaryngology - Head & Neck Surgery [facility] [address] [place] [address] PH FAX 10/21/2023 5:14 PM documented in this encounter Plan of Treatment Upcoming Encounters Date Type Department Care Team (Late st Contact Info) Description 12/23/2023 1:00 PM EST Appointment Interventional Radiology [facility], [facility] [address] [place] [address] 01/20/2024 11:00 AM EDT Office Visit Otolaryngology/Head & Neck/Facial Plastic Surgery [address] [place] [address] Rony Díaz MD [address] [place] [address] Health Maintenance Due Date Last Done Comments COVID-19 Vaccine (#1) 1987 HIV Screening 2002 Hepatitis C Screening 2005 GARDASIL-HPV IMMUNIZATION SERIES (2 - Male 3-dose series) 06/09/2012 05/12/2012 Depression Screening 02/17/2015 02/17/2014 Influenza Vaccine (FLU shot) (#1) 2023 07/12/2019, 07/24/2018, 08/03/2017, Additional history exists DTaP,Tdap,and Td Vaccines (3 - Td or Tdap) 05/19/2024 05/19/2014, 05/28/1993 MENINGOCOCCAL (MENACTRA/MENVEO) Aged Out 06/17/2007 No longer eligible based on patient's age to complete this topic Hepatitis B Completed 02/29/2008, 07/05, 06/17/2007 Pneumococcal Vaccine: Pediatrics (0 to 5 Years) and At-Risk Patients (6 to 64 Years) Aged Out 09/21/2018, 08/21/2017 No longer eligibl e based on patient's age to complete this topic documented as of this encounter Medical Devices Implanted Type Area Petrologist Device Identifier Shelf Expiration Date Model / Serial / Lot Device Vasc Clos Mynx 5fr - [id number] Implanted:Qty: 1 on 05/11/2022 at [facility] [id number] 03/02/2024 [id number] / / [id number] documented as of this encounter Visit Diagnoses [...] the patient have Health Care Power of High Energy Forming Equipment Operator? No Code Status History Code Status Date Activated Date Inactivated Comments Full Code 05/08/2022 4:43 AM 05/28/2022 9:35 PM This o rder reflects the patients wishes and were consensually agreed upon. Question Answer Comments Discussion of Advance Directives occurred with: Not Discussed Care Teams Brood Station Manager Relationship Specialty Start Date End Date Karen Carr CRNP [address] [place] [address] PCP - General Nurse Practitioner 04/03/21 documented as of this encounter
--- OUTSIDE RECORDS SUMMARY | 2024-03-31 13:47 | External Medical Summary | Summary of Care ---
Author Name Unknown Organization [facility] Address [address] [place] [address] Phone [phone] Care Team Providers Care Hat Brim Curler Name Role Phone Lilly Karen CHRISTY Primary Care Provider +1- [phone] Reason for Visit * Reason Onset Date Comments Appointment 02/19/2024 Encounter Details Date Type Department Care Team (Late st Contact Info) Description 02/19/2024 Telephone Otolaryngology/Head & Neck/Facial Plastic Surgery [address] [place], [place] [phone] Rony Díaz MD [address] [place], [place] [phone] Appointment Allergies Active Allergy Reactions Criticality Noted Date Comments Hydromorphone 10/21/2023 Urine retention Oxycodone 01/29/2022 Other Reaction(s): Hallucinations documented as of this encounter (statuses as of 02/19/2024) Medications Medication Sig Dispensed Refills Start Date End Date Status Ipratropium [place] (ATROVENT) 0.03 % nasal spray Use 2 [...] as needed for Sleep. 0 Active Nystatin 564513 UNIT/GM External Powder (Nystop) Apply topically to [...] to buttocks for bed sores. 0 Active [employer] Standard 1.4 Enteral Liquid 100 mL by [...] as of this encounter (statuses as of 02/19/2024) Active Problems Problem Noted Date Diagnosed Date [...] as of this encounter (statuses as of 02/19/2024) Resolved Problems Problem Noted Date Diagnosed Date Resolved Date Septic shock 05/27/2022 05/28/2022 HENRI (acute kidney injury) 05/27/2022 documented as of this encounter (statuses as of 02/19/2024) Immunizations Name Administration Dates Next Due Seasonal [...] encounter Miscellaneous Notes * Telephone Encounter - Karey Gaines OSA - 02/19/2024 9:03 AM EDT Please call the pt for a 3 mth trach change. He was due in January and had to cancel. Thank you Karey documented in this encounter Plan of Treatment Upcoming Encounters Date Type Department Care Team (Late st Contact Info) Description 06/22/2024 11:00 AM EDT Appointment Interventional Radiology [facility], Nita [address] [place] [address] Health Maintenance Due Date Last Done Comments HIV Screening 2002 Hepatitis C Screening 2005 GARDASIL-HPV IMMUNIZATION SERIES (2 - Male 3-dose series) 06/09/2012 05/12/2012 Depression Screening 02/17/2015 02/17/2014 COVID-19 Vaccine ( - 2022- season) 2023 DTaP,Tdap,and Td Vaccines (3 - [...] this encounter Medical Devices Implanted Type Area Water Rights Specialist Device Identifier Shelf Expiration Date Model / Serial / Lot Coil Emboli Lyn [id number] - [id number] Implanted:Qty: 1 on 05/11/2022 at [facility] [id number] 03/01/2027 [id number] / / [id number] Coil Emboli Lyn [id number] - [id number] Implanted:Qty: 1 on 05/11/2022 at [facility] [id number] 03/01/2027 [id number] / / [id number] Device Vasc Clos Mynx 5fr - [id number] Implanted:Qty: 1 on 05/11/2022 at [facility] [id number] 03/02/2024 [id number] / / [id number] documented as of this encounter Advance Directives Latest Code Status on File Code Status Date Activated Date Inactivated Comments Full Code 06/16/2022 6:14 PM 06/21/2022 3:57 PM Question Answer Comments Discussion of Advance Direct boogie occurred with: Not Discussed Does the patient have a Living Will? No Does the patient have Health Care Power of Splitter Tender? No Code Status History Code Status Date Activated Date Inactivated Comments Full Code 05/08/2022 4:43 AM 05/28/2022 9:35 PM This o rder reflects the patients wishes and were consensually agreed upon. Question Answer Comments Discussion of Advance Directives occurred with: Not Discussed Care Teams Hat Brim Curler Relationship Specialty Start Date End Date Karen Carr CRNP [address] [place] [address] PCP - General Nurse Practitioner 04/03/21 documented as of this encounter
--- OUTSIDE RECORDS SUMMARY | 2024-03-31 13:47 | External Medical Summary | Summary of Care ---
Author Name Unknown Organization [facility] Address [address] [place] [address] Phone [phone] Care Team Providers Care Compliance Officer Name Role Phone Lilly Karen CHRISTY Primary Care Provider [phone]- [phone] Reason for Visit * Reason Onset Date Comments Referral 10/20/2023 Encounter Details Date Type Department Care Team (Late st Contact Info) Description 10/20/2023 Telephone Otolaryngology/Head & Neck/Facial Plastic Surgery [address], [place] [id number] Services, Scheduling [address] [place] [address] Referral Allergies Active Allergy Reactions Criticality Noted Date Comments Hydromorphone 10/21/2023 Urine retention Oxycodone 01/29/2022 Other Reaction(s): Hallucinations documented as of this encounter (statuses as of 01/19/2024) Medications Medication Sig Dispensed Refills Start Date End Date Status Ipratropium [place] (ATROVENT) 0.03 % nasal spray Use 2 [...] as needed for Sleep. 0 Active Nystatin 001288 UNIT/GM External Powder (Nystop) Apply topically to [...] to buttocks for bed sores. 0 Active [email or web address] Standard 1.4 Enteral Liquid 100 mL by Enteral route 5 times a day. 100 ml Bolus feedings 5 times per day 0 Active Carboxymethylcellulose Sodium 1 % Ophthalmic Solution (Celluvisc) daily [...] a day as needed. 0 05/07/2022 Active documented as of this encounter (statuses as of 01/19/2024) Active Problems Problem Noted Date Diagnosed Date [...] as of this encounter (statuses as of 01/19/2024) Resolved Problems Problem Noted Date Diagnosed Date Resolved Date Septic shock 05/27/2022 05/28/2022 HENRI (acute kidney injury) 05/27/2022 documented as of this encounter (statuses as of 01/19/2024) Immunizations Name Administration Dates Next Due Seasonal [...] encounter Miscellaneous Notes * Telephone Encounter - Zoraida Henning LPN - 10/20/2023 4:37 PM EST VM left.No referral seen. Last referral 07/2023 * Telephone Encounter - Linda Alonso OSA - 10/20/2023 11:02 AM EST [facility] and would like to know if the referral please reach out to her at [phone] ext [phone] Thank you ENT,Audiology,Urology Scheduling Please do not respond to me use pool ENT and Audio: is P [id number] Urology: P [id number] documented in this encounter Plan of Treatment Upcoming Encounters Date Type Department Care Team (Late st Contact Info) Description 06/22/2024 11:00 AM EDT Appointment Interventional Radiology [facility], [place] [address] [place] [address] Health Maintenance Due Date Last Done Comments HIV Screening 2002 Hepatitis C Screening 2005 GARDASIL-HPV IMMUNIZATION SERIES (2 - Male 3-dose series) 06/09/2012 05/12/2012 Depression Screening 02/17/2015 02/17/2014 COVID-19 Vaccine ( season) 2023 Influenza Vaccine (FLU shot) (#1) 2023 07/12/2019, [...] this encounter Medical Devices Implanted Type Area Cps Team Lead Device Identifier Shelf Expiration Date Model / Serial / Lot Coil Emboli Lyn [id number] - [id number] Implanted:Qty: 1 on 05/11/2022 at [facility] [employer] [id number] 03/01/2027 [id number] / / [id number] Coil Emboli Lyn [id number] - [id number] Implanted:Qty: 1 on 05/11/2022 at [facility] [employer] [id number] 03/01/2027 [id number] / / [id number] Device Vasc Clos Mynx 5fr - [id number] Implanted:Qty: 1 on 05/11/2022 at [facility] [id number] 03/02/2024 [id number] / / [id number] documented as of this encounter Advance Directives Latest Code Status on File Code Status Date Activated Date Inactivated Comments Full Code 06/16/2022 6:14 PM 06/21/2022 3:57 PM Question Answer Comments Discussion of Advance Direct boogie occurred with: Not Discussed Does the patient have a Living Will? No Does the patient have Health Care Power of Upscale Security Officer? No Code Status History Code Status Date Activated Date Inactivated Comments Full Code 05/08/2022 4:43 AM 05/28/2022 9:35 PM This o rder reflects the patients wishes and were consensually agreed upon. Question Answer Comments Discussion of Advance Directives occurred with: Not Discussed Care Teams Compliance Officer Relationship Specialty Start Date End Date Karen Carr CRNP [address] [place] [address] PCP - General Nurse Practitioner 04/03/21 documented as of this encounter
--- OUTSIDE RECORDS SUMMARY | 2024-03-31 13:47 | External Medical Summary | Summary of Care ---
Author Name Unknown Organization [facility] Address [address] [place] [address] Phone [phone] Care Team Providers Care Pet Supplies Salesperson Name Role Phone Lilly Karen CHRISTY Primary Care Provider [phone]- [phone] Reason for Visit * Precert (Within 10 days (routine)) - Authorized Specialty Diagnoses / Procedures Referred By Contac t Referred To Contact Radiology Diagnoses ALS (amyotrophic lateral sclerosis) (HCC) Gastrojejunostomy tube status (HCC) Procedures IR GASTROINTESTINAL OSTOMY WA REPLACEMENT GASTRO-JEJUNOSTOMY TUBE Cassidy Glass CRNP [address] [place] [address] Referral ID Status Reason Start Date Expiration Date V isits Requested Visits Authorized [id number] Authorized Precert 06/10/2023 03/07/2026 24 24 Encounter Details Date Type Department Care Team (Latest Contact Info) Description 12/23/2023 11:54 AM EST - 12/23/2023 3:51 PM EST Hospital Encounter Radiology Waiting Room [facility] 1[address] [place] [address] Celso Conklin MD [address], [place] [id number] Arrived Discharge Disposition: Home - Self Care Allergies Active Allergy Reactions Criticality Noted Date Comments Hydromorphone 10/21/2023 Urine retention Oxycodone 01/29/2022 Other Reaction(s): Hallucinations documented as of this encounter (statuses as of 12/24/2023) Medications Medication Sig Dispensed Refills Start Date End Date Status Ipratropium [place] (ATROVENT) 0.03 % nasal spray Use 2 [...] as needed for Sleep. 0 Active Nystatin 983697 UNIT/GM External Powder (Nystop) Apply topically to [...] to buttocks for bed sores. 0 Active [email or web address] Standard 1.4 Enteral Liquid 100 mL by [...] as of this encounter (statuses as of 12/24/2023) Active Problems Problem Noted Date Diagnosed Date [...] as of this encounter (statuses as of 12/24/2023) Resolved Problems Problem Noted Date Diagnosed Date Resolved Date Septic shock 05/27/2022 05/28/2022 HENRI (acute kidney injury) 05/27/2022 documented as of this encounter (statuses as of 12/24/2023) Immunizations Name Administration Dates Next Due Seasonal [...] Sign Reading Time Taken Comments Blood Pressure 123/87 12/23/2023 3:34 PM EST Pulse 70 12/23/2023 3:34 PM EST Temperature 36.7 C (98.1 F) 12/23/2023 12:[address] Respiratory Rate 18 12/23/2023 3:34 PM EST Oxygen Saturation 100% 12/23/2023 3:34 PM EST Inhaled Oxygen Concentration - - Weight - - Height - - Body Mass Index - - documented in this encounter Functional Status Functional Status Response Date of Assess ment Do you have serious difficul ty walking or climbing stairs? (5 years old or older) Yes 05/13/2022 documented as of this encounter Discharge Instructions * Discharge Instr - AVS* Sunshine Galvez PA-C - 12/23/2023 2:51 PM EST Discharge Date: 12/23/2023 Provider: Dr. Xavier Kaba If you are experiencing any problems related to your procedure, please contact Interventional Radiology at [phone] during normal business hours: Friday - Friday, 8:00 am - 4:00 pm. If a problem occurs outside of normal business hours, please call the hospital reflow operator at [phone] and ask for the Interventional Radiologist television antenna installer. Contact scheduling for Interventional Radiology at [phone] during normal business hours: Friday - Friday, 8:00 am - 4:00 pm. The information below provides you with the instructions and the list of medications you need to betaking following discharge from the hospital. If you have any questions, please ask before leaving.Please carry this letter with you when you see your doctor in the clinic. If you have questions, you can reach us at the numbers above. SPECIAL INSTRUCTIONS Gastrostomy or Gastro-Jejunostomy (G or G-J Tube) or Jejunostomy (J Tube) You have been discharged with a feeding tube. The feeding tube was inserted through your abdominal wall and into your stomach to provide you with food, fluids, and medication. Your tube may move in and out slightly. If the tube comes out all the way, don't put it back in. Call your doctor. You needto keep the skin around the feeding tube dry and clean. This helps prevent soreness and infection. The mouth also needs to be cleansed, even though food is not taken through. Home Care You may resume normal diet as tolerated. If you experience pain or discomfort at the site you may take acetaminophen (Tylenol) or your preferred pain medicine as directed. Avoid strenuous activity for 24 to 48 hours after the procedure. Do not lift anything heavier than 10 pounds for 3 days after the procedure. Gradually increase your activity after 24 to 48 hours after the procedure. When showering, please cover your site with plastic wrap to avoid getting it wet. Please DO NOT take a bath, soak in a hot tub, or swim. The three round anchors will automatically fall off within 14 days. If they do not completely fall off in 14 days, please contact Interventional Radiology. Cleaning the Skin Gently wash the skin around the feeding tube daily. Please follow these steps: Wash your hands. Wet a soft cloth or gauze with warm, soapy water. Gently wipe the skin around the feeding tube. Also wipe the bolster and the base of the feeding tube. Rinse well with clear, warm water. Pat dry with a soft cloth. Cleaning Under the Bolster When you wash the skin, clean and check under the bolster. Please follow these steps: Gently lift the bolster just enough to get a cotton swab under it. Be careful not to pull on the feeding tube. Check for redness, swelling, bleeding, or leakage around the opening. Dip a cotton swab in warm water and gently clean under the bolster. Pat the skin dry. Apply a protective skin barrier or antibacterial ointment if your health care provider tells you to. Gently push the bolster back against the skin. Wash your hands. Medications and Flushing the Tube Flush the tube with 30 mL warm water daily if not currently being used for medications or feeds. Your tube should be flushed before and after every use. Take medications in the following order (each mixed in about 15 mL warm water) Liquid medicines first Medicines that need to be dissolved second Thick medicines last Take each medicine by itself. Never mix medicines together in the syringe. Flush the tube with 5 mL or more warm water between all medications. Flush the tube with 30 mL warm water after all medications have been given. Some medicines may not be mixed with feeding formula. Ask your doctor how long you should wait to start feeding after taking medications. Keep your tube clamped between feedings. Additional Resource [email or web address] Follow Up An appointment will be made for you to have your tube changed approximately every 3-6 months for routine care. If you do not hear from a crew scheduler, call Interventional Radiology at [phone] during normal business hours: Friday through Friday 8 am to 4:30 pm to schedule an appointment. {GI Nutrition Care of Tube:80142} When to Call Interventional Radiology Call Interventional Radiology right away if you have any of the following: If your tube becomes dislodged, try to replace the tube and tape it to hold it in place. This will keep the tract open until we can exchange the tube. If you cannot place the tube back in, that is okay. This is not a medical emergency and you do not need to go to the ER. Please either call the IR Provider on-call or call us during normal business hours at the numbers provided above. This is something that should be addressed within 24 hours, particularly if you are dependent on your tube for medication administration. Fever above 100 degrees Fahrenheit Increased bleeding, redness, swelling, warmth, or discharge at the incision site. Constant or increasing pain, numbness, coldness, or tingling around the incision area. The tube feels loose, comes out or the size of the opening where the tube enters the skin increases. Red, rough tissue develops around the tube site. You see blood around the tube, in stool, or in contents of the stomach. The tube becomes clogged or blocked and you cannot clear it. You start to cough, choke, or vomit while feeding. You have a bloated or rigid abdomen (belly feels hard when gently pressed.) You have diarrhea. If at any time you experience any of the following or feel you are having a medical emergency, [id number] for emergency assistance. Chest Pain Sudden, severe shortness of breath Rapid heart rate Sudden onset of weakness Coughing up blood See your referring physician for follow-up appointment. Do not smoke or use tobacco products in any way! If you feel suicidal or homicidal, please call the crisis hotline at 1-420-119-UMHK ([phone]) Driving: You may resume driving today, if previously driving . Diet: You may resume your current diet as tolerated. Return to work or school: You may return to school or work 2 hours after the procedure, unless otherwise instructed by the physician. documented in this encounter Nursing Notes * Cheryl Evans RN - 12/23/2023 3:50 PM EST DISCHARGE - POST INTERVENTIONAL RADIOLOGY PROCEDURE Patient meets discharge criteria for Interventional Radiology. Vital signs stable. Site clean, dry,and intact. Patient awake and oriented to pre procedure baseline. Discharge instructions given, no questions at this time. Patient tolerating liquids, with no nausea/vomiting. All belongings sent with patient. Discharged to home. Vital Signs: BP: 123/87 (12/23/23 1534) Temp: 36.7 C (98.1 F) (12/23/23 1200) Pulse: 70 (12/23/23 153) Resp: 18 (12/23/23 153) SpO2: 100 % (12/23/231533) Neurological: Hudgins Coma Scale Eyes Open: Spontaneous (12/23/231533) Best Verbal Response: No Response / ET Tube (non verbal) (12/23/231533) Best Motor Response: Obeys commands appropriate for age (12/23/23 153) Coma Score: 11 (12/23/231533) Activity: Four Extremities LOC: Fully Awake or Pre-Anesthetic Level of Consciousness BP: Less than (+/-) 20% Resp: Deep Breathe and Cough Freely (12/23 1536) Respiratory: Pain Assessment Flowsheet Row Most Recent Value Pain Assessment Scale [facility] Adult Scale 0-10 Pain Score 0 (no pain) NVPS Total 0 * Pratibha Olsen RN - 12/23/2023 3:16 PM EST ops analyst note Name: Jose Enrique Doll Date: 12/23/2023 Procedure: Gastrojejunostomy Tube Exchange Patient ID band checked using two identifiers. Patient placed on procedure table, supine position, with comfort measures intact and safety strap in place. Hemodynamic monitoring placed and initiated.Patient denies any current complaints at current time. RT staff prepares and preps for procedure. Procedure by physician. 3:26 PM Timeout performed by Dr. Xavier Kaba . Correct catheter/tube size verbalized and verified during timeout. 3:27 PM Procedure started by Sunshine Galvez PA-C, and scrubbed RT Bre. Images obtained. 3:28 PM Guidewire inserted. Images obtained. 3:29 PM Feeding tube removed. 3:30 PM New tube inserted. AVANOS ED GJ Tube. 22 Fr. X 45 cm. Lot [id number]. Exp: 10-07-2025. Balloon inflated with 7 mL sterile water. Images obtained. 3:33 PM Area cleaned. Patient tolerated procedure well without complications. All wires, catheters, sheaths and other devices have been inspected prior to the procedure for damage. This has been confirmed by the scrubbed RT and the operating physician. All items not intended to remain in the patient have been inspected, accounted for and have been removed from the patient atthe end of the procedure. This has been confirmed by the scrubbed RT and the operating physician. Pt did not receive conscious sedation for their procedure. Total medications given N/A Please see doctor's operative note for additional details. documented in this encounter Plan of Treatment Upcoming Encounters Date Type Department Care Team (Late st Contact Info) Description 01/20/2024 11:00 AM EDT Office Visit Otolaryngology/Head & Neck/Facial Plastic Surgery [address] [place] [address] Rony Díaz MD [address] [place] [address] Pending Results Name Type Priority Associated Diagnoses Date/Time IR GASTROINTESTINAL OSTOMY Medical Imaging Routine ALS (amyotrophic lateral sclerosis) (HCC) Gastrojejunostomy tube status (HCC) 12/23/2023 3:40 PM EST Health Maintenance Due Date Last Done Comments [...] this encounter Medical Devices Implanted Type Area Mobile Architect Device Identifier Shelf Expiration Date Model / Serial / Lot Coil Emboli Lyn [id number] - [id number] Implanted:Qty: 1 on 05/11/2022 at [facility] [id number] 03/01/2027 [id number] / / [id number] Coil Emboli Lyn [id number] - [id number] Implanted:Qty: 1 on 05/11/2022 at [facility] [id number] 03/01/2027 [id number] / / [id number] Device Vasc Clos Mynx 5fr - [id number] Implanted:Qty: 1 on 05/11/2022 at [facility] [id number] 03/02/2024 [id number] / / [id number] documented as of this encounter Visit Diagnoses Diagnosis ALS (amyotrophic lateral sclerosis) (HCC) Amyotrophic lateral sclerosis Gastrojejunostomy tube status (HCC) Intestinal bypass or anastomosis status documented in this encounter Administered Medications Inactive Administered Medications - up to 3 most recent administrations Medication Order MAR Action Action Date Dose Rate Site Ioversol (Optiray 320) inj 50 mL 50 mL, Intravenous, ONCE, On Fri12/23/23 at 1615, For 1 dose Given 12/23/2023 4:15 PM EST 30 mL documented in this encounter Active and Recently Administered Medications Times are shown in EST. Scheduled Medication Order 12/21/2023 12/22/2023 12/23/2023 Ioversol (Optiray 320) inj 50 mL (COMPLETED) 50 mL, Intravenous, ONCE, On Fri12/23/23 at 1615, For 1 dose 1615 (Given - Provid er: Presley Andrea RT (R)) documented in this encounter Advance Directives Latest Code Status on File Code Status Date Activated Date Inactivated Comments Full Code 06/16/2022 6:14 PM 06/21/2022 3:57 PM Question Answer Comments Discussion of Advance Direct boogie occurred with: Not Discussed Does the patient have a Living Will? No Does the patient have Health Care Power of Ux Manager? No Code Status History Code Status Date Activated Date Inactivated Comments Full Code 05/08/2022 4:43 AM 05/28/2022 9:35 PM This o rder reflects the patients wishes and were consensually agreed upon. Question Answer Comments Discussion of Advance Directives occurred with: Not Discussed Care Teams Pet Supplies Salesperson Relationship Specialty Start Date End Date Karen Carr CRNP [address] [facility], [place] [address] PCP - General Nurse Practitioner 04/03/21 documented as of this encounter
[2024-03-31] MEDS: ACETAMINOPHEN SUSP 325 MG/10.15 ML UDC PEG PRN (14:35)
[2024-03-31] MEDS ORDERED: STAT IV/IM STA (14:45)
[2024-03-31] MEDS: SODIUM BICARBONATE 8.4% 150 MEQ in DEXTROSE 5% 1,000 ML IV SCH (16:01)
[2024-03-31 16:28] LABS: Anion Gap 11 (3-11); BUN Creatinine Ratio 86.4 (10-20); Blood Urea Nitrogen 19 mg/dl (6-23); Calcium 7.5 mg/dl (8.6-10.3); Carbon Dioxide 11 mmol/L (21-32); Chloride 122 mmol/L (98-107); Creatinine Clr Calc Pharmacy 455.7 ml/min; Est GFR (African American) > 150.0 ml/min; Est GFR (Non-African American) > 150.0 ml/min; Glucose 395 mg/dl (70-99(Fasting)); Phosphorus 1.9 mg/dl (2.5-4.9); Sodium 144 mmol/L (136-145)
--- NOTE | 2024-03-31 16:32 | Communication Note ---
Date of Service: March 31, 2024 Patient was seen and examined at bedside. 38 yo M w/ PMH of ALS s/p trach & ventilator, G-tube placement, chronic pancreatitis, pancreatic pseudocyst and pancreatic necrosis, chronic respiratory failure requiring continuous mechanical ventilation through tracheostomy, allergic rhinitis, impaired mobility and ADLs, severe sepsis 2/2 pneumonia, isolated atrial fibrillation, cardiac murmur, dry eye syndrome, left ventricular systolic dysfunction, slow gastric motility, s/p feeding tube who lives at home with his was brought in because of tachycardia and flushing apparently after morphine dose by HH at home. patient communicates with flicking of eyes [1 Flick means Yes and 2 Flicks means no]. He was noted to be in DKA and septic shock 2/2 uti at presentation. He was admitted in ICU. He is being managed for the following: Complicated UTI: Admitting UA suggestive of UTI Septic shock: Tachycardia and elevated WBC at presentation. Lactate and procalcitonin also elevated Multiple organ dysfunction: Encephalopathy/EHNRI/elevated LFTs. Likely secondary to septic shock Septic shock likely secondary to UTI at presentation, complicated by hypovolemia secondary to DKA CTA chest and CTAP w/ no acute findings. Continue IV fluid resuscitation, trend lactate, MAP goal greater than 65 mmHg. Patient started on Zosyn 03/31 and vancomycin 03/31, continue, follow admitting blood and urine culture. Patient being managed in ICU. Diabetic ketoacidosis/hyperglycemic hyperosmolar nonketotic coma: likely overlap Admitting labs: Blood glucose 817, A1c 7.6, anion gap 19, urine positive for ketones Status post aggressive IV fluid, currently under insulin drip, anion gap has closed, being closely managed in ICU. Hypernatremia: Admitting labosmolality 395, sodium 157. status post IV fluid, sodium level gradually dropping, latest 150.slow correction w/ close lab monitoring. pt now on bicarb drip, in icu. Acute kidney injury: Baseline creatinine less than 0.2, admitting creatinine of 0.48. Status post IV fluid. Resolved. Metabolic encephalopathy: Likely secondary to acute illness, expect to improve with improvement in the acute illness. Transaminitis: Likely secondary to septic shock, trend LFT, CTAP reviewed. tylenol level neg. follow hep panel Other chronic medical conditions: Continue with/resume home meds as and when able ALS s/p trach chronic respiratory requiring continuous mechanical ventilation through trach on ventilator Vent management as per critical care/pulm nutrition: on tube feeds chronic systolic CHF mild global hypokinesis on echo done in 12/2021 EF of 45 to 50%. grade 1dysfunction. monitor for volume overload DVT prophylaxis: heparin subcu disposition: ICU full code for detailed information on the patient, refer to today's H&P note.
[2024-03-31 18:36] LABS: Anion Gap 9 (3-11); Blood Urea Nitrogen 15 mg/dl (6-23); Calcium 6.7 mg/dl (8.6-10.3); Carbon Dioxide 14 mmol/L (21-32); Chloride 123 mmol/L (98-107); Creatinine Clr Calc Pharmacy 501.3 ml/min; Est GFR (African American) > 150.0 ml/min; Est GFR (Non-African American) > 150.0 ml/min; Glucose 283 mg/dl (70-99(Fasting)); Phosphorus 1.6 mg/dl (2.5-4.9); Sodium 146 mmol/L (136-145)
[2024-03-31 18:38] LABS: Potassium 3.8 mmol/L (3.5-5.1)
[2024-03-31] MEDS ORDERED: POTASSIUM PHOS 3 MMOL/1 ML INFUSION IV STA (19:42)
[2024-03-31] MEDS: POTASSIUM PHOSPHATE 15 MMOL in SODIUM CHLORIDE 0.9% 250 ML IV ONE (20:16)
[2024-03-31] MEDS: CALCIUM GLUCONATE 1,000 MG/60 ML BAG IV SCH (20:16)
[2024-03-31 23:23] LABS: Blood Urea Nitrogen 14 mg/dl (6-23); Calcium 8.3 mg/dl (8.6-10.3); Carbon Dioxide 17 mmol/L (21-32); Chloride 116 mmol/L (98-107); Creatinine Clr Calc Pharmacy 501.3 ml/min; Est GFR (African American) > 150.0 ml/min; Est GFR (Non-African American) > 150.0 ml/min; Glucose 297 mg/dl (70-99(Fasting)); Phosphorus 2.3 mg/dl (2.5-4.9)
[2024-04-01 00:30] LABS: Potassium 3.3 mmol/L (3.5-5.1)
[2024-04-01] MEDS: POTASSIUM CHLORIDE 20 MEQ/15 ML UDC PO STA (01:04)
[2024-04-01] MEDS: POTASSIUM CHLORIDE / WTR 10 MEQ/100 ML PLCT IV SCH (01:05)
[2024-04-01 05:17] LABS: Hematocrit (blood only) 40.6 % (42.0-52.0); Hemoglobin 13.5 g/dl (14.0-18.0); Mean Corpuscular Hemoglobin 28.4 pg (25.0-34.0); Mean Corpuscular Hgb Conc 33.3 g/dL (32.0-36.0); Mean Corpuscular Volume 85.5 fL (80.0-100.0); Mean Platelet Volume 10.7 fL (9.4-12.4); Platelet Count 173 K/uL (130-400); RDW Coefficient of Variation 17.2 % (11.5-14.5); RDW Standard Deviation 54.2 fL (36.4-46.3); Red Blood Count 4.75 M/uL (4.70-6.10); White Blood Count 19.79 K/ul (4.8-10.8)
[2024-04-01 05:32] LABS: Platelet Estimate Normal (Normal)
[2024-04-01 05:41] LABS: Alanine Aminotransferase 298 U/L (7-52); Albumin Level 3.2 gm/dl (3.4-5.0); Alkaline Phosphatase 108 U/L (34-104); Anion Gap 10 (3-11); Aspartate Aminotransferase 213 U/L (13-39); Bilirubin Direct 0.5 mg/dl (0-0.2); Bilirubin,Total 1.6 mg/dl (0.2-1.0); Blood Urea Nitrogen 11 mg/dl (6-23); Calcium 7.6 mg/dl (8.6-10.3); Carbon Dioxide 19 mmol/L (21-32); Chloride 117 mmol/L (98-107); Creatinine Clr Calc Pharmacy 501.3 ml/min; Est GFR (African American) > 150.0 ml/min; Est GFR (Non-African American) > 150.0 ml/min; Glucose 320 mg/dl (70-99(Fasting)); Magnesium 1.6 mg/dl (1.7-2.4); Phosphorus 1.9 mg/dl (2.5-4.9); Potassium 3.6 mmol/L (3.5-5.1); Sodium 146 mmol/L (136-145); Total Protein 5.8 gm/dl (6.0-8.3)
[2024-04-01] MEDS ORDERED: POTASSIUM PHOS 3 MMOL/1 ML INFUSION IV STA (06:03)
[2024-04-01] MEDS: MAGNESIUM SULFATE / D5W 1 GM/100 ML BAG IV SCH (06:41)
[2024-04-01] MEDS: POTASSIUM PHOSPHATE 21 MMOL in SODIUM CHLORIDE 0.9% 500 ML IV ONE (08:29)
[2024-04-01] MEDS: POT PHOSPHATE MONOBASIC W/ SOD TAB PO SCH (08:33)
[2024-04-01] MEDS: VANCOMYCIN LEVEL ONE (08:34)
--- NOTE | 2024-04-01 09:08 | Ultrasound Report ---
US duplex portal hepatic veins CLINICAL HISTORY: elevated LFTS and bili COMPARISON STUDY: CT of the abdomen and pelvis March 30, 2024. TECHNIQUE: Color and duplex Doppler sonography of the major hepatic vessels was performed. FINDINGS: This exam is compromised by suboptimal penetration. Hepatic echogenicity is significantly i ncreased consistent with hepatic steatosis. The main portal vein is patent with appropriately directe d flow. The right and left portal veins are largely obscured but are patent on CT of March 22, 2024. Th e middle, left and right hepatic veins are patent. IMPRESSION: 1. Exam compromised by suboptimal penetration but patent major hepatic vessels with appropriately dir ected flow. 2. Severe hepatic steatosis. ACT 112: Negative or not required by law. Electronically signed by: Karl Jacinto M.D. 04/01/2024 9:05 AM
--- NOTE | 2024-04-01 09:45 | Surgery Consultation ---
Date of Consultation April 01, 2024 Assessment & Plan (1) DKA (diabetic ketoacidosis): CT images and results were personally viewed and interpreted by myself His imaging findings of thickening of the intra and extrahepatic bile ducts as well as fevers and elevated LFT's supports diagnosis of cholangitis No plans for cholecystectomy as this does help the problem Will order a STAT US gallbladder to get a look at CBD and to see if there is cholelithiasis No need for HIDA scan GI consult Would recommend transfer to a facility with ERCP capability as this is the treatment for cholangitis Continue broad spectrum ABX (2) HHNC (hyperglycemic hyperosmolar nonketotic coma): (3) Ventilator dependence: (4) Cholangitis: History of Present Illness Reason for Consultation: Elevated LFT's, Cholecystitis Attending Physician: Rl Diego MD History of Present Illness This is a 38 yo chronically mechanically ventilated male due to ALS who was admitted with hyperosmolar ketosis a little over a day ago. On initial CT scan of abdomen gallbladder a bile ducts were read as normal. Upon further review by radiology this AM, there is intra and extrahepatic bile duct dilation concerning for cholangitis. Gallbladder appears normal. He initially had normal LFT's however this morning, he has elevated total and direct bilirubin. Has had low grade fevers since admission. Has a G-tube in place. No other abdominal surgeries. Allergies Allergy/AdvReac Type Severity Reaction Status Date / Time hydromorphone [From Dilaudid] AdvReac makes pt Verified 03/31/24 00:58 retain urine Home Medications Medication Instructions Recorded Confirmed Type acetaminophen 160 mg/5 mL oral 640 mg feeding tube Q6 PRN Pain, 05/07/22 03/31/24 History liquid (Children's Acetaminophen) Mild atropine 1 % eye drops 1 drp sublingual QID PRN increased 05/07/22 03/31/24 History secretions nystatin 100,000 unit/gram topical 1 applic topical BID 05/07/22 03/31/24 History powder zinc oxide 20 % topical ointment 1 applic topical TID PRN SORES 05/07/22 03/31/24 History A,D-aloe nqpq-ipucmhktez-u.pet 1 ea topical BID PRN scrotal area 06/10/22 03/31/24 History topical ointment carboxymethylcellulose sodium 0.5 1 drp OPB UD PRN Dry Eye(S) 06/10/22 03/31/24 History % eye drops dextran 70-hypromellose (PF) 0.1 1 drp OPB QID PRN Dry Eyes 06/10/22 03/31/24 History %-0.3 % eye drops in a dropperette (Artificial Tears (PF)) famotidine 40 mg/5 mL (8 mg/mL) 20 mg feeding tube BID 06/10/22 03/31/24 History oral suspension midodrine 5 mg tablet 5 mg feeding tube TID 06/10/22 03/31/24 History polyethylene glycol 3350 17 17 g feeding tube DAILY PRN 06/10/22 03/31/24 History gram/dose oral powder (Miralax) Constipation morphine 10 mg/5 mL oral solution 5 mg feeding tube Q2H PRN Pain 10/30/22 03/31/24 History [place] 1.4 Liquid Vanilla 1 ea G-tube 5XD 04/23/23 03/31/24 History Lactobacillus acidophilus 2 cap feeding tube DAILY 04/23/23 03/31/24 History (Acidophilus capsule) hydrocortisone 2.5 % topical 1 applic topical BID PRN Itching 04/23/23 03/31/24 History ointment white petrolatum 57 % topical 1 ea topical BID PRN protectant 04/23/23 03/31/24 History paste (Remedy Phytoplex Z-Guard) ciclopirox 0.77 % topical cream 1 applic topical 3XWK 03/31/24 03/31/24 History (Ciclodan) coenzyme Q10 100 mg/5 mL oral syrup 10 mg feeding tube DAILY 03/31/24 03/31/24 History ibuprofen 100 mg/5 mL oral 200 mg feeding tube TID PRN Fever 03/31/24 03/31/24 History suspension Or Pain senna leaf extract 176 mg/5 mL 15 ml feeding tube 3XWK 03/31/24 03/31/24 History oral syrup (senna) Patient History Medical History Pressure ulcer CLOSED ON BUTTOCK Tracheostomy in place 12/2021 ORIGINALLY PLACED (LAST CHANGED 10/2022) Hypotension NO CARDS Hx of pancreatitis Pseudocyst of pancreas Left ventricular systolic dysfunction Uses feeding tube G-J TUBE USED FOR MEDS AND FEEDINGS Slow gastric motility D/T ALS Dry eye syndrome Cardiac murmur AN INFANT Sleep apnea TRILEGY MACHINE WITH 2.5L (WEARS CONT) ALS (amyotrophic lateral sclerosis) DX FEBRUARY 2014>CAN NOT MOVE Surgical History History of esophagogastroduodenoscopy (EGD) Hx of LASIK PRK S/P percutaneous endoscopic gastrostomy (PEG) tube placement History of tooth extraction History of herniorrhaphy Family History Mother Family history of diabetes mellitus Other No family history of adverse response to anesthesia Social History Smoking Status: Never smoker Second Hand Exposure: No; Do You Dip or Chew Tobacco: No; Hx Alcohol Use: No Hx Substance Use: No Preferred Language: Yakut Communication Ability: Effective Communication Ability Comment: pt can not talk--uses electronic table to communicate; signs consents Heading Machine Operator Required: No Beliefs That Will Affect Care: None marital status: Current Living Situation: Spouse Current Living Situation Comment: has 2 personal aides to help in home How many Children do You have: 3 Feels Safe at Home: Yes Safety Concerns: Feels Safe At This Time Assistive Devices: Hospital Bed, Mechanical Lift, Oxygen - Continuous and Other Assistive Devices Comment: trach/vent/peg tube/ tube feed Review of Systems Review of Systems: Unobtainable due to cognitive status Physical Exam Constitutional: Chronically ill Eyes: PERRL, conjunctivae normal, anicteric sclerae ENMT: external ear and nose normal, oropharynx normal Neck: trach in place Respiratory: normal respiratory effort, lungs clear to auscultation Cardiovascular: RRR, no murmur, no edema Chest (Breasts): normal inspection/palpation of breasts Gastrointestinal (Abdomen): Inspection/Auscultation: abdomen normal to inspection; abdomen not distended Percussion/Palpation: + abdomen tender (RUQ/Epigastrum) and abdomen soft Musculoskeletal: no cyanosis or clubbing, extremities motor strength 5/5 Skin: no rashes, warm and dry Neurologic: PERRL, EOMI, accommodation nl, no face palsy, no dysarthria Psychiatric: A+Ox3, euthymic affect Results & Data Vital Signs (Past 12 Hours) Vital Signs Temp Pulse Resp BP Pulse Ox FiO2 04/01/24 07:50 89 16 97 30 04/01/24 06:15 37.8 C H 91 H 16 99 04/01/24 06:00 37.8 C H 93 H 16 99 04/01/24 06:00 111/68 04/01/24 05:45 37.8 C H 93 H 16 100 04/01/24 05:36 115/83 04/01/24 05:36 37.8 C H 90 16 98 04/01/24 05:31 37.6 C H 82 16 04/01/24 05:30 37.7 C H 80 16 04/01/24 05:15 37.9 C H 90 16 100 04/01/24 05:00 37.9 C H 89 16 99 04/01/24 05:00 104/71 04/01/24 04:45 37.8 C H 91 H 16 100 04/01/24 04:30 113/71 04/01/24 04:30 37.8 C H 88 16 100 04/01/24 04:15 37.8 C H 81 16 97 04/01/24 04:00 37.4 C 85 16 100 04/01/24 04:00 110/70 04/01/24 04:00 40 04/01/24 03:45 37.7 C H 85 16 98 04/01/24 03:32 16 40 04/01/24 03:30 108/69 04/01/24 03:30 37.7 C H 86 16 100 04/01/24 03:15 37.6 C H 88 16 100 04/01/24 03:00 37.6 C H 83 16 97 04/01/24 03:00 105/73 04/01/24 02:46 37.6 C H 86 14 100 04/01/24 02:30 106/71 04/01/24 02:30 37.6 C H 85 16 100 04/01/24 02:26 37.6 C H 84 16 98 04/01/24 02:00 107/72 04/01/24 02:00 37.6 C H 88 16 100 04/01/24 01:45 37.6 C H 89 16 100 04/01/24 01:30 99/67 L 04/01/24 01:30 37.7 C H 87 16 98 04/01/24 01:15 37.7 C H 79 16 100 04/01/24 01:00 105/71 04/01/24 01:00 37.7 C H 87 16 100 04/01/24 00:45 37.7 C H 86 16 100 04/01/24 00:30 104/74 04/01/24 00:30 37.7 C H 89 16 100 04/01/24 00:15 37.7 C H 87 16 100 04/01/24 00:00 37.7 C H 83 16 99 04/01/24 00:00 110/71 04/01/24 00:00 30 04/01/24 00:00 90 03/31/24 23:45 37.7 C H 82 16 100 03/31/24 23:30 122/81 03/31/24 23:30 37.7 C H 85 16 100 03/31/24 23:15 37.7 C H 79 16 97 03/31/24 23:05 17 30 03/31/24 23:00 128/76 03/31/24 23:00 37.7 C H 85 16 100 03/31/24 22:45 37.7 C H 89 16 99 03/31/24 22:35 123/73 03/31/24 22:35 37.8 C H 86 16 99 03/31/24 22:30 37.8 C H 93 H 16 99 03/31/24 22:30 117/76 03/31/24 22:15 37.9 C H 94 H 18 99 03/31/24 22:00 115/79 03/31/24 22:00 38.0 C H 93 H 18 99 Diagnostic Findings Addendum: Upon further review, note is made of wall thickening and enhancement of the intra and extrahepatic bile ducts. Common bile duct is slightly dilated, measuring 8 mm in caliber. The findings raise the possibility of cholangitis. Findings discussed with Marquise Elam at time of addendum. There is severe hepatic stenosis. No hepatic lesions are identified. Major hepatic vessels are patent. PG Care Time/CCT Total # of Minutes Spent Total Time Spent with Patient: Total time spent is greater than 50% in coordination of care (as documented) at patient's floor/unit and/or counseling patient: Coding Level of Care Code 85634 IN/OBS CONSULT LVL 5,80M Diagnoses DKA (diabetic ketoacidosis) E08.10 Diabetes mellitus complication detail: without coma Diabetes mellitus type: due to underlying condition HHNC (hyperglycemic hyperosmolar nonketotic coma) E11.01 Ventilator dependence Z99.11 Cholangitis K83.09 (1) DKA (diabetic ketoacidosis) Diabetes mellitus complication detail: without coma Diabetes mellitus type: due to underlying condition Qualified Code(s): E08.10 - Diabetes mellitus due to underlying condition with ketoacidosis without coma
--- NOTE | 2024-04-01 11:18 | Billing Data ---
Date of Service April 01, 2024 Coding Level of Care Code 08288 SUB INP/OBS CARE
--- NOTE | 2024-04-01 11:18 | Critical Care Progress Note ---
Date of Service April 01, 2024 Assessment & Plan (1) Cholangitis: (2) Acute dehydration: (3) DKA (diabetic ketoacidosis): (4) Sepsis: (5) HHNC (hyperglycemic hyperosmolar nonketotic coma): (6) Ventilator dependence: (7) DVT prophylaxis: (8) History of tracheostomy: (9) Chronic respiratory failure: Plan Dehydration hyponatremia improving. Serum bicarbonate improving with D5W and bicarbonate infusion. Continue insulin drip to maintain glucoses under 180. Patient with findings concerning for ascending cholangitis given LFT derangements and CT abdomen findings. Appreciate general surgery input. GI consulted. Discussed with hospitalist about potential transfer to tertiary center. Hospital service is going to contact tertiary center as the patient will likely require ERCP. Will continue with chronic ventilator settings at this time. HENRI overall appears to be resolved. Sodium levels as noted previously are improving to 146. Blood cultures thus far negative today. Urine cultures growing gram-negative bacilli. Will continue Zosyn. Continue midodrine for chronic hypotension. Replace electrolytes aggressively including magnesium, phosphorus and potassium. Recheck BMP later today. Admission and Anticipated Discharge Date Admission Date: March 31, 2024 Subjective Patient hemodynamically stable, but with persistent fever. Radiology over read the CT abdomen pelvis and there is concern for ensure and extrahepatic bile duct dilation concerning for cholangitis. Surgery was consulted and reviewed the patient. Recommending GI consult, ERCP and likely transfer to an ERCP capable facility. Review of Systems Review of Systems: All systems reviewed & are unremarkable except as noted in HPI & below Physical Exam Physical Exam: PHYSICAL EXAM: General: Somnulent Head: Normocephalic, atraumatic ENT: PERRLA, EOMI, no pharyngeal exudate, mucous membranes dry Neuro:opens eyes to voice/stimulation, falls back to sleep, able to communicate through his computer. Chest: equal rise and fall of the chest, no accessory muscle use, Clear to auscultation, on vent through trach Cardiac: Regular rate and rhythm, telemetry reviewed- sinus tachycardia, skin w arm dry, cap refill <3 seconds, peripheral pulses +2 no JVD, no murmur, no edema GI: NABS x 4 quadrants, soft, nontender to palpation, no rebound, guarding or tenderness : walker to gravity draining dark urine Skin: no rash or erythema Results & Data Results & Data Vital Signs (Past 12 Hours) Vital Signs Temp Pulse Resp BP Pulse Ox FiO2 04/01/24 08:00 30 04/01/24 07:50 89 16 97 30 04/01/24 06:15 37.8 C H 91 H 16 99 04/01/24 06:00 37.8 C H 93 H 16 99 04/01/24 06:00 111/68 04/01/24 05:45 37.8 C H 93 H 16 100 04/01/24 05:36 115/83 04/01/24 05:36 37.8 C H 90 16 98 04/01/24 05:31 37.6 C H 82 16 04/01/24 05:30 37.7 C H 80 16 04/01/24 05:15 37.9 C H 90 16 100 04/01/24 05:00 37.9 C H 89 16 99 04/01/24 05:00 104/71 04/01/24 04:45 37.8 C H 91 H 16 100 04/01/24 04:30 113/71 04/01/24 04:30 37.8 C H 88 16 100 04/01/24 04:15 37.8 C H 81 16 97 04/01/24 04:00 37.4 C 85 16 100 04/01/24 04:00 110/70 04/01/24 04:00 40 04/01/24 03:45 37.7 C H 85 16 98 04/01/24 03:32 16 40 04/01/24 03:30 108/69 04/01/24 03:30 37.7 C H 86 16 100 04/01/24 03:15 37.6 C H 88 16 100 04/01/24 03:00 37.6 C H 83 16 97 04/01/24 03:00 105/73 04/01/24 02:46 37.6 C H 86 14 100 04/01/24 02:30 106/71 04/01/24 02:30 37.6 C H 85 16 100 04/01/24 02:26 37.6 C H 84 16 98 04/01/24 02:00 107/72 04/01/24 02:00 37.6 C H 88 16 100 04/01/24 01:45 37.6 C H 89 16 100 04/01/24 01:30 99/67 L 04/01/24 01:30 37.7 C H 87 16 98 04/01/24 01:15 37.7 C H 79 16 100 04/01/24 01:00 105/71 04/01/24 01:00 37.7 C H 87 16 100 04/01/24 00:45 37.7 C H 86 16 100 04/01/24 00:30 104/74 04/01/24 00:30 37.7 C H 89 16 100 04/01/24 00:15 37.7 C H 87 16 100 04/01/24 00:00 37.7 C H 83 16 99 04/01/24 00:00 110/71 04/01/24 00:00 30 04/01/24 00:00 90 03/31/24 23:45 37.7 C H 82 16 100 03/31/24 23:30 122/81 03/31/24 23:30 37.7 C H 85 16 100 03/31/24 23:15 37.7 C H 79 16 97 Coding Level of Care Code 53890 SUB INP/OBS CARE 2MIN Diagnoses Cholangitis K83.09 Acute dehydration E86.0 DKA (diabetic ketoacidosis) E08.10 Diabetes mellitus complication detail: without coma Diabetes mellitus type: due to underlying condition Sepsis A41.9 Sepsis acute organ dysfunction status: unspecified Sepsis type: sepsis due to unspecified organism HHNC (hyperglycemic hyperosmolar nonketotic coma) E11.01 Ventilator dependence Z99.11 DVT prophylaxis Z29.9 History of tracheostomy Z98.890 Chronic respiratory failure J96.10 (3) DKA (diabetic ketoacidosis) Diabetes mellitus complication detail: without coma Diabetes mellitus type: due to underlying condition Qualified Code(s): E08.10 - Diabetes mellitus due to underlying condition with ketoacidosis without coma (4) Sepsis Sepsis acute organ dysfunction status: unspecified Sepsis type: sepsis due to unspecified organism Qualified Code(s): A41.9 - Sepsis, unspecified organism
--- NOTE | 2024-04-01 11:23 | Ultrasound Report ---
US gallbladder CLINICAL HISTORY: R/o gallstones, choledocholithiasis TECHNIQUE: Multiple real-time sonographic images of the right upper quadrant were obtained. Comparison: Comparison is made to CT abdomen pelvis 03/30/2024 FINDINGS: Exam is limited by patient positioning. The liver is diffusely echogenic in appearance with poor ultr asound penetration, with normal contour, which is consistent with fatty infiltration. No focal mass l esions are seen. No intrahepatic ductal dilatation is seen. No gallstones or sludge are identifie d within the gallbladder. The gallbladder wall is not thickened. There is no pericholecystic fluid pr esent. The common duct measures 0.7 cm in diameter at the level of the hepatic artery. Prominent lef t intrahepatic bile ducts are seen. The distal pancreas is not visualized due to overlying bowel gas. The visualized portions of the pancreas are unremarkable. Trace ascites is seen adjacent to the celina er. The right kidney shows normal echogenicity, cortical thickness and renal contour. The right kidney sh ows no evidence of hydronephrosis or mass. No ascites or free fluid is seen in Jiménez's pouch. IMPRESSION: 1. Limited exam with no evidence of acute cholecystitis. There is mild dilation of the common bile d uct and intrahepatic bile ducts, choledocholithiasis cannot be excluded. If there is clinical concern , MRCP can be performed. 2. Hepatic steatosis. ACT 112: Negative or not required by law. Electronically signed by: Suhas Acevedo M.D. 04/01/2024 11:22 AM
--- NOTE | 2024-04-01 12:52 | Gastrointestinal Consultation ---
Date of Consultation April 01, 2024 Assessment & Plan (1) Cholangitis: (2) Dilated bile duct: Plan -Agree with the previous recommendation of transferring patient to a facility equipped for ERCP intervention -Continue medical treatment of cholangitis with IV antibiotics per primary team Supervising Physician Co-Signing Physician Notes Agree with IRINEO Mederos as above Patient was discharged prior to my evaluation. History of Present Illness Reason for Consultation: Elevated LFTs, cholangitis Attending Physician: Rl Diego MD History of Present Illness Patient is a 38-year-old male with past med history significant for ALS s/p trach, ventilator, G-tube placement, chronic pancreatitis , history of pancreatic pseudocyst and pancreatic necrosis, chronic respiratory failure requiring continuous mechanical ventilation through tracheostomy, allergic rhinitis, impaired mobility and ADLs , history of severe sepsis pneumonia, history of isolated atrial fibrillation, cardiac murmur, dry eye syndrome, history of left ventricular systolic dysfunction, slow gastric motility, & G tube fed. Patient was brought to the ED due to tachycardia and flushing. Patient communicates with blinking and complained to his of abdominal discomfort. In the ED, he was noted to have a hyperglycemia. He was hypotensive and tachycardic. He was treated for a possible allergic reaction with H2 gilmer and IV steroids. He underwent extensive testing to identify any potential sources of infection. An initial read on his CT abd/pelvis did not indicate a problem. This was re-read on 04/01 due to persistent issues, worsening labs, & fever. Re-read of CT scan indicated cholangitis and intra/extrahepatic ductal dilatation. Common bile duct slightly dilated. WBC 19,790. glucose 320. T bili 1.6, D bili 0.5, AST 213, ALT 298, Alk phos 108. He has been evaluated by general surgery. Allergies Allergy/AdvReac Type Severity Reaction Status Date / Time hydromorphone [From Dilaudid] AdvReac makes pt Verified 03/31/24 00:58 retain urine Home Medications Medication Instructions Recorded Confirmed Type acetaminophen 160 mg/5 mL oral 640 mg feeding tube Q6 PRN Pain, 05/07/22 03/31/24 History liquid (Children's Acetaminophen) Mild atropine 1 % eye drops 1 drp sublingual QID PRN increased 05/07/22 03/31/24 History secretions nystatin 100,000 unit/gram topical 1 applic topical BID 05/07/22 03/31/24 History powder zinc oxide 20 % topical ointment 1 applic topical TID PRN SORES 05/07/22 03/31/24 History A,D-aloe yapu-xogjnrhqks-i.pet 1 ea topical BID PRN scrotal area 06/10/22 03/31/24 History topical ointment carboxymethylcellulose sodium 0.5 1 drp OPB UD PRN Dry Eye(S) 06/10/22 03/31/24 History % eye drops dextran 70-hypromellose (PF) 0.1 1 drp OPB QID PRN Dry Eyes 06/10/22 03/31/24 History %-0.3 % eye drops in a dropperette (Artificial Tears (PF)) famotidine 40 mg/5 mL (8 mg/mL) 20 mg feeding tube BID 06/10/22 03/31/24 History oral suspension midodrine 5 mg tablet 5 mg feeding tube TID 06/10/22 03/31/24 History polyethylene glycol 3350 17 17 g feeding tube DAILY PRN 06/10/22 03/31/24 History gram/dose oral powder (Miralax) Constipation morphine 10 mg/5 mL oral solution 5 mg feeding tube Q2H PRN Pain 10/30/22 03/31/24 History [place] 1.4 Liquid Vanilla 1 ea G-tube 5XD 04/23/23 03/31/24 History Lactobacillus acidophilus 2 cap feeding tube DAILY 04/23/23 03/31/24 History (Acidophilus capsule) hydrocortisone 2.5 % topical 1 applic topical BID PRN Itching 04/23/23 03/31/24 History ointment white petrolatum 57 % topical 1 ea topical BID PRN protectant 04/23/23 03/31/24 History paste (Remedy Phytoplex Z-Guard) ciclopirox 0.77 % topical cream 1 applic topical 3XWK 03/31/24 03/31/24 History (Ciclodan) coenzyme Q10 100 mg/5 mL oral syrup 10 mg feeding tube DAILY 03/31/24 03/31/24 History ibuprofen 100 mg/5 mL oral 200 mg feeding tube TID PRN Fever 03/31/24 03/31/24 History suspension Or Pain senna leaf extract 176 mg/5 mL 15 ml feeding tube 3XWK 03/31/24 03/31/24 History oral syrup (senna) Patient History Medical History Pressure ulcer CLOSED ON BUTTOCK Tracheostomy in place 12/2021 ORIGINALLY PLACED (LAST CHANGED 10/2022) Hypotension NO CARDS Hx of pancreatitis Pseudocyst of pancreas Left ventricular systolic dysfunction Uses feeding tube G-J TUBE USED FOR MEDS AND FEEDINGS Slow gastric motility D/T ALS Dry eye syndrome Cardiac murmur AN INFANT Sleep apnea TRILEGY MACHINE WITH 2.5L (WEARS CONT) ALS (amyotrophic lateral sclerosis) DX FEBRUARY 2014>CAN NOT MOVE Surgical History History of esophagogastroduodenoscopy (EGD) Hx of LASIK PRK S/P percutaneous endoscopic gastrostomy (PEG) tube placement History of tooth extraction History of herniorrhaphy Family History Mother Family history of diabetes mellitus Other No family history of adverse response to anesthesia Social History Smoking Status: Never smoker Second Hand Exposure: No; Do You Dip or Chew Tobacco: No; Hx Alcohol Use: No Hx Substance Use: No Preferred Language: Syrian Communication Ability: Impaired Communication Ability Comment: pt can not talk--uses electronic table to communicate; signs consents Senior Clinical Data Analyst Required: No Beliefs That Will Affect Care: None marital status: Current Living Situation: Spouse Current Living Situation Comment: has 2 personal aides to help in home How many Children do You have: 3 Feels Safe at Home: Yes Safety Concerns: Feels Safe At This Time Assistive Devices: Mechanical Lift, Nebulizer, Scooter/Electric Scooter and Other Assistive Devices Comment: trach/vent/peg tube/ tube feed Review of Systems Review of Systems: All systems reviewed & are unremarkable except as noted in Subjective Gastrointestinal: + abdominal pain Physical Exam Constitutional: no acute distress Psychiatric: Orientation: alert Results & Data Vital Signs (Past 12 Hours) Vital Signs Temp Pulse Resp BP Pulse Ox O2 Del Method FiO2 04/01/24 11:15 38.0 C H 89 14 99 04/01/24 11:02 87 16 100 30 04/01/24 11:00 120/67 04/01/24 11:00 38.0 C H 88 14 99 04/01/24 10:45 38.1 C H 84 14 100 04/01/24 10:30 122/85 04/01/24 10:30 38.1 C H 89 14 100 04/01/24 10:15 38.1 C H 83 14 99 04/01/24 10:00 121/70 04/01/24 10:00 38.1 C H 84 14 100 04/01/24 09:45 38.1 C H 80 14 100 04/01/24 09:30 38.0 C H 83 14 99 04/01/24 09:30 119/70 04/01/24 09:15 38.0 C H 85 14 99 04/01/24 09:00 38.0 C H 84 14 99 04/01/24 09:00 121/73 04/01/24 08:45 37.9 C H 89 14 100 04/01/24 08:30 118/69 04/01/24 08:30 37.8 C H 85 14 99 04/01/24 08:15 37.8 C H 90 14 99 04/01/24 08:08 Mechanical Vent 30 04/01/24 08:00 122/70 04/01/24 08:00 37.7 C H 96 H 14 96 04/01/24 08:00 30 04/01/24 07:50 89 16 97 30 04/01/24 07:45 37.7 C H 94 H 16 97 04/01/24 07:30 119/69 04/01/24 07:30 37.7 C H 89 16 98 04/01/24 07:15 37.7 C H 90 16 99 04/01/24 07:00 108/67 04/01/24 07:00 37.7 C H 88 16 98 04/01/24 06:50 89 04/01/24 06:45 37.7 C H 88 16 96 04/01/24 06:30 119/72 04/01/24 06:30 37.7 C H 90 16 100 04/01/24 06:15 37.8 C H 91 H 16 99 04/01/24 06:00 37.8 C H 93 H 16 99 04/01/24 06:00 111/68 04/01/24 05:45 37.8 C H 93 H 16 100 04/01/24 05:36 115/83 04/01/24 05:36 37.8 C H 90 16 98 04/01/24 05:31 37.6 C H 82 16 04/01/24 05:30 37.7 C H 80 16 04/01/24 05:15 37.9 C H 90 16 100 04/01/24 05:00 37.9 C H 89 16 99 04/01/24 05:00 104/71 04/01/24 04:45 37.8 C H 91 H 16 100 04/01/24 04:30 113/71 04/01/24 04:30 37.8 C H 88 16 100 04/01/24 04:15 37.8 C H 81 16 97 04/01/24 04:00 37.4 C 85 16 100 04/01/24 04:00 110/70 04/01/24 04:00 40 04/01/24 03:45 37.7 C H 85 16 98 04/01/24 03:32 16 40 04/01/24 03:30 108/69 04/01/24 03:30 37.7 C H 86 16 100 04/01/24 03:15 37.6 C H 88 16 100 04/01/24 03:00 37.6 C H 83 16 97 04/01/24 03:00 105/73 04/01/24 02:46 37.6 C H 86 14 100 04/01/24 02:30 106/71 04/01/24 02:30 37.6 C H 85 16 100 04/01/24 02:26 37.6 C H 84 16 98 04/01/24 02:00 107/72 04/01/24 02:00 37.6 C H 88 16 100 04/01/24 01:45 37.6 C H 89 16 100 04/01/24 01:30 99/67 L 04/01/24 01:30 37.7 C H 87 16 98 04/01/24 01:15 37.7 C H 79 16 100 04/01/24 01:00 105/71 04/01/24 01:00 37.7 C H 87 16 100 PG Care Time/CCT Total # of Minutes Spent Total Time Spent with Patient: Total time spent is greater than 50% in coordination of care (as documented) at patient's floor/unit and/or counseling patient: Coding Level of Care Code 04898 IN/OBS CONSULT LVL 4,60M Diagnoses Cholangitis K83.09 Dilated bile duct K83.8
[2024-04-01 13:48] LABS: HBSAG NON-REACTIVE (NON-REACTIVE); Hepatitis A Antibody IgM NON-REACTIVE (NON-REACTIVE); Hepatitis B Core Antibody IgM NON-REACTIVE (NON-REACTIVE)
--- NOTE | 2024-04-01 14:25 | Discharge Summary ---
Date of Service April 01, 2024 Admission HPI Per Admitting Provider 38-year-old male with past med history significant for ALS s/p trach, ventilator, G-tube placement, chronic pancreatitis , history of pancreatic pseudocyst and pancreatic necrosis, chronic respiratory failure requiring c ontinuous mechanical ventilation through tracheostomy, allergic rhinitis, impaired mobility and ADLs , history of severe sepsis pneumonia, history of isolated atrial fibrillation, cardiac murmur, dry eye syndrome, history of left ventricular systolic dysfunction, slow gastric motility, s/p feeding tube who lives at home with his was brought in because of tachycardia and flushing.Patient is nonverbal He answers with flicking of his eyes. One flick means yes and two flicks means no.. Around 10 AM he complained of chest pain and abdominal pain. Home health nurse give him morphine at 1 PM. After that he developed flushing all over his body and was tachycardic heart rate in 140s per and was brought to ER.. As per the patient is somewhat constipated lately. He can void sometimes and sometimes have to straight cath per . Seems he is not micturating much lately. As per patient is tolerating tube feeds okay. Denies any bloody stools. Afebrile. No cough. No vomiting as per . In the ER his sugars were running very high. In the ER when he came in he was hypotensive and tachycardic. Initially was treated for allergic reaction with H2 gilmer and IV steroids and Benadryl as was having flushing and received morphine prior to coming to ER.. Labs showed elevated white count and elevated blood sugars,started on insulin drip. Currently hemodynamics are okay. Patient flicks eyes yes for headache, nausea, chest pain, abdominal pain. patient had prolonged hospital stay in August 2022 with severe sepsis with s/p trach exchange and right lower lobe bronchial washings and cultures grew MSSA. sputum cultures grew pansensitive serratia. Past medical history. As mentioned above. past surgical history. G-tube. EGD. Aspiration of abscess. Replace G-tube. Social history. . No smoking. No alcohol use. Currently no drug use. Family history. Brother has chronic rhinitis. Father has idiopathic pulmonary fibrosis. Paternal uncle has asthma. Admission Exam Per Admitting Provider General- No in acute distress Head- atraumatic Neck- s/p trach. trach site no erythema or drainage seen. Lungs- clear to auscultation no wheezing or crackles Heart- regular rate and rhythm; no murmur, no gallop. Abdomen- sluggish bowel sounds, soft, G tube site no erythema seen Extremities- no pretibial edema, no erythema seen Neuro- Non verbal Only answers by flicking the eyes.;cannot move extremities Skin- Flushing seen in upper body and upper extremities Principal Diagnosis Complicated UTI Sepsis Multiple organ dysfunction Diabetic ketoacidosis/HHNK overlap Hyponatremia Acute cholangitis Acute kidney injury Metabolic encephalopathy Transaminitis Discharge Exam General- No in acute distress Head- atraumatic Neck- s/p trach. trach site no erythema or drainage seen. Lungs- clear to auscultation no wheezing, occ crackles Heart- regular rate and rhythm; no murmur, no gallop. Abdomen- sluggish bowel sounds, soft, G tube site no erythema seen Extremities- trace pretibial edema, no erythema seen Neuro- Non verbal Only answers by flicking the eyes.;cannot move extremities Discharge Data Allergies Allergy/AdvReac Type Severity Reaction Status Date / Time hydromorphone [From Dilaudid] AdvReac makes pt Verified 03/31/24 00:58 retain urine Consultations 03/31/24 00:28 ED Decision to Admit Stat 03/31/24 00:47 Consult Slot Operations Manager Routine 04/01/24 09:07 Consult General Surgery Routine 04/01/24 09:34 Consult Gastroenterology Routine 04/01/24 12:44 Burn CD for patient Stat Ordered Studies 03/30/24 21:01 CT abd pelvis IV con only Stat CT angio chest PE protocol Stat 04/01/24 07:00 US portal veins doppler [US duplex portal hepatic veins] Routine 04/01/24 09:29 US gallbladder Stat Hospital Course (1) Cholangitis: Plan 38 yo M w/ PMH of ALS s/p trach & ventilator, G-tube placement, chronic pancreatitis, pancreatic pseudocyst and pancreatic necrosis, chronic respiratory failure requiring continuous mechanical ventilation through tracheostomy, allergic rhinitis, impaired mobility and ADLs, severe sepsis 2/2 pneumonia, isolated atrial fibrillation, cardiac murmur, dry eye syndrome, left ventricular systolic dysfunction, slow gastric motility, s/p feeding tube who lives at home with his was brought in because of tachycardia and flushing apparently after morphine dose by HH at home. patient communicates with flicking of eyes [1 Flick means Yes and 2 Flicks means no]. He was noted to be in DKA and septic shock 2/2 uti at presentation. He was admitted in ICU. He was managed for the following: Complicated UTI: Admitting UA suggestive of UTI Septic shock: Tachycardia and elevated WBC at presentation. Lactate and procalcitonin also elevated Multiple organ dysfunction: Encephalopathy/HENRI/elevated LFTs. Likely secondary to septic shock Septic shock likely secondary to UTI at presentation, complicated by hypovolemia secondary to DKA CTA chest and CTAP w/ no acute findings. Continue IV fluid resuscitation, trend lactate, MAP goal greater than 65 mmHg. Patient started on Zosyn 03/31 and vancomycin 03/31, continue zosyn, follow admitting blood and urine culture. Patient being managed in ICU. Acute cholangitis: fever, elevated lft and bile duct dilatation in the abd imagning, GI /Gen Sx evaled. Being transferred for ERCP. Diabetic ketoacidosis/hyperglycemic hyperosmolar nonketotic coma: likely overlap Admitting labs: Blood glucose 817, A1c 7.6, anion gap 19, urine positive for ketones Status post aggressive IV fluid, currently under insulin drip, anion gap has closed, being closely managed in ICU. Hypernatremia: Admitting labosmolality 395, sodium 157. status post IV fluid, sodium level gradually dropping, latest 150.slow correction w/ close lab monitoring. pt now on bicarb drip, in icu. Acute kidney injury: Baseline creatinine less than 0.2, admitting creatinine of 0.48. Status post IV fluid. Resolved. Metabolic encephalopathy: Likely secondary to acute illness, expect to improve with improvement in the acute illness. Transaminitis: Likely secondary to ac cholangitis, ercp eval at tertiary center. Other chronic medical conditions: Continue with/resume home meds as and when able ALS s/p trach chronic respiratory requiring continuous mechanical ventilation through trach on ventilator Vent management as per critical care/pulm nutrition: on tube feeds chronic systolic CHF mild global hypokinesis on echo done in 12/2021 EF of 45 to 50%. grade 1dysfunction. monitor for volume overload DVT prophylaxis: heparin subcu disposition: ICU full code Patient is being discharged to tertiary [place] for advanced procedural intervention. Patient's aware and is agreeable. Home Health Attestation I certify that this patient is under my care and that I, or a physicians dental ceramist assistant working with me, had a face to-face encounter that meets the home health [id number] encounter requirements with this patient. The encounter with the patient was in whole, or in part, for the following medical condition, which is the primary reason for home health care (list medical condition): I certify that, based on my findings, the following services are medically necessary home health services: My clinical findings support the need for the above services because: Further, I certify that my clinical findings support that this patient is homebound (i.e. absences from home require considerable and taxing effort and are for medical reasons or voodoo services or infrequently or of short duration when for other reasons) because: Certification for Home Health Services: Based on the above findings, I certify that this patient is confined to the home and needs intermittent senior care care, physical therapy and/or speech therapy or continues to need occupational therapy. The patient is under my care, and I have initiated the establishment of the plan of care. This patient will be followed by a physician who will periodically review the plan of care. Total Time Total Time Spent Total Time Spent (In Minutes): 45 Discharge Plan Discharge Items Patient Disposition: Transfer [place] [facility] Reason For Visit: DKA/HHS, HYPERNATREMIA Discharge Diagnosis: Complicated UTI Sepsis Multiple organ dysfunction Diabetic ketoacidosis/HHNK overlap Hyponatremia Acute cholangitis Acute kidney injury Metabolic encephalopathy Transaminitis Activity: As commented below Activity Comment: per [facility]. Non-emergency contact: Primary Care Provider Call non-emergency contact if: you have any medication questions Follow-up/Referrals: Mikala Cyr NP [Primary Care Provider] - Diet: Nothing by Mouth Addtl Attending Provider Instructions: You are being transferred to [facility] due to need for Advanced procedure. Your prior to arrival Home medications will be continued as it is in the discharge med rec and your current inpatient medications will be copied and pasted here for the sake of comparison. Current Inpatient Medications Acetaminophen (Acetaminophen Susp 325 Mg/10.15 Ml Udc) 650 mg PEG Q6H PRN PRN Reason: Pain, Mild Stop: 04/30/24 01:26 Last Admin: 03/31/24 20:01 Dose: 650 mg Artificial Tears (Artificial Tears) 1 drops OP QID PRN PRN Reason: Dry Eyes Stop: 04/30/24 01:39 Atropine Sulfate (Atropine Sulfate 1% Op Soln 5 Ml Btl) 1 drops SL QID PRN PRN Reason: increased secretions Stop: 04/30/24 01:26 Dextrose (Dextrose 50% 50 Ml Syringe) 25 - 50 ml IV UD PRN; Protocol PRN Reason: Hypoglycemia Protocol Stop: 04/29/24 22:18 Famotidine (Famotidine Susp 20 Mg/2.5 Ml Udp) 20 mg NG BID MYNOR Stop: 04/30/24 08:59 Last Admin: 04/01/24 08:29 Dose: 20 mg Glucagon (Glucagon For Inj 1 Mg Vial) 1 mg SQ UD PRN; Protocol PRN Reason: Hypoglycemia Protocol Stop: 04/29/24 22:18 Glucose (Glucose 40% Gel 15 Gm Tube) 15 - 30 gm PO UD PRN; Protocol PRN Reason: Hypoglycemia Protocol Stop: 04/29/24 22:18 Glucose (Glucose 10 Tab/Tube) 4 - 8 tab PO UD PRN; Protocol PRN Reason: Hypoglycemia Treatment Stop: 04/29/24 22:18 Heparin Sodium (Porcine) (Heparin Sod 5,000 Unit/0.5 Ml Vial) 5,000 units SQ Q8 MYNOR Stop: 04/30/24 05:59 Last Admin: 04/01/24 05:56 Dose: 5,000 units Hydrocortisone (Hydrocortisone 2.5% Oint 20 Gm Tube) 1 appln TOP BID PRN PRN Reason: Itching Stop: 04/30/24 01:26 Insulin Human Regular 250 (units/ Sodium Chloride) 250 mls @ 8 mls/hr IV .Q24H MYNOR; Protocol Stop: 04/29/24 22:29 Last Titration: 04/01/24 14:13 Dose: 9.6 units/hr, 9.6 mls/hr Piperacillin Sod/Tazobactam (Sod 4.5 gm/ Dextrose) 100 mls @ 25 mls/hr IV Q8H MYNOR; Protocol Stop: 04/10/24 05:59 Last Infusion: 04/01/24 09:57 Dose: Infused Sodium Bicarbonate 150 meq/ (Dextrose) 1,150 mls @ 100 mls/hr IV .[id number] MYNOR; Protocol Stop: 04/30/24 14:59 Last Admin: 04/01/24 14:15 Dose: 100 mls/hr Insulin Aspart (Insulin Aspart Per Unit Charge) 0 units SC ACHS [facility] Stop: 04/30/24 07:29 Last Admin: 04/01/24 12:46 Dose: Not Given Midodrine (Midodrine Hcl 2.5 Mg Tab) 5 mg PO TIDM MYNOR Stop: 04/30/24 07:59 Last Admin: 04/01/24 12:50 Dose: 5 mg Miscellaneous (Carbohydrates For Hypoglycemia ) 15 - 30 gm PO UD PRN PRN Reason: Hypoglycemia Protocol Stop: 04/29/24 22:18 Miscellaneous (Ciclopirox~Order Awaiting Action) 1 each N/A QS [facility] Stop: 04/30/24 07:59 Last Admin: 04/01/24 08:31 Dose: Not Given Nystatin (Nystatin Powder 15gm Btl) 1 appln EXT BID [facility] Stop: 04/30/24 08:59 Last Admin: 04/01/24 08:30 Dose: 1 appln Petrolatum (Butt Paste (Zinc Oxide 16%) 171 Appln/57 Gm Jar) 1 appln TOP TID PRN PRN Reason: SORES Stop: 04/30/24 01:40 Polyethylene Glycol (Polyethylene (Miralax) 17 Gm Pack) 17 gm PEG DAILY PRN PRN Reason: Constipation Stop: 04/30/24 01:26 Potassium Phosphate (Pot Phosphate Monobasic W/ Sod Tab) 2 tab PO BID [facility] Stop: 05/01/24 08:59 Last Admin: 04/01/24 08:33 Dose: 2 tab Sennosides (Sennosides 8.8 Mg/5 Ml Udc) 17.6 mg PEG MoWeFr [facility] Stop: 04/30/24 08:59 Last Admin: 03/31/24 10:05 Dose: 17.6 mg Sterile Water (Tube Feeding Water Flush) 100 ml GT Q6H [facility] Stop: 04/30/24 11:59 Last Admin: 04/01/24 12:50 Dose: 100 ml Pending Studies at Discharge: Yes Stand-Alone Forms: [facility] Skilled Items Patient informed of condition?: Yes DNR: No Discharge Level of Care: Other Communicable Disease: No Discharge Prognosis: Other Lines: Peripheral IV Urinary Catheter: No Medications and DC Order Prescriptions: Continued acetaminophen [Children's Acetaminophen] 160 mg/5 mL Liquid 640 mg feeding tube Q6 PRN (Reason: Pain, Mild) Rx Instructions: administer 20 ml into j=tube zinc oxide 20 % Ointment 1 applic TOPICAL TID PRN (Reason: SORES) Rx Instructions: apply to buttocks for bed sores nystatin 100,000 unit/gram Powder 1 applic TOPICAL BID Rx Instructions: apply to groin atropine 1 % Drops 1 drp sublingual QID PRN (Reason: increased secretions) famotidine 40 mg/5 mL (8 mg/mL) Suspension 20 mg feeding tube BID Rx Instructions: use j-tube midodrine 5 mg Tablet 5 mg feeding tube TID Rx Instructions: administer into j-tub morning,noon and bedtime polyethylene glycol 3350 [Miralax] 17 gram/dose Powder 17 g feeding tube DAILY PRN (Reason: Constipation) Rx Instructions: dissolve into 8 oz of water and administer into j-tube A,D-aloe glim-cqledybscn-j.pet Ointment 1 ea TOPICAL BID PRN (Reason: scrotal area) carboxymethylcellulose sodium 0.5 % Drops 1 drp OPB UD PRN (Reason: Dry Eye(S)) Artificial Tears (PF) 0.1-0.3 % Dropperette 1 drp OPB QID PRN (Reason: Dry Eyes) morphine 10 mg/5 mL Solution 5 mg feeding tube Q2H PRN (Reason: Pain) Acidophilus Capsule 2 cap feeding tube DAILY hydrocortisone 2.5 % ointment 1 applic TOPICAL BID PRN (Reason: Itching) Rx Instructions: scrotal area Remedy Phytoplex Z-Guard 57 % Paste 1 ea TOPICAL BID PRN (Reason: protectant) Cardeeo 1.4 Liquid Vanilla 1 ea G-tube 5XD ciclopirox [Ciclodan] 0.77 % Cream 1 applic topical 3XWK Rx Instructions: tues/thurs/sat ibuprofen 100 mg/5 mL Suspension 200 mg feeding tube TID PRN (Reason: Fever Or Pain) senna leaf extract [senna] 176 mg/5 mL syrup 15 ml feeding tube 3XWK Rx Instructions: tues/thurs/sat coenzyme Q10 100 mg/5 mL Syrup 10 mg feeding tube DAILY Discharge Orders: Discharge Order (Routine); Ordered 04/01/24 Ordered By: Rl Diego Admission Data Admit Date/Time: 03/31/24 00:47 Attending Provider: Rl Diego Admit Provider: Raleigh Calvert Primary Care Provider: Mikala Cyr Other Providers: Raleigh Calvert; Archie Patton; [facility]; Mireya Clements; Abelardo Stacy; Santi Faith; Lexx Niño; Yaya Mccartney; Norma Lanza; Vasu Ambrocio; Simone Santos; Sejal Serna; Andrew Danielle; Thelma Funk; Devin Alfaro; Cristina Scales; Teresa Martin; Negar Scott; Lily Phillip; Delia Pham; Josh De Los Santos; Chris Lee; Isacc Salinas; Aileen Greer; Salvador Klein S; Ruchi Wu; Mariela Junior; Nicole Nunez; Abimbola Medrano; Gayle Gomez; Rodney Silva; Hernan Craig; Yi Hoover; Milton Lehman Jr
== END 2024-04-01 16:19 | DRG 871 ==
LOC: ED 20:45 → SUATTDRO 03-31 00:47 → 1E 03-31 00:47

== ENCOUNTER 2024-04-18 19:10 | Inpatient (IN) ==
[2024-04-18] MEDS ORDERED: VANCOMYCIN CONSULT ACTIVE PRN (19:42)
[2024-04-18] MEDS: ACETAMINOPHEN 1,000 MG/100 ML VIAL IV STA (20:12)
[2024-04-18 20:20] LABS: Base Excess VBG 8.8 mEq/L; HCO3 VBG 28 mmol/L; Oxygen Saturation VBG 85.3 %; PCO2 VBG 23 mmHg (38-50); PO2 VBG 48 mmHg; pH VBG 7.69 (7.36-7.41)
[2024-04-18] MEDS: SODIUM CHLORIDE 0.9% 1,000 ML IV ONE ×2 (20:21→21:31)
[2024-04-18] MEDS: PIPERACILLIN/TAZOBACTAM 4.5 GM/120 ML BAG IV ONE (20:36)
[2024-04-18 20:38] LABS: Hematocrit (blood only) 40.8 % (42.0-52.0); Hemoglobin 13.9 g/dl (14.0-18.0); Mean Corpuscular Hemoglobin 27.9 pg (25.0-34.0); Mean Corpuscular Hgb Conc 34.1 g/dL (32.0-36.0); Mean Corpuscular Volume 81.8 fL (80.0-100.0); Mean Platelet Volume 9.1 fL (9.4-12.4); Platelet Count 526 K/uL (130-400); RDW Standard Deviation 51.8 fL (36.4-46.3); Red Blood Count 4.99 M/uL (4.70-6.10); White Blood Count 34.29 K/ul (4.8-10.8)
[2024-04-18 20:46] LABS: Basophils # (auto) 0.06 K/uL (0.00-0.20); Basophils % (auto) 0.2 %; Eosinophils # (auto) 0.02 K/uL (0.00-0.50); Eosinophils % (auto) 0.1 %; Hypersegmented Neutrophils 1+; Immature Granulocytes # (auto) 0.64 K/uL (0.01-0.20); Immature Granulocytes % (auto) 1.9 %; Lymphocytes # (auto) 3.17 K/uL (1.20-3.40); Lymphocytes % (auto) 9.2 %; Monocytes # (auto) 1.56 K/uL (0.11-0.59); Monocytes % (auto) 4.5 %; Neutrophils # (auto) 28.84 K/uL (1.40-6.50); Neutrophils % (auto) 84.1 %; Polychromasia 1+
[2024-04-18 20:51] LABS: Appearance Urine Cloudy (Clear); Bacteria Urine Automated 4+ (None Seen); Bilirubin Urine Negative (Negative); Blood Urine Trace (Negative); Color Urine Dark Yellow; Epithelial Cell Urine Auto 0-2 /hpf (0-2); Glucose Urine UA Negative (Negative); Ketones Urine Trace (Negative); Leukocyte Esterase Urine 3+ (Negative); Nitrite Urine Negative (Negative); Protein Urine 2+ (Negative); Specific Gravity Urine 1.021 (1.000-1.030); Urobilinogen Urine Negative (Negative); WBC Urine Automated >50 /hpf (0-5)
[2024-04-18 20:54] LABS: INR 1.2 (0.9-1.1); Prothrombin Time 12.8 Seconds (9.0-12.0)
--- NOTE | 2024-04-18 20:58 | Emergency Department Note ---
Impression & Plan Sepsis, ALS (amyotrophic lateral sclerosis), Dependent on ventilator, Acute UTI, Pneumonia, Pancreatitis ED Provider Note NAME: YI ROBB AGE: 38 SEX: M : 1985 ARRIVES VIA: Ambulance INFORMANT: Patient ED PROVIDER(S): Yasmani Francisco MD CHIEF COMPLAINT: sepsis PLAN: Disposition: Admit MEDICAL DECISION MAKING: The patient is a 38-year-old gentleman with a past medical history of severely progressed ALS, vent dependent with history of G-J-tube with recent mission to this facility for sepsis related to UTI and then transferred to [facility] for concern for possible cholangitis and ERCP who presents to the emergency department via EMS accompanied by his partner for evaluation of worsening malaise and abdominal pain concern for recurrence of UTI. They report that when they were transferred to [place] on his last hospitalization they understand that they felt an ERCP would be too high risk for the patient as this may cause him to worsen and to their knowledge they understood that the ductal obstruction had resolved spontaneously. They report he was discharged to home last Friday but since his discharge has continued to feel unwell and off of his baseline with continued abdominal pain. They report that he was reluctant to return to the hospital because he did not want to "get stuck in the hospital again as the describes difficulty obtaining transportation from [place] back home which took a number of days and then again she transported him herself. She reports that they had a home nurse come to their house who convinced the patient to come to the hospital suggesting that he may have a "simple infection" in which he may be simply given antibiotic to go home. On evaluation the patient is acute on chronically ill-appearing but no acute distress, febrile to 37.9 with heart in the 120s and blood pressure 90s/80s. O2 saturation is mid 90s and greater on his home mechanical ventilation with FiO2 of 30%. He has rhonchi of bilateral mid to lower lung almanzar. Flaccid paralysis is baseline for the patient in the setting of his ALS. WBC 34.2 K with neutrophil predominance and left shift, suspicious for sepsis. H/H similar to prior. Platelets 526 K, nonspecific and likely reactive. VBG with pH of 7.69 with pCO2 of 23 likely reflecting component of respiratory compensation. Potassium is 2.9 and bicarbonate is 26 without metabolic acidosis. Glucose is 174. Lactic acid 3.3. Total bilirubin is 1.1 with direct bilirubin 0.3, decreased from prior values of 1.6 and 0.5, respectively. AST and ALT are not elevated which has improved from the patient's prior hospitalization. Initial high-sensitivity troponin is 27, nonspecific in setting of patient's sepsis. Lipase is mildly above normal at 139, nonspecific. Procalcitonin is elevated at 64 consistent with suspected sepsis. UA is again consistent with infection with WBCs and 4+ bacteria on straight catheterization. Patient was treated empirically with IV Zosyn and vancomycin for sepsis. He was given 2 L of normal saline for initial IV fluid hydration. An additional 500 cc of normal saline administered for complete 30 cc/kg resuscitation. Patient was given his home scheduled dose of midodrine and blood pressure did improve and remained stable. CT imaging was obtained of the chest and abdomen pelvis. CTA of the chest was negative for PE but describes new airspace opacity of the lingula with a 4 cm cavitary lesion suggestive of cavitary pneumonia. TB is listed as a consideration but is not specific. Patient has no history of risk factors to suggest this as a possibility. However per records has had a history of MSSA sputum culture. CT of the abdomen pelvis demonstrates partially occlusive thrombus of the portal vein and splenic vein in the setting of inflammatory stranding surrounding the pancreas which is concerning for acute edematous pancreatitis with a 1.2 cm fluid collection of the uncinate process consistent with an acute peripancreatic fluid collection. Additionally noticed bladder thickening consistent with the patient cystitis. Findings were reviewed with stat rad radiology and additional history provided given her his recent admission. She further describes mild enhancement and irregularity of the distal CBD without definite evidence of filling defect. This is concerning for possible ascending cholangitis. Case was discussed with Dr. Pritchett, GI on-call. Appreciate consultation recommendations. Given the patient's LFTs have improved with normal AST and ALT today and bilirubin which also has improved from his last admission with report from the patient's partner that he had an MRCP performed at the [facility] in [place] on his last admission/transfer which did not suggest obstruction feels there is no indication for ERCP at this time and so reasonable to admit the patient to this facility for continued management of sepsis related to pneumonia and UTI. Recommends MRCP to further characterize CT findings and to continue to trend LFTs. If LFTs were to upward trend and/or MRCP would be suggestive of obstruction/cholangitis and then reconsideration of ERCP would be warranted at that time and there by me for transfer. However he will be available for inpatient team consultation. Agrees with heparin for splenic/portal vein thrombosis. Case was discussed with Dmitriy Escoto hospitalist who will evaluate the patient for admission. GI recommendations discussed. Further management per admitting team. Triage Nursing notes reviewed and agree them. Prior/external medical records reviewed Vital Signs: reviewed Differential diagnosis: Sepsis, UTI, pneumonia, metabolic, electrolyte abnormalities, cardiac sources, intracerebral event, toxicologic, neurologic, as well as other pathologies. ER treatment provided: See below. Diagnostics interpreted by me: ECG: Sinus tachycardia, 123 bpm, no ectopy, no overt ST elevation or depression, QTc 512, QRS 96. Cardiac Monitoring: An order for continuous cardiac monitoring was placed and demonstrated Sinus tachycardia, 123 bpm, no ectopy. Laboratory studies: See below Imaging studies: See below Consultation(s): Dr. Pritchett, GI on-call. Dmitriy Escoto hospitalist. HPI: TThe patient is a 38-year-old gentleman with a past medical history of severely progressed ALS, vent dependent with history of G-J-tube with recent mission to this facility for sepsis related to UTI and then transferred to [facility] for concern for possible cholangitis and ERCP who presents to the emergency department via EMS accompanied by his partner for evaluation of worsening malaise and abdominal pain concern for recurrence of UTI. They report that when they were transferred to [place] on his last hospitalization they understand that they felt an ERCP would be too high risk for the patient as this may cause him to worsen and to their knowledge they understood that the ductal obstruction had resolved spontaneously. They report he was discharged to home last Friday but since his discharge has continued to feel unwell and off of his baseline with continued abdominal pain. They report that he was reluctant to return to the hospital because he did not want to "get stuck in the hospital again as the describes difficulty obtaining transportation from [place] back home which took a number of days and then again she transported him herself. She reports that they had a home nurse come to their house who convinced the patient to come to the hospital suggesting that he may have a "simple infection" in which he may be simply given antibiotic to go home. ROS: See above HPI for pertinent positives & negatives. A total of 10 systems reviewed and were otherwise negative. VITALS:See Below PHYSICAL EXAMINATION: GENERAL: Awake, alert, acute on chronically ill-appearing. HENT: Normocephalic, atraumatic. Oropharynx with dry mucous membranes and otherwise unremarkable. EYES: Normal conjunctiva. Sclera non-icteric. NECK: Supple. No nuchal rigidity. FROM. No JVD. Tracheostomy present. RESPIRATORY: Mechanical ventilation. Rhonchi of bilateral mid to lower lung almanzar. CARDIAC: Tachycardic rate, normal rhythm. Extremities warm and well perfused. Pulses equal. ABDOMEN: Soft, non-distended. No tenderness to palpation. No rebound or guarding. GJ tube present. MUSCULOSKELETAL: Chest examination reveals no tenderness. The back is symmetrical on inspection without obvious abnormality. There is no CVA tenderness to palpation. No joint edema. LOWER EXTREMITIES: Calves are equal size bilaterally and non-tender. No edema. No discoloration. NEURO: Flaccid paralysis at patient's baseline for ALS. SKIN: No rash or jaundice noted. ED COURSE: Critical Care: I have personally spent greater than 65 minutes of critical care time in the direct management of this patient. This includes bedside care, interpretation of diagnostic studies, and testing, discussion with consultants, patient, and family members, and other required patient management activities. This 65 minutes is in excess of all separately billable procedures. Yasmani Francisco MD Past Med/Surg History Problem List Pancreatitis (Acute) Pneumonia (Acute) Acute UTI (Acute) Dependent on ventilator (Acute) Sepsis (Acute) Dilated bile duct Cholangitis Acute dehydration (Acute) DKA (diabetic ketoacidosis) (Acute) Sepsis (Acute) UTI (urinary tract infection) Elevated liver enzymes Septic shock HHNC (hyperglycemic hyperosmolar nonketotic coma) Encounter for pre-operative examination Ascites Ventilator dependence (Acute) Gastritis (Acute) DVT prophylaxis ALS (amyotrophic lateral sclerosis) (Acute) History of tracheostomy (Acute) currently in place; last changed 10/31/22 with a new Shley tracheostomy #8 tube Chronic respiratory failure (Acute) CURRENT TRACH 8DCT INTACT>8.5 WITH HUMIDIFICATION *REQUIRED SUCTIONED EVERY 20 MINUTES ON AVERAGE Atrial fibrillation with RVR hx of; per Dr. Bone's note:" Telemetry reveals that on 12/18/2021 at 22:12 patient reverted from sinus tachycardia at about 100 bpm to atrial fibrillation in the 150s. He subsequently converted to sinus rhythm while on an amiodarone infusion at 23:14."--no issues since Medical History Pressure ulcer CLOSED ON BUTTOCK Tracheostomy in place 12/2021 ORIGINALLY PLACED (LAST CHANGED 10/2022) Hypotension NO CARDS Hx of pancreatitis Pseudocyst of pancreas Left ventricular systolic dysfunction Uses feeding tube G-J TUBE USED FOR MEDS AND FEEDINGS Slow gastric motility D/T ALS Dry eye syndrome Cardiac murmur AN Sleep apnea TRILEGY MACHINE WITH 2.5L (WEARS CONT) ALS (amyotrophic lateral sclerosis) DX FEBRUARY 2014>CAN NOT MOVE Surgical History History of esophagogastroduodenoscopy (EGD) Hx of LASIK PRK S/P percutaneous endoscopic gastrostomy (PEG) tube placement History of tooth extraction History of herniorrhaphy Family History Mother Family history of diabetes mellitus Other No family history of adverse response to anesthesia Social History Smoking Status: Never smoker Second Hand Exposure: No; Do You Dip or Chew Tobacco: No; Hx Alcohol Use: No Hx Substance Use: No Preferred Language: Angolan Communication Ability: Effective Communication Ability Comment: pt can not talk--uses electronic table to communicate; signs consents Painter And Decorator Apprentice Required: No Beliefs That Will Affect Care: None marital status: Current Living Situation: Spouse Current Living Situation Comment: has 2 personal aides to help in home How many Children do You have: 3 Other Information That Helps Us Care for You: No Feels Safe at Home: Yes Safety Concerns: Feels Safe At This Time Assistive Devices: Hospital Bed, Mechanical Lift and Oxygen - Continuous Assistive Devices Comment: trach/vent/peg tube Allergies Allergies Allergy/AdvReac Type Severity Reaction Status Date / Time hydromorphone [From Dilaudid] AdvReac makes pt Verified 03/31/24 00:58 retain urine Home Meds Home Medications Medication Instructions Recorded Confirmed acetaminophen 160 mg/5 mL oral 640 mg feeding tube Q6 PRN Pain, 05/07/22 04/19/24 liquid (Children's Acetaminophen) Mild atropine 1 % eye drops 1 drp sublingual QID PRN increased 05/07/22 04/19/24 secretions nystatin 100,000 unit/gram topical 1 applic topical BID 05/07/22 04/19/24 powder zinc oxide 20 % topical ointment 1 applic topical TID PRN SORES 05/07/22 04/19/24 A,D-aloe uvvl-ofyoalbyru-k.pet 1 ea topical BID PRN scrotal area 06/10/22 04/19/24 topical ointment carboxymethylcellulose sodium 0.5 1 drp OPB UD PRN Dry Eye(S) 06/10/22 04/19/24 % eye drops dextran 70-hypromellose (PF) 0.1 1 drp OPB QID PRN Dry Eyes 06/10/22 04/19/24 %-0.3 % eye drops in a dropperette (Artificial Tears (PF)) famotidine 40 mg/5 mL (8 mg/mL) 20 mg feeding tube BID 06/10/22 04/19/24 oral suspension midodrine 5 mg tablet 5 mg feeding tube TID 06/10/22 04/19/24 polyethylene glycol 3350 17 17 g feeding tube DAILY PRN 06/10/22 04/19/24 gram/dose oral powder (Miralax) Constipation morphine 10 mg/5 mL oral solution 5 mg feeding tube Q2H PRN Pain 10/30/22 04/19/24 [place] 1.4 Liquid Vanilla 1 ea G-tube 5XD 04/23/23 04/19/24 Lactobacillus acidophilus 2 cap feeding tube DAILY 04/23/23 04/19/24 (Acidophilus capsule) hydrocortisone 2.5 % topical 1 applic topical BID PRN Itching 04/23/23 04/19/24 ointment white petrolatum 57 % topical 1 ea topical BID PRN protectant 04/23/23 04/19/24 paste (Remedy Phytoplex Z-Guard) ciclopirox 0.77 % topical cream 1 applic topical 3XWK 03/31/24 04/19/24 (Ciclodan) coenzyme Q10 100 mg/5 mL oral syrup 10 mg feeding tube DAILY 03/31/24 04/19/24 ibuprofen 100 mg/5 mL oral 200 mg feeding tube TID PRN Fever 03/31/24 04/19/24 suspension Or Pain senna leaf extract 176 mg/5 mL 15 ml feeding tube 3XWK 03/31/24 04/19/24 oral syrup (senna) Results & Data (ED) Vital Signs Vital Signs - 24 hr 04/18/24 19:22 04/18/24 19:23 04/18/24 19:24 Temperature 37.9 C H Temperature Source Rectal Pulse Rate 122 H 124 H Pulse Rate [Apical] Pulse Rate from SpO2 Sensor Pulse Rhythm Pulse Rhythm [Apical] Respiratory Rate 21 Respiratory Effort / Characteristics Mechanically Ventilated Blood Pressure 99/82 L 107/77 Blood Pressure [Right Arm] Blood Pressure Mean 90 87 Blood Pressure Mean [Right Arm] Pulse Oximetry 97 Oxygen Delivery Method Mechanical Vent Fraction of Inspired Oxygen Sepsis Recent Fever Within 48 Hours Yes Sepsis New/Unexplained Change in Mental Status No Sepsis Action Taken by Nursing Physician Notified 04/18/24 19:24 04/18/24 19:24 04/18/24 19:27 Temperature Temperature Source Pulse Rate 123 H 122 H Pulse Rate [Apical] 124 H Pulse Rate from SpO2 Sensor 123 H 123 H Pulse Rhythm Pulse Rhythm [Apical] Regular Respiratory Rate 21 22 24 Respiratory Effort / Characteristics Mechanically Ventilated Blood Pressure Blood Pressure [Right Arm] 107/77 Blood Pressure Mean Blood Pressure Mean [Right Arm] 87 Pulse Oximetry 98 99 97 Oxygen Delivery Method Mechanical Vent Fraction of Inspired Oxygen Sepsis Recent Fever Within 48 Hours Sepsis New/Unexplained Change in Mental Status Sepsis Action Taken by Nursing 04/18/24 19:30 04/18/24 19:41 04/18/24 19:45 Temperature Temperature Source Pulse Rate 123 H Pulse Rate [Apical] Pulse Rate from SpO2 Sensor Pulse Rhythm Regular Pulse Rhythm [Apical] Respiratory Rate 21 Respiratory Effort / Characteristics Blood Pressure 107/77 98/81 L Blood Pressure [Right Arm] Blood Pressure Mean 97 88 Blood Pressure Mean [Right Arm] Pulse Oximetry 98 Oxygen Delivery Method Mechanical Vent Fraction of Inspired Oxygen Sepsis Recent Fever Within 48 Hours Sepsis New/Unexplained Change in Mental Status Sepsis Action Taken by Nursing 04/18/24 19:54 04/18/24 19:57 04/18/24 20:00 Temperature Temperature Source Pulse Rate 122 H 124 H Pulse Rate [Apical] Pulse Rate from SpO2 Sensor 120 H 125 H Pulse Rhythm Pulse Rhythm [Apical] Respiratory Rate 23 21 Respiratory Effort / Characteristics Blood Pressure 89/75 L Blood Pressure [Right Arm] Blood Pressure Mean 78 Blood Pressure Mean [Right Arm] Pulse Oximetry 96 Oxygen Delivery Method Fraction of Inspired Oxygen Sepsis Recent Fever Within 48 Hours Sepsis New/Unexplained Change in Mental Status Sepsis Action Taken by Nursing 04/18/24 20:12 04/18/24 20:15 04/18/24 20:45 Temperature Temperature Source Pulse Rate 124 H 125 H 114 H Pulse Rate [Apical] Pulse Rate from SpO2 Sensor 128 H 124 H 114 H Pulse Rhythm Pulse Rhythm [Apical] Respiratory Rate 19 19 24 Respiratory Effort / Characteristics Blood Pressure 87/73 L Blood Pressure [Right Arm] Blood Pressure Mean 77 Blood Pressure Mean [Right Arm] Pulse Oximetry 95 95 96 Oxygen Delivery Method Fraction of Inspired Oxygen Sepsis Recent Fever Within 48 Hours Sepsis New/Unexplained Change in Mental Status Sepsis Action Taken by Nursing 04/18/24 20:45 04/18/24 21:03 04/18/24 21:15 Temperature Temperature Source Pulse Rate 114 H 110 H Pulse Rate [Apical] Pulse Rate from SpO2 Sensor 114 H 109 H Pulse Rhythm Pulse Rhythm [Apical] Respiratory Rate 15 16 Respiratory Effort / Characteristics Blood Pressure 101/77 104/63 Blood Pressure [Right Arm] Blood Pressure Mean 87 76 Blood Pressure Mean [Right Arm] Pulse Oximetry 90 92 Oxygen Delivery Method Fraction of Inspired Oxygen Sepsis Recent Fever Within 48 Hours Sepsis New/Unexplained Change in Mental Status Sepsis Action Taken by Nursing 04/18/24 21:55 04/18/24 21:57 04/18/24 22:00 Temperature Temperature Source Pulse Rate 92 H Pulse Rate [Apical] 90 Pulse Rate from SpO2 Sensor 90 Pulse Rhythm Pulse Rhythm [Apical] Respiratory Rate 21 18 Respiratory Effort / Characteristics Blood Pressure 112/74 Blood Pressure [Right Arm] 106/72 Blood Pressure Mean 91 Blood Pressure Mean [Right Arm] 83 Pulse Oximetry 98 97 Oxygen Delivery Method Room Air Fraction of Inspired Oxygen Sepsis Recent Fever Within 48 Hours Sepsis New/Unexplained Change in Mental Status Sepsis Action Taken by Nursing 04/18/24 22:09 04/18/24 22:15 04/18/24 22:15 Temperature Temperature Source Pulse Rate 89 85 Pulse Rate [Apical] Pulse Rate from SpO2 Sensor 89 85 Pulse Rhythm Pulse Rhythm [Apical] Respiratory Rate 14 14 Respiratory Effort / Characteristics Blood Pressure 121/75 Blood Pressure [Right Arm] Blood Pressure Mean 86 Blood Pressure Mean [Right Arm] Pulse Oximetry 98 98 Oxygen Delivery Method Fraction of Inspired Oxygen Sepsis Recent Fever Within 48 Hours Sepsis New/Unexplained Change in Mental Status Sepsis Action Taken by Nursing 04/18/24 22:24 04/18/24 23:17 04/18/24 23:30 Temperature 36.5 C Temperature Source Oral Pulse Rate 85 86 Pulse Rate [Apical] 82 Pulse Rate from SpO2 Sensor 86 Pulse Rhythm Pulse Rhythm [Apical] Respiratory Rate 14 14 Respiratory Effort / Characteristics Blood Pressure 89/62 L Blood Pressure [Right Arm] Blood Pressure Mean 72 Blood Pressure Mean [Right Arm] Pulse Oximetry 98 98 Oxygen Delivery Method Fraction of Inspired Oxygen 30 Sepsis Recent Fever Within 48 Hours Sepsis New/Unexplained Change in Mental Status Sepsis Action Taken by Nursing 04/18/24 23:39 04/18/24 23:45 04/19/24 00:15 Temperature Temperature Source Pulse Rate 88 88 Pulse Rate [Apical] Pulse Rate from SpO2 Sensor 88 Pulse Rhythm Pulse Rhythm [Apical] Respiratory Rate 14 Respiratory Effort / Characteristics Blood Pressure 87/64 L 90/65 L Blood Pressure [Right Arm] Blood Pressure Mean 71 72 Blood Pressure Mean [Right Arm] Pulse Oximetry 96 Oxygen Delivery Method Fraction of Inspired Oxygen Sepsis Recent Fever Within 48 Hours Sepsis New/Unexplained Change in Mental Status Sepsis Action Taken by Nursing 04/19/24 01:00 04/19/24 01:39 Temperature Temperature Source Pulse Rate 84 84 Pulse Rate [Apical] Pulse Rate from SpO2 Sensor 84 84 Pulse Rhythm Pulse Rhythm [Apical] Respiratory Rate 14 14 Respiratory Effort / Characteristics Blood Pressure 81/61 L 95/65 L Blood Pressure [Right Arm] Blood Pressure Mean 67 75 Blood Pressure Mean [Right Arm] Pulse Oximetry 95 97 Oxygen Delivery Method Fraction of Inspired Oxygen Sepsis Recent Fever Within 48 Hours Sepsis New/Unexplained Change in Mental Status Sepsis Action Taken by Nursing Laboratory Data Attestation: I reviewed the patient's lab results. 04/18/24 20:08 04/18/24 20:08 Lab Results 04/18/24 04/18/24 04/18/24 Range/Units 20:08 20:25 23:29 WBC 34.29 H* (4.8-10.8) K/ul RBC 4.99 (4.70-6.10) M/uL Hgb 13.9 L (14.0-18.0) g/dl Hct 40.8 L (42.0-52.0) % MCV 81.8 (80.0-100.0) fL MCH 27.9 (25.0-34.0) pg MCHC 34.1 (32.0-36.0) g/dL RDW Std Deviation 51.8 H (36.4-46.3) fL RDW Coeff of Aissatou 18.0 H (11.5-14.5) % Plt Count 526 H (130-400) K/uL MPV 9.1 L (9.4-12.4) fL Immature Gran % (Auto) 1.9 % Neut % (Auto) 84.1 % Lymph % (Auto) 9.2 % [place] % (Auto) 4.5 % Eos % (Auto) 0.1 % Baso % (Auto) 0.2 % Neut # (Auto) 28.84 H (1.40-6.50) K/uL Lymph # (Auto) 3.17 (1.20-3.40) K/uL [place] # (Auto) 1.56 H (0.11-0.59) K/uL Eos # (Auto) 0.02 (0.00-0.50) K/uL Baso # (Auto) 0.06 (0.00-0.20) K/uL Immature Gran # (Auto) 0.64 H (0.01-0.20) K/uL Hypersegmented Neuts 1+ Polychromasia 1+ PT 12.8 H (9.0-12.0) Seconds INR 1.2 H (0.9-1.1) APTT 34 H (21-31) Seconds PTT Ratio 1.3 VBG pH 7.69 H (7.36-7.41) VBG pCO2 23 L (38-50) mmHg VBG pO2 48 mmHg VBG HCO3 28 mmol/L VBG O2 Saturation 85.3 % VBG Base Excess 8.8 mEq/L Sodium 131 L (136-145) mmol/L Potassium 2.9 L (3.5-5.1) mmol/L Chloride 89 L (98-107) mmol/L Carbon Dioxide 26 (21-32) mmol/L Anion Gap 16 H (3-11) BUN 28 H (6-23) mg/dl Creatinine < 0.20 L (0.6-1.4) mg/dl Est Cr Clr Drug Dosing 560.5 ml/min Est GFR ( Amer) > 150.0 ml/min Est GFR (Non-Af Amer) > 150.0 ml/min BUN/Creatinine Ratio TNP Glucose 174 H (70-99(Fasting)) mg/dl Lactate 3.3 H* 1.2 (0.4-2.0) mmol/L Calcium 8.6 (8.6-10.3) mg/dl Phosphorus 2.5 (2.5-4.9) mg/dl Magnesium 3.0 H (1.7-2.4) mg/dl Total Bilirubin 1.1 H (0.2-1.0) mg/dl Direct Bilirubin 0.3 H (0-0.2) mg/dl AST 13 (13-39) U/L ALT 11 (7-52) U/L Alkaline Phosphatase 195 H (34-104) U/L Troponin I High Sens 27.6 H 10.5 D (0-20) pg/ml Total Protein 9.1 H (6.0-8.3) gm/dl Albumin 3.4 (3.4-5.0) gm/dl Lipase 139 H (11-82) U/L Procalcitonin 64.60 H (0-0.5) ng/ml TSH Cancelled 2.102 Urine Color Dark Yellow Urine Appearance Cloudy A (Clear) Urine pH 6.0 (4.5-7.5) Ur Specific [place] 1.021 (1.000-1.030) Urine Protein 2+ H (Negative) Urine Glucose (UA) Negative (Negative) Urine Ketones Trace H (Negative) Urine Blood Trace H (Negative) Urine Nitrite Negative (Negative) Urine Bilirubin Negative (Negative) Urine Urobilinogen Negative (Negative) Ur Leukocyte Esterase 3+ H (Negative) Urine WBC (Auto) >50 H (0-5) /hpf Urine RBC (Auto) 3-5 H (0-2) /hpf U Hyaline Cast (Auto) 3-5 H (0-2) /lpf U Epithel Cells (Auto) 0-2 (0-2) /hpf Urine Bacteria (Auto) 4+ H (None Seen) Administered Medications Heparin Sodium/Dextrose (Heparin Sodium/Dextrose) 25,000 units in 500 mls @ 19 mls/hr IV .Q24H MYNOR; Protocol Stop: 05/19/24 00:44 Last Admin: 04/19/24 01:26 Dose: 950 units/hr, 19 mls/hr Documented By: XAVIER Co-signed By: KATHRYN Potassium Chloride (K Jose Juan / Wtr) 10 meq in 100 mls @ 100 mls/hr IV Q1H MYNOR Stop: 04/19/24 05:14 Last Infusion: 04/19/24 02:13 Dose: Infused Documented By: Admin: 04/19/24 01:13 Dose: 100 mls/hr Documented By: XAVIER Discontinued Medications Heparin Sodium (Porcine) (Heparin Sod (Porcine) 1000 Unit/Ml) 4,000 units IV NOW ONE Stop: 04/19/24 01:01 Last Admin: 04/19/24 01:24 Dose: 4,000 units Documented By: XAVIER Co-signed By: KATHRYN Sodium Chloride (Nss) 1,000 mls @ 999 mls/hr IV .Q1H1M ONE Stop: 04/18/24 20:37 Last Infusion: 04/18/24 21:30 Dose: Infused Documented By: Admin: 04/18/24 20:21 Dose: 999 mls/hr Documented By: MALACHI Acetaminophen (Ofirmev) 1,000 mg in 100 mls @ 400 mls/hr IV NOW STA Stop: 04/18/24 19:51 Last Infusion: 04/18/24 20:37 Dose: Infused Documented By: Admin: 04/18/24 20:12 Dose: 400 mls/hr Documented By: MALACHI Piperacillin Sod/Tazobactam Sod (Zosyn) 4.5 gm in 120 mls @ 30 mls/hr IV NOW ONE Stop: 04/18/24 23:41 Last Infusion: 04/18/24 21:30 Dose: Infused Documented By: Infusion: 04/18/24 21:01 Dose: 200 mls/hr Documented By: Admin: 04/18/24 20:36 Dose: 30 mls/hr Documented By: MALACHI Vancomycin HCl 2,000 mg/ (Sodium Chloride) 540 mls @ 200 mls/hr IV NOW ONE Stop: 04/18/24 22:23 Last Infusion: 04/19/24 01:18 Dose: Infused Documented By: Admin: 04/18/24 21:31 Dose: 200 mls/hr Documented By: MALACHI Sodium Chloride (Nss) 1,000 mls @ 999 mls/hr IV .Q1H1M ONE Stop: 04/18/24 22:26 Last Infusion: 04/18/24 22:58 Dose: Infused Documented By: Admin: 04/18/24 21:31 Dose: 999 mls/hr Documented By: MALACHI Potassium Chloride (K Jose Juan / Wtr) 10 meq in 100 mls @ 100 mls/hr IV Q1H MYNOR Stop: 04/19/24 00:44 Last Infusion: 04/19/24 01:04 Dose: Infused Documented By: Admin: 04/19/24 00:08 Dose: 100 mls/hr Documented By: Infusion: 04/19/24 00:02 Dose: Infused Documented By: Admin: 04/18/24 23:02 Dose: 100 mls/hr Documented By: MALACHI Lactated Ringer's (Lr) 1,000 mls @ 75 mls/hr IV .[id number] ONE Stop: 04/19/24 13:48 Last Admin: 04/19/24 01:13 Dose: 75 mls/hr Documented By: XAVIER Ioversol (Optiray 320 125ml) 120 ml IV ONCE ONE Stop: 04/18/24 21:46 Last Admin: 04/18/24 21:45 Dose: 120 ml Documented By: ELIZABETH Midodrine (Midodrine Hcl 2.5 Mg Tab) 5 mg PO NOW STA Stop: 04/18/24 21:19 Last Admin: 04/18/24 22:20 Dose: 5 mg Documented By: MALACHI Imaging Data Radiologist's Impression: Abdomen/Pelvis CT 04/18/24 21:15 CR Exam(s): CT ABDOMEN + PELVIS With Contrast IV Amt: 120ml opti 320 EXAM: CT Abdomen and Pelvis With Intravenous Contrast CLINICAL HISTORY: Sepsis TECHNIQUE: Axial computed tomography images of the abdomen and pelvis with intravenous contrast. CTDI is 24 mGy and DLP is 1385 mGy-cm. Automated exposure control was utilized for the study. A dose lowering technique was utilized adhering to the principles of ALARA. CONTRAST: Patient received 120ml opti 320 of IV contrast COMPARISON: No relevant prior studies available. FINDINGS: Lung bases: Unremarkable. No mass. No consolidation. ABDOMEN: Liver: Fatty infiltration of the liver. Gallbladder and bile ducts: Unremarkable. No calcified stones. No ductal dilation. Pancreas: There is inflammatory stranding surrounding the pancreas. No ductal dilation. Spleen: Unremarkable. No splenomegaly. Adrenals: Unremarkable. No mass. Kidneys and ureters: Unremarkable. No solid mass. No hydronephrosis. Stomach and bowel: Unremarkable. No obstruction. No mucosal thickening. PELVIS: Appendix: Normal appendix. Bladder: Thickening of the bladder wall is concerning for cystitis. Reproductive: Unremarkable as visualized. ABDOMEN and PELVIS: Intraperitoneal space: Unremarkable. No free air. No significant fluid collection. Bones/joints: There are degenerative changes of the spine. No acute fracture. No dislocation. Soft tissues: Unremarkable. 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 No abdominal aortic aneurysm. Lymph nodes: Unremarkable. No enlarged lymph nodes. IMPRESSION: 1. 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 2. There is inflammatory stranding surrounding the pancreas. This is concerning for acute edematous pancreatitis. A 1.2 cm fluid collection of the uncinate process is consistent with an acute peripancreatic fluid collection. No hemorrhage or necrosis. 3. Thickening of the bladder wall is concerning for cystitis. 4. Fatty infiltration of the liver. Communications: Call Doctor Above results Electronically signed by: Bea Emerson MD 04/18/24 23:23 PM Chest CTA 04/18/24 21:15 CR Exam(s): CTA CHEST IV Amt: 120ml opti 320 EXAM: CT Angiography Chest With Intravenous Contrast CLINICAL HISTORY: Sepsis TECHNIQUE: Axial computed tomographic angiography images of the chest with intravenous contrast. MIPS images were created and reviewed. CTDI is 24 mGy and DLP is 1385 mGy-cm. Automated exposure control was utilized for the study. A dose lowering technique was utilized adhering to the principles of ALARA. MIP reconstructed images were created and reviewed. COMPARISON: CTA chest 03/30/2024 FINDINGS: Pulmonary arteries: Unremarkable. No pulmonary embolus. Aorta: No acute findings. No thoracic aortic aneurysm. Lungs: New airspace opacity of the lingula with a 4 cm cavitary lesion. Bibasilar atelectasis. Pleural space: Unremarkable. No significant effusion. No pneumothorax. Heart: Unremarkable. No cardiomegaly. No significant pericardial effusion. No evidence of RV dysfunction. Bones/joints: No acute fracture. No dislocation. Soft tissues: Unremarkable. Lymph nodes: Unremarkable. No enlarged lymph nodes. Pancreas: There is inflammatory stranding surrounding the tail the pancreas. Tubes, lines and devices: The tracheostomy tube is in good position. IMPRESSION: 1. No pulmonary embolus. 2. New airspace opacity of the lingula with a 4 cm cavitary lesion. This favors cavitary pneumonia, including tuberculosis. 3. There is inflammatory stranding surrounding the tail the pancreas. Clinical correlation is recommended to exclude acute pancreatitis. Communications: Verify Receipt Electronically signed by: Bea Emerson MD 04/18/24 23:16 PM Discharge Plan Visit Data Chief Complaint: Urinary Symptoms Stated Complaint: UTI ED Provider: Yasmani Francisco Discharge Problem: Sepsis, ALS (amyotrophic lateral sclerosis), Dependent on ventilator, Acute UTI, Pneumonia, Pancreatitis Patient Disposition: Admitted As Inpatient Discharge Instructions Interventions: ED Discharge Assessment Last Done: 04/19/24 03:17 Discharge Problem: Sepsis Qualifiers: Sepsis type: sepsis due to unspecified organism Sepsis acute organ dysfunction status: with acute organ dysfunction Severe sepsis acute organ dysfunction type: acute respiratory failure Acute respiratory failure type: with hypoxia Severe sepsis shock status: unspecified Qualified Code(s): A41.9 - Sepsis, unspecified organism Pneumonia Qualifiers: Pneumonia type: due to unspecified organism Laterality: left Lung location: l ower lobe of lung Qualified Code(s): J18.9 - Pneumonia, unspecified organism Pancreatitis Qualifiers: Chronicity: acute Pancreatitis type: unspecified pancreatitis type Acute pancreatitis complication: unspecified Qualified Code(s): K85.90 - Acute pancreatitis without necrosis or infection, unspecified
[2024-04-18 21:03] LABS: Alanine Aminotransferase 11 U/L (7-52); Albumin Level 3.4 gm/dl (3.4-5.0); Alkaline Phosphatase 195 U/L (34-104); Anion Gap 16 (3-11); Aspartate Aminotransferase 13 U/L (13-39); Bilirubin Direct 0.3 mg/dl (0-0.2); Bilirubin,Total 1.1 mg/dl (0.2-1.0); Blood Urea Nitrogen 28 mg/dl (6-23); Calcium 8.6 mg/dl (8.6-10.3); Carbon Dioxide 26 mmol/L (21-32); Chloride 89 mmol/L (98-107); Creatinine Clr Calc Pharmacy 560.5 ml/min; Est GFR (African American) > 150.0 ml/min; Est GFR (Non-African American) > 150.0 ml/min; Glucose 174 mg/dl (70-99(Fasting)); Lipase 139 U/L (11-82); Phosphorus 2.5 mg/dl (2.5-4.9); Potassium 2.9 mmol/L (3.5-5.1); Sodium 131 mmol/L (136-145); Total Protein 9.1 gm/dl (6.0-8.3); Troponin I High Sensitivity 27.6 pg/ml (0-20)
[2024-04-18] MEDS: VANCOMYCIN HCL 2,000 MG in SODIUM CHLORIDE 0.9% 500 ML IV ONE (21:31)
[2024-04-18] MEDS: OPTIRAY 320 125ml IV ONE (21:45)
[2024-04-18] MEDS: MIDODRINE HCL 2.5 MG TAB PO STA (22:20)
[2024-04-18] MEDS: POTASSIUM CHLORIDE / WTR 10 MEQ/100 ML PLCT IV SCH (23:02)
--- NOTE | 2024-04-18 23:18 | CT Scan Report ---
Exam(s): CTA CHEST IV Amt: 120ml opti 320 EXAM: CT Angiography Chest With Intravenous Contrast CLINICAL HISTORY: Sepsis TECHNIQUE: Axial computed tomographic angiography images of the chest with intravenous contrast. MIPS images were created and reviewed. CTDI is 24 mGy and DLP is 1385 mGy-cm. Automated exposure control was utilized for the study. A dose lowering technique was utilized adhering to the principles of ALARA. MIP reconstructed images were created and reviewed. COMPARISON: CTA chest 03/30/2024 FINDINGS: Pulmonary arteries: Unremarkable. No pulmonary embolus. Aorta: No acute findings. No thoracic aortic aneurysm. Lungs: New airspace opacity of the lingula with a 4 cm cavitary lesion. Bibasilar atelectasis. Pleural space: Unremarkable. No significant effusion. No pneumothorax. Heart: Unremarkable. No cardiomegaly. No significant pericardial effusion. No evidence of RV dysfunction. Bones/joints: No acute fracture. No dislocation. Soft tissues: Unremarkable. Lymph nodes: Unremarkable. No enlarged lymph nodes. Pancreas: There is inflammatory stranding surrounding the tail the pancreas. Tubes, lines and devices: The tracheostomy tube is in good position. IMPRESSION: 1. No pulmonary embolus. 2. New airspace opacity of the lingula with a 4 cm cavitary lesion. This favors cavitary pneumonia, including tuberculosis. 3. There is inflammatory stranding surrounding the tail the pancreas. Clinical correlation is recommended to exclude acute pancreatitis. Communications: Verify Receipt Electronically signed by: Bea Emerson MD 04/18/24 23:16 PM
--- NOTE | 2024-04-18 23:24 | CT Scan Report ---
Exam(s): CT ABDOMEN + PELVIS With Contrast IV Amt: 120ml opti 320 EXAM: CT Abdomen and Pelvis With Intravenous Contrast CLINICAL HISTORY: Sepsis TECHNIQUE: Axial computed tomography images of the abdomen and pelvis with intravenous contrast. CTDI is 24 mGy and DLP is 1385 mGy-cm. Automated exposure control was utilized for the study. A dose lowering technique was utilized adhering to the principles of ALARA. CONTRAST: Patient received 120ml opti 320 of IV contrast COMPARISON: No relevant prior studies available. FINDINGS: Lung bases: Unremarkable. No mass. No consolidation. ABDOMEN: Liver: Fatty infiltration of the liver. Gallbladder and bile ducts: Unremarkable. No calcified stones. No ductal dilation. Pancreas: There is inflammatory stranding surrounding the pancreas. No ductal dilation. Spleen: Unremarkable. No splenomegaly. Adrenals: Unremarkable. No mass. Kidneys and ureters: Unremarkable. No solid mass. No hydronephrosis. Stomach and bowel: Unremarkable. No obstruction. No mucosal thickening. PELVIS: Appendix: Normal appendix. Bladder: Thickening of the bladder wall is concerning for cystitis. Reproductive: Unremarkable as visualized. ABDOMEN and PELVIS: Intraperitoneal space: Unremarkable. No free air. No significant fluid collection. Bones/joints: There are degenerative changes of the spine. No acute fracture. No dislocation. Soft tissues: Unremarkable. 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 No abdominal aortic aneurysm. Lymph nodes: Unremarkable. No enlarged lymph nodes. IMPRESSION: 1. 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 2. There is inflammatory stranding surrounding the pancreas. This is concerning for acute edematous pancreatitis. A 1.2 cm fluid collection of the uncinate process is consistent with an acute peripancreatic fluid collection. No hemorrhage or necrosis. 3. Thickening of the bladder wall is concerning for cystitis. 4. Fatty infiltration of the liver. Communications: Call Doctor Above results Electronically signed by: Bea Emerson MD 04/18/24 23:23 PM
[2024-04-19 00:12] LABS: Troponin I High Sensitivity 10.5 pg/ml (0-20)
[2024-04-19] MEDS ORDERED: Heparin IV Adult Wt-Based Low-Dose w/ INITIAL Bolus Protocol IV STA (00:18)
[2024-04-19] MEDS ORDERED: HEPARIN SOD (PORCINE) 1000 UNIT/ML IV ONE (00:34)
[2024-04-19 01:00] LABS: Partial Thromboplastin Ratio 1.3; Partial Thromboplastin Time 34 Seconds (21-31)
[2024-04-19] MEDS: POTASSIUM CHLORIDE / WTR 10 MEQ/100 ML PLCT IV SCH (01:13)
[2024-04-19] MEDS: LACTATED RINGER'S 1,000 ML IV ONE (01:13)
[2024-04-19] MEDS: HEPARIN SOD (PORCINE) 1000 UNIT/ML IV ONE ×3 (01:24→17:05)
[2024-04-19] MEDS: HEPARIN SODIUM/DEXTROSE 25,000 UNITS/500 ML BAG IV SCH (01:26)
--- NOTE | 2024-04-19 01:31 | History & Physical Report ---
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 Pritchett who recommends MRCP for cholangitis concerns and IV heparin for GI thrombosis. Patient okay to stay at [facility] for now as per GI.) Basal insulin, ISS BG goal 140 to 180 DM education DVT prophylaxis. IV heparin Full code as per . Total critical care time was 45 minutes. Patient requesting updates from providers. Ms. Estephania Doll, contact #[phone]. Text document was generated using [employer] voice recognition software. It may contain grammatical or spelling errors. Kindly contact undersigned for clarification of any documentation item in question. History of Present Illness Chief Complaint: Abdominal pain, vomiting Primary Care Provider: Mikala Cyr NP History obtained from patient, family and records. Limited history from patient secondary to tracheostomy Medical history significant for ventilator dependent respiratory failure secondary to ALS, aspiration risk status post PEG tube placement, chronic systolic heart failure (EF 45 to 50%, TTE 2021), history of PAF, PSVT, JOSE ALFREDO, history of pancreatitis/pseudocyst as per records, recent diagnosis DM 2, chronic anemia (baseline hemoglobin of 13). Recent overnight confinement last March 31 to 2023 for septic shock secondary to cholangitis, hyperglycemic crisis. GI and general surgery recommended tertiary center transfer for possible ERCP. Patient transferred to the [facility] in [place] where he stayed for 1 week. MRCP showed that "stone had passed" as per . ERCP not done. Patient completed antibiotic Rx. Patient started having abdominal pain, nausea, emesis symptoms a few days ago at home. No chest pain, no SOB. Junky cough symptoms. worried about aspiration. Patient brought to the ER for evaluation. Lowest SBP of 80s documented at the ER. Vancomycin, Zosyn, IV heparin administered at the ER. Medical History as above Surgical History : PEG tube placement, tracheostomy, herniorrhaphy, dental surgery, eye surgery Family History : Asthma, IPF Personal/Social history : Non-smoker, no EtOH intake, disabled, lives with Allergies Allergy/AdvReac Type Severity Reaction Status Date / Time hydromorphone [From Dilaudid] AdvReac makes pt Verified 03/31/24 00:58 retain urine Home Medications Medication Instructions Recorded Confirmed Type acetaminophen 160 mg/5 mL oral 640 mg feeding tube Q6 PRN Pain, 05/07/22 04/19/24 History liquid (Children's Acetaminophen) Mild atropine 1 % eye drops 1 drp sublingual QID PRN increased 05/07/22 04/19/24 History secretions nystatin 100,000 unit/gram topical 1 applic topical BID 05/07/22 04/19/24 History powder zinc oxide 20 % topical ointment 1 applic topical TID PRN SORES 05/07/22 04/19/24 History A,D-aloe alks-qwzuvnvqmt-p.pet 1 ea topical BID PRN scrotal area 06/10/22 04/19/24 History topical ointment carboxymethylcellulose sodium 0.5 1 drp OPB UD PRN Dry Eye(S) 06/10/22 04/19/24 History % eye drops dextran 70-hypromellose (PF) 0.1 1 drp OPB QID PRN Dry Eyes 06/10/22 04/19/24 History %-0.3 % eye drops in a dropperette (Artificial Tears (PF)) famotidine 40 mg/5 mL (8 mg/mL) 20 mg feeding tube BID 06/10/22 04/19/24 History oral suspension midodrine 5 mg tablet 5 mg feeding tube TID 06/10/22 04/19/24 History polyethylene glycol 3350 17 17 g feeding tube DAILY PRN 06/10/22 04/19/24 History gram/dose oral powder (Miralax) Constipation morphine 10 mg/5 mL oral solution 5 mg feeding tube Q2H PRN Pain 10/30/22 04/19/24 History [place] 1.4 Liquid Vanilla 1 ea G-tube 5XD 04/23/23 04/19/24 History Lactobacillus acidophilus 2 cap feeding tube DAILY 04/23/23 04/19/24 History (Acidophilus capsule) hydrocortisone 2.5 % topical 1 applic topical BID PRN Itching 04/23/23 04/19/24 History ointment white petrolatum 57 % topical 1 ea topical BID PRN protectant 04/23/23 04/19/24 History paste (Remedy Phytoplex Z-Guard) ciclopirox 0.77 % topical cream 1 applic topical 3XWK 03/31/24 04/19/24 History (Ciclodan) coenzyme Q10 100 mg/5 mL oral syrup 10 mg feeding tube DAILY 03/31/24 04/19/24 History ibuprofen 100 mg/5 mL oral 200 mg feeding tube TID PRN Fever 03/31/24 04/19/24 History suspension Or Pain senna leaf extract 176 mg/5 mL 15 ml feeding tube 3XWK 03/31/24 04/19/24 History oral syrup (senna) Past Med/Surg History Problem List (Updated 04/19/24 @ 06:18 by Rony Hernandez MD) Respiratory failure Pancreatitis (Acute) Pneumonia (Acute) Acute UTI (Acute) Dependent on ventilator (Acute) Sepsis (Acute) Dilated bile duct Cholangitis Acute dehydration (Acute) DKA (diabetic ketoacidosis) (Acute) Sepsis (Acute) UTI (urinary tract infection) Elevated liver enzymes Septic shock HHNC (hyperglycemic hyperosmolar nonketotic coma) Encounter for pre-operative examination Ascites Ventilator dependence (Acute) Gastritis (Acute) DVT prophylaxis ALS (amyotrophic lateral sclerosis) (Acute) History of tracheostomy (Acute) currently in place; last changed 10/31/22 with a new Shley tracheostomy #8 tube Chronic respiratory failure (Acute) CURRENT TRACH 8DCT INTACT>8.5 WITH HUMIDIFICATION *REQUIRED SUCTIONED EVERY 20 MINUTES ON AVERAGE Atrial fibrillation with RVR hx of; per Dr. Bone's note:" Telemetry reveals that on 12/18/2021 at 22:12 patient reverted from sinus tachycardia at about 100 bpm to atrial fibrillation in the 150s. He subsequently converted to sinus rhythm while on an amiodarone infusion at 23:14."--no issues since Medical History Pressure ulcer CLOSED ON BUTTOCK Tracheostomy in place 12/2021 ORIGINALLY PLACED (LAST CHANGED 10/2022) Hypotension NO CARDS Hx of pancreatitis Pseudocyst of pancreas Left ventricular systolic dysfunction Uses feeding tube G-J TUBE USED FOR MEDS AND FEEDINGS Slow gastric motility D/T ALS Dry eye syndrome Cardiac murmur AN Sleep apnea TRILEGY MACHINE WITH 2.5L (WEARS CONT) ALS (amyotrophic lateral sclerosis) DX FEBRUARY 2014>CAN NOT MOVE Surgical History History of esophagogastroduodenoscopy (EGD) Hx of LASIK PRK S/P percutaneous endoscopic gastrostomy (PEG) tube placement History of tooth extraction History of herniorrhaphy Family History Mother Family history of diabetes mellitus Other No family history of adverse response to anesthesia Social History Smoking Status: Never smoker Second Hand Exposure: No; Do You Dip or Chew Tobacco: No; Hx Alcohol Use: No Hx Substance Use: No Preferred Language: Guatemalan Communication Ability: Effective Communication Ability Comment: pt can not talk--uses electronic table to communicate; signs consents Instructor Painting Required: No Beliefs That Will Affect Care: None marital status: Current Living Situation: Spouse Current Living Situation Comment: has 2 personal aides to help in home How many Children do You have: 3 Other Information That Helps Us Care for You: No Feels Safe at Home: Yes Safety Concerns: Feels Safe At This Time Assistive Devices: Hospital Bed, Mechanical Lift and Oxygen - Continuous Assistive Devices Comment: trach/vent/peg tube Review of Systems Review of Systems: Could not be reliably obtained secondary to tracheostomy Physical Exam Physical Exam: GENERAL: Comfortable, no respiratory distress SKIN: Pallor,, warm HEENT: Alopecia, pale palpebral conjunctivae, no ptosis, dry buccal mucosa NECK : Supple, tracheostomy tube in place, no tenderness CHEST : Decreased breath sounds, no wheezes, no tenderness HEART : RRR, no obvious murmurs ABDOMEN: Some distention, epigastric tenderness EXTREMITIES : No LE swelling/tenderness, no other conspicuous deformities noted NEUROLOGIC : Blinks to some questions, no facial asymmetry, gait and stance not assessed Results & Data Results & Data Vital Signs (Past 12 Hours) Vital Signs Temp Pulse Pulse Resp BP BP Pulse Ox 04/18/24 23:39 88 04/18/24 23:17 36.5 C 82 04/18/24 22:24 85 14 98 04/18/24 22:15 85 14 98 04/18/24 22:15 121/75 04/18/24 22:09 89 14 98 04/18/24 22:00 112/74 04/18/24 21:57 92 H 18 97 04/18/24 21:55 90 21 106/72 98 04/18/24 21:15 110 H 16 104/63 92 04/18/24 21:03 114 H 15 90 04/18/24 20:45 101/77 04/18/24 20:45 114 H 24 96 04/18/24 20:15 125 H 19 87/73 L 95 04/18/24 20:12 124 H 19 95 04/18/24 20:00 89/75 L 04/18/24 19:57 124 H 21 96 04/18/24 19:54 122 H 23 04/18/24 19:45 98/81 L 04/18/24 19:41 123 H 21 98 04/18/24 19:30 107/77 04/18/24 19:27 122 H 24 97 04/18/24 19:24 123 H 22 99 04/18/24 19:24 124 H 21 107/77 98 04/18/24 19:24 37.9 C H 124 H 21 107/77 97 04/18/24 19:23 99/82 L 04/18/24 19:22 122 H O2 Del Method FiO2 04/18/24 23:39 04/18/24 23:17 04/18/24 22:24 30 04/18/24 22:15 04/18/24 22:15 04/18/24 22:09 04/18/24 22:00 04/18/24 21:57 04/18/24 21:55 Room Air 04/18/24 21:15 04/18/24 21:03 04/18/24 20:45 04/18/24 20:45 04/18/24 20:15 04/18/24 20:12 04/18/24 20:00 04/18/24 19:57 04/18/24 19:54 04/18/24 19:45 04/18/24 19:41 Mechanical Vent 04/18/24 19:30 04/18/24 19:27 04/18/24 19:24 04/18/24 19:24 Mechanical Vent 04/18/24 19:24 Mechanical Vent 04/18/24 19:23 04/18/24 19:22 Laboratory Results Laboratory Results WBC 34.29 K/ul (4.8-10.8) H* 04/18/24 20:08 RBC 4.99 M/uL (4.70-6.10) 04/18/24 20:08 Hgb 13.9 g/dl (14.0-18.0) L 04/18/24 20:08 Hct 40.8 % (42.0-52.0) L 04/18/24 20:08 MCV 81.8 fL (80.0-100.0) 04/18/24 20:08 MCH 27.9 pg (25.0-34.0) 04/18/24 20:08 MCHC 34.1 g/dL (32.0-36.0) 04/18/24 20:08 RDW Std Deviation 51.8 fL (36.4-46.3) H 04/18/24 20:08 RDW Coeff of Aissatou 18.0 % (11.5-14.5) H 04/18/24 20:08 Plt Count 526 K/uL (130-400) H 04/18/24 20:08 MPV 9.1 fL (9.4-12.4) L 04/18/24 20:08 Immature Gran % (Auto) 1.9 % 04/18/24 20:08 Neut % (Auto) 84.1 % 04/18/24 20:08 Lymph % (Auto) 9.2 % 04/18/24 20:08 Fallon % (Auto) 4.5 % 04/18/24 20:08 Eos % (Auto) 0.1 % 04/18/24 20:08 Baso % (Auto) 0.2 % 04/18/24 20:08 Neut # (Auto) 28.84 K/uL (1.40-6.50) H 04/18/24 20:08 Lymph # (Auto) 3.17 K/uL (1.20-3.40) 04/18/24 20:08 Fallon # (Auto) 1.56 K/uL (0.11-0.59) H 04/18/24 20:08 Eos # (Auto) 0.02 K/uL (0.00-0.50) 04/18/24 20:08 Baso # (Auto) 0.06 K/uL (0.00-0.20) 04/18/24 20:08 Immature Gran # (Auto) 0.64 K/uL (0.01-0.20) H 04/18/24 20:08 Hypersegmented Neuts 1+ 04/18/24 20:08 Polychromasia 1+ 04/18/24 20:08 PT 12.8 Seconds (9.0-12.0) H 04/18/24 20:08 INR 1.2 (0.9-1.1) H 04/18/24 20:08 APTT 34 Seconds (21-31) H 04/18/24 20:08 PTT Ratio 1.3 04/18/24 20:08 VBG pH 7.69 (7.36-7.41) H 04/18/24 20:08 VBG pCO2 23 mmHg (38-50) L 04/18/24 20:08 VBG pO2 48 mmHg 04/18/24 20:08 VBG HCO3 28 mmol/L 04/18/24 20:08 VBG O2 Saturation 85.3 % 04/18/24 20:08 VBG Base Excess 8.8 mEq/L 04/18/24 20:08 Sodium 131 mmol/L (136-145) L 04/18/24 20:08 Potassium 2.9 mmol/L (3.5-5.1) L 04/18/24 20:08 Chloride 89 mmol/L (98-107) L 04/18/24 20:08 Carbon Dioxide 26 mmol/L (21-32) 04/18/24 20:08 Anion Gap 16 (3-11) H 04/18/24 20:08 BUN 28 mg/dl (6-23) H 04/18/24 20:08 Creatinine < 0.20 mg/dl (0.6-1.4) L 04/18/24 20:08 Est Cr Clr Drug Dosing 560.5 ml/min 04/18/24 20:08 Est GFR ( Amer) > 150.0 ml/min 04/18/24 20:08 Est GFR (Non-Af Amer) > 150.0 ml/min 04/18/24 20:08 BUN/Creatinine Ratio TNP 04/18/24 20:08 Glucose 174 mg/dl (70-99(Fasting)) H 04/18/24 20:08 Lactate 1.2 mmol/L (0.4-2.0) 04/18/24 23:29 Calcium 8.6 mg/dl (8.6-10.3) 04/18/24 20:08 Phosphorus 2.5 mg/dl (2.5-4.9) 04/18/24 20:08 Magnesium 3.0 mg/dl (1.7-2.4) H 04/18/24 20:08 Total Bilirubin 1.1 mg/dl (0.2-1.0) H 04/18/24 20:08 Direct Bilirubin 0.3 mg/dl (0-0.2) H 04/18/24 20:08 AST 13 U/L (13-39) 04/18/24 20:08 ALT 11 U/L (7-52) 04/18/24 20:08 Alkaline Phosphatase 195 U/L (34-104) H 04/18/24 20:08 Troponin I High Sens 10.5 pg/ml (0-20) D 04/18/24 23:29 Total Protein 9.1 gm/dl (6.0-8.3) H 04/18/24 20:08 Albumin 3.4 gm/dl (3.4-5.0) 04/18/24 20:08 Lipase 139 U/L (11-82) H 04/18/24 20:08 Procalcitonin 64.60 ng/ml (0-0.5) H 04/18/24 20:08 Urine Color Dark Yellow 04/18/24 20:25 Urine Appearance Cloudy (Clear) A 04/18/24 20:25 Urine pH 6.0 (4.5-7.5) 04/18/24 20:25 Ur Specific [place] 1.021 (1.000-1.030) 04/18/24 20:25 Urine Protein 2+ (Negative) H 04/18/24 20:25 Urine Glucose (UA) Negative (Negative) 04/18/24 20:25 Urine Ketones Trace (Negative) H 04/18/24 20:25 Urine Blood Trace (Negative) H 04/18/24 20:25 Urine Nitrite Negative (Negative) 04/18/24 20:25 Urine Bilirubin Negative (Negative) 04/18/24 20:25 Urine Urobilinogen Negative (Negative) 04/18/24 20:25 Ur Leukocyte Esterase 3+ (Negative) H 04/18/24 20:25 Urine WBC (Auto) >50 /hpf (0-5) H 04/18/24 20:25 Urine RBC (Auto) 3-5 /hpf (0-2) H 04/18/24 20:25 U Hyaline Cast (Auto) 3-5 /lpf (0-2) H 04/18/24 20:25 U Epithel Cells (Auto) 0-2 /hpf (0-2) 04/18/24 20:25 Urine Bacteria (Auto) 4+ (None Seen) H 04/18/24 20:25 Impressions Abdomen/Pelvis CT 04/18/24 21:15 CR Exam(s): CT ABDOMEN + PELVIS With Contrast IV Amt: 120ml opti 320 EXAM: CT Abdomen and Pelvis With Intravenous Contrast CLINICAL HISTORY: Sepsis TECHNIQUE: Axial computed tomography images of the abdomen and pelvis with intravenous contrast. CTDI is 24 mGy and DLP is 1385 mGy-cm. Automated exposure control was utilized for the study. A dose lowering technique was utilized adhering to the principles of ALARA. CONTRAST: Patient received 120ml opti 320 of IV contrast COMPARISON: No relevant prior studies available. FINDINGS: Lung bases: Unremarkable. No mass. No consolidation. ABDOMEN: Liver: Fatty infiltration of the liver. Gallbladder and bile ducts: Unremarkable. No calcified stones. No ductal dilation. Pancreas: There is inflammatory stranding surrounding the pancreas. No ductal dilation. Spleen: Unremarkable. No splenomegaly. Adrenals: Unremarkable. No mass. Kidneys and ureters: Unremarkable. No solid mass. No hydronephrosis. Stomach and bowel: Unremarkable. No obstruction. No mucosal thickening. PELVIS: Appendix: Normal appendix. Bladder: Thickening of the bladder wall is concerning for cystitis. Reproductive: Unremarkable as visualized. ABDOMEN and PELVIS: Intraperitoneal space: Unremarkable. No free air. No significant fluid collection. Bones/joints: There are degenerative changes of the spine. No acute fracture. No dislocation. Soft tissues: Unremarkable. 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 No abdominal aortic aneurysm. Lymph nodes: Unremarkable. No enlarged lymph nodes. IMPRESSION: 1. 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 2. There is inflammatory stranding surrounding the pancreas. This is concerning for acute edematous pancreatitis. A 1.2 cm fluid collection of the uncinate process is consistent with an acute peripancreatic fluid collection. No hemorrhage or necrosis. 3. Thickening of the bladder wall is concerning for cystitis. 4. Fatty infiltration of the liver. Communications: Call Doctor Above results Electronically signed by: Bea Emerson MD 04/18/24 23:23 PM Chest CTA 04/18/24 21:15 CR Exam(s): CTA CHEST IV Amt: 120ml opti 320 EXAM: CT Angiography Chest With Intravenous Contrast CLINICAL HISTORY: Sepsis TECHNIQUE: Axial computed tomographic angiography images of the chest with intravenous contrast. MIPS images were created and reviewed. CTDI is 24 mGy and DLP is 1385 mGy-cm. Automated exposure control was utilized for the study. A dose lowering technique was utilized adhering to the principles of ALARA. MIP reconstructed images were created and reviewed. COMPARISON: CTA chest 03/30/2024 FINDINGS: Pulmonary arteries: Unremarkable. No pulmonary embolus. Aorta: No acute findings. No thoracic aortic aneurysm. Lungs: New airspace opacity of the lingula with a 4 cm cavitary lesion. Bibasilar atelectasis. Pleural space: Unremarkable. No significant effusion. No pneumothorax. Heart: Unremarkable. No cardiomegaly. No significant pericardial effusion. No evidence of RV dysfunction. Bones/joints: No acute fracture. No dislocation. Soft tissues: Unremarkable. Lymph nodes: Unremarkable. No enlarged lymph nodes. Pancreas: There is inflammatory stranding surrounding the tail the pancreas. Tubes, lines and devices: The tracheostomy tube is in good position. IMPRESSION: 1. No pulmonary embolus. 2. New airspace opacity of the lingula with a 4 cm cavitary lesion. This favors cavitary pneumonia, including tuberculosis. 3. There is inflammatory stranding surrounding the tail the pancreas. Clinical correlation is recommended to exclude acute pancreatitis. Communications: Verify Receipt Electronically signed by: Bea Emerson MD 04/18/24 23:16 PM Diagnostic Findings EKG as per my interpretation :Rate 125, sinus tachycardia, normal axis, LVH, ST depression lateral leads
[2024-04-19] MEDS ORDERED: CARBOHYDRATES FOR HYPOGLYCEMIA PO PRN ×2 (01:57→03:30)
[2024-04-19] MEDS ORDERED: PROMETHAZINE HCL 6.25 MG in SODIUM CHLORIDE 0.9% 50 ML IV PRN (01:57)
[2024-04-19] MEDS ORDERED: GLUCOSE 40% GEL 15 GM TUBE PO PRN ×2 (01:57→03:30)
[2024-04-19] MEDS ORDERED: GLUCOSE 10 TAB/TUBE PO PRN ×2 (01:57→03:30)
[2024-04-19] MEDS ORDERED: ACETAMINOPHEN 1,000 MG/100 ML VIAL IV PRN (01:57)
[2024-04-19] MEDS ORDERED: GLUCAGON FOR INJ 1 MG VIAL SQ PRN ×2 (01:57→03:30)
[2024-04-19] MEDS ORDERED: DEXTROSE 50% 50 ML SYRINGE IV PRN ×2 (01:57→03:30)
[2024-04-19 03:00] LABS: Base Excess VBG 2.5 mEq/L; HCO3 VBG 26 mmol/L; Oxygen Saturation VBG 90.1 %; PCO2 VBG 37 mmHg (38-50); PO2 VBG 59 mmHg; pH VBG 7.46 (7.36-7.41)
[2024-04-19] MEDS ORDERED: ARTIFICIAL TEARS OP PRN (03:42)
[2024-04-19 04:23] LABS: Thyroid Stimulating Hormone 2.102 uIu/ml (0.300-4.500)
--- NOTE | 2024-04-19 04:30 | Critical Care Consultation ---
Date of Consultation April 19, 2024 Assessment & Plan (1) Sepsis: Impression: 38-year-old male with end-stage ALS, ventilator dependent, who had a recent admission with transfer to [facility] to undergo ERCP, which was not performed and was medically managed. Recently discharged home, and represented to the emergency department early this morning with sepsis. Neuro - ALSpatient with end-stage ALS and ventilator dependent with tracheostomy and G/J-tube for feeds. Consider palliative consult. Cardiac - Currently hemodynamically stable with sinus tachycardia. Patient on midodrine due to hypotension. Would hold antihypertensives. Continuous monitoring on telemetry Respiratory - Mechanical ventilationpatient with end-stage ALS and ventilator dependent with previous tracheostomy. No significant hypoxia or acid-base imbalance. Continue management ventilator per ICU. ABG pending.Continuous monitoring on pulse ox GI - GJ tuben.p.o. for now. Continue famotidine Acute cholangitis?MRCP pending. Patient with recent admission for acute cholangitis and was transferred to [facility] to undergo ERCP. Per patient's , patient did not receive ERCP and was medically managed. - GI consulted. Will follow-up recommendations - Total bilirubin 1.1. Trend LFTs -Antibiotics as below Acute pancreatitispatient with elevated lipase and concern for edematous pancreatitis with 1.[address] collection per CT report. Continue with fluid resuscitation. Trend lipase. Antibiotics as below RENAL/LYTES - Creatinine within normal limits, monitor routine BMP and replete electrolytes as indicated Lactic acidosislikely secondary to sepsis. Resolved following fluid resusci tation. - Foleystrict I's and O's ENDO - No history of diabetes or thyroid disease. ICU hyperglycemic protocol HEME - H&H stable, monitor routine CBC ID - Sepsismultiple potential sources with urinalysis concerning for UTI and CT abdomen with cystitis. Possible cholangitis. Possible pneumonia with cavitary lesion - Elevated WBC, lactate, and procalcitonin - Blood cultures and urine culture pending. Sputum culture pending. - quant gold pending. Continue isolation precautions. ID consult -Nasal MRSA pending -BioFire pending - Continue vancomycin and Zosyn for now LINES/IV ACCESS - Peripheral IVs, J-tube DVT PROPHYLAXIS - SCDs, heparin drip CODE STATUS: Full code per discussion with Thank you for allowing us to participate in the care of this patient. Please r efer to my attending physician's documentation for any further recommendations. (2) Pancreatitis: (3) Pneumonia: (4) Acute UTI: (5) Dependent on ventilator: (6) Cholangitis: (7) ALS (amyotrophic lateral sclerosis): Supervising Physician Co-Signing Physician Notes I have personally evaluated and examined this patient. I agree with assessment and plan of Mykel CHRISTY. Please refer to my addendum for additional details History of Present Illness Attending Physician: Shree Fofana MD History of Present Illness Patient is a 38-year-old male with past medical history significant for end- stage ALS, ventilator dependent, and multiple admissions for sepsis and pneumonia. He was recently admitted to [facility], and required transfer to [facility] with concern for cholangitis and ERCP. On that admission, patient did not receive ERCP and MRCP revealed that cholangitis had spontaneously resolved according to the . He returned home a few days ago, and the patient's noticed that he was tachycardic, less alert, Brought him to the emergency department. On arrival to the ED patient was noted to have leukocytosis, Lactic acidosis, elevated procalcitonin, elevated lipase, Total bili 1.1. Urinalysis concerning for UTI. He underwent CTA abdomen and CTA chest. CTA chest revealed cavitary lesion concerning for tuberculosis per radiology report. CT abdomen and pelvis showed inflammatory stranding surrounding the pancreas concerning for edematous pancreatitis with a 1.2 cm fluid collection concerning for acute peripancreatic fluid collection, thickening of the bladder wall concerning for cystitis, fatty infiltration of the liver, and partially occlusive thrombus of portal vein and splenic veins. Blood cultures were collected and he was started on broad-spectrum antibiotics with vancomycin and Zosyn. He is now being admitted to the ICU for further management at this time. Allergies Allergy/AdvReac Type Severity Reaction Status Date / Time hydromorphone [From Dilaudid] AdvReac makes pt Verified 03/31/24 00:58 retain urine Home Medications Medication Instructions Recorded Confirmed Type acetaminophen 160 mg/5 mL oral 640 mg feeding tube Q6 PRN Pain, 05/07/22 04/19/24 History liquid (Children's Acetaminophen) Mild atropine 1 % eye drops 1 drp sublingual QID PRN increased 05/07/22 04/19/24 History secretions nystatin 100,000 unit/gram topical 1 applic topical BID 05/07/22 04/19/24 History powder zinc oxide 20 % topical ointment 1 applic topical TID PRN SORES 05/07/22 04/19/24 History A,D-aloe xlwj-bjayhynkpv-z.pet 1 ea topical BID PRN scrotal area 06/10/2204/03 History topical ointment carboxymethylcellulose sodium 0.5 1 drp OPB UD PRN Dry Eye(S) 06/10/22 04/19/24 History % eye drops dextran 70-hypromellose (PF) 0.1 1 drp OPB QID PRN Dry Eyes 06/10/22 04/19/24 History %-0.3 % eye drops in a dropperette (Artificial Tears (PF)) famotidine 40 mg/5 mL (8 mg/mL) 20 mg feeding tube BID 06/10/22 04/19/24 History oral suspension midodrine 5 mg tablet 5 mg feeding tube TID 06/10/22 04/19/24 History polyethylene glycol 3350 17 17 g feeding tube DAILY PRN 06/10/22 04/19/24 History gram/dose oral powder (Miralax) Constipation morphine 10 mg/5 mL oral solution 5 mg feeding tube Q2H PRN Pain 10/30/22 04/19/24 History [place] 1.4 Liquid Vanilla 1 ea G-tube 5XD 04/23/23 04/19/24 History Lactobacillus acidophilus 2 cap feeding tube DAILY 04/23/23 04/19/24 History (Acidophilus capsule) hydrocortisone 2.5 % topical 1 applic topical BID PRN Itching 04/23/23 04/19/24 History ointment white petrolatum 57 % topical 1 ea topical BID PRN protectant 04/23/23 04/19/24 History paste (Remedy Phytoplex Z-Guard) ciclopirox 0.77 % topical cream 1 applic topical 3XWK 03/31/24 04/19/24 History (Ciclodan) coenzyme Q10 100 mg/5 mL oral syrup 10 mg feeding tube DAILY 03/31/24 04/19/24 History ibuprofen 100 mg/5 mL oral 200 mg feeding tube TID PRN Fever 03/31/24 04/19/24 History suspension Or Pain senna leaf extract 176 mg/5 mL 15 ml feeding tube 3XWK 03/31/24 04/19/24 History oral syrup (senna) Patient History Medical History Pressure ulcer CLOSED ON BUTTOCK Tracheostomy in place 12/2021 ORIGINALLY PLACED (LAST CHANGED 10/2022) Hypotension NO CARDS Hx of pancreatitis Pseudocyst of pancreas Left ventricular systolic dysfunction Uses feeding tube G-J TUBE USED FOR MEDS AND FEEDINGS Slow gastric motility D/T ALS Dry eye syndrome Cardiac murmur AN INFANT Sleep apnea TRILEGY MACHINE WITH 2.5L (WEARS CONT) ALS (amyotrophic lateral sclerosis) DX FEBRUARY 2014>CAN NOT MOVE Surgical History History of esophagogastroduodenoscopy (EGD) Hx of LASIK PRK S/P percutaneous endoscopic gastrostomy (PEG) tube placement History of tooth extraction History of herniorrhaphy Family History Mother Family history of diabetes mellitus Other No family history of adverse response to anesthesia Social History Smoking Status: Never smoker Second Hand Exposure: No; Do You Dip or Chew Tobacco: No; Hx Alcohol Use: No Hx Substance Use: No Preferred Language: [place] Communication Ability: Effective Communication Ability Comment: pt can not talk--uses electronic table to communicate; signs consents Sodium Chlorite Operator Required: No Beliefs That Will Affect Care: None marital status: Current Living Situation: Spouse Current Living Situation Comment: has 2 personal aides to help in home How many Children do You have: 3 Other Information That Helps Us Care for You: No Feels Safe at Home: Yes Safety Concerns: Feels Safe At This Time Assistive Devices: Hospital Bed, Mechanical Lift and Oxygen - Continuous Assistive Devices Comment: trach/vent/peg tube Review of Systems Review of Systems: Unobtainable due to cognitive status Physical Exam 2 Constitutional: + frail appearing and + mechanically michelle tilated Eyes: PERRL, conjunctivae normal, anicteric sclerae ENMT: external ear and nose normal, oropharynx normal Neck: Trachea midline, no Thyromegaly Respiratory: Rhonchi auscultated bilaterally in all lung almanzar, mechanically ventilated, symmetrical chest wall movement. Cardiovascular: Rate/Rhythm: regular rhythm and + tachycardic Heart Sounds: normal S1 and normal S2; no murmur Extremities: no edema Gastrointestinal (Abdomen): normal bowel sounds, soft, nontender, no hepatosplenomegaly Musculoskeletal: Global musculoskeletal paralysis with muscle wasting throughout, Skin: no rashes, warm and dry Neurologic: Global paralysis. PERRLA Psychiatric: Unable to assess Results & Data Results & Data Vital Signs (Past 12 Hours) Vital Signs Temp Pulse Pulse Resp BP BP Pulse Ox 04/19/24 02:45 92 H 10 L 95 04/19/24 02:30 37.0 C 89 12 89/65 L 94 04/19/24 02:21 85 10 L 98/71 L 97 04/19/24 02:08 75 10 L 95 04/19/24 01:39 84 14 95/65 L 97 04/19/24 01:00 84 14 81/61 L 95 04/19/24 00:15 90/65 L 04/18/24 23:45 88 14 87/64 L 96 04/18/24 23:39 88 04/18/24 23:30 86 14 89/62 L 98 04/18/24 23:17 36.5 C 82 04/18/24 22:24 85 14 98 04/18/24 22:15 85 14 98 04/18/24 22:15 121/75 04/18/24 22:09 89 14 98 04/18/24 22:00 112/74 04/18/24 21:57 92 H 18 97 04/18/24 21:55 90 21 106/72 98 04/18/24 21:15 110 H 16 104/63 92 04/18/24 21:03 114 H 15 90 04/18/24 20:45 101/77 04/18/24 20:45 114 H 24 96 04/18/24 20:15 125 H 19 87/73 L 95 04/18/24 20:12 124 H 19 95 04/18/24 20:00 89/75 L 04/18/24 19:57 124 H 21 96 04/18/24 19:54 122 H 23 04/18/24 19:45 98/81 L 04/18/24 19:41 123 H 21 98 04/18/24 19:30 107/77 04/18/24 19:27 122 H 24 97 04/18/24 19:24 123 H 22 99 04/18/24 19:24 124 H 21 107/77 98 04/18/24 19:24 37.9 C H 124 H 21 107/77 97 04/18/24 19:23 99/82 L 04/18/24 19:22 122 H O2 Del Method FiO2 04/19/24 02:45 04/19/24 02:30 04/19/24 02:21 04/19/24 02:08 30 04/19/24 01:39 04/19/24 01:00 04/19/24 00:15 04/18/24 23:45 04/18/24 23:39 04/18/24 23:30 04/18/24 23:17 04/18/24 22:24 30 04/18/24 22:15 04/18/24 22:15 04/18/24 22:09 04/18/24 22:00 04/18/24 21:57 04/18/24 21:55 Room Air 04/18/24 21:15 04/18/24 21:03 04/18/24 20:45 04/18/24 20:45 04/18/24 20:15 04/18/24 20:12 04/18/24 20:00 04/18/24 19:57 04/18/24 19:54 04/18/24 19:45 04/18/24 19:41 Mechanical Vent 04/18/24 19:30 04/18/24 19:27 04/18/24 19:24 04/18/24 19:24 Mechanical Vent 04/18/24 19:24 Mechanical Vent 04/18/24 19:23 04/18/24 19:22 Coding Level of Care Code 61861 IN/OBS CONSULT LVL 3,45M Diagnoses Sepsis A41.9; R65.20; J96.01 Acute respiratory failure type: with hypoxia Sepsis acute organ dysfunction status: with acute organ dysfunction Sepsis type: sepsis due to unspecified organism Severe sepsis acute organ dysfunction type: acute respiratory failure Severe sepsis shock status: unspecified Pancreatitis K85.90 Acute pancreatitis complication: unspecified Chronicity: acute Pancreatitis type: unspecified pancreatitis type Pneumonia J18.9 Laterality: left Lung location: lower lobe of lung Pneumonia type: due to unspecified organism Acute UTI N39.0 Dependent on ventilator Z99.11 Cholangitis K83.09 ALS (amyotrophic lateral sclerosis) G12.21 Time Spent (min) 52 (1) Sepsis Acute respiratory failure type: with hypoxia Sepsis acute organ dysfunction status: with acute organ dysfunction Sepsis type: sepsis due to unspecified organism Severe sepsis acute organ dysfunction type: acute respiratory failure Severe sepsis shock status: unspecified Qualified Code(s): A41.9 - Sepsis, unspecified organism; R65.20 - Severe sepsis without septic shock; J96.01 - Acute respiratory failure with hypoxia (2) Pancreatitis Acute pancreatitis complication: unspecified Chronicity: acute Pancreatitis type: unspecified pancreatitis type Qualified Code(s): K85.90 - Acute pancreatitis without necrosis or infection, unspecified (3) Pneumonia Laterality: left Lung location: lower lobe of lung Pneumonia type: due to unspecified organism Qualified Code(s): J18.9 - Pneumonia, unspecified organism
--- NOTE | 2024-04-19 04:33 | Magnetic Resonance Report ---
Exam(s): MRI MRCP EXAM: MR Abdomen Without Intravenous Contrast, MRCP Protocol CLINICAL HISTORY: Abdominal Pain. TECHNIQUE: Multiplanar magnetic resonance images of the abdomen without intravenous contrast using MRCP protocol. COMPARISON: CT abdomen and pelvis from earlier today. FINDINGS: Bile ducts: Mildly dilated common bile duct measuring 7 mm without filling defect. No stones. There is tapering of the distal common bile duct. Gallbladder: Unremarkable. No stones. Liver: Fatty infiltration of the liver. Pancreas: Multiple cystic lesions of the pancreas measure up to 1.5 cm. There is inflammatory stranding surrounding the pancreas. No hemorrhage, necrosis or organized peripancreatic fluid collection. No ductal dilation. Spleen: Unremarkable. No splenomegaly. Adrenals: Unremarkable. No mass. Kidneys and ureters: Unremarkable. No hydronephrosis. Stomach and bowel: Unremarkable. No obstruction. Other findings: A GJ-tube is in good position. IMPRESSION: 1. There is inflammatory stranding surrounding the pancreas. No hemorrhage, necrosis or organized peripancreatic fluid collection. This is most consistent with acute edematous pancreatitis. Redemonstrated nonocclusive thrombus of the portal, splenic and superior mesenteric veins. 2. Multiple cystic lesions of the pancreas measure up to 1.5 cm. This is concerning for acute peripancreatic fluid collections. 3. Mildly dilated common bile duct measuring 7 mm without filling defect. There is tapering of the distal common bile duct. This could relate to ascending cholangitis. Electronically signed by: Bea Emerson MD 04/19/24 04:33 AM
[2024-04-19 05:10] LABS: iSTAT Arterial Blood Gas HCO3 27 meg/L (19-24); iSTAT Arterial Blood Gas pCO2 38 mmHg (35-46); iSTAT Arterial Blood Gas pH 7.46 (7.35-7.45); iSTAT Arterial Blood Gas pO2 164 mmHg (80-95); iSTAT Carbon Dioxide 28 mmol/L (24-31); iSTAT Hematocrit 34 % (42-52); iSTAT Hemoglobin 11.6 g/dl (14.0-18.0); iSTAT Potassium 2.8 mmol/L (3.3-5.0); iSTAT Sodium 136 mmol/L (135-144)
[2024-04-19] MEDS: INSULIN ASPART PER UNIT CHARGE SC SCH ×2 (05:37→11:16)
[2024-04-19] MEDS: PIPERACILLIN/TAZOBACTAM 4.5 GM in DEXTROSE 5% MINI-B 100 ML IV SCH (05:38)
[2024-04-19] MEDS: PLASMA-LYTE A 1,000 ML IV SCH (05:39)
[2024-04-19] MEDS: VANCOMYCIN HCL 1,250 MG in SODIUM CHLORIDE 0.9% 250 ML IV SCH (05:39)
[2024-04-19 06:21] LABS: Alanine Aminotransferase 8 U/L (7-52); Albumin Globulin Ratio 0.6 (0.9-2); Albumin Level 2.7 gm/dl (3.4-5.0); Alkaline Phosphatase 133 U/L (34-104); Anion Gap 10 (3-11); Aspartate Aminotransferase 14 U/L (13-39); Bilirubin,Total 0.6 mg/dl (0.2-1.0); Blood Urea Nitrogen 19 mg/dl (6-23); Calcium 7.5 mg/dl (8.6-10.3); Carbon Dioxide 25 mmol/L (21-32); Chloride 101 mmol/L (98-107); Creatinine Clr Calc Pharmacy 560.5 ml/min; Est GFR (African American) > 150.0 ml/min; Est GFR (Non-African American) > 150.0 ml/min; Globulin 4.3 gm/dl (2.5-4.0); Glucose 178 mg/dl (70-99(Fasting)); Lipase 136 U/L (11-82); Magnesium 2.5 mg/dl (1.7-2.4); Potassium 2.9 mmol/L (3.5-5.1); Sodium 136 mmol/L (136-145)
[2024-04-19 06:36] LABS: Basophils # (auto) 0.05 K/uL (0.00-0.20); Basophils % (auto) 0.2 %; Eosinophils # (auto) 0.06 K/uL (0.00-0.50); Eosinophils % (auto) 0.2 %; Hematocrit (blood only) 32.4 % (42.0-52.0); Hemoglobin 10.6 g/dl (14.0-18.0); Immature Granulocytes # (auto) 0.29 K/uL (0.01-0.20); Immature Granulocytes % (auto) 1.2 %; Lymphocytes # (auto) 1.43 K/uL (1.20-3.40); Lymphocytes % (auto) 5.8 %; Mean Corpuscular Hemoglobin 27.9 pg (25.0-34.0); Mean Corpuscular Hgb Conc 32.7 g/dL (32.0-36.0); Mean Corpuscular Volume 85.3 fL (80.0-100.0); Mean Platelet Volume 9.3 fL (9.4-12.4); Monocytes # (auto) 1.21 K/uL (0.11-0.59); Monocytes % (auto) 4.9 %; Neutrophils # (auto) 21.51 K/uL (1.40-6.50); Neutrophils % (auto) 87.7 %; Platelet Count 341 K/uL (130-400); RDW Coefficient of Variation 17.9 % (11.5-14.5); White Blood Count 24.55 K/ul (4.8-10.8)
[2024-04-19] MEDS ORDERED: STAT IV Infusion **Titration per Protocol STA (06:48)
[2024-04-19 07:03] LABS: Rouleaux 1+
--- NOTE | 2024-04-19 07:10 | XRay Report ---
XR chest 1V portable HISTORY: 38 years-old Male Sepsis acute sepsis COMPARISON: CTA chest of same day, CT abdomen and pelvis 03/30/2024 TECHNIQUE: AP view of the chest FINDINGS: Unchanged positioning of the tracheostomy cannula. Cardiac silhouette is normal in size. Mild subsegm ental bibasilar atelectasis. No pneumothorax, pleural effusion or pulmonary edema. 5.5 cm cavitary op acity of the inferior segment lingula. Bones appear grossly intact. IMPRESSION: Cavitary consolidation of the inferior segment lingula is new from the 03/30/2024 study kurtz ggestive of necrotic pneumonia. Follow-up imaging after treatment course is needed in order to docume nt resolution. ACT 112: Negative or not required by law. The above report was generated using voice recognition software. It may contain grammatical, syntax o r spelling errors. Electronically signed by: James Brody M.D. 04/19/2024 7:09 AM
[2024-04-19] MEDS ORDERED: ICU Protocol for HYPERglycemia SCH (07:30)
[2024-04-19 07:49] LABS: Base Excess VBG 2.9 mEq/L; HCO3 VBG 26 mmol/L; Oxygen Saturation VBG 89.2 %; PCO2 VBG 34 mmHg (38-50); PO2 VBG 56 mmHg; pH VBG 7.49 (7.36-7.41)
[2024-04-19] MEDS: LACTOBACILLUS ACIDOPHILUS 1 GM PACK PO SCH (08:03)
[2024-04-19] MEDS: MIDODRINE HCL 2.5 MG TAB PO SCH (08:03)
[2024-04-19] MEDS: FAMOTIDINE SUSP 20 MG/2.5 ML UDP NG SCH (08:04)
[2024-04-19] MEDS: LINEZOLID 600 MG/300 ML BAG IV SCH (08:04)
[2024-04-19 08:17] LABS: ANTI-Xa, UFH(UnfractionatedHep < 0.10 IU/ml (0.3-0.7)
[2024-04-19] MEDS: NOREPINEPHRINE/D5W 4 MG/250 ML PLCT IV SCH (10:31)
--- NOTE | 2024-04-19 11:03 | Communication Note ---
Date of Service: April 19, 2024 This note reflects my management from signout at 0700. Patient with necrotic pneumonia, concerning for MRSA given frequent hospitalizations and mechanical ventilation, MRSA nasal swabs have remained negative, transition from vancomycin to Zyvox, included in differential includes TB, he has respiratory had sampling here from 2021, he has been vent dependent since that time. Given no prior acid-fast bacteria on sampling I think his risk for TB is minimal with the exception of possible healthcare exposure related incidents. QuantiFERON gold pending. Anticipate at least 3 weeks of antibiotics for lung abscess. Continue with Zosyn given intra-abdominal findings which will also cover lung pathogens, findings most consistent with a sending cholangitis, currently draining PEG tube, also has pancreatitis. Holding tube feeds at this time, no need for gravity drainage of PEG tube. Of note there is nonocclusive thrombus of the portal, splenic, superior mesenteric veins: Suspect secondary to underlying pancreatitis, agree with systemic anticoagulation, will likely require 3 to 6 months duration; holding thrombophilic workup at this time as it is highly likely related to pancreatitis. Of note patient had similar presentation which necessitated transfer to [place] for possible ERCP, has been reported to staff that ERCP did not occur, will attempt to obtain old records. Gastroenterology consult pending. If ERCP intervention is indicated patient will require transfer to facility with ERCP capabilities as we do not offer that treatment. Discussed at the bedside with and patient. I have personally spent 40 minutes of critical care time in the direct management of this patient. This is a life/limb threatening event. This i ncludes time spent evaluating patient, direct bedside care, chart review, placing orders, interpretation of diagnostic studies, discussion with consultants, patient, and/or family members regarding treatment decisions, as well as other required patient management activities. This time is exclusive of all separately billable procedures, and teaching time and separate from and in addition to any other critical care service time. Coding Level of Care Code 86949 CRITICAL CARE 1ST 30-74M
[2024-04-19] MEDS: LANTUS PER UNIT CHARGE SQ SCH (11:10)
[2024-04-19] MEDS: SODIUM CHLORIDE 0.9% 1,000 ML IV SCH (11:22)
[2024-04-19 11:45] LABS: Anion Gap 10 (3-11); Blood Urea Nitrogen 15 mg/dl (6-23); Calcium 7.7 mg/dl (8.6-10.3); Carbon Dioxide 27 mmol/L (21-32); Chloride 99 mmol/L (98-107); Creatinine Clr Calc Pharmacy 560.5 ml/min; Est GFR (African American) > 150.0 ml/min; Est GFR (Non-African American) > 150.0 ml/min; Glucose 150 mg/dl (70-99(Fasting)); Potassium 2.8 mmol/L (3.5-5.1); Sodium 136 mmol/L (136-145)
--- NOTE | 2024-04-19 12:17 | Gastrointestinal Consultation ---
Date of Consultation April 19, 2024 Assessment & Plan (1) Dilated bile duct: (2) Cholangitis: (3) Pancreatitis: Plan -Continue supportive treatment for pancreatitis and treatment of cholangitis with antibiotics. T bili is within normal limits at present, so would continue to monitor that value moving forward; however would have a low threshold for transferring patient for possible ERCP based on imaging concerns. Supervising Physician Co-Signing Physician Notes Chart reviewed, the patient seen and examined. Discussed with patient's . MRCP reviewed, no evidence of choledocholithiasis, LFTs are normal. Cholangitis is very unlikely. Acute pancreatitis. Portal vein and SMV thrombosis. Continue supportive care. Continue antibiotics. Continue heparin, switch to anticoagulation when stable. Restart tube feedings. History of Present Illness Reason for Consultation: abd pain, abn ct abd Attending Physician: Shree Fofana MD History of Present Illness Patient is a 38 yo male with complicated medical history of ALS, ventilator dependent respiratory failure secondary to ALS, aspiration risk status post PEG tube placement, chronic systolic heart failure (EF 45 to 50%, TTE 2021), history of PAF, PSVT, JOSE ALFREDO, pancreatitis/pseudocyst as per records, recent diagnosis DM 2, chronic anemia (baseline hemoglobin of 13) who presented to the ED with abdominal pain, nausea, & vomiting along with a cough. His brought him to the ED for further evaluation. He was recently hospitalized for septic shock and hyperglyemic crisis and was ultimately transferred to the [facility] in [place] where he had a 1 week long confinement. Patient's notes that though he was transferred for an ERCP, they hesitated to do that at the [facility] for fear of pancreatitis as this had happened after a previous ERCP. She notes the patient was medically managed and completed a week of antibiotics via IV. When he returned to the ED this time he underwent an CT scan that indicated the followin. 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 2. There is inflammatory stranding surrounding the pancreas. This is concerning for acute edematous pancreatitis. A 1.2 cm fluid collection of the uncinate process is consistent with an acute peripancreatic fluid collection. No hemorrhage or necrosis. 3. Thickening of the bladder wall is concerning for cystitis. 4. Fatty infiltration of the liver. Please note there is mild enhancement and irregularity of the distal common bile duct without definitive evidence of filling defect. This is concerning for ascending cholangitis. MRCP obtained: 1. There is inflammatory stranding surrounding the pancreas. No hemorrhage, necrosis or organized peripancreatic fluid collection. This is most consistent with acute edematous pancreatitis. Redemonstrated nonocclusive thrombus of the portal, splenic and superior mesenteric veins. 2. Multiple cystic lesions of the pancreas measure up to 1.5 cm. This is concerning for acute peripancreatic fluid collections. 3. Mildly dilated common bile duct measuring 7 mm without filling defect. There is tapering of the distal common bile duct. This could relate to ascending cholangitis. T bili was 1.1 on admission and is now 0.6. No Jaundice. AST, ALT unremarkable. Lipase 136. WBC count 24,550. He is on IV anticoagulation due to the thrombosis findings. He is being treated for a necrotic pneumonia (suspicious for hospital acquired). TB rule out in process. He is PEG tube fed. He is on IV Zosyn which has seemed to improve his WBC count. Allergies Allergy/AdvReac Type Severity Reaction Status Date / Time hydromorphone [From Dilaudid] AdvReac makes pt Verified 03/31/24 00:58 retain urine Home Medications Medication Instructions Recorded Confirmed Type acetaminophen 160 mg/5 mL oral 640 mg feeding tube Q6 PRN Pain, 05/07/22 04/19/24 History liquid (Children's Acetaminophen) Mild atropine 1 % eye drops 1 drp sublingual QID PRN increased 05/07/22 04/19/24 History secretions nystatin 100,000 unit/gram topical 1 applic topical BID 05/07/22 04/19/24 History powder zinc oxide 20 % topical ointment 1 applic topical TID PRN SORES 05/07/22 04/19/24 History A,D-aloe hmso-hzwtrcywfl-v.pet 1 ea topical BID PRN scrotal area 06/10/22 04/19/24 History topical ointment carboxymethylcellulose sodium 0.5 1 drp OPB UD PRN Dry Eye(S) 06/10/22 04/19/24 History % eye drops dextran 70-hypromellose (PF) 0.1 1 drp OPB QID PRN Dry Eyes 06/10/22 04/19/24 History %-0.3 % eye drops in a dropperette (Artificial Tears (PF)) famotidine 40 mg/5 mL (8 mg/mL) 20 mg feeding tube BID 06/10/22 04/19/24 History oral suspension midodrine 5 mg tablet 5 mg feeding tube TID 06/10/22 04/19/24 History polyethylene glycol 3350 17 17 g feeding tube DAILY PRN 06/10/22 04/19/24 His tory gram/dose oral powder (Miralax) Constipation morphine 10 mg/5 mL oral solution 5 mg feeding tube Q2H PRN Pain 10/30/22 04/19/24 History [place] 1.4 Liquid Vanilla 1 ea G-tube 5XD 04/23/23 04/19/24 History Lactobacillus acidophilus 2 cap feeding tube DAILY 04/23/23 04/19/24 History (Acidophilus capsule) hydrocortisone 2.5 % topical 1 applic topical BID PRN Itching 04/23/23 04/19/24 History ointment white petrolatum 57 % topical 1 ea topical BID PRN protectant 04/23/23 04/19/24 History paste (Remedy Phytoplex Z-Guard) ciclopirox 0.77 % topical cream 1 applic topical 3XWK 03/31/24 04/19/24 History (Ciclodan) coenzyme Q10 100 mg/5 mL oral syrup 10 mg feeding tube DAILY 03/31/24 04/19/24 History ibuprofen 100 mg/5 mL oral 200 mg feeding tube TID PRN Fever 03/31/24 04/19/24 History suspension Or Pain senna leaf extract 176 mg/5 mL 15 ml feeding tube 3XWK 03/31/24 04/19/24 History oral syrup (senna) Patient History Medical History Pressure ulcer CLOSED ON BUTTOCK Tracheostomy in place 12/2021 ORIGINALLY PLACED (LAST CHANGED 10/2022) Hypotension NO CARDS Hx of pancreatitis Pseudocyst of pancreas Left ventricular systolic dysfunction Uses feeding tube G-J TUBE USED FOR MEDS AND FEEDINGS Slow gastric motility D/T ALS Dry eye syndrome Cardiac murmur AN INFANT Sleep apnea TRILEGY MACHINE WITH 2.5L (WEARS CONT) ALS (amyotrophic lateral sclerosis) DX FEBRUARY 2014>CAN NOT MOVE Surgical History History of esophagogastroduodenoscopy (EGD) Hx of LASIK PRK S/P percutaneous endoscopic gastrostomy (PEG) tube placement History of tooth extraction History of herniorrhaphy Family History Mother Family history of diabetes mellitus Other No family history of adverse response to anesthesia Social History Smoking Status: Never smoker Second Hand Exposure: No; Do You Dip or Chew Tobacco: No; Hx Alcohol Use: No Hx Substance Use: No Preferred Language: Slovenian Communication Ability: Effective Communication Ability Comment: pt can not talk--uses electronic table to communicate; signs consents Technical Advisor Required: No Beliefs That Will Affect Care: None marital status: Current Living Situation: Spouse Current Living Situation Comment: has 2 personal aides to help in home How many Children do You have: 3 Other Information That Helps Us Care for You: No Feels Safe at Home: Yes Safety Concerns: Feels Safe At This Time Assistive Devices: Hospital Bed, Mechanical Lift and Oxygen - Continuous Assistive Devices Comment: trach/vent/peg tube Review of Systems Review of Systems: Other ( assists with some history) Gastrointestinal: + abdominal pain Physical Exam Constitutional: + ill appearing Respiratory: no labored breathing Gastrointestinal (Abdomen): Inspection/Auscultation: abdomen normal to inspection Psychiatric: Orientation: alert and oriented x 3 Results & Data Vital Signs (Past 12 Hours) Vital Signs Temp Pulse Pulse Resp BP BP Pulse Ox 04/19/24 11:00 37.2 C 93 H 14 97/62 L 99 04/19/24 10:43 95 H 14 99 04/19/24 10:00 104/64 04/19/24 10:00 94 H 14 99 04/19/24 09:09 94 H 14 98 04/19/24 08:25 98 H 14 99 04/19/24 08:09 100 H 14 98 04/19/24 08:00 98 H 04/19/24 08:00 04/19/24 08:00 04/19/24 07:42 100 H 14 97/64 L 98 04/19/24 07:03 94 H 14 97/64 L 99 04/19/24 06:18 91 H 14 98 06/17/24 05:59 04/19/24 05:48 96 H 14 97 04/19/24 05:48 72/50 L 04/19/24 05:45 77/53 L 04/19/24 05:45 94 H 14 97 04/19/24 05:30 83/55 L 04/19/24 05:30 92 H 14 98 04/19/24 05:07 107 H 14 98 04/19/24 05:03 101 H 14 97 04/19/24 04:45 107 H 14 98 04/19/24 04:45 94/69 L 04/19/24 04:30 107 H 14 100 04/19/24 04:30 98/69 L 04/19/24 04:23 37.0 C 113 H 16 108/74 100 04/19/24 04:15 120 H 13 04/19/24 02:45 92 H 10 L 95 04/19/24 02:30 37.0 C 89 12 89/65 L 94 04/19/24 02:21 85 10 L 98/71 L 97 04/19/24 02:08 75 10 L 95 04/19/24 01:39 84 14 95/65 L 97 04/19/24 01:00 84 14 81/61 L 95 04/19/24 00:15 90/65 L O2 Del Method FiO2 04/19/24 11:00 Mechanical Vent 04/19/24 10:43 30 04/19/24 10:00 04/19/24 10:00 04/19/24 09:09 04/19/24 08:25 30 04/19/24 08:09 04/19/24 08:00 04/19/24 08:00 30 04/19/24 08:00 Mechanical Vent 04/19/24 07:42 Mechanical Vent 04/19/24 07:03 Mechanical Vent 04/19/24 06:18 04/19/24 05:59 Mechanical Vent 04/19/24 05:48 04/19/24 05:48 04/19/24 05:45 04/19/24 05:45 04/19/24 05:30 04/19/24 05:30 04/19/24 05:07 30 04/19/24 05:03 04/19/24 04:45 04/19/24 04:45 04/19/24 04:30 04/19/24 04:30 04/19/24 04:23 Mechanical Vent 04/19/24 04:15 04/19/24 02:45 04/19/24 02:30 04/19/24 02:21 04/19/24 02:08 30 04/19/24 01:39 04/19/24 01:00 04/19/24 00:15 PG Care Time/CCT Total # of Minutes Spent Total Time Spent with Patient: Total time spent is greater than 50% in coordination of care (as documented) at patient's floor/unit and/or counseling patient: Coding Level of Care Code 72512 IN/OBS CONSULT LVL 4,60M Diagnoses Dilated bile duct K83.8 Cholangitis K83.09 Pancreatitis K85.90 Acute pancreatitis complication: unspecified Chronicity: acute Pancreatitis type: unspecified pancreatitis type (3) Pancreatitis Acute pancreatitis complication: unspecified Chronicity: acute Pancreatitis type: unspecified pancreatitis type Qualified Code(s): K85.90 - Acute pancreatitis without necrosis or infection, unspecified
[2024-04-19] MEDS ORDERED: LACTATED RINGER'S 1,000 ML IV SCH (13:00)
[2024-04-19] MEDS: POTASSIUM ACETATE/NSS 10 MEQ/105 ML BAG IV SCH (13:40)
--- NOTE | 2024-04-19 13:57 | Communication Note ---
Date of Service: April 19, 2024 Brief [facility] Med Note Consult received/appreciated Chart reviewed/case d/w primary team pt admitted acutely overnight Will plan to see tomorrow after he and have had some time to meet with additional consultants and see how he responds to trial of therapy. patient not seen today/no charge submitted. I will be in CCP clinic this afternoon Thank you for allowing us to participate in the ongoing care of this patient. Please page with any additional concerns. Kaz Vogt DNP Director, Palliative Medicine
[2024-04-19 16:34] LABS: ANTI-Xa, UFH(UnfractionatedHep 0.13 IU/ml (0.3-0.7)
[2024-04-19 16:50] LABS: Adenovirus PCR Not Detected (NotDetected); Bordetella parapertussis PCR Not Detected (NotDetected); Bordetella pertussis PCR Not Detected (NotDetected); Chlamydia pneumoniae PCR Not Detected (NotDetected); Coronavirus 229E PCR Not Detected (NotDetected); Coronavirus CoV-2 (COVID19)PCR Not Detected (NotDetected); Coronavirus HKU1 PCR Not Detected (NotDetected); Coronavirus NL63 PCR Not Detected (NotDetected); Coronavirus OC43PCR Not Detected (NotDetected); Human Metapneumovirus PCR Not Detected (NotDetected); Influenza A PCR Not Detected (NotDetected); Influenza B PCR Not Detected (NotDetected); Mycoplasma pneumoniae PCR Not Detected (NotDetected); Parainfluenza Virus 1 PCR Not Detected (NotDetected); Parainfluenza Virus 2 PCR Not Detected (NotDetected); Parainfluenza Virus 3 PCR Not Detected (NotDetected); Parainfluenza Virus 4 PCR Not Detected (NotDetected); Respiratory Syncytial VirusPCR Not Detected (NotDetected); Rhinovirus/Enterovirus PCR Not Detected (NotDetected)
--- NOTE | 2024-04-19 17:03 | Electrocardiogram Report ---
Test Reason : Blood Pressure : / mmHG Vent. Rate : 123 BPM Atrial Rate : 123 BPM P-R Int : 114 ms QRS Dur : 096 ms QT Int : 358 ms P-R-T Axes : 030 030 071 degrees QTc Int : 512 ms Sinus tachycardia Minimal voltage criteria for LVH, may be normal variant Nonspecific ST abnormality Abnormal ECG When compared with ECG of 30-MAR-2024 20:50, ST now depressed in Inferior leads ST no longer elevated in Anterior leads Confirmed by José Sol ([id number]) on 04/19/2024 5:03:09 PM Referred By: REFERRED SELF Confirmed By:José Sol
--- NOTE | 2024-04-19 17:13 | Hospitalist Progress Note ---
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 IV heparin Full code as per . Patient requesting updates from providers. Ms. Estephania Doll, contact #[phone]. Admission and Anticipated Discharge Date Admission Date: April 19, 2024 Subjective Follow-up for recurrent cholangitis, etc. Seen resting in bed, awake and alert Communicating via eye-movement controlled keyboard States he feels much better No shortness of breath, abdominal pain, nausea vomiting Patient's at the bedside present Review of Systems Review of Systems: all noted and negative except for above Physical Exam Physical Exam: General- oriented , not in distress,breathing with no effort or accessory muscle use Eyes- anicteric Neck- no JVD Lungs- clear breath sounds bilaterally, no rales/wheezes Heart- normal rate, regular rhythm; no murmurs Abdomen- normal bowel sounds, nondistended, soft, nontender PEG tube in place Extremities- no pretibial edema, no calf tenderness Neuro- alert, oriented x 3; no gross focal neurologic deficits Skin- warm & dry Results & Data Results & Data Vital Signs (Past 12 Hours) Vital Signs Temp Pulse Resp BP Pulse Ox O2 Del Method FiO2 04/19/24 16:00 88 14 100/60 99 04/19/24 16:00 30 04/19/24 15:25 94 H 14 98 30 04/19/24 15:00 93 H 14 98 30 04/19/24 14:00 90 14 97/56 L 98 Mechanical Vent 04/19/24 13:30 86/51 L 04/19/24 13:00 83 14 88/52 L 98 Mechanical Vent 04/19/24 12:00 30 04/19/24 12:00 90 14 96/63 L 99 Mechanical Vent 04/19/24 11:00 37.2 C 93 H 14 97/62 L 99 Mechanical Vent 04/19/24 10:43 95 H 14 99 04/19/24 10:00 104/64 04/19/24 10:00 94 H 14 99 04/19/24 09:09 94 H 14 98 04/19/24 08:25 98 H 14 99 04/19/24 08:09 100 H 14 98 04/19/24 08:00 98 H 04/19/24 08:00 30 04/19/24 08:00 Mechanical Vent 04/19/24 07:42 100 H 14 97/64 L 98 Mechanical Vent 04/19/24 07:03 94 H 14 97/64 L 99 Mechanical Vent 04/19/24 06:18 91 H 14 98 04/19/24 05:59 Mechanical Vent 04/19/24 05:48 96 H 14 97 04/19/24 05:48 72/50 L 04/19/24 05:45 77/53 L 04/19/24 05:45 94 H 14 97 04/19/24 05:30 83/55 L 04/19/24 05:30 92 H 14 98 all noted and reviewed including below
[2024-04-19] MEDS: MoRPHine SULFATE 2 MG/ML CARP IV PRN (20:01)
[2024-04-19 23:38] LABS: ANTI-Xa, UFH(UnfractionatedHep 0.18 IU/ml (0.3-0.7)
[2024-04-20] MEDS: HEPARIN SOD (PORCINE) 1000 UNIT/ML IV ONE ×2 (00:34→11:02)
[2024-04-20 05:39] LABS: Alanine Aminotransferase 8 U/L (7-52); Albumin Level 2.3 gm/dl (3.4-5.0); Alkaline Phosphatase 101 U/L (34-104); Aspartate Aminotransferase 15 U/L (13-39); Bilirubin Direct 0.2 mg/dl (0-0.2); Bilirubin,Total 0.6 mg/dl (0.2-1.0); Creatinine Clr Calc Pharmacy 560.5 ml/min; Est GFR (African American) > 150.0 ml/min; Est GFR (Non-African American) > 150.0 ml/min; Lipase 124 U/L (11-82); Total Protein 5.9 gm/dl (6.0-8.3)
[2024-04-20 07:23] LABS: Anion Gap 9 (3-11); Blood Urea Nitrogen 8 mg/dl (6-23); Calcium 7.6 mg/dl (8.6-10.3); Carbon Dioxide 25 mmol/L (21-32); Chloride 104 mmol/L (98-107); Glucose 93 mg/dl (70-99(Fasting)); Phosphorus 3.1 mg/dl (2.5-4.9); Potassium 3.2 mmol/L (3.5-5.1); Sodium 138 mmol/L (136-145)
[2024-04-20 07:38] LABS: Basophils # (auto) 0.02 K/uL (0.00-0.20); Basophils % (auto) 0.1 %; Eosinophils % (auto) 2.1 %; Hematocrit (blood only) 26.6 % (42.0-52.0); Hemoglobin 8.5 g/dl (14.0-18.0); Immature Granulocytes # (auto) 0.09 K/uL (0.01-0.20); Immature Granulocytes % (auto) 0.6 %; Lymphocytes # (auto) 2.01 K/uL (1.20-3.40); Lymphocytes % (auto) 13.9 %; Mean Corpuscular Hemoglobin 28.1 pg (25.0-34.0); Mean Corpuscular Volume 87.8 fL (80.0-100.0); Mean Platelet Volume 9.7 fL (9.4-12.4); Monocytes # (auto) 0.78 K/uL (0.11-0.59); Monocytes % (auto) 5.4 %; Neutrophils # (auto) 11.23 K/uL (1.40-6.50); Neutrophils % (auto) 77.9 %; Platelet Count 278 K/uL (130-400); RDW Coefficient of Variation 16.9 % (11.5-14.5); Red Blood Count 3.03 M/uL (4.70-6.10); White Blood Count 14.43 K/ul (4.8-10.8)
--- NOTE | 2024-04-20 08:03 | Critical Care Progress Note ---
Date of Service April 20, 2024 Assessment & Plan (1) Lung abscess: Plan: Neuro - ALSpatient with end-stage ALS and ventilator dependent with tracheostomy and G/J-tube for feeds. Cardiac - Hypotension versus dysautonomia: Managed on chronic midodrine -Echocardiogram pending -Patient's blood pressure appears to be running relatively lower than during prior admissions: appears to Correlate to fever episodes Respiratory - Mechanical ventilationpatient with end-stage ALS and ventilator dependent with previous tracheostomy. GI - GJ tuben.p.o. for now. Abdominal pain: Acute cholangitis vs pancreatitis MRCP reviewed -Reviewed GI recommendations -LFTs within normal limits, bilirubin within normal limits - 04/19 MRCP CBD: 1.5 cm no filling defect - 04/01 GBUS CBD : 0.7 cm at level of hepatic artery -Doubtful this represents ascending cholangitis at the present, more C/W pancreatitis Acute on chronic pancreatitisday 2 bowel rest -Patient's highest lipase readings were back in June 2022, he has not trended within normal limits since April 2022 Venous thromboembolism: Nonocclusive of portal vein and splanchnic circulation -Continue systemic anticoagulation RENAL/LYTES - Hypokalemia: Continue repletion -4 bags potassium acetate Hypocalcemia -Checking ionized calcium and replace as necessary in the setting of chronic pancreatitis Maintenance fluids while n.p.o. -Transition from normal saline to Plasma-Lyte at 80 mL/h Lactic acidosisresolved - Foleystrict I's and O's -Frequent urinary tract infections, normally straight caths -Currently with indwelling Varela -Pansensitive E. coli urinary tract infection -This will be treated with antibiotics for coverage of lung abscess, continue Varela for hygiene purposes and to minimize instrumentation for a couple of days ENDO - No history of diabetes or thyroid disease. ICU hyperglycemic protocol HEME - H&H stable -Type and screen ordered for a.m. labs Systemic anticoagulation: Venous thromboembolism: Nonocclusive of portal vein and splanchnic circulation -Would consider transition to oral anticoagulant once outside of need for possible sampling of lung abscess/additional invasive procedures ID - Pansensitive E. coli urinary tract infection Lung abscess (cavitary lesion) -Chronic vent patient at risk for Pseudomonas, healthcare associated infections, MRSA -Sputum culture pending, no strong indication for bronchoscopy at present -Ongoing fever despite coverage with Zyvox and Zosyn, if this fever continues would strongly consider sampling of lung abscess (which may be best facilitated by thoracic surgery) -Will likely require weeks of antibiotic therapy, no indication to de- escalate to oral antibiotics (may need to exclude Pseudomonas for oral therapy when afebrile) - quant gold pending. Continue isolation precautions Possible intra-abdominal sources: Doubtful -Doubtful ascending cholangitis, also doubtful infected pancreatic necrosis given recent imaging findings, -Will likely necessitate follow-up imaging to include necrosis/pseudocyst/evolution of lung abscess/cavitary lesion -Blood cultures remain negative -Will repeat blood cultures during episodes of fibrillated to increase diagnostic yield -Echocardiogram to exclude valvular abnormality, endocarditis given lung abscess LINES/IV ACCESS - Peripheral IVs, J-tube DVT PROPHYLAXIS - SCDs, heparin drip CODE STATUS: Full code Disposition: If patient remains febrile will likely need additional invasive procedures/evaluation by thoracic surgery versus IR guided drainage, would necessitate transfer as we do not have Thoracics (2) Hepatic vein thrombosis: (3) Pancreatitis: (4) Pneumonia: (5) Acute UTI: (6) Dependent on ventilator: (7) ALS (amyotrophic lateral sclerosis): (8) E. coli UTI: Admission and Anticipated Discharge Date Admission Date: April 19, 2024 Physical Exam Physical Exam: General: Alert. Communicates via eye-movement Skin: Warm, dry, Head: Atraumatic Ears, nose, mouth and throat: Tracheostomy in place Cardiovascular: Normal peripheral perfusion, mild tachycardia noted on bedside monitor Respiratory: Ventilator settings reviewed Gastrointestinal: Non distended, PEG tube in place Musculoskeletal: Muscle wasting consistent with ALS Results & Data Results & Data Vital Signs (Past 12 Hours) Vital Signs Temp Pulse Resp BP Pulse Ox O2 Del Method FiO2 04/20/24 06:18 38.3 C H 91 H 14 98 04/20/24 06:00 88/51 L 04/20/24 05:45 38.3 C H 91 H 14 99 04/20/24 05:06 38.1 C H 93 H 14 98 04/20/24 05:00 85/52 L 04/20/24 04:48 38.0 C H 97 H 14 98 04/20/24 04:33 37.9 C H 95 H 14 98 04/20/24 04:00 90/54 L 04/20/24 04:00 30 04/20/24 03:54 37.8 C H 94 H 14 98 04/20/24 03:09 37.6 C H 91 H 14 98 04/20/24 02:56 94 H 14 100 30 04/20/24 02:00 37.5 C 88 14 99 04/20/24 02:00 92/59 L 04/20/24 01:30 98/63 L 04/20/24 01:30 37.4 C 86 14 100 04/20/24 01:00 93/65 L 04/20/24 00:51 37.4 C 83 14 100 04/20/24 00:30 88/60 L 04/20/24 00:30 37.4 C 89 14 98 04/20/24 00:12 37.4 C 91 H 14 99 04/20/24 00:00 30 04/19/24 23:09 90 14 98 30 04/19/24 23:00 37.5 C 89 14 99 04/19/24 22:30 90/57 L 04/19/24 22:27 37.6 C H 93 H 14 98 04/19/24 22:15 37.6 C H 91 H 14 99 04/19/24 21:30 101/64 04/19/24 21:12 37.7 C H 92 H 14 100 04/19/24 21:00 37.7 C H 91 H 14 98 04/19/24 20:17 95 H 15 100 30 04/19/24 20:00 37.8 C H 95 H 14 100 04/19/24 20:00 Mechanical Vent 04/19/24 20:00 30 Critical Care Results & Data Vital Signs (Past 12 Hours) Vital Signs Temp Pulse Resp BP Pulse Ox O2 Del Method FiO2 04/20/24 06:18 38.3 C H 91 H 14 98 04/20/24 06:00 88/51 L 04/20/24 05:45 38.3 C H 91 H 14 99 04/20/24 05:06 38.1 C H 93 H 14 98 04/20/24 05:00 85/52 L 04/20/24 04:48 38.0 C H 97 H 14 98 04/20/24 04:33 37.9 C H 95 H 14 98 04/20/24 04:00 90/54 L 04/20/24 04:00 30 04/20/24 03:54 37.8 C H 94 H 14 98 04/20/24 03:09 37.6 C H 91 H 14 98 04/20/24 02:56 94 H 14 100 30 04/20/24 02:00 37.5 C 88 14 99 04/20/24 02:00 92/59 L 04/20/24 01:30 98/63 L 04/20/24 01:30 37.4 C 86 14 100 04/20/24 01:00 93/65 L 04/20/24 00:51 37.4 C 83 14 100 04/20/24 00:30 88/60 L 04/20/24 00:30 37.4 C 89 14 98 04/20/24 00:12 37.4 C 91 H 14 99 04/20/24 00:00 30 04/19/24 23:09 90 14 98 30 04/19/24 23:00 37.5 C 89 14 99 04/19/24 22:30 90/57 L 04/19/24 22:27 37.6 C H 93 H 14 98 04/19/24 22:15 37.6 C H 91 H 14 99 04/19/24 21:30 101/64 04/19/24 21:12 37.7 C H 92 H 14 100 04/19/24 21:00 37.7 C H 91 H 14 98 04/19/24 20:17 95 H 15 100 30 04/19/24 20:00 37.8 C H 95 H 14 100 04/19/24 20:00 Mechanical Vent 04/19/24 20:00 30 Lab & Micro Results (Past 24 Hours) RBC 3.03 M/uL (4.70-6.10) L 04/20/24 WBC 14.43 K/ul (4.8-10.8) H 04/20/24 Hgb 8.5 g/dl (14.0-18.0) L 04/20/24 Hct 26.6 % (42.0-52.0) L 04/20/24 MCV 87.8 fL (80.0-100.0) 04/20/24 MCH 28.1 pg (25.0-34.0) 04/20/24 MCHC 32.0 g/dL (32.0-36.0) 04/20/24 RDW Standard Deviation 53.0 fL (36.4-46.3) H 04/20/24 RDW Coefficient of Variation 16.9 % (11.5-14.5) H 04/20/24 Plt Count 278 K/uL (130-400) 04/20/24 MPV 9.7 fL (9.4-12.4) 04/20/24 Neutrophils (%) (Auto) 77.9 % 04/20/24 Lymphocytes (%) (Auto) 13.9 % 04/20/24 Monocytes # (Auto) 0.78 K/uL (0.11-0.59) H 04/20/24 Eosinophils # (Auto) 0.30 K/uL (0.00-0.50) 04/20/24 Immature Granulocyte % (Auto) 0.6 % 04/20/24 Neutrophils # (Auto) 11.23 K/uL (1.40-6.50) H 04/20/24 Lymphocytes # (Auto) 2.01 K/uL (1.20-3.40) 04/20/24 Monocytes # (Auto) 0.78 K/uL (0.11-0.59) H 04/20/24 Eosinophils # (Auto) 0.30 K/uL (0.00-0.50) 04/20/24 Basophils # (Auto) 0.02 K/uL (0.00-0.20) 04/20/24 Immature Granulocyte # (Auto) 0.09 K/uL (0.01-0.20) 4 Na 138 mmol/L (136-145) 04/20/24 K 3.2 mmol/L (3.5-5.1) L 04/20/24 Cl 104 mmol/L (98-107) 04/20/24 CO2 25 mmol/L (21-32) 04/20/24 Anion Gap 9 (3-11) 04/20/24 BUN 8 mg/dl (6-23) 04/20/24 Creatinine < 0.20 mg/dl (0.6-1.4) L 04/20/24 Estimated GFR ( Amer) > 150.0 ml/min 04/20/24 Estimated GFR (Non-Af Amer) > 150.0 ml/min 04/20/24 BUN/Creatinine Ratio TNP 04/20/24 Glu 93 mg/dl (70-99(Fasting)) 04/20/24 Ca 7.6 mg/dl (8.6-10.3) L 04/20/24 Phosphorus Level 3.1 mg/dl (2.5-4.9) 04/20/24 Total Bilirubin 0.6 mg/dl (0.2-1.0) 04/20/24 Direct Bilirubin 0.2 mg/dl (0-0.2) 04/20/24 AST 15 U/L (13-39) 04/20/24 ALT 8 U/L (7-52) 04/20/24 Alkaline Phosphatase 101 U/L (34-104) 04/20/24 TP 5.9 gm/dl (6.0-8.3) L 04/20/24 Albumin 2.3 gm/dl (3.4-5.0) L 04/20/24 Mg 2.0 mg/dl (1.7-2.4) 04/20/24 04:44 Calcium Level 7.6 mg/dl (8.6-10.3) L 04/20/24 04:44 Ionized Calcium 1.05 mmol/L (1.12-1.32) L 04/20/24 09:19 Microbiology 04/18/24 20:25 Urine Culture - Preliminary Urine,Straight Cath Escherichia coli 04/18/24 20:16 Aerobic Blood Culture - Preliminary Blood No growth in Aerobic bottle after 24 hours. Anaerobic Blood Culture - Preliminary No growth in Anaerobic bottle after 24 hours. 04/18/24 20:08 Aerobic Blood Culture - Preliminary Blood No growth in Aerobic bottle after 24 hours. Anaerobic Blood Culture - Preliminary No growth in Anaerobic bottle after 24 hours. 04/19/24 05:00 Gram Stain - Final Sputum,Vent Suction I & O Totals 24 Hours 04/19/24 04/20/24 04/21/24 06:59 06:59 06:59 Intake Total 3176.667 / 3176.667 5241.000 / 5241.000 155.5 / 155.5 Output Total 650 / 650 2375 / 2375 Balance 2526.667 / 2526.667 2866.000 / 2866.000 155.5 / 155.5 Cumulative 04/18/24 19:05 thru 04/20/24 07:18 Intake Total 8573.167 Output Total 3025 Balance 5548.167 RT Ventilator Mngmt (Last Documented) Ventilator Ordered Settings Ventilator Support Mode Assist Control 04/20/24 04:00 Respiratory Rate 14 04/20/24 06:18 Ventilator Tidal Volume 500 04/20/24 04:00 Setting Minute Ventilation 7 04/20/24 02:56 Positive End Expiratory 5 04/20/24 04:00 Pressure Fraction of Inspired Oxygen 30 04/20/24 04:00 Peak Inspiratory Flow 50 04/19/24 15:25 Machine Comment changes made per Dr. Salas due 04/19/24 02:08 to VBG Ventilator - PT Measurements Respiratory Rate 14 Exhaled Tidal Volume 499 Minute Ventilation 7 Peak Inspiratory Airway 20 Pressure Plateau Pressure 13 Respiratory Cycle Inspiratory: 1:4.4 Expiratory Ratio Inspiratory Phase Time 0.80 End-Tidal CO2 28 Static Lung Compliance 71.29 Dynamic Lung Compliance 35.64 Normal Static Lung Compliance 48.00 Coding Level of Care Code 43252 SUB INP/OBS CARE 3/50MIN Diagnoses Abscess of lower lobe of left lung without pneumonia J85.2 Laterality: left Lung location: lower lobe of lung Pulmonary abscess pneumonia presence: without pneumonia Hepatic vein thrombosis I82.0 Pancreatitis K85.90 Acute pancreatitis complication: unspecified Chronicity: acute Pancreatitis type: unspecified pancreatitis type Pneumonia J18.9 Laterality: left Lung location: lower lobe of lung Pneumonia type: due to unspecified organism Acute UTI N39.0 Dependent on ventilator Z99.11 ALS (amyotrophic lateral sclerosis) G12.21 E. coli UTI N39.0; B96.20 (1) Lung abscess Laterality: left Lung location: lower lobe of lung Pulmonary abscess pneumonia presence: without pneumonia Qualified Code(s): J85.2 - Abscess of lung without pneumonia (3) Pancreatitis Acute pancreatitis complication: unspecified Chronicity: acute Pancreatitis type: unspecified pancreatitis type Qualified Code(s): K85.90 - Acute pancreati tis without necrosis or infection, unspecified (4) Pneumonia Laterality: left Lung location: lower lobe of lung Pneumonia type: due to unspecified organism Qualified Code(s): J18.9 - Pneumonia, unspecified organism
[2024-04-20] MEDS: PLASMA-LYTE A 1,000 ML IV SCH (09:03)
[2024-04-20] MEDS: POTASSIUM ACETATE/NSS 10 MEQ/105 ML BAG IV SCH (09:04)
[2024-04-20 09:20] LABS: ANTI-Xa, UFH(UnfractionatedHep 0.19 IU/ml (0.3-0.7)
--- NOTE | 2024-04-20 09:30 | Gastroenterology Progress Note ---
Date of Service April 20, 2024 Assessment & Plan (1) Pancreatitis: Plan: 38 year old male with history of ALS s/p trach, ventilator, G-tube placement, chronic pancreatitis , history of pancreatic pseudocyst and pancreatic necrosis, chronic respiratory failure requiring continuous mechanical ventilation through tracheostomy, allergic rhinitis, impaired mobility and ADLs, history of severe sepsis pneumonia, history of isolated atrial fibrillation, cardiac murmur, dry eye syndrome, history of left ventricular systolic dysfunction admitted to the ICU with sepsis, recurrent pancreatitis. His WBC is downtrending on IV ABX, blood cultures are negative w/ normal LFTs, doubt a biliary source. May continue to treat his pancreatitis conservatively w/ IVF hydration. May continue tube feeds as tolerated. [employer] and glucose. Defer AC agent to primary service. Please recall GI as needed. Will sign off. I spent a total of 45 minutes on the date of service in review of patient's record, and previously obtained information in person and appropriate medical visit, discussion and education of plan, with patient and/or caregiver, placing orders for tests/referral/procedures as medically necessary and documentation of pertinent clinical information in patient's medical records for their visit today. Admission and Anticipated Discharge Date Admission Date: April 19, 2024 Subjective Pt was seen and evaluated, chart reviewed. 38 year old male with history of ALS s/p trach, ventilator, G-tube placement, chronic pancreatitis , history of pancreatic pseudocyst and pancreatic necrosis, chronic respiratory failure requiring continuous mechanical ventilation through tracheostomy, allergic rhinitis, impaired mobility and ADLs, history of severe sepsis pneumonia, history of isolated atrial fibrillation, cardiac murmur, dry eye syndrome, history of left ventricular systolic dysfunction admitted to the ICU with sepsis, recurrent pancreatitis. He was resting this AM. No family at bedside. No apparent distress with abdominal examination. WBC 34 --> 24 --> 14 Tbili 0.6 AST 15 ALT 8 ALKP 101 Lipase 124 Blood cx 03/30/24: no growth Urine cx 03/31/24: ecoli Blood cx 04/18/24: no growth Urine cx 04/18/24: ecoli MRCP 2023: There is inflammatory stranding surrounding the pancreas. No hemorrhage, necrosis or organized peripancreatic fluid collection. This is most consistent with acute edematous pancreatitis. Redemonstrated nonocclusive thrombus of the portal, splenic and superior mesenteric veins. Multiple cystic lesions of the pancreas measure up to 1.5 cm. This is concerning for acute peripancreatic fluid collections. Mildly dilated common bile duct measuring 7 mm without filling defect. There is tapering of the distal common bile duct. This could relate to ascending cholangitis. Review of Systems Review of Systems: Unable to assess Physical Exam Constitutional: Pt resting in bed with tablet, in no acute distress, however, chronically ill- appearing Respiratory: No labored breathing Gastrointestinal (Abdomen): Non distended, no apparent distress Skin: no rashes, warm and dry Results & Data Vital Signs (Past 12 Hours) Vital Signs Temp Pulse Resp BP Pulse Ox FiO2 04/20/24 07:40 101 H 14 98 30 04/20/24 06:18 38.3 C H 91 H 14 98 04/20/24 06:00 88/51 L 04/20/24 05:45 38.3 C H 91 H 14 99 04/20/24 05:06 38.1 C H 93 H 14 98 04/20/24 05:00 85/52 L 04/20/24 04:48 38.0 C H 97 H 14 98 04/20/24 04:33 37.9 C H 95 H 14 98 04/20/24 04:00 90/54 L 04/20/24 04:00 30 04/20/24 03:54 37.8 C H 94 H 14 98 04/20/24 03:09 37.6 C H 91 H 14 98 04/20/24 02:56 94 H 14 100 30 04/20/24 02:00 37.5 C 88 14 99 04/20/24 02:00 92/59 L 04/20/24 01:30 98/63 L 04/20/24 01:30 37.4 C 86 14 100 04/20/24 01:00 93/65 L 04/20/24 00:51 37.4 C 83 14 100 04/20/24 00:30 88/60 L 04/20/24 00:30 37.4 C 89 14 98 04/20/24 00:12 37.4 C 91 H 14 99 04/20/24 00:00 30 04/19/24 23:09 90 14 98 30 04/19/24 23:00 37.5 C 89 14 99 04/19/24 22:30 90/57 L 04/19/24 22:27 37.6 C H 93 H 14 98 04/19/24 22:15 37.6 C H 91 H 14 99 04/19/24 21:30 101/64 Laboratory Results 04/20/24 04/20/24 04/20/24 Range/Units 08:18 04:50 04:44 WBC 14.43 H D (4.8-10.8) K/ul RBC 3.03 L (4.70-6.10) M/uL Hgb 8.5 L (14.0-18.0) g/dl Hct 26.6 L (42.0-52.0) % MCV 87.8 (80.0-100.0) fL MCH 28.1 (25.0-34.0) pg MCHC 32.0 (32.0-36.0) g/dL RDW Std Deviation 53.0 H (36.4-46.3) fL RDW Coeff of [place]ou 16.9 H (11.5-14.5) % Plt Count 278 (130-400) K/uL MPV 9.7 (9.4-12.4) fL Immature Gran % (Auto) 0.6 % Neut % (Auto) 77.9 % Lymph % (Auto) 13.9 % [place] % (Auto) 5.4 % Eos % (Auto) 2.1 % Baso % (Auto) 0.1 % Neut # (Auto) 11.23 H (1.40-6.50) K/uL Lymph # (Auto) 2.01 (1.20-3.40) K/uL [place] # (Auto) 0.78 H (0.11-0.59) K/uL Eos # (Auto) 0.30 (0.00-0.50) K/uL Baso # (Auto) 0.02 (0.00-0.20) K/uL Immature Gran # (Auto) 0.09 (0.01-0.20) K/uL Heparin Anti-Xa, Unfract 0.19 L (0.3-0.7) IU/ml Sodium 138 (136-145) mmol/L Potassium 3.2 L (3.5-5.1) mmol/L Chloride 104 (98-107) mmol/L Carbon Dioxide 25 (21-32) mmol/L Anion Gap 9 (3-11) BUN 8 (6-23) mg/dl Creatinine < 0.20 L (0.6-1.4) mg/dl Est Cr Clr Drug Dosing 560.5 ml/min Est GFR ( Amer) > 150.0 ml/min Est GFR (Non-Af Amer) > 150.0 ml/min BUN/Creatinine Ratio TNP Glucose 93 (70-99(Fasting)) mg/dl POC Glucose (70-99) mg/dl Calcium 7.6 L (8.6-10.3) mg/dl Phosphorus 3.1 (2.5-4.9) mg/dl Magnesium 2.0 (1.7-2.4) mg/dl Total Bilirubin 0.6 (0.2-1.0) mg/dl Direct Bilirubin 0.2 (0-0.2) mg/dl AST 15 (13-39) U/L ALT 8 (7-52) U/L Alkaline Phosphatase 101 (34-104) U/L Total Protein 5.9 L (6.0-8.3) gm/dl Albumin 2.3 L (3.4-5.0) gm/dl Lipase 124 H (11-82) U/L Adenovirus (PCR) (NotDetected) B. pertussis DNA (PCR) (NotDetected) B.parapertussis DNA PCR (NotDetected) C. pneumoniae DNA (PCR) (NotDetected) Coronavirus OC43 (PCR) (NotDetected) Coronavirus HKU1 (PCR) (NotDetected) Coronavirus 229E (PCR) (NotDetected) SARS-CoV-2 (PCR) (NotDetected) Coronavirus NL63 (PCR) (NotDetected) Human Metapneumovir PCR (NotDetected) Influenza Type A (PCR) (NotDetected) Influenza Type B (PCR) (NotDetected) M. pneumoniae (PCR) (NotDetected) Parainfluenza 1 (PCR) (NotDetected) Parainfluenza 2 (PCR) (NotDetected) Parainfluenza 3 (PCR) (NotDetected) Parainfluenza 4 (PCR) (NotDetected) RSV (PCR) (NotDetected) Entero/Rhino (PCR) (NotDetected) Blood Type Pending Antibody Screen Pending 04/20/24 04/19/24 04/19/24 Range/Units 00:24 22:48 18:19 WBC (4.8-10.8) K/ul RBC (4.70-6.10) M/uL Hgb (14.0-18.0) g/dl Hct (42.0-52.0) % MCV (80.0-100.0) fL MCH (25.0-34.0) pg MCHC (32.0-36.0) g/dL RDW Std Deviation (36.4-46.3) fL RDW Coeff of [place]iss[place]ou (11.5-14.5) % Plt Count (130-400) K/uL MPV (9.4-12.4) fL Immature Gran % (Auto) % Neut % (Auto) % Lymph % (Auto) % [place] % (Auto) % Eos % (Auto) % Baso % (Auto) % Neut # (Auto) (1.40-6.50) K/uL Lymph # (Auto) (1.20-3.40) K/uL [place] # (Auto) (0.11-0.59) K/uL Eos # (Auto) (0.00-0.50) K/uL Baso # (Auto) (0.00-0.20) K/uL Immature Gran # (Auto) (0.01-0.20) K/uL Heparin Anti-Xa, Unfract 0.18 L (0.3-0.7) IU/ml Sodium (136-145) mmol/L Potassium (3.5-5.1) mmol/L Chloride (98-107) mmol/L Carbon Dioxide (21-32) mmol/L Anion Gap (3-11) BUN (6-23) mg/dl Creatinine (0.6-1.4) mg/dl Est Cr Clr Drug Dosing ml/min Est GFR ( Amer) ml/min Est GFR (Non-Af Amer) ml/min BUN/Creatinine Ratio Glucose (70-99(Fasting)) mg/dl POC Glucose 101 H 139 H (70-99) mg/dl Calcium (8.6-10.3) mg/dl Phosphorus (2.5-4.9) mg/dl Magnesium (1.7-2.4) mg/dl Total Bilirubin (0.2-1.0) mg/dl Direct Bilirubin (0-0.2) mg/dl AST (13-39) U/L ALT (7-52) U/L Alkaline Phosphatase (34-104) U/L Total Protein (6.0-8.3) gm/dl Albumin (3.4-5.0) gm/dl Lipase (11-82) U/L Adenovirus (PCR) (NotDetected) B. pertussis DNA (PCR) (NotDetected) B.parapertussis DNA PCR (NotDetected) C. pneumoniae DNA (PCR) (NotDetected) Coronavirus OC43 (PCR) (NotDetected) Coronavirus HKU1 (PCR) (NotDetected) Coronavirus 229E (PCR) (NotDetected) SARS-CoV-2 (PCR) (NotDetected) Coronavirus NL63 (PCR) (NotDetected) Human Metapneumovir PCR (NotDetected) Influenza Type A (PCR) (NotDetected) Influenza Type B (PCR) (NotDetected) M. pneumoniae (PCR) (NotDetected) Parainfluenza 1 (PCR) (NotDetected) Parainfluenza 2 (PCR) (NotDetected) Parainfluenza 3 (PCR) (NotDetected) Parainfluenza 4 (PCR) (NotDetected) RSV (PCR) (NotDetected) Entero/Rhino (PCR) (NotDetected) Blood Type Antibody Screen 04/19/24 04/19/24 04/19/24 Range/Units 15:40 11:16 11:15 WBC (4.8-10.8) K/ul RBC (4.70-6.10) M/uL Hgb (14.0-18.0) g/dl Hct (42.0-52.0) % MCV (80.0-100.0) fL MCH (25.0-34.0) pg MCHC (32.0-36.0) g/dL RDW Std Deviation (36.4-46.3) fL RDW Coeff of Aiss[place]ou (11.5-14.5) % Plt Count (130-400) K/uL MPV (9.4-12.4) fL Immature Gran % (Auto) % Neut % (Auto) % Lymph % (Auto) % [place] % (Auto) % Eos % (Auto) % Baso % (Auto) % Neut # (Auto) (1.40-6.50) K/uL Lymph # (Auto) (1.20-3.40) K/uL [place] # (Auto) (0.11-0.59) K/uL Eos # (Auto) (0.00-0.50) K/uL Baso # (Auto) (0.00-0.20) K/uL Immature Gran # (Auto) (0.01-0.20) K/uL Heparin Anti-Xa, Unfract 0.13 L (0.3-0.7) IU/ml Sodium (136-145) mmol/L Potassium (3.5-5.1) mmol/L Chloride (98-107) mmol/L Carbon Dioxide (21-32) mmol/L Anion Gap (3-11) BUN (6-23) mg/dl Creatinine (0.6-1.4) mg/dl Est Cr Clr Drug Dosing ml/min Est GFR ( Amer) ml/min Est GFR (Non-Af Amer) ml/min BUN/Creatinine Ratio Glucose (70-99(Fasting)) mg/dl POC Glucose 156 H (70-99) mg/dl Calcium (8.6-10.3) mg/dl Phosphorus (2.5-4.9) mg/dl Magnesium (1.7-2.4) mg/dl Total Bilirubin (0.2-1.0) mg/dl Direct Bilirubin (0-0.2) mg/dl AST (13-39) U/L ALT (7-52) U/L Alkaline Phosphatase (34-104) U/L Total Protein (6.0-8.3) gm/dl Albumin (3.4-5.0) gm/dl Lipase (11-82) U/L Adenovirus (PCR) Not Detected (NotDetected) B. pertussis DNA (PCR) Not Detected (NotDetected) B.parapertussis DNA PCR Not Detected (NotDetected) C. pneumoniae DNA (PCR) Not Detected (NotDetected) Coronavirus OC43 (PCR) Not Detected (NotDetected) Coronavirus HKU1 (PCR) Not Detected (NotDetected) Coronavirus 229E (PCR) Not Detected (NotDetected) SARS-CoV-2 (PCR) Not Detected (NotDetected) Coronavirus NL63 (PCR) Not Detected (NotDetected) Human Metapneumovir PCR Not Detected (NotDetected) Influenza Type A (PCR) Not Detected (NotDetected) Influenza Type B (PCR) Not Detected (NotDetected) M. pneumoniae (PCR) Not Detected (NotDetected) Parainfluenza 1 (PCR) Not Detected (NotDetected) Parainfluenza 2 (PCR) Not Detected (NotDetected) Parainfluenza 3 (PCR) Not Detected (NotDetected) Parainfluenza 4 (PCR) Not Detected (NotDetected) RSV (PCR) Not Detected (NotDetected) Entero/Rhino (PCR) Not Detected (NotDetected) Blood Type Antibody Screen 04/19/24 04/19/24 Range/Units 10:59 09:31 WBC (4.8-10.8) K/ul RBC (4.70-6.10) M/uL Hgb (14.0-18.0) g/dl Hct (42.0-52.0) % MCV (80.0-100.0) fL MCH (25.0-34.0) pg MCHC (32.0-36.0) g/dL RDW Std Deviation (36.4-46.3) fL RDW Coeff of [place]ou (11.5-14.5) % Plt Count (130-400) K/uL MPV (9.4-12.4) fL Immature Gran % (Auto) % Neut % (Auto) % Lymph % (Auto) % [place] % (Auto) % Eos % (Auto) % Baso % (Auto) % Neut # (Auto) (1.40-6.50) K/uL Lymph # (Auto) (1.20-3.40) K/uL [place] # (Auto) (0.11-0.59) K/uL Eos # (Auto) (0.00-0.50) K/uL Baso # (Auto) (0.00-0.20) K/uL Immature Gran # (Auto) (0.01-0.20) K/uL Heparin Anti-Xa, Unfract (0.3-0.7) IU/ml Sodium 136 (136-145) mmol/L Potassium 2.8 L (3.5-5.1) mmol/L Chloride 99 (98-107) mmol/L Carbon Dioxide 27 (21-32) mmol/L Anion Gap 10 (3-11) BUN 15 (6-23) mg/dl Creatinine < 0.20 L (0.6-1.4) mg/dl Est Cr Clr Drug Dosing 560.5 ml/min Est GFR ( Amer) > 150.0 ml/min Est GFR (Non-Af Amer) > 150.0 ml/min BUN/Creatinine Ratio TNP Glucose 150 H (70-99(Fasting)) mg/dl POC Glucose 189 H (70-99) mg/dl Calcium 7.7 L (8.6-10.3) mg/dl Phosphorus (2.5-4.9) mg/dl Magnesium (1.7-2.4) mg/dl Total Bilirubin (0.2-1.0) mg/dl Direct Bilirubin (0-0.2) mg/dl AST (13-39) U/L ALT (7-52) U/L Alkaline Phosphatase (34-104) U/L Total Protein (6.0-8.3) gm/dl Albumin (3.4-5.0) gm/dl Lipase (11-82) U/L Adenovirus (PCR) (NotDetected) B. pertussis DNA (PCR) (NotDetected) B.parapertussis DNA PCR (NotDetected) C. pneumoniae DNA (PCR) (NotDetected) Coronavirus OC43 (PCR) (NotDetected) Coronavirus HKU1 (PCR) (NotDetected) Coronavirus 229E (PCR) (NotDetected) SARS-CoV-2 (PCR) (NotDetected) Coronavirus NL63 (PCR) (NotDetected) Human Metapneumovir PCR (NotDetected) Influenza Type A (PCR) (NotDetected) Influenza Type B (PCR) (NotDetected) M. pneumoniae (PCR) (NotDetected) Parainfluenza 1 (PCR) (NotDetected) Parainfluenza 2 (PCR) (NotDetected) Parainfluenza 3 (PCR) (NotDetected) Parainfluenza 4 (PCR) (NotDetected) RSV (PCR) (NotDetected) Entero/Rhino (PCR) (NotDetected) Blood Type Antibody Screen (1) Pancreatitis Acute pancreatitis complication: unspecified Chronicity: acute Pancreatitis type: unspecified pancreatitis type Qualified Code(s): K85.90 - Acute pancreatitis without necrosis or infection, unspecified
--- NOTE | 2024-04-20 10:07 | Gastroenterology Progress Note ---
Date of Service April 20, 2024 Assessment & Plan (1) Pancreatitis: Plan: 38 year old male with history of ALS s/p trach, ventilator, G-tube placement, chronic pancreatitis , history of pancreatic pseudocyst and pancreatic necrosis, chronic respiratory failure requiring continuous mechanical ventilation through tracheostomy, allergic rhinitis, impaired mobility and ADLs, history of severe sepsis pneumonia, history of isolated atrial fibrillation, cardiac murmur, dry eye syndrome, history of left ventricular systolic dysfunction admitted to the ICU with sepsis, recurrent pancreatitis. His WBC is downtrending on IV ABX, blood cultures are negative w/ normal LFTs, doubt a biliary source. May continue to treat his pancreatitis conservatively w/ IVF hydration. May continue tube feeds as tolerated. Trend STOCK LAYER and glucose. Defer AC agent to primary service. Please recall GI as needed. Will sign off. I spent a total of 45 minutes on the date of service in review of patient's record, and previously obtained information in person and appropriate medical visit, discussion and education of plan, with patient and/or caregiver, placing orders for tests/referral/procedures as medically necessary and documentation of pertinent clinical information in patient's medical records for their visit today. Admission and Anticipated Discharge Date Admission Date: April 19, 2024 Supervising Physician Co-Signing Physician Notes Patient seen, labs reviewed. No evidence of cholangitis. OK to restart tube feeding. Will follow as needed. Subjective Pt was seen and evaluated, chart reviewed. 38 year old male with history of ALS s/p trach, ventilator, G-tube placement, chronic pancreatitis , history of pancreatic pseudocyst and pancreatic necrosis, chronic respiratory failure requiring continuous mechanical ventilation through tracheostomy, allergic rhinitis, impaired mobility and ADLs, history of severe sepsis pneumonia, history of isolated atrial fibrillation, cardiac murmur, dry eye syndrome, history of left ventricular systolic dysfunction admitted to the ICU with sepsis, recurrent pancreatitis. He was resting this AM. No family at bedside. No apparent distress with abdominal examination. WBC 34 --> 24 --> 14 Tbili 0.6 AST 15 ALT 8 ALKP 101 Lipase 124 Blood cx 03/30/24: no growth Urine cx 03/31/24: ecoli Blood cx 04/18/24: no growth Urine cx 04/18/24: ecoli MRCP 2023: There is inflammatory stranding surrounding the pancreas. No hemorrhage, necrosis or organized peripancreatic fluid collection. This is most consistent with acute edematous pancreatitis. Redemonstrated nonocclusive thrombus of the portal, splenic and superior mesenteric veins. Multiple cystic lesions of the pancreas measure up to 1.5 cm. This is concerning for acute peripancreatic fluid collections. Mildly dilated common bile duct measuring 7 mm without filling defect. There is tapering of the distal common bile duct. This could relate to ascending cholangitis. Review of Systems Review of Systems: Unable to assess Physical Exam Constitutional: Awake, sitting in bed with tablet. Chronically ill appearing but in no acute distress Gastrointestinal (Abdomen): No apparent distress Skin: no rashes, warm and dry Results & Data Results & Data Vital Signs (Past 12 Hours) Vital Signs Temp Pulse Resp BP Pulse Ox FiO2 04/20/24 07:40 101 H 14 98 30 04/20/24 06:18 38.3 C H 91 H 14 98 04/20/24 06:00 88/51 L 04/20/24 05:45 38.3 C H 91 H 14 99 04/20/24 05:06 38.1 C H 93 H 14 98 04/20/24 05:00 85/52 L 04/20/24 04:48 38.0 C H 97 H 14 98 04/20/24 04:33 37.9 C H 95 H 14 98 04/20/24 04:00 90/54 L 04/20/24 04:00 30 04/20/24 03:54 37.8 C H 94 H 14 98 04/20/24 03:09 37.6 C H 91 H 14 98 04/20/24 02:56 94 H 14 100 30 04/20/24 02:00 37.5 C 88 14 99 04/20/24 02:00 92/59 L 04/20/24 01:30 98/63 L 04/20/24 01:30 37.4 C 86 14 100 04/20/24 01:00 93/65 L 04/20/24 00:51 37.4 C 83 14 100 04/20/24 00:30 88/60 L 04/20/24 00:30 37.4 C 89 14 98 04/20/24 00:12 37.4 C 91 H 14 99 04/20/24 00:00 30 04/19/24 23:09 90 14 98 30 04/19/24 23:00 37.5 C 89 14 99 04/19/24 22:30 90/57 L 04/19/24 22:27 37.6 C H 93 H 14 98 04/19/24 22:15 37.6 C H 91 H 14 99 Laboratory Results 04/20/24 04/20/24 04/20/24 Range/Units 09:19 08:18 04:50 WBC 14.43 H D (4.8-10.8) K/ul RBC 3.03 L (4.70-6.10) M/uL Hgb 8.5 L (14.0-18.0) g/dl Hct 26.6 L (42.0-52.0) % MCV 87.8 (80.0-100.0) fL MCH 28.1 (25.0-34.0) pg MCHC 32.0 (32.0-36.0) g/dL RDW Std Deviation 53.0 H (36.4-46.3) fL RDW Coeff of [place] 16.9 H (11.5-14.5) % Plt Count 278 (130-400) K/uL MPV 9.7 (9.4-12.4) fL Immature Gran % (Auto) 0.6 % Neut % (Auto) 77.9 % Lymph % (Auto) 13.9 % [place] % (Auto) 5.4 % Eos % (Auto) 2.1 % Baso % (Auto) 0.1 % Neut # (Auto) 11.23 H (1.40-6.50) K/uL Lymph # (Auto) 2.01 (1.20-3.40) K/uL [place] # (Auto) 0.78 H (0.11-0.59) K/uL Eos # (Auto) 0.30 (0.00-0.50) K/uL Baso # (Auto) 0.02 (0.00-0.20) K/uL Immature Gran # (Auto) 0.09 (0.01-0.20) K/uL Heparin Anti-Xa, Unfract 0.19 L (0.3-0.7) IU/ml Sodium (136-145) mmol/L Potassium (3.5-5.1) mmol/L Chloride (98-107) mmol/L Carbon Dioxide (21-32) mmol/L Anion Gap (3-11) BUN (6-23) mg/dl Creatinine (0.6-1.4) mg/dl Est Cr Clr Drug Dosing ml/min Est GFR ( Amer) ml/min Est GFR (Non-Af Amer) ml/min BUN/Creatinine Ratio Glucose (70-99(Fasting)) mg/dl POC Glucose (70-99) mg/dl Calcium (8.6-10.3) mg/dl Ionized Calcium 1.05 L (1.12-1.32) mmol/L Phosphorus (2.5-4.9) mg/dl Magnesium (1.7-2.4) mg/dl Total Bilirubin (0.2-1.0) mg/dl Direct Bilirubin (0-0.2) mg/dl AST (13-39) U/L ALT (7-52) U/L Alkaline Phosphatase (34-104) U/L Total Protein (6.0-8.3) gm/dl Albumin (3.4-5.0) gm/dl Lipase (11-82) U/L Adenovirus (PCR) (NotDetected) B. pertussis DNA (PCR) (NotDetected) B.parapertussis DNA PCR (NotDetected) C. pneumoniae DNA (PCR) (NotDetected) Coronavirus OC43 (PCR) (NotDetected) Coronavirus HKU1 (PCR) (NotDetected) Coronavirus 229E (PCR) (NotDetected) SARS-CoV-2 (PCR) (NotDetected) Coronavirus NL63 (PCR) (NotDetected) Human Metapneumovir PCR (NotDetected) Influenza Type A (PCR) (NotDetected) Influenza Type B (PCR) (NotDetected) M. pneumoniae (PCR) (NotDetected) Parainfluenza 1 (PCR) (NotDetected) Parainfluenza 2 (PCR) (NotDetected) Parainfluenza 3 (PCR) (NotDetected) Parainfluenza 4 (PCR) (NotDetected) RSV (PCR) (NotDetected) Entero/Rhino (PCR) (NotDetected) Blood Type O Positive Antibody Screen NEGATIVE 04/20/24 04/20/24 04/19/24 Range/Units 04:44 00:24 22:48 WBC (4.8-10.8) K/ul RBC (4.70-6.10) M/uL Hgb (14.0-18.0) g/dl Hct (42.0-52.0) % MCV (80.0-100.0) fL MCH (25.0-34.0) pg MCHC (32.0-36.0) g/dL RDW Std Deviation (36.4-46.3) fL RDW Coeff of [place] (11.5-14.5) % Plt Count (130-400) K/uL MPV (9.4-12.4) fL Immature Gran % (Auto) % Neut % (Auto) % Lymph % (Auto) % [place] % (Auto) % Eos % (Auto) % Baso % (Auto) % Neut # (Auto) (1.40-6.50) K/uL Lymph # (Auto) (1.20-3.40) K/uL [place] # (Auto) (0.11-0.59) K/uL Eos # (Auto) (0.00-0.50) K/uL Baso # (Auto) (0.00-0.20) K/uL Immature Gran # (Auto) (0.01-0.20) K/uL Heparin Anti-Xa, Unfract 0.18 L (0.3-0.7) IU/ml Sodium 138 (136-145) mmol/L Potassium 3.2 L (3.5-5.1) mmol/L Chloride 104 (98-107) mmol/L Carbon Dioxide 25 (21-32) mmol/L Anion Gap 9 (3-11) BUN 8 (6-23) mg/dl Creatinine < 0.20 L (0.6-1.4) mg/dl Est Cr Clr Drug Dosing 560.5 ml/min Est GFR ( Amer) > 150.0 ml/min Est GFR (Non-Af Amer) > 150.0 ml/min BUN/Creatinine Ratio TNP Glucose 93 (70-99(Fasting)) mg/dl POC Glucose 101 H (70-99) mg/dl Calcium 7.6 L (8.6-10.3) mg/dl Ionized Calcium (1.12-1.32) mmol/L Phosphorus 3.1 (2.5-4.9) mg/dl Magnesium 2.0 (1.7-2.4) mg/dl Total Bilirubin 0.6 (0.2-1.0) mg/dl Direct Bilirubin 0.2 (0-0.2) mg/dl AST 15 (13-39) U/L ALT 8 (7-52) U/L Alkaline Phosphatase 101 (34-104) U/L Total Protein 5.9 L (6.0-8.3) gm/dl Albumin 2.3 L (3.4-5.0) gm/dl Lipase 124 H (11-82) U/L Adenovirus (PCR) (NotDetected) B. pertussis DNA (PCR) (NotDetected) B.parapertussis DNA PCR (NotDetected) C. pneumoniae DNA (PCR) (NotDetected) Coronavirus OC43 (PCR) (NotDetected) Coronavirus HKU1 (PCR) (NotDetected) Coronavirus 229E (PCR) (NotDetected) SARS-CoV-2 (PCR) (NotDetected) Coronavirus NL63 (PCR) (NotDetected) Human Metapneumovir PCR (NotDetected) Influenza Type A (PCR) (NotDetected) Influenza Type B (PCR) (NotDetected) M. pneumoniae (PCR) (NotDetected) Parainfluenza 1 (PCR) (NotDetected) Parainfluenza 2 (PCR) (NotDetected) Parainfluenza 3 (PCR) (NotDetected) Parainfluenza 4 (PCR) (NotDetected) RSV (PCR) (NotDetected) Entero/Rhino (PCR) (NotDetected) Blood Type Antibody Screen 04/19/24 04/19/24 04/19/24 Range/Units 18:19 15:40 11:16 WBC (4.8-10.8) K/ul RBC (4.70-6.10) M/uL Hgb (14.0-18.0) g/dl Hct (42.0-52.0) % MCV (80.0-100.0) fL MCH (25.0-34.0) pg MCHC (32.0-36.0) g/dL RDW Std Deviation (36.4-46.3) fL RDW Coeff of [place] (11.5-14.5) % Plt Count (130-400) K/uL MPV (9.4-12.4) fL Immature Gran % (Auto) % Neut % (Auto) % Lymph % (Auto) % [place] % (Auto) % Eos % (Auto) % Baso % (Auto) % Neut # (Auto) (1.40-6.50) K/uL Lymph # (Auto) (1.20-3.40) K/uL [place] # (Auto) (0.11-0.59) K/uL Eos # (Auto) (0.00-0.50) K/uL Baso # (Auto) (0.00-0.20) K/uL Immature Gran # (Auto) (0.01-0.20) K/uL Heparin Anti-Xa, Unfract 0.13 L (0.3-0.7) IU/ml Sodium (136-145) mmol/L Potassium (3.5-5.1) mmol/L Chloride (98-107) mmol/L Carbon Dioxide (21-32) mmol/L Anion Gap (3-11) BUN (6-23) mg/dl Creatinine (0.6-1.4) mg/dl Est Cr Clr Drug Dosing ml/min Est GFR ( Amer) ml/min Est GFR (Non-Af Amer) ml/min BUN/Creatinine Ratio Glucose (70-99(Fasting)) mg/dl POC Glucose 139 H 156 H (70-99) mg/dl Calcium (8.6-10.3) mg/dl Ionized Calcium (1.12-1.32) mmol/L Phosphorus (2.5-4.9) mg/dl Magnesium (1.7-2.4) mg/dl Total Bilirubin (0.2-1.0) mg/dl Direct Bilirubin (0-0.2) mg/dl AST (13-39) U/L ALT (7-52) U/L Alkaline Phosphatase (34-104) U/L Total Protein (6.0-8.3) gm/dl Albumin (3.4-5.0) gm/dl Lipase (11-82) U/L Adenovirus (PCR) (NotDetected) B. pertussis DNA (PCR) (NotDetected) B.parapertussis DNA PCR (NotDetected) C. pneumoniae DNA (PCR) (NotDetected) Coronavirus OC43 (PCR) (NotDetected) Coronavirus HKU1 (PCR) (NotDetected) Coronavirus 229E (PCR) (NotDetected) SARS-CoV-2 (PCR) (NotDetected) Coronavirus NL63 (PCR) (NotDetected) Human Metapneumovir PCR (NotDetected) Influenza Type A (PCR) (NotDetected) Influenza Type B (PCR) (NotDetected) M. pneumoniae (PCR) (NotDetected) Parainfluenza 1 (PCR) (NotDetected) Parainfluenza 2 (PCR) (NotDetected) Parainfluenza 3 (PCR) (NotDetected) Parainfluenza 4 (PCR) (NotDetected) RSV (PCR) (NotDetected) Entero/Rhino (PCR) (NotDetected) Blood Type Antibody Screen 04/19/24 04/19/24 Range/Units 11:15 10:59 WBC (4.8-10.8) K/ul RBC (4.70-6.10) M/uL Hgb (14.0-18.0) g/dl Hct (42.0-52.0) % MCV (80.0-100.0) fL MCH (25.0-34.0) pg MCHC (32.0-36.0) g/dL RDW Std Deviation (36.4-46.3) fL RDW Coeff of [place] (11.5-14.5) % Plt Count (130-400) K/uL MPV (9.4-12.4) fL Immature Gran % (Auto) % Neut % (Auto) % Lymph % (Auto) % [place] % (Auto) % Eos % (Auto) % Baso % (Auto) % Neut # (Auto) (1.40-6.50) K/uL Lymph # (Auto) (1.20-3.40) K/uL [place] # (Auto) (0.11-0.59) K/uL Eos # (Auto) (0.00-0.50) K/uL Baso # (Auto) (0.00-0.20) K/uL Immature Gran # (Auto) (0.01-0.20) K/uL Heparin Anti-Xa, Unfract (0.3-0.7) IU/ml Sodium 136 (136-145) mmol/L Potassium 2.8 L (3.5-5.1) mmol/L Chloride 99 (98-107) mmol/L Carbon Dioxide 27 (21-32) mmol/L Anion Gap 10 (3-11) BUN 15 (6-23) mg/dl Creatinine < 0.20 L (0.6-1.4) mg/dl Est Cr Clr Drug Dosing 560.5 ml/min Est GFR ( Amer) > 150.0 ml/min Est GFR (Non-Af Amer) > 150.0 ml/min BUN/Creatinine Ratio TNP Glucose 150 H (70-99(Fasting)) mg/dl POC Glucose (70-99) mg/dl Calcium 7.7 L (8.6-10.3) mg/dl Ionized Calcium (1.12-1.32) mmol/L Phosphorus (2.5-4.9) mg/dl Magnesium (1.7-2.4) mg/dl Total Bilirubin (0.2-1.0) mg/dl Direct Bilirubin (0-0.2) mg/dl AST (13-39) U/L ALT (7-52) U/L Alkaline Phosphatase (34-104) U/L Total Protein (6.0-8.3) gm/dl Albumin (3.4-5.0) gm/dl Lipase (11-82) U/L Adenovirus (PCR) Not Detected (NotDetected) B. pertussis DNA (PCR) Not Detected (NotDetected) B.parapertussis DNA PCR Not Detected (NotDetected) C. pneumoniae DNA (PCR) Not Detected (NotDetected) Coronavirus OC43 (PCR) Not Detected (NotDetected) Coronavirus HKU1 (PCR) Not Detected (NotDetected) Coronavirus 229E (PCR) Not Detected (NotDetected) SARS-CoV-2 (PCR) Not Detected (NotDetected) Coronavirus NL63 (PCR) Not Detected (NotDetected) Human Metapneumovir PCR Not Detected (NotDetected) Influenza Type A (PCR) Not Detected (NotDetected) Influenza Type B (PCR) Not Detected (NotDetected) M. pneumoniae (PCR) Not Detected (NotDetected) Parainfluenza 1 (PCR) Not Detected (NotDetected) Parainfluenza 2 (PCR) Not Detected (NotDetected) Parainfluenza 3 (PCR) Not Detected (NotDetected) Parainfluenza 4 (PCR) Not Detected (NotDetected) RSV (PCR) Not Detected (NotDetected) Entero/Rhino (PCR) Not Detected (NotDetected) Blood Type Antibody Screen PG Care Time/CCT Total # of Minutes Spent Total Time Spent with Patient: Total time spent is greater than 50% in coordination of care (as documented) at patient's floor/unit and/or counseling patient: Coding Level of Care Code 52371 SUB INP/OBS CARE MIN Diagnoses Pancreatitis K85.90 Acute pancreatitis complication: unspecified Chronicity: acute Pancreatitis type: unspecified pancreatitis type (1) Pancreatitis Acute pancreatitis complication: unspecified Chronicity: acute Pancreatitis type: unspecified pancreatitis type Qualified Code(s): K85.90 - Acute pancreatitis without necrosis or infection, unspecified
--- NOTE | 2024-04-20 14:56 | Palliative Care Consultation ---
Date of Consultation April 20, 2024 Assessment & Plan (1) Generalized pain: He describes his pain as burning in nature. We discussed the option of adding gabapentin which may help with this more neuropathic element of his pain. However, he declined my offer of gabapentin and type that for now he would prefer to use morphine only. We then discussed the potential value of using a longer acting medication such as the transdermal fentanyl patch because his pain is constant but he reports that for now he would rather only use that as needed dosing of morphine IV and we could revisit longer-term options as well as alternatives once he is over this acute event. He feels that some of this pain primarily began during this admission and he does not want to have to add new long-acting or long-term medications to his regimen unless absolutely needed. He has MS 2mg IV q3h prn for pain, feels it is not lasting long enough/sometimes does not provide enough relief Intolerant of Dilaudid Will add MS 3mg IV mod to severe pain q3h prn/Hold for somnolence or RR less than 14; please document RR with each dose administration. Will add Ativan 1mg IV q6h prn myoclonus, spasms, anxiety (2) Muscle spasticity: (3) Weakness generalized: (4) Dyspnea and respiratory abnormalities: (5) Advanced care planning/counseling discussion: Face to face with patient x 45min He would like present focus to be on infection treatment and pain relief He is unsure if he wants a long acting med at this time He wants current level of care and no changes Unclear about the [facility] - no clear notes, would suggest obtaining [facility] & [facility] records for more clarity (6) Palliative care by specialist: Met with pt/family. Provided overview of Palliative Medicine, a subspecialty that provides specialized medical care for people living with a serious illness by offering a focus on quality of life through reduction of symptom burden/more control over their illness, for both the patient and family. We care for patients of any age/advancing stage of a serious illness and can be provided along with curative treatment. We are not hospice, which is a visiting nurse service that focuses on care delivered at the very end of life. Plan as above Thank you for allowing us to participate in the ongoing care of this patient. Please page with any additional concerns. 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 She returned to sleep mid way through my visit. patient communicates through his computer assisted device he reports severe BLE pain. feels IV MS helps but wears off too soon he states pain is usually burning, sometimes aching PMH: ALS s/p trach, ventilator, G-tube placement, chronic pancreatitis , history of pancreatic pseudocyst and pancreatic necrosis, chronic respiratory fa ilure requiring continuous mechanical ventilation through tracheostomy, allergic rhinitis, impaired mobility and ADLs, history of severe sepsis pneumonia, history of isolated atrial fibrillation, cardiac murmur, dry eye syndrome, history of left ventricular systolic dysfunction admitted to the ICU with sepsis, recurrent pancreatitis. Allergies Allergy/AdvReac Type Severity Reaction Status Date / Time hydromorphone [From Dilaudid] AdvReac makes pt Verified 03/31/24 00:58 retain urine Home Medications Medication Instructions Recorded Confirmed Type acetaminophen 160 mg/5 mL oral 640 mg feeding tube Q6 PRN Pain, 05/07/22 04/19/24 History liquid (Children's Acetaminophen) Mild atropine 1 % eye drops 1 drp sublingual QID PRN increased 05/07/22 04/19/24 History secretions nystatin 100,000 unit/gram topical 1 applic topical BID 05/07/22 04/19/24 History powder zinc oxide 20 % topical ointment 1 applic topical TID PRN SORES 05/07/22 04/19/24 History A,D-aloe hzth-bqrvmwdmqh-d.pet 1 ea topical BID PRN scrotal area 06/10/22 04/19/24 History topical ointment carboxymethylcellulose sodium 0.5 1 drp OPB UD PRN Dry Eye(S) 06/10/22 04/19/24 History % eye drops dextran 70-hypromellose (PF) 0.1 1 drp OPB QID PRN Dry Eyes 06/10/22 04/19/24 History %-0.3 % eye drops in a dropperette (Artificial Tears (PF)) famotidine 40 mg/5 mL (8 mg/mL) 20 mg feeding tube BID 06/10/22 04/19/24 History oral suspension midodrine 5 mg tablet 5 mg feeding tube TID 06/10/22 04/19/24 History polyethylene glycol 3350 17 17 g feeding tube DAILY PRN 06/10/22 04/19/24 History gram/dose oral powder (Miralax) Constipation morphine 10 mg/5 mL oral solution 5 mg feeding tube Q2H PRN Pain 10/30/22 04/19/24 History [place] 1.4 Liquid Vanilla 1 ea G-tube 5XD 04/23/23 04/19/24 History Lactobacillus acidophilus 2 cap feeding tube DAILY 04/23/23 04/19/24 History (Acidophilus capsule) hydrocortisone 2.5 % topical 1 applic topical BID PRN Itching 04/23/23 04/19/24 History ointment white petrolatum 57 % topical 1 ea topical BID PRN protectant 04/23/23 04/19/24 History paste (Remedy Phytoplex Z-Guard) ciclopirox 0.77 % topical cream 1 applic topical 3XWK 03/31/24 04/19/24 History (Ciclodan) coenzyme Q10 100 mg/5 mL oral syrup 10 mg feeding tube DAILY 03/31/24 04/19/24 History ibuprofen 100 mg/5 mL oral 200 mg feeding tube TID PRN Fever 03/31/24 04/19/24 History suspension Or Pain senna leaf extract 176 mg/5 mL 15 ml feeding tube 3XWK 03/31/24 04/19/24 History oral syrup (senna) Patient History Medical History Pressure ulcer CLOSED ON BUTTOCK Tracheostomy in place 12/2021 ORIGINALLY PLACED (LAST CHANGED 10/2022) Hypotension NO CARDS Hx of pancreatitis Pseudocyst of pancreas Left ventricular systolic dysfunction Uses feeding tube G-J TUBE USED FOR MEDS AND FEEDINGS Slow gastric motility D/T ALS Dry eye syndrome Cardiac murmur AN INFANT Sleep apnea TRILEGY MACHINE WITH 2.5L (WEARS CONT) ALS (amyotrophic lateral sclerosis) DX FEBRUARY 2014>CAN NOT MOVE Surgical History History of esophagogastroduodenoscopy (EGD) Hx of LASIK PRK S/P percutaneous endoscopic gastrostomy (PEG) tube placement History of tooth extraction History of herniorrhaphy Family History Mother Family history of diabetes mellitus Other No family history of adverse response to anesthesia Social History Smoking Status: Never smoker Second Hand Exposure: No; Do You Dip or Chew Tobacco: No; Hx Alcohol Use: No Hx Substance Use: No Preferred Language: Vincentian Communication Ability: Effective Communication Ability Comment: pt can not talk--uses electronic table to communicate; signs consents Pantry Worker Required: No Beliefs That Will Affect Care: None marital status: Current Living Situation: Spouse Current Living Situation Comment: has 2 personal aides to help in home How many Children do You have: 3 Other Information That Helps Us Care for You: No Feels Safe at Home: Yes Safety Concerns: Feels Safe At This Time Assistive Devices: Hospital Bed, Mechanical Lift and Oxygen - Continuous Assistive Devices Comment: trach/vent/peg tube Review of Systems Review of Systems: All systems reviewed & are unremarkable except as noted in Subjective Physical Exam Constitutional: + ill appearing, + thin, + cachectic, + frail appearing, + diaphoretic and + mechanically ventilated Eyes: + eyelid abnormality and PERRL; no EOM m ovement deficit ENMT: +trach to vent Neck: + tracheostomy present Respiratory: symmetric chest movement Auscultation: + diminished lung sounds Cardiovascular: Rate/Rhythm: regular rate and regular rhythm Gastrointestinal (Abdomen): +PEG, soft distension Musculoskeletal: +muscle atrophy +widespread symmetric weakness spasticity BLE, mild clonus non ambulatory/bedbound generalized weakness cognition intact/communicates via eye tracking computer for speech generation Skin: pallor, diaphoresis Neurologic: profound neuro muscular weakness Psychiatric: subdued Results & Data Vital Signs (Past 12 Hours) Vital Signs Temp Pulse Resp BP Pulse Ox O2 Del Method FiO2 04/20/24 12:00 30 04/20/24 11:00 87/59 L 04/20/24 11:00 38.0 C H 83 14 99 04/20/24 11:00 85 15 98 30 04/20/24 10:00 88/56 L 04/20/24 10:00 38.1 C H 93 H 14 98 04/20/24 09:24 38.1 C H 99 H 14 95/57 L 98 04/20/24 09:00 Mechanical Vent 30 04/20/24 08:00 102 H 04/20/24 08:00 38.2 C H 100 H 14 99 04/20/24 08:00 30 04/20/24 07:40 101 H 14 98 30 04/20/24 07:00 91/56 L 04/20/24 07:00 38.4 C H 92 H 14 98 04/20/24 06:18 38.3 C H 91 H 14 98 04/20/24 06:00 88/51 L 04/20/24 05:45 38.3 C H 91 H 14 99 04/20/24 05:06 38.1 C H 93 H 14 98 04/20/24 05:00 85/52 L 04/20/24 04:48 38.0 C H 97 H 14 98 04/20/24 04:33 37.9 C H 95 H 14 98 04/20/24 04:00 90/54 L 04/20/24 04:00 30 04/20/24 03:54 37.8 C H 94 H 14 98 04/20/24 03:09 37.6 C H 91 H 14 98 04/20/24 02:56 94 H 14 100 30 Laboratory Results 04/20/24 04/20/24 04/20/24 Range/Units 11:55 09:19 08:18 WBC (4.8-10.8) K/ul RBC (4.70-6.10) M/uL Hgb (14.0-18.0) g/dl POC Hgb (14.0-18.0) g/dl Hct (42.0-52.0) % POC Hct (42-52) % MCV (80.0-100.0) fL MCH (25.0-34.0) pg MCHC (32.0-36.0) g/dL RDW Std Deviation (36.4-46.3) fL RDW Coeff of Aissatou (11.5-14.5) % Plt Count (130-400) K/uL MPV (9.4-12.4) fL Immature Gran % (Auto) % Neut % (Auto) % Lymph % (Auto) % Rice % (Auto) % Eos % (Auto) % Baso % (Auto) % Neut # (Auto) (1.40-6.50) K/uL Lymph # (Auto) (1.20-3.40) K/uL Rice # (Auto) (0.11-0.59) K/uL Eos # (Auto) (0.00-0.50) K/uL Baso # (Auto) (0.00-0.20) K/uL Immature Gran # (Auto) (0.01-0.20) K/uL Hypersegmented Neuts Polychromasia Rouleaux PT (9.0-12.0) Seconds INR (0.9-1.1) APTT (21-31) Seconds PTT Ratio Heparin Anti-Xa, Unfract 0.19 L (0.3-0.7) IU/ml POC pH (7.35-7.45) POC pCO2 (35-46) mmHg POC pO2 (80-95) mmHg POC HCO3 (19-24) allison/L POC Total CO2 (24-31) mmol/L POC Base Excess (-9-1.8) allison/L POC ABG O2 Sat (90-95) % VBG pH (7.36-7.41) VBG pCO2 (38-50) mmHg VBG pO2 mmHg VBG HCO3 mmol/L VBG O2 Saturation % VBG Base Excess mEq/L POC Sodium (135-144) mmol/L Sodium (136-145) mmol/L POC Potassium (3.3-5.0) mmol/L Potassium (3.5-5.1) mmol/L Chloride (98-107) mmol/L Carbon Dioxide (21-32) mmol/L Anion Gap (3-11) BUN (6-23) mg/dl Creatinine (0.6-1.4) mg/dl Est Cr Clr Drug Dosing ml/min Est GFR ( Amer) ml/min Est GFR (Non-Af Amer) ml/min BUN/Creatinine Ratio Glucose (70-99(Fasting)) mg/dl POC Glucose 119 H (70-99) mg/dl Lactate (0.4-2.0) mmol/L Calcium (8.6-10.3) mg/dl Ionized Calcium 1.05 L (1.12-1.32) mmol/L Phosphorus (2.5-4.9) mg/dl Magnesium (1.7-2.4) mg/dl Total Bilirubin (0.2-1.0) mg/dl Direct Bilirubin (0-0.2) mg/dl AST (13-39) U/L ALT (7-52) U/L Alkaline Phosphatase (34-104) U/L Troponin I High Sens (0-20) pg/ml Total Protein (6.0-8.3) gm/dl Albumin (3.4-5.0) gm/dl Globulin (2.5-4.0) gm/dl Albumin/Globulin Ratio (0.9-2) Lipase (11-82) U/L Procalcitonin (0-0.5) ng/ml TSH Random Cortisol mcg/dl Urine Color Urine Appearance (Clear) Urine pH (4.5-7.5) Ur Specific Lentner (1.000-1.030) Urine Protein (Negative) Urine Glucose (UA) (Negative) Urine Ketones (Negative) Urine Blood (Negative) Urine Nitrite (Negative) Urine Bilirubin (Negative) Urine Urobilinogen (Negative) Ur Leukocyte Esterase (Negative) Urine WBC (Auto) (0-5) /hpf Urine RBC (Auto) (0-2) /hpf U Hyaline Cast (Auto) (0-2) /lpf U Epithel Cells (Auto) (0-2) /hpf Urine Bacteria (Auto) (None Seen) Nasal Screen MRSA (PCR) (Negative) Adenovirus (PCR) (NotDetected) B. pertussis DNA (PCR) (NotDetected) B.parapertussis DNA PCR (NotDetected) C. pneumoniae DNA (PCR) (NotDetected) Coronavirus OC43 (PCR) (NotDetected) Coronavirus HKU1 (PCR) (NotDetected) Coronavirus 229E (PCR) (NotDetected) SARS-CoV-2 (PCR) (NotDetected) Coronavirus NL63 (PCR) (NotDetected) Human Metapneumovir PCR (NotDetected) Influenza Type A (PCR) (NotDetected) Influenza Type B (PCR) (NotDetected) M. pneumoniae (PCR) (NotDetected) Parainfluenza 1 (PCR) (NotDetected) Parainfluenza 2 (PCR) (NotDetected) Parainfluenza 3 (PCR) (NotDetected) Parainfluenza 4 (PCR) (NotDetected) RSV (PCR) (NotDetected) Entero/Rhino (PCR) (NotDetected) TB Test (QFT) Gold Plus TB Test (QFT) Nil TB Test Mitogen - Nil TB Test Ag - Nil 1 TB Test Ag - Nil 2 Blood Type Antibody Screen 04/20/24 04/20/24 04/20/24 Range/Units 04:50 04:44 00:24 WBC 14.43 H D (4.8-10.8) K/ul RBC 3.03 L (4.70-6.10) M/uL Hgb 8.5 L (14.0-18.0) g/dl POC Hgb (14.0-18.0) g/dl Hct 26.6 L (42.0-52.0) % POC Hct (42-52) % MCV 87.8 (80.0-100.0) fL MCH 28.1 (25.0-34.0) pg MCHC 32.0 (32.0-36.0) g/dL RDW Std Deviation 53.0 H (36.4-46.3) fL RDW Coeff of Aissatou 16.9 H (11.5-14.5) % Plt Count 278 (130-400) K/uL MPV 9.7 (9.4-12.4) fL Immature Gran % (Auto) 0.6 % Neut % (Auto) 77.9 % Lymph % (Auto) 13.9 % Rice % (Auto) 5.4 % Eos % (Auto) 2.1 % Baso % (Auto) 0.1 % Neut # (Auto) 11.23 H (1.40-6.50) K/uL Lymph # (Auto) 2.01 (1.20-3.40) K/uL Rice # (Auto) 0.78 H (0.11-0.59) K/uL Eos # (Auto) 0.30 (0.00-0.50) K/uL Baso # (Auto) 0.02 (0.00-0.20) K/uL Immature Gran # (Auto) 0.09 (0.01-0.20) K/uL Hypersegmented Neuts Polychromasia Rouleaux PT (9.0-12.0) Seconds INR (0.9-1.1) APTT (21-31) Seconds PTT Ratio Heparin Anti-Xa, Unfract (0.3-0.7) IU/ml POC pH (7.35-7.45) POC pCO2 (35-46) mmHg POC pO2 (80-95) mmHg POC HCO3 (19-24) allison/L POC Total CO2 (24-31) mmol/L POC Base Excess (-9-1.8) allison/L POC ABG O2 Sat (90-95) % VBG pH (7.36-7.41) VBG pCO2 (38-50) mmHg VBG pO2 mmHg VBG HCO3 mmol/L VBG O2 Saturation % VBG Base Excess mEq/L POC Sodium (135-144) mmol/L Sodium 138 (136-145) mmol/L POC Potassium (3.3-5.0) mmol/L Potassium 3.2 L (3.5-5.1) mmol/L Chloride 104 (98-107) mmol/L Carbon Dioxide 25 (21-32) mmol/L Anion Gap 9 (3-11) BUN 8 (6-23) mg/dl Creatinine < 0.20 L (0.6-1.4) mg/dl Est Cr Clr Drug Dosing 560.5 ml/min Est GFR ( Amer) > 150.0 ml/min Est GFR (Non-Af Amer) > 150.0 ml/min BUN/Creatinine Ratio TNP Glucose 93 (70-99(Fasting)) mg/dl POC Glucose 101 H (70-99) mg/dl Lactate (0.4-2.0) mmol/L Calcium 7.6 L (8.6-10.3) mg/dl Ionized Calcium (1.12-1.32) mmol/L Phosphorus 3.1 (2.5-4.9) mg/dl Magnesium 2.0 (1.7-2.4) mg/dl Total Bilirubin 0.6 (0.2-1.0) mg/dl Direct Bilirubin 0.2 (0-0.2) mg/dl AST 15 (13-39) U/L ALT 8 (7-52) U/L Alkaline Phosphatase 101 (34-104) U/L Troponin I High Sens (0-20) pg/ml Total Protein 5.9 L (6.0-8.3) gm/dl Albumin 2.3 L (3.4-5.0) gm/dl Globulin (2.5-4.0) gm/dl Albumin/Globulin Ratio (0.9-2) Lipase 124 H (11-82) U/L Procalcitonin (0-0.5) ng/ml TSH Random Cortisol mcg/dl Urine Color Urine Appearance (Clear) Urine pH (4.5-7.5) Ur Specific L[place]ner (1.000-1.030) Urine Protein (Negative) Urine Glucose (UA) (Negative) Urine Ketones (Negative) Urine Blood (Negative) Urine Nitrite (Negative) Urine Bilirubin (Negative) Urine Urobilinogen (Negative) Ur Leukocyte Esterase (Negative) Urine WBC (Auto) (0-5) /hpf Urine RBC (Auto) (0-2) /hpf U Hyaline Cast (Auto) (0-2) /lpf U Epithel Cells (Auto) (0-2) /hpf Urine Bacteria (Auto) (None Seen) Nasal Screen MRSA (PCR) (Negative) Adenovirus (PCR) (NotDetected) B. pertussis DNA (PCR) (NotDetected) B.parapertussis DNA PCR (NotDetected) C. pneumoniae DNA (PCR) (NotDetected) Coronavirus OC43 (PCR) (NotDetected) Coronavirus HKU1 (PCR) (NotDetected) Coronavirus 229E (PCR) (NotDetected) SARS-CoV-2 (PCR) (NotDetected) Coronavirus NL63 (PCR) (NotDetected) Human Metapneumovir PCR (NotDetected) Influenza Type A (PCR) (NotDetected) Influenza Type B (PCR) (NotDetected) M. pneumoniae (PCR) (NotDetected) Parainfluenza 1 (PCR) (NotDetected) Parainfluenza 2 (PCR) (NotDetected) Parainfluenza 3 (PCR) (NotDetected) Parainfluenza 4 (PCR) (NotDetected) RSV (PCR) (NotDetected) Entero/Rhino (PCR) (NotDetected) TB Test (QFT) Gold Plus TB Test (QFT) Nil TB Test Mitogen - Nil TB Test Ag - Nil 1 TB Test Ag - Nil 2 Blood Type O Positive Antibody Screen NEGATIVE 04/19/24 04/19/24 04/19/24 Range/Units 22:48 18:19 15:40 WBC (4.8-10.8) K/ul RBC (4.70-6.10) M/uL Hgb (14.0-18.0) g/dl POC Hgb (14.0-18.0) g/dl Hct (42.0-52.0) % POC Hct (42-52) % MCV (80.0-100.0) fL MCH (25.0-34.0) pg MCHC (32.0-36.0) g/dL RDW Std Deviation (36.4-46.3) fL RDW Coeff of Aissatou (11.5-14.5) % Plt Count (130-400) K/uL MPV (9.4-12.4) fL Immature Gran % (Auto) % Neut % (Auto) % Lymph % (Auto) % Rice % (Auto) % Eos % (Auto) % Baso % (Auto) % Neut # (Auto) (1.40-6.50) K/uL Lymph # (Auto) (1.20-3.40) K/uL Rice # (Auto) (0.11-0.59) K/uL Eos # (Auto) (0.00-0.50) K/uL Baso # (Auto) (0.00-0.20) K/uL Immature Gran # (Auto) (0.01-0.20) K/uL Hypersegmented Neuts Polychromasia Rouleaux PT (9.0-12.0) Seconds INR (0.9-1.1) APTT (21-31) Seconds PTT Ratio Heparin Anti-Xa, Unfract 0.18 L 0.13 L (0.3-0.7) IU/ml POC pH (7.35-7.45) POC pCO2 (35-46) mmHg POC pO2 (80-95) mmHg POC HCO3 (19-24) allison/L POC Total CO2 (24-31) mmol/L POC Base Excess (-9-1.8) allison/L POC ABG O2 Sat (90-95) % VBG pH (7.36-7.41) VBG pCO2 (38-50) mmHg VBG pO2 mmHg VBG HCO3 mmol/L VBG O2 Saturation % VBG Base Excess mEq/L POC Sodium (135-144) mmol/L Sodium (136-145) mmol/L POC Potassium (3.3-5.0) mmol/L Potassium (3.5-5.1) mmol/L Chloride (98-107) mmol/L Carbon Dioxide (21-32) mmol/L Anion Gap (3-11) BUN (6-23) mg/dl Creatinine (0.6-1.4) mg/dl Est Cr Clr Drug Dosing ml/min Est GFR ( Amer) ml/min Est GFR (Non-Af Amer) ml/min BUN/Creatinine Ratio Glucose (70-99(Fasting)) mg/dl POC Glucose 139 H (70-99) mg/dl Lactate (0.4-2.0) mmol/L Calcium (8.6-10.3) mg/dl Ionized Calcium (1.12-1.32) mmol/L Phosphorus (2.5-4.9) mg/dl Magnesium (1.7-2.4) mg/dl Total Bilirubin (0.2-1.0) mg/dl Direct Bilirubin (0-0.2) mg/dl AST (13-39) U/L ALT (7-52) U/L Alkaline Phosphatase (34-104) U/L Troponin I High Sens (0-20) pg/ml Total Protein (6.0-8.3) gm/dl Albumin (3.4-5.0) gm/dl Globulin (2.5-4.0) gm/dl Albumin/Globulin Ratio (0.9-2) Lipase (11-82) U/L Procalcitonin (0-0.5) ng/ml TSH Random Cortisol mcg/dl Urine Color Urine Appearance (Clear) Urine pH (4.5-7.5) Ur Specific Lentner (1.000-1.030) Urine Protein (Negative) Urine Glucose (UA) (Negative) Urine Ketones (Negative) Urine Blood (Negative) Urine Nitrite (Negative) Urine Bilirubin (Negative) Urine Urobilinogen (Negative) Ur Leukocyte Esterase (Negative) Urine WBC (Auto) (0-5) /hpf Urine RBC (Auto) (0-2) /hpf U Hyaline Cast (Auto) (0-2) /lpf U Epithel Cells (Auto) (0-2) /hpf Urine Bacteria (Auto) (None Seen) Nasal Screen MRSA (PCR) (Negative) Adenovirus (PCR) (NotDetected) B. pertussis DNA (PCR) (NotDetected) B.parapertussis DNA PCR (NotDetected) C. pneumoniae DNA (PCR) (NotDetected) Coronavirus OC43 (PCR) (NotDetected) Coronavirus HKU1 (PCR) (NotDetected) Coronavirus 229E (PCR) (NotDetected) SARS-CoV-2 (PCR) (NotDetected) Coronavirus NL63 (PCR) (NotDetected) Human Metapneumovir PCR (NotDetected) Influenza Type A (PCR) (NotDetected) Influenza Type B (PCR) (NotDetected) M. pneumoniae (PCR) (NotDetected) Parainfluenza 1 (PCR) (NotDetected) Parainfluenza 2 (PCR) (NotDetected) Parainfluenza 3 (PCR) (NotDetected) Parainfluenza 4 (PCR) (NotDetected) RSV (PCR) (NotDetected) Entero/Rhino (PCR) (NotDetected) TB Test (QFT) Gold Plus TB Test (QFT) Nil TB Test Mitogen - Nil TB Test Ag - Nil 1 TB Test Ag - Nil 2 Blood Type Antibody Screen 04/19/24 04/19/24 04/19/24 Range/Units 11:16 11:15 10:59 WBC (4.8-10.8) K/ul RBC (4.70-6.10) M/uL Hgb (14.0-18.0) g/dl POC Hgb (14.0-18.0) g/dl Hct (42.0-52.0) % POC Hct (42-52) % MCV (80.0-100.0) fL MCH (25.0-34.0) pg MCHC (32.0-36.0) g/dL RDW Std Deviation (36.4-46.3) fL RDW Coeff of Aissatou (11.5-14.5) % Plt Count (130-400) K/uL MPV (9.4-12.4) fL Immature Gran % (Auto) % Neut % (Auto) % Lymph % (Auto) % Rice % (Auto) % Eos % (Auto) % Baso % (Auto) % Neut # (Auto) (1.40-6.50) K/uL Lymph # (Auto) (1.20-3.40) K/uL Rice # (Auto) (0.11-0.59) K/uL Eos # (Auto) (0.00-0.50) K/uL Baso # (Auto) (0.00-0.20) K/uL Immature Gran # (Auto) (0.01-0.20) K/uL Hypersegmented Neuts Polychromasia Rouleaux PT (9.0-12.0) Seconds INR (0.9-1.1) APTT (21-31) Seconds PTT Ratio Heparin Anti-Xa, Unfract (0.3-0.7) IU/ml POC pH (7.35-7.45) POC pCO2 (35-46) mmHg POC pO2 (80-95) mmHg POC HCO3 (19-24) allison/L POC Total CO2 (24-31) mmol/L POC Base Excess (-9-1.8) allison/L POC ABG O2 Sat (90-95) % VBG pH (7.36-7.41) VBG pCO2 (38-50) mmHg VBG pO2 mmHg VBG HCO3 mmol/L VBG O2 Saturation % VBG Base Excess mEq/L POC Sodium (135-144) mmol/L Sodium 136 (136-145) mmol/L POC Potassium (3.3-5.0) mmol/L Potassium 2.8 L (3.5-5.1) mmol/L Chloride 99 (98-107) mmol/L Carbon Dioxide 27 (21-32) mmol/L Anion Gap 10 (3-11) BUN 15 (6-23) mg/dl Creatinine < 0.20 L (0.6-1.4) mg/dl Est Cr Clr Drug Dosing 560.5 ml/min Est GFR ( Amer) > 150.0 ml/min Est GFR (Non-Af Amer) > 150.0 ml/min BUN/Creatinine Ratio TNP Glucose 150 H (70-99(Fasting)) mg/dl POC Glucose 156 H (70-99) mg/dl Lactate (0.4-2.0) mmol/L Calcium 7.7 L (8.6-10.3) mg/dl Ionized Calcium (1.12-1.32) mmol/L Phosphorus (2.5-4.9) mg/dl Magnesium (1.7-2.4) mg/dl Total Bilirubin (0.2-1.0) mg/dl Direct Bilirubin (0-0.2) mg/dl AST (13-39) U/L ALT (7-52) U/L Alkaline Phosphatase (34-104) U/L Troponin I High Sens (0-20) pg/ml Total Protein (6.0-8.3) gm/dl Albumin (3.4-5.0) gm/dl Globulin (2.5-4.0) gm/dl Albumin/Globulin Ratio (0.9-2) Lipase (11-82) U/L Procalcitonin (0-0.5) ng/ml TSH Random Cortisol mcg/dl Urine Color Urine Appearance (Clear) Urine pH (4.5-7.5) Ur Specific Lentner (1.000-1.030) Urine Protein (Negative) Urine Glucose (UA) (Negative) Urine Ketones (Negative) Urine Blood (Negative) Urine Nitrite (Negative) Urine Bilirubin (Negative) Urine Urobilinogen (Negative) Ur Leukocyte Esterase (Negative) Urine WBC (Auto) (0-5) /hpf Urine RBC (Auto) (0-2) /hpf U Hyaline Cast (Auto) (0-2) /lpf U Epithel Cells (Auto) (0-2) /hpf Urine Bacteria (Auto) (None Seen) Nasal Screen MRSA (PCR) (Negative) Adenovirus (PCR) Not Detected (NotDetected) B. pertussis DNA (PCR) Not Detected (NotDetected) B.parapertussis DNA PCR Not Detected (NotDetected) C. pneumoniae DNA (PCR) Not Detected (NotDetected) Coronavirus OC43 (PCR) Not Detected (NotDetected) Coronavirus HKU1 (PCR) Not Detected (NotDetected) Coronavirus 229E (PCR) Not Detected (NotDetected) SARS-CoV-2 (PCR) Not Detected (NotDetected) Coronavirus NL63 (PCR) Not Detected (NotDetected) Human Metapneumovir PCR Not Detected (NotDetected) Influenza Type A (PCR) Not Detected (NotDetected) Influenza Type B (PCR) Not Detected (NotDetected) M. pneumoniae (PCR) Not Detected (NotDetected) Parainfluenza 1 (PCR) Not Detected (NotDetected) Parainfluenza 2 (PCR) Not Detected (NotDetected) Parainfluenza 3 (PCR) Not Detected (NotDetected) Parainfluenza 4 (PCR) Not Detected (NotDetected) RSV (PCR) Not Detected (NotDetected) Entero/Rhino (PCR) Not Detected (NotDetected) TB Test (QFT) Gold Plus TB Test (QFT) Nil TB Test Mitogen - Nil TB Test Ag - Nil 1 TB Test Ag - Nil 2 Blood Type Antibody Screen 04/19/24 04/19/24 04/19/24 Range/Units 09:31 07:32 07:19 WBC (4.8-10.8) K/ul RBC (4.70-6.10) M/uL Hgb (14.0-18.0) g/dl POC Hgb (14.0-18.0) g/dl Hct (42.0-52.0) % POC Hct (42-52) % MCV (80.0-100.0) fL MCH (25.0-34.0) pg MCHC (32.0-36.0) g/dL RDW Std Deviation (36.4-46.3) fL RDW Coeff of Aissatou (11.5-14.5) % Plt Count (130-400) K/uL MPV (9.4-12.4) fL Immature Gran % (Auto) % Neut % (Auto) % Lymph % (Auto) % Rice % (Auto) % Eos % (Auto) % Baso % (Auto) % Neut # (Auto) (1.40-6.50) K/uL Lymph # (Auto) (1.20-3.40) K/uL Rice # (Auto) (0.11-0.59) K/uL Eos # (Auto) (0.00-0.50) K/uL Baso # (Auto) (0.00-0.20) K/uL Immature Gran # (Auto) (0.01-0.20) K/uL Hypersegmented Neuts Polychromasia Rouleaux PT (9.0-12.0) Seconds INR (0.9-1.1) APTT (21-31) Seconds PTT Ratio Heparin Anti-Xa, Unfract < 0.10 L (0.3-0.7) IU/ml POC pH (7.35-7.45) POC pCO2 (35-46) mmHg POC pO2 (80-95) mmHg POC HCO3 (19-24) allison/L POC Total CO2 (24-31) mmol/L POC Base Excess (-9-1.8) allison/L POC ABG O2 Sat (90-95) % VBG pH 7.49 H (7.36-7.41) VBG pCO2 34 L (38-50) mmHg VBG pO2 56 mmHg VBG HCO3 26 mmol/L VBG O2 Saturation 89.2 % VBG Base Excess 2.9 mEq/L POC Sodium (135-144) mmol/L Sodium (136-145) mmol/L POC Potassium (3.3-5.0) mmol/L Potassium (3.5-5.1) mmol/L Chloride (98-107) mmol/L Carbon Dioxide (21-32) mmol/L Anion Gap (3-11) BUN (6-23) mg/dl Creatinine (0.6-1.4) mg/dl Est Cr Clr Drug Dosing ml/min Est GFR ( Amer) ml/min Est GFR (Non-Af Amer) ml/min BUN/Creatinine Ratio Glucose (70-99(Fasting)) mg/dl POC Glucose 189 H (70-99) mg/dl Lactate 1.0 (0.4-2.0) mmol/L Calcium (8.6-10.3) mg/dl Ionized Calcium (1.12-1.32) mmol/L Phosphorus (2.5-4.9) mg/dl Magnesium (1.7-2.4) mg/dl Total Bilirubin (0.2-1.0) mg/dl Direct Bilirubin (0-0.2) mg/dl AST (13-39) U/L ALT (7-52) U/L Alkaline Phosphatase (34-104) U/L Troponin I High Sens (0-20) pg/ml Total Protein (6.0-8.3) gm/dl Albumin (3.4-5.0) gm/dl Globulin (2.5-4.0) gm/dl Albumin/Globulin Ratio (0.9-2) Lipase (11-82) U/L Procalcitonin (0-0.5) ng/ml TSH Random Cortisol 21.47 mcg/dl Urine Color Urine Appearance (Clear) Urine pH (4.5-7.5) Ur Specific Lentner (1.000-1.030) Urine Protein (Negative) Urine Glucose (UA) (Negative) Urine Ketones (Negative) Urine Blood (Negative) Urine Nitrite (Negative) Urine Bilirubin (Negative) Urine Urobilinogen (Negative) Ur Leukocyte Esterase (Negative) Urine WBC (Auto) (0-5) /hpf Urine RBC (Auto) (0-2) /hpf U Hyaline Cast (Auto) (0-2) /lpf U Epithel Cells (Auto) (0-2) /hpf Urine Bacteria (Auto) (None Seen) Nasal Screen MRSA (PCR) (Negative) Adenovirus (PCR) (NotDetected) B. pertussis DNA (PCR) (NotDetected) B.parapertussis DNA PCR (NotDetected) C. pneumoniae DNA (PCR) (NotDetected) Coronavirus OC43 (PCR) (NotDetected) Coronavirus HKU1 (PCR) (NotDetected) Coronavirus 229E (PCR) (NotDetected) SARS-CoV-2 (PCR) (NotDetected) Coronavirus NL63 (PCR) (NotDetected) Human Metapneumovir PCR (NotDetected) Influenza Type A (PCR) (NotDetected) Influenza Type B (PCR) (NotDetected) M. pneumoniae (PCR) (NotDetected) Parainfluenza 1 (PCR) (NotDetected) Parainfluenza 2 (PCR) (NotDetected) Parainfluenza 3 (PCR) (NotDetected) Parainfluenza 4 (PCR) (NotDetected) RSV (PCR) (NotDetected) Entero/Rhino (PCR) (NotDetected) TB Test (QFT) Gold Plus Pending TB Test (QFT) Nil Pending TB Test Mitogen - Nil Pending TB Test Ag - Nil 1 Pending TB Test Ag - Nil 2 Pending Blood Type Antibody Screen 04/19/24 04/19/24 04/19/24 Range/Units 05:31 05:00 04:45 WBC 24.55 H (4.8-10.8) K/ul RBC 3.80 L (4.70-6.10) M/uL Hgb 10.6 L D (14.0-18.0) g/dl POC Hgb 11.6 L (14.0-18.0) g/dl Hct 32.4 L (42.0-52.0) % POC Hct 34 L (42-52) % MCV 85.3 (80.0-100.0) fL MCH 27.9 (25.0-34.0) pg MCHC 32.7 (32.0-36.0) g/dL RDW Std Deviation 54.0 H (36.4-46.3) fL RDW Coeff of Aissatou 17.9 H (11.5-14.5) % Plt Count 341 (130-400) K/uL MPV 9.3 L (9.4-12.4) fL Immature Gran % (Auto) 1.2 % Neut % (Auto) 87.7 % Lymph % (Auto) 5.8 % Rice % (Auto) 4.9 % Eos % (Auto) 0.2 % Baso % (Auto) 0.2 % Neut # (Auto) 21.51 H (1.40-6.50) K/uL Lymph # (Auto) 1.43 (1.20-3.40) K/uL Rice # (Auto) 1.21 H (0.11-0.59) K/uL Eos # (Auto) 0.06 (0.00-0.50) K/uL Baso # (Auto) 0.05 (0.00-0.20) K/uL Immature Gran # (Auto) 0.29 H (0.01-0.20) K/uL Hypersegmented Neuts Polychromasia Rouleaux 1+ PT (9.0-12.0) Seconds INR (0.9-1.1) APTT (21-31) Seconds PTT Ratio Heparin Anti-Xa, Unfract (0.3-0.7) IU/ml POC pH 7.46 H (7.35-7.45) POC pCO2 38 (35-46) mmHg POC pO2 164 H (80-95) mmHg POC HCO3 27 H (19-24) allison/L POC Total CO2 28 (24-31) mmol/L POC Base Excess 3.0 H (-9-1.8) allison/L POC ABG O2 Sat 100.0 H (90-95) % VBG pH (7.36-7.41) VBG pCO2 (38-50) mmHg VBG pO2 mmHg VBG HCO3 mmol/L VBG O2 Saturation % VBG Base Excess mEq/L POC Sodium 136 (135-144) mmol/L Sodium 136 (136-145) mmol/L POC Potassium 2.8 L (3.3-5.0) mmol/L Potassium 2.9 L (3.5-5.1) mmol/L Chloride 101 (98-107) mmol/L Carbon Dioxide 25 (21-32) mmol/L Anion Gap 10 (3-11) BUN 19 (6-23) mg/dl Creatinine < 0.20 L (0.6-1.4) mg/dl Est Cr Clr Drug Dosing 560.5 ml/min Est GFR ( Amer) > 150.0 ml/min Est GFR (Non-Af Amer) > 150.0 ml/min BUN/Creatinine Ratio TNP Glucose 178 H (70-99(Fasting)) mg/dl POC Glucose (70-99) mg/dl Lactate (0.4-2.0) mmol/L Calcium 7.5 L (8.6-10.3) mg/dl Ionized Calcium (1.12-1.32) mmol/L Phosphorus (2.5-4.9) mg/dl Magnesium 2.5 H (1.7-2.4) mg/dl Total Bilirubin 0.6 D (0.2-1.0) mg/dl Direct Bilirubin (0-0.2) mg/dl AST 14 (13-39) U/L ALT 8 (7-52) U/L Alkaline Phosphatase 133 H (34-104) U/L Troponin I High Sens (0-20) pg/ml Total Protein 7.0 D (6.0-8.3) gm/dl Albumin 2.7 L (3.4-5.0) gm/dl Globulin 4.3 H (2.5-4.0) gm/dl Albumin/Globulin Ratio 0.6 L (0.9-2) Lipase 136 H (11-82) U/L Procalcitonin (0-0.5) ng/ml TSH Random Cortisol mcg/dl Urine Color Urine Appearance (Clear) Urine pH (4.5-7.5) Ur Specific Lentner (1.000-1.030) Urine Protein (Negative) Urine Glucose (UA) (Negative) Urine Ketones (Negative) Urine Blood (Negative) Urine Nitrite (Negative) Urine Bilirubin (Negative) Urine Urobilinogen (Negative) Ur Leukocyte Esterase (Negative) Urine WBC (Auto) (0-5) /hpf Urine RBC (Auto) (0-2) /hpf U Hyaline Cast (Auto) (0-2) /lpf U Epithel Cells (Auto) (0-2) /hpf Urine Bacteria (Auto) (None Seen) Nasal Screen MRSA (PCR) Negative (Negative) Adenovirus (PCR) (NotDetected) B. pertussis DNA (PCR) (NotDetected) B.parapertussis DNA PCR (NotDetected) C. pneumoniae DNA (PCR) (NotDetected) Coronavirus OC43 (PCR) (NotDetected) Coronavirus HKU1 (PCR) (NotDetected) Coronavirus 229E (PCR) (NotDetected) SARS-CoV-2 (PCR) (NotDetected) Coronavirus NL63 (PCR) (NotDetected) Human Metapneumovir PCR (NotDetected) Influenza Type A (PCR) (NotDetected) Influenza Type B (PCR) (NotDetected) M. pneumoniae (PCR) (NotDetected) Parainfluenza 1 (PCR) (NotDetected) Parainfluenza 2 (PCR) (NotDetected) Parainfluenza 3 (PCR) (NotDetected) Parainfluenza 4 (PCR) (NotDetected) RSV (PCR) (NotDetected) Entero/Rhino (PCR) (NotDetected) TB Test (QFT) Gold Plus TB Test (QFT) Nil TB Test Mitogen - Nil TB Test Ag - Nil 1 TB Test Ag - Nil 2 Blood Type Antibody Screen 04/19/24 04/18/24 04/18/24 Range/Units 02:03 23:29 20:25 WBC (4.8-10.8) K/ul RBC (4.70-6.10) M/uL Hgb (14.0-18.0) g/dl POC Hgb (14.0-18.0) g/dl Hct (42.0-52.0) % POC Hct (42-52) % MCV (80.0-100.0) fL MCH (25.0-34.0) pg MCHC (32.0-36.0) g/dL RDW Std Deviation (36.4-46.3) fL RDW Coeff of Aissatou (11.5-14.5) % Plt Count (130-400) K/uL MPV (9.4-12.4) fL Immature Gran % (Auto) % Neut % (Auto) % Lymph % (Auto) % Rice % (Auto) % Eos % (Auto) % Baso % (Auto) % Neut # (Auto) (1.40-6.50) K/uL Lymph # (Auto) (1.20-3.40) K/uL Rice # (Auto) (0.11-0.59) K/uL Eos # (Auto) (0.00-0.50) K/uL Baso # (Auto) (0.00-0.20) K/uL Immature Gran # (Auto) (0.01-0.20) K/uL Hypersegmented Neuts Polychromasia Rouleaux PT (9.0-12.0) Seconds INR (0.9-1.1) APTT (21-31) Seconds PTT Ratio Heparin Anti-Xa, Unfract (0.3-0.7) IU/ml POC pH (7.35-7.45) POC pCO2 (35-46) mmHg POC pO2 (80-95) mmHg POC HCO3 (19-24) allison/L POC Total CO2 (24-31) mmol/L POC Base Excess (-9-1.8) allison/L POC ABG O2 Sat (90-95) % VBG pH 7.46 H (7.36-7.41) VBG pCO2 37 L (38-50) mmHg VBG pO2 59 mmHg VBG HCO3 26 mmol/L VBG O2 Saturation 90.1 % VBG Base Excess 2.5 mEq/L POC Sodium (135-144) mmol/L Sodium (136-145) mmol/L POC Potassium (3.3-5.0) mmol/L Potassium (3.5-5.1) mmol/L Chloride (98-107) mmol/L Carbon Dioxide (21-32) mmol/L Anion Gap (3-11) BUN (6-23) mg/dl Creatinine (0.6-1.4) mg/dl Est Cr Clr Drug Dosing ml/min Est GFR ( Amer) ml/min Est GFR (Non-Af Amer) ml/min BUN/Creatinine Ratio Glucose (70-99(Fasting)) mg/dl POC Glucose (70-99) mg/dl Lactate 1.2 (0.4-2.0) mmol/L Calcium (8.6-10.3) mg/dl Ionized Calcium (1.12-1.32) mmol/L Phosphorus (2.5-4.9) mg/dl Magnesium (1.7-2.4) mg/dl Total Bilirubin (0.2-1.0) mg/dl Direct Bilirubin (0-0.2) mg/dl AST (13-39) U/L ALT (7-52) U/L Alkaline Phosphatase (34-104) U/L Troponin I High Sens 10.5 D (0-20) pg/ml Total Protein (6.0-8.3) gm/dl Albumin (3.4-5.0) gm/dl Globulin (2.5-4.0) gm/dl Albumin/Globulin Ratio (0.9-2) Lipase (11-82) U/L Procalcitonin (0-0.5) ng/ml TSH 2.102 Random Cortisol mcg/dl Urine Color Dark Yellow Urine Appearance Cloudy A (Clear) Urine pH 6.0 (4.5-7.5) Ur Specific Lentner 1.021 (1.000-1.030) Urine Protein 2+ H (Negative) Urine Glucose (UA) Negative (Negative) Urine Ketones Trace H (Negative) Urine Blood Trace H (Negative) Urine Nitrite Negative (Negative) Urine Bilirubin Negative (Negative) Urine Urobilinogen Negative (Negative) Ur Leukocyte Esterase 3+ H (Negative) Urine WBC (Auto) >50 H (0-5) /hpf Urine RBC (Auto) 3-5 H (0-2) /hpf U Hyaline Cast (Auto) 3-5 H (0-2) /lpf U Epithel Cells (Auto) 0-2 (0-2) /hpf Urine Bacteria (Auto) 4+ H (None Seen) Nasal Screen MRSA (PCR) (Negative) Adenovirus (PCR) (NotDetected) B. pertussis DNA (PCR) (NotDetected) B.parapertussis DNA PCR (NotDetected) C. pneumoniae DNA (PCR) (NotDetected) Coronavirus OC43 (PCR) (NotDetected) Coronavirus HKU1 (PCR) (NotDetected) Coronavirus 229E (PCR) (NotDetected) SARS-CoV-2 (PCR) (NotDetected) Coronavirus NL63 (PCR) (NotDetected) Human Metapneumovir PCR (NotDetected) Influenza Type A (PCR) (NotDetected) Influenza Type B (PCR) (NotDetected) M. pneumoniae (PCR) (NotDetected) Parainfluenza 1 (PCR) (NotDetected) Parainfluenza 2 (PCR) (NotDetected) Parainfluenza 3 (PCR) (NotDetected) Parainfluenza 4 (PCR) (NotDetected) RSV (PCR) (NotDetected) Entero/Rhino (PCR) (NotDetected) TB Test (QFT) Gold Plus TB Test (QFT) Nil TB Test Mitogen - Nil TB Test Ag - Nil 1 TB Test Ag - Nil 2 Blood Type Antibody Screen 04/18/24 Range/Units 20:08 WBC 34.29 H* (4.8-10.8) K/ul RBC 4.99 (4.70-6.10) M/uL Hgb 13.9 L (14.0-18.0) g/dl POC Hgb (14.0-18.0) g/dl Hct 40.8 L (42.0-52.0) % POC Hct (42-52) % MCV 81.8 (80.0-100.0) fL MCH 27.9 (25.0-34.0) pg MCHC 34.1 (32.0-36.0) g/dL RDW Std Deviation 51.8 H (36.4-46.3) fL RDW Coeff of Aissatou 18.0 H (11.5-14.5) % Plt Count 526 H (130-400) K/uL MPV 9.1 L (9.4-12.4) fL Immature Gran % (Auto) 1.9 % Neut % (Auto) 84.1 % Lymph % (Auto) 9.2 % Rice % (Auto) 4.5 % Eos % (Auto) 0.1 % Baso % (Auto) 0.2 % Neut # (Auto) 28.84 H (1.40-6.50) K/uL Lymph # (Auto) 3.17 (1.20-3.40) K/uL Rice # (Auto) 1.56 H (0.11-0.59) K/uL Eos # (Auto) 0.02 (0.00-0.50) K/uL Baso # (Auto) 0.06 (0.00-0.20) K/uL Immature Gran # (Auto) 0.64 H (0.01-0.20) K/uL Hypersegmented Neuts 1+ Polychromasia 1+ Rouleaux PT 12.8 H (9.0-12.0) Seconds INR 1.2 H (0.9-1.1) APTT 34 H (21-31) Seconds PTT Ratio 1.3 Heparin Anti-Xa, Unfract (0.3-0.7) IU/ml POC pH (7.35-7.45) POC pCO2 (35-46) mmHg POC pO2 (80-95) mmHg POC HCO3 (19-24) allison/L POC Total CO2 (24-31) mmol/L POC Base Excess (-9-1.8) allison/L POC ABG O2 Sat (90-95) % VBG pH 7.69 H (7.36-7.41) VBG pCO2 23 L (38-50) mmHg VBG pO2 48 mmHg VBG HCO3 28 mmol/L VBG O2 Saturation 85.3 % VBG Base Excess 8.8 mEq/L POC Sodium (135-144) mmol/L Sodium 131 L (136-145) mmol/L POC Potassium (3.3-5.0) mmol/L Potassium 2.9 L (3.5-5.1) mmol/L Chloride 89 L (98-107) mmol/L Carbon Dioxide 26 (21-32) mmol/L Anion Gap 16 H (3-11) BUN 28 H (6-23) mg/dl Creatinine < 0.20 L (0.6-1.4) mg/dl Est Cr Clr Drug Dosing 560.5 ml/min Est GFR ( Amer) > 150.0 ml/min Est GFR (Non-Af Amer) > 150.0 ml/min BUN/Creatinine Ratio TNP Glucose 174 H (70-99(Fasting)) mg/dl POC Glucose (70-99) mg/dl Lactate 3.3 H* (0.4-2.0) mmol/L Calcium 8.6 (8.6-10.3) mg/dl Ionized Calcium (1.12-1.32) mmol/L Phosphorus 2.5 (2.5-4.9) mg/dl Magnesium 3.0 H (1.7-2.4) mg/dl Total Bilirubin 1.1 H (0.2-1.0) mg/dl Direct Bilirubin 0.3 H (0-0.2) mg/dl AST 13 (13-39) U/L ALT 11 (7-52) U/L Alkaline Phosphatase 195 H (34-104) U/L Troponin I High Sens 27.6 H (0-20) pg/ml Total Protein 9.1 H (6.0-8.3) gm/dl Albumin 3.4 (3.4-5.0) gm/dl Globulin (2.5-4.0) gm/dl Albumin/Globulin Ratio (0.9-2) Lipase 139 H (11-82) U/L Procalcitonin 64.60 H (0-0.5) ng/ml TSH Cancelled Random Cortisol mcg/dl Urine Color Urine Appearance (Clear) Urine pH (4.5-7.5) Ur Specific Lentner (1.000-1.030) Urine Protein (Negative) Urine Glucose (UA) (Negative) Urine Ketones (Negative) Urine Blood (Negative) Urine Nitrite (Negative) Urine Bilirubin (Negative) Urine Urobilinogen (Negative) Ur Leukocyte Esterase (Negative) Urine WBC (Auto) (0-5) /hpf Urine RBC (Auto) (0-2) /hpf U Hyaline Cast (Auto) (0-2) /lpf U Epithel Cells (Auto) (0-2) /hpf Urine Bacteria (Auto) (None Seen) Nasal Screen MRSA (PCR) (Negative) Adenovirus (PCR) (NotDetected) B. pertussis DNA (PCR) (NotDetected) B.parapertussis DNA PCR (NotDetected) C. pneumoniae DNA (PCR) (NotDetected) Coronavirus OC43 (PCR) (NotDetected) Coronavirus HKU1 (PCR) (NotDetected) Coronavirus 229E (PCR) (NotDetected) SARS-CoV-2 (PCR) (NotDetected) Coronavirus NL63 (PCR) (NotDetected) Human Metapneumovir PCR (NotDetected) Influenza Type A (PCR) (NotDetected) Influenza Type B (PCR) (NotDetected) M. pneumoniae (PCR) (NotDetected) Parainfluenza 1 (PCR) (NotDetected) Parainfluenza 2 (PCR) (NotDetected) Parainfluenza 3 (PCR) (NotDetected) Parainfluenza 4 (PCR) (NotDetected) RSV (PCR) (NotDetected) Entero/Rhino (PCR) (NotDetected) TB Test (QFT) Gold Plus TB Test (QFT) Nil TB Test Mitogen - Nil TB Test Ag - Nil 1 TB Test Ag - Nil 2 Blood Type Antibody Screen Diagnostic Findings Chest X-Ray 04/18/24 19:38 XR chest 1V portable HISTORY: 38 years-old Male Sepsis acute sepsis COMPARISON: CTA chest of same day, CT abdomen and pelvis 03/30/2024 TECHNIQUE: AP view of the chest FINDINGS: Unchanged positioning of the tracheostomy cannula. Cardiac silhouette is normal in size. Mild subsegmental bibasilar atelectasis. No pneumothorax, pleural effusion or pulmonary edema. 5.5 cm cavitary opacity of the inferior segment lingula. Bones appear grossly intact. IMPRESSION: Cavitary consolidation of the inferior segment lingula is new from the 03/30/2024 study suggestive of necrotic pneumonia. Follow-up imaging after treatment course is needed in order to document resolution. ACT 112: Negative or not required by law. The above report was generated using voice recognition software. It may contain grammatical, syntax or spelling errors. Electronically signed by: James Brody M.D. 04/19/2024 7:09 AM Abdomen/Pelvis CT 04/18/24 21:15 CR Exam(s): CT ABDOMEN + PELVIS With Contrast IV Amt: 120ml opti 320 EXAM: CT Abdomen and Pelvis With Intravenous Contrast CLINICAL HISTORY: Sepsis TECHNIQUE: Axial computed tomography images of the abdomen and pelvis with intravenous contrast. CTDI is 24 mGy and DLP is 1385 mGy-cm. Automated exposure control was utilized for the study. A dose lowering technique was utilized adhering to the principles of ALARA. CONTRAST: Patient received 120ml opti 320 of IV contrast COMPARISON: No relevant prior studies available. FINDINGS: Lung bases: Unremarkable. No mass. No consolidation. ABDOMEN: Liver: Fatty infiltration of the liver. Gallbladder and bile ducts: Unremarkable. No calcified stones. No ductal dilation. Pancreas: There is inflammatory stranding surrounding the pancreas. No ductal dilation. Spleen: Unremarkable. No splenomegaly. Adrenals: Unremarkable. No mass. Kidneys and ureters: Unremarkable. No solid mass. No hydronephrosis. Stomach and bowel: Unremarkable. No obstruction. No mucosal thickening. PELVIS: Appendix: Normal appendix. Bladder: Thickening of the bladder wall is concerning for cystitis. Reproductive: Unremarkable as visualized. ABDOMEN and PELVIS: Intraperitoneal space: Unremarkable. No free air. No significant fluid collection. Bones/joints: There are degenerative changes of the spine. No acute fracture. No dislocation. Soft tissues: Unremarkable. 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 No abdominal aortic aneurysm. Lymph nodes: Unremarkable. No enlarged lymph nodes. IMPRESSION: 1. 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 2. There is inflammatory stranding surrounding the pancreas. This is concerning for acute edematous pancreatitis. A 1.2 cm fluid collection of the uncinate process is consistent with an acute peripancreatic fluid collection. No hemorrhage or necrosis. 3. Thickening of the bladder wall is concerning for cystitis. 4. Fatty infiltration of the liver. Communications: Call Doctor Above results Electronically signed by: Bea Emerson MD 04/18/24 23:23 PM Chest CTA 04/18/24 21:15 CR Exam(s): CTA CHEST IV Amt: 120ml opti 320 EXAM: CT Angiography Chest With Intravenous Contrast CLINICAL HISTORY: Sepsis TECHNIQUE: Axial computed tomographic angiography images of the chest with intravenous contrast. MIPS images were created and reviewed. CTDI is 24 mGy and DLP is 1385 mGy-cm. Automated exposure control was utilized for the study. A dose lowering technique was utilized adhering to the principles of ALARA. MIP reconstructed images were created and reviewed. COMPARISON: CTA chest 03/30/2024 FINDINGS: Pulmonary arteries: Unremarkable. No pulmonary embolus. Aorta: No acute findings. No thoracic aortic aneurysm. Lungs: New airspace opacity of the lingula with a 4 cm cavitary lesion. Bibasilar atelectasis. Pleural space: Unremarkable. No significant effusion. No pneumothorax. Heart: Unremarkable. No cardiomegaly. No significant pericardial effusion. No evidence of RV dysfunction. Bones/joints: No acute fracture. No dislocation. Soft tissues: Unremarkable. Lymph nodes: Unremarkable. No enlarged lymph nodes. Pancreas: There is inflammatory stranding surrounding the tail the pancreas. Tubes, lines and devices: The tracheostomy tube is in good position. IMPRESSION: 1. No pulmonary embolus. 2. New airspace opacity of the lingula with a 4 cm cavitary lesion. This favors cavitary pneumonia, including tuberculosis. 3. There is inflammatory stranding surrounding the tail the pancreas. Clinical correlation is recommended to exclude acute pancreatitis. Communications: Verify Receipt Electronically signed by: Bea Emerson MD 04/18/24 23:16 PM Cholangiopancreatography MRI 04/19/24 02:01 Exam(s): MRI MRCP EXAM: MR Abdomen Without Intravenous Contrast, MRCP Protocol CLINICAL HISTORY: Abdominal Pain. TECHNIQUE: Multiplanar magnetic resonance images of the abdomen without intravenous contrast using MRCP protocol. COMPARISON: CT abdomen and pelvis from earlier today. FINDINGS: Bile ducts: Mildly dilated common bile duct measuring 7 mm without filling defect. No stones. There is tapering of the distal common bile duct. Gallbladder: Unremarkable. No stones. Liver: Fatty infiltration of the liver. Pancreas: Multiple cystic lesions of the pancreas measure up to 1.5 cm. There is inflammatory stranding surrounding the pancreas. No hemorrhage, necrosis or organized peripancreatic fluid collection. No ductal dilation. Spleen: Unremarkable. No splenomegaly. Adrenals: Unremarkable. No mass. Kidneys and ureters: Unremarkable. No hydronephrosis. Stomach and bowel: Unremarkable. No obstruction. Other findings: A GJ-tube is in good position. IMPRESSION: 1. There is inflammatory stranding surrounding the pancreas. No hemorrhage, necrosis or organized peripancreatic fluid collection. This is most consistent with acute edematous pancreatitis. Redemonstrated nonocclusive thrombus of the portal, splenic and superior mesenteric veins. 2. Multiple cystic lesions of the pancreas measure up to 1.5 cm. This is concerning for acute peripancreatic fluid collections. 3. Mildly dilated common bile duct measuring 7 mm without filling defect. There is tapering of the distal common bile duct. This could relate to ascending cholangitis. Electronically signed by: Bea Emerson MD 04/19/24 04:33 AM PG Care Time/CCT Total # of Minutes Spent Total Time Spent: 100 Total Time Spent with Patient: Total time spent is greater than 50% in coordination of care (as documented) at patient's floor/unit and/or counseling patient: I spent 135 minutes overall addressing this case: 25 min in medical data review/discussion with referring provider(s) and/or preparation for the visit incl [employer] E[facility] link and [facility] 45 min in direct interaction with the patient/exam/communication via speech device 45 min in Advance Care Planning/Goals of Care discussions as detailed above in note (must be >16min) 10 min in subsequent review and synthesis of assessment and plan 10 min communicating with other providers regarding the patient's case: Advanced Care Planning 72975 Advanced Care Planning 30 Min 43538 Advanced Care Planning Additional 30 [place] [address] IN/OBS CONSULT LVL 5,80M (25 - SIGNIFICANT, SEPARATELY IDENTIFIABLE ) Patient Type New Medical Decision Making High Complexity Diagnoses Generalized pain R52 Muscle spasticity M62.838 Weakness generalized R53.1 Dyspnea and respiratory abnormalities R06.00; R06.89 Advanced care planning/counseling discussion Z71.89 Palliative care by specialist Z51.5 Additional Codes Advanced Care Planning - 46829 Advanced Care Planning 30 Min: 91207 Advanced Care Planning 30 Min ([id number]) Advanced Care Planning - 68397 Advanced Care Planning Additional 30 Min: 57144 Advanced Care Planning Additional 30 Min ([id number])
--- NOTE | 2024-04-20 16:00 | Hospitalist Progress Note ---
Date of Service April 20, 2024 Assessment & Plan (1) Respiratory failure: Plan: hx ventilator dependent respiratory failure secondary to ALS status post tracheostomy Marked respiratory alkalosis on admission VBG Severe sepsis SIRS plus lactic acidosis Multifactorial: Recurrent cholangitis HCAP, possible aspiration, hx aspiration risk status post PEG tube placement Urinary tract infection Blood cultures: Negative so far Sputum culture: Gram-negative bacilli Urine culture: E. 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 IV heparin Full code as per . Admission and Anticipated Discharge Date Admission Date: April 19, 2024 Subjective Follow-up for sepsis, acute cholangitis, pneumonia, UTI, etc. Seen resting in bed, awake, communicates via keyboard Feels better overall No shortness of breath, abdominal pain No other new symptoms Review of Systems Review of Systems: all noted and negative except for above Physical Exam Physical Exam: General- oriented , breathing with no effort or accessory muscle use (+) trach- no bleeding, discharge Eyes- anicteric Neck- no JVD Lungs- clear breath sounds bilaterally, no rales/wheezes Heart- normal rate, regular rhythm; no murmurs Abdomen- normal bowel sounds, nondistended, soft, nontender PEg tube in place Extremities- no pretibial edema, no calf tenderness Neuro- alert, oriented x 3; no gross focal neurologic deficits Skin- warm & dry Results & Data Results & Data Vital Signs (Past 12 Hours) Vital Signs Temp Pulse Resp BP Pulse Ox O2 Del Method FiO2 04/20/24 15:41 85 15 100 30 04/20/24 15:38 30 04/20/24 15:28 86 04/20/24 15:03 38.1 C H 84 14 100 04/20/24 15:00 87/60 L 04/20/24 14:30 91/59 L 04/20/24 14:30 38.0 C H 83 14 100 04/20/24 13:20 101/64 04/20/24 13:06 38.0 C H 81 14 89/62 L 100 04/20/24 12:03 37.9 C H 84 10 L 100 04/20/24 12:00 84/57 L 04/20/24 12:00 30 04/20/24 11:42 37.9 C H 82 14 98 04/20/24 11:00 87/59 L 04/20/24 11:00 38.0 C H 83 14 99 04/20/24 11:00 85 15 98 30 04/20/24 10:00 88/56 L 04/20/24 10:00 38.1 C H 93 H 14 98 04/20/24 09:24 38.1 C H 99 H 14 95/57 L 98 04/20/24 09:00 Mechanical Vent 30 04/20/24 08:00 102 H 04/20/24 08:00 38.2 C H 100 H 14 99 04/20/24 08:00 30 04/20/24 07:40 101 H 14 98 30 04/20/24 07:00 91/56 L 04/20/24 07:00 38.4 C H 92 H 14 98 04/20/24 06:18 38.3 C H 91 H 14 98 04/20/24 06:00 88/51 L 04/20/24 05:45 38.3 C H 91 H 14 99 04/20/24 05:06 38.1 C H 93 H 14 98 04/20/24 05:00 85/52 L 04/20/24 04:48 38.0 C H 97 H 14 98 04/20/24 04:33 37.9 C H 95 H 14 98 04/20/24 04:00 90/54 L 04/20/24 04:00 30 all noted and reviewed including below
[2024-04-20] MEDS: MoRPHine SULFATE 4 MG/ML 1 ML CARP\\VIAL IV PRN (16:29)
[2024-04-20 17:48] LABS: ANTI-Xa, UFH(UnfractionatedHep 0.23 IU/ml (0.3-0.7)
[2024-04-21 01:20] LABS: ANTI-Xa, UFH(UnfractionatedHep 0.26 IU/ml (0.3-0.7)
[2024-04-21 05:18] LABS: Alanine Aminotransferase 11 U/L (7-52); Albumin Level 2.4 gm/dl (3.4-5.0); Alkaline Phosphatase 104 U/L (34-104); Aspartate Aminotransferase 16 U/L (13-39); Bilirubin Direct 0.3 mg/dl (0-0.2); Bilirubin,Total 0.6 mg/dl (0.2-1.0); Creatinine Clr Calc Pharmacy 560.5 ml/min; Est GFR (African American) > 150.0 ml/min; Est GFR (Non-African American) > 150.0 ml/min; Lipase 84 U/L (11-82); Total Protein 6.2 gm/dl (6.0-8.3); Triglycerides 112 mg/dl (0-150)
--- NOTE | 2024-04-21 08:25 | Critical Care Progress Note ---
Date of Service April 21, 2024 Assessment & Plan (1) Weakness generalized: (2) Lung abscess: (3) Hepatic vein thrombosis: (4) E. coli UTI: (5) Dependent on ventilator: (6) Respiratory failure: (7) Sepsis: (8) Ventilator dependence: (9) ALS (amyotrophic lateral sclerosis): (10) History of tracheostomy: Plan Impression: 38-year-old male with end-stage ALS, ventilator dependent s/p trach, G/J tube placement, chronic pancreatitis, hx of pseudocyst and pancreatic necrosis admitted to the ICU due to sepsis and management of mechanical ventilation. Neuro: * ALSpatient with end-stage ALS and ventilator dependent with tracheostomy and G/J-tube for feeds. Cardiac * Hypotension versus dysautonomia: Managed on chronic midodrine -Echo: EF: 50-55%, Borderline global hypokinesis of the left ventricle. Grade 1 diastolic dysfunction. No valvular abnormalities on limited visualization -Patient's blood pressure appears to be running relatively lower than during prior admissions: appears to correlate to fever episodes Respiratory: * Mechanical ventilation -patient with end-stage ALS and ventilator dependent with previous tracheostomy. GI: * GJ tube- Will restart feeding today * Acute on chronic pancreatitisday 2 bowel rest -Patient's highest lipase readings were back in June 2022, he has not trended within normal limits since April 2022 * Abdominal pain: - Acute cholangitis vs pancreatitis MRCP reviewed -Reviewed GI recommendations -LFTs within normal limits, bilirubin within normal limits - 04/19 MRCP CBD: 1.5 cm no filling defect - 04/01 GBUS CBD : 0.7 cm at level of hepatic artery -Doubtful this represents ascending cholangitis at the present, more C/W pancreatitis * Venous thromboembolism: Nonocclusive of portal vein and splanchnic circulation -Continue systemic anticoagulation Skin: - Ulcer on bilateral buttocks - Wound care consulted RENAL/LYTES: * Hypokalemia: Continue repletion - s/p 4 bags potassium acetate * Hypocalcemia -Checking ionized calcium and replace as necessary in the setting of chronic pancreatitis * Maintenance fluids while n.p.o. - Plasma-Lyte at 80 mL/h * Lactic acidosisresolved : * Currently with indwelling Foleystrict I's and O's -Frequent urinary tract infections, normally straight caths * Pansensitive E. coli urinary tract infection -This will be treated with antibiotics for coverage of lung abscess, continue Varela for hygiene purposes and to minimize instrumentation for a couple of days ENDO: No history of diabetes or thyroid disease. ICU hyperglycemic protocol Possible chronic pancreatic insufficiency HEME: H&H stable -Type and screen ordered Systemic anticoagulation for venous thromboembolism: Nonocclusive of portal vein and splanchnic circulation -Would consider transition to oral anticoagulant once outside of need for possible sampling of lung abscess/additional invasive procedures ID: * Pansensitive E. coli urinary tract infection * Lung abscess (cavitary lesion) -Chronic vent patient at risk for Pseudomonas, healthcare associated infections, MRSA - Quant gold pending. Continue isolation precautions * Sputum culture positive for Pseudomonas -Ongoing fever despite coverage with Zyvox and Zosyn, if this fever continues would strongly consider sampling of lung abscess (which may be best facilitated by thoracic surgery) - WBC downtrending -Will likely require weeks of antibiotic therapy, no indication to de-escalate to oral antibiotics * Possible intra-abdominal sources: Doubtful * Doubtful ascending cholangitis, also doubtful infected pancreatic necrosis given recent imaging findings -Will likely necessitate follow-up imaging to include necrosis/pseudocyst/evolution of lung abscess/cavitary lesion * Blood cultures remain negative -Will repeat blood cultures during episodes of fibrillated to increase diagnostic yield LINES/IV ACCESS - Peripheral IVs, J-tube DVT PROPHYLAXIS - SCDs, heparin drip CODE STATUS: Full code Disposition: If patient remains febrile will likely need additional invasive procedures/evaluation by thoracic surgery versus IR guided drainage, would necessitate transfer as we do not have Thoracics Admission and Anticipated Discharge Date Admission Date: April 19, 2024 Supervising Physician Co-Signing Physician Notes Dr. Friedman was resident physician during care of patient. I separately evaluated patient for garcia portions of the history and the exam. I was present during the critical portion of medical decision making, and I discussed the case with the resident. I generally agree with the findings and plan. Discussed findings and treatment plan with and patient, patient still having fevers despite appropriate antibiotic therapy, I am concerned the lung abscess necessitates drainage. This is best accomplished with thoracic surgery. Not withstanding patient at risk for bronchopleural fistula which would be devastating in a chronic vent dependent ALS patient. Continuing with Zyvox for possible MRSA ( reports last documented MRSA infection was approximately 2013) and Zosyn. Sputum aspirate positive for pansensitive Pseudomonas. Patient does not have risk factors for tuberculosis, I am strongly advocating for discontinuation of airborne precautions to facilitate transfer and care as the lung abscess is highly likely related to pseudomonal infection. Only tuberculosis risk factor in this patient who has undergone previous bronchoscopy evaluations would be possible healthcare associated exposure which is not a kno wn risk factor, family denies having received notification from hospital for accidental TB exposure in healthcare setting. Not withstanding QuantiFERON gold has been sent and is pending. Patient reports abdominal pain only with repositioning, this is also chronic in nature. Lipase and LFTs are normalized or normalizing, reinstitute elemental based tube feeds. I feel there may be aspects of chronic pancreatitis as it appears the patient does have pancreatic insufficiency as inferred by an elevated A1c. I have notified the institutional transfer center to help facilitate transfer to the [place], this is a federal holiday and they have left a message for the institution to return our phone call. Subjective 38-year-old male with end-stage ALS, ventilator dependent s/p trach, G/J tube placement, chronic pancreatitis, hx of pseudocyst and pancreatic necrosis admitted to the ICU due to sepsis and management of mechanical ventilation. Patient currently being treated with Zosyn and Linezolid. Sputum positive for Pseudomonas pansensitive. WBC thien trending down but patient remained to have a fevers and hypotension. Patient will need sampling of lung abscess. This will be best facilitated by thoracic surgery IR guided drainage. Will probably need transfer. Review of Systems Review of Systems: as per HPI Physical Exam Constitutional: Resting comfortable in bed, awake Neck: + trach Respiratory: normal respiratory effort, lungs clear to auscultation Cardiovascular: RRR, no murmur, no edema Gastrointestinal (Abdomen): G-J tube in place Musculoskeletal: No pretibial edema, GJ tube in placed, no bleeding, non tender Muscle wasting Results & Data Results & Data Vital Signs (Past 12 Hours) Vital Signs Temp Pulse Resp BP Pulse Ox O2 Del Method FiO2 04/21/24 05:03 37.6 C H 90 14 91/53 L 98 30 04/21/24 04:00 99/63 L 04/21/24 04:00 37.6 C H 86 15 100 30 04/21/24 04:00 30 04/21/24 03:30 81 14 98 30 04/21/24 03:03 37.6 C H 82 14 84/54 L 100 30 04/21/24 02:00 37.6 C H 76 14 81/53 L 04/21/24 01:00 92/61 L 04/21/24 01:00 37.6 C H 81 14 30 04/21/24 00:12 37.6 C H 80 14 90/60 L 100 04/21/24 00:00 80 04/21/24 00:00 30 04/20/24 23:25 78 14 100 30 04/20/24 23:00 37.6 C H 14 89/60 L 100 04/20/24 22:03 38.0 C H 83 14 91/58 L 100 04/20/24 21:03 38.1 C H 88 16 100 04/20/24 21:00 Mechanical Vent 04/20/24 21:00 90/61 L 04/20/24 20:57 38.1 C H 14 97 30 04/20/24 20:30 90 14 98 30 Resident Activity Tracking Resident Involvement: Resident Care Provided Care Provided: Adult Hospital Medicine (2) Lung abscess Laterality: left Lung location: lower lobe of lung Pulmonary abscess pneumonia presence: without pneumonia Qualified Code(s): J85.2 - Abscess of lung without pneumonia (7) Sepsis Acute respiratory failure type: with hypoxia Sepsis acute organ dysfunction s tatus: with acute organ dysfunction Sepsis type: sepsis due to unspecified organism Severe sepsis acute organ dysfunction type: acute respiratory failure Severe sepsis shock status: unspecified Qualified Code(s): A41.9 - Sepsis, unspecified organism; R65.20 - Severe sepsis without septic shock; J96.01 - Acute respiratory failure with hypoxia
[2024-04-21 09:29] LABS: Basophils # (auto) 0.02 K/uL (0.00-0.20); Basophils % (auto) 0.1 %; Eosinophils # (auto) 0.32 K/uL (0.00-0.50); Eosinophils % (auto) 1.9 %; Hematocrit (blood only) 26.9 % (42.0-52.0); Hemoglobin 8.5 g/dl (14.0-18.0); Immature Granulocytes # (auto) 0.14 K/uL (0.01-0.20); Immature Granulocytes % (auto) 0.8 %; Lymphocytes # (auto) 1.09 K/uL (1.20-3.40); Lymphocytes % (auto) 6.4 %; Mean Corpuscular Hemoglobin 27.6 pg (25.0-34.0); Mean Corpuscular Hgb Conc 31.6 g/dL (32.0-36.0); Mean Corpuscular Volume 87.3 fL (80.0-100.0); Mean Platelet Volume 9.5 fL (9.4-12.4); Monocytes # (auto) 0.42 K/uL (0.11-0.59); Monocytes % (auto) 2.4 %; Neutrophils # (auto) 15.17 K/uL (1.40-6.50); Neutrophils % (auto) 88.4 %; Platelet Count 264 K/uL (130-400); RDW Coefficient of Variation 18.6 % (11.5-14.5); RDW Standard Deviation 56.5 fL (36.4-46.3); Red Blood Count 3.08 M/uL (4.70-6.10); White Blood Count 17.16 K/ul (4.8-10.8)
[2024-04-21 09:46] LABS: Blood Urea Nitrogen 3 mg/dl (6-23); Calcium 7.2 mg/dl (8.6-10.3); Carbon Dioxide 23 mmol/L (21-32); Chloride 100 mmol/L (98-107); Creatinine Clr Calc Pharmacy 557.6 ml/min; Est GFR (African American) > 150.0 ml/min; Est GFR (Non-African American) > 150.0 ml/min; Glucose 134 mg/dl (70-99(Fasting))
[2024-04-21 09:53] LABS: ANTI-Xa, UFH(UnfractionatedHep 0.19 IU/ml (0.3-0.7)
[2024-04-21 10:37] LABS: Magnesium 1.6 mg/dl (1.7-2.4); Phosphorus 3.7 mg/dl (2.5-4.9); Potassium 2.7 mmol/L (3.5-5.1)
[2024-04-21] MEDS: PEPTAMEN 1.5 CAL 1,000 ML BAG JT SCH (11:02)
[2024-04-21] MEDS: TUBE FEEDING WATER FLUSH JT SCH (11:03)
[2024-04-21] MEDS: POTASSIUM CHLORIDE / WTR 10 MEQ/100 ML PLCT IV SCH (11:30)
[2024-04-21 12:43] LABS: Quantiferon Mitogen-NIL 6.09 IU/mL; Quantiferon NIL 0.01 IU/mL; Quantiferon TB Gold Plus NEGATIVE (NEGATIVE)
[2024-04-21] MEDS: HEPARIN IV BOLUS 3,000 UNITS in SYRINGE 0 ML IV STA (13:36)
--- NOTE | 2024-04-21 14:14 | Hospitalist Progress Note ---
Date of Service April 21, 2024 Assessment & Plan (1) Respiratory failure: Plan: hx ventilator dependent respiratory failure secondary to ALS status post tracheostomy Patient was brought to the hospital due to abdominal pain, nausea and vomiting. Severe sepsis Likely secondary to E. coli UTI, Pneumonia Patient was brought to the hospital due to abdominal pain, nausea and vomiting. Recent admission from March 31 to April 01 for septic shock secondary to cholangitis; transfer to tertiary care center for possible ERCP Chest x-ray on admission shows cavitary consolidation of inferior segment lingula suggestive of necrotic pneumonia CTA chest confirmed new area of airspace opacity of the lingula of 4 cm cavitary lesion. CTA abdomen and pelvis shows partially occlusive thrombus of the portal vein and splenic vein. Inflammatory stranding surrounding the pancreas concerning for pancreatitis. 1.2 cm fluid collection of the uncinate process consistent with acute peripancreatic fluid collection. Thickening of bladder concerning for cystitis Sputum cultures growing Pseudomonas aeruginosa; galeano sensitive Blood cultures: Negative so far Urine culture: E. coli, pansensitive Currently on antibiotics (zosyn and zyvox) as per ICU given the cavitary lesion in the CT chest. Possible transfer to [place] for thoracic surgery evaluation for possible biopsy. 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 IV heparin Full code Time spent evaluating patient, direct bedside care, chart review, placing orders, interpretation of diagnostic studies, discussion with consultants, patient, and family members, as well as other required patient management activities is 50 minutes Please note the above document was generated using voice recognition software. It may contain grammatical, syntax or spelling errors. Any formal questions or concerns about the content, text or information contained within the body of this dictation should be directly addressed to the provider for clarification Admission and Anticipated Discharge Date Admission Date: April 19, 2024 Subjective Patient seen and examined at bedside. He continues to be febrile intermittently with borderline blood pressure Currently on heparin drip His is at bedside as well Review of Systems Review of Systems: All systems reviewed & are unremarkable except as noted in Subjective Physical Exam Physical Exam: Constitutional: Appears comfortable; not in distress. Respiratory: Bilateral mechanical breath sound Cardiovascular: RRR, no murmur, no edema Vessels: no JVD or carotid bruit Abdomen: Soft, nontender Musculoskeletal: no cyanosis or clubbing, extremities motor strength 5/5 Skin: no rashes, warm and dry normal turgor Results & Data Results & Data Vital Signs (Past 12 Hours) Vital Signs Temp Pulse Resp BP Pulse Ox FiO2 04/21/24 12:00 30 04/21/24 08:35 101 H 14 99 30 04/21/24 08:00 30 04/21/24 08:00 99 H 04/21/24 05:03 37.6 C H 90 14 91/53 L 98 04/21/24 04:00 99/63 L 04/21/24 04:00 37.6 C H 86 15 100 04/21/24 04:00 04/21/24 03:30 81 14 98 04/21/24 03:03 37.6 C H 82 14 84/54 L 100 04/21/24 02:00 37.6 C H 76 14 81/53 L 30
[2024-04-21] MEDS: HYDROmorphone INJ 1 MG/ML SYRINGE IV PRN (16:54)
[2024-04-21] MEDS: ICU ELECTROLYTE REPLACEMENT PROTOCOL SCH (18:02)
[2024-04-21 18:12] LABS: ANTI-Xa, UFH(UnfractionatedHep 0.33 IU/ml (0.3-0.7)
[2024-04-21] MEDS: MAGNESIUM SULFATE / D5W 1 GM/100 ML BAG IV SCH (18:12)
[2024-04-21] MEDS: LORazepam 0.5 MG in SYRINGE 0.25 ML IV PRN (18:26)
[2024-04-21] MEDS: HYDROmorphone INJ 0.5 MG/0.5 ML SYR IV PRN (23:11)
[2024-04-22 05:10] LABS: Basophils # (auto) 0.02 K/uL (0.00-0.20); Basophils % (auto) 0.2 %; Eosinophils # (auto) 0.55 K/uL (0.00-0.50); Eosinophils % (auto) 4.4 %; Hematocrit (blood only) 26.1 % (42.0-52.0); Hemoglobin 8.3 g/dl (14.0-18.0); Immature Granulocytes # (auto) 0.07 K/uL (0.01-0.20); Immature Granulocytes % (auto) 0.6 %; Lymphocytes # (auto) 2.14 K/uL (1.20-3.40); Lymphocytes % (auto) 17.3 %; Mean Corpuscular Hemoglobin 27.6 pg (25.0-34.0); Mean Corpuscular Hgb Conc 31.8 g/dL (32.0-36.0); Mean Corpuscular Volume 86.7 fL (80.0-100.0); Monocytes # (auto) 0.35 K/uL (0.11-0.59); Monocytes % (auto) 2.8 %; Neutrophils # (auto) 9.23 K/uL (1.40-6.50); Neutrophils % (auto) 74.7 %; Platelet Count 297 K/uL (130-400); RDW Coefficient of Variation 17.1 % (11.5-14.5); RDW Standard Deviation 53.3 fL (36.4-46.3); Red Blood Count 3.01 M/uL (4.70-6.10); White Blood Count 12.36 K/ul (4.8-10.8)
[2024-04-22 05:31] LABS: Alanine Aminotransferase 9 U/L (7-52); Albumin Level 2.2 gm/dl (3.4-5.0); Alkaline Phosphatase 105 U/L (34-104); Anion Gap 8 (3-11); Aspartate Aminotransferase 11 U/L (13-39); Bilirubin Direct 0.2 mg/dl (0-0.2); Bilirubin,Total 0.4 mg/dl (0.2-1.0); Blood Urea Nitrogen 2 mg/dl (6-23); Calcium 7.8 mg/dl (8.6-10.3); Carbon Dioxide 23 mmol/L (21-32); Chloride 106 mmol/L (98-107); Creatinine Clr Calc Pharmacy 557.6 ml/min; Est GFR (African American) > 150.0 ml/min; Est GFR (Non-African American) > 150.0 ml/min; Glucose 110 mg/dl (70-99(Fasting)); Lipase 91 U/L (11-82); Magnesium 2.1 mg/dl (1.7-2.4); Potassium 3.5 mmol/L (3.5-5.1); Sodium 137 mmol/L (136-145); Total Protein 5.6 gm/dl (6.0-8.3)
[2024-04-22] MEDS: POTASSIUM CHLORIDE / WTR 10 MEQ/100 ML PLCT IV SCH (06:20)
--- NOTE | 2024-04-22 06:56 | Critical Care Progress Note ---
Date of Service April 22, 2024 Assessment & Plan (1) Weakness generalized: (2) Lung abscess: (3) Hepatic vein thrombosis: (4) E. coli UTI: (5) Dependent on ventilator: (6) Respiratory failure: (7) Sepsis: (8) ALS (amyotrophic lateral sclerosis): (9) History of tracheostomy: Plan Impression: 38-year-old male with end-stage ALS, ventilator dependent s/p trach, G/J tube placement, chronic pancreatitis, hx of pseudocyst and pancreatic necrosis admitted to the ICU due to sepsis and management of mechanical ventilation. Neuro: * ALSpatient with end-stage ALS and ventilator dependent with tracheostomy and G/J-tube for feeds. Cardiac * Hypotension versus dysautonomia: Managed on chronic midodrine -Echo: EF: 50-55%, Borderline global hypokinesis of the left ventricle. Grade 1 diastolic dysfunction. No valvular abnormalities on limited visualization -Patient's blood pressure appears to be running relatively lower than during prior admissions: appears to correlate to fever episodes Respiratory: * Mechanical ventilation -patient with end-stage ALS and ventilator dependent with previous tracheostomy. GI: * GJ tube- Elemental base tube feedings * Acute on chronic pancreatitis -Patient's highest lipase readings were back in June 2022, he has not trended within normal limits since April 2022 - Lipase trending down * Abdominal pain: - Acute cholangitis vs pancreatitis MRCP reviewed -Reviewed GI recommendations -LFTs within normal limits, bilirubin within normal limits - 04/19 MRCP CBD: 1.5 cm no filling defect - 04/01 GBUS CBD : 0.7 cm at level of hepatic artery -Doubtful this represents ascending cholangitis at the present, more C/W pancreatitis * Venous thromboembolism: Nonocclusive of portal vein and splanchnic circulation -Continue systemic anticoagulation Skin: - Sacral pressure injury - Wound care RENAL/LYTES: * Hypokalemia: Continue repletion - s/p 4 bags potassium acetate * Hypocalcemia -Checking ionized calcium and replace as necessary in the setting of chronic pancreatitis * Maintenance fluids while n.p.o. - Plasma-Lyte at 80 mL/h * Lactic acidosisresolved : * Currently with indwelling Foleystrict I's and O's -Frequent urinary tract infections, normally straight caths * Pansensitive E. coli urinary tract infection -This will be treated with antibiotics for coverage of lung abscess, continue Varela for hygiene purposes and to minimize instrumentation for a couple of days ENDO: * No history of diabetes or thyroid disease. ICU hyperglycemic protocol * Possible chronic pancreatic insufficiency HEME: * H&H stable -Type and screen ordered * Systemic anticoagulation for venous thromboembolism: Nonocclusive of portal vein and splanchnic circulation -Would consider transition to oral anticoagulant once outside of need for possible sampling of lung abscess/additional invasive procedures ID: * Pansensitive E. coli urinary tract infection * Lung abscess (cavitary lesion) -Chronic vent patient at risk for Pseudomonas, healthcare associated infections, MRSA - Quant gold pending - Low risk for TB * Sputum culture positive for Pansensitive Pseudomonas -Ongoing fever despite coverage with Zyvox and Zosyn, if this fever continues would strongly consider sampling of lung abscess (which may be best facilitated by thoracic surgery) - WBC downtrending -Will likely require weeks of antibiotic therapy, no indication to de-escalate to oral antibiotics * Possible intra-abdominal sources: Doubtful * Doubtful ascending cholangitis, also doubtful infected pancreatic necrosis given recent imaging findings -Will likely necessitate follow-up imaging to include necrosis/ pseudocyst/evolution of lung abscess/cavitary lesion * Blood cultures remain negative LINES/IV ACCESS - Peripheral IVs, GJ-tube DVT PROPHYLAXIS - SCDs, heparin drip CODE STATUS: Full code Disposition: If patient remains febrile will likely need additional invasive procedures/evaluation by thoracic surgery versus IR guided drainage, would necessitate transfer as we do not have Thoracics Admission and Anticipated Discharge Date Admission Date: April 19, 2024 Supervising Physician Co-Signing Physician Notes Dr. Friedman was resident physician during care of patient. I separately evaluated patient for garcia portions of the history and the exam. I was present during the critical portion of medical decision making, and I discussed the case with the resident. I generally agree with the findings and plan. Awaiting return call from [place] regarding transfer for thoracics service as yesterday was federal holiday. I am concerned the lung abscess necessitates drainage and patient at risk for bronchopleural fistula which would be devas tating in a chronic vent dependent ALS patient. Continuing with Zyvox for possible MRSA ( reports last documented MRSA infection was approximately 2013) and Zosyn. Sputum aspirate positive for pansensitive Pseudomonas. Patient does not have risk factors for tuberculosis. QuantiFERON gold negative, discontinuing airborne precautions Patient requested transition to Dilaudid from morphine, feels the dilaudid provides better duration of analgesia. I feel there may be aspects of chronic pancreatitis as it appears the patient does have pancreatic insufficiency as inferred by an elevated A1c. Transition to lovenox anticoagulation to minimize fluid accumulation. Transfer center notified that they are working to locate a bed in the [place] and anticipate transfer once bed is confirmed. 0945: D/W Dr. Medina of [place] willing to accept in transfer Subjective 38-year-old male with end-stage ALS, ventilator dependent s/p trach, G/J tube placement, chronic pancreatitis, hx of pseudocyst and pancreatic necrosis admitted to the ICU due to sepsis and management of mechanical ventilation. Patient currently being treated with Zosyn and Linezolid. Sputum positive for Pseudomonas pansensitive. Patient had remained fever free since yesterday afternoon. BP remained on the soft side. TB quantiferon gold negative, airborne precautions will be discontinue. Heparin will be switch to Lovenox sq. Lung abscess need drainage, this will be best facilitated by thoracic surgery. Transfer to [place] will be done today by ground. . Review of Systems Review of Systems: as per HPI Physical Exam Physical Exam: Resting comfortable in bed, awake Neck: + trach Respiratory: Bilateral mechanical breath sound Cardiovascular: RRR, no murmur, no edema Gastrointestinal (Abdomen): Soft, non tender. G-J tube in place, no sign of bleeding or infection Skin: no rashes, warm and dry Results & Data Results & Data Vital Signs (Past 12 Hours) Vital Signs Temp Pulse Resp BP Pulse Ox O2 Del Method FiO2 04/22/24 06:03 36.7 C 76 14 88/55 L 99 04/22/24 05:03 36.7 C 79 14 87/54 L 98 04/22/24 04:27 36.8 C 85 14 83/55 L 98 04/22/24 04:00 30 04/22/24 03:49 61 14 100 30 04/22/24 03:00 36.9 C 79 14 100 04/22/24 03:00 87/52 L 04/22/24 02:03 36.9 C 74 14 85/49 L 100 04/22/24 01:09 36.9 C 78 14 85/48 L 100 30 04/22/24 00:18 37.2 C 74 16 81/42 L 99 30 04/22/24 00:00 76 04/22/24 00:00 30 04/21/24 23:25 82 14 98 30 04/21/24 23:03 37.4 C 80 14 89/52 L 100 30 04/21/24 22:24 37.5 C 75 14 83/48 L 98 30 04/21/24 21:09 71 14 98 30 04/21/24 21:06 37.3 C 71 14 84/54 L 98 30 04/21/24 20:03 37.1 C 70 14 88/56 L 99 30 04/21/24 20:00 Mechanical Vent 04/21/24 20:00 30 Resident Activity Tracking Resident Involvement: Resident Care Provided Care Provided: Adult Hospital Medicine (2) Lung abscess Laterality: left Lung location: lower lobe of lung Pulmonary abscess pneumonia presence: without pneumonia Qualified Code(s): J85.2 - Abscess of lung without pneumonia (7) Sepsis Acute respiratory failure type: with hypoxia Sepsis acute organ dysfunction status: with acute organ dysfunction Sepsis type: sepsis due to unspecified organism Severe sepsis acute organ dysfunction type: acute respiratory failure Severe sepsis shock status: unspecified Qualified Code(s): A41.9 - Sepsis, unspecified organism; R65.20 - Severe sepsis without septic shock; J96.01 - Acute respiratory failure with hypoxia
--- NOTE | 2024-04-22 06:58 | XRay Report ---
XR chest 1V portable CLINICAL HISTORY: intubation TECHNIQUE: Single frontal radiograph of the chest was obtained. Comparison: Comparison is made to chest radiograph 04/18/2024 FINDINGS: Tracheostomy tube is seen. The cardiomediastinal silhouette is stable. Left greater than right lower lung airspace opacities are seen. No evidence of pleural effusion or pneumothorax. IMPRESSION: Bibasilar airspace opacities are stable to slightly more conspicuous than in the prior exam. ACT 112: Negative or not required by law. Electronically signed by: Suhas Acevedo M.D. 04/22/2024 6:57 AM
[2024-04-22] MEDS: ENOXAPARIN 80 MG/0.8 ML SYR SQ SCH (08:49)
[2024-04-22] MEDS: POLYETHYLENE (MIRALAX) 17 GM PACK PEG PRN (09:30)
--- NOTE | 2024-04-22 09:37 | Billing Data ---
Date of Service April 22, 2024 Coding Level of Care Code 79655 SUB INP/OBS CARE MIN
--- NOTE | 2024-04-22 13:49 | Discharge Summary ---
Date of Service April 22, 2024 Admission HPI Per Admitting Provider History obtained from patient, family and records. Limited history from patient secondary to tracheostomy Medical history significant for ventilator dependent respiratory failure secondary to ALS, aspiration risk status post PEG tube placement, chronic systolic heart failure (EF 45 to 50%, TTE 2021), history of PAF, PSVT, JOSE ALFREDO, history of pancreatitis/pseudocyst as per records, recent diagnosis DM 2, chronic anemia (baseline hemoglobin of 13). Recent overnight confinement last March 31 to 2023 for septic shock secondary to cholangitis, hyperglycemic crisis. GI and general surgery recommended tertiary center transfer for possible ERCP. Patient transferred to the [facility] in [place] where he stayed for 1 week. MRCP showed that "stone had passed" as per . ERCP not done. Patient completed antibiotic Rx. Patient started having abdominal pain, nausea, emesis symptoms a few days ago at home. No chest pain, no SOB. Junky cough symptoms. worried about aspiration. Patient brought to the ER for evaluation. Lowest SBP of 80s documented at the ER. Vancomycin, Zosyn, IV heparin administered at the ER. Medical History as above Surgical History : PEG tube placement, tracheostomy, herniorrhaphy, dental surgery, eye surgery Family History : Asthma, IPF Personal/Social history : Non-smoker, no EtOH intake, disabled, lives with Admission Exam Per Admitting Provider GENERAL: Comfortable, no respiratory distress SKIN: Pallor,, warm HEENT: Alopecia, pale palpebral conjunctivae, no ptosis, dry buccal mucosa NECK : Supple, tracheostomy tube in place, no tenderness CHEST : Decreased breath sounds, no wheezes, no tenderness HEART : RRR, no obvious murmurs ABDOMEN: Some distention, epigastric tenderness EXTREMITIES : No LE swelling/tenderness, no other conspicuous deformities noted NEUROLOGIC : Blinks to some questions, no facial asymmetry, gait and stance not assessed Principal Diagnosis Severe sepsis Likely secondary to E. 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 Respiratory: Bilateral mechanical breath sound Cardiovascular: RRR, no murmur, no edema Vessels: no JVD or carotid bruit Abdomen: Soft, nontender Musculoskeletal: no cyanosis or clubbing, extremities motor strength 5/5 Skin: no rashes, warm and dry normal turgor Discharge Data Allergies Allergy/AdvReac Type Severity Reaction Status Date / Time hydromorphone [From Dilaudid] AdvReac makes pt Verified 03/31/24 00:58 retain urine Consultations 04/19/24 00:19 ED Decision to Admit Stat 04/19/24 01:57 Consult Gastroenterology Routine 04/19/24 03:26 Consult Palliative Care Routine 04/19/24 03:30 Consult Filter Cleaner Routine 04/22/24 10:34 Burn CD for patient Stat Ordered Studies 04/18/24 21:15 CT abd pelvis IV con only Stat CT angio chest PE protocol Stat 04/19/24 02:01 MR MRCP Stat Hospital Course (1) Respiratory failure: hx ventilator dependent respiratory failure secondary to ALS status post trache ostomy Patient was brought to the hospital due to abdominal pain, nausea and vomiting. Severe sepsis Likely secondary to E. coli UTI, Pneumonia Patient was brought to the hospital due to abdominal pain, nausea and vomiting. Recent admission from March 31 to April 01 for septic shock secondary to cholangitis; transfer to tertiary care center for possible ERCP Chest x-ray on admission shows cavitary consolidation of inferior segment lingula suggestive of necrotic pneumonia CTA chest confirmed new area of airspace opacity of the lingula of 4 cm cavitary lesion. CTA abdomen and pelvis shows partially occlusive thrombus of the portal vein and splenic vein. Inflammatory stranding surrounding the pancreas concerning for pancreatitis. 1.2 cm fluid collection of the uncinate process consistent with acute peripancreatic fluid collection. Thickening of bladder concerning for cystitis Sputum cultures growing Pseudomonas aeruginosa; galeano sensitive Blood cultures: Negative so far Urine culture: E. coli, pansensitive During the hospitalization, patient was treated with IV Zosyn and Zyvox. QuantiFERON gold was sent which was negative. Given the concern for lung abscess necessitating drainage and patient being at Risk for bronchopleural fistula; he was [facility] management. He was at baseline vent setting at the time of the discharge with FiO2 of 30%. 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 Patient had MRCP which was consistent with inflammation surrounding the pancreas with multiple cystic lesion of the pancreas measuring up to 1.5 cm which was concerning for acute peripancreatic fluid collection. There is mildly dilated common bile duct measuring 7 mm without filling defect. Please note the above document was generated using voice recognition software. It may contain grammatical, syntax or spelling errors. Any formal questions or concerns about the content, text or information contained within the body of this dictation should be directly addressed to the provider for clarification Total Time Total Time Spent Total Time Spent (In Minutes): 45 Total Time Includes: Examination of the Patient, Discharge Planning, Medication Reconciliation, Communication With Other Providers and Other Discharge Plan Discharge Items Patient Disposition: Transfer [facility] Reason For Visit: SEPSIS, VDRF Discharge Diagnosis: Severe sepsis Likely secondary to E. 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 Activity: Resume your previous activity Non-emergency contact: Primary Care Provider Call non-emergency contact if: you have any medication questions and your symptoms worsen Follow-up/Referrals: Mikala Cyr, [employer]LECT[employer] ENGINEER[employer] TECH[employer]OLOGIST [Primary Care Provider] - Diet: Nothing by Mouth Addtl Attending Provider Instructions: Date of Service: April 22, 2024 Current Inpatient Medications Artificial Tears (Artificial Tears) 1 drops OP QID PRN PRN Reason: Dryness Stop: 05/19/24 03:41 Dextrose (Dextrose 50% 50 Ml Syringe) 25 - 50 ml IV UD PRN; Protocol PRN Reason: Hypoglycemia Protocol Stop: 05/19/24 03:29 Enoxaparin Sodium (Enoxaparin 80 Mg/0.8 Ml Syr) 80 mg SQ Q12H MYNOR Stop: 05/22/24 08:29 Last Admin: 04/22/24 08:49 Dose: 80 mg Enteral Nutritional Formula (Peptamen 1.5 Cali 1,000 Ml Bag) 0 ml JT UD MYNOR; Protocol Stop: 05/21/24 10:29 Last Admin: 04/21/24 11:02 Dose: 1,000 ml Famotidine (Famotidine Susp 20 Mg/2.5 Ml Udp) 20 mg NG BID MYNOR Stop: 05/19/24 08:59 Last Admin: 04/21/24 21:17 Dose: 20 mg Glucagon (Glucagon For Inj 1 Mg Vial) 1 mg SQ UD PRN; Protocol PRN Reason: Hypoglycemia Protocol Stop: 05/19/24 03:29 Glucose (Glucose 40% Gel 15 Gm Tube) 15 - 30 gm PO UD PRN; Protocol PRN Reason: Hypoglycemia Protocol Stop: 05/19/24 03:29 Glucose (Glucose 10 Tab/Tube) 4 - 8 tab PO UD PRN; Protocol PRN Reason: Hypoglycemia Treatment Stop: 05/19/24 03:29 Hydromorphone HCl (Hydromorphone Inj 1 Mg/Ml Syringe) 1 mg IV Q3H PRN PRN Reason: Pain Stop: 05/05/24 15:18 Last Admin: 04/22/24 07:44 Dose: 1 mg Hydromorphone HCl (Hydromorphone Inj 0.5 Mg/0.5 Ml Syr) 0.5 mg IV Q3H PRN PRN Reason: Pain Stop: 05/05/24 15:18 Last Admin: 04/22/24 11:35 Dose: 0.5 mg Promethazine HCl 6.25 mg/ (Sodium Chloride) 50.25 mls @ 201 mls/hr IV Q6H PRN PRN Reason: Nausea And Vomiting Stop: 05/19/24 01:56 Piperacillin Sod/Tazobactam (Sod 4.5 gm/ Dextrose) 100 mls @ 25 mls/hr IV Q8H MYNOR; Protocol Stop: 04/26/24 01:59 Last Infusion: 04/22/24 13:10 Dose: Infused Linezolid (Zyvox) 600 mg in 300 mls @ 300 mls/hr IV Q12H MYNOR Stop: 05/03/24 06:59 Last Infusion: 04/22/24 07:45 Dose: Infused Lorazepam 0.5 mg/ Syringe 0.5 mls @ 2 mls/min IV Q6H PRN PRN Reason: myoclonus,spasm,anxiety Stop: 05/20/24 13:03 Last Admin: 04/21/24 18:26 Dose: 2 mls/min Insulin Aspart (Insulin Aspart Per Unit Charge) 0 units SC Q6 MYNOR Stop: 05/19/24 01:59 Last Admin: 04/22/24 13:39 Dose: Not Given Insulin Glargine (Lantus Per Unit Charge) 5 units SQ DAILY [facility] Stop: 05/19/24 08:59 Last Admin: 04/22/24 07:44 Dose: 5 units Lactobacillus Acidophilus (Lactobacillus Acidophilus 1 Gm Pack) 1 packet PO DAILY [facility] Stop: 05/19/24 08:59 Last Admin: 04/22/24 07:41 Dose: 1 packet Midodrine (Midodrine Hcl 2.5 Mg Tab) 5 mg PO TID@0800,1200,1700 [facility] Stop: 05/19/24 07:59 Last Admin: 04/22/24 13:09 Dose: 5 mg Miscellaneous (Order Awaiting Action: Ciclopirox [Ciclodan] 0.77 % Cream) 1 each N/A QS [facility] Stop: 05/19/24 07:59 Last Admin: 04/22/24 13:42 Dose: Not Given Miscellaneous (Order Awaiting Action: Senna Crozier Extract [Senna] 176 Mg/5 Ml Syrup) 1 each N/A QS [facility] Stop: 05/19/24 07:59 Last Admin: 04/22/24 13:41 Dose: Not Given Miscellaneous (Carbohydrates For Hypoglycemia ) 15 - 30 gm PO UD PRN PRN Reason: Hypoglycemia Protocol Stop: 05/19/24 03:29 Miscellaneous (Icu Electrolyte Replacement Protocol) 1 each N/A BID@06,18 [facility]; Protocol Stop: 04/28/24 17:59 Last Admin: 04/22/24 06:21 Dose: 1 each Polyethylene Glycol (Polyethylene (Miralax) 17 Gm Pack) 17 gm PEG DAILY PRN PRN Reason: Constipation Stop: 05/19/24 03:29 Last Admin: 04/22/24 09:30 Dose: 17 gm Sterile Water (Tube Feeding Water Flush) 125 ml JT Q4H [facility] Stop: 05/21/24 10:29 Last Admin: 04/22/24 13:09 Dose: 125 ml Pending Studies at Discharge: No Stand-Alone Forms: My [facility] Skilled Items Patient informed of condition?: No DNR: No Discharge Level of Care: Other Communicable Disease: No Discharge Prognosis: Stable Lines: Peripheral IV Urinary Catheter: Yes Medications and DC Order Prescriptions: Continued acetaminophen [Children's Acetaminophen] 160 mg/5 mL Liquid 640 mg feeding tube Q6 PRN (Reason: Pain, Mild) Rx Instructions: administer 20 ml into j=tube zinc oxide 20 % Ointment 1 applic TOPICAL TID PRN (Reason: SORES) Rx Instructions: apply to buttocks for bed sores nystatin 100,000 unit/gram Powder 1 applic TOPICAL BID Rx Instructions: apply to groin atropine 1 % Drops 1 drp sublingual QID PRN (Reason: increased secretions) famotidine 40 mg/5 mL (8 mg/mL) Suspension 20 mg feeding tube BID Rx Instructions: use j-tube midodrine 5 mg Tablet 5 mg feeding tube TID Rx Instructions: administer into j-tub morning,noon and bedtime polyethylene glycol 3350 [Miralax] 17 gram/dose Powder 17 g feeding tube DAILY PRN (Reason: Constipation) Rx Instructions: dissolve into 8 oz of water and administer into j-tube A,D-aloe gplf-yvwloyyerb-a.pet Ointment 1 ea TOPICAL BID PRN (Reason: scrotal area) carboxymethylcellulose sodium 0.5 % Drops 1 drp OPB UD PRN (Reason: Dry Eye(S)) Artificial Tears (PF) 0.1-0.3 % Dropperette 1 drp OPB QID PRN (Reason: Dry Eyes) morphine 10 mg/5 mL Solution 5 mg feeding tube Q2H PRN (Reason: Pain) Acidophilus Capsule 2 cap feeding tube DAILY hydrocortisone 2.5 % ointment 1 applic TOPICAL BID PRN (Reason: Itching) Rx Instructions: scrotal area Remedy Phytoplex Z-Guard 57 % Paste 1 ea TOPICAL BID PRN (Reason: protectant) Kuli Kuli 1.4 Liquid Vanilla 1 ea G-tube 5XD ciclopirox [Ciclodan] 0.77 % Cream 1 applic topical 3XWK Rx Instructions: tues/thurs/sat ibuprofen 100 mg/5 mL Suspension 200 mg feeding tube TID PRN (Reason: Fever Or Pain) senna leaf extract [senna] 176 mg/5 mL syrup 15 ml feeding tube 3XWK Rx Instructions: tues/thurs/sat coenzyme Q10 100 mg/5 mL Syrup 10 mg feeding tube DAILY Discharge Orders: Discharge Order (Routine); Ordered 04/22/24 Ordered By: Jesus Cordon Admission Data Admit Date/Time: 04/19/24 01:56 Attending Provider: Jesus Cordon Admit Provider: Rony Hernandez Primary Care Provider: Mikala Cyr Other Providers: Rony Hernandez; Devin Alfaro; Diana Vogt; Corby Hernandez; [facility]; [facility]; [facility] Other Interventions: Discharge Summary Assessment (RN) Last Done: 04/22/24 14:11
== END 2024-04-22 18:10 | DRG 871 ==
LOC: ED 19:10 → SUATTDRO 04-19 01:56 → 1E 04-19 01:56
DX: E11.9 Type 2 diabetes mellitus without complications; K86.1 Other chronic pancreatitis; Z93.1 Gastrostomy status; J85.0 Gangrene and necrosis of lung; I81 Portal vein thrombosis; Z99.11 Dependence on respirator [ventilator] status; Z79.899 Other long term (current) drug therapy; K83.09 Other cholangitis; E87.3 Alkalosis; G12.21 Amyotrophic lateral sclerosis; I82.890 Acute embolism and thrombosis of other specified veins; Z86.19 Personal history of other infectious and parasitic diseases; Z88.5 Allergy status to narcotic agent; R65.21 Severe sepsis with septic shock; J85.2 Abscess of lung without pneumonia; G47.33 Obstructive sleep apnea (adult) (pediatric); I48.0 Paroxysmal atrial fibrillation; B96.5 Pseudomonas (aeruginosa) (mallei) (pseudomallei) as the cause of diseases classified elsewhere; Z74.01 Bed confinement status; Z93.0 Tracheostomy status; K85.90 Acute pancreatitis without necrosis or infection, unspecified; A41.51 Sepsis due to Escherichia coli [E. coli]; Z51.5 Encounter for palliative care; I50.22 Chronic systolic (congestive) heart failure; J96.21 Acute and chronic respiratory failure with hypoxia

== ENCOUNTER 2024-05-05 15:13 | Inpatient (IN) ==
[2024-05-05 16:20] LABS: Anion Gap 14 (3-11); Blood Urea Nitrogen 53 mg/dl (6-23); Carbon Dioxide 21 mmol/L (21-32); Chloride 105 mmol/L (98-107); Est GFR (African American) > 150.0 ml/min; Potassium 2.9 mmol/L (3.5-5.1); Sodium 140 mmol/L (136-145)
[2024-05-05 16:21] LABS: Alanine Aminotransferase 9 U/L (7-52); Albumin Globulin Ratio 0.5 (0.9-2); Albumin Level 2.4 gm/dl (3.4-5.0); Alkaline Phosphatase 316 U/L (34-104); Aspartate Aminotransferase 26 U/L (13-39); Bilirubin,Total 0.6 mg/dl (0.2-1.0); Calcium 7.4 mg/dl (8.6-10.3); Creatinine Clr Calc Pharmacy 560.5 ml/min; Est GFR (Non-African American) > 150.0 ml/min; Globulin 4.8 gm/dl (2.5-4.0); Glucose 101 mg/dl (70-99(Fasting)); Magnesium 2.4 mg/dl (1.7-2.4); Total Protein 7.2 gm/dl (6.0-8.3)
[2024-05-05] MEDS: SODIUM CHLORIDE 0.9% 1,000 ML IV ONE ×2 (16:23→17:33)
[2024-05-05 16:28] LABS: INR 1.6 (0.9-1.1); Partial Thromboplastin Ratio 1.6; Partial Thromboplastin Time 43 Seconds (21-31); Prothrombin Time 16.2 Seconds (9.0-12.0)
[2024-05-05 16:31] LABS: ALC (manual) 1.44 K/uL (1.2-3.4); ANC (manual) 33.76 K/uL (1.4-6.5); Hemoglobin 10.7 g/dl (14.0-18.0); Lymphocytes # (manual) 1.44 K/uL (1.2-3.4); Lymphocytes % (manual) 4 %; Mean Corpuscular Hemoglobin 28.2 pg (25.0-34.0); Mean Corpuscular Hgb Conc 31.5 g/dL (32.0-36.0); Mean Corpuscular Volume 89.7 fL (80.0-100.0); Mean Platelet Volume 10.3 fL (9.4-12.4); Monocytes # (manual) 0.72 K/uL (0.11-0.59); Monocytes % (manual) 2 %; Neutrophils # (manual) 33.76 K/uL (1.40-6.50); Neutrophils % (manual) 94 %; Nucleated RBC % (auto) 0.3 %; Platelet Count 647 K/uL (130-400); Polychromasia 1+; RDW Standard Deviation 69.6 fL (36.4-46.3); Red Blood Count 3.79 M/uL (4.70-6.10); White Blood Count 35.92 K/ul (4.8-10.8)
[2024-05-05] MEDS: CALCIUM GLUCONATE 1,000 MG/60 ML BAG IV STA (16:38)
--- NOTE | 2024-05-05 16:45 | Emergency Department Note ---
Impression & Plan Sepsis, ALS (amyotrophic lateral sclerosis), Ventilator dependent, Leukocytosis, Cellulitis, Hypocalcemia, Hypokalemia ED Provider Note NAME: YI ROBB AGE: 38 SEX: M : 1985 ARRIVES VIA: Ambulance INFORMANT: [Patient][family] ED PROVIDER(S): [Darvin Ibrahim MD] CHIEF COMPLAINT: Possible sepsis HISTORY OF PRESENT ILLNESS: The patient is a 38-year-old male who has ALS. He is vent dependent. He is currently on IV antibiotics and oral antibiotics for what the believes is pneumonia. He was discharged 5 days ago from the [facility] in [place]. As per the , the patient's heart rate has increased and outpatient laboratory work suggested worsening of his infection. The patient does have a feeding tube. The tube has 2 ports, 1 to help with gastric secretions, 1 for feeding. The patient does have a large sacral ulcer which is being followed. As per the , there appears to be more erythema than last week. No fever reported. The patient is suctioned on a regular basis and there may have been some more bloody like secretions in the sputum the last few days. PMHx/PSHx/Social Hx: See Below PHYSICAL EXAM: GENERAL: Patient is in no acute distress. HEENT: No acute trauma, normocephalic atraumatic, mucous membranes moist, no nasal congestion. NECK: No stridor, no adenopathy, tracheostomy in place. Ventilator in place LUNGS: Clear to auscultation bilaterally when listening anterior, no wheeze, no rhonchi, breath sounds equal. HEART: Without murmurs gallops or rubs. Mildly tachycardic, regular rhythm. ABDOMEN: Soft, nontender, no peritonitis. Feeding tube noted in the left upper quadrant. EXTREMITIES: No cyanosis, no deformities. NEUROLOGIC: Awake, no movement of the upper or lower extremities. SKIN: No jaundice, no diaphoresis. DIFFERENTIAL DIAGNOSIS: Bacteremia or sepsis, worsening pneumonia, UTI, cellulitis, infected sacral ulcer, among others. EMERGENCY DEPARTMENT PROCEDURES: MEDICAL DECISION MAKING: There is a significant leukocytosis at 35,000, this is consistent with infection. The patient is anemic however, his hemoglobin is improved compared to recent testing. Platelet count somewhat elevated at 647. INR was elevated at 1.6. Potassium is low at 2.9. No renal failure. Calcium is low at 7.4. Lactic acid level was not elevated making severe sepsis less likely. Procalcitonin level was elevated consistent with a bacterial source for his infection. Alk phos was elevated, the remaining liver enzymes were unremarkable. ECG showed a sinus tachycardia, no obvious ischemia. Cardiac enzyme testing x 1 was not consistent with acute cardiac injury. Urinalysis showed some ketones, no findings of infection. Respiratory bio fire was negative. Chest x-ray did not show any new focal infiltrate. The patient did have a large area of sacral skin breakdown and surrounding erythema. On exam, the patient was tachycardic. His blood pressure was in the 80s systolic however, this appears to be relatively baseline looking back in his recent hospitalization. The patient was aggressively managed. He did meet criteria for sepsis. He was given 2 L of IV saline. He was given IV cefepime as antibiotic coverage. When I looked back at previous cultures, cefepime seemed a very reasonable choice. Patient was given IV potassium, he received IV Dilaudid for pain as needed. He was given IV calcium. The patient's blood pressure has improved, he is doing well at the present time. He remains on the ventilator which is his baseline. I did speak with the ICU, they have accepted the patient to their floor. I did speak with the patient and his . I spoke with case management, the on-call hospitalist was consulted. At this point, I suspect the source for his sepsis is his sacral skin breakdown and cellulitis. His lungs appear at baseline compared to recent imaging, his urine does not appear to be infected by today's urinalysis. Prior/Outside records/notes reviewed: Discharge summary note from 04/22/2024 describing his presentation and need for transfer to the [facility] in [place]. ECG per my interpretation: Indication was possible sepsis. The ECG shows a sinus tachycardia with a rate of 108. There is diffuse nonspecific ST change. There is no acute ST elevation. No PVCs, the QTc is long at 554. Continuous Cardiac Monitoring per my interpretation: An order was placed for continuous cardiac monitoring. The monitor shows a rate of 110 with sinus tachycardia. Imaging/x-ray results per my interpretation: Chest x-ray appears similar to previous films, no new pneumonia or infiltrate seen. The previous infiltrates were still present. Chronic Medical/Social conditions affecting care: ALS, ventilator dependent. Care/Management discussed with: ICU-Dr. Fernandes. Case management and the on-call hospitalist. Level of care consideration(s): After review of the information above and other included data: --I believe the patient requires escalation of care to admission Critical Care Note: I have personally spent 56 minutes of critical care time in the direct management of this patient. This includes bedside care, interpretation of diagnostic studies, and testing, discussion with consultants, patient, and family members, and other required patient management activities. This 56 minutes is in excess of all separately billable procedures. DISPOSITION: Admission Past Med/Surg History Problem List (Updated 05/05/24 @ 18:30 by Darvin Ibrahim MD) Hypokalemia (Acute) Hypocalcemia (Acute) Cellulitis (Acute) Leukocytosis (Acute) Ventilator dependent (Acute) ALS (amyotrophic lateral sclerosis) (Acute) Sepsis (Acute) Palliative care by specialist Advanced care planning/counseling discussion Dyspnea and respiratory abnormalities Weakness generalized Muscle spasticity Generalized pain Hepatic vein thrombosis Lung abscess E. coli UTI Respiratory failure Pancreatitis (Acute) Pneumonia (Acute) Acute UTI (Acute) Dependent on ventilator (Acute) Sepsis (Acute) Dilated bile duct Cholangitis Acute dehydration (Acute) DKA (diabetic ketoacidosis) (Acute) Sepsis (Acute) UTI (urinary tract infection) Elevated liver enzymes Septic shock HHNC (hyperglycemic hyperosmolar nonketotic coma) Encounter for pre-operative examination Ascites Ventilator dependence (Acute) Gastritis (Acute) DVT prophylaxis ALS (amyotrophic lateral sclerosis) (Acute) History of tracheostomy (Acute) currently in place; last changed 10/31/22 with a new Shley tracheostomy #8 tube Chronic respiratory failure (Acute) CURRENT TRACH 8DCT INTACT>8.5 WITH HUMIDIFICATION *REQUIRED SUCTIONED EVERY 20 MINUTES ON AVERAGE Atrial fibrillation with RVR hx of; per Dr. Bone's note:" Telemetry reveals that on 12/18/2021 at 22:12 patient reverted from sinus tachycardia at about 100 bpm to atrial fibrillation in the 150s. He subsequently converted to sinus rhythm while on an amiodarone infusion at 23:14."--no issues since Medical History Pressure ulcer CLOSED ON BUTTOCK Tracheostomy in place 12/2021 ORIGINALLY PLACED (LAST CHANGED 10/2022) Hypotension NO CARDS Hx of pancreatitis Pseudocyst of pancreas Left ventricular systolic dysfunction Uses feeding tube G-J TUBE USED FOR MEDS AND FEEDINGS Slow gastric motility D/T ALS Dry eye syndrome Cardiac murmur AN Sleep apnea TRILEGY MACHINE WITH 2.5L (WEARS CONT) ALS (amyotrophic lateral sclerosis) DX FEBRUARY 2014>CAN NOT MOVE Surgical History History of esophagogastroduodenoscopy (EGD) Hx of LASIK PRK S/P percutaneous endoscopic gastrostomy (PEG) tube placement History of tooth extraction History of herniorrhaphy Family History Mother Family history of diabetes mellitus Other No family history of adverse response to anesthesia Social History Smoking Status: Never smoker Second Hand Exposure: No; Do You Dip or Chew Tobacco: No; Hx Alcohol Use: No Hx Substance Use: No Preferred Language: Persian Communication Ability: Impaired Communication Ability Comment: pt can not talk--uses electronic table to communicate; signs consents Body Masker Required: No Beliefs That Will Affect Care: None marital status: Current Living Situation: Spouse Current Living Situation Comment: has 2 personal aides to help in home How many Children do You have: 3 Feels Safe at Home: Yes Assistive Devices: Mechanical Lift, Nebulizer and Other Allergies Allergies Allergy/AdvReac Type Severity Reaction Status Date / Time hydromorphone [From Dilaudid] AdvReac Intermediate makes pt Verified 05/05/24 17:06 retain urine--IF [facility] IN PLACE PT WILL TAKE MED Home Meds Home Medications Medication Instructions Recorded Confirmed acetaminophen 160 mg/5 mL oral 640 mg feeding tube Q6 PRN Pain, 05/07/22 05/05/24 liquid (Children's Acetaminophen) Mild atropine 1 % eye drops 1 drp sublingual QID PRN increased 05/07/22 05/05/24 secretions nystatin 100,000 unit/gram topical 1 applic topical BID 05/07/22 05/05/24 powder zinc oxide 20 % topical ointment 1 applic topical TID PRN SORES 05/07/22 05/05/24 A,D-aloe qhkx-kbwjeaptch-i.pet 1 ea topical BID PRN scrotal area 06/10/22 05/05/24 topical ointment carboxymethylcellulose sodium 0.5 1 drp OPB UD PRN Dry Eye(S) 06/10/22 05/05/24 % eye drops dextran 70-hypromellose (PF) 0.1 1 drp OPB QID PRN Dry Eyes 06/10/22 05/05/24 %-0.3 % eye drops in a dropperette (Artificial Tears (PF)) famotidine 40 mg/5 mL (8 mg/mL) 20 mg feeding tube BID 06/10/22 05/05/24 oral suspension midodrine 5 mg tablet 5 mg feeding tube TID 06/10/22 05/05/24 polyethylene glycol 3350 17 17 g feeding tube DAILY PRN 06/10/22 05/05/24 gram/dose oral powder (Miralax) Constipation morphine 10 mg/5 mL oral solution 5 mg feeding tube Q2H PRN Pain 10/30/22 05/05/24 [place] 1.4 Liquid Vanilla 1 ea G-tube 6XD 04/23/23 05/05/24 hydrocortisone 2.5 % topical 1 applic topical BID PRN Itching 04/23/23 05/05/24 ointment white petrolatum 57 % topical 1 ea topical BID PRN protectant 04/23/23 05/05/24 paste (Remedy Phytoplex Z-Guard) ciclopirox 0.77 % topical cream 1 applic topical 3XWK 03/31/24 05/05/24 (Ciclodan) coenzyme Q10 100 mg/5 mL oral syrup 10 mg feeding tube DAILY 03/31/24 05/05/24 ibuprofen 100 mg/5 mL oral 200 mg feeding tube TID PRN Fever 03/31/24 05/05/24 suspension Or Pain senna leaf extract 176 mg/5 mL 15 ml feeding tube BID 03/31/24 05/05/24 oral syrup (senna) Lactobacillus acidophilus 2 tab feeding tube DAILY 05/05/24 05/05/24 bisacodyl 10 mg rectal suppository 10 mg MD DAILY PRN Constipation 05/05/24 05/05/24 sodium chloride 0.9 % for 3 ml inhalation QID PRN Cough 05/05/24 05/05/24 nebulization aciinp-mlyzwpiac-YpNd eye drops 2 drp OPB DAILY 05/05/24 05/05/24 Results & Data (ED) Vital Signs Vital Signs - 24 hr 05/05/24 15:25 05/05/24 15:27 05/05/24 15:27 Temperature Temperature Source Pulse Rate 110 H 110 H Pulse Rate from SpO2 Sensor 111 H Respiratory Rate 20 20 Respiratory Effort / Characteristics Non-Labored Respiratory Depth Normal Blood Pressure 85/69 L 85/69 L Blood Pressure Mean 76 74 Pulse Oximetry 100 100 Oxygen Delivery Method Mechanical Vent Mechanical Vent Sepsis Recent Fever Within 48 Hours No Sepsis New/Unexplained Change in Mental Status N/A Sepsis Action Taken by Nursing No Action Required 05/05/24 15:30 05/05/24 15:32 05/05/24 15:41 Temperature 35.9 C L 36.9 C Temperature Source Rectal Rectal Pulse Rate 109 H Pulse Rate from SpO2 Sensor 109 H Respiratory Rate 19 Respiratory Effort / Characteristics Respiratory Depth Blood Pressure Blood Pressure Mean Pulse Oximetry 100 Oxygen Delivery Method Mechanical Vent Sepsis Recent Fever Within 48 Hours Sepsis New/Unexplained Change in Mental Status Sepsis Action Taken by Nursing 05/05/24 15:45 05/05/24 15:49 05/05/24 16:00 Temperature Temperature Source Pulse Rate 109 H 112 H Pulse Rate from SpO2 Sensor 109 H 112 H Respiratory Rate 16 18 Respiratory Effort / Characteristics Respiratory Depth Blood Pressure 91/70 L Blood Pressure Mean 81 Pulse Oximetry 100 100 Oxygen Delivery Method Mechanical Vent Mechanical Vent Sepsis Recent Fever Within 48 Hours Sepsis New/Unexplained Change in Mental Status Sepsis Action Taken by Nursing 05/05/24 16:00 05/05/24 16:15 05/05/24 16:15 Temperature Temperature Source Pulse Rate 114 H Pulse Rate from SpO2 Sensor 114 H Respiratory Rate 19 Respiratory Effort / Characteristics Respiratory Depth Blood Pressure 96/68 L 89/72 L Blood Pressure Mean 72 78 Pulse Oximetry 100 Oxygen Delivery Method Mechanical Vent Sepsis Recent Fever Within 48 Hours Sepsis New/Unexplained Change in Mental Status Sepsis Action Taken by Nursing 05/05/24 16:21 05/05/24 16:25 05/05/24 16:30 Temperature Temperature Source Pulse Rate 115 H 110 H Pulse Rate from SpO2 Sensor 115 H Respiratory Rate 19 Respiratory Effort / Characteristics Respiratory Depth Blood Pressure Blood Pressure Mean Pulse Oximetry 100 100 Oxygen Delivery Method Mechanical Vent Mechanical Vent Sepsis Recent Fever Within 48 Hours Sepsis New/Unexplained Change in Mental Status Sepsis Action Taken by Nursing 05/05/24 16:30 05/05/24 16:33 05/05/24 16:45 Temperature Temperature Source Pulse Rate 109 H Pulse Rate from SpO2 Sensor 109 H Respiratory Rate 17 Respiratory Effort / Characteristics Respiratory Depth Blood Pressure 99/75 L 107/86 Blood Pressure Mean 81 92 Pulse Oximetry 100 Oxygen Delivery Method Mechanical Vent Sepsis Recent Fever Within 48 Hours Sepsis New/Unexplained Change in Mental Status Sepsis Action Taken by Nursing 05/05/24 16:45 05/05/24 17:00 05/05/24 17:00 Temperature Temperature Source Pulse Rate 106 H 103 H Pulse Rate from SpO2 Sensor 106 H 102 H Respiratory Rate 18 17 Respiratory Effort / Characteristics Respiratory Depth Blood Pressure 130/92 Blood Pressure Mean 102 Pulse Oximetry 100 100 Oxygen Delivery Method Mechanical Vent Mechanical Vent Sepsis Recent Fever Within 48 Hours Sepsis New/Unexplained Change in Mental Status Sepsis Action Taken by Nursing 05/05/24 17:06 05/05/24 17:15 05/05/24 17:18 Temperature Temperature Source Pulse Rate 106 H 111 H Pulse Rate from SpO2 Sensor 106 H 112 H Respiratory Rate 16 18 Respiratory Effort / Characteristics Respiratory Depth Blood Pressure 122/87 Blood Pressure Mean 96 Pulse Oximetry 100 100 Oxygen Delivery Method Mechanical Vent Mechanical Vent Sepsis Recent Fever Within 48 Hours Sepsis New/Unexplained Change in Mental Status Sepsis Action Taken by Nursing 05/05/24 17:30 05/05/24 17:30 05/05/24 17:30 Temperature Temperature Source Pulse Rate 111 H Pulse Rate from SpO2 Sensor 111 H Respiratory Rate 21 Respiratory Effort / Characteristics Respiratory Depth Blood Pressure 109/81 109/81 Blood Pressure Mean 99 99 Pulse Oximetry 100 Oxygen Delivery Method Mechanical Vent Sepsis Recent Fever Within 48 Hours Sepsis New/Unexplained Change in Mental Status Sepsis Action Taken by Nursing 05/05/24 17:51 05/05/24 18:06 Temperature Temperature Source Pulse Rate 117 H 116 H Pulse Rate from SpO2 Sensor 117 H 116 H Respiratory Rate 20 17 Respiratory Effort / Characteristics Respiratory Depth Blood Pressure Blood Pressure Mean Pulse Oximetry 100 100 Oxygen Delivery Method Mechanical Vent Mechanical Vent Sepsis Recent Fever Within 48 Hours Sepsis New/Unexplained Change in Mental Status Sepsis Action Taken by [facility] Medications Current Medication List: was personally reviewed by me Laboratory Data Attestation: I reviewed the patient's lab results. 05/05/24 15:30 05/05/24 15:30 Lab Results 05/05/24 05/05/24 05/05/24 Range/Units 15:24 15:30 16:17 WBC 35.92 H* (4.8-10.8) K/ul RBC 3.79 L (4.70-6.10) M/uL Hgb 10.7 L (14.0-18.0) g/dl Hct 34.0 L (42.0-52.0) % MCV 89.7 (80.0-100.0) fL MCH 28.2 (25.0-34.0) pg MCHC 31.5 L (32.0-36.0) g/dL RDW Std Deviation 69.6 H (36.4-46.3) fL RDW Coeff of Aissatou 23.0 H (11.5-14.5) % Plt Count 647 H (130-400) K/uL MPV 10.3 (9.4-12.4) fL Absolute Nucleated RBC 0.10 (0.00-0.12) K/uL Nucleated RBC % (auto) 0.3 % Neutrophils % (Manual) 94 % Lymphocytes % (Manual) 4 % Monocytes % (Manual) 2 % Neutrophils # (Manual) 33.76 H (1.40-6.50) K/uL Total Absolute Neuts 33.76 H (1.4-6.5) K/uL Lymphocytes # (Manual) 1.44 (1.2-3.4) K/uL Total Abs Lymphocytes 1.44 (1.2-3.4) K/uL Monocytes # (Manual) 0.72 H (0.11-0.59) K/uL Polychromasia 1+ PT 16.2 H (9.0-12.0) Seconds INR 1.6 H (0.9-1.1) APTT 43 H (21-31) Seconds PTT Ratio 1.6 Sodium 140 (136-145) mmol/L Potassium 2.9 L (3.5-5.1) mmol/L Chloride 105 (98-107) mmol/L Carbon Dioxide 21 (21-32) mmol/L Anion Gap 14 H (3-11) BUN 53 H (6-23) mg/dl Creatinine < 0.20 L (0.6-1.4) mg/dl Est Cr Clr Drug Dosing 560.5 ml/min Est GFR ( Amer) > 150.0 ml/min Est GFR (Non-Af Amer) > 150.0 ml/min BUN/Creatinine Ratio TNP Glucose 101 H (70-99(Fasting)) mg/dl POC Glucose 103 H (70-99) mg/dl Lactate 2.0 (0.4-2.0) mmol/L Calcium 7.4 L (8.6-10.3) mg/dl Magnesium 2.4 (1.7-2.4) mg/dl Total Bilirubin 0.6 (0.2-1.0) mg/dl AST 26 (13-39) U/L ALT 9 (7-52) U/L Alkaline Phosphatase 316 H (34-104) U/L Troponin I High Sens 11.0 (0-20) pg/ml Total Protein 7.2 (6.0-8.3) gm/dl Albumin 2.4 L (3.4-5.0) gm/dl Globulin 4.8 H (2.5-4.0) gm/dl Albumin/Globulin Ratio 0.5 L (0.9-2) Procalcitonin 0.86 H (0-0.5) ng/ml Urine Color Dark Yellow Urine Appearance Clear (Clear) Urine pH 6.5 (4.5-7.5) Ur Specific [place] 1.025 (1.000-1.030) Urine Protein 1+ H (Negative) Urine Glucose (UA) Negative (Negative) Urine Ketones Trace H (Negative) Urine Blood Negative (Negative) Urine Nitrite Negative (Negative) Urine Bilirubin Negative (Negative) Urine Urobilinogen Negative (Negative) Ur Leukocyte Esterase Negative (Negative) Urine WBC (Auto) 0-5 (0-5) /hpf Urine RBC (Auto) 0-2 (0-2) /hpf U Hyaline Cast (Auto) 3-5 H (0-2) /lpf U Epithel Cells (Auto) 0-2 (0-2) /hpf Urine Bacteria (Auto) None Seen (None Seen) Urine Sperm Present A (None Prsent) Adenovirus (PCR) (NotDetected) B. pertussis DNA (PCR) (NotDetected) B.parapertussis DNA PCR (NotDetected) C. pneumoniae DNA (PCR) (NotDetected) Coronavirus OC43 (PCR) (NotDetected) Coronavirus HKU1 (PCR) (NotDetected) Coronavirus 229E (PCR) (NotDetected) SARS-CoV-2 (PCR) (NotDetected) Coronavirus NL63 (PCR) (NotDetected) Human Metapneumovir PCR (NotDetected) Influenza Type A (PCR) (NotDetected) Influenza Type B (PCR) (NotDetected) M. pneumoniae (PCR) (NotDetected) Parainfluenza 1 (PCR) (NotDetected) Parainfluenza 2 (PCR) (NotDetected) Parainfluenza 3 (PCR) (NotDetected) Parainfluenza 4 (PCR) (NotDetected) RSV (PCR) (NotDetected) Entero/Rhino (PCR) (NotDetected) 05/05/24 Range/Units 16:30 WBC (4.8-10.8) K/ul RBC (4.70-6.10) M/uL Hgb (14.0-18.0) g/dl Hct (42.0-52.0) % MCV (80.0-100.0) fL MCH (25.0-34.0) pg MCHC (32.0-36.0) g/dL RDW Std Deviation (36.4-46.3) fL RDW Coeff of Aissatou (11.5-14.5) % Plt Count (130-400) K/uL MPV (9.4-12.4) fL Absolute Nucleated RBC (0.00-0.12) K/uL Nucleated RBC % (auto) % Neutrophils % (Manual) % Lymphocytes % (Manual) % Monocytes % (Manual) % Neutrophils # (Manual) (1.40-6.50) K/uL Total Absolute Neuts (1.4-6.5) K/uL Lymphocytes # (Manual) (1.2-3.4) K/uL Total Abs Lymphocytes (1.2-3.4) K/uL Monocytes # (Manual) (0.11-0.59) K/uL Polychromasia PT (9.0-12.0) Seconds INR (0.9-1.1) APTT (21-31) Seconds PTT Ratio Sodium (136-145) mmol/L Potassium (3.5-5.1) mmol/L Chloride (98-107) mmol/L Carbon Dioxide (21-32) mmol/L Anion Gap (3-11) BUN (6-23) mg/dl Creatinine (0.6-1.4) mg/dl Est Cr Clr Drug Dosing ml/min Est GFR ( Amer) ml/min Est GFR (Non-Af Amer) ml/min BUN/Creatinine Ratio Glucose (70-99(Fasting)) mg/dl POC Glucose (70-99) mg/dl Lactate (0.4-2.0) mmol/L Calcium (8.6-10.3) mg/dl Magnesium (1.7-2.4) mg/dl Total Bilirubin (0.2-1.0) mg/dl AST (13-39) U/L ALT (7-52) U/L Alkaline Phosphatase (34-104) U/L Troponin I High Sens (0-20) pg/ml Total Protein (6.0-8.3) gm/dl Albumin (3.4-5.0) gm/dl Globulin (2.5-4.0) gm/dl Albumin/Globulin Ratio (0.9-2) Procalcitonin (0-0.5) ng/ml Urine Color Urine Appearance (Clear) Urine pH (4.5-7.5) Ur Specific [place] (1.000-1.030) Urine Protein (Negative) Urine Glucose (UA) (Negative) Urine Ketones (Negative) Urine Blood (Negative) Urine Nitrite (Negative) Urine Bilirubin (Negative) Urine Urobilinogen (Negative) Ur Leukocyte Esterase (Negative) Urine WBC (Auto) (0-5) /hpf Urine RBC (Auto) (0-2) /hpf U Hyaline Cast (Auto) (0-2) /lpf U Epithel Cells (Auto) (0-2) /hpf Urine Bacteria (Auto) (None Seen) Urine Sperm (None Prsent) Adenovirus (PCR) Not Detected (NotDetected) B. pertussis DNA (PCR) Not Detected (NotDetected) B.parapertussis DNA PCR Not Detected (NotDetected) C. pneumoniae DNA (PCR) Not Detected (NotDetected) Coronavirus OC43 (PCR) Not Detected (NotDetected) Coronavirus HKU1 (PCR) Not Detected (NotDetected) Coronavirus 229E (PCR) Not Detected (NotDetected) SARS-CoV-2 (PCR) Not Detected (NotDetected) Coronavirus NL63 (PCR) Not Detected (NotDetected) Human Metapneumovir PCR Not Detected (NotDetected) Influenza Type A (PCR) Not Detected (NotDetected) Influenza Type B (PCR) Not Detected (NotDetected) M. pneumoniae (PCR) Not Detected (NotDetected) Parainfluenza 1 (PCR) Not Detected (NotDetected) Parainfluenza 2 (PCR) Not Detected (NotDetected) Parainfluenza 3 (PCR) Not Detected (NotDetected) Parainfluenza 4 (PCR) Not Detected (NotDetected) RSV (PCR) Not Detected (NotDetected) Entero/Rhino (PCR) Not Detected (NotDetected) Administered Medications Hydromorphone HCl (Hydromorphone Inj 0.5 Mg/0.5 Ml Syr) 0.5 mg IV Q15M PRN PRN Reason: Pain Stop: 05/19/24 17:10 Last Admin: 05/05/24 17:32 Dose: 0.5 mg Documented By: EWELINA Discontinued Medications Sodium Chloride (Nss) 1,000 mls @ 999 mls/hr IV .Q1H1M ONE Stop: 05/05/24 16:56 Last Infusion: 05/05/24 17:29 Dose: Infused Documented By: Admin: 05/05/24 16:23 Dose: 999 mls/hr Documented By: EWELINA Potassium Chloride (K Jose Juan / Wtr) 10 meq in 100 mls @ 100 mls/hr IV ONE ONE Stop: 05/05/24 17:28 Last Admin: 05/05/24 17:28 Dose: 100 mls/hr Documented By: EWELINA Calcium Gluconate () 1,000 mg in 60 mls @ 240 mls/hr IV NOW STA Stop: 05/05/24 16:43 Last Infusion: 05/05/24 17:29 Dose: Infused Documented By: Admin: 05/05/24 16:38 Dose: 240 mls/hr Documented By: CARRIE Cefepime HCl (Maxipime) 2,000 mg in 20 mls @ 5 mls/min IV NOW STA; Protocol Stop: 05/05/24 17:13 Last Admin: 05/05/24 17:32 Dose: 5 mls/min Documented By: EWELINA Sodium Chloride (Nss) 1,000 mls @ 999 mls/hr IV .Q1H1M ONE Stop: 05/05/24 18:11 Last Admin: 05/05/24 17:33 Dose: 999 mls/hr Documented By: EWELINA Imaging Data Radiologist's Impression: Chest X-Ray 05/05/24 16:28 XR chest 1V portable CLINICAL HISTORY: vent, poss pneumonia COMPARISON STUDY: Chest CT April 18, 2024. Chest radiograph April 22, 2024. FINDINGS: A left PICC is in place. There is no pneumothorax. Small bilateral pleural effusions are present. Cavitary 5.8 cm lingular opacity persists. This was shown on prior chest radiograph and chest CT. There is mild right basilar opacity. No evidence for pulmonary edema. Cardiomediastinal silhouette is stable. IMPRESSION: 1. No significant change in a 5.8 cm cavitary lingular opacity. This favors cavitary pneumonia. Radiographic follow-up to ensure resolution is recommended. 2. Small bilateral pleural effusions. No change in mild right basilar opacity. ACT 112: Negative or not required by law. Electronically signed by: Karl Jacinto M.D. 05/05/2024 5:11 PM Discharge Plan Visit Data Chief Complaint: Illness Stated Complaint: ELEVATED WHITE COUNT ED Provider: Darvin Ibrahim Discharge Problem: Sepsis, ALS (amyotrophic lateral sclerosis), Ventilator dependent, Leukocytosis, Cellulitis, Hypocalcemia, Hypokalemia Patient Disposition: Admitted As Inpatient Condition: Serious Forms Stand Alone Forms: My [facility] [employer] Prescriptions Prescriptions: No Action acetaminophen [Children's Acetaminophen] 160 mg/5 mL Liquid 640 mg feeding tube Q6 PRN (Reason: Pain, Mild) Rx Instructions: administer 20 ml into j=tube zinc oxide 20 % Ointment 1 applic TOPICAL TID PRN (Reason: SORES) Rx Instructions: apply to buttocks for bed sores nystatin 100,000 unit/gram Powder 1 applic TOPICAL BID Rx Instructions: apply to groin atropine 1 % Drops 1 drp sublingual QID PRN (Reason: increased secretions) famotidine 40 mg/5 mL (8 mg/mL) Suspension 20 mg feeding tube BID Rx Instructions: use j-tube midodrine 5 mg Tablet 5 mg feeding tube TID Rx Instructions: administer into j-tub morning,noon and bedtime polyethylene glycol 3350 [Miralax] 17 gram/dose Powder 17 g feeding tube DAILY PRN (Reason: Constipation) Rx Instructions: dissolve into 8 oz of water and administer into j-tube A,D-aloe xpoo-binjnwxrgi-c.pet Ointment 1 ea TOPICAL BID PRN (Reason: scrotal area) carboxymethylcellulose sodium 0.5 % Drops 1 drp OPB UD PRN (Reason: Dry Eye(S)) Artificial Tears (PF) 0.1-0.3 % Dropperette 1 drp OPB QID PRN (Reason: Dry Eyes) morphine 10 mg/5 mL Solution 5 mg feeding tube Q2H PRN (Reason: Pain) hydrocortisone 2.5 % ointment 1 applic TOPICAL BID PRN (Reason: Itching) Rx Instructions: scrotal area Remedy Phytoplex Z-Guard 57 % Paste 1 ea TOPICAL BID PRN (Reason: protectant) [facility] 1.4 Liquid Vanilla 1 ea G-tube 6XD Rx Instructions: FLUSH WITH 60 ML OF WATER AFTER LIQUID bisacodyl 10 mg Suppository 10 mg MD DAILY PRN (Reason: Constipation) sodium chloride 0.9 % Solution For Nebulization 3 ml INHALATION QID PRN (Reason: Cough) Balanced Salt Drops 2 drp OPB DAILY Lactobacillus acidophilus Tablet,Chewable 2 tab feeding tube DAILY ciclopirox [Ciclodan] 0.77 % Cream 1 applic topical 3XWK Rx Instructions: tues/thurs/sat ibuprofen 100 mg/5 mL Suspension 200 mg feeding tube TID PRN (Reason: Fever Or Pain) senna leaf extract [senna] 176 mg/5 mL syrup 15 ml feeding tube BID coenzyme Q10 100 mg/5 mL Syrup 10 mg feeding tube DAILY Referrals Referrals: Mikala Cyr CONTACT LENS LATHE OPERATOR [Primary Care Provider] - Discharge Problem: Sepsis Qualifiers: Sepsis type: sepsis due to unspecified organism Sepsis acute organ dysfunction status: without acute organ dysfunction Qualified Code(s): A41.9 - Sepsis, unspecified organism Leukocytosis Qualifiers: Leukocytosis type: unspecified Qualified Code(s): D72.829 - Elevated white blood cell count, unspecified Cellulitis Qualifiers: Site of cellulitis: buttock Qualified Code(s): L03.317 - Cellulitis of buttock
[2024-05-05 17:04] LABS: Appearance Urine Clear (Clear); Bacteria Urine Automated None Seen (None Seen); Bilirubin Urine Negative (Negative); Blood Urine Negative (Negative); Color Urine Dark Yellow; Epithelial Cell Urine Auto 0-2 /hpf (0-2); Glucose Urine UA Negative (Negative); Ketones Urine Trace (Negative); Leukocyte Esterase Urine Negative (Negative); Nitrite Urine Negative (Negative); Protein Urine 1+ (Negative); RBC Urine Automated 0-2 /hpf (0-2); Specific Gravity Urine 1.025 (1.000-1.030); Sperm Urine Present (None Prsent); Urobilinogen Urine Negative (Negative); WBC Urine Automated 0-5 /hpf (0-5); pH Urine 6.5 (4.5-7.5)
--- NOTE | 2024-05-05 17:13 | XRay Report ---
XR chest 1V portable CLINICAL HISTORY: vent, poss pneumonia COMPARISON STUDY: Chest CT April 18, 2024. Chest radiograph April 22, 2024. FINDINGS: A left PICC is in place. There is no pneumothorax. Small bilateral pleural effusions are pr esent. Cavitary 5.8 cm lingular opacity persists. This was shown on prior chest radiograph and chest CT. There is mild right basilar opacity. No evidence for pulmonary edema. Cardiomediastinal silhouett e is stable. IMPRESSION: 1. No significant change in a 5.8 cm cavitary lingular opacity. This favors cavitary pneumonia. Radio graphic follow-up to ensure resolution is recommended. 2. Small bilateral pleural effusions. No change in mild right basilar opacity. ACT 112: Negative or not required by law. Electronically signed by: Karl Jacinto M.D. 05/05/2024 5:11 PM
[2024-05-05] MEDS: POTASSIUM CHLORIDE / WTR 10 MEQ/100 ML PLCT IV ONE (17:28)
[2024-05-05] MEDS: HYDROmorphone INJ 0.5 MG/0.5 ML SYR IV PRN ×2 (17:32→21:15)
[2024-05-05] MEDS: CEFEPIME 2,000 MG/20 ML VIAL IV STA (17:32)
[2024-05-05 17:34] LABS: Adenovirus PCR Not Detected (NotDetected); Bordetella parapertussis PCR Not Detected (NotDetected); Bordetella pertussis PCR Not Detected (NotDetected); Chlamydia pneumoniae PCR Not Detected (NotDetected); Coronavirus 229E PCR Not Detected (NotDetected); Coronavirus CoV-2 (COVID19)PCR Not Detected (NotDetected); Coronavirus HKU1 PCR Not Detected (NotDetected); Coronavirus NL63 PCR Not Detected (NotDetected); Coronavirus OC43PCR Not Detected (NotDetected); Human Metapneumovirus PCR Not Detected (NotDetected); Influenza A PCR Not Detected (NotDetected); Influenza B PCR Not Detected (NotDetected); Mycoplasma pneumoniae PCR Not Detected (NotDetected); Parainfluenza Virus 1 PCR Not Detected (NotDetected); Parainfluenza Virus 2 PCR Not Detected (NotDetected); Parainfluenza Virus 3 PCR Not Detected (NotDetected); Parainfluenza Virus 4 PCR Not Detected (NotDetected); Respiratory Syncytial VirusPCR Not Detected (NotDetected); Rhinovirus/Enterovirus PCR Not Detected (NotDetected)
[2024-05-05] MEDS ORDERED: VANCOMYCIN CONSULT ACTIVE PRN (18:13)
--- NOTE | 2024-05-05 18:31 | History & Physical Report ---
Date of Service May 05, 2024 Assessment & Plan (1) Sepsis: Plan: The patient was transferred to [facility] in [place] with sepsis secondary to lingular abscess and also recurrent biliary pancreatitis He was discharged from the hospital 5 days back on intravenous cefepime and metronidazole through the PEG tube to continue for at least 2 more weeks His recent blood count showed elevated white count of more than 30,000 and he has been having tachycardia and was brought into the emergency room at [facility] He met the sepsis criteria on admission with tachycardia increased white count and also increased lactic acid The sepsis could be secondary to ongoing lung abscess, complicated by sacral decubitus wound and may have C. difficile infection Blood cultures have been taken Started with intravenous vancomycin, cefepime and Metronidazole will be continued. Stool be sent for C. difficile and culture Wound care consultation (2) Lung abscess: Plan: For the cavitary lung lesion in the lingula he was transferred to [facility] in [place] and was advised to have IV antibiotic and oral antibiotic for a total of [address] scan to evaluate for possible drainage/surgery He was [facility] from the [facility] 5 days back on IV Cefepime and Metronidazole through the PEG Chest x-ray did not reveal any change of the abscess Will continue antibiotic as above (3) ALS (amyotrophic lateral sclerosis): Plan: He is quadriplegic and nonverbal, status post tracheostomy tube on vent Has been having blood-tinged suction from the tracheotomy tube as per the Will admit the patient to ICU Will consult medical advisor (4) Ventilator dependent: (5) History of tracheostomy: (6) Hepatic vein thrombosis: Plan: History of recurrent biliary pancreatitis Was sent into [facility] in [place] No ERCP was done Has history of hepatic vein thrombosis Will continue with Lovenox while he is in this hospital (7) Atrial fibrillation with RVR: Plan: History of A-fib with RVR EKG did show sinus tachycardia of 108 Has been on anticoagulation (8) Hypokalemia: Plan: Noted to be hypokalemic Will replace and monitor DVT prophylaxis Subcu Lovenox CODE STATUS Full-discussed with the patient and the (9) Feeding by G-tube: Plan: Will continue PEG tube feeding History of Present Illness Chief Complaint: Abnormal white cell count and tachycardia for a day or 2 Primary Care Provider: Mikala Cyr NP History was mainly taken from the as the patient is nonverbal. He is a 38 years old white male with significant past medical history of respiratory failure secondary to ALS and is status post tracheostomy with ventilator dependent, aspiration risk status post PEG tube placement, history of PAF, PSVT and JOSE ALFREDO, chronic systolic heart failure with EF of 45 to 50% as of TTE in 2021, history of pancreatitis/pseudocyst, recently diagnosed diabetes type 2 and chronic anemia apparently has been back from [facility] in [place] with intravenous cefepime and enteral Flagyl for ongoing lung infection/abscess. He was initially admitted to [facility] on of last month and was transferred to [facility] in [place] for continued care with severe sepsis, recurrent cholangitis and also lung abscess. He was discharged about 5 days back on IV cefepime and oral Flagyl. He has had a blood test done recently and showed white count to be elevated more than 30,000 and also he has been having tachycardia with a heart rate of 200 1015 at times. He also has increasing abdominal pain and dark diarrheal stool recently. The also noted that the suction from the tracheostomy tube is showing some blood at times. He was brought into [facility] for further evaluation and management. The ER physician did discuss the case with the medical advisor and the patient will be admitted to ICU for continued care. Allergies Allergy/AdvReac Type Severity Reaction Status Date / Time hydromorphone [From Dilaudid] AdvReac Intermediate makes pt Verified 05/05/24 17:06 retain urine--IF [facility] IN PLACE PT WILL TAKE MED Home Medications Medication Instructions Recorded Confirmed Type acetaminophen 160 mg/5 mL oral 640 mg feeding tube Q6 PRN Pain, 05/07/22 05/05/24 History liquid (Children's Acetaminophen) Mild atropine 1 % eye drops 1 drp sublingual QID PRN increased 05/07/22 05/05/24 History secretions nystatin 100,000 unit/gram topical 1 applic topical BID 05/07/22 05/05/24 History powder zinc oxide 20 % topical ointment 1 applic topical TID PRN SORES 05/07/22 05/05/24 History A,D-aloe vbgv-hsjxqdscem-u.pet 1 ea topical BID PRN scrotal area 06/10/22 05/05/24 History topical ointment carboxymethylcellulose sodium 0.5 1 drp OPB UD PRN Dry Eye(S) 06/10/22 05/05/24 History % eye drops dextran 70-hypromellose (PF) 0.1 1 drp OPB QID PRN Dry Eyes 06/10/22 05/05/24 History %-0.3 % eye drops in a dropperette (Artificial Tears (PF)) famotidine 40 mg/5 mL (8 mg/mL) 20 mg feeding tube BID 06/10/22 05/05/24 History oral suspension midodrine 5 mg tablet 5 mg feeding tube TID 06/10/22 05/05/24 History polyethylene glycol 3350 17 17 g feeding tube DAILY PRN 06/10/22 05/05/24 History gram/dose oral powder (Miralax) Constipation morphine 10 mg/5 mL oral solution 5 mg feeding tube Q2H PRN Pain 10/30/22 History [place] 1.4 Liquid Vanilla 1 ea G-tube 6XD 04/23/23 05/05/24 History hydrocortisone 2.5 % topical 1 applic topical BID PRN Itching 04/23/23 05/05/24 History ointment white petrolatum 57 % topical 1 ea topical BID PRN protectant 04/23/23 05/05/24 History paste (Remedy Phytoplex Z-Guard) ciclopirox 0.77 % topical cream 1 applic topical 3XWK 03/31/24 05/05/24 History (Ciclodan) coenzyme Q10 100 mg/5 mL oral syrup 10 mg feeding tube DAILY 03/31/24 05/05/24 History ibuprofen 100 mg/5 mL oral 200 mg feeding tube TID PRN Fever 03/31/24 05/05/24 History suspension Or Pain senna leaf extract 176 mg/5 mL 15 ml feeding tube BID 03/31/24 05/05/24 History oral syrup (senna) Lactobacillus acidophilus 2 tab feeding tube DAILY 05/05/24 05/05/24 History bisacodyl 10 mg rectal suppository 10 mg DC DAILY PRN Constipation 05/05/24 05/05/24 History sodium chloride 0.9 % for 3 ml inhalation QID PRN Cough 05/05/24 05/05/24 History nebulization ikyqov-eyqhqixxg-SqBr eye drops 2 drp OPB DAILY 05/05/24 05/05/24 History Past Med/Surg History Problem List (Updated 05/05/24 @ 18:59 by Ivon Bolivar MD) Feeding by G-tube Hypokalemia (Acute) Hypocalcemia (Acute) Cellulitis (Acute) Leukocytosis (Acute) Ventilator dependent (Acute) ALS (amyotrophic lateral sclerosis) (Acute) Sepsis (Acute) Palliative care by specialist Advanced care planning/counseling discussion Dyspnea and respiratory abnormalities Weakness generalized Muscle spasticity Generalized pain Hepatic vein thrombosis Lung abscess E. coli UTI Respiratory failure Pancreatitis (Acute) Pneumonia (Acute) Acute UTI (Acute) Dependent on ventilator (Acute) Sepsis (Acute) Dilated bile duct Cholangitis Acute dehydration (Acute) DKA (diabetic ketoacidosis) (Acute) Sepsis (Acute) UTI (urinary tract infection) Elevated liver enzymes Septic shock HHNC (hyperglycemic hyperosmolar nonketotic coma) Encounter for pre-operative examination Ascites Ventilator dependence (Acute) Gastritis (Acute) DVT prophylaxis ALS (amyotrophic lateral sclerosis) (Acute) History of tracheostomy (Acute) currently in place; last changed 10/31/22 with a new Shley tracheostomy #8 tube Chronic respiratory failure (Acute) CURRENT TRACH 8DCT INTACT>8.5 WITH HUMIDIFICATION *REQUIRED SUCTIONED EVERY 20 MINUTES ON AVERAGE Atrial fibrillation with RVR hx of; per Dr. Bone's note:" Telemetry reveals that on 12/18/2021 at 22:12 patient reverted from sinus tachycardia at about 100 bpm to atrial fibrillati on in the 150s. He subsequently converted to sinus rhythm while on an amiodarone infusion at 23:14."--no issues since Medical History Pressure ulcer CLOSED ON BUTTOCK Tracheostomy in place 12/2021 ORIGINALLY PLACED (LAST CHANGED 10/2022) Hypotension NO CARDS Hx of pancreatitis Pseudocyst of pancreas Left ventricular systolic dysfunction Uses feeding tube G-J TUBE USED FOR MEDS AND FEEDINGS Slow gastric motility D/T ALS Dry eye syndrome Cardiac murmur AN Sleep apnea TRILEGY MACHINE WITH 2.5L (WEARS CONT) ALS (amyotrophic lateral sclerosis) DX FEBRUARY 2014>CAN NOT MOVE Surgical History History of esophagogastroduodenoscopy (EGD) Hx of LASIK PRK S/P percutaneous endoscopic gastrostomy (PEG) tube placement History of tooth extraction History of herniorrhaphy Family History Mother Family history of diabetes mellitus Other No family history of adverse response to anesthesia Social History Smoking Status: Never smoker Second Hand Exposure: No; Do You Dip or Chew Tobacco: No; Hx Alcohol Use: No Hx Substance Use: No Preferred Language: German Communication Ability: Effective Communication Ability Comment: pt can not talk--uses electronic table to communicate; signs consents Tower Excavator Operator Required: No Beliefs That Will Affect Care: None marital status: Current Living Situation: Spouse and Family Current Living Situation Comment: has 2 personal aides to help in home How many Children do You have: 3 Other Information That Helps Us Care for You: No Feels Safe at Home: Yes Safety Concerns: Feels Safe At This Time Assistive Devices: Hospital Bed, Mechanical Lift and Oxygen - Continuous Assistive Devices Comment: trach/vent/peg tube Review of Systems Review of Systems: Unobtainable due to endotracheal tube Physical Exam Physical Exam: Lying in bed without any acute distress but looked ill Constitutional: well developed, well nourished and + ill appearing Eyes: PERRL, conjunctivae normal, anicteric sclerae Neck: Tracheostomy tube in site to Respiratory: no respiratory distress Auscultation: + diminished lung sounds (More on the left base than the right) Cardiovascular: Rate/Rhythm: regular rate, regular rhythm and + tachycardic Heart Sounds: normal S1 and normal S2; no murmur Extremities: + edema (Trace edema bilaterally) Gastrointestinal (Abdomen): Inspection/Auscultation: normal bowel sounds (Decreased); abdomen not distended Percussion/Palpation: + abdomen tender (Mildly tender) and abdomen soft Neurologic: Quadriplegia from ALS. Nonverbal,Communicating through the tablet with visual guidance. Lymphatic: no cervical or axillary lymphadenopathy Results & Data Results & Data Vital Signs (Past 12 Hours) Vital Signs Temp Pulse Resp BP Pulse Ox O2 Del Method 05/05/24 18:06 116 H 17 100 Mechanical Vent 05/05/24 17:51 117 H 20 100 Mechanical Vent 05/05/24 17:30 109/81 05/05/24 17:30 109/81 05/05/24 17:30 111 H 21 100 Mechanical Vent 05/05/24 17:18 111 H 18 100 Mechanical Vent 05/05/24 17:15 122/87 05/05/24 17:06 106 H 16 100 Mechanical Vent 05/05/24 17:00 103 H 17 100 Mechanical Vent 05/05/24 17:00 130/92 05/05/24 16:45 106 H 18 100 Mechanical Vent 05/05/24 16:45 107/86 05/05/24 16:33 109 H 17 100 Mechanical Vent 05/05/24 16:30 99/75 L 05/05/24 16:30 100 Mechanical Vent 05/05/24 16:25 110 H 05/05/24 16:21 115 H 19 100 Mechanical Vent 05/05/24 16:15 114 H 19 100 Mechanical Vent 05/05/24 16:15 89/72 L 05/05/24 16:00 96/68 L 05/05/24 16:00 112 H 18 100 Mechanical Vent 05/05/24 15:49 91/70 L 05/05/24 15:45 109 H 16 100 Mechanical Vent 05/05/24 15:41 36.9 C 05/05/24 15:32 35.9 C L 05/05/24 15:30 109 H 19 100 Mechanical Vent 05/05/24 15:27 110 H 20 100 Mechanical Vent 05/05/24 15:27 110 H 20 85/69 L 100 Mechanical Vent 05/05/24 15:25 85/69 L Laboratory Results Short CBC 05/05/24 Range/Units 15:30 WBC 35.92 H* (4.8-10.8) K/ul Hgb 10.7 L (14.0-18.0) g/dl Hct 34.0 L (42.0-52.0) % Plt Count 647 H (130-400) K/uL BMP 05/05/24 15:30 Sodium 140 Potassium 2.9 L Chloride 105 Carbon Dioxide 21 BUN 53 H Creatinine < 0.20 L Glucose 101 H Calcium 7.4 L Liver Function 05/05/24 Range/Units 15:30 Total Bilirubin 0.6 (0.2-1.0) mg/dl AST 26 (13-39) U/L ALT 9 (7-52) U/L Alkaline Phosphatase 316 H (34-104) U/L Albumin 2.4 L (3.4-5.0) gm/dl Urine 05/05/24 Range/Units 16:17 Urine Color Dark Yellow Urine Appearance Clear (Clear) Urine pH 6.5 (4.5-7.5) Ur Specific Amery 1.025 (1.000-1.030) Urine Protein 1+ H (Negative) Urine Glucose (UA) Negative (Negative) Medications Administered Current Inpatient Medications Hydromorphone HCl (Hydromorphone Inj 0.5 Mg/0.5 Ml Syr) 0.5 mg IV Q15M PRN PRN Reason: Pain Stop: 05/19/24 17:10 Last Admin: 05/05/24 18:19 Dose: 0.5 mg Cefepime HCl 2,000 mg/ Syringe 20 mls @ 5 mls/min IV Q12H MYNOR; Protocol Stop: 05/13/24 04:59 Vancomycin HCl 1,250 mg/ (Sodium Chloride) 275 mls @ 200 mls/hr IV Q8H MYNOR; Protocol Stop: 05/13/24 02:59 Vancomycin HCl 2,000 mg/ (Sodium Chloride) 540 mls @ 200 mls/hr IV ONE ONE Stop: 05/05/24 21:41 Metronidazole (Metronidazole 500 Mg Tab) 500 mg PO TID MYNOR; Protocol Stop: 05/12/24 20:59 Miscellaneous Information (Vancomycin Consult Active) 1 each N/A UD PRN PRN Reason: Consult Stop: 06/04/24 18:12 (1) Sepsis Sepsis acute organ dysfunction status: without acute organ dysfunction Sepsis type: sepsis due to unspecified organism Qualified Code(s): A41.9 - Sepsis, unspecified organism (2) Lung abscess Laterality: left Lung location: lower lobe of lung Pulmonary abscess pneum onia presence: without pneumonia Qualified Code(s): J85.2 - Abscess of lung without pneumonia
--- NOTE | 2024-05-05 19:01 | Pharmacy Report ---
Pharmacy PK ABX Note - Date of Service May 05, 2024 - Assessment and Plan Laboratory Tests 05/05/24 15:30 WBC 35.92 H* Creatinine < 0.20 L Est GFR (Non-Af Amer) > 150.0 Procalcitonin 0.86 H Assessment 38 year old M receiving IV Vancomycin + Cefepime + Flagyl for treatment of pulmonary infection + abscess + sacral decubitus wound and possible CDiff. WBC 36. Procal 0.86, Afebrile, respiratory PCR negative. Significant PMH of respiratory failure secondary to ALS, tracheostomy with ventilator dependent, aspiration risk, PEG tube placement, on IV Cefepime and enteral Flagyl as outpatient for ongoing lung infection/abscess, followed by [facility]. Plan Vancomycin * Loading dose: 2000 mg IV x 1 * Maintenance dose: 1250 mg IV every 8 hours * Regimen is predicted to achieve target AUC/ED of 400-600 mg/L.hr * Trough level ordered for: 05/06/24 Cefepime 2g IV Q12H Metronidazole 500mg PEG TID Pharmacy will continue to follow and will adjust dose/frequency as necessary. Thank you. Pharmacy has transitioned to AUC monitoring for vancomycin. AUC/ED is the preferred PK/PD target and is associated with decreased risk of nephrotoxicity compared to traditional trough targets.
[2024-05-05] MEDS ORDERED: ONDANSETRON INJ 2 MG/ML 2 ML VIAL IV PRN (19:16)
[2024-05-05] MEDS ORDERED: POLYETHYLENE (MIRALAX) 17 GM PACK PEG PRN (20:11)
[2024-05-05] MEDS ORDERED: SODIUM CHLORIDE 0.9% NEBU SOLN 3 ML NEB PRN (20:11)
[2024-05-05] MEDS ORDERED: ATROPINE SULFATE 1% OP SOLN 5 ML BTL SL PRN (20:11)
[2024-05-05] MEDS ORDERED: HYDROCORTISONE 2.5% OINT 20 GM TUBE TOP PRN (20:11)
[2024-05-05] MEDS ORDERED: [UNRECOGNIZED DRUG - OTHER] GT SCH (20:11)
[2024-05-05] MEDS ORDERED: NON-FORMULARY MEDICATION (Carboxymethylcellulose Sodium 0.5 % Drops) OPB PRN (20:11)
[2024-05-05] MEDS: VANCOMYCIN HCL 2,000 MG in SODIUM CHLORIDE 0.9% 500 ML IV ONE (20:13)
[2024-05-05] MEDS: POTASSIUM CHLORIDE 20 MEQ/15 ML UDC PEG STA (20:18)
--- NOTE | 2024-05-05 20:26 | Critical Care Consultation ---
Date of Consultation May 05, 2024 Assessment & Plan (1) Sepsis: Impression: 38-year-old male with ALS with paraplegia and ventilator dependent with tracheostomy and PEG tube along with other pertinent history including CHF, recurrent cholangitis, Pancreatitis, lung abscess, Chronic sacral wound, paroxysmal A-fib now presents to the ICU for management of ventilator while undergoing treatment for sepsis. Neuro - ALS Patient with end-stage ALS and ventilator dependent with tracheostomy and G/J-tube for feeding Cardiac - Currently hemodynamically stable with sinus tachycardia on monitor. notes the patient usually becomes tachycardic when he is septic. - No use for IV vasopressors at this time. Continue midodrine - Previous TTE with EF 50 to 55% and borderline global hypokinesis of the left ventricle with grade 1 diastolic dysfunction. - Continuous monitoring telemetry Respiratory - Chronic respiratory failure with mechanical ventilationpatient ventilator dependent without significant hypoxia. Admitted to ICU for management of ventilator. Continuous end-tidal CO2 and pulse ox monitoring. - Recent admission for lung abscess in which she was undergoing 4 weeks antibiotics with cefepime and Flagyl, with plan to follow-up with the NH after 4-week antibiotic therapy for repeat CT imaging. - May have had aspiration event yesterday according to . Currently having blood-tinged sputum. Sputum cultured - Chest x-ray with redemonstrated abscess and effusions unchanged from previous imaging. GI - Currently n.p.o. due to recent vomiting, and PEG tube to [place] - As needed Zofran for nausea Chronic cholangitisappears to be stable. No elevation of LFTs on initial labs. Chronic pancreatitispatient does exhibit left upper quadrant pain. Will add on lipase to previous labs. Consider CT abdomen and pelvis RENAL/LYTES - Creatinine within normal limits. Monitor routine BMPs and replete electrolytes as indicated. Continue IV fluid resuscitation while n.p.o. - Foleystrict I's and O's ENDO - No history of diabetes. Currently euglycemic. ICU hyperglycemic protocol HEME - H&H stable, monitor routine CBC ID - Sepsisunsure of etiology at this time as patient has multiple potential sources including chronic sacral wound, lung abscess/pneumonia, multiple UTIs, chronic cholangitis and pancreatitis. - Was undergoing treatment with cefepime and Flagyl following discharge from the NH 5 days ago for lung abscess - WBC 36,000, procalcitonin elevated, afebrile, lactate within normal limits - Blood cultures, urine culture, sputum culture pending - Previous admission with Pseudomonas and Serratia marcescens pneumonia - Continue broad-spectrum antibiotics with vancomycin, cefepime, Flagyl for now LINES/IV ACCESS - Peripheral IVs DVT PROPHYLAXIS - SCDs, Lovenox Thank you for allowing us to participate in the care of this patient. Please refer to my attending physician's documentation for any further recommendations. (2) ALS (amyotrophic lateral sclerosis): (3) Lung abscess: (4) Dependent on ventilator: (5) Respiratory failure: Supervising Physician Co-Signing Physician Notes Patient seen and examined. EMR reviewed. Discussed with critical care [facility] and ER staff. Agree with assessment plan as noted with exceptions noted in my progress note from 05/06/2024 History of Present Illness Attending Physician: Ivon Bolivar MD History of Present Illness The patient is a 38-year-old male with past medical history of ALS with quadriplegia and status post tracheostomy and ventilator dependent, Chronic sacral wound, CHF, DM type II, recurrent cholangitis, and recent admission to the hospital with transfer to [facility] in [place] where he was found to have lung abscess. According to the he did not undergo surgical intervention while at the NH. He was discharged from the NH 5 days ago and was undergoing antibiotics for total of 4 weeks, with plan to repeat CT scan to evaluate abscess. He presented to the emergency department earlier today with complaints of tachycardia and was noted to have elevated WBC of 30,000. Patient also reports continued abdominal pain and reported having a dark stool at home. He has had blood-tinged sputum as well, the patient's reports that he Had an episode of vomiting yesterday in which she suctioned vomit from his tracheostomy. He is now being admitted to ICU for further vent management. Allergies Allergy/AdvReac Type Severity Reaction Status Date / Time hydromorphone [From Dilaudid] AdvReac Intermediate makes pt Verified 05/05/24 17:06 retain urine--IF [facility] IN PLACE PT WILL TAKE MED Home Medications Medication Instructions Recorded Confirmed Type acetaminophen 160 mg/5 mL oral 640 mg feeding tube Q6 PRN Pain, 05/07/22 05/05/24 History liquid (Children's Acetaminophen) Mild atropine 1 % eye drops 1 drp sublingual QID PRN increased 05/07/22 05/05/24 History secretions nystatin 100,000 unit/gram topical 1 applic topical BID 05/07/22 05/05/24 History powder zinc oxide 20 % topical ointment 1 applic topical TID PRN SORES 05/07/22 05/05/24 History A,D-aloe zqyq-aydqkcxjoq-j.pet 1 ea topical BID PRN scrotal area 06/10/22 05/05/24 History topical ointment carboxymethylcellulose sodium 0.5 1 drp OPB UD PRN Dry Eye(S) 06/10/22 05/05/24 History % eye drops dextran 70-hypromellose (PF) 0.1 1 drp OPB QID PRN Dry Eyes 06/10/22 05/05/24 History %-0.3 % eye drops in a dropperette (Artificial Tears (PF)) famotidine 40 mg/5 mL (8 mg/mL) 20 mg feeding tube BID 06/10/22 05/05/24 History oral suspension midodrine 5 mg tablet 5 mg feeding tube TID 06/10/22 05/05/24 History polyethylene glycol 3350 17 17 g feeding tube DAILY PRN 06/10/22 05/05/24 History gram/dose oral powder (Miralax) Constipation morphine 10 mg/5 mL oral solution 5 mg feeding tube Q2H PRN Pain 10/30/22 05/05/24 History [place] 1.4 Liquid Vanilla 1 ea G-tube 6XD 04/23/23 05/05/24 History hydrocortisone 2.5 % topical 1 applic topical BID PRN Itching 04/23/23 05/05/24 History ointment white petrolatum 57 % topical 1 ea topical BID PRN protectant 04/23/23 05/05/24 History paste (Remedy Phytoplex Z-Guard) ciclopirox 0.77 % topical cream 1 applic topical 3XWK 03/31/24 05/05/24 History (Ciclodan) coenzyme Q10 100 mg/5 mL oral syrup 10 mg feeding tube DAILY 03/31/24 05/05/24 History ibuprofen 100 mg/5 mL oral 200 mg feeding tube TID PRN Fever 03/31/24 05/05/24 History suspension Or Pain senna leaf extract 176 mg/5 mL 15 ml feeding tube BID 03/31/24 05/05/24 History oral syrup (senna) Lactobacillus acidophilus 2 tab feeding tube DAILY 05/05/24 05/05/24 History bisacodyl 10 mg rectal suppository 10 mg ID DAILY PRN Constipation 05/05/24 05/05/24 History sodium chloride 0.9 % for 3 ml inhalation QID PRN Cough 05/05/24 05/05/24 History nebulization bazdnb-difozmtzs-BtKk eye drops 2 drp OPB DAILY 05/05/24 05/05/24 History Patient History Medical History Pressure ulcer CLOSED ON BUTTOCK Tracheostomy in place 12/2021 ORIGINALLY PLACED (LAST CHANGED 10/2022) Hypotension NO CARDS Hx of pancreatitis Pseudocyst of pancreas Left ventricular systolic dysfunction Uses feeding tube G-J TUBE USED FOR MEDS AND FEEDINGS Slow gastric motility D/T ALS Dry eye syndrome Cardiac murmur AN INFANT Sleep apnea TRILEGY MACHINE WITH 2.5L (WEARS CONT) ALS (amyotrophic lateral sclerosis) DX FEBRUARY 2014>CAN NOT MOVE Surgical History History of esophagogastroduodenoscopy (EGD) Hx of LASIK PRK S/P percutaneous endoscopic gastrostomy (PEG) tube placement History of tooth extraction History of herniorrhaphy Family History Mother Family history of diabetes mellitus Other No family history of adverse response to anesthesia Social History Smoking Status: Never smoker Second Hand Exposure: No; Do You Dip or Chew Tobacco: No; Hx Alcohol Use: No Hx Substance Use: No Preferred Language: Paraguayan Communication Ability: Effective Communication Ability Comment: pt can not talk--uses electronic table to communicate; signs consents Bindery Machine Operator Required: No Beliefs That Will Affect Care: None marital status: Current Living Situation: Spouse and Family Current Living Situation Comment: has 2 personal aides to help in home How many Children do You have: 3 Other Information That Helps Us Care for You: No Feels Safe at Home: Yes Safety Concerns: Feels Safe At This Time Assistive Devices: Hospital Bed, Mechanical Lift and Oxygen - Continuous Assistive Devices Comment: trach/vent/peg tube Review of Systems Review of Systems: All systems reviewed & are unremarkable except as noted in HPI & below Physical Exam Constitutional: + mechanically ventilated; no acute dist ress Eyes: PERRL, conjunctivae normal, anicteric sclerae ENMT: external ear and nose normal, oropharynx normal Neck: trachea midline, no thyromegaly Respiratory: normal respiratory effort, lungs clear to auscultation Cardiovascular: RRR, no murmur, no edema Heart Sounds: normal S1 and normal S2; no murmur Extremities: + edema Gastrointestinal (Abdomen): Normal bowel sounds, abdomen soft, flat. Tender to palpation in left upper quadrant. Musculoskeletal: Quadriplegic with muscle wasting. Skin: no rashes, warm and dry (Large Tunneling sacral ulcer) Neurologic: PERRLA. Quadriplegic Psychiatric: ANO x 3. Results & Data Results & Data Vital Signs (Past 12 Hours) Vital Signs Temp Pulse Resp BP Pulse Ox O2 Del Method FiO2 05/05/24 20:06 116 H 19 100 30 05/05/24 19:19 117 H 05/05/24 18:06 116 H 17 100 Mechanical Vent 05/05/24 17:51 117 H 20 100 Mechanical Vent 05/05/24 17:30 109/81 05/05/24 17:30 109/81 05/05/24 17:30 111 H 21 100 Mechanical Vent 05/05/24 17:18 111 H 18 100 Mechanical Vent 05/05/24 17:15 122/87 05/05/24 17:06 106 H 16 100 Mechanical Vent 05/05/24 17:00 103 H 17 100 Mechanical Vent 05/05/24 17:00 130/92 05/05/24 16:45 106 H 18 100 Mechanical Vent 05/05/24 16:45 107/86 05/05/24 16:33 109 H 17 100 Mechanical Vent 05/05/24 16:30 99/75 L 05/05/24 16:30 100 Mechanical Vent 05/05/24 16:25 110 H 05/05/24 16:21 115 H 19 100 Mechanical Vent 05/05/24 16:15 114 H 19 100 Mechanical Vent 05/05/24 16:15 89/72 L 05/05/24 16:00 96/68 L 05/05/24 16:00 112 H 18 100 Mechanical Vent 05/05/24 15:49 91/70 L 05/05/24 15:45 109 H 16 100 Mechanical Vent 05/05/24 15:41 36.9 C 05/05/24 15:32 35.9 C L 05/05/24 15:30 109 H 19 100 Mechanical Vent 05/05/24 15:27 110 H 20 100 Mechanical Vent 05/05/24 15:27 110 H 20 85/69 L 100 Mechanical Vent 05/05/24 15:25 85/69 L Coding Level of Care Code 73063 IN/OBS CONSULT LVL 3,45M Diagnoses Sepsis A41.9 Sepsis acute organ dysfunction status: without acute organ dysfunction Sepsis type: sepsis due to unspecified organism ALS (amyotrophic lateral sclerosis) G12.21 Abscess of lower lobe of left lung without pneumonia J85.2 Laterality: left Lung location: lower lobe of lung Pulmonary abscess pneumonia presence: without pneumonia Dependent on ventilator Z99.11 Respiratory failure J96.90 Time Spent (min) 56 (1) Sepsis Sepsis acute organ dysfunction status: without acute organ dysfunction Sepsis type: sepsis due to unspecified organism Qualified Code(s): A41.9 - Sepsis, unspecified organism (3) Lung abscess Laterality: left Lung location: lower lobe of lung Pulmonary abscess pneumonia presence: without pneumonia Qualified Code(s): J85.2 - Abscess of lung without pneumonia
[2024-05-05] MEDS ORDERED: BUTT PASTE (ZINC OXIDE 16%) 171 APPLN/57 GM JAR TOP PRN (20:30)
[2024-05-05] MEDS ORDERED: PETROLATUM 16 OZ JAR EXT PRN (20:30)
[2024-05-05] MEDS ORDERED: ARTIFICIAL TEARS OP PRN (20:31)
[2024-05-05] MEDS ORDERED: ACETAMINOPHEN SUSP 325 MG/10.15 ML UDC PO PRN (20:35)
[2024-05-05] MEDS ORDERED: MENTHOL-ZINC OXIDE 360 APPLN/120 GM TUBE EXT PRN (20:45)
[2024-05-05] MEDS: ENOXAPARIN 80 MG/0.8 ML SYR SQ SCH (21:13)
[2024-05-05] MEDS: MIDODRINE HCL 2.5 MG TAB PO SCH (21:13)
[2024-05-05] MEDS: metroNIDAZOLE 500 MG TAB PO SCH (21:14)
[2024-05-05] MEDS: NYSTATIN POWDER 15GM BTL EXT SCH (21:15)
[2024-05-05] MEDS: FAMOTIDINE SUSP 20 MG/2.5 ML UDP NG SCH (21:18)
[2024-05-05 21:23] LABS: Lipase 749 U/L (11-82)
--- NOTE | 2024-05-05 22:45 | Electrocardiogram Report ---
Test Reason : Blood Pressure : / mmHG Vent. Rate : 108 BPM Atrial Rate : 108 BPM P-R Int : 118 ms QRS Dur : 092 ms QT Int : 414 ms P-R-T Axes : 025 049 065 degrees QTc Int : 554 ms Sinus tachycardia Nonspecific ST abnormality Prolonged QT Abnormal ECG When compared with ECG of 18-APR-2024 19:24, No significant change was found Confirmed by Orville Shea ([id number]) on 05/05/2024 10:44:56 PM Referred By: Confirmed By:Orville Shea
[2024-05-05] MEDS: MoRPHine SULFATE 10 MG/0.5 ML UDP PO PRN (23:13)
[2024-05-05 23:15] LABS: Adenovirus F 40/41 PCR Not Detected (NotDetected); Astrovirus PCR Not Detected (NotDetected); Campylobacter PCR Not Detected (NotDetected); Cryptosporidium PCR Not Detected (NotDetected); Cyclospora cayetanensis PCR Not Detected (NotDetected); Entamoeba histolytica PCR Not Detected (NotDetected); Enteroaggregative E.coli(EAEC) Not Detected (NotDetected); Enteropathogenic E.coli (EPEC) Not Detected (NotDetected); Enterotoxigenic E.coli (ETEC) Not Detected (NotDetected); Giardia lamblia PCR Not Detected (NotDetected); Norovirus GI/GII PCR Not Detected (NotDetected); Plesiomonas shigelloides PCR Not Detected (NotDetected); Rotavirus A PCR Not Detected (NotDetected); Salmonella PCR Not Detected (NotDetected); Sapovirus PCR Not Detected (NotDetected); Shiga-like Toxin E.coli (STEC) Not Detected (NotDetected); Shigella/Enteroinvasive E.coli Not Detected (NotDetected); Vibrio cholerae PCR Not Detected (NotDetected); Vibrio species PCR Not Detected (NotDetected); Yersinia enterocolitica PCR Not Detected (NotDetected)
[2024-05-06] MEDS: PLASMA-LYTE A 1,000 ML IV SCH (02:54)
[2024-05-06] MEDS: CEFEPIME 2,000 MG in SYRINGE 0 ML IV SCH (03:47)
[2024-05-06] MEDS: VANCOMYCIN HCL 1,250 MG in SODIUM CHLORIDE 0.9% 250 ML IV SCH (03:47)
[2024-05-06 04:40] LABS: Base Excess VBG -3.1 mEq/L; HCO3 VBG 21 mmol/L; PCO2 VBG 35 mmHg (38-50); PO2 VBG 43 mmHg; pH VBG 7.39 (7.36-7.41)
[2024-05-06 04:48] LABS: Hematocrit (blood only) 28.7 % (42.0-52.0); Hemoglobin 8.9 g/dl (14.0-18.0); Mean Corpuscular Hemoglobin 28.3 pg (25.0-34.0); Mean Corpuscular Volume 91.1 fL (80.0-100.0); Mean Platelet Volume 10.1 fL (9.4-12.4); Nucleated RBC # (auto) 0.07 K/uL (0.00-0.12); Nucleated RBC % (auto) 0.2 %; Platelet Count 496 K/uL (130-400); RDW Coefficient of Variation 23.3 % (11.5-14.5); Red Blood Count 3.15 M/uL (4.70-6.10); White Blood Count 33.76 K/ul (4.8-10.8)
[2024-05-06 05:07] LABS: Anisocytosis Present; Basophils # (auto) 0.06 K/uL (0.00-0.20); Basophils % (auto) 0.2 %; Eosinophils # (auto) 0.36 K/uL (0.00-0.50); Eosinophils % (auto) 1.1 %; Immature Granulocytes # (auto) 0.46 K/uL (0.01-0.20); Immature Granulocytes % (auto) 1.4 %; Lymphocytes # (auto) 2.17 K/uL (1.20-3.40); Lymphocytes % (auto) 6.4 %; Monocytes # (auto) 1.01 K/uL (0.11-0.59); Neutrophils % (auto) 87.9 %; Polychromasia 2+
[2024-05-06 05:08] LABS: Alanine Aminotransferase 8 U/L (7-52); Albumin Globulin Ratio 0.5 (0.9-2); Alkaline Phosphatase 319 U/L (34-104); Anion Gap 10 (3-11); Aspartate Aminotransferase 23 U/L (13-39); Bilirubin,Total 0.8 mg/dl (0.2-1.0); Blood Urea Nitrogen 34 mg/dl (6-23); Calcium 6.9 mg/dl (8.6-10.3); Carbon Dioxide 20 mmol/L (21-32); Chloride 113 mmol/L (98-107); Creatinine Clr Calc Pharmacy 560.5 ml/min; Est GFR (African American) > 150.0 ml/min; Est GFR (Non-African American) > 150.0 ml/min; Globulin 4.2 gm/dl (2.5-4.0); Glucose 110 mg/dl (70-99(Fasting)); Magnesium 2.1 mg/dl (1.7-2.4); Phosphorus 3.2 mg/dl (2.5-4.9); Potassium 3.6 mmol/L (3.5-5.1); Sodium 143 mmol/L (136-145); Total Protein 6.2 gm/dl (6.0-8.3)
[2024-05-06] MEDS: POTASSIUM CHLORIDE 20 MEQ/15 ML UDC PO STA (05:48)
[2024-05-06] MEDS: metroNIDAZOLE 500 MG/100 ML BAG IV SCH (07:47)
--- NOTE | 2024-05-06 08:05 | CT Scan Report ---
Exam(s): CT ABDOMEN + PELVIS Without Contrast EXAM: CT Abdomen and Pelvis Without Intravenous Contrast CLINICAL HISTORY: Reason for exam: sepsis, elevated lipase. TECHNIQUE: Axial computed tomography images of the abdomen and pelvis without intravenous contrast. CTDI is 26.14 mGy and DLP is 1575.87 mGy-cm. Automated exposure control was utilized for the study. A dose lowering technique was utilized adhering to the principles of ALARA. COMPARISON: MRCP dated april 19 2024 FINDINGS: Limitations: Limited evaluation in the absence of contrast. Lung bases: Increased size of complex gas and fluid containing mass with dependent complex components within the left lower lobe. This measures approximately 6.0 x 6.9 buy 5.7 cm, previously 4.0 x 3.0 x 4.4 cm. Surrounding airspace disease noted. Findings are favored to be related to worsening cavitary mass. This is favored to be infectious in nature. Consider dedicated imaging of the chest. Dependent consolidation at the lung bases with bronchiectasis. Findings may relate to sequela of chronic infection/aspiration changes. ABDOMEN: Liver: Unremarkable. Gallbladder and bile ducts: Unremarkable. No calcified stones. No ductal dilation. Pancreas: Diffuse enlargement the pancreas with ill-defined stranding and fluid. Findings are consistent with patient's known pancreatitis. Consider follow-up multiphasic imaging and/or MRI if there is further concern. Spleen: Unremarkable. No splenomegaly. Adrenals: Unremarkable. No mass. Kidneys and ureters: No evidence of radiopaque renal calculi or signs of collecting system dilatation. Stomach and bowel: Unremarkable. No obstruction. No mucosal thickening. PELVIS: Appendix: No findings to suggest acute appendicitis. Bladder: [place]la within the bladder. Gas in the bladder dome with bladder wall thickening may relate to cystitis. No stones. Reproductive: Unremarkable as visualized. ABDOMEN and PELVIS: Intraperitoneal space: Moderate volume simple mesenteric ascites. No free air. Bones/joints: Degenerative changes in the spine. No acute fracture. No dislocation. Soft tissues: Unremarkable. Vasculature: Embolization which are noted adjacent to the pancreas. No abdominal aortic aneurysm. Lymph nodes: Unremarkable. No enlarged lymph nodes. Tubes, lines and devices: Gastrojejunostomy tube in situ. Rectal tube in situ. IMPRESSION: 1. Limited evaluation in the absence of contrast. 2. No evidence of radiopaque renal calculi or signs of collecting system dilatation. 3. Increased size of complex gas and fluid containing mass with dependent complex components within the left lower lobe. This measures approximately 6.0 x 6.9 buy 5.7 cm, previously 4.0 x 3.0 x 4.4 cm. Surrounding airspace disease noted. Findings are favored to be related to worsening cavitary mass. This is favored to be infectious in nature. Consider dedicated imaging of the chest. 4. Diffuse enlargement the pancreas with ill-defined stranding and fluid. Findings are consistent with patient's known pancreatitis. Consider follow-up multiphasic imaging and/or MRI if there is further concern. 5. Moderate volume simple mesenteric ascites. 6. Varela within the bladder. Gas in the bladder dome with bladder wall thickening may relate to cystitis. Communications: Verify Receipt Electronically signed by: Lexx Norman MD 05/06/24 08:04 AM
[2024-05-06] MEDS: MIDAZOLAM HCL 1 MG/ML 2ML VIAL ONE (08:36)
[2024-05-06] MEDS: fentaNYL citrate PF 100 MCG/2 ML VIAL ONE (08:36)
--- NOTE | 2024-05-06 08:41 | Critical Care Progress Note ---
Date of Service May 06, 2024 Assessment & Plan (1) Sepsis: Plan: Impression: 38-year-old male with ALS with paraplegia and ventilator dependent with tracheostomy and PEG tube along with other pertinent history including CHF, recurrent cholangitis, Pancreatitis, lung abscess, Chronic sacral wound, paroxysmal A-fib now presents to the ICU for management of ventilator while undergoing treatment for sepsis. 24-hour events: Patient was admitted to the ICU. Has been hemodynamically stable. He continued to have bloody secretions through his trach tube. He underwent bronchoscopy today with removal of significant clots in the left-sided airways and bronchial washings from the left lower lobe. Recommendation Neuro - ALS Patient with end-stage ALS and ventilator dependent with tracheostomy and G/J-tube for feeding Cardiac - Currently hemodynamically stable with sinus tachycardia on monitor. Suspect this tachycardia is related to ongoing infection. Continue outpatient midodrine Respiratory - Chronic respiratory failure with mechanical ventilationpatient ventilator dependent without significant hypoxia. Admitted to ICU for management of ventilator. CT scan shows increasing air-fluid levels in the left lower lobe opacity and increasing size of the lung abscess. Suspect this represents outpatient failure of cefepime and Flagyl. Cultures have been reobtained. Antibiotics transition to Zosyn. Recommend the patient be transferred to the [facility] in [place] for formal ID consultation, interventional radiology evaluation for potential percutaneous drainage with its attendant risk of bronchopleural fistula and thoracic evaluation. GI - Currently n.p.o. due to recent vomiting, and PEG tube to [place]. Lipase elevated. CT of the abdomen and pelvis shows chronic changes but no acute finding. Can restart tube feeding as tolerated RENAL/LYTES - Creatinine within normal limits. Monitor routine BMPs and replete electrolytes as indicated. - Foleystrict I's and O's ENDO - No history of diabetes. Currently euglycemic. ICU hyperglycemic protocol HEME - H&H stable, monitor routine CBC ID - Lung abscess status post outpatient treatment with cefepime and Flagyl. He appears to have failed clinically with persistent tachycardia, hemoptysis, and increasing size of the lung abscess on imaging. Bronchoscopy was performed today with repeat cultures. Antibiotics transition to Zosyn. Recommend transfer to a tertiary facility for consideration of IR drainage given failure of outpatient antibiotics as well as formal ID consultation. LINES/IV ACCESS - Peripheral IVs DVT PROPHYLAXIS - SCDs, Lovenox Thank you for allowing us to participate in the care of this patient. Discussed with patient and family at bedside as well as with the admitting hospitalist service. Recommend the patient be transferred to the [facility] in [place]. (2) ALS (amyotrophic lateral sclerosis): (3) Lung abscess: (4) Dependent on ventilator: (5) Respiratory failure: Admission and Anticipated Discharge Date Admission Date: May 05, 2024 Subjective Patient seen and examined. EMR reviewed. Discussed on multidisciplinary rounds and with bedside critical care nurse. For updated at bedside. Patient is been hemodynamically stable. He remains tachycardic. Respiratory suctioned up some blood from his trach early this morning. He underwent bronchoscopy. Please refer to separate findings. Review of Systems Review of Systems: Unreliable due to patient's ALS nonverbal vent dependent state Physical Exam Constitutional: + mechanically ventilated; no acute dist ress Eyes: PERRL, conjunctivae normal, anicteric sclerae ENMT: external ear and nose normal, oropharynx normal Neck: trachea midline, no thyromegaly Respiratory: normal respiratory effort, lungs clear to auscultation Cardiovascular: RRR, no murmur, no edema Heart Sounds: normal S1 and normal S2; no murmur Extremities: + edema Gastrointestinal (Abdomen): Normal bowel sounds, abdomen soft, flat. Tender to palpation in left upper quadrant. Musculoskeletal: Quadriplegic with muscle wasting. Skin: no rashes, warm and dry (Large Tunneling sacral ulcer) Neurologic: PERRLA. Quadriplegic Psychiatric: ANO x 3. Results & Data Results & Data Vital Signs (Past 12 Hours) Vital Signs Temp Pulse Pulse Resp BP Pulse Ox O2 Del Method 05/06/24 08:00 05/06/24 08:00 36.4 C 121 H 14 114/79 100 Mechanical Vent 05/06/24 08:00 117 H 05/06/24 07:00 117 H 14 100 05/06/24 06:00 121 H 14 109/77 100 Mechanical Vent 05/06/24 05:33 36.4 C L 05/06/24 04:00 115 H 14 118/85 05/06/24 04:00 05/06/24 03:11 113 H 15 100 05/06/24 03:00 109 H 14 109/77 05/06/24 03:00 109 H 14 109/77 99 Mechanical Vent 05/06/24 02:44 115 H 05/06/24 02:00 111 H 14 106/74 98 Mechanical Vent 05/06/24 01:00 117 H 14 103/81 98 Mechanical Vent 05/06/24 00:00 121 H 105/76 05/06/24 00:00 05/05/24 23:52 36.0 C L 05/05/24 22:32 114 H 16 100 05/05/24 22:11 116 H 18 105/79 100 Mechanical Vent 05/05/24 22:07 05/05/24 21:00 120 H 18 100/75 100 Mechanical Vent 05/05/24 20:38 Mechanical Vent FiO2 05/06/24 08:00 30 05/06/24 08:00 30 05/06/24 08:00 05/06/24 07:00 30 05/06/24 06:00 30 05/06/24 05:33 05/06/24 04:00 05/06/24 04:00 30 05/06/24 03:11 30 05/06/24 03:00 05/06/24 03:00 30 05/06/24 02:44 05/06/24 02:00 30 05/06/24 01:00 30 05/06/24 00:00 05/06/24 00:00 30 05/05/24 23:52 05/05/24 22:32 30 05/05/24 22:11 30 05/05/24 22:07 30 05/05/24 21:00 05/05/24 20:38 30 Critical Care Results & Data Vital Signs (Past 12 Hours) Vital Signs Temp Pulse Pulse Resp BP Pulse Ox O2 Del Method 05/06/24 08:00 05/06/24 08:00 36.4 C 121 H 14 114/79 100 Mechanical Vent 05/06/24 08:00 117 H 05/06/24 07:00 117 H 14 100 05/06/24 06:00 121 H 14 109/77 100 Mechanical Vent 05/06/24 05:33 36.4 C L 05/06/24 04:00 115 H 14 118/85 05/06/24 04:00 05/06/24 03:11 113 H 15 100 05/06/24 03:00 109 H 14 109/77 05/06/24 03:00 109 H 14 109/77 99 Mechanical Vent 05/06/24 02:44 115 H 05/06/24 02:00 111 H 14 106/74 98 Mechanical Vent 05/06/24 01:00 117 H 14 103/81 98 Mechanical Vent 05/06/24 00:00 121 H 105/76 05/06/24 00:00 05/05/24 23:52 36.0 C L 05/05/24 22:32 114 H 16 100 05/05/24 22:11 116 H 18 105/79 100 Mechanical Vent 05/05/24 22:07 05/05/24 21:00 120 H 18 100/75 100 Mechanical Vent 05/05/24 20:38 Mechanical Vent FiO2 05/06/24 08:00 30 05/06/24 08:00 30 05/06/24 08:00 05/06/24 07:00 30 05/06/24 06:00 30 05/06/24 05:33 05/06/24 04:00 05/06/24 04:00 30 05/06/24 03:11 30 05/06/24 03:00 05/06/24 03:00 30 05/06/24 02:44 05/06/24 02:00 30 05/06/24 01:00 30 05/06/24 00:00 05/06/24 00:00 30 05/05/24 23:52 05/05/24 22:32 30 05/05/24 22:11 30 05/05/24 22:07 30 05/05/24 21:00 05/05/24 20:38 30 Lab & Micro Results (Past 24 Hours) RBC 3.15 M/uL (4.70-6.10) L 05/06/24 WBC 33.76 K/ul (4.8-10.8) H* 05/06/24 Hgb 8.9 g/dl (14.0-18.0) L 05/06/24 Hct 28.7 % (42.0-52.0) L 05/06/24 MCV 91.1 fL (80.0-100.0) 05/06/24 MCH 28.3 pg (25.0-34.0) 05/06/24 MCHC 31.0 g/dL (32.0-36.0) L 05/06/24 RDW Standard Deviation 71.0 fL (36.4-46.3) H 05/06/24 RDW Coefficient of Variation 23.3 % (11.5-14.5) H 05/06/24 Plt Count 496 K/uL (130-400) H 05/06/24 MPV 10.1 fL (9.4-12.4) 05/06/24 Nucleated Red Blood Cells % (auto) 0.2 % 05/06 Nucleated RBC Absolute Count (auto) 0.07 K/uL (0.00-0.12) 0 05/06/24 Neutrophils (%) (Auto) 87.9 % 05/06/24 Lymphocytes (%) (Auto) 6.4 % 05/06/24 Monocytes # (Auto) 1.01 K/uL (0.11-0.59) H 05/06/24 Eosinophils # (Auto) 0.36 K/uL (0.00-0.50) 05/06/24 Immature Granulocyte % (Auto) 1.4 % 05/06/24 Neutrophils # (Auto) 29.70 K/uL (1.40-6.50) H 05/06/24 Lymphocytes # (Auto) 2.17 K/uL (1.20-3.40) 05/06/24 Monocytes # (Auto) 1.01 K/uL (0.11-0.59) H 05/06/24 Eosinophils # (Auto) 0.36 K/uL (0.00-0.50) 05/06/24 Basophils # (Auto) 0.06 K/uL (0.00-0.20) 05/06/24 Immature Granulocyte # (Auto) 0.46 K/uL (0.01-0.20) H 05/06 ANC 33.76 K/uL (1.4-6.5) H 05/05/24 ALC 1.44 K/uL (1.2-3.4) 05/05/24 Neutrophils % (Manual) 94 % 05/05/24 Lymphocytes % (Manual) 4 % 05/05/24 Monocytes % (Manual) 2 % 05/05/24 Neutrophils # (Manual) 33.76 K/uL (1.40-6.50) H 05/05/24 Lymphocytes # (Manual) 1.44 K/uL (1.2-3.4) 05/05/24 Monocytes # (Manual) 0.72 K/uL (0.11-0.59) H 05/05/24 Polychromasia 2+ 05/06/24 Anisocytosis Present 05/06/24 Na 143 mmol/L (136-145) 05/06/24 K 3.6 mmol/L (3.5-5.1) 05/06/24 Cl 113 mmol/L (98-107) H 05/06/24 CO2 20 mmol/L (21-32) L 05/06/24 Anion Gap 10 (3-11) 05/06/24 BUN 34 mg/dl (6-23) H 05/06/24 Creatinine < 0.20 mg/dl (0.6-1.4) L 05/06/24 Estimated GFR ( Amer) > 150.0 ml/min 05/06/24 Estimated GFR (Non-Af Amer) > 150.0 ml/min 05/06/24 BUN/Creatinine Ratio TNP 05/06/24 Glu 110 mg/dl (70-99(Fasting)) H 05/06/24 Ca 6.9 mg/dl (8.6-10.3) L 05/06/24 Phosphorus Level 3.2 mg/dl (2.5-4.9) 05/06/24 Total Bilirubin 0.8 mg/dl (0.2-1.0) 05/06/24 AST 23 U/L (13-39) 05/06/24 ALT 8 U/L (7-52) 05/06/24 Alkaline Phosphatase 319 U/L (34-104) H 05/06/24 TP 6.2 gm/dl (6.0-8.3) 05/06/24 Albumin 2.0 gm/dl (3.4-5.0) L 05/06/24 Globulin 4.2 gm/dl (2.5-4.0) H 05/06/24 Albumin/Globulin Ratio 0.5 (0.9-2) L 05/06/24 Mg 2.1 mg/dl (1.7-2.4) 05/06/24 04:20 Calcium Level 6.9 mg/dl (8.6-10.3) L 05/06/24 04:20 Prothromb Time International Ratio 1.6 (0.9-1.1) H 05/05/24 15 :30 Venous Blood pH 7.39 (7.36-7.41) 05/06/24 04:28 Venous Blood Partial Pressure CO2 35 mmHg (38-50) L 05/06/24 04 :28 Venous Blood Partial Pressure O2 43 mmHg 05/06/24 04:28 Venous Blood HCO3 21 mmol/L 05/06/24 04:28 Venous Blood Base Excess -3.1 mEq/L 05/06/24 04:28 Venous Blood Oxygen Saturation 72.0 % 05/06/24 04:28 Microbiology 05/05/24 Unknown Gram Stain - Final Sputum,Vent Suction Diagnostic Findings (Past 24 Hours) Chest X-Ray 05/05/24 16:28 XR chest 1V portable CLINICAL HISTORY: vent, poss pneumonia COMPARISON STUDY: Chest CT April 18, 2024. Chest radiograph April 22, 2024. FINDINGS: A left PICC is in place. There is no pneumothorax. Small bilateral pleural effusions are present. Cavitary 5.8 cm lingular opacity persists. This was shown on prior chest radiograph and chest CT. There is mild right basilar opacity. No evidence for pulmonary edema. Cardiomediastinal silhouette is stable. IMPRESSION: 1. No significant change in a 5.8 cm cavitary lingular opacity. This favors cavitary pneumonia. Radiographic follow-up to ensure resolution is recommended. 2. Small bilateral pleural effusions. No change in mild right basilar opacity. ACT 112: Negative or not required by law. Electronically signed by: Karl Jacinto M.D. 05/05/2024 5:11 PM Abdomen/Pelvis CT 05/06/24 04:29 CR Exam(s): CT ABDOMEN + PELVIS Without Contrast EXAM: CT Abdomen and Pelvis Without Intravenous Contrast CLINICAL HISTORY: Reason for exam: sepsis, elevated lipase. TECHNIQUE: Axial computed tomography images of the abdomen and pelvis without intravenous contrast. CTDI is 26.14 mGy and DLP is 1575.87 mGy-cm. Automated exposure control was utilized for the study. A dose lowering technique was utilized adhering to the principles of ALARA. COMPARISON: MRCP dated april 19 2024 FINDINGS: Limitations: Limited evaluation in the absence of contrast. Lung bases: Increased size of complex gas and fluid containing mass with dependent complex components within the left lower lobe. This measures approximately 6.0 x 6.9 buy 5.7 cm, previously 4.0 x 3.0 x 4.4 cm. Surrounding airspace disease noted. Findings are favored to be related to worsening cavitary mass. This is favored to be infectious in nature. Consider dedicated imaging of the chest. Dependent consolidation at the lung bases with bronchiectasis. Findings may relate to sequela of chronic infection/aspiration changes. ABDOMEN: Liver: Unremarkable. Gallbladder and bile ducts: Unremarkable. No calcified stones. No ductal dilation. Pancreas: Diffuse enlargement the pancreas with ill-defined stranding and fluid. Findings are consistent with patient's known pancreatitis. Consider follow-up multiphasic imaging and/or MRI if there is further concern. Spleen: Unremarkable. No splenomegaly. Adrenals: Unremarkable. No mass. Kidneys and ureters: No evidence of radiopaque renal calculi or signs of collecting system dilatation. Stomach and bowel: Unremarkable. No obstruction. No mucosal thickening. PELVIS: Appendix: No findings to suggest acute appendicitis. Bladder: [place]la within the bladder. Gas in the bladder dome with bladder wall thickening may relate to cystitis. No stones. Reproductive: Unremarkable as visualized. ABDOMEN and PELVIS: Intraperitoneal space: Moderate volume simple mesenteric ascites. No free air. Bones/joints: Degenerative changes in the spine. No acute fracture. No dislocation. Soft tissues: Unremarkable. Vasculature: Embolization which are noted adjacent to the pancreas. No abdominal aortic aneurysm. Lymph nodes: Unremarkable. No enlarged lymph nodes. Tubes, lines and devices: Gastrojejunostomy tube in situ. Rectal tube in situ. IMPRESSION: 1. Limited evaluation in the absence of contrast. 2. No evidence of radiopaque renal calculi or signs of collecting system dilatation. 3. Increased size of complex gas and fluid containing mass with dependent complex components within the left lower lobe. This measures approximately 6.0 x 6.9 buy 5.7 cm, previously 4.0 x 3.0 x 4.4 cm. Surrounding airspace disease noted. Findings are favored to be related to worsening cavitary mass. This is favored to be infectious in nature. Consider dedicated imaging of the chest. 4. Diffuse enlargement the pancreas with ill-defined stranding and fluid. Findings are consistent with patient's known pancreatitis. Consider follow-up multiphasic imaging and/or MRI if there is further concern. 5. Moderate volume simple mesenteric ascites. 6. Varela within the bladder. Gas in the bladder dome with bladder wall thickening may relate to cystitis. Communications: Verify Receipt Electronically signed by: Lexx Norman MD 05/06/24 08:04 AM I & O Totals 24 Hours 05/05/24 05/06/24 05/07/24 06:59 06:59 06:59 Intake Total 3193.667 / 3193.667 Output Total 925 / 925 Balance 2268.667 / 2268.667 Cumulative 05/05/24 15:03 thru 05/06/24 05:59 Intake Total 3193.667 Output Total 925 Balance 2268.667 RT Ventilator Mngmt (Last Documented) Ventilator Ordered Settings Ventilator Support Mode Assist Control 05/06/24 08:00 Respiratory Rate 14 05/06/24 08:00 Ventilator Tidal Volume 560 05/06/24 08:00 Setting Minute Ventilation 7.8 05/06/24 07:00 Positive End Expiratory 6 05/06/24 08 :00 Pressure Fraction of Inspired Oxygen 30 05/06/24 08:00 Ventilator - PT Measurements Respiratory Rate 14 Exhaled Tidal Volume 558 Minute Ventilation 7.8 Peak Inspiratory Airway 27 Pressure Plateau Pressure 16.2 Respiratory Cycle Inspiratory: 1:3.3 Expiratory Ratio Inspiratory Phase Time 1 End-Tidal CO2 24 Static Lung Compliance 54.71 Dynamic Lung Compliance 26.57 Normal Static Lung Compliance 47.00 Coding Level of Care Code 78882 SUB INP/OBS CARE 3/50MIN Diagnoses Sepsis A41.9 Sepsis acute organ dysfunction status: without acute organ dysfunction Sepsis type: sepsis due to unspecified organism ALS (amyotrophic lateral sclerosis) G12.21 Abscess of lower lobe of left lung without pneumonia J85.2 Pulmonary abscess pneumonia presence: without pneumonia Laterality: left Lung location: lower lobe of lung Dependent on ventilator Z99.11 Respiratory failure J96.90 (1) Sepsis Sepsis acute organ dysfunction status: without acute organ dysfunction Sepsis type: sepsis due to unspecified organism Qualified Code(s): A41.9 - Sepsis, unspecified organism (3) Lung abscess Pulmonary abscess pneumonia presence: without pneumonia Laterality: left Lung location: lower lobe of lung Qualified Code(s): J85.2 - Abscess of lung without pneumonia
[2024-05-06] MEDS: fentaNYL citrate PF 100 MCG/2 ML VIAL IV STA (08:42)
[2024-05-06] MEDS: MIDAZOLAM HCL 5 MG/ML 1 ML VIAL IV STA (08:42)
[2024-05-06] MEDS: PIPERACILLIN/TAZOBACTAM 4.5 GM in DEXTROSE 5% MINI-B 100 ML IV ONE (08:51)
[2024-05-06] MEDS: LACTOBACILLUS ACIDOPHILUS 1 GM PACK PEG SCH (08:53)
--- NOTE | 2024-05-06 08:53 | Procedure Note ---
Procedure Note: Bronchoscopy Procedure Procedure: Fiberoptic bronchoscopy Bronchoalveolar lavage Provider: Hadley Fernandes MD Consent: Verbal consent obtained from the patient prior to commencement of the procedure. Due to ALS and nonverbal state he is unable to sign consent. Risks and benefits were discussed Sedation: 50 mcg fentanyl, 2 mg Versed Indication: Hemoptysis and increasing lung abscess Procedure: Patient was in the ICU on the ventilator due to his chronic ALS. Consent verbally confirmed. After administration of fentanyl and Versed per ICU nurse, the fiberoptic scope was advanced through the tracheostomy via but the Bodai adapter. There were significant bloody secretions present within the trach tube extending into the trachea which were lavaged free. These were thick and tenacious and required removal of the scope and flushing of the working channel. Eventually were able to clear the airways. The trachea was unremarkable. Main dannie was normal. A systematic and sequential examination of the lower airways was conducted. The right mainstem, right upper lobe, bronchus intermedius, right middle lobe, and right lower lobe were unremarkable with mildly inflamed mucosa. The scope was then directed into the left mainstem bronchus which again had bloody secretions which were lavaged free. Once the clots were removed, no active bleeding was identified. There were bloody purulent secretions emanating from the left lower lobe which were lavaged and collected for microbiologic and cytologic analysis. Once the airways were freed, the inspection demonstrated tracheobronchial tree to be widely patent. The bronchoscope was then removed from the airways. The patient tolerated the procedure well without obvious complication. Patient was returned to the recovery room. Impression: 1. Bloody mucopurulent secretions emanating from the left lower lobe status post lavage. Await microbiologic and cytologic analysis [facility] Procedure Codes (Charges) Pulmonary/Thoracic Procedure 1: Pulmonary and Thoracic: 88296 Dx bronchoscopy/wash
[2024-05-06] MEDS ORDERED: [UNRECOGNIZED DRUG - OTHER] OPB SCH (09:00)
--- NOTE | 2024-05-06 09:15 | CT Scan Report ---
CT chest diagnostic wo con CLINICAL HISTORY: Sepsis, pneumonia TECHNIQUE: Multidetector row helical CT of the chest was performed. Coronal and sagittal reformations were obtained. Automated dose lowering techniques and/or adjustment according to patient size were u tilized for this exam. Comparison: Comparison is made to CT chest 04/18/2024 FINDINGS: Lungs and pleura: Previously noted lingular fluid and gas collection measures 6 cm compared to 4 cm o n prior exam. Surrounding consolidation is seen. Atelectasis is seen in the bilateral lower lobes. Tr acheostomy tube is seen. Heart and pericardium: Heart size is normal. No pericardial effusion. Vessels: Unremarkable. Mediastinum and sherry: Unremarkable. Chest wall and lower neck: Unremarkable. Abdomen: For findings below the diaphragm, please refer to CT of the abdomen dated the same. Bones: Unremarkable. IMPRESSION: 1. Interval progression of lingular cavitary pneumonia with surrounding consolidation. 2. Trace left pleural effusion. 3. Continued atelectasis as above. ACT 112: Negative or not required by law. Electronically signed by: Suhas Acevedo M.D. 05/06/2024 9:13 AM
--- OUTSIDE RECORDS SUMMARY | 2024-05-06 10:56 | External Medical Summary | Summary of Care ---
Author Name Unknown Organization [facility] Address [address] [place] [address] Phone [phone] Care Team Providers Care Superintendent [employer] Name Role Phone Lilly Karen CHRISTY Primary Care Provider [phone]- [phone] Encounter Details Date Type Department Care Team (Late st Contact Info) Description 04/21/2024 Orders Only Pulmonary Medicine, [place] [address] [place] [address] Janell Haines MD [address] [place] [address] Allergies Active Allergy Reactions Criticality Noted Date Comments Hydromorphone 10/21/2023 Urine retention Oxycodone 01/29/2022 Other Reaction(s): Hallucinations documented as of this encounter (statuses as of 04/21/2024) Medications Medication Sig Dispensed Refills Start Date End Date Status Ipratropium [facility] (ATROVENT) 0.03 % nasal spray Use 2 squirts each nostril 2-3 times a day for nasal mucous production, post nasal drip 30 mL 11 11/21/2017 Active Additional Information Patient not taking.Informant: Spouse, Reported on 03/09/2024 traMADol HCl 50 MG Oral Tablet Administer 1 Tablet into J tube every 6 hours as needed for Pain. Active Ibuprofen 100 MG/5ML Oral Suspension (Motrin) Administer 20 mL into J tube every 6 hours as needed for Pain, Moderate. Active Acetaminophen 160 MG/5ML Oral Liquid Administer 20 mL into J tube every 6 hours as needed for Pain, Moderate. Active Famotidine 40 MG/5ML Oral Suspension Reconstituted (Pepcid) Administer 2.5 mL into J tube 2 times a day as needed for Indigestion. Active Senna 176 MG/5ML Oral Syrup Administer into J tube 15 mL 2 times a day as needed for Constipation. Active guaiFENesin 100 MG/5ML Oral Liquid (Robitussin) Administer 10 mL into J tube 2 times a day as needed for Cough. Active Sensitive Eyes Saline Solution Instill into both eyes 1 Drop as needed for Dry eyes. Active Melatonin 3 MG Oral Tablet Administer 1-2 Tablets into J tube at bedtime as needed for Sleep. Active Nystatin 568898 UNIT/GM External Powder (Nystop) Apply topically to affected area daily as needed (Rash). Apply to buttocks/groin area. Active Polyethylene Glycol 3350 17 GM/SCOOP Oral Powder Administer 17 g via J-Tube daily as needed for constipation. (Dissolve in 8 oz of liquid). Active Zinc Oxide 20 % External Ointment Apply topically to affected area 3 times a day . Apply to buttocks for bed sores. Active Pagido Standard 1.4 Enteral Liquid 100 mL by Enteral route 5 times a day. 100 ml Bolus feedings 5 times per day Active Carboxymethylcellulos e Sodium 1 % Ophthalmic Solution (Celluvisc) daily as needed. Use as directed. 06/10/2022 Active Petrolatum White Gel 2 times a day as needed for Other. Use as directed 04/23/2023 Active Probiotic (Lactobacillus) Oral Capsule Administer 2 Capsules into J tube daily. 04/23/2023 Active Atropine Sulfate 0.01 % Ophthalmic Solution Place 1 Drop under the tongue 4 times a day as needed. 05/07/2022 Active Midodrine HCl 5 MG Oral Tablet (Proamatine) Take 1 Tablet by mouth in the morning and 1 Tablet at noon and 1 Tablet before bedtime. 06/10/2023 Active Bisacodyl 10 MG Rectal Suppository (Dulcolax) Administer 1 Suppository into the rectum as needed. 10/17/2023 Active Acidophilus 0.5 MG Oral Tablet Take by mouth. Active documented as of this encounter (statuses as of 04/21/2024) Active Problems Problem Noted Date Diagnosed Date [...] as of this encounter (statuses as of 04/21/2024) Resolved Problems Problem Noted Date Diagnosed Date Resolved Date Septic shock 05/27/2022 05/28/2022 HENRI (acute kidney injury) 05/27/2022 documented as of this encounter (statuses as of 04/21/2024) Immunizations Name Administration Dates Next Due Seasonal [...] Yes 05/13/2022 documented as of this encounter Plan of Treatment Upcoming Encounters Date Type Department Care Team (Late st Contact Info) Description 06/08/2024 11:00 AM EDT Office Visit Otolaryngology/Head & Neck/Facial Plastic [facility] [address] [facility] [place] [address] Rony Díaz MD [address] [facility] [place] [address] 06/22/2024 11:00 AM EDT Appointment [place]ventional [place] [facility] [place] [address] [facility] [address] [facility] [place] [id number] Health Maintenance Due Date Last Done Comments HIV Screening 2002 Hepatitis C Screening 2005 GARDASIL-HPV IMMUNIZATION SERIES (2 - Male 3-dose series) 06/09/2012 05/12/2012 Depression Screening 02/17/2015 02/17/2014 COVID-19 Vaccine (1 - 2022- season) 2023 DTaP,Tdap,and Td Vaccines [...] this encounter Medical Devices Implanted Type Area Performing Arts Road Manager Device Identifier Shelf Expiration Date Model / Serial / Lot Coil Emboli Lyn [id number] - [id number] Implanted:Qty: 1 on 05/11/2022 at [facility] [id number] 03/01/2027 [id number] / / [id number] Coil Emboli Lyn [id number] - [id number] Implanted:Qty: 1 on 05/11/2022 at [facility] [id number] 03/01/2027 [id number] / / [id number] Device Vasc Clos Mynx 5fr - [id number] Implanted:Qty: 1 on 05/11/2022 at [facility] [id number] 03/02/2024 [id number] / / [id number] documented as of this encounter Procedures Procedure Name Priority Date/Time Associated Diagnosis Comments CHEMISTRY-OUTSIDE Routine 04/20/2024 OUTSIDE LAB-CORONAVIRUS (COVID-19) Routine 04/19/2024 documented in this encounter Results * (ABNORMAL) CHEMISTRY-OUTSIDE (04/20/2024) Not all results display below - see scan for full detail OUTSIDE LAB (SEE SCANNED REPORT) Comment:SEE SCAN; HEPARIN AN TI XA, POC GLUCOSE, IONIZED CALCIUM, CBCD, CMP, PHOSPHORUS, MG,LIPASE, BLOOD TYPE, AB SCREEN CREATININE-OUTSID E LAB <0.20(L) 0.6 - 1.4 MG/DL OUTSIDE LAB (SEE SCANNED REPORT) EGFR-OUTSIDE LAB >150.0 ML/MIN/1. 73M2 OUTSIDE LAB (SEE SCANNED REPORT) POTASSIUM-OUTSIDE LAB 3.2(L) 3.5 - 5.1 MMOL/L OUTSIDE LAB (SEE SCANNED REPORT) GLUCOSE-OUTSIDE LAB 93 70 - 99 MG/DL OUTSIDE LAB (SEE SCANNED REPORT) HOURS FASTING OUTSID E LAB (SEE SCANNED REPORT) TRIGLYCERIDES-OUT SIDE LAB OUTSIDE LAB (SEE SCANNED REPORT) CHOLESTEROL-OUTSI DE LAB OUTSIDE LAB (SEE SCANNED REPORT) HDL-OUTSIDE LAB OUTS ASHELY LAB (SEE SCANNED REPORT) CHOL/HDL RATIO-OUTSIDE LAB OUTSIDE LA B (SEE SCANNED REPORT) LDL (CALCULATED)-OUTS ASHELY LAB OUTSIDE LAB (SEE SCANNED REPORT) LDL (DIRECT MEASURE)-OUTSIDE LAB OUTSIDE LAB (SEE SCANNED REPORT) HEMOGLOBIN, H5F-UDDTINB LAB OUTSIDE LAB (SEE SCANNED REPORT) PHOSPHORUS-OUTSID E LAB 3.1 2.5 - 4.9 MG/DL OUTSIDE LAB (SEE SCANNED REPORT) PTH-OUTSIDE LAB OUTS ASHELY LAB (SEE SCANNED REPORT) MICROALBUMIN RATIO-OUTSIDE LAB OUTSIDE LA B (SEE SCANNED REPORT) PROTEIN, UA-OUTSIDE LAB OUTSIDE LAB (SEE SCANNED REPORT) HGB 8.5(L) 14.0 - 18.0 G/DL OUTSIDE LAB (SEE SCANNED REPORT) 04/20/2024 History Per Patient LABORATORY OUTSIDE LAB (SEE SCANNED REPORT) * OUTSIDE LAB-CORONAVIRUS (COVID-19) (04/19/2024) Pathologist [facility] [id number] DE LAB NOT DETECTED NOT DETECTED OUTSIDE LAB (SEE SCANNED REPORT) 04/19/2024 History Per Patient LABORATORY OUTSIDE LAB (SEE SCANNED REPORT) documented in this encounter Advance Directives * Full Code (Latest Code Status on File) Date Activated Date Inactivated Comments 06/16/2022 6:14 PM 06/21/2022 3:57 PM Question Answer Comments Discussion of Advance Directives occurred with: Not Discussed Does the patient have a Living Will? No Does the patient have Health Care Power of Attor mila? No * Full Code Date Activated Date Inactivated Comments 05/08/2022 4:43 AM 05/28/2022 9:35 PM This order re flects the patients wishes and were consensually agreed upon. Question Answer Comments Discussion of Advance Directives occurred with: Not Discussed Care Teams Superintendent [employer] Relationship Specialty Start Date End Date Karen Carr CRNP [address] [place] [address] PCP - General Nurse Practitioner 04/03/21 documented as of this encounter
[2024-05-06] MEDS: VANCOMYCIN LEVEL ONE (11:25)
--- NOTE | 2024-05-06 12:11 | Communication Note ---
Date of Service: May 06, 2024 Discussed w/ peripheral vascular tech early in the morning, recommendation was to transfer to tertiary care center for lung abscess/failure of iv antibiotic therapy and need for IR/thoracic Sx eval. Transfer was processed, spoke w/ ETTA at [facility]. He was accepted for transfer. As the process was being carried out, patient changed his mind and wanted to go home on comfort care measures/hospice. I went to the bedside again, spoke w/ patient's , pt and pt's cnc maintenance technician. I explained to patient's in detail what hospice and comfort care status entails including no heart monitoring, no active ventilation support and no active treatment with a more focus on comfort of the patient with medicines like morphine, ativan, glycopyrrolate. Same was communicated to the patient. Pt can understand what is going on and he stated he doesn't want active treatment, wants comfort measures and was asking for "diauttid". Communicated change of patient's preference to transfer center and transfer was cancelled. Communicated same w/ peripheral vascular tech who will coordinate hooking him up back on his home ventilation machine and patient can go to third floor until waiting for transport to home. Case Management has been consulted to facilitate home hospice/comfort care and arrangement of transport back to home. Pt wants to go home w/ comfort measures/hospice. Pt and his family wants to start comfort measures here at hospital while awaiting arrangements for home and they are aware he might pass away anytime once active management is taken off. They were all in agreement and understood the implication.
[2024-05-06] MEDS ORDERED: GLYCOPYRROLATE 0.2 MG/ML VIAL IV PRN (12:22)
[2024-05-06] MEDS ORDERED: LORazepam 0.5 MG TAB PO PRN (12:22)
[2024-05-06] MEDS ORDERED: ONDANSETRON 4 MG OD TAB SL PRN (12:22)
[2024-05-06] MEDS ORDERED: STAT IV Infusion **Titration per Protocol STA (12:22)
[2024-05-06] MEDS ORDERED: MoRPHine SULFATE 2 MG/ML CARP IV PRN (12:22)
[2024-05-06] MEDS ORDERED: LORazepam 0.5 MG in SYRINGE 0.25 ML IV PRN (12:22)
[2024-05-06] MEDS ORDERED: ONDANSETRON INJ 2 MG/ML 2 ML VIAL IV PRN (12:22)
[2024-05-06] MEDS ORDERED: MoRPHine BOLUS from BAG IV PRN (12:22)
--- NOTE | 2024-05-06 12:23 | Pharmacy Report ---
Pharmacy PK ABX Note - Date of Service May 06, 2024 - Assessment and Plan Laboratory Tests 05/05/24 15:30 WBC 35.92 H* Creatinine < 0.20 L Est GFR (Non-Af Amer) > 150.0 Procalcitonin 0.86 H Assessment 05/06: * Day #2 of Vanc. Cefepime/Flagyl was changed to Zosyn so Day #1 of this. * Level returned at 26.8 today which is supratherapeutic. 1100 dose was hung but only ran for ~15 minutes then discontinued. Will order another level for 1800 this evening to assess appropriateness for redose. * Patient is to be transferred to [place] at some point, possibly today. 05/05: 38 year old M receiving IV Vancomycin + Cefepime + Flagyl for treatment of pulmonary infection + abscess + sacral decubitus wound and possible CDiff. WBC 36. Procal 0.86, Afebrile, respiratory PCR negative. Significant PMH of respiratory failure secondary to ALS, tracheostomy with ventilator dependent, aspiration risk, PEG tube placement, on IV Cefepime and enteral Flagyl as outpatient for ongoing lung infection/abscess, followed by [facility]. Plan Vancomycin * Current regimen: 1250 mg IV every 8 hours * Trough level obtained 05/06/24 resulted as 26.8 mcg/mL. This is supratherapeutic. * Ordered another random level for 1800 this evening...will have 2nd shift pharmacist follow up this evening. * If level is less than 20, then start Vancomycin 1250 mg IV every 12 hours as soon as possible after lab results. Predicted AUC at steady state: 539 mg/L.hr Zosyn * 4.5 g IV every 8 hours - remains appropriate Pharmacy will continue to follow and will adjust dose/frequency as necessary. Thank you. Pharmacy has transitioned to AUC monitoring for vancomycin. AUC/ED is the preferred PK/PD target and is associated with decreased risk of nephrotoxicity compared to traditional trough targets.
[2024-05-06] MEDS ORDERED: MoRPHine SULF/NSS 100 MG/100 ML BAG IV SCH (12:30)
[2024-05-06] MEDS ORDERED: PIPERACILLIN/TAZOBACTAM 4.5 GM in DEXTROSE 5% MINI-B 100 ML IV SCH (14:00)
--- NOTE | 2024-05-06 14:09 | Discharge Summary ---
Date of Service May 06, 2024 Admission HPI Per Admitting Provider History was mainly taken from the as the patient is nonverbal. He is a 38 years old white male with significant past medical history of respiratory failure secondary to ALS and is status post tracheostomy with ventil ator dependent, aspiration risk status post PEG tube placement, history of PAF, PSVT and JOSE ALFREDO, chronic systolic heart failure with EF of 45 to 50% as of TTE in 2021, history of pancreatitis/pseudocyst, recently diagnosed diabetes type 2 and chronic anemia apparently has been back from [place] in [place] with intravenous cefepime and enteral Flagyl for ongoing lung infection/abscess. He was initially admitted to [facility] on of last month and was transferred to [facility] in [place] for continued care with severe sepsis, recurrent cholangitis and also lung abscess. He was discharged about 5 days back on IV cefepime and oral Flagyl. He has had a blood test done recently and showed white count to be elevated more than 30,000 and also he has been having tachycardia with a heart rate of 200 1015 at times. He also has increasing abdominal pain and dark diarrheal stool recently. The also noted that the suction from the tracheostomy tube is showing some blood at times. He was brought into [facility] for further evaluation and management. The ER physician did discuss the case with the senior web architect and the patient will be admitted to ICU for continued care. Admission Exam Per Admitting Provider Physical Exam: Lying in bed without any acute distress but looked ill Constitutional: well developed, well nourished and + ill appearing Eyes: PERRL, conjunctivae normal, anicteric sclerae Neck: Tracheostomy tube in site to Respiratory: no respiratory distress Auscultation: + diminished lung sounds (More on the left base than the right) Cardiovascular: Rate/Rhythm: regular rate, regular rhythm and + tachycardic Heart Sounds: normal S1 and normal S2; no murmur Extremities: + edema (Trace edema bilaterally) Gastrointestinal (Abdomen): Inspection/Auscultation: normal bowel sounds (Decreased); abdomen not distended Percussion/Palpation: + abdomen tender (Mil dly tender) and abdomen soft Neurologic: Quadriplegia from ALS. Nonverbal,Communicating through the tablet with visual guidance. Lymphatic: no cervical or axillary lymphadenopathy Principal Diagnosis Sepsis Lung abscess Discharge Exam Physical Exam: Lying in bed without any acute distress but looked ill Constitutional: ill appearing Eyes: PERRL, conjunctivae normal, anicteric sclerae Neck: Tracheostomy tube in situ, connected to ventilation support. Respiratory: no respiratory distress Auscultation: + diminished lung sounds (More on the left base than the right) Cardiovascular: Rate/Rhythm: regular rate, regular rhythm and + tachycardic Heart Sounds: normal S1 and normal S2; no murmur Extremities: + edema (Trace edema bilaterally) Gastrointestinal (Abdomen): Inspection/Auscultation: normal bowel sounds (Decreased); abdomen not distended Percussion/Palpation: + abdomen tender (Mildly tender) and abdomen soft Neurologic: Quadriplegia from ALS. Nonverbal,Communicating through the tablet with visual guidance. Lymphatic: no cervical or axillary lymphadenopathy Discharge Data Allergies Allergy/AdvReac Type Severity Reaction Status Date / Time hydromorphone [From Dilaudid] AdvReac Intermediate makes pt Verified 05/05/24 17:06 retain urine--IF SANTACRUZ IN PLACE PT WILL TAKE MED Consultations 05/05/24 17:41 ED Decision to Admit Stat 05/05/24 18:33 Consult Collar Feller Routine 05/06/24 09:46 Burn CD for patient Stat 05/06/24 13:10 Consult Palliative Care Routine Ordered Studies 05/06/24 04:29 CT Abdomen and Pelvis [CT abd pelvis wo con] Stat CT chest diagnostic wo con Stat Hospital Course (1) Comfort measures only status: Plan per prior attending with addendum: (1) Sepsis: Plan: The patient was transferred to [facility] in [place] with sepsis secondary to lingular abscess and also recurrent biliary pancreatitis He was discharged from the hospital 5 days back on intravenous cefepime and metronidazole through the PEG tube to continue for at least 2 more weeks His recent blood count showed elevated white count of more than 30,000 and he has been having tachycardia and was brought into the emergency room at [facility] He met the sepsis criteria on admission with tachycardia increased white count and also increased lactic acid The sepsis could be secondary to ongoing lung abscess, complicated by sacral decubitus wound and may have C. difficile infection Blood cultures have been taken Started with intravenous vancomycin, cefepime and Metronidazole will be continued. Stool be sent for C. difficile and culture Wound care consultation (2) Lung abscess: Plan: For the cavitary lung lesion in the lingula he was transferred to [facility] in [place] and was advised to have IV antibiotic and oral antibiotic for a total of [address] scan to evaluate for possible drainage/surgery He was [place] from the [place] 5 days back on IV Cefepime and Metronidazole through the PEG Chest x-ray did not reveal any change of the abscess Will continue antibiotic as above (3) ALS (amyotrophic lateral sclerosis): Plan: He is quadriplegic and nonverbal, status post tracheostomy tube on vent Has been having blood-tinged suction from the tracheotomy tube as per the Will admit the patient to ICU Will consult senior web architect (4) Ventilator dependent: (5) History of tracheostomy: (6) Hepatic vein thrombosis: Plan: History of recurrent biliary pancreatitis Was sent into [facility] in [place] No ERCP was done Has history of hepatic vein thrombosis Will continue with Lovenox while he is in this hospital (7) Atrial fibrillation with RVR: Plan: History of A-fib with RVR EKG did show sinus tachycardia of 108 Has been on anticoagulation (8) Hypokalemia: Plan: Noted to be hypokalemic Will replace and monitor DVT prophylaxis Subcu Lovenox CODE STATUS Full-discussed with the patient and the (9) Feeding by G-tube: Plan: Will continue PEG tube feeding Addendum 05/06/2024: Patient was seen and examined, transfer process to [place] at [place] was initiated. See communication note for today. Patient decided to go home with comfort measures only status. Active treatments including iv antibiotics were discontinued after discussion with the patient and his . Patient is being discharged to home. rf manager has been aware to assist with discharge planning. Home Health Attestation I certify that this patient is under my care and that I, or a physicians physician assistant surgery working with me, had a face to-face encounter that meets the home health fras-vh-ypxs encounter requirements with this patient. The encounter with the patient was in whole, or in part, for the following medical condition, which is the primary reason for home health care (list medical condition): I certify that, based on my findings, the following services are medically necessary home health services: My clinical findings support the need for the above services because: Further, I certify that my clinical findings support that this patient is homebound (i.e. absences from home require considerable and taxing effort and are for medical reasons or jew services or infrequently or of short duration when for other reasons) because: Certification for Home Health Services: Based on the above findings, I certify that this patient is confined to the home and needs intermittent group home care, physical therapy and/or speech therapy or continues to need occupational therapy. The patient is under my care, and I have initiated the establishment of the plan of care. This patient will be followed by a physician who will periodically review the plan of care. Total Time Total Time Spent Total Time Spent (In Minutes): 75 Discharge Plan Discharge Items Patient Disposition: Hospice - Home Reason For Visit: SEPSIS,ALS S/P TRACHEOSTOMY AND VENT DEPENDANT,NON Discharge Diagnosis: Lung abscess Sepsis Condition on Discharge: Serious Activity: Resume your previous activity Non-emergency contact: Primary Care Provider Call non-emergency contact if: you have any medication questions Follow-up/Referrals: Mikala Cyr, HR ASSOCIATE [Primary Care Provider] - Diet: Nothing by Mouth Addtl Attending Provider Instructions: you are being discharged to home with hospice/comfort care measures. Your comfort care medications will be sent for few days until hospice providers take over your care. Once they take over, your home medications will be trimmed down as medically appropriate to maitain your comfort status. Santacruz catheter will be maintained at discharged to help w/ comfort care status. Pending Studies at Discharge: Yes Stand-Alone Forms: My [facility] Medications and DC Order Prescriptions: New ondansetron 4 mg Tablet,Disintegrating 4 mg sublingual Q4H PRN (Reason: nausea and vomiting) Qty: 20 0RF morphine concentrate 100 mg/5 mL (20 mg/mL) solution 5 mg PO Q4H PRN (Reason: for pain o respiratory distress) Qty: 30 0RF lorazepam [Ativan] 0.5 mg tablet 0.5 mg sublingual Q4H PRN (Reason: agitation, seizure) Qty: 18 0RF hyoscyamine sulfate [Levsin/SL] 0.125 mg tablet, sublingual 0.125 mg PO Q4H PRN (Reason: dyspepsia, increased secretions) Qty: 18 0RF Continued acetaminophen [Children's Acetaminophen] 160 mg/5 mL Liquid 640 mg feeding tube Q6 PRN (Reason: Pain, Mild) Rx Instructions: administer 20 ml into j=tube zinc oxide 20 % Ointment 1 applic TOPICAL TID PRN (Reason: SORES) Rx Instructions: apply to buttocks for bed sores nystatin 100,000 unit/gram Powder 1 applic TOPICAL BID Rx Instructions: apply to groin atropine 1 % Drops 1 drp sublingual QID PRN (Reason: increased secretions) famotidine 40 mg/5 mL (8 mg/mL) Suspension 20 mg feeding tube BID Rx Instructions: use j-tube midodrine 5 mg Tablet 5 mg feeding tube TID Rx Instructions: administer into j-tub morning,noon and bedtime polyethylene glycol 3350 [Miralax] 17 gram/dose Powder 17 g feeding tube DAILY PRN (Reason: Constipation) Rx Instructions: dissolve into 8 oz of water and administer into j-tube A,D-aloe mgwz-vpxfwqoarf-y.pet Ointment 1 ea TOPICAL BID PRN (Reason: scrotal area) carboxymethylcellulose sodium 0.5 % Drops 1 drp OPB UD PRN (Reason: Dry Eye(S)) Artificial Tears (PF) 0.1-0.3 % Dropperette 1 drp OPB QID PRN (Reason: Dry Eyes) morphine 10 mg/5 mL Solution 5 mg feeding tube Q2H PRN (Reason: Pain) hydrocortisone 2.5 % ointment 1 applic TOPICAL BID PRN (Reason: Itching) Rx Instructions: scrotal area Remedy Phytoplex Z-Guard 57 % Paste 1 ea TOPICAL BID PRN (Reason: protectant) [employer] 1.4 Liquid Vanilla 1 ea G-tube 6XD Rx Instructions: FLUSH WITH 60 ML OF WATER AFTER LIQUID bisacodyl 10 mg Suppository 10 mg [place] DAILY PRN (Reason: Constipation) sodium chloride 0.9 % Solution For Nebulization 3 ml INHALATION QID PRN (Reason: Cough) Balanced Salt Drops 2 drp OPB DAILY Lactobacillus acidophilus Tablet,Chewable 2 tab feeding tube DAILY ciclopirox [Ciclodan] 0.77 % Cream 1 applic topical 3XWK Rx Instructions: tues/thurs/sat ibuprofen 100 mg/5 mL Suspension 200 mg feeding tube TID PRN (Reason: Fever Or Pain) senna leaf extract [senna] 176 mg/5 mL syrup 15 ml feeding tube BID coenzyme Q10 100 mg/5 mL Syrup 10 mg feeding tube DAILY Discharge Orders: Discharge Order (Routine); Ordered 05/06/24 Ordered By: Rl Diego Admission Data Admit Date/Time: 05/05/24 18:33 Attending Provider: Rl Diego Admit Provider: Ivon Bolivar Primary Care Provider: Mikala Cyr Other Providers: Ivon Bolivar; Hadley Fernandes; Diana Vogt; [facility]
== END 2024-05-06 14:28 | disposition hospice, home (50) | DRG 871 ==
LOC: ED 15:13 → 1E 18:33 → SUATTDRO 18:33 → 1E 19:44